=== PATIENT | female | born 1960 | race Caucasian/White ===

== ENCOUNTER → 2020-02-11 12:58 | Outpatient (BNVA) | payer OTHER, SELFPAY | PROVIDERS: PCP Internal Medicine; Referring Provider Internal Medicine; Visit Provider Physician Assistant | DX: S52.531D Colles' fracture of right radius, subsequent encounter for closed fracture with routine healing (principal) | CPT/HCPCS: 99212 ==

== ENCOUNTER 2020-04-19 11:00 | Outpatient (RCR) | payer OTHER, SELFPAY ==
--- NOTE | 2020-04-19 11:58 | MHC.OT.DC ---
[address] [phone] F: [phone] Occupational Therapy Discharge Note Provider: CORWIN KENDALL PA-C Diagnosis: CR RIGHT RADIUS FX Date of Surgery: Date of Evaluation: 04/03/20 Date of Discharge: Treatments to Date: 6 Cancellations to Date: 0 No Shows to Date: 0 Discharge Status: Patient Elected to Stop Discharge Summary: CONT'D LOCKING OF RIGHT MF. Pt HAS A NIGHT OVAL 8 FOR MF PIPJ FLEXION BLOCK. INSTRUCTED TO FOLLOW UP WITH HER PCP. WRIST STIFF SLOW IMPROVEMENT. LOW PAIN OVERALL AT WRIST AND DIGITS. 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
== END 2020-05-22 12:59 | disposition other institution (70) ==
LOC: HO.OT 11:00
PROVIDERS: Visit Provider Physician Assistant
DX: S52.501D Unspecified fracture of the lower end of right radius, subsequent encounter for closed fracture with routine healing (principal)
CPT/HCPCS: 97035; 97110; 97140; 97165

== ENCOUNTER 2020-04-21 11:39 | Emergency (ER) | payer OTHER, SELFPAY ==
--- NOTE | 2020-04-21 | XR_ITS ---
EXAMINATION: XR ELBOW, LEFT CLINICAL INFORMATION: Left elbow pain. COMPARISON: None TECHNIQUE: AP, lateral, and oblique views of the left elbow. FINDINGS: The bones and soft tissues are normal. No fracture or joint effusion. Alignment is anatomic. Joint spaces are maintained. XR/XR elbow LT min 3V IMPRESSION: Unremarkable left elbow.
[2020-04-21 11:52] VITALS: BP 140/86; PULSE 67; RESP 16; TEMP 36.7; O2SAT 99; BMI 34.0
--- NOTE | 2020-04-21 12:38 | ED_ITS ---
HPI - Extremity Problem General Chief complaint: Extremity Injury, Upper Stated complaint: left elbow pain - fall x 3 days Time Seen by Provider: 04/21/20 12:38 History of Present Illness HPI Narrative: Patient complains of left elbow pain after hitting it on a metal bar several days ago, no numbness no weakness or paresthesias no other injury, pain is mild Related Data Home Medications Medication Instructions Recorded Confirmed alendronate 70 mg tablet 70 mg PO QWEEK 02/05/20 02/05/20 amlodipine 10 mg tablet 10 mg PO DAILY 02/05/20 02/05/20 atorvastatin 20 mg tablet 20 mg PO DAILY 02/05/20 02/05/20 cholecalciferol (vitamin D3) 25 25 mcg PO DAILY 02/05/20 02/05/20 mcg (1,000 unit) tablet cholecalciferol (vitamin D3) 50 50 mcg PO DAILY 02/05/20 02/05/20 mcg (2,000 unit) capsule cyanocobalamin (vitamin B-12) 1,000 mcg SUBLINGUAL DAILY 02/05/20 02/05/20 1,000 mcg sublingual tablet empagliflozin 10 mg tablet 10 mg PO DAILY 02/05/20 02/05/20 fluoxetine 20 mg capsule 20 mg PO DAILY 02/05/20 02/05/20 fluoxetine 40 mg capsule mg PO 02/05/20 02/05/20 fluticasone propionate 50 0 mcg INTRANASAL 02/05/20 02/05/20 mcg/actuation nasal spray,suspension furosemide 20 mg tablet 20 mg PO DAILY 02/05/20 02/05/20 gabapentin 400 mg capsule 0 mg PO 02/05/20 02/05/20 insulin glargine U-300 conc 300 12 unit SUBCUT DAILY 02/05/20 02/05/20 unit/mL (1.5 mL) subcutaneous pen lancets 28 gauge #100 ea 02/05/20 02/05/20 lisinopril 40 mg tablet 40 mg PO DAILY 02/05/20 02/05/20 metoprolol succinate 100 mg 100 mg PO DAILY 02/05/20 02/05/20 tablet,extended release 24 hr naproxen 500 mg tablet 500 mg PO Q12H PRN 02/05/20 02/05/20 omeprazole 20 mg capsule,delayed 20 mg PO DAILY 10/03/20 10/03/20 release oxycodone-acetaminophen 5 mg-325 0 tab PO 02/05/20 02/05/20 mg tablet sitagliptin 50 mg-metformin ER 0 tab PO 02/05/20 02/05/20 1,000 mg tablet,extended release 24h mp trazodone 50 mg tablet 50 mg PO BEDTIME 02/05/20 02/05/20 Previous Rx's Medication Instructions Recorded empagliflozin 12.5 mg-metformin ER 2 tab PO DAILY 30 Days #60 ea 02/09/20 1,000 mg tablet,extended rel 24 hr dulaglutide 1.5 mg/0.5 mL 1.5 mg SUBCUT QWEEK #2 ml 04/03/20 subcutaneous pen injector Allergies Allergy/AdvReac Type Severity Reaction Status Date / Time latex [LATEX] Allergy Mild RASH Verified 02/11/20 13:05 Latex Exam Gloves Allergy Unknown Rash Uncoded 02/05/20 11:34 Review of Systems Review of Systems: Positive for left elbow pain Negatives no dizziness no weakness no fainting no numbness weakness paresthesia no chest pain no headache no neck pain Yes all other systems are reviewed and are negative [facility] Past Medical History Source: nursing notes reviewed Medical History (Updated 04/21/20 @ 13:21 by MADAN Wilson) Chronic kidney disease Diabetes type 2, uncontrolled HTN (hypertension) Surgical History History of carpal tunnel release (~2017) History of section History of total left knee replacement (~2018) History of total left knee replacement (~2010) Hx of cholecystectomy Family History Family History Father Hypertension Diabetes Mother Diabetes Hypertension Heart disease Social History Social History Alcohol intake: never Smoking Status: Never smoker Use of substances other than those prescribed or required for medical reasons: No Advance Directives: No Advance Directives Information Provided: Yes Physical Exam Vital Signs: Vital Signs: Last Vital Signs Temp 98.1 F 04/21/20 11:52 Pulse 67 04/21/20 11:52 Resp 16 04/21/20 11:52 BP 140/86 H 04/21/20 11:52 Pulse Ox 99 04/21/20 11:52 Body Mass Index 34.0 General appearance no distress Normocephalic atraumatic Neck is supple nontender Respiratory no distress Left arm had tenderness with some mild swelling on the dorsal left elbow olecranon area, there is full range of motion, skin is intact there is no redness no warmth and neurovascular intact Skin no rashes Neuro no focal deficit Course Course Course Narrative: Left elbow x-ray is negative and patient is discharged Discharge Plan Discharge Clinical Impression: Contusion of elbow, left Qualifiers: Encounter type: initial encounter Qualified Code(s): S50.02XA - Contusion of left elbow, initial encounter Patient Disposition: Home, Self-Care Additional Instructions: X-ray of the left elbow was normal, should get better on its own in a few days If needed if not getting better follow with orthopedist or your doctor Prescriptions: No Action Synjardy XR 12.5-1,000 mg tablet, IR - ER, biphasic 24hr 2 tab PO DAILY 30 Days Qty: 60 RF: 4 dulaglutide [Trulicity] 1.5 mg/0.5 mL pen injector 1.5 mg subcut QWEEK Qty: 2 RF: 6 fluoxetine 40 mg capsule PO RF: 0 furosemide 20 mg tablet 20 mg PO DAILY RF: 0 Toujeo SoloStar U-300 Insulin 300 unit/mL (1.5 mL) insulin pen 12 unit subcut DAILY RF: 0 cholecalciferol (vitamin D3) 50 mcg (2,000 unit) capsule 50 mcg PO DAILY RF: 0 fluoxetine 20 mg capsule 20 mg PO DAILY RF: 0 cyanocobalamin (vitamin B-12) 1,000 mcg tablet, sublingual 1,000 mcg sublingual DAILY RF: 0 metoprolol succinate 100 mg tablet extended release 24 hr 100 mg PO DAILY RF: 0 Jardiance 10 mg tablet 10 mg PO DAILY RF: 0 Janumet XR 50-1,000 mg tablet, ER multiphase 24 hr 0 tab PO RF: 0 cholecalciferol (vitamin D3) 25 mcg (1,000 unit) tablet 25 mcg PO DAILY RF: 0 fluticasone propionate 50 mcg/actuation spray,suspension 0 mcg intranasal RF: 0 lisinopril 40 mg tablet 40 mg PO DAILY RF: 0 amlodipine 10 mg tablet 10 mg PO DAILY RF: 0 gabapentin 400 mg capsule 0 mg PO RF: 0 alendronate 70 mg tablet 70 mg PO QWEEK RF: 0 trazodone 50 mg tablet 50 mg PO BEDTIME RF: 0 atorvastatin 20 mg tablet 20 mg PO DAILY RF: 0 naproxen 500 mg tablet 500 mg PO Q12H PRN (Reason: pain) RF: 0 oxycodone-acetaminophen 5-325 mg tablet 0 tab PO RF: 0 (DME) lancets 28 gauge misc See Rx Instructions ea topical .MEDSUPPLY Qty: 100 RF: 0 omeprazole 20 mg capsule,delayed release(DR/EC) 20 mg PO DAILY RF: 0 Referrals: InstrJayden don MD [Physician] - 2 days (Left elbow pain)
== END 2020-04-21 13:38 | disposition home or self-care (01) ==
PROVIDERS: Emergency Provider Emergency Medicine Emergency Medical Services; PCP Internal Medicine
DX: S50.02XA Contusion of left elbow, initial encounter (principal); W22.09XA Striking against other stationary object, initial encounter; Y93.9 Activity, unspecified; Y92.9 Unspecified place or not applicable; Y99.9 Unspecified external cause status; E11.22 Type 2 diabetes mellitus with diabetic chronic kidney disease; I12.9 Hypertensive chronic kidney disease with stage 1 through stage 4 chronic kidney disease, or unspecified chronic kidney disease; N18.9 Chronic kidney disease, unspecified; Z79.4 Long term (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 insulin; Z79.899 Other long term (current) drug therapy
CPT/HCPCS: 73080; 99283

== ENCOUNTER 2020-05-09 12:43 | Outpatient (REF) | payer OTHER, SELFPAY ==
--- NOTE | 2020-05-09 | US_ITS ---
EXAMINATION: US THYROID CLINICAL INFORMATION: Nontoxic multinodular goiter. COMPARISON: Ultrasound thyroid soft tissue 03/16/2019. TECHNIQUE: Linear transducer porter-scale and color Doppler examination with attention to the region of the thyroid. FINDINGS: SIZE: Measurements of the thyroid lobes and nodules are given in sagittal, anteroposterior and transverse dimensions respectively. Right Thyroid Lobe: 6.1 x 2.1 x 2.3 cm, volume 15.4 mL. Previously 6.2 x 2.4 x 2.4 cm, volume 18.7 mL. Parenchyma: The gland echotexture is homogeneous. Thyroid vascularity is normal. Left Thyroid Lobe: 6.0 x 2.1 x 2.8 cm, volume 17.9 mL. Previously 6.2 x 1.8 x 2.6 cm, volume 15.2 mL. Parenchyma: The gland echotexture is homogeneous. Thyroid vascularity is normal. Isthmus: 0.4 cm in maximum AP dimension. Previously 0.3 cm. RIGHT THYROID LOBE: There are 4 nodules seen. 1. Location: Upper Size: 0.6 x 0.3 x 0.5 cm. Previous: 0.6 x 0.3 x 0.5 cm. Nodule characteristics: Hypoechoic, smoothly marginated with no intranodular flow, likely simple cyst. 2. Location: Mid Size: 1.3 x 0.7 x 1.3 cm. Previous: 1.4 x 1.0 x 1.6 cm. Nodule characteristics: Hypoechoic, smoothly marginated with intranodular flow, likely complex cyst. 3. Location: Mid Size: 1.0 x 0.9 x 0.9 cm. Previous: 1.5 x 1.2 x 1.7 cm. Nodule characteristics: Hypoechoic, irregular margins with no intranodular flow. 4. Location: Lower Size: 0.7 x 0.6 x 0.6 cm. Previous: 0.6 x 0.5 x 0.6 cm. Nodule characteristics: Heterogenous, irregular margins and no intranodular flow. ISTHMUS: No nodules. LEFT THYROID LOBE: There are 4 nodules seen. 1. Location: Upper Size: 0.8 x 0.5 x 0.5 cm. Previous: 1.0 x 0.5 x 0.7 cm. Nodule characteristics: Heterogeneous, irregular margins with no calcification and no intranodular flow. 2. Location: Upper Size: 2.2 x 1.0 x 1.8 cm. Previous: 1.4 x 0.8 x 1.2 cm. Nodule characteristics: Hypoechoic irregular margins with intranodular flow. 3. Location: Upper Size: 1.0 x 0.5 x 0.8 cm. Previous: None Nodule characteristics: Hypoechoic, irregular shaped with macrocalcifications and intranodular flow. 4. Location: Mid Size: 0.4 x 0.3 x 0.4 cm. Previous: None Nodule characteristics: Hypoechoic, irregular shaped with no intranodular flow. NODES: No lymphadenopathy is seen in the tissue surrounding the thyroid gland. US/US thyroid IMPRESSION: Multinodular thyroid goiter. Complex nodule measuring 2.2 cm in the upper pole right thyroid lobe has slightly increased since the last exam 03/16/2019. It has appearance of complex cyst with central septations. Nodule in the midpole right thyroid lobe has decreased in size from 1.5 cm to 1.0 cm. The rest of the nodules are stable. Recommend continued annual followup.
== END 2020-05-09 12:44 | disposition home or self-care (01) ==
LOC: HO.US 12:43
PROVIDERS: Visit Provider Internal Medicine Endocrinology, Diabetes & Metabolism
DX: E04.2 Nontoxic multinodular goiter (principal)
CPT/HCPCS: 76536

== ENCOUNTER 2020-05-22 13:22 | Outpatient (REF) | payer OTHER, SELFPAY ==
--- NOTE | 2020-05-22 13:25 | US_ITS ---
EXAMINATION: US RETROPERITONEAL LIMITED (RENAL ONLY) CLINICAL INFORMATION: Hematuria, history of stones. COMPARISON: None TECHNIQUE: Real-time imaging of the kidneys. FINDINGS: RIGHT KIDNEY: 10.1 x 4.9 x 5.6 cm (SAG x AP x TRV). The kidney is normal in size, contour, and echogenicity. Renal cortical thickness is normal. No renal calculi or hydronephrosis. There are 2 anechoic cysts seen. The upper pole cyst measures 4.3 x 3.8 x 3.8 cm and a lower pole cyst measures 7.1 x 8.0 x 8.1 cm. There is mild fullness of right kidney. LEFT KIDNEY: 11.7 x 6.0 x 5.3 cm (SAG x AP x TRV). The kidney is normal in size, contour, and echogenicity. Renal cortical thickness is normal. No renal calculi or hydronephrosis. There is a complex upper pole cyst measuring 6.6 x 5.1 x 6.1 cm, a simple upper pole cyst measuring 1.7 x 1.3 x 1.4 cm and a lower pole cyst measuring 3.2 x 3.1 x 3.4 cm. US/US renal BI IMPRESSION: Bilateral renal cysts. There is a complex upper pole left renal cyst. There are no echogenic calculi or hydronephrosis.
== END 2020-05-22 13:23 | disposition home or self-care (01) ==
LOC: HO.US 13:22
PROVIDERS: Visit Provider Physician Assistant
DX: N17.9 Acute kidney failure, unspecified (principal); R31.9 Hematuria, unspecified
CPT/HCPCS: 76775

== ENCOUNTER 2020-07-19 | Outpatient (REF) | payer OTHER, SELFPAY ==
[2020-07-19 11:36] LABS: Glucose, Whole Blood 196 mg/dL (60-115)
[2020-07-19 13:21] LABS: Alanine Aminotransferase 15 U/L (0-31); Albumin Level 4.6 g/dL (3.5-5.0); Alkaline Phosphatase 105 U/L (39-117); Anion Gap 13 (12-20); Aspartate Amino Transferase 13 U/L (5-31); Bilirubin Total 0.5 mg/dL (0.0-1.0); Blood Urea Nitrogen 14 mg/dL (9-16); Calcium 9.7 mg/dL (8.4-10.2); Carbon Dioxide 29 mmol/L (22-29); Chloride 106 mmol/L (96-108); Creatinine Clr Calc Pharmacy 50.3; Estimated Glomerular Filt Rate 45; Glucose Fasting 174 mg/dL (60-99); Potassium 4.2 mmol/L (3.3-5.1); Sodium 144 mmol/L (135-145); Total Protein 7.5 g/dL (6.5-8.0)
[2020-07-19 14:28] LABS: Vitamin B12 215 pg/mL (200-900)
[2020-07-20 13:16] LABS: LDL Cholesterol Direct 116 mg/dL (<100)
[2020-07-24 11:18] LABS: Immunoglobulin A 209
[2020-07-24 11:22] LABS: Transglutaminase Ab IgG 1
[2020-07-27 11:49] LABS: Endomysial IgA Antibody NEGATIVE
== END 2020-07-19 00:01 | disposition home or self-care (01) ==
LOC: HO.LAB
PROVIDERS: Visit Provider Internal Medicine Endocrinology, Diabetes & Metabolism
DX: E11.65 Type 2 diabetes mellitus with hyperglycemia (principal)
CPT/HCPCS: 36415; 80053; 81382; 82306; 82607; 82784; 82947; 83516; 83721; 86255; 86256

== ENCOUNTER → 2020-07-19 10:50 | Outpatient (BNVA) | payer OTHER, SELFPAY | PROVIDERS: PCP Internal Medicine; Visit Provider Internal Medicine Endocrinology, Diabetes & Metabolism | DX: E11.65 Type 2 diabetes mellitus with hyperglycemia (principal); E11.42 Type 2 diabetes mellitus with diabetic polyneuropathy; Z79.4 Long term (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 insulin; E78.5 Hyperlipidemia, unspecified; E04.2 Nontoxic multinodular goiter; E66.9 Obesity, unspecified; E53.8 Deficiency of other specified B group vitamins; I10 Essential (primary) hypertension | CPT/HCPCS: 36415; 80053; 82947; 99212 ==

== ENCOUNTER → 2020-08-09 11:22 | Outpatient (BNVA) | payer OTHER, SELFPAY | PROVIDERS: PCP Internal Medicine; Visit Provider Internal Medicine Endocrinology, Diabetes & Metabolism | DX: Z13.89 Encounter for screening for other disorder (principal) | CPT/HCPCS: Q3014 ==

== ENCOUNTER 2020-08-10 08:17 | Outpatient (REF) | payer OTHER, SELFPAY ==
--- NOTE | 2020-08-10 09:07 | P.BOP_ITS ---
Brief Operative Note Date of Service: 08/10/20 Pre-op diagnosis: NONTOXIC MULTINODULAR GOITER Post-op diagnosis: same Procedure: This procedure was explained to the patient. Alternatives, risks and benefits were discussed. Written consent was obtained. After sterile preparation of the skin, fine-needle aspiration biopsy of left mid to upper pole thyroid nodule size 2.2 x 1.0 x 1.8 cm was performed under direct ultrasound guidance to confirm accurate needle placement. Two initial passes were performed with 25 gauge needles. 1 mL of dark chocolate like color was aspirated, the nodule decreased in size significantly. Two extra passes with 27 gauge needles were performed. Sample was submitted to cytology, initial cytology reading was adequate. 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 Patient tolerated procedure well. Aftercare instructions were provided. Impression: uncomplicated fine-needle aspiration biopsy of left mid to upper pole thyroid nodule under direct ultrasound guidance. Surgeon: Ney Grayson MD Anesthesia: local (Lidocaine 1 % 1 ml) Estimated blood loss (mL): 0 Condition: stable Disposition: same day
[2020-08-10] MEDS: Lidocaine HCl 1 % MPF 5 ML VIAL SUBCUT (09:19)
== END 2020-08-10 08:18 | disposition home or self-care (01) ==
LOC: HO.US 08:17
PROVIDERS: Visit Provider Internal Medicine Endocrinology, Diabetes & Metabolism
DX: E04.2 Nontoxic multinodular goiter (principal)
CPT/HCPCS: 10005; 88172; 88173; 88177; 88305

== ENCOUNTER → 2020-08-22 07:59 | Outpatient (BNVA) | payer OTHER, SELFPAY | PROVIDERS: PCP Internal Medicine; Visit Provider Surgery | DX: Z01.818 Encounter for other preprocedural examination (principal); E66.9 Obesity, unspecified; R06.02 Shortness of breath; Z68.36 Body mass index [BMI] 36.0-36.9, adult | CPT/HCPCS: 99212 ==

== ENCOUNTER 2020-08-23 08:10 | Outpatient (REF) | payer OTHER, SELFPAY ==
--- NOTE | ~2020-08-23 | XR_ITS ---
EXAMINATION: XR CHEST CLINICAL INFORMATION: Shortness of breath COMPARISON: Chest 04/14/2018 TECHNIQUE: 2 views of the chest were obtained. FINDINGS: The lungs are hypoexpanded but clear of acute pneumonic process. Heart size and vascularity is normal. No gross bony abnormality seen. XR/XR chest 2V IMPRESSION: Normal chest exam. No major change from 08/23/2020
--- NOTE | 2020-08-23 08:18 | ECG_ITS ---
Test Reason : SOB Blood Pressure : / mmHG Vent. Rate : 065 BPM Atrial Rate : 065 BPM P-R Int : 146 ms QRS Dur : 088 ms QT Int : 428 ms P-R-T Axes : 054 -08 021 degrees QTc Int : 445 ms Normal sinus rhythm Normal ECG When compared with ECG of 14-APR-2018 10:08, No significant change was found Referred By: Shalonda Lockwood Electronically Signed By:Beck Amaya
[2020-08-23 08:50] LABS: MANUAL DIFF FLAG NO
[2020-08-23 08:53] LABS: Basophils Absolute Auto 0.1 X10*3/uL (0.0-0.2); Basophils Percent Auto 0.6 % (0-2); Eosinophils Absolute Auto 0.3 X10*3/uL (0.0-0.4); Eosinophils Percent Auto 3.7 % (0-4); Hematocrit 41.9 % (37-47); Hemoglobin 13.3 g/dl (12.0-16.0); Imm Gran Abs Auto 0.03 X10*3/uL (0.00-0.03); Imm Gran Pct Auto 0.3 % (0.0-0.4); Lymphocytes Percent Auto 21.6 % (20-40); Mean Corpuscular HGB Conc 31.7 g/dl (31.0-35.0); Mean Corpuscular Hemoglobin 27.4 pg (27.0-33.0); Mean Corpuscular Volume 86.2 fL (80-98); Mean Platelet Volume 12.3 fL (9.4-12.3); Monocytes Percent Auto 10.7 % (2-11); Neutrophils Absolute Auto 5.7 X10*3/uL (2.0-8.3); Neutrophils Percent Auto 63.1 % (45-73); Platelet Count 231 X10*3/uL (160-400); Red Blood Count 4.86 X10*6/uL (4.20-5.50)
[2020-08-23 09:21] LABS: Alanine Aminotransferase 15 U/L (0-31); Albumin Level 4.5 g/dL (3.5-5.0); Alkaline Phosphatase 98 U/L (39-117); Anion Gap 16 (12-20); Aspartate Amino Transferase 11 U/L (5-31); Bilirubin Total 0.8 mg/dL (0.0-1.0); Blood Urea Nitrogen 18 mg/dL (9-16); C Reactive Protein 0.14 mg/dL (< or = 0.50); Calcium 9.6 mg/dL (8.4-10.2); Carbon Dioxide 24 mmol/L (22-29); Chloride 108 mmol/L (96-108); Cholesterol 156 mg/dL; Estimated Glomerular Filt Rate 44; Glucose Fasting 170 mg/dL (60-99); HDL Cholesterol 44 mg/dL; Iron 52 mcg/dL (30-160); LDL Cholesterol Calculated 76 mg/dl; Percent Iron Saturation 13 % (15-50); Potassium 4.2 mmol/L (3.3-5.1); Sodium 144 mmol/L (135-145); Total Iron Binding Capacity 391 mcg/dL (228-428); Total Protein 7.2 g/dL (6.5-8.0); Triglycerides 181 mg/dL; Unsaturated Iron Binding 339 ug/dL
[2020-08-23 09:33] LABS: Estimated Average Glucose 163 mg/dL; Hemoglobin A1c % 7.3 %
[2020-08-23 09:41] LABS: Vitamin D 25-OH Total 39.5 ng/mL (>30)
[2020-08-23 10:05] LABS: Vitamin B12 380 pg/mL (200-900)
[2020-08-25 13:46] LABS: Calcium (PTHI) 9.7 mg/dL (8.6-10.4); PTHI 60 pg/mL (14-64)
[2020-08-26 07:02] LABS: Zinc 103 mcg/dL (60-130)
[2020-08-27 12:01] LABS: Vitamin B1 11 nmol/L (8-30)
[2020-08-28 14:57] LABS: Vitamin A 86 mcg/dL (38-98)
== END 2020-08-23 08:11 | disposition home or self-care (01) ==
LOC: HO.LAB 08:10
PROVIDERS: PCP Internal Medicine; Visit Provider Surgery
DX: Z01.818 Encounter for other preprocedural examination (principal); R06.02 Shortness of breath; K91.2 Postsurgical malabsorption, not elsewhere classified; Z90.3 Acquired absence of stomach [part of]
CPT/HCPCS: 36415; 71046; 80053; 80061; 82306; 82607; 83036; 83540; 83970; 84425; 84443; 84590; 84630; 85025; 86140; 93005

== ENCOUNTER → 2020-08-28 12:32 | Outpatient (BNVA) | payer OTHER, SELFPAY | PROVIDERS: PCP Internal Medicine; Visit Provider Internal Medicine Endocrinology, Diabetes & Metabolism | DX: E11.65 Type 2 diabetes mellitus with hyperglycemia (principal); E11.42 Type 2 diabetes mellitus with diabetic polyneuropathy; Z79.4 Long term (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 insulin; E78.5 Hyperlipidemia, unspecified; E04.2 Nontoxic multinodular goiter; E66.9 Obesity, unspecified; E53.8 Deficiency of other specified B group vitamins | CPT/HCPCS: 99212 ==

== ENCOUNTER → 2020-09-05 08:05 | Outpatient (BNVA) | payer OTHER, SELFPAY | PROVIDERS: PCP Internal Medicine; Visit Provider Surgery ==

== ENCOUNTER → 2020-09-07 08:11 | Outpatient (BNVA) | payer OTHER, SELFPAY | PROVIDERS: PCP Internal Medicine; Visit Provider Surgery ==

== ENCOUNTER → 2020-09-11 14:47 | Outpatient (BNVA) | payer OTHER, SELFPAY | PROVIDERS: PCP Internal Medicine; Visit Provider Surgery | DX: E66.9 Obesity, unspecified (principal); Z68.35 Body mass index [BMI] 35.0-35.9, adult; Z71.3 Dietary counseling and surveillance | CPT/HCPCS: 99212 ==

== ENCOUNTER → 2020-09-19 09:39 | Outpatient (BNVA) | payer OTHER, SELFPAY | PROVIDERS: PCP Internal Medicine; Visit Provider Dietitian, Registered | DX: E66.9 Obesity, unspecified (principal); Z68.35 Body mass index [BMI] 35.0-35.9, adult | CPT/HCPCS: 97802 ==

== ENCOUNTER 2020-09-20 08:03 | Outpatient (REF) | payer OTHER, SELFPAY ==
[2020-09-21 13:57] LABS: H Pylori Breath Test NOT DETECTED (NOT DETECTED)
== END 2020-09-20 08:04 | disposition home or self-care (01) ==
LOC: HO.LNP 08:03
PROVIDERS: Surgery; PCP Internal Medicine; Visit Provider Physician Assistant
DX: Z01.818 Encounter for other preprocedural examination (principal)
CPT/HCPCS: 83013; 99211

== ENCOUNTER → 2020-09-29 08:50 | Outpatient (BNVA) | payer OTHER, SELFPAY | PROVIDERS: PCP Internal Medicine; Visit Provider Physician Assistant | DX: E66.9 Obesity, unspecified (principal); Z68.34 Body mass index [BMI] 34.0-34.9, adult; Z71.3 Dietary counseling and surveillance | CPT/HCPCS: Q3014 ==

== ENCOUNTER → 2020-10-12 12:14 | Outpatient (BNVA) | payer OTHER, SELFPAY | PROVIDERS: PCP Internal Medicine; Visit Provider Physician Assistant ==

== ENCOUNTER 2020-10-27 12:46 | Emergency (ER) | payer OTHER, SELFPAY ==
--- NOTE | ~2020-10-27 | XR_ITS ---
EXAMINATION: XR FOOT, RIGHT CLINICAL INFORMATION: Pain. Trauma. COMPARISON: None TECHNIQUE: AP, lateral, and oblique views of the right foot. FINDINGS: There is question of a nondisplaced fracture through the proximal phalanx of the fifth toe. No other fracture is seen. Joint spaces are normal. There is a small soft tissue calcification or ossification adjacent to the lateral proximal phalanx of the fifth toe. There are calcaneal spurs. XR/XR foot RT min 3V IMPRESSION: Question nondisplaced fracture through the proximal phalanx of the fifth toe.
[2020-10-27 13:17] VITALS: BP 144/85; PULSE 78; RESP 16; TEMP 36.4; O2SAT 100; BMI 34.0
--- NOTE | 2020-10-27 13:54 | ED_ITS ---
HPI - Extremity Injury (Lower) General Chief Complaint: Extremity Injury, Lower Stated Complaint: TOE INJ Time Seen by Provider: 10/27/20 13:54 Source: patient and family Mode of arrival: ambulatory Limitations: no limitations History of Present Illness HPI Narrative: 60 y/o female presenting with right pinky toe and lateral foot pain after she accidentally kicked a chair this morning. Pain is worse with palpation and when walking. No ankle injury. No lacerations or abrasions. She denies numbness or tingling. Minimal pain when at rest, only with movement of touching it. complaint: foot injury Onset (ago): hour(s) Injury: Right: foot and toes Type of Injury: blunt Place: home Severity: moderate Relieving factors: immobilization and rest Exacerbating factors: weight bearing, movement and palpation Context: direct blow Associated symptoms: able to partially bear weight Other symptoms: none Treatments prior to arrival: cold therapy Related Data Home Medications Medication Instructions Recorded Confirmed alendronate 70 mg tablet 70 mg PO QWEEK 02/05/20 09/11/20 amlodipine 10 mg tablet 10 mg PO DAILY 02/05/20 09/11/20 atorvastatin 20 mg tablet 20 mg PO DAILY 02/05/20 09/11/20 fluoxetine 20 mg capsule 20 mg PO DAILY 02/05/20 09/11/20 furosemide 20 mg tablet 20 mg PO DAILY 02/05/20 09/11/20 lisinopril 40 mg tablet 40 mg PO DAILY 02/05/20 09/11/20 metoprolol succinate 100 mg 100 mg PO DAILY 02/05/20 09/11/20 tablet,extended release 24 hr naproxen 500 mg tablet 500 mg PO Q12H PRN 02/05/20 09/11/20 omeprazole 20 mg capsule,delayed 20 mg PO DAILY 02/05/20 09/11/20 release trazodone 50 mg tablet 50 mg PO BEDTIME 02/05/20 09/11/20 fluticasone propionate 50 1 spray INTRANASAL PRN g 07/19/20 09/11/20 mcg/actuation nasal spray,suspension gabapentin 400 mg capsule 400 mg PO DAILY cap 07/19/20 09/11/20 lorazepam 0.5 mg tablet 0.5 mg PO DAILY PRN 07/19/20 09/11/20 oxycodone-acetaminophen 5 mg-325 1 tab PO Q6H PRN tab 08/22/20 09/11/20 mg tablet Previous Rx's Medication Instructions Recorded cholecalciferol (vitamin D3) 50 50 mcg PO DAILY #30 cap 08/28/20 mcg (2,000 unit) capsule cyanocobalamin (vitamin B-12) 1,000 mcg SUBLINGUAL DAILY 30 Days 08/28/20 1,000 mcg sublingual tablet #30 tab dulaglutide 1.5 mg/0.5 mL 1.5 mg SUBCUT QWEEK #2 ml 08/28/20 subcutaneous pen injector empagliflozin 12.5 mg-metformin ER 2 tab PO DAILY 30 Days #60 ea 08/28/20 1,000 mg tablet,extended rel 24 hr insulin glargine U-300 conc 300 12 unit SUBCUT DAILY 30 Days #1.5 08/28/20 unit/mL (1.5 mL) subcutaneous pen ml lancets 28 gauge #100 ea 08/28/20 Allergies Allergy/AdvReac Type Severity Reaction Status Date / Time latex [LATEX] Allergy Mild RASH Verified 09/11/20 15:53 Latex Exam Gloves Allergy Unknown Rash Uncoded 09/11/20 15:53 Review of Systems Review of Systems: Constitutional: No Fever, No Chills Musculoskeletal: + joint pain, No Myalgias Skin: No Skin Lesions, No rash Neuro: No Weakness, No Numbness Heme/Lymph: No Bruising PMFSH Past Medical History Attestation statement: The following information was validated with the patient. 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 Sister No problems noted. Brother Hypertension Diabetes Brother No problems noted. Son Hypertension Prediabetes Heart disease Daughter Prediabetes Social History Social History (Updated 09/11/20 @ 15:54 by Shalonda Lockwood MD) Alcohol intake: never Advance Directives: Yes Advance Directives Information Provided: Yes Advance Directives on File: No Patient : No Physical Exam Vital Signs: Vital Signs: Last Vital Signs Temp 97.5 F 10/27/20 13:17 Pulse 78 10/27/20 13:17 Resp 16 10/27/20 13:17 BP 144/85 H 10/27/20 13:17 Pulse Ox 100 10/27/20 13:17 Body Mass Index 34.0 Appearance: Alert. Oriented X3. No acute distress. HEENT: normal inspection CVS: Normal heart rate and rhythm. Pulses normal. Respiratory: No respiratory distress. Skin: Skin warm and dry. Normal skin color. Normal skin turgor. No rashes. Extremities: normal inspection of right foot, tenderness to tarsal of 5th digit. pain with movement of 5th digit. able to move all toes against gravity. NV intact distally. no point tenderness or deformity appreciated. no skin changes or abrasions Neuro: Oriented X 3. No motor deficit. No sensory deficit. Course Course Course Narrative: 60 y/o female presenting with right 5ht toe and distal lateral foot pain s/p kicking a chair. XR show possible nondisplaced proximal phalanx fracture of 5th toe. Placed in ANDERSON wrap and post-op boot for support. Recommend rest, ice, WBAT, and f/u with Ortho. Patient agrees with plan. Stable for d/c home. Critical Care Time Critical Care Time Critical Care Time: No Discharge Plan Discharge Clinical Impression: Fracture of proximal phalanx of toe of right foot Patient Disposition: Home, Self-Care Instructions: Foot Fracture in Adults (ED) Additional Instructions: Your x-ray showed a mild fracture of the outer bone of your foot. You may bear weight as tolerated. Recommend ice and elevation. Wear the post-op shoe and ANDERSON wrap as needed for support. Take Motrin 600 mg every 8 hours and/or Tylenol 975 mg every 6 hours as needed for pain. Follow up with Orthopedics in 1 week. Prescriptions: No Action lorazepam 0.5 mg tablet 0.5 mg PO DAILY PRNRF: 0 cholecalciferol (vitamin D3) 50 mcg (2,000 unit) capsule 50 mcg PO DAILY Qty: 30 RF: 6 cyanocobalamin (vitamin B-12) 1,000 mcg tablet, sublingual 1,000 mcg sublingual DAILY 30 Days Qty: 30 RF: 6 Trulicity 1.5 mg/0.5 mL pen injector 1.5 mg subcut QWEEK Qty: 2 RF: 6 Synjardy XR 12.5-1,000 mg tablet, IR - ER, biphasic 24hr 2 tab PO DAILY 30 Days Qty: 60 RF: 6 insulin glargine U-300 conc 300 unit/mL (1.5 mL) insulin pen 12 unit subcut DAILY 30 Days Qty: 1.5 RF: 6 (DME) lancets 28 gauge misc See Rx Instructions ea topical .MEDSUPPLY Qty: 100 RF: 6 furosemide 20 mg tablet 20 mg PO DAILY RF: 0 fluoxetine 20 mg capsule 20 mg PO DAILY RF: 0 metoprolol succinate 100 mg tablet extended release 24 hr 100 mg PO DAILY RF: 0 lisinopril 40 mg tablet 40 mg PO DAILY RF: 0 amlodipine 10 mg tablet 10 mg PO DAILY RF: 0 alendronate 70 mg tablet 70 mg PO QWEEK RF: 0 trazodone 50 mg tablet 50 mg PO BEDTIME RF: 0 atorvastatin 20 mg tablet 20 mg PO DAILY RF: 0 naproxen 500 mg tablet 500 mg PO Q12H PRN (Reason: pain) RF: 0 omeprazole 20 mg capsule,delayed release(DR/EC) 20 mg PO DAILY RF: 0 fluticasone propionate 50 mcg/actuation spray,suspension 1 spray intranasal PRN (Reason: nasal congestion) RF: 0 gabapentin 400 mg capsule 400 mg PO DAILY RF: 0 oxycodone-acetaminophen 5-325 mg tablet 1 tab PO Q6H PRNRF: 0 Referrals: Stephon Olguin MD [Physician] - 1 week (proximal phalanx fracture 5th toe) Print Language: Azeri
== END 2020-10-27 14:54 | disposition home or self-care (01) ==
PROVIDERS: Emergency Provider Emergency Medicine; PCP Internal Medicine
DX: S92.514A Nondisplaced fracture of proximal phalanx of right lesser toe(s), initial encounter for closed fracture (principal); E11.22 Type 2 diabetes mellitus with diabetic chronic kidney disease; I12.9 Hypertensive chronic kidney disease with stage 1 through stage 4 chronic kidney disease, or unspecified chronic kidney disease; N18.9 Chronic kidney disease, unspecified; E66.9 Obesity, unspecified; Z68.35 Body mass index [BMI] 35.0-35.9, adult; Z79.4 Long term (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 insulin; Z79.899 Other long term (current) drug therapy; W22.03XA Walked into furniture, initial encounter; Y93.9 Activity, unspecified; Y92.009 Unspecified place in unspecified non-institutional (private) residence as the place of occurrence of the external cause; Y99.9 Unspecified external cause status
CPT/HCPCS: 73630; 99212; 99283; 99284

== ENCOUNTER → 2020-11-10 09:52 | Outpatient (BNVA) | payer OTHER, SELFPAY | PROVIDERS: PCP Internal Medicine; Visit Provider Internal Medicine Endocrinology, Diabetes & Metabolism | DX: E11.65 Type 2 diabetes mellitus with hyperglycemia (principal); E11.42 Type 2 diabetes mellitus with diabetic polyneuropathy; E78.5 Hyperlipidemia, unspecified; E04.2 Nontoxic multinodular goiter; E66.9 Obesity, unspecified; E53.8 Deficiency of other specified B group vitamins; I10 Essential (primary) hypertension; Z79.4 Long term (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 insulin | CPT/HCPCS: 82947; 99212 ==

== ENCOUNTER → 2020-11-21 08:06 | Outpatient (BNVA) | payer OTHER, SELFPAY | PROVIDERS: PCP Internal Medicine; Visit Provider Physician Assistant ==

== ENCOUNTER → 2020-11-27 14:06 | Outpatient (BNVA) | payer OTHER, SELFPAY | PROVIDERS: PCP Internal Medicine; Referring Provider Internal Medicine; Visit Provider Physician Assistant | DX: E66.9 Obesity, unspecified (principal); Z68.35 Body mass index [BMI] 35.0-35.9, adult | CPT/HCPCS: 99212 ==

== ENCOUNTER → 2020-12-12 14:51 | Outpatient (BNVA) | payer OTHER, SELFPAY | PROVIDERS: PCP Internal Medicine; Visit Provider Surgery | DX: E66.9 Obesity, unspecified (principal); Z68.34 Body mass index [BMI] 34.0-34.9, adult | CPT/HCPCS: 99212 ==

== ENCOUNTER → 2021-01-10 09:20 | Outpatient (BNVA) | payer OTHER, SELFPAY | PROVIDERS: PCP Internal Medicine; Referring Provider Internal Medicine; Visit Provider Physician Assistant ==

== ENCOUNTER → 2021-01-16 09:57 | Outpatient (BNVA) | payer OTHER, SELFPAY | PROVIDERS: PCP Internal Medicine; Visit Provider Surgery | DX: E66.9 Obesity, unspecified (principal); Z68.34 Body mass index [BMI] 34.0-34.9, adult | CPT/HCPCS: 99212 ==

== ENCOUNTER 2021-01-23 | Outpatient (REF) | payer OTHER, SELFPAY ==
[2021-01-23 11:10] VITALS: BP 126/74; PULSE 67; RESP 16; O2SAT 98; BMI 34.9
[2021-01-23 12:16] LABS: MANUAL DIFF FLAG NO
[2021-01-23 12:24] LABS: Appearance Urine CLEAR; Color Urine YELLOW; Glucose Urine UA >=1000 MG/DL (NEG); Leukocyte Esterase Urine NEG (NEG); Nitrite Urine NEG (NEG); PH 5.5 (5.0-8.0); Specific Gravity - Urine 1.015 (1.005-1.025); Urine Blood NEG (NEG); Urine Ketones NEG (NEG); Urine Protein NEG (NEG-TRACE)
[2021-01-23 12:27] LABS: Partial Thromboplastin Time 33.9 SEC (24.1-38.0)
[2021-01-23 12:31] LABS: Basophils Absolute Auto 0.1 X10*3/uL (0.0-0.2); Basophils Percent Auto 0.7 % (0-2); Eosinophils Absolute Auto 0.3 X10*3/uL (0.0-0.4); Eosinophils Percent Auto 2.8 % (0-4); Estimated Average Glucose 169 mg/dL; Hematocrit 42.5 % (37-47); Hemoglobin 13.3 g/dl (12.0-16.0); Hemoglobin A1c % 7.5 %; Imm Gran Abs Auto 0.03 X10*3/uL (0.00-0.03); Imm Gran Pct Auto 0.3 % (0.0-0.4); Lymphocytes Absolute Auto 3.2 X10*3/uL (1.2-4.9); Lymphocytes Percent Auto 30.2 % (20-40); Mean Corpuscular HGB Conc 31.3 g/dl (31.0-35.0); Mean Corpuscular Hemoglobin 27.4 pg (27.0-33.0); Mean Corpuscular Volume 87.4 fL (80-98); Mean Platelet Volume 12.1 fL (9.4-12.3); Monocytes Percent Auto 9.4 % (2-11); Neutrophils Percent Auto 56.6 % (45-73); Platelet Count 310 X10*3/uL (160-400); Red Blood Count 4.86 X10*6/uL (4.20-5.50); White Blood Count 10.5 X10*3/uL (4.8-10.8)
[2021-01-23 12:39] LABS: Albumin Level 4.9 g/dL (3.5-5.0); Anion Gap 17 (12-20); Blood Urea Nitrogen 62 mg/dL (9-16); Calcium 10.4 mg/dL (8.4-10.2); Carbon Dioxide 26 mmol/L (22-29); Chloride 104 mmol/L (96-108); Creatinine Clr Calc Pharmacy 24.7; Estimated Glomerular Filt Rate 21; Glucose Random 126 mg/dL (60-115); Sodium 142 mmol/L (135-145)
[2021-01-23 13:01] LABS: RBC Urine 0 /HPF (0); Squamous Epithelial Cell Urine TRACE /LPF; WBC Urine 0-2 /HPF (0-4)
--- NOTE | 2021-01-23 13:37 | HO.ANESPROP2 ---
HPI - Anesthesia Eval Consult details Narrative: 60yo F for Gastrectomy Sleeve CKD with BUN/Creat increasing from August (18/1.4) to January (62/2.4). T/C to renal for recommendations for surgery. Spoke with renal provider MADAN Hidalgo 01/23/21 @ 1486. Will not clear for surgery without further renal work up. Will get patient into the office for visit and further labs this week and forward results/note when cleared. 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 Sister No problems noted. Brother Hypertension Diabetes Brother No problems noted. Son Hypertension Prediabetes Heart disease Daughter Prediabetes Surgical History Surgical History History of carpal tunnel release (~2017) History of section History of partial hysterectomy History of total left knee replacement (~2018) History of total left knee replacement (~2010) History of total right knee replacement Hx of cholecystectomy Social History Social History Are you a primary home care specialist to a significant other at home: No Do you presently have visiting nurse or other home services: No Alcohol intake: never Patient Tobacco Use Status: Never used Tobacco Meds Allergies Allergy/AdvReac Type Severity Reaction Status Date / Time latex [LATEX] Allergy Mild RASH Verified 01/22/21 16:24 Home Medications Medication Instructions Recorded Confirmed Last Taken Type alendronate 70 mg tablet 70 mg PO QWEEK 02/05/20 01/22/21 Unknown History amlodipine 10 mg tablet 10 mg PO DAILY 02/05/20 01/22/21 Unknown History atorvastatin 20 mg tablet 20 mg PO DAILY 02/05/20 01/22/21 Unknown History fluoxetine 20 mg capsule 20 mg PO DAILY 02/05/20 01/22/21 Unknown History furosemide 20 mg tablet 20 mg PO DAILY 02/05/20 01/22/21 Unknown History lisinopril 40 mg tablet 40 mg PO DAILY 02/05/20 01/22/21 Unknown History metoprolol succinate 100 mg 100 mg PO DAILY 02/05/20 01/22/21 Unknown History tablet,extended release 24 hr omeprazole 20 mg capsule,delayed 20 mg PO DAILY 02/05/20 01/22/21 Unknown History release fluticasone propionate 50 1 spray INTRANASAL DAILY PRN g 07/19/20 01/22/21 Unknown History mcg/actuation nasal spray,suspension gabapentin 400 mg capsule 400 mg PO BEDTIME cap 07/19/20 01/22/21 Unknown History lorazepam 0.5 mg tablet 0.5 mg PO DAILY PRN 07/19/20 01/22/21 Unknown History insulin glargine U-300 conc 300 10 unit SUBCUT BEDTIME ml 11/27/20 01/22/21 Unknown History unit/mL (1.5 mL) subcutaneous pen Exam Exam Date and Time: January 23, 2021 1337 Height,Weight and Vital Signs: Height 5 ft 1 in Weight 83.915 kg Last Vital Signs Pulse 67 01/23/21 11:10 Resp 16 01/23/21 11:10 BP 126/74 01/23/21 11:10 Pulse Ox 98 01/23/21 11:10 Pertinent Lab Results Pertinent Lab Results: Laboratory Tests 01/23/21 01/23/21 01/23/21 11:40 11:40 11:40 WBC 10.5 RBC 4.86 Hgb 13.3 Hct 42.5 MCV 87.4 MCH 27.4 MCHC 31.3 RDW 13.0 Plt Count 310 D MPV 12.1 Immature Gran % (Auto) 0.3 Neut % (Auto) 56.6 Lymph % (Auto) 30.2 [place] % (Auto) 9.4 Eos % (Auto) 2.8 Baso % (Auto) 0.7 Lymph # (Auto) 3.2 [place] # (Auto) 1.0 Eos # (Auto) 0.3 Baso # (Auto) 0.1 Abs Immat Gran (auto) 0.03 Absolute Neuts (auto) 6.0 Absolute Nucleated RBC 0.000 Nucleated RBC % (auto) 0.0 PT 11.0 INR 1.0 APTT 33.9 Sodium 142 Potassium 5.0 Chloride 104 Carbon Dioxide 26 Anion Gap 17 BUN 62 H D Creatinine 2.41 H Estim Creat Clear Calc 24.7 Estimated GFR 21 Random Glucose 126 H Estimat Average Glucose Hemoglobin A1c % Calcium 10.4 H D Albumin 4.9 Urine Color Urine Appearance Urine pH Ur Specific [place] Urine Protein Urine Glucose (UA) Urine Ketones Urine Blood Urine Nitrite Ur Leukocyte Esterase Urine RBC Urine WBC Ur Squamous Epith Cells Urine Bacteria 01/23/21 01/23/21 11:40 11:58 WBC RBC Hgb Hct MCV MCH MCHC RDW Plt Count MPV Immature Gran % (Auto) Neut % (Auto) Lymph % (Auto) [place] % (Auto) Eos % (Auto) Baso % (Auto) Lymph # (Auto) [place] # (Auto) Eos # (Auto) Baso # (Auto) Abs Immat Gran (auto) Absolute Neuts (auto) Absolute Nucleated RBC Nucleated RBC % (auto) PT INR APTT Sodium Potassium Chloride Carbon Dioxide Anion Gap BUN Creatinine Estim Creat Clear Calc Estimated GFR Random Glucose Estimat Average Glucose 169 Hemoglobin A1c % 7.5 Calcium Albumin Urine Color YELLOW Urine Appearance CLEAR Urine pH 5.5 Ur Specific [place] 1.015 Urine Protein NEG Urine Glucose (UA) >=1000 H Urine Ketones NEG Urine Blood NEG Urine Nitrite NEG Ur Leukocyte Esterase NEG Urine RBC 0 Urine WBC 0-2 Ur Squamous Epith Cells TRACE Urine Bacteria Not Reportable Narrative Narrative: EKG 08/2020 Vent. Rate : 065 BPM ? ? Atrial Rate : 065 BPM ?? P-R Int : 146 ms? QRS Dur : 088 ms ? ? QT Int : 428 ms ? ? ? P-R-T Axes : 054 -08 021 degrees ?? QTc Int : 445 ms ? Normal sinus rhythm Normal ECG When compared with ECG of 14-APR-2018 10:08, No significant change was found Assessment and Plan Assessment Anesthesia Assessment: Chart Reviewed
== END 2021-01-23 00:01 | disposition home or self-care (01) ==
LOC: HO.LAB
PROVIDERS: PCP Internal Medicine; Visit Provider Surgery
DX: Z53.09 Procedure and treatment not carried out because of other contraindication (principal); E66.9 Obesity, unspecified; E11.65 Type 2 diabetes mellitus with hyperglycemia; E11.42 Type 2 diabetes mellitus with diabetic polyneuropathy; E11.22 Type 2 diabetes mellitus with diabetic chronic kidney disease; I12.9 Hypertensive chronic kidney disease with stage 1 through stage 4 chronic kidney disease, or unspecified chronic kidney disease; N18.9 Chronic kidney disease, unspecified; E78.5 Hyperlipidemia, unspecified; E04.2 Nontoxic multinodular goiter; E53.8 Deficiency of other specified B group vitamins; R06.02 Shortness of breath; Z68.36 Body mass index [BMI] 36.0-36.9, adult; Z83.3 Family history of diabetes mellitus; Z82.49 Family history of ischemic heart disease and other diseases of the circulatory system; Z80.51 Family history of malignant neoplasm of kidney; Z79.4 Long term (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 insulin; Z79.899 Other long term (current) drug therapy
CPT/HCPCS: 36415; 80048; 81001; 82040; 83036; 85025; 85610; 85730; 86850; 86900; 86901

== ENCOUNTER → 2021-01-23 08:26 | Outpatient (BNVA) | payer OTHER, SELFPAY | PROVIDERS: PCP Internal Medicine; Visit Provider Physician Assistant Surgical | DX: E66.9 Obesity, unspecified (principal); Z68.35 Body mass index [BMI] 35.0-35.9, adult | CPT/HCPCS: 99212 ==

== ENCOUNTER → 2021-02-09 07:09 | Outpatient (BNVA) | payer OTHER, SELFPAY | PROVIDERS: PCP Internal Medicine; Referring Provider Internal Medicine; Visit Provider Surgery | DX: E66.9 Obesity, unspecified (principal); I10 Essential (primary) hypertension; E11.65 Type 2 diabetes mellitus with hyperglycemia; Z68.35 Body mass index [BMI] 35.0-35.9, adult | CPT/HCPCS: 99212 ==

== ENCOUNTER → 2021-02-21 09:41 | Outpatient (BNVA) | payer OTHER, SELFPAY | PROVIDERS: PCP Internal Medicine; Visit Provider Physician Assistant ==

== ENCOUNTER 2021-03-09 09:08 | Outpatient (REF) | payer OTHER, SELFPAY ==
--- NOTE | ~2021-03-09 | FL_ITS ---
EXAMINATION: XR GI SERIES CLINICAL INFORMATION: Obesity COMPARISON: None TECHNIQUE: Fluoroscopic assessment of the upper GI tract was performed in various upright and supine/prone obliquities utilizing thin and thick high density barium contrast material and effervescent granules. FINDINGS: Normal oral bolus control and transfer. Normal posterior tilt of the epiglottis. The esophagus was normal in course, caliber, and contour. There was normal distensibility with no fixed segment of narrowing. No focal mucosal abnormality was identified. No significant esophageal dysmotility was observed. Contrast passed freely across the gastroesophageal junction into the stomach. No significant hiatal hernia. There was normal distensibility of the stomach with no focal abnormality identified. There was prompt gastric emptying into the duodenum which demonstrated a normal appearance. Mild gastroesophageal reflux was observed. FLUOROSCOPY TIME: 1.5 minutes DOSE AREA PRODUCT: 22.325 Gy-cm2 (porter-centimeter squared) FL/FL upper GI series IMPRESSION: Mild gastroesophageal reflux noted. Otherwise normal upper GI examination.
== END 2021-03-09 09:09 | disposition home or self-care (01) ==
LOC: HO.XRAY 09:08
PROVIDERS: Visit Provider Surgery
DX: Z01.818 Encounter for other preprocedural examination (principal); E66.9 Obesity, unspecified; K21.9 Gastro-esophageal reflux disease without esophagitis
CPT/HCPCS: 74240; Q3014

== ENCOUNTER → 2021-03-13 09:43 | Outpatient (REF) | payer OTHER, SELFPAY ==
--- NOTE | ~2021-03-13 | NM_ITS ---
Myocardial perfusion study Indication: Preoperative cardiovascular risk stratification Technique: The patient was brought in for a Lexiscan perfusion study on 03/13/2021. Patient performed low-level exercise and was injected 0.4 mg of Lexiscan intravenously. Within a minute of injection, 30 mCi of sestamibi was given intravenously. Images were obtained using the SPECT gamma camera interlaced with the gating device. Images were obtained in supine position. Resting perfusion study was performed on 03/14/2000. Patient was administered 30 mCi of sestamibi intravenously at rest. Images were then obtained in supine position. Images obtained with and without CT. Total DLP 117 mGy-cm. Images were processed with the software and compared side to side in short axis, horizontal long axis and vertical long axis views. Findings: The stress perfusion study showed nonattenuated images show some thinning of inferolateral and inferior wall of the LV myocardium. Remainder of the LV myocardium is normally perfused. Attenuation corrected images show normalized uptake in the inferior and inferolateral wall of the LV myocardium.. The gated study shows normal LV systolic function with calculated LVEF of 55%. LV cavity is normal in size. The gated study shows normal systolic wall thickening and contraction of segments. Resting study is suboptimal due to intense subdiaphragmatic uptake interfering the basal inferior wall. Study shows normalize uptake in the inferior and inferolateral wall of the nonattenuated images. Attenuation corrected images mildly reduced uptake in the apex of the LV myocardium.. Gating at rest reveals normal systolic wall motion with ejection fraction at 67%. The findings are consistent with likely normal myocardial perfusion with diaphragmatic attenuation of inferior wall noted on nonattenuated images. NM/NM nay perf SPECT rest & str Impression: 1. Myocardial perfusion imaging study shows likely normal myocardial 2. Gated LVEF is 55% 3. Transient ischemic dilatation not present EKG is nondiagnostic for ischemia
--- NOTE | 2021-03-13 09:46 | CA_ITS ---
Acquisition Time: 2021-03-13 10:50:57 Total Exercise Time: 00:02:00 Test Indications: ABN EKG, PREOP Medications: SEE CHART Protocol: LEXISCAN Max HR: 114 BPM 70% of Pred: 161 BPM Max BP: 138/088 mmHG Max Work Load: 1.0 METS Pharmacological stress test with Lexiscan injection, while sitting and kicking her legs, without anginal symptoms, without arrythmia, with normotensive response to injection, with nondiagnostic EKG for ischemia. In recovery she reported lightheadedness that was treated with Aminphylline 75mg IVP to reverse Lexiscan with improvement in symptom. Nuclear images pending. Test reviewed with Dr Beavers. Referred By: Jose L Jackson Overread By: SIMI KAY
== END ==
LOC: HO.CARD 09:43
PROVIDERS: PCP Internal Medicine; Visit Provider Surgery
DX: Z01.818 Encounter for other preprocedural examination (principal); R06.02 Shortness of breath; E11.42 Type 2 diabetes mellitus with diabetic polyneuropathy; E11.65 Type 2 diabetes mellitus with hyperglycemia; E78.5 Hyperlipidemia, unspecified; R07.9 Chest pain, unspecified; I12.9 Hypertensive chronic kidney disease with stage 1 through stage 4 chronic kidney disease, or unspecified chronic kidney disease; N18.9 Chronic kidney disease, unspecified; E11.22 Type 2 diabetes mellitus with diabetic chronic kidney disease
CPT/HCPCS: 78452; 93017; A9500; J2785

== ENCOUNTER → 2021-03-20 11:02 | Outpatient (BNVA) | payer OTHER, SELFPAY | PROVIDERS: PCP Internal Medicine; Referring Provider Internal Medicine; Visit Provider Physician Assistant ==

== ENCOUNTER → 2021-03-27 09:52 | Outpatient (BNVA) | payer OTHER, SELFPAY | PROVIDERS: PCP Internal Medicine; Referring Provider Internal Medicine; Visit Provider Physician Assistant Surgical ==

== ENCOUNTER 2021-04-03 09:04 | Outpatient (REF) | payer OTHER, SELFPAY ==
--- NOTE | ~2021-04-03 | US_ITS ---
EXAMINATION: US COMPLETE ABDOMEN WITH LIVER ELASTOGRAPHY CLINICAL INFORMATION: Obesity COMPARISON: None TECHNIQUE: Real-time imaging of the abdominal viscera. Noninvasive ultrasound liver fibrosis assessment is performed using Carla ElastPQ point quantification shear wave elastography (pSWE) with a C5-2 MHz transducer. Multiple elastography samples are obtained. FINDINGS: PANCREAS: Normal. The visualized pancreatic head and body are normal in appearance. The remainder of the pancreas is obscured from visualization by the overlying bowel gas. ABDOMINAL AORTA: The proximal, middle, and distal aortic segments are normal in caliber. INFERIOR VENA CAVA: Visualized portions are normal. LIVER: Normal. The liver demonstrates normal size, contour and increased echogenicity. No focal lesion or intrahepatic biliary duct dilatation. The right lobe measures 17.8 cm in length. The left lobe measures 7.9 cm in length. Portal flow is hepatopedal. Shear wave liver elastography median stiffness is 1.26 m/s (reference: normal median stiffness is 1.3 m/s or less). IQR/median stiffness to assess sampling precision is 0.10 (reference: good quality data set is IQR/median stiffness of 0.15 or less). GALLBLADDER: Normal. The gallbladder is physiologically distended without evidence of stones, sludge, polyps, wall thickening or pericholecystic fluid. COMMON BILE DUCT: Normal in caliber measuring 1.4 cm in diameter. RIGHT KIDNEY: There is an anechoic cyst in the upper/mid pole measuring 4.1 x 4.3 x 3.8 cm and a moderate-sized cyst in the lower pole measuring 7.5 x 6.3 x 7.0 cm. No hydronephrosis. No renal calculi or focal parenchymal lesions. The kidney measures 14.6 cm in maximum dimension. LEFT KIDNEY: No hydronephrosis. No renal calculi or focal parenchymal lesions. The kidney measures 12.2 cm in maximum dimension. There is a complex cyst upper pole measuring 6.4 x 4.4 x 5.6 cm. A simple cyst is seen in the lower pole measuring 3.9 x 2.9 x 3.0 cm and upper pole measuring 1.0 x 0.8 x 1.2 cm. SPLEEN: Normal. The spleen measures 8.2 cm in maximum dimension. FREE FLUID: None US/US abdomen comp w elastography IMPRESSION: 1. Hepatic steatosis without any focal lesion. Bilateral renal cyst with complex cyst in the upper pole left kidney. 2. Liver elastography: Median liver stiffness 1.26. Suggestive of high probability normal. REFERENCE: Society of Radiologists in Ultrasound Liver Stiffness Thresholds (2020): LIVER STIFFNESS THRESHOLDS: *Liver Stiffness equal or less than 1.3 m/s: High probability of being normal. *Liver Stiffness less than 1.7 m/s: In the absence of other known clinical signs, rules out compensated advanced chronic liver disease. *Liver Stiffness 1.7-2.1 m/s: Suggestive of compensated advanced chronic liver disease but need further test for confirmation. *Liver Stiffness over 2.1 m/s: Rules in compensated advanced chronic liver disease. *Liver Stiffness over 2.4 m/s: Suggestive of clinically significant portal hypertension. QUALITY OF DATA SET: *IQR/Median value equal or less than 0.15 implies a quality data set. *IQR/Median value over 0.15 implies a poor quality data set. SIGNIFICANT CHANGE FROM PRIOR EXAM: Significant change if liver stiffness measurement is 10% or greater from prior exam. OTHER CONSIDERATIONS: The stage of liver fibrosis may be overestimated in the setting of acute hepatitis, liver inflammation, elevated liver function tests, hepatic vascular congestion, obstructive cholestasis, non-fasting state, and infiltrative diseases such as amyloidosis and lymphoma. In some patients with NAFLD, the liver stiffness thresholds for compensated advanced chronic liver disease may be lower. In causes other than viral hepatitis and NAFLD, liver stiffness thresholds are not well established.
== END 2021-04-03 09:05 | disposition home or self-care (01) ==
LOC: HO.US 09:04
PROVIDERS: Visit Provider Surgery
DX: E66.9 Obesity, unspecified (principal)
CPT/HCPCS: 76705; 76981

== ENCOUNTER → 2021-04-11 08:07 | Outpatient (BNVA) | payer OTHER, SELFPAY | PROVIDERS: PCP Internal Medicine; Visit Provider Surgery ==

== ENCOUNTER → 2021-04-19 12:07 | Outpatient (BNVA) | payer OTHER, SELFPAY | PROVIDERS: PCP Internal Medicine; Referring Provider Internal Medicine; Visit Provider Physician Assistant ==

== ENCOUNTER → 2021-04-25 12:56 | Outpatient (BNVA) | payer OTHER, SELFPAY | PROVIDERS: PCP Internal Medicine; Referring Provider Internal Medicine; Visit Provider Physician Assistant Surgical ==

== ENCOUNTER → 2021-05-11 12:43 | Outpatient (BNVA) | payer OTHER, SELFPAY | PROVIDERS: PCP Internal Medicine; Referring Provider Internal Medicine; Visit Provider Physician Assistant ==

== ENCOUNTER → 2021-05-14 07:28 | Outpatient (BNVA) | payer OTHER, SELFPAY | PROVIDERS: PCP Internal Medicine; Visit Provider Surgery | DX: Z13.89 Encounter for screening for other disorder (principal) | CPT/HCPCS: Q3014 ==

== ENCOUNTER 2021-05-17 13:51 | Outpatient (REF) | payer OTHER, SELFPAY ==
[2021-05-17 15:55] LABS: Binax Now Covid-19 Ag Negative (Negative)
[2021-05-17 15:56] LABS: Binax Internal Control QC Valid
== END 2021-05-17 13:52 | disposition home or self-care (01) ==
LOC: HO.LAB 13:51
PROVIDERS: Visit Provider Internal Medicine
DX: Z20.822 Contact with and (suspected) exposure to COVID-19 (principal)
CPT/HCPCS: C9803

== ENCOUNTER → 2021-05-24 13:19 | Outpatient (REF) | payer OTHER, SELFPAY ==
--- NOTE | 2021-05-24 13:20 | CA_ITS ---
Transthoracic Echocardiogram Patient (Last, First, Middle): Rosie Iverson, Gender: Female Date of : 1960 Age: 60 Procedure Date: 05/24/2021 Procedure Type: Transthoracic Echocardiogram Location: OP Height: 154.94 cm Weight: 81.65 kg BSA: 1.81 m2 Heart Rate: bpm BP: 130 / 80 mmHg Cut Off Man: MENDOZA Car MD: Jose L Jackson MD Tightener: Oscar Clark MD Symptoms: R07.9 - Chest pain, unspecified Study Quality: Fair/Contrast ECG Rhythm: Sinus Conclusions: - 1. Normal LV systolic function with grade 1 diastolic dysfunction 2. Normal cardiac valvular Doppler 3. Normal RV systolic pressure 4. No pericardial effusion Findings Procedure Information Contrast agent, definity, is being given per protocol without apparent complications. Left Ventricle Normal left ventricular size, thickness, and systolic function. The visually estimated ejection fraction is between 60-65%. Spectral Doppler is indicative of an impaired relaxation filling pattern. E/E prime ratio is <8, consistent with normal filling pressures. Evidence suggests grade I (mild) diastolic dysfunction. Right Ventricle Normal right ventricular cavity size and systolic function. Atria The left atrium is normal in size. Interatrial shunt cannot be excluded. The right atrium is normal in size. Aortic Valve The aortic valve structure and function is likely normal. There is no aortic valve stenosis. There is no aortic valve regurgitation. Mitral Valve Normal mitral valve structure and function. There is trace mitral valve regurgitation. There is no mitral valve stenosis. Pulmonic Valve The pulmonic valve was not well visualized. Tricuspid Valve Likely normal tricuspid valve structure and function. There is trace tricuspid valve regurgitation. The right ventricular systolic pressure is normal. The right ventricular systolic pressure is 22 mmHg. Normal right atrial pressure. There is no evidence of pulmonary hypertension. Great Vessels All visible segments of the aorta are normal in size. The pulmonary artery was not well visualized. Venous The inferior vena cava is normal in size and collapses greater than 50% with inspiration. Pericardium/Pleural There is no evidence of pericardial effusion. Prior Study Comparison No prior study available for comparison. Measurements 2D Linear Measurements IVSd: 0.96 0.6-0.9/0.6-1.0 cm LVIDd: 4.23 3.9-5.3/4.2-5.9 cm LVIDd Index: 2.34 2.4-3.2/2.2-3.1 cm/m2 LVIDs: 3.04 2.0-3.6 cm LVPWd: 0.90 0.7-1.1 cm Ao Root: 3.10 2.1-3.5 cm LA Diam: 3.40 2.7-3.8/3.0-4.0 cm LAIDs Index: 1.88 1.5-2.3 cm/m2 LV Mass: 155.84 67-162/88-224 g LV Mass Index: 86.10 43-95/49-115 g/m2 LVOT Diam: 2.10 3.0+(-)1.3 cm 2D Systolic Function EF 4C: 57.50 >55% EF 2C: 66.60 >55% EF BiP: 61.10 >55% Mitral Valve MV Pk E: 0.53 MV PK A: 0.92 MV Decel Time: 161.00 E/A: 0.60 E'Lateral: 8.70 E'Medial: 5.98 E/E' Med: 8.90 E/E' Lat: 6.10 PHT: 47.00 MVA PHT: 4.68 Decel Clayton: 3.30 Aortic Valve AoV Pk Stanley: 1.26 AoV Mn Stanley: 0.84 AoV VTI: 0.28 AoV Pk Grad: 6.00 Aov Mn Grad: 3.00 TREV Cont.VTI: 1.99 LVOT LVOT Pk Stanley: 0.76 LVOT Mn Stanley: 0.54 LVOT VTI: 0.16 LVOT Pk Grad: 2.00 LVOT Mn Grad: 1.00 LVOT Diam: 2.10 LVOT Area: 3.46 Diastolic Function MV Pk E: 0.53 MV Pk A: 0.92 E/A: 0.60 E'Medial: 5.98 E/E' Med: 8.90 E' Laterial: 8.70 E/E' Lat: 6.10 Right Ventricle TAPSE (mm): 1.61 TVS' Stanley: 11.30 Tricuspid Valve TR Pk Stanley: 2.19 TR Pk Grad: 19.00 RA Press: 3.00 RVSP: 22.00 Great Vessels Aorta Ao Root-2D: 3.10 2.0-3.7 cm Ao Asc: 2.80 2.1-3.4 cm Ao Arch: 2.50 Updated in Other Vendor System with Status of Final Oscar Clark MD electronically signed on 05/24/2021 2:55:39 PM with status of Final
== END ==
LOC: HO.CARD 13:19
PROVIDERS: Visit Provider Surgery
DX: R07.9 Chest pain, unspecified (principal); E11.42 Type 2 diabetes mellitus with diabetic polyneuropathy; E11.65 Type 2 diabetes mellitus with hyperglycemia; E78.5 Hyperlipidemia, unspecified; N18.9 Chronic kidney disease, unspecified
CPT/HCPCS: 93306; Q9957

== ENCOUNTER → 2021-05-28 12:01 | Outpatient (BNVA) | payer OTHER, SELFPAY | PROVIDERS: PCP Internal Medicine; Referring Provider Internal Medicine; Visit Provider Physician Assistant Surgical ==

== ENCOUNTER → 2021-06-18 10:59 | Outpatient (BNVA) | payer OTHER, SELFPAY | PROVIDERS: PCP Internal Medicine; Referring Provider Internal Medicine; Visit Provider Physician Assistant | DX: Z13.89 Encounter for screening for other disorder (principal) ==

== ENCOUNTER 2021-06-18 12:54 | Outpatient (REF) | payer OTHER, SELFPAY ==
[2021-06-18 13:50] LABS: COVID-19 Test Negative (Negative); IDNOW Serial# 16C4AD1C
== END 2021-06-18 12:55 | disposition home or self-care (01) ==
LOC: HO.LAB 12:54
PROVIDERS: Visit Provider Internal Medicine
DX: Z20.822 Contact with and (suspected) exposure to COVID-19 (principal)
CPT/HCPCS: 87635; C9803

== ENCOUNTER 2021-06-19 14:20 | Outpatient (REF) | payer OTHER, SELFPAY ==
[2021-06-19 17:23] LABS: Anion Gap 13 (12-20); Blood Urea Nitrogen 23 mg/dL (9-16); Calcium 10.1 mg/dL (8.4-10.2); Carbon Dioxide 34 mmol/L (22-29); Chloride 104 mmol/L (96-108); Estimated Glomerular Filt Rate 29; Glucose Random 107 mg/dL (60-115); Potassium 4.1 mmol/L (3.3-5.1); Sodium 147 mmol/L (135-145)
[2021-06-19 17:49] LABS: Free T4 (Free Thyroxine) 0.87 ng/dL (0.71-1.85)
[2021-06-20 23:46] LABS: Triiodothyronine T3 Free 2.9 pg/mL (2.3-4.2)
== END 2021-06-19 14:21 | disposition home or self-care (01) ==
LOC: HO.LAB 14:20
PROVIDERS: PCP Internal Medicine; Visit Provider Internal Medicine Endocrinology, Diabetes & Metabolism
DX: E11.42 Type 2 diabetes mellitus with diabetic polyneuropathy (principal); E11.65 Type 2 diabetes mellitus with hyperglycemia; E04.2 Nontoxic multinodular goiter
CPT/HCPCS: 36415; 80048; 82947; 83036; 84439; 84443; 84481; 99212

== ENCOUNTER → 2021-07-05 09:48 | Outpatient (BNVA) | payer OTHER, SELFPAY | PROVIDERS: PCP Internal Medicine; Visit Provider Registered Nurse Diabetes Educator | DX: E11.65 Type 2 diabetes mellitus with hyperglycemia (principal) | CPT/HCPCS: 99211 ==

== ENCOUNTER → 2021-07-11 11:57 | Outpatient (BNVA) | payer OTHER, SELFPAY | PROVIDERS: PCP Internal Medicine; Referring Provider Internal Medicine; Visit Provider Physician Assistant Surgical | DX: Z13.89 Encounter for screening for other disorder (principal) ==

== ENCOUNTER → 2021-07-23 12:00 | Outpatient (BNVA) | payer OTHER, SELFPAY | PROVIDERS: PCP Internal Medicine; Referring Provider Internal Medicine; Visit Provider Physician Assistant | DX: Z13.89 Encounter for screening for other disorder (principal) ==

== ENCOUNTER → 2021-07-24 12:45 | Outpatient (BNVA) | payer OTHER, SELFPAY | PROVIDERS: PCP Internal Medicine; Referring Provider Internal Medicine; Visit Provider Physician Assistant | DX: Z13.89 Encounter for screening for other disorder (principal) ==

== ENCOUNTER → 2021-07-25 09:53 | Outpatient (REF) | payer OTHER, SELFPAY ==
--- NOTE | ~2021-07-25 | NM_ITS ---
EXAMINATION: THYROID UPTAKE AND SCAN CLINICAL INFORMATION: Nontoxic multinodular goiter. COMPARISON: No previous radionuclide thyroid scan is available for comparison. Thyroid ultrasound dated 05/09/2020 is available for comparison. TECHNIQUE: Following the oral administration of 271 microcuries of I-123 sodium iodide, thyroid uptake was performed and expressed as a percentage of the administrated dose. Gamma scintillation camera images of the thyroid in the anterior and right and left anterior oblique views were obtained using a pinhole collimator following the administration of 10 mCi Tc-99m pertechnetate. FINDINGS: The uptake is 2.8% at 4 hours and 8.8% at 24 hours (Normal radioiodine uptake at 24 hours is 10% to 30%). The radioiodine uptake is low. The radiopertechnetate thyroid scintigram shows the thyroid gland to be mildly enlarged, approximately 1 1/2 times normal in size. There is heterogeneous distribution of activity within the gland. There is a focus of moderately increased activity present laterally in the lower pole of the right lobe. There is some additional heterogeneity bilaterally but no additional discrete focal abnormalities are present. A single anterior radioiodine image obtained at the time of the 24-hour uptake measurement is similar to the radio pertechnetate image, but does not delineate detail within the gland as well. The thyroid ultrasound study dated 05/09/2020 showed multiple nodules bilaterally most of which are subcentimeter in size and are not visualized on this radionuclide scan. A focus of increased activity in the lower pole of the right lobe does not appear to definitely correspond to any of the nodules visualized on the ultrasound study. It is in the region of the lower pole nodule visualized on the ultrasound, but that nodule measured only 0.7 x 0.6 x 0.6 cm, and in less that nodule enlarged since the 2020 study, it was too small to likely be resolved on these radionuclide images. NM/NM thyroid w uptake IMPRESSION: Mildly enlarged thyroid gland with a single functioning (hot) nodule visualized laterally in the lower pole of the right lobe. Double additional subcentimeter nodules visualized on the prior 2020 thyroid ultrasound study are not visualized on this radionuclide scan, but are likely below the resolution of this radionuclide technique. The radioiodine uptake is mildly depressed.
== END ==
LOC: HO.NUCMED 09:53
PROVIDERS: PCP Internal Medicine; Visit Provider Internal Medicine Endocrinology, Diabetes & Metabolism
DX: E04.2 Nontoxic multinodular goiter (principal)
CPT/HCPCS: 78014; A9512; A9516

== ENCOUNTER → 2021-07-27 09:34 | Outpatient (BNVA) | payer OTHER, SELFPAY | PROVIDERS: PCP Internal Medicine; Visit Provider Surgery | DX: E66.9 Obesity, unspecified (principal); E78.5 Hyperlipidemia, unspecified; I10 Essential (primary) hypertension; E11.42 Type 2 diabetes mellitus with diabetic polyneuropathy; Z68.32 Body mass index [BMI] 32.0-32.9, adult | CPT/HCPCS: Q3014 ==

== ENCOUNTER → 2021-07-31 08:34 | Outpatient (BNVA) | payer OTHER, SELFPAY | PROVIDERS: PCP Internal Medicine; Referring Provider Internal Medicine; Visit Provider Physician Assistant Surgical | DX: Z13.89 Encounter for screening for other disorder (principal) ==

== ENCOUNTER → 2021-08-08 08:18 | Outpatient (BNVA) | payer OTHER, SELFPAY | PROVIDERS: PCP Internal Medicine; Visit Provider Surgery | DX: E66.9 Obesity, unspecified (principal); Z68.34 Body mass index [BMI] 34.0-34.9, adult; E11.65 Type 2 diabetes mellitus with hyperglycemia; E11.42 Type 2 diabetes mellitus with diabetic polyneuropathy; E78.5 Hyperlipidemia, unspecified; I10 Essential (primary) hypertension | CPT/HCPCS: Q3014 ==

== ENCOUNTER → 2021-08-10 08:57 | Outpatient (BNVA) | payer OTHER, SELFPAY | PROVIDERS: PCP Internal Medicine; Referring Provider Internal Medicine; Visit Provider Surgery | DX: Z13.89 Encounter for screening for other disorder (principal) | CPT/HCPCS: 71046 ==

== ENCOUNTER → 2021-08-13 13:20 | Outpatient (BNVA) | payer OTHER, SELFPAY | PROVIDERS: PCP Internal Medicine; Referring Provider Internal Medicine; Visit Provider Physician Assistant Surgical | DX: Z13.89 Encounter for screening for other disorder (principal) ==

== ENCOUNTER → 2021-08-21 13:11 | Outpatient (BNVA) | payer OTHER, SELFPAY | PROVIDERS: PCP Internal Medicine; Referring Provider Internal Medicine; Visit Provider Physician Assistant | DX: Z13.89 Encounter for screening for other disorder (principal) ==

== ENCOUNTER 2021-08-22 10:06 | Inpatient (IN) | payer OTHER, SELFPAY ==
[2021-08-10 08:53] LABS: MANUAL DIFF FLAG NO
[2021-08-10 09:18] LABS: Estimated Average Glucose 166 mg/dL; Hemoglobin A1c % 7.4 %
[2021-08-10 09:20] LABS: Basophils Percent Auto 0.6 % (0-2); Eosinophils Absolute Auto 0.3 X10*3/uL (0.0-0.4); Eosinophils Percent Auto 4.7 % (0-4); Imm Gran Abs Auto 0.02 X10*3/uL (0.00-0.03); Imm Gran Pct Auto 0.3 % (0.0-0.4); Lymphocytes Absolute Auto 1.7 X10*3/uL (1.2-4.9); Lymphocytes Percent Auto 26.6 % (20-40); Mean Corpuscular HGB Conc 30.8 g/dl (31.0-35.0); Mean Corpuscular Hemoglobin 26.3 pg (27.0-33.0); Mean Corpuscular Volume 85.5 fL (80.0-98.0); Mean Platelet Volume 11.9 fL (9.4-12.3); Monocytes Absolute Auto 0.7 X10*3/uL (0.1-1.2); Monocytes Percent Auto 10.6 % (2-11); Neutrophils Absolute Auto 3.6 x10*3/uL (2.0-8.3); Neutrophils Percent Auto 57.2 % (45-73); Platelet Count 226 X10*3/uL (160-400); Red Blood Count 4.56 X10*6/uL (4.20-5.50); Red Cell Distribution Width 15.6 % (11.0-16.0); White Blood Count 6.2 X10*3/uL (4.8-10.8)
[2021-08-10 09:35] LABS: Alanine Aminotransferase 18 U/L (0-31); Albumin Level 4.1 g/dL (3.5-5.0); Alkaline Phosphatase 86 U/L (39-117); Anion Gap 10 (12-20); Aspartate Amino Transferase 12 U/L (5-31); Bilirubin Total 0.4 mg/dL (0.0-1.0); Blood Urea Nitrogen 16 mg/dL (9-16); C Reactive Protein 0.13 mg/dL (< or = 0.50); Calcium 9.1 mg/dL (8.4-10.2); Carbon Dioxide 26 mmol/L (22-29); Chloride 112 mmol/L (96-108); Cholesterol 174 mg/dL; Estimated Glomerular Filt Rate 34; Glucose Random 192 mg/dL (60-115); HDL Cholesterol 41 mg/dL; LDL Cholesterol Calculated 96 mg/dl; Potassium 4.3 mmol/L (3.3-5.1); Sodium 144 mmol/L (135-145); Total Protein 6.7 g/dL (6.5-8.0); Triglycerides 189 mg/dL
[2021-08-10 09:56] LABS: TSH reflex Free T4 0.16 uIU/mL (0.32-4.0)
[2021-08-10 10:28] LABS: INTERNATIONAL NORM RATIO 0.9 (0.9-1.1); Prothrombin Time 10.6 SEC (9.9-13.0)
[2021-08-10 11:05] LABS: Free T4 (Free Thyroxine) 0.88 ng/dL (0.71-1.85); Insulin 19 uU/mL (2-29)
[2021-08-10 11:45] VITALS: BP 134/66; PULSE 64; RESP 20; O2SAT 98; BMI 33.8
--- NOTE | 2021-08-10 11:57 | P.CONAN_ITS ---
Documented by User: Jeannie Albrecht NP 08/21/21 13:01 HPI - Anesthesia Eval Consult details Narrative: 61yo F for Gastrectomy Sleeve, EGD, possible diaphragmatic hernia, possible ventral hernia,possible open 01/2021 CKD with BUN/Creat increasing from August (18/1.4) to January (62/2.4). T/C to renal for recommendations for surgery. Spoke with renal provider MADAN Hidalgo 01/23/21 @ 2895. Will not clear for surgery without further renal work up. Will get patient into the office for visit and further labs this week and forward results/note when cleared. 02/2021 Eval by renal with d/c of lisinopril and lasix. Creat improved. OK to proceed per renal 06/2021 F/U with renal. Creat remains stable. 08/2021 Preop labs show stable baseline creat at 1.5 PMFSH Active Problems Active Problems: All Active Problems (Updated 08/10/21 @ 11:43 by Karolina Varma RN) Distal radius fracture, right (Acute) Pre-op evaluation (Acute) BMI 36.0-36.9,adult (Acute) SOB (shortness of breath) (Acute) Obese (Acute) Adjustment disorder, unspecified (Acute) BMI 35.0-35.9,adult (Acute) BMI 34.0-34.9,adult (Acute) BMI 33.0-33.9,adult (Acute) Toxic multinodul goiter (Acute) HTN (hypertension) (Acute) Chronic renal insufficiency (Acute) B12 deficiency (Acute) Obesity (BMI 30-39.9) (Acute) Non-toxic multinodular goiter (Acute) Dyslipidemia (Acute) Diabetic 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 with type 2 diabetes mellitus (Acute) 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 (Acute) Diabetes type 2, uncontrolled (Acute) Past Medical History Medical History (Updated 08/10/21 @ 11:43 by Karolina Varma RN) B12 deficiency Chronic kidney disease Chronic renal insufficiency COVID-19 vaccine series completed Cyst, kidney, acquired Diabetes type 2, uncontrolled Diabetic neuropathy Diabetic 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 with type 2 diabetes mellitus Dyslipidemia HTN (hypertension) FCI (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 insulin Nephrolithiasis Non-toxic multinodular goiter Obesity (BMI 30-39.9) Tachycardia Toxic multinodul goiter Family History Family History Father Hypertension Diabetes History of kidney cancer Mother Diabetes Hypertension Heart disease Brother Hypertension Diabetes Brother No problems noted. Son Hypertension Prediabetes Heart disease Daughter Prediabetes Family history of problems with anesthesia: No Surgical History Surgical History (Updated 08/10/21 @ 11:45 by Karolina Varma RN) H/O colonoscopy History of carpal tunnel release (~2017) History of section History of esophagogastroduodenoscopy (EGD) History of partial hysterectomy History of total left knee replacement (~2010) History of total right knee replacement Hx of biopsy Hx of cholecystectomy History of Problems with Anesthesia: No Social History Social History Are you a primary animal care taker to a significant other at home: No Do you presently have visiting nurse or other home services: Yes ([facility]) Alcohol intake: never Patient Tobacco Use Status: Never used Tobacco Narrative Narrative: No recent illness. No CP/SOB with walking on treadmill 30 min, 3x daily Meds Allergies Allergy/AdvReac Type Severity Reaction Status Date / Time latex [LATEX] Allergy Mild RASH Verified 08/13/21 13:24 Home Medications Medication Instructions Recorded Confirmed Last Taken Type alendronate 70 mg tablet 70 mg PO QWEEK 02/05/20 08/10/21 Unknown History amlodipine 10 mg tablet 10 mg PO DAILY 02/05/20 08/10/21 Unknown History atorvastatin 20 mg tablet 20 mg PO DAILY 02/05/20 08/10/21 Unknown History fluoxetine 20 mg capsule 20 mg PO DAILY 02/05/20 08/10/21 Unknown History furosemide 20 mg tablet 20 mg PO DAILY 02/05/20 08/10/21 Unknown History lisinopril 40 mg tablet 40 mg PO DAILY 02/05/20 08/10/21 Unknown History metoprolol succinate 100 mg 100 mg PO DAILY 02/05/20 08/10/21 Unknown History tablet,extended release 24 hr omeprazole 20 mg capsule,delayed 20 mg PO DAILY 02/05/20 08/08/21 Unknown History release fluticasone propionate 50 1 spray INTRANASAL DAILY PRN g 07/19/20 08/10/21 Unknown History mcg/actuation nasal spray,suspension gabapentin 400 mg capsule 400 mg PO BEDTIME cap 07/19/20 08/10/21 Unknown History lorazepam 0.5 mg tablet 0.5 mg PO DAILY PRN 07/19/20 08/10/21 Unknown History insulin glargine U-300 conc 300 10 unit SUBCUT QAM ml 11/27/20 08/10/21 Unknown History unit/mL (1.5 mL) subcutaneous pen Exam Exam Date and Time: August 10, 2021 115 Height,Weight and Vital Signs: Height 5 ft 1 in Weight 81.193 kg Last Vital Signs Pulse 64 08/10/21 11:45 Resp 20 08/10/21 11:45 BP 134/66 08/10/21 11:45 Pulse Ox 98 08/10/21 11:45 Pertinent Lab Results Pertinent Lab Results: Laboratory Tests 08/10/21 08/10/21 08/10/21 08:29 08:43 08:43 WBC 6.2 RBC 4.56 Hgb 12.0 Hct 39.0 MCV 85.5 MCH 26.3 L MCHC 30.8 L RDW 15.6 Plt Count 226 MPV 11.9 Immature Gran % (Auto) 0.3 Neut % (Auto) 57.2 Lymph % (Auto) 26.6 Converse % (Auto) 10.6 Eos % (Auto) 4.7 H Baso % (Auto) 0.6 Lymph # (Auto) 1.7 [place]verse # (Auto) 0.7 Eos # (Auto) 0.3 Baso # (Auto) 0.0 Abs Immat Gran (auto) 0.02 Absolute Neuts (auto) 3.6 Absolute Nucleated RBC 0.000 Nucleated RBC % (auto) 0.0 PT 10.6 INR 0.9 APTT 30.0 Sodium 144 Potassium 4.3 Chloride 112 H Carbon Dioxide 26 Anion Gap 10 L BUN 16 Creatinine 1.54 H Estim Creat Clear Calc TNP Estimated GFR 34 Random Glucose 192 H Estimat Average Glucose Hemoglobin A1c % Insulin Level 19 Calcium 9.1 D Total Bilirubin 0.4 AST 12 ALT 18 Alkaline Phosphatase 86 C-Reactive Protein 0.13 Total Protein 6.7 Albumin 4.1 Triglycerides 189 Cholesterol 174 LDL Cholesterol, Calc 96 HDL Cholesterol 41 TSH 0.16 L Free T4 0.88 Blood Type Antibody Screen 08/10/21 08/10/21 08:43 08:43 WBC RBC Hgb Hct MCV MCH MCHC RDW Plt Count MPV Immature Gran % (Auto) Neut % (Auto) Lymph % (Auto) [place]verse % (Auto) Eos % (Auto) Baso % (Auto) Lymph # (Auto) [place] # (Auto) Eos # (Auto) Baso # (Auto) Abs Immat Gran (auto) Absolute Neuts (auto) Absolute Nucleated RBC Nucleated RBC % (auto) PT INR APTT Sodium Potassium Chloride Carbon Dioxide Anion Gap BUN Creatinine Estim Creat Clear Calc Estimated GFR Random Glucose Estimat Average Glucose 166 Hemoglobin A1c % 7.4 Insulin Level Calcium Total Bilirubin AST ALT Alkaline Phosphatase C-Reactive Protein Total Protein Albumin Triglycerides Cholesterol LDL Cholesterol, Calc HDL Cholesterol TSH Free T4 Blood Type O Positive Antibody Screen NEGATIVE Narrative Narrative: EKG 08/2021 Vent. Rate : 057 BPM ? ? Atrial Rate : 057 BPM ?? P-R Int : 180 ms? QRS Dur : 090 ms ? ? QT Int : 426 ms ? ? ? P-R-T Axes : 063 -04 026 degrees ?? QTc Int : 414 ms ? Sinus bradycardia Otherwise normal ECG When compared with ECG of 23-AUG-2020 08:33, No significant change was found ECHO 05/2021 Conclusions: - 1.? Normal LV systolic function with grade 1 diastolic ? dysfunction? 2. Normal cardiac valvular Doppler ? 3. Normal RV systolic pressure ? 4. No pericardial effusion ? NM nay perf SPECT rest & str 03/2021 Impression: ? 1.? Myocardial perfusion imaging study shows likely normal myocardial 2.? Gated LVEF is 55% 3. Transient ischemic dilatation not present ? EKG is nondiagnostic for ischemia XR chest 2V 08/2021 IMPRESSION: Unremarkable examination. Airway Mallampati Class: I TM Dist: >3cm Neck ROM: Full Partial: Upper Heart: RRR Lungs: CTAB Assessment and Plan Assessment Anesthesia Assessment: Anesthesia Plan Discussed and PAT Visit Final Anesthetic Review Family History of Problems with Anesthesia: No History of Problems with Anesthesia: No Documented by User: Tyree Washington MD 08/22/21 10:30 [facility] Past Medical History Medical History (Updated 08/10/21 @ 11:43 by Karolina Varma, RN) B12 deficiency Chronic kidney disease Chronic renal insufficiency COVID-19 vaccine series completed Cyst, kidney, acquired Diabetes type 2, uncontrolled Diabetic neuropathy Diabetic 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 with type 2 diabetes mellitus Dyslipidemia HTN (hypertension) FCI (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 insulin Nephrolithiasis Non-toxic multinodular goiter Obesity (BMI 30-39.9) Tachycardia Toxic multinodul goiter Family History Family History Father Hypertension Diabetes History of kidney cancer Mother Diabetes Hypertension Heart disease Brother Hypertension Diabetes Brother No problems noted. Son Hypertension Prediabetes Heart disease Daughter Prediabetes Surgical History Surgical History (Updated 08/10/21 @ 11:45 by Karolina Varma, SHERRY) H/O colonoscopy History of carpal tunnel release (~2017) History of section History of esophagogastroduodenoscopy (EGD) History of partial hysterectomy History of total left knee replacement (~2010) History of total right knee replacement Hx of biopsy Hx of cholecystectomy Social History Social History Are you a primary animal care taker to a significant other at home: No Do you presently have visiting nurse or other home services: Yes ([facility]) Alcohol intake: never Patient Tobacco Use Status: Never used Tobacco Meds Allergies Allergy/AdvReac Type Severity Reaction Status Date / Time latex [LATEX] Allergy Mild RASH Verified 08/13/21 13:24 Home Medications Medication Instructions Recorded Confirmed Last Taken Type alendronate 70 mg tablet 70 mg PO QWEEK 02/05/20 08/10/21 Unknown History amlodipine 10 mg tablet 10 mg PO DAILY 02/05/20 08/10/21 Unknown History atorvastatin 20 mg tablet 20 mg PO DAILY 02/05/20 08/10/21 Unknown History fluoxetine 20 mg capsule 20 mg PO DAILY 02/05/20 08/10/21 Unknown History furosemide 20 mg tablet 20 mg PO DAILY 02/05/20 08/10/21 Unknown History lisinopril 40 mg tablet 40 mg PO DAILY 02/05/20 08/10/21 Unknown History metoprolol succinate 100 mg 100 mg PO DAILY 02/05/20 08/10/21 Unknown History tablet,extended release 24 hr omeprazole 20 mg capsule,delayed 20 mg PO DAILY 02/05/20 08/08/21 Unknown History release fluticasone propionate 50 1 spray INTRANASAL DAILY PRN g 07/19/20 08/10/21 Unknown History mcg/actuation nasal spray,suspension gabapentin 400 mg capsule 400 mg PO BEDTIME cap 07/19/20 08/10/21 Unknown History lorazepam 0.5 mg tablet 0.5 mg PO DAILY PRN 07/19/20 08/10/21 Unknown History insulin glargine U-300 conc 300 10 unit SUBCUT QAM ml 11/27/20 08/10/21 Unknown History unit/mL (1.5 mL) subcutaneous pen Exam Airway Mallampati Class: II Partial: Upper and Lower Assessment and Plan Final Anesthetic Review NPO: Yes ASA Class: III Final Preanesthetic Review: No Changes in Pt Med Stat, Meds/Allgs Chart Reviewed, Consent Obtained/Reviewed and Anes Risks/Benef Reviewed Patient Risk: Intermediate Procedure Risk: Intermediate Assessment/Block/Sedation in SS: Assess/Block/Sedation-SS Anesthetic Plan Anesthetic Plan: GA and Agree w/ Assess. and Plan Disposition: Standard PACU
--- NOTE | 2021-08-10 12:13 | ECG_ITS ---
Test Reason : SOB Blood Pressure : / mmHG Vent. Rate : 057 BPM Atrial Rate : 057 BPM P-R Int : 180 ms QRS Dur : 090 ms QT Int : 426 ms P-R-T Axes : 063 -04 026 degrees QTc Int : 414 ms Sinus bradycardia Otherwise normal ECG When compared with ECG of 23-AUG-2020 08:33, No significant change was found Referred By: Shalonda Lockwood Electronically Signed By:RAYSHAWN CARNEY MD
--- NOTE | 2021-08-11 15:34 | MHC.SHP ---
Pre-Procedural Eval Section A Date of Service: 08/11/21 The patient is an INPATIENT: Yes The History & Physical has been completed within 30 days and I have reviewed it.: Yes Section B Chief Complaint: obesity Relevant Family History (Specify if Yes): No Relevant Social History: None Present Medications: None Medical History: No relevant PMH History of Previous Operations: No relevant previous surgery Allergies: Allergies Allergy/AdvReac Type Severity Reaction Status Date / Time latex [LATEX] Allergy Mild RASH Verified 08/08/21 14:18 Review of Systems Sugical H&P ROS: Negative: Constitution, Cardiovascular, Respiratory, Neurological, Psychiatric, Hem-Onc, Allergic/Immunologic, Gastrointestinal, Genitourinary, Musculoskeletal, Integumentary, Endocrine and Eyes/Ears/Nose/Throat Exam Surgical H&P Exam: Normal: HEENT, Normal: Heart, Normal: Lungs, Normal: Extremities, Normal: Abdomen, Normal: Skin and Normal: Neurological Plan Diagnosis/Plan: Unchanged I have reviewed the history and physical and performed a pertinent physical examination on my patient. No changes have occurred unless specified.
[2021-08-13 13:33] LABS: COVID-19 Test Negative (Negative); IDNOW Serial# 55D5AD1C
[2021-08-21 14:13] LABS: COVID-19 Test Negative (Negative); IDNOW Serial# 16C4AD1C
[2021-08-22] VITALS (12 sets, daily range): BP systolic 130–163; BP diastolic 68–90; PULSE 63–76; RESP 14–18; TEMP 36.1–36.7; O2SAT 93–99
--- NOTE | ~2021-08-22 | XR_ITS ---
EXAMINATION: XR CHEST CLINICAL INFORMATION: Bariatric service evaluation. [id number]. COMPARISON: Chest radiographs 08/23/2020, 04/14/2018 TECHNIQUE: 2 views of the chest were obtained. FINDINGS: The lungs are clear. The heart is normal in size. The vascularity is normal. The costophrenic sulci are clear. The hilar and mediastinal contours and visualized bony structures are unremarkable. There are surgical clips again seen overlying right upper quadrant abdomen. XR/XR chest 2V IMPRESSION: Unremarkable examination.
[2021-08-22] MEDS: Lactated Ringers 1,000 ML 999 ML IV (10:35)
--- NOTE | 2021-08-22 11:30 | P.BOP_ITS ---
Brief Operative Note Date of Service: 08/22/21 Pre-op diagnosis: Severe obesity with comorbidities (see below0 Post-op diagnosis: same (& abdominal adhesions) Procedure: INITIAL PATIENT BMI ON PRESENTATION AT OUR OFFICE: 36.3 kg/m2 LAST BMI BEFORE SURGERY: 33.9 kg/m2 COMORBIDITIES: insulin dependent diabetes, chronic renal insufficiency, hypertension, neuropathy, hyperlipidemia, GERD, depression, anxietyinsomnia, DJD ?The patient presented to the Weight Management Program with significant obesity that was negatively impacting the patient's comorbidities as listed above.? The program is a phased program with a special focus on preoperative medical weight management to promote substantial weight loss and prepare the patients for the second phase of the program: bariatric surgery. The patient participated in an intensive weekly lifestyle ?intervention and exercise program during which the patient ?has lost between the initial office visit and the last preoperative visit 18 lbs, or 9.4% of initial actual body weight. It was deemed appropriate for the patient to now have bariatric surgery. In light of the current Covid-19 pandemic and the well documented strong association of obesity and increased risk of worse outcomes if infected with Covid-19 (REFERENCES: https://pubmed.ncbi.nlm.nih.gov/86958103/ ,? https://pubmed.ncbi.nlm.nih.gov/14904629/ ), any delay in undergoing bariatric surgery may lead to the patient's worsening health condition and increased?risk of more severe Covid-19 disease if infected. In addition a recent?study from [facility] published in [facility] on 04/30/2021 ([id number] [email or web address]) found that, among patients with obesity, substantial weight loss achieved with surgery was associated with improved outcomes of COVID-19 infection. The findings suggest that obesity can be a modifiable risk factor for the severity of COVID-19 infection. In addition, the patient met the BMI-criteria for bariatric surgery based on the BMI on initial presentation. The patient should not be penalized for achieving such weight loss because ?it is not sustainable long-term without surgical i ntervention and it was achieved in preparation for bariatric surgery ?under my direction and based on my published research ([email or web address]).[email or web address] and? https://www.soard.org/article/[email or web address](13)26154-X/pdf ) ?that a 10% preoperative weight loss improves long-term weight loss after surgery and reduces perioperative complications.? Insurance carriers such as [facility] have endorsed my recommendations ?and have included in their policies criteria to include a 10% preoperative weight loss requirement. PROCEDURE: Esophago-gastroscopy, laparoscopic lysis of adhesions, laparoscopic sleeve gastrectomy and laparoscopic gastropexy INDICATIONS: This is a 61 year-old female who was electively scheduled for laparoscopic, possibly open sleeve gastrectomy. The risks and complications of the procedure were discussed with the patient in advance, particularly the possibility of ; pulmonary embolism; staple line leak; bleeding; GERD; cardiac, pulmonary, or renal complications; as well as long-term problems such as insufficient weight loss, vitamin deficiency, strictures, or ulcers. The patient understood all the risks, and was in agreement to proceed with surgery. DESCRIPTION OF PROCEDURE: After informed consent was obtained from the patient, the patient was given preoperative antibiotics, and was transferred to the operating room. After successful induction of general anesthesia, pneumatic compression devices were placed on both lower extremities. An upper endoscopy was performed next. The oropharynx and esophagus appeared to be within normal limits. There was no diaphragmatic hernia present consistent with the findings of the preoperative upper GI. The stomach was entered. Then after all fluid and air were suctioned and the stomach was fully decompressed, the scope was withdrawn and secured in the mid esophagus. The patient was then prepped and draped in the usual sterile manner, and abdominal access was established at the right upper quadrant with the Abigail technique. A 12 mm blunt port was inserted, and the abdomen was insufflated with CO2 to a pressure of 15 mmHg. Under direct visualization, additional ports were placed, specifically two 5 mm Versi-step ports to the left upper quadrant, and a 5 mm Versi-Step port to the right upper quadrant. 1% lidocaine plain was used to infiltrate all port sites as well as all fascia defects. There were adhesions in the abdomen from previous laparoscopic cholecystectomy and C-sections involving the omentum and the anterior abdominal wall. Those were lysed partially with the ultrasonic device enough to get adequate exposure to perform our operation. Following that, the patient was placed in a steep reverse Trendelenburg position. An additional 5 mm port was placed to the right flank for the Mediflex retractor that was used to retract the left lobe of the liver. The gastro-esophageal fat pad was opened with the ultrasonic device (Thunderbeat, Olympus) and the anterior esophagus and hiatus were exposed. The angle of His was opened with the ultrasonic device the fundus of the stomach from any diaphragmatic and splenic attachments. I then opened the gastrocolic ligament between the transverse colon and the greater curvature of the stomach with the ultrasonic device to enter the lesser sac and facilitate the ligation of the short gastric vessels. I started at a mid-point along the greater curvature and using the Thunderbeat, all short gastric vessels were divided all the way to the angle of His until the left martha was completely dissected at its entirety. I then divided the gastro-colic ligament distally to a distance of about 3-4 cm proximal to the pylorus. There were extensive congenital adhesions between the pancreas and posterior gastric wall. Those were lysed completely with the ultrasonic device. Adhesiolysis took approximately 45 min to complete. The stomach was then divided transversely with one Endo SHANTA-45 purple and four SHANTA-60 articulating orange loads using the AEON stapler and loads. Every effort was made that the gastric sleeve had a tubular shape and an even caliber throughout. Once the sleeve resection was completed, the staple line of the gastric sleeve was reinforced with Hemoclips. The resected stomach was retrieved without difficulty from the Abigail port. A gastropexy was then performed in order to prevent postoperative GERD and partial gastric volvulus. Several interrupted 2.0 Surgidac sutures were placed between the sleeve's staple line and the previously divided greater omentum and gastro-colic ligament using the Endo-Stitch device. ?An upper endoscopy was performed. There was no narrowing at the GE junction. The scope was easily advanced all the way to the pylorus which was clearly vis ualized. There was no narrowing anywhere and the sleeve's caliber was even throughout. The sleeve's staple line was inspected and there was no evidence of ischemia, bleeding or dehiscence. At that point the gastroscope was withdrawn from the patient?s mouth while we were decompressing the bowel and the stomach from any remaining air. I looked into the lesser sac to see how the sleeve was situating and it was situating well. There was no bleeding from the staple line, spleen, or short gastric vessels. The Mediflex retractor was removed, and the undersurface of the liver was inspected and there was no bleeding. The patient was placed in supine position. I closed the fascial defect of the 12 mm port site with a figure of eight #1 Polysorb suture. Then 100 cc 0.25 % Marcaine plain with 10 mg of Dexamethasone were used to infiltrate the fascial closure as well as all skin incisions. At this point, the abdomen was deflated, all ports were removed under direct vision, and no bleeding was noted from any of the port sites. The skin incisions were irrigated with saline and were closed with 4-0 absorbable monofilament sutures. Steri-Strips and OpSites were used to cover all incisions. The patient was extubated and was transferred in stable condition to the recovery room for further care. I was present and performed all shook parts of the procedure. Mr. Briseno was the certified surgical tech/first assistant. There were no residents to assist with this case. Baljit Jackson MD, PhD, FACS Surgeon: Jose L Jackson MD Anesthesia: GETA, local and other (TAP block) Was an Harbor Department Manager used for this Procedure?: No Harbor Department Manager: Ramirez Briseno Estimated blood loss (mL): 10 IV fluids (mL): 3,000 Urine output (mL): 0 (No Wadsworth to gravity) Pathology: other (Stomach) Condition: stable Disposition: PACU
--- NOTE | 2021-08-22 11:33 | PM.PNGS ---
Subjective Subjective Date of Service: 08/23/21 Interval history: Patient has mild incisional pain, but was able to ambulate and use the incentive spirometer. She is tolerating phase 1 bariatric diet Physical Exam Vital Signs: Vital Signs: Last Vital Signs Temp 97.4 F 08/22/21 09:54 Pulse 68 08/22/21 09:54 Resp 18 08/22/21 09:54 BP 156/90 H 08/22/21 09:54 Pulse Ox 98 08/22/21 09:54 BMI result Body Mass Index 33.8 GI: Inspection: Yes normal to inspection, Yes incision (clean, dry and intact) and Yes obesity Extrem: Right lower extremity: normal to inspection (no calf tenderness) Left lower extremity: normal to inspection (no calf tenderness) Objective Data Active Medications Fentanyl (Fentanyl Citrate/Pf 100 Mcg/2 Ml Vial) 50 mcg IVPUSH Q5M PRN; Protocol PRN Reason: Pain, Moderate (Pain Scale 4-6 Hydromorphone HCl (Hydromorphone Hcl 0.5 Mg/0.5 Ml Syringe) 0.5 mg IVPUSH Q5M PRN; Protocol PRN Reason: Pain, Severe (Pain Scale 7-10) Lactated Ringer's (Lr) 1,000 mls @ 100 mls/hr IVCONT .Q10H FATOU Promethazine HCl 6.25 mg/ (Sodium Chloride) 50.25 mls @ 201 mls/hr IV ONCE PRN PRN Reason: Nausea and Vomiting Ondansetron HCl (Ondansetron Hcl 4 Mg/2 Ml Vial) 4 mg IVPUSH ONCE PRN PRN Reason: Nausea and Vomiting Oxycodone HCl (Oxycodone Hcl Immed Release 5 Mg Tablet) 10 mg PO ONCE PRN PRN Reason: Pain, Mild (Pain Scale 1-3) Labs CBC & Chem 7: 08/23/21 05:52 08/23/21 05:52 Labs: Laboratory Results - last 24 hr 08/21/21 08/22/21 13:46 10:12 COVID-19 ([facility]) Negative COVID-19 Clin Com See Note Blood Type O Positive Antibody Screen NEGATIVE Procedures Date of Service Date of Service: 08/23/21 Progress Note: A&P Assessment and plan (1) Obese: Status: Acute Assessment and Plan: s/p laparoscopic sleeve gastrectomy, lysis of adhesions repair of diaphragmatic hernia, and gastropexy Doing well Check am labs. If OK, will discharge home? 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: Status: Acute Fall Risk Details Current Medications: Current Medications Fentanyl (Fentanyl Citrate/Pf 100 Mcg/2 Ml Vial) 50 mcg IVPUSH Q5M PRN; Protocol PRN Reason: Pain, Moderate (Pain Scale 4-6 Hydromorphone HCl (Hydromorphone Hcl 0.5 Mg/0.5 Ml Syringe) 0.5 mg IVPUSH Q5M PRN; Protocol PRN Reason: Pain, Severe (Pain Scale 7-10) Lactated Ringer's (Lr) 1,000 mls @ 100 mls/hr IVCONT .Q10H FATOU Promethazine HCl 6.25 mg/ (Sodium Chloride) 50.25 mls @ 201 mls/hr IV ONCE PRN PRN Reason: Nausea and Vomiting Ondansetron HCl (Ondansetron Hcl 4 Mg/2 Ml Vial) 4 mg IVPUSH ONCE PRN PRN Reason: Nausea and Vomiting Oxycodone HCl (Oxycodone Hcl Immed Release 5 Mg Tablet) 10 mg PO ONCE PRN PRN Reason: Pain, Mild (Pain Scale 1-3) Time Spent With Patient Time: Total time spent is greater than 50% in coordination of care (as documented) at patient's floor/unit and/or counseling patient: Quality Stroke Does the patient have a stroke diagnosis?: No VTE Prior VTE?: No VTE Risk Level:: Surgical - moderate VTE Device Contraindication: N/A - Device Ordered VTE Drug Contraindication: Treatment Not Indicated
[2021-08-22 11:45] LABS: Glucose, Whole Blood 169 mg/dL (60-115)
--- NOTE | 2021-08-22 14:12 | PM.DS ---
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 DISCHARGE DIAGNOSIS: same, s/p laparoscopic sleeve gastrectomy ? PAST SURGICAL HISTORY: carpal tunnel release, Bilateral TKR, partial hysterectomy, laparoscopic cholecystectomy ? PROCEDURE: upper endoscopy, laparoscopic sleeve gastrectomy ? DISCHARGE SUMMARY: ? History of Present Illness: ? The patient is a?61 year-old woman with a BMI of?36.8 kg/m2 and associated co-morbidities as described above. The patient had extensive work-up,lost?16.8 lbs preoperatively and was electively scheduled for laparoscopic, possible open sleeve gastrectomy and gastropexy. Risks and complications of the surgery were discussed with the patient in advance, particularly the possibility of , pulmonary embolism, anastomotic leak, bleeding, bowel injury, GERD, cardiac, renal or pulmonary complications. The patient understood all the risks and was in agreement with the surgical plan. ? Hospital Course: ? The patient underwent an uneventful laparoscopic sleeve gastrectomy with gastropexy on the day of admission. Postoperatively, the patient was transferred to the surgical floor. The patient received IV Acetaminophen and IV dilaudid for pain control. Patient was started on bariatric phase 1 diet POD #0. On postoperative day one, the patient was feeling well without nausea, vomiting, fevers, or tachycardia. The patient had some mild incisional pain and the abdomen was soft. ? On the morning of postoperative day one, the patient was continued on 1 ounce of water or ice every half hour. During the day, the patient did fairly well, having some incisional pain, but able to ambulate adequately and to tolerate liquids well. ? Since the patient is doing well, we decided that the patient was ready to be discharged. The patient was given instructions to follow-up with me next week and to call my office for any fever over 101, persistent abdominal pain, nausea, vomiting, GERD, symptoms of DVT such as calf tenderness, or leg swelling, or pulmonary embolism such as chest pain or shortness of breath. The patient was also instructed to drink 40-60 ounces of liquids per day using the 1-ounce cups. The patient had been given prescriptions for Tylenol for pain, Zofran prn for nausea, and pantoprazole and carafate previously. The patient was encouraged to ambulate and use the incentive spirometer. The patient was allowed to shower, but no baths, and encouraged to stay active at home. All of these instructions were given to the patient personally. All questions were answered and the patient understood all instructions, the instructions were also given to the patient in print. Time Spent with Patient Time attestation: Total time spent providing and/or coordinating discharge services: Discharge coordination time: Less than 30 minutes Quality: Safe Use of Opioids Does Pt have an Active Cancer Diagnosis on the Problem List?: No Quality: Stroke Does the patient have a stroke diagnosis?: No Physical Exam Vital Signs: Vital Signs: Last Vital Signs Temp 98.1 F 08/22/21 14:03 Pulse 65 08/22/21 14:08 Resp 16 08/22/21 14:08 BP 140/68 H 08/22/21 14:08 Pulse Ox 96 08/22/21 14:08 BMI result Body Mass Index 33.8 DS: Data Data Completed and Pending Pending studies at discharge: Pending at discharge 08/22/21 13:29 Surgical [PTH] Routine Labs on day of discharge: Laboratory Results - last 24 hr 08/21/21 08/22/21 08/22/21 13:46 09:45 10:12 POC Glucose 169 H COVID-19 ([facility]) Negative COVID-19 Clin Com See Note Blood Type O Positive Antibody Screen NEGATIVE Discharge Plan Discharge Patient Disposition: Home, Self-Care Discharge Diagnosis: s/p laparoscopic sleeve gastrectomy Referrals: Kaley Jacobson MD [Primary Care Provider] - 1 Week Discharge Medications: Continued (DME) FreeStyle Lite Strips Strip See Rx Instructions .Route Qty: 100 0RF Rx Instructions: As directed test blood sugar three times a day Earlene Mead U-300 Insulin 300 unit/mL (1.5 mL) insulin pen 10 unit subcut BEDTIME 0RF lorazepam 0.5 mg tablet 0.5 mg PO DAILY PRN (Reason: Anxiety) 0RF (DME) lancets 28 gauge misc See Rx Instructions ea topical .MEDSUPPLY Qty: 100 6RF Rx Instructions: 3 times a day fluoxetine 20 mg capsule 20 mg PO DAILY 0RF metoprolol succinate 100 mg tablet extended release 24 hr 100 mg PO DAILY 0RF lisinopril 40 mg tablet 40 mg PO DAILY 0RF amlodipine 10 mg tablet 10 mg PO DAILY 0RF alendronate 70 mg tablet 70 mg PO FR 0RF fluticasone propionate 50 mcg/actuation spray,suspension 1 spray intranasal DAILY PRN (Reason: nasal congestion) 0RF pantoprazole 40 mg tablet,delayed release (DR/EC) 40 mg PO DAILY Qty: 30 2RF Held atorvastatin 20 mg tablet 20 mg PO DAILY 0RF Hold Instructions: Resume on 08/30/21. gabapentin 400 mg capsule 400 mg PO BEDTIME 0RF Hold Instructions: Resume on 09/06/21. Discontinued Synjardy XR 12.5-1,000 mg tablet, IR - ER, biphasic 24hr 2 tab PO DAILY 0RF Trulicity 3 mg/0.5 mL pen injector 3 mg subcut FR 0RF furosemide 20 mg tablet 20 mg PO Q2D 0RF cholecalciferol (vitamin D3) 50 mcg (2,000 unit) capsule 50 mcg PO DAILY Qty: 30 6RF cyanocobalamin (vitamin B-12) 1,000 mcg tablet, sublingual 1,000 mcg sublingual DAILY 30 Days Qty: 30 6RF Discharge Orders: Discharge Order (Routine); Ordered 08/23/21 Ordered By: Jose L Jackson Diet: other Activity on Discharge: No heavy lifting Stand Alone Forms: Patient Portal Discharge page Care Plan Goals: weight loss Health Concerns: obesity Plan of Treatment: No tub baths, sex or returning to work until discussed at first post op appointment. No exercise, alcohol, tobacco or illegal drug use. Continue to use incentive spirometer hourly while awake. Walk in home for 5- 10 minutes every 2 hours during the first week. Follow all instructions in the bariatric handbook and call with any questions.Discharge Instructions 1. Please call your doctor or come back to the emergency room should any new symptoms arise. 2. You will receive a courtesy call from [facility] 24-48 hours after discharge. 3. Activity: abstain from alcohol, practice limited stair climbing, no bending, no driving, no exercise, no illicit substances, no lifting, no sex, no tub bath, no work. 4. Diet: continue as discussed with Dr. Jackson. 5. Dressing Change/Wound Care: Your incision is covered by clear bandages and guaze underneath. If the area is tender, you may apply an ice pack for short intervals (no more than 20 minutes on, followed by at least 20 minutes off). Do not apply heat. Do not use creams, lotions, or topical antibiotics unless instructed to do so by your surgeon. These can cause infection or allergic reaction. 6. Call your doctor if: - Your temperature exceeds 101.5 F - You experience excessive pain or swelling - You have an unexpected reaction to medication - You have excessive bleeding - You experience continued vomiting/nausea - Your incision begins to separate - Your incision shows signs of infection such as increased redness, swelling, excessive pain, heat, or drainage (light blood or clear fluid is normal) 7. General instructions: No lifting greater than 5 lbs for the next 4 weeks[address] driving within 24 hours of taking narcotic pain medications. If you do not move your bowels in the next 2 days, please take milk of magnesia over the counter. Please follow the post op diet and do not advance your diet until you are seen in the office in about 2 weeks. Please walk around your home every hour or two to prevent blood clots from forming in your legs. You do not need to wake from sleeping to walk. Please sleep in a bed or couch to prevent kinking at the hips and knees. Please take your incentive spirometer (your lung program engagement director) home with you and use it for the next few days to prevent pneumonias. You may shower, no hot tubs, baths or swimming pools. Please call the office with any questions or concerns such as increasing abdominal pain, fever, chills, shortness of breath, chest pain, leg pain or swelling, or redness or drainage from your incisions. Please stay on stage 3 diet which includes sugar free clear liquids such as ice pops and jello and broth and crystal light. Avoid all carbonation. Please drink 3 protein shakes with at least 25-30 grams of protein daily or 3 of the Celebrate 4:1 shakes which can be purchased in our office. The Celebrate shakes have all of the bariatric vitamins you need if you consume these shakes. If you are drinking other protein shakes, you will need to purchase the Celebrate multivitamins and calcium that we provide in the office (they will provide all the vitamins you need). Please make sure you are consuming at least 40-60 ounces of water in addition to your 3 protein shakes daily. Do not hesitate to contact the office with any questions at . The patient's medical history has been reviewed and they are considered low risk for post op DVT and therefore DVT prophylaxis is not considered necessary. Travel after surgery was reviewed. The patient has not disclosed any travel plans during the first 30 days after surgery and they have been advised that within the first 30 days after surgery any bus, plane, train or car travel over 2 hours in duration is contraindicated due to the possibility of developing blood clots from immobility. Any travel, needs to include periods of ambulation of 10 minutes in duration every 2 hours.? The patient was instructed to discuss any plans for travel during this period with their bariatric surgeon. Assessment: stable s/p laparoscopic sleeve gastrectomy Discharge Date/Time: 08/23/21 09:52
[2021-08-22] MEDS: Famotidine/PF 20 MG/2 ML VIAL IVPUSH ×2 (14:55→20:35)
[2021-08-22 15:00] LABS: Hematocrit 40.3 % (37.0-47.0); Hemoglobin 12.4 g/dl (12.0-16.0)
[2021-08-22 15:13] LABS: Anion Gap 13 (12-20); Blood Urea Nitrogen 23 mg/dL (9-16); Carbon Dioxide 29 mmol/L (22-29); Chloride 102 mmol/L (96-108); Estimated Glomerular Filt Rate 34; Glucose Random 174 mg/dL (60-115); Potassium 4.5 mmol/L (3.3-5.1); Sodium 139 mmol/L (135-145)
--- NOTE | 2021-08-22 16:07 | PHA.MEDREC ---
Pharmacy Consult ? Medication Reconciliation Pharmacy has completed the medication reconciliation.
[2021-08-22] MEDS: ceFAZolin Sodium/Dextrose,Iso 2 GM/50 ML PIGGYBACK IV (17:07)
[2021-08-22] MEDS: 0.9 % Sodium Chloride Flush 3 ML SYRINGE IVFLUSH (20:35)
[2021-08-22] MEDS: ondansetron HCL 4 MG/2 ML VIAL IVPUSH (22:35)
[2021-08-23] MEDS: Lactated Ringers 1,000 ML 100 ML IVCONT (00:30)
[2021-08-23 04:00] VITALS: BP 157/73; PULSE 62; RESP 17; TEMP 36.1; O2SAT 97
[2021-08-23 06:08] LABS: MANUAL DIFF FLAG NO
[2021-08-23] MEDS: amLODIPine Besylate 10 MG TABLET PO (06:12)
[2021-08-23] MEDS: ondansetron HCL 4 MG/2 ML VIAL IVPUSH (06:13)
[2021-08-23 06:28] LABS: Anion Gap 13 (12-20); Blood Urea Nitrogen 24 mg/dL (9-16); Calcium 9.3 mg/dL (8.4-10.2); Carbon Dioxide 26 mmol/L (22-29); Chloride 102 mmol/L (96-108); Estimated Glomerular Filt Rate 35; Glucose Random 198 mg/dL (60-115); Potassium 4.4 mmol/L (3.3-5.1); Sodium 137 mmol/L (135-145)
[2021-08-23 06:29] LABS: Basophils Percent Auto 0.1 % (0-2); Hematocrit 37.6 % (37.0-47.0); Imm Gran Abs Auto 0.06 X10*3/uL (0.00-0.03); Imm Gran Pct Auto 0.6 % (0.0-0.4); Lymphocytes Absolute Auto 1.2 X10*3/uL (1.2-4.9); Mean Corpuscular HGB Conc 31.9 g/dl (31.0-35.0); Mean Corpuscular Hemoglobin 26.4 pg (27.0-33.0); Mean Corpuscular Volume 82.6 fL (80.0-98.0); Mean Platelet Volume 12.1 fL (9.4-12.3); Monocytes Absolute Auto 0.5 X10*3/uL (0.1-1.2); Neutrophils Absolute Auto 8.7 x10*3/uL (2.0-8.3); Neutrophils Percent Auto 83.3 % (45-73); Platelet Count 228 X10*3/uL (160-400); Red Blood Count 4.55 X10*6/uL (4.20-5.50); Red Cell Distribution Width 14.8 % (11.0-16.0); White Blood Count 10.5 X10*3/uL (4.8-10.8)
[2021-08-23] MEDS: Famotidine/PF 20 MG/2 ML VIAL IVPUSH (07:15)
[2021-08-23 07:43] VITALS: BP 144/89; PULSE 66; RESP 18; TEMP 36.1; O2SAT 97
[2021-08-23 08:00] LABS: Glucose, Whole Blood 169 mg/dL (60-115)
[2021-08-23] MEDS: lisinopriL 40 MG TABLET PO (08:09)
--- NOTE | 2021-08-23 10:56 | HO.POSTANES ---
Post Anesthesia Evaluation Post Anesthesia Evaluation Vital Signs: Vital Signs Temp Pulse Resp BP Pulse Ox 08/23/21 07:43 96.9 F 66 18 144/89 H 97 08/23/21 04:00 97.0 F 62 17 157/73 H 97 08/22/21 23:51 97.7 F 63 14 160/76 H 93 Anesthesia: General Endotracheal-GETA Mental Status: Awake Pain Control: Satisfactory Nausea/Vomiting: None Hydration: Adequate Anesthesia-Related Issues: No Anes. Related Issues
== END 2021-08-23 09:52 | disposition home or self-care (01) | DRG 621 ==
LOC: HO.SSSA 11:26 → HO.S3 13:01
PROVIDERS: Physician Assistant; Physician Assistant Surgical; Admitting Provider Surgery; PCP Internal Medicine; Visit Provider Surgery
PROC: 0DB64Z3 Excision of Stomach, Percutaneous Endoscopic Approach, Vertical (ICD-10-PCS; CPT 43845; principal; 2021-08-22 11:00)
DX: E66.01 Morbid (severe) obesity due to excess calories (principal); F41.9 Anxiety disorder, unspecified; K21.9 Gastro-esophageal reflux disease without esophagitis; E11.42 Type 2 diabetes mellitus with diabetic polyneuropathy; I12.9 Hypertensive chronic kidney disease with stage 1 through stage 4 chronic kidney disease, or unspecified chronic kidney disease; E11.22 Type 2 diabetes mellitus with diabetic chronic kidney disease; N99.4 Postprocedural pelvic peritoneal adhesions; N18.9 Chronic kidney disease, unspecified; F32.A Depression, unspecified; E78.5 Hyperlipidemia, unspecified; Z20.822 Contact with and (suspected) exposure to COVID-19; Z96.653 Presence of artificial knee joint, bilateral; Z91.040 Latex allergy status; Z68.33 Body mass index [BMI] 33.0-33.9, adult; Z79.4 Long term (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 insulin; Z79.51 Long term (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 inhaled steroids; Z79.899 Other long term (current) drug therapy
CPT/HCPCS: 36415; 71046; 80048; 80053; 80061; 82947; 83036; 83525; 84439; 84443; 85014; 85018; 85025; 85610; 85730; 86140; 86850; 86900; 86901; 87635; 88307; 88342; 93005; 99024; A4649; C9399; J0131; J0690; J1100; J1170; J2250; J2370; J2405; J3010; Q9967

== ENCOUNTER → 2021-08-28 13:50 | Outpatient (BNVA) | payer OTHER, SELFPAY | PROVIDERS: PCP Internal Medicine; Visit Provider Surgery | DX: E66.9 Obesity, unspecified (principal); Z48.815 Encounter for surgical aftercare following surgery on the digestive system; Z79.899 Other long term (current) drug therapy; Z71.3 Dietary counseling and surveillance | CPT/HCPCS: 99212 ==

== ENCOUNTER → 2021-09-06 11:36 | Outpatient (BNVA) | payer OTHER, SELFPAY | PROVIDERS: PCP Internal Medicine; Visit Provider Physician Assistant | DX: Z13.89 Encounter for screening for other disorder (principal) ==

== ENCOUNTER 2021-09-18 09:13 | Outpatient (REF) | payer OTHER, SELFPAY ==
[2021-09-18 12:51] LABS: Free T4 (Free Thyroxine) 0.88 ng/dL (0.71-1.85); Thyroid Stimulating Hormone 0.14 uIU/mL (0.32-4.0)
[2021-09-19 22:30] LABS: Triiodothyronine T3 Free 3.1 pg/mL (2.3-4.2)
[2021-09-21 15:35] LABS: Thyroid Stimulating Immunoglob <89 % baseline (<140)
== END 2021-09-18 09:14 | disposition home or self-care (01) ==
LOC: HO.LAB 09:13
PROVIDERS: PCP Internal Medicine; Visit Provider Internal Medicine Endocrinology, Diabetes & Metabolism
DX: E11.65 Type 2 diabetes mellitus with hyperglycemia (principal); E04.2 Nontoxic multinodular goiter
CPT/HCPCS: 36415; 82947; 84439; 84443; 84445; 84481; 99212

== ENCOUNTER → 2021-09-28 11:06 | Outpatient (BNVA) | payer OTHER, SELFPAY | PROVIDERS: PCP Internal Medicine; Visit Provider Physician Assistant | DX: E66.9 Obesity, unspecified (principal); E11.9 Type 2 diabetes mellitus without complications; Z98.84 Bariatric surgery status; Z68.31 Body mass index [BMI] 31.0-31.9, adult; Z79.4 Long term (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 insulin | CPT/HCPCS: 99212 ==

== ENCOUNTER → 2021-11-21 14:07 | Outpatient (BNVA) | payer OTHER, SELFPAY | PROVIDERS: Referring Provider Surgery; Visit Provider Physician Assistant | DX: E66.9 Obesity, unspecified (principal); Z68.31 Body mass index [BMI] 31.0-31.9, adult; Z98.84 Bariatric surgery status | CPT/HCPCS: 99212 ==

== ENCOUNTER → 2021-11-29 07:52 | Outpatient (BNVA) | payer OTHER, SELFPAY | PROVIDERS: PCP Internal Medicine; Visit Provider Internal Medicine Endocrinology, Diabetes & Metabolism | DX: E11.65 Type 2 diabetes mellitus with hyperglycemia (principal); E04.2 Nontoxic multinodular goiter | CPT/HCPCS: 82947; 99212 ==

== ENCOUNTER 2021-12-02 14:24 | Emergency (ER) | payer OTHER, SELFPAY ==
--- NOTE | ~2021-12-02 | XR_ITS ---
EXAMINATION: XR FOOT, LEFT CLINICAL INFORMATION: Small toe injury. COMPARISON: None TECHNIQUE: AP, lateral, and oblique views of the left foot. FINDINGS: Mild diffuse osteopenia. The bony alignments are intact. The cortices are intact. The soft tissues are unremarkable. XR/XR foot LT min 3V IMPRESSION: Mild diffuse osteopenia. No radiographic evidence of any acute posttraumatic changes are present involving the left small toe.
[2021-12-02 14:42] VITALS: BP 130/86; PULSE 67; RESP 18; TEMP 36.8; O2SAT 95; BMI 30.2
--- NOTE | 2021-12-02 16:18 | ED_ITS ---
HPI - Extremity Injury (Lower) General Chief Complaint: Extremity Injury, Lower Stated Complaint: L foot inj Time Seen by Provider: 12/02/21 16:13 Source: patient Mode of arrival: ambulatory Limitations: language barrier (Argent[place] Speaking ) History of Present Illness HPI Narrative: 61-year-old female presenting to the ED with complaints of left foot pain/toe pain especially when she puts weight or palpates it or walks after she accidentally bumped her foot into her 's oxygen sting. She denies any other injuries complaints or concerns at this time. 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) Injury: Left: foot Type of Injury: blunt Place: home Severity: mild Relieving factors: nothing Exacerbating factors: weight bearing, movement and palpation Context: direct blow (with an oxygen tank) Associated symptoms: swelling and able to partially bear weight Other symptoms: none Related Data Home Medications Medication Instructions Recorded Confirmed amlodipine 10 mg tablet 10 mg PO DAILY 02/05/20 11/21/21 atorvastatin 20 mg tablet 20 mg PO DAILY 02/05/20 11/21/21 fluticasone propionate 50 1 spray intranasal DAILY PRN nasal 07/19/20 11/21/21 mcg/actuation nasal congestion spray,suspension lorazepam 0.5 mg tablet 0.5 mg PO DAILY PRN Anxiety 07/19/20 11/21/21 insulin glargine U-300 conc 300 10 unit subcut BEDTIME takes 5- 10 08/22/21 11/21/21 unit/mL (1.5 mL) subcutaneous pen untis prn ([place] SoloStar U-300 Insulin) metoprolol succinate 100 mg 25 mg PO DAILY 10/22/21 11/21/21 tablet,extended release 24 hr fluoxetine 40 mg capsule 40 mg PO QAM 11/21/21 11/21/21 sucralfate 100 mg/mL oral 10 ml PO BID 11/21/21 11/21/21 suspension Previous Rx's Medication Instructions Recorded lancets 28 gauge #100 ea 08/28/20 pantoprazole 40 mg tablet,delayed 40 mg PO DAILY #30 tabs 08/08/21 release cholecalciferol (vitamin D3) 50 50 mcg PO DAILY #30 caps 09/06/21 mcg (2,000 unit) capsule lancets 28 gauge (FreeStyle #100 boxes 09/09/21 Lancets) blood sugar diagnostic (FreeStyle #100 ea 09/18/21 Lite Strips) methimazole 5 mg tablet 5 mg PO DAILY #30 tabs 11/29/21 acetaminophen 300 mg-codeine 30 mg 1 tab PO Q8H PRN pain #14 tabs 12/02/21 tablet Allergies Allergy/AdvReac Type Severity Reaction Status Date / Time latex [LATEX] Allergy Mild RASH Verified 12/02/21 14:42 Review of Systems Review of Systems: Constitutional : No Weight loss, No Fever, No Chills, No Night Sweats, No Fatigue, No Malaise ENT/Mouth : No Hearing loss, No Ear Pain, No Nasal Congestion, No Sinus Pain, No Hoarseness, No sore throat, No Rhinorrhea, No Swallowing Difficulty Eyes: No Eye Pain, No Swelling, No Redness, No Foreign Body, No Discharge, No Vision Changes Cardiovascular : No Chest Pain, No SOB, No Dyspnea on Exertion, No Orthopnea, No Edema, No Palpitations Respiratory : No Cough, No Sputum, No Wheezing, No Smoke Exposure, No Dyspnea Gastrointestinal : No Nausea, No Vomiting, No Diarrhea, No Constipation, No abdominal Pain, No Hematochezia, No Melena Genitourinary : no irregular bleeding, No Dysuria, No Urinary Frequency, No Hematuria, No Urinary Incontinence, No Urgency, No Flank Pain, No Urinary Flow Changes, No Hesitancy Musculoskeletal : + left foot joint pain, No Myalgias, No Joint Swelling Skin : No Skin Lesions, No rash Neuro : No Weakness, No Numbness, No Paresthesias, No Loss of Consciousness, No Dizziness, No Headache Psych : No Anxiety/Panic, No Depression, No SI/HI/AH/VH, No Social Issues, Heme/Lymph: No Bruising, No Bleeding,No Lymphadenopathy Endocrine : No Polyuria, No Polydipsia, No Temperature Intolerance Yes all other systems are reviewed and are negative [facility] Past Medical History Attestation statement: The following information was validated with the patient. Source: old records reviewed and nursing notes reviewed Medical History Anxiety B12 deficiency BMI 34.0-34.9,adult BMI 35.0-35.9,adult BMI 36.0-36.9,adult Chronic kidney disease Chronic renal insufficiency COVID-19 vaccine series completed Cyst, kidney, acquired Depression Diabetes type 2, uncontrolled Diabetic neuropathy Diabetic 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 with type 2 diabetes mellitus Distal radius fracture, right Dyslipidemia GERD (gastroesophageal reflux disease) HTN (hypertension) retirement (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 insulin Nephrolithiasis Non-toxic multinodular goiter Obesity (BMI 30-39.9) Pre-op evaluation Tachycardia Toxic multinodul goiter Surgical History H/O colonoscopy History of carpal tunnel release (~2018) History of section History of esophagogastroduodenoscopy (EGD) History of partial hysterectomy History of surgery History of total left knee replacement (~2010) History of total right knee replacement Hx of biopsy Hx of cholecystectomy S/P fine needle aspiration S/P laparoscopic sleeve gastrectomy Family History Family History Father Hypertension Diabetes History of kidney cancer Mother Diabetes Hypertension Heart disease Brother Hypertension Diabetes Brother No problems noted. Son Hypertension Prediabetes Heart disease Daughter Prediabetes Social History Social History Are you a primary manager career to a significant other at home: No Do you presently have visiting nurse or other home services: Yes ([facility]) Alcohol intake: never Patient Tobacco Use Status: Never used Tobacco Advance Directives: No Advance Directives Information Provided: Yes Physical Exam Vital Signs: Vital Signs: Last Vital Signs Temp 98.3 F 12/02/21 14:42 Pulse 67 12/02/21 14:42 Resp 18 12/02/21 14:42 BP 130/86 12/02/21 14:42 Pulse Ox 95 12/02/21 14:42 O2 Del Method 12/02/21 14:42 BMI result Body Mass Index 30.2 vital signs have been reviewed as normal and appeared to be correct. Blood pressure normal Heart rate normal. Respiration rate normal. Temperature normal. Oxygen saturation normal. Appearance: Alert. Oriented X3. No acute distress. Head: Normal external exam. Normocephalic. Atraumatic. Eyes: PERRLA. EOMI. Conjunctiva and sclera normal. Eyelids normal. ENT: Pharynx normal. Uvula midline. Moist mucous membranes. Neck: Normal inspection. Neck supple. FROM. CVS: Normal heart rate and rhythm. Respiratory: No respiratory distress. Painless inspiration. Skin: Skin warm and dry. Normal skin color. Normal skin turgor. No rashes/lesions/lacerations noted. Extremities: To left foot at the 3/4 and 5th digits patient has mild tenderness palpation soft tissue swelling. No obvious ligamentous or tendon injury noted. Achilles tendon is intact. Negative Polanco test. Otherwise all other extremities exhibit normal range of motion nontender. No lower extremity edema or calf tenderness noted bilaterally. Neuro: Oriented X 3. No motor deficit. No sensory deficit. Reflexes normal. Normal steady gait. No focal neuro deficits noted. Vascular: + radial pulses/+ 2 distal pedal pulses/+2 dorsalis pedis b/l. Normal cap refill. No cyanosis noted to upper extremity nails and lower extremity toes nails. Course Course Course Narrative: Patient negative for any acute processes. Patient most likely toe/foot sprain. Will treat symptomatically placed in an Stanislaw wrap and crutches due to patient reports and instruct to return if any new or worsening symptoms follow up with primary care provider. Patient understands agrees with this plan. MDM - Extremity Injury (Lower) Medical Records Attestation: I reviewed the patient's medical records. Imaging Data Left foot x-ray: Attestation: I personally reviewed and interpreted this imaging study as follows: Radiologist's impression: FINDINGS: Mild diffuse osteopenia. The bony alignments are intact. The cortices are intact. The soft tissues are unremarkable.? XR/XR foot LT min 3V IMPRESSION: Mild diffuse osteopenia. No radiographic evidence of any acute posttraumatic changes are present involving the left small toe. Procedures Orthopedic Splinting/Casting Injury #1: Side: left Lower Extremity Injury Location: foot and toe Lower Extremity Immobilizer: Stanislaw wrap Other Orthopedic Equipment: crutches Discharge Plan Discharge Clinical Impression: Sprain of foot, left Patient Disposition: Home, Self-Care Instructions: Crutch Instructions (ED), How to Use an Elastic Bandage (ED), Foot Sprain (ED) Prescriptions: New acetaminophen-codeine 300-30 mg tablet 1 tab PO Q8H PRN (Reason: pain) Qty: 14 0RF No Action cholecalciferol (vitamin D3) 50 mcg (2,000 unit) capsule 50 mcg PO DAILY Qty: 30 5RF (DME) lancets [FreeStyle Lancets] 28 gauge misc See Rx Instructions .Route Qty: 100 8RF Rx Instructions: As directed Earlene GarciaoStar U-300 Insulin 300 unit/mL (1.5 mL) insulin pen 10 unit subcut BEDTIME lorazepam 0.5 mg tablet 0.5 mg PO DAILY PRN (Reason: Anxiety) (DME) lancets 28 gauge misc See Rx Instructions topical .MEDSUPPLY Qty: 100 6RF Rx Instructions: 3 times a day amlodipine 10 mg tablet 10 mg PO DAILY atorvastatin 20 mg tablet 20 mg PO DAILY Hold Instructions: Resume on 08/30/21. fluticasone propionate 50 mcg/actuation spray,suspension 1 spray intranasal DAILY PRN (Reason: nasal congestion) metoprolol succinate 100 mg tablet extended release 24 hr 25 mg PO DAILY pantoprazole 40 mg tablet,delayed release (DR/EC) 40 mg PO DAILY Qty: 30 2RF fluoxetine 40 mg capsule 40 mg PO QAM sucralfate 100 mg/mL suspension 10 ml PO BID (DME) FreeStyle Lite Strips Strip See Rx Instructions .Route Qty: 100 0RF Rx Instructions: As directed test blood sugar three times a day methimazole 5 mg tablet 5 mg PO DAILY Qty: 30 4RF Referrals: Tenzin Jacobson MD [Primary Care Provider] - 2 days Print Language: Argentine
== END 2021-12-02 16:45 | disposition home or self-care (01) ==
PROVIDERS: Emergency Provider Internal Medicine; PCP Internal Medicine
DX: S93.602A Unspecified sprain of left foot, initial encounter (principal); M79.672 Pain in left foot; Y29.XXXA Contact with blunt object, undetermined intent, initial encounter; Y93.9 Activity, unspecified; Y92.9 Unspecified place or not applicable; Y99.9 Unspecified external cause status; Z79.899 Other long term (current) drug therapy
CPT/HCPCS: 29515; 73630; 99283

== ENCOUNTER 2021-12-12 11:50 | Emergency (ER) | payer OTHER, SELFPAY ==
--- NOTE | ~2021-12-12 | XR_ITS ---
EXAMINATION: XR FOOT, RIGHT CLINICAL INFORMATION: Decreased range of motion. Foot and heel pain. COMPARISON: None TECHNIQUE: AP, lateral, and oblique views of the right foot. FINDINGS: There is no acute fracture or dislocation. The tarsal bones are normally aligned. There is a small plantar calcaneal spur. The soft tissues are unremarkable. XR/XR foot RT min 3V IMPRESSION: Small plantar calcaneal spur without other significant abnormality.
[2021-12-12 12:40] VITALS: BP 133/52; PULSE 56; RESP 18; TEMP 36.8; O2SAT 99; BMI 30.2
--- NOTE | 2021-12-12 14:13 | ED_ITS ---
HPI - Extremity Problem General Chief complaint: Extremity Problem Stated complaint: R foot pain Time Seen by Provider: 12/12/21 13:34 Source: patient Mode of arrival: ambulatory History of Present Illness HPI Narrative: 61-year-old femle with a PMH of anxiety, CKD, depression, diabetes type II, diabetic neuropathy, GERD, HTN, double knee replacement, presents for atraumatic right-sided heel pain for three days. The patient reports sudden onset. She states having a bone spur before, but the symptoms today are not the same. She says she cannot bend or flex her ankle due to the pain. She states that she feelings a boiling sensation around her heel when in pain. She denies fever, chills, chest pain, SOB, nausea, vomiting, and abdominal pain. MD Complaint: extremity pain Onset (ago): day(s) Related Data Home Medications Medication Instructions Recorded Confirmed amlodipine 10 mg tablet 10 mg PO DAILY 02/05/20 11/21/21 atorvastatin 20 mg tablet 20 mg PO DAILY 02/05/20 11/21/21 fluticasone propionate 50 1 spray intranasal DAILY PRN nasal 07/19/20 11/21/21 mcg/actuation nasal congestion spray,suspension lorazepam 0.5 mg tablet 0.5 mg PO DAILY PRN Anxiety 07/19/20 11/21/21 insulin glargine U-300 conc 300 10 unit subcut BEDTIME takes 5- 10 08/22/21 11/21/21 unit/mL (1.5 mL) subcutaneous pen untis prn ([place] SoloStar U-300 Insulin) metoprolol succinate 100 mg 25 mg PO DAILY 10/22/21 11/21/21 tablet,extended release 24 hr fluoxetine 40 mg capsule 40 mg PO QAM 11/21/21 11/21/21 sucralfate 100 mg/mL oral 10 ml PO BID 11/21/21 11/21/21 suspension Previous Rx's Medication Instructions Recorded lancets 28 gauge #100 ea 08/28/20 pantoprazole 40 mg tablet,delayed 40 mg PO DAILY #30 tabs 08/08/21 release cholecalciferol (vitamin D3) 50 50 mcg PO DAILY #30 caps 09/06/21 mcg (2,000 unit) capsule lancets 28 gauge (FreeStyle #100 boxes 09/09/21 Lancets) blood sugar diagnostic (FreeStyle #100 ea 09/18/21 Lite Strips) methimazole 5 mg tablet 5 mg PO DAILY #30 tabs 11/29/21 acetaminophen 300 mg-codeine 30 mg 1 tab PO Q8H PRN pain #14 tabs 12/02/21 tablet Allergies Allergy/AdvReac Type Severity Reaction Status Date / Time latex [LATEX] Allergy Mild RASH Verified 12/02/21 14:42 Review of Systems Review of Systems: Constitutional: No Weight loss, No Fever, No Chills ENT/Mouth: No Ear Pain, No Nasal Congestion, No Sinus Pain Cardiovascular: No Chest Pain, No SOB Respiratory: No Cough, No Sputum, No Wheezing Gastrointestinal: No Nausea, No Vomiting, No Diarrhea, No Constipation, No Abdo marlys pain Genitourinary: No Dysuria, No Urinary Frequency, No Hematuria, No Urinary Incontinence Musculoskeletal: +Joint Pain, No Myalgias, No Joint Swelling Skin: No Skin Lesions, No Rash Neuro: No Weakness, No Numbness, No Paresthesias Yes all other systems are reviewed and are negative Constitutional: Constitutional: Reports as per [facility] Past Medical History Attestation statement: The following information was validated with the patient. Medical History Anxiety B12 deficiency BMI 34.0-34.9,adult BMI 35.0-35.9,adult BMI 36.0-36.9,adult Chronic kidney disease Chronic renal insufficiency COVID-19 vaccine series completed Cyst, kidney, acquired Depression Diabetes type 2, uncontrolled Diabetic neuropathy Diabetic 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 with type 2 diabetes mellitus Distal radius fracture, right Dyslipidemia GERD (gastroesophageal reflux disease) HTN (hypertension) nursing home (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 insulin Nephrolithiasis Non-toxic multinodular goiter Obesity (BMI 30-39.9) Pre-op evaluation Tachycardia Toxic multinodul goiter Surgical History H/O colonoscopy History of carpal tunnel release (~2017) History of section History of esophagogastroduodenoscopy (EGD) History of partial hysterectomy History of surgery History of total left knee replacement (~2010) History of total right knee replacement Hx of biopsy Hx of cholecystectomy S/P fine needle aspiration S/P laparoscopic sleeve gastrectomy Family History Family History Father Hypertension Diabetes History of kidney cancer Mother Diabetes Hypertension Heart disease Brother Hypertension Diabetes Brother No problems noted. Son Hypertension Prediabetes Heart disease Daughter Prediabetes Social History Social History Are you a primary home care coordinator to a significant other at home: No Do you presently have visiting nurse or other home services: Yes ([facility]) Alcohol intake: never Patient Tobacco Use Status: Never used Tobacco Advance Directives: No Advance Directives Information Provided: Yes Physical Exam Vital Signs: Vital Signs: Last Vital Signs Temp 98.2 F 12/12/21 12:40 Pulse 56 12/12/21 12:40 Resp 18 12/12/21 12:40 BP 133/52 L 12/12/21 12:40 Pulse Ox 99 12/12/21 12:40 O2 Del Method 12/12/21 12:40 BMI result Body Mass Index 30.2 Const: General: cooperative, healthy appearing and no acute distress Orientation/consciousness: patient oriented x3 Limitations: no limitations HEENT: Head: Yes normal to inspection and Yes atraumatic Ears: hearing grossly normal bilaterally General nose exam: Normal external nose present Face and sinus: Yes normal facial exam Eyes: General: appearance normal, both eyes and all related structures EOM: EOMs intact bilaterally Neck: Neck: Yes normal visual inspection and Yes no meningeal signs Resp: Effort & Inspection: normal respiratory effort and no respiratory distress Auscultation: clear to auscultation bilaterally Cardio: Rate: regular rate Heart sounds: S1 normal heart sound present and S2 normal heart sound present Skin: Rashes: no rashes Wounds: no wounds Neuro: General: patient oriented x3, tone normal and no meningeal signs Gait exam (Neuro): Normal gait present Extrem: Other: Right calcaneus tender when palpated on medial/lateral aspects. Ankle flexion/extension intact but slightly limited 2nd pain. No Swelling/erythema, no streaking, no fluctuance/induration. Negative Polanco's Test. NV intact General: Yes normal to inspection, Yes capillary refill normal and Yes no calf tenderness Course Course Course Narrative: 14:00 -- XR foot RT min 3V IMPRESSION: Small plantar calcaneal spur without other significant abnormality. > Stanislaw wrap applied for comfort and stability. Results discussed a workers compensation legal secretary. Recommended podiatry follow-up MDM - Extremity (Nontraumatic) MDM Narrative Medical decision making narrative: 61-year-old femle with a PMH of anxiety, CKD, depression, diabetes type II, diabetic neuropathy, GERD, HTN, double knee replacement, presents for right- sided heel pain for three days. On exam, vital signs stable, NAD, non-toxic appearing. Negative Polanco's test. Good ROM secondary to pain. Pain is reproducible when right heell is palpated on lateral/medial sides. No lesions, swelling, or erythema. Concerned for Achilles injury vs. bone spur vs. bone fracture. Plan: Right foot XR, rest, elevation, ice, compression, pain management, PCP follow up Medical Records Attestation: I reviewed the patient's medical records. Lab Data Attestation: I reviewed the patient's lab results. Discharge Plan Discharge Clinical Impression: Heel pain Patient Disposition: Home, Self-Care Instructions: Arthralgia (ED), Heel Spur (ED) Additional Instructions: Your x-ray does not show a fracture or dislocation, you do have a heel spur. Wear Stanislaw wrap for comfort and stability. Take Tylenol Motrin as needed. F ollow-up with podiatry Mitchell radiograf?a no muestra shannen fractura o dislocaci?n, tiene un espol?n en el jackelin?n. Use la venda Stanislaw para mayor comodidad y estabilidad. [place] Tylenol Motrin seg?n sea necesario. Seguimiento con podolog?a Prescriptions: No Action cholecalciferol (vitamin D3) 50 mcg (2,000 unit) capsule 50 mcg PO DAILY Qty: 30 5RF (DME) lancets [FreeStyle Lancets] 28 gauge misc See Rx Instructions .Route Qty: 100 8RF Rx Instructions: As directed Earlene Mead U-300 Insulin 300 unit/mL (1.5 mL) insulin pen 10 unit subcut BEDTIME acetaminophen-codeine 300-30 mg tablet 1 tab PO Q8H PRN (Reason: pain) Qty: 14 0RF lorazepam 0.5 mg tablet 0.5 mg PO DAILY PRN (Reason: Anxiety) (DME) lancets 28 gauge misc See Rx Instructions topical .MEDSUPPLY Qty: 100 6RF Rx Instructions: 3 times a day amlodipine 10 mg tablet 10 mg PO DAILY atorvastatin 20 mg tablet 20 mg PO DAILY Hold Instructions: Resume on 08/30/21. fluticasone propionate 50 mcg/actuation spray,suspension 1 spray intranasal DAILY PRN (Reason: nasal congestion) metoprolol succinate 100 mg tablet extended release 24 hr 25 mg PO DAILY pantoprazole 40 mg tablet,delayed release (DR/EC) 40 mg PO DAILY Qty: 30 2RF fluoxetine 40 mg capsule 40 mg PO QAM sucralfate 100 mg/mL suspension 10 ml PO BID (DME) FreeStyle Lite Strips Strip See Rx Instructions .Route Qty: 100 0RF Rx Instructions: As directed test blood sugar three times a day methimazole 5 mg tablet 5 mg PO DAILY Qty: 30 4RF Referrals: Gustavo Fajardo MD [Physician] - 1 week Print Language: Mauritanian
== END 2021-12-12 15:50 | disposition home or self-care (01) ==
PROVIDERS: Emergency Provider Internal Medicine; PCP Internal Medicine
DX: M79.671 Pain in right foot (principal); M77.31 Calcaneal spur, right foot; E11.9 Type 2 diabetes mellitus without complications; E66.9 Obesity, unspecified; Z68.30 Body mass index [BMI] 30.0-30.9, adult; Z79.4 Long term (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 insulin
CPT/HCPCS: 73630; 99282; 99283

== ENCOUNTER → 2022-01-02 12:40 | Outpatient (BNVA) | payer OTHER, SELFPAY | PROVIDERS: PCP Internal Medicine; Visit Provider Physician Assistant Surgical | DX: E66.9 Obesity, unspecified (principal); Z98.84 Bariatric surgery status; Z68.30 Body mass index [BMI] 30.0-30.9, adult | CPT/HCPCS: 99212 ==

== ENCOUNTER → 2022-02-01 10:46 | Outpatient (BNVA) | payer OTHER, SELFPAY | PROVIDERS: PCP Internal Medicine; Visit Provider Physician Assistant Surgical | DX: E66.9 Obesity, unspecified (principal); Z98.84 Bariatric surgery status; Z68.30 Body mass index [BMI] 30.0-30.9, adult | CPT/HCPCS: 99212 ==

== ENCOUNTER → 2022-03-04 12:35 | Outpatient (BNVA) | payer OTHER, SELFPAY | PROVIDERS: PCP Internal Medicine; Visit Provider Physician Assistant Surgical | DX: E66.3 Overweight (principal); Z98.84 Bariatric surgery status | CPT/HCPCS: 99212 ==

== ENCOUNTER 2022-03-18 09:05 | Outpatient (REF) | payer OTHER, SELFPAY ==
[2022-03-18 09:31] LABS: MANUAL DIFF FLAG NO
[2022-03-18 10:04] LABS: Basophils Absolute Auto 0.1 X10*3/uL (0.0-0.2); Basophils Percent Auto 0.6 % (0-2); Eosinophils Absolute Auto 0.2 X10*3/uL (0.0-0.4); Eosinophils Percent Auto 2.9 % (0-4); Hematocrit 42.8 % (37.0-47.0); Hemoglobin 13.7 g/dl (12.0-16.0); Imm Gran Abs Auto 0.02 X10*3/uL (0.00-0.03); Imm Gran Pct Auto 0.2 % (0.0-0.4); Lymphocytes Absolute Auto 2.1 X10*3/uL (1.2-4.9); Lymphocytes Percent Auto 25.2 % (20-40); Mean Corpuscular Hemoglobin 27.1 pg (27.0-33.0); Mean Corpuscular Volume 84.8 fL (80.0-98.0); Monocytes Absolute Auto 0.8 X10*3/uL (0.1-1.2); Monocytes Percent Auto 9.4 % (2-11); Neutrophils Percent Auto 61.7 % (45-73); Platelet Count 249 X10*3/uL (160-400); Red Blood Count 5.05 X10*6/uL (4.20-5.50); Red Cell Distribution Width 14.2 % (11.0-16.0); White Blood Count 8.2 X10*3/uL (4.8-10.8)
[2022-03-18 10:10] LABS: Estimated Average Glucose 148 mg/dL; Hemoglobin A1c % 6.8 %
[2022-03-18 10:55] LABS: Ferritin 44 ng/mL (10-250); Insulin 6 uU/mL (2-29); TSH reflex Free T4 0.44 uIU/mL (0.32-4.0); Vitamin D 25-OH Total 48.8 ng/mL (>30)
[2022-03-18 11:04] LABS: Alanine Aminotransferase 34 U/L (0-31); Albumin Level 4.4 g/dL (3.5-5.0); Alkaline Phosphatase 118 U/L (39-117); Anion Gap 12 (12-20); Aspartate Amino Transferase 19 U/L (5-31); Bilirubin Total 0.7 mg/dL (0.0-1.0); Blood Urea Nitrogen 22 mg/dL (9-16); C Reactive Protein 0.14 mg/dL (< or = 0.50); Carbon Dioxide 27 mmol/L (22-29); Chloride 109 mmol/L (96-108); Cholesterol 217 mg/dL; Estimated Glomerular Filt Rate 42; Glucose Random 155 mg/dL (60-115); HDL Cholesterol 46 mg/dL; Iron 73 mcg/dL (30-160); LDL Cholesterol Calculated 123 mg/dl; Percent Iron Saturation 21 % (15-50); Potassium 4.1 mmol/L (3.3-5.1); Sodium 144 mmol/L (135-145); Thyroid Stimulating Hormone 0.41 uIU/mL (0.32-4.0); Total Iron Binding Capacity 347 mcg/dL (228-428); Total Protein 7.4 g/dL (6.5-8.0); Triglycerides 243 mg/dL; Unsaturated Iron Binding 274 ug/dL
[2022-03-18 11:13] LABS: Bilirubin Direct 0.2 mg/dL (0.0-0.5)
[2022-03-18 11:14] LABS: Folate > 20.0 ng/mL (> or = 4.0); Vitamin B12 1561 pg/mL (200-900)
[2022-03-19 12:16] LABS: Calcium (PTHI) 9.6 mg/dL (8.6-10.4); PTHI 59 pg/mL (16-77)
[2022-03-21 19:36] LABS: Vitamin A 100 mcg/dL (38-98)
[2022-03-22 13:36] LABS: Vitamin B1 22 nmol/L (8-30)
== END 2022-03-18 09:06 | disposition home or self-care (01) ==
LOC: HO.LAB 09:05
PROVIDERS: Internal Medicine Endocrinology, Diabetes & Metabolism; Visit Provider Physician Assistant Surgical
DX: E04.2 Nontoxic multinodular goiter (principal); Z98.84 Bariatric surgery status
CPT/HCPCS: 36415; 80053; 80061; 80076; 82248; 82306; 82607; 82728; 82746; 83036; 83525; 83540; 83970; 84425; 84443; 84590; 84630; 85025; 86140

== ENCOUNTER → 2022-04-04 07:49 | Outpatient (BNVA) | payer OTHER, SELFPAY | PROVIDERS: PCP Internal Medicine; Visit Provider Internal Medicine Endocrinology, Diabetes & Metabolism | DX: E04.2 Nontoxic multinodular goiter (principal) | CPT/HCPCS: 99212 ==

== ENCOUNTER → 2022-05-08 10:58 | Outpatient (BNVA) | payer OTHER, SELFPAY | PROVIDERS: PCP Internal Medicine; Visit Provider Physician Assistant Surgical | DX: E66.9 Obesity, unspecified (principal); Z68.31 Body mass index [BMI] 31.0-31.9, adult; Z98.84 Bariatric surgery status | CPT/HCPCS: 99212 ==

== ENCOUNTER 2022-08-09 18:54 | Emergency (ER) | payer OTHER, SELFPAY ==
[2022-08-09 19:00] VITALS: BP 139/81; PULSE 73; RESP 16; TEMP 36.4; O2SAT 96; BMI 30.2
[2022-08-09 19:15] LABS: Glucose, Whole Blood 448 mg/dL (60-115)
[2022-08-09 20:00] LABS: Basophils Absolute Auto 0.1 X10*3/uL (0.0-0.2); Basophils Percent Auto 0.5 % (0-2); Eosinophils Absolute Auto 0.2 X10*3/uL (0.0-0.4); Eosinophils Percent Auto 2.2 % (0-4); Hematocrit 40.9 % (37.0-47.0); Hemoglobin 13.5 g/dl (12.0-16.0); Imm Gran Abs Auto 0.04 X10*3/uL (0.00-0.03); Imm Gran Pct Auto 0.4 % (0.0-0.4); Lymphocytes Absolute Auto 2.7 X10*3/uL (1.2-4.9); Lymphocytes Percent Auto 24.7 % (20-40); MANUAL DIFF FLAG NO; Mean Corpuscular Hemoglobin 27.5 pg (27.0-33.0); Mean Corpuscular Volume 83.3 fL (80.0-98.0); Mean Platelet Volume 11.7 fL (9.4-12.3); Monocytes Percent Auto 9.4 % (2-11); Neutrophils Absolute Auto 6.9 x10*3/uL (2.0-8.3); Neutrophils Percent Auto 62.8 % (45-73); Platelet Count 238 X10*3/uL (160-400); Red Blood Count 4.91 X10*6/uL (4.20-5.50); Red Cell Distribution Width 12.5 % (11.0-16.0)
[2022-08-09 20:20] LABS: Alanine Aminotransferase 20 U/L (0-31); Albumin Level 4.5 g/dL (3.5-5.0); Alkaline Phosphatase 148 U/L (39-117); Anion Gap 16 (12-20); Aspartate Amino Transferase 16 U/L (5-31); Bilirubin Direct < 0.2 mg/dL (0.0-0.5); Bilirubin Total 0.5 mg/dL (0.0-1.0); Blood Urea Nitrogen 26 mg/dL (9-16); Calcium 9.4 mg/dL (8.4-10.2); Carbon Dioxide 26 mmol/L (22-29); Chloride 101 mmol/L (96-108); Creatinine Clr Calc Pharmacy 30.5; Estimated Glomerular Filt Rate 29; Glucose Random 453 mg/dL (60-115); Lipase 87 U/L (8-78); Potassium 4.9 mmol/L (3.3-5.1); Sodium 138 mmol/L (135-145); Total Protein 7.3 g/dL (6.5-8.0)
[2022-08-09 20:27] VITALS: BP 119/48; PULSE 63; RESP 18; TEMP 37.1; O2SAT 98
--- NOTE | 2022-08-09 21:14 | ED_ITS ---
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 Otherwise, she denies any fever, chills, shortness of breath, GI or symptoms. Related Data Home Medications Medication Instructions Recorded Confirmed amlodipine 10 mg tablet 10 mg PO DAILY 02/05/20 05/08/22 fluticasone propionate 50 1 spray intranasal DAILY PRN nasal 07/19/20 05/08/22 mcg/actuation nasal congestion spray,suspension metoprolol tartrate 25 mg tablet 25 mg PO BID 05/08/22 05/08/22 Previous Rx's Medication Instructions Recorded inulin 2 gram chewable tablet 2 g PO DAILY #30 tabs 03/04/22 (Fiber Gummies) metformin 1,000 mg tablet 1,000 mg PO BIDWMEAL #60 tabs 08/09/22 metformin 500 mg tablet,extended 500 mg PO DAILY #3 tabs 08/09/22 release 24 hr Allergies Allergy/AdvReac Type Severity Reaction Status Date / Time latex [LATEX] Allergy Mild RASH Verified 08/09/22 19:06 Review of Systems Review of Systems: Pertinent positives and negatives as stated in [facility] Past Medical History Source: nursing notes reviewed Medical History Anxiety B12 deficiency BMI 34.0-34.9,adult BMI 35.0-35.9,adult BMI 36.0-36.9,adult Chronic kidney disease Chronic renal insufficiency COVID-19 vaccine series completed Cyst, kidney, acquired Depression Diabetes type 2, uncontrolled Diabetic neuropathy Diabetic 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 with type 2 diabetes mellitus Distal radius fracture, right Dyslipidemia GERD (gastroesophageal reflux disease) 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 Nephrolithiasis Non-toxic multinodular goiter Obesity (BMI 30-39.9) Pre-op evaluation Tachycardia Toxic multinodul goiter Surgical History H/O colonoscopy History of carpal tunnel release (~2018) History of section History of esophagogastroduodenoscopy (EGD) History of partial hysterectomy History of surgery History of total left knee replacement (~2010) History of total right knee replacement Hx of biopsy Hx of cholecystectomy S/P fine needle aspiration S/P laparoscopic sleeve gastrectomy Family History Family History Father Hypertension Diabetes History of kidney cancer Mother Diabetes Hypertension Heart disease Brother Hypertension Diabetes Brother No problems noted. Son Hypertension Prediabetes Heart disease Daughter Prediabetes Social History Social History Household Members: Spouse Are you a primary rn care manager to a significant other at home: No Do you presently have visiting nurse or other home services: Yes ([facility]) Alcohol intake: never Patient Tobacco Use Status: Never used Tobacco Advance Directives: No Advance Directives Information Provided: No Physical Exam ED Vital Signs: Vital Signs - 24 hr 08/09/22 19:00 08/09/22 20:27 Temperature 97.6 F 98.7 F Pulse Rate 73 63 Respiratory Rate 16 18 Blood Pressure 139/81 119/48 L Pulse Oximetry 96 98 Oxygen Delivery Method Room Air Room Air BMI result Body Mass Index 30.2 VITAL SIGNS: Reviewed. GENERAL: Well developed, well nourished, in no acute distress. HEAD: Normocephalic/atraumatic EYES: PERRLA, EOMI EARS: Ext canals without abnormality NOSE: Nares patent bilateral OROPHARYNX: no oral lesions noted, posterior pharynx clear, dry mucosa NECK: Supple, no adenopathy LUNGS: Normal breath sounds. No adventitious sounds or accessory muscle use. SpO2<98> CARDIOVASCULAR: Regular rate and rhythm without noted murmurs ABDOMEN: Soft, non-tender, non-distended with bowel sounds. MUSCULOSKELETAL: No tenderness, deformities, or effusions noted on gross inspection. EXTREMITIES: No cyanosis, clubbing or edema. SKIN: Inspection of the skin reveals no rashes NEUROLOGIC: Alert and oriented x 4. Strength and sensation to light touch were grossly intact x 4. Medications Administered Discontinued Medications Generic Name Dose Route Start Last Admin Trade Name Freq PRN Reason Stop Dose Admin Sodium Chloride 2,000 mls @ 999 mls/hr 08/09/22 21:15 08/09/22 22:49 Ns IV 08/09/22 23:15 Infused .Q2H1M FATOU Infusion Medical Decision Making Medical Decision Making [facility] Narrative: 2137: 62-year-old female with history and clinical presentation suggestive relapsing diabetes despite bariatric surgery and noted hyperglycemia with dehydration. 2318: Reviewed all investigations my interpretation is that this patient has had redemonstration diabetes with dehydration, she was rehydrated and basic metabolic results show resolution of SETH and blood glucose is significantly improved. Patient understands that she will start metformin 1 pill for 3 days and then initiate 1000 mg twice a day. Patient does have a follow-up appointment this next Friday. She is otherwise discharged home in stable condi tion. Differential Diagnosis Please see the discussion above Lab Data Please see the discussion above 08/09/22 19:54 08/09/22 19:54 Labs: Lab Results 08/09/22 08/09/22 08/09/22 Range/Units 19:09 19:54 19:54 WBC 11.0 H (4.8-10.8) X10*3/uL RBC 4.91 (4.20-5.50) X10*6/uL Hgb 13.5 (12.0-16.0) g/dl Hct 40.9 (37.0-47.0) % MCV 83.3 (80.0-98.0) fL MCH 27.5 (27.0-33.0) pg MCHC 33.0 (31.0-35.0) g/dl RDW 12.5 (11.0-16.0) % Plt Count 238 (160-400) X10*3/uL MPV 11.7 (9.4-12.3) fL Immature Gran % (Auto) 0.4 (0.0-0.4) % Neut % (Auto) 62.8 (45-73) % Lymph % (Auto) 24.7 (20-40) % [place] % (Auto) 9.4 (2-11) % Eos % (Auto) 2.2 (0-4) % Baso % (Auto) 0.5 (0-2) % Lymph # (Auto) 2.7 (1.2-4.9) X10*3/uL [place] # (Auto) 1.0 (0.1-1.2) X10*3/uL Eos # (Auto) 0.2 (0.0-0.4) X10*3/uL Baso # (Auto) 0.1 (0.0-0.2) X10*3/uL Abs Immat Gran (auto) 0.04 H (0.00-0.03) X10*3/uL Absolute Neuts (auto) 6.9 (2.0-8.3) x10*3/uL Absolute Nucleated RBC 0.000 (0.0-0.012) X10*3/uL Nucleated RBC % (auto) 0.0 (0.0-0.2) /100WBC Sodium 138 (135-145) mmol/L Potassium 4.9 (3.3-5.1) mmol/L Chloride 101 (96-108) mmol/L Carbon Dioxide 26 (22-29) mmol/L Anion Gap 16 (12-20) BUN 26 H (9-16) mg/dL Creatinine 1.76 H (0.5-1.4) mg/dL Estim Creat Clear Calc 30.5 Estimated GFR 29 POC Glucose 448 H* (60-115) mg/dL Random Glucose 453 H* (60-115) mg/dL Calcium 9.4 (8.4-10.2) mg/dL Total Bilirubin 0.5 (0.0-1.0) mg/dL Direct Bilirubin < 0.2 (0.0-0.5) mg/dL AST 16 (5-31) U/L ALT 20 (0-31) U/L Alkaline Phosphatase 148 H (39-117) U/L Total Protein 7.3 (6.5-8.0) g/dL Albumin 4.5 (3.5-5.0) g/dL Lipase 87 H (8-78) U/L Urine Color Urine Appearance Urine pH (5.0-9.0) Ur Specific [place] (1.005-1.025) Urine Protein (Neg-Trace) mg/dL Urine Glucose (UA) (Negative) mg/dL Urine Ketones (Negative) mg/dL Urine Blood (Negative) Urine Nitrite (Negative) Ur Leukocyte Esterase (Negative) Urine RBC (0-2) /HPF Urine WBC (0-5) /HPF Ur Squamous Epith Cells (0-2) /HPF Urine Bacteria (None Seen) Hyaline Casts (0-2) /LPF 08/09/22 08/09/22 08/09/22 Range/Units 21:35 22:43 22:45 WBC (4.8-10.8) X10*3/uL RBC (4.20-5.50) X10*6/uL Hgb (12.0-16.0) g/dl Hct (37.0-47.0) % MCV (80.0-98.0) fL MCH (27.0-33.0) pg MCHC (31.0-35.0) g/dl RDW (11.0-16.0) % Plt Count (160-400) X10*3/uL MPV (9.4-12.3) fL Immature Gran % (Auto) (0.0-0.4) % Neut % (Auto) (45-73) % Lymph % (Auto) (20-40) % [place] % (Auto) (2-11) % Eos % (Auto) (0-4) % Baso % (Auto) (0-2) % Lymph # (Auto) (1.2-4.9) X10*3/uL [place] # (Auto) (0.1-1.2) X10*3/uL Eos # (Auto) (0.0-0.4) X10*3/uL Baso # (Auto) (0.0-0.2) X10*3/uL Abs Immat Gran (auto) (0.00-0.03) X10*3/uL Absolute Neuts (auto) (2.0-8.3) x10*3/uL Absolute Nucleated RBC (0.0-0.012) X10*3/uL Nucleated RBC % (auto) (0.0-0.2) /100WBC Sodium 142 (135-145) mmol/L Potassium 4.5 (3.3-5.1) mmol/L Chloride 111 H (96-108) mmol/L Carbon Dioxide 23 (22-29) mmol/L Anion Gap 13 (12-20) BUN 23 H (9-16) mg/dL Creatinine 1.33 (0.5-1.4) mg/dL Estim Creat Clear Calc 40.5 Estimated GFR 41 POC Glucose 241 H (60-115) mg/dL Random Glucose 269 H (60-115) mg/dL Calcium 8.3 L D (8.4-10.2) mg/dL Total Bilirubin (0.0-1.0) mg/dL Direct Bilirubin (0.0-0.5) mg/dL AST (5-31) U/L ALT (0-31) U/L Alkaline Phosphatase (39-117) U/L Total Protein (6.5-8.0) g/dL Albumin (3.5-5.0) g/dL Lipase (8-78) U/L Urine Color Yellow Urine Appearance Clear Urine pH 6.0 (5.0-9.0) Ur Specific [place] >= 1.030 H (1.005-1.025) Urine Protein Negative (Neg-Trace) mg/dL Urine Glucose (UA) >=1000 H (Negative) mg/dL Urine Ketones Negative (Negative) mg/dL Urine Blood Negative (Negative) Urine Nitrite Negative (Negative) Ur Leukocyte Esterase Trace H (Negative) Urine RBC 0-2 (0-2) /HPF Urine WBC 0-5 (0-5) /HPF Ur Squamous Epith Cells 0-2 (0-2) /HPF Urine Bacteria None Seen (None Seen) Hyaline Casts 0-2 (0-2) /LPF External Record Review External record reviewed: Outpatient record and Prior outpatient labs Discharge Plan Discharge Clinical Impression: Diabetes type 2, uncontrolled, Dehydration Patient Disposition: Still a Patient Prescriptions: New metformin 1,000 mg tablet 1,000 mg PO BIDWMEAL Qty: 60 0RF metformin 500 mg tablet extended release 24 hr 500 mg PO DAILY Qty: 3 0RF Rx Instructions: That should be taken daily for 3 days and then initiate the twice daily. No Action amlodipine 10 mg tablet 10 mg PO DAILY fluticasone propionate 50 mcg/actuation spray,suspension 1 spray intranasal DAILY PRN (Reason: nasal congestion) metoprolol tartrate 25 mg tablet 25 mg PO BID Fiber Gummies 2 gram tablet,chewable 2 g PO DAILY Qty: 30 3RF
[2022-08-09] MEDS: 0.9 % Sodium Chloride 2,000 ML 999 ML IV (21:34)
[2022-08-09 21:51] LABS: Appearance Urine Clear; Color Urine Yellow; Glucose Urine UA >=1000 mg/dL (Negative); Leukocyte Esterase Urine Trace (Negative); Nitrite Urine Negative (Negative); Specific Gravity - Urine >= 1.030 (1.005-1.025); UMIC TRIGGER UACC YES; Urine Blood Negative (Negative); Urine Ketones Negative (Negative); Urine Protein Negative (Neg-Trace)
[2022-08-09 22:35] LABS: Bacteria Urine None Seen (None Seen); Hyaline Casts Urine 0-2 /LPF (0-2); RBC Urine 0-2 /HPF (0-2); Squamous Epithelial Cell Urine 0-2 /HPF (0-2); WBC Urine 0-5 /HPF (0-5)
[2022-08-09 22:50] LABS: Glucose, Whole Blood 241 mg/dL (60-115)
[2022-08-09 23:14] LABS: Anion Gap 13 (12-20); Blood Urea Nitrogen 23 mg/dL (9-16); Calcium 8.3 mg/dL (8.4-10.2); Carbon Dioxide 23 mmol/L (22-29); Chloride 111 mmol/L (96-108); Creatinine Clr Calc Pharmacy 40.5; Estimated Glomerular Filt Rate 41; Glucose Random 269 mg/dL (60-115); Potassium 4.5 mmol/L (3.3-5.1); Sodium 142 mmol/L (135-145)
[2022-08-10 03:42] LABS: Estimated Average Glucose 255 mg/dL; Hemoglobin A1c % 10.5 %
== END 2022-08-09 23:31 | disposition home or self-care (01) ==
PROVIDERS: Emergency Provider Student in an Organized Health Care Education/Training Program
DX: E86.0 Dehydration (principal); E11.9 Type 2 diabetes mellitus without complications; R35.0 Frequency of micturition; Z79.4 Long term (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 insulin; Z79.899 Other long term (current) drug therapy; Z98.84 Bariatric surgery status
CPT/HCPCS: 36415; 80048; 80076; 81001; 82947; 83036; 83690; 85025; 96360; 99284

== ENCOUNTER 2022-08-20 09:30 | Emergency (ER) | payer OTHER, SELFPAY ==
[2022-08-20 09:46] LABS: Glucose, Whole Blood 316 mg/dL (60-115)
[2022-08-20 09:49] VITALS: BP 139/79; PULSE 71; RESP 18; TEMP 37.2; O2SAT 96; BMI 30.2
--- NOTE | 2022-08-20 10:20 | ED_ITS ---
HPI - General Adult General Chief complaint: General Medical Stated complaint: High Blood Sugar Time Seen by Provider: 08/20/22 09:59 Source: patient and old records reviewed Mode of arrival: ambulatory Limitations: no limitations History of Present Illness HPI narrative: 62-year-old female with a past medical history of type 2 diabetes, laparoscopic sleeve gastrectomy 08/2021, intra-abdominal adhesion, anxiety, depression, GERD, and hypertension presents to the ED c/o consistently elevated blood sugars at home (up to 500s), polyuria, and polydipsia x2 months. Reports her Trulicity, Toujeo, and Synjardy were stopped about 8 months ago s/p gastrectomy. Admits has been monitoring glucose closely and has been uncontrolled for 2 months, unable to get into PCP until September. Admits she took 1 dose of leftover Synjardy this morning since her sugar was up to 300s. Denies headache, nausea, vomiting, chest pain, shortness of breath, abdominal pain, back pain, fever, chills. Onset (ago): day(s) Related Data Home Medications Medication Instructions Recorded Confirmed amlodipine 10 mg tablet 10 mg PO DAILY 02/05/20 05/08/22 fluticasone propionate 50 1 spray intranasal DAILY PRN nasal 07/19/20 05/08/22 mcg/actuation nasal congestion spray,suspension metoprolol tartrate 25 mg tablet 25 mg PO BID 05/08/22 05/08/22 Previous Rx's Medication Instructions Recorded inulin 2 gram chewable tablet 2 g PO DAILY #30 tabs 03/04/22 (Fiber Gummies) metformin 1,000 mg tablet 1,000 mg PO BIDWMEAL #60 tabs 08/09/22 metformin 500 mg tablet,extended 500 mg PO DAILY #3 tabs 08/09/22 release 24 hr blood sugar diagnostic #50 ea 08/20/22 blood-glucose meter #1 ea 08/20/22 dulaglutide 1.5 mg/0.5 mL 1.5 mg (0.5 mL) subcut QWEEK #2 mL 08/20/22 subcutaneous pen injector (Trulicity) insulin glargine 100 unit/mL 10 unit (0.1 mL) subcut QAM #10 mL 08/20/22 subcutaneous solution lancets #100 ea 08/20/22 Allergies Allergy/AdvReac Type Severity Reaction Status Date / Time latex [LATEX] Allergy Mild RASH Verified 08/09/22 19:06 metformin AdvReac Unknown Verified 08/20/22 10:02 Review of Systems Review of Systems: Constitutional: No Fever, No Chills, No Fatigue, No Malaise ENT/Mouth: No Nasal Congestion, No Rhinorrhea, No Swallowing Difficulty Eyes: No Eye Pain, No Swelling, No Redness, No Discharge Cardiovascular: No Chest Pain, No SOB, No Edema, No Palpitations Respiratory: No Cough, No Sputum, No Dyspnea Gastrointestinal: No Nausea, No Vomiting, No Diarrhea, No Constipation, No Abdominal pain Genitourinary: No Dysuria, + Urinary Frequency, No Hematuria, No Urinary Incontinence/retention Musculoskeletal: No joint pain, No Myalgias, No Joint Swelling Skin: No Skin Lesions, No rash Neuro: No Weakness, No Numbness, No Paresthesias, No Loss of Consciousness, No Dizziness, No Headache Endocrine: + Polyuria, + Polydipsia, No Temperature Intolerance Yes all other systems are reviewed and are negative Constitutional: Constitutional: Reports as per [facility] Past Medical History Attestation statement: The following information was validated with the patient. 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 Nephrolithiasis Non-toxic multinodular goiter Obesity (BMI 30-39.9) Pre-op evaluation Tachycardia Toxic multinodul goiter Surgical History H/O colonoscopy History of carpal tunnel release (~2017) History of section History of esophagogastroduodenoscopy (EGD) History of partial hysterectomy History of surgery History of total left knee replacement (~2010) History of total right knee replacement Hx of biopsy Hx of cholecystectomy S/P fine needle aspiration S/P laparoscopic sleeve gastrectomy Family History Family History Father Hypertension Diabetes History of kidney cancer Mother Diabetes Hypertension Heart disease Brother Hypertension Diabetes Brother No problems noted. Son Hypertension Prediabetes Heart disease Daughter Prediabetes Social History Social History Household Members: Spouse Are you a primary child care provider to a significant other at home: No Do you presently have visiting nurse or other home services: Yes ([facility]) Alcohol intake: never Patient Tobacco Use Status: Never used Tobacco Smoked in Last 30 Days: No Use of substances other than those prescribed or required for medical reasons: No Advance Directives: No Advance Directives Information Provided: Yes Physical Exam ED Vital Signs: Vital Signs - 24 hr 08/20/22 09:49 08/20/22 11:02 Temperature 99 F 97.5 F Pulse Rate 71 60 Respiratory Rate 18 18 Blood Pressure 139/79 141/64 H Pulse Oximetry 96 98 Oxygen Delivery Method Room Air Room Air BMI result Body Mass Index 30.2 Const General: cooperative, healthy appearing and no acute distress Nutritional Appearance: well nourished Orientation/consciousness: patient oriented x3 Limitations: no limitations HENMT Head: Yes normal to inspection and Yes atraumatic Ears: hearing grossly normal bilaterally General nose exam: Normal external nose present Face and sinus: Yes normal facial exam Mouth: Normal oral and palatal mucosa present Throat: Yes posterior oropharynx normal, Yes tonsils normal and No peritonsillar mass Eyes General: appearance normal, both eyes and all related structures EOM: EOMs intact bilaterally Neck Neck: Yes normal visual inspection, Yes full ROM and Yes no meningeal signs Resp Effort & Inspection: normal respiratory effort, able to speak in complete sentences and no respiratory distress Auscultation: clear to auscultation bilaterally Cardio Rate: regular rate Rhythm: regular rhythm Heart sounds: S1 normal heart sound present and S2 normal heart sound present GI Inspection: Yes normal to inspection Palpation (GI): Soft to palpation, nontender, no guarding and not rigid Skin Rashes: no rashes Wounds: no wounds Neuro General: patient oriented x3, tone normal, no meningeal signs, no focal motor deficits and CN's II-XI intact bilaterally Cranial nerves: Yes CN's II-XII intact bilaterally and Yes Bilaterally intact EOM present Cognition (Neuro): normal cognition Gait exam (Neuro): Normal gait present Motor exam (neuro): 5/5 motor strength present throughout Extrem General: Yes normal to inspection and Yes full ROM Course Course Course Narrative: -1249--no leukocytosis. Initial POC 316. Patient with mild CKD, chronic. No anion gap. Acetone negative. > repeat POC 171 -spoke with Endocrine, Dr. Merritt recommended re-initiating patient on her previous Toujeo 10U and Trulicity dose > patient is in agreement with plan, will try to get close follow-up Results discussed with patient including worrisome signs and symptoms and strict return precautions, and when to return to the emergency department. They verbalized understanding and feel safe for discharge at this time. Medical Decision Making Medical Decision Making [facility] Narrative: 62-year-old female with a past medical history of type 2 diabetes, laparoscopic sleeve gastrectomy 08/2021, intra-abdominal adhesion, anxiety, depression, GERD, and hypertension presents to the ED c/o consistently elevated blood sugars at home (up to 500s), polyuria, and polydipsia x2 months. On exam stable vital signs, NAD, nontoxic appearing, abdomen soft/nontender. Concern for hyperglycemia. R/o DKA, HHS, diabetes insipidus, or SIADH. 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 Differential Diagnosis Differential Diagnoses: The differential diagnosis associated with the presentation includes As above Admission/Observation Consideration of admission/observation: Escalation of care including admission/observation considered Lab Data [facility] Lab Attestation statement: I reviewed the patient's lab results. 08/20/22 10:58 08/20/22 10:58 Labs: Lab Results 08/20/22 08/20/22 08/20/22 Range/Units 09:43 10:58 10:58 WBC 9.8 (4.8-10.8) X10*3/uL RBC 5.04 (4.20-5.50) X10*6/uL Hgb 13.8 (12.0-16.0) g/dl Hct 42.6 (37.0-47.0) % MCV 84.5 (80.0-98.0) fL MCH 27.4 (27.0-33.0) pg MCHC 32.4 (31.0-35.0) g/dl RDW 12.8 (11.0-16.0) % Plt Count 248 (160-400) X10*3/uL MPV 11.7 (9.4-12.3) fL Immature Gran % (Auto) 0.4 (0.0-0.4) % Neut % (Auto) 62.4 (45-73) % Lymph % (Auto) 24.5 (20-40) % [place] % (Auto) 9.9 (2-11) % Eos % (Auto) 2.2 (0-4) % Baso % (Auto) 0.6 (0-2) % Lymph # (Auto) 2.4 (1.2-4.9) X10*3/uL [place] # (Auto) 1.0 (0.1-1.2) X10*3/uL Eos # (Auto) 0.2 (0.0-0.4) X10*3/uL Baso # (Auto) 0.1 (0.0-0.2) X10*3/uL Abs Immat Gran (auto) 0.04 H (0.00-0.03) X10*3/uL Absolute Neuts (auto) 6.1 (2.0-8.3) x10*3/uL Absolute Nucleated RBC 0.000 (0.0-0.012) X10*3/uL Nucleated RBC % (auto) 0.0 (0.0-0.2) /100WBC Sodium 140 (135-145) mmol/L Potassium 4.7 (3.3-5.1) mmol/L Chloride 105 (96-108) mmol/L Carbon Dioxide 25 (22-29) mmol/L Anion Gap 15 (12-20) BUN 18 H (9-16) mg/dL Creatinine 1.41 H (0.5-1.4) mg/dL Estim Creat Clear Calc 38.2 Estimated GFR 38 POC Glucose 316 H (60-115) mg/dL Random Glucose 230 H (60-115) mg/dL Estimat Average Glucose mg/dL Hemoglobin A1c % % Calcium 9.6 D (8.4-10.2) mg/dL Magnesium 1.9 (1.6-2.6) mg/dL Total Bilirubin 0.5 (0.0-1.0) mg/dL Direct Bilirubin 0.1 (0.0-0.5) mg/dL AST 10 (5-31) U/L ALT 12 (0-31) U/L Alkaline Phosphatase 128 H (39-117) U/L Total Protein 7.2 (6.5-8.0) g/dL Albumin 4.5 (3.5-5.0) g/dL Urine Color Urine Appearance Urine pH (5.0-9.0) Ur Specific [place] (1.005-1.025) Urine Protein (Neg-Trace) mg/dL Urine Glucose (UA) (Negative) mg/dL Urine Ketones (Negative) mg/dL Urine Blood (Negative) Urine Nitrite (Negative) Ur Leukocyte Esterase (Negative) Urine RBC (0-2) /HPF Urine WBC (0-5) /HPF Ur Squamous Epith Cells (0-2) /HPF Urine Bacteria (None Seen) Hyaline Casts (0-2) /LPF Acetone, Qual Negative (Negative) 08/20/22 08/20/22 08/20/22 Range/Units 10:58 11:52 12:29 WBC (4.8-10.8) X10*3/uL RBC (4.20-5.50) X10*6/uL Hgb (12.0-16.0) g/dl Hct (37.0-47.0) % MCV (80.0-98.0) fL MCH (27.0-33.0) pg MCHC (31.0-35.0) g/dl RDW (11.0-16.0) % Plt Count (160-400) X10*3/uL MPV (9.4-12.3) fL Immature Gran % (Auto) (0.0-0.4) % Neut % (Auto) (45-73) % Lymph % (Auto) (20-40) % [place] % (Auto) (2-11) % Eos % (Auto) (0-4) % Baso % (Auto) (0-2) % Lymph # (Auto) (1.2-4.9) X10*3/uL [place] # (Auto) (0.1-1.2) X10*3/uL Eos # (Auto) (0.0-0.4) X10*3/uL Baso # (Auto) (0.0-0.2) X10*3/uL Abs Immat Gran (auto) (0.00-0.03) X10*3/uL Absolute Neuts (auto) (2.0-8.3) x10*3/uL Absolute Nucleated RBC (0.0-0.012) X10*3/uL Nucleated RBC % (auto) (0.0-0.2) /100WBC Sodium (135-145) mmol/L Potassium (3.3-5.1) mmol/L Chloride (96-108) mmol/L Carbon Dioxide (22-29) mmol/L Anion Gap (12-20) BUN (9-16) mg/dL Creatinine (0.5-1.4) mg/dL Estim Creat Clear Calc Estimated GFR POC Glucose 171 H (60-115) mg/dL Random Glucose (60-115) mg/dL Estimat Average Glucose 272 mg/dL Hemoglobin A1c % 11.1 % Calcium (8.4-10.2) mg/dL Magnesium (1.6-2.6) mg/dL Total Bilirubin (0.0-1.0) mg/dL Direct Bilirubin (0.0-0.5) mg/dL AST (5-31) U/L ALT (0-31) U/L Alkaline Phosphatase (39-117) U/L Total Protein (6.5-8.0) g/dL Albumin (3.5-5.0) g/dL Urine Color Yellow Urine Appearance Clear Urine pH 5.5 (5.0-9.0) Ur Specific [place] >= 1.030 H (1.005-1.025) Urine Protein Negative (Neg-Trace) mg/dL Urine Glucose (UA) >=1000 H (Negative) mg/dL Urine Ketones Negative (Negative) mg/dL Urine Blood Negative (Negative) Urine Nitrite Negative (Negative) Ur Leukocyte Esterase Negative (Negative) Urine RBC 0-2 (0-2) /HPF Urine WBC 0-5 (0-5) /HPF Ur Squamous Epith Cells 0-2 (0-2) /HPF Urine Bacteria None Seen (None Seen) Hyaline Casts 0-2 (0-2) /LPF Acetone, Qual (Negative) Radiology Impression Discussion of test interpretation with radiology: I have reviewed the radiologist's reading. External Record Review External record reviewed: Inpatient record, Office record, Outpatient record, Prior outpatient labs, Prior outpatient radiology, Primary care record and Outside ED record Discharge Plan Discharge Clinical Impression: Hyperglycemia Patient Disposition: Home, Self-Care Instructions: Diabetic Hyperglycemia (ED) Additional Instructions: Your blood work was reassuring. Continue to monitor your sugars at home. Restart your Toujeo 10 units daily and Trulicity 1.5 units weekly You need to have close follow-up with endocrinology/her PCP If her blood sugar is consistently running high, or is running low return to the ED immediately Mitchell an?lisis de margoth fue tranquilizador. Contin?e controlando oma niveles de az?car en casa. Reinicie mitchell Toujeo 10 unidades al d?a y Trulicity 1,5 unidades a la semana Debe tener un seguimiento cercano con endocrinolog?a/mitchell PCP Si mitchell nivel de az?car en la margoth es constantemente alto o bajo, regrese al servicio de urgencias de inmediato Prescriptions: New (DME) blood-glucose meter Kit See Rx Instructions .Route Qty: 1 0RF Rx Instructions: As directed (DME) lancets Misc See Rx Instructions .Route Qty: 100 0RF Rx Instructions: As directed (DME) blood sugar diagnostic Strip See Rx Instructions .Route Qty: 50 0RF Rx Instructions: As directed insulin glargine 100 unit/mL solution 10 unit subcut QAM Qty: 10 2RF Trulicity 1.5 mg/0.5 mL pen injector 1.5 mg subcut QWEEK Qty: 2 0RF No Action metformin 1,000 mg tablet 1,000 mg PO BIDWMEAL Qty: 60 0RF metformin 500 mg tablet extended release 24 hr 500 mg PO DAILY Qty: 3 0RF Rx Instructions: That should be taken daily for 3 days and then initiate the twice daily. amlodipine 10 mg tablet 10 mg PO DAILY fluticasone propionate 50 mcg/actuation spray,suspension 1 spray intranasal DAILY PRN (Reason: nasal congestion) metoprolol tartrate 25 mg tablet 25 mg PO BID Fiber Gummies 2 gram tablet,chewable 2 g PO DAILY Qty: 30 3RF Referrals: Jose Enrique Merritt MD [Physician] - Interventions: ED Discharge Assessment Last Done: 08/20/22 13:24 Discharge Date/Time: 08/20/22 13:24 Print Language: Korean
[2022-08-20 11:02] VITALS: BP 141/64; PULSE 60; RESP 18; TEMP 36.4; O2SAT 98
--- NOTE | 2022-08-20 11:06 | PC.NURSE ---
pt aox3, coming in due to high BG. POc 316. vitals stable. labs drawn, will cont to mario alberto. awaiting urine sample
[2022-08-20 11:07] LABS: MANUAL DIFF FLAG NO
[2022-08-20 11:09] LABS: Basophils Absolute Auto 0.1 X10*3/uL (0.0-0.2); Basophils Percent Auto 0.6 % (0-2); Eosinophils Absolute Auto 0.2 X10*3/uL (0.0-0.4); Eosinophils Percent Auto 2.2 % (0-4); Hematocrit 42.6 % (37.0-47.0); Hemoglobin 13.8 g/dl (12.0-16.0); Imm Gran Abs Auto 0.04 X10*3/uL (0.00-0.03); Imm Gran Pct Auto 0.4 % (0.0-0.4); Lymphocytes Absolute Auto 2.4 X10*3/uL (1.2-4.9); Lymphocytes Percent Auto 24.5 % (20-40); Mean Corpuscular HGB Conc 32.4 g/dl (31.0-35.0); Mean Corpuscular Hemoglobin 27.4 pg (27.0-33.0); Mean Corpuscular Volume 84.5 fL (80.0-98.0); Mean Platelet Volume 11.7 fL (9.4-12.3); Monocytes Percent Auto 9.9 % (2-11); Neutrophils Absolute Auto 6.1 x10*3/uL (2.0-8.3); Neutrophils Percent Auto 62.4 % (45-73); Platelet Count 248 X10*3/uL (160-400); Red Blood Count 5.04 X10*6/uL (4.20-5.50); Red Cell Distribution Width 12.8 % (11.0-16.0); White Blood Count 9.8 X10*3/uL (4.8-10.8)
[2022-08-20 11:23] LABS: Alanine Aminotransferase 12 U/L (0-31); Albumin Level 4.5 g/dL (3.5-5.0); Alkaline Phosphatase 128 U/L (39-117); Anion Gap 15 (12-20); Aspartate Amino Transferase 10 U/L (5-31); Bilirubin Direct 0.1 mg/dL (0.0-0.5); Bilirubin Total 0.5 mg/dL (0.0-1.0); Blood Urea Nitrogen 18 mg/dL (9-16); Calcium 9.6 mg/dL (8.4-10.2); Carbon Dioxide 25 mmol/L (22-29); Chloride 105 mmol/L (96-108); Creatinine Clr Calc Pharmacy 38.2; Estimated Glomerular Filt Rate 38; Glucose Random 230 mg/dL (60-115); Magnesium 1.9 mg/dL (1.6-2.6); Potassium 4.7 mmol/L (3.3-5.1); Sodium 140 mmol/L (135-145); Total Protein 7.2 g/dL (6.5-8.0)
[2022-08-20 11:43] LABS: Acetone, serum QL Negative (Negative)
[2022-08-20 12:19] LABS: Appearance Urine Clear; Color Urine Yellow; Glucose Urine UA >=1000 mg/dL (Negative); Leukocyte Esterase Urine Negative (Negative); Nitrite Urine Negative (Negative); PH 5.5 (5.0-9.0); Specific Gravity - Urine >= 1.030 (1.005-1.025); UMIC TRIGGER UACC YES; Urine Blood Negative (Negative); Urine Ketones Negative (Negative); Urine Protein Negative (Neg-Trace)
[2022-08-20 12:25] LABS: Bacteria Urine None Seen (None Seen); Hyaline Casts Urine 0-2 /LPF (0-2); RBC Urine 0-2 /HPF (0-2); Squamous Epithelial Cell Urine 0-2 /HPF (0-2); WBC Urine 0-5 /HPF (0-5)
--- NOTE | 2022-08-20 12:35 | PC.NURSE ---
PT poc 171. NO APPARENT DISTRESS, PLAYING WITH GRANDCHILD. WILL CONT TO LYNDSAY
[2022-08-20 12:36] LABS: Glucose, Whole Blood 171 mg/dL (60-115)
[2022-08-20 13:26] LABS: Estimated Average Glucose 272 mg/dL; Hemoglobin A1c % 11.1 %
== END 2022-08-20 13:24 | disposition home or self-care (01) ==
PROVIDERS: Physician Assistant; Emergency Provider Emergency Medicine; PCP Internal Medicine
DX: E11.65 Type 2 diabetes mellitus with hyperglycemia (principal); Z98.84 Bariatric surgery status; Z79.899 Other long term (current) drug therapy; Z79.84 Long term (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 oral hypoglycemic drugs; Z79.85 Long-term (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 injectable non-insulin antidiabetic drugs
CPT/HCPCS: 36415; 80048; 80076; 81001; 82009; 82947; 83036; 83735; 85025; 99283; 99284

== ENCOUNTER → 2022-08-23 10:25 | Outpatient (BNVA) | payer OTHER, SELFPAY | PROVIDERS: PCP Internal Medicine; Visit Provider Physician Assistant Surgical | DX: E66.3 Overweight (principal); E11.9 Type 2 diabetes mellitus without complications; Z98.84 Bariatric surgery status; Z68.31 Body mass index [BMI] 31.0-31.9, adult | CPT/HCPCS: 99212 ==

== ENCOUNTER → 2022-08-29 10:25 | Outpatient (BNVA) | payer OTHER, SELFPAY | PROVIDERS: PCP Internal Medicine; Visit Provider Internal Medicine Endocrinology, Diabetes & Metabolism | DX: E11.65 Type 2 diabetes mellitus with hyperglycemia (principal); E04.2 Nontoxic multinodular goiter | CPT/HCPCS: 82947; 99212 ==

== ENCOUNTER 2022-12-03 09:17 | Outpatient (AMB) | payer OTHER, SELFPAY ==
--- NOTE | 2022-12-03 09:32 | MHC.OFFVISWM ---
Intake VS Expanded 12/03/22 09:38 Height 5 ft 1 in Weight 172 lb BMI 32.5 BP 155/72 H Blood Pressure Location Rt brachial Blood Pressure Position Sitting Pulse 78 Pulse Source Pulse Oximeter Temp 98.1 F Temperature Source Temporal Artery Scan Pulse Oximetry 98 Oxygen Delivery Method Room Air Body Fat 59.0 Body Fat Percentage 34.4 Free Fat Mass 112.8 Muscle Mass 107.2 Visceral Mass 10.0 Water Mass 79.8 BMR 1,579 Intake Visit Reasons: (OV) PO LSG 08/22/21 Allergies latex [LATEX] Allergy (Mild, Verified 12/03/22 09:35) RASH metformin Adverse Reaction (Verified 12/03/22 09:35) Unknown HPI HPI Comments History of Present Illness Details This?is a?62?yo female who is s/p LSG 08/22/2021. Presents for 1 year 3 month post op visit. Weight at last visit on was 168.8 pounds with a BMI of 31.8, weight today is 172 pounds, representing a 3.2 pound weight gain with a BMI today of 32.5.? No complaints of nausea, emesis, abdominal pain or reflux. Taking colace for constipation but not helping. Reports better blood sugar control recently. Present meal plan includes: cup of coffee, 1.5oz. No shake in AM, sometimes some fruit. boiled potato for lunch small portion of boiled chicken thigh for dinner, plus salad sometimes snacks on half a special K bar (6g protein total in bar) not taking MVI but recently bought them All meals last 20 - 30 minutes and does not drink and eat at the same time. Exercise routine includes: walking on treadmill, upper body strength training 3 days a week for 60-90 minutes Was prescribed clotrimazole ointment at last visit for issues of excess skin of abdomen. Found some improvement from this. [facility] Medical History Anxiety B12 deficiency BMI 34.0-34.9,adult BMI 35.0-35.9,adult BMI 36.0-36.9,adult Chronic kidney disease Chronic renal insufficiency COVID-19 vaccine series completed Cyst, kidney, acquired Depression Diabetes type 2, uncontrolled Diabetic neuropathy Diabetic 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 with type 2 diabetes mellitus Distal radius fracture, right Dyslipidemia GERD (gastroesophageal reflux disease) HTN (hypertension) FPC (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 insulin Nephrolithiasis Non-toxic multinodular goiter Obesity (BMI 30-39.9) Pre-op evaluation Tachycardia Toxic multinodul goiter Surgical History H/O colonoscopy History of carpal tunnel release (~2017) History of section History of esophagogastroduodenoscopy (EGD) History of partial hysterectomy History of surgery History of total left knee replacement (~2010) History of total right knee replacement Hx of biopsy Hx of cholecystectomy S/P fine needle aspiration S/P laparoscopic sleeve gastrectomy Family History Father Hypertension Diabetes History of kidney cancer Mother Diabetes Hypertension Heart disease Brother Hypertension Diabetes Brother No problems noted. Son Hypertension Prediabetes Heart disease Daughter Prediabetes Social History Household Members: Spouse Are you a primary career placement specialist to a significant other at home: No Do you presently have visiting nurse or other home services: Yes ([facility]NA) Alcohol intake: never Patient Tobacco Use Status: Never used Tobacco Physical Exam Vital Signs: Last Vital Signs Temp 98.1 F 12/03/22 09:38 Pulse 78 12/03/22 09:38 BP 155/72 H 12/03/22 09:38 Pulse Ox 98 12/03/22 09:38 Oxygen Delivery Method Room Air 12/03/22 09:38 BMI result Body Mass Index 32.5 Assessment & Plan Assessment & Plan (1) S/P laparoscopic sleeve gastrectomy: Comment: 08/22/21 Code(s): Z98.84 - Bariatric surgery status (2) Obese: Code(s): E66.9 - Obesity, unspecified Plan Discussed that pt is not getting enough protein to support weight loss. She does not feel hungry; we explained that this is due to her surgery and she still needs to consume protein/calories even if she doesn't feel hungry. New meal plan idea: 2 protein coates (Isopure or Premier) 1 Celebrate protein bar 1 small meal of 1-2 oz protein, plus veg Pt will restart MVI. Renewed fiber and sent rx for senna. Continue clotrimazole for issues of excess skin of abdomen. RTC 3 months for 18 month visit. Meal plan texted to pt and encouraged her to reach out between appointments with any questions. Patient is obese and is not considered stable at this time. I spent a total of 30 minutes reviewing/updating records, examining the patient and counseling the patient on weight management as detailed above. Medications: New sennosides (senna) 8.6 mg PO DAILY 90 tabs 1RF Refilled inulin (Fiber Gummies) 2 grams PO DAILY 30 tabs 3RF Coding Level of Care Code Est Pt Level 4 (29124) Diagnoses S/P laparoscopic sleeve gastrectomy Z98.84 Obese E66.9
[2022-12-03 09:38] VITALS: BP 155/72; PULSE 78; TEMP 36.7; O2SAT 98; BMI 32.5
== END 2022-12-03 10:29 | disposition home or self-care (01) ==
PROVIDERS: PCP Internal Medicine; Visit Provider Physician Assistant Surgical
DX: E66.9 Obesity, unspecified (principal); Z68.32 Body mass index [BMI] 32.0-32.9, adult; Z90.3 Acquired absence of stomach [part of]; Z98.84 Bariatric surgery status
CPT/HCPCS: 99214

== ENCOUNTER → 2022-12-03 09:17 | Outpatient (BNVA) | payer OTHER, SELFPAY | PROVIDERS: PCP Internal Medicine; Visit Provider Physician Assistant Surgical | DX: E66.9 Obesity, unspecified (principal); Z98.84 Bariatric surgery status; Z68.32 Body mass index [BMI] 32.0-32.9, adult | CPT/HCPCS: 99212 ==

== ENCOUNTER 2022-12-23 11:56 | Emergency (ER) | payer OTHER, SELFPAY ==
[2022-12-23 12:27] VITALS: BP 158/86; PULSE 79; RESP 18; TEMP 36.4; O2SAT 97; BMI 30.2
--- NOTE | 2022-12-23 12:29 | ED.ALLEREA ---
HPI - Allergic Reaction General Chief complaint: Allergic Reaction Stated complaint: Rash on chest Related Data Home Medications Medication Instructions Recorded Confirmed amlodipine 10 mg tablet 10 mg PO DAILY 02/05/20 08/23/22 fluticasone propionate 50 1 spray intranasal DAILY PRN nasal 07/19/20 08/23/22 mcg/actuation nasal congestion spray,suspension metoprolol tartrate 25 mg tablet 25 mg PO BID 05/08/22 08/23/22 blood sugar diagnostic 08/29/22 blood-glucose meter (OneTouch #1 ea 08/29/22 Ultra2 Meter) fluoxetine 40 mg capsule 40 mg PO DAILY 08/29/22 lorazepam 0.5 mg tablet 0 mg PO 08/29/22 trazodone 50 mg tablet 50 - 150 mg PO BEDTIME PRN 08/29/22 Previous Rx's Medication Instructions Recorded lancets #100 ea 08/20/22 clotrimazole 1 % topical cream 1 appl topical BID #45 grams 08/23/22 insulin glargine 100 unit/mL (3 15 unit (0.15 mL) subcut QAM #15 mL 08/29/22 mL) subcutaneous pen (Lantus Solostar U-100 Insulin) pen needle, diabetic 32 gauge x #30 ea 08/30/22 5/16 (Comfort EZ Pen [place]) dulaglutide 1.5 mg/0.5 mL 1.5 mg (0.5 mL) subcut QWEEK #2 mL 09/13/22 subcutaneous pen injector (blogfoster) blood sugar diagnostic (OneTouch #100 ea 09/16/22 Ultra Test strips) flash glucose scanning reader #1 ea 09/24/22 (FreeStyle Jame 2 [place]) flash glucose sensor (FreeStyle #2 ea 09/24/22 Jame 2 Sensor kit) inulin 2 gram chewable tablet 2 g PO DAILY #30 tabs 12/03/22 (Fiber Gummies) sennosides 8.6 mg tablet (senna) 8.6 mg PO DAILY #90 tabs 12/03/22 Allergies Allergy/AdvReac Type Severity Reaction Status Date / Time latex [LATEX] Allergy Mild RASH Verified 12/03/22 09:35 metformin AdvReac Unknown Verified 12/03/22 09:35 [facility] Past Medical History Medical History Anxiety B12 deficiency BMI 34.0-34.9,adult BMI 35.0-35.9,adult BMI 36.0-36.9,adult Chronic kidney disease Chronic renal insufficiency COVID-19 vaccine series completed Cyst, kidney, acquired Depression Diabetes type 2, uncontrolled Diabetic neuropathy Diabetic 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 with type 2 diabetes mellitus Distal radius fracture, right Dyslipidemia GERD (gastroesophageal reflux disease) HTN (hypertension) 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 Nephrolithiasis Non-toxic multinodular goiter Obesity (BMI 30-39.9) Pre-op evaluation Tachycardia Toxic multinodul goiter Surgical History H/O colonoscopy History of carpal tunnel release (~2017) History of section History of esophagogastroduodenoscopy (EGD) History of partial hysterectomy History of surgery History of total left knee replacement (~2010) History of total right knee replacement Hx of biopsy Hx of cholecystectomy S/P fine needle aspiration S/P laparoscopic sleeve gastrectomy Family History Family History Father Hypertension Diabetes History of kidney cancer Mother Diabetes Hypertension Heart disease Brother Hypertension Diabetes Brother No problems noted. Son Hypertension Prediabetes Heart disease Daughter Prediabetes Social History Social History Household Members: Spouse Are you a primary dialysis patient care technician to a significant other at home: No Do you presently have visiting nurse or other home services: Yes (VNA) Alcohol intake: never Patient Tobacco Use Status: Never used Tobacco Advance Directives: No Physical Exam ED Vital Signs: Vital Signs - 24 hr 12/23/22 12:27 Temperature 97.6 F Pulse Rate 79 Respiratory Rate 18 Blood Pressure 158/86 H Pulse Oximetry 97 Oxygen Delivery Method Room Air BMI result Body Mass Index 30.2 Course Course Course Narrative: This is an RME: Additional HPI, ROS, PE not included below will be deferred to primary provider. This is a 62-year-old female presenting to the emergency department for evaluation of itchy rash on chest. Patient recently had a bariatric surgery and started drinking new protein drinks on . She has had a diffuse rash her body. No difficulty breathing or swallowing. Vital signs remained stable. Unable to visualize rash due to being triage. Pt in no respiratory distress. Oral pharynx widely patent. No wheezing. Plan: Further ER evaluation. Reevaluation(s) Reevaluation #1: pt eloped prior to being evaluated by primary provider Discharge Plan Discharge Clinical Impression: Rash Patient Disposition: Elopement Prescriptions: No Action (DME) pen needle, diabetic [Comfort EZ Pen [place]] 32 gauge x 5/16 needle See Rx Instructions .Route Qty: 30 5RF Rx Instructions: As directed injects once a day Trulicity 1.5 mg/0.5 mL pen injector 1.5 mg subcut QWEEK Qty: 2 5RF (DME) OneTouch Ultra Test Strip See Rx Instructions .Route Qty: 100 4RF Rx Instructions: As directed 3 times a day (DME) FreeStyle Jame 2 Sensor Kit See Rx Instructions .Route Qty: 2 4RF Rx Instructions: As directed change every 10 days (DME) FreeStyle Jame 2 [place] Misc See Rx Instructions .Route Qty: 1 0RF Rx Instructions: As directed (DME) lancets Misc See Rx Instructions .Route Qty: 100 0RF Rx Instructions: As directed amlodipine 10 mg tablet 10 mg PO DAILY fluticasone propionate 50 mcg/actuation spray,suspension 1 spray intranasal DAILY PRN (Reason: nasal congestion) metoprolol tartrate 25 mg tablet 25 mg PO BID clotrimazole 1 % cream 1 appl topical BID Qty: 45 3RF sennosides [senna] 8.6 mg tablet 8.6 mg PO DAILY Qty: 90 1RF Fiber Gummies 2 gram tablet,chewable 2 g PO DAILY Qty: 30 3RF (DME) blood-glucose meter [OneTouch Ultra2 Meter] Misc See Rx Instructions .ROUTE DIRECTED Qty: 1 Rx Instructions: As directed (DME) blood sugar diagnostic Strip See Rx Instructions .Route Rx Instructions: As directed trazodone 50 mg tablet 50 - 150 mg PO BEDTIME PRN lorazepam 0.5 mg tablet 0 mg PO fluoxetine 40 mg capsule 40 mg PO DAILY insulin glargine [Lantus Solostar U-100 Insulin] 100 unit/mL (3 mL) insulin pen 15 unit subcut QAM Qty: 15 5RF Discharge Date/Time: 12/23/22 14:37
== END 2022-12-23 14:37 | disposition left against medical advice (07) ==
PROVIDERS: Emergency Provider Emergency Medicine; PCP Internal Medicine
DX: R21 Rash and other nonspecific skin eruption (principal); Z79.899 Other long term (current) drug therapy
CPT/HCPCS: 99281; 99283

== ENCOUNTER 2022-12-24 12:51 | Emergency (ER) | payer OTHER, SELFPAY ==
[2022-12-24 12:57] VITALS: BP 151/89; PULSE 89; RESP 18; TEMP 36.6; O2SAT 99; BMI 32.9
--- NOTE | 2022-12-24 12:58 | ED_ITS ---
HPI - Skin/Abscess/Foreign Bdy General Chief complaint: Allergic Reaction Stated complaint: Rash Time Seen by Provider: 12/24/22 12:58 Source: patient, family, RN notes reviewed and old records reviewed Mode of arrival: ambulatory History of Present Illness HPI narrative: 62-year-old female with medical history anxiety, diabetes, depression, HTN, GERD, HLD, presenting to the ED complaining pruritic rash to neck line/upper chest x 5 days. Admits rash started after wearing a necklace. Reports only other new exposures is a new protein powder. Denies new soaps, lotions, detergents, medications, take her insect bites, SOB, mucous membrane involvement. MD complaint: rash Related Data Home Medications Medication Instructions Recorded Confirmed amlodipine 10 mg tablet 10 mg PO DAILY 02/05/20 08/23/22 fluticasone propionate 50 1 spray intranasal DAILY PRN nasal 07/19/20 08/23/22 mcg/actuation nasal congestion spray,suspension metoprolol tartrate 25 mg tablet 25 mg PO BID 05/08/22 08/23/22 blood sugar diagnostic 08/29/22 blood-glucose meter (OneTouch #1 ea 08/29/22 Ultra2 Meter) fluoxetine 40 mg capsule 40 mg PO DAILY 08/29/22 lorazepam 0.5 mg tablet 0 mg PO 08/29/22 trazodone 50 mg tablet 50 - 150 mg PO BEDTIME PRN 08/29/22 Previous Rx's Medication Instructions Recorded lancets #100 ea 08/20/22 clotrimazole 1 % topical cream 1 appl topical BID #45 grams 08/23/22 insulin glargine 100 unit/mL (3 15 unit (0.15 mL) subcut QAM #15 mL 08/29/22 mL) subcutaneous pen (Lantus Solostar U-100 Insulin) pen needle, diabetic 32 gauge x #30 ea 08/30/22 5/16 (Comfort EZ Pen [place]) dulaglutide 1.5 mg/0.5 mL 1.5 mg (0.5 mL) subcut QWEEK #2 mL 09/13/22 subcutaneous pen injector (Trulicity) blood sugar diagnostic (OneTouch #100 ea 09/16/22 Ultra Test strips) flash glucose scanning reader #1 ea 09/24/22 (FreeStyle Jame 2 [place]) flash glucose sensor (FreeStyle #2 ea 09/24/22 Jame 2 Sensor kit) inulin 2 gram chewable tablet 2 g PO DAILY #30 tabs 12/03/22 (Fiber Gummies) sennosides 8.6 mg tablet (senna) 8.6 mg PO DAILY #90 tabs 12/03/22 diphenhydramine HCl 25 mg capsule 25 mg PO TID PRN allergic reaction 12/24/22 (Benadryl) #14 caps hydrocortisone 1 % topical cream 1 appl topical BID PRN rash #28.35 12/24/22 (Anti-Itch (hydrocortisone)) grams Allergies Allergy/AdvReac Type Severity Reaction Status Date / Time latex [LATEX] Allergy Mild RASH Verified 12/24/22 12:57 metformin AdvReac Unknown Verified 12/24/22 12:57 Review of Systems Review of Systems: Constitutional: No Fever, No Chills ENT/Mouth: No Ear Pain, No Nasal Congestion, No Sinus Pain, No Hoarseness, No sore throat, No Rhinorrhea, No Swallowing Difficulty Cardiovascular: No Chest Pain, No SOB Respiratory: No Cough, No Sputum, No Wheezing Gastrointestinal: No Nausea, No Vomiting, No Diarrhea, No Constipation, No Abdominal pain Musculoskeletal: No joint pain, No Myalgias, No Joint Swelling Skin: +Skin Lesions, No rash Neuro: No Weakness, No Numbness, No Paresthesias Yes all other systems are reviewed and are negative Constitutional: Constitutional: Reports as per [facility] Past Medical History Attestation statement: The following information was validated with the patient. Source: old records reviewed Medical History Anxiety B12 deficiency BMI 34.0-34.9,adult BMI 35.0-35.9,adult BMI 36.0-36.9,adult Chronic kidney disease Chronic renal insufficiency COVID-19 vaccine series completed Cyst, kidney, acquired Depression Diabetes type 2, uncontrolled Diabetic neuropathy Diabetic 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 with type 2 diabetes mellitus Distal radius fracture, right Dyslipidemia GERD (gastroesophageal reflux disease) HTN (hypertension) prison (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 insulin Nephrolithiasis Non-toxic multinodular goiter Obesity (BMI 30-39.9) Pre-op evaluation Tachycardia Toxic multinodul goiter Surgical History H/O colonoscopy History of carpal tunnel release (~2018) History of section History of esophagogastroduodenoscopy (EGD) History of partial hysterectomy History of surgery History of total left knee replacement (~2010) History of total right knee replacement Hx of biopsy Hx of cholecystectomy S/P fine needle aspiration S/P laparoscopic sleeve gastrectomy Family History Family History Father Hypertension Diabetes History of kidney cancer Mother Diabetes Hypertension Heart disease Brother Hypertension Diabetes Brother No problems noted. Son Hypertension Prediabetes Heart disease Daughter Prediabetes Social History Social History Household Members: Spouse Are you a primary career development associate to a significant other at home: No Do you presently have visiting nurse or other home services: Yes (VNA) Alcohol intake: never Patient Tobacco Use Status: Never used Tobacco Physical Exam Vital Signs: Vital Signs: Last Vital Signs Temp 98 F 12/24/22 12:57 Pulse 89 12/24/22 12:57 Resp 18 12/24/22 12:57 BP 151/89 H 12/24/22 12:57 Pulse Ox 99 12/24/22 12:57 O2 Del Method Room Air 12/24/22 12:57 BMI result Body Mass Index 32.9 Const: General: cooperative, healthy appearing and no acute distress Orientation/consciousness: patient oriented x3 Limitations: no limitations HEENT: Head: Yes normal to inspection and Yes atraumatic Ears: hearing grossly normal bilaterally General nose exam: Normal external nose present Face and sinus: Yes normal facial exam Mouth: Normal oral and palatal mucosa present, tongue normal and no drooling Throat: Yes posterior oropharynx normal, Yes tonsils normal, Yes uvula midline, No uvula laterally displaced and No uvular edema Eyes: General: appearance normal, both eyes and all related structures EOM: EOMs intact bilaterally Neck: Neck: Yes normal visual inspection and Yes no meningeal signs Resp: Effort & Inspection: normal respiratory effort and no respiratory distress Cardio: Rate: regular rate Skin: Other: + erythematous papular rash noted it to neck line and upper chest in necklace distribution. Overlying excoriations noted. No pustules/vesicles. No slough ing. No palm/sole or mucous membrane involvement Wounds: no wounds Neuro: General: patient oriented x3, tone normal and no meningeal signs Cranial nerves: Yes CN's II-XII intact bilaterally Gait exam (Neuro): Normal gait present Extrem: General: Yes normal to inspection Medical Decision Making Medical Decision Making MDM Narrative: 62-year-old female with medical history anxiety, diabetes, depression, HTN, GERD, HLD, presenting to the ED complaining pruritic rash to neck line/upper chest x 5 days. On exam vital signs stable, NAD, nontoxic appearing, physical exam as noted above, concern for contact dermatitis. Low suspicion for SJS/TENs, anaphylaxis. Plan: Benadryl, topical hydrocortisone, dermatology/PCP follow-up Results discussed with patient including worrisome signs and symptoms and strict return precautions, and when to return to the emergency department. They verbalized understanding and feel safe for discharge at this time. Differential Diagnosis Differential Diagnoses: The differential diagnosis associated with the p resentation includes As above External Record Review External record reviewed: Inpatient record, Office record, Outpatient record, Prior outpatient labs, Prior outpatient radiology, Primary care record and Outside ED record Tests considered The following testing was considered but not selected: As above Prescription Management I considered prescription management with: Antibiotic and Other Chronic Conditions Patient?s care impacted by: Diabetes and Hypertension Discharge Plan Discharge Clinical Impression: Contact dermatitis Patient Disposition: Home, Self-Care Instructions: Contact Dermatitis (DC) Additional Instructions: Apply topical hydrocortisone cream as prescribed If rash is spreading/worsening you develop shortness of breath/wheezing or throat closing sensation return to the ED Follow-up with her doctor in Dermatology as needed Prescriptions: New hydrocortisone [Anti-Itch (HC)] 1 % cream 1 appl topical BID PRN (Reason: rash) Qty: 28.35 0RF diphenhydramine HCl [Benadryl] 25 mg capsule 25 mg PO TID PRN (Reason: allergic reaction) Qty: 14 0RF No Action (DME) pen needle, diabetic [Comfort EZ Pen [place]] 32 gauge x 5/16 needle See Rx Instructions .Route Qty: 30 5RF Rx Instructions: As directed injects once a day Trulicity 1.5 mg/0.5 mL pen injector 1.5 mg subcut QWEEK Qty: 2 5RF (DME) OneTouch Ultra Test Strip See Rx Instructions .Route Qty: 100 4RF Rx Instructions: As directed 3 times a day (DME) FreeStyle Jame 2 Sensor Kit See Rx Instructions .Route Qty: 2 4RF Rx Instructions: As directed change every 10 days (DME) FreeStyle Jame 2 [place] [facility] See Rx Instructions .Route Qty: 1 0RF Rx Instructions: As directed (DME) lancets [facility] See Rx Instructions .Route Qty: 100 0RF Rx Instructions: As directed amlodipine 10 mg tablet 10 mg PO DAILY fluticasone propionate 50 mcg/actuation spray,suspension 1 spray intranasal DAILY PRN (Reason: nasal congestion) metoprolol tartrate 25 mg tablet 25 mg PO BID clotrimazole 1 % cream 1 appl topical BID Qty: 45 3RF sennosides [senna] 8.6 mg tablet 8.6 mg PO DAILY Qty: 90 1RF Fiber Gummies 2 gram tablet,chewable 2 g PO DAILY Qty: 30 3RF (DME) blood-glucose meter [OneTouch Ultra2 Meter] [facility] See Rx Instructions .ROUTE DIRECTED Qty: 1 Rx Instructions: As directed (DME) blood sugar diagnostic Strip See Rx Instructions .Route Rx Instructions: As directed trazodone 50 mg tablet 50 - 150 mg PO BEDTIME PRN lorazepam 0.5 mg tablet 0 mg PO fluoxetine 40 mg capsule 40 mg PO DAILY insulin glargine [Lantus Solostar U-100 Insulin] 100 unit/mL (3 mL) insulin pen 15 unit subcut QAM Qty: 15 5RF Referrals: Brenna Gonzalez PA [Physician Handle Bar Assembler] - Hernan Hayes MD [Physician] - Jan Jauregui MD [Physician] - Kaley Jacobson MD [Primary Care Provider] -
== END 2022-12-24 13:06 | disposition home or self-care (01) ==
PROVIDERS: Emergency Provider Emergency Medicine; PCP Internal Medicine
DX: L25.9 Unspecified contact dermatitis, unspecified cause (principal); R21 Rash and other nonspecific skin eruption; E11.22 Type 2 diabetes mellitus with diabetic chronic kidney disease; I12.9 Hypertensive chronic kidney disease with stage 1 through stage 4 chronic kidney disease, or unspecified chronic kidney disease; N18.9 Chronic kidney disease, unspecified; E78.5 Hyperlipidemia, unspecified; Z79.4 Long term (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 insulin; Z79.899 Other long term (current) drug therapy; Z98.84 Bariatric surgery status
CPT/HCPCS: 99282; 99283

== ENCOUNTER 2022-12-31 08:03 | Outpatient (AMB) | payer OTHER, SELFPAY ==
[2022-12-31 08:16] VITALS: BP 142/92; PULSE 81; BMI 33.1
--- NOTE | 2022-12-31 08:16 | MHC.OFFVIS ---
Intake Vital Signs 12/31/22 08:16 Height 5 ft 1 in Weight 175 lb 0.752 oz BMI 33.1 BP 142/92 H Blood Pressure Location Lt brachial Position Sitting Pulse 81 Pulse Source Pulse Oximeter Intake Visit Reasons: F/Up Type 2 DM Intake Note: atient present today to follow up on Type 2 Diabetes Mellitus. Patient receives DME supplies through: Pharmacy Last Diabetic Eye exam: 02/2022 Last Podiatry Visit: Does not see Electrocardiograph Operator Random Glucose: 188 mg/dl HgA1C: 6.6% Entertainment Manager Required: Yes Entertainment Manager Language: Automotive Repair Technician Name: [facility] Information Interpreted: non-clinical & clinical Accompanied by: Spouse Allergies latex [LATEX] Allergy (Mild, Verified 12/31/22 08:21) RASH metformin Adverse Reaction (Verified 12/31/22 08:21) Unknown Medication List - Last Reconciled 12/31/22 by Jose Enrique Merritt MD amlodipine 10 mg PO DAILY blood sugar diagnostic (OneTouch Ultra Test strips) As directed 3 times a day blood sugar diagnostic As directed blood-glucose meter (OneTouch Ultra2 Meter) As directed clotrimazole 1% 1 appl topical BID diphenhydramine HCl (Benadryl) 25 mg PO TID PRN dulaglutide (Trulicity) 1.5 mg (0.5 mL) subcut QWEEK flash glucose scanning reader ([employer] Jame 2 [place]) As directed flash glucose sensor (FreeStyle Jame 2 Sensor kit) As directed change every 10 days fluoxetine 40 mg PO DAILY fluticasone propionate 50 mcg/actuation 1 spray intranasal DAILY PRN hydrocortisone 1% (Anti-Itch (hydrocortisone)) 1 appl topical BID PRN insulin glargine (Lantus Solostar U-100 Insulin) 15 units (0.15 mL) subcut QAM inulin (Fiber Gummies) 2 grams PO DAILY lancets As directed lorazepam 0 mg PO metoprolol tartrate 25 mg PO BID pen needle, diabetic (Comfort EZ Pen [place]) As directed injects once a day sennosides (senna) 8.6 mg PO DAILY trazodone 50 - 150 mg PO BEDTIME PRN HPI HPI Comments History of Present Illness Details 62 yo female today for fup visit, for diabetes management Regimen: Lantus 15 units, Trulicity 1.5 mg q.week Jame download shows she is using the sensor 8% of the time. Average glucose is 149 with standard deviation of 18.6%. She is in target range 81% of the time with 19% hyperglycemia No hypoglycemia She has DM type 2 diagnosed 20 years ago. She has past medical history of depression, osteoporosis, right renal hydronephrosis, hypertension, hyperlipidemia, non toxic multinodular goiter. She has neuropathy, retinopathy, has CKD with creatinine worsening and sees nephrology 06/26/21 NO macrovascular disease. Last ophthalmology evaluation 06/2022 , stable retinopathy. Pending note for review. Denies nocturia, polyuria, numbness, tingling, + blurred vision. She lost 3 lb since last visit. Denies hypoglycemia She became very hyperglycemic presented to the emergency room and then restarted the Trulicity and Lantus with improvement in blood sugars Celiac disease antibodies are negative and the genetic testing for celiac is low risk for celiac. <0.1 X. Date of Service: 05/09/20 US THYROID Right Thyroid Lobe: 6.1 x 2.1 x 2.3 cm, volume 15.4 mL. Previously 6.2 x 2.4 x 2.4 cm, volume 18.7 mL. Parenchyma: The gland echotexture is homogeneous. Thyroid vascularity is normal. Left Thyroid Lobe: 6.0 x 2.1 x 2.8 cm, volume 17.9 mL. Previously 6.2 x 1.8 x 2.6 cm, volume 15.2 mL. Parenchyma: The gland echotexture is homogeneous. Thyroid vascularity is normal. Isthmus: 0.4 cm in maximum AP dimension. Previously 0.3 cm. RIGHT THYROID LOBE: There are 4 nodules seen. 1. Location: Upper Size: 0.6 x 0.3 x 0.5 cm. Previous: 0.6 x 0.3 x 0.5 cm. Nodule characteristics: Hypoechoic, smoothly marginated with no intranodular flow, likely simple cyst. 2. Location: Mid Size: 1.3 x 0.7 x 1.3 cm. Previous: 1.4 x 1.0 x 1.6 cm. Nodule characteristics: Hypoechoic, smoothly marginated with intranodular flow, likely complex cyst. 3. Location: Mid Size: 1.0 x 0.9 x 0.9 cm. Previous: 1.5 x 1.2 x 1.7 cm. Nodule characteristics: Hypoechoic, irregular margins with no intranodular flow. 4. Location: Lower Size: 0.7 x 0.6 x 0.6 cm. Previous: 0.6 x 0.5 x 0.6 cm. Nodule characteristics: Heterogenous, irregular margins and no intranodular flow. ISTHMUS: No nodules. LEFT THYROID LOBE: There are 4 nodules seen. 1. Location: Upper Size: 0.8 x 0.5 x 0.5 cm. Previous: 1.0 x 0.5 x 0.7 cm. Nodule characteristics: Heterogeneous, irregular margins with no calcification and no intranodular flow. 2. Location: Upper Size: 2.2 x 1.0 x 1.8 cm. Previous: 1.4 x 0.8 x 1.2 cm. Nodule characteristics: Hypoechoic irregular margins with intranodular flow. 3. Location: Upper Size: 1.0 x 0.5 x 0.8 cm. Previous: None Nodule characteristics: Hypoechoic, irregular shaped with macrocalcifications and intranodular flow. 4. Location: Mid Size: 0.4 x 0.3 x 0.4 cm. Previous: None Nodule characteristics: Hypoechoic, irregular shaped with no intranodular flow. NODES: No lymphadenopathy is seen in the tissue surrounding the thyroid gland. Laboratory Tests 07/19/20 08/23/20 08/23/20 12:16 08:20 08:20 Hgb 13.3 Hct 41.9 Sodium 144 Potassium 4.2 Creatinine 1.24 Estimated GFR 44 Estimat Average Gl ucose Hemoglobin A1c % Calcium 9.6 AST 11 ALT 15 Alkaline Phosphata se 98 Albumin 4.5 Triglycerides 181 Cholesterol 156 LDL Cholesterol Di rect 116 H LDL Cholesterol, C alc 76 HDL Cholesterol 44 Vitamin B12 25-OH Vitamin D To jackelin 39.5 TSH 0.30 L 08/23/20 08/23/20 08:20 08:20 Hgb Hct Sodium Potassium Creatinine Estimated GFR Estimat Average Gl ucose 163 Hemoglobin A1c % 7.3 Calcium AST ALT Alkaline Phosphata se Albumin Triglycerides Cholesterol LDL Cholesterol Di rect LDL Cholesterol, C alc HDL Cholesterol Vitamin B12 380 25-OH Vitamin D To jackelin TSH Laboratory Tests 07/19/20 07/19/20 07/19/20 11:32 11:44 12:16 Sodium 144 Potassium 4.2 BUN 14 Creatinine 1.22 Estimated GFR 45 Glucose (Clinic) 196 H Fasting Glucose 174 H Hgb A1c (Clinic) 7.3 H LDL Cholesterol Di rect Vitamin B12 25-OH Vitamin D To jackelin 43.0 IgA Endomysial IgA Ab Tiss Transglutamin IgG 07/19/20 07/19/20 07/19/20 12:16 12:16 12:16 Sodium Potassium BUN Creatinine Estimated GFR Glucose (Clinic) Fasting Glucose Hgb A1c (Clinic) LDL Cholesterol Di rect 116 H Vitamin B12 215 25-OH Vitamin D To jackelin IgA 209 Endomysial IgA Ab NEGATIVE Tiss Transglutamin IgG 1 Laboratory Tests 03/05/19 01/28/20 01/28/20 13:45 09:08 09:23 Hgb Hct Sodium Potassium Creatinine Est GFR (Non-Af Am er) POC Glucose 163 H Random Glucose Hgb A1c Fingerstic k 6.5 Fructosamine 256 Calcium AST ALT Triglycerides Cholesterol LDL Cholesterol Di rect LDL Cholesterol, C alc HDL Cholesterol Vitamin B12 25-OH Vitamin D To jackelin Free T4 TSH 3rd Generation Ur Random Microalb umin Microalb/Creat Rat io 01/28/20 01/28/20 01/28/20 09:40 10:16 10:16 Hgb Hct Sodium 145 Potassium 4.3 Creatinine 1.36 Est GFR (Non-Af Am er) 40 POC Glucose Random Glucose 118 H Hgb A1c Fingerstic k Fructosamine Calcium 9.5 D AST 11 ALT 13 Triglycerides 161 Cholesterol 155 LDL Cholesterol Di rect LDL Cholesterol, C alc 70 HDL Cholesterol 53 Vitamin B12 198 L 25-OH Vitamin D To jackelin 27.5 Free T4 0.95 TSH 3rd Generation 0.30 L Ur Random Microalb umin < 5.0 Microalb/Creat Rat io TNP 01/28/20 01/28/20 10:16 10:16 Hgb 13.4 Hct 43.1 Sodium Potassium Creatinine Est GFR (Non-Af Am er) POC Glucose Random Glucose Hgb A1c Fingerstic k Fructosamine Calcium AST ALT Triglycerides Cholesterol LDL Cholesterol Di rect 77 LDL Cholesterol, C alc HDL Cholesterol Vitamin B12 25-OH Vitamin D To jackelin Free T4 TSH 3rd Generation Ur Random Microalb umin Microalb/Creat Rat io [facility] Medical History Anxiety B12 deficiency BMI 34.0-34.9,adult BMI 35.0-35.9,adult BMI 36.0-36.9,adult Chronic kidney disease Chronic renal insufficiency COVID-19 vaccine series completed Cyst, kidney, acquired Depression Diabetes type 2, uncontrolled Diabetic neuropathy Diabetic 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 with type 2 diabetes mellitus Distal radius fracture, right Dyslipidemia GERD (gastroesophageal reflux disease) HTN (hypertension) longterm (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 insulin Nephrolithiasis Non-toxic multinodular goiter Obesity (BMI 30-39.9) Pre-op evaluation Tachycardia Toxic multinodul goiter Surgical History H/O colonoscopy History of carpal tunnel release (~2017) History of section History of esophagogastroduodenoscopy (EGD) History of partial hysterectomy History of surgery History of total left knee replacement (~2010) History of total right knee replacement Hx of biopsy Hx of cholecystectomy S/P fine needle aspiration S/P laparoscopic sleeve gastrectomy Family History Father Hypertension Diabetes History of kidney cancer Mother Diabetes Hypertension Heart disease Brother Hypertension Diabetes Brother No problems noted. Son Hypertension Prediabetes Heart disease Daughter Prediabetes Social History Household Members: Spouse Are you a primary customer care manager to a significant other at home: No Do you presently have visiting nurse or other home services: Yes ([facility]) Alcohol intake: never Patient Tobacco Use Status: Never used Tobacco Physical Exam Vital Signs: Last Vital Signs Pulse 81 12/31/22 08:16 BP 142/92 H 12/31/22 08:16 BMI result Body Mass Index 33.1 Absence of Cushingoid features. Absence of acromegalic features. Neck exam reveals nl size thyroid about 15 gms. No thyroid nodules palpable. No carotid bruits present. Lungs CTA. Heart S1 S2, Reg R/R. No M/R/ G. Skin exam reveals absence of vitiligo or acanthosis nigricans. Abdominal exam reveals Soft NT/ND with NA BS. No organomegaly present. Neck Other: . Extrem Other: Visual exam of foot performed. No ulcerations or open lesions. No onchomycosis, no callouses.Pulses 2 + distally Sensation intact to monofilament exam. Vibratory sensation sensed is decreased with 128 Hz tuning fork Results AMB Hemoglobin A1c AMB Hemoglobin A1c 6.6 % Last Edit by Mell Lo on 12/31/22 08:37 Results Reviewed Results Reviewed: 12/31/22 08:27 Glucose, Whole Blood Routine Laboratory Last Values Glucose (Clinic) 188 mg/dL (60-115) H 12/31/22 08:27 Hgb A1c (Clinic) 6.6 % (4.0-6.0) H 12/31/22 08:32 Assessment & Plan Assessment & Plan (1) Diabetes type 2, uncontrolled: Comment: glucose usually ~ 138-180 Code(s): E11.65 - Type 2 diabetes mellitus with hyperglycemia Plan: This is a 61-year-old female with a history of type 2 diabetes with improved glycemic control on once restarted Trulicity Lantus with? known microvascular complications namely neuropathy and CKD stage 4? . Plan is to continue the current regimen of Trulicity and Lantus. At this point, patient returned to the care of her primary care provider and return back to endocrinology for HbA1c deteriorate (2) Non-toxic multinodular goiter: Code(s): E04.2 - Nontoxic multinodular goiter Orders: Orders AMB Hemoglobin A1c Today E11.9 - Type 2 diabetes mellitus without complications Coding Level of Care Code Est Pt Level 4 (88732) Diagnoses Diabetes type 2, uncontrolled E11.65 Non-toxic multinodular goiter E04.2
[2022-12-31 08:31] LABS: Glucose, Whole Blood 188 mg/dL (60-115)
== END 2022-12-31 09:02 | disposition home or self-care (01) ==
PROVIDERS: PCP Internal Medicine; Visit Provider Internal Medicine Endocrinology, Diabetes & Metabolism
DX: E11.65 Type 2 diabetes mellitus with hyperglycemia (principal); E04.2 Nontoxic multinodular goiter; E11.9 Type 2 diabetes mellitus without complications
CPT/HCPCS: 99214

== ENCOUNTER → 2022-12-31 08:03 | Outpatient (BNVA) | payer OTHER, SELFPAY | PROVIDERS: Visit Provider Internal Medicine Endocrinology, Diabetes & Metabolism | DX: E11.65 Type 2 diabetes mellitus with hyperglycemia (principal); E11.40 Type 2 diabetes mellitus with diabetic neuropathy, unspecified; E11.22 Type 2 diabetes mellitus with diabetic chronic kidney disease; N18.4 Chronic kidney disease, stage 4 (severe); E04.2 Nontoxic multinodular goiter; Z79.4 Long term (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 insulin | CPT/HCPCS: 82947; 83036; 99212 ==

== ENCOUNTER 2023-02-06 13:35 | Emergency (ER) | payer OTHER, SELFPAY ==
--- NOTE | 2023-02-06 13:49 | ED_ITS ---
HPI - General Adult General Chief complaint: General Medical Stated complaint: upper back and neck pain Time Seen by Provider: 02/06/23 15:44 Related Data Home Medications Medication Instructions Recorded Confirmed amlodipine 10 mg tablet 10 mg PO DAILY 02/05/20 08/23/22 fluticasone propionate 50 1 spray intranasal DAILY PRN nasal 07/19/20 08/23/22 mcg/actuation nasal congestion spray,suspension metoprolol tartrate 25 mg tablet 25 mg PO BID 05/08/22 08/23/22 blood sugar diagnostic 08/29/22 blood-glucose meter (OneTouch #1 ea 08/29/22 Ultra2 Meter) fluoxetine 40 mg capsule 40 mg PO DAILY 08/29/22 lorazepam 0.5 mg tablet 0 mg PO 08/29/22 trazodone 50 mg tablet 50 - 150 mg PO BEDTIME PRN 08/29/22 Previous Rx's Medication Instructions Recorded lancets #100 ea 08/20/22 clotrimazole 1 % topical cream 1 appl topical BID #45 grams 08/23/22 insulin glargine 100 unit/mL (3 15 unit (0.15 mL) subcut QAM #15 mL 08/29/22 mL) subcutaneous pen (Lantus Solostar U-100 Insulin) pen needle, diabetic 32 gauge x #30 ea 08/30/22 5/ (Comfort EZ Pen [place]) dulaglutide 1.5 mg/0.5 mL 1.5 mg (0.5 mL) subcut QWEEK #2 mL 09/13/22 subcutaneous pen injector ([employer]) blood sugar diagnostic (OneTouch #100 ea 09/16/22 Ultra Test strips) flash glucose scanning reader #1 ea 09/24/22 (FreeStyle Jame 2 [place]) flash glucose sensor (FreeStyle #2 ea 09/24/22 Jame 2 Sensor kit) inulin 2 gram chewable tablet 2 g PO DAILY #30 tabs 12/03/22 (Fiber Gummies) sennosides 8.6 mg tablet (senna) 8.6 mg PO DAILY #90 tabs 12/03/22 diphenhydramine HCl 25 mg capsule 25 mg PO TID PRN allergic reaction 12/24/22 (Benadryl) #14 caps hydrocortisone 1 % topical cream 1 appl topical BID PRN rash #28.35 12/24/22 (Anti-Itch (hydrocortisone)) grams Allergies Allergy/AdvReac Type Severity Reaction Status Date / Time latex [LATEX] Allergy Mild RASH Verified 02/06/23 13:51 metformin AdvReac Unknown Verified 02/06/23 13:51 [facility] Past Medical History Medical History Anxiety B12 deficiency BMI 34.0-34.9,adult BMI 35.0-35.9,adult BMI 36.0-36.9,adult Chronic kidney disease Chronic renal insufficiency COVID-19 vaccine series completed Cyst, kidney, acquired Depression Diabetes type 2, uncontrolled Diabetic neuropathy Diabetic 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 with type 2 diabetes mellitus Distal radius fracture, right Dyslipidemia GERD (gastroesophageal reflux disease) HTN (hypertension) long-term (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 insulin Nephrolithiasis Non-toxic multinodular goiter Obesity (BMI 30-39.9) Pre-op evaluation Tachycardia Toxic multinodul goiter Surgical History H/O colonoscopy History of carpal tunnel release (~2017) History of section History of esophagogastroduodenoscopy (EGD) History of partial hysterectomy History of surgery History of total left knee replacement (~2010) History of total right knee replacement Hx of biopsy Hx of cholecystectomy S/P fine needle aspiration S/P laparoscopic sleeve gastrectomy Family History Family History Father Hypertension Diabetes History of kidney cancer Mother Diabetes Hypertension Heart disease Brother Hypertension Diabetes Brother No problems noted. Son Hypertension Prediabetes Heart disease Daughter Prediabetes Social History Social History Household Members: Spouse Are you a primary home care manager rn to a significant other at home: No Do you presently have visiting nurse or other home services: Yes ([facility]NA) Alcohol intake: never Patient Tobacco Use Status: Never used Tobacco Advance Directives: No Physical Exam ED Vital Signs: BMI result Body Mass Index 33.1 Course Course Course Narrative: This is a rapid medical exam: Additional HPI, ROS, PE not included below will be deferred to primary provider. Patient is a 62-year-old Tajik-speaking female with history of DM, sleeve gastrectomy, GERD, HTN, renal insufficiency, dyslipidemia presenting to the emergency department with complaint of neck pain radiating to head for the past week. Has taken Tylenol and ibuprofen without relief. Denies fall or other trauma. States she has numbness/tingling to right arm, but primary complaint is the pain radiating to her head which she describes as someone poking me. Also complains that vision is slightly blurry. Discharge Plan Discharge Clinical Impression: Neck pain Patient Disposition: Left W/O Completing Treatment Prescriptions: No Action (DME) pen needle, diabetic [Comfort EZ Pen [place]] 32 gauge x 5/16 needle See Rx Instructions .Route Qty: 30 5RF Rx Instructions: As directed injects once a day Trulicity 1.5 mg/0.5 mL pen injector 1.5 mg subcut QWEEK Qty: 2 5RF (DME) OneTouch Ultra Test Strip See Rx Instructions .Route Qty: 100 4RF Rx Instructions: As directed 3 times a day (DME) FreeStyle Jame 2 Sensor Kit See Rx Instructions .Route Qty: 2 4RF Rx Instructions: As directed change every 10 days (DME) FreeStyle Jame 2 [place] Misc See Rx Instructions .Route Qty: 1 0RF Rx Instructions: As directed (DME) lancets Misc See Rx Instructions .Route Qty: 100 0RF Rx Instructions: As directed hydrocortisone [Anti-Itch (HC)] 1 % cream 1 appl topical BID PRN (Reason: rash) Qty: 28.35 0RF diphenhydramine HCl [Benadryl] 25 mg capsule 25 mg PO TID PRN (Reason: allergic reaction) Qty: 14 0RF amlodipine 10 mg tablet 10 mg PO DAILY fluticasone propionate 50 mcg/actuation spray,suspension 1 spray intranasal DAILY PRN (Reason: nasal congestion) metoprolol tartrate 25 mg tablet 25 mg PO BID clotrimazole 1 % cream 1 appl topical BID Qty: 45 3RF sennosides [senna] 8.6 mg tablet 8.6 mg PO DAILY Qty: 90 1RF Fiber Gummies 2 gram tablet,chewable 2 g PO DAILY Qty: 30 3RF (DME) blood-glucose meter [OneTouch Ultra2 Meter] Misc See Rx Instructions .ROUTE DIRECTED Qty: 1 Rx Instructions: As directed (DME) blood sugar diagnostic Strip See Rx Instructions .Route Rx Instructions: As directed trazodone 50 mg tablet 50 - 150 mg PO BEDTIME PRN lorazepam 0.5 mg tablet 0 mg PO fluoxetine 40 mg capsule 40 mg PO DAILY insulin glargine [Lantus Solostar U-100 Insulin] 100 unit/mL (3 mL) insulin pen 15 unit subcut QAM Qty: 15 5RF Discharge Date/Time: 02/06/23 19:55
[2023-02-06 13:51] VITALS: BP 155/101; PULSE 97; RESP 18; TEMP 37; O2SAT 97; BMI 33.1
== END 2023-02-06 19:55 | disposition left against medical advice (07) ==
PROVIDERS: Emergency Provider Emergency Medicine; PCP Internal Medicine
DX: M54.2 Cervicalgia (principal); E11.22 Type 2 diabetes mellitus with diabetic chronic kidney disease; I12.9 Hypertensive chronic kidney disease with stage 1 through stage 4 chronic kidney disease, or unspecified chronic kidney disease; N18.9 Chronic kidney disease, unspecified; E78.5 Hyperlipidemia, unspecified; Z79.899 Other long term (current) drug therapy; Z79.4 Long term (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 insulin
CPT/HCPCS: 99281

== ENCOUNTER 2023-02-19 11:31 | Emergency (ER) | payer OTHER, SELFPAY ==
--- NOTE | 2023-02-19 11:33 | ECG_ITS ---
Test Reason : cp Blood Pressure : / mmHG Vent. Rate : 084 BPM Atrial Rate : 084 BPM P-R Int : 148 ms QRS Dur : 084 ms QT Int : 386 ms P-R-T Axes : 026 -09 023 degrees QTc Int : 456 ms Normal sinus rhythm Minimal voltage criteria for LVH, may be normal variant ( R in aVL ) Borderline ECG When compared with ECG of 10-AUG-2021 12:14, Heart rate has increased Referred By: Livia Marina Electronically Signed By:OSCAR RAZO MD
--- NOTE | 2023-02-19 11:43 | ED_ITS ---
HPI - Chest Pain General Chief Complaint: Chest Pain Stated Complaint: chest pain into L arm Time Seen by Provider: 02/19/23 18:28 Source: patient Mode of arrival: ambulatory Limitations: language barrier History of Present Illness HPI narrative: Pain started last night it comes and goes. The pain radiates down her left arm, 4 years ago she had a cardiac cath and it was normal MD complaint: chest pain Onset (ago): day(s) Related Data Home Medications Medication Instructions Recorded Confirmed amlodipine 10 mg tablet 10 mg PO DAILY 02/05/20 08/23/22 fluticasone propionate 50 1 spray intranasal DAILY PRN nasal 07/19/20 08/23/22 mcg/actuation nasal congestion spray,suspension metoprolol tartrate 25 mg tablet 25 mg PO BID 05/08/22 08/23/22 blood sugar diagnostic 08/29/22 blood-glucose meter (OneTouch #1 ea 08/29/22 Ultra2 Meter) fluoxetine 40 mg capsule 40 mg PO DAILY 08/29/22 lorazepam 0.5 mg tablet 0 mg PO 08/29/22 trazodone 50 mg tablet 50 - 150 mg PO BEDTIME PRN 08/29/22 Previous Rx's Medication Instructions Recorded lancets #100 ea 08/20/22 clotrimazole 1 % topical cream 1 appl topical BID #45 grams 08/23/22 insulin glargine 100 unit/mL (3 15 unit (0.15 mL) subcut QAM #15 mL 08/29/22 mL) subcutaneous pen (Lantus Solostar U-100 Insulin) pen needle, diabetic 32 gauge x #30 ea 08/30/22 5/16 (Comfort EZ Pen [place]) dulaglutide 1.5 mg/0.5 mL 1.5 mg (0.5 mL) subcut QWEEK #2 mL 09/13/22 subcutaneous pen injector (TrulicTetra [place]) blood sugar diagnostic (OneTouch #100 ea 09/16/22 Ultra Test strips) flash glucose scanning reader #1 ea 09/24/22 (FreeStyle Jame 2 [place]) flash glucose sensor (FreeStyle #2 ea 09/24/22 Jame 2 Sensor kit) inulin 2 gram chewable tablet 2 g PO DAILY #30 tabs 12/03/22 (Fiber Gummies) sennosides 8.6 mg tablet (senna) 8.6 mg PO DAILY #90 tabs 12/03/22 diphenhydramine HCl 25 mg capsule 25 mg PO TID PRN allergic reaction 12/24/22 (Benadryl) #14 caps hydrocortisone 1 % topical cream 1 appl topical BID PRN rash #28.35 12/24/22 (Anti-Itch (hydrocortisone)) grams Allergies Allergy/AdvReac Type Severity Reaction Status Date / Time latex [LATEX] Allergy Mild RASH Verified 02/06/23 13:51 metformin AdvReac Unknown Verified 02/06/23 13:51 Review of Systems 2 Review of Systems: Yes all other systems are reviewed and are negative Neurologic: Denies Sensory deficit (Neuro) [facility] Past Medical History Medical History Anxiety Depression GERD (gastroesophageal reflux disease) COVID-19 vaccine series completed Tachycardia Toxic multinodul goiter Chronic renal insufficiency Nephrolithiasis Cyst, kidney, acquired Diabetic neuropathy BMI 34.0-34.9,adult BMI 35.0-35.9,adult BMI 36.0-36.9,adult Pre-op evaluation B12 deficiency Obesity (BMI 30-39.9) Non-toxic multinodular goiter Dyslipidemia Diabetic 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 with type 2 diabetes mellitus senior living (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 insulin Distal radius fracture, right HTN (hypertension) Chronic kidney disease Diabetes type 2, uncontrolled Surgical History History of surgery S/P fine needle aspiration S/P laparoscopic sleeve gastrectomy History of esophagogastroduodenoscopy (EGD) H/O colonoscopy Hx of biopsy History of partial hysterectomy History of total right knee replacement History of total left knee replacement (~2010) Hx of cholecystectomy History of section History of carpal tunnel release (~2017) Family History Family History Father Hypertension Diabetes History of kidney cancer Mother Diabetes Hypertension Heart disease Brother Hypertension Diabetes Brother No problems noted. Son Hypertension Prediabetes Heart disease Daughter Prediabetes Social History Social History Household Members: Spouse Are you a primary primary care provider to a significant other at home: No Do you presently have visiting nurse or other home services: Yes ([facility]NA) Alcohol intake: never Patient Tobacco Use Status: Never used Tobacco Advance Directives: No Advance Directives Information Provided: No Physical Exam 2 Vital Signs: Vital Signs: Last Vital Signs Temp 98.8 F 02/19/23 11:46 Pulse 86 02/19/23 11:46 Resp 20 02/19/23 11:46 BP 147/91 H 02/19/23 11:46 Pulse Ox 99 02/19/23 11:46 O2 Del Method Room Air 02/19/23 11:46 BMI result Body Mass Index 33.1 Const: General: healthy appearing Nutritional Appearance: average body habitus Orientation/consciousness: oriented to person and patient oriented x3 Limitations: no limitations HEENT: Head: Yes normal to inspection Ears: external ears normal General nose exam: Normal external nose present Mouth: Normal oral and palatal mucosa present and oropharynx normal Throat: Yes posterior oropharynx normal Eyes: General: appearance normal, both eyes and all related structures Neck: Other: supple Neck: Yes normal visual inspection Chest: Chest palpation & inspection: normal inspection of the chest Resp: Auscultation: clear to auscultation bilaterally Cardio: Jugular venous distension: no JVD Rate: regular rate Rhythm: r egular rhythm Heart sounds: S1 normal heart sound present and S2 normal heart sound present GI: Inspection: Yes normal to inspection Palpation (GI): Soft to palpation, nontender and No hepatosplenomegaly present Auscultation: normal bowel sounds : General: Yes no CVA tenderness Back/Spine/Pelvis: Back: no CVA tenderness Skin: General skin exam: no rashes or lesions noted Neuro: General: oriented to person and patient oriented x3 Cranial nerves: Yes CN's II-XII intact bilaterally Motor exam (neuro): 5/5 motor strength present throughout Sensory Exam: No Sensory deficit (Neuro) Extrem: General: Yes normal to inspection Psych: Appearance: grossly normal Course Course Course Narrative: RME - 62 yo Estonian speaking female with history of DM on insulin w/ polyneuropathy obesity s/p gastric sleeve, GERD, anxiety/depression, HTN, HLD who presents to the ER for evaluation of 10/10 constant central and left sided chest pain that radiates to the left arm which started last night. +SOB, no nausea. Reports a cough, headache and subjective fever/chills yesterday. She has history of a cardiac catheterization in [place] 1 year ago and no stents required. Plan: VSS in triage, EKG with no ST elevations. labs done. CXR and viral swabs pending. Reevaluation(s) Reevaluation #1: patient with a frequent history of chest pain with prior workup and prior cath, now with chest pain again. EKG and serial enzymes negative will dc h ome Time: 20:10 Medical Decision Making Differential Diagnosis Differential Diagnoses: The differential diagnosis associated with the presentation includes (STEMI, cardiac ischemia, unstable angina were all considered) Admission/Observation Consideration of admission/observation: Escalation of care including admission/observation considered (upon arrival patient was considered for admission) Lab Data MDM Lab Attestation statement: I reviewed the patient's lab results. (serial troponins were negative) 02/19/23 11:42 02/19/23 11:42 Labs: Lab Results 02/19/23 02/19/23 02/19/23 Range/Units 11:42 12:01 15:48 WBC 7.6 (4.8-10.8) X10*3/uL RBC 4.84 (4.20-5.50) X10*6/uL Hgb 13.4 (12.0-16.0) g/dl Hct 41.9 (37.0-47.0) % MCV 86.6 (80.0-98.0) fL MCH 27.7 (27.0-33.0) pg MCHC 32.0 (31.0-35.0) g/dl RDW 13.2 (11.0-16.0) % Plt Count 242 (160-400) X10*3/uL MPV 11.4 (9.4-12.3) fL Immature Gran % (Auto) 0.4 (0.0-0.4) % Neut % (Auto) 64.7 (45-73) % Lymph % (Auto) 21.1 (20-40) % [place] % (Auto) 9.7 (2-11) % Eos % (Auto) 3.6 (0-4) % Baso % (Auto) 0.5 (0-2) % Lymph # (Auto) 1.6 (1.2-4.9) X10*3/uL [place] # (Auto) 0.7 (0.1-1.2) X10*3/uL Eos # (Auto) 0.3 (0.0-0.4) X10*3/uL Baso # (Auto) 0.0 (0.0-0.2) X10*3/uL Abs Immat Gran (auto) 0.03 (0.00-0.03) X10*3/uL Absolute Neuts (auto) 4.9 (2.0-8.3) x10*3/uL Absolute Nucleated RBC 0.000 (0.0-0.012) X10*3/uL Nucleated RBC % (auto) 0.0 (0.0-0.2) /100WBC Sodium 146 H (135-145) mmol/L Potassium 4.0 (3.3-5.1) mmol/L Chloride 110 H (96-108) mmol/L Carbon Dioxide 24 (22-29) mmol/L Anion Gap 16 (12-20) BUN 13 (9-16) mg/dL Creatinine 1.35 (0.5-1.4) mg/dL Estim Creat Clear Calc 41.7 Estimated GFR 40 Random Glucose 190 H (60-115) mg/dL Calcium 9.5 (8.4-10.2) mg/dL Magnesium 1.9 (1.6-2.6) mg/dL Total Bilirubin 0.6 (0.0-1.0) mg/dL Direct Bilirubin 0.1 (0.0-0.5) mg/dL AST 13 (5-31) U/L ALT 11 (0-31) U/L Alkaline Phosphatase 107 (39-117) U/L Troponin I High Sens < 2.7 (<3.5-17.0) ng/L B-Natriuretic Peptide < 10 (<100) pg/mL Total Protein 7.3 (6.5-8.0) g/dL Albumin 4.2 (3.5-5.0) g/dL Urine Color Yellow Urine Appearance Clear Urine pH 5.5 (5.0-9.0) Ur Specific [place] 1.020 (1.005-1.025) Urine Protein Negative (Neg-Trace) mg/dL Urine Glucose (UA) Negative (Negative) mg/dL Urine Ketones Negative (Negative) mg/dL Urine Blood Negative (Negative) Urine Nitrite Negative (Negative) Ur Leukocyte Esterase Small (1+) H (Negative) Urine RBC 3-5 H (0-2) /HPF Urine WBC 0-5 (0-5) /HPF Ur Squamous Epith Cells 0-2 (0-2) /HPF Urine Bacteria None Seen (None Seen) Hyaline Casts 3-5 (0-2) /LPF Influenza Type A (PCR) NEGATIVE (Negative) Influenza Type B (PCR) NEGATIVE (Negative) RSV RNA Qual (PCR) NEGATIVE (Negative) SARS-CoV-2 RNA (RT-PCR) NEGATIVE (Negative) 02/19/23 Range/Units 19:29 WBC (4.8-10.8) X10*3/uL RBC (4.20-5.50) X10*6/uL Hgb (12.0-16.0) g/dl Hct (37.0-47.0) % MCV (80.0-98.0) fL MCH (27.0-33.0) pg MCHC (31.0-35.0) g/dl RDW (11.0-16.0) % Plt Count (160-400) X10*3/uL MPV (9.4-12.3) fL Immature Gran % (Auto) (0.0-0.4) % Neut % (Auto) (45-73) % Lymph % (Auto) (20-40) % [place] % (Auto) (2-11) % Eos % (Auto) (0-4) % Baso % (Auto) (0-2) % Lymph # (Auto) (1.2-4.9) X10*3/uL [place] # (Auto) (0.1-1.2) X10*3/uL Eos # (Auto) (0.0-0.4) X10*3/uL Baso # (Auto) (0.0-0.2) X10*3/uL Abs Immat Gran (auto) (0.00-0.03) X10*3/uL Absolute Neuts (auto) (2.0-8.3) x10*3/uL Absolute Nucleated RBC (0.0-0.012) X10*3/uL Nucleated RBC % (auto) (0.0-0.2) /100WBC Sodium (135-145) mmol/L Potassium (3.3-5.1) mmol/L Chloride (96-108) mmol/L Carbon Dioxide (22-29) mmol/L Anion Gap (12-20) BUN (9-16) mg/dL Creatinine (0.5-1.4) mg/dL Estim Creat Clear Calc Estimated GFR Random Glucose (60-115) mg/dL Calcium (8.4-10.2) mg/dL Magnesium (1.6-2.6) mg/dL Total Bilirubin (0.0-1.0) mg/dL Direct Bilirubin (0.0-0.5) mg/dL AST (5-31) U/L ALT (0-31) U/L Alkaline Phosphatase (39-117) U/L Troponin I High Sens < 2.7 (<3.5-17.0) ng/L B-Natriuretic Peptide (<100) pg/mL Total Protein (6.5-8.0) g/dL Albumin (3.5-5.0) g/dL Urine Color Urine Appearance Urine pH (5.0-9.0) Ur Specific [place] (1.005-1.025) Urine Protein (Neg-Trace) mg/dL Urine Glucose (UA) (Negative) mg/dL Urine Ketones (Negative) mg/dL Urine Blood (Negative) Urine Nitrite (Negative) Ur Leukocyte Esterase (Negative) Urine RBC (0-2) /HPF Urine WBC (0-5) /HPF Ur Squamous Epith Cells (0-2) /HPF Urine Bacteria (None Seen) Hyaline Casts (0-2) /LPF Influenza Type A (PCR) (Negative) Influenza Type B (PCR) (Negative) RSV RNA Qual (PCR) (Negative) SARS-CoV-2 RNA (RT-PCR) (Negative) Independent Interpretation I performed an independent interpretation of an: EKG (normal sinus 80, old qs inferiorly, old qs septally, no st or twave changes) Independent Historian Clinical information obtained from an independent historian. History obtained from or confirmed by: Spouse Prescription Management I considered prescription management with: Pain Medication (patient pain improved so no narctic or other pain meds at this time) Chronic Conditions Patient?s care impacted by: Diabetes and Hypertension Discharge Plan Discharge Clinical Impression: Chest pain Patient Disposition: Home, Self-Care Instructions: Chest Pain (ED) Prescriptions: No Action (DME) pen needle, diabetic [Comfort EZ Pen [place]] 32 gauge x 5/16 needle See Rx Instructions .Route Qty: 30 5RF Rx Instructions: As directed injects once a day Trulicity 1.5 mg/0.5 mL pen injector 1.5 mg subcut QWEEK Qty: 2 5RF (DME) OneTouch Ultra Test Strip See Rx Instructions .Route Qty: 100 4RF Rx Instructions: As directed 3 times a day (DME) FreeStyle Jame 2 Sensor Kit See Rx Instructions .Route Qty: 2 4RF Rx Instructions: As directed change every 10 days (DME) FreeStyle Jame 2 [place] Misc See Rx Instructions .Route Qty: 1 0RF Rx Instructions: As directed (DME) lancets [facility] See Rx Instructions .Route Qty: 100 0RF Rx Instructions: As directed hydrocortisone [Anti-Itch (HC)] 1 % cream 1 appl topical BID PRN (Reason: rash) Qty: 28.35 0RF diphenhydramine HCl [Benadryl] 25 mg capsule 25 mg PO TID PRN (Reason: allergic reaction) Qty: 14 0RF amlodipine 10 mg tablet 10 mg PO DAILY fluticasone propionate 50 mcg/actuation spray,suspension 1 spray intranasal DAILY PRN (Reason: nasal congestion) metoprolol tartrate 25 mg tablet 25 mg PO BID clotrimazole 1 % cream 1 appl topical BID Qty: 45 3RF sennosides [senna] 8.6 mg tablet 8.6 mg PO DAILY Qty: 90 1RF Fiber Gummies 2 gram tablet,chewable 2 g PO DAILY Qty: 30 3RF (DME) blood-glucose meter [OneTouch Ultra2 Meter] [facility] See Rx Instructions .ROUTE DIRECTED Qty: 1 Rx Instructions: As directed (DME) blood sugar diagnostic Strip See Rx Instructions .Route Rx Instructions: As directed trazodone 50 mg tablet 50 - 150 mg PO BEDTIME PRN lorazepam 0.5 mg tablet 0 mg PO fluoxetine 40 mg capsule 40 mg PO DAILY insulin glargine [Lantus Solostar U-100 Insulin] 100 unit/mL (3 mL) insulin pen 15 unit subcut QAM Qty: 15 5RF Referrals: Kaley Jacobson MD [Primary Care Provider] - 5 days
[2023-02-19 11:46] VITALS: BP 147/91; PULSE 86; RESP 20; TEMP 37.1; O2SAT 99; BMI 33.1
[2023-02-19 11:46] LABS: MANUAL DIFF FLAG NO
[2023-02-19 11:50] LABS: Basophils Percent Auto 0.5 % (0-2); Eosinophils Absolute Auto 0.3 X10*3/uL (0.0-0.4); Eosinophils Percent Auto 3.6 % (0-4); Hematocrit 41.9 % (37.0-47.0); Hemoglobin 13.4 g/dl (12.0-16.0); Imm Gran Abs Auto 0.03 X10*3/uL (0.00-0.03); Imm Gran Pct Auto 0.4 % (0.0-0.4); Lymphocytes Absolute Auto 1.6 X10*3/uL (1.2-4.9); Lymphocytes Percent Auto 21.1 % (20-40); Mean Corpuscular Hemoglobin 27.7 pg (27.0-33.0); Mean Corpuscular Volume 86.6 fL (80.0-98.0); Mean Platelet Volume 11.4 fL (9.4-12.3); Monocytes Absolute Auto 0.7 X10*3/uL (0.1-1.2); Monocytes Percent Auto 9.7 % (2-11); Neutrophils Absolute Auto 4.9 x10*3/uL (2.0-8.3); Neutrophils Percent Auto 64.7 % (45-73); Platelet Count 242 X10*3/uL (160-400); Red Blood Count 4.84 X10*6/uL (4.20-5.50); Red Cell Distribution Width 13.2 % (11.0-16.0); White Blood Count 7.6 X10*3/uL (4.8-10.8)
[2023-02-19 12:01] LABS: Alanine Aminotransferase 11 U/L (0-31); Albumin Level 4.2 g/dL (3.5-5.0); Alkaline Phosphatase 107 U/L (39-117); Anion Gap 16 (12-20); Aspartate Amino Transferase 13 U/L (5-31); Bilirubin Direct 0.1 mg/dL (0.0-0.5); Bilirubin Total 0.6 mg/dL (0.0-1.0); Blood Urea Nitrogen 13 mg/dL (9-16); Calcium 9.5 mg/dL (8.4-10.2); Carbon Dioxide 24 mmol/L (22-29); Chloride 110 mmol/L (96-108); Creatinine Clr Calc Pharmacy 41.7; Estimated Glomerular Filt Rate 40; Glucose Random 190 mg/dL (60-115); Magnesium 1.9 mg/dL (1.6-2.6); Sodium 146 mmol/L (135-145); Total Protein 7.3 g/dL (6.5-8.0)
[2023-02-19 12:06] LABS: B Type Natriuretic Peptide < 10 pg/mL (<100)
[2023-02-19 12:08] LABS: Troponin-I High Sensitivity < 2.7 ng/L (<3.5-17.0)
[2023-02-19 12:57] LABS: Influenza A PCR NEGATIVE (Negative); Influenza B PCR NEGATIVE (Negative); Resp Syncy Virus RNA Qual PCR NEGATIVE (Negative); SARS COV2 PCR INHOUSE NEGATIVE (Negative)
--- NOTE | 2023-02-19 15:49 | MHC.EDTECH ---
PATIENT URINE SAMPLE COLLECTED AND SENT TO LAB .
[2023-02-19 16:30] LABS: Appearance Urine Clear; Color Urine Yellow; Glucose Urine UA Negative (Negative); Leukocyte Esterase Urine Small (1+) (Negative); Nitrite Urine Negative (Negative); PH 5.5 (5.0-9.0); UMIC TRIGGER UACC YES; Urine Blood Negative (Negative); Urine Ketones Negative (Negative); Urine Protein Negative (Neg-Trace)
[2023-02-19 16:50] LABS: Bacteria Urine None Seen (None Seen); Squamous Epithelial Cell Urine 0-2 /HPF (0-2); UACC Culture Trigger YES; WBC Urine 0-5 /HPF (0-5)
[2023-02-19 20:02] LABS: Troponin-I High Sensitivity < 2.7 ng/L (<3.5-17.0)
[2023-02-19 20:31] VITALS: BP 182/72; PULSE 70; O2SAT 96
== END 2023-02-19 20:23 | disposition home or self-care (01) ==
PROVIDERS: Physician Assistant; Emergency Provider Emergency Medicine; PCP Internal Medicine
DX: R07.89 Other chest pain (principal); M79.602 Pain in left arm; E11.9 Type 2 diabetes mellitus without complications; R06.02 Shortness of breath; Z20.822 Contact with and (suspected) exposure to COVID-19; Z20.828 Contact with and (suspected) exposure to other viral communicable diseases; Z98.84 Bariatric surgery status; Z79.4 Long term (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 insulin; Z79.899 Other long term (current) drug therapy
CPT/HCPCS: 0241U; 36415; 80048; 80076; 81001; 83735; 83880; 84484; 85025; 87086; 93005; 99283

== ENCOUNTER 2023-03-11 10:43 | Outpatient (AMB) | payer OTHER, SELFPAY ==
--- NOTE | 2023-03-11 11:03 | A.OFFVIS_ITS ---
Intake VS Expanded 03/11/23 11:20 BP 141/67 H Blood Pressure Location Rt brachial Blood Pressure Position Sitting Pulse 83 Pulse Source Pulse Oximeter Temp 98.3 F Temperature Source Temporal Artery Scan Pulse Oximetry 95 Oxygen Delivery Method Room Air Height 5 ft 1 in Weight 173 lb 3.2 oz BMI 32.7 Body Fat % 33.5 Body Fat Mass 58.0 Fat Free Mass 115.0 Visceral Fat Rating 9.0 Body Water % 47.0 Body Water Mass 81.4 Muscle Mass/Score 109.4 Basal Metabolic Rate/Score 1,544 Intake Visit Reasons: (OV) PO LSG 08/22/21 Allergies latex [LATEX] Allergy (Mild, Verified 03/11/23 11:17) RASH metformin Adverse Reaction (Verified 03/11/23 11:17) Unknown Medication List - Last Reconciled 03/11/23 by MADAN Nelson amlodipine 10 mg PO DAILY blood sugar diagnostic (SongHi EntertainmentTouch Ultra Test strips) As directed 3 times a day blood sugar diagnostic As directed blood-glucose meter (SongHi EntertainmentTouch Ultra2 Meter) As directed clotrimazole 1% 1 appl topical BID diphenhydramine HCl (Benadryl) 25 mg PO TID PRN dulaglutide (Trulicity) 1.5 mg (0.5 mL) subcut QWEEK flash glucose scanning reader (CellTranStyle Jame 2 [place]) As directed flash glucose sensor (FreeStyle Jame 2 Sensor kit) USE DIRECTED TO TEST BLOOD SUGAR. CHANGE EVERY 10 DAYS fluoxetine 40 mg PO DAILY fluticasone propionate 50 mcg/actuation 1 spray intranasal DAILY PRN hydrocortisone 1% (Anti-Itch (hydrocortisone)) 1 appl topical BID PRN insulin glargine (Lantus Solostar U-100 Insulin) 15 units (0.15 mL) subcut QAM inulin (Fiber Gummies) 2 grams PO DAILY lancets As directed lorazepam 0 mg PO metoprolol tartrate 25 mg PO BID pen needle, diabetic (Comfort EZ Pen [place]) As directed injects once a day sennosides (senna) 8.6 mg PO DAILY trazodone 50 - 150 mg PO BEDTIME PRN HPI HPI Comments History of Present Illness Details This?is a?62?yo female who is s/p LSG 08/22/2021. Presents for 19 month post op visit. Weight at last visit on 12/03/2022 was 172 pounds with a BMI of 32.5, weight today is 173.2 pounds, representing a 1.2 pound weight gain with a BMI today of 32.7.? No complaints of nausea, emesis, abdominal pain or reflux, or constipation. 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 Has not taken Lantus this week either due to low readings. She did call PCP to follow up on this and has appt this week. Present meal plan includes: 2 Celebrate shakes- one in morning, one at night, each with 1 scoop in 8oz unsweetened almond milk 1 Celebrate protein bar 1 small meal of 2 forkfuls protein (john ot tolerate more, makes her sick), plus veg reports adequate fluid intake All meals last 20 - 30 minutes and does not drink and eat at the same time. Exercise routine includes: walking on treadmill, upper body strength training 3 days a week for 60-90 minutes Did the patient ever have any of these conditions and are they resolved or still being treated? GERD: rare, triggered by certain foods RUDI:? none DM:? Clint, Lantus HTN:? amlodipine, metoprolol Hyperlipidemia:?off atorvastatin?- was giving her headaches Post op complications:? none Pt reports the clotrimazole cream has been helpful with rashes. [facility] Medical History Anxiety Depression GERD (gastroesophageal reflux disease) COVID-19 vaccine series completed Tachycardia Toxic multinodul goiter Chronic renal insufficiency Nephrolithiasis Cyst, kidney, acquired Diabetic neuropathy BMI 34.0-34.9,adult BMI 35.0-35.9,adult BMI 36.0-36.9,adult Pre-op evaluation B12 deficiency Obesity (BMI 30-39.9) Non-toxic multinodular goiter Dyslipidemia Diabetic 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 with type 2 diabetes mellitus [facility] (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 insulin Distal radius fracture, right HTN (hypertension) Chronic kidney disease Diabetes type 2, uncontrolled Surgical History History of surgery S/P fine needle aspiration S/P laparoscopic sleeve gastrectomy History of esophagogastroduodenoscopy (EGD) H/O colonoscopy Hx of biopsy History of partial hysterectomy History of total right knee replacement History of total left knee replacement (~2010) Hx of cholecystectomy History of section History of carpal tunnel release (~2017) Family History Father Hypertension Diabetes History of kidney cancer Mother Diabetes Hypertension Heart disease Brother Hypertension Diabetes Brother No problems noted. Son Hypertension Prediabetes Heart disease Daughter Prediabetes Social History Household Members: Spouse Are you a primary manager urgent care to a significant other at home: No Do you presently have visiting nurse or other home services: Yes (VNA) Alcohol intake: never Patient Tobacco Use Status: Never used Tobacco Physical Exam Vital Signs: Last Vital Signs Temp 98.3 F 03/11/23 11:20 Pulse 83 03/11/23 11:20 BP 141/67 H 03/11/23 11:20 Pulse Ox 95 03/11/23 11:20 Oxygen Delivery Method Room Air 03/11/23 11:20 BMI result Body Mass Index 32.7 Const General: cooperative, comfortable and no acute distress Orientation/consciousness: patient oriented x3 GI Other: soft, nontender, nondistended, incisions well healed, no hernia, no masses Neuro General: patient oriented x3 Assessment & Plan Assessment & Plan (1) S/P laparoscopic sleeve gastrectomy: Comment: 08/22/21 Code(s): Z98.84 - Bariatric surgery status (2) Obese: Code(s): E66.9 - Obesity, unspecified Plan Discussed that current meal plan is likely too low in protein. Suggested increasing shakes to 2 scoops each, continue 1 bar and 2 forkfuls, to get closer to protein goal of 70g/day. If pt does not feel like her endocrine issues are adequately addressed during next visit with PCP I told her she could call our office and I could put in a new endocrinology referral if she would like. Will order remaining labs not previously done in February. Continue clotrimazole ointment for rashes of excess skin. Discussed short term goal weight of 150- 155lbs to get closer to BMI of 25 to qualify for skin removal surgery. RTC 3 months. Patient is obese and is not considered stable at this time. I spent a total of 30 minutes reviewing/updating records, examining the patient and counseling the patient on weight management as detailed above. Orders: Orders Zinc Today Z98.84 - Bariatric surgery status Vitamin A Today Z98.84 - Bariatric surgery status PTHI Today Z98.84 - Bariatric surgery status Vitamin D 25-OH Total Today Z98.84 - Bariatric surgery status Vitamin B1 Today Z98.84 - Bariatric surgery status Vitamin B12 and Folate Today Z98.84 - Bariatric surgery status Insulin Today E11.9 - Type 2 diabetes mellitus without complications, Z98.84 - Bariatric surgery status Hemoglobin A1c Today E11.9 - Type 2 diabetes mellitus without complications, Z98.84 - Bariatric surgery status TSH reflex Free T4 Today E11.9 - Type 2 diabetes mellitus without complications, Z98.84 - Bariatric surgery status Lipid Panel Today E11.9 - Type 2 diabetes mellitus without complications, Z98.84 - Bariatric surgery status Coding Level of Care Code Est Pt Level 4 (89171) Diagnoses S/P laparoscopic sleeve gastrectomy Z98.84 Obese E66.9
[2023-03-11 11:20] VITALS: BP 141/67; PULSE 83; TEMP 36.8; O2SAT 95; BMI 32.7
== END 2023-03-11 12:05 | disposition home or self-care (01) ==
PROVIDERS: PCP Internal Medicine; Visit Provider Physician Assistant Surgical
DX: E66.9 Obesity, unspecified (principal); Z68.32 Body mass index [BMI] 32.0-32.9, adult; Z90.3 Acquired absence of stomach [part of]; Z98.84 Bariatric surgery status
CPT/HCPCS: 99214

== ENCOUNTER → 2023-03-11 10:43 | Outpatient (BNVA) | payer OTHER, SELFPAY | PROVIDERS: PCP Internal Medicine; Visit Provider Physician Assistant Surgical | DX: E66.9 Obesity, unspecified (principal); Z98.84 Bariatric surgery status; Z68.32 Body mass index [BMI] 32.0-32.9, adult | CPT/HCPCS: 99212 ==

== ENCOUNTER 2023-03-12 07:11 | Outpatient (REF) | payer OTHER, SELFPAY ==
[2023-03-12 07:42] LABS: Estimated Average Glucose 131 mg/dL; Hemoglobin A1c % 6.2 % (<6.0)
[2023-03-12 08:09] LABS: Cholesterol 269 mg/dL (<200); HDL Cholesterol 55 mg/dL (>40); LDL Cholesterol Calculated 172 mg/dL (<100); Triglycerides 210 mg/dL (<150)
[2023-03-12 08:24] LABS: Insulin 19 uU/mL (2-29); TSH reflex Free T4 0.47 uIU/mL (0.32-4.0); Vitamin D 25-OH Total 31.3 ng/mL (>30)
[2023-03-12 08:33] LABS: Folate 11.7 ng/mL (> or = 4.0); Vitamin B12 731 pg/mL (200-900)
[2023-03-14 16:34] LABS: Calcium (PTHI) 9.7 mg/dL (8.6-10.4); PTHI 59 pg/mL (16-77)
[2023-03-15 07:49] LABS: Zinc 93 mcg/dL (60-130)
[2023-03-17 11:22] LABS: Vitamin A 93 mcg/dL (38-98)
[2023-03-19 12:53] LABS: Vitamin B1 9 nmol/L (8-30)
== END 2023-03-12 07:12 | disposition home or self-care (01) ==
LOC: HO.LAB 07:11
PROVIDERS: PCP Internal Medicine; Visit Provider Physician Assistant Surgical
DX: E11.9 Type 2 diabetes mellitus without complications (principal); Z98.84 Bariatric surgery status
CPT/HCPCS: 36415; 80061; 82306; 82607; 82746; 83036; 83525; 83970; 84425; 84443; 84590; 84630

== ENCOUNTER → 2023-06-10 10:13 | Outpatient (BNVA) | payer OTHER, SELFPAY | PROVIDERS: PCP Internal Medicine; Visit Provider Physician Assistant Surgical ==

== ENCOUNTER 2023-06-17 13:41 | Outpatient (AMB) | payer OTHER, SELFPAY ==
--- NOTE | 2023-06-17 13:34 | MHC.OFFVISWM ---
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 Allergies latex [LATEX] Allergy (Mild, Verified 03/11/23 11:17) RASH metformin Adverse Reaction (Verified 03/11/23 11:17) Unknown Medication List - Last Reconciled 06/17/23 by MADAN Nelson amlodipine 10 mg PO DAILY blood sugar diagnostic (OneTouch Ultra Test strips) As directed 3 times a day blood sugar diagnostic As directed blood-glucose meter (OneTouch Ultra2 Meter) As directed clotrimazole 1% 1 appl topical BID diphenhydramine HCl (Benadryl) 25 mg PO TID PRN flash glucose scanning reader (OxonicaStyle Jame 2 [place]) As directed flash glucose sensor (FreeStyle Jame 2 Sensor kit) USE DIRECTED TO TEST BLOOD SUGAR. CHANGE EVERY 10 DAYS fluoxetine 40 mg PO DAILY fluticasone propionate 50 mcg/actuation 1 spray intranasal DAILY PRN hydrocortisone 1% (Anti-Itch (hydrocortisone)) 1 appl topical BID PRN inulin (Fiber Gummies) 2 grams PO DAILY lancets As directed lorazepam 0 mg PO metoprolol tartrate 25 mg PO BID pen needle, diabetic (Comfort EZ Pen [place]) As directed injects once a day sennosides (senna) 8.6 mg PO DAILY tirzepatide (Mounjaro) 2.5 mg subcut QWEEK trazodone 50 - 150 mg PO BEDTIME PRN HPI HPI Comments History of Present Illness Details This?is a?63?yo female who is s/p LSG 08/22/2021. Presents for 1 year 10 month post op visit. Weight at last visit on 03/11/2023 was 173.2 pounds with a BMI of 32.7, weight today is 160 pounds, representing a 13.2 pound weight loss with a BMI today of 30.2.? No complaints of nausea, emesis, abdominal pain or reflux, or constipation. She has started Mounjaro, no longer on Trulicity or Lantus. Present meal plan includes: 2 Celebrate shakes- one in morning, one at night, each with 2 scoop in 8oz unsweetened almond milk 1 Celebrate protein bar 1 small meal of 2 forkfuls protein (cannot tolerate more, makes her sick), plus veg All meals last 20 - 30 minutes and does not drink and eat at the same time. Exercise routine includes: walking on treadmill, upper body strength training 3 days a week for 60-90 minutes Pt reports problems of excess skin of abdomen and arms. Gets rashes in skin folds. Uses topical powders but these do not completely resolve the rashes. Excess skin of arms is heavy, uncomfortable. 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 Distal radius fracture, right HTN (hypertension) Chronic kidney disease Diabetes type 2, uncontrolled Surgical History History of surgery S/P fine needle aspiration S/P laparoscopic sleeve gastrectomy History of esophagogastroduodenoscopy (EGD) H/O colonoscopy Hx of biopsy History of partial hysterectomy History of total right knee replacement History of total left knee replacement (~2010) Hx of cholecystectomy History of section History of carpal tunnel release (~2017) Family History Father Hypertension Diabetes History of kidney cancer Mother Diabetes Hypertension Heart disease Brother Hypertension Diabetes Brother No problems noted. Son Hypertension Prediabetes Heart disease Daughter Prediabetes Social History Household Members: Spouse Are you a primary manager critical care to a significant other at home: No Do you presently have visiting nurse or other home services: Yes ([facility]NA) Alcohol intake: never Patient Tobacco Use Status: Never used Tobacco Physical Exam Vital Signs: BMI result Body Mass Index 30.2 Assessment & Plan Assessment & Plan (1) S/P laparoscopic sleeve gastrectomy: Comment: 08/22/21 Code(s): Z98.84 - Bariatric surgery status (2) Obese: Code(s): E66.9 - Obesity, unspecified Plan Pt will continue same meal plan for now. She has done well with increasing her protein and starting Mounjaro. Discussed losing 7-8 additional pounds prior to skin removal surgery. For now continue clotrimazole ointment. RTC in 2 months for 2 year visit. Patient is obese and is not considered stable at this time. I spent a total of 30 minutes reviewing/updating records, examining the patient and counseling the patient on weight management as detailed above. Telehealth Telehealth Location of provider rendering services: other Location of patient: address on file Patient Identification confirmed using: Name, : Yes Telehealth method: voice only Patient verbally consented to treatment: Yes Patient verbally consented to billing insurance company: Yes Patient informed of any privacy concerns related to visit: Yes Minutes spent on Phone/Video with Pt.: 20 Coding Level of Care Code Tele Est Pt Level 4 (81178) Diagnoses S/P laparoscopic sleeve gastrectomy Z98.84 Obese E66.9
[2023-06-17 13:55] VITALS: BMI 30.2
== END 2023-06-17 14:12 | disposition home or self-care (01) ==
LOC: HO.HBS 13:41
PROVIDERS: PCP Internal Medicine; Visit Provider Physician Assistant Surgical
DX: E66.9 Obesity, unspecified (principal); Z68.30 Body mass index [BMI] 30.0-30.9, adult; Z90.3 Acquired absence of stomach [part of]; Z98.84 Bariatric surgery status
CPT/HCPCS: 99442

== ENCOUNTER → 2023-06-17 13:41 | Outpatient (BNVA) | payer OTHER, SELFPAY | PROVIDERS: PCP Internal Medicine; Visit Provider Physician Assistant Surgical ==

== ENCOUNTER 2023-07-29 09:41 | Outpatient (REF) | payer OTHER, SELFPAY ==
[2023-07-29 11:18] LABS: Anion Gap 17 (12-20); Blood Urea Nitrogen 17 mg/dL (9-16); Calcium 9.9 mg/dL (8.4-10.2); Carbon Dioxide 24 mmol/L (22-29); Chloride 107 mmol/L (96-108); Estimated Glomerular Filt Rate 39; Glucose Random 169 mg/dL (60-115); Potassium 3.8 mmol/L (3.3-5.1); Sodium 144 mmol/L (135-145)
== END 2023-07-29 09:42 | disposition home or self-care (01) ==
LOC: HO.LAB 09:41
PROVIDERS: PCP Internal Medicine; Visit Provider Internal Medicine Nephrology
DX: E11.22 Type 2 diabetes mellitus with diabetic chronic kidney disease (principal); I12.9 Hypertensive chronic kidney disease with stage 1 through stage 4 chronic kidney disease, or unspecified chronic kidney disease; N18.32 Chronic kidney disease, stage 3b
CPT/HCPCS: 36415; 80048

== ENCOUNTER 2023-08-20 11:24 | Outpatient (REF) | payer OTHER, SELFPAY ==
[2023-08-20 13:33] LABS: Appearance Urine Clear; Color Urine Yellow; Glucose Urine UA Negative (Negative); Leukocyte Esterase Urine Small (1+) (Negative); Nitrite Urine Negative (Negative); PH 5.5 (5.0-9.0); UMIC TRIGGER UACC YES; Urine Blood Negative (Negative); Urine Ketones Negative (Negative); Urine Protein Negative (Neg-Trace)
[2023-08-20 13:53] LABS: Bacteria Urine None Seen (None Seen); Hyaline Casts Urine 0-2 /LPF (0-2); UACC Culture Trigger YES; WBC Urine 0-5 /HPF (0-5)
[2023-08-20 13:54] LABS: RBC Urine 0-2 /HPF (0-2)
[2023-08-20 14:08] LABS: Anion Gap 12 (12-20); Blood Urea Nitrogen 16 mg/dL (9-16); Calcium 9.9 mg/dL (8.4-10.2); Carbon Dioxide 29 mmol/L (22-29); Chloride 106 mmol/L (96-108); Estimated Glomerular Filt Rate 52; Glucose Random 91 mg/dL (60-115); Potassium 3.9 mmol/L (3.3-5.1); Sodium 143 mmol/L (135-145)
== END 2023-08-20 11:25 | disposition home or self-care (01) ==
LOC: HO.LAB 11:24
PROVIDERS: Visit Provider Internal Medicine Nephrology
DX: I12.9 Hypertensive chronic kidney disease with stage 1 through stage 4 chronic kidney disease, or unspecified chronic kidney disease (principal); N18.32 Chronic kidney disease, stage 3b; N10 Acute pyelonephritis
CPT/HCPCS: 36415; 80048; 81001; 87086

== ENCOUNTER 2023-08-21 10:39 | Outpatient (AMB) | payer OTHER, SELFPAY ==
--- NOTE | 2023-08-21 10:50 | MHC.OFFVISWM ---
Intake VS Expanded 08/21/23 10:59 BP 144/82 H Blood Pressure Location Rt brachial Blood Pressure Position Sitting Pulse 79 Pulse Source Pulse Oximeter Temp 97.5 F Temperature Source Temporal Artery Scan Pulse Oximetry 96 Oxygen Delivery Method Room Air Height 5 ft 1 in Weight 165 lb BMI 31.2 Body Fat % 32.8 Body Fat Mass 54.0 Fat Free Mass 110.8 Visceral Fat Rating 9.0 Body Water % 47.6 Body Water Mass 78.4 Muscle Mass/Score 105.4 Basal Metabolic Rate/Score 1,485 Intake Visit Reasons: (OV) PO LSG 08/22/21 Allergies latex [LATEX] Allergy (Mild, Verified 03/11/23 11:17) RASH metformin Adverse Reaction (Verified 03/11/23 11:17) Unknown Medication List - Last Reconciled 08/21/23 by MADAN Nelson amlodipine 10 mg PO DAILY blood sugar diagnostic (VectorMAXuch Ultra Test strips) As directed 3 times a day blood sugar diagnostic As directed blood-glucose meter (VectorMAXuch Ultra2 Meter) As directed clotrimazole 1% 1 appl topical BID diphenhydramine HCl (Benadryl) 25 mg PO TID PRN flash glucose scanning reader ([place] Teen Cam[employer]Style Jame 2 [place]) As directed flash glucose sensor (FreeStyle Jame 2 Sensor kit) USE DIRECTED TO TEST BLOOD SUGAR. CHANGE EVERY 10 DAYS fluoxetine 40 mg PO DAILY fluticasone propionate 50 mcg/actuation 1 spray intranasal DAILY PRN hydrocortisone 1% (Anti-Itch (hydrocortisone)) 1 appl topical BID PRN inulin (Fiber Gummies) 2 grams PO DAILY lancets As directed lorazepam 0 mg PO metoprolol tartrate 25 mg PO BID pen needle, diabetic (Comfort EZ Pen [place]) As directed injects once a day sennosides (senna) 8.6 mg PO DAILY tirzepatide (Mounjaro) 2.5 mg subcut QWEEK trazodone 50 - 150 mg PO BEDTIME PRN HPI HPI Comments History of Present Illness Details This?is a?63?yo female who is s/p LSG 08/22/2021. Presents for 2 year post op visit. Weight gain of 5lbs since last OV 2 months ago.? No complaints of nausea, emesis, abdominal pain or reflux, or constipation. Pt continues on Mounjaro prescribed by a weight management provider (Griffin Cuellar, [place]). Lantus was stopped. Blood sugars are better controlled now, pt has continuous glucose monitor. Present meal plan includes: 2 Celebrate shakes- one in morning, one at night, each with 2 scoop in 8oz unsweetened almond milk 1 Celebrate protein bar 1 small meal of 2 forkfuls protein (cannot tolerate more, makes her sick), plus veg All meals last 20 - 30 minutes and does not drink and eat at the same time. Exercise routine includes: walking on treadmill, upper body strength training 3 days a week for 60-90 minutes Pt reports problems of excess skin of abdomen and arms. Gets burning painful rashes in skin folds. Uses clotrimazole but this do not completely resolve the rashes. Has also been using a belt/binder to hold excess skin of abdomen in place. Excess skin of arms is heavy, uncomfortable. She gets chafing of upper arms due to skin rubbing against body and has to wear longer sleeves to prevent friction. 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 Distal radius fracture, right HTN (hypertension) Chronic kidney disease Diabetes type 2, uncontrolled Surgical History History of surgery S/P fine needle aspiration S/P laparoscopic sleeve gastrectomy History of esophagogastroduodenoscopy (EGD) H/O colonoscopy Hx of biopsy History of partial hysterectomy History of total right knee replacement History of total left knee replacement (~2010) Hx of cholecystectomy History of section History of carpal tunnel release (~2017) Family History Father Hypertension Diabetes History of kidney cancer Mother Diabetes Hypertension Heart disease Brother Hypertension Diabetes Brother No problems noted. Son Hypertension Prediabetes Heart disease Daughter Prediabetes Social History Household Members: Spouse Are you a primary physician locums urgent care to a significant other at home: No Do you presently have visiting nurse or other home services: Yes ([facility]NA) Alcohol intake: never Patient Tobacco Use Status: Never used Tobacco Physical Exam Vital Signs: Last Vital Signs Temp 97.5 F 08/21/23 10:59 Pulse 79 08/21/23 10:59 BP 144/82 H 08/21/23 10:59 Pulse Ox 96 08/21/23 10:59 Oxygen Delivery Method Room Air 08/21/23 10:59 BMI result Body Mass Index 31.2 Const General: cooperative, comfortable and no acute distress Orientation/consciousness: patient oriented x3 GI Other: soft, nontender, nondistended, incisions well healed, no hernia, no masses Skin Other: Grade II pannus with evidence of previous open areas/skin breakdown, multiple folds of abdomen Neuro General: patient oriented x3 Assessment & Plan Assessment & Plan (1) S/P laparoscopic sleeve gastrectomy: Comment: 08/22/21 Code(s): Z98.84 - Bariatric surgery status (2) Obese: Code(s): E66.9 - Obesity, unspecified (3) Diabetes mellitus: Code(s): E11.9 - Type 2 diabetes mellitus without complications (4) Excess skin: Code(s): L98.7 - Excessive and redundant skin and subcutaneous tissue Plan Short term goal weight 158lbs to qualify for skin removal surgery with BMI<30. On review of [place] pt is experiencing some fluid retention today compared to last weight. Labs ordered. Continue meal plan as is. Continue clotrimazole ointment for rashes of excess skin. RTC 3 months. Patient is obese and is not considered stable at this time. I spent a total of 30 minutes reviewing/updating records, examining the patient and counseling the patient on weight management as detailed above. Orders: Orders Complete Blood Count Auto Diff Today Z98.84 - Bariatric surgery status Vitamin B12 and Folate Today Z98.84 - Bariatric surgery status Zinc Today Z98.84 - Bariatric surgery status C Reactive Protein Today Z98.84 - Bariatric surgery status Vitamin B1 Today Z98.84 - Bariatric surgery status TSH reflex Free T4 Today Z98.84 - Bariatric surgery status Ferritin Today Z98.84 - Bariatric surgery status Insulin Today Z98.84 - Bariatric surgery status Hemoglobin A1c Today Z98.84 - Bariatric surgery status Lipid Panel Today Z98.84 - Bariatric surgery status IRON PROFILE Today Z98.84 - Bariatric surgery status Comprehensive Met. Panel Today Z98.84 - Bariatric surgery status Vitamin A Today Z98.84 - Bariatric surgery status Vitamin D 25-OH Total Today Z98.84 - Bariatric surgery status Coding Level of Care Code Est Pt Level 4 (67050) Diagnoses S/P laparoscopic sleeve gastrectomy Z98.84 Obese E66.9 Diabetes mellitus E11.9 Excess skin L98.7
[2023-08-21 10:59] VITALS: BP 144/82; PULSE 79; TEMP 36.4; O2SAT 96; BMI 31.2
== END 2023-08-21 11:45 | disposition home or self-care (01) ==
PROVIDERS: PCP Internal Medicine; Visit Provider Physician Assistant Surgical
DX: E66.9 Obesity, unspecified (principal); Z68.31 Body mass index [BMI] 31.0-31.9, adult; E11.9 Type 2 diabetes mellitus without complications; L98.7 Excessive and redundant skin and subcutaneous tissue
CPT/HCPCS: 99214

== ENCOUNTER → 2023-08-21 10:39 | Outpatient (BNVA) | payer OTHER, SELFPAY | PROVIDERS: PCP Internal Medicine; Visit Provider Physician Assistant Surgical | DX: E66.9 Obesity, unspecified (principal); L98.7 Excessive and redundant skin and subcutaneous tissue; E11.9 Type 2 diabetes mellitus without complications; Z90.3 Acquired absence of stomach [part of]; Z68.31 Body mass index [BMI] 31.0-31.9, adult | CPT/HCPCS: 99212 ==

== ENCOUNTER 2023-09-04 13:27 | Emergency (ER) | payer OTHER, SELFPAY ==
[2023-09-04 13:46] VITALS: BP 151/91; PULSE 85; RESP 18; TEMP 36.9; O2SAT 98; BMI 32.0
--- NOTE | 2023-09-04 13:46 | ED.NECK ---
HPI - Neck Pain/Injury General Chief Complaint: Neck Pain/Injury Stated Complaint: neck pain Time Seen by Provider: 09/04/23 14:09 Related Data Home Medications ?Medication ?Instructions ?Recorded ?Confirmed amlodipine 10 mg tablet 10 mg PO DAILY 02/05/20 08/21/23 fluticasone propionate 50 1 spray intranasal DAILY PRN nasal 07/19/20 08/21/23 mcg/actuation nasal congestion spray,suspension metoprolol tartrate 25 mg tablet 25 mg PO BID 05/08/22 08/21/23 blood sugar diagnostic 08/29/22 08/21/23 blood-glucose meter (OneTouch #1 ea 08/29/22 08/21/23 Ultra2 Meter) fluoxetine 40 mg capsule 40 mg PO DAILY 08/29/22 08/21/23 lorazepam 0.5 mg tablet 0 mg PO 08/29/22 08/21/23 trazodone 50 mg tablet 50 - 150 mg PO BEDTIME PRN 08/29/22 08/21/23 tirzepatide 2.5 mg/0.5 mL 2.5 mg subcut QWEEK 06/17/23 08/21/23 subcutaneous pen injector (Negni) Previous Rx's ?Medication ?Instructions ?Recorded lancets #100 ea 08/20/22 clotrimazole 1 % topical cream 1 appl topical BID #45 grams 08/23/22 pen needle, diabetic 32 gauge x #30 ea 08/30/2209/17 (Comfort EZ Pen [place]) blood sugar diagnostic (OneTouch #100 ea 09/16/22 Ultra Test strips) flash glucose scanning reader #1 ea 09/24/22 (FreeStyle Jame 2 [place]) inulin 2 gram chewable tablet 2 g PO DAILY #30 tabs 12/03/22 (Fiber Gummies) sennosides 8.6 mg tablet (senna) 8.6 mg PO DAILY #90 tabs 12/03/22 diphenhydramine HCl 25 mg capsule 25 mg PO TID PRN allergic reaction 12/24/22 (Benadryl) #14 caps hydrocortisone 1 % topical cream 1 appl topical BID PRN rash #28.35 12/24/22 (Anti-Itch (hydrocortisone)) grams flash glucose sensor (Perk Dynamicsyle #2 ea 02/20/23 Jame 2 Sensor kit) Allergies Allergy/AdvReac Type Severity Reaction Status Date / Time latex [LATEX] Allergy Mild RASH Verified 09/04/23 13:50 metformin AdvReac Unknown Verified 09/04/23 13:50 [facility] Past Medical History Medical History Anxiety Depression GERD (gastroesophageal reflux disease) COVID-19 vaccine series completed Tachycardia Toxic multinodul goiter Chronic renal insufficiency Nephrolithiasis Cyst, kidney, acquired Diabetic neuropathy BMI 34.0-34.9,adult BMI 35.0-35.9,adult BMI 36.0-36.9,adult Pre-op evaluation B12 deficiency Obesity (BMI 30-39.9) Non-toxic multinodular goiter Dyslipidemia Diabetic 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 with type 2 diabetes mellitus [facility]PC (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 insulin Distal radius fracture, right HTN (hypertension) Chronic kidney disease Diabetes type 2, uncontrolled Surgical History History of surgery S/P fine needle aspiration S/P laparoscopic sleeve gastrectomy History of esophagogastroduodenoscopy (EGD) H/O colonoscopy Hx of biopsy History of partial hysterectomy History of total right knee replacement History of total left knee replacement (~2010) Hx of cholecystectomy History of section History of carpal tunnel release (~2017) Family History Family History Father Hypertension Diabetes History of kidney cancer Mother Diabetes Hypertension Heart disease Brother Hypertension Diabetes Brother No problems noted. Son Hypertension Prediabetes Heart disease Daughter Prediabetes Social History Social History Household Members: Spouse Are you a primary manager care management to a significant other at home: No Do you presently have visiting nurse or other home services: Yes ([facility]NA) Alcohol intake: never Patient Tobacco Use Status: Never used Tobacco Advance Directives: No Advance Directives Information Provided: Yes Physical Exam Vital Signs: Vital Signs: Last Vital Signs Temp 98.2 F 09/04/23 14:05 Pulse 80 09/04/23 14:05 Resp 18 09/04/23 14:05 BP 148/86 H 09/04/23 14:05 Pulse Ox 98 09/04/23 14:05 O2 Del Method Room Air 09/04/23 14:05 BMI result Body Mass Index 32.0 Course Course Course Narrative: This is a rapid medical exam completed by [facility]: Additional HPI, ROS, PE not included below will be deferred to primary provider. Right sided neck pain radiating into head and shoulder for the past 3 days. Has used OTC medications with no relief of symptoms. States she woke up with the pain and denies any trauma or overuse injury. Reports paresthesias in bilateral hands. Denies fevers but reports chills. States that she has known thyroid nodules that she used to have drained when she lived in [place] Plan: CT cspine Discharge Plan Discharge Clinical Impression: Neck pain, Neck nodule Patient Disposition: Left W/O Completing Treatment Prescriptions: No Action (DME) pen needle, diabetic [Comfort EZ Pen [place]] 32 gauge x 5/16 needle See Rx Instructions .Route Qty: 30 5RF Rx Instructions: As directed injects once a day (DME) OneTouch Ultra Test Strip See Rx Instructions .Route Qty: 100 4RF Rx Instructions: As directed 3 times a day (DME) [facility] See Rx Instructions .Route Qty: 1 0RF Rx Instructions: As directed (DME) FreeStyle Jame 2 Sensor Kit See Rx Instructions .ROUTE .COMPLEX Qty: 2 2RF Dose Instruction: USE DIRECTED TO TEST BLOOD SUGAR. CHANGE EVERY 10 DAYS Rx Instructions: USE DIRECTED TO TEST BLOOD SUGAR. CHANGE EVERY 10 DAYS (DME) lancets Misc See Rx Instructions .Route Qty: 100 0RF Rx Instructions: As directed hydrocortisone [Anti-Itch (HC)] 1 % cream 1 appl topical BID PRN (Reason: rash) Qty: 28.35 0RF diphenhydramine HCl [Benadryl] 25 mg capsule 25 mg PO TID PRN (Reason: allergic reaction) Qty: 14 0RF amlodipine 10 mg tablet 10 mg PO DAILY fluticasone propionate 50 mcg/actuation spray,suspension 1 spray intranasal DAILY PRN (Reason: nasal congestion) metoprolol tartrate 25 mg tablet 25 mg PO BID clotrimazole 1 % cream 1 appl topical BID Qty: 45 3RF sennosides [senna] 8.6 mg tablet 8.6 mg PO DAILY Qty: 90 1RF Fiber Gummies 2 gram tablet,chewable 2 g PO DAILY Qty: 30 3RF (DME) blood-glucose meter [OneTouch Ultra2 Meter] Misc See Rx Instructions .ROUTE DIRECTED Qty: 1 Rx Instructions: As directed (DME) blood sugar diagnostic Strip See Rx Instructions .Route Rx Instructions: As directed trazodone 50 mg tablet 50 - 150 mg PO BEDTIME PRN lorazepam 0.5 mg tablet 0 mg PO fluoxetine 40 mg capsule 40 mg PO DAILY Mounjaro 2.5 mg/0.5 mL pen injector 2.5 mg subcut QWEEK Discharge Date/Time: 09/04/23 16:46
[2023-09-04 14:05] VITALS: BP 148/86; PULSE 80; RESP 18; TEMP 36.8; O2SAT 98
--- NOTE | 2023-09-04 14:20 | ED.NECK ---
HPI - Neck Pain/Injury General Chief Complaint: Neck Pain/Injury Stated Complaint: neck pain Time Seen by Provider: 09/04/23 14:09 Source: patient Mode of arrival: ambulatory Limitations: no limitations History of Present Illness HPI Narrative: patient comes to the emergency room complaining of right-sided discomfort, palpable nodules per patient. Patient states that now she has mild numbness tingling with no loss of motor function. Related Data Home Medications ?Medication ?Instructions ?Recorded ?Confirmed amlodipine 10 mg tablet 10 mg PO DAILY 02/05/20 08/21/23 fluticasone propionate 50 1 spray intranasal DAILY PRN nasal 07/19/20 08/21/23 mcg/actuation nasal congestion spray,suspension metoprolol tartrate 25 mg tablet 25 mg PO BID 05/08/22 08/21/23 blood sugar diagnostic 08/29/22 08/21/23 blood-glucose meter (OneTouch #1 ea 08/29/22 08/21/23 Ultra2 Meter) fluoxetine 40 mg capsule 40 mg PO DAILY 08/29/22 08/21/23 lorazepam 0.5 mg tablet 0 mg PO 08/29/22 08/21/23 trazodone 50 mg tablet 50 - 150 mg PO BEDTIME PRN 08/29/22 08/21/23 tirzepatide 2.5 mg/0.5 mL 2.5 mg subcut QWEEK 06/17/23 08/21/23 subcutaneous pen injector (Negin) Previous Rx's ?Medication ?Instructions ?Recorded lancets #100 ea 08/20/22 clotrimazole 1 % topical cream 1 appl topical BID #45 grams 08/23/22 pen needle, diabetic 32 gauge x #30 ea 08/30/22 5/16 (Comfort EZ Pen [place]) blood sugar diagnostic (OneTouch #100 ea 09/16/22 Ultra Test strips) flash glucose scanning reader #1 ea 09/24/22 (FreeStyle Jame 2 [place]) inulin 2 gram chewable tablet 2 g PO DAILY #30 tabs 12/03/22 (Fiber Gummies) sennosides 8.6 mg tablet (senna) 8.6 mg PO DAILY #90 tabs 12/03/22 diphenhydramine HCl 25 mg capsule 25 mg PO TID PRN allergic reaction 12/24/22 (Benadryl) #14 caps hydrocortisone 1 % topical cream 1 appl topical BID PRN rash #28.35 12/24/22 (Anti-Itch (hydrocortisone)) grams flash glucose sensor (FreeStyle #2 ea 02/20/23 Jame 2 Sensor kit) Allergies Allergy/AdvReac Type Severity Reaction Status Date / Time latex [LATEX] Allergy Mild RASH Verified 09/04/23 13:50 metformin AdvReac Unknown Verified 09/04/23 13:50 Review of Systems Review of Systems: Constitutional : No Weight loss, No Fever, No Chills, No Night Sweats, No Fatigue, No Malaise ENT/Mouth : No Hearing loss, No Ear Pain, No Nasal Congestion, No Sinus Pain, No Hoarseness, No sore throat, No Rhinorrhea, No Swallowing Difficulty Eyes: No Eye Pain, No Swelling, No Redness, No Foreign Body, No Discharge, No Vision Changes Cardiovascular : No Chest Pain, No SOB, No Dyspnea on Exertion, No Orthopnea, No Edema, No Palpitations Respiratory : No Cough, No Sputum, No Wheezing, No Smoke Exposure, No Dyspnea Gastrointestinal : No Nausea, No Vomiting, No Diarrhea, No Constipation, No abdominal Pain, No Hematochezia, No Melena Genitourinary : no irregular bleeding, No Dysuria, No Urinary Frequency, No Hematuria, No Urinary Incontinence, No Urgency, No Flank Pain, No Urinary Flow Changes, No Hesitancy Musculoskeletal : No joint pain, No Myalgias, No Joint Swelling Skin : No Skin Lesions, No rash Neuro : No Weakness, No Numbness, Complaining of Paresthesias right-sided numbness tingling in the fingers of the, No Loss of Consciousness, No Dizziness, No Headache Psych : No Anxiety/Panic, No Depression, No SI/HI/AH/VH, No Social Issues, Heme/Lymph: No Bruising, No Bleeding,No Lymphadenopathy Endocrine : No Polyuria, No Polydipsia, No Temperature Intolerance PMFSH Past Medical History Medical History Anxiety Depression GERD (gastroesophageal reflux disease) COVID-19 vaccine series completed Tachycardia Toxic multinodul goiter Chronic renal insufficiency Nephrolithiasis Cyst, kidney, acquired Diabetic neuropathy BMI 34.0-34.9,adult BMI 35.0-35.9,adult BMI 36.0-36.9,adult Pre-op evaluation B12 deficiency Obesity (BMI 30-39.9) Non-toxic multinodular goiter Dyslipidemia Diabetic 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 with type 2 diabetes mellitus senior care (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 insulin Distal radius fracture, right HTN (hypertension) Chronic kidney disease Diabetes type 2, uncontrolled Surgical History History of surgery S/P fine needle aspiration S/P laparoscopic sleeve gastrectomy History of esophagogastroduodenoscopy (EGD) H/O colonoscopy Hx of biopsy History of partial hysterectomy History of total right knee replacement History of total left knee replacement (~2010) Hx of cholecystectomy History of section History of carpal tunnel release (~2018) Family History Family History Father Hypertension Diabetes History of kidney cancer Mother Diabetes Hypertension Heart disease Brother Hypertension Diabetes Brother No problems noted. Son Hypertension Prediabetes Heart disease Daughter Prediabetes Social History Social History Household Members: Spouse Are you a primary director long term care to a significant other at home: No Do you presently have visiting nurse or other home services: Yes ([facility]) Alcohol intake: never Patient Tobacco Use Status: Never used Tobacco Advance Directives: No Advance Directives Information Provided: Yes Physical Exam Vital Signs: Vital Signs: Last Vital Signs Temp 98.2 F 09/04/23 14:05 Pulse 80 09/04/23 14:05 Resp 18 09/04/23 14:05 BP 148/86 H 09/04/23 14:05 Pulse Ox 98 09/04/23 14:05 O2 Del Method Room Air 09/04/23 14:05 BMI result Body Mass Index 32.0 Const: Other: Appearance: Alert. Oriented X3. No acute distress. Eyes: Pupils equal, round and reactive to light. ENT: Pharynx normal. Neck: Normal inspection. Neck supple. small palpable nodule in the posterior aspect of the right side of the neck, No crepitus CVS: Normal heart rate and rhythm. Pulses normal. Normal S1 and S2 Respiratory: No respiratory distress. Breath sounds normal. No Wheezing. No rales Abdomen: Soft and nontender. No rigidity. No distention. Skin: Skin warm and dry. Normal skin color. Normal skin turgor. Extremities: No lower extremity edema. No Lacerations. No Rash Neuro: Oriented X 3. No motor deficit. No sensory deficit. Moving all extremities. No slurred speech. CN 2 through 12 grossly intact Psych: calm, cooperative, normal affect Course Course Course Narrative: - CT scan of the soft tissue of the neck pending Medical Decision Making Medical Decision Making MDM Narrative: - I was informed by the patient's nurse that the patient left. Patient did not want to wait for the CT scan to get done. Patient walked out Differential Diagnosis Differential Diagnoses: The differential diagnosis associated with the presentation includes ( dysphagia, thyroid tumors) Discharge Plan Discharge Clinical Impression: Neck pain, Neck nodule Patient Disposition: Left W/O Completing Treatment Prescriptions: No Action (DME) pen needle, diabetic [Comfort EZ Pen [place]] 32 gauge x 5/16 needle See Rx Instructions .Route Qty: 30 5RF Rx Instructions: As directed injects once a day (DME) OneTouch Ultra Test Strip See Rx Instructions .Route Qty: 100 4RF Rx Instructions: As directed 3 times a day (DME) FreeStyle Jame 2 [place] Misc See Rx Instructions .Route Qty: 1 0RF Rx Instructions: As directed (DME) FreeStyle Jame 2 Sensor Kit See Rx Instructions .ROUTE .COMPLEX Qty: 2 2RF Dose Instruction: USE DIRECTED TO TEST BLOOD SUGAR. CHANGE EVERY 10 DAYS Rx Instructions: USE DIRECTED TO TEST BLOOD SUGAR. CHANGE EVERY 10 DAYS (DME) lancets Misc See Rx Instructions .Route Qty: 100 0RF Rx Instructions: As directed hydrocortisone [Anti-Itch (HC)] 1 % cream 1 appl topical BID PRN (Reason: rash) Qty: 28.35 0RF diphenhydramine HCl [Benadryl] 25 mg capsule 25 mg PO TID PRN (Reason: allergic reaction) Qty: 14 0RF amlodipine 10 mg tablet 10 mg PO DAILY fluticasone propionate 50 mcg/actuation spray,suspension 1 spray intranasal DAILY PRN (Reason: nasal congestion) metoprolol tartrate 25 mg tablet 25 mg PO BID clotrimazole 1 % cream 1 appl topical BID Qty: 45 3RF sennosides [senna] 8.6 mg tablet 8.6 mg PO DAILY Qty: 90 1RF Fiber Gummies 2 gram tablet,chewable 2 g PO DAILY Qty: 30 3RF (DME) blood-glucose meter [OneTouch Ultra2 Meter] Misc See Rx Instructions .ROUTE DIRECTED Qty: 1 Rx Instructions: As directed (DME) blood sugar diagnostic Strip See Rx Instructions .Route Rx Instructions: As directed trazodone 50 mg tablet 50 - 150 mg PO BEDTIME PRN lorazepam 0.5 mg tablet 0 mg PO fluoxetine 40 mg capsule 40 mg PO DAILY Mounjaro 2.5 mg/0.5 mL pen injector 2.5 mg subcut QWEEK Print Language: [place] Islander
--- NOTE | 2023-09-04 15:33 | PC.NURSE ---
standing in hallway asking when they will be going for CT scan, upset about the length of time it has taken to receive scan. CT scan over to bring patient in and patient was no longer in room. patient not seen in the bathroom.
== END 2023-09-04 16:46 | disposition left against medical advice (07) ==
PROVIDERS: Emergency Provider Emergency Medicine; PCP Internal Medicine
DX: M54.2 Cervicalgia (principal)
CPT/HCPCS: 99281; 99282

== ENCOUNTER 2023-10-21 11:16 | Outpatient (REF) | payer OTHER, SELFPAY ==
[2023-10-21 13:03] LABS: MANUAL DIFF FLAG NO
[2023-10-21 13:28] LABS: Basophils Absolute Auto 0.1 X10*3/uL (0.0-0.2); Basophils Percent Auto 0.7 % (0-2); Eosinophils Absolute Auto 0.4 X10*3/uL (0.0-0.4); Hematocrit 46.2 % (37.0-47.0); Hemoglobin 14.9 g/dl (12.0-16.0); Imm Gran Abs Auto 0.04 X10*3/uL (0.00-0.03); Imm Gran Pct Auto 0.4 % (0.0-0.4); Lymphocytes Absolute Auto 2.3 X10*3/uL (1.2-4.9); Lymphocytes Percent Auto 25.4 % (20-40); Mean Corpuscular HGB Conc 32.3 g/dl (31.0-35.0); Mean Corpuscular Hemoglobin 27.7 pg (27.0-33.0); Mean Platelet Volume 11.9 fL (9.4-12.3); Monocytes Percent Auto 11.1 % (2-11); Neutrophils Absolute Auto 5.2 x10*3/uL (2.0-8.3); Neutrophils Percent Auto 58.4 % (45-73); Platelet Count 263 X10*3/uL (160-400); Red Blood Count 5.37 X10*6/uL (4.20-5.50); Red Cell Distribution Width 13.3 % (11.0-16.0); White Blood Count 8.9 X10*3/uL (4.8-10.8)
[2023-10-21 13:47] LABS: Alanine Aminotransferase 9 U/L (0-31); Albumin Level 4.6 g/dL (3.5-5.0); Alkaline Phosphatase 99 U/L (39-117); Anion Gap 13 (12-20); Aspartate Amino Transferase 12 U/L (5-31); Bilirubin Total 0.6 mg/dL (0.0-1.0); Blood Urea Nitrogen 16 mg/dL (9-16); C Reactive Protein 0.31 mg/dL (< or = 0.50); Calcium 9.8 mg/dL (8.4-10.2); Carbon Dioxide 30 mmol/L (22-29); Chloride 105 mmol/L (96-108); Cholesterol 258 mg/dL (<200); Estimated Glomerular Filt Rate 40; Glucose Random 106 mg/dL (60-115); HDL Cholesterol 44 mg/dL (>40); Iron 79 mcg/dL (30-160); LDL Cholesterol Calculated 158 mg/dL (<100); Percent Iron Saturation 22 % (15-50); Potassium 3.9 mmol/L (3.3-5.1); Sodium 144 mmol/L (135-145); Total Iron Binding Capacity 358 mcg/dL (228-428); Total Protein 8.2 g/dL (6.5-8.0); Triglycerides 280 mg/dL (<150); Unsaturated Iron Binding 279 ug/dL
[2023-10-21 14:04] LABS: Estimated Average Glucose 140 mg/dL; Hemoglobin A1c % 6.5 % (<6.0)
[2023-10-21 14:11] LABS: Ferritin 72 ng/mL (10-250); TSH reflex Free T4 0.41 uIU/mL (0.32-4.0)
[2023-10-21 14:15] LABS: Vitamin B12 > 2000 pg/mL (200-900)
[2023-10-21 14:59] LABS: Insulin 10 uU/mL (2-29)
[2023-10-23 18:58] LABS: Zinc 93 mcg/dL (60-130)
[2023-10-25 11:14] LABS: Vitamin A 102 mcg/dL (38-98)
[2023-10-26 11:49] LABS: Vitamin B1 8 nmol/L (8-30)
== END 2023-10-21 11:17 | disposition home or self-care (01) ==
LOC: HO.HHCL 11:16
PROVIDERS: Visit Provider Physician Assistant Surgical
DX: Z98.84 Bariatric surgery status (principal); Z13.1 Encounter for screening for diabetes mellitus; Z13.220 Encounter for screening for lipoid disorders; Z13.89 Encounter for screening for other disorder; Z13.29 Encounter for screening for other suspected endocrine disorder
CPT/HCPCS: 36415; 80053; 80061; 82306; 82607; 82728; 82746; 83036; 83525; 83540; 84425; 84443; 84590; 84630; 85025; 86140

== ENCOUNTER 2023-11-04 14:03 | Outpatient (AMB) | payer OTHER, SELFPAY ==
--- NOTE | 2023-11-04 14:07 | A.OFFVIS_ITS ---
VS Expanded 11/04/23 14:16 BP 145/79 H Blood Pressure Location Rt brachial Blood Pressure Position Sitting Pulse 79 Pulse Source Pulse Oximeter Temp 97.4 F Temperature Source Temporal Artery Scan Pulse Oximetry 98 Oxygen Delivery Method Room Air Height 5 ft 1 in Weight 162 lb BMI 30.6 Body Fat % 30.4 Body Fat Mass 49.2 Fat Free Mass 112.6 Visceral Fat Rating 8.0 Body Water % 49.3 Body Water Mass 79.8 Muscle Mass/Score 107.0 Basal Metabolic Rate/Score 1,498 Intake Visit Reasons: OV PO LSG 08/22/21 Allergies latex [LATEX] Allergy (Mild, Verified 11/04/23 14:12) RASH metformin Adverse Reaction (Verified 11/04/23 14:12) Unknown Medication List - Last Reconciled 11/04/23 by MADAN Nelson amlodipine 10 mg PO DAILY blood sugar diagnostic (Soft [place]uch Ultra Test strips) As directed 3 times a day blood sugar diagnostic As directed blood-glucose meter (Soft [place] Ultra2 Meter) As directed clotrimazole 1% 1 appl topical BID diphenhydramine HCl (Benadryl) 25 mg PO TID PRN flash glucose scanning reader (Hart InterCivicStyle Jame 2 [place]) As directed flash glucose sensor (FreeStyle Jame 2 Sensor kit) USE DIRECTED TO TEST BLOOD SUGAR. CHANGE EVERY 10 DAYS fluoxetine 40 mg PO DAILY fluticasone propionate 50 mcg/actuation 1 spray intranasal DAILY PRN hydrocortisone 1% (Anti-Itch (hydrocortisone)) 1 appl topical BID PRN inulin (Fiber Gummies) 2 grams PO DAILY lancets As directed lorazepam 0 mg PO metoprolol tartrate 25 mg PO BID pen needle, diabetic (Comfort EZ Pen [place]) As directed injects once a day sennosides (senna) 8.6 mg PO DAILY tirzepatide (Mounjaro) 2.5 mg subcut QWEEK trazodone 50 - 150 mg PO BEDTIME PRN HPI Comments Details: This?is a?63?yo female who is s/p LSG 08/22/2021. Presents for 2 year 3 monthpost op visit. Weight loss of 3lbs since last OV 3 months ago.? No complaints of nausea, emesis, abdominal pain or reflux, or constipation. Pt continues on Mounjaro prescribed by a weight management provider (Griffin Cuellar NP). Lantus was stopped. Blood sugars are better controlled now, pt has continuous glucose monitor. Pt reports A1C is down to 5. Present meal plan includes: 2 Celebrate shakes- one in morning, one at night, each with 2 scoop in 8oz unsweetened almond milk 1 Celebrate protein bar 1 small meal of 2 forkfuls protein (cannot tolerate more, makes her sick), plus veg sometimes difficulty with meats (gets a stuck feeling) but tolerates eggs, yogurt without difficulty Exercise routine includes: walking on treadmill, upper body strength training 3 days a week for 60-90 minutes Pt reports problems of excess skin of abdomen and arms. Gets burning painful rashes in skin folds. Uses clotrimazole but this do not completely resolve the rashes. Has also been using a belt/binder to hold excess skin of abdomen in place. Excess skin of arms is heavy, uncomfortable. She gets chafing of upper arms due to skin rubbing against body and has to wear longer sleeves to prevent friction. [facility] Medical History Anxiety Depression GERD (gastroesophageal reflux disease) COVID-19 vaccine series completed Tachycardia Toxic multinodul goiter Chronic renal insufficiency Nephrolithiasis Cyst, kidney, acquired Diabetic neuropathy BMI 34.0-34.9,adult BMI 35.0-35.9,adult BMI 36.0-36.9,adult Pre-op evaluation B12 deficiency Obesity (BMI 30-39.9) Non-toxic multinodular goiter Dyslipidemia Diabetic 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 with type 2 diabetes mellitus half-way (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 insulin Distal radius fracture, right HTN (hypertension) Chronic kidney disease Diabetes type 2, uncontrolled Surgical History History of surgery S/P fine needle aspiration S/P laparoscopic sleeve gastrectomy History of esophagogastroduodenoscopy (EGD) H/O colonoscopy Hx of biopsy History of partial hysterectomy History of total right knee replacement History of total left knee replacement (~2010) Hx of cholecystectomy History of section History of carpal tunnel release (~2017) Family History Father Hypertension Diabetes History of kidney cancer Mother Diabetes Hypertension Heart disease Brother Hypertension Diabetes Brother No problems noted. Son Hypertension Prediabetes Heart disease Daughter Prediabetes Social History Household Members: Spouse Are you a primary care aid to a significant other at home: No Do you presently have visiting nurse or other home services: Yes ([facility]NA) Alcohol intake: never Patient Tobacco Use Status: Never used Tobacco Assessment & Plan Assessment & Plan (1) Excess skin: Code(s): L98.7 - Excessive and redundant skin and subcutaneous tissue Category: Medical (2) Diabetes mellitus: Code(s): E11.9 - Type 2 diabetes mellitus without complications Category: Medical (3) S/P laparoscopic sleeve gastrectomy: Comment: 08/22/21 Code(s): Z98.84 - Bariatric surgery status Category: Surgical (4) Obese: Code(s): E66.9 - Obesity, unspecified Category: Medical Plan Short term goal weight 157lbs to qualify for skin removal surgery with BMI<30. Reviewed [place], pt has healthy body fat % and high muscle mass. Continue meal plan as is. Continue clotrimazole ointment for rashes of excess skin. Pt may consider referral to another provider if she has difficulty reaching our BMI goal, however she would like to remain with us for now and work on additional weight loss through increased cardio. RTC 3 months. Patient is obese and is not considered stable at this time. I spent a total of 30 minutes reviewing/updating records, examining the patient and counseling the patient on weight management as detailed above.
[2023-11-04 14:16] VITALS: BP 145/79; PULSE 79; TEMP 36.3; O2SAT 98; BMI 30.6
== END 2023-11-04 14:44 | disposition home or self-care (01) ==
PROVIDERS: PCP Internal Medicine; Visit Provider Physician Assistant Surgical
DX: L98.7 Excessive and redundant skin and subcutaneous tissue (principal); E11.9 Type 2 diabetes mellitus without complications; Z98.84 Bariatric surgery status; E66.9 Obesity, unspecified
CPT/HCPCS: 99214

== ENCOUNTER → 2023-11-04 14:03 | Outpatient (BNVA) | payer OTHER, SELFPAY | PROVIDERS: PCP Internal Medicine; Visit Provider Physician Assistant Surgical | DX: E66.9 Obesity, unspecified (principal); L98.7 Excessive and redundant skin and subcutaneous tissue; E11.9 Type 2 diabetes mellitus without complications; Z98.84 Bariatric surgery status; Z68.30 Body mass index [BMI] 30.0-30.9, adult | CPT/HCPCS: 99212 ==

== ENCOUNTER 2023-11-07 16:06 | Outpatient (REF) | payer OTHER, SELFPAY ==
--- NOTE | ~2023-11-07 | XR_ITS ---
EXAMINATION: XR KNEE, LEFT CLINICAL INFORMATION: History of left knee arthroplasty, pain COMPARISON: 12/05/2019 TECHNIQUE: Two views of the left knee. FINDINGS: There is no acute fracture. There is well-positioned prosthesis in the tibial component. The femoral components revealed lucency surrounding the prosthetic component not seen on the previous examination and there is diffuse osteopenia. There is no joint effusion. XR/XR knee LT 2V IMPRESSION: Questionable loosening surrounding components of the total knee prosthesis in the femur. Diffuse osteopenia
== END 2023-11-07 16:07 | disposition home or self-care (01) ==
LOC: HO.HHCX 16:06
PROVIDERS: Visit Provider Internal Medicine
DX: M25.562 Pain in left knee (principal)
CPT/HCPCS: 73560

== ENCOUNTER 2023-11-07 16:29 | Outpatient (REF) | payer OTHER, SELFPAY ==
[2023-11-07 17:04] LABS: MANUAL DIFF FLAG NO
[2023-11-07 17:23] LABS: C Reactive Protein 0.34 mg/dL (< or = 0.50)
[2023-11-07 17:34] LABS: Basophils Absolute Auto 0.1 X10*3/uL (0.0-0.2); Basophils Percent Auto 0.8 % (0-2); Eosinophils Absolute Auto 0.3 X10*3/uL (0.0-0.4); Eosinophils Percent Auto 3.9 % (0-4); Hematocrit 43.4 % (37.0-47.0); Imm Gran Abs Auto 0.04 X10*3/uL (0.00-0.03); Imm Gran Pct Auto 0.5 % (0.0-0.4); Lymphocytes Absolute Auto 2.6 X10*3/uL (1.2-4.9); Lymphocytes Percent Auto 29.9 % (20-40); Mean Corpuscular HGB Conc 32.3 g/dl (31.0-35.0); Mean Corpuscular Hemoglobin 27.6 pg (27.0-33.0); Mean Corpuscular Volume 85.4 fL (80.0-98.0); Mean Platelet Volume 12.2 fL (9.4-12.3); Monocytes Absolute Auto 0.9 X10*3/uL (0.1-1.2); Neutrophils Absolute Auto 4.6 x10*3/uL (2.0-8.3); Neutrophils Percent Auto 53.9 % (45-73); Platelet Count 234 X10*3/uL (160-400); Red Blood Count 5.08 X10*6/uL (4.20-5.50); Red Cell Distribution Width 13.4 % (11.0-16.0); White Blood Count 8.6 X10*3/uL (4.8-10.8)
[2023-11-07 18:51] LABS: Erythrocyte Sedimentation Rate 6 MM/HR (0-20)
== END 2023-11-07 16:30 | disposition home or self-care (01) ==
LOC: HO.HHCL 16:29
PROVIDERS: Visit Provider Internal Medicine
DX: M25.562 Pain in left knee (principal)
CPT/HCPCS: 36415; 85025; 85652; 86140

== ENCOUNTER 2023-12-05 12:25 | Outpatient (RCR) | payer OTHER, SELFPAY | END 2023-12-25 09:50 | disposition home or self-care (01) | LOC: HO.PT 12:25 | PROVIDERS: PCP Internal Medicine; Visit Provider Internal Medicine | DX: M54.41 Lumbago with sciatica, right side (principal) | CPT/HCPCS: 97110; 97162; 97535 ==

== ENCOUNTER 2024-01-04 14:05 | Emergency (ER) | payer OTHER, SELFPAY ==
--- NOTE | ~2024-01-04 | XR_ITS ---
EXAMINATION: XR CHEST CLINICAL INFORMATION: Chest pain, shortness of breath. COMPARISON: Chest 08/10/2021 TECHNIQUE: 2 views of the chest were obtained. FINDINGS: No significant abnormality is noted involving the heart, lungs, mediastinum, bony thorax or soft tissues. XR/XR chest 2V IMPRESSION: Unremarkable examination. Electronically signed by: Sergio Burgos MD 01/04/2024 04:56 PM EDT RP
--- NOTE | ~2024-01-04 | US_ITS ---
EXAMINATION: US TRIPLEX LOWER EXTREMITY, LEFT CLINICAL INFORMATION: Left lower extremity pain COMPARISON: None available. TECHNIQUE: Color-flow triplex imaging with spectral analysis and compression Doppler were performed on the left lower extremity. FINDINGS: Respiratory variation, normal compression and augmented flow are noted throughout the left lower extremity. The visualized common femoral vein, superficial femoral vein, profunda femoral vein, popliteal vein and midcalf peroneal and posterior tibial venous segments show no evidence of deep venous thrombosis. Views of the contralateral right common femoral vein are normal in appearance. There is no Oscar's cyst. US/US venous duplex LE LT IMPRESSION: No evidence of deep venous thrombosis involving the left lower extremity. Electronically signed by: Vinh Wagoner MD 01/04/2024 03:51 PM EDT
--- NOTE | 2024-01-04 14:09 | ECG_ITS ---
Test Reason : chest pain Blood Pressure : / mmHG Vent. Rate : 082 BPM Atrial Rate : 082 BPM P-R Int : 174 ms QRS Dur : 086 ms QT Int : 384 ms P-R-T Axes : 030 -13 031 degrees QTc Int : 448 ms Normal sinus rhythm Moderate voltage criteria for LVH, may be normal variant ( R in aVL , Chetan product ) Borderline ECG When compared with ECG of 19-FEB-2023 11:35, No significant change was found Referred By: Abby Alejandro Electronically Signed By:CHANDLER FLYNN
[2024-01-04 15:11] VITALS: BP 147/91; PULSE 79; RESP 16; TEMP 36.8; O2SAT 97; BMI 31.1
--- NOTE | 2024-01-04 15:14 | ED_ITS ---
HPI - Chest Pain General Chief Complaint: Chest Pain Stated Complaint: CP-dizziness Related Data Home Medications ?Medication ?Instructions ?Recorded ?Confirmed amlodipine 10 mg tablet 10 mg PO DAILY 02/05/20 11/04/23 fluticasone propionate 50 1 spray intranasal DAILY PRN nasal 07/19/20 11/04/23 mcg/actuation nasal congestion spray,suspension metoprolol tartrate 25 mg tablet 25 mg PO BID 05/08/22 11/04/23 blood sugar diagnostic 08/29/22 11/04/23 blood-glucose meter (OneTouch #1 ea 08/29/22 11/04/23 Ultra2 Meter) fluoxetine 40 mg capsule 40 mg PO DAILY 08/29/22 11/04/23 lorazepam 0.5 mg tablet 0 mg PO 08/29/22 11/04/23 trazodone 50 mg tablet 50 - 150 mg PO BEDTIME PRN 08/29/22 11/04/23 tirzepatide 2.5 mg/0.5 mL 2.5 mg subcut QWEEK 06/17/23 11/04/23 subcutaneous pen injector (Negin) Previous Rx's ?Medication ?Instructions ?Recorded lancets #100 ea 08/20/22 clotrimazole 1 % topical cream 1 appl topical BID #45 grams 08/23/22 pen needle, diabetic 32 gauge x #30 ea 08/30/2209/17 (Comfort EZ Pen Blue) blood sugar diagnostic (OneTouch #100 ea 09/16/22 Ultra Test strips) flash glucose scanning reader #1 ea 09/24/22 (VistronixStyle Jame 2 [place]) inulin 2 gram chewable tablet 2 g PO DAILY #30 tabs 12/03/22 (Fiber Gummies) sennosides 8.6 mg tablet (senna) 8.6 mg PO DAILY #90 tabs 12/03/22 diphenhydramine HCl 25 mg capsule 25 mg PO TID PRN allergic reaction 12/24/22 (Benadryl) #14 caps hydrocortisone 1 % topical cream 1 appl topical BID PRN rash #28.35 12/24/22 (Anti-Itch (hydrocortisone)) grams flash glucose sensor (Ebixyle #2 ea 02/20/23 Jame 2 Sensor kit) Allergies Allergy/AdvReac Type Severity Reaction Status Date / Time latex [LATEX] Allergy Mild RASH Verified 01/06/24 11:17 metformin AdvReac Unknown Verified 01/06/24 11:17 [facility] Past Medical History Medical History Anxiety Depression GERD (gastroesophageal reflux disease) COVID-19 vaccine series completed Tachycardia Toxic multinodul goiter Chronic renal insufficiency Nephrolithiasis Cyst, kidney, acquired Diabetic neuropathy BMI 34.0-34.9,adult BMI 35.0-35.9,adult BMI 36.0-36.9,adult Pre-op evaluation B12 deficiency Obesity (BMI 30-39.9) Non-toxic multinodular goiter Dyslipidemia Diabetic 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 with type 2 diabetes mellitus intermediate (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 insulin Distal radius fracture, right HTN (hypertension) Chronic kidney disease Diabetes type 2, uncontrolled Surgical History History of surgery S/P fine needle aspiration S/P laparoscopic sleeve gastrectomy History of esophagogastroduodenoscopy (EGD) H/O colonoscopy Hx of biopsy History of partial hysterectomy History of total right knee replacement History of total left knee replacement (~2010) Hx of cholecystectomy History of section History of carpal tunnel release (~2017) Family History Family History Father Hypertension Diabetes History of kidney cancer Mother Diabetes Hypertension Heart disease Brother Hypertension Diabetes Brother No problems noted. Son Hypertension Prediabetes Heart disease Daughter Prediabetes Social History Social History Household Members: Spouse Are you a primary child care specialist to a significant other at home: No Do you presently have visiting nurse or other home services: Yes ([facility]NA) Alcohol intake: never Patient Tobacco Use Status: Never used Tobacco Physical Exam Vital Signs: Vital Signs: Last Vital Signs Temp 98.3 F 01/04/24 15:11 Pulse 79 01/04/24 15:11 Resp 16 01/04/24 15:11 BP 147/91 H 01/04/24 15:11 Pulse Ox 97 01/04/24 15:11 O2 Del Method Room Air 01/04/24 15:11 BMI result Body Mass Index 31.1 Course Course Course Narrative: This is a Rapid Medical Exam performed in triage by Abby Alejandro PA-C. Full HPI, ROS and PE to be performed by primary ED provider. 63 yo F w/PMHx GERD, anxiety, depression, DM presenting to the ED c/o chest tightness, SOB on exertion, pain w/inspiration x3 days. denies travel, takes 81 ASA. Also reports LLE pain PE: Lungs w/diminished lung sounds, +L calf ttp. no pitting edema Plan: EKG, labs, CXR, ultrasound Discharge Plan Discharge Clinical Impression: Chest pain Patient Disposition: Left W/O Completing Treatment Prescriptions: No Action (DME) pen needle, diabetic [Comfort EZ Pen Blue] 32 gauge x 5/16 needle See Rx Instructions .Route Qty: 30 5RF Rx Instructions: As directed injects once a day (DME) OneTouch Ultra Test Strip See Rx Instructions .Route Qty: 100 4RF Rx Instructions: As directed 3 times a day (DME) FreeStyle Jame 2 [place] Misc See Rx Instructions .Route Qty: 1 0RF Rx Instructions: As directed (DME) FreeStyle Jame 2 Sensor Kit See Rx Instructions .ROUTE .COMPLEX Qty: 2 2RF Dose Instruction: USE DIRECTED TO TEST BLOOD SUGAR. CHANGE EVERY 10 DAYS Rx Instructions: USE DIRECTED TO TEST BLOOD SUGAR. CHANGE EVERY 10 DAYS (DME) lancets Misc See Rx Instructions .Route Qty: 100 0RF Rx Instructions: As directed hydrocortisone [Anti-Itch (HC)] 1 % cream 1 appl topical BID PRN (Reason: rash) Qty: 28.35 0RF diphenhydramine HCl [Benadryl] 25 mg capsule 25 mg PO TID PRN (Reason: allergic reaction) Qty: 14 0RF amlodipine 10 mg tablet 10 mg PO DAILY fluticasone propionate 50 mcg/actuation spray,suspension 1 spray intranasal DAILY PRN (Reason: nasal congestion) metoprolol tartrate 25 mg tablet 25 mg PO BID clotrimazole 1 % cream 1 appl topical BID Qty: 45 3RF sennosides [senna] 8.6 mg tablet 8.6 mg PO DAILY Qty: 90 1RF Fiber Gummies 2 gram tablet,chewable 2 g PO DAILY Qty: 30 3RF (DME) blood-glucose meter [OneTouch Ultra2 Meter] Misc See Rx Instructions .ROUTE DIRECTED Qty: 1 Rx Instructions: As directed (DME) blood sugar diagnostic Strip See Rx Instructions .Route Rx Instructions: As directed trazodone 50 mg tablet 50 - 150 mg PO BEDTIME PRN lorazepam 0.5 mg tablet 0 mg PO fluoxetine 40 mg capsule 40 mg PO DAILY Mounjaro 2.5 mg/0.5 mL pen injector 2.5 mg subcut QWEEK Discharge Date/Time: 01/04/24 20:05
--- NOTE | 2024-01-04 19:53 | PC.NURSE ---
Per graphics edit technicianjazmine Riojas, pt left several hours ago prior to being able to obtain labs.
--- OUTSIDE RECORDS SUMMARY | 2024-01-04 20:06 | XMS_ITS ---
Author Organization [facility] Address [address] [place] [address] Care Team Providers Care Entertainment Dancer Name Role Phone BHUMIKA BUSTOS Unavailable [phone] Encounters Encounter Location Date Provider Diagnosis [facility] [address] [place] [address] 12/04/2023 BHUMIKA BUSTOS PLAN OF TREATMENT No Information Progress Notes * Coleen BERMANsDOB: [birth year] (63 yo F)Acc No.[id number]:12/04/2023 Patient:??Rosie BERMAN :1960?Age:63 Y?Sex:Fe male Address:[address] [place] [id number] * true * Date:??
--- OUTSIDE RECORDS SUMMARY | 2024-01-04 20:06 | XMS_ITS | Patient Health Record ---
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 Dish Repairer Name Role Phone BHUMIKA BUSTOS Unavailable [phone] ALLERGIES Allergen (clinical drug ingredient) Drug/Non Drug Allergy documented on EMR Reaction Allergy Type Onset Date Status Latex Latex Unknown Allergy Active RESULTS Component Value Reference Range Notes GLYCOHEMOGLOBIN PROFILE Reviewed date:10/06/2023 10:16:44 AM Interpretation: Performing Lab: Notes/Report: GLYCATED HEMOGLOBIN A1C 6.4 <6.5 % ESTIMATED AVERAGE GLUCOSE 137 TSH Reviewed date:10/06/2023 10:16:44 AM Interpretation: Performing Lab: Notes/Report: TSH 0.43 0.40-4.00 uIU/ml TOTAL T4 Reviewed date:10/06/2023 10:16:44 AM Interpretation: Performing Lab: Notes/Report: Note Original Orderi ng Provider: 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 No Points 0 Interpretation Negative PROBLEMS Problem Type ICD Code Onset Dates Problem Status W/U Status Risk SNOMED Code Notes Problem Type 2 diabetes mellitus without complications (E11.9) Active confirmed 705653380 Problem Other obesity due to excess calories (E66.09) Active confirmed 480663393 Problem group home (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 insulin (Z79.4) Active confirmed 588253452 Problem Hypothyroidism, unspecified type (E03.9) Active confirmed 92181931 Problem Body mass index [BMI] 32.0-32.9, adult (Z68.32) Active confirmed 741081468 Problem BMI 31.0-31.9,adult (Z68.31) Active confirmed 315458421 Problem BMI 30.0-30.9,adult (Z68.30) Active confirmed 882578983 VITAL SIGNS Heart Rate 76 /min 10/03/2023 Oximetry 95 % 10/03/2023 Blood pressure diastolic 84 mm Hg 10/03/2023 Height 61 in 10/03/2023 Blood pressure systolic 120 mm Hg 10/03/2023 Weight 161 lbs 10/03/2023 BMI 30.42 kg/m2 10/03/2023 Encounters Encounter Location Date Provider Diagnosis [place] [id number] 08/13/20[place] [address] 11/28/2023 BHUMIKA BUSTOS Other obesity due to excess calories E66.09 ; BMI 30.0-30.9,adult Z68.30 ; Type 2 diabetes mellitus without complications E11.9 ; watermelon inspector (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 insulin Z79.4 ; History of gastric surgery Z98.890 and Hypothyroidism, unspecified type E03.9 [place] [address] 05/09/2023 BHUMIKA BUSTOS Other obesity due to excess calories E66.09 ; Body mass index [BMI] 32.0-32.9, adult Z68.32 ; Type 2 diabetes mellitus without complications E11.9 ; group home (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 insulin Z79.4 and History of gastric surgery Z98.890 [place] [address] 07/04/2023 BHUMIKA BUSTOS Other obesity due to excess calories E66.09 ; Type 2 diabetes mellitus without complications E11.9 ; group home (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 insulin Z79.4 ; History of gastric surgery Z98.890 and BMI 31.0-31.9,adult Z68.31 [place] [address] [address] 10/03/2023 BHUMIKA BUSTOS Other obesity due to excess calories E66.09 ; BMI 30.0-30.9,adult Z68.30 ; Type 2 diabetes mellitus without complications E11.9 ; watermelon inspector (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 insulin Z79.4 ; History of gastric surgery Z98.890 and Hypothyroidism, unspecified type E03.9 [facility] [address] [place] [address] 08/29/2023 BHUMIKA BUSTOS [facility] [address] [place] [address] 12/04/2023 BHUMIKA BUSTOS ASSESSMENTS Encounter Date Diagnosis Assessment Notes Treatment Notes Treatment Clinical Notes 05/09/2023 Other obesity due to excess calories (ICD-10 - E66.09) 05/09/2023 Body mass index [BMI ] 32.0-32.9, adult (ICD-10 - Z68.32) 07/04/2023 Type 2 diabetes mellitus without complications (ICD-10 - E11.9) 07/04/2023 Other obesity due to excess calories (ICD-10 - E66.09) 10/03/2023 Other obesity due to excess calories (ICD-10 - E66.09) 10/03/2023 BMI 30.0-30.9,adult (ICD-10 - Z68.30) 11/28/2023 Other obesity due to excess calories (ICD-10 - E66.09) 11/28/2023 BMI 30.0-30.9,adult (ICD-10 - Z68.30) 10/03/2023 Type 2 diabetes mellitus without complications (ICD-10 - E11.9) 05/09/2023 Type 2 diabetes mellitus without complications (ICD-10 - E11.9) 07/04/2023 watermelon inspector (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 insulin (ICD-10 - Z79.4) 05/09/2023 watermelon inspector (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 insulin (ICD-10 - Z79.4) 07/04/2023 History of gastric surgery (ICD-10 - Z98.890) 10/03/2023 group home (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 insulin (ICD-10 - Z79.4) 11/28/2023 Type 2 diabetes mellitus without complications (ICD-10 - E11.9) 10/03/2023 History of gastric surgery (ICD-10 - Z98.890) 05/09/2023 History of gastric surgery (ICD-10 - Z98.890) 07/04/2023 BMI 31.0-31.9,adult (ICD-10 - Z68.31) 11/28/2023 group home (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 insulin (ICD-10 - Z79.4) 11/28/2023 History of gastric surgery (ICD-10 - Z98.890) 11/28/2023 Hypothyroidism, unspecified type (ICD-10 - E03.9) 10/03/2023 Hypothyroidism, unspecified type (ICD-10 - E03.9) PLAN OF TREATMENT Pending Test Test Name Order Date HEMOGLOBIN A1C 10/03/2023 T4, TOTAL 10/03/2023 TSH 10/03/2023 Insurance Providers Payer Name Payer Address Payer Phone Subscriber Number Group Number Insured Name Patient Relationship to Insured Coverage Start Date Coverage End Date [employer] or Options [address] [place] [phone] [id number] Rosie Grimm Self - patient is the insured 3 MEDICAL (GENERAL) HISTORY Medical History History ICD Code Hypothyroidism type II diabetes hydronephrosis Surgical History Surgery Date(Month/Year) hysterectomy left knee replacement right knee replacement hydroneprosis
--- OUTSIDE RECORDS SUMMARY | 2024-01-04 20:06 | XMS_ITS ---
Author Organization [facility] Address [address] [place] [address] Care Team Providers Care Delivery Aide Name Role Phone BHUMIKA BUSTOS Unavailable [phone] ALLERGIES Allergen (clinical drug ingredient) Drug/Non Drug Allergy documented on EMR Reaction Allergy Type Onset Date Status Latex Latex Unknown Allergy Active REASON FOR VISIT Pt seen in office for wt mgt f/u visit with ROMULO. MEDICATIONS Medication SIG (Take, Route, Frequency, Duration) Notes Start Date End Date Status LORazepam 0.5 MG Oral for 75 Days Active Omeprazole 20 MG Oral for 90 Days Active Mounjaro 5 MG/0.5ML 5mg Subcutaneous wee kly for 30 days 07/04/2023 Not-Taking traZODone HCl 50 MG Oral for 90 Days Active FLUoxetine HCl 40 MG TAKE 1 CAPSULE BY M OUTH EVERY MORNING Oral for 90 Days Active amLODIPine Besylate 10 MG Oral for 90 Days Active Metoprolol Succinate ER 100 MG Oral for 90 Days Active FreeStyle Jame 2 Sensor - for 28 Days Active Mounjaro 2.5 MG/0.5ML 2.5mg Subcutaneous weekly for 30 days 05/09/2023 Active Fluticasone Propionate 50 MCG/ACT Nasal for 90 Days Active Mounjaro 5 MG/0.5ML 5mg Subcutaneous wee kly for 30 days 10/03/2023 Active Trulicity 0.75 MG/0.5ML Subcutaneous for 28 Days Not-Taking Ozempic (0.25 or 0.5 MG/DOSE) 2 MG/3ML 0.25mg x 2 weeks, then 0.5mg weekly Subcutaneous weekly for 30 days 08/29/2023 Not-Taking MiraLax 17 GM 1 packet mixed with 8 ounces of fluid Orally Once a day Not-Taking Linzess 145 MCG 1 capsule at least 3 0 minutes before the first meal of the day on an empty stomach Orally Once a day for 30 days 07/04/2023 Active SOCIAL HISTORY Tobacco Use: Social History Observation Description Date Details (start date - stop date) Never Smoker NA - NA Sex Assigned At : Social History Observation Description Sex Assigned At Unknown Tobacco Use/Smoking Question Answer Notes Are you a nonsmoker PROBLEMS Problem Type ICD Code Onset Dates Problem Status W/U Status Risk SNOMED Code Notes Problem BMI 30.0-30.9,ad ult (Z68.30) Active confirmed [id number] VITAL SIGNS Heart Rate 76 /min 10/03/2023 Blood pressure systolic 120 mm Hg 10/03/19 24 Blood pressure diastolic 84 mm Hg 024 Weight 161 lbs 10/03/2023 BMI 30.42 kg/m2 10/03/2023 Height 61 in 10/03/2023 Oximetry 95 % 10/03/2023 Encounters Encounter Location Date Provider Diagnosis [place] [id number] [address] [facility] [address] [place] [address] 10/03/2023 BHUMIKA BUSTOS Other obesity due to excess calories E66.09 ; BMI 30.0-30.9,adult Z68.30 ; Type 2 diabetes mellitus without complications E11.9 ; [facility] (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 insulin Z79.4 ; History of gastric surgery Z98.890 and Hypothyroidism, unspecified type E03.9 ASSESSMENTS Encounter Date Diagnosis Assessment Notes Treatment Notes Treatment Clinical Notes 10/03/2023 Other obesity due to excess calories (ICD-10 - E66.09) 10/03/2023 BMI 30.0-30.9,adult (ICD-10 - Z68.30) 10/03/2023 Type 2 diabetes mellitus without complications (ICD-10 - E11.9) 10/03/2023 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 (ICD-10 - Z79.4) 10/03/2023 History of gastric surgery (ICD-10 - Z98.890) 10/03/2023 Hypothyroidism, unspecified type (ICD-10 - E03.9) PLAN OF TREATMENT Medication Medication Name Sig Start Date Stop Date Notes Mounjaro 5 MG/0.5ML 5mg Subcutaneous weekly for 30 days Pending Test Test Name Order Date HEMOGLOBIN A1C 10/03/2023 T4, TOTAL 10/03/2023 TSH 10/03/2023 Progress Notes * Coleen BERMANsDOB: [birth year] (63 yo F)Acc No.[id number]:10/03/2023 Patient:??Rosie BERMAN Provider:??BHUMIKA BUSTOS NP :1960?Age:63 Y?Sex:Fe male Date:10/03/2023 Address:[address] [place], [place] [id number] Subjective: * Chief Complaints: * ?1. Pt seen in office f or wt mgt f/u visit with ROMULO.. * HPI: ?Constitutional:? Patient is here today for a weight management f/u visit ?Patient seen and examined. ? Full past medical history, social history, family history, ?allergies and current medications were reviewed and updated. ?Body composition analysis reviewed today, as expected increased BMI, ?visceral adiposity, fat mass index, waist cirumference ?Good skeletal mass composition, Good water composition ?Caloric energy expenditure discussed ?#Weight Management ?10/03/2023 ?currently on 0.25mg Ozempic ?Had been on Mounjaro however because of nationwide shortages we transition her to Ozempic in the interim ?She would like to go back on Mounjaro she feels better appetite suppression and efficacy ?Denies any side effects except for constipation ?Was given samples of Linzess today for constipation ?07/2023 Updated A1c of 6.5%. improved from 7.0 ?To discontinue metformin ?hx of type 2 DM, current regimen ?was onTrulicity 1.5mg weekly, Jardiance 25mg, Lantus 5 uxs @ [facility] ?No longer on Trulicity and Lantus * ?utilizing freestyle jame CGM ?morning sugars 60-70 in am ?Injection Day Mondays ?hx of hypothyroidism, was on synthroid ?Discussed the importance of protein-calorie nutrition, maintaining muscle mass, vit b12, biotin, iron ?while on GLP-1 medications, dual incretins, appetite suppressants ?10/03/2023, Weight , BMI ?07/04/2023, Weight 165 Ibs, BMI 31 (-5 Ibs) ?05/09/2023: Weight 170 lbs, BMI 32: ?Patient referred to us from [facility] ?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 ?also hx of Left tkR 2009 ?also hx of right tkr 2016 [facility] ?Diet: bariatric diet, utilizing bariatric multivitamins ?Exercise: Currently not tracking steps daily. ?Non-smoker. ?ETOH use: denies ?Health Maintenance ?Flu: April 2023 ?Shringrix: 2101-0121. Had both shots ?RSV: Rx given for pharmacy ?TDap: up-to-date. * ROS:?All Other Systems:?Review of Systems (ROS)??All others negative except those mentioned in HPI.? * Medical History:??Hypothyroi dism, type II diabetes, Hydronephrosis. * Surgical History:??hysterect jaime , left knee replacement , right knee replacement , hydroneprosis . * Hospitalization/Major Diagno stic Procedure:??Denies Past Hospitalization. * Family History:??Father: dec eased.??Mother: alive.??2 brother(s) , 1 sister(s) - healthy. .?? father-diabetes 2 brothers- diabetes. * Social History:?Tobacco Use:??Tobacco Use/Smoking??Are you a??nonsmoker.?? * Medications:??Taking Mounjar o 2.5 MG/0.5ML Solution Pen-injector 2.5mg Subcutaneous weekly , Taking FreeStyle Jame 2 Sensor - Miscellaneous , Taking Metoprolol Succinate ER 100 MG Tablet Extended Release 24 Hour Oral , Taking amLODIPine Besylate 10 MG Tablet Oral , Taking Fluticasone Propionate 50 MCG/ACT Suspension Nasal , Taking Omeprazole 20 MG Capsule Delayed Release Oral , Taking LORazepam 0.5 MG Tablet Oral , Taking FLUoxetine HCl 40 MG Capsule TAKE 1 CAPSULE BY MOUTH EVERY MORNING Oral , Taking traZODone HCl 50 MG Tablet Oral , Taking Linzess 145 MCG Capsule 1 capsule at least 30 minutes before the first meal of the day on an empty stomach Orally Once a day , Not-Taking MiraLax 17 GM Packet 1 packet mixed with 8 ounces of fluid Orally Once a day , Not-Taking Mounjaro 5 MG/0.5ML Solution Pen-injector 5mg Subcutaneous weekly , Not-Taking Ozempic (0.25 or 0.5 MG/DOSE) 2 MG/3ML Solution Pen-injector 0.25mg x 2 weeks, then 0.5mg weekly Subcutaneous weekly , Not-Taking Trulicity 0.75 MG/0.5ML Solution Pen-injector Subcutaneous , Medication List reviewed and reconciled with the patient * Allergies:??Latex. Objective: * Vitals:??HR:76/min, BP:120/8 4mm Hg, Wt:161lbs, BMI:30.42Index, Ht: 61 in, Oxygen sat %:95%. * Examination: ?General Examination: ?GENERAL APPEARANCE:??in no acute distress, well developed, well nourished.??HEAD:??normocephalic, atraumatic.??EYES:??pupils equal, round, reactive to light and accommodation.??EARS:??normal.??ORAL CAVITY:??mucosa moist.??THROAT:??clear.??NECK/THYROID:??neck supple, full range of motion, no cervical lymphadenopathy.??SKIN:??no suspicious lesions, warm and dry.??HEART:??no murmurs, regular rate and rhythm, S1, S2 normal.??LUNGS:??clear to auscultation bilaterally.??ABDOMEN:??normal, bowel sounds present, soft, nontender, nondistended.??EXTREMITIES:??no clubbing, cyanosis, or edema.??NEUROLOGIC:??nonfocal, motor strength normal upper and lower extremities, sensory exam intact.? 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 #Weight Management 10/03/2023 _update some labs including thyroid function specifically Will try to get Mounjaro 5 mg if not we will increase Ozempic intensity Instructed to discontinue metformin Hemoglobin A1c downtrending 6.5 Will continue Jardiance SGLT is beneficial for the heart and kidneys Will follow A1c closely Linzess for constipation Total time spent today was 30 minutes of which greater than 50% was spent on coordinating and counseling Patient has been found to be obese with a BMI of (30). Patient has class (1) obesity. We are a board certified obesity and weight management practice Patient has trialed behavioral modification, dietary restrictions and exercise for a minimum of 6 months The most recent [place] [employer] of clinical endocrinologists and [place] [employer] of endocrinology guidelines recommend patients who have overweight BMI or obesity BMI, who also have metabolic syndrome, prediabetes, HLD, and other comorbidities or at risk of developing type 2 diabetes should aim for a weight loss goal of at least 10% of the baseline body weight Patient counseled regarding effects of GLP/GIP-1 agonists, and other FDA approved wgt loss meds with regards to a multifactorial approach of weight loss as mentioned above and not solely appetite suppression. We have discussed the mechanism of GLP-1's/GIP, dual incretins, appetitite suppressants I think this would be fantastic option for her given her metabolic workup and body composition We have discussed the risks and benefits and side effects including/and not limited to Sarcopenia, intestinal obstruction, constipation, nausea, lethargy, headache Discussed importance of protein consumption for muscle maintenance as well as strength and resistance training ,probiotics, B12 complex biotin , iron and other nutrients, To help avoid telogen effluvium We have discussed the lifelong requirement of nutritional supplementation And adherence to an exercise regimen as well as importance of follow-up The patient understands and agrees There is no history of medullary thyroid cancer or multiple endocrine neoplasia There is also no history of cardiovascular disease, hypertension, palpitations, or arrhythmias In the setting of potential stimulant/amphetamine use such as phentermine We have also discussed risks and benefits, and the use of compounded medications to help offset the national shortages as well as financial implications vs trade name drugs Patient was reassured and welcomed to the practice. We discussed that we stress a hollistic medical approach with emphasis on lifestyle modification. Patient was informed that a healthy lifestyle with exercise and good eating habits can help reduce his risk of medical complications. He is explained that obesity increases his risk of diabetes, cardiovascular disease, or organ damage. We spent a lot of time discussing the relationship between food, exercise, sleep, mental health and obesity. Patient was counseled on the importance EATING local, organic food when possible. Patient was educated on clean 15 and dirty dozen. I provided information about reading books called The Food Rules by Srini Zavaleta and Eat Fat Get Lean by Dr Jan Liu. Self education is important in the journey for weight management. Patient was offered diagnostic testing. We want to measure visceral adiposity, advanced body composition, adverse lipids, fatty acid balance, risk for heart disease and atherosclerosis, markers of inflammation and genetic susceptibility. Patient was counseled on weight management and was advised to lose weight using A. Meal Replacement Products We discussed the lifelong requirement of nutritional supplementation and adherence to an exercise regimen as well as importance of dietary follow-up Patient was educated on the replacement products called optifast. This is a good way of taking fixed amount of calories. It has been shown in studies to be ineffective weight management tool. We also recommend maintaining adequate protein intake and muscle composition, 1.5mg/kg This however has to be coupled with lifestyle intervention as well as laboratory data and EKG monitoring. It is impossible to know how a person will tolerate complete meal replacement. The side effects of meal replacement and weight loss could include syncopal attacks, dizziness, gallstones, potential cholecystectomy, possible heart attack and even . The benefits of meal replacement would be potential weight loss but no guarantees can be made. Meal replacement products are not covered by insurance. Once the patient has bought these products we cannot return them B. Lifestyle management which includes several strategies as below 1. Eat a low carbohydrate good fat good protein diet. Eliminate refined carbohydrates from the diet. Continue blood sugar and sugared beverages. Eat local organic when possible. Cook your own meals. Read food labels. None about healthy snacks. Portion control and food with low glycemic index 2. Exercise regularly. Try to get at least 6000 steps a day. Use a predominant to track activity level. Consider using apps like Adeyoh, RubyRidepal, lose it, stick as needed for self-monitoring and weight management. Consider group exercises. Consider hiring a personal banker. Regular exercise is shook to sustainable health and prevents as a buffer against weight regain 3. Sleep is most important for healing. Tried to sleep at least 8 hours a night. A good quality sleep needs a sleep ritual with ideal room temperature of around 68. It might help to take a shower and have no electronics in the room and sleep in a very dark room without artificial light. Start her sleep routine and get up early in the morning and go to bed on time 4. Make a social connection. Surround yourself with positive people with positive energy. Connect with friends and family. 5. Get into the habit of meditating and mindfulness while doing everything. 6. Go outside and connect with nature. C. Prescription medications Patient was educated on the use of prescription medications for medical weight loss. This is a growing list and includes phentermine, Topamax,Qsymia, contrave, belviq and saxenda. All prescription medications could have side effects including but not limited to kidney stones, seizure disorder cardiac arrhythmias heart attack pancreatitis etc. etc.. Patient was encouraged to read the prescription insert and have coaching with their pharmacist and make an informed decision about taking medication and know that these medications are being prescribed with good intentions and we do not know how a patient would react to her medication. Sudden medications are FDA approved for weight loss and there is also off label use depending on patient's inability to afford medications in an attempt to lose weight D. Behavioral counseling was done to establish a relationship between food and an mood. Patient was provided information about local counseling and psychiatry and Dr Salamanca at [facility]. We would like to cover regular topics and build on low glycemic eating exercise mindful eating, using yoga and meditation along with deep breathing and connecting with friends and family. E. MASS PAT reviewed, Patient's current medications were reviewed and opinion was given on medication that can cause weight gain and can be substituted F. Patient was assessed for risk with obesity including and not limiting to atherosclerosis heart disease stroke kidney disease, restrictive lung disease, irritable bowel syndrome and overall mortality. Risk of developing prediabetes diabetes and metabolic syndrome was discussed G. Therapeutic plan: We have decided to make therapeutic plan which would include choosing wisely on calories restricting portion getting active, tracking weight, getting good quality sleep and working on time management H. Patient will follow up in (4) weeks for weight management Of note, some information is being carried forward from prior records for informational purposes only and is being cited so that efficiency, safety and quality of the patient's care is not compromised This note was prepared using voice recognition software and direct typing Please excuse inadvertent director health or typing errors, or uncorrected word substitutions Although every attempt has been made by the provider to proofread this document, occasional misspellings and typographical errors may still be present Due to the previous pandemic, and the use of personal protective equipment (PPE) This may decrease voice recognition accuracy Inadvertent director health errors may occur. Plan: * Treatment: 2.??Type 2 diabetes mellitus without complications?LAB: HEMOGLOBIN A1C ?LAB: T4, TOTAL ?LAB: TSH 3.??Hypothyroidism, unspecif ied type?LAB: HEMOGLOBIN A1C ?LAB: T4, TOTAL ?LAB: TSH * Images: Billing Information: * Visit Code:?? 37015 Office Visit, Est Pt., Level 4. Modifiers: 25 * Procedure Codes:?? * Sign off status: Completed true * Provider:??BHUMIKA BUSTOS NP Date:??09/04 History and Physical Notes * Examination Category Sub-Category Detail Notes General Examination GENERAL APPEARANCE: in no ac [place] distress, well developed, well nourished HEAD: normocephalic, atrau matic EYES: pupils equal, round, reactive to light and accommodation EARS: normal THROAT: clear NECK/THYROID: neck supple, full ra nge of motion, no cervical lymphadenopathy HEART: no murmurs, regular rate and rhythm, S1, S2 normal LUNGS: clear to auscultatio n bilaterally ABDOMEN: normal, bowel sounds present, soft, nontender, nondistended NEUROLOGIC: nonfocal, motor stre ngth normal upper and lower extremities, sensory exam intact SKIN: no suspicious lesion s, warm and dry EXTREMITIES: no clubbing, cyanosi s, or edema ORAL CAVITY: mucosa moist
--- OUTSIDE RECORDS SUMMARY | 2024-01-04 20:06 | XMS_ITS ---
Author Organization [facility] Address [address] [place] [address] Care Team Providers Care Regrader Name Role Phone BHUMIKA BUSTOS Unavailable [phone] MEDICATIONS Medication SIG (Take, Route, Fr equency, Duration) Notes Start Date End Date Status Mounjaro 5 MG/0.5ML 5mg Subcutaneous wee kly for 30 days Active Encounters Encounter Location Date Provider Diagnosis [place] [address] [address] 11/28/2023 BHUMIKA VENTURADEVINeymar Other obesity due to excess calories E66.09 ; BMI 30.0-30.9,adult Z68.30 ; Type 2 diabetes mellitus without complications E11.9 ; 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 ; History of gastric surgery Z98.890 and Hypothyroidism, unspecified type E03.9 ASSESSMENTS Encounter Date Diagnosis Assessment Notes Treatment Notes Treatment Clinical Notes 11/28/2023 Other obesity due to excess calories (ICD-10 - E66.09) 11/28/2023 BMI 30.0-30.9,adult (ICD-10 - Z68.30) 11/28/2023 Type 2 diabetes mellitus without complications (ICD-10 - E11.9) 11/28/2023 [facility] (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 insulin (ICD-10 - Z79.4) 11/28/2023 History of gastric surgery (ICD-10 - Z98.890) 11/28/2023 Hypothyroidism, unspecified type (ICD-10 - E03.9) PLAN OF TREATMENT Medication Medication Name Sig Start Date Stop Date Notes Mounjaro 5 MG/0.5ML 5mg Subcutaneous weekly for 30 days Progress Notes * Coleen BERMANsDOB: [birth year] (63 yo F)Acc No.[id number]:11/28/2023 Patient:??Rosie BERMAN Provider:??BHUMIKA BUSTOS NP :1960?Age:63 Y?Sex:Fe male Date:11/28/2023 Address:[address] [place], [place] [id number] Subjective: * Chief Complaints: * ? * HPI: ?Constitutional:? Patient is here today for a weight management f/u visit ?Patient seen and examined. ? Full past medical history, social history, family history, ?allergies and current medications were reviewed and updated. ?Body composition analysis reviewed today, as expected increased BMI, ?visceral adiposity, fat mass index, waist cirumference ?Good skeletal mass composition, Good water composition ?Caloric energy expenditure discussed ?#Weight Management ?11/28/2023 ?currently on 0.25mg Ozempic ?Had been on [...] weekly, Jardiance 25mg, Lantus 5 uxs @ [facility] ?No longer on Trulicity and Lantus * ?utilizing freestyle wally CGM ?morning sugars 60-70 in am ?Injection Day Mondays ?hx of hypothyroidism, was on synthroid ?Updated comprehensive labs October 03, 2023 ?Hemoglobin A1c of 6.4 prediabetic state ?TSH of 0.43, T4, 8.4 ?Discussed the importance of protein-calorie nutrition, maintaining muscle mass, vit b12, biotin, iron ?while on GLP-1 medications, dual incretins, appetite suppressants ?11/28/2023, Weight , BMI ?07/04/2023, Weight 165 Ibs, BMI 31 (-5 Ibs) ?05/09/2023: Weight 170 lbs, BMI 32: ?Patient referred to us from [facility] ?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 Had both shots ?RSV: Rx given for pharmacy ?TDap: up-to-date. * ROS:?All Other Systems:?Review of Systems (ROS)??All others negative except those mentioned in HPI.? * Medical History:?? 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 #Weight Management 11/28/2023 Will try to get Mounjaro 5 mg [...] minimum of 6 months The most recent [place] [employer] of clinical endocrinologists and [place] [employer] of endocrinology guidelines recommend patients who [...] track activity level. Consider using apps like Trivop, GENIACpal, lose it, stick as needed for self-monitoring and weight management. Consider group exercises. Consider hiring a personal investment adviser. Regular exercise is shook to sustainable health [...] counseling and psychiatry and Dr Salamanca at [facility]. We would like to cover regular topics [...] software and direct typing Please excuse inadvertent crown wheel assembler or typing errors, or uncorrected word substitutions Although every attempt has been made by the provider to proofread this document, occasional misspellings and typographical errors may still be present Due to the previous pandemic, and the use of personal protective equipment (PPE) This may decrease voice recognition accuracy Inadvertent crown wheel assembler errors may occur. Plan: * Treatment: * Procedure Codes:??16504 NO S HOW OFFICE VISIT * Images: Billing Information: * Visit Code:?? * Procedure Codes:?? 51144 NO SHOW OFFICE VISIT. * Sign off status: Pending * Provider:??BHUMIKA BUSTOS NP Date:??11/03 History and Physical Notes * Examination Category Sub-Category Detail Notes General Examination GENERAL APPEARANCE: in no ac brandyn distress, well developed, well nourished HEAD: normocephalic, [...]
== END 2024-01-04 20:05 | disposition left against medical advice (07) ==
LOC: HO.ED 20:04
PROVIDERS: Emergency Provider Emergency Medicine; PCP Internal Medicine
DX: R07.89 Other chest pain (principal); R42 Dizziness and giddiness; Z79.899 Other long term (current) drug therapy; R60.0 Localized edema
CPT/HCPCS: 71046; 93005; 93971; 99283

== ENCOUNTER 2024-01-06 11:09 | Outpatient (AMB) | payer OTHER, SELFPAY ==
--- NOTE | 2024-01-06 11:14 | A.OFFVIS_ITS ---
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 Her left leg has multiple areas that bother her Primarily behind the knee. Her legs swell , itch, and cramp. She has had bilateral knee replacements in . Patient is a non smoker. She is diabetic. 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 Complaints include pain over varicosities, swelling of lower extremities, cramping, fatigue, and heaviness of the lower extremities. It has been affecting there daily activities including walking. It is noted more so in le ft leg. More so towards the calf region has been a source of an issue for her. She reports significant increase in swelling after her knee surgery back in 2009. Also of note prior gastric bypass Patient denies any previous venous surgery or injections. Patient denies any history of DVT/ PE. Patient denies any history of phlebitis. Trial of compression includes - [id number] They now present for vascular evaluation regarding their varicose veins. [facility] Medical History Anxiety Depression GERD (gastroesophageal reflux disease) COVID-19 vaccine series completed Tachycardia Toxic multinodul goiter Chronic renal insufficiency Nephrolithiasis Cyst, kidney, acquired Diabetic neuropathy BMI 34.0-34.9,adult BMI 35.0-35.9,adult BMI 36.0-36.9,adult Pre-op evaluation B12 deficiency Obesity (BMI 30-39.9) Non-toxic multinodular goiter Dyslipidemia Diabetic 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 with type 2 diabetes mellitus assisted (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 insulin Distal radius fracture, right HTN (hypertension) Chronic kidney disease Diabetes type 2, uncontrolled Surgical History History of surgery S/P fine needle aspiration S/P laparoscopic sleeve gastrectomy History of esophagogastroduodenoscopy (EGD) H/O colonoscopy Hx of biopsy History of partial hysterectomy History of total right knee replacement History of total left knee replacement (~2010) Hx of cholecystectomy History of section History of carpal tunnel release (~2017) Family History Father Hypertension Diabetes History of kidney cancer Mother Diabetes Hypertension Heart disease Brother Hypertension Diabetes Brother No problems noted. Son Hypertension Prediabetes Heart disease Daughter Prediabetes Social History Household Members: Spouse Are you a primary healthcare educator to a significant other at home: No Do you presently have visiting nurse or other home services: Yes (VNA) Alcohol intake: never Patient Tobacco Use Status: Never used Tobacco Review of Systems Const Reports as per HPI ENT Reports no additional complaints Card Denies chest pain, Denies chest pain at rest and Denies chest pain with activity Resp Denies chest congestion and Denies cough GI Reports no additional complaints Musc Details: pain over varicosities, aching of lower extremities, swelling, cramping, heaviness and tiredness, itching Denies abnormal gait Skin/Breast Reports pruritus and Denies wounds Neuro Reports no additional complaints and Denies abnormal gait Psych Denies no additional complaints Physical Exam Const General: cooperative, healthy appearing and comfortable Orientation/consciousness: oriented to person, oriented to place and oriented to time Neck Carotids: no bruits Chest Chest palpation & inspection: normal inspection of the chest and normal palpation of entire chest wall Resp Effort & Inspection: normal respiratory effort and able to speak in complete sentences Cardio Rate: regular rate Heart sounds: S1 normal heart sound present and S2 normal heart sound present Peripheral pulses: Peripheral pulses 2+ throughout GI Inspection: Yes normal to inspection Skin Other: +2 edema, large rope-like varicosities greater than 4 mm left calf CEAP Classification C4 - skin color changes Ep - Etiology Primary As - superficial veins P - reflux General skin exam: dry skin Neuro General: oriented to person, oriented to place and oriented to time Extrem Right lower extremity: full ROM, normal capillary refill and edema Left lower extremity: full ROM, normal capillary refill and edema Psych Mental Status: mental status grossly normal Assessment & Plan Assessment & Plan (1) Varicose veins of left lower extremity with inflammation: Code(s): I83.12 - Varicose veins of left lower extremity with inflammation Category: Medical Plan: In short, the patient has evidence of venous insufficiency. I have discussed the pathophysiology with the patient. In addition I have provided informational material regarding venous disease to the patient. We have discussed conservative measures including compression, elevation, and exercise. I have also provided a handout regarding appropriate use of compression stocki ngs and where to purchase good compression stockings as well. I have taken the liberty of ordering venous insufficiency testing with the patient. They will follow up with me after testing. The patient had an opportunity to ask questions regarding the treatment plan. All questions were answered. Imaging studies, laboratory studies and physical exam results were discussed and reviewed in detail. No major barriers to understanding were identified. The patient expressed understanding and agreement with the above treatment plan. The patient is aware they should contact our office by phone for worsening of the current condition or the appearance of new symptoms. Thank you for allowing me to participate in the vascular care of this patient. If you have any questions or concerns regarding the treatment for the above condition please do not hesitate to contact me. The office telephone contact is [phone]. This note is constructed using voice recognition software. While every effort has been made to ensure accuracy, air intercept controller supervisor errors may have been included. Thank you for allowing me to participate in the care of your patient. Yours sincerely, Maximus Brandon MD, FACS, R.P.V.I. Orders: Orders US venous duplex LE BI 1 Week I83.12 - Varicose veins of left lower extremity with inflammation Coding Level of Care Code New Pt Level 4 (65539) Diagnoses Varicose veins of left lower extremity with inflammation I83.12
== END 2024-01-06 12:00 | disposition home or self-care (01) ==
PROVIDERS: PCP Internal Medicine; Visit Provider Surgery Vascular Surgery
DX: I83.12 Varicose veins of left lower extremity with inflammation (principal)
CPT/HCPCS: 99203

== ENCOUNTER → 2024-01-06 11:09 | Outpatient (BNVA) | payer OTHER, SELFPAY | PROVIDERS: PCP Internal Medicine; Visit Provider Surgery Vascular Surgery | DX: I83.12 Varicose veins of left lower extremity with inflammation (principal) | CPT/HCPCS: 99202 ==

== ENCOUNTER 2024-01-14 07:50 | Outpatient (REF) | payer OTHER, SELFPAY ==
--- NOTE | ~2024-01-14 | US_ITS ---
EXAMINATION: US VENOUS BILATERAL LOWER EXTREMITIES (REFLUX EXAM) CLINICAL INDICATION: Leg pain and varicose veins. COMPARISON: DVT study 01/04/2024. TECHNIQUE: Color flow triplex imaging and compression Doppler was performed to evaluate both the deep and the superficial systems bilaterally. To evaluate the superficial system, the examination was performed in the upright position. Color-flow Doppler ultrasound and compression ultrasound were utilized. In addition, maneuvers were utilized to demonstrate reflux. FINDINGS: 1. DEEP VENOUS ULTRASOUND OF THE RIGHT LOWER EXTREMITY: Respiratory variation, normal compression and augmented flow are noted in the right common femoral vein as well as the right popliteal vein and there is no evidence of deep venous thrombosis at these locations. There is no evidence of reflux in the deep system in either the common femoral vein or the popliteal vein. There is no evidence of a Oscar's cyst. 2. SUPERFICIAL ULTRASOUND WITH DOPPLER OF RIGHT LOWER EXTREMITY: The right great saphenous vein at the saphenofemoral junction measures 7 mm, at the proximal thigh 10 mm, at the mid thigh 3 mm, above the knee 4 mm, at the knee 3 mm, [id number] 4 mm, midcalf 3 mm and at the ankle measures 3 mm. There is no reflux demonstrated in the right great saphenous vein. Duplicated Right Great Saphenous Vein: There is an accessory lateral saphenous measuring 8 mm without reflux. The right small saphenous vein measures 3 mm and shows no reflux. Accessory Vein of Giacomini: None Incompetent Perforators: None Varices Present: Yes, but no reflux seen. 3. DEEP VENOUS ULTRASOUND OF THE LEFT LOWER EXTREMITY: Respiratory variation, normal compression and augmented flow are noted in the left common femoral vein as well as the left popliteal vein and there is no evidence of deep venous thrombosis at these locations. There is no evidence of reflux in the deep system in either the common femoral vein or the popliteal vein. There is no evidence of a Oscar's cyst. 4. SUPERFICIAL ULTRASOUND WITH DOPPLER OF LEFT LOWER EXTREMITY: Left great saphenous vein at the saphenofemoral junction measures 9 mm, at the proximal thigh 6 mm, at the mid thigh 3 mm, above the knee 4 mm, at the knee 4 mm, [id number] 2 mm, midcalf 2 mm and at the ankle measures 3 mm. Gross reflux is seen from just below the junction to below the knee with reflux times as high as 2.6 seconds. Duplicated Left Great Saphenous Vein: Lateral accessory saphenous is present that measures 4 mm with 1.1 seconds of reflux in the mid thigh. The left small saphenous vein measures 5 mm and shows no reflux. Accessory Vein of Giacomini: None Incompetent Perforators: There is a proximal small saphenous 3 mm reflector driller and deburrer present with 2.4 seconds of reflux. Varices Present: Varices as large as 3 mm with 2.6 seconds of reflux. US/US venous duplex LE BI IMPRESSION: 1. No evidence of reflux or thrombus in the common femoral veins or popliteal veins bilaterally. 2. Left great saphenous venous insufficiency from just below the junction to below the knee. Small amount of reflux seen in lateral accessory saphenous on the left. Varices as described above. Electronically signed by: Damian Bright MD 01/18/2024 11:25 AM EDT
== END 2024-01-14 07:51 | disposition home or self-care (01) ==
LOC: HO.US 07:50
PROVIDERS: PCP Internal Medicine; Visit Provider Surgery Vascular Surgery
DX: I83.12 Varicose veins of left lower extremity with inflammation (principal)
CPT/HCPCS: 93970

== ENCOUNTER 2024-01-27 10:15 | Outpatient (REF) | payer OTHER, SELFPAY ==
[2024-01-27 11:27] LABS: MANUAL DIFF FLAG NO
[2024-01-27 11:31] LABS: Basophils Absolute Auto 0.1 X10*3/uL (0.0-0.2); Basophils Percent Auto 0.8 % (0-2); Eosinophils Absolute Auto 0.3 X10*3/uL (0.0-0.4); Eosinophils Percent Auto 4.2 % (0-4); Hematocrit 43.5 % (37.0-47.0); Hemoglobin 14.1 g/dl (12.0-16.0); Imm Gran Abs Auto 0.03 X10*3/uL (0.00-0.03); Imm Gran Pct Auto 0.4 % (0.0-0.4); Lymphocytes Absolute Auto 1.9 X10*3/uL (1.2-4.9); Lymphocytes Percent Auto 24.7 % (20-40); Mean Corpuscular HGB Conc 32.4 g/dl (31.0-35.0); Mean Corpuscular Hemoglobin 27.6 pg (27.0-33.0); Mean Corpuscular Volume 85.3 fL (80.0-98.0); Monocytes Absolute Auto 0.8 X10*3/uL (0.1-1.2); Monocytes Percent Auto 10.2 % (2-11); Neutrophils Absolute Auto 4.7 x10*3/uL (2.0-8.3); Neutrophils Percent Auto 59.7 % (45-73); Platelet Count 219 X10*3/uL (160-400); Red Cell Distribution Width 13.2 % (11.0-16.0); White Blood Count 7.9 X10*3/uL (4.8-10.8)
[2024-01-27 12:03] LABS: Alanine Aminotransferase 11 U/L (0-31); Albumin Level 4.3 g/dL (3.5-5.0); Alkaline Phosphatase 94 U/L (39-117); Anion Gap 10 (12-20); Aspartate Amino Transferase 13 U/L (5-31); Bilirubin Direct 0.1 mg/dL (0.0-0.5); Bilirubin Total 0.5 mg/dL (0.0-1.0); Blood Urea Nitrogen 16 mg/dL (9-16); Calcium 9.5 mg/dL (8.4-10.2); Carbon Dioxide 30 mmol/L (22-29); Chloride 109 mmol/L (96-108); Cholesterol 222 mg/dL (<200); Estimated Glomerular Filt Rate 50; Glucose Random 136 mg/dL (60-115); HDL Cholesterol 54 mg/dL (>40); LDL Cholesterol Calculated 129 mg/dL (<100); Potassium 3.8 mmol/L (3.3-5.1); Sodium 145 mmol/L (135-145); Total Protein 7.4 g/dL (6.5-8.0); Triglycerides 195 mg/dL (<150)
[2024-01-27 12:21] LABS: ~HepC Num1 0.09 S/CO (0.00-0.79); ~Hepatitis C Antibody Nonreactive (Nonreactive)
[2024-01-27 12:24] LABS: TSH reflex Free T4 0.35 uIU/mL (0.32-4.0); Vitamin D 25-OH Total 87.2 ng/mL (>30)
[2024-01-27 12:41] LABS: Folate 11.3 ng/mL (> or = 4.0); Vitamin B12 1307 pg/mL (200-900)
[2024-01-30 16:12] LABS: HIV RNA PCR Qn Copies Not Detected Copies/mL; HIV RNA PCR Qn Log Copies Not Detected Log cps/mL; TS Negative Control Passed; TS Panel A 0; TS Panel B 0; TS Positive Control Passed; TSpotTB Negative (Negative)
== END 2024-01-27 10:16 | disposition home or self-care (01) ==
LOC: HO.HHCL 10:15
PROVIDERS: Visit Provider Internal Medicine
DX: Z00.00 Encounter for general adult medical examination without abnormal findings (principal); E11.22 Type 2 diabetes mellitus with diabetic chronic kidney disease; Z11.1 Encounter for screening for respiratory tuberculosis; N18.30 Chronic kidney disease, stage 3 unspecified; E03.9 Hypothyroidism, unspecified
CPT/HCPCS: 36415; 80048; 80061; 80076; 82306; 82607; 82746; 84443; 85025; 86481; 86803; 87536; 87900

== ENCOUNTER 2024-01-28 14:18 | Outpatient (AMB) | payer OTHER, SELFPAY ==
--- NOTE | 2024-01-28 14:24 | A.OFFVIS_ITS ---
Vital Signs 01/28/24 14:27 Height 5 ft 1 in Weight 169 lb 12.095 oz BMI 32.1 BP 136/82 Blood Pressure Location Rt brachial Position Sitting Pulse 70 Pulse Source Pulse Oximeter Intake Visit Reasons: T2DM Intake Note: Patient presents today to re-establish treatment for Type Diabetes Mellitus: Last Diabetic eye exam was on: February Last Podiatry exam was on: Does not see a Ocular Care Technologist Most recent HbA1c: 6.7%, 01/28/2024 Random Glucose- 212 mg/dL, Today Supervisor Slashing Department Required: Yes Supervisor Slashing Department Language: Convict Guard Services: Supervisor Slashing Department Present Supervisor Slashing Department Name: JAN Encarnacion/GAIL Ambriz Information Interpreted: non-clinical & clinical Accompanied by: Significant Other Allergies latex [LATEX] Allergy (Mild, Verified 01/28/24 14:26) RASH metformin Adverse Reaction (Verified 01/28/24 14:26) Unknown HPI Comments Details: 63 yo female presenting for diabetes follow up Medical history of depression, osteoporosis, right renal hydronephrosis, hypertension, hyperlipidemia, non toxic multinodular goiter She has DM type 2 diagnosed 20 years ago. Current prescription: Mounjaro 2.5 weekly. Previously on Lantus 15 units, Trulicity 1.5 mg q.week Jame 2-her reader is not working Reports concern for recently increase glucose readings. A1C today is 6.7%. She has been lower in the recent past. No hypoglycemia She has neuropathy, retinopathy, has CKD with creatinine worsening and sees nephrology 06/26/21 NO macrovascular disease. Eye exam UTD. stable retinopathy. MNG-last TSH 01/2024 in normal range. Her PCP ordered her thyroid u/s which is scheduled. She was advised to return to endocrinology if TSH became suppressed or any significant change in nodules. ROS CONSTITUTIONAL: Denies weight loss, fever and chills. HEENT: Denies changes in vision and hearing. RESPIRATORY: Denies SOB and cough. CV: Denies palpitations and CP GI: Denies abdominal pain, nausea, vomiting and diarrhea. : Denies dysuria and urinary frequency. MSK: Denies new myalgia and joint pain. SKIN: Denies rash and pruritus. NEUROLOGICAL: Denies headache PSYCHIATRIC: Denies recent changes in mood. PHYSICAL EXAM: GENERAL: Alert and oriented x 3. NAD EYES: EOMI. Anicteric. HENT: Moist mucous membranes. No scleral icterus. Heterogenous thyroid LUNGS: Clear to auscultation bilaterally. CARDIOVASCULAR: Regular rate and rhythm. No murmur. No JVD. ABDOMEN: Soft, non-tender +bs EXTREMITIES: No edema. Non-tender. SKIN: No rashes or lesions. Warm. NEUROLOGIC: No focal neurological deficits. CN II-XII grossly intact PSYCHIATRIC: Cooperative. 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 Distal radius fracture, right HTN (hypertension) Chronic kidney disease Diabetes type 2, uncontrolled Surgical History History of surgery S/P fine needle aspiration S/P laparoscopic sleeve gastrectomy History of esophagogastroduodenoscopy (EGD) H/O colonoscopy Hx of biopsy History of partial hysterectomy History of total right knee replacement History of total left knee replacement (~2010) Hx of cholecystectomy History of section History of carpal tunnel release (~2017) Family History Father Hypertension Diabetes History of kidney cancer Mother Diabetes Hypertension Heart disease Brother Hypertension Diabetes Brother No problems noted. Son Hypertension Prediabetes Heart disease Daughter Prediabetes Social History Household Members: Spouse Are you a primary health careers instructor to a significant other at home: No Do you presently have visiting nurse or other home services: Yes (VNA) Alcohol intake: never Patient Tobacco Use Status: Never used Tobacco Physical Exam Vital Signs: Last Vital Signs Pulse 70 01/28/24 14:27 BP 136/82 01/28/24 14:27 BMI result Body Mass Index 32.1 Results AMB Hemoglobin A1c AMB Hemoglobin A1c 6.7 % Last Edit by JAN Encarnacion on 01/28/24 15:02 Results Reviewed Results Reviewed: Laboratory Last Values Glucose (Clinic) 212 mg/dL (60-115) H 01/28/24 14:35 Assessment & Plan Assessment & Plan (1) Diabetic 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 with type 2 diabetes mellitus: Code(s): E11.42 - Type 2 diabetes mellitus with diabetic polyneuropathy Category: Medical Plan: A1C has increased. Can increase mounjaro to 5mg weekly Follow up in 3 months (2) prison (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 insulin: Code(s): Z79.4 - salvage determiner (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 insulin Category: Medical Plan: Discontinued following bariatric surgery (3) Toxic multinodul goiter: Code(s): E05.20 - Thyrotoxicosis with toxic multinodular goiter without thyrotoxic crisis or storm Category: Medical Plan: thyroid u/s pending. TSH wnl on recent labs Orders: Orders AMB Hemoglobin A1c Today E11.42 - Type 2 diabetes mellitus with diabetic polyneuropathy, E11.65 - Type 2 diabetes mellitus with hyperglycemia, Z79.4 - prison (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 insulin Medications: New tirzepatide (Mounjaro) 5 mg (0.5 mL) subcut QWEEK 6 mL 3RF Changed From flash glucose scanning reader (FreeStyle Jame 2 [place]) As directed 1 ea 0RF E11.42 - Type 2 diabetes mellitus with diabetic polyneuropathy To FreeStyle Jame 2 [place] (flash glucose scanning reader) As directed 1 ea 0RF NS E11.42 - Type 2 diabetes mellitus with diabetic polyneuropathy Refilled FreeStyle Jame 2 [place] (flash glucose scanning reader) As directed 1 ea 0RF NS E11.42 - Type 2 diabetes mellitus with diabetic polyneuropathy Coding Level of Care Code Est Pt Level 4 (04286) Diagnoses Diabetic 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 with type 2 diabetes mellitus E11.42 prison (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 insulin Z79.4 Toxic multinodul goiter E05.20
[2024-01-28 14:27] VITALS: BP 136/82; PULSE 70; BMI 32.1
[2024-01-28 14:41] LABS: Glucose, Whole Blood 212 mg/dL (60-115)
== END 2024-01-28 15:03 | disposition home or self-care (01) ==
PROVIDERS: PCP Internal Medicine; Visit Provider Internal Medicine
DX: E11.42 Type 2 diabetes mellitus with diabetic polyneuropathy (principal); Z79.4 Long term (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 insulin; E05.20 Thyrotoxicosis with toxic multinodular goiter without thyrotoxic crisis or storm; E11.65 Type 2 diabetes mellitus with hyperglycemia

== ENCOUNTER → 2024-01-28 14:18 | Outpatient (BNVA) | payer OTHER, SELFPAY | PROVIDERS: PCP Internal Medicine; Visit Provider Internal Medicine | DX: E11.42 Type 2 diabetes mellitus with diabetic polyneuropathy (principal); E11.65 Type 2 diabetes mellitus with hyperglycemia; E11.319 Type 2 diabetes mellitus with unspecified diabetic retinopathy without macular edema; E11.22 Type 2 diabetes mellitus with diabetic chronic kidney disease; N18.9 Chronic kidney disease, unspecified; E78.5 Hyperlipidemia, unspecified; E05.20 Thyrotoxicosis with toxic multinodular goiter without thyrotoxic crisis or storm; Z79.4 Long term (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 insulin; Z79.899 Other long term (current) drug therapy | CPT/HCPCS: 82947; 83036; 99212 ==

== ENCOUNTER 2024-01-29 10:09 | Outpatient (AMB) | payer OTHER, SELFPAY ==
[2024-01-29 10:11] VITALS: BMI 31.9
--- NOTE | 2024-01-29 10:11 | A.OFFVIS_ITS ---
Vital Signs 01/29/24 10:11 Height 5 ft 1 in Weight 169 lb BMI 31.9 Intake Visit Reasons: Follow Up 01/13 US Intake Note: follow up US 01/14/24. Pt states Left LE is worse than the right LE. Pt states she has pain,burning and swelling Scoop Machine Operator Required: Yes Scoop Machine Operator Language: Finishing Supervisor Services: Scoop Machine Operator Present Scoop Machine Operator Name: [id number] Information Interpreted: clinical only Accompanied by: Family/Other Allergies latex [LATEX] Allergy (Mild, Verified 01/29/24 10:20) RASH metformin Adverse Reaction (Verified 01/29/24 10:20) Unknown HPI HPI Follow Up 01/13 US: Details: Very pleasant 63-year-old female presents for follow-up regarding venous disease. Complaints include pain over varicosities swelling cramping and fatigue. She reports that it is left more so than right. She has had a trial of compression stockings with minimal relief. She now presents for follow-up with venous insufficiency testing. 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 Distal radius fracture, right HTN (hypertension) Chronic kidney disease Diabetes type 2, uncontrolled Surgical History History of surgery S/P fine needle aspiration S/P laparoscopic sleeve gastrectomy History of esophagogastroduodenoscopy (EGD) H/O colonoscopy Hx of biopsy History of partial hysterectomy History of total right knee replacement History of total left knee replacement (~2010) Hx of cholecystectomy History of section History of carpal tunnel release (~2017) Family History Father Hypertension Diabetes History of kidney cancer Mother Diabetes Hypertension Heart disease Brother Hypertension Diabetes Brother No problems noted. Son Hypertension Prediabetes Heart disease Daughter Prediabetes Social History Household Members: Spouse Are you a primary care management assistant to a significant other at home: No Do you presently have visiting nurse or other home services: Yes (VNA) Alcohol intake: never Patient Tobacco Use Status: Never used Tobacco Review of Systems Const Reports as per HPI ENT Reports no additional complaints Card Denies chest pain, Denies chest pain at rest and Denies chest pain with activity Resp Denies chest congestion and Denies cough GI Reports no additional complaints Musc Details: pain over varicosities, aching of lower extremities, swelling, cramping, heaviness and tiredness, itching Denies abnormal gait Skin/Breast Reports pruritus and Denies wounds Neuro Reports no additional complaints and Denies abnormal gait Psych Denies no additional complaints Physical Exam Vital Signs: BMI result Body Mass Index 31.9 Const General: cooperative, healthy appearing and comfortable Orientation/consciousness: oriented to person, oriented to place and oriented to time Neck Carotids: no bruits Chest Chest palpation & inspection: normal inspection of the chest and normal palpation of entire chest wall Resp Effort & Inspection: normal respiratory effort and able to speak in complete sentences Cardio Rate: regular rate Heart sounds: S1 normal heart sound present and S2 normal heart sound present Peripheral pulses: Peripheral pulses 2+ throughout GI Inspection: Yes normal to inspection Skin Other: +2 edema, large rope-like varicosities greater than 4 mm CEAP Classification C4 - skin color changes Ep - Etiology Primary As - superficial veins P - reflux General skin exam: dry skin Neuro General: oriented to person, oriented to place and oriented to time Extrem Right lower extremity: full ROM, normal capillary refill and edema Left lower extremity: full ROM, normal capillary refill and edema Psych Mental Status: mental status grossly normal Results Reviewed Results Reviewed: Brief summary of venous insufficiency testing is as follows: right great saphenous vein: negative right small saphenous vein: negative right accessory vein: none present left great saphenous vein: Positive left small saphenous vein: negative left accessory vein: none present Please note there is no evidence of any venous aneurysms or significant tortuosity Assessment & Plan Assessment & Plan (1) Varicose veins of left lower extremity with inflammation: Code(s): I83.12 - Varicose veins of left lower extremity with inflammation Category: Medical Plan: This patient has varicose veins with inflammation. They continue to be a source of discomfort for the patient. The patient has tried conservative treatment with compression, leg elevation and exercise program for over 3 months time. They have been compliant with all treatment. This has provided minimal relief for the patient. I do not anticipate this course of treatment will alter the underlying etiology. The patient has been scheduled for lower extremity venous treatment inclusive of --- left great saphenous vein Cyanoacralate ablation. Risks, benefits, and complications of this procedure has been discussed in detail with the patient including but not limited to bleeding, inf ection, and the development of a DVT. The patient has demonstrated a clear understanding and has consented. We will schedule the patient as soon as possible. Thank you for allowing us to participate in this patient's care. If there are any questions or concerns please do not hesitate to contact us. Coding Level of Care Code Est Pt Level 4 (76365) Diagnoses Varicose veins of left lower extremity with inflammation I83.12
== END 2024-01-29 10:53 | disposition home or self-care (01) ==
PROVIDERS: PCP Internal Medicine; Visit Provider Surgery Vascular Surgery
DX: I83.12 Varicose veins of left lower extremity with inflammation (principal)
CPT/HCPCS: 99214

== ENCOUNTER → 2024-01-29 10:09 | Outpatient (BNVA) | payer OTHER, SELFPAY | PROVIDERS: PCP Internal Medicine; Visit Provider Surgery Vascular Surgery | DX: I83.12 Varicose veins of left lower extremity with inflammation (principal); I83.812 Varicose veins of left lower extremity with pain | CPT/HCPCS: 99212 ==

== ENCOUNTER 2024-02-03 11:24 | Outpatient (REF) | payer OTHER, SELFPAY ==
[2024-02-03 12:47] LABS: Anion Gap 14 (12-20); Blood Urea Nitrogen 20 mg/dL (9-16); Calcium 9.9 mg/dL (8.4-10.2); Carbon Dioxide 28 mmol/L (22-29); Chloride 108 mmol/L (96-108); Estimated Glomerular Filt Rate 43; Glucose Random 109 mg/dL (60-115); Potassium 4.1 mmol/L (3.3-5.1); Sodium 146 mmol/L (135-145)
== END 2024-02-03 11:25 | disposition home or self-care (01) ==
LOC: HO.LAB 11:24
PROVIDERS: PCP Internal Medicine; Visit Provider Internal Medicine Nephrology
DX: E11.22 Type 2 diabetes mellitus with diabetic chronic kidney disease (principal); I12.9 Hypertensive chronic kidney disease with stage 1 through stage 4 chronic kidney disease, or unspecified chronic kidney disease; N18.32 Chronic kidney disease, stage 3b
CPT/HCPCS: 36415; 80048

== ENCOUNTER 2024-02-16 10:14 | Outpatient (REF) | payer OTHER, SELFPAY | END 2024-02-16 10:15 | disposition home or self-care (01) | LOC: HO.US 10:14 | PROVIDERS: PCP Internal Medicine; Visit Provider Internal Medicine | DX: E04.1 Nontoxic single thyroid nodule (principal) | CPT/HCPCS: 76536 ==

== ENCOUNTER 2024-02-27 07:01 | Outpatient (AMB) | payer OTHER, SELFPAY ==
[2024-02-27 07:33] VITALS: BMI 31.9
--- NOTE | 2024-02-27 07:33 | MHC.OFFVIS ---
Vital Signs 02/27/24 07:33 Height 5 ft 1 in Weight 169 lb BMI 31.9 Intake Visit Reasons: Left GSV Venaseal Accompanied by: Self / Same As Patient Allergies latex [LATEX] Allergy (Mild, Verified 02/27/24 07:35) RASH metformin Adverse Reaction (Verified 02/27/24 07:35) Unknown [facility] Medical History Anxiety Depression GERD (gastroesophageal reflux disease) COVID-19 vaccine series completed Tachycardia Toxic multinodul goiter Chronic renal insufficiency Nephrolithiasis Cyst, kidney, acquired Diabetic neuropathy BMI 34.0-34.9,adult BMI 35.0-35.9,adult BMI 36.0-36.9,adult Pre-op evaluation B12 deficiency Obesity (BMI 30-39.9) Non-toxic multinodular goiter Dyslipidemia Diabetic 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 with type 2 diabetes mellitus group home (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 insulin Distal radius fracture, right HTN (hypertension) Chronic kidney disease Diabetes type 2, uncontrolled Surgical History History of surgery S/P fine needle aspiration S/P laparoscopic sleeve gastrectomy History of esophagogastroduodenoscopy (EGD) H/O colonoscopy Hx of biopsy History of partial hysterectomy History of total right knee replacement History of total left knee replacement (~2010) Hx of cholecystectomy History of section History of carpal tunnel release (~2017) Family History Father Hypertension Diabetes History of kidney cancer Mother Diabetes Hypertension Heart disease Brother Hypertension Diabetes Brother No problems noted. Son Hypertension Prediabetes Heart disease Daughter Prediabetes Social History Household Members: Spouse Are you a primary adult live in caregiver to a significant other at home: No Do you presently have visiting nurse or other home services: Yes ([facility]) Alcohol intake: never Patient Tobacco Use Status: Never used Tobacco Physical Exam Vital Signs: BMI result Body Mass Index 31.9 Office Procedures Vascular Office Procedure Details Details: Diagnosis: Left Leg varicose veins with inflammation Procedure: Endovenous Ablation of the left Great Saphenous Vein with VenaSeal Closure System Anesthesia: Local infiltration 5 cc, Estimated Blood Loss: min Specimen: none Duplex ultrasound was used to map out the insufficient saphenous vein, and access was determined and marked on the overlying skin. The depth and diameter of the vein(s) to be treated was documented. The patient was placed supine on the procedure table and the leg was prepped and draped using sterile technique. Ultasound guidance was again used to localize the access site. 1% lidocaine was injected as a local anesthetic in the subcutaneous tissues at the target location in the GSV in the lower leg. Using ultrasound guidance, access was gained at this location with the 19 gauge thin walled access needle and followed by introduction of a short guidewire, location confirmed with ultrasound. A small, 3 mm incision was made at the access site to allow for introduction and placement of the 7 Fr x7cm introducer/dilator. The dilator and guidewire were removed. The 0.035 guidewire from the VenaSeal kit was then introduced and positioned at the saphenofemoral junction using ultrasound guidance. The 80 cm 7 Fr introducer sheath/dilator was positioned 5cm from the saphenofemoral junction. The guidewire and dilator were removed, and the remaining sheath was flushed with sterile saline, with the syringe remaining in place prior to the next steps. The cyanoacrylate adhesive was precisely primed into the 5 F delivery catheter and this catheter/syringe combination was attached within the dispenser gun. This assembly was introduced through the 7F sheath and positioned 5 cm caudal of the saphenofemoral junction under ultrasound guidance. The steps from the IFU were followed for dispensing amounts, locations and compression times, 2 aliquots proximally with 3 minutes of compression, and 1 aliquot every 3 cm distally with 30 sec of compression along the course of the vessel. Following the last injection and compression sequence, the catheter and introducer sheath were pulled out from the access site. Hemostasis was achieved with manual compression and an adhesive bandage was applied to the incision. Ultrasound confirmed complete coaptation and closure of the treated segments of the GSV, and the absence of any DVT at the saphenofemoral junction. Treatment time was approximately 6 minutes and the vein length treated was 32 cm. The drapes were removed and the patient cleaned and prepared for discharge. Post op ultrasound check is scheduled for 48-72 hours and the patient was given written post-op instructions. 29165 - Endoven Ther Chem Adhes 1st All charges added?: Procedure code (CPT) selection complete Assessment & Plan Assessment & Plan (1) Varicose veins of left lower extremity with inflammation: Comment: 02/27/2024 - left great saphenous vein Cyanoacralate ablation Code(s): I83.12 - Varicose veins of left lower extremity with inflammation Category: Medical Plan: See op note Coding Level of Care Code Est Pt Level 4 (18154) Diagnoses Varicose veins of left lower extremity with inflammation I83.12 CPT Codes Details - Vascular 3: 01645 - Endoven Ther Chem Adhes 1st ([id number])
== END 2024-02-27 08:37 | disposition home or self-care (01) ==
PROVIDERS: PCP Internal Medicine; Visit Provider Surgery Vascular Surgery
DX: I83.12 Varicose veins of left lower extremity with inflammation (principal)
CPT/HCPCS: 36482

== ENCOUNTER → 2024-02-27 07:01 | Outpatient (BNVA) | payer OTHER, SELFPAY | PROVIDERS: PCP Internal Medicine; Visit Provider Surgery Vascular Surgery | DX: I83.12 Varicose veins of left lower extremity with inflammation (principal) | CPT/HCPCS: 36482; J2003 ==

== ENCOUNTER 2024-03-01 13:10 | Outpatient (REF) | payer OTHER, SELFPAY ==
--- NOTE | ~2024-03-01 | US_ITS ---
EXAMINATION: US TRIPLEX LOWER EXTREMITY, LEFT CLINICAL INFORMATION: Status post left venaseal COMPARISON: None available. TECHNIQUE: Color-flow triplex imaging with spectral analysis and compression Doppler were performed on the left lower extremity. FINDINGS: Respiratory variation, normal compression and augmented flow are noted throughout the left lower extremity. The visualized common femoral vein, superficial femoral vein, profunda femoral vein, popliteal vein and midcalf peroneal and posterior tibial venous segments show no evidence of deep venous thrombosis. There is no Oscar's cyst. The visualized GSV appears appropriately thrombosed. US/US venous duplex LE LT IMPRESSION: No evidence of deep venous thrombosis involving the left lower extremity. The visualized GSV appears appropriately thrombosed. Electronically signed by: Angelo Stiles MD 03/01/2024 01:58 PM EDT
== END 2024-03-01 13:11 | disposition home or self-care (01) ==
LOC: HO.US 13:10
PROVIDERS: PCP Internal Medicine; Visit Provider Surgery Vascular Surgery
DX: M79.605 Pain in left leg (principal)
CPT/HCPCS: 93971

== ENCOUNTER 2024-03-09 13:15 | Outpatient (REF) | payer OTHER, SELFPAY ==
--- NOTE | ~2024-03-09 | MM_ITS ---
EXAMINATION: MM SCREENING DIGITAL BREAST TOMOSYNTHESIS, BILATERAL CLINICAL INFORMATION: Screening. Asymptomatic. COMPARISON: Mammography: Comparison is made with available priors TECHNIQUE: Digital breast mammography with tomosynthesis is performed in both the craniocaudal and mediolateral oblique views along with computer-aided detection (CAD). FINDINGS: There are scattered areas of fibroglandular density (ACR BI-RADS breast composition Category b). There are no significant masses, abnormal calcifications, or other abnormalities. MM/MM tomosynthesis screening BI IMPRESSION: No mammographic evidence of malignancy. ASSESSMENT: BI-RADS BI-RADS 1 - Negative RECOMMENDATION: Routine annual mammography screening. 1 year F/U This examination should not preclude the clinical evaluation of a suspicious palpable abnormality. This patient's information was entered into a reminder system with a target due date for their next mammogram. Electronically signed by: Amy Lu DO 03/17/2024 01:52 PM LINDA
== END 2024-03-09 13:16 | disposition home or self-care (01) ==
LOC: HO.MAMMO 13:15
PROVIDERS: PCP Internal Medicine; Visit Provider Internal Medicine
DX: Z12.31 Encounter for screening mammogram for malignant neoplasm of breast (principal)
CPT/HCPCS: 77063; 77067

== ENCOUNTER → 2024-03-09 14:00 | Outpatient (BNV) | payer OTHER, SELFPAY | PROVIDERS: PCP Internal Medicine; Visit Provider Internal Medicine | DX: Z12.31 Encounter for screening mammogram for malignant neoplasm of breast (principal) | CPT/HCPCS: 77063; 77067 ==

== ENCOUNTER 2024-03-22 10:52 | Outpatient (AMB) | payer OTHER, SELFPAY ==
--- NOTE | 2024-03-22 10:54 | A.OFFVIS_ITS ---
VS Expanded 03/22/24 11:05 BP 142/79 H Blood Pressure Location Rt brachial Blood Pressure Position Sitting Pulse 75 Pulse Source Pulse Oximeter Temp 96.0 F L Temperature Source Temporal Artery Scan Pulse Oximetry 95 Oxygen Delivery Method Room Air Height 5 ft 1 in Weight 159 lb 6.4 oz BMI 30.1 Body Fat % 33.5 Body Fat Mass 53.4 Fat Free Mass 106.0 Visceral Fat Rating 9.0 Body Water % 47.0 Body Water Mass 75.0 Muscle Mass/Score 100.8 Basal Metabolic Rate/Score 1,426 Intake Visit Reasons: (OV) PO LSG 08/22/21 Paint Prep Technician Required: Yes Paint Prep Technician Name: Alba [id number] Information Interpreted: clinical only Allergies latex [LATEX] Allergy (Mild, Verified 03/22/24 11:00) RASH metformin Adverse Reaction (Verified 03/22/24 11:00) Unknown Medication List - Last Reconciled 03/22/24 by MADAN Nelson amlodipine 10 mg PO DAILY blood sugar diagnostic (OneTouch Ultra Test strips) As directed 3 times a day blood sugar diagnostic As directed blood-glucose meter (OneTouch Ultra2 Meter) As directed clotrimazole 1% 1 appl topical BID diphenhydramine HCl (Benadryl) 25 mg PO TID PRN docusate sodium 100 mg PO BID flash glucose sensor (FreeStyle Jame 2 Sensor kit) USE DIRECTED TO TEST BLOOD SUGAR. CHANGE EVERY 10 DAYS fluoxetine 40 mg PO DAILY fluticasone propionate 50 mcg/actuation 1 spray intranasal DAILY PRN FreeStyle Jame 2 [place] (flash glucose scanning reader) As directed NS gabapentin 400 mg PO DAILY hydrocortisone 1% (Anti-Itch (hydrocortisone)) 1 appl topical BID PRN inulin (Fiber Gummies) 2 grams PO DAILY lancets As directed lisinopril 40 mg PO DAILY lorazepam 0 mg PO meloxicam 15 mg PO DAILY metoprolol succinate ER 50 mg PO DAILY metoprolol tartrate 25 mg PO BID pen needle, diabetic (Comfort EZ Pen [place]) As directed injects once a day sennosides (senna) 8.6 mg PO DAILY tirzepatide (Mounjaro) 5 mg (0.5 mL) subcut QWEEK trazodone 50 - 150 mg PO BEDTIME PRN HPI Comments Details: This?is a?63?yo female who is s/p LSG 08/22/2021. Presents for 2 year 7 month post op visit. Weight loss of 2.6lbs since last OV 4 months ago.? No complaints of nausea, emesis, abdominal pain or reflux. Uses senna for constipation. Pt continues on Mounjaro prescribed by a weight management provider (Griffin Cuellar NP). Blood sugars are well controlled, pt has continuous glucose monitor. Checks BP at home, continues on lisinopril and amlodipine. Present meal plan includes: 2 Celebrate shakes- one in morning, one at night, each with 2 scoop in 8oz unsweetened almond milk 1 Celebrate protein bar 1 small meal of 2 forkfuls protein (cannot tolerate more, makes her sick), plus veg sometimes difficulty with meats (gets a stuck feeling) but tolerates eggs, yogurt without difficulty Exercise routine includes: walking on treadmill, upper body strength training 3 days a week for 60-90 minutes Pt reports problems of excess skin of abdomen and arms. Gets burning painful rashes in skin folds. Uses clotrimazole but this do not completely resolve the rashes. Has also been using a belt/binder to hold excess skin of abdomen in place. Excess skin of arms is heavy, uncomfortable. She gets chafing of upper arms due to skin rubbing against body and has to wear longer sleeves to prevent friction. Was seen by [facility], planned for panniculectomy in July. 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 Distal radius fracture, right HTN (hypertension) Chronic kidney disease Diabetes type 2, uncontrolled Surgical History History of surgery S/P fine needle aspiration S/P laparoscopic sleeve gastrectomy History of esophagogastroduodenoscopy (EGD) H/O colonoscopy Hx of biopsy History of partial hysterectomy History of total right knee replacement History of total left knee replacement (~2010) Hx of cholecystectomy History of section History of carpal tunnel release (~2018) Family History Father Hypertension Diabetes History of kidney cancer Mother Diabetes Hypertension Heart disease Brother Hypertension Diabetes Brother No problems noted. Son Hypertension Prediabetes Heart disease Daughter Prediabetes Social History Household Members: Spouse Are you a primary assistant child care teacher to a significant other at home: No Do you presently have visiting nurse or other home services: Yes ([facility]) Alcohol intake: never Patient Tobacco Use Status: Never used Tobacco Physical Exam Vital Signs: Last Vital Signs Temp 96.0 F L 03/22/24 11:05 Pulse 75 03/22/24 11:05 BP 142/79 H 03/22/24 11:05 Pulse Ox 95 03/22/24 11:05 Oxygen Delivery Method Room Air 03/22/24 11:05 BMI result Body Mass Index 30.1 Assessment & Plan Assessment & Plan (1) S/P laparoscopic sleeve gastrectomy: Comment: 08/22/21 Code(s): Z98.84 - Bariatric surgery status Category: Medical (2) Obese: Code(s): E66.9 - Obesity, unspecified Category: Medical Plan Pt doing well on Mounjaro, healthy body fat %, high muscle mass, continues to lose weight. Will contact [facility] regarding the possibility of having brachioplasty as well. RTC in August for annual. I spent a total of 30 minutes reviewing/updating records, examining the patient and counseling the patient on weight management as detailed above.
[2024-03-22 11:05] VITALS: BP 142/79; PULSE 75; TEMP 35.6; O2SAT 95; BMI 30.1
== END 2024-03-22 11:22 | disposition home or self-care (01) ==
PROVIDERS: PCP Internal Medicine; Visit Provider Physician Assistant Surgical
DX: E66.811 Obesity, class 1 (principal); E66.9 Obesity, unspecified; Z68.30 Body mass index [BMI] 30.0-30.9, adult; Z98.84 Bariatric surgery status
CPT/HCPCS: 99214; G2211

== ENCOUNTER → 2024-03-22 10:52 | Outpatient (BNVA) | payer OTHER, SELFPAY | PROVIDERS: PCP Internal Medicine; Visit Provider Physician Assistant Surgical | DX: E66.9 Obesity, unspecified (principal); Z71.3 Dietary counseling and surveillance; Z98.84 Bariatric surgery status; Z68.30 Body mass index [BMI] 30.0-30.9, adult | CPT/HCPCS: 99212 ==

== ENCOUNTER 2024-04-06 12:34 | Outpatient (AMB) | payer OTHER, SELFPAY ==
--- NOTE | 2024-04-06 12:57 | MHC.OFFVIS ---
Intake Visit Reasons: Follow Up Venaseal Intake Note: Patient presents for follow up venaseal. Patient states she feels good , no complaints. Allergies latex [LATEX] Allergy (Mild, Verified 04/06/24 13:01) RASH metformin Adverse Reaction (Verified 04/06/24 13:01) Unknown HPI HPI Follow Up Venaseal: Details: Very pleasant 63-year-old female presents for follow-up status post left lower extremity ablation. She reports in general her legs feel significantly better. Swelling and discomfort have significantly decreased. She now presents for routine postprocedure follow-up. Of note postprocedure ultrasound is negative for DVT. [facility] Medical History Anxiety Depression GERD (gastroesophageal reflux disease) COVID-19 vaccine series completed Tachycardia Toxic multinodul goiter Chronic renal insufficiency Nephrolithiasis Cyst, kidney, acquired Diabetic neuropathy BMI 34.0-34.9,adult BMI 35.0-35.9,adult BMI 36.0-36.9,adult Pre-op evaluation B12 deficiency Obesity (BMI 30-39.9) Non-toxic multinodular goiter Dyslipidemia Diabetic 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 with type 2 diabetes mellitus snf (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 insulin Distal radius fracture, right HTN (hypertension) Chronic kidney disease Diabetes type 2, uncontrolled Surgical History History of surgery S/P fine needle aspiration S/P laparoscopic sleeve gastrectomy History of esophagogastroduodenoscopy (EGD) H/O colonoscopy Hx of biopsy History of partial hysterectomy History of total right knee replacement History of total left knee replacement (~2010) Hx of cholecystectomy History of section History of carpal tunnel release (~2017) Family History Father Hypertension Diabetes History of kidney cancer Mother Diabetes Hypertension Heart disease Brother Hypertension Diabetes Brother No problems noted. Son Hypertension Prediabetes Heart disease Daughter Prediabetes Social History Household Members: Spouse Are you a primary personal care attendant to a significant other at home: No Do you presently have visiting nurse or other home services: Yes ([facility]) Alcohol intake: never Patient Tobacco Use Status: Never used Tobacco Review of Systems Const All systems reviewed & are unremarkable except as noted in HPI and below Reports no additional complaints ENT Reports Normal hearing present Card Denies chest pain, Denies chest pain at rest, Denies chest pain with activity and Denies pedal edema Resp Denies cough GI Denies abdominal pain Musc Denies abnormal gait, Denies muscle cramps and Denies radiating pain into limb Skin/Breast Denies skin ulcer and Denies wounds Neuro Reports Normal hearing present and Denies abnormal gait Psych Reports no additional complaints Physical Exam Const General: cooperative, healthy appearing and comfortable Orientation/consciousness: oriented to person, oriented to place and oriented to time HEENT Head: Yes normal to inspection Neck Neck: Yes normal visual inspection Carotids: no bruits Chest Chest palpation & inspection: normal inspection of the chest Resp Effort & Inspection: normal respiratory effort and able to speak in complete sentences Auscultation: clear to auscultation bilaterally, no crackles, no rales, no rhonchi and no wheezes Cardio Rate: regular rate Rhythm: regular rhythm Heart sounds: S1 normal heart sound present and S2 normal heart sound present Bruits: no carotid bruits Peripheral pulses: Peripheral pulses 2+ throughout GI Inspection: Yes normal to inspection Skin Wounds: no wounds Hair: normal Neuro General: oriented to person, oriented to place and oriented to time Cranial nerves: Yes CN's II-XII intact bilaterally and Yes Normal hearing present Cognition (Neuro): normal cognition Motor exam (neuro): 5/5 motor strength present throughout Extrem Other: venous exam: No significant superficial varicosities or spider telangiectasias, minimal edema General: No clubbing, No cyanosis and No edema Psych Appearance: grossly normal Mental Status: mental status grossly normal Speech and movement: Normal speech and movement present Assessment & Plan Assessment & Plan (1) Varicose veins of left lower extremity with inflammation: Comment: 02/27/2024 - left great saphenous vein Cyanoacralate ablation Code(s): I83.12 - Varicose veins of left lower extremity with inflammation Category: Medical Plan: The patient has done extremely well with all venous treatments. Patient's may often experience postprocedure phlebitic episodes and I have discussed with the patient use of warm compresses and NSAIDS if tolerated for pain discomfort. In addition, I have discussed continued conservative measures including use of compression, leg elevation, and exercise. The patient was also given an information sheet regarding appropriate use of compression stockings and future purchases. Thank you for allowing us to care for your patient with venous disease. Coding Level of Care Code Est Pt Level 3 (46673) Diagnoses Varicose veins of left lower extremity with inflammation I83.12
--- OUTSIDE RECORDS SUMMARY | 2024-04-13 13:49 | XMS_ITS ---
Author Organization [facility] Address [address] [place] [address] Care Team Providers Care Diesel Electrician Name Role Phone BHUMIKA BUSTOS Unavailable [phone] Encounters Encounter Location Date Provider Diagnosis [facility] [address] [place] [address] 12/04/2023 BHUMIKA BUSTOS PLAN OF TREATMENT No Information Progress Notes * Coleen BERMANsDOB: [birth year] (63 yo F)Acc No.[id number]:12/04/2023 Patient:??Rosie BERMAN :1960?Age:63 Y?Sex:Fe male Address:[address] [place] [id number] * true * Date:??
--- OUTSIDE RECORDS SUMMARY | 2024-04-13 13:49 | XMS_ITS | Continuity of Care Document ---
Author Organization [facility] Kat ronel Address [address] [place] [address] ve [address] [place] [address]- Care Team Providers Care Fire Lieutenant Marine Name Role Phone Mateo Freeman MD, Ginette Carty Primary Care Physici [id number] Date[facility]s): [facility]/16/24 - 03/23/24 [facility] [address] [address]- Attending Physician: Hayes Cooley MD Referring Physician: Indira SIDDIQI [facility] Encounter Type: Office Visit Allergies, Adverse Reactions, Alerts Substance Criticality Severity Reaction Reaction Severity Status Latex Rash Active Immunizations Given and Recorded Vaccine Date Status Refusal Reason RSV vaccine, preF A-preF B, recombinant 07/04/23 R ecorded influenza virus vaccine, inactivated 01/30/23 Filiberto rded influenza virus vaccine, inactivated 02/05/22 Filiberto rded influenza virus vaccine, inactivated 01/24/20 Filiberto rded influenza virus vaccine, inactivated 04/21/19 Give n influenza virus vaccine, inactivated 01/09/16 Filiberto rded influenza virus vaccine, inactivated 02/04/15 Filiberto rded zoster vaccine, inactivated 11/02/21 Recorded zoster vaccine, inactivated 07/23/21 Recorded SARS-CoV-2 (COVID-19) mRNA-1273 vaccine 04/19/21 R ecorded SARS-CoV-2 (COVID-19) Ad26 vaccine 07/26/20 Record ed Medications acetaminophen 325 mg oral tablet 650 mg, By Mouth, Every 6 hours, Refills 0, Maintenance, 01/21/19 10:24:09 AM EDT Start Date: 01/21/19 Status: Ordered Repeat number: 1 alendronate 70 mg oral tablet 1 tablet, By Mouth, Every Friday, # 12 tablet, 2 Refills, Maintenance, 07/05/20 1:44:00 PM EST, [facility], 154.9, cm, 01/26/20 13:53:00 EDT, Height, 83.9, kg, 01/20/19 5:07:00 EDT, Dry Weight Start Date: 07/05/20 Status: Ordered Quantity: 12.0 Unit: tablet Repeat number: 3 amLODIPine 10 mg oral tablet 1 tablet, By Mouth, Daily, # 90 tablet, 1 Refills, Maintenance, 04/15/23 7:30:00 PM EST, [facility] #[id number], 155, cm, 04/04/23 11:33:00 EST, Height Start Date: 04/15/23 Status: Ordered Quantity: 90.0 Unit: tablet Repeat number: 2 atorvastatin 20 mg oral tablet 1 tablet, By Mouth, Daily, # 90 tablet, 1 Refills, Maintenance, 01/28/20 4:12:00 PM EDT, [facility], 154.9, cm, 01/26/20 13:53:00 EDT, Height, 83.9, kg, 01/20/19 5:07:00 EDT, Dry Weight Start Date: 01/28/20 Status: Ordered Quantity: 90.0 Unit: tablet Repeat number: 2 D 1000 IU oral tablet 1 tablet, By Mouth, Daily, # 90 tablet, 1 Refills, Maintenance, 08/07/20 4:16:00 PM EDT, [facility], 154.9, cm, 01/26/20 13:53:00 EDT, Height, 83.9, kg, 01/20/19 5:07:00 EDT, Dry Weight Start Date: 08/07/20 Status: Ordered Quantity: 90.0 Unit: tablet Repeat number: 2 D 1000 IU oral tablet See Instructions, TAKE 1 TABLET BY MOUTH ONCE A DAY, # 90 tablet, 1 Refills, Maintenance, [facility], 154.9, cm, 01/26/20 13:53:00 EDT, Height, 83.9, kg, 01/20/19 5:07:00 EDT, Dry Weight Start Date: 08/07/20 Status: Ordered Quantity: 90.0 Unit: tablet Repeat number: 2 FLUoxetine 20 mg oral capsule 1, capsule, By Mouth, Daily, # 180 capsule, Refills 1, Tot. Refills 0, Maintenance, 08/24/20 7:16:00AM EDT, Route to Pharmacy Electronically, [facility], 154.9, cm, 01/26/20 13:53:00 EDT, Height, 83.9, kg, 01/20/19 5:07:00 EDT, Dry Weight Start Date: 08/24/20 Status: Ordered Quantity: 180.0 Unit: capsule Repeat number: 1 fluticasone 50 mcg/inh nasal spray See Instructions, SHAKE LIQUID AND USE 2 SPRAYS IN EACH NOSTRIL EVERY MORNING, # 48 Gm, 3 Refills, 04/15/23 7:29:00 PM EST, [facility] #[id number], 30, SHAKE LIQUID AND USE 2 SPRAYS IN EACH NOSTRIL EVERY MORNING, 155, cm, 04/04/23 11:33:00 EST, Height Start Date: 04/15/23 Status: Ordered Quantity: 48.0 Unit: g Repeat number: 4 Freestyle Lancets See Instructions, # 300 each, Refills 1, Tot. Refills 1, Maintenance, Use as directed twice a day Dx: E 11.9, 05/17/20 12:23:00 PM EST, [facility], 154.9, cm, 01/26/20 13:53:00 EDT, Height, 83.9, kg, 01/20/19 5:07:00 EDT, Dry Weight Start Date: 05/17/20 Status: Ordered Quantity: 300.0 Unit: each Repeat number: 2 Freestyle Jame 2 Sensor Freestyle Jame 2 Sensor, See Instructions, # 2 each, Refills 3, Tot. Refills 3, Maintenance, Checkblood sugar before meals. Dx: E11.65 on insulin, 06/19/23 7:02:00 AM EST, Supply, 155, cm, 04/04/23 11:33:00 EST, Height Start Date: 06/19/23 Status: Ordered Quantity: 2.0 Unit: each Repeat number: 4 FREESTYLE LITE LANCETS 33G FREESTYLE LITE LANCETS 33G, See Instructions, # 300 each, Refills 1, Tot. Refills 1, Maintenance, USE TO TEST BLOOD SUGAR TWICE DAILY, 08/12/22 2:36:00 PM EDT, DX E11.9, Supply, 154.9, cm, 08/07/22 13:19:00 EDT, Height Start Date: 08/12/22 Status: Ordered Quantity: 300.0 Unit: each Repeat number: 2 FREESTYLE LITE TEST STRIPS FREESTYLE LITE TEST STRIPS, See Instructions, # 300 each, Refills 1, Tot. Refills 1, Maintenance, USE TO TEST BLOOD SUGAR TWICE DAILY, 08/12/22 2:37:00 PM EDT, DX E11.9, Supply, 154.9, cm, 08/07/22 13:19:00 EDT, Height Start Date: 08/12/22 Status: Ordered Quantity: 300.0 Unit: each Repeat number: 2 furosemide 20 mg oral tablet See Instructions, TAKE 1 TABLET BY MOUTH ONCE A DAY, # 90 tablet, Refills 0, Instructions Replace Required Details, [facility] to [facility], [email or web address], 154.9, cm, 01/26/20 13:53:00 EDT, Height, 83.9, kg, 01/20/19 5:07:00 EDT, Dry Weight Start Date: 08/23/20 Status: Ordered Quantity: 90.0 Unit: tablet Repeat number: 1 gabapentin 400 mg oral capsule 1, capsule, By Mouth, Daily at bedtime, # 90 capsule, Refills 1, Tot. Refills 1, Maintenance, 05/22/21 2:58:00 PM EST, Route to Pharmacy Electronically, [facility] #[id number], 154.9, cm, 04/04/21 10:55:00 EST, Height Start Date: 05/22/21 Status: Ordered Quantity: 90.0 Unit: capsule Repeat number: 2 Humalog 100 u/ml subcutaneous injection = 10 units, Subcutaneous Infusion, 2 times a day with meals, 0 Refills, Maintenance, 04/04/23 11:29:00 AM EST, Partial fill upon patient request if the prescription is for a schedule II opioid drug. Start Date: 04/04/23 Status: Ordered Repeat number: 1 Janumet XR 50 mg-1000 mg oral tablet, extended release 1 tablet, By Mouth, Daily in PM, # 90 tablet, 1 Refills, Maintenance, 01/12/20 6:02:00 PM EDT, [facility], 28, TAKE 1 TABLET BY MOUTH EVERY EVENING, 154.9, cm, 07/09/19 13:43:00 EST, Height, 83.9, kg, 01/20/19 5:07:00 EDT, Dry Weight Start Date: 01/12/20 Status: Ordered Quantity: 90.0 Unit: tablet Repeat number: 1 Jardiance 10 mg oral tablet 1 tablet, By Mouth, Daily in AM, # 90 tablet, 1 Refills, Maintenance, 12/16/19 11:47:00 AM EDT, [facility], 154.9, cm, 07/09/19 13:43:00 EST, Height, 83.9, kg, 01/20/19 5:07:00 EDT, Dry Weight Start Date: 12/16/19 Status: Ordered Quantity: 90.0 Unit: tablet Repeat number: 1 lisinopril 40 mg oral tablet See Instructions, TAKE 1 TABLET BY MOUTH ONCE A DAY, # 90 tablet, 0 Refills, [facility], 154.9, cm, 09/06/20 14:25:00 EDT, Height, 83.9, kg, 01/20/19 5:07:00 EDT, Dry Weight Start Date: 09/29/20 Status: Ordered Quantity: 90.0 Unit: tablet Repeat number: 1 Maalox Plus Liquid 30 mL, By Mouth, Every 4 hours, PRN Other, Heartburn, 0 Refills, Maintenance, 01/21/19 10:24:11 AM EDT, Suspension Start Date: 01/21/19 Status: Ordered Repeat number: 1 metoprolol succinate 100 mg oral capsule, extended release 1 capsule = 100 mg, By Mouth, Daily, # 90 capsule, 1 Refills, Maintenance, 09/27/22 3:02:00 PM EDT, ER Capsule, [facility] #[id number], Partial fill upon patient request if the prescription is for a schedule II opioid drug., 155, cm, 09/27/22 14:35:00 EDT, Height Start Date: 09/27/22 Stop Date: 03/26/23 Status: Ordered Quantity: 90.0 Unit: capsule Repeat number: 2 Metoprolol Succinate ER 100 mg oral tablet, extended release 1 tablet, By Mouth, Daily, # 90 tablet, 1 Refills, Maintenance, 04/15/23 7:30:00 PM EST, [facility] #[id number], 155, cm, 04/04/23 11:33:00 EST, Height Start Date: 04/15/23 Status: Ordered Quantity: 90.0 Unit: tablet Repeat number: 2 omeprazole 20 mg oral enteric coated capsule 1 capsule, By Mouth, Daily, # 90 capsule, 1 Refills, Maintenance, 04/15/23 7:31:00 PM EST, [facility] #[id number], 155, cm, 04/04/23 11:33:00 EST, Height Start Date: 04/15/23 Stop Date: 10/12/23 Status: Ordered Quantity: 90.0 Unit: capsule Repeat number: 2 ONE TOUCH VERIO LANCETS ONE TOUCH VERIO LANCETS, See Instructions, # 300 each, Refills 1, Tot. Refills 1, Maintenance, USE TO CHECK BLOOD SUGAR TWICE DAILY., 08/20/22 2:00:00 PM EDT, Supply, 154.9, cm, 08/07/22 13:19:00 EDT,Height Start Date: 08/20/22 Status: Ordered Quantity: 300.0 Unit: each Repeat number: 2 ONE TOUCH VERIO TEST STRIPS ONE TOUCH VERIO TEST STRIPS, See Instructions, # 300 each, Refills 1, Tot. Refills 1, Maintenance, USE TO CHECK BLOOD SUGAR TWICE DAILY., 08/20/22 2:00:00 PM EDT, Supply, 154.9, cm, 08/07/22 13:19:00 EDT, Height Start Date: 08/20/22 Status: Ordered Quantity: 300.0 Unit: each Repeat number: 2 senna 187 mg oral tablet 1 tablet = 8.6 mg, By Mouth, Daily at bedtime, 0 Refills, Maintenance, 01/21/19 10:24:37 AM EDT, Tablet Start Date: 01/21/19 Status: Ordered Repeat number: 1 Tolashonda SoloStar 300 units/mL subcutaneous solution = 10 units, Subcutaneous Infusion, Daily, # 6 mL, 1 Refills, Maintenance, 06/16/19 9:12:00 AM EST, [facility], 154.9, cm, 05/19/19 8:07:00 EST, Height, 83.9, kg, 01/20/19 5:07:00 EDT, Dry Weight Start Date: 06/16/19 Stop Date: 08/15/19 Status: Ordered Quantity: 6.0 Unit: mL Repeat number: 2 Earlene GarciaoStar 300 units/mL subcutaneous solution See Instructions, INJECT 10 UNITS UNDER THE SKIN DAILY, # 6 mL, 2 Refills, Maintenance, 03/05/23 6:09:00 PM EDT, [facility] #[id number], 155, cm, 01/08/23 16:16:00 EDT, Height Start Date: 03/05/23 Status: Ordered Quantity: 6.0 Unit: mL Repeat number: 3 traZODone 50 mg oral tablet See Instructions, TAKE 1 TABLET BY MOUTH AT BEDTIME . DO NOT DRIVE AFTER TAKING THIS, # 90 tablet, Refills 1, Tot. Refills 1, Maintenance, Instructions Replace Required Details, Route to Pharmacy Electronically, [facility], 154.9, cm, 01/26/20 13:53:00 EDT, Height, 83.9, kg, 01/20/19 5:07:00 EDT, Dry Weight Start Date: 08/07/20 Status: Ordered Quantity: 90.0 Unit: tablet Repeat number: 2 Trulicity Pen 0.75 mg/0.5 mL subcutaneous solution See Instructions, INJECT 0.5ML SUBCUTANEOUSLY (UNDER THE SKIN) EVERY FRIDAY DIRECTED, # 2 mL, 1 Refills, 03/05/23 6:10:00 PM EDT, [facility] #[id number], 155, cm, 01/08/23 16:16:00 EDT, Height Start Date: 03/05/23 Status: Ordered Quantity: 2.0 Unit: mL Repeat number: 2 Tylenol 160 mg / 5 mL Liquid 0 Refills, Maintenance, 04/04/23 11:31:00 AM EST, Partial fill upon patient request if the prescription is for a schedule II opioid drug. Start Date: 04/04/23 Status: Ordered Repeat number: 1 Problem List Condition Confirmation Course Effective Dates Status H ealth Status Informant Pain in right ankle Confirmed Active Body mass index 30+ - obesity Confirmed Active BMI 36.0-36.9,adult Confirmed Active Chronic kidney disease, stage 3b 1 Confirmed Active Cyst of kidney Confirmed Active Depression Confirmed Active Diabetic neuropathy Confirmed Active Colon wall thickening Confirmed Active Mandibular mass Confirmed Active Ganglion of wrist Confirmed Active Hydronephrosis Confirmed Active Hyperlipidemia Confirmed Active Hypertension Confirmed Active Bladder wall thickening Confirmed Active Knee pain Confirmed Active Lipoma of thigh 2 Confirmed 06/06/17 Active Multinodular goiter Confirmed Active Multiple nodules of lung 3 Confirmed 06/06/17 Active Multiple renal cysts 4 Confirmed 06/06/17 Active Obese class I Confirmed Active Osteoarthritis Confirmed Active Osteoarthritis 5 Confirmed 06/06/17 Active Osteopenia Confirmed Active Type 2 diabetes mellitus Confirmed Active 1Per chart review meets GFR criteria 2Outside Source Comment: Overview: 03/21/2016 bx 3Outside Source Comment: Overview: Bilaterally, chest CT 12/2015 4Outside Source Comment: Overview: Bilateral, 06/04/2016 5Outside Source Comment: Overview: L knee Vital Signs Most recent to oldest [Reference Range]: 1 Height 155 cm (03/16/24 9:11 AM) Weight 73 kg (03/16/24 9:11 AM) Body Mass Index [18.5-24.99 kg/m2] 30.39 kg/m2 *>HHI* (03/16/24 9:11 AM) Weight Obtained Via Standing scale (03/16/24 9:11 AM) Social History Social History Type Response Smoking Status Never smoker entered on: 03/02/18 Sex Sex Representation Female (finding) Patient Care team information Care Team Personnel Name: Ginette Fortune MD Position: [facility] Outreach Member Role: PCP Address: [address] [place] [address] [address] [place] [id number] Telecom: Name: Jeanna Blancas Position: [facility] Outreach Member Role: Lifetime Consulting Physician Name: Rocio Peguero RN Position: [facility] RN Member Role: Primary Care Nurse Name: Ruben Prather RN Position: [facility] RN Member Role: Primary Care Nurse Name: Lilia Temple Position: [facility] Outreach Member Role: Lifetime Consulting Physician Name: Tony Dsouza MD Position: [facility] Physician (General Medicine) Member Role: Lifetime Consulting Physician Address: [address] [place] [address] Telecom: Care Team Related Persons Name: MADIE JACKSON Insurance Providers Guarantor name: VIVI JACKSON [facility] Health Plan Information #: 1 Payer: [employer] [facility] [employer] Member Number: [id number] Policy Number: NA Group Number: [facility] Mobile Captain Plan Information #: 2 Payer: [employer] [facility] [employer] Member Number: [id number] Policy Number: NA Group Number: [id number]
--- OUTSIDE RECORDS SUMMARY | 2024-04-13 13:49 | XMS_ITS ---
Author Organization [facility] Address [address] [place] [address] Care Team Providers Care Dimethylaniline Sulfator Operator Name Role Phone BHUMIKA BUSTOS Unavailable [phone] REASON FOR VISIT balance Encounters Encounter Location Date Provider Diagnosis [facility] [address] [facility] [address] [place] [address] 02/25/2024 BHUMIKA BUSTOS PLAN OF TREATMENT No Information Progress Notes * Coleen BERMANsDOB: [birth year] (63 yo F)Acc No.[id number]:02/25/2024 Patient:??Rosie BERMAN :1960?Age:63 Y?Sex:Fe male Address:[address] [place] [id number] * true * Date:??
--- OUTSIDE RECORDS SUMMARY | 2024-04-13 13:49 | XMS_ITS ---
Author Organization [facility] Address [address] [place] [address] Care Team Providers Care Social Services Aide Name Role Phone BHUMIKA BUSTOS Unavailable [phone] MEDICATIONS Medication SIG (Take, Route, Fr equency, Duration) Notes Start Date End Date Status Mounjaro 5 MG/0.5ML 5mg Subcutaneous wee kly for 30 days Active Encounters Encounter Location Date Provider Diagnosis [place] [id number] [address] 11/28/2023 BHUMIKA MAURONeymar Other obesity due to excess calories E66.09 ; BMI 30.0-30.9,adult Z68.30 ; Type 2 diabetes mellitus without complications E11.9 ; shelter (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 insulin Z79.4 ; History of gastric surgery Z98.890 and Hypothyroidism, unspecified type E03.9 ASSESSMENTS Encounter Date Diagnosis Assessment Notes Treatment Notes Treatment Clinical Notes Section Notes 11/28/2023 Other obesity due to excess calories (ICD-10 - E66.09) #Weight Management 11/28/2023 Will try to get [...] minimum of 6 months The most recent [place] Association of clinical endocrinologists and [place] [employer] of endocrinology guidelines recommend patients who [...] or arrhythmias In the setting of potential stimulant/amphetami ne use such as phentermine We have also [...] track activity level. Consider using apps like [employer], myfitOculus360pal, lose it, stick as needed for self-monitoring and weight management. Consider group exercises. Consider hiring a computer technology trainer. Regular exercise is shook to sustainable health [...] counseling and psychiatry and Dr Salamanca at [facility]. We would like to cover regular topics [...] software and direct typing Please excuse inadvertent radioisotope production operator or typing errors, or uncorrected word substitutions Although every attempt has been made by the provider to proofread this document, occasional misspellings and typographical errors may still be present Due to the previous pandemic, and the use of personal protective equipment (PPE) This may decrease voice recognition accuracy Inadvertent radioisotope production operator errors may occur 11/28/2023 BMI 30.0-30.9,adult (ICD-10 - Z68.30) #Weight Management 11/28/2023 Will try to get [...] minimum of 6 months The most recent [place] Association of clinical endocrinologists and [place] [employer] of endocrinology guidelines recommend patients who [...] or arrhythmias In the setting of potential stimulant/amphetami ne use such as phentermine We have also [...] track activity level. Consider using apps like [employer], myfitnesspal, lose it, stick as needed for self-monitoring and weight management. Consider group exercises. Consider hiring a computer technology trainer. Regular exercise is shook to sustainable health [...] counseling and psychiatry and Dr Salamanca at [facility]. We would like to cover regular topics [...] software and direct typing Please excuse inadvertent radioisotope production operator or typing errors, or uncorrected word substitutions Although every attempt has been made by the provider to proofread this document, occasional misspellings and typographical errors may still be present Due to the previous pandemic, and the use of personal protective equipment (PPE) This may decrease voice recognition accuracy Inadvertent radioisotope production operator errors may occur 11/28/2023 Type 2 diabetes mellitus without complications (ICD-10 - E11.9) #Weight Management 11/28/2023 Will try to get [...] minimum of 6 months The most recent [place] Association of clinical endocrinologists and [place] [employer] of endocrinology guidelines recommend patients who [...] or arrhythmias In the setting of potential stimulant/amphetami ne use such as phentermine We have also [...] track activity level. Consider using apps like [employer], myfitnesspal, lose it, stick as needed for self-monitoring and weight management. Consider group exercises. Consider hiring a computer technology trainer. Regular exercise is shook to sustainable health [...] counseling and psychiatry and Dr Salamanca at [facility]. 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 Consider using apps like [employer], Hear It Firstpal, lose it, stick as needed for self-monitoring and weight management. Consider group exercises. Consider hiring a computer technology trainer. Regular exercise is shook to sustainable health [...] counseling and psychiatry and Dr Salamanca at [facility]. We would like to cover regular topics [...] software and direct typing Please excuse inadvertent radioisotope production operator or typing errors, or uncorrected word substitutions Although every attempt has been made by the provider to proofread this document, occasional misspellings and typographical errors may still be present Due to the previous pandemic, and the use of personal protective equipment (PPE) This may decrease voice recognition accuracy Inadvertent radioisotope production operator errors may occur 11/28/2023 History of gastric surgery (ICD-10 - Z98.890) #Weight Management 11/28/2023 Will try to get [...] minimum of 6 months The most recent [place] Association of clinical endocrinologists and [place] College of endocrinology guidelines recommend patients who [...] or arrhythmias In the setting of potential stimulant/amphetami ne use such as phentermine We have also [...] track activity level. Consider using apps like [employer], Hear It Firstpal, lose it, stick as needed for self-monitoring and weight management. Consider group exercises. Consider hiring a computer technology trainer. Regular exercise is shook to sustainable health [...] counseling and psychiatry and Dr Salamanca at [facility]. We would like to cover regular topics [...] software and direct typing Please excuse inadvertent radioisotope production operator or typing errors, or uncorrected word substitutions Although every attempt has been made by the provider to proofread this document, occasional misspellings and typographical errors may still be present Due to the previous pandemic, and the use of personal protective equipment (PPE) This may decrease voice recognition accuracy Inadvertent radioisotope production operator errors may occur 11/28/2023 Hypothyroidism, unspecified type (ICD-10 - E03.9) #Weight Management 11/28/2023 Will try to get [...] minimum of 6 months The most recent [place] Association of clinical endocrinologists and [place] College of endocrinology guidelines recommend patients who [...] or arrhythmias In the setting of potential stimulant/amphetami ne use such as phentermine We have also [...] track activity level. Consider using apps like [employer], myfitnesspal, lose it, stick as needed for self-monitoring and weight management. Consider group exercises. Consider hiring a computer technology trainer. Regular exercise is shook to sustainable health [...] counseling and psychiatry and Dr Salamanca at [facility]. We would like to cover regular topics [...] software and direct typing Please excuse inadvertent radioisotope production operator or typing errors, or uncorrected word substitutions Although every attempt has been made by the provider to proofread this document, occasional misspellings and typographical errors may still be present Due to the previous pandemic, and the use of personal protective equipment (PPE) This may decrease voice recognition accuracy Inadvertent radioisotope production operator errors may occur PLAN OF TREATMENT Medication Medication Name Sig Start Date Stop Date Notes Mounjaro 5 MG/0.5ML 5mg Subcutaneous weekly for 30 days Progress Notes * Mayra BERMAN: 9[birth year] (63 yo F)Acc No.[id number]:11/28/2023 Patient:??Rosie BERMAN Provider:??BHUMIKA BUSTOS NP :1960?Age:63 Y?Sex:Fe male Date:11/28/2023 Address:[address] [place] [address] [facility] Subjective: * Chief Complaints: * ? 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 Consider using apps like [employer], Hear It Firstpal, lose it, stick as needed for self-monitoring and weight management. Consider group exercises. Consider hiring a computer technology trainer. Regular exercise is shook to sustainable health [...] counseling and psychiatry and Dr Salamanca at [facility]. We would like to cover regular topics [...] software and direct typing Please excuse inadvertent radioisotope production operator or typing errors, or uncorrected word substitutions Although every attempt has been made by the provider to proofread this document, occasional misspellings and typographical errors may still be present Due to the previous pandemic, and the use of personal protective equipment (PPE) This may decrease voice recognition accuracy Inadvertent radioisotope production operator errors may occur. Plan: * Treatment: * Procedure Codes:??81234 NO S HOW OFFICE VISIT * Images: Billing Information: * Visit Code:?? * Procedure Codes:?? 19450 NO SHOW OFFICE VISIT. * Sign off status: Pending * Provider:??BHUMIKA BUSTOS NP Date:??11/03 History and Physical Notes * HPI (History of Present Illness) Category Sub-Category Detail Notes Category Not es Constitutional Patient is here today for a weight management f/u visit Patient seen and examined. Full past medical history, social history, family history, allergies and current medications were reviewed and updated. Body composition analysis reviewed today, as expected increased BMI, visceral adiposity, fat mass index, waist cirumference Good skeletal mass composition, Good water composition Caloric energy expenditure discussed #Weight Management 11/28/2023 currently on 0.25mg Ozempic Had been on Mounjaro however because of nationwide shortages we transition her to Ozempic in the interim She would like to go back on Mounjaro she feels better appetite suppression and efficacy Denies any side effects except for constipation Was given samples of Linzess today for constipation 07/2023 Updated A1c of 6.5%. improved from 7.0 To discontinue metformin hx of type 2 DM, current regimen was onTrulicity 1.5mg weekly, Jardiance 25mg, Lantus 5 uxs @ [facility] No longer on Trulicity and Lantus * utilizing freestyle wally CGM morning sugars 60-70 in am Injection Day Mondays hx of hypothyroidism, was on synthroid Updated comprehensive labs October 03, 2023 Hemoglobin A1c of 6.4 prediabetic state TSH of 0.43, T4, 8.4 Discussed the importance of protein-calorie nutrition, maintaining muscle mass, vit b12, biotin, iron while on GLP-1 medications, dual incretins, appetite suppressants 11/28/2023, Weight , BMI 07/04/2023, Weight 165 Ibs, BMI 31 (-5 Ibs) 05/09/2023: Weight 170 lbs, BMI 32: Patient [place] [facility] [place] [facility] 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 also hx of Left tkR 2009 also hx of right tkr 2015 NEOS Diet: bariatric diet, utilizing bariatric multivitamins Exercise: Currently not tracking steps daily. Non-smoker. ETOH use: denies Health Maintenance Flu: April 2023 Shringrix: [id number]. Had both shots RSV: Rx given for pharmacy TDap: up-to-date Examination Category Sub-Category Detail Notes Category Not es General Examination GENERAL APPEARANCE: in no ac [place] distress, well developed, well nourished HEAD: normocephalic, [...]
--- OUTSIDE RECORDS SUMMARY | 2024-04-13 13:49 | XMS_ITS | Continuity of Care Document ---
Author Organization [facility] ter Address [address] [place] [id number]- Care Team Providers Care Shortage Worker Name Role Phone Kaley Jacobson MD Primary Care Physician [place] [facility]03[place] - 03/15/[address] [address]- Attending Physician: Godfrey Marcum MD Admitting Physician: Godfrey Marcum MD Referring Physician: Godfrey Marcum MD Allergies, Adverse Reactions, Alerts Substance Reaction Severity Status Latex Rash Active Immunizations [...] 6 hours, Refills 0, Maintenance, 01/21/19 10:24:09 EDT Start Date: 01/21/19 Status: Ordered alendronate 70 mg oral tablet 1 tablet, By Mouth, Every Friday, # 12 tablet, 2 Refills, Maintenance, 07/05/20 13:44:00 EST, [facility], 154.9, cm, 01/26/20 13:53:00 EDT, Height, 83.9, kg, 01/20/19 5:07:00 EDT, Dry Weight Start Date: 07/05/20 Status: Ordered amLODIPine 10 mg oral tablet 1 tablet, By Mouth, Daily, # 90 tablet, 1 Refills, Maintenance, 04/15/23 19:30:00 EST, [facility][id number], 155, cm, 04/04/23 11:33:00 EST, Height Start Date: 04/15/23 Status: Ordered atorvastatin 20 mg oral tablet 1 tablet, By Mouth, Daily, # 90 tablet, 1 Refills, Maintenance, 01/28/20 16:12:00 EDT, [facility], 154.9, cm, 01/26/20 13:53:00 EDT, Height, 83.9, kg, 01/20/19 5:07:00 EDT, Dry Weight Start Date: 01/28/20 Status: Ordered D 1000 IU oral tablet 1 tablet, By Mouth, Daily, # 90 tablet, 1 Refills, Maintenance, 08/07/20 16:16:00 EDT, [facility], 154.9, cm, 01/26/20 13:53:00 EDT, Height, 83.9, kg, 01/20/19 5:07:00 EDT, Dry Weight Start Date: 08/07/20 Status: Ordered D 1000 IU oral tablet See Instructions, TAKE 1 TABLET BY MOUTH ONCE A DAY, # 90 tablet, 1 Refills, Maintenance, [facility], 154.9, cm, 01/26/20 13:53:00 EDT, Height, 83.9, kg, 01/20/19 5:07:00 EDT, Dry Weight Start Date: 08/07/20 Status: Ordered FLUoxetine 20 mg oral capsule 1, capsule, By Mouth, Daily, # 180 capsule, Refills 1, Tot. Refills 0, Maintenance, 08/24/20 7:16:00 EDT, Route to Pharmacy Electronically, [facility], 154.9, cm, 01/26/20 13:53:00 EDT, Height, 83.9, kg, 01/20/19 5:07:00 EDT, Dry Weight Start Date: 08/24/20 Status: Ordered fluticasone 50 mcg/inh nasal spray See Instructions, SHAKE LIQUID AND USE 2 SPRAYS IN EACH NOSTRIL EVERY MORNING, # 48 Gm, 3 Refills, 04/15/23 19:29:00 EST, [facility] #[id number], 30, SHAKE LIQUID AND USE 2 SPRAYS IN EACH NOSTRIL EVERY MORNING, 155, cm, 04/04/23 11:33:00 EST, Height Start Date: 04/15/23 Status: Ordered Freestyle Lancets See Instructions, # 300 each, Refills 1, Tot. Refills 1, Maintenance, Use as directed twice a day Dx: E 11.9, 05/17/20 12:23:00 EST, Compound, 154.9, cm, 01/26/20 13:53:00 EDT, Height, 83.9, kg, 01/20/19 5:07:00 EDT, Dry Weight Start Date: 05/17/20 Status: Ordered Freestyle Jame 2 Sensor Freestyle Jame 2 Sensor, See Instructions, # 2 each, Refills 3, Tot. Refills 3, Maintenance, Checkblood sugar before meals. Dx: E11.65 on insulin, 06/19/23 7:02:00 EST, Supply, 155, cm, 04/04/23 11:33:00 EST, Height Start Date: 06/19/23 Status: Ordered FREESTYLE LITE LANCETS 33G FREESTYLE LITE LANCETS 33G, See Instructions, # 300 each, Refills 1, Tot. Refills 1, Maintenance, USE TO TEST BLOOD SUGAR TWICE DAILY, 08/12/22 14:36:00 EDT, DX E11.9, Supply, 154.9, cm, 08/07/22 13:19:00 EDT, Height Start Date: 08/12/22 Status: Ordered FREESTYLE LITE TEST STRIPS FREESTYLE LITE TEST STRIPS, See Instructions, # 300 each, Refills 1, Tot. Refills 1, Maintenance, USE TO TEST BLOOD SUGAR TWICE DAILY, 08/12/22 14:37:00 EDT, DX E11.9, Supply, 154.9, cm, 08/07/22 13:19:00 EDT, Height Start Date: 08/12/22 Status: Ordered furosemide 20 mg oral tablet See Instructions, TAKE 1 TABLET BY MOUTH ONCE A DAY, # 90 tablet, Refills 0, Maintenance, Instructions Replace Required Details, Route to Pharmacy Electronically, [facility], 154.9, cm, 01/26/20 13:53:00 EDT, Height, 83.9, kg, 01/20/19 5:07:00... Start Date: 08/23/20 Status: Ordered gabapentin 400 mg oral capsule 1, capsule, By Mouth, Daily at bedtime, # 90 capsule, Refills 1, Tot. Refills 1, Maintenance, 05/22/21 14:58:00 EST, Route to Pharmacy Electronically, [facility] #[id number], 154.9, cm, 04/04/2110:55:00 EST, Height Start Date: 05/22/21 Status: Ordered Humalog 100 u/ml subcutaneous injection = 10 units, Subcutaneous Infusion, 2 times a day with meals, 0 Refills, Maintenance, 04/04/23 11:29:00 EST, Partial fill upon patient request if the prescription is for a schedule II opioid drug. Start Date: 04/04/23 Status: Ordered Janumet XR 50 mg-1000 mg oral tablet, extended release 1 tablet, By Mouth, Daily in PM, # 90 tablet, 1 Refills, Maintenance, 01/12/20 18:02:00 EDT, [facility], 28, TAKE 1 TABLET BY MOUTH EVERY EVENING, 154.9, cm, 07/09/19 13:43:00 EST, Height, 83.9, kg, 01/20/19 5:07:00 EDT, Dry Weight Start Date: 01/12/20 Status: Ordered Jardiance 10 mg oral tablet 1 tablet, By Mouth, Daily in AM, # 90 tablet, 1 Refills, Maintenance, 12/16/19 11:47:00 EDT, [facility], 154.9, cm, 07/09/19 13:43:00 EST, Height, 83.9, kg, 01/20/19 5:07:00 EDT, Dry Weight Start Date: 12/16/19 Status: Ordered lisinopril 40 mg oral tablet See Instructions, TAKE 1 TABLET BY MOUTH ONCE A DAY, # 90 tablet, 0 Refills, Maintenance, [facility], 154.9, cm, 09/06/20 14:25:00 EDT, Height, 83.9, kg, 01/20/19 5:07:00 EDT, Dry Weight Start Date: 09/29/20 Status: Ordered Maalox Plus Liquid 30 mL, By Mouth, Every 4 hours, PRN Other, Heartburn, 0 Refills, Maintenance, 01/21/19 10:24:11 EDT, Suspension Start Date: 01/21/19 Status: Ordered metoprolol succinate 100 mg oral capsule, extended release 1 capsule = 100 mg, By Mouth, Daily, # 90 capsule, 1 Refills, Maintenance, 09/27/22 15:02:00 EDT, ER Capsule, [facility] #[id number], Partial fill upon patient request if the prescription is fora schedule II opioid drug., 155, cm, 09/27/22 14:35... Start Date: 09/27/22 Stop Date: 03/26/23 Status: Ordered Metoprolol Succinate ER 100 mg oral tablet, extended release 1 tablet, By Mouth, Daily, # 90 tablet, 1 Refills, Maintenance, 04/15/23 19:30:00 EST, [facility] #[id number], 155, cm, 04/04/23 11:33:00 EST, Height Start Date: 04/15/23 Status: Ordered omeprazole 20 mg oral enteric coated capsule 1 capsule, By Mouth, Daily, # 90 capsule, 1 Refills, Maintenance, 04/15/23 19:31:00 EST, [facility] #[id number], 155, cm, 04/04/23 11:33:00 EST, Height Start Date: 04/15/23 Stop Date: 10/12/23 Status: Ordered ONE TOUCH VERIO LANCETS ONE TOUCH VERIO LANCETS, See Instructions, # 300 each, Refills 1, Tot. Refills 1, Maintenance, USE TO CHECK BLOOD SUGAR TWICE DAILY., 08/20/22 14:00:00 EDT, Supply, 154.9, cm, 08/07/22 13:19:00 EDT, Height Start Date: 08/20/22 Status: Ordered ONE TOUCH VERIO TEST STRIPS ONE TOUCH VERIO TEST STRIPS, See Instructions, # 300 each, Refills 1, Tot. Refills 1, Maintenance, USE TO CHECK BLOOD SUGAR TWICE DAILY., 08/20/22 14:00:00 EDT, Supply, 154.9, cm, 08/07/22 13:19:00 EDT, Height Start Date: 08/20/22 Status: Ordered senna 187 mg oral tablet 1 tablet = 8.6 mg, By Mouth, Daily at bedtime, 0 Refills, Maintenance, 01/21/19 10:24:37 EDT, Tablet Start Date: 01/21/19 Status: Ordered Toujeo SoloStar 300 units/mL subcutaneous solution = 10 units, Subcutaneous Infusion, Daily, # 6 mL, 1 Refills, Maintenance, 06/16/19 9:12:00 EST, [facility], 154.9, cm, 05/19/19 8:07:00 EST, Height, 83.9, kg, 01/20/19 5:07:00 EDT, Dry Weight Start Date: 06/16/19 Stop Date: 08/15/19 Status: Ordered Toujeo SoloStar 300 units/mL subcutaneous solution See Instructions, INJECT 10 UNITS UNDER THE SKIN DAILY, # 6 mL, 2 Refills, Maintenance, 03/05/23 18:09:00 EDT, [facility] #[id number], 155, cm, 01/08/23 16:16:00 EDT, Height Start Date: 03/05/23 Status: Ordered traZODone 50 mg oral tablet See Instructions, TAKE 1 TABLET BY MOUTH AT BEDTIME . DO NOT DRIVE AFTER TAKING THIS, # 90 tablet, Refills 1, Tot. Refills 1, Maintenance, Instructions Replace Required Details, Route to Pharmacy Electronically, [facility], 154.9, cm, 01/26/20... Start Date: 08/07/20 Status: Ordered Trulicity Pen 0.75 mg/0.5 mL subcutaneous solution See Instructions, INJECT 0.5ML SUBCUTANEOUSLY (UNDER THE SKIN) EVERY FRIDAY DIRECTED, # 2 mL, 1 Refills, 03/05/23 18:10:00 EDT, [facility] #[id number], 155, cm, 01/08/23 16:16:00 EDT, Height Start Date: 03/05/23 Status: Ordered Tylenol 160 mg / 5 mL Liquid 0 Refills, Maintenance, 04/04/23 11:31:00 EST, Partial fill upon patient request if the prescription is for a schedule II opioid drug. Start Date: 04/04/23 Status: Ordered Problem List Condition Confirmation Course Effective Dates [...] 06/04/2016 5Outside Source Comment: Overview: L knee Social History Social History Type Response Smoking Status Never smoker entered on: 03/02/18 Sex Patient Care team information Care Team Personnel Name: Jeanna Blancas Position: [facility] Outreach Member Role: Lifetime Consulting Physician Name: Rocio Peguero RN Position: [facility] SN RN Member Role: Primary Care Nurse Name: Ruben Prather RN Position: [facility] RN Member Role: Primary Care Nurse Name: Tony Dsouza MD Position: [facility] Physician (General Medicine) Member Role: Lifetime Consulting Physician Address: Address: [address] [place] [id number]- Name: Kaley Jacobson MD Position: [facility] Physician - Primary Care Member Role: PCP Address: Address: [address] [place] [address], [address] [place] [address]- [place] Care Team Related Persons Name: MADIE JACKSON Address: home [address] [place] [id number]
--- OUTSIDE RECORDS SUMMARY | 2024-04-13 13:50 | XMS_ITS | Patient Health Record ---
Author Organization [facility] Address [address] [place] [address] Care Team Providers Care Weight Control Lecturer Name Role Phone BHUMIKA BUSTOS Unavailable [phone] ALLERGIES Allergen (clinical drug ingredient) Drug/Non Drug [...] Note Original Orderi ng Provider: BHUMIKA BUSTOS PROFESSIONAL SERVICES SPECIALIST TOTAL T4 8.4 4.5-10.9 ug/dl REASON FOR [...] diabetes mellitus without complications (E11.9) Active confirmed 857441544 Problem Other obesity due to excess calories (E66.09) Active confirmed 395701391 Problem FDC (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 insulin (Z79.4) Active confirmed 830950390 Problem Hypothyroidism, unspecified type (E03.9) Active confirmed [id number] Problem Body mass index [BMI] 32.0-32.9, adult (Z68.32) Active confirmed 133157097 Problem BMI 31.0-31.9,adult (Z68.31) Active confirmed 112031789 Problem BMI 30.0-30.9,adult (Z68.30) Active confirmed 482029592 VITAL SIGNS Heart Rate 76 /min 10/03/2023 Oximetry 95 % 10/03/2023 Blood pressure diastolic 84 mm Hg 10/03/2023 Height 61 in 10/03/2023 Blood pressure systolic 120 mm Hg 10/03/2023 Weight 161 lbs 10/03/2023 BMI 30.42 kg/m2 10/03/2023 Encounters Encounter Location Date Provider Diagnosis [place] [id number] 08/13/2023 [place] [address] 11/28/2023 BHUMIKA BUSTOS Other obesity due to excess calories E66.09 ; BMI 30.0-30.9,adult Z68.30 ; Type 2 diabetes mellitus without complications E11.9 ; FDC (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 insulin Z79.4 ; History of gastric surgery Z98.890 and Hypothyroidism, unspecified type E03.9 [place] [address] 05/09/2023 BHUMIKA BUSTOS Other obesity due to excess calories E66.09 ; Body mass index [BMI] 32.0-32.9, adult Z68.32 ; Type 2 diabetes mellitus without complications E11.9 ; lobsterman (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 insulin Z79.4 and History of gastric surgery Z98.890 [place] [address] 07/04/2023 BHUMIKA BUSTOS Other obesity due to excess calories E66.09 ; Type 2 diabetes mellitus without complications E11.9 ; lobsterman (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 insulin Z79.4 ; History of gastric surgery Z98.890 and BMI 31.0-31.9,adult Z68.31 [place] [address] [address] 10/03/2023 BHUMIKA BUSTOS Other obesity due to excess calories E66.09 ; BMI 30.0-30.9,adult Z68.30 ; Type 2 diabetes mellitus without complications E11.9 ; lobsterman (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 insulin Z79.4 ; History of gastric surgery Z98.890 and Hypothyroidism, unspecified type E03.9 [facility] [address] [place] [address] 08/29/2023 BHUMIKA BUSTOS [facility] [address] [place] [address] 12/04/[address] [facility] [address] [address] 02/25/2024 BHUMIKA BORCRYSTAL ASSESSMENTS Encounter Date Diagnosis Assessment Notes Treatment Notes Treatment Clinical Notes Section Notes 05/09/2023 Other obesity due to excess calories (ICD-10 - E66.09) Will switch Trulicity to Mounjaro which is a better drug and molecule for diabetes management as well as weight loss Dual incretin's discussed Stop Lantus morning sugars are on the lower end as well as A1c is age-appropriate at 8 Will continue Jardiance SGLT is beneficial for the heart and kidneys Will follow A1c closely Will try and track down records and labs Total time spent today was 60 minutes of which greater than 50% was spent on coordinating and counseling We are a board certified obesity and weight management practice Patient has trialed behavioral modification, dietary restrictions and exercise for a minimum of 6 months The most recent [employer] of clinical endocrinologists and [employer] of endocrinology guidelines recommend patients who have overweight BMI or obesity BMI, who also have metabolic syndrome, prediabetes, or at risk of developing type 2 diabetes should aim for a weight loss goal of at least 10% of the baseline body weight Patient counseled regarding effects of GLP/GIP-1 agonists, and other FDA approved wgt loss meds with regards to a multifactorial approach of weight loss as mentioned above and not solely appetite suppression. We have discussed the mechanism of GLP-1's/GIP, dual incretins I think this would be fantastic option [...] other nutrients, To help avoid telogen effluvium There is no history of medullary thyroid cancer or multiple endocrine neoplasia There is also no history of cardiovascular disease, hypertension, palpitations, or arrhythmias In the setting of potential stimulant/amphetami ne use such as phentermine We have also discussed risks and benefits, and the use of compounded medications to help offset the national shortages as well as financial implications vs trade name drugs GLP must be discontinued upon initiation We have discussed the lifelong requirement of nutritional supplementation And adherence to an exercise regimen as well as importance of follow-up The patient understands and agrees Patient has been found to be obese with a BMI of (32). Patient has class (1) obesity. Patient was reassured and welcomed to the [...] regimen as well as importance of dietary f/u Patient was educated on the replacement products [...] track activity level. Consider using apps like WhoCanHelp.com, [facility] [employer], lose it, stick as needed for self-monitoring and weight management. Consider group exercises. Consider hiring a personal financial counselor. Regular exercise is shook to sustainable health [...] and includes phentermine, Topamax,Qsymia, contrave, belviq and saxenda, wegovy All prescription medications could have side effects [...] counseling and psychiatry and Dr Salamanca at [facility]. We would like to cover regular topics [...] software and direct typing Please excuse inadvertent teenage program director or typing errors, or uncorrected word substitutions Although every attempt has been made by the provider to proofread this document, occasional misspellings and typographical errors may still be present Due to the previous pandemic, and the use of personal protective equipment (PPE) This may decrease voice recognition accuracy Inadvertent teenage program director errors may occur 05/09/2023 Body mass index [BMI] 32.0-32.9, adult (ICD-10 - Z68.32) Will switch Trulicity to Mounjaro which is a better drug and molecule for diabetes management as well as weight loss Dual incretin's discussed Stop Lantus morning sugars are on the lower end as well as A1c is age-appropriate at 8 Will continue Jardiance SGLT is beneficial for the heart and kidneys Will follow A1c closely Will try and track down records and labs Total time spent today was 60 minutes of which greater than 50% was spent on coordinating and counseling We are a board certified obesity and weight management practice Patient has trialed behavioral modification, dietary restrictions and exercise for a minimum of 6 months The most recent [employer] of clinical endocrinologists and [employer] endocrinology guidelines recommend patients who have overweight BMI or obesity BMI, who also have metabolic syndrome, prediabetes, or at risk of developing type 2 diabetes should aim for a weight loss goal of at least 10% of the baseline body weight Patient counseled regarding effects of GLP/GIP-1 agonists, and other FDA approved wgt loss meds with regards to a multifactorial approach of weight loss as mentioned above and not solely appetite suppression. We have discussed the mechanism of GLP-1's/GIP, dual incretins I think this would be fantastic option [...] other nutrients, To help avoid telogen effluvium There is no history of medullary thyroid cancer or multiple endocrine neoplasia There is also no history of cardiovascular disease, hypertension, palpitations, or arrhythmias In the setting of potential stimulant/amphetami ne use such as phentermine We have also discussed risks and benefits, and the use of compounded medications to help offset the national shortages as well as financial implications vs trade name drugs GLP must be discontinued upon initiation We have discussed the lifelong requirement of nutritional supplementation And adherence to an exercise regimen as well as importance of follow-up The patient understands and agrees Patient has been found to be obese with a BMI of (32). Patient has class (1) obesity. Patient was reassured and welcomed to the [...] regimen as well as importance of dietary f/u Patient was educated on the replacement products [...] track activity level. Consider using apps like WhoCanHelp[employer]com, myfitnesspal, lose it, stick as needed for self-monitoring and weight management. Consider group exercises. Consider hiring a personal financial counselor. Regular exercise is shook to sustainable health [...] and includes phentermine, Topamax,Qsymia, contrave, belviq and saxenda, wegovy All prescription medications could have side effects [...] counseling and psychiatry and Dr Salamanca at [facility]. We would like to cover regular topics [...] software and direct typing Please excuse inadvertent teenage program director or typing errors, or uncorrected word substitutions Although every attempt has been made by the provider to proofread this document, occasional misspellings and typographical errors may still be present Due to the previous pandemic, and the use of personal protective equipment (PPE) This may decrease voice recognition accuracy Inadvertent teenage program director errors may occur 07/04/2023 Type 2 diabetes mellitus without complications (ICD-10 - E11.9) #Weight Management 07/04/2023 Instructed to discontinue metformin Hemoglobin A1c downtrending today 6.5 Will continue Jardiance SGLT is beneficial for the heart and kidneys Will follow A1c closely Linzess for constipation Total time spent today was 30 minutes of which greater than 50% was spent on coordinating and counseling Patient has been found to be obese with a BMI of (31). Patient has class (1) obesity. We are a board certified obesity and weight management practice Patient has trialed behavioral modification, dietary restrictions and exercise for a minimum of 6 months The most recent [employer] of clinical endocrinologists and [employer] of endocrinology guidelines recommend patients who [...] track activity level. Consider using apps like [employer]CanHelp[employer]com, [employer], lose it, stick as needed for self-monitoring and weight management. Consider group exercises. Consider hiring a personal financial counselor. Regular exercise is shook to sustainable health [...] counseling and psychiatry and Dr Salamanca at [facility]. We would like to cover regular topics [...] software and direct typing Please excuse inadvertent teenage program director or typing errors, or uncorrected word substitutions Although every attempt has been made by the provider to proofread this document, occasional misspellings and typographical errors may still be present Due to the previous pandemic, and the use of personal protective equipment (PPE) This may decrease voice recognition accuracy Inadvertent teenage program director errors may occur 07/04/2023 Other obesity due to excess calories (ICD-10 - E66.09) #Weight Management 07/04/2023 Instructed to discontinue metformin Hemoglobin A1c downtrending today 6.5 Will continue Jardiance SGLT is beneficial for the heart and kidneys Will follow A1c closely Linzess for constipation Total time spent today was 30 minutes of which greater than 50% was spent on coordinating and counseling Patient has been found to be obese with a BMI of (31). Patient has class (1) obesity. We are a board certified obesity and weight management practice Patient has trialed behavioral modification, dietary restrictions and exercise for a minimum of 6 months The most recent [employer] Association of clinical endocrinologists and [employer] of endocrinology guidelines recommend patients who [...] track activity level. Consider using apps like WhoCanHelp[employer]com, [facility] [employer], lose it, stick as needed for self-monitoring and weight management. Consider group exercises. Consider hiring a personal financial counselor. Regular exercise is shook to sustainable health [...] counseling and psychiatry and Dr Salamanca at [facility]. We would like to cover regular topics [...] software and direct typing Please excuse inadvertent teenage program director or typing errors, or uncorrected word substitutions Although every attempt has been made by the provider to proofread this document, occasional misspellings and typographical errors may still be present Due to the previous pandemic, and the use of personal protective equipment (PPE) This may decrease voice recognition accuracy Inadvertent teenage program director errors may occur 10/03/2023 Other obesity due to excess calories (ICD-10 - E66.09) #Weight Management 10/03/2023 _update some labs including [...] minimum of 6 months The most recent [employer] Association of clinical endocrinologists and [employer] of endocrinology guidelines recommend patients who [...] track activity level. Consider using apps like WhoCanHelp[employer]com, [facility] [employer], lose it, stick as needed for self-monitoring and weight management. Consider group exercises. Consider hiring a personal financial counselor. Regular exercise is shook to sustainable health [...] counseling and psychiatry and Dr Salamanca at [facility]. We would like to cover regular topics [...] software and direct typing Please excuse inadvertent teenage program director or typing errors, or uncorrected word substitutions Although every attempt has been made by the provider to proofread this document, occasional misspellings and typographical errors may still be present Due to the previous pandemic, and the use of personal protective equipment (PPE) This may decrease voice recognition accuracy Inadvertent teenage program director errors may occur 10/03/2023 BMI 30.0-30.9,adult (ICD-10 - Z68.30) #Weight Management 10/03/2023 _update some labs including [...] minimum of 6 months The most recent [employer] Association of clinical endocrinologists and [employer] of endocrinology guidelines recommend patients who [...] track activity level. Consider using apps like WhoCanHelp[employer]com, [facility] [employer], lose it, stick as needed for self-monitoring and weight management. Consider group exercises. Consider hiring a personal financial counselor. Regular exercise is shook to sustainable health [...] counseling and psychiatry and Dr Salamanca at [facility]. We would like to cover regular topics [...] software and direct typing Please excuse inadvertent teenage program director or typing errors, or uncorrected word substitutions Although every attempt has been made by the provider to proofread this document, occasional misspellings and typographical errors may still be present Due to the previous pandemic, and the use of personal protective equipment (PPE) This may decrease voice recognition accuracy Inadvertent teenage program director errors may occur 11/28/2023 Other obesity due to excess calories [...] minimum of 6 months The most recent [employer] Association of clinical endocrinologists and [employer] of endocrinology guidelines recommend patients who [...] track activity level. Consider using apps like WhoCanHelp.com, myfitnesspal, lose it, stick as needed for self-monitoring and weight management. Consider group exercises. Consider hiring a personal financial counselor. Regular exercise is shook to sustainable health [...] counseling and psychiatry and Dr Salamanca at [facility]. We would like to cover regular topics [...] software and direct typing Please excuse inadvertent teenage program director or typing errors, or uncorrected word substitutions Although every attempt has been made by the provider to proofread this document, occasional misspellings and typographical errors may still be present Due to the previous pandemic, and the use of personal protective equipment (PPE) This may decrease voice recognition accuracy Inadvertent teenage program director errors may occur 11/28/2023 BMI 30.0-30.9,adult (ICD-10 [...] minimum of 6 months The most recent [employer] Association of clinical endocrinologists and [employer] of endocrinology guidelines recommend patients who [...] track activity level. Consider using apps like WhoCanHelp.com, myfitnesspal, lose it, stick as needed for self-monitoring and weight management. Consider group exercises. Consider hiring a personal financial counselor. Regular exercise is shook to sustainable health [...] counseling and psychiatry and Dr Salamanca at [facility]. We would like to cover regular topics [...] software and direct typing Please excuse inadvertent teenage program director or typing errors, or uncorrected word substitutions Although every attempt has been made by the provider to proofread this document, occasional misspellings and typographical errors may still be present Due to the previous pandemic, and the use of personal protective equipment (PPE) This may decrease voice recognition accuracy Inadvertent teenage program director errors may occur 10/03/2023 Type 2 diabetes mellitus without complications (ICD-10 - E11.9) #Weight Management 10/03/2023 _update some labs including [...] minimum of 6 months The most recent [employer] Association of clinical endocrinologists and [employer] of endocrinology guidelines recommend patients who [...] track activity level. Consider using apps like WhoCanHelp.com, [employer], lose it, stick as needed for self-monitoring and weight management. Consider group exercises. Consider hiring a personal financial counselor. Regular exercise is shook to sustainable health [...] counseling and psychiatry and Dr Salamanca at [facility]. We would like to cover regular topics [...] software and direct typing Please excuse inadvertent teenage program director or typing errors, or uncorrected word substitutions Although every attempt has been made by the provider to proofread this document, occasional misspellings and typographical errors may still be present Due to the previous pandemic, and the use of personal protective equipment (PPE) This may decrease voice recognition accuracy Inadvertent teenage program director errors may occur 05/09/2023 Type 2 diabetes mellitus without complications (ICD-10 - E11.9) Will switch Trulicity to Mounjaro which is a better drug and molecule for diabetes management as well as weight loss Dual incretin's discussed Stop Lantus morning sugars are on the lower end as well as A1c is age-appropriate at 8 Will continue Jardiance SGLT is beneficial for the heart and kidneys Will follow A1c closely Will try and track down records and labs Total time spent today was 60 minutes of which greater than 50% was spent on coordinating and counseling We are a board certified obesity and weight management practice Patient has trialed behavioral modification, dietary restrictions and exercise for a minimum of 6 months The most recent [employer] Association of clinical endocrinologists and [employer] of endocrinology guidelines recommend patients who have overweight BMI or obesity BMI, who also have metabolic syndrome, prediabetes, or at risk of developing type 2 diabetes should aim for a weight loss goal of at least 10% of the baseline body weight Patient counseled regarding effects of GLP/GIP-1 agonists, and other FDA approved wgt loss meds with regards to a multifactorial approach of weight loss as mentioned above and not solely appetite suppression. We have discussed the mechanism of GLP-1's/GIP, dual incretins I think this would be fantastic option [...] other nutrients, To help avoid telogen effluvium There is no history of medullary thyroid cancer or multiple endocrine neoplasia There is also no history of cardiovascular disease, hypertension, palpitations, or arrhythmias In the setting of potential stimulant/amphetami ne use such as phentermine We have also discussed risks and benefits, and the use of compounded medications to help offset the national shortages as well as financial implications vs trade name drugs GLP must be discontinued upon initiation We have discussed the lifelong requirement of nutritional supplementation And adherence to an exercise regimen as well as importance of follow-up The patient understands and agrees Patient has been found to be obese with a BMI of (32). Patient has class (1) obesity. Patient was reassured and welcomed to the [...] regimen as well as importance of dietary f/u Patient was educated on the replacement products [...] track activity level. Consider using apps like WhoCanHelp.com, [employer], lose it, stick as needed for self-monitoring and weight management. Consider group exercises. Consider hiring a personal financial counselor. Regular exercise is shook to sustainable health [...] and includes phentermine, Topamax,Qsymia, contrave, belviq and saxenda, wegovy All prescription medications could have side effects [...] counseling and psychiatry and Dr Salamanca at [facility]. We would like to cover regular topics [...] software and direct typing Please excuse inadvertent teenage program director or typing errors, or uncorrected word substitutions Although every attempt has been made by the provider to proofread this document, occasional misspellings and typographical errors may still be present Due to the previous pandemic, and the use of personal protective equipment (PPE) This may decrease voice recognition accuracy Inadvertent teenage program director errors may occur 07/04/2023 FDC (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 insulin (ICD-10 - Z79.4) #Weight Management 07/04/2023 Instructed to discontinue metformin Hemoglobin A1c downtrending today 6.5 Will continue Jardiance SGLT is beneficial for the heart and kidneys Will follow A1c closely Linzess for constipation Total time spent today was 30 minutes of which greater than 50% was spent on coordinating and counseling Patient has been found to be obese with a BMI of (31). Patient has class (1) obesity. We are a board certified obesity and weight management practice Patient has trialed behavioral modification, dietary restrictions and exercise for a minimum of 6 months The most recent [employer] Association of clinical endocrinologists and [employer] of endocrinology guidelines recommend patients who [...] track activity level. Consider using apps like WhoCanHelp.com, [employer], lose it, stick as needed for self-monitoring and weight management. Consider group exercises. Consider hiring a personal financial counselor. Regular exercise is shook to sustainable health [...] counseling and psychiatry and Dr Salamanca at [facility]. We would like to cover regular topics [...] software and direct typing Please excuse inadvertent teenage program director or typing errors, or uncorrected word substitutions Although every attempt has been made by the provider to proofread this document, occasional misspellings and typographical errors may still be present Due to the previous pandemic, and the use of personal protective equipment (PPE) This may decrease voice recognition accuracy Inadvertent teenage program director errors may occur 05/09/2023 FDC (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 insulin (ICD-10 - Z79.4) Will switch Trulicity to Mounjaro which is a better drug and molecule for diabetes management as well as weight loss Dual incretin's discussed Stop Lantus morning sugars are on the lower end as well as A1c is age-appropriate at 8 Will continue Jardiance SGLT is beneficial for the heart and kidneys Will follow A1c closely Will try and track down records and labs Total time spent today was 60 minutes of which greater than 50% was spent on coordinating and counseling We are a board certified obesity and weight management practice Patient has trialed behavioral modification, dietary restrictions and exercise for a minimum of 6 months The most recent [employer] Association of clinical endocrinologists and [employer] endocrinology guidelines recommend patients who have overweight BMI or obesity BMI, who also have metabolic syndrome, prediabetes, or at risk of developing type 2 diabetes should aim for a weight loss goal of at least 10% of the baseline body weight Patient counseled regarding effects of GLP/GIP-1 agonists, and other FDA approved wgt loss meds with regards to a multifactorial approach of weight loss as mentioned above and not solely appetite suppression. We have discussed the mechanism of GLP-1's/GIP, dual incretins I think this would be fantastic option [...] other nutrients, To help avoid telogen effluvium There is no history of medullary thyroid cancer or multiple endocrine neoplasia There is also no history of cardiovascular disease, hypertension, palpitations, or arrhythmias In the setting of potential stimulant/amphetami ne use such as phentermine We have also discussed risks and benefits, and the use of compounded medications to help offset the national shortages as well as financial implications vs trade name drugs GLP must be discontinued upon initiation We have discussed the lifelong requirement of nutritional supplementation And adherence to an exercise regimen as well as importance of follow-up The patient understands and agrees Patient has been found to be obese with a BMI of (32). Patient has class (1) obesity. Patient was reassured and welcomed to the [...] regimen as well as importance of dietary f/u Patient was educated on the replacement products [...] track activity level. Consider using apps like [email or web address], [facility], lose it, stick as needed for self-monitoring and weight management. Consider group exercises. Consider hiring a personal financial counselor. Regular exercise is shook to sustainable health [...] and includes phentermine, Topamax,Qsymia, contrave, belviq and saxenda, wegovy All prescription medications could have side effects [...] counseling and psychiatry and Dr Salamanca at [facility]. We would like to cover regular topics [...] software and direct typing Please excuse inadvertent teenage program director or typing errors, or uncorrected word substitutions Although every attempt has been made by the provider to proofread this document, occasional misspellings and typographical errors may still be present Due to the previous pandemic, and the use of personal protective equipment (PPE) This may decrease voice recognition accuracy Inadvertent teenage program director errors may occur 07/04/2023 History of gastric surgery (ICD-10 - Z98.890) #Weight Management 07/04/2023 Instructed to discontinue metformin Hemoglobin A1c downtrending today 6.5 Will continue Jardiance SGLT is beneficial for the heart and kidneys Will follow A1c closely Linzess for constipation Total time spent today was 30 minutes of which greater than 50% was spent on coordinating and counseling Patient has been found to be obese with a BMI of (31). Patient has class (1) obesity. We are a board certified obesity and weight management practice Patient has trialed behavioral modification, dietary restrictions and exercise for a minimum of 6 months The most recent [employer] of clinical endocrinologists and [employer] end[employer]in[employer] guidelines recommend patients who [...] track activity level. Consider using apps like [email or web address], myfitnesspal, lose it, stick as needed for self-monitoring and weight management. Consider group exercises. Consider hiring a personal financial counselor. Regular exercise is shook to sustainable health [...] counseling and psychiatry and Dr Salamanca at [facility]. We would like to cover regular topics [...] software and direct typing Please excuse inadvertent teenage program director or typing errors, or uncorrected word substitutions Although every attempt has been made by the provider to proofread this document, occasional misspellings and typographical errors may still be present Due to the previous pandemic, and the use of personal protective equipment (PPE) This may decrease voice recognition accuracy Inadvertent teenage program director errors may occur 10/03/2023 [facility] (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 insulin (ICD-10 - Z79.4) #Weight Management 10/03/2023 _update some labs including [...] minimum of 6 months The most recent [employer] of clinical endocrinologists and [employer] end[employer] guidelines recommend patients who [...] track activity level. Consider using apps like [email or web address], myfitnesspal, lose it, stick as needed for self-monitoring and weight management. Consider group exercises. Consider hiring a personal financial counselor. Regular exercise is shook to sustainable health [...] counseling and psychiatry and Dr Salamanca at [facility]. We would like to cover regular topics [...] software and direct typing Please excuse inadvertent teenage program director or typing errors, or uncorrected word substitutions Although every attempt has been made by the provider to proofread this document, occasional misspellings and typographical errors may still be present Due to the previous pandemic, and the use of personal protective equipment (PPE) This may decrease voice recognition accuracy Inadvertent teenage program director errors may occur 11/28/2023 Type 2 diabetes [...] minimum of 6 months The most recent [employer] of clinical endocrinologists and [employer] end[employer]in[employer] guidelines recommend patients who [...] track activity level. Consider using apps like [email or web address], [facility], lose it, stick as needed for self-monitoring and weight management. Consider group exercises. Consider hiring a personal financial counselor. Regular exercise is shook to sustainable health [...] counseling and psychiatry and Dr Salamanca at [facility]. We would like to cover regular topics [...] software and direct typing Please excuse inadvertent teenage program director or typing errors, or uncorrected word substitutions Although every attempt has been made by the provider to proofread this document, occasional misspellings and typographical errors may still be present Due to the previous pandemic, and the use of personal protective equipment (PPE) This may decrease voice recognition accuracy Inadvertent teenage program director errors may occur 10/03/2023 History of gastric surgery (ICD-10 - Z98.890) #Weight Management 10/03/2023 _update some labs including [...] minimum of 6 months The most recent [employer] of clinical endocrinologists and [employer] end[employer]in[employer] guidelines recommend patients who [...] track activity level. Consider using apps like [email or web address], [facility], lose it, stick as needed for self-monitoring and weight management. Consider group exercises. Consider hiring a personal financial counselor. Regular exercise is shook to sustainable health [...] counseling and psychiatry and Dr Salamanca at [facility]. We would like to cover regular topics [...] software and direct typing Please excuse inadvertent teenage program director or typing errors, or uncorrected word substitutions Although every attempt has been made by the provider to proofread this document, occasional misspellings and typographical errors may still be present Due to the previous pandemic, and the use of personal protective equipment (PPE) This may decrease voice recognition accuracy Inadvertent teenage program director errors may occur 05/09/2023 History of gastric surgery (ICD-10 - Z98.890) Will switch Trulicity to Mounjaro which is a better drug and molecule for diabetes management as well as weight loss Dual incretin's discussed Stop Lantus morning sugars are on the lower end as well as A1c is age-appropriate at 8 Will continue Jardiance SGLT is beneficial for the heart and kidneys Will follow A1c closely Will try and track down records and labs Total time spent today was 60 minutes of which greater than 50% was spent on coordinating and counseling We are a board certified obesity and weight management practice Patient has trialed behavioral modification, dietary restrictions and exercise for a minimum of 6 months The most recent [employer] of clinical endocrinologists and [employer] end[employer]in[employer] guidelines recommend patients who have overweight BMI or obesity BMI, who also have metabolic syndrome, prediabetes, or at risk of developing type 2 diabetes should aim for a weight loss goal of at least 10% of the baseline body weight Patient counseled regarding effects of GLP/GIP-1 agonists, and other FDA approved wgt loss meds with regards to a multifactorial approach of weight loss as mentioned above and not solely appetite suppression. We have discussed the mechanism of GLP-1's/GIP, dual incretins I think this would be fantastic option [...] other nutrients, To help avoid telogen effluvium There is no history of medullary thyroid cancer or multiple endocrine neoplasia There is also no history of cardiovascular disease, hypertension, palpitations, or arrhythmias In the setting of potential stimulant/amphetami ne use such as phentermine We have also discussed risks and benefits, and the use of compounded medications to help offset the national shortages as well as financial implications vs trade name drugs GLP must be discontinued upon initiation We have discussed the lifelong requirement of nutritional supplementation And adherence to an exercise regimen as well as importance of follow-up The patient understands and agrees Patient has been found to be obese with a BMI of (32). Patient has class (1) obesity. Patient was reassured and welcomed to the [...] regimen as well as importance of dietary f/u Patient was educated on the replacement products [...] track activity level. Consider using apps like [email or web address], myfitnesspal, lose it, stick as needed for self-monitoring and weight management. Consider group exercises. Consider hiring a personal financial counselor. Regular exercise is shook to sustainable health [...] and includes phentermine, Topamax,Qsymia, contrave, belviq and saxenda, wegovy All prescription medications could have side effects [...] counseling and psychiatry and Dr Salamanca at [facility]. We would like to cover regular topics [...] software and direct typing Please excuse inadvertent teenage program director or typing errors, or uncorrected word substitutions Although every attempt has been made by the provider to proofread this document, occasional misspellings and typographical errors may still be present Due to the previous pandemic, and the use of personal protective equipment (PPE) This may decrease voice recognition accuracy Inadvertent teenage program director errors may occur 07/04/2023 BMI 31.0-31.9,adult (ICD-10 - Z68.31) #Weight Management 07/04/2023 Instructed to discontinue metformin Hemoglobin A1c downtrending today 6.5 Will continue Jardiance SGLT is beneficial for the heart and kidneys Will follow A1c closely Linzess for constipation Total time spent today was 30 minutes of which greater than 50% was spent on coordinating and counseling Patient has been found to be obese with a BMI of (31). Patient has class (1) obesity. We are a board certified obesity and weight management practice Patient has trialed behavioral modification, dietary restrictions and exercise for a minimum of 6 months The most recent [employer] of clinical endocrinologists and [employer] end[employer]in[employer] guidelines recommend patients who [...] track activity level. Consider using apps like WhoCanHelp[employer], [facility], lose it, stick as needed for self-monitoring and weight management. Consider group exercises. Consider hiring a personal financial counselor. Regular exercise is shook to sustainable health [...] counseling and psychiatry and Dr Salamanca at [facility]. We would like to cover regular topics [...] software and direct typing Please excuse inadvertent teenage program director or typing errors, or uncorrected word substitutions Although every attempt has been made by the provider to proofread this document, occasional misspellings and typographical errors may still be present Due to the previous pandemic, and the use of personal protective equipment (PPE) This may decrease voice recognition accuracy Inadvertent teenage program director errors may occur 11/28/2023 [facility] (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 insulin (ICD-10 - Z79.4) [...] minimum of 6 months The most recent [employer] of clinical endocrinologists and [employer] end[employer]inology guidelines recommend patients who [...] track activity level. Consider using apps like WhoCanHelp[employer], [facility], lose it, stick as needed for self-monitoring and weight management. Consider group exercises. Consider hiring a personal financial counselor. Regular exercise is shook to sustainable health [...] counseling and psychiatry and Dr Salamanca at [facility]. We would like to cover regular topics [...] software and direct typing Please excuse inadvertent teenage program director or typing errors, or uncorrected word substitutions Although every attempt has been made by the provider to proofread this document, occasional misspellings and typographical errors may still be present Due to the previous pandemic, and the use of personal protective equipment (PPE) This may decrease voice recognition accuracy Inadvertent teenage program director errors may occur 11/28/2023 History of gastric [...] minimum of 6 months The most recent [employer] of clinical endocrinologists and [employer] endocrinology guidelines recommend patients who [...] track activity level. Consider using apps like WhoCanHelp.com, [employer], lose it, stick as needed for self-monitoring and weight management. Consider group exercises. Consider hiring a personal financial counselor. Regular exercise is shook to sustainable health [...] counseling and psychiatry and Dr Salamanca at [facility]. We would like to cover regular topics [...] software and direct typing Please excuse inadvertent teenage program director or typing errors, or uncorrected word substitutions Although every attempt has been made by the provider to proofread this document, occasional misspellings and typographical errors may still be present Due to the previous pandemic, and the use of personal protective equipment (PPE) This may decrease voice recognition accuracy Inadvertent teenage program director errors may occur 11/28/2023 Hypothyroidism, unspecified type [...] minimum of 6 months The most recent [employer] of clinical endocrinologists and [employer] of endocrinology guidelines recommend patients who [...] track activity level. Consider using apps like WhoCanHelp[employer]com, [facility], lose it, stick as needed for self-monitoring and weight management. Consider group exercises. Consider hiring a personal financial counselor. Regular exercise is shook to sustainable health [...] counseling and psychiatry and Dr Salamanca at [facility]. We would like to cover regular topics [...] software and direct typing Please excuse inadvertent teenage program director or typing errors, or uncorrected word substitutions Although every attempt has been made by the provider to proofread this document, occasional misspellings and typographical errors may still be present Due to the previous pandemic, and the use of personal protective equipment (PPE) This may decrease voice recognition accuracy Inadvertent teenage program director errors may occur 10/03/2023 Hypothyroidism, unspecified type (ICD-10 - E03.9) #Weight Management 10/03/2023 _update some labs including [...] minimum of 6 months The most recent [employer] of clinical endocrinologists and [employer] of endocrinology guidelines recommend patients who [...] track activity level. Consider using apps like [employer], myfitnesspal, lose it, stick as needed for self-monitoring and weight management. Consider group exercises. Consider hiring a personal financial counselor. Regular exercise is shook to sustainable health [...] counseling and psychiatry and Dr Salamanca at [facility]. We would like to cover regular topics [...] software and direct typing Please excuse inadvertent teenage program director or typing errors, or uncorrected word substitutions Although every attempt has been made by the provider to proofread this document, occasional misspellings and typographical errors may still be present Due to the previous pandemic, and the use of personal protective equipment (PPE) This may decrease voice recognition accuracy Inadvertent teenage program director errors may occur PLAN OF TREATMENT Pending Test Test Name Order Date HEMOGLOBIN A1C 10/03/2023 T4, TOTAL 10/03/2023 TSH 10/03/2023 Insurance Providers Payer Name Payer Address Payer Phone Subscriber Number Group Number Insured Name Patient Relationship to Insured Coverage Start Date Coverage End Date [employer] or Options [address] [place] [id number] Rosie Grimm Self - patient is the insured 3 MEDICAL (GENERAL) HISTORY Medical History History ICD Code Hypothyroidism type II diabetes hydronephrosis Surgical History Surgery Date(Month/Year) hysterectomy left knee replacement right knee replacement hydroneprosis
== END 2024-04-06 13:51 | disposition home or self-care (01) ==
PROVIDERS: PCP Internal Medicine; Visit Provider Surgery Vascular Surgery
DX: I83.12 Varicose veins of left lower extremity with inflammation (principal)
CPT/HCPCS: 99213

== ENCOUNTER → 2024-04-06 12:34 | Outpatient (BNVA) | payer OTHER, SELFPAY | PROVIDERS: PCP Internal Medicine; Visit Provider Surgery Vascular Surgery | DX: I83.12 Varicose veins of left lower extremity with inflammation (principal); Z98.890 Other specified postprocedural states | CPT/HCPCS: 99212 ==

== ENCOUNTER 2024-04-14 10:55 | Outpatient (REF) | payer OTHER, SELFPAY ==
[2024-04-14 14:16] LABS: TSH reflex Free T4 0.47 uIU/mL (0.32-4.0)
--- OUTSIDE RECORDS SUMMARY | 2024-04-15 01:19 | XMS_ITS ---
Author Organization [facility] Address [address] [place] [address] Care Team Providers Care Top Frame Maker Name Role Phone BHUMIKA BUSTOS Unavailable [phone] MEDICATIONS Medication SIG (Take, Route, Fr equency, Duration) Notes Start Date End Date Status Mounjaro 5 MG/0.5ML 5mg Subcutaneous wee kly for 30 days Active Encounters Encounter Location Date Provider Diagnosis [place] [address] [address] 11/28/2023 BHUMIKA MAURONeymar Other obesity due to excess calories E66.09 ; BMI 30.0-30.9,adult Z68.30 ; Type 2 diabetes mellitus without complications E11.9 ; MCFP (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 insulin Z79.4 ; History [...] minimum of 6 months The most recent [place] [employer] of clinical endocrinologists and [place] [employer] of endocrinology guidelines recommend patients who [...] track activity level. Consider using apps like [employer], [employer], lose it, stick as needed for self-monitoring and weight management. Consider group exercises. Consider hiring a personal banking officer. Regular exercise is shook to sustainable health [...] counseling and psychiatry and Dr Salamanca at [email or web address]. We would like to cover regular topics [...] software and direct typing Please excuse inadvertent varying exceptionalities teacher or typing errors, or uncorrected word substitutions Although every attempt has been made by the provider to proofread this document, occasional misspellings and typographical errors may still be present Due to the previous pandemic, and the use of personal protective equipment (PPE) This may decrease voice recognition accuracy Inadvertent varying exceptionalities teacher errors may occur 11/28/2023 BMI 30.0-30.9,adult (ICD-10 [...] minimum of 6 months The most recent [place] [employer] of clinical endocrinologists and [place] [employer] of endocrinology guidelines recommend patients who [...] track activity level. Consider using apps like [employer], [employer], lose it, stick as needed for self-monitoring and weight management. Consider group exercises. Consider hiring a personal banking officer. Regular exercise is shook to sustainable health [...] counseling and psychiatry and Dr Salamanca at [email or web address]. We would like to cover regular topics [...] software and direct typing Please excuse inadvertent varying exceptionalities teacher or typing errors, or uncorrected word substitutions Although every attempt has been made by the provider to proofread this document, occasional misspellings and typographical errors may still be present Due to the previous pandemic, and the use of personal protective equipment (PPE) This may decrease voice recognition accuracy Inadvertent varying exceptionalities teacher errors may occur 11/28/2023 Type 2 diabetes [...] minimum of 6 months The most recent [place] [employer] of clinical endocrinologists and [place] [employer] of endocrinology guidelines recommend patients who [...] track activity level. Consider using apps like [employer], [employer], lose it, stick as needed for self-monitoring and weight management. Consider group exercises. Consider hiring a personal banking officer. Regular exercise is shook to sustainable health [...] counseling and psychiatry and Dr Salamanca at [email or web address]. 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 Consider using apps like [employer], [employer], lose it, stick as needed for self-monitoring and weight management. Consider group exercises. Consider hiring a personal banking officer. Regular exercise is shook to sustainable health [...] counseling and psychiatry and Dr Salamanca at [email or web address]. We would like to cover regular topics [...] software and direct typing Please excuse inadvertent varying exceptionalities teacher or typing errors, or uncorrected word substitutions Although every attempt has been made by the provider to proofread this document, occasional misspellings and typographical errors may still be present Due to the previous pandemic, and the use of personal protective equipment (PPE) This may decrease voice recognition accuracy Inadvertent varying exceptionalities teacher errors may occur 11/28/2023 History of gastric [...] minimum of 6 months The most recent [place] Association of clinical endocrinologists and [place] [employer] of endocrinology guidelines recommend patients who [...] track activity level. Consider using apps like [employer], [employer], lose it, stick as needed for self-monitoring and weight management. Consider group exercises. Consider hiring a personal banking officer. Regular exercise is shook to sustainable health [...] counseling and psychiatry and Dr Salamanca at [email or web address]. We would like to cover regular topics [...] software and direct typing Please excuse inadvertent varying exceptionalities teacher or typing errors, or uncorrected word substitutions Although every attempt has been made by the provider to proofread this document, occasional misspellings and typographical errors may still be present Due to the previous pandemic, and the use of personal protective equipment (PPE) This may decrease voice recognition accuracy Inadvertent varying exceptionalities teacher errors may occur 11/28/2023 Hypothyroidism, unspecified type [...] minimum of 6 months The most recent [place] Association of clinical endocrinologists and [place] [employer] of endocrinology guidelines recommend patients who [...] track activity level. Consider using apps like [employer], myfitnesspal, lose it, stick as needed for self-monitoring and weight management. Consider group exercises. Consider hiring a personal banking officer. Regular exercise is shoko to sustainable health and prevents as a [...] counseling and psychiatry and Dr Salamanca at [email or web address]. We would like to cover regular topics [...] software and direct typing Please excuse inadvertent varying exceptionalities teacher or typing errors, or uncorrected word substitutions Although every attempt has been made by the provider to proofread this document, occasional misspellings and typographical errors may still be present Due to the previous pandemic, and the use of personal protective equipment (PPE) This may decrease voice recognition accuracy Inadvertent varying exceptionalities teacher errors may occur PLAN OF TREATMENT Medication Medication Name Sig Start Date Stop Date Notes Mounjaro 5 MG/0.5ML 5mg Subcutaneous weekly for 30 days Progress Notes * Mayra BERMAN: [birth year] (63 yo F)Acc No.[id number]:11/28/2023 Patient:??Rosie BERMAN Provider:??HBUMIKA BUSTOS NP :1960?Age:63 Y?Sex:Fe male Date:11/28/2023 Address:[address] [place] [address] [id number] Subjective: * Chief Complaints: * ? 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 Had both shots ?RSV: Rx given for [...] Z68.30??3.??Type 2 diabetes mellitus without complications - E11.9??4.??salvage determiner (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 insulin - Z79.4??5.??History of [...] minimum of 6 months The most recent [place] Association of clinical endocrinologists and [place] [employer] of endocrinology guidelines recommend patients who [...] track activity level. Consider using apps like [employer], [employer], lose it, stick as needed for self-monitoring and weight management. Consider group exercises. Consider hiring a personal banking officer. Regular exercise is shook to sustainable health [...] about local counseling and psychiatry and Dr aSlamanca at [email or web address]. We would like to cover regular topics [...] software and direct typing Please excuse inadvertent varying exceptionalities teacher or typing errors, or uncorrected word substitutions Although every attempt has been made by the provider to proofread this document, occasional misspellings and typographical errors may still be present Due to the previous pandemic, and the use of personal protective equipment (PPE) This may decrease voice recognition accuracy Inadvertent varying exceptionalities teacher errors may occur. Plan: * Treatment: * Procedure Codes:??30196 NO S HOW OFFICE VISIT * Images: Billing Information: * Visit Code:?? * Procedure Codes:?? 86745 NO SHOW OFFICE VISIT. 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 Had both shots RSV: Rx given for pharmacy TDap: up-to-date Examination Category Sub-Category Detail Notes Category Not es General Examination GENERAL APPEARANCE: in no ac [place] distress, well developed, well nourished HEAD: normocephalic, [...]
--- OUTSIDE RECORDS SUMMARY | 2024-04-15 01:19 | XMS_ITS ---
Author Organization [facility] Address [address] [place] [address] Care Team Providers Care Fitness And Wellness Coordinator Name Role Phone BHUMIKA BUSTOS Unavailable [phone] REASON FOR VISIT balance Encounters Encounter Location Date Provider Diagnosis [facility] [address] [facility] [address] [place] [address] 02/25/2024 BHUMIKA BUSTOS PLAN OF TREATMENT No Information Progress Notes * Coleen BERMANsDOB: [birth year] (63 yo F)Acc No.[id number]:02/25/2024 Patient:??Rosie BERMAN :1960?Age:63 Y?Sex:Fe male Address:[address] [place] [id number] * true * Date:??
--- OUTSIDE RECORDS SUMMARY | 2024-04-15 01:19 | XMS_ITS ---
Author Organization [facility] Address [address] [place] [address] Care Team Providers Care Right Of Way Worker Name Role Phone BHUMIKA BUSTOS Unavailable [phone] Encounters Encounter Location Date Provider Diagnosis [facility] [address] [place] [address] 12/04/2023 BHUMIKA BUSTOS PLAN OF TREATMENT No Information Progress Notes * Coleen BERMANsDOB: [birth year] (63 yo F)Acc No.[id number]:12/04/2023 Patient:??Rosie BERMAN :1960?Age:63 Y?Sex:Fe male Address:[address] [place] [id number] * true * Date:??
--- OUTSIDE RECORDS SUMMARY | 2024-04-15 01:20 | XMS_ITS | Patient Health Record ---
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 TOTAL T4 8.4 4.5-10.9 ug/dl TSH Reviewed date:10/06/2023 10:16:44 AM Interpretation: Performing Lab: Notes/Report: TSH 0.43 0.40-4.00 uIU/ml GLYCOHEMOGLOBIN PROFILE Reviewed date:10/06/2023 10:16:44 AM Interpretation: Performing Lab: Notes/Report: GLYCATED HEMOGLOBIN A1C 6.4 <6.5 % ESTIMATED AVERAGE GLUCOSE 137 REASON FOR REFERRAL No Information SOCIAL HISTORY [...] diabetes mellitus without complications (E11.9) Active confirmed 591479364 Problem Other obesity due to excess calories (E66.09) Active confirmed 507557805 Problem FPC (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 insulin (Z79.4) Active confirmed 733807965 Problem Hypothyroidism, unspecified type (E03.9) Active confirmed 08187996 Problem Body mass index [BMI] 32.0-32.9, adult (Z68.32) Active confirmed 852141046 Problem BMI 31.0-31.9,adult (Z68.31) Active confirmed 939915387 Problem BMI 30.0-30.9,adult (Z68.30) Active confirmed 140609294 VITAL SIGNS Heart Rate 76 /min 10/03/2023 Oximetry 95 % 10/03/2023 Blood pressure diastolic 84 mm Hg 10/03/2023 Height 61 in 10/03/2023 Blood pressure systolic 120 mm Hg 10/03/2023 Weight 161 lbs 10/03/2023 BMI 30.42 kg/m2 10/03/2023 Encounters Encounter Location Date Provider Diagnosis [place] [id number] 08/13/2023 [place] [address] 11/28/2023 BHUMIKA BUSTOS Other obesity due to excess calories E66.09 ; BMI 30.0-30.9,adult Z68.30 ; Type 2 diabetes mellitus without complications E11.9 ; 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 ; History of gastric surgery Z98.890 and Hypothyroidism, unspecified type E03.9 [place] [address] 05/09/2023 BHUMIKA BUSTOS Other obesity due to excess calories E66.09 ; Body mass index [BMI] 32.0-32.9, adult Z68.32 ; Type 2 diabetes mellitus without complications E11.9 ; 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 and History of gastric surgery Z98.890 [place] [address] 07/04/2023 BHUMIKA BUSTOS Other obesity due to excess calories E66.09 ; Type 2 diabetes mellitus without complications E11.9 ; 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 [address] [facility] [address] [place] [address] 02/25/2024 BHUMIKAJOSE WADENeymar ASSESSMENTS Encounter Date Diagnosis Assessment Notes Treatment [...] minimum of 6 months The most recent [place] Association of clinical endocrinologists and [employer] of endocrinology guidelines recommend patients who [...] track activity level. Consider using apps like TVShow Time, Be At Onepal, lose it, stick as needed for self-monitoring and weight management. Consider group exercises. Consider hiring a personal care home administrator. Regular exercise is shook to sustainable health [...] counseling and psychiatry and Dr Salamanca at [facility]. We would like to cover regular topics [...] software and direct typing Please excuse inadvertent astronomy department chair or typing errors, or uncorrected word substitutions Although every attempt has been made by the provider to proofread this document, occasional misspellings and typographical errors may still be present Due to the previous pandemic, and the use of personal protective equipment (PPE) This may decrease voice recognition accuracy Inadvertent astronomy department chair errors may occur 05/09/2023 Body mass index [...] minimum of 6 months The most recent [place] [employer] of clinical endocrinologists and [employer] of endocrinology guidelines recommend patients who [...] track activity level. Consider using apps like TVShow Time, myfitnesspal, lose it, stick as needed for self-monitoring and weight management. Consider group exercises. Consider hiring a personal care home administrator. Regular exercise is shook to sustainable health [...] counseling and psychiatry and Dr Salamanca at [facility]. We would like to cover regular topics [...] software and direct typing Please excuse inadvertent astronomy department chair or typing errors, or uncorrected word substitutions Although every attempt has been made by the provider to proofread this document, occasional misspellings and typographical errors may still be present Due to the previous pandemic, and the use of personal protective equipment (PPE) This may decrease voice recognition accuracy Inadvertent astronomy department chair errors may occur 07/04/2023 Type 2 diabetes [...] minimum of 6 months The most recent [place] [employer] of clinical endocrinologists and [employer] of endocrinology guidelines recommend patients who [...] track activity level. Consider using apps like TVShow Time, myfitnesspal, lose it, stick as needed for self-monitoring and weight management. Consider group exercises. Consider hiring a personal care home administrator. Regular exercise is shook to sustainable health [...] counseling and psychiatry and Dr Salamanca at [facility]. We would like to cover regular topics [...] software and direct typing Please excuse inadvertent astronomy department chair or typing errors, or uncorrected word substitutions Although every attempt has been made by the provider to proofread this document, occasional misspellings and typographical errors may still be present Due to the previous pandemic, and the use of personal protective equipment (PPE) This may decrease voice recognition accuracy Inadvertent astronomy department chair errors may occur 07/04/2023 Other obesity due [...] minimum of 6 months The most recent [place] [employer] of clinical endocrinologists and [employer] of endocrinology guidelines recommend patients who [...] track activity level. Consider using apps like TVShow Time, Be At Onepal, lose it, stick as needed for self-monitoring and weight management. Consider group exercises. Consider hiring a personal care home administrator. Regular exercise is shook to sustainable health [...] counseling and psychiatry and Dr Salamanca at [facility]. We would like to cover regular topics [...] software and direct typing Please excuse inadvertent astronomy department chair or typing errors, or uncorrected word substitutions Although every attempt has been made by the provider to proofread this document, occasional misspellings and typographical errors may still be present Due to the previous pandemic, and the use of personal protective equipment (PPE) This may decrease voice recognition accuracy Inadvertent astronomy department chair errors may occur 10/03/2023 Other obesity due [...] minimum of 6 months The most recent [place] [employer] of clinical endocrinologists and [employer] of endocrinology guidelines recommend patients who [...] track activity level. Consider using apps like TVShow Time, Be At Onepal, lose it, stick as needed for self-monitoring and weight management. Consider group exercises. Consider hiring a personal care home administrator. Regular exercise is shook to sustainable health [...] counseling and psychiatry and Dr Salamanca at [facility]. We would like to cover regular topics [...] software and direct typing Please excuse inadvertent astronomy department chair or typing errors, or uncorrected word substitutions Although every attempt has been made by the provider to proofread this document, occasional misspellings and typographical errors may still be present Due to the previous pandemic, and the use of personal protective equipment (PPE) This may decrease voice recognition accuracy Inadvertent astronomy department chair errors may occur 10/03/2023 BMI 30.0-30.9,adult (ICD-10 [...] minimum of 6 months The most recent [place] [employer] of clinical endocrinologists and [employer] of endocrinology guidelines recommend patients who [...] track activity level. Consider using apps like TVShow Time, [employer] At Onepal, lose it, stick as needed for self-monitoring and weight management. Consider group exercises. Consider hiring a personal care home administrator. Regular exercise is shook to sustainable health [...] counseling and psychiatry and Dr Salamanca at [facility]. We would like to cover regular topics [...] software and direct typing Please excuse inadvertent astronomy department chair or typing errors, or uncorrected word substitutions Although every attempt has been made by the provider to proofread this document, occasional misspellings and typographical errors may still be present Due to the previous pandemic, and the use of personal protective equipment (PPE) This may decrease voice recognition accuracy Inadvertent astronomy department chair errors may occur 11/28/2023 Other obesity due [...] minimum of 6 months The most recent [place] [employer] of clinical endocrinologists and [employer] of endocrinology guidelines recommend patients who [...] track activity level. Consider using apps like TVShow Time, myfitnesspal, lose it, stick as needed for self-monitoring and weight management. Consider group exercises. Consider hiring a personal care home administrator. Regular exercise is shook to sustainable health [...] counseling and psychiatry and Dr Salamanca at [facility]. We would like to cover regular topics [...] software and direct typing Please excuse inadvertent astronomy department chair or typing errors, or uncorrected word substitutions Although every attempt has been made by the provider to proofread this document, occasional misspellings and typographical errors may still be present Due to the previous pandemic, and the use of personal protective equipment (PPE) This may decrease voice recognition accuracy Inadvertent astronomy department chair errors may occur 11/28/2023 BMI 30.0-30.9,adult (ICD-10 [...] minimum of 6 months The most recent [place] [employer] of clinical endocrinologists and [employer] of endocrinology guidelines recommend patients who [...] track activity level. Consider using apps like TVShow Time, myfitnesspal, lose it, stick as needed for self-monitoring and weight management. Consider group exercises. Consider hiring a personal care home administrator. Regular exercise is shook to sustainable health [...] counseling and psychiatry and Dr Salamanca at [facility]. We would like to cover regular topics [...] software and direct typing Please excuse inadvertent astronomy department chair or typing errors, or uncorrected word substitutions Although every attempt has been made by the provider to proofread this document, occasional misspellings and typographical errors may still be present Due to the previous pandemic, and the use of personal protective equipment (PPE) This may decrease voice recognition accuracy Inadvertent astronomy department chair errors may occur 10/03/2023 Type 2 diabetes [...] minimum of 6 months The most recent [place] [employer] of clinical endocrinologists and [employer] of endocrinology guidelines recommend patients who [...] track activity level. Consider using apps like TVShow Time, myfitnesspal, lose it, stick as needed for self-monitoring and weight management. Consider group exercises. Consider hiring a personal care home administrator. Regular exercise is shook to sustainable health [...] counseling and psychiatry and Dr Salamanca at [facility]. We would like to cover regular topics [...] software and direct typing Please excuse inadvertent astronomy department chair or typing errors, or uncorrected word substitutions Although every attempt has been made by the provider to proofread this document, occasional misspellings and typographical errors may still be present Due to the previous pandemic, and the use of personal protective equipment (PPE) This may decrease voice recognition accuracy Inadvertent astronomy department chair errors may occur 05/09/2023 Type 2 diabetes [...] minimum of 6 months The most recent [place] [employer] of clinical endocrinologists and [employer] of endocrinology guidelines recommend patients who [...] track activity level. Consider using apps like TVShow Time, Be At Onepal, lose it, stick as needed for self-monitoring and weight management. Consider group exercises. Consider hiring a personal care home administrator. Regular exercise is shook to sustainable health [...] counseling and psychiatry and Dr Salamanca at [facility]. We would like to cover regular topics [...] software and direct typing Please excuse inadvertent astronomy department chair or typing errors, or uncorrected word substitutions Although every attempt has been made by the provider to proofread this document, occasional misspellings and typographical errors may still be present Due to the previous pandemic, and the use of personal protective equipment (PPE) This may decrease voice recognition accuracy Inadvertent astronomy department chair errors may occur 07/04/2023 FPC (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 insulin (ICD-10 - Z79.4) [...] minimum of 6 months The most recent [place] Association of clinical endocrinologists and [employer] of endocrinology guidelines recommend patients who [...] track activity level. Consider using apps like TVShow Time, Be At Onepal, lose it, stick as needed for self-monitoring and weight management. Consider group exercises. Consider hiring a personal care home administrator. Regular exercise is shook to sustainable health [...] counseling and psychiatry and Dr Salamanca at [facility]. We would like to cover regular topics [...] software and direct typing Please excuse inadvertent astronomy department chair or typing errors, or uncorrected word substitutions Although every attempt has been made by the provider to proofread this document, occasional misspellings and typographical errors may still be present Due to the previous pandemic, and the use of personal protective equipment (PPE) This may decrease voice recognition accuracy Inadvertent astronomy department chair errors may occur 05/09/2023 FPC (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 insulin (ICD-10 - Z79.4) [...] minimum of 6 months The most recent [place] Association of clinical endocrinologists and [place] [employer] of endocrinology guidelines recommend patients who [...] track activity level. Consider using apps like TVShow Time, [employer], lose it, stick as needed for self-monitoring and weight management. Consider group exercises. Consider hiring a personal care home administrator. Regular exercise is shook to sustainable health [...] counseling and psychiatry and Dr Salamanca at [facility]. We would like to cover regular topics [...] software and direct typing Please excuse inadvertent astronomy department chair or typing errors, or uncorrected word substitutions Although every attempt has been made by the provider to proofread this document, occasional misspellings and typographical errors may still be present Due to the previous pandemic, and the use of personal protective equipment (PPE) This may decrease voice recognition accuracy Inadvertent astronomy department chair errors may occur 07/04/2023 History of gastric surgery (ICD-10 - Z98.890) #Weight Management 07/04/2023 Instructed to discontinue metformin Hemoglobin A1c downtrending today 6.5 Will continue Jardiance SGLT is beneficial for the heart and kidneys Will follow A1c closely Arlettezess for constipation Total time spent today was [...] minimum of 6 months The most recent [place] Association of clinical endocrinologists and [place] [employer] of endocrinology guidelines recommend patients who [...] track activity level. Consider using apps like [employer]Pandaise, myfitnesspal, lose it, stick as needed for self-monitoring and weight management. Consider group exercises. Consider hiring a personal care home administrator. Regular exercise is shook to sustainable health [...] counseling and psychiatry and Dr Salamanca at [facility]. 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 Consider using apps like TVShow Time, myfitnesspal, lose it, stick as needed for self-monitoring and weight management. Consider group exercises. Consider hiring a personal care home administrator. Regular exercise is shook to sustainable health [...] counseling and psychiatry and Dr Salamanca at [facility]. We would like to cover regular topics [...] software and direct typing Please excuse inadvertent astronomy department chair or typing errors, or uncorrected word substitutions Although every attempt has been made by the provider to proofread this document, occasional misspellings and typographical errors may still be present Due to the previous pandemic, and the use of personal protective equipment (PPE) This may decrease voice recognition accuracy Inadvertent astronomy department chair errors may occur 11/28/2023 Type 2 diabetes [...] minimum of 6 months The most recent [place] [employer] of clinical endocrinologists and [employer] of endocrinology guidelines recommend patients who [...] track activity level. Consider using apps like TVShow Time, Be At Onepal, lose it, stick as needed for self-monitoring and weight management. Consider group exercises. Consider hiring a personal care home administrator. Regular exercise is shook to sustainable health [...] counseling and psychiatry and Dr Salamanca at [facility]. We would like to cover regular topics [...] software and direct typing Please excuse inadvertent astronomy department chair or typing errors, or uncorrected word substitutions Although every attempt has been made by the provider to proofread this document, occasional misspellings and typographical errors may still be present Due to the previous pandemic, and the use of personal protective equipment (PPE) This may decrease voice recognition accuracy Inadvertent astronomy department chair errors may occur 10/03/2023 History of gastric [...] minimum of 6 months The most recent [place] Association of clinical endocrinologists and [employer] of endocrinology guidelines recommend patients who [...] track activity level. Consider using apps like TVShow Time, Be At Onepal, lose it, stick as needed for self-monitoring and weight management. Consider group exercises. Consider hiring a personal care home administrator. Regular exercise is shook to sustainable health [...] counseling and psychiatry and Dr Salamanca at [facility]. We would like to cover regular topics [...] software and direct typing Please excuse inadvertent astronomy department chair or typing errors, or uncorrected word substitutions Although every attempt has been made by the provider to proofread this document, occasional misspellings and typographical errors may still be present Due to the previous pandemic, and the use of personal protective equipment (PPE) This may decrease voice recognition accuracy Inadvertent astronomy department chair errors may occur 05/09/2023 History of gastric [...] minimum of 6 months The most recent [place] [employer] of clinical endocrinologists and [employer] of endocrinology guidelines recommend patients who [...] track activity level. Consider using apps like TVShow Time, myfitnesspal, lose it, stick as needed for self-monitoring and weight management. Consider group exercises. Consider hiring a personal care home administrator. Regular exercise is shook to sustainable health [...] counseling and psychiatry and Dr Salamanca at [facility]. We would like to cover regular topics [...] software and direct typing Please excuse inadvertent astronomy department chair or typing errors, or uncorrected word substitutions Although every attempt has been made by the provider to proofread this document, occasional misspellings and typographical errors may still be present Due to the previous pandemic, and the use of personal protective equipment (PPE) This may decrease voice recognition accuracy Inadvertent astronomy department chair errors may occur 07/04/2023 BMI 31.0-31.9,adult (ICD-10 [...] minimum of 6 months The most recent [place] [employer] of clinical endocrinologists and [employer] of endocrinology guidelines recommend patients who [...] track activity level. Consider using apps like TVShow Time, Be At Onepal, lose it, stick as needed for self-monitoring and weight management. Consider group exercises. Consider hiring a personal care home administrator. Regular exercise is shook to sustainable health [...] counseling and psychiatry and Dr Salamanca at [facility]. We would like to cover regular topics [...] software and direct typing Please excuse inadvertent astronomy department chair or typing errors, or uncorrected word substitutions Although every attempt has been made by the provider to proofread this document, occasional misspellings and typographical errors may still be present Due to the previous pandemic, and the use of personal protective equipment (PPE) This may decrease voice recognition accuracy Inadvertent astronomy department chair errors may occur 11/28/2023 FPC (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 insulin (ICD-10 - Z79.4) [...] minimum of 6 months The most recent [place] [employer] of clinical endocrinologists and [employer] of endocrinology guidelines recommend patients who [...] track activity level. Consider using apps like TVShow Time, Be At Onepal, lose it, stick as needed for self-monitoring and weight management. Consider group exercises. Consider hiring a personal care home administrator. Regular exercise is shook to sustainable health [...] counseling and psychiatry and Dr Salamanca at [facility]. We would like to cover regular topics [...] software and direct typing Please excuse inadvertent astronomy department chair or typing errors, or uncorrected word substitutions Although every attempt has been made by the provider to proofread this document, occasional misspellings and typographical errors may still be present Due to the previous pandemic, and the use of personal protective equipment (PPE) This may decrease voice recognition accuracy Inadvertent astronomy department chair errors may occur 11/28/2023 History of gastric [...] minimum of 6 months The most recent [place] [employer] of clinical endocrinologists and [place] [employer] of endocrinology guidelines recommend patients who [...] track activity level. Consider using apps like TV[employer] Time, [employer] [employer]reetz[employer], lose it, stick as needed for self-monitoring and weight management. Consider group exercises. Consider hiring a personal care home administrator. Regular exercise is shook to sustainable health [...] counseling and psychiatry and Dr Salamanca at [facility]. We would like to cover regular topics [...] software and direct typing Please excuse inadvertent astronomy department chair or typing errors, or uncorrected word substitutions Although every attempt has been made by the provider to proofread this document, occasional misspellings and typographical errors may still be present Due to the previous pandemic, and the use of personal protective equipment (PPE) This may decrease voice recognition accuracy Inadvertent astronomy department chair errors may occur 11/28/2023 Hypothyroidism, unspecified type [...] minimum of 6 months The most recent [place] Association of clinical endocrinologists and [employer] College of endocrinology guidelines recommend patients who [...] reading books called The Food Rules by Sirni Zavaleta and Eat Fat Get Lean by [...] track activity level. Consider using apps like TV[employer] Time, [employer] At Onepal, lose it, stick as needed for self-monitoring and weight management. Consider group exercises. Consider hiring a personal care home administrator. Regular exercise is shook to sustainable health [...] counseling and psychiatry and Dr Salamanca at [facility]. We would like to cover regular topics [...] software and direct typing Please excuse inadvertent astronomy department chair or typing errors, or uncorrected word substitutions Although every attempt has been made by the provider to proofread this document, occasional misspellings and typographical errors may still be present Due to the previous pandemic, and the use of personal protective equipment (PPE) This may decrease voice recognition accuracy Inadvertent astronomy department chair errors may occur 10/03/2023 Hypothyroidism, unspecified type [...] minimum of 6 months The most recent [place] Association of clinical endocrinologists and [place] College of endocrinology guidelines recommend patients who [...] track activity level. Consider using apps like PricePandaise, myfitnesspal, lose it, stick as needed for self-monitoring and weight management. Consider group exercises. Consider hiring a personal care home administrator. Regular exercise is shook to sustainable health [...] counseling and psychiatry and Dr Salamanca at [facility]. We would like to cover regular topics [...] software and direct typing Please excuse inadvertent astronomy department chair or typing errors, or uncorrected word substitutions Although every attempt has been made by the provider to proofread this document, occasional misspellings and typographical errors may still be present Due to the previous pandemic, and the use of personal protective equipment (PPE) This may decrease voice recognition accuracy Inadvertent astronomy department chair errors may occur PLAN OF TREATMENT Pending Test Test Name Order Date HEMOGLOBIN A1C 10/03/2023 T4, TOTAL 10/03/2023 TSH 10/03/2023 Insurance Providers Payer Name Payer Address Payer Phone Subscriber Number Group Number Insured Name Patient Relationship to Insured Coverage Start Date Coverage End Date [employer]Donna or Options [address] [place] [id number] Rosie Grimm Self - patient is the insured 3 MEDICAL (GENERAL) HISTORY Medical History History ICD Code Hypothyroidism type II diabetes hydronephrosis Surgical History Surgery Date(Month/Year) hysterectomy left knee replacement right knee replacement hydroneprosis
== END 2024-04-14 10:56 | disposition home or self-care (01) ==
LOC: HO.HHCL 10:55
PROVIDERS: Visit Provider Internal Medicine
DX: E03.9 Hypothyroidism, unspecified (principal)
CPT/HCPCS: 36415; 84443

== ENCOUNTER 2024-04-21 09:53 | Outpatient (AMB) | payer OTHER, SELFPAY ==
--- OUTSIDE RECORDS SUMMARY | 2024-04-21 10:02 | XMS_ITS ---
Author Organization [facility] Address [address] [place] [address] Care Team Providers Care Cow Tender Name Role Phone BHUMIKA BUSTOS Unavailable [phone] Encounters Encounter Location Date Provider Diagnosis [facility] [address] [place] [address] 12/04/2023 BHUMIKA BUSTOS PLAN OF TREATMENT No Information Progress Notes * Coleen BERMANsDOB: [birth year] (63 yo F)Acc No.[id number]:12/04/2023 Patient:??Rosie BERMAN :1960?Age:63 Y?Sex:Fe male Address:[address] [place] [id number] * true * Date:??
--- OUTSIDE RECORDS SUMMARY | 2024-04-21 10:02 | XMS_ITS ---
Author Organization [facility] Address [address] [place] [address] Care Team Providers Care Sports Cartoonist Name Role Phone BHUMIKA BUSTOS Unavailable [phone] REASON FOR VISIT balance Encounters Encounter Location Date Provider Diagnosis [facility] [address] [facility] [address] [place] [address] 02/25/2024 BHUMIKA BUSTOS PLAN OF TREATMENT No Information Progress Notes * Coleen BERMANsDOB: [birth year] (63 yo F)Acc No.[id number]:02/25/2024 Patient:??Rosie BERMAN :1960?Age:63 Y?Sex:Fe male Address:[address] [place] [id number] * true * Date:??
--- OUTSIDE RECORDS SUMMARY | 2024-04-21 10:02 | XMS_ITS ---
Author Organization [facility] Address [address] [place] [address] Care Team Providers Care Lap Winding Machine Operator Name Role Phone BHUMIKA BUSTOS Unavailable [phone] MEDICATIONS Medication SIG (Take, Route, Fr equency, Duration) Notes Start Date End Date Status Mounjaro 5 MG/0.5ML 5mg Subcutaneous wee kly for 30 days Active Encounters Encounter Location Date Provider Diagnosis [place] [address] [address] 11/28/2023 BHUMIKA MAURONeymar Other obesity due to excess calories E66.09 ; BMI 30.0-30.9,adult Z68.30 ; Type 2 diabetes mellitus without complications E11.9 ; MCC (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 insulin Z79.4 ; History [...] minimum of 6 months The most recent [place] Association of clinical endocrinologists and [place] College of endocrinology guidelines recommend patients who [...] track activity level. Consider using apps like Hashtagoise, myfitFitonic AGpal, lose it, stick as needed for self-monitoring and weight management. Consider group exercises. Consider hiring a industrial trainer. Regular exercise is shook to sustainable [...] counseling and psychiatry and Dr Salamanca at [facility]. We would like to cover regular topics [...] and direct typing Please excuse inadvertent director of cardiology service line or typing errors, or uncorrected word substitutions Although every attempt has been made by the provider to proofread this document, occasional misspellings and typographical errors may still be present Due to the previous pandemic, and the use of personal protective equipment (PPE) This may decrease voice recognition accuracy Inadvertent director of cardiology service line errors may occur 11/28/2023 BMI 30.0-30.9,adult (ICD-10 [...] minimum of 6 months The most recent [place] Association of clinical endocrinologists and [place] College of endocrinology guidelines recommend patients who [...] track activity level. Consider using apps like TriActive, myfitnesspal, lose it, stick as needed for self-monitoring and weight management. Consider group exercises. Consider hiring a industrial trainer. Regular exercise is shook to sustainable [...] counseling and psychiatry and Dr Salamanca at [facility]. We would like to cover regular topics [...] and direct typing Please excuse inadvertent director of cardiology service line or typing errors, or uncorrected word substitutions Although every attempt has been made by the provider to proofread this document, occasional misspellings and typographical errors may still be present Due to the previous pandemic, and the use of personal protective equipment (PPE) This may decrease voice recognition accuracy Inadvertent director of cardiology service line errors may occur 11/28/2023 Type 2 diabetes [...] minimum of 6 months The most recent [place] Association of clinical endocrinologists and [place] College of endocrinology guidelines recommend patients who [...] track activity level. Consider using apps like TriActive, myfitnesspal, lose it, stick as needed for self-monitoring and weight management. Consider group exercises. Consider hiring a industrial trainer. Regular exercise is shook to sustainable [...] counseling and psychiatry and Dr Salamanca at [facility]. 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 Consider using apps like TriActive, Yo-Fi Wellnesspal, lose it, stick as needed for self-monitoring and weight management. Consider group exercises. Consider hiring a industrial trainer. Regular exercise is shook to sustainable [...] counseling and psychiatry and Dr Salamanca at [facility]. We would like to cover regular topics [...] and direct typing Please excuse inadvertent director of cardiology service line or typing errors, or uncorrected word substitutions Although every attempt has been made by the provider to proofread this document, occasional misspellings and typographical errors may still be present Due to the previous pandemic, and the use of personal protective equipment (PPE) This may decrease voice recognition accuracy Inadvertent director of cardiology service line errors may occur 11/28/2023 History of gastric [...] minimum of 6 months The most recent [place] Association of clinical endocrinologists and [place] College of endocrinology guidelines recommend patients who [...] track activity level. Consider using apps like TriActive, Yo-Fi Wellnesspal, lose it, stick as needed for self-monitoring and weight management. Consider group exercises. Consider hiring a industrial trainer. Regular exercise is shook to sustainable [...] counseling and psychiatry and Dr Salamanca at [facility]. We would like to cover regular topics [...] and direct typing Please excuse inadvertent director of cardiology service line or typing errors, or uncorrected word substitutions Although every attempt has been made by the provider to proofread this document, occasional misspellings and typographical errors may still be present Due to the previous pandemic, and the use of personal protective equipment (PPE) This may decrease voice recognition accuracy Inadvertent director of cardiology service line errors may occur 11/28/2023 Hypothyroidism, unspecified type [...] minimum of 6 months The most recent [place] Association of clinical endocrinologists and [place] College of endocrinology guidelines recommend patients who [...] track activity level. Consider using apps like TriActive, myfitnesspal, lose it, stick as needed for self-monitoring and weight management. Consider group exercises. Consider hiring a industrial trainer. Regular exercise is shook to sustainable [...] counseling and psychiatry and Dr Salamanca at [facility]. We would like to cover regular topics [...] and direct typing Please excuse inadvertent director of cardiology service line or typing errors, or uncorrected word substitutions Although every attempt has been made by the provider to proofread this document, occasional misspellings and typographical errors may still be present Due to the previous pandemic, and the use of personal protective equipment (PPE) This may decrease voice recognition accuracy Inadvertent director of cardiology service line errors may occur PLAN OF TREATMENT Medication Medication Name Sig Start Date Stop Date Notes Mounjaro 5 MG/0.5ML 5mg Subcutaneous weekly for 30 days Progress Notes * Mayra BERMAN: [birth year] (63 yo F)Acc No.[id number]:11/28/2023 Patient:??Rosie BERMAN Provider:??BHUMIKA BUSTOS NP :1960?Age:63 Y?Sex:Fe male Date:11/28/2023 Address:[address] [place] [address] [address] [facility] Subjective: * Chief Complaints: * ? * [...] weekly, Jardiance 25mg, Lantus [address] 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 Consider using apps like TriActive, Yo-Fi Wellnesspal, lose it, stick as needed for self-monitoring and weight management. Consider group exercises. Consider hiring a industrial trainer. Regular exercise is shook to sustainable [...] counseling and psychiatry and Dr Salamanca at [facility]. We would like to cover regular topics [...] and direct typing Please excuse inadvertent director of cardiology service line or typing errors, or uncorrected word substitutions Although every attempt has been made by the provider to proofread this document, occasional misspellings and typographical errors may still be present Due to the previous pandemic, and the use of personal protective equipment (PPE) This may decrease voice recognition accuracy Inadvertent director of cardiology service line errors may occur. Plan: * Treatment: * Procedure Codes:??12223 NO S HOW OFFICE VISIT * Images: Billing Information: * Visit Code:?? * Procedure Codes:?? 25223 NO SHOW OFFICE VISIT. 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 Had both shots RSV: Rx given for pharmacy TDap: up-to-date Examination Category Sub-Category Detail Notes Category Not es General Examination GENERAL APPEARANCE: in no ac [place] ira distress, well developed, well nourished HEAD: normocephalic, [...]
--- OUTSIDE RECORDS SUMMARY | 2024-04-21 10:02 | XMS_ITS | Patient Health Record ---
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 4.5-10.9 ug/dl REASON FOR [...] diabetes mellitus without complications (E11.9) Active confirmed 227953210 Problem Other obesity due to excess calories (E66.09) Active confirmed 674975502 Problem MCC (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 insulin (Z79.4) Active confirmed 685163335 Problem Hypothyroidism, unspecified type (E03.9) Active confirmed 73402828 Problem Body mass index [BMI] 32.0-32.9, adult (Z68.32) Active confirmed 160069278 Problem BMI 31.0-31.9,adult (Z68.31) Active confirmed 206431384 Problem BMI 30.0-30.9,adult (Z68.30) Active confirmed 240145644 VITAL SIGNS Heart Rate 76 /min 10/03/2023 Oximetry 95 % 10/03/2023 Blood pressure diastolic 84 mm Hg 10/03/2023 Height 61 in 10/03/2023 Blood pressure systolic 120 mm Hg 10/03/2023 Weight 161 lbs 10/03/2023 BMI 30.42 kg/m2 10/03/2023 Encounters Encounter Location Date Provider Diagnosis [place] [id number] [address] 08/13/2023 [place] [id number] 11/28/2023 BHUMIKA BUSTOS Other obesity due to excess calories E66.09 ; BMI 30.0-30.9,adult Z68.30 ; Type 2 diabetes mellitus without complications E11.9 ; MCC (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 insulin Z79.4 ; History of gastric surgery Z98.890 and Hypothyroidism, unspecified type E03.9 [place] [id number] 05/09/2023 BHUMIKA BUSTOS Other obesity due to excess calories E66.09 ; Body mass index [BMI] 32.0-32.9, adult Z68.32 ; Type 2 diabetes mellitus without complications E11.9 ; 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 and History of gastric surgery Z98.890 [place] [address] 07/04/2023 BHUMIKA BUSTOS Other obesity due to excess calories E66.09 ; Type 2 diabetes mellitus without complications E11.9 ; 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 ; History of gastric surgery Z98.890 and BMI 31.0-31.9,adult Z68.31 [place] [address] [address] 10/03/2023 BHUMIKA BUSTOS Other obesity due to excess calories E66.09 ; BMI 30.0-30.9,adult Z68.30 ; Type 2 diabetes mellitus without complications E11.9 ; 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 ; History of gastric surgery Z98.890 and Hypothyroidism, unspecified type E03.9 [facility] [address] [place] [address] 08/29/2023 BHUMIKA BUSTOS [facility] [address] [place] [address] 12/04/2023 [facility]IKA [facility]AD[facility] [address] [address] 02/25/2024 BHUMIKA BORCRYSTAL ASSESSMENTS Encounter Date Diagnosis [...] minimum of 6 months The most recent [place] [employer] of clinical endocrinologists and [place] [employer] of endocrin[employer] guidelines recommend patients who [...] track activity level. Consider using apps like [employer], [employer], lose it, stick as needed for self-monitoring and weight management. Consider group exercises. Consider hiring a manager personal. Regular exercise is shook to sustainable health [...] counseling and psychiatry and Dr Salamanca at [facility]. We would like to cover regular topics [...] software and direct typing Please excuse inadvertent central supply tech or typing errors, or uncorrected word substitutions Although every attempt has been made by the provider to proofread this document, occasional misspellings and typographical errors may still be present Due to the previous pandemic, and the use of personal protective equipment (PPE) This may decrease voice recognition accuracy Inadvertent central supply tech errors may occur 05/09/2023 Body mass index [...] minimum of 6 months The most recent [place] [employer] of clinical endocrinologists and [place] [employer] of endocrinology guidelines recommend patients who [...] track activity level. Consider using apps like [employer], [employer], lose it, stick as needed for self-monitoring and weight management. Consider group exercises. Consider hiring a manager personal. Regular exercise is shook to sustainable health [...] counseling and psychiatry and Dr Salamanca at [facility]. We would like to cover regular topics [...] software and direct typing Please excuse inadvertent central supply tech or typing errors, or uncorrected word substitutions Although every attempt has been made by the provider to proofread this document, occasional misspellings and typographical errors may still be present Due to the previous pandemic, and the use of personal protective equipment (PPE) This may decrease voice recognition accuracy Inadvertent central supply tech errors may occur 07/04/2023 Type 2 diabetes [...] minimum of 6 months The most recent [place] [employer] of clinical endocrinologists and [place] [employer] of endocrinology guidelines recommend patients who [...] track activity level. Consider using apps like [employer], [employer], lose it, stick as needed for self-monitoring and weight management. Consider group exercises. Consider hiring a manager personal. Regular exercise is shook to sustainable health [...] counseling and psychiatry and Dr Salamanca at [facility]. We would like to cover regular topics [...] software and direct typing Please excuse inadvertent central supply tech or typing errors, or uncorrected word substitutions Although every attempt has been made by the provider to proofread this document, occasional misspellings and typographical errors may still be present Due to the previous pandemic, and the use of personal protective equipment (PPE) This may decrease voice recognition accuracy Inadvertent central supply tech errors may occur 07/04/2023 Other obesity due [...] minimum of 6 months The most recent [place] [employer] of clinical endocrinologists and [place] [employer] of endocrinology guidelines recommend patients who [...] track activity level. Consider using apps like [employer], [employer], lose it, stick as needed for self-monitoring and weight management. Consider group exercises. Consider hiring a manager personal. Regular exercise is shook to sustainable health [...] counseling and psychiatry and Dr Salamanca at [facility]. We would like to cover regular topics [...] software and direct typing Please excuse inadvertent central supply tech or typing errors, or uncorrected word substitutions Although every attempt has been made by the provider to proofread this document, occasional misspellings and typographical errors may still be present Due to the previous pandemic, and the use of personal protective equipment (PPE) This may decrease voice recognition accuracy Inadvertent central supply tech errors may occur 10/03/2023 Other obesity due [...] minimum of 6 months The most recent [place] [employer] of clinical endocrinologists and [place] [employer] of endocrinology guidelines recommend patients who [...] track activity level. Consider using apps like [employer], [employer], lose it, stick as needed for self-monitoring and weight management. Consider group exercises. Consider hiring a manager personal. Regular exercise is shook to sustainable health [...] counseling and psychiatry and Dr Salamanca at [facility]. We would like to cover regular topics [...] software and direct typing Please excuse inadvertent central supply tech or typing errors, or uncorrected word substitutions Although every attempt has been made by the provider to proofread this document, occasional misspellings and typographical errors may still be present Due to the previous pandemic, and the use of personal protective equipment (PPE) This may decrease voice recognition accuracy Inadvertent central supply tech errors may occur 10/03/2023 BMI 30.0-30.9,adult (ICD-10 [...] minimum of 6 months The most recent [place] [employer] of clinical endocrinologists and [place] [employer] of endocrinology guidelines recommend patients who [...] track activity level. Consider using apps like [employer], [employer], lose it, stick as needed for self-monitoring and weight management. Consider group exercises. Consider hiring a manager personal. Regular exercise is shook to sustainable health [...] counseling and psychiatry and Dr Salamanca at [facility]. We would like to cover regular topics [...] software and direct typing Please excuse inadvertent central supply tech or typing errors, or uncorrected word substitutions Although every attempt has been made by the provider to proofread this document, occasional misspellings and typographical errors may still be present Due to the previous pandemic, and the use of personal protective equipment (PPE) This may decrease voice recognition accuracy Inadvertent central supply tech errors may occur 11/28/2023 Other obesity due [...] minimum of 6 months The most recent [place] [employer] of clinical endocrinologists and [place] [employer] of endocrinology guidelines recommend patients who [...] track activity level. Consider using apps like [employer], [employer], lose it, stick as needed for self-monitoring and weight management. Consider group exercises. Consider hiring a manager personal. Regular exercise is shook to sustainable health [...] counseling and psychiatry and Dr Salamanca at [facility]. We would like to cover regular topics [...] software and direct typing Please excuse inadvertent central supply tech or typing errors, or uncorrected word substitutions Although every attempt has been made by the provider to proofread this document, occasional misspellings and typographical errors may still be present Due to the previous pandemic, and the use of personal protective equipment (PPE) This may decrease voice recognition accuracy Inadvertent central supply tech errors may occur 11/28/2023 BMI 30.0-30.9,adult (ICD-10 [...] minimum of 6 months The most recent [place] [employer] of clinical endocrinologists and [place] [employer] of endocrinology guidelines recommend patients who [...] track activity level. Consider using apps like [employer], [employer], lose it, stick as needed for self-monitoring and weight management. Consider group exercises. Consider hiring a manager personal. Regular exercise is shook to sustainable health [...] counseling and psychiatry and Dr Salamanca at [facility]. We would like to cover regular topics [...] software and direct typing Please excuse inadvertent central supply tech or typing errors, or uncorrected word substitutions Although every attempt has been made by the provider to proofread this document, occasional misspellings and typographical errors may still be present Due to the previous pandemic, and the use of personal protective equipment (PPE) This may decrease voice recognition accuracy Inadvertent central supply tech errors may occur 10/03/2023 Type 2 diabetes [...] minimum of 6 months The most recent [place] [employer] of clinical endocrinologists and [place] [employer] of endocrinology guidelines recommend patients who [...] track activity level. Consider using apps like [employer], [employer], lose it, stick as needed for self-monitoring and weight management. Consider group exercises. Consider hiring a manager personal. Regular exercise is shook to sustainable health [...] counseling and psychiatry and Dr Salamanca at [facility]. We would like to cover regular topics [...] software and direct typing Please excuse inadvertent central supply tech or typing errors, or uncorrected word substitutions Although every attempt has been made by the provider to proofread this document, occasional misspellings and typographical errors may still be present Due to the previous pandemic, and the use of personal protective equipment (PPE) This may decrease voice recognition accuracy Inadvertent central supply tech errors may occur 05/09/2023 Type 2 diabetes [...] minimum of 6 months The most recent [place] [employer] of clinical endocrinologists and [place] [employer] of endocrinology guidelines recommend patients who [...] track activity level. Consider using apps like [employer], [employer], lose it, stick as needed for self-monitoring and weight management. Consider group exercises. Consider hiring a manager personal. Regular exercise is shook to sustainable health [...] counseling and psychiatry and Dr Salamanca at [facility]. We would like to cover regular topics [...] software and direct typing Please excuse inadvertent central supply tech or typing errors, or uncorrected word substitutions Although every attempt has been made by the provider to proofread this document, occasional misspellings and typographical errors may still be present Due to the previous pandemic, and the use of personal protective equipment (PPE) This may decrease voice recognition accuracy Inadvertent central supply tech errors may occur 07/04/2023 MCC (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 insulin (ICD-10 - Z79.4) [...] minimum of 6 months The most recent [place] [employer] of clinical endocrinologists and [place] [employer] of endocrinology guidelines recommend patients who [...] track activity level. Consider using apps like [employer], [employer], lose it, stick as needed for self-monitoring and weight management. Consider group exercises. Consider hiring a manager personal. Regular exercise is shook to sustainable health [...] counseling and psychiatry and Dr Salamanca at [facility]. We would like to cover regular topics [...] software and direct typing Please excuse inadvertent central supply tech or typing errors, or uncorrected word substitutions Although every attempt has been made by the provider to proofread this document, occasional misspellings and typographical errors may still be present Due to the previous pandemic, and the use of personal protective equipment (PPE) This may decrease voice recognition accuracy Inadvertent central supply tech errors may occur 05/09/2023 MCC (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 insulin (ICD-10 - Z79.4) [...] minimum of 6 months The most recent [place] [employer] of clinical endocrinologists and [place] [employer] of endocrinology guidelines recommend patients who [...] track activity level. Consider using apps like [employer], [employer], lose it, stick as needed for self-monitoring and weight management. Consider group exercises. Consider hiring a manager personal. Regular exercise is shook to sustainable health [...] counseling and psychiatry and Dr Salamanca at [facility]. We would like to cover regular topics [...] software and direct typing Please excuse inadvertent central supply tech or typing errors, or uncorrected word substitutions Although every attempt has been made by the provider to proofread this document, occasional misspellings and typographical errors may still be present Due to the previous pandemic, and the use of personal protective equipment (PPE) This may decrease voice recognition accuracy Inadvertent central supply tech errors may occur 07/04/2023 History of gastric [...] minimum of 6 months The most recent [place] [employer] of clinical endocrinologists and [place] [employer] of endocrinology guidelines recommend patients who [...] track activity level. Consider using apps like [employer], [employer], lose it, stick as needed for self-monitoring and weight management. Consider group exercises. Consider hiring a manager personal. Regular exercise is shook to sustainable health [...] counseling and psychiatry and Dr Salamanca at [facility]. 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 Consider using apps like [employer], [employer], lose it, stick as needed for self-monitoring and weight management. Consider group exercises. Consider hiring a manager personal. Regular exercise is shook to sustainable health [...] counseling and psychiatry and Dr Salamanca at [facility]. We would like to cover regular topics [...] software and direct typing Please excuse inadvertent central supply tech or typing errors, or uncorrected word substitutions Although every attempt has been made by the provider to proofread this document, occasional misspellings and typographical errors may still be present Due to the previous pandemic, and the use of personal protective equipment (PPE) This may decrease voice recognition accuracy Inadvertent central supply tech errors may occur 11/28/2023 Type 2 diabetes [...] minimum of 6 months The most recent [place] [employer] of clinical endocrinologists and [place] [employer] of endocrinology guidelines recommend patients who [...] track activity level. Consider using apps like [employer], [employer], lose it, stick as needed for self-monitoring and weight management. Consider group exercises. Consider hiring a manager personal. Regular exercise is shook to sustainable health [...] counseling and psychiatry and Dr Salamanca at [facility]. We would like to cover regular topics [...] software and direct typing Please excuse inadvertent central supply tech or typing errors, or uncorrected word substitutions Although every attempt has been made by the provider to proofread this document, occasional misspellings and typographical errors may still be present Due to the previous pandemic, and the use of personal protective equipment (PPE) This may decrease voice recognition accuracy Inadvertent central supply tech errors may occur 10/03/2023 History of gastric [...] minimum of 6 months The most recent [place] [employer] of clinical endocrinologists and [place] [employer] of endocrinology guidelines recommend patients who [...] track activity level. Consider using apps like [employer], [employer], lose it, stick as needed for self-monitoring and weight management. Consider group exercises. Consider hiring a manager personal. Regular exercise is shook to sustainable health [...] counseling and psychiatry and Dr Salamanca at [facility]. We would like to cover regular topics [...] software and direct typing Please excuse inadvertent central supply tech or typing errors, or uncorrected word substitutions Although every attempt has been made by the provider to proofread this document, occasional misspellings and typographical errors may still be present Due to the previous pandemic, and the use of personal protective equipment (PPE) This may decrease voice recognition accuracy Inadvertent central supply tech errors may occur 05/09/2023 History of gastric [...] minimum of 6 months The most recent [place] [employer] of clinical endocrinologists and [place] [employer] of endocrinology guidelines recommend patients who [...] track activity level. Consider using apps like [employer], [employer], lose it, stick as needed for self-monitoring and weight management. Consider group exercises. Consider hiring a manager personal. Regular exercise is shook to sustainable health [...] counseling and psychiatry and Dr Salamanca at [facility]. We would like to cover regular topics [...] software and direct typing Please excuse inadvertent central supply tech or typing errors, or uncorrected word substitutions Although every attempt has been made by the provider to proofread this document, occasional misspellings and typographical errors may still be present Due to the previous pandemic, and the use of personal protective equipment (PPE) This may decrease voice recognition accuracy Inadvertent central supply tech errors may occur 07/04/2023 BMI 31.0-31.9,adult (ICD-10 [...] minimum of 6 months The most recent [place] [employer] of clinical endocrinologists and [place] [employer] of endocrinology guidelines recommend patients who [...] track activity level. Consider using apps like [employer], [employer], lose it, stick as needed for self-monitoring and weight management. Consider group exercises. Consider hiring a manager personal. Regular exercise is shook to sustainable health [...] counseling and psychiatry and Dr Salamanca at [facility]. We would like to cover regular topics [...] software and direct typing Please excuse inadvertent central supply tech or typing errors, or uncorrected word substitutions Although every attempt has been made by the provider to proofread this document, occasional misspellings and typographical errors may still be present Due to the previous pandemic, and the use of personal protective equipment (PPE) This may decrease voice recognition accuracy Inadvertent central supply tech errors may occur 11/28/2023 MCC (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 insulin (ICD-10 - Z79.4) [...] minimum of 6 months The most recent [place] [employer] of clinical endocrinologists and [place] [employer] of endocrinology guidelines recommend patients who [...] track activity level. Consider using apps like [employer], [employer], lose it, stick as needed for self-monitoring and weight management. Consider group exercises. Consider hiring a manager personal. Regular exercise is shook to sustainable health [...] counseling and psychiatry and Dr Salamanca at [facility]. We would like to cover regular topics [...] software and direct typing Please excuse inadvertent central supply tech or typing errors, or uncorrected word substitutions Although every attempt has been made by the provider to proofread this document, occasional misspellings and typographical errors may still be present Due to the previous pandemic, and the use of personal protective equipment (PPE) This may decrease voice recognition accuracy Inadvertent central supply tech errors may occur 11/28/2023 History of gastric [...] minimum of 6 months The most recent [place] [employer] of clinical endocrinologists and [place] [employer] of endocrinology guidelines recommend patients who [...] track activity level. Consider using apps like [employer], [employer], lose it, stick as needed for self-monitoring and weight management. Consider group exercises. Consider hiring a manager personal. Regular exercise is shook to sustainable health [...] counseling and psychiatry and Dr Salamanca at [facility]. We would like to cover regular topics [...] software and direct typing Please excuse inadvertent central supply tech or typing errors, or uncorrected word substitutions Although every attempt has been made by the provider to proofread this document, occasional misspellings and typographical errors may still be present Due to the previous pandemic, and the use of personal protective equipment (PPE) This may decrease voice recognition accuracy Inadvertent central supply tech errors may occur 11/28/2023 Hypothyroidism, unspecified type [...] minimum of 6 months The most recent [place] [employer] of clinical endocrinologists and [place] [employer] of endocrinology guidelines recommend patients who [...] track activity level. Consider using apps like [employer], [employer], lose it, stick as needed for self-monitoring and weight management. Consider group exercises. Consider hiring a manager personal. Regular exercise is shook to sustainable health [...] counseling and psychiatry and Dr Salamanca at [facility]. We would like to cover regular topics [...] software and direct typing Please excuse inadvertent central supply tech or typing errors, or uncorrected word substitutions Although every attempt has been made by the provider to proofread this document, occasional misspellings and typographical errors may still be present Due to the previous pandemic, and the use of personal protective equipment (PPE) This may decrease voice recognition accuracy Inadvertent central supply tech errors may occur 10/03/2023 Hypothyroidism, unspecified type [...] minimum of 6 months The most recent [place] [employer] of clinical endocrinologists and [place] [employer] of endocrinology guidelines recommend patients who [...] track activity level. Consider using apps like [employer], myfitnesspal, lose it, stick as needed for self-monitoring and weight management. Consider group exercises. Consider hiring a manager personal. Regular exercise is shook to sustainable health [...] counseling and psychiatry and Dr Salamanca at [facility]. We would like to cover regular topics [...] software and direct typing Please excuse inadvertent central supply tech or typing errors, or uncorrected word substitutions Although every attempt has been made by the provider to proofread this document, occasional misspellings and typographical errors may still be present Due to the previous pandemic, and the use of personal protective equipment (PPE) This may decrease voice recognition accuracy Inadvertent central supply tech errors may occur PLAN OF TREATMENT Pending Test Test Name Order Date HEMOGLOBIN A1C 10/03/2023 T4, TOTAL 10/03/2023 TSH 10/03/2023 Insurance Providers Payer Name Payer Address Payer Phone Subscriber Number Group Number Insured Name Patient Relationship to Insured Coverage Start Date Coverage End Date [employer]/Donna or Options [address] [place] [id number] Rosie Grimm Self - patient is the insured 3 MEDICAL (GENERAL) HISTORY Medical History History ICD Code Hypothyroidism type II diabetes hydronephrosis Surgical History Surgery Date(Month/Year) hysterectomy left knee replacement right knee replacement hydroneprosis
--- OUTSIDE RECORDS SUMMARY | 2024-04-21 10:02 | XMS_ITS | Continuity of Care Document ---
Author Organization [facility] Kat ronel Address [address] [place] [address] ve [address] [place] [address]- Care Team Providers Care Investigative Shopper Name Role Phone Mateo Freeman MD, Ginette Carty Primary Care Physici an [place] [facility] [place]): [place]16[place]24 - 04/15/24 [facility] [address] [address] Attending Physician: AdmLive harper Admitting Physician: AdmtrLive Referring Physician: Admtr, Ar8 Encounter Type: Triage Allergies, Adverse Reactions, Alerts Substance Criticality Severity [...] 2 Refills, Maintenance, 07/05/20 1:44:00 PM EST[facility], 154.9, cm, 01/26/20 13:53:00 EDT, Height, 83.9, kg, 01/20/19 5:07:00 EDT, Dry Weight Start Date: 07/05/20 Status: Ordered Quantity: 12.0 Unit: tablet Repeat number: 3 amLODIPine 10 mg oral tablet 1 tablet, By Mouth, Daily, # 90 tablet, 1 Refills, Maintenance, 04/15/23 7:30:00 PM EST, [id number], 155, cm, 04/04/23 11:33:00 EST, Height Start Date: 04/15/23 Status: Ordered Quantity: 90.0 Unit: tablet Repeat number: 2 atorvastatin 20 mg oral tablet 1 tablet, By Mouth, Daily, # 90 tablet, 1 Refills, Maintenance, 01/28/20 4:12:00 PM EDT, [facility], 154.9, cm, 01/26/20 13:53:00 EDT, Height, 83.9, kg, 01/20/19 5:07:00 EDT, Dry Weight Start Date: 01/28/20 Status: Ordered Quantity: 90.0 Unit: tablet Repeat number: 2 D 1000 IU oral tablet 1 tablet, By Mouth, Daily, # 90 tablet, 1 Refills, Maintenance, 08/07/20 4:16:00 PM EDT, [facility], 154.9, cm, 01/26/20 13:53:00 EDT, Height, 83.9, kg, 01/20/19 5:07:00 EDT, Dry Weight Start Date: 08/07/20 Status: Ordered Quantity: 90.0 Unit: tablet Repeat number: 2 D 1000 IU oral tablet See Instructions, TAKE 1 TABLET BY MOUTH ONCE A DAY, # 90 tablet, 1 Refills, Maintenance[facility], 154.9, cm, 01/26/20 13:53:00 EDT, Height, 83.9, kg, 01/20/19 5:07:00 EDT, Dry Weight Start Date: 08/07/20 Status: Ordered Quantity: 90.0 Unit: tablet Repeat number: 2 FLUoxetine 20 mg oral capsule 1, capsule, By Mouth, Daily, # 180 capsule, Refills 1, Tot. Refills 0, Maintenance, 08/24/20 7:16:00AM EDT, Route to Pharmacy Electronically, [facility], 154.9, cm, 01/26/20 13:53:00 EDT, Height, 83.9, kg, 01/20/19 5:07:00 EDT, Dry Weight Start Date: 08/24/20 Status: Ordered Quantity: 180.0 Unit: capsule Repeat number: 1 fluticasone 50 mcg/inh nasal spray See Instructions, SHAKE LIQUID AND USE 2 SPRAYS IN EACH NOSTRIL EVERY MORNING, # 48 Gm, 3 Refills, 04/15/23 7:29:00 PM EST, [facility] #[id number], 30, SHAKE LIQUID AND USE 2 SPRAYS [...] Replace Required Details, Route to Pharmacy Electronically, [facility], 154.9, cm, 01/26/20 13:53:00 EDT, Height, 83.9, kg, 01/20/19 5:07:00 EDT, Dry Weight Start Date: 08/23/20 Status: Ordered Quantity: 90.0 Unit: tablet Repeat number: 1 gabapentin 400 mg oral capsule 1, capsule, By Mouth, Daily at bedtime, # 90 capsule, Refills 1, Tot. Refills 1, Maintenance, 05/22/21 2:58:00 PM EST, Route to Pharmacy Electronically, [facility] #[id number], 154.9, cm, 04/04/21 10:55:00 EST, Height Start [...] 1 Refills, Maintenance, 01/12/20 6:02:00 PM EDT, [facility], 28, TAKE 1 TABLET BY MOUTH EVERY EVENING, 154.9, cm, 07/09/19 13:43:00 EST, Height, 83.9, kg, 01/20/19 5:07:00 EDT, Dry Weight Start Date: 01/12/20 Status: Ordered Quantity: 90.0 Unit: tablet Repeat number: 1 Jardiance 10 mg oral tablet 1 tablet, By Mouth, Daily in AM, # 90 tablet, 1 Refills, Maintenance, 12/16/19 11:47:00 AM EDT, [facility], 154.9, cm, 07/09/19 13:43:00 EST, Height, 83.9, kg, 01/20/19 5:07:00 EDT, Dry Weight Start Date: 12/16/19 Status: Ordered Quantity: 90.0 Unit: tablet Repeat number: 1 lisinopril 40 mg oral tablet See Instructions, TAKE 1 TABLET BY MOUTH ONCE A DAY, # 90 tablet, 0 Refills, [facility], 154.9, cm, 09/06/20 14:25:00 EDT, Height, [...] Maintenance, 09/27/22 3:02:00 PM EDT, ER Capsule, [facility] #[id number], Partial fill upon patient request if the prescription is for a schedule II opioid drug., 155, cm, 09/27/22 14:35:00 EDT, Height Start Date: 09/27/22 Stop Date: 03/26/23 Status: Ordered Quantity: 90.0 Unit: capsule Repeat number: 2 Metoprolol Succinate ER 100 mg oral tablet, extended release 1 tablet, By Mouth, Daily, # 90 tablet, 1 Refills, Maintenance, 04/15/23 7:30:00 PM EST, [facility] #[id number], 155, cm, 04/04/23 11:33:00 EST, Height Start Date: 04/15/23 Status: Ordered Quantity: 90.0 Unit: tablet Repeat number: 2 omeprazole 20 mg oral enteric coated capsule 1 capsule, By Mouth, Daily, # 90 capsule, 1 Refills, Maintenance, 04/15/23 7:31:00 PM EST, [facility] #[id number], 155, cm, 04/04/23 11:33:00 EST, Height Start [...] Date: 01/21/19 Status: Ordered Repeat number: 1 Earlene SoloStar 300 units/mL subcutaneous solution = 10 units, Subcutaneous Infusion, Daily, # 6 mL, 1 Refills, Maintenance, 06/16/19 9:12:00 AM EST, [facility], 154.9, cm, 05/19/19 8:07:00 EST, Height, 83.9, kg, 01/20/19 5:07:00 EDT, Dry Weight Start Date: 06/16/19 Stop Date: 08/15/19 Status: Ordered Quantity: 6.0 Unit: mL Repeat number: 2 Earlene SoloStar 300 units/mL subcutaneous solution See Instructions, INJECT 10 UNITS UNDER THE SKIN DAILY, # 6 mL, 2 Refills, Maintenance, 03/05/23 6:09:00 PM EDT, [facility] #[id number], 155, cm, 01/08/23 16:16:00 EDT, Height Start Date: 03/05/23 Status: Ordered Quantity: 6.0 Unit: mL Repeat number: 3 traZODone 50 mg oral tablet See Instructions, TAKE 1 TABLET BY MOUTH AT BEDTIME . DO NOT DRIVE AFTER TAKING THIS, # 90 tablet, Refills 1, Tot. Refills 1, Maintenance, Instructions Replace Required Details, Route to Pharmacy Electronically, [facility], 154.9, cm, 01/26/20 13:53:00 EDT, Height, 83.9, kg, 01/20/19 5:07:00 EDT, Dry Weight Start Date: 08/07/20 Status: Ordered Quantity: 90.0 Unit: tablet Repeat number: 2 Trulicity Pen 0.75 mg/0.5 mL subcutaneous solution See Instructions, INJECT 0.5ML SUBCUTANEOUSLY (UNDER THE SKIN) EVERY FRIDAY DIRECTED, # 2 mL, 1 Refills, 03/05/23 6:10:00 PM EDT, [facility] #[id number], 155, cm, 01/08/23 16:16:00 EDT, Height Start [...] Team Personnel Name: Ginette Fortune MD Position: [facility] Outreach Member Role: PCP Address: [address] [place] [address]- Telecom: Name: Jeanna Blancas Position: [facility] Outreach Member Role: Lifetime Consulting Physician Name: Rocio Peguero RN Position: [facility] SN RN Member Role: Primary Care Nurse Name: Ruben Prather RN Position: [facility] RN Member Role: Primary Care Nurse Name: Lilia Temple Position: [facility] Outreach Member Role: Lifetime Consulting Physician Name: Tony Dsouza MD Position: [facility] Physician (General Medicine) Member Role: Lifetime Consulting Physician Address: [address] [place] [address]- Telecom: Care Team Related Persons Name: MADIE JACKSON Insurance Providers Guarantor name: VIVI SINGHTIZ [facility] Plan Information #: 1 Payer: [facility] CARE ALLIANCE/ONE CARE Member Number: NA Policy Number: NA Group Number: NA
[2024-04-21 10:46] VITALS: BP 128/74; PULSE 85; BMI 30.2
--- NOTE | 2024-04-21 10:46 | MHC.OFFVIS ---
Vital Signs 04/21/24 10:46 Height 5 ft 1 in Weight 160 lb BMI 30.2 BP 128/74 Blood Pressure Location Rt brachial Position Sitting Pulse 85 Pulse Source Pulse Oximeter Intake Visit Reasons: T2DM Intake Note: Patient presents today for a follow-up for Type 2 Diabetes Mellitus: Last Diabetic eye exam was on: 02/03/2024 Last Podiatry exam was on: Does not see a Deep Submergence Vehicle Operator Most recent HbA1c: 6.9%, 04/21/2024 Random Glucose- 103 mg/dL, Today Client Relations Specialist Required: Yes Client Relations Specialist Language: Golf Club Manager Services: Client Relations Specialist Offered & Declined Information Interpreted: non-clinical & clinical Accompanied by: Significant Other Allergies latex [LATEX] Allergy (Mild, Verified 04/06/24 13:01) RASH metformin Adverse Reaction (Verified 04/06/24 13:01) Unknown HPI Comments Details: 63 yo female presenting for diabetes follow up Medical history of depression, osteoporosis, right renal hydronephrosis, hypertension, hyperlipidemia, non toxic multinodular goiter She has DM type 2 diagnosed 20 years ago. Current prescription: Mounjaro 5 weekly. Previously on Lantus 15 units, Trulicity 1.5 mg q.week which she is now off. She does not want to lose any more weight Jame 2 downloaded active 23% time at target 91%, high 9%. POC A1C today is 6.9%. She has had a few readings in the high 60s-overnight She has neuropathy, retinopathy, has CKD with creatinine worsening and sees nephrology 06/26/21 NO macrovascular disease. Eye exam UTD. stable retinopathy. MNG-last TSH 01/2024 in normal range. Her PCP ordered her thyroid u/s which is scheduled. She was advised to return to endocrinology if TSH became suppressed or any significant change in nodules. ROS CONSTITUTIONAL: Denies weight loss, fever and chills. HEENT: Denies changes in vision and hearing. RESPIRATORY: Denies SOB and cough. CV: Denies palpitations and CP GI: Denies abdominal pain, nausea, vomiting and diarrhea. : Denies dysuria and urinary frequency. MSK: Denies new myalgia and joint pain. SKIN: Denies rash and pruritus. NEUROLOGICAL: Denies headache PSYCHIATRIC: Denies recent changes in mood. PHYSICAL EXAM: GENERAL: Alert and oriented x 3. NAD EYES: EOMI. Anicteric. HENT: Moist mucous membranes. No scleral icterus. Heterogenous thyroid LUNGS: Clear to auscultation bilaterally. CARDIOVASCULAR: Regular rate and rhythm. No murmur. No JVD. ABDOMEN: Soft, non-tender +bs EXTREMITIES: No edema. Non-tender. SKIN: No rashes or lesions. Warm. NEUROLOGIC: No focal neurological deficits. CN II-XII grossly intact PSYCHIATRIC: Cooperative. 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 Distal radius fracture, right HTN (hypertension) Chronic kidney disease Diabetes type 2, uncontrolled Surgical History History of surgery S/P fine needle aspiration S/P laparoscopic sleeve gastrectomy History of esophagogastroduodenoscopy (EGD) H/O colonoscopy Hx of biopsy History of partial hysterectomy History of total right knee replacement History of total left knee replacement (~2010) Hx of cholecystectomy History of section History of carpal tunnel release (~2017) Family History Father Hypertension Diabetes History of kidney cancer Mother Diabetes Hypertension Heart disease Brother Hypertension Diabetes Brother No problems noted. Son Hypertension Prediabetes Heart disease Daughter Prediabetes Social History Household Members: Spouse Are you a primary health care assistant to a significant other at home: No Do you presently have visiting nurse or other home services: Yes ([facility]) Alcohol intake: never Patient Tobacco Use Status: Never used Tobacco Physical Exam Vital Signs: Last Vital Signs Pulse 85 04/21/24 10:46 BP 128/74 04/21/24 10:46 BMI result Body Mass Index 30.2 Results AMB Hemoglobin A1c AMB Hemoglobin A1c 6.9 % Last Edit by JAN Encarnacion on 04/21/24 11:08 Results Reviewed Results Reviewed: Laboratory Last Values Glucose (Clinic) 103 mg/dL (60-115) 04/21/24 10:53 Hgb A1c (Clinic) 6.9 % (4.0-6.0) H 04/21/24 11:07 Assessment & Plan Assessment & Plan (1) Diabetes mellitus: Code(s): E11.9 - Type 2 diabetes mellitus without complications Category: Medical Qualifiers: Diabetes mellitus type: type 2 Diabetes mellitus long-term insulin use: without long-term use Diabetes mellitus complication status: with hypoglycemia Diabetes mellitus complication detail: without coma Qualified Code(s): E11.649 - Type 2 diabetes mellitus with hypoglycemia without coma Plan: Decrease mounjaro to 2.5 mg weekly to avoid hypoglycemia Return in 3 months or sooner as needed At least annual eye exams Orders: Orders AMB Hemoglobin A1c Today E11.9 - Type 2 diabetes mellitus without complications Medications: New Mounjaro (tirzepatide) for 4 weeks 2.5 mg (0.5 mL) subcut QWEEK 6 mL 3RF NS E11.9 - Type 2 diabetes mellitus without complications Discontinued tirzepatide (Mounjaro) Discontinued Reason: Doctor's Order 5 mg (0.5 mL) subcut QWEEK 6 mL 3RF Coding Level of Care Code Est Pt Level 4 (73239) Diagnoses Type 2 diabetes mellitus with hypoglycemia without coma, without long-term current use of insulin E11.649 Diabetes mellitus type: type 2 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
[2024-04-21 10:58] LABS: Glucose, Whole Blood 103 mg/dL (60-115)
== END 2024-04-21 11:25 | disposition home or self-care (01) ==
PROVIDERS: PCP Internal Medicine; Visit Provider Internal Medicine
DX: E11.649 Type 2 diabetes mellitus with hypoglycemia without coma (principal); E11.9 Type 2 diabetes mellitus without complications

== ENCOUNTER → 2024-04-21 09:53 | Outpatient (BNVA) | payer OTHER, SELFPAY | PROVIDERS: PCP Internal Medicine; Visit Provider Internal Medicine | DX: E11.649 Type 2 diabetes mellitus with hypoglycemia without coma (principal); Z79.84 Long term (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 oral hypoglycemic drugs | CPT/HCPCS: 82947; 83036; 99212 ==

== ENCOUNTER 2024-05-11 06:26 | Inpatient (IN) | payer OTHER, SELFPAY ==
[2024-05-11] VITALS (7 sets, daily range): BP systolic 148–166; BP diastolic 65–88; PULSE 69–98; RESP 16–20; TEMP 36.8–36.9; O2SAT 96–97; BMI 30.7; BMI 31.1
--- NOTE | ~2024-05-11 | CT_ITS ---
EXAMINATION: CT ABDOMEN PELVIS WITHOUT IV CONTRAST HISTORY: right flank pain COMPARISON: Correlation is made with an abdominal ultrasound dated 04/03/2021 TECHNIQUE: CT scan of the abdomen and pelvis was performed without contrast using standard departmental protocol. Coronal and sagittal reformatted images were generated and reviewed. Oral contrast material was not administered per department protocol. This CT exam was performed with one or more of the following dose reduction techniques: automated exposure control, adjustment of the mA and/or kV according to patient size, use of iterative reconstruction technique. DLP: 437 mGy-cm FINDINGS: LOWER CHEST: The visualized lung bases are clear. There is no pleural effusion. CARDIOVASCULATURE: The heart is normal in size. There is no pericardial effusion. LIVER: The liver is normal in size and contour. The liver has an unremarkable unenhanced appearance. GALLBLADDER / BILE DUCTS: The gallbladder is surgically absent. There is no intra or extrahepatic biliary ductal dilatation. SPLEEN: The spleen is normal in size and has an unremarkable unenhanced appearance. PANCREAS: The pancreas has an unremarkable unenhanced appearance. ADRENAL GLANDS: The right adrenal gland is unremarkable. There is a 1.7 cm left adrenal nodule demonstrates a density in 18.7 HU, which is indeterminate for adenoma. KIDNEYS/RETROPERITONEUM: There are multiple bilateral renal cysts including a 5.7 cm cyst at the upper pole of the right kidney, a 9.8 cm cyst at the lower pole of the right kidney, a 7.3 cm cyst at the upper pole of the left kidney, and a 4.6 cm cyst at the lower pole of the left kidney. No renal calculi are identified. There is severe right hydroureteronephrosis with abrupt tapering of the distal ureter to normal caliber just above the UVJ. No obstructing calculus is seen. There is no left hydroureteronephrosis. LYMPH NODES: There is a 2.0 cm left external iliac lymph node. VASCULATURE: The abdominal aorta is normal in caliber. MESENTERY/PERITONEUM: No free fluid. No masses. There is no free intraperitoneal gas. STOMACH: The patient is status post gastric surgery. SMALL BOWEL: The small bowel is normal in caliber. COLON: There is diverticulosis of the sigmoid colon, without evidence of diverticulitis. APPENDIX: Normal. URINARY BLADDER/PELVIC ORGANS: The urinary bladder is collapsed, limiting evaluation. The patient is status post hysterectomy. BONES / SOFT TISSUES: No suspicious bony or soft tissue abnormalities. CT/CT abdomen pelvis wo IV con IMPRESSION: 1. Severe right hydroureteronephrosis with abrupt tapering to normal caliber just above the UVJ. No obstructing calculus is identified. Neoplasm is not excluded, and cystoscopy with a retrograde study of the ureter is recommended. 2. 1.7 cm indeterminate left adrenal nodule. In the absence of a known primary malignancy, this likely represents an adenoma. If there is a known primary malignancy, adrenal protocol CT is recommended. 3. 2.0 cm left external iliac lymph node. Electronically signed by: Jose Enrique Shannon MD 05/11/2024 09:23 AM LINDA
--- NOTE | ~2024-05-11 | FL_ITS ---
EXAMINATION: FLUOROSCOPY GUIDANCE FOR NEEDLE PLACEMENT CLINICAL INFORMATION: right cysto special COMPARISON: None available. TECHNIQUE: Intraoperative fluoroscopy and images obtained. FINDINGS: Fluoroscopy was provided to the referring physician in the OR. No radiologist was present. Several images were obtained and reveals distended ureter with contrast. No intraluminal filling defects seen. The subsequent and last images reveal a right internal ureteral stent in place. FLUOROSCOPY TIME: 23.0 seconds DOSE AREA PRODUCT: 5.83 uGy-m2 (microgray-meter squared) FL/FL guidance in OR IMPRESSION: Fluoroscopy guidance was provided to the referring physician the OR with no radiologist present during exam.. Electronically signed by: Sergio Burgos MD 05/13/2024 10:36 AM EST
--- OUTSIDE RECORDS SUMMARY | 2024-05-11 06:29 | XMS_ITS | Continuity of Care Document ---
Author Organization [facility] Kat ronel Address [address] [place] [address] ve [address] [place] [address]- Care Team Providers Care Professor Of Finance Name Role Phone Mateo Freeman MD, Ginette Carty Primary Care Physici an Encounter [facility] [id number] Date(s): 03/22/24 - 04/21/24 [facility] [address] [address]- Encounter Type: Triage Allergies, Adverse Reactions, Alerts [...] 2 Refills, Maintenance, 07/05/20 1:44:00 PM EST, [facility], 154.9, cm, 01/26/20 13:53:00 EDT, Height, 83.9, kg, 01/20/19 5:07:00 EDT, Dry Weight Start Date: 07/05/20 Status: Ordered Quantity: 12.0 Unit: tablet Repeat number: 3 amLODIPine 10 mg oral tablet 1 tablet, By Mouth, Daily, # 90 tablet, 1 Refills, Maintenance, 04/15/23 7:30:00 PM EST, [facility] #[id number], 155, cm, 04/04/23 11:33:00 EST, Height Start Date: 04/15/23 Status: Ordered Quantity: 90.0 Unit: tablet Repeat number: 2 atorvastatin 20 mg oral tablet 1 tablet, By Mouth, Daily, # 90 tablet, 1 Refills, Maintenance, 01/28/20 4:12:00 PM EDT, [facility], 154.9, cm, 01/26/20 13:53:00 EDT, Height, 83.9, kg, 01/20/19 5:07:00 EDT, Dry Weight Start Date: 01/28/20 Status: Ordered Quantity: 90.0 Unit: tablet Repeat number: 2 D 1000 IU oral tablet 1 tablet, By Mouth, Daily, # 90 tablet, 1 Refills, Maintenance, 08/07/20 4:16:00 PM EDT, [facility], 154.9, cm, 01/26/20 13:53:00 EDT, Height, 83.9, kg, 01/20/19 5:07:00 EDT, Dry Weight Start Date: 08/07/20 Status: Ordered Quantity: 90.0 Unit: tablet Repeat number: 2 D 1000 IU oral tablet See Instructions, TAKE 1 TABLET BY MOUTH ONCE A DAY, # 90 tablet, 1 Refills, Maintenance, [facility], 154.9, cm, 01/26/20 13:53:00 EDT, Height, 83.9, kg, 01/20/19 5:07:00 EDT, Dry Weight Start Date: 08/07/20 Status: Ordered Quantity: 90.0 Unit: tablet Repeat number: 2 FLUoxetine 20 mg oral capsule 1, capsule, By Mouth, Daily, # 180 capsule, Refills 1, Tot. Refills 0, Maintenance, 08/24/20 7:16:00AM EDT, Route to Pharmacy Electronically, [facility], 154.9, cm, 01/26/20 13:53:00 EDT, Height, 83.9, kg, 01/20/19 5:07:00 EDT, Dry Weight Start Date: 08/24/20 Status: Ordered Quantity: 180.0 Unit: capsule Repeat number: 1 fluticasone 50 mcg/inh nasal spray See Instructions, SHAKE LIQUID AND USE 2 SPRAYS IN EACH NOSTRIL EVERY MORNING, # 48 Gm, 3 Refills, 04/15/23 7:29:00 PM EST, [facility] #[id number], 30, SHAKE LIQUID AND USE 2 SPRAYS [...] Replace Required Details, Route to Pharmacy Electronically, [facility], 154.9, cm, 01/26/20 13:53:00 EDT, Height, 83.9, kg, 01/20/19 5:07:00 EDT, Dry Weight Start Date: 08/23/20 Status: Ordered Quantity: 90.0 Unit: tablet Repeat number: 1 gabapentin 400 mg oral capsule 1, capsule, By Mouth, Daily at bedtime, # 90 capsule, Refills 1, Tot. Refills 1, Maintenance, 05/22/21 2:58:00 PM EST, Route to Pharmacy Electronically, [facility] #[id number], 154.9, cm, 04/04/21 10:55:00 EST, Height Start [...] 1 Refills, Maintenance, 01/12/20 6:02:00 PM EDT, [facility], 28, TAKE 1 TABLET BY MOUTH EVERY EVENING, 154.9, cm, 07/09/19 13:43:00 EST, Height, 83.9, kg, 01/20/19 5:07:00 EDT, Dry Weight Start Date: 01/12/20 Status: Ordered Quantity: 90.0 Unit: tablet Repeat number: 1 Jardiance 10 mg oral tablet 1 tablet, By Mouth, Daily in AM, # 90 tablet, 1 Refills, Maintenance, 12/16/19 11:47:00 AM EDT, [facility], 154.9, cm, 07/09/19 13:43:00 EST, Height, 83.9, kg, 01/20/19 5:07:00 EDT, Dry Weight Start Date: 12/16/19 Status: Ordered Quantity: 90.0 Unit: tablet Repeat number: 1 lisinopril 40 mg oral tablet See Instructions, TAKE 1 TABLET BY MOUTH ONCE A DAY, # 90 tablet, 0 Refills, [facility], 154.9, cm, 09/06/20 14:25:00 EDT, Height, [...] Maintenance, 09/27/22 3:02:00 PM EDT, ER Capsule, [facility] #[id number], Partial fill upon patient request if the prescription is for a schedule II opioid drug., 155, cm, 09/27/22 14:35:00 EDT, Height Start Date: 09/27/22 Stop Date: 03/26/23 Status: Ordered Quantity: 90.0 Unit: capsule Repeat number: 2 Metoprolol Succinate ER 100 mg oral tablet, extended release 1 tablet, By Mouth, Daily, # 90 tablet, 1 Refills, Maintenance, 04/15/23 7:30:00 PM EST, [facility] #[id number], 155, cm, 04/04/23 11:33:00 EST, Height Start Date: 04/15/23 Status: Ordered Quantity: 90.0 Unit: tablet Repeat number: 2 omeprazole 20 mg oral enteric coated capsule 1 capsule, By Mouth, Daily, # 90 capsule, 1 Refills, Maintenance, 04/15/23 7:31:00 PM EST, [facility] #[id number], 155, cm, 04/04/23 11:33:00 EST, Height Start [...] Date: 01/21/19 Status: Ordered Repeat number: 1 [place] SoloStar 300 units/mL subcutaneous solution = 10 units, Subcutaneous Infusion, Daily, # 6 mL, 1 Refills, Maintenance, 06/16/19 9:12:00 AM EST, [facility], 154.9, cm, 05/19/19 8:07:00 EST, Height, 83.9, kg, 01/20/19 5:07:00 EDT, Dry Weight Start Date: 06/16/19 Stop Date: 08/15/19 Status: Ordered Quantity: 6.0 Unit: mL Repeat number: 2 [place] SoloStar 300 units/mL subcutaneous solution See Instructions, INJECT 10 UNITS UNDER THE SKIN DAILY, # 6 mL, 2 Refills, Maintenance, 03/05/23 6:09:00 PM EDT, [facility] #[id number], 155, cm, 01/08/23 16:16:00 EDT, Height Start Date: 03/05/23 Status: Ordered Quantity: 6.0 Unit: mL Repeat number: 3 traZODone 50 mg oral tablet See Instructions, TAKE 1 TABLET BY MOUTH AT BEDTIME . DO NOT DRIVE AFTER TAKING THIS, # 90 tablet, Refills 1, Tot. Refills 1, Maintenance, Instructions Replace Required Details, Route to Pharmacy Electronically, [facility], 154.9, cm, 01/26/20 13:53:00 EDT, Height, 83.9, kg, 01/20/19 5:07:00 EDT, Dry Weight Start Date: 08/07/20 Status: Ordered Quantity: 90.0 Unit: tablet Repeat number: 2 Trulicity Pen 0.75 mg/0.5 mL subcutaneous solution See Instructions, INJECT 0.5ML SUBCUTANEOUSLY (UNDER THE SKIN) EVERY FRIDAY DIRECTED, # 2 mL, 1 Refills, 03/05/23 6:10:00 PM EDT, [facility] #[id number], 155, cm, 01/08/23 16:16:00 EDT, Height Start [...] Team Personnel Name: Ginette Fortune MD Position: [facility] Outreach Member Role: PCP Address: [address] [place] [address]- Telecom: Name: Jeanna Blancas Position: [facility] Outreach Member Role: Lifetime Consulting Physician Name: Rocio Peguero RN Position: [facility] SN RN Member Role: Primary Care Nurse Name: Ruben Prather RN Position: [facility] RN Member Role: Primary Care Nurse Name: Lilia Temple Position: [facility] Outreach Member Role: Lifetime Consulting Physician Name: Tony Dsouza MD Position: [facility] Physician (General Medicine) Member Role: Lifetime Consulting Physician Address: [address] [place] [address]- Telecom: Care Team Related Persons Name: MADIE JACKSON Insurance Providers Guarantor name: VIVI JACKSON CLEMENTE Health Plan Information #: 1 Payer: [facility] CARE ALLIANCE/ONE CARE Member Number: NA Policy Number: NA Group Number: NA
--- OUTSIDE RECORDS SUMMARY | 2024-05-11 06:29 | XMS_ITS ---
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
--- OUTSIDE RECORDS SUMMARY | 2024-05-11 06:30 | XMS_ITS ---
Author Organization [facility] Address [address] [place] [address] Care Team Providers Care Bead Trimmer Name Role Phone BHUMIKA BUSTOS Unavailable [phone] MEDICATIONS Medication SIG (Take, Route, Fr equency, Duration) Notes Start Date End Date Status Mounjaro 5 MG/0.5ML 5mg Subcutaneous wee kly for 30 days Active Encounters Encounter Location Date Provider Diagnosis [place] [id number] [address] 11/28/2023 BHUMIKA VENTURADEVINeymar Other obesity due to excess calories E66.09 ; BMI 30.0-30.9,adult Z68.30 ; Type 2 diabetes mellitus without complications E11.9 ; watermaster (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 insulin Z79.4 ; History [...] minimum of 6 months The most recent [place] [employer]ocrin[employer] and [place] [employer] guidelines recommend patients who [...] track activity level. Consider using apps like [employer], myfitiTManpal, lose it, stick as needed for self-monitoring and weight management. Consider group exercises. Consider hiring a personal injury litigation paralegal. Regular exercise is shook to sustainable health [...] counseling and psychiatry and Dr Salamanca at [facility]. We would like to cover regular topics [...] software and direct typing Please excuse inadvertent assisted living nursing director or typing errors, or uncorrected word substitutions Although every attempt has been made by the provider to proofread this document, occasional misspellings and typographical errors may still be present Due to the previous pandemic, and the use of personal protective equipment (PPE) This may decrease voice recognition accuracy Inadvertent assisted living nursing director errors may occur 11/28/2023 BMI 30.0-30.9,adult [...] minimum of 6 months The most recent [place] [employer]ocrinologists and [place] [employer] guidelines recommend patients who [...] track activity level. Consider using apps like [employer], myfitnesspal, lose it, stick as needed for self-monitoring and weight management. Consider group exercises. Consider hiring a personal injury litigation paralegal. Regular exercise is shook to sustainable health [...] counseling and psychiatry and Dr Salamanca at [facility]. We would like to cover regular topics [...] software and direct typing Please excuse inadvertent assisted living nursing director or typing errors, or uncorrected word substitutions Although every attempt has been made by the provider to proofread this document, occasional misspellings and typographical errors may still be present Due to the previous pandemic, and the use of personal protective equipment (PPE) This may decrease voice recognition accuracy Inadvertent assisted living nursing director errors may occur 11/28/2023 Type 2 [...] minimum of 6 months The most recent [place] [employer]ocrinologists and [place] [employer] guidelines recommend patients who [...] track activity level. Consider using apps like [employer], myfitnesspal, lose it, stick as needed for self-monitoring and weight management. Consider group exercises. Consider hiring a personal injury litigation paralegal. Regular exercise is shook to sustainable health [...] counseling and psychiatry and Dr Salamanca at [facility]. We would like to cover regular topics [...] software and direct typing Please excuse inadvertent assisted living nursing director or typing errors, or uncorrected word substitutions Although every attempt has been made by the provider to proofread this document, occasional misspellings and typographical errors may still be present Due to the previous pandemic, and the use of personal protective equipment (PPE) This may decrease voice recognition accuracy Inadvertent assisted living nursing director errors may occur 11/28/2023 assisted (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 insulin (ICD-10 - Z79.4) [...] minimum of 6 months The most recent [place] [employer] endocrinologists and [place] [employer] guidelines recommend patients who [...] track activity level. Consider using apps like [employer], [employer], lose it, stick as needed for self-monitoring and weight management. Consider group exercises. Consider hiring a personal injury litigation paralegal. Regular exercise is shook to sustainable health [...] counseling and psychiatry and Dr Salamanca at [facility]. We would like to cover regular topics [...] software and direct typing Please excuse inadvertent assisted living nursing director or typing errors, or uncorrected word substitutions Although every attempt has been made by the provider to proofread this document, occasional misspellings and typographical errors may still be present Due to the previous pandemic, and the use of personal protective equipment (PPE) This may decrease voice recognition accuracy Inadvertent assisted living nursing director errors may occur 11/28/2023 History of [...] minimum of 6 months The most recent [place] [employer] endocrinologists and [place] [employer] guidelines recommend patients who [...] track activity level. Consider using apps like [employer], [employer], lose it, stick as needed for self-monitoring and weight management. Consider group exercises. Consider hiring a personal injury litigation paralegal. Regular exercise is shook to sustainable health [...] counseling and psychiatry and Dr Salamanca at [facility]. We would like to cover regular topics [...] software and direct typing Please excuse inadvertent assisted living nursing director or typing errors, or uncorrected word substitutions Although every attempt has been made by the provider to proofread this document, occasional misspellings and typographical errors may still be present Due to the previous pandemic, and the use of personal protective equipment (PPE) This may decrease voice recognition accuracy Inadvertent assisted living nursing director errors may occur 11/28/2023 Hypothyroidism, unspecified [...] minimum of 6 months The most recent [place] [employer] endocrinologists and [place] [employer] guidelines recommend patients who [...] track activity level. Consider using apps like [employer], myfitnesspal, lose it, stick as needed for self-monitoring and weight management. Consider group exercises. Consider hiring a personal injury litigation paralegal. Regular exercise is shook to sustainable health [...] counseling and psychiatry and Dr Salamanca at [facility]. We would like to cover regular topics [...] software and direct typing Please excuse inadvertent assisted living nursing director or typing errors, or uncorrected word substitutions Although every attempt has been made by the provider to proofread this document, occasional misspellings and typographical errors may still be present Due to the previous pandemic, and the use of personal protective equipment (PPE) This may decrease voice recognition accuracy Inadvertent assisted living nursing director errors may occur PLAN OF TREATMENT Medication Medication Name Sig Start Date Stop Date Notes Mounjaro 5 MG/0.5ML 5mg Subcutaneous weekly for 30 days Progress Notes * Mayra BERMAN: [birth year] (63 yo F)Acc No.[id number]:11/28/2023 Patient:??Rosie BERMAN Provider:??BHUMIKA BUSTOS NP :1960?Age:63 Y?Sex:Fe male Date:11/28/2023 Address:[address] [place] [address] [id number] Subjective: * Chief Complaints: * ? 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 Had both shots ?RSV: Rx given for [...] Z68.30??3.??Type 2 diabetes mellitus without complications - E11.9??4.??watermaster (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 insulin - Z79.4??5.??History of [...] minimum of 6 months The most recent [place] [employer] endocrinologists and [place] [employer] guidelines recommend patients who [...] track activity level. Consider using apps like [employer], Dragon[employer], lose it, stick as needed for self-monitoring and weight management. Consider group exercises. Consider hiring a personal injury litigation paralegal. Regular exercise is shook to sustainable health [...] counseling and psychiatry and Dr Salamanca at [facility]. We would like to cover regular topics [...] software and direct typing Please excuse inadvertent assisted living nursing director or typing errors, or uncorrected word substitutions Although every attempt has been made by the provider to proofread this document, occasional misspellings and typographical errors may still be present Due to the previous pandemic, and the use of personal protective equipment (PPE) This may decrease voice recognition accuracy Inadvertent assisted living nursing director errors may occur. Plan: * Treatment: * Procedure Codes:??77769 NO S HOW OFFICE VISIT * Images: Billing Information: * Visit Code:?? * Procedure Codes:?? 72144 NO SHOW OFFICE VISIT. 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 Had both shots RSV: Rx given for pharmacy TDap: up-to-date Examination Category Sub-Category Detail Notes Category Not es General Examination GENERAL APPEARANCE: in no ac bois forte distress, well developed, well nourished HEAD: normocephalic, [...]
--- OUTSIDE RECORDS SUMMARY | 2024-05-11 06:30 | XMS_ITS ---
Author Organization [facility] Address [address] [place] [address] Care Team Providers Care Land Developer Name Role Phone BHUMIKA BUSTOS Unavailable [phone] Encounters Encounter Location Date Provider Diagnosis [facility] [address] [place] [address] 12/04/2023 BHUMIKA BUSTOS PLAN OF TREATMENT No Information Progress Notes * Coleen BERMANsDOB: [birth year] (63 yo F)Acc No.[id number]:12/04/2023 Patient:??Rosie BERMAN :1960?Age:63 Y?Sex:Fe male Address:[address] [place] [id number] * true * Date:??
--- OUTSIDE RECORDS SUMMARY | 2024-05-11 06:30 | XMS_ITS | Patient Health Record ---
Author Organization [facility] Address [address] [place] [address] Care Team Providers Care Certified Nursing Assistant Name Role Phone BHUMIKA BUSTOS Unavailable [phone] ALLERGIES Allergen (clinical drug ingredient) Drug/Non Drug [...] Note Original Orderi ng Provider: BHUMIKA BUSTOS [facility] TOTAL T4 8.4 4.5-10.9 ug/dl REASON FOR [...] diabetes mellitus without complications (E11.9) Active confirmed 890961390 Problem Other obesity due to excess calories (E66.09) Active confirmed 638174307 Problem half-way (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 insulin (Z79.4) Active confirmed 664206961 Problem Hypothyroidism, unspecified type (E03.9) Active confirmed 86352654 Problem Body mass index [BMI] 32.0-32.9, adult (Z68.32) Active confirmed 486589309 Problem BMI 31.0-31.9,adult (Z68.31) Active confirmed 424832946 Problem BMI 30.0-30.9,adult (Z68.30) Active confirmed 646970652 VITAL SIGNS Heart Rate 76 /min 10/03/2023 Oximetry 95 % 10/03/2023 Blood pressure diastolic 84 mm Hg 10/03/2023 Height 61 in 10/03/2023 Blood pressure systolic 120 mm Hg 10/03/2023 Weight 161 lbs 10/03/2023 BMI 30.42 kg/m2 10/03/2023 Encounters Encounter Location Date Provider Diagnosis [place] [id number] 08/13/2023 [place] [address] 11/28/2023 BHUMIKA BUSTOS Other obesity due to excess calories E66.09 ; BMI 30.0-30.9,adult Z68.30 ; Type 2 diabetes mellitus without complications E11.9 ; termination clerk (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 insulin Z79.4 ; History of gastric surgery Z98.890 and Hypothyroidism, unspecified type E03.9 [place] [address] 07/04/2023 BHUMIKA VENTURACRYSTAL Other obesity due to excess calories E66.09 ; Type 2 diabetes mellitus without complications E11.9 ; half-way (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 insulin Z79.4 ; History of gastric surgery Z98.890 and BMI 31.0-31.9,adult Z68.31 [place] [address] [address] 10/03/2023 BHUMIKA AKASH Other obesity due to excess calories E66.09 ; BMI 30.0-30.9,adult Z68.30 ; Type 2 diabetes mellitus without complications E11.9 ; half-way (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 insulin Z79.4 ; History of gastric surgery Z98.890 and Hypothyroidism, unspecified type E03.[address] [facility] [address] [place] [address] 08/29/2023 BHUMIKA BUSTOS [facility] [address] [facility] [place] [address] 12/04/2023 BHUMIKA BUSTOS [facility] [address] [place] [address] 02/25/2024 BHUMIKA BUSTOS ASSESSMENTS Encounter Date Diagnosis Assessment Notes Treatment Notes Treatment Clinical Notes Section Notes 07/04/2023 Type 2 diabetes mellitus without complications [...] track activity level. Consider using apps like Appvance, myfit[employer]quo [employer]pal, lose it, stick as needed for self-monitoring and weight management. Consider group exercises. Consider hiring a personal development educator. Regular exercise is shook to sustainable health [...] counseling and psychiatry and Dr Salamanca at [facility]. We would like to cover regular topics [...] software and direct typing Please excuse inadvertent booking agent or typing errors, or uncorrected word substitutions Although every attempt has been made by the provider to proofread this document, occasional misspellings and typographical errors may still be present Due to the previous pandemic, and the use of personal protective equipment (PPE) This may decrease voice recognition accuracy Inadvertent booking agent errors may occur 07/04/2023 Other obesity due [...] track activity level. Consider using apps like Appvance, Lax[employer]compal, lose it, stick as needed for self-monitoring and weight management. Consider group exercises. Consider hiring a personal development educator. Regular exercise is shook to sustainable health [...] counseling and psychiatry and Dr Salamanca at [facility]. We would like to cover regular topics [...] software and direct typing Please excuse inadvertent booking agent or typing errors, or uncorrected word substitutions Although every attempt has been made by the provider to proofread this document, occasional misspellings and typographical errors may still be present Due to the previous pandemic, and the use of personal protective equipment (PPE) This may decrease voice recognition accuracy Inadvertent booking agent errors may occur 10/03/2023 Other obesity due [...] track activity level. Consider using apps like Appvance, Lax[employer]compal, lose it, stick as needed for self-monitoring and weight management. Consider group exercises. Consider hiring a personal development educator. Regular exercise is shook to sustainable health [...] counseling and psychiatry and Dr Salamanca at [facility]. We would like to cover regular topics [...] software and direct typing Please excuse inadvertent booking agent or typing errors, or uncorrected word substitutions Although every attempt has been made by the provider to proofread this document, occasional misspellings and typographical errors may still be present Due to the previous pandemic, and the use of personal protective equipment (PPE) This may decrease voice recognition accuracy Inadvertent booking agent errors may occur 10/03/2023 BMI 30.0-30.9,adult (ICD-10 [...] track activity level. Consider using apps like [employer]vance, myfitnesspal, lose it, stick as needed for self-monitoring and weight management. Consider group exercises. Consider hiring a personal development educator. Regular exercise is shook to sustainable health [...] counseling and psychiatry and Dr Salamanca at [facility]. We would like to cover regular topics [...] software and direct typing Please excuse inadvertent booking agent or typing errors, or uncorrected word substitutions Although every attempt has been made by the provider to proofread this document, occasional misspellings and typographical errors may still be present Due to the previous pandemic, and the use of personal protective equipment (PPE) This may decrease voice recognition accuracy Inadvertent booking agent errors may occur 11/28/2023 Other obesity due [...] track activity level. Consider using apps like Appvance, Lax[employer]compal, lose it, stick as needed for self-monitoring and weight management. Consider group exercises. Consider hiring a personal development educator. Regular exercise is shook to sustainable health [...] counseling and psychiatry and Dr Salamanca at [facility]. We would like to cover regular topics [...] software and direct typing Please excuse inadvertent booking agent or typing errors, or uncorrected word substitutions Although every attempt has been made by the provider to proofread this document, occasional misspellings and typographical errors may still be present Due to the previous pandemic, and the use of personal protective equipment (PPE) This may decrease voice recognition accuracy Inadvertent booking agent errors may occur 11/28/2023 BMI 30.0-30.9,adult (ICD-10 [...] track activity level. Consider using apps like Appvance, Lax[employer]compal, lose it, stick as needed for self-monitoring and weight management. Consider group exercises. Consider hiring a personal development educator. Regular exercise is shook to sustainable health [...] counseling and psychiatry and Dr Salamanca at [facility]. We would like to cover regular topics [...] software and direct typing Please excuse inadvertent booking agent or typing errors, or uncorrected word substitutions Although every attempt has been made by the provider to proofread this document, occasional misspellings and typographical errors may still be present Due to the previous pandemic, and the use of personal protective equipment (PPE) This may decrease voice recognition accuracy Inadvertent booking agent errors may occur 10/03/2023 Type 2 diabetes [...] track activity level. Consider using apps like Appvance, Lax[employer]compal, lose it, stick as needed for self-monitoring and weight management. Consider group exercises. Consider hiring a personal development educator. Regular exercise is shook to sustainable health [...] counseling and psychiatry and Dr Salamanca at [facility]. We would like to cover regular topics [...] software and direct typing Please excuse inadvertent booking agent or typing errors, or uncorrected word substitutions Although every attempt has been made by the provider to proofread this document, occasional misspellings and typographical errors may still be present Due to the previous pandemic, and the use of personal protective equipment (PPE) This may decrease voice recognition accuracy Inadvertent booking agent errors may occur 07/04/2023 half-way (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 insulin (ICD-10 - Z79.4) [...] track activity level. Consider using apps like Appvance, [employer]pal, lose it, stick as needed for self-monitoring and weight management. Consider group exercises. Consider hiring a personal development educator. Regular exercise is shook to sustainable health [...] counseling and psychiatry and Dr Salamanca at [facility]. We would like to cover regular topics [...] software and direct typing Please excuse inadvertent booking agent or typing errors, or uncorrected word substitutions Although every attempt has been made by the provider to proofread this document, occasional misspellings and typographical errors may still be present Due to the previous pandemic, and the use of personal protective equipment (PPE) This may decrease voice recognition accuracy Inadvertent booking agent errors may occur 07/04/2023 History of gastric [...] track activity level. Consider using apps like Appvance, myfitnesspal, lose it, stick as needed for self-monitoring and weight management. Consider group exercises. Consider hiring a personal development educator. Regular exercise is shook to sustainable health [...] counseling and psychiatry and Dr Salamanca at [facility]. We would like to cover regular topics [...] software and direct typing Please excuse inadvertent booking agent or typing errors, or uncorrected word substitutions Although every attempt has been made by the provider to proofread this document, occasional misspellings and typographical errors may still be present Due to the previous pandemic, and the use of personal protective equipment (PPE) This may decrease voice recognition accuracy Inadvertent booking agent errors may occur 10/03/2023 half-way (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 insulin (ICD-10 - Z79.4) [...] track activity level. Consider using apps like Appvance, Lax[employer]compal, lose it, stick as needed for self-monitoring and weight management. Consider group exercises. Consider hiring a personal development educator. Regular exercise is shook to sustainable health [...] counseling and psychiatry and Dr Salamanca at [facility]. We would like to cover regular topics [...] software and direct typing Please excuse inadvertent booking agent or typing errors, or uncorrected word substitutions Although every attempt has been made by the provider to proofread this document, occasional misspellings and typographical errors may still be present Due to the previous pandemic, and the use of personal protective equipment (PPE) This may decrease voice recognition accuracy Inadvertent booking agent errors may occur 11/28/2023 Type 2 diabetes [...] track activity level. Consider using apps like Appvance, [employer], lose it, stick as needed for self-monitoring and weight management. Consider group exercises. Consider hiring a personal development educator. Regular exercise is shook to sustainable health [...] counseling and psychiatry and Dr Salamanca at [facility]. We would like to cover regular topics [...] software and direct typing Please excuse inadvertent booking agent or typing errors, or uncorrected word substitutions Although every attempt has been made by the provider to proofread this document, occasional misspellings and typographical errors may still be present Due to the previous pandemic, and the use of personal protective equipment (PPE) This may decrease voice recognition accuracy Inadvertent booking agent errors may occur 10/03/2023 History of gastric [...] track activity level. Consider using apps like Appvance, Lax[employer]compal, lose it, stick as needed for self-monitoring and weight management. Consider group exercises. Consider hiring a personal development educator. Regular exercise is shook to sustainable health [...] counseling and psychiatry and Dr Salamanca at [facility]. We would like to cover regular topics [...] software and direct typing Please excuse inadvertent booking agent or typing errors, or uncorrected word substitutions Although every attempt has been made by the provider to proofread this document, occasional misspellings and typographical errors may still be present Due to the previous pandemic, and the use of personal protective equipment (PPE) This may decrease voice recognition accuracy Inadvertent booking agent errors may occur 07/04/2023 BMI 31.0-31.9,adult (ICD-10 [...] track activity level. Consider using apps like Appvance, [employer]pal, lose it, stick as needed for self-monitoring and weight management. Consider group exercises. Consider hiring a personal development educator. Regular exercise is shook to sustainable health [...] counseling and psychiatry and Dr Salamanca at [facility]. We would like to cover regular topics [...] software and direct typing Please excuse inadvertent booking agent or typing errors, or uncorrected word substitutions Although every attempt has been made by the provider to proofread this document, occasional misspellings and typographical errors may still be present Due to the previous pandemic, and the use of personal protective equipment (PPE) This may decrease voice recognition accuracy Inadvertent booking agent errors may occur 11/28/2023 termination clerk (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 insulin (ICD-10 - Z79.4) [...] track activity level. Consider using apps like [employer], myfitnesspal, lose it, stick as needed for self-monitoring and weight management. Consider group exercises. Consider hiring a personal development educator. Regular exercise is shook to sustainable health [...] counseling and psychiatry and Dr Salamanca at [facility]. We would like to cover regular topics [...] software and direct typing Please excuse inadvertent booking agent or typing errors, or uncorrected word substitutions Although every attempt has been made by the provider to proofread this document, occasional misspellings and typographical errors may still be present Due to the previous pandemic, and the use of personal protective equipment (PPE) This may decrease voice recognition accuracy Inadvertent booking agent errors may occur 11/28/2023 History of gastric [...] track activity level. Consider using apps like Appvance, Lax[employer]compal, lose it, stick as needed for self-monitoring and weight management. Consider group exercises. Consider hiring a personal development educator. Regular exercise is shook to sustainable health [...] counseling and psychiatry and Dr Salamanca at [facility]. We would like to cover regular topics [...] software and direct typing Please excuse inadvertent booking agent or typing errors, or uncorrected word substitutions Although every attempt has been made by the provider to proofread this document, occasional misspellings and typographical errors may still be present Due to the previous pandemic, and the use of personal protective equipment (PPE) This may decrease voice recognition accuracy Inadvertent booking agent errors may occur 11/28/2023 Hypothyroidism, unspecified type [...] track activity level. Consider using apps like Appvance, Lax[employer]compal, lose it, stick as needed for self-monitoring and weight management. Consider group exercises. Consider hiring a personal development educator. Regular exercise is shook to sustainable health [...] counseling and psychiatry and Dr Salamanca at [facility]. We would like to cover regular topics [...] software and direct typing Please excuse inadvertent booking agent or typing errors, or uncorrected word substitutions Although every attempt has been made by the provider to proofread this document, occasional misspellings and typographical errors may still be present Due to the previous pandemic, and the use of personal protective equipment (PPE) This may decrease voice recognition accuracy Inadvertent booking agent errors may occur 10/03/2023 Hypothyroidism, unspecified type [...] track activity level. Consider using apps like Appvance, Lax.compal, lose it, stick as needed for self-monitoring and weight management. Consider group exercises. Consider hiring a personal development educator. Regular exercise is shook to sustainable health [...] about local counseling and psychiatry and Dr Salamanac at [facility]. We would like to cover regular topics [...] software and direct typing Please excuse inadvertent booking agent or typing errors, or uncorrected word substitutions Although every attempt has been made by the provider to proofread this document, occasional misspellings and typographical errors may still be present Due to the previous pandemic, and the use of personal protective equipment (PPE) This may decrease voice recognition accuracy Inadvertent booking agent errors may occur PLAN OF TREATMENT Pending Test Test Name Order Date HEMOGLOBIN A1C 10/03/2023 T4, TOTAL 10/03/2023 TSH 10/03/2023 Insurance Providers Payer Name Payer Address Payer Phone Subscriber Number Group Number Insured Name Patient Relationship to Insured Coverage Start Date Coverage End Date [employer] or Options [address] [place] [id number] Rosie Grimm Self - patient is the insured 3 MEDICAL (GENERAL) HISTORY Medical History History ICD Code Hypothyroidism type II diabetes hydronephrosis Surgical History Surgery Date(Month/Year) hysterectomy left knee replacement right knee replacement hydroneprosis
--- NOTE | 2024-05-11 06:45 | MHC.EDTECH ---
Patient brought into triage area,labs,and urine obtained and sent to lab.
[2024-05-11 06:49] LABS: MANUAL DIFF FLAG NO
[2024-05-11 06:50] LABS: Basophils Percent Auto 0.3 % (0-2); Eosinophils Absolute Auto 0.2 X10*3/uL (0.0-0.4); Eosinophils Percent Auto 1.9 % (0-4); Hematocrit 42.6 % (37.0-47.0); Imm Gran Abs Auto 0.05 X10*3/uL (0.00-0.03); Imm Gran Pct Auto 0.4 % (0.0-0.4); Lymphocytes Absolute Auto 2.2 X10*3/uL (1.2-4.9); Lymphocytes Percent Auto 18.3 % (20-40); Mean Corpuscular HGB Conc 32.9 g/dl (31.0-35.0); Mean Corpuscular Hemoglobin 27.7 pg (27.0-33.0); Mean Corpuscular Volume 84.4 fL (80.0-98.0); Mean Platelet Volume 11.5 fL (9.4-12.3); Monocytes Absolute Auto 1.3 X10*3/uL (0.1-1.2); Monocytes Percent Auto 10.5 % (2-11); Neutrophils Absolute Auto 8.3 x10*3/uL (2.0-8.3); Neutrophils Percent Auto 68.6 % (45-73); Platelet Count 263 X10*3/uL (160-400); Red Blood Count 5.05 X10*6/uL (4.20-5.50); Red Cell Distribution Width 12.9 % (11.0-16.0)
[2024-05-11 06:51] LABS: Appearance Urine Turbid; Color Urine Dark Yellow; Glucose Urine UA >=1000 mg/dL (Negative); Leukocyte Esterase Urine Large (3+) (Negative); Nitrite Urine Positive (Negative); PH 5.5 (5.0-9.0); Specific Gravity - Urine 1.025 (1.005-1.025); UMIC TRIGGER UACC YES; Urine Blood Moderate (2+) (Negative); Urine Ketones Negative (Negative); Urine Protein 100 (2+) mg/dL (Neg-Trace)
[2024-05-11 07:05] LABS: Alanine Aminotransferase 12 U/L (0-31); Albumin Level 4.1 g/dL (3.5-5.0); Alkaline Phosphatase 84 U/L (39-117); Anion Gap 13 (12-20); Aspartate Amino Transferase 13 U/L (5-31); Bilirubin Direct 0.2 mg/dL (0.0-0.5); Bilirubin Total 0.6 mg/dL (0.0-1.0); Blood Urea Nitrogen 22 mg/dL (9-16); Calcium 9.5 mg/dL (8.4-10.2); Carbon Dioxide 23 mmol/L (22-29); Chloride 112 mmol/L (96-108); Creatinine Clr Calc Pharmacy 35.4; Estimated Glomerular Filt Rate 35; Glucose Random 164 mg/dL (60-115); Lipase 35 U/L (8-78); Potassium 3.9 mmol/L (3.3-5.1); Sodium 144 mmol/L (135-145); Total Protein 7.7 g/dL (6.5-8.0)
[2024-05-11 07:06] LABS: Bacteria Urine 2+ (None Seen); Hyaline Casts Urine 0-2 /LPF (0-2); RBC Urine >20 /HPF (0-2); Squamous Epithelial Cell Urine >20 /HPF (0-2); UACC Culture Trigger YES; WBC Urine >50 /HPF (0-5)
--- NOTE | 2024-05-11 07:34 | ED_ITS ---
HPI - Female Genitourinary General Chief complaint: Urogenital-Female Stated complaint: right kidney pain Time Seen by Provider: 05/11/24 07:32 Source: patient Mode of arrival: ambulatory Limitations: no limitations History of Present Illness ED Provider: Nancy Lawrence PA-C HPI Narrative: Patient is a 63 year old assigned female at with a history of polycystic kidneys, DM, and nephrosis presenting to the emergency department today with right sided flank pain. Patient states that over the last 2 days she has had worsening right sided flank pain, fevers, increased urinary frequency, and burning with urination. Patient denies any dizziness, lightheadedness, abdominal pain, vomiting, chills, blurry vision, double vision, loss of vision, chest pain, difficulty breathing, shortness of breath, back pain, night sweats, blood in her urine or stool, syncope or a near syncopal episode, recent trauma or falls, bowel incontinence, bladder incontinence, or any other complaints at this time. Related Data Home Medications ?Medication ?Instructions ?Recorded ?Confirmed amlodipine 10 mg tablet 10 mg PO DAILY 02/05/20 03/22/24 fluticasone propionate 50 1 spray intranasal DAILY PRN nasal 07/19/20 03/22/24 mcg/actuation nasal congestion spray,suspension metoprolol tartrate 25 mg tablet 25 mg PO BID 05/08/22 03/22/24 blood sugar diagnostic 08/29/22 03/22/24 blood-glucose meter (OneTouch #1 ea 08/29/22 03/22/24 Ultra2 Meter) fluoxetine 40 mg capsule 40 mg PO DAILY 08/29/22 03/22/24 lorazepam 0.5 mg tablet 0 mg PO 08/29/22 03/22/24 trazodone 50 mg tablet 50 - 150 mg PO BEDTIME PRN 08/29/22 03/22/24 lisinopril 40 mg tablet 40 mg PO DAILY 01/28/24 03/22/24 meloxicam 15 mg tablet 15 mg PO DAILY 01/28/24 03/22/24 metoprolol succinate 50 mg 50 mg PO DAILY 01/28/24 03/22/24 tablet,extended release 24 hr Previous Rx's ?Medication ?Instructions ?Recorded lancets #100 ea 08/20/22 clotrimazole 1 % topical cream 1 appl topical BID #45 grams 08/23/22 pen needle, diabetic 32 gauge x #30 ea 08/30/22/16 (Comfort EZ Pen Chetopa) blood sugar diagnostic (OneTouch #100 ea 09/16/22 Ultra Test strips) inulin 2 gram chewable tablet 2 g PO DAILY #30 tabs 12/03/22 (Fiber Gummies) sennosides 8.6 mg tablet (senna) 8.6 mg PO DAILY #90 tabs 12/03/22 diphenhydramine HCl 25 mg capsule 25 mg PO TID PRN allergic reaction 12/24/22 (Benadryl) #14 caps hydrocortisone 1 % topical cream 1 appl topical BID PRN rash #28.35 12/24/22 (Anti-Itch (hydrocortisone)) grams flash glucose sensor (FreeStyle #2 ea 02/20/23 Jame 2 Sensor kit) docusate sodium 100 mg capsule 100 mg PO BID #90 caps 01/19/24 FreeStyle Jame 2 Narvon (flash #1 ea 01/28/24 glucose scanning reader) gabapentin 400 mg capsule 400 mg PO DAILY #90 caps 03/04/24 Mounjaro 2.5 mg/0.5 mL 2.5 mg (0.5 mL) subcut QWEEK #6 mL 04/21/24 subcutaneous pen injector (tirzepatide) Allergies Allergy/AdvReac Type Severity Reaction Status Date / Time latex [LATEX] Allergy Mild RASH Verified 05/11/24 06:34 metformin AdvReac Unknown Verified 05/11/24 06:34 Review of Systems 2 Constitutional: Constitutional: Reports no additional constitutional complaints, Denies chills, Reports fever(s) and Denies night sweats Eyes: Eyes: Reports no additional eye complaints, Denies blurry vision, Denies change in vision, Denies diplopia, Denies eye discharge, Denies loss of vision and Denies eye pain ENT: Denies dizziness Cardiovascular: Cardiovascular: Reports no additional cardiovascular complaints, Denies chest pain, Denies lightheadedness, Denies Loss of Consciousness and Denies dyspnea Respiratory: Respiratory: Reports no additional respiratory complaints and Denies dyspnea Gastrointestinal: Gastrointestinal: Reports no additional gastrointestinal complaints, Denies abdominal pain, Denies melena, Denies hematochezia, Denies change in bowel habits and Denies change in stool character Genitourinary: Genitourinary: Denies hematuria, Denies urinary frequency, Reports dysuria, Reports flank pain, Denies urinary incontinence, Reports urinary hesitancy and Reports urinary urgency Musculoskeletal: Musculoskeletal: Reports no additional musculoskeletal complaints, Denies numbness and Denies tingling Neurologic: Denies dizziness, Denies loss of vision, Denies numbness and Denies tingling Psychiatric: Psychiatric: Reports no additional psychiatric complaints Endocrine: Endocrine: Reports no additional endocrine complaints Hematologic/Lymphatic: Hematologic/Lymphatic: Reports no additional hematologic/lymphatic complaints Allergic/Immunologic: Allergic/Immunologic: Reports no additional allergic/immunologic complaints [facility] Past Medical History Attestation statement: The following information was validated with the patient. Source: old records reviewed and nursing notes reviewed Medical History Anxiety Depression GERD (gastroesophageal reflux disease) COVID-19 vaccine series completed Tachycardia Toxic multinodul goiter Chronic renal insufficiency Nephrolithiasis Cyst, kidney, acquired Diabetic neuropathy BMI 34.0-34.9,adult BMI 35.0-35.9,adult BMI 36.0-36.9,adult Pre-op evaluation B12 deficiency Obesity (BMI 30-39.9) Non-toxic multinodular goiter Dyslipidemia Diabetic 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 with type 2 diabetes mellitus [facility] (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 insulin Distal radius fracture, right HTN (hypertension) Chronic kidney disease Diabetes type 2, uncontrolled Surgical History History of surgery S/P fine needle aspiration S/P laparoscopic sleeve gastrectomy History of esophagogastroduodenoscopy (EGD) H/O colonoscopy Hx of biopsy History of partial hysterectomy History of total right knee replacement History of total left knee replacement (~2010) Hx of cholecystectomy History of section History of carpal tunnel release (~2018) Family History Family History Father Hypertension Diabetes History of kidney cancer Mother Diabetes Hypertension Heart disease Brother Hypertension Diabetes Brother No problems noted. Son Hypertension Prediabetes Heart disease Daughter Prediabetes Social History Social History Household Members: Spouse Are you a primary nursing care partner to a significant other at home: No Do you presently have visiting nurse or other home services: Yes ([facility]NA) Alcohol intake: never Patient Tobacco Use Status: Never used Tobacco Advance Directives: No Advance Directives Information Provided: Yes Do you have a plan to hurt others: No Plan Physical Exam 2 Vital Signs: Vital Signs: Last Vital Signs Temp 98.5 F 05/11/24 06:30 Pulse 98 05/11/24 06:30 Resp 18 05/11/24 06:30 BP 154/88 H 05/11/24 06:30 Pulse Ox 97 05/11/24 06:30 O2 Del Method Room Air 05/11/24 06:30 BMI result Body Mass Index 30.7 Const: General: cooperative, no acute distress, alert and awake Nutritional Appearance: well nourished Orientation/consciousness: patient oriented x3 Limitations: no limitations HEENT: Head: Yes normal to inspection and Yes atraumatic Ears: hearing grossly normal bilaterally and external ears normal General nose exam: Normal external nose present, no nasal discharge noted and no epistaxis Face and sinus: Yes normal facial exam, No abrasion and No laceration Mouth: Normal oral and palatal mucosa present, no drooling and no muffled voice Eyes: General: appearance normal, both eyes and all related structures P eriorbital: periorbital findings normal Eyelids: Yes eyelids normal C onjunctivae: conjunctivae normal Pupils: Equal, round and reactive pupils present EOM: EOMs intact bilaterally Neck: Neck: Yes normal visual inspection, Yes full ROM and Yes no lymphadenopathy Chest: Chest palpation & inspection: normal inspection of the chest Resp: Effort & Inspection: normal respiratory effort and able to speak in complete sentences GI: Inspection: Yes normal to inspection Neuro: General: patient oriented x3 and moves all extremities Cranial nerves: Yes Equal, round and reactive pupils present Cognition (Neuro): n ormal cognition Extrem: General: Yes normal to inspection, Yes full ROM and Yes capillary refill normal Psych: Appearance: grossly normal Mental Status: mental status grossly normal Affect: normal affect Attitude: cooperative Thought process: N ormal thought process present Thought content: Normal thought content present Insight: Good insight present (Psych) Medications Administered Discontinued Medications Generic Name Dose Route Start Last Admin Trade Name Freq PRN Reason Stop Dose Admin Acetaminophen 650 mg 05/11/24 07:55 05/11/24 08:03 Acetaminophen 325 Mg Tablet PO 05/11/24 07:56 650 mg ONCE ONE Administration Ketorolac Tromethamine 15 mg 05/11/24 07:55 05/11/24 08:03 Ketorolac Tromethamine 15 Mg/Ml Vial IM 05/11/24 07:56 15 mg ONCE ONE Administration Medical Decision Making Medical Decision Making [facility] Narrative: Patient is a 63 year old assigned female at with a history of polycystic kidneys, DM, and nephrosis presenting to the emergency department today with right sided flank pain. Patient's physical exam was unremarkable. Patient's blood work showed a WBC count of 12, BUN 22, and CR of 1.51. Patient's urine showed evidence of a possible infection. Patient's abd/pelvis CT showed significant right sided hydronephrosis. I spoke to Dr. Bloom who recommended medical admission and stated he would add her on for a procedure this afternoon. I spoke with the hospitalist team who agreed to admission. I explained my physical exam findings as well as all test results to the patient. I answered all questions asked by the patient. Patient received IV pain medication which, upon re-evaluation, she stated it helped her symptoms some. Patient verbalized agreement and understanding with this treatment plan and admission. Differential Diagnosis Differential Diagnoses: The differential diagnosis associated with the presentation includes Obstructing kidney stone Flank pain Admission/Observation Consideration of admission/observation: Escalation of care including admission/observation considered Patient admitted as noted in the MDM Rationale portion. Consult Healthcare Provider Management of the patient was discussed with: Hospitalist (agreed to admission as noted in the MDM Rationale portion of this note.) and Emergency Services Dispatcher (spoke to Dr. Bloom, the urologist, as noted in the MDM rationale portion of this note.) Lab Data [facility] Lab Attestation statement: I reviewed the patient's lab results. My interpretation of these results are in the MDM Rationale portion of this note. 05/11/24 06:44 05/11/24 06:44 Labs: Lab Results 05/11/24 Range/Units 06:44 WBC 12.0 H (4.8-10.8) X10*3/uL RBC 5.05 (4.20-5.50) X10*6/uL Hgb 14.0 (12.0-16.0) g/dl Hct 42.6 (37.0-47.0) % MCV 84.4 (80.0-98.0) fL MCH 27.7 (27.0-33.0) pg MCHC 32.9 (31.0-35.0) g/dl RDW 12.9 (11.0-16.0) % Plt Count 263 (160-400) X10*3/uL MPV 11.5 (9.4-12.3) fL Immature Gran % (Auto) 0.4 (0.0-0.4) % Neut % (Auto) 68.6 (45-73) % Lymph % (Auto) 18.3 L (20-40) % Gates % (Auto) 10.5 (2-11) % Eos % (Auto) 1.9 (0-4) % Baso % (Auto) 0.3 (0-2) % Lymph # (Auto) 2.2 (1.2-4.9) X10*3/uL Gates # (Auto) 1.3 H (0.1-1.2) X10*3/uL Eos # (Auto) 0.2 (0.0-0.4) X10*3/uL Baso # (Auto) 0.0 (0.0-0.2) X10*3/uL Abs Immat Gran (auto) 0.05 H (0.00-0.03) X10*3/uL Absolute Neuts (auto) 8.3 (2.0-8.3) x10*3/uL Absolute Nucleated RBC 0.000 (0.0-0.012) X10*3/uL Nucleated RBC % (auto) 0.0 (0.0-0.2) /100WBC Sodium 144 (135-145) mmol/L Potassium 3.9 (3.3-5.1) mmol/L Chloride 112 H (96-108) mmol/L Carbon Dioxide 23 (22-29) mmol/L Anion Gap 13 (12-20) BUN 22 H (9-16) mg/dL Creatinine 1.51 H (0.5-1.4) mg/dL Estim Creat Clear Calc 35.4 Estimated GFR 35 Random Glucose 164 H (60-115) mg/dL Calcium 9.5 (8.4-10.2) mg/dL Total Bilirubin 0.6 (0.0-1.0) mg/dL Direct Bilirubin 0.2 (0.0-0.5) mg/dL AST 13 (5-31) U/L ALT 12 (0-31) U/L Alkaline Phosphatase 84 (39-117) U/L Total Protein 7.7 (6.5-8.0) g/dL Albumin 4.1 (3.5-5.0) g/dL Lipase 35 (8-78) U/L Urine Color Dark Yellow Urine Appearance Turbid Urine pH 5.5 (5.0-9.0) Ur Specific [place] 1.025 (1.005-1.025) Urine Protein 100 (2+) H (Neg-Trace) mg/dL Urine Glucose (UA) >=1000 H (Negative) mg/dL Urine Ketones Negative (Negative) mg/dL Urine Blood Moderate (2+) H (Negative) Urine Nitrite Positive H (Negative) Ur Leukocyte Esterase Large (3+) H (Negative) Urine RBC >20 H (0-2) /HPF Urine WBC >50 H (0-5) /HPF Ur Squamous Epith Cells >20 (0-2) /HPF Urine Bacteria 2+ (None Seen) Hyaline Casts 0-2 (0-2) /LPF Independent Interpretation I performed an independent interpretation of an: CT Scan Interpretation: My interpretation is in agreement with the radiologist's impression of this imaging study. L Report Number: [id number]: Total DLP = 437.00 mGy-cm EXAMINATION: CT ABDOMEN PELVIS WITHOUT IV CONTRAST HISTORY: right flank pain COMPARISON: Correlation is made with an abdominal ultrasound dated 04/03/2021 TECHNIQUE: CT scan of the abdomen and pelvis was performed without contrast using standard departmental protocol. Coronal and sagittal reformatted images were generated and reviewed. Oral contrast material was not administered per department protocol. This CT exam was performed with one or more of the following dose reduction techniques: automated exposure control, adjustment of the mA and/or kV according to patient size, use of iterative reconstruction technique. DLP: 437 mGy-cm FINDINGS: LOWER CHEST: The visualized lung bases are clear. There is no pleural effusion. CARDIOVASCULATURE: The heart is normal in size. There is no pericardial effusion. LIVER: The liver is normal in size and contour. The liver has an unremarkable unenhanced appearance. GALLBLADDER / BILE DUCTS: The gallbladder is surgically absent. There is no intra or extrahepatic biliary ductal dilatation. SPLEEN: The spleen is normal in size and has an unremarkable unenhanced appearance. PANCREAS: The pancreas has an unremarkable unenhanced appearance. ADRENAL GLANDS: The right adrenal gland is unremarkable. There is a 1.7 cm left adrenal nodule demonstrates a density in 18.7 HU, which is indeterminate for adenoma. KIDNEYS/RETROPERITONEUM: There are multiple bilateral renal cysts including a 5.7 cm cyst at the upper pole of the right kidney, a 9.8 cm cyst at the lower pole of the right kidney, a 7.3 cm cyst at the upper pole of the left kidney, and a 4.6 cm cyst at the lower pole of the left kidney. No renal calculi are identified. There is severe right hydroureteronephrosis with abrupt tapering of the distal ureter to normal caliber just above the UVJ. No obstructing calculus is seen. There is no left hydroureteronephrosis. LYMPH NODES: There is a 2.0 cm left external iliac lymph node. VASCULATURE: The abdominal aorta is normal in caliber. MESENTERY/PERITONEUM: No free fluid. No masses. There is no free intraperitoneal gas. STOMACH: The patient is status post gastric surgery. SMALL BOWEL: The small bowel is normal in caliber. COLON: There is diverticulosis of the sigmoid colon, without evidence of diverticulitis. APPENDIX: Normal. URINARY BLADDER/PELVIC ORGANS: The urinary bladder is collapsed, limiting evaluation. The patient is status post hysterectomy. BONES / SOFT TISSUES: No suspicious bony or soft tissue abnormalities. CT/CT abdomen pelvis wo IV con IMPRESSION: 1. Severe right hydroureteronephrosis with abrupt tapering to normal caliber just above the UVJ. No obstructing calculus is identified. Neoplasm is not excluded, and cystoscopy with a retrograde study of the ureter is recommended. 2. 1.7 cm indeterminate left adrenal nodule. In the absence of a known primary malignancy, this likely represents an adenoma. If there is a known primary malignancy, adrenal protocol CT is recommended. 3. 2.0 cm left external iliac lymph node. Electronically signed by: Jose Enrique Shannon MD 05/11/2024 09:23 AM [facility] [place] Dictated By: Jose Enrique Shannon MD Signed By: Electronically signed by Jose Enrique Shannon MD 05/11/24 0923 Radiology Impression Discussion of test interpretation with radiology: I have reviewed the radiologist's reading. Chronic Conditions Patient?s care impacted by: Diabetes Critical Care Time Critical Care Time Critical Care Time: Yes Total Critical Care Time: 41 Attestation: I spent 41 minutes of Critical Care Time with this patient. This does not include time spent on separately reported billable procedures. Discharge Plan Discharge Clinical Impression: Hydronephrosis with renal and ureteral calculous obstruction Patient Disposition: Admitted As Inpatient Print Language: Amharic
[2024-05-11] MEDS: Ketorolac Tromethamine 15 MG/ML VIAL IM (08:03)
[2024-05-11] MEDS: Acetaminophen 325 MG TABLET 650 MG PO (08:03)
[2024-05-11] MEDS: Morphine Sulfate 4 MG/ML CARTRIDGE IVPUSH ×2 (10:22→12:15)
[2024-05-11] MEDS: ondansetron HCL 4 MG/2 ML VIAL IVPUSH ×2 (10:22→12:15)
--- NOTE | 2024-05-11 11:44 | P.HPHOSP_ITS ---
History of Present Illness Date of Service: 05/11/24 Chief Complaint: Hydronephrosis, Urine infection A 63 years old lady with PMH of DM, PCK, CKD3, GERD, HLD among others who is presenting to the hospital with Right sided flank pain. The patient has history of kidney stones and a CT scan was done showing severe hydronephrosis with infected urine. Admitted for IVF, Antibiotics and Urology procedure. 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 Son Hypertension Prediabetes Heart disease Daughter Prediabetes Surgical History History of surgery S/P fine needle aspiration S/P laparoscopic sleeve gastrectomy History of esophagogastroduodenoscopy (EGD) H/O colonoscopy Hx of biopsy History of partial hysterectomy History of total right knee replacement History of total left knee replacement (~2010) Hx of cholecystectomy History of section History of carpal tunnel release (~2017) Social History Household Members: Spouse Are you a primary director of critical care to a significant other at home: No Do you presently have visiting nurse or other home services: Yes (VNA) Alcohol intake: never Patient Tobacco Use Status: Never used Tobacco Advance Directives: No Advance Directives Information Provided: Yes Do you have a plan to hurt others: No Plan Meds Allergies Allergy/AdvReac Type Severity Reaction Status Date / Time latex [LATEX] Allergy Mild RASH Verified 05/11/24 06:34 metformin AdvReac Unknown Verified 05/11/24 06:34 Home Medications ?Medication ?Instructions ?Recorded ?Confirmed ?Last Taken ?Type amlodipine 10 mg tablet 10 mg PO DAILY 02/05/20 03/22/24 Unknown History fluticasone propionate 50 1 spray intranasal DAILY PRN nasal 07/19/20 03/22/24 Unknown History mcg/actuation nasal congestion spray,suspension blood sugar diagnostic 08/29/22 03/22/24 Unknown History blood-glucose meter (OneTouch #1 ea 08/29/22 03/22/24 Unknown History Ultra2 Meter) fluoxetine 40 mg capsule 40 mg PO DAILY 08/29/22 03/22/24 Unknown History trazodone 50 mg tablet 50 - 150 mg PO BEDTIME PRN 08/29/22 03/22/24 Unknown History lisinopril 40 mg tablet 40 mg PO DAILY 01/28/24 03/22/24 Unknown History metoprolol succinate 50 mg 50 mg PO DAILY 01/28/24 03/22/24 Unknown History tablet,extended release 24 hr tirzepatide 2.5 mg/0.5 mL 2.5 mg subcut MO 05/11/24 05/11/24 05/10/24 History subcutaneous pen injector (Negin) Physical Exam 2 Vital Signs and Narrative: Vital Signs: Last Vital Signs Temp 98.5 F 05/11/24 06:30 Pulse 76 05/11/24 11:12 Resp 18 05/11/24 11:12 BP 161/78 H 05/11/24 11:12 Pulse Ox 96 05/11/24 11:12 O2 Del Method Room Air 05/11/24 11:12 BMI result Body Mass Index 30.7 Results Labs 05/11/24 06:44 05/11/24 06:44 Labs: Laboratory Results - last 24 hr 05/11/24 06:44 MCV 84.4 MCH 27.7 MCHC 32.9 RDW 12.9 Plt Count 263 MPV 11.5 Immature Gran % (Auto) 0.4 Neut % (Auto) 68.6 Lymph % (Auto) 18.3 L Lewis % (Auto) 10.5 Eos % (Auto) 1.9 Baso % (Auto) 0.3 Lymph # (Auto) 2.2 Lewis # (Auto) 1.3 H Eos # (Auto) 0.2 Baso # (Auto) 0.0 Abs Immat Gran (auto) 0.05 H Absolute Neuts (auto) 8.3 Absolute Nucleated RBC 0.000 Nucleated RBC % (auto) 0.0 Anion Gap 13 Estim Creat Clear Calc 35.4 Estimated GFR 35 Random Glucose 164 H Calcium 9.5 Total Bilirubin 0.6 Direct Bilirubin 0.2 AST 13 ALT 12 Alkaline Phosphatase 84 Total Protein 7.7 Albumin 4.1 Lipase 35 Urine Color Dark Yellow Urine Appearance Turbid Urine pH 5.5 Ur Specific Burney 1.025 Urine Protein 100 (2+) H Urine Glucose (UA) >=1000 H Urine Ketones Negative Urine Blood Moderate (2+) H Urine Nitrite Positive H Ur Leukocyte Esterase Large (3+) H Urine RBC >20 H Urine WBC >50 H Ur Squamous Epith Cells >20 Urine Bacteria 2+ Hyaline Casts 0-2 Imaging Radiologist's Impressions: Impressions Abdomen/Pelvis CT 05/11/24 07:36 IMPRESSION: 1. Severe right hydroureteronephrosis with abrupt tapering to normal caliber just above the UVJ. No obstructing calculus is identified. Neoplasm is not excluded, and cystoscopy with a retrograde study of the ureter is recommended. 2. 1.7 cm indeterminate left adrenal nodule. In the absence of a known primary malignancy, this likely represents an adenoma. If there is a known primary malignancy, adrenal protocol CT is recommended. 3. 2.0 cm left external iliac lymph node. Electronically signed by: Jose Enrique Shannon MD 05/11/2024 09:23 AM [facility] [place] Assessment and Plan (1) Sepsis: Status: Acute (2) Hydronephrosis with renal and ureteral calculous obstruction: Status: Acute (3) UTI (urinary tract infection): Status: Acute Plan A 63 years old lady with PMH of DM, PCK, CKD3, GERD, HLD among others who is presenting to the hospital with Right sided flank pain. Sepsis 2/2 obstructive stone complicated with Hydronephrosis and UTI Blood and urine cultures pending IV Ceftriaxone IVF Urology consult NPO post midnight SETH on CKD3 Cr of 1.5 IVF and follow BMP DMII SSI, POC hold oral medications HTN Start Amlodipone and Metoprolol DVT PPx SCDs The patient needs 2 overnight stay pending cultures and urology input. Quality Stroke Does the patient have a stroke diagnosis?: No VTE Prior VTE?: No VTE Risk Level:: Medical - moderate - high VTE Device Contraindication: N/A - Device Ordered VTE Drug Contraindication: Treatment Not Indicated
--- NOTE | 2024-05-11 11:50 | PHA.MEDREC ---
Addendum entered by Kinga العلي RPh 05/11/24 12:20: Reviewed by [facility]. Original Note: Pharmacy Consult ? Medication Reconciliation Pharmacy has completed the medication reconciliation. 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 Patient was able to confirm all her medications. Patient stated she is no longer taking Clotrimazole 1% cream (Patient she only uses if need, but hasn't used in a long time.So, took off med rec), Benadryl 25 mg, Gabapentin 400 mg, HCTZ 12.5 mg, Hydrocortisone 1% cream, Lorazepam 0.25 mg, Meloxicam 15 mg, Metoprolol tart 25 mg( now on Metoprolol succ 50 mg). Patient confirmed Monjaro 2.5 mg/ml is every Friday, last dose was 05/10/24.
--- NOTE | 2024-05-11 12:02 | PC.NURSE ---
Per MD Raymundo, blood cultures not needed before IV antibiotics.
--- NOTE | 2024-05-11 12:06 | PC.NURSE ---
Per MD Raymundo, wants blood cultures prior to IV antibiotics.
[2024-05-11] MEDS: cefTRIAXone sodium 1 GM VIAL IVPUSH (12:17)
[2024-05-11] MEDS: Lactated Ringers 1,000 ML 100 ML IVCONT ×2 (12:18→22:18)
[2024-05-11] MEDS: Prochlorperazine Edisylate 10 MG/2 ML VIAL 5 MG IVPUSH (14:46)
[2024-05-11 15:44] LABS: Glucose, Whole Blood 129 mg/dL (60-115)
[2024-05-11 20:15] LABS: Glucose, Whole Blood 99 mg/dL (60-115)
[2024-05-12] VITALS (10 sets, daily range): BP systolic 122–163; BP diastolic 65–88; PULSE 74–96; RESP 16–18; TEMP 36.3–37.1; O2SAT 93–98; BMI 31.1
[2024-05-12 06:58] LABS: Hemoglobin 11.6 g/dl (12.0-16.0); Mean Corpuscular HGB Conc 32.2 g/dl (31.0-35.0); Mean Corpuscular Hemoglobin 27.5 pg (27.0-33.0); Mean Corpuscular Volume 85.3 fL (80.0-98.0); Mean Platelet Volume 11.9 fL (9.4-12.3); Platelet Count 246 X10*3/uL (160-400); Red Blood Count 4.22 X10*6/uL (4.20-5.50); Red Cell Distribution Width 12.8 % (11.0-16.0); White Blood Count 9.5 X10*3/uL (4.8-10.8)
[2024-05-12 07:18] LABS: Anion Gap 8 (12-20); Blood Urea Nitrogen 24 mg/dL (9-16); Calcium 9.1 mg/dL (8.4-10.2); Carbon Dioxide 29 mmol/L (22-29); Chloride 111 mmol/L (96-108); Creatinine Clr Calc Pharmacy 43.8; Estimated Glomerular Filt Rate 44; Glucose Random 107 mg/dL (60-115); Potassium 3.9 mmol/L (3.3-5.1); Sodium 144 mmol/L (135-145)
[2024-05-12 07:37] LABS: Glucose, Whole Blood 99 mg/dL (60-115)
[2024-05-12] MEDS: FLUoxetine HCl 20 MG CAPSULE 40 MG PO (08:43)
[2024-05-12] MEDS: Metoprolol Succinate ER 50 MG TAB.ER.24H PO (08:43)
[2024-05-12] MEDS: amLODIPine Besylate 10 MG TABLET PO (08:43)
[2024-05-12] MEDS: Sennosides 8.6 MG TABLET PO (08:44)
[2024-05-12] MEDS: Docusate Sodium 100 MG CAPSULE PO (08:44)
[2024-05-12] MEDS: Lactated Ringers 1,000 ML 100 ML IVCONT ×2 (08:45→20:19)
[2024-05-12] MEDS: cefTRIAXone sodium 1 GM VIAL IVPUSH (11:10)
[2024-05-12 11:17] LABS: Glucose, Whole Blood 101 mg/dL (60-115)
--- NOTE | 2024-05-12 11:38 | HO.PM.IMPN ---
Subjective Subjective Date of Service: 05/12/24 Interval History: seen and evaluated this morning feels better overall denies fever but pain still there no other events Review of Systems Review of Systems: Yes all other systems are reviewed and are negative Physical Exam Vital Signs: Vital Signs: Last Vital Signs Temp 97.4 F 05/12/24 07:32 Pulse 74 05/12/24 07:32 Resp 18 05/12/24 07:32 BP 158/77 H 05/12/24 07:32 Pulse Ox 97 05/12/24 07:32 O2 Del Method Room Air 05/12/24 07:32 BMI result Body Mass Index 31.1 Const: Other: Constitutional : Awake, interactive, not in distress Neck : Normal inspection, Supple Cardiovascular : RRR, no JVP, no lower extremity edema Respiratory : good bilateral air entry, no crackles, wheezes or rhonchi Gastrointestinal: soft, lax, Normal bowel sounds, Non tender Urology: Left CVA tenderness Skin : Warm, Dry Neurological : Alert & oriented x3, No focal deficit Objective Data Active Medications Acetaminophen (Acetaminophen 325 Mg Tablet) 650 mg PO Q6H PRN PRN Reason: Pain, Mild 1-3,fever,headache Amlodipine Besylate (Amlodipine Besylate 10 Mg Tablet) 10 mg PO DAILY [facility]; Protocol Last Admin: 05/12/24 08:43 Dose: 10 mg Documented By: YULISSA Calcium Carbonate (Calcium Carbonate 750 Mg Tab.Chew) 750 mg PO Q4H PRN PRN Reason: Heartburn Ceftriaxone Sodium (Ceftriaxone Sodium 1 Gm Vial) 1 gm IVPUSH Q24H [facility] Last Admin: 05/12/24 11:10 Dose: 1 gm Documented By: YULISSA Docusate Sodium (Docusate Sodium 100 Mg Capsule) 100 mg PO BID [facility] Last Admin: 05/12/24 08:44 Dose: 100 mg Documented By: YULISSA Fluoxetine HCl (Fluoxetine Hcl 20 Mg Capsule) 40 mg PO DAILY [facility] Last Admin: 05/12/24 08:43 Dose: 40 mg Documented By: YULISSA Fluticasone Propionate (Fluticasone Propionate Nasal 16 Gm [place]) 1 spray NOSTRIL-B DAILY PRN PRN Reason: nasal congestion Lactated Ringer's (Lr) 1,000 mls @ 100 mls/hr IVCONT .Q10H [facility] Last Admin: 05/12/24 08:45 Dose: 100 mls/hr Documented By: YULISSA Insulin Human Lispro (Insulin Lispro 100 Unit/Ml 3 Ml Vial) 0 unit SUBCUT QIDACHS [facility]; Protocol Last Admin: 05/12/24 11:11 Dose: Not Given Documented By: YULISSA Non-Admin Reason: No Insulin Coverage Magnesium Hydroxide (Milk Of Magnesia 30 Ml Oral.Susp) 30 ml PO DAILY PRN PRN Reason: Constipation Melatonin (Melatonin 3 Mg Tablet) 6 mg PO BEDTIME PRN PRN Reason: Insomnia Metoprolol Succinate (Metoprolol Succinate Er 50 Mg Tab.Er.24h) 50 mg PO DAILY [facility]; Protocol Last Admin: 05/12/24 08:43 Dose: 50 mg Documented By: YULISSA Morphine Sulfate (Morphine Sulfate 4 Mg/Ml Cartridge) 4 mg IVPUSH Q4H PRN; Protocol PRN Reason: Pain, Severe (Pain Scale 7-10) Last Admin: 05/11/24 12:15 Dose: 4 mg Documented By: RIANA Ondansetron HCl (Ondansetron Hcl 4 Mg/2 Ml Vial) 4 mg IVPUSH Q8H PRN PRN Reason: Nausea and Vomiting Last Admin: 05/11/24 12:15 Dose: 4 mg Documented By: RIANA Senna (Sennosides 8.6 Mg Tablet) 8.6 mg PO DAILY [facility] Last Admin: 05/12/24 08:44 Dose: 8.6 mg Documented By: YULISSA Sodium Chloride (0.9 % Sodium Chloride Flush 3 Ml Syringe) 3 ml IVFLUSH QSHIFT [facility] Last Admin: 05/12/24 08:40 Dose: Not Given Documented By: YULISSA Non-Admin Reason: IV Running Trazodone HCl (Trazodone Hcl 100 Mg Tablet) 100 mg PO BEDTIME PRN PRN Reason: Sleep Labs 05/12/24 06:11 05/12/24 06:11 Labs: Laboratory Results - last 24 hr 05/11/24 05/11/24 05/12/24 15:39 19:48 06:11 MCV 85.3 MCH 27.5 MCHC 32.2 RDW 12.8 Plt Count 246 MPV 11.9 Absolute Nucleated RBC 0.000 Nucleated RBC % (auto) 0.0 Anion Gap 8 L Estim Creat Clear Calc 43.8 Estimated GFR 44 POC Glucose 129 H 99 Random Glucose 107 Calcium 9.1 05/12/24 05/12/24 07:32 11:10 MCV MCH MCHC RDW Plt Count MPV Absolute Nucleated RBC Nucleated RBC % (auto) Anion Gap Estim Creat Clear Calc Estimated GFR POC Glucose 99 101 Random Glucose Calcium Assessment and Plan (1) UTI (urinary tract infection): Status: Acute (2) Sepsis: Status: Acute (3) Hydronephrosis with renal and ureteral calculous obstruction: Status: Acute Plan A 63 years old lady with PMH of DM, PCK, CKD3, GERD, HLD among others who is presenting to the hospital with Right sided flank pain. Sepsis 2/2 obstructive stone complicated with Hydronephrosis and UTI leukocytosis resolved Blood and urine cultures pending IV Ceftriaxone IVF Urology consult for stone removal NPO for now SETH on CKD3 Cr improved to 1.2 IVF and follow BMP DMII SSI, POC hold oral medications HTN Start Amlodipone and Metoprolol DVT PPx SCDs The patient needs overnight stay pending cultures and urology intervention for stone removal Quality Stroke Does the patient have a stroke diagnosis?: No VTE Prior VTE?: No VTE Risk Level:: Medical - moderate - high VTE Device Contraindication: N/A - Device Ordered VTE Drug Contraindication: Treatment Not Indicated
--- NOTE | 2024-05-12 13:52 | PM.UROCN ---
History of Present Illness Consult details Consult date: 05/11/24 Narrative: CC: Right ureteric stone 63-year-old female Prior history of diabetes, CKD 3 Presents with persistent right flank pain Prior history kidney stones Lab work creatinine 1.5 on admission. Baseline 1.2. Calcium 9.1, WBC [address] scan - There is severe right hydroureteronephrosis with abrupt tapering of the distal ureter to normal caliber just above the UVJ. Recommend admission, antibiotics for 24 hours, cystoscopy with right retrograde and right ureteroscopy Review of Systems Constitutional: Constitutional: Reports as per HPI and Reports no additional constitutional complaints Cardiovascular: Cardiovascular: Reports as per HPI and Reports no additional cardiovascular complaints Respiratory: Respiratory: Reports as per HPI and Reports no additional respiratory complaints Gastrointestinal: Gastrointestinal: Reports as per HPI and Reports no additional gastrointestinal complaints Genitourinary: Genitourinary: Reports as per HPI Musculoskeletal: Musculoskeletal: Reports no additional musculoskeletal complaints and Reports as per HPI Neurologic: Reports system reviewed and no additional complaints, except as documented and Reports as per HPI [facility] Past Medical History Medical History Anxiety Depression GERD (gastroesophageal reflux disease) COVID-19 vaccine series completed Tachycardia Toxic multinodul goiter Chronic renal insufficiency Nephrolithiasis Cyst, kidney, acquired Diabetic neuropathy BMI 34.0-34.9,adult BMI 35.0-35.9,adult BMI 36.0-36.9,adult Pre-op evaluation B12 deficiency Obesity (BMI 30-39.9) Non-toxic multinodular goiter Dyslipidemia Diabetic 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 with type 2 diabetes mellitus halfway (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 insulin Distal radius fracture, right HTN (hypertension) Chronic kidney disease Diabetes type 2, uncontrolled Family History Family History Father Hypertension Diabetes History of kidney cancer Mother Diabetes Hypertension Heart disease Brother Hypertension Diabetes Brother No problems noted. Son Hypertension Prediabetes Heart disease Daughter Prediabetes Surgical History Surgical History History of surgery S/P fine needle aspiration S/P laparoscopic sleeve gastrectomy History of esophagogastroduodenoscopy (EGD) H/O colonoscopy Hx of biopsy History of partial hysterectomy History of total right knee replacement History of total left knee replacement (~2010) Hx of cholecystectomy History of section History of carpal tunnel release (~2017) Social History Social History Household Members: Spouse Housing: Apartment Are you a primary healthcare facility administrator to a significant other at home: No Do you presently have visiting nurse or other home services: No Alcohol intake: never Patient Tobacco Use Status: Never used Tobacco Meds Allergies Allergy/AdvReac Type Severity Reaction Status Date / Time latex [LATEX] Allergy Mild RASH Verified 05/11/24 06:34 metformin AdvReac Unknown Verified 05/11/24 06:34 Active Medications: Current Medications Acetaminophen (Acetaminophen 325 Mg Tablet) 650 mg PO Q6H PRN PRN Reason: Pain, Mild 1-3,fever,headache Amlodipine Besylate (Amlodipine Besylate 10 Mg Tablet) 10 mg PO DAILY [facility]; Protocol Last Admin: 05/12/24 08:43 Dose: 10 mg Calcium Carbonate (Calcium Carbonate 750 Mg Tab.Chew) 750 mg PO Q4H PRN PRN Reason: Heartburn Ceftriaxone Sodium (Ceftriaxone Sodium 1 Gm Vial) 1 gm IVPUSH Q24H [facility] Last Admin: 05/12/24 11:10 Dose: 1 gm Docusate Sodium (Docusate Sodium 100 Mg Capsule) 100 mg PO BID [facility] Last Admin: 05/12/24 08:44 Dose: 100 mg Fluoxetine HCl (Fluoxetine Hcl 20 Mg Capsule) 40 mg PO DAILY [facility] Last Admin: 05/12/24 08:43 Dose: 40 mg Fluticasone Propionate (Fluticasone Propionate Nasal 16 Gm [place]) 1 spray NOSTRIL-B DAILY PRN PRN Reason: nasal congestion Lactated Ringer's (Lr) 1,000 mls @ 100 mls/hr IVCONT .Q10H [facility] Last Admin: 05/12/24 08:45 Dose: 100 mls/hr Insulin Human Lispro (Insulin Lispro 100 Unit/Ml 3 Ml Vial) 0 unit SUBCUT QIDACHS [facility]; Protocol Last Admin: 05/12/24 11:11 Dose: Not Given Magnesium Hydroxide (Milk Of Magnesia 30 Ml Oral.Susp) 30 ml PO DAILY PRN PRN Reason: Constipation Melatonin (Melatonin 3 Mg Tablet) 6 mg PO BEDTIME PRN PRN Reason: Insomnia Metoprolol Succinate (Metoprolol Succinate Er 50 Mg Tab.Er.24h) 50 mg PO DAILY [facility]; Protocol Last Admin: 05/12/24 08:43 Dose: 50 mg Morphine Sulfate (Morphine Sulfate 4 Mg/Ml Cartridge) 4 mg IVPUSH Q4H PRN; Protocol PRN Reason: Pain, Severe (Pain Scale 7-10) Last Admin: 05/11/24 12:15 Dose: 4 mg Ondansetron HCl (Ondansetron Hcl 4 Mg/2 Ml Vial) 4 mg IVPUSH Q8H PRN PRN Reason: Nausea and Vomiting Last Admin: 05/11/24 12:15 Dose: 4 mg Senna (Sennosides 8.6 Mg Tablet) 8.6 mg PO DAILY [facility] Last Admin: 05/12/24 08:44 Dose: 8.6 mg Sodium Chloride (0.9 % Sodium Chloride Flush 3 Ml Syringe) 3 ml IVFLUSH QSHIFT [facility] Last Admin: 05/12/24 08:40 Dose: Not Given Trazodone HCl (Trazodone Hcl 100 Mg Tablet) 100 mg PO BEDTIME PRN PRN Reason: Sleep Home Medications ?Medication ?Instructions ?Recorded ?Confirmed ?Last Taken ?Type amlodipine 10 mg tablet 10 mg PO DAILY 02/05/20 05/11/24 05/10/24 History fluticasone propionate 50 1 spray intranasal DAILY PRN nasal 07/19/20 05/11/24 05/10/24 History mcg/actuation nasal congestion spray,suspension blood sugar diagnostic 08/29/22 03/22/24 Unknown History blood-glucose meter (OneTouch #1 ea 08/29/22 03/22/24 Unknown History Ultra2 Meter) fluoxetine 40 mg capsule 40 mg PO DAILY 08/29/22 05/11/24 05/10/24 History trazodone 50 mg tablet 50 - 150 mg PO BEDTIME PRN Sleep 08/29/22 05/11/24 05/10/24 History lisinopril 40 mg tablet 40 mg PO DAILY 01/28/24 05/11/24 05/10/24 History metoprolol succinate 50 mg 50 mg PO DAILY 01/28/24 05/11/24 05/10/24 History tablet,extended release 24 hr tirzepatide 2.5 mg/0.5 mL 2.5 mg subcut MO 05/11/24 05/11/24 05/10/24 History subcutaneous pen injector (Mounjaro) Physical Exam Vital Signs: Vital Signs: Last Vital Signs Temp 98.8 F 05/12/24 11:41 Pulse 78 05/12/24 11:41 Resp 18 05/12/24 11:41 BP 140/73 H 05/12/24 11:41 Pulse Ox 98 05/12/24 11:41 O2 Del Method Room Air 05/12/24 11:41 BMI result Body Mass Index 31.1 Const: General: cooperative, healthy appearing, comfortable and no acute distress Orientation/consciousness: patient oriented x3 HEENT: Face and sinus: Yes normal facial exam Mouth: moist mucous membranes Neck: Neck: Yes normal visual inspection, Yes full ROM and Yes trachea midline Chest: Chest palpation & inspection: normal inspection of the chest Resp: Effort & Inspection: normal respiratory effort, able to speak in complete sentences and no respiratory distress GI: Inspection: Yes normal to inspection Back/Spine/Pelvis: Cervical Spine: normal cervical lordosis Thoracic/Lumbar Spine: thoracic and lumbar spine normal to inspection Skin: General skin exam: no rashes or lesions noted Neuro: General: patient oriented x3, tone normal and moves all extremities Extrem: General: Yes normal to inspection and Yes capillary refill normal Results Labs 05/12/24 06:11 05/12/24 06:11 Labs: Abnormal lab results 05/11/24 05/12/24 Range/Units 15:39 06:11 Hgb 11.6 L (12.0-16.0) g/dl Hct 36.0 L (37.0-47.0) % Chloride 111 H (96-108) mmol/L Anion Gap 8 L (12-20) BUN 24 H (9-16) mg/dL POC Glucose 129 H (60-115) mg/dL Short CBC 05/12/24 Range/Units 06:11 WBC 9.5 (4.8-10.8) X10*3/uL Hgb 11.6 L (12.0-16.0) g/dl Hct 36.0 L (37.0-47.0) % Plt Count 246 (160-400) X10*3/uL BMP 05/12/24 06:11 Sodium 144 Potassium 3.9 Chloride 111 H Carbon Dioxide 29 BUN 24 H Creatinine 1.23 Calcium 9.1 Urine 05/11/24 Range/Units 06:44 Urine Color Dark Yellow Urine Appearance Turbid Urine pH 5.5 (5.0-9.0) Ur Specific [place] 1.025 (1.005-1.025) Urine Protein 100 (2+) H (Neg-Trace) mg/dL Urine Glucose (UA) >=1000 H (Negative) mg/dL All other labs normal. Assessment and Plan (1) Hydronephrosis with renal and ureteral calculous obstruction: Status: Acute (2) UTI (urinary tract infection): Status: Acute Plan Ureteroscopy We discussed the nature of the decision and reasonable alternatives for performing ureteroscopy. Options such as medical therapy were discussed. Interventions include chemical dissolution, ESWL, ureteroscopy with laser lithotripsy and stent placement, PCNL. The relative uncertainties and benefits related to each alternate procedure were adequately discussed. General surgical risks including, but not limited to - pain, bleeding, infection, myocardial infarction, pulmonary embolus, deep vein thrombosis and cerebrovascular accident which may result in further hospitalization were discussed. Full disclosure of the procedure as well as all major risks, benefits and complications were discussed including but not limited to damage to the urethra, bladder and kidney infection, damage to the ureter, stent migration or malposition, scarring to the renal pelvis, remnant stone fragments, subsequent stone passage with need for secondary procedures. The overall secondary procedure rate is approximately 10-15%. The overall clearance rate is approximately 90-95%. Success of the procedure in the short-term does not necessarily guarantee that long-term success will be maintained. Suitable follow up will need to be maintained. The patient showed understanding of discussion and wishes to proceed with - cystoscopy, retrograde, ureteroscopy, possible lithotripsy/stone basketing and stent on the right side Procedures Date of Service Date of Service: 05/12/24
--- NOTE | 2024-05-12 14:48 | MHC.CM.PN ---
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
--- NOTE | 2024-05-12 15:59 | HO.ANESPROP2 ---
[facility] Active Problems Active Problems: All Active Problems UTI (urinary tract infection) (Acute) Sepsis (Acute) Hydronephrosis with renal and ureteral calculous obstruction (Acute) Varicose veins of left lower extremity with inflammation (Acute) Excess skin (Acute) Overweight (Acute) Diabetes mellitus (Acute) S/P laparoscopic sleeve gastrectomy (Acute) Congenital intra-abdominal adhesions (Acute) Intra-abdominal adhesions (Acute) Anxiety (Acute) Depression (Acute) GERD (gastroesophageal reflux disease) (Acute) SOB (shortness of breath) (Acute) Obese (Acute) Adjustment disorder, unspecified (Acute) BMI 33.0-33.9,adult (Acute) Toxic multinodul goiter (Acute) HTN (hypertension) (Acute) Chronic renal insufficiency (Acute) B12 deficiency (Acute) Obesity (BMI 30-39.9) (Acute) Non-toxic multinodular goiter (Acute) Dyslipidemia (Acute) Diabetic 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 with type 2 diabetes mellitus (Acute) MCC (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 insulin (Acute) Diabetes type 2, uncontrolled (Acute) Past Medical History Medical History Anxiety Depression GERD (gastroesophageal reflux disease) COVID-19 vaccine series completed Tachycardia Toxic multinodul goiter Chronic renal insufficiency Nephrolithiasis Cyst, kidney, acquired Diabetic neuropathy BMI 34.0-34.9,adult BMI 35.0-35.9,adult BMI 36.0-36.9,adult Pre-op evaluation B12 deficiency Obesity (BMI 30-39.9) Non-toxic multinodular goiter Dyslipidemia Diabetic 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 with type 2 diabetes mellitus MCC (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 insulin Distal radius fracture, right HTN (hypertension) Chronic kidney disease Diabetes type 2, uncontrolled Family History Family History Father Hypertension Diabetes History of kidney cancer Mother Diabetes Hypertension Heart disease Brother Hypertension Diabetes Brother No problems noted. Son Hypertension Prediabetes Heart disease Daughter Prediabetes Family history of problems with anesthesia: No Surgical History Surgical History History of surgery S/P fine needle aspiration S/P laparoscopic sleeve gastrectomy History of esophagogastroduodenoscopy (EGD) H/O colonoscopy Hx of biopsy History of partial hysterectomy History of total right knee replacement History of total left knee replacement (~2010) Hx of cholecystectomy History of section History of carpal tunnel release (~2018) History of Problems with Anesthesia: No Social History Social History Household Members: Spouse Housing: Apartment Are you a primary rn progressive care unit to a significant other at home: No Do you presently have visiting nurse or other home services: No Alcohol intake: never Patient Tobacco Use Status: Never used Tobacco service: No Meds Allergies Allergy/AdvReac Type Severity Reaction Status Date / Time latex [LATEX] Allergy Mild RASH Verified 05/11/24 06:34 metformin AdvReac Unknown Verified 05/11/24 06:34 Active Medications: Current Medications Acetaminophen (Acetaminophen 325 Mg Tablet) 650 mg PO Q6H PRN PRN Reason: Pain, Mild 1-3,fever,headache Amlodipine Besylate (Amlodipine Besylate 10 Mg Tablet) 10 mg PO DAILY [facility]; Protocol Last Admin: 05/12/24 08:43 Dose: 10 mg Calcium Carbonate (Calcium Carbonate 750 Mg Tab.Chew) 750 mg PO Q4H PRN PRN Reason: Heartburn Ceftriaxone Sodium (Ceftriaxone Sodium 1 Gm Vial) 1 gm IVPUSH Q24H [facility] Last Admin: 05/12/24 11:10 Dose: 1 gm Docusate Sodium (Docusate Sodium 100 Mg Capsule) 100 mg PO BID [facility] Last Admin: 05/12/24 08:44 Dose: 100 mg Fluoxetine HCl (Fluoxetine Hcl 20 Mg Capsule) 40 mg PO DAILY [facility] Last Admin: 05/12/24 08:43 Dose: 40 mg Fluticasone Propionate (Fluticasone Propionate Nasal 16 Gm [place]) 1 spray NOSTRIL-B DAILY PRN PRN Reason: nasal congestion Lactated Ringer's (Lr) 1,000 mls @ 100 mls/hr IVCONT .Q10H [facility] Last Admin: 05/12/24 08:45 Dose: 100 mls/hr Insulin Human Lispro (Insulin Lispro 100 Unit/Ml 3 Ml Vial) 0 unit SUBCUT QIDACHS [facility]; Protocol Last Admin: 05/12/24 11:11 Dose: Not Given Magnesium Hydroxide (Milk Of Magnesia 30 Ml Oral.Susp) 30 ml PO DAILY PRN PRN Reason: Constipation Melatonin (Melatonin 3 Mg Tablet) 6 mg PO BEDTIME PRN PRN Reason: Insomnia Metoprolol Succinate (Metoprolol Succinate Er 50 Mg Tab.Er.24h) 50 mg PO DAILY [facility]; Protocol Last Admin: 05/12/24 08:43 Dose: 50 mg Morphine Sulfate (Morphine Sulfate 4 Mg/Ml Cartridge) 4 mg IVPUSH Q4H PRN; Protocol PRN Reason: Pain, Severe (Pain Scale 7-10) Last Admin: 05/11/24 12:15 Dose: 4 mg Ondansetron HCl (Ondansetron Hcl 4 Mg/2 Ml Vial) 4 mg IVPUSH Q8H PRN PRN Reason: Nausea and Vomiting Last Admin: 05/11/24 12:15 Dose: 4 mg Senna (Sennosides 8.6 Mg Tablet) 8.6 mg PO DAILY [facility] Last Admin: 05/12/24 08:44 Dose: 8.6 mg Sodium Chloride (0.9 % Sodium Chloride Flush 3 Ml Syringe) 3 ml IVFLUSH QSHIFT [facility] Last Admin: 05/12/24 08:40 Dose: Not Given Trazodone HCl (Trazodone Hcl 100 Mg Tablet) 100 mg PO BEDTIME PRN PRN Reason: Sleep Home Medications ?Medication ?Instructions ?Recorded ?Confirmed ?Last Taken ?Type amlodipine 10 mg tablet 10 mg PO DAILY 02/05/20 05/11/24 05/10/24 History fluticasone propionate 50 1 spray intranasal DAILY PRN nasal 07/19/20 05/11/24 05/10/24 History mcg/actuation nasal congestion spray,suspension blood sugar diagnostic 08/29/22 03/22/24 Unknown History blood-glucose meter (OneTouch #1 ea 08/29/22 03/22/24 Unknown History Ultra2 Meter) fluoxetine 40 mg capsule 40 mg PO DAILY 08/29/22 05/11/24 05/10/24 History trazodone 50 mg tablet 50 - 150 mg PO BEDTIME PRN Sleep 08/29/22 05/11/24 05/10/24 History lisinopril 40 mg tablet 40 mg PO DAILY 01/28/24 05/11/24 05/10/24 History metoprolol succinate 50 mg 50 mg PO DAILY 01/28/24 05/11/24 05/10/24 History tablet,extended release 24 hr tirzepatide 2.5 mg/0.5 mL 2.5 mg subcut MO 05/11/24 05/11/24 05/10/24 History subcutaneous pen injector (Memomurphy) Exam Height,Weight and Vital Signs: Height 5 ft 1 in Weight 74.7 kg Last Vital Signs Temp 98.8 F 05/12/24 11:41 Pulse 78 05/12/24 11:41 Resp 18 05/12/24 11:41 BP 140/73 H 05/12/24 11:41 Pulse Ox 98 05/12/24 11:41 O2 Del Method Room Air 05/12/24 11:41 Pertinent Lab Results Pertinent Lab Results: Laboratory Tests 05/11/24 05/11/24 05/11/24 06:44 15:39 19:48 WBC 12.0 H RBC 5.05 Hgb 14.0 Hct 42.6 MCV 84.4 MCH 27.7 MCHC 32.9 RDW 12.9 Plt Count 263 MPV 11.5 Immature Gran % (Auto) 0.4 Neut % (Auto) 68.6 Lymph % (Auto) 18.3 L [place] % (Auto) 10.5 Eos % (Auto) 1.9 Baso % (Auto) 0.3 Lymph # (Auto) 2.2 [place] # (Auto) 1.3 H Eos # (Auto) 0.2 Baso # (Auto) 0.0 Abs Immat Gran (auto) 0.05 H Absolute Neuts (auto) 8.3 Absolute Nucleated RBC 0.000 Nucleated RBC % (auto) 0.0 Sodium 144 Potassium 3.9 Chloride 112 H Carbon Dioxide 23 Anion Gap 13 BUN 22 H Creatinine 1.51 H Estim Creat Clear Calc 35.4 Estimated GFR 35 POC Glucose 129 H 99 Random Glucose 164 H Calcium 9.5 Total Bilirubin 0.6 Direct Bilirubin 0.2 AST 13 ALT 12 Alkaline Phosphatase 84 Total Protein 7.7 Albumin 4.1 Lipase 35 Urine Color Dark Yellow Urine Appearance Turbid Urine pH 5.5 Ur Specific [place] 1.025 Urine Protein 100 (2+) H Urine Glucose (UA) >=1000 H Urine Ketones Negative Urine Blood Moderate (2+) H Urine Nitrite Positive H Ur Leukocyte Esterase Large (3+) H Urine RBC >20 H Urine WBC >50 H Ur Squamous Epith Cells >20 Urine Bacteria 2+ Hyaline Casts 0-2 05/12/24 05/12/24 05/12/24 06:11 07:32 11:10 WBC 9.5 RBC 4.22 Hgb 11.6 L Hct 36.0 L MCV 85.3 MCH 27.5 MCHC 32.2 RDW 12.8 Plt Count 246 MPV 11.9 Immature Gran % (Auto) Neut % (Auto) Lymph % (Auto) [place] % (Auto) Eos % (Auto) Baso % (Auto) Lymph # (Auto) [place] # (Auto) Eos # (Auto) Baso # (Auto) Abs Immat Gran (auto) Absolute Neuts (auto) Absolute Nucleated RBC 0.000 Nucleated RBC % (auto) 0.0 Sodium 144 Potassium 3.9 Chloride 111 H Carbon Dioxide 29 Anion Gap 8 L BUN 24 H Creatinine 1.23 Estim Creat Clear Calc 43.8 Estimated GFR 44 POC Glucose 99 101 Random Glucose 107 Calcium 9.1 Total Bilirubin Direct Bilirubin AST ALT Alkaline Phosphatase Total Protein Albumin Lipase Urine Color Urine Appearance Urine pH Ur Specific [place] Urine Protein Urine Glucose (UA) Urine Ketones Urine Blood Urine Nitrite Ur Leukocyte Esterase Urine RBC Urine WBC Ur Squamous Epith Cells Urine Bacteria Hyaline Casts Airway Mallampati Class: II TM Dist: >3cm Neck ROM: Full Heart: rrr Lungs: cta Assessment and Plan Assessment Anesthesia Assessment: Anesthesia Plan Discussed and Chart Reviewed Final Anesthetic Review Family History of Problems with Anesthesia: No History of Problems with Anesthesia: No NPO: Yes ASA Class: III and Emergency Final Preanesthetic Review: No Changes in Pt Med Stat, Meds/Allgs Chart Reviewed and Consent Obtained/Reviewed Patient Risk: Intermediate Procedure Risk: Low Anesthetic Plan Anesthetic Plan: GA Disposition: Standard PACU
[2024-05-12 16:08] LABS: Glucose, Whole Blood 90 mg/dL (60-115)
--- NOTE | 2024-05-12 16:49 | MHC.SHP ---
Pre-Procedural Eval Section A - 24 Hr Update-Section A only Date of Service: 05/12/24 The patient is an INPATIENT: Yes Changes since office visit: No Cold of Flu in the past 2 weeks, No New Medical Problems, No Changes in Medication and No Patient answered all questions The patient has been examined within 24 hours of the surgical procedure. The History & Physical has been completed within 30 days and I have reviewed it.: Yes Section B - Complete if H&P > 30 days Chief Complaint: Hydronephrosis, obstructing stone Details of Present Illness: Patient had GLP 1 injection on Friday. This is an urgent case. Anesthesia is aware. Relevant Family History (Specify if Yes): No Relevant Social History: None Present Medications: see Short Stay Collaborative assessment Medical History: No relevant PMH History of Previous Operations: No relevant previous surgery Allergies: Allergies Allergy/AdvReac Type Severity Reaction Status Date / Time latex [LATEX] Allergy Mild RASH Verified 05/11/24 06:34 metformin AdvReac Unknown Verified 05/11/24 06:34 Review of Systems Sugical H&P ROS: Negative: Constitution, Cardiovascular, Respiratory, Neurological, Psychiatric, Hem-Onc, Allergic/Immunologic, Gastrointestinal, Genitourinary, Musculoskeletal, Integumentary, Endocrine and Eyes/Ears/Nose/Throat Exam Surgical H&P Exam: Normal: HEENT, Normal: Heart, Normal: Lungs, Normal: Extremities, Normal: Abdomen, Normal: Skin and Normal: Neurological Plan Diagnosis/Plan: Unchanged (Cysto, right retrograde, right ureteroscopy with laser lithotripsy) I have reviewed the history and physical and performed a pertinent physical examination on my patient. No changes have occurred unless specified. Time Spent With Patient Time: Total time managing care of this patient today ____ minutes.
--- NOTE | 2024-05-12 17:35 | P.OP_ITS ---
Operative Note Operative Note Date of Service: 05/12/24 Narrative: PreOperative Diagnosis: right distal ureteric stone with hydronephrosis Post Operative Diagnosis: see above Procedure: - cystoscopy, right retrograde - right dilatation of ureteric orifice under fluoroscopy - right ureteroscopy - right stent placement Surgeon: Dr Renato Bloom Anesthesia: General Indications for procedure: right hydronephrosis with distal stone Procedure: After informed consent was verified the patient was brought to the operating room and placed in a supine position. Anesthesia was administered per protocol. The patient was placed in a modified dorsal lithotomy position and prepped and draped in a sterile fashion. Safety pause time-out and side of surgery were confirmed. Images were available for review. Antibiotic administration confirmed. A 22 [place] cystoscope was inserted per urethra. The urethra was without a bnormality. The bladder was normal in its entirety. Both ureteric orifices were seen in normal position. The right ureteric orifice was cannulated and a retrograde examination was performed. Hydroureteronephrosis . A Sensor guidewire was placed up to the level of the renal pelvis under fluoroscopy. The rigid cystoscope was removed. A Markel dilator was placed over the Sensor guidewire and used to dilate the ureteric orifice under fluoroscopy. The dilator was removed. The semi rigid ureteral scope was placed alongside the Sensor guidewire. Scope placed. Significant hydro, no stone seen. A decision was made to place a ureteric stent. Based on the height of the patient a 6 Fr x 22 stent was used. The string was removed from the stent prior to placement. A 6 [place] by 22 cm double-J stent was placed into the renal pelvis and bladder under a combination of fluoroscopy and direct visualization. The symphisis pubis was used as a radiographic marker to release the stent and good coil was seen within the bladder confirming position Proximal positioning of the stent was confirmed using fluoroscopy. The bladder was emptied. The patient tolerated the procedure well and was extuba bob in the operating room. They were transferred in stable condition to the recovery area. Pathology: no stone Drains: Double J stent as described above
[2024-05-12] MEDS: Phenazopyridine HCL 100 MG TABLET PO (17:57)
[2024-05-12 18:21] LABS: Glucose, Whole Blood 104 mg/dL (60-115)
[2024-05-12 20:28] LABS: Glucose, Whole Blood 258 mg/dL (60-115)
[2024-05-12] MEDS: Insulin Lispro 100 UNIT/ML 3 ML VIAL SUBCUT (20:37)
[2024-05-13] VITALS: BP 145/82; PULSE 79; RESP 18; TEMP 36.7; O2SAT 95
[2024-05-13 03:53] VITALS: BP 143/79; PULSE 77; RESP 18; TEMP 36.3; O2SAT 95
[2024-05-13] MEDS: Lactated Ringers 1,000 ML 100 ML IVCONT (05:57)
[2024-05-13 07:44] VITALS: BP 161/76; PULSE 78; RESP 16; TEMP 36.4; O2SAT 98
[2024-05-13 07:45] LABS: Glucose, Whole Blood 143 mg/dL (60-115)
[2024-05-13] MEDS: FLUoxetine HCl 20 MG CAPSULE 40 MG PO (08:01)
[2024-05-13] MEDS: amLODIPine Besylate 10 MG TABLET PO (08:02)
[2024-05-13] MEDS: Metoprolol Succinate ER 50 MG TAB.ER.24H PO (08:02)
--- NOTE | 2024-05-13 08:29 | HO.POSTANES ---
Post Anesthesia Evaluation Post Anesthesia Evaluation Date of Service: 05/13/24 Vital Signs: Vital Signs Temp Pulse Resp BP Pulse Ox O2 Del Method 05/13/24 07:44 97.5 F 78 16 161/76 H 98 Room Air 05/13/24 03:53 97.3 F 77 18 143/79 H 95 Room Air 05/13/24 00:00 98.1 F 79 18 145/82 H 95 Room Air Anesthesia: General LMA Mental Status: Awake Pain Control: Satisfactory Nausea/Vomiting: None Hydration: Adequate Anesthesia-Related Issues: No Anes. Related Issues
[2024-05-13 08:41] LABS: MANUAL DIFF FLAG NO
[2024-05-13 08:43] LABS: Basophils Percent Auto 0.1 % (0-2); Hematocrit 39.8 % (37.0-47.0); Imm Gran Abs Auto 0.07 X10*3/uL (0.00-0.03); Imm Gran Pct Auto 0.8 % (0.0-0.4); Lymphocytes Absolute Auto 1.4 X10*3/uL (1.2-4.9); Lymphocytes Percent Auto 15.5 % (20-40); Mean Corpuscular HGB Conc 32.7 g/dl (31.0-35.0); Mean Corpuscular Hemoglobin 27.4 pg (27.0-33.0); Mean Platelet Volume 11.6 fL (9.4-12.3); Monocytes Absolute Auto 0.6 X10*3/uL (0.1-1.2); Monocytes Percent Auto 5.9 % (2-11); Neutrophils Absolute Auto 7.2 x10*3/uL (2.0-8.3); Neutrophils Percent Auto 77.7 % (45-73); Platelet Count 299 X10*3/uL (160-400); Red Blood Count 4.74 X10*6/uL (4.20-5.50); Red Cell Distribution Width 12.3 % (11.0-16.0); White Blood Count 9.3 X10*3/uL (4.8-10.8)
[2024-05-13 08:57] LABS: Anion Gap 12 (12-20); Blood Urea Nitrogen 18 mg/dL (9-16); Calcium 9.6 mg/dL (8.4-10.2); Carbon Dioxide 29 mmol/L (22-29); Chloride 106 mmol/L (96-108); Creatinine Clr Calc Pharmacy 51.9; Estimated Glomerular Filt Rate 54; Glucose Random 144 mg/dL (60-115); Potassium 4.4 mmol/L (3.3-5.1); Sodium 143 mmol/L (135-145)
[2024-05-13 11:32] LABS: Glucose, Whole Blood 166 mg/dL (60-115)
[2024-05-13] MEDS: cefTRIAXone sodium 1 GM VIAL IVPUSH (11:52)
[2024-05-13] MEDS: Insulin Lispro 100 UNIT/ML 3 ML VIAL SUBCUT (11:52)
[2024-05-13 12:00] VITALS: BP 165/87; PULSE 86; RESP 16; TEMP 36.6; O2SAT 95
--- NOTE | 2024-05-13 12:49 | P.DS_ITS ---
DS: Providers Provider Date of Service: 05/13/24 Date of admission: 05/11/24 11:41 Date of discharge: 05/13/24 Primary care physician: Ginette Freeman MD Consults: 05/11/24 11:40 Consult to Urology Routine Consulting Provider: [facility] Reason for consultation: obstructing stone with severe [place] DS: Diagnosis Discharge Diagnosis (1) UTI (urinary tract infection): Status: Acute (2) Sepsis: Status: Acute (3) Hydronephrosis of right kidney: Status: Acute DS: Summary Hospital Course Hospital Course: Admission note HPI A 63 years old lady with PMH of DM, PCK, CKD3, GERD, HLD among others who is presenting to the hospital with Right sided flank pain. The patient has history of kidney stones and a CT scan was done showing severe hydronephrosis with infected urine. Admitted for IVF, Antibiotics and Urology procedure. Hospital course The patient was admitted for evaluation of Sepsis with right sided Hydronephrosis and UTI. as CT scan showed Severe right hydroureteronephrosis with abrupt tapering to normal caliber just above the UVJ. No obstructing calculus is identified. Treated with IV antibiotics as leukocytosis resolved and Blood and urine cultures followed growing E.Coli in urine. Treated with IV Ceftriaxone, fluids as she was evaluated by Urologist who did retrograde cystoscopy witl placement of double J stent. No stone was found raising question of possible underlying stenosis\malignancy which will be followed by dr Bloom in office. To continue 10 more days of Ceftin upon discharge. She was also noted to have SETH on CKD3 at presentation. resolved as creatinine improved back to baseline with IV fluids usage and holding nephrotoxic. restarted her home medicaitions prior to discharge. CT scan reported 1.7 cm Adrenal gland nodule that will need further work up as outpatient with Adrenal protocol CT. to be followed by PCP. a 2 cm left external iliac nodule will be followed on same image as well. Discharge plan Drink plenty of fluids and stay well hydrated Take Ceftin for 10 more days Follow with dr Bloom in office in 2 weeks Follow with PCP for further work up and following CT findings Time Attestation Discharge Coordination Time (in mins): 45 Quality: Safe Use of Opioids Does Pt have an Active Cancer Diagnosis on the Problem List?: No Quality: Stroke Does the patient have a stroke diagnosis?: No Physical Exam Vital Signs: Vital Signs: Last Vital Signs Temp 97.8 F 05/13/24 12:00 Pulse 86 05/13/24 12:00 Resp 16 05/13/24 12:00 BP 165/87 H 05/13/24 12:00 Pulse Ox 95 05/13/24 12:00 O2 Del Method Room Air 05/13/24 12:00 BMI result Body Mass Index 31.1 Const: Other: Constitutional : Awake, interactive, not in distress Neck : Normal inspection, Supple Cardiovascular : RRR, no JVP, no lower extremity edema Respiratory : good bilateral air entry, no crackles, wheezes or rhonchi Gastrointestinal: soft, lax, Normal bowel sounds, Non tender Urology: no CVA tenderness Skin : Warm, Dry Neurological : Alert & oriented x3, No focal deficit DS: Data Data Completed and Pending Completed studies during hospitalization [Text1]: Procedures Excision of Stomach, Percutaneous Endoscopic Approach, Vertical (08/22/21) Release Peritoneum, Percutaneous Endoscopic Approach (08/22/21) Labs on day of discharge: Laboratory Results - last 24 hr 05/12/24 05/12/24 05/12/24 16:04 18:16 20:24 WBC RBC Hgb Hct MCV MCH MCHC RDW Plt Count MPV Immature Gran % (Auto) Neut % (Auto) Lymph % (Auto) [place] % (Auto) Eos % (Auto) Baso % (Auto) Lymph # (Auto) [place] # (Auto) Eos # (Auto) Baso # (Auto) Abs Immat Gran (auto) Absolute Neuts (auto) Absolute Nucleated RBC Nucleated RBC % (auto) Sodium Potassium Chloride Carbon Dioxide Anion Gap BUN Creatinine Estim Creat Clear Calc Estimated GFR POC Glucose 90 104 258 H Random Glucose Calcium 05/13/24 05/13/24 05/13/24 07:32 07:42 11:24 WBC 9.3 RBC 4.74 Hgb 13.0 Hct 39.8 MCV 84.0 MCH 27.4 MCHC 32.7 RDW 12.3 Plt Count 299 MPV 11.6 Immature Gran % (Auto) 0.8 H Neut % (Auto) 77.7 H Lymph % (Auto) 15.5 L [place] % (Auto) 5.9 Eos % (Auto) 0.0 Baso % (Auto) 0.1 Lymph # (Auto) 1.4 [place] # (Auto) 0.6 Eos # (Auto) 0.0 Baso # (Auto) 0.0 Abs Immat Gran (auto) 0.07 H Absolute Neuts (auto) 7.2 Absolute Nucleated RBC 0.000 Nucleated RBC % (auto) 0.0 Sodium 143 Potassium 4.4 Chloride 106 Carbon Dioxide 29 Anion Gap 12 BUN 18 H Creatinine 1.04 Estim Creat Clear Calc 51.9 Estimated GFR 54 POC Glucose 143 H 166 H Random Glucose 144 H Calcium 9.6 Preliminary micro results at discharge 05/11/24 12:33 Blood Culture - Preliminary Blood - Venous No growth after 24 hours. 05/11/24 12:14 Blood Culture - Preliminary Blood - Venous No growth after 24 hours. Imaging Chest x-ray: Radiologist's impression: ITS Impressions Abdomen/Pelvis CT 05/11/24 07:36 IMPRESSION: 1. Severe right hydroureteronephrosis with abrupt tapering to normal caliber just above the UVJ. No obstructing calculus is identified. Neoplasm is not excluded, and cystoscopy with a retrograde study of the ureter is recommended. 2. 1.7 cm indeterminate left adrenal nodule. In the absence of a known primary malignancy, this likely represents an adenoma. If there is a known primary malignancy, adrenal protocol CT is recommended. 3. 2.0 cm left external iliac lymph node. Electronically signed by: Jose Enrique Shannon MD 05/11/2024 09:23 AM [employer] RP Guidance Fluoroscopy 05/12/24 17:00 IMPRESSION: Fluoroscopy guidance was provided to the referring physician the OR with no radiologist present during exam.. Electronically signed by: Sergio Burgos MD 05/13/2024 10:36 AM [facility] Discharge Plan Discharge Anticipated Discharge Date/Time: 05/13/24 12:44 Patient Disposition: Home, Self-Care Discharge Diagnosis: Right sided hydronephrosis with no obstructive stone Urine infection Referrals: Ginette Fortune MD [Primary Care Provider] - 1 Week Discharge Medications: New cefuroxime axetil 500 mg tablet 500 mg PO BID Qty: 20 0RF Continued (DME) pen needle, diabetic [Comfort EZ Pen Cactus] 32 gauge x 5/16 needle See Rx Instructions .Route Qty: 30 5RF Rx Instructions: As directed injects once a day (DME) OneTouch Ultra Test Strip See Rx Instructions .Route Qty: 100 4RF Rx Instructions: As directed 3 times a day (DME) FreeStyle Jame 2 Sensor Kit See Rx Instructions .ROUTE .COMPLEX Qty: 2 2RF Dose Instruction: USE DIRECTED TO TEST BLOOD SUGAR. CHANGE EVERY 10 DAYS Rx Instructions: USE DIRECTED TO TEST BLOOD SUGAR. CHANGE EVERY 10 DAYS docusate sodium 100 mg capsule 100 mg PO BID Qty: 90 3RF (DME) lancets Mis See Rx Instructions .Route Qty: 100 0RF Rx Instructions: As directed Mounjaro 2.5 mg/0.5 mL pen injector 2.5 mg subcut MO Rx Instructions: for 4 weeks amlodipine 10 mg tablet 10 mg PO DAILY fluticasone propionate 50 mcg/actuation spray,suspension 1 spray intranasal DAILY PRN (Reason: nasal congestion) sennosides [senna] 8.6 mg tablet 8.6 mg PO DAILY Qty: 90 1RF (DME) blood-glucose meter [OneTouch Ultra2 Meter] [facility] [place] Rx Instructions .ROUTE DIRECTED Qty: 1 Rx Instructions: As directed (DME) blood sugar diagnostic Strip See Rx Instructions .Route Rx Instructions: As directed trazodone 50 mg tablet 50 - 150 mg PO BEDTIME PRN (Reason: Sleep) fluoxetine 40 mg capsule 40 mg PO DAILY metoprolol succinate 50 mg tablet extended release 24 hr 50 mg PO DAILY lisinopril 40 mg tablet 40 mg PO DAILY (DME) FreeStyle Jame 2 [place] Mis See Rx Instructions .Route Qty: 1 0RF Rx Instructions: As directed Discharge Orders: Discharge Order (Routine); Ordered 05/13/24 Ordered By: Jayden Raymundo Diet: Advance to usual diet Activity on Discharge: As tolerated Stand Alone Forms: Patient Portal Discharge page Print Language: Slovenian Care Plan Goals: A stent was placed in your ureter with good response. No stone was found. will need to follow with Urology and PCP as outpatient. Drink plenty of fluids and stay well hydrated Take Ceftin for 10 more days Follow with dr Bloom in office in 2 weeks Follow with PCP for CT scan findings follow up. Health Concerns: Hydronephrosis Urine infection Plan of Treatment: Antibiotics Urology follow up Assessment: as above Patient Instructions: Hydronephrosis (DC), Ureteral Stent Placement (DC)
[2024-05-13] MEDS: lisinopriL 40 MG TABLET PO (12:53)
--- NOTE | 2024-05-13 14:06 | MHC.CM.PN ---
PT TO [place] HOME TODAY WITH RESUMPTION OF [employer] VIA PRIVATE TRANSPORT
== END 2024-05-13 14:11 | disposition home or self-care (01) | DRG 854 ==
LOC: HO.ED 09:58 → HO.EDOVER 11:46 → HO.S3 16:13
PROVIDERS: Urology; Admitting Provider Student in an Organized Health Care Education/Training Program; Emergency Provider Emergency Medicine; PCP Internal Medicine; Visit Provider Student in an Organized Health Care Education/Training Program
PROC: 0T768DZ Dilation of Right Ureter with Intraluminal Device, Via Natural or Artificial Opening Endoscopic (ICD-10-PCS; principal; 2024-05-12 16:30)
DX: A41.9 Sepsis, unspecified organism (principal); N13.6 Pyonephrosis; N17.9 Acute kidney failure, unspecified; B96.20 Unspecified Escherichia coli [E. coli] as the cause of diseases classified elsewhere; I12.9 Hypertensive chronic kidney disease with stage 1 through stage 4 chronic kidney disease, or unspecified chronic kidney disease; N18.30 Chronic kidney disease, stage 3 unspecified; E11.42 Type 2 diabetes mellitus with diabetic polyneuropathy; E11.22 Type 2 diabetes mellitus with diabetic chronic kidney disease; Z79.899 Other long term (current) drug therapy
CPT/HCPCS: 36415; 74176; 80048; 80053; 81001; 82248; 82947; 83690; 85025; 85027; 87040; 87086; 87088; 87186; 99285; C1758; C1769; C2617; J0330; J0696; J0737; J1100; J1885; J2003; J2250; J2270; J2405; J2704; J3010; J7120; Q9967

== ENCOUNTER → 2024-05-11 07:04 | Outpatient (BNV) | payer OTHER, SELFPAY | PROVIDERS: Emergency Provider Emergency Medicine; PCP Internal Medicine; Visit Provider Radiology Diagnostic Radiology | DX: R10.31 Right lower quadrant pain (principal) | CPT/HCPCS: 74176 ==

== ENCOUNTER → 2024-05-11 11:41 | Outpatient (BNV) | payer OTHER, SELFPAY | PROVIDERS: Admitting Provider Student in an Organized Health Care Education/Training Program; Emergency Provider Emergency Medicine; PCP Internal Medicine; Visit Provider Student in an Organized Health Care Education/Training Program | DX: N39.0 Urinary tract infection, site not specified (principal); A41.9 Sepsis, unspecified organism; N13.30 Unspecified hydronephrosis | CPT/HCPCS: 99223; 99232; 99239 ==

== ENCOUNTER → 2024-05-11 11:41 | Outpatient (BNV) | payer OTHER, SELFPAY | PROVIDERS: Admitting Provider Student in an Organized Health Care Education/Training Program; Emergency Provider Emergency Medicine; PCP Internal Medicine; Visit Provider Urology | DX: N13.2 Hydronephrosis with renal and ureteral calculous obstruction (principal); N39.0 Urinary tract infection, site not specified | CPT/HCPCS: 52332; 74420; 99222 ==

== ENCOUNTER 2024-05-17 08:16 | Outpatient (AMB) | payer OTHER, SELFPAY ==
--- NOTE | 2024-05-17 08:18 | A.OFFVIS_ITS ---
Vital Signs 3 05/17/24 08:19 Height 5 ft 1 in Weight 165 lb 5.547 oz BMI 31.2 BP 142/84 H Blood Pressure Location Rt brachial Position Sitting Pulse 76 Pulse Source Pulse Oximeter Intake Visit Reasons: Multinodular goiter Intake Note: Patient presents today to re-establish treatment for Multinodular Goiter: L Talent Director Required: Yes Talent Director Language: Chief Cardiopulmonary Technologist Services: Talent Director Offered & Declined Talent Director Name: JAN Encarnacion/GAIL KO Information Interpreted: non-clinical & clinical Accompanied by: Significant Other Allergies latex [LATEX] Allergy (Mild, Verified 05/11/24 06:34) RASH metformin Adverse Reaction (Verified 05/11/24 06:34) Unknown Medication List - Last Reconciled 05/17/24 by Chetna Izaguirre MD amlodipine 10 mg PO DAILY blood sugar diagnostic (Zidoff eCommerceTouch Ultra Test strips) As directed 3 times a day blood sugar diagnostic As directed blood-glucose meter (commercetoolsuch Ultra2 Meter) As directed cefuroxime axetil 500 mg PO BID docusate sodium 100 mg PO BID flash glucose sensor (FreeStyle Jame 2 Sensor kit) USE DIRECTED TO TEST BLOOD SUGAR. CHANGE EVERY 10 DAYS fluoxetine 40 mg PO DAILY fluticasone propionate 50 mcg/actuation 1 spray intranasal DAILY PRN FreeStyle Jame 2 [place] (flash glucose scanning reader) As directed NS lancets As directed lisinopril 40 mg PO DAILY metoprolol succinate ER 50 mg PO DAILY pen needle, diabetic (Comfort EZ Pen [place]) As directed injects once a day sennosides (senna) 8.6 mg PO DAILY tirzepatide (Mounjaro) 2.5 mg subcut MO trazodone 50 - 150 mg PO BEDTIME PRN HPI Comments Details: 63-year-old female here today for follow up of multinodular goiter. Here today with . Seen with the help of engine generator assembler in person. She also follows in our clinic for type [address] John Chavez. This was not addressed today. Last Visit for DM 04/21/2024. Patient has a history of thyroid nodules at least dating back to 2019. She had fine-needle aspiration on 05/06/2019. Right mid pole nodule was a simple cyst, no follicular cells. Left mid pole nodule was consistent with a benign follicular nodule Hume category 2. Ultrasound from 05/09/2020 showed multiple bilateral thyroid nodules, with a dominant 1.3 cm right mid lobe nodule that was mixed cystic solid with mostly a cystic component. Left superior 2.2 cm hypoechoic nodule along with the other smaller nodules on the left side. FNA 08/10/2020, of the left superior 2.2 cm hypoechoic nodule with benign cytology Hume category 2. Looks like patient had intermittent difficulty swallowing, underwent GI series upper in March 2021 which did not really show any defect. In 2020 and 2021, patient was noted to have low TSH levels around 0.14 and 0.16 with normal free T4 consistent with subclinical hyperthyroidism. TSI 09/18/2021 were undetectable. Thyroid uptake and scan from 07/26/2021, showed normal radioiodine uptake at 4 and 24 hours. It did show some degree of increased activity in the right lower lateral pole, however this was not correlating with any of the nodules visualized. Subsequently patient has TSH normalized. Most recent thyroid labs 04/14/2024 showed normal TSH of 0.47. Most recent thyroid ultrasound 02/16/2024, I reviewed the images myself showed a dominant right midpole 1.3 cm nodule which is mixed cystic solid, isoechoic, irregular, TR 4 category. This meets criteria for follow up. I am not sure if this was the nodule that was biopsied in 2019 which came back as nondiagnostic. There was also a 1 cm right superior cyst. This is not reported in the ultrasound report. Other subcentimeter right lobe nodules noted. Left mid lobe dominant 1 cm nodule which is reported as new, is a spongiform nodule. Another 0.8 cm solid, isoechoic left superior pole nodule. This does not need follow up, TR 3 category. This might have been the nodule that was biopsied when it was measuring 2.2 cm on the ultrasound in 2020 with benign cytology. However this is hard to compare on previous images. she currently complains of intermittent difficulty swallowing. Does report pressure sensation in neck. But able to finish all meals. No voice changes. Complains of cold intolerance . Reports constipation no diarrhea . Dry skin and hair loss. Weight is stable. No palpitations. No tremors. Patient denies any history of childhood neck radiation. Denies having ever used lithium, amiodarone. She does use hair skin supplements, likley have biotin. Patient denies any family history of thyroid cancer or thyroid disease. History of bariatric surgery 2021 Hystrectomy and B/L salpigooophorectomy at age 36 for suspicion of ovarian cancer?? she is unclear about this history , we dont have records this was in [place]. Used to be on premarin for sometime but then stopped at age 39 Physical exam General: sitting comfortably in no acute distress HEENT: normocephalic/atraumatic, EOM intact, moist oral mucosa Neck: supple, symmetrical, no thyromegaly , no dorsocervical or supraclavicular fat pads Cardiac: normal heart sounds Pulm: normal breath sounds B/L, no added breath sounds Abd: not distended, no tenderness Extremities: no edema, no signs of myxedema, no tremors Neuro: AAO x3, Speech: normal, no facial droop, moving all 4 extremities Laboratory Tests 03/05/19 01/28/20 08/23/20 13:45 10:16 08:20 Free T4 0.92 0.95 TSH 0.30 L 06/19/21 08/10/21 09/18/21 16:18 08:43 10:50 Free T4 0.87 0.88 0.88 TSH 0.10 L 0.16 L 0.14 L 03/18/22 03/18/22 03/12/23 09:29 09:29 07:22 Free T4 TSH 0.41 0.44 0.47 10/21/23 01/27/24 04/14/24 11:17 10:22 10:59 Free T4 TSH 0.41 0.35 0.47 US THYROID 02/16/24 CLINICAL INFORMATION: History of thyroid nodules. COMPARISON: Ultrasound-guided thyroid biopsy 08/10/2020. Thyroid ultrasound 05/09/2020 and 03/16/2019. TECHNIQUE: Linear transducer grayscale and color Doppler examination with attention to the region of the thyroid. FINDINGS: SIZE: Measurements of the thyroid lobes and nodules are given in sagittal, anteroposterior and transverse dimensions respectively. Right Thyroid Lobe: 6.1 x 1.8 x 2.3 cm, volume 13.4 mL. Previously 6.1 x 2.1 x 2.3 cm, volume 15.4 mL. Parenchyma: The gland echotexture is heterogeneous. Thyroid vascularity is normal. Left Thyroid Lobe: 5.9 x 1.7 x 2.4 cm, volume 12.5 mL. Previously 6.0 x 2.1 x 2.8 cm, volume 17.9 mL. Parenchyma: The gland echotexture is heterogeneous. Thyroid vascularity is normal. Isthmus: 0.4 cm in maximum AP dimension. Previously 0.4 cm. Estimated total number of nodules greater than or equal to 1 cm: 2. Guard Lieutenant nodules are described as follows: 1. Location: Right mid pole. Size: 1.1 x 0.6 x 1.3 cm, volume 0.4 mL. Previously: 1.3 x 0.7 x 1.3 cm, volume 0.6 mL. Nodule characteristics: Composition: Solid/almost completely solid (2). Echogenicity: Isoechoic (1). Shape: Not taller than wide (0). Margins: Irregular (2). Echogenic Foci: None (0). ACR TI-RADS total points: 5 Previous: Not documented ACR TI-RADS category: 4 Previous: Not documented Significant change in size (>/= 20% in 2 dimensions and minimal increase of 2 mm or 50% or greater increase in volume): No Change in features: No Change in ACR TI-RADS risk category: Not applicable 2. Location: Right mid pole. Size: 0.5 x 0.4 x 0.4 cm, volume 0.04 mL. Previously: Not documented, new. Nodule characteristics: Composition: Solid (2). Echogenicity: Isoechoic (1). Shape: Not taller than wide (0). Margins: Smooth (0). Echogenic Foci: Peripheral calcifications (2). ACR TI-RADS total points: 5 ACR TI-RADS category: 4 3. Location: Right mid pole. Size: 0.5 x 0.5 x 0.6 cm, volume 0.08 mL. Previously: 0.7 x 0.6 x 0.6 cm, volume 0.1 mL. Nodule characteristics: Composition: Solid/almost completely solid (2). Echogenicity: Isoechoic (1). Shape: Not taller than wide (0). Margins: Irregular (2). Echogenic Foci: None (0). ACR TI-RADS total points: 5 Previous: Not documented ACR TI-RADS category: 4 Previous: Not documented Significant change in size (>/= 20% in 2 dimensions and minimal increase of 2 mm or 50% or greater increase in volume): No Change in features: No Change in ACR TI-RADS risk category: Not applicable 4. Location: Left mid pole. Size: 1.1 x 0.5 x 1.3 cm, volume 0.4 mL. Previously: Not documented, new. Nodule characteristics: Composition: Spongiform (0). ACR TI-RADS total points: 0 ACR TI-RADS category: 1 5. Location: Left mid pole. Size: 0.2 x 0.2 x 0.3 cm, volume 0.005 mL. Previously: Not documented, new. Nodule characteristics: Composition: Solid (2). Echogenicity: Hyperechoic (1). Shape: Not taller than wide (0). Margins: Smooth (0). Echogenic Foci: Punctate echogenic foci (3). ACR TI-RADS total points: 6 ACR TI-RADS category: 4 NODES: No lymphadenopathy is seen in the tissue surrounding the thyroid gland. US/US thyroid IMPRESSION: Multinodular goiter. Only the 1.3 cm right mid nodule warrants follow-up in one year. None of the nodules meet criteria for biopsy. THYROID UPTAKE AND SCAN 07/26/21 CLINICAL INFORMATION: Nontoxic multinodular goiter. COMPARISON: No previous radionuclide thyroid scan is available for comparison. Thyroid ultrasound dated 05/09/2020 is available for comparison. TECHNIQUE: Following the oral administration of 271 microcuries of I-123 sodium iodide, thyroid uptake was performed and expressed as a percentage of the administrated dose. Gamma scintillation camera images of the thyroid in the anterior and right and left anterior oblique views were obtained using a pinhole collimator following the administration of 10 mCi Tc-99m pertechnetate. FINDINGS: The uptake is 2.8% at 4 hours and 8.8% at 24 hours (Normal radioiodine uptake at 24 hours is 10% to 30%). The radioiodine uptake is low. The radiopertechnetate thyroid scintigram shows the thyroid gland to be mildly enlarged, approximately 1 1/2 times normal in size. There is heterogeneous distribution of activity within the gland. There is a focus of moderately increased activity present laterally in the lower pole of the right lobe. There is some additional heterogeneity bilaterally but no additional discrete focal abnormalities are present. A single anterior radioiodine image obtained at the time of the 24-hour uptake measurement is similar to the radio pertechnetate image, but does not delineate detail within the gland as well. The thyroid ultrasound study dated 05/09/2020 showed multiple nodules bilaterally most of which are subcentimeter in size and are not visualized on this radionuclide scan. A focus of increased activity in the lower pole of the right lobe does not appear to definitely correspond to any of the nodules visualized on the ultrasound study. It is in the region of the lower pole nodule visualized on the ultrasound, but that nodule measured only 0.7 x 0.6 x 0.6 cm, and in less that nodule enlarged since the 2020 study, it was too small to likely be resolved on these radionuclide images. NM/NM thyroid w uptake IMPRESSION: Mildly enlarged thyroid gland with a single functioning (hot) nodule visualized laterally in the lower pole of the right lobe. Double additional subcentimeter nodules visualized on the prior 2020 thyroid ultrasound study are not visualized on this radionuclide scan, but are likely below the resolution of this radionuclide technique. The radioiodine uptake is mildly depressed. EXAMINATION: XR GI SERIES 03/09/21 CLINICAL INFORMATION: Obesity COMPARISON: None TECHNIQUE: Fluoroscopic assessment of the upper GI tract was performed in various upright and supine/prone obliquities utilizing thin and thick high density barium contrast material and effervescent granules. FINDINGS: Normal oral bolus control and transfer. Normal posterior tilt of the epiglottis. The esophagus was normal in course, caliber, and contour. There was normal distensibility with no fixed segment of narrowing. No focal mucosal abnormality was identified. No significant esophageal dysmotility was observed. Contrast passed freely across the gastroesophageal junction into the stomach. No significant hiatal hernia. There was normal distensibility of the stomach with no focal abnormality identified. There was prompt gastric emptying into the duodenum which demonstrated a normal appearance. Mild gastroesophageal reflux was observed. FLUOROSCOPY TIME: 1.5 minutes DOSE AREA PRODUCT: 22.325 Gy-cm2 (porter-centimeter squared) FL/FL upper GI series IMPRESSION: Mild gastroesophageal reflux noted. Otherwise normal upper GI examination. Date of Service: 05/09/20 THYROID Right Thyroid Lobe: 6.1 x 2.1 x 2.3 cm, volume 15.4 mL. Previously 6.2 x 2.4 x 2.4 cm, volume 18.7 mL. Parenchyma: The gland echotexture is homogeneous. Thyroid vascularity is normal. Left Thyroid Lobe: 6.0 x 2.1 x 2.8 cm, volume 17.9 mL. Previously 6.2 x 1.8 x 2.6 cm, volume 15.2 mL. Parenchyma: The gland echotexture is homogeneous. Thyroid vascularity is normal. Isthmus: 0.4 cm in maximum AP dimension. Previously 0.3 cm. RIGHT THYROID LOBE: There are 4 nodules seen. 1. Location: Upper Size: 0.6 x 0.3 x 0.5 cm. Previous: 0.6 x 0.3 x 0.5 cm. Nodule characteristics: Hypoechoic, smoothly marginated with no intranodular flow, likely simple cyst. 2. Location: Mid Size: 1.3 x 0.7 x 1.3 cm. Previous: 1.4 x 1.0 x 1.6 cm. Nodule characteristics: Hypoechoic, smoothly marginated with intranodular flow, likely complex cyst. 3. Location: Mid Size: 1.0 x 0.9 x 0.9 cm. Previous: 1.5 x 1.2 x 1.7 cm. Nodule characteristics: Hypoechoic, irregular margins with no intranodular flow. 4. Location: Lower Size: 0.7 x 0.6 x 0.6 cm. Previous: 0.6 x 0.5 x 0.6 cm. Nodule characteristics: Heterogenous, irregular margins and no intranodular flow. ISTHMUS: No nodules. LEFT THYROID LOBE: There are 4 nodules seen. 1. Location: Upper Size: 0.8 x 0.5 x 0.5 cm. Previous: 1.0 x 0.5 x 0.7 cm. Nodule characteristics: Heterogeneous, irregular margins with no calcification and no intranodular flow. 2. Location: Upper Size: 2.2 x 1.0 x 1.8 cm. Previous: 1.4 x 0.8 x 1.2 cm. Nodule characteristics: Hypoechoic irregular margins with intranodular flow. 3. Location: Upper Size: 1.0 x 0.5 x 0.8 cm. Previous: None Nodule characteristics: Hypoechoic, irregular shaped with macrocalcifications and intranodular flow. 4. Location: Mid Size: 0.4 x 0.3 x 0.4 cm. Previous: None Nodule characteristics: Hypoechoic, irregular shaped with no intranodular flow. NODES: No lymphadenopathy is seen in the tissue surrounding the thyroid gland. 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 Distal radius fracture, right HTN (hypertension) Chronic kidney disease Diabetes type 2, uncontrolled Surgical History History of surgery S/P fine needle aspiration S/P laparoscopic sleeve gastrectomy History of esophagogastroduodenoscopy (EGD) H/O colonoscopy Hx of biopsy History of partial hysterectomy History of total right knee replacement History of total left knee replacement (~2010) Hx of cholecystectomy History of section History of carpal tunnel release (~2017) Family History Father Hypertension Diabetes History of kidney cancer Mother Diabetes Hypertension Heart disease Brother Hypertension Diabetes Brother No problems noted. Son Hypertension Prediabetes Heart disease Daughter Prediabetes Social History Household Members: Spouse Housing: Apartment Are you a primary career technical education instructor to a significant other at home: No Do you presently have visiting nurse or other home services: No Alcohol intake: never Patient Tobacco Use Status: Never used Tobacco service: No Physical Exam Vital Signs: Last Vital Signs Pulse 76 05/17/24 08:19 BP 142/84 H 05/17/24 08:19 BMI result Body Mass Index 31.2 Assessment & Plan Assessment & Plan (1) Non-toxic multinodular goiter: Code(s): E04.2 - Nontoxic multinodular goiter Category: Medical Plan: 63-year-old female with no personal history of head or neck radiation, with no family history of thyroid cancer coming in today for follow up of nontoxic multinodular goiter. Patient has a history of thyroid nodules at least dating back to 2019. She had fine-needle aspiration on 05/06/2019. Right mid pole nodule was a simple cyst, no follicular cells. Left mid pole nodule was consistent with a benign follicular nodule Hume category 2. Ultrasound from 05/09/2020 showed multiple bilateral thyroid nodules, with a dominant 1.3 cm right mid lobe nodule that was mixed cystic solid with mostly a cystic component. Left superior 2.2 cm hypoechoic nodule along with the other smaller nodules on the left side. FNA 08/10/2020, of the left superior 2.2 cm hypoechoic nodule with benign cytology Hume category 2. Looks like patient had intermittent difficulty swallowing, underwent GI series upper in March 2021 which did not really show any defect. In 2020 and 2021, patient was noted to have low TSH levels around 0.14 and 0.16 with normal free T4 consistent with subclinical hyperthyroidism. TSI 09/18/2021 were undetectable. Thyroid uptake and scan from 07/26/2021, showed normal radioiodine uptake at 4 and 24 hours. It did show some degree of increased activity in the right lower lateral pole, however this was not correlating with any of the nodules visualized. Subsequently patient has TSH normalized. Most recent thyroid labs 04/14/2024 showed normal TSH of 0.47. Most recent thyroid ultrasound 02/16/2024, I reviewed the images myself showed a dominant right midpole 1.3 cm nodule which is mixed cystic solid, isoechoic, irregular, TR 4 category. This meets criteria for follow up. I am not sure if this was the nodule that was biopsied in 2019 which came back as nondiagnostic. There was also a 1 cm right superior cyst. This is not reported in the ultrasound report. Other subcentimeter right lobe nodules noted. Left mid lobe dominant 1 cm nodule which is reported as new, is a spongiform nodule. Another 0.8 cm solid, isoechoic left superior pole nodule. This does not need follow up, TR 3 category. This might have been the nodule that was biopsied when it was measuring 2.2 cm on the ultrasound in 2020 with benign cytology. However this is hard to compare on previous images. At this point I will plan to repeat an ultrasound in 1 year from the last 1 in February 2025 given right midpole 1.3 cm TR 4 nodule meets criteria for follow up. Currently no concerns for subclinical hyperthyroidism. Plan: -ordered thyroid ultrasound repeated repeated February 2025 -ordered TSH, free T4 to be done in February 2025 -follow up in March 2025 Plan I spent 30 minutes in reviewing the record, seeing the patient and documenting in the medical record. Orders: Orders 2 Free T4 (Free Thyroxine) 02/07/25 E04.2 - Nontoxic multinodular goiter Thyroid Stimulating Hormone 02/07/25 E04.2 - Nontoxic multinodular goiter US thyroid 02/07/25 E04.2 - Nontoxic multinodular goiter Patient Instructions: do thyroid ultrasound and blood work in February 2025 Follow up in March 2025 hacer shannen ecograf?a de tiroides y an?lisis de margoth en 2024 Seguimiento en 2024 Coding Level of Care Code Est Pt Level 4 (84259) Diagnoses Non-toxic multinodular goiter E04.2 Time Spent (min) 30
[2024-05-17 08:19] VITALS: BP 142/84; PULSE 76; BMI 31.2
--- OUTSIDE RECORDS SUMMARY | 2024-05-17 08:25 | XMS_ITS ---
Author Organization [facility] Address [address] [place] [address] Care Team Providers Care Food Cart Attendant Name Role Phone BUHMIKA BUSTOS Unavailable [phone] REASON FOR VISIT balance Encounters Encounter Location Date Provider Diagnosis [facility] [address] [facility] [address] [place] [address] 02/25/2024 BHUMIKA BUSTOS PLAN OF TREATMENT No Information Progress Notes * Coleen BERMANsDOB: [birth year] (63 yo F)Acc No.[id number]:02/25/2024 Patient:??Rosie BERMAN :1960?Age:63 Y?Sex:Fe male Address:[address] [place] [id number] * true * Date:??
--- OUTSIDE RECORDS SUMMARY | 2024-05-17 08:25 | XMS_ITS ---
Author Organization 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
--- OUTSIDE RECORDS SUMMARY | 2024-05-17 08:25 | XMS_ITS ---
Author Organization [facility] Address [address] [place] [address] Care Team Providers Care Silk Printer Name Role Phone BHUMIKA BUSTOS Unavailable [phone] MEDICATIONS Medication SIG (Take, Route, Fr equency, Duration) Notes Start Date End Date Status Mounjaro 5 MG/0.5ML 5mg Subcutaneous wee kly for 30 days Active Encounters Encounter Location Date Provider Diagnosis [place] [id number] [address] 11/28/2023 BHUMIKA VENTURADEVINeymar Other obesity due to excess calories E66.09 ; BMI 30.0-30.9,adult Z68.30 ; Type 2 diabetes mellitus without complications E11.9 ; penitentiary (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 insulin Z79.4 ; History [...] track activity level. Consider using apps like [employer], [employer], lose it, stick as needed for self-monitoring and weight management. Consider group exercises. Consider hiring a personal injury legal assistant. Regular exercise is shook to sustainable health [...] counseling and psychiatry and Dr Salamanca at [facility]. We would like to cover regular topics [...] software and direct typing Please excuse inadvertent black oxide operator or typing errors, or uncorrected word substitutions Although every attempt has been made by the provider to proofread this document, occasional misspellings and typographical errors may still be present Due to the previous pandemic, and the use of personal protective equipment (PPE) This may decrease voice recognition accuracy Inadvertent black oxide operator errors may occur 11/28/2023 BMI 30.0-30.9,adult [...] track activity level. Consider using apps like [facility], myfitnesspal, lose it, stick as needed for self-monitoring and weight management. Consider group exercises. Consider hiring a personal injury legal assistant. Regular exercise is shook to sustainable health [...] counseling and psychiatry and Dr Salamanca at [facility]. We would like to cover regular topics [...] software and direct typing Please excuse inadvertent black oxide operator or typing errors, or uncorrected word substitutions Although every attempt has been made by the provider to proofread this document, occasional misspellings and typographical errors may still be present Due to the previous pandemic, and the use of personal protective equipment (PPE) This may decrease voice recognition accuracy Inadvertent black oxide operator errors may occur 11/28/2023 Type 2 [...] track activity level. Consider using apps like [facility], [employer], lose it, stick as needed for self-monitoring and weight management. Consider group exercises. Consider hiring a personal injury legal assistant. Regular exercise is shook to sustainable health [...] counseling and psychiatry and Dr Salamanca at [facility]. 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 Consider using apps like [facility], [employer], lose it, stick as needed for self-monitoring and weight management. Consider group exercises. Consider hiring a personal injury legal assistant. Regular exercise is shook to sustainable health [...] counseling and psychiatry and Dr Salamanca at [facility]. We would like to cover regular topics [...] software and direct typing Please excuse inadvertent black oxide operator or typing errors, or uncorrected word substitutions Although every attempt has been made by the provider to proofread this document, occasional misspellings and typographical errors may still be present Due to the previous pandemic, and the use of personal protective equipment (PPE) This may decrease voice recognition accuracy Inadvertent black oxide operator errors may occur 11/28/2023 History of [...] track activity level. Consider using apps like [facility], [employer], lose it, stick as needed for self-monitoring and weight management. Consider group exercises. Consider hiring a personal injury legal assistant. Regular exercise is shook to sustainable health [...] counseling and psychiatry and Dr Salamanca at [facility]. We would like to cover regular topics [...] software and direct typing Please excuse inadvertent black oxide operator or typing errors, or uncorrected word substitutions Although every attempt has been made by the provider to proofread this document, occasional misspellings and typographical errors may still be present Due to the previous pandemic, and the use of personal protective equipment (PPE) This may decrease voice recognition accuracy Inadvertent black oxide operator errors may occur 11/28/2023 Hypothyroidism, unspecified [...] track activity level. Consider using apps like [facility], [employer]itnesspal, lose it, stick as needed for self-monitoring and weight management. Consider group exercises. Consider hiring a personal injury legal assistant. Regular exercise is shook to sustainable health [...] counseling and psychiatry and Dr Salamanca at [facility]. We would like to cover regular topics [...] software and direct typing Please excuse inadvertent black oxide operator or typing errors, or uncorrected word substitutions Although every attempt has been made by the provider to proofread this document, occasional misspellings and typographical errors may still be present Due to the previous pandemic, and the use of personal protective equipment (PPE) This may decrease voice recognition accuracy Inadvertent black oxide operator errors may occur PLAN OF TREATMENT Medication Medication Name Sig Start Date Stop Date Notes Mounjaro 5 MG/0.5ML 5mg Subcutaneous weekly for 30 days Progress Notes * Mayra BERMAN: 9[birth year] (63 yo F)Acc No.[id number]:11/28/2023 Patient:??Rosie BERMAN Provider:??BHUMIKA BUSTOS NP :1960?Age:63 Y?Sex:Fe male Date:11/28/2023 Address:[address] [place] [address] [id number] Subjective: * Chief Complaints: * ? 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 Had both shots ?RSV: Rx given for [...] 2 diabetes mellitus without complications - E11.9??4.??termite inspector (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 insulin - Z79.4??5.??History of [...] track activity level. Consider using apps like [facility], [employer], lose it, stick as needed for self-monitoring and weight management. Consider group exercises. Consider hiring a personal injury legal assistant. Regular exercise is shook to sustainable health [...] counseling and psychiatry and Dr Salamanca at [facility]. We would like to cover regular topics [...] software and direct typing Please excuse inadvertent black oxide operator or typing errors, or uncorrected word substitutions Although every attempt has been made by the provider to proofread this document, occasional misspellings and typographical errors may still be present Due to the previous pandemic, and the use of personal protective equipment (PPE) This may decrease voice recognition accuracy Inadvertent black oxide operator errors may occur. Plan: * Treatment: * Procedure Codes:??29572 NO S HOW OFFICE VISIT * Images: Billing Information: * Visit Code:?? * Procedure Codes:?? 95581 NO SHOW OFFICE VISIT. 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 Had both shots RSV: Rx given for [...]
--- OUTSIDE RECORDS SUMMARY | 2024-05-17 08:26 | XMS_ITS | Patient Health Record ---
Author Organization [facility] Address [address] [place] [address] Care Team Providers Care Special Needs Tutor Name Role Phone BHUMIKA BUSTOS Unavailable [phone] ALLERGIES Allergen (clinical drug ingredient) Drug/Non Drug [...] Note Original Orderi ng Provider: BHUMIKA BUSTOS NOVELTY DIPPER TOTAL T4 8.4 4.5-10.9 ug/dl REASON FOR [...] diabetes mellitus without complications (E11.9) Active confirmed 284844741 Problem Other obesity due to excess calories (E66.09) Active confirmed 371901153 Problem oysterman (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 insulin (Z79.4) Active confirmed 745583191 Problem Hypothyroidism, unspecified type (E03.9) Active confirmed 47647534 Problem Body mass index [BMI] 32.0-32.9, adult (Z68.32) Active confirmed 290021226 Problem BMI 31.0-31.9,adult (Z68.31) Active confirmed 959550810 Problem BMI 30.0-30.9,adult (Z68.30) Active confirmed 019598245 VITAL SIGNS Heart Rate 76 /min 10/03/2023 Oximetry 95 % 10/03/2023 Blood pressure diastolic 84 mm Hg 10/03/2023 Height 61 in 10/03/2023 Blood pressure systolic 120 mm Hg 10/03/2023 Weight 161 lbs 10/03/2023 BMI 30.42 kg/m2 10/03/2023 Encounters Encounter Location Date Provider Diagnosis [place] [address] 08/13/2023 [place] [address] 11/28/2023 BHUMIKA BUSTOS Other obesity due to excess calories E66.09 ; BMI 30.0-30.9,adult Z68.30 ; Type 2 diabetes mellitus without complications E11.9 ; intermediate (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 insulin Z79.4 ; History of gastric surgery Z98.890 and Hypothyroidism, unspecified type E03.9 [place] [address] 07/04/2023 BHUMIKA VENTURACRYSTAL Other obesity due to excess calories E66.09 ; Type 2 diabetes mellitus without complications E11.9 ; intermediate (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 insulin Z79.4 ; History of gastric surgery Z98.890 and BMI 31.0-31.9,adult Z68.31 [place] [address] [address] 10/03/2023 BHUMIKA AKASH Other obesity due to excess calories E66.09 ; BMI 30.0-30.9,adult Z68.30 ; Type 2 diabetes mellitus without complications E11.9 ; intermediate (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 insulin Z79.4 ; History of gastric surgery Z98.890 and Hypothyroidism, unspecified type E03.[address] [facility] [address] [place] [address] 08/29/2023 BHUMIKA BUSTOS [facility] [address] [place] [address] 12/04/2023 BHUMIKA BUSTOS [facility] [address] [place] [address] 02/25/2024 BHUMIKA BUSTOS ASSESSMENTS Encounter Date Diagnosis [...] minimum of 6 months The most recent [place] [employer] endocrinologists and [place] [employer] guidelines recommend patients who [...] track activity level. Consider using apps like Shipwire, myfitITM Solutionspal, lose it, stick as needed for self-monitoring and weight management. Consider group exercises. Consider hiring a personal caregiver. Regular exercise is shook to sustainable health [...] counseling and psychiatry and Dr Salamanca at [facility]. We would like to cover regular topics [...] software and direct typing Please excuse inadvertent senior business architect or typing errors, or uncorrected word substitutions Although every attempt has been made by the provider to proofread this document, occasional misspellings and typographical errors may still be present Due to the previous pandemic, and the use of personal protective equipment (PPE) This may decrease voice recognition accuracy Inadvertent senior business architect errors may occur 07/04/2023 Other obesity due [...] minimum of 6 months The most recent [place] [employer] endocrinologists and [place] [employer] guidelines recommend patients who [...] track activity level. Consider using apps like Shipwire, [employer], lose it, stick as needed for self-monitoring and weight management. Consider group exercises. Consider hiring a personal caregiver. Regular exercise is shook to sustainable health [...] counseling and psychiatry and Dr Salamanca at [facility]. We would like to cover regular topics [...] software and direct typing Please excuse inadvertent senior business architect or typing errors, or uncorrected word substitutions Although every attempt has been made by the provider to proofread this document, occasional misspellings and typographical errors may still be present Due to the previous pandemic, and the use of personal protective equipment (PPE) This may decrease voice recognition accuracy Inadvertent senior business architect errors may occur 10/03/2023 Other obesity due [...] minimum of 6 months The most recent [place] [employer] clinical endocrinologists and [place] [employer] guidelines recommend patients who [...] track activity level. Consider using apps like [employer], [employer], lose it, stick as needed for self-monitoring and weight management. Consider group exercises. Consider hiring a personal caregiver. Regular exercise is shook to sustainable health [...] about local counseling and psychiatry and Dr Salaamnca at [facility]. We would like to cover regular topics [...] software and direct typing Please excuse inadvertent senior business architect or typing errors, or uncorrected word substitutions Although every attempt has been made by the provider to proofread this document, occasional misspellings and typographical errors may still be present Due to the previous pandemic, and the use of personal protective equipment (PPE) This may decrease voice recognition accuracy Inadvertent senior business architect errors may occur 10/03/2023 BMI 30.0-30.9,adult (ICD-10 [...] minimum of 6 months The most recent [place] [employer] endocrinologists and [place] [employer] guidelines recommend patients who [...] track activity level. Consider using apps like Shipwire, myfitnesspal, lose it, stick as needed for self-monitoring and weight management. Consider group exercises. Consider hiring a personal caregiver. Regular exercise is shook to sustainable health [...] counseling and psychiatry and Dr Salamanca at [facility]. We would like to cover regular topics [...] software and direct typing Please excuse inadvertent senior business architect or typing errors, or uncorrected word substitutions Although every attempt has been made by the provider to proofread this document, occasional misspellings and typographical errors may still be present Due to the previous pandemic, and the use of personal protective equipment (PPE) This may decrease voice recognition accuracy Inadvertent senior business architect errors may occur 11/28/2023 Other obesity due [...] minimum of 6 months The most recent [place] [employer] clinical endocrinologists and [place] [employer] end[employer]in[employer] guidelines recommend patients who [...] track activity level. Consider using apps like Shipwire, Healthcent[employer], lose it, stick as needed for self-monitoring and weight management. Consider group exercises. Consider hiring a personal caregiver. Regular exercise is shook to sustainable health [...] counseling and psychiatry and Dr Salamanca at [facility]. We would like to cover regular topics [...] software and direct typing Please excuse inadvertent senior business architect or typing errors, or uncorrected word substitutions Although every attempt has been made by the provider to proofread this document, occasional misspellings and typographical errors may still be present Due to the previous pandemic, and the use of personal protective equipment (PPE) This may decrease voice recognition accuracy Inadvertent senior business architect errors may occur 11/28/2023 BMI 30.0-30.9,adult (ICD-10 [...] minimum of 6 months The most recent [place] [employer] clinical endocrinologists and [place] [employer]in[employer] guidelines recommend patients who [...] track activity level. Consider using apps like Shipwire, Healthcent[employer], lose it, stick as needed for self-monitoring and weight management. Consider group exercises. Consider hiring a personal caregiver. Regular exercise is shook to sustainable health [...] counseling and psychiatry and Dr Salamanca at [facility]. We would like to cover regular topics [...] software and direct typing Please excuse inadvertent senior business architect or typing errors, or uncorrected word substitutions Although every attempt has been made by the provider to proofread this document, occasional misspellings and typographical errors may still be present Due to the previous pandemic, and the use of personal protective equipment (PPE) This may decrease voice recognition accuracy Inadvertent senior business architect errors may occur 10/03/2023 Type 2 diabetes [...] minimum of 6 months The most recent [place] [employer] clinical endocrinologists and [place] [employer]in[employer] guidelines recommend patients who [...] track activity level. Consider using apps like Shipwire, Healthcent[employer], lose it, stick as needed for self-monitoring and weight management. Consider group exercises. Consider hiring a personal caregiver. Regular exercise is shook to sustainable health [...] counseling and psychiatry and Dr Salamanca at [facility]. We would like to cover regular topics [...] software and direct typing Please excuse inadvertent senior business architect or typing errors, or uncorrected word substitutions Although every attempt has been made by the provider to proofread this document, occasional misspellings and typographical errors may still be present Due to the previous pandemic, and the use of personal protective equipment (PPE) This may decrease voice recognition accuracy Inadvertent senior business architect errors may occur 07/04/2023 intermediate (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 insulin (ICD-10 - Z79.4) [...] minimum of 6 months The most recent [place] [employer] clinical endocrinologists and [place] [employer] end[employer]inology guidelines recommend patients who [...] track activity level. Consider using apps like Shipwire, my[employer]ITM [employer]pal, lose it, stick as needed for self-monitoring and weight management. Consider group exercises. Consider hiring a personal caregiver. Regular exercise is shook to sustainable health [...] counseling and psychiatry and Dr Salamanca at [facility]. We would like to cover regular topics [...] software and direct typing Please excuse inadvertent senior business architect or typing errors, or uncorrected word substitutions Although every attempt has been made by the provider to proofread this document, occasional misspellings and typographical errors may still be present Due to the previous pandemic, and the use of personal protective equipment (PPE) This may decrease voice recognition accuracy Inadvertent senior business architect errors may occur 07/04/2023 History of gastric [...] minimum of 6 months The most recent [place] [employer] clinical endocrinologists and [place] [employer]in[employer] guidelines recommend patients who [...] track activity level. Consider using apps like Shipwire, myfitnesspal, lose it, stick as needed for self-monitoring and weight management. Consider group exercises. Consider hiring a personal caregiver. Regular exercise is shook to sustainable health [...] counseling and psychiatry and Dr Salamanca at [facility]. We would like to cover regular topics [...] software and direct typing Please excuse inadvertent senior business architect or typing errors, or uncorrected word substitutions Although every attempt has been made by the provider to proofread this document, occasional misspellings and typographical errors may still be present Due to the previous pandemic, and the use of personal protective equipment (PPE) This may decrease voice recognition accuracy Inadvertent senior business architect errors may occur 10/03/2023 intermediate (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 insulin (ICD-10 - Z79.4) [...] minimum of 6 months The most recent [place] [employer] clinical endocrinologists and [place] [employer] end[employer]inology guidelines recommend patients who [...] track activity level. Consider using apps like Shipwire, Healthcentrixpal, lose it, stick as needed for self-monitoring and weight management. Consider group exercises. Consider hiring a personal caregiver. Regular exercise is shook to sustainable health [...] counseling and psychiatry and Dr Salamanca at [facility]. We would like to cover regular topics [...] software and direct typing Please excuse inadvertent senior business architect or typing errors, or uncorrected word substitutions Although every attempt has been made by the provider to proofread this document, occasional misspellings and typographical errors may still be present Due to the previous pandemic, and the use of personal protective equipment (PPE) This may decrease voice recognition accuracy Inadvertent senior business architect errors may occur 11/28/2023 Type 2 diabetes [...] minimum of 6 months The most recent [place] [employer] clinical endocrinologists and [place] [employer] end[employer]inology guidelines recommend patients who [...] track activity level. Consider using apps like Shipwire, TabbedOutfitITM Solutionspal, lose it, stick as needed for self-monitoring and weight management. Consider group exercises. Consider hiring a personal caregiver. Regular exercise is shook to sustainable health [...] counseling and psychiatry and Dr Salamanca at [facility]. We would like to cover regular topics [...] software and direct typing Please excuse inadvertent senior business architect or typing errors, or uncorrected word substitutions Although every attempt has been made by the provider to proofread this document, occasional misspellings and typographical errors may still be present Due to the previous pandemic, and the use of personal protective equipment (PPE) This may decrease voice recognition accuracy Inadvertent senior business architect errors may occur 10/03/2023 History of gastric [...] minimum of 6 months The most recent [place] [employer] clinical endocrinologists and [place] [employer] end[employer]inology guidelines recommend patients who [...] track activity level. Consider using apps like Shipwire, Healthcentrixpal, lose it, stick as needed for self-monitoring and weight management. Consider group exercises. Consider hiring a personal caregiver. Regular exercise is shook to sustainable health [...] counseling and psychiatry and Dr Salamanca at [facility]. We would like to cover regular topics [...] software and direct typing Please excuse inadvertent senior business architect or typing errors, or uncorrected word substitutions Although every attempt has been made by the provider to proofread this document, occasional misspellings and typographical errors may still be present Due to the previous pandemic, and the use of personal protective equipment (PPE) This may decrease voice recognition accuracy Inadvertent senior business architect errors may occur 07/04/2023 BMI 31.0-31.9,adult (ICD-10 [...] minimum of 6 months The most recent [place] [employer] clinical endocrinologists and [place] [employer] end[employer]inology guidelines recommend patients who [...] track activity level. Consider using apps like Shipwire, [employer]M [employer]pal, lose it, stick as needed for self-monitoring and weight management. Consider group exercises. Consider hiring a personal caregiver. Regular exercise is shook to sustainable health [...] counseling and psychiatry and Dr Salamanca at [facility]. We would like to cover regular topics [...] software and direct typing Please excuse inadvertent senior business architect or typing errors, or uncorrected word substitutions Although every attempt has been made by the provider to proofread this document, occasional misspellings and typographical errors may still be present Due to the previous pandemic, and the use of personal protective equipment (PPE) This may decrease voice recognition accuracy Inadvertent senior business architect errors may occur 11/28/2023 oysterman (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 insulin (ICD-10 - Z79.4) [...] minimum of 6 months The most recent [place] [employer] of clinical endocrinologists and [place] [employer] endocrinology guidelines recommend patients who [...] track activity level. Consider using apps like [employer]handsise, myfitnesspal, lose it, stick as needed for self-monitoring and weight management. Consider group exercises. Consider hiring a personal caregiver. Regular exercise is shook to sustainable health [...] counseling and psychiatry and Dr Salamanca at [facility]. We would like to cover regular topics [...] software and direct typing Please excuse inadvertent senior business architect or typing errors, or uncorrected word substitutions Although every attempt has been made by the provider to proofread this document, occasional misspellings and typographical errors may still be present Due to the previous pandemic, and the use of personal protective equipment (PPE) This may decrease voice recognition accuracy Inadvertent senior business architect errors may occur 11/28/2023 History of gastric [...] minimum of 6 months The most recent [place] [employer] clinical endocrinologists and [place] [employer] end[employer]inology guidelines recommend patients who [...] track activity level. Consider using apps like Shipwire, [employer], lose it, stick as needed for self-monitoring and weight management. Consider group exercises. Consider hiring a personal caregiver. Regular exercise is shook to sustainable health [...] counseling and psychiatry and Dr Salamanca at [facility]. We would like to cover regular topics [...] software and direct typing Please excuse inadvertent senior business architect or typing errors, or uncorrected word substitutions Although every attempt has been made by the provider to proofread this document, occasional misspellings and typographical errors may still be present Due to the previous pandemic, and the use of personal protective equipment (PPE) This may decrease voice recognition accuracy Inadvertent senior business architect errors may occur 11/28/2023 Hypothyroidism, unspecified type [...] minimum of 6 months The most recent [place] [employer] clinical endocrinologists and [place] [employer]inology guidelines recommend patients who [...] track activity level. Consider using apps like Shipwire, Healthcentrixpal, lose it, stick as needed for self-monitoring and weight management. Consider group exercises. Consider hiring a personal caregiver. Regular exercise is shook to sustainable health [...] counseling and psychiatry and Dr Salamanca at [facility]. We would like to cover regular topics [...] software and direct typing Please excuse inadvertent senior business architect or typing errors, or uncorrected word substitutions Although every attempt has been made by the provider to proofread this document, occasional misspellings and typographical errors may still be present Due to the previous pandemic, and the use of personal protective equipment (PPE) This may decrease voice recognition accuracy Inadvertent senior business architect errors may occur 10/03/2023 Hypothyroidism, unspecified type [...] minimum of 6 months The most recent [place] [employer] of clinical endocrinologists and [place] [employer]inology guidelines recommend patients who [...] track activity level. Consider using apps like Shipwire, Healthcentrixpal, lose it, stick as needed for self-monitoring and weight management. Consider group exercises. Consider hiring a personal caregiver. Regular exercise is shook to sustainable health [...] counseling and psychiatry and Dr Salamanca at [facility]. We would like to cover regular topics [...] software and direct typing Please excuse inadvertent senior business architect or typing errors, or uncorrected word substitutions Although every attempt has been made by the provider to proofread this document, occasional misspellings and typographical errors may still be present Due to the previous pandemic, and the use of personal protective equipment (PPE) This may decrease voice recognition accuracy Inadvertent senior business architect errors may occur PLAN OF TREATMENT Pending Test Test Name Order Date HEMOGLOBIN A1C 10/03/2023 T4, TOTAL 10/03/2023 TSH 10/03/2023 Insurance Providers Payer Name Payer Address Payer Phone Subscriber Number Group Number Insured Name Patient Relationship to Insured Coverage Start Date Coverage End Date [employer] or Options [address] [place] [id number] Rosie Grimm Self - patient is the insured 3 MEDICAL (GENERAL) HISTORY Medical History History ICD Code Hypothyroidism type II diabetes hydronephrosis Surgical History Surgery Date(Month/Year) hysterectomy left knee replacement right knee replacement hydroneprosis
== END 2024-05-17 08:59 | disposition home or self-care (01) ==
PROVIDERS: PCP Internal Medicine; Visit Provider Student in an Organized Health Care Education/Training Program
DX: E04.2 Nontoxic multinodular goiter (principal)
CPT/HCPCS: 99214

== ENCOUNTER → 2024-05-17 08:16 | Outpatient (BNVA) | payer OTHER, SELFPAY | PROVIDERS: PCP Internal Medicine; Visit Provider Student in an Organized Health Care Education/Training Program | DX: E04.2 Nontoxic multinodular goiter (principal) | CPT/HCPCS: 99212 ==

== ENCOUNTER 2024-05-26 10:23 | Outpatient (AMB) | payer OTHER, SELFPAY ==
--- NOTE | 2024-05-26 10:36 | A.OFFVIS_ITS ---
Intake Visit Reasons: Stent removal Intake Note: Patient is present for STENT REMOVAL Urology Medication:NONE Antibiotic Allergy:METFORMIN Blood Thinner:NONE Conventional Machinist Required: No Allergies latex [LATEX] Allergy (Mild, Verified 06/10/24 12:) RASH metformin Adverse Reaction (Verified 06/10/24 12:) Unknown HPI Comments Details: Rosie is a pleasant female. She is a patient of Dr. Castro. She is seen for the following urologic conditions - nephrolithiasis Recent admission to hospital for distal right ureteric stone in setting of urinary tract infection Here for stent removal Nephrolithiasis Recent admission to hospital CT scan - There is severe right hydroureteronephrosis with abrupt tapering of the distal ureter to normal caliber just above the UVJ. 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 Distal radius fracture, right HTN (hypertension) Chronic kidney disease Diabetes type 2, uncontrolled Surgical History History of surgery S/P fine needle aspiration S/P laparoscopic sleeve gastrectomy History of esophagogastroduodenoscopy (EGD) H/O colonoscopy Hx of biopsy History of partial hysterectomy History of total right knee replacement History of total left knee replacement (~2010) Hx of cholecystectomy History of section History of carpal tunnel release (~2017) Family History Father Hypertension Diabetes History of kidney cancer Mother Diabetes Hypertension Heart disease Brother Hypertension Diabetes Brother No problems noted. Son Hypertension Prediabetes Heart disease Daughter Prediabetes Social History Household Members: Spouse Housing: Apartment Are you a primary urgent care technician to a significant other at home: No Do you presently have visiting nurse or other home services: No Alcohol intake: never Patient Tobacco Use Status: Never used Tobacco service: No Review of Systems Const Denies chills and Denies fever(s) Card Reports no additional complaints and Denies syncope Resp Denies cough GI Denies abdominal pain and Denies heartburn Reports as per HPI and Denies change in libido Neuro Denies syncope Psych Denies change in libido Endo Denies change in libido Physical Exam Const General: cooperative, healthy appearing, comfortable and no acute distress Orientation/consciousness: patient oriented x3 HEENT Face and sinus: Yes normal facial exam Mouth: moist mucous membranes Neck Neck: Yes normal visual inspection, Yes full ROM and Yes trachea midline Chest Chest palpation & inspection: normal inspection of the chest Resp Effort & Inspection: normal respiratory effort, able to speak in complete sentences and no respiratory distress GI Inspection: Yes normal to inspection Back/Spine/Pelvis Cervical Spine: normal cervical lordosis Thoracic/Lumbar Spine: thoracic and lumbar spine normal to inspection Skin General skin exam: no rashes or lesions noted Neuro General: patient oriented x3, gait normal, tone normal and moves all extremities Extrem General: Yes normal to inspection and Yes capillary refill normal Office Procedures Cystoscopy Consent Discussed risk and benefit or proposed procedure with the patient. Information consent for procedure given to the patient. Discussed technical aspects, risks, benefits and alternatives in full. Addressed all of the patient's questions and concerns regarding the procedure. The patient demonstrated knowledge and understanding. They wish to proceed with this procedure. Preparation The patient was prepped in the usual manner. A peer tutor was present and in the room. Genitalia was prepped with betadine solution in a sterile manner. Lidocaine Jelly 2% was placed into the urethra and 16Fr flexible Olympus cystoscope was inserted into the meatus after adequate lubrication. Procedure A well lubricated 16 Bengali cystoscope was placed No abnormality noted of urethra during placement Indwelling stent seen within bladder emerging from right ureteric orifices The stent was grasped with a 3 prong grasper and removed without difficulty The patient tolerated the procedure well [id number] with stent removal DISPOSABLE SCOPE URO-G FLEXIBLE SCOPE Procedure code (CPT) selection complete Office Meds lidocaine HCl 2 % mucosal jelly in applicator Performing Provider: Renato Bloom MD Performing Location[facility] [place] [facility] Administered by: Karolina Wiley RN on 05/26/24 11:50 Dose Route Admin Location Dispensed Lot Number Expiration Date NDC Phytopathology Teacher 10 mL intra-urethral 10 mL nitrofurantoin monohydrate/macrocrystals 100 mg capsule Performing Provider: Renato Bloom MD Performing Location: [facility] [place] [facility] Administered by: Karolina Wiley RN on 05/26/24 11:50 Dose Route Admin Location Dispensed Lot Number Expiration Date NDC Phytopathology Teacher 100 mg PO 1 cap naproxen 500 mg tablet Performing Provider: Renato Bloom MD Performing Location: [facility] [place] [facility] Administered by: Karolina Wiley RN on 05/26/24 11:50 2 Dose Route Admin Location Dispensed Lot Number Expiration Date NDC Phytopathology Teacher 500 mg PO 1 tab Results AMB Urinalysis, Automated UA Leukoctes 15 Lori/uL Last Edit by BRITTON Rodas on 05/26/24 10:47 UA Nitrite Negative Last Edit by BRITTON Rodas on 05/26/24 10:47 UA Urobilinogen 0.2 mg/dL Last Edit by BRITTON Rodas on 05/26/24 10:4 7 UA Protein 100 mg/dL Last Edit by BRITTON Rodas on 05/26/24 10:47 UA pH 5.5 Last Edit by BRITTON Rodas on 05/26/24 10:47 UA Blood 200 Miguel/uL Last Edit by BRITTON Rodas on 05/26/24 10:47 UA Specific [place] 1.025 Last Edit by BRITTON Rodas on 05/26/24 10: 47 UA Ketone Negative Last Edit by BRITTON Rodas on 05/26/24 10:47 UA Bilirubin 0 mg/dL Last Edit by BRITTON Rodas on 05/26/24 10:47 UA Glucose 0 mg/dL Last Edit by BRITTON Rodas on 05/26/24 10:47 Results Reviewed Results Reviewed: Laboratory Last Values Urine pH (Auto) 5.5 05/26/24 10:47 Specific [place] (Auto) 1.025 05/26/24 10:47 Urine Protein (Auto) 100 mg/dL 01/22/25 10:47 Glucose (UA)(Auto) 0 mg/dL 05/26/24 10:47 Urine Ketones (Auto) Negative 05/26/24 10:47 Urine Blood (Auto) 200 Miguel/uL 05/26/24 10:47 Urine Nitrite (Auto) Negative 05/26/24 10:47 Urine Bilirubin (Auto) 0 mg/dL 05/26/24 10:47 Urine Urobilinogen (Auto) 0.2 mg/dL 05/26/24 10:47 Leukocyte Esterase (Auto) 15 Lori/uL 05/26/24 10:47 Assessment & Plan Assessment & Plan (1) Hydronephrosis of right kidney: Code(s): N13.30 - Unspecified hydronephrosis Category: Medical Plan Three-month follow-up renal ultrasound Orders: Orders AMB Cystoscopy 05/26/24 N13.30 - Unspecified hydronephrosis AMB Urinalysis Automated 05/26/24 Z13.9 - Encounter for screening, unspecified Patient Instructions: This note is constructed using voice recognition software. While every effort has been made to ensure accuracy punch box tender errors may have been included. Imaging studies, laboratory and physical exam results were discussed and reviewed in detail. No major barriers to patient understanding were identified. An opportunity to ask questions regarding the treatment plan was provided. All questions were answered. The patient expressed understanding and agreement with the above treatment plan. The patient is aware they should contact our office by phone for worsening of their current condition or the appearance of new urologic symptoms. Compliance is encouraged with any medications and followup testing that is ordered. It is a privilege to participate in the urologic care of your patient. If you have any questions or concerns regarding treatment for the above conditions, or other urologic issues, please do not hesitate to contact me. The office telephone contact is [phone]. Sincerely, Dr Renato Bloom MD, [facility] - Urology Compassionate Specialist Care for the Genitourinary System Coding Level of Care Code Est Pt Level 3 (98859) Diagnoses Hydronephrosis of right kidney N13.30 CPT Codes Cystoscopy - CPT: [id number] with stent removal ([id number])
--- OUTSIDE RECORDS SUMMARY | 2024-05-26 11:25 | XMS_ITS | Clinical Summary ---
Author Organization [employer] Address [address] [facility] [address] [place] [address] Care Team Providers Care Operator [employer] Name Role Phone Ginette Fortune MD Primary Care Provide r Allergies Active Allergy Reactions Criticality Noted Date Comments Latex Rash,Unknown Low 05/26/2019 Medications amLODIPine (Norvasc) 10 MG tabletIndications :Primary hypertension Take 1 tablet (10 mg) by mouth Once per day. 90 tablet 3 4 10/21/19 25 Active lisinopril 40 MG tabletIndications :Primary hypertension Take 1 tablet (40 mg) by mouth Once per day. 90 tablet 3 4 10/21/19 25 Active metoprolol succinate XL (Toprol-XL) 50 MG 24 hr tabletIndications :Primary hypertension Take 1 tablet (50 mg) by mouth Once per day. Do not crush or chew. 30 tablet 11 4 10/21/19 25 Active Diclofenac Sodium 1 % gelIndications:Ac brandyn pain of left knee To apply to the affected area 3 times a day 100 g 4 Active Continuous Glucose Sensor (FreeStyle Jame 2 Sensor) misc Apply 1 sensor every 14 days 2 each 4 Active hydroCHLOROthiazi de 12.5 MG tabletIndications :Resistant hypertension Take 1 tablet (12.5 mg) by mouth Once per day. 30 tablet 2 4 01/27/20 25 Active Blood Pressure Monitoring (Blood Pressure Cuff) miscIndications:P rimary hypertension 1 each Once daily. 1 each 4 Active Active Problems Problem Noted Date Diagnosed Date Family history of Alzheimer's disease 04/14/2024 Forgetfulness 04/14/2024 Precordial pain 01/27/2024 Palpitations 01/27/2024 Resistant hypertension 01/27/2024 Assessment & Plan (04/14/2024 12:37 PM EST): I advised: - Aerobic exercise to reduce BP. Initial goal of 30 min walk 3-5x/week. Increase as tolerated. - low-sodium diet (goal: <2g/day) and heart healthy diet such as DASH to reduce BP and prevent ASCVD. - Home BP monitoring 1-2 x day with goal of <140/90. - Seek immediate medical attention for chest pain, palpitations, SOB, syncope, or sudden changes in mental status. - Do not change or discontinue current prescriptions without first consulting health care provider Assessment & Plan (01/27/2024 12:45 PM EDT): I advise: - Aerobic exercise to reduce BP. Initial goal of 30 min walk 3-5x/week. Increase as tolerated. - low-sodium diet (goal: <2g/day) and heart healthy diet such as DASH to reduce BP and prevent ASCVD. - Home BP monitoring 1-2 x day with goal of <140/90. - Seek immediate medical attention for chest pain, palpitations, SOB, syncope, or sudden changes in mental status. - Do not change or discontinue current prescriptions without first consulting health care provider Colon cancer screening 01/27/2024 Encounter for screening mamm ogram for malignant neoplasm of breast 01/27/2024 Thyroid nodule 01/27/2024 Type 2 diabetes mellitus, [facility] long-term current use of insulin 10/21/2023 Assessment & Plan (04/14/2024 12:38 PM EST): Diabetes is: controlled - Lab Results Component Value Date HGBA1C 6.5 (A) 04/14/2024 HGBA1C 6.5 (A) 10/21/2023 - Lab Results Component Value Date CREATININE 1.10 01/27/2024 -Changes: none - Diabetic eye exam:up to date as per patient - Diabetic foot exam:up to date - Continue lifestyle modifications - Continue current medications - Follow up: with endocrinology as scheduled Assessment & Plan (01/27/2024 12:46 PM EDT): Diabetes is: controlled - Lab Results Component Value Date HGBA1C 6.5 (A) 10/21/2023 - Lab Results Component Value Date CREATININE 1.10 01/27/2024 -Changes: none - Diabetic eye exam:pending - Diabetic foot exam:pending - Continue lifestyle modifications - Continue current medications - Follow up: 3 months Assessment & Plan (10/23/2023 12:01 PM EDT): Patient is on monjouru prescribed by weight management Griffin Cuellar NP (located on [address] [place] [address] phone [phone]) Diabetes is: controlled - Lab Results Component Value Date HGBA1C 6.5 (A) 10/21/2023 -No results found for: GLUF , MICROALBUR , LDLCALC , CREATININE -Changes: none - Diabetic eye exam:up to date - Diabetic foot exam:pending - Continue lifestyle modifications - Continue current medications -Diabetic shoes will be prescribed today, feet assessment done, patient will benefit from diabetic shoes - Follow up: 3 months Primary hypertension 10/21/2023 Assessment & Plan (10/21/2023 12:08 PM EDT): Maintenance: BMP: ordered today Lipid Panel: ordered today ASCVD Risk: Calculate pending updated labs - Aerobic exercise to reduce BP. Initial goal of 30 min walk 3-5x/week. Increase as tolerated. - low-sodium diet (goal: <2g/day) and heart healthy diet such as DASH to reduce BP and prevent ASCVD. - Home BP monitoring 1-2 x day with goal of <140/90. - Seek immediate medical attention for chest pain, palpitations, SOB, syncope, or sudden changes in mental status. - Do not change or discontinue current prescriptions without first consulting health care provider Chronic pain of left knee 10/21/2023 Assessment & Plan (10/21/2023 12:08 PM EDT): Acetaminophen PRN Depression with anxiety 10/21/2023 Assessment & Plan (10/21/2023 10:56 AM EDT): Patient is being follow by therapist and psychiatrist Keiko Philippe located on [address] [place] [address] phone [phone] it is being prescribed for her trazodone, lorazepam, Prozac S/P bariatric surgery 10/21/2023 Acquired hypothyroidism 10/21/2023 Assessment & Plan (10/21/2023 12:09 PM EDT): TSH will be check Healthcare maintenance 10/21/2023 Varicose veins of bilateral lower extremities wi th pain 10/21/2023 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 10/21/2023 Assessment & Plan (10/21/2023 12:10 PM EDT): PT referral Encounters Date Type Department Care Team Description 05/14/2024 Patient Outreach [facility] [address] [place] [phone] Ginette Fortune MD Transition Of Care (Tcm) (HDF scheduled) 05/14/[address] [address] Ginette Fortune MD Hospital Follow-up 04/29/[address] [address] Ginette Fortune MD Referral 04/29/2024 Orders Only [facility] [address] [place] [address] [phone] Ginette Fortune MD Multinodular goiter (Primary Dx) 04/15/[address] [address] Mimi Sesay [place] Results 04/14/2024 10:15 AM EST Office Visit [address] [phone] Ginette Fortune MD Acquired hypothyroidism (Primary Dx); Type 2 diabetes mellitus with stage 3 chronic kidney disease, without long-term current use of insulin, unspecified whether stage 3a or 3b CKD (CMS/HCC); Resistant hypertension; Family history of Alzheimer's disease; Forgetfulness; Encounter for immunization 04/14/2024 Travel 03/01/2024 Orders Only [facility] External Provider, [facility] 02/24/2024 2:30 PM EDT Clinical Support [facility] [address] [place] [address] Leesa Valencia, SHERRY Resistant hypertension 02/24/2024 Travel from Last 3 Months Immunizations Name Administration Dates Next Due Influenza Injectable Quadriv alant Preservative Free IIV4 MDCK 02/05/2022 Influenza injectable quadriv alent preservative free 01/30/2023,01/24/2020 Influenza, IIV3, injectable 01/30/2023,1 ,01/24/2020,2015,02/04/2015 Influenza, seasonal, injecta ble, preservative free 01/27/2024,04/21/2019,01/09/2016,2014 Pneumococcal Conjugate PCV 20 01/27/2024 RSV Bivalent 07/04/2023 Tdap 04/14/2024 Varicella 10/04/2014 Zoster, Recombinant 11/02/2021,07/23/2021 Social History Tobacco Use Types Packs/Day Years Used Date Smoking Tobacco: Never Passive Smoke Exposure: Never Smokeless Tobacco: Never Tobacco Cessation:Counseling Given: Not Answered Alcohol Use Standard Drinks/Week Comments Not Currently 0 (1 standard drink = 0.6 oz pur e alcohol) Depression Answer Date Recorded Patient Health Questionnaire-9 Score 0 10/21/2023 Patient Health Questionnaire-9 Score 0 10/21/2023 Last PHQ-9: Questionnaire Data Not on file 0 10/21/2023 Housing Stability Answer Date Recorded What is your housing situation today? I have abby pina 10/09/[address] you li ve. Do you have problems with any of the following? None of the above 10/09/2023 Food Insecurity Answer Date Recorded Within the past 12 months, y ou worried that your food would run out before you got money to buy more: Never True 10/09/2023 Within the past 12 months,th e food you bought just didn't last and you didn't have enough money to get more: Never True 10/2023 Transportation Answer Date Recorded In the past 12 months, has l ack of transportation kept you from medical appts, meetings, work or from getting things needed for daily living? No 10/09/2023 Utilities Answer Date Recorded In the past 12 months, has t he electric, gas, oil or water company threatened to shut off services in your home? No 10/09/2023 Depression Answer Date Recorded Patient Health Questionnaire-2 Score 0 10/21/2023 Internet Access Answer Date Recorded Internet Access Q1 No 01/04/2024 Internet Access Q2 I do not want or need it 05/2023 Comments Unknown Sex and Gender Information Value Date Recorded Sex Assigned at Female 07/16/2023 3:21 PM EDT Legal Sex Female 3:20 PM EDT Gender Identity Female 07/16/2023 3:21 PM EDT Sexual Orientation Don't know 07/16/2023 3: 21 PM EDT Last Filed Vital Signs Vital Sign Reading Time Taken Comments Blood Pressure 142/88 04/14/2024 10:11 AM EST Pulse 78 04/14/2024 10:11 AM EST Temperature 35.2 ??C (95.4 ??F) 04/14/2024 10:[address] Respiratory Rate 18 04/14/2024 10:11 AM EST Oxygen Saturation 98% 04/14/2024 10:11 AM EST Inhaled Oxygen Concentration - - Weight 74.5 kg (164 lb 3.2 oz) 04/14/2024 10:11 AM EST Height 154.9 cm (5' 1 ) 04/14/2024 10:11 AM EST Body Mass Index 31.03 04/14/2024 10:11 AM EST Plan of Treatment Upcoming Encounters Date Type Department Care Team (Late st Contact Info) Description 06/03/2024 10:45 AM EST Office Visit [facility] [address] [place] [address] Fozia Cantu MD [address] [place] [address] Health Maintenance Due Date Last Done Comments CT Colonography 1961 Colonoscopy 1961 Colorectal Cancer Screening 1960 FIT DNA/Cologuard 1961 FIT 1961 FOBT 1960 HIV Screening 1960 Sigmoidoscopy 1960 Eye Exam 1971 Pap Smear 1982 HPV/Cotest 1991 COVID-19 Vaccine ( season) 2024 04/19/2021, 07/26/2020 Diabetes: Hemoglobin A1C 10/13/2024 04/14/2024, 10/03 Alcohol/Substance Use Screening 10/20/2024 10/21/2023 Depression Screening 10/20/2024 10/21/2023, 10/21/19 Diabetes: Foot Exam 10/20/2024 10/21/2023, SDOH Screening 10/20/2024 10/21/2023 Lipid Panel 01/26/2025 01/27/2024 Mammogram 03/09/2025 03/09/2024 Tobacco Screening 04/14/2025 04/14/2024 DTaP/Tdap/Td Vaccines (2 - Td or Tdap) 04/14/2034 04/14/2024 Zoster Vaccines Completed 11/02/2021, 07/23/2021 RSV Patients and Patients Aged 60 years or older Completed 07/04/2023 Hepatitis C Screening Completed 01/27/2024 Influenza Vaccine Completed 01/27/2024, , 01/30/2023, Additional history exists Pneumococcal Vaccine: Pediatrics (0 to 5 Years) and At-Risk Patients (6 to 64 Years) Completed 01/27/2024 Cervical Cancer Screening Discontinued HIB Vaccines Aged Out No longer eligi ble based on patient's age to complete this topic HPV Vaccines Aged Out No longer eligi ble based on patient's age to complete this topic Hepatitis A Vaccines Aged Out No long er eligible based on patient's age to complete this topic Hepatitis B Vaccines Aged Out No long er eligible based on patient's age to complete this topic IPV Vaccines Aged Out No longer eligi ble based on patient's age to complete this topic Meningococcal Vaccine Aged Out No pan delgado eligible based on patient's age to complete this topic RSV under 20 months Aged Out No longe r eligible based on patient's age to complete this topic Rotavirus Vaccines Aged Out No longer eligible based on patient's age to complete this topic Procedures Procedure Name Priority Date/Time Associated Diagnosis Comments FL GUIDANCE IN OR Routine 05/12/2024 5:[address] ABDOMEN PELVIS WO CONTRAST Routine 05/11/2024 7:36 AM EST TSH W/REFLEX TO FT4 Routine 04/14/2024 1 0:59 AM EST Acquired hypothyroidism POCT GLYCATED HEMOGLOBIN, TOTAL Routine 04/14/2024 10:13 AM EST Type 2 diabetes mellitus with stage 3 chronic kidney disease, without long-term current use of insulin, unspecified whether stage 3a or 3b CKD (CMS/HCC) POCT GLUCOSE Routine 04/14/2024 10:13 AM EST Type 2 diabetes mellitus with stage 3 chronic kidney disease, without long-term current use of insulin, unspecified whether stage 3a or 3b CKD (CMS/HCC) BI MAMMOGRAM SCREENING TOMOSYNTHESIS BILATERAL Routine 03/09/2024 1:20 PM EST Encounter for screening mammogram for malignant neoplasm of breast US VENOUS DUPLEX LE LT Routine 03/01/2024 1:25 PM EDT HEPATITIS C AB W/REFL TO HCV RNA, QN, PCR Routine 01/27/2024 10:22 AM EDT Healthcare maintenance LIPID PANEL, STANDARD Routine 01/27/2024 10:22 AM EDT Type 2 diabetes mellitus with stage 3 chronic kidney disease, without long-term current use of insulin, unspecified whether stage 3a or 3b CKD (CMS/HCC) from Last 3 Months or Most Recently Relevant to Health Maintenance Results * FL Guidance in OR (05/12/2024 5:00 PM EST) Anatomical Region Laterality Modality X-Ray Angiograph y 05/12/2024 5:00 PM EST Narrative 05/13/2024 10:40 AM EST ? [facility] [facility] ?[address] ?[place] [address] ? Fluoroscopy Report ? Signed ? Patient: Iverson,Rosie ?MR#: [id number] ? : 1960 ?Acct:[id number] ? Age/Sex: 63 / F ?ADM Date: 05/11/24 ? Loc: HO.S3 ?359-1 ? Attending Dr: Jayden Raymundo MD ? Ordering Physician: Renato Bloom MD ?? Date of Service: 05/12/24 ?? Procedure(s): FL guidance in OR ?? Accession Number(s): [id number] ? cc: Ginette Fortune MD; Renato Bloom MD ? EXAMINATION: ?? FLUOROSCOPY GUIDANCE FOR NEEDLE PLACEMENT ? CLINICAL INFORMATION: ?? right ??cysto special ? COMPARISON: ?? None available. ? TECHNIQUE: ?? Intraoperative fluoroscopy and images obtained. ? FINDINGS: ?? Fluoroscopy was provided to the referring physician in the OR. No ?? radiologist was present. Several images were obtained and reveals ?? distended ureter with contrast. No intraluminal filling defects seen. ?? The subsequent and last images reveal a right internal ureteral stent ?? in place. ? FLUOROSCOPY TIME: ?? 23.0 seconds ? DOSE AREA PRODUCT: ?? 5.83 uGy-m2 (microgray-meter squared) ? FL/FL guidance in OR ?? IMPRESSION: ?? Fluoroscopy guidance was provided to the referring physician the OR ?? with no radiologist present during exam.. ? Electronically signed by: ??Sergio Burgos MD ??05/13/2024 10:36 AM EST RP ? Dictated By: ?Sergio Burgos MD ? Signed By: ?<Electronically signed by Sergio Burgos MD in OV> ?05/13/24 1036 ? DD/ 1700 ? TD/TT: 05/12/24 1730 ? [employer] Commercial Salesperson: MSM ? Procedure Note Melinda Radford - 05/13/[address] [address] Fluoroscopy Report Signed Patient: Jovani Iverson#: [id number] : 2Acct:[id number] Age/Sex: 63 / FADM Date: 05/11/24 Loc: S3 359-[address]: Jayden Raymundo MD Ordering Physician: Renato Bloom MD Date of Service: 05/12/24 Procedure(s): FL guidance in OR Accession Number(s): [id number] cc: Ginette Fortune MD; Renato Bloom MD EXAMINATION: FLUOROSCOPY GUIDANCE FOR NEEDLE PLACEMENT CLINICAL INFORMATION: right cysto special COMPARISON: None available. TECHNIQUE: Intraoperative fluoroscopy and images obtained. FINDINGS: Fluoroscopy was provided to the referring physician in the OR. No radiologist was present. Several images were obtained and reveals distended ureter with contrast. No intraluminal filling defects seen. The subsequent and last images reveal a right internal ureteral stent in place. FLUOROSCOPY TIME: 23.0 seconds DOSE AREA PRODUCT: 5.83 uGy-m2 (microgray-meter squared) FL/FL guidance in OR IMPRESSION: Fluoroscopy guidance was provided to the referring physician the OR with no radiologist present during exam.. Electronically signed by: Sergio Burgos MD 05/13/2024 10:36 AM EST RP Dictated By: Sergio Burgos MD Signed By: <Electronically signed by Sergio Burgos MD in OV> 05/13/24 1036 DD/ 1700 TD/TT: 05/12/24 1730 [employer] Salesperson: [facility] External Provider IMG IR PROCEDURES Final Result * CT Abdomen Pelvis w/o Contrast (05/11/2024 7:36 AM EST) Anatomical Region Laterality Modality Body, Pelvis, Abdomen Computed T omography 05/11/2024 7:36 AM EST Narrative 05/11/2024 9:26 AM EST ? [facility] ?[address] ?[place] [address] ? CT Scan Report ? Signed ? Patient: Iverson,Rosie ?MR#: [id number] ? : 1960 ?Acct:[id number] ? Age/Sex: 63 / F ?ADM Date: 01/07/25 ? Loc: HO.ED ? Attending Dr: ? Ordering Physician: Nancy Lawrence ?? Date of Service: 05/11/24 ?? Procedure(s): CT abdomen pelvis wo IV con ?? Accession Number(s): [id number] ? cc: Ginette Fortune MD; Nancy Lawrence ? Report Number: ?? [id number]: Total DLP = ??437.00 mGy-cm ?? EXAMINATION: ??CT ABDOMEN PELVIS WITHOUT IV CONTRAST ? HISTORY: right flank pain ? COMPARISON: Correlation is made with an abdominal ultrasound dated ?? 04/03/2021 ? TECHNIQUE: CT scan of the abdomen and pelvis was performed without ?? contrast using standard departmental protocol. ?? Coronal and sagittal ?? reformatted images were generated and reviewed. ??Oral contrast material ?? was not administered per department protocol. ? This CT exam was performed with one or more of the following dose ?? reduction techniques: automated exposure control, adjustment of the mA ?? and/or kV according to patient size, use of iterative reconstruction ?? technique. ? DLP: 437 mGy-cm ? FINDINGS: ? LOWER CHEST: The visualized lung bases are clear. There is no pleural ?? effusion. ? CARDIOVASCULATURE: The heart is normal in size. ??There is no ?? pericardial effusion. ? LIVER: ??The liver is normal in size and contour. ??The liver has an ?? unremarkable unenhanced appearance. ? GALLBLADDER / BILE DUCTS: ??The gallbladder is surgically absent. There ?? is no intra or extrahepatic biliary ductal dilatation. ? SPLEEN: The spleen is normal in size and has an unremarkable unenhanced ?? appearance. ? PANCREAS: The pancreas has an unremarkable unenhanced appearance. ? ADRENAL GLANDS: The right adrenal gland is unremarkable. There is a 1.7 ?? cm left adrenal nodule demonstrates a density in 18.7 HU, which is ?? indeterminate for adenoma. ? KIDNEYS/RETROPERITONEUM: There are multiple bilateral renal cysts ?? including a 5.7 cm cyst at the upper pole of the right kidney, a 9.8 cm ?? cyst at the lower pole of the right kidney, a 7.3 cm cyst at the upper ?? pole of the left kidney, and a 4.6 cm cyst at the lower pole of the ?? left kidney. No renal calculi are identified. There is severe right ?? hydroureteronephrosis with abrupt tapering of the distal ureter to ?? normal caliber just above the UVJ. No obstructing calculus is seen. ?? There is no left hydroureteronephrosis. ? LYMPH NODES: ??There is a 2.0 cm left external iliac lymph node. ? VASCULATURE: ??The abdominal aorta is normal in caliber. ? MESENTERY/PERITONEUM: No free fluid. No masses. ??There is no free ?? intraperitoneal gas. ? STOMACH: ??The patient is status post gastric surgery. ? SMALL BOWEL: ?? The small bowel is normal in caliber. ? COLON: ??There is diverticulosis of the sigmoid colon, without evidence ?? of diverticulitis. ? APPENDIX: ??Normal. ? URINARY BLADDER/PELVIC ORGANS: The urinary bladder is collapsed, ?? limiting evaluation. ??The patient is status post hysterectomy. ? BONES / SOFT TISSUES: ??No suspicious bony or soft tissue abnormalities. ? CT/CT abdomen pelvis wo IV con ?? IMPRESSION: ?? 1. Severe right hydroureteronephrosis with abrupt tapering to normal ?? caliber just above the UVJ. No obstructing calculus is identified. ?? Neoplasm is not excluded, and cystoscopy with a retrograde study of the ?? ureter is recommended. ? 2. 1.7 cm indeterminate left adrenal nodule. In the absence of a known ?? primary malignancy, this likely represents an adenoma. If there is a ?? known primary malignancy, adrenal protocol CT is recommended. ? 3. 2.0 cm left external iliac lymph node. ? Electronically signed by: ??Jose Enrique Shannon MD ??05/11/2024 09:23 AM EST ?? RP ? Dictated By: ?Jose Enrique Shannon MD ? Signed By: ?<Electronically signed by Jose Enrique Shannon MD in OV> ?05/11/24922 ? DD/ 0736 ? TD/TT: 05/11/24 0848 ? [employer] Commercial Salesperson: ? Procedure Note Donotuseinterpreter, Image - 05/11/[address] [address] [address] Scan Report Signed Patient: Jovani Iverson#: [id number] : 1960cct:[id number] Age/Sex: 63 / FADM Date: 05/11/24 Loc: HO.ED Attending Dr: Ordering Physician: Nancy Lawrence Date of Service: 05/11/24 Procedure(s): CT abdomen pelvis wo IV con Accession Number(s): [id number] cc: Ginette Fortune MD; Nancy Lawrence Report Number: [id number]: Total DLP = 437.00 mGy-cm EXAMINATION: CT ABDOMEN PELVIS WITHOUT IV CONTRAST HISTORY: right flank pain COMPARISON: Correlation is made with an abdominal ultrasound dated 04/03/2021 TECHNIQUE: CT scan of the abdomen and pelvis was performed without contrast using standard departmental protocol. Coronal and sagittal reformatted images were generated and reviewed. Oral contrast material was not administered per department protocol. This CT exam was performed with one or more of the following dose reduction techniques: automated exposure control, adjustment of the mA and/or kV according to patient size, use of iterative reconstruction technique. DLP: 437 mGy-cm FINDINGS: LOWER CHEST: The visualized lung bases are clear. There is no pleural effusion. CARDIOVASCULATURE: The heart is normal in size. There is no pericardial effusion. LIVER: The liver is normal in size and contour. The liver has an unremarkable unenhanced appearance. GALLBLADDER / BILE DUCTS: The gallbladder is surgically absent. There is no intra or extrahepatic biliary ductal dilatation. SPLEEN: The spleen is normal in size and has an unremarkable unenhanced appearance. PANCREAS: The pancreas has an unremarkable unenhanced appearance. ADRENAL GLANDS: The right adrenal gland is unremarkable. There is a 1.7 cm left adrenal nodule demonstrates a density in 18.7 HU, which is indeterminate for adenoma. KIDNEYS/RETROPERITONEUM: There are multiple bilateral renal cysts including a 5.7 cm cyst at the upper pole of the right kidney, a 9.8 cm cyst at the lower pole of the right kidney, a 7.3 cm cyst at the upper pole of the left kidney, and a 4.6 cm cyst at the lower pole of the left kidney. No renal calculi are identified. There is severe right hydroureteronephrosis with abrupt tapering of the distal ureter to normal caliber just above the UVJ. No obstructing calculus is seen. There is no left hydroureteronephrosis. LYMPH NODES: There is a 2.0 cm left external iliac lymph node. VASCULATURE: The abdominal aorta is normal in caliber. MESENTERY/PERITONEUM: No free fluid. No masses. There is no free intraperitoneal gas. STOMACH: The patient is status post gastric surgery. SMALL BOWEL: The small bowel is normal in caliber. COLON: There is diverticulosis of the sigmoid colon, without evidence of diverticulitis. APPENDIX: Normal. URINARY BLADDER/PELVIC ORGANS: The urinary bladder is collapsed, limiting evaluation. The patient is status post hysterectomy. BONES / SOFT TISSUES: No suspicious bony or soft tissue abnormalities. CT/CT abdomen pelvis wo IV con IMPRESSION: 1. Severe right hydroureteronephrosis with abrupt tapering to normal caliber just above the UVJ. No obstructing calculus is identified. Neoplasm is not excluded, and cystoscopy with a retrograde study of the ureter is recommended. 2. 1.7 cm indeterminate left adrenal nodule. In the absence of a known primary malignancy, this likely represents an adenoma. If there is a known primary malignancy, adrenal protocol CT is recommended. 3. 2.0 cm left external iliac lymph node. Electronically signed by: Jose Enrique Shannon MD 05/11/2024 09:23 AM EST Dictated By: Jose Enrique Shannon MD Signed By: <Electronically signed by Jose Enrique Shannon MD in OV> 05/11/2423 DD/ 0736 TD/TT: 05/11/24 0848 Hvac Commercial Salesperson: [facility] External Provider IMG CT PROCEDURES Edited Result - Final * TSH W/Reflex to FT4 (04/14/2024 10:59 AM EST) TSH reflex Free T4 0.47 0.32 - 4.0 uIU/mL [facility] Blood Venous blood specimen / Unknown 04/14/2024 10:59 AM EST 04/14/2024 1:13 PM EST Result [facility] Ginette Freeman MD LAB BLOOD ORDERABLES Final Result [facility] [address] [place] [phone] * (ABNORMAL) POCT HGB A1C (04/14/2024 10:13 AM EST) Pathologist [facility] Hemoglobin A1C 6.5(A) 4.0 - 6.0 % QC Media Lot # [id number] Lot# Expiration Date [id number] Blood 04/14/2024 10:1 3 AM EST Result [facility] Ginette Freeman MD POINT OF CARE TEST EN TER/EDIT ORDERABLES Final Result * POCT Glucose (04/14/2024 10:13 AM EST) Pathologist [facility] Glucose Blood, POC 143 60 - 200 mg/dL QC Media Lot # [id number] Lot# Expiration Date [id number] Blood Capillary blood specimen / Unknown 04/14/2024 10:13 AM EST Result [facility] Ginette Freeman MD POINT OF CARE TEST EN TER/EDIT ORDERABLES Final Result * BI Mammogram Screening Tomosynthesis Bilateral (03/09/2024 1:20 PM EST) Anatomical Region Laterality Modality Breast Bilateral Mammography 03/09/2024 1:20 PM EST Narrative 03/17/2024 1:55 PM EST ? [facility] ? [address] ?[place] [address] ? Mammography Report ? Signed ? Patient: Iverson,Rosie ?MR#: [id number] ? : 1960 ?Acct:[id number] ? Age/Sex: 63 / F ?ADM Date: 03/09/24 ? Loc: HO.MAMMO ? Attending Dr: Ginette Freeman MD ? Ordering Physician: Ginette Fortune MD ?Results: ?? 1Negative ? Date of Service: 03/09/24 ?Follow Up: 1 Year From Orig ?? inal Mammogram ? Procedure(s): MM tomosynthesis screening BI ?? Accession Number(s): [id number] ? cc: Ginette Fortune MD ? EXAMINATION: ?? MM SCREENING DIGITAL BREAST TOMOSYNTHESIS, BILATERAL ? CLINICAL INFORMATION: ? Screening. Asymptomatic. ? COMPARISON: ?? Mammography: Comparison is made with available priors ? TECHNIQUE: ?? Digital breast mammography with tomosynthesis is performed in both the ?? craniocaudal and mediolateral oblique views along with computer-aided ?? detection (CAD). ? FINDINGS: ?? There are scattered areas of fibroglandular density (ACR BI-RADS breast ?? composition Category b). ? There are no significant masses, abnormal calcifications, or other ?? abnormalities. ? MM/MM tomosynthesis screening BI ?? IMPRESSION: ?? No mammographic evidence of malignancy. ? ASSESSMENT: ? BI-RADS BI-RADS 1 - Negative ? RECOMMENDATION: ?? Routine annual mammography screening. ? 1 year F/U ? This examination should not preclude the clinical evaluation of a ?? suspicious palpable abnormality. ? This patient's information was entered into a reminder system with a ?? target due date for their next mammogram. ? Electronically signed by: ??Amy Lu DO ??03/17/2024 01:52 PM EST ?? RP ? Dictated By: ?Amy Lu DO ? Signed By: ?<Electronically signed by Amy Lu, DO in OV> ? 03/17/24 1352 ? DD/ 1320 ? TD/TT: 03/09/24 1335 ? Hvac Commercial Salesperson: ? Procedure Note Donotvishalinterpreter, Image - 03/17/2024 [facility] [address] [place] [address] Mammography Report Signed Patient: Jovani Iverson#: [id number] : 2Acct:[id number] Age/Sex: 63 / FADM Date: 03/09/24 Loc: HO.MAMMO Attending Dr: Ginette Freeman MD Ordering Physician: Ginette Fortune MDResults: 1Negative Date of Service: 03/09/24Follow Up: 1 Year From Orig inal Mammogram Procedure(s): MM tomosynthesis screening BI Accession Number(s): [id number] cc: Ginette Fortune MD EXAMINATION: MM SCREENING DIGITAL BREAST TOMOSYNTHESIS, BILATERAL CLINICAL INFORMATION: Screening. Asymptomatic. COMPARISON: Mammography: Comparison is made with available priors TECHNIQUE: Digital breast mammography with tomosynthesis is performed in both the craniocaudal and mediolateral oblique views along with computer-aided detection (CAD). FINDINGS: There are scattered areas of fibroglandular density (ACR BI-RADS breast composition Category b). There are no significant masses, abnormal calcifications, or other abnormalities. MM/MM tomosynthesis screening BI IMPRESSION: No mammographic evidence of malignancy. ASSESSMENT: BI-RADS BI-RADS 1 - Negative RECOMMENDATION: Routine annual mammography screening. 1 year F/U This examination should not preclude the clinical evaluation of a suspicious palpable abnormality. This patient's information was entered into a reminder system with a target due date for their next mammogram. Electronically signed by: Amy Lu DO 03/17/2024 01:52 PM EST RP Dictated By: Amy Lu DO Signed By: <Electronically signed by Amy Lu DO in OV> 03/17/24 1352 DD/ 1320 TD/TT: 03/09/24 1335 Hvac Commercial Salesperson: us Ginette Freeman MD IMG BI PROCEDURES Fin al Result * US VENOUS DUPLEX LE LT (03/01/2024 1:25 PM EDT) Anatomical Region Laterality Modality Abdomen Ultrasound 03/01/2024 1:25 PM EDT Narrative 03/01/2024 2:01 PM EDT ? [facility] ?[address] ?[place] [address] ? Ultrasound Report ? Signed ? Patient: Rosie Iverson ?MR#: [id number] ? : 1960 ?Acct:[id number] ? Age/Sex: 63 / F ?ADM Date: 03/01/24 ? Loc: HO.US ? Attending Dr: Maximus Brandon MD ? Ordering Physician: Maximus Brandon MD ?? Date of Service: 03/01/24 ?? Procedure(s): US venous duplex LE LT ?? Accession Number(s): [id number] ? cc: Ginette Fortune MD; Maximus Brandon MD ? EXAMINATION: ?? US TRIPLEX LOWER EXTREMITY, LEFT ? CLINICAL INFORMATION: ?? Status post left venaseal ? COMPARISON: ?? None available. ? TECHNIQUE: ?? Color-flow triplex imaging with spectral analysis and compression ?? Doppler were performed on the left lower extremity. ? FINDINGS: ?? Respiratory variation, normal compression and augmented flow are noted ?? throughout the left lower extremity. The visualized common femoral ?? vein, superficial femoral vein, profunda femoral vein, popliteal vein ?? and midcalf peroneal and posterior tibial venous segments show no ?? evidence of deep venous thrombosis. ? There is no Oscar's cyst. ? The visualized GSV appears appropriately thrombosed. ? US/US venous duplex LE LT ?? IMPRESSION: ?? No evidence of deep venous thrombosis involving the left lower ?? extremity. ?? The visualized GSV appears appropriately thrombosed. ? Electronically signed by: ??Angelo Stiles MD ??03/01/2024 01:58 PM EDT RP ? Dictated By: ?Angelo Stiles MD ? Signed By: ?<Electronically signed by Angelo Stiles MD in OV> ?03/01/24 1358 ? DD/ 1325 ? TD/TT: 03/01/24 1345 ? Hvac Commercial Salesperson: ? Procedure Note Donsueter, Image - 03/01/2024 [place] [address] Ultrasound Report Signed Patient: Jovani Iverson#: [id number] : 1960cct:[id number] Age/Sex: 63 / FADM Date: 03/01/24 Loc: HO.US Attending Dr: Maximus Brandon MD Ordering Physician: Maximus Brandon MD Date of Service: 03/01/24 Procedure(s): US venous duplex LE LT Accession Number(s): [id number] cc: Ginette Fortune MD; Maximus Brandon MD EXAMINATION: US TRIPLEX LOWER EXTREMITY, LEFT CLINICAL INFORMATION: Status post left venaseal COMPARISON: None available. TECHNIQUE: Color-flow triplex imaging with spectral analysis and compression Doppler were performed on the left lower extremity. FINDINGS: Respiratory variation, normal compression and augmented flow are noted throughout the left lower extremity. The visualized common femoral vein, superficial femoral vein, profunda femoral vein, popliteal vein and midcalf peroneal and posterior tibial venous segments show no evidence of deep venous thrombosis. There is no Oscar's cyst. The visualized GSV appears appropriately thrombosed. US/US venous duplex LE LT IMPRESSION: No evidence of deep venous thrombosis involving the left lower extremity. The visualized GSV appears appropriately thrombosed. Electronically signed by: Angelo Stiles MD 03/01/2024 01:58 PM EDT RP Dictated By: Angelo Stiles MD Signed By: <Electronically signed by Angelo Stiles MD in OV> 03/01/24 1358 DD/ 1325 TD/TT: 03/01/24 1345 Hvac Commercial Salesperson: [facility] External Provider IMG US PROCEDURES Final Result * Hepatitis C Antibody with Reflex to HCV, RNA, Quantitative, Real-Time PCR (01/27/2024 10:22 AM EDT) Hepatitis C Antibody Nonreactive Nonreactive [facility] Comment:Antibodies to HCV no t detected; does not exclude early acuteHCV infection. Blood Venous blood specimen / Unknown 01/27/2024 10:22 AM EDT 01/27/2024 11:20 AM EDT us Ginette Freeman MD LAB BLOOD ORDERABLES Final Result [facility] [address] [place] [address] [phone] * (ABNORMAL) Lipid Panel, Standard (01/27/2024 10:22 AM EDT) Triglycerides 195(H) <150 mg/dL [facility] Comment:Desirable Triglyceri de: less than 150 mg/dLBorderline High Triglyceride 150-199 mg/dLHigh Triglyceride: 200-499 mg/dLVery High Triglyceride: greater than or equal to 5OO mg/dL Cholesterol 222(H) <200 mg/dL [facility] Comment:Desirable Cholestero l: less than 200 mg/dLBorderline High Cholesterol: 200-239 mg/dLHigh Cholesterol: greater than 239 mg/dL LDL Cholesterol Calculated 129(H) <100 mg/dL [facility] Comment:Desirable LDL: less than 100 mg/dLNear Optimal/Above Optimal LDL: 110- 129 mg/dLBorderline High LDL: 130-159 mg/dLHigh LDL: 160-189 mg/dLVery High LDL: greater than or equal to 190 mg/dL HDL Cholesterol 54 >40 mg/dL [facility] Comment:Desirable HDL: great er than 40 mg/dL Note: This HDL assay may give artificially low results in patients with liver disease. Blood Venous blood specimen / Unknown 01/27/2024 10:22 AM EDT 01/27/2024 11:20 AM EDT Ginette Freeman MD LAB BLOOD ORDERABLES Final Result [facility] [address] [place] [phone] from Last 3 Months or Most Recently Relevant to Health Maintenance Insurance [facility] Care Teams Operator Ground Based Air Defence Relationship Specialty Start Date End Date Ginette Fortune MD [address] [place] [address] PCP - General Internal Medicine 10/27/23
--- OUTSIDE RECORDS SUMMARY | 2024-05-26 11:25 | XMS_ITS | Encounter Summary ---
Author Organization [employer] Address [address] [facility] 7t [place] [address] Care Team Providers Care Corporate Banking Officer Name Role Phone Ginette Fortune MD Primary Care Provide r Reason for Visit * Reason Onset Date Comments Referral 04/29/2024 Encounter Details Date Type Department Care Team ([facility] Contact Info) Description 04/29/2024 Telephone [facility] [address] [place] [address] Ginette Fortune MD [address] [place] [address] Referral Social History Tobacco Use Types Packs/Day Years Used Date Smoking Tobacco: Never Passive Smoke Exposure: Never Smokeless Tobacco: Never Alcohol Use Standard Drinks/Week Comments Not Currently [...] Don't know 07/16/2023 3: 21 PM EDT documented as of this encounter Miscellaneous Notes * Telephone Encounter - Ariana León RN - 04/29/2024 12:56 PM EST Telephone call to pt to advise of below results per Dr Galindo using professor of spanish [facility] #[id number]. Advised her that ultrasound shows a multinodal goiter which is an enlargement of the thyroid gland and that while no intervention is necessary at the moment, the provider would like her to be monitored by endocrinology and that referral was placed. Pt stated she already has pack room operator at [facility] and appt scheduled for June. Advised her that [facility] will fax it over and advised pt to keep appt in June. Pt verbalized understanding, no further questions. Faxed copy of ultrasound to [facility] Endo, confirmation received, placed in bin to scan. * Telephone Encounter - Ariana León RN - 04/29/2024 12:49 PM EST ----- Message from Ginette Freeman MD sent at 04/29/2024 11:38 AM EST ----- Please let patient know I reviewed her US she has multinodular goiter, no intervention is necessaryyet but she needs monitoring I referred her to endocrinology thank you documented in this encounter Plan of Treatment Upcoming Encounters Date Type Department Care Team (Late st Contact Info) Description 06/03/2024 10:45 AM EST Office Visit [facility] [address] [place] [address] Fozia Cantu MD [address] [place] [address] documented as of this encounter Visit Diagnoses Not on filedocumented in this encounter Additional Health Concerns Assessment Noted Time PHQ-9 Depression Total Score: 0 10/21/19 10:02 AM EDT documented as of this encounter Care Teams Corporate Banking Officer Relationship Specialty Start Date End Date Ginette Fortune MD [address] [place] [address] [phone] PCP - General Internal Medicine 10/27/23 documented as of this encounter
--- OUTSIDE RECORDS SUMMARY | 2024-05-26 11:25 | XMS_ITS | Encounter Summary ---
Author Organization [employer] Address [address] [facility] 7t [place] [address] Care Team Providers Care Slicing Machine Feeder Name Role Phone Ginette Fortune MD Primary Care Provide r Reason for Visit * Reason Onset Date Comments Hospital Follow-up 05/14/2024 Encounter Details Date Type Department Care Team ([facility] Contact Info) Description 05/14/2024 Telephone [facility] [address] [place] [address] Ginette Fortune MD [address] [place] [address] Hospital Follow-up Social History Tobacco Use Types Packs/Day Years [...] encounter Miscellaneous Notes * Telephone Encounter - Ramesh June - 05/14/2024 9:00 AM EST Tc from pt requesting a HDF appt. Hospital: [facility] Date of admission: 05/09/2024 Discharge date: 05/13/2024 Diagnosed: Kidney problems *Send message to [facility] Care Coordinators documented in this encounter Plan of Treatment Upcoming Encounters Date Type Department Care Team (Late st Contact Info) Description 06/03/2024 10:45 AM EST Office Visit [facility] [address] [place] [address] Fozia Cantu MD [address] [place] [address] documented as of this encounter Visit Diagnoses Not on filedocumented in this encounter Additional Health Concerns Assessment Noted Time PHQ-9 Depression Total Score: 0 10/21/19 24 10:02 AM EDT documented as of this encounter Care Teams Slicing Machine Feeder Relationship Specialty Start Date End Date Ginette Fortune MD [address] [place] [phone] PCP - General Internal Medicine 10/27/23 documented as of this encounter
--- OUTSIDE RECORDS SUMMARY | 2024-05-26 11:25 | XMS_ITS | Encounter Summary ---
Author Organization [employer] [facility] Address [address] [facility] [address], [place] [address] Care Team Providers Care Field Services Manager Name Role Phone Ginette Fortune MD Primary Care Provide r Reason for Referral * Consultation (Routine) - Closed Specialty Diagnoses / Procedures Referred By Contcarey t Referred To Contact Endocrinology Diagnoses Multinodular goiter Ginette Fortune MD [address] [place] [address] Phone: tel: fax: [facility] [address] [place], [place] Phone: tel: fax: Referral ID Status Reason Start Date Expiration Date V isits Requested Visits Authorized [id number] Closed Specialty Services Required 04/29/2024 04/29/2025 1 1 Encounter Details Date Type Department Care Team (Late st Contact Info) Description 04/29/2024 Orders Only [facility] [address] [place] [phone] Ginette Fortune MD [address] [place], [place] [phone] Multinodular goiter (Primary Dx) Social History Tobacco Use Types Packs/Day Years [...] PM EDT documented as of this encounter Plan of Treatment Upcoming Encounters Date Type Department Care Team (Late st Contact Info) Description 06/03/2024 10:45 AM EST Office Visit [facility] [address] [place] [address] Fozia Cantu MD [address] [place] [address] Scheduled Referrals Name Type Priority Associated Diagnoses Order Schedule Referral to Endocrinology Outpatient Referral Routine Multinodular goiter Expected: 04/29/2024 (Approximate), Expires: 04/29/2025 documented as of this encounter Procedures Procedure Name Priority Date/Time Associated Diagnosis Comments FL GUIDANCE IN OR Routine 05/12/2024 5:[address] ABDOMEN PELVIS WO CONTRAST Routine 05/11/2024 7:36 AM EST documented in this encounter Results * FL Guidance in OR (05/12/2024 5:00 PM EST) Anatomical Region Laterality Modality X-Ray Angiograph y 05/12/2024 5:00 PM EST Narrative 05/13/2024 10:40 AM EST ? [facility] ?[address] ?[place] [address] ? Fluoroscopy Report ? Signed ? Patient: Iverson,Rosie ?MR#: [id number] ? : 1960 ?Acct:[id number] ? Age/Sex: 63 / F ?ADM Date: 05/11/24 ? Loc: HO.S3 ?359-1 ? Attending Dr: Jayden Raymundo MD ? Ordering Physician: Renato Bloom MD ?? Date of Service: 05/12/24 ?? Procedure(s): FL guidance in OR ?? Accession Number(s): [id number] ? cc: Ginette Fortune MD; Renato Bloom [...] signed by Sergio Burgos MD in OV> ?05/13/246 ? DD/ 1700 ? TD/TT: 05/12/24 1730 ? Class C Truck Driver: LOREN ? Procedure Note Donotjosé miguelter, Image - 05/13/[address] [address] Fluoroscopy Report Signed Patient: Jovani Iverson#: [id number] : 1960cct:[id number] Age/Sex: 63 / FADM Date: 05/11/24 Loc: .S3 359-[address]: Jayden Raymundo MD Ordering Physician: Renato Bloom MD Date of Service: 05/12/24 Procedure(s): FL guidance in OR Accession Number(s): [id number] cc: Ginette Fortune MD; Renato Bloom MD [...] Sergio Burgos MD 05/13/2024 10:36 AM EST Dictated By: Sergio Burgos MD Signed By: <Electronically signed by Sergio Burgos MD in OV> 05/13/24 1036 DD/ 1700 TD/TT: 05/12/24 173 Class C Truck Driver: LOREN us [facility] External Provider IMG IR PROCEDURES Final Result * CT Abdomen Pelvis w/o Contrast (05/11/2024 7:36 AM EST) Anatomical Region Laterality Modality Body, Pelvis, Abdomen Computed T omography 05/11/2024 7:36 AM EST Narrative 05/11/2024 9:26 AM EST ? [facility] ?[address] ?[place] [address] ? CT Scan Report ? Signed ? Patient: Iverson,Rosie ?MR#: [id number] ? : 1960 ?Acct:[id number] ? Age/Sex: 63 / F ?ADM Date: 05/11/24 ? Loc: HO.ED ? Attending Dr: ? Ordering Physician: Nancy Lawrence ?? Date of Service: 05/11/24 ?? Procedure(s): CT abdomen pelvis wo IV con ?? Accession Number(s): [id number] ? cc: Ginette Fortune MD; Nancy Lawrence ? Report Number: ?? [id number]: Total DLP = ??437.00 mGy-cm ?? EXAMINATION: [...] Signed By: ?<Electronically signed by Jose Enrique Sahnnon MD in OV> ?05/11/24 0923 ? DD/ 0736 ? TD/TT: 05/11/24 0848 ? Class C Truck Driver: ? Procedure Note Donotuseinterpreter, Image - 05/11/[address] [place] [address] [address] Scan Report Signed Patient: Jovani Iverson#: [id number] : 1960cct:[id number] Age/Sex: 63 / FADM Date: 05/11/24 Loc: HO.ED Attending Dr: Ordering Physician: Nancy Lawrence Date of Service: 05/11/24 Procedure(s): CT abdomen pelvis wo IV con Accession Number(s): [id number] cc: Ginette Fortune MD; Nancy Lawrence Report Number: [id number]: Total DLP = 437.00 mGy-cm EXAMINATION: CT [...] Enrique Shannon MD 05/11/2024 09:23 AM EST RP Dictated By: Jose Enrique Shannon MD Signed By: <Electronically signed by Jose Enrique Shannon MD in OV> 05/11/24922 DD/ TD/TT: 05/11/24 0848 Class C Truck Driver: [facility] External Provider IMG CT PROCEDURES Edited Result - Final documented in this encounter Visit Diagnoses Diagnosis Multinodular goiter- Primary Nontoxic multinodular goiter documented in this encounter Additional Health Concerns Assessment Noted Time PHQ-9 Depression Total Score: 0 10/21/19 24 10:02 AM EDT documented as of this encounter Care Teams Field Services Manager Relationship Specialty Start Date End Date Ginette Fortune MD [address] [place] [phone] PCP - General Internal Medicine 10/27/23 documented as of this encounter
--- OUTSIDE RECORDS SUMMARY | 2024-05-26 11:25 | XMS_ITS | Encounter Summary ---
Author Organization [employer] Address [address] [facility] 7t [place] [address] Care Team Providers Care Java Application Engineer Name Role Phone Ginette Fortune MD Primary Care Provide r Reason for Visit * Reason Comments Transition Of Care (Tcm) HDF scheduled Encounter Details Date Type Department Care Team ([facility] st Contact Info) Description 05/14/2024 Patient Outreach [facility] [address] [place] [address] Ginette Fortune MD [address] [place] [address] Transition Of Care (Tcm) (HDF scheduled) Social History Tobacco Use Types Packs/Day Years [...] as of this encounter Miscellaneous Notes * Significant Event - Ofelia Chung - 05/14/2024 9:21 AM EST 05/14/24 0920 Hospital Discharges and Admission for [facility] Type of Visit Hospital Admission Date of Admission/Visit 05/09/24 Date of Discharge 05/13/24 Facility [facility] Diagnosis Kidney Disposition Discharged Home Follow-Up Actions Follow-Up Needed Provider appointment Follow-Up Outcome Spoke to Patient;Booked Appointment Initial Contact Date 05/14/24 LEONIE Gilbert placed outbound call to patient for HDF outreach. Patient educated on the importance of follow up with provider following inpatient admission. Patient offered an HDF appt. Patient is agreeable to an appointment and has been scheduled for 06/03/2024 at 10:45 am withNPS Insurance verified prior to scheduling. Patient advised to bring to appointment a photo id and insurance card. Biggest concerns for appointment at this time is--- Patient provided with education on contacting the Health Center with any questions or concerns prior to the scheduled appointment. Patient educated on extended clinic hours on Mondays and Wednesdays, and Walk-In Urgent Care Located in [facility] of [facility]. Patient provided with after-hours line for [facility], , which offer night time triage service and option to transfer to oil exploration engineer provider if needed. [facility] discharge summary has been scanned into chart documented in this encounter Plan of Treatment Upcoming Encounters Date Type Department Care Team (Late st Contact Info) Description 06/03/2024 10:45 AM EST Office Visit [facility] [address] [place] [address] Fozia Cantu MD [address] [place], [place] [phone] documented as of this encounter Visit Diagnoses Not on filedocumented in this encounter Additional Health Concerns Assessment Noted Time PHQ-9 Depression Total Score: 0 10/21/19 10:02 AM EDT documented as of this encounter Care Teams Java Application Engineer Relationship Specialty Start Date End Date Ginette Fortune MD [address] [place] [phone] PCP - General Internal Medicine 10/27/23 documented as of this encounter
--- OUTSIDE RECORDS SUMMARY | 2024-05-26 11:25 | XMS_ITS | Encounter Summary ---
Author Organization [facility] Address [address] [address] Care Team Providers Care Imaging Technician Name Role Phone Ginette Fortune MD Primary Care Provide r Reason for Referral * Consultation (Routine) - Authorized Specialty Diagnoses / Procedures Referred By Eula winston Referred To Contact Orthopaedic Surgery Diagnoses Acute pain of left knee Drea Monroy MD [address] [place] [address] Phone: tel: fax: [facility] [address] [place] [address] Phone: tel: fax: Referral ID Status Reason Start Date Expiration Date Visits Requested Visits Authorized [id number] Authorized Specialty Services Required 11/14/2023 11/13/2024 1 1 Encounter Details Date Type Department Care Team (Late st Contact Info) Description 11/14/2023 Orders Only [facility] MED & PEDS [address] [place], [place] [phone] Drea Monroy MD [address] [place], [place] [phone] Acute pain of left knee (Primary Dx) Social History Tobacco Use Types [...] Recorded Patient Health Questionnaire-2 Score 0 10/21/2023 Comments Unknown Sex and Gender Information Value [...] Description 06/03/2024 10:45 AM EST Office Visit [facility] MEDICINE [address] [place] [address] Fozia Cantu MD [address] [place] [address] Scheduled Referrals Name Type Priority Associated Diagnoses Order Schedule Referral to Orthopaedic Surgery Outpatient Referral Routine Acute pain of left knee Expected: 11/14/2023 (Approximate), Expires: 11/13/2024 documented as of this encounter Visit Diagnoses Diagnosis Acute pain of left knee- Primary documented in this encounter Additional Health Concerns Assessment Noted Time PHQ-9 Depression Total Score: 0 10/21/19 10:02 AM EDT documented as of this encounter Care Teams Imaging Technician Relationship Specialty Start Date End Date Ginette Fortune MD [address] [place] [address] PCP - General Internal Medicine 10/27/23 documented as of this encounter
--- OUTSIDE RECORDS SUMMARY | 2024-05-26 11:25 | XMS_ITS | Clinical Summary ---
Author Organization [facility] Address [address] [place] [address] Care Team Providers Care User Interface Developer Name Role Phone Kaley Jacobson MD Primary Care Provider [phone] Surgical History Surgery Date Site/Laterality Comments TOTAL KNEE ARTHROPLASTY 2009 PROCEDURE: [place] ARTHRP KNE CONDYLE&PLATU MEDIAL&LAT COMPARTMENTS CHOLECYSTECTOMY PROCEDURE: [place] LAPAROSCOPY SURG CHOLECYSTECTOMY SECTION PROCEDURE: HISTORICAL OTHER SURGICAL HISTORY Right PROCEDURE: ARTHROSCOPY PROCEDURE NEC; COMMENT: no relief of pain, even after PT Medical History Medical History Date Comments HTN (hypertension) DX:HTN (hyper tension) Depression DX:Depression Diabetic retinopathy (CMS/HCC) 06/06/2017 D X:Diabetic retinopathy (HCC) Hyperlipidemia 06/06/2017 DX:Hyperlipidemi a Osteoarthritis 06/06/2017 DX:Osteoarthriti s; COMMENT: L knee Tear of medial meniscus of knee 06/06/2017 DX:Tear of medial meniscus of knee; COMMENT: R knee, arthroscopy Dr. Wu. Continued pain 03/2017, seeking 2nd opinion at [facility] History of CVA (cerebrovascu lar accident) 06/06/2017 DX:History of CVA (cerebrova scular accident); COMMENT: 06/27/2016 Duplex bilat carotid US, no evidence of significant stenosis involving internal carotid arteries. Type 2 diabetes with ophthal or[place] manifestation (CMS/HCC) 06/06/2017 DX:Type 2 diabetes with opht halmic manifestation (HCC) Lipoma of left thigh 06/06/2017 DX:Lipoma o f left thigh; COMMENT: 03/21/2016 bx Multiple renal cysts 06/06/2017 DX:Multiple renal cysts; COMMENT: Bilateral, 06/04/2016 Multiple thyroid nodules 06/06/2017 DX:Mult iple thyroid nodules; COMMENT: US 12/2015 Multiple pulmonary nodules 06/06/2017 DX:Mu ltiple pulmonary nodules; COMMENT: Bilaterally, chest CT 12/2015 Social History Tobacco Use Types Packs/Day Years Used Date Smoking Tobacco: Never Alcohol Use Standard Drinks/Week Comments No 0 (1 standard drink = 0.6 oz pur e alcohol) Sex and Gender Information Value Date Recorded Sex Assigned at Not on file Gender Identity Not on file Sexual Orientation Not on file Obstetrics History Last Filed Vital Signs Vital Sign Reading Time Taken Comments Blood Pressure - - Pulse - - Temperature - - Respiratory Rate - - Oxygen Saturation - - Inhaled Oxygen Concentration - - Weight 78.9 kg (174 lb) 04/16/2022 12:51 PM EST Height 154.9 cm (5' 1 ) 04/16/2022 12:51 PM EST Body Mass Index 32.88 04/16/2022 12:51 PM EST Plan of Treatment Health Maintenance Due Date Last Done Comments Breast Cancer Screening 1961 Diabetes: Annual GFR (Glomer ular Filtration Rate) 1961 Diabetes: Annual Foot Exam 1971 Diabetes: Annual Retina Eye Exam 1971 DTaP,Tdap,and Td Vaccines (1 - Tdap) 1980 Cervical Cancer Screening: P ap Smear 1982 Zoster Vaccines (1 of 2) 2011 RSV Immunization Patients 60 + Years Old (1 - Risk 60-74 years 1-dose series) 2021 Cholesterol Screening (Lipid Panel) 04/07/2022 Colorectal Cancer Screening: Colonoscopy 04/07/2022 Depression Screening 04/07/2022 HIV Screening 04/07/2022 Hepatitis C Screening 04/07/2022 Social Influencers of Health Screening 04/07/2022 Diabetes: Annual Urine Albumin-Creatinine Ratio (uACR) 04/19/2022 Diabetes: Blood Sugar Contro l Test (HGBA1C) 04/19/2022 Hypertension/CHF/CAD Annual BMP Blood Test 04/19/2022 COVID-19 Vaccine (2023-2 5 season) 2024 Influenza Vaccine (#1) 2024 HIB Vaccines Aged Out No longer eligi [...] on patient's age to complete this topic MMR Vaccines Aged Out No longer eligi ble based on patient's age to complete this topic Meningococcal ACWY Vaccine Aged Out N o longer eligible based on patient's age to complete this topic Pneumococcal Vaccine: Pediat rics (0 to 5 Years) and At-Risk Patients (6 to 64 Years) Aged Out No longer eligible b ased on patient's age to complete this topic RSV Immunization Patients Un reymundo 20 months Aged Out No longer eligible b ased on patient's age to complete this topic Varicella Vaccines Aged Out No longer eligible based on patient's age to complete this topic Care Teams User Interface Developer Relationship Specialty Start Date End Date Kaley Jacobson MD [address] [place] [address] PCP - General Internal Medicine 03/11/17
--- OUTSIDE RECORDS SUMMARY | 2024-05-26 11:26 | XMS_ITS | Encounter Summary ---
Author Organization [facility] Address [address] [place] [address] Phone Care Team Providers Care Car Hop Name Role Phone Ashkan Jacobson MD Primary Care Provider [phone] Encounter Details Date Type Department Care Team (Late Contact Info) Description 01/06/2024 Documentation Only [facility] [address] [place] [address] Charlotte Mehta [address] [place] [address] Social History Tobacco Use Types Packs/Day Years Used Date Smoking Tobacco: Never Alcohol Use Standard Drinks/Week Comments No 0 (1 standard drink = 0.6 oz pur e alcohol) Comments Unknown Sex and Gender Information Value Date Recorded Sex Assigned at Not on file Legal Sex Female 4:31 PM EST Gender Identity Not on file Sexual Orientation Not on file documented as of this encounter Plan of Treatment Upcoming Encounters Date Type Department Care Team (Late Contact Info) Description 06/29/2024 10:10 AM EST Office Visit [facility] [address] [place] [address] Godfrey Marcum MD [address] [place] [address] [place] [address] documented as of this encounter Visit Diagnoses Not on filedocumented in this encounter Care Teams Car Hop Relationship Specialty Start Date End Date Ashkan Jacobson MD [address] [place] [address] [address] [place], [place] PCP - General 03/09/19 documented as of this encounter
--- OUTSIDE RECORDS SUMMARY | 2024-05-26 11:26 | XMS_ITS | Encounter Summary ---
Author Organization [facility] Address [address] [place] [address] Phone Care Team Providers Care Coding Quality Coordinator Name Role Phone Ashkan Jacobson MD Primary Care Provider [phone] Encounter Details Date Type Department Care Team (Late Contact Info) Description 08/04/2023 Documentation Only [facility] [address] [place] [address] Xochilt Crawford [place] [address] [place] [address] Social History Tobacco Use Types [...] Care Team (Late st Contact Info) Description 06/29/2024 10:10 AM EST Office Visit [facility] [address] [place] [address] Godfrey Marcum MD [address] [place] [address] [place] [address] documented as of this encounter Visit Diagnoses Not on filedocumented in this encounter Care Teams Coding Quality Coordinator Relationship Specialty Start Date End Date Ashkan Jacobson MD [address] [place] [address] [address] [place], [place] PCP - General 03/09/19 documented as of this encounter
--- OUTSIDE RECORDS SUMMARY | 2024-05-26 11:26 | XMS_ITS | Encounter Summary ---
Author Organization [facility] Address [address] [place] [address] Phone Care Team Providers Care Drug Safety Coordinator Name Role Phone Ashkan Jacobson MD Primary Care Provider [phone] Encounter Details Date Type Department Care Team (Late Contact Info) Description 02/04/2024 Documentation Only [facility] [address] [place] [address] Xochilt Crawford [place] [address] [place] [address] Social History Tobacco Use Types [...] Visit [facility] [address] [place] [address] Godfrey Marcum MD [address] [place] [address] [place] [address] documented as of this encounter Visit Diagnoses Not on filedocumented in this encounter Care Teams Drug Safety Coordinator Relationship Specialty Start Date End Date Ashkan Jacobson MD [address] [place] [address] [address] [place], [place] PCP - General 03/09/19 documented as of this encounter
--- OUTSIDE RECORDS SUMMARY | 2024-05-26 11:26 | XMS_ITS | Encounter Summary ---
Author Organization [facility] Address [address] [place] [address] Phone Care Team Providers Care Nursing Services Manager Name Role Phone Ashkan Jacobson MD Primary Care Provider [phone] Encounter Details Date Type Department Care Team (Late Contact Info) Description 07/30/2023 Documentation Only [facility] [address] [place] [address] Xochilt Crawford [place] [address] [place] [address] Social History Tobacco Use Types [...] Visit [facility] [address] [place] [address] Godfrey Marcum MD [address] [place] [address] [place] [address] documented as of this encounter Visit Diagnoses Not on filedocumented in this encounter Care Teams Nursing Services Manager Relationship Specialty Start Date End Date Ashkan Jacobson MD [address] [place] [address] [address] [place], [place] PCP - General 03/09/19 documented as of this encounter
--- OUTSIDE RECORDS SUMMARY | 2024-05-26 11:26 | XMS_ITS | Encounter Summary ---
Author Organization [facility] Address [address] [place] [address] Phone Care Team Providers Care Wafer Polishing Lead Worker Name Role Phone Ashkan Jacobson MD Primary Care Provider [phone] Encounter Details Date Type Department Care Team (Late Contact Info) Description 08/21/2023 Documentation Only [facility] [address] [place] [address] Xochilt Crawford [place] [address] [place] [address] Social History Tobacco Use Types [...] Visit [facility] [address] [place] [address] Godfrey Marcum MD [address] [place] [address] [place] [address] documented as of this encounter Visit Diagnoses Not on filedocumented in this encounter Care Teams Wafer Polishing Lead Worker Relationship Specialty Start Date End Date Ashkan Jacobson MD [address] [place] [address] [address] [place], [place] PCP - General 03/09/19 documented as of this encounter
--- OUTSIDE RECORDS SUMMARY | 2024-05-26 11:26 | XMS_ITS | Clinical Summary ---
Author Organization [facility] Address [address] [place] [address] [place] [address] Phone Care Team Providers Care Library Circulation Assistant Name Role Phone Ashkan Jacobson MD Primary Care Provider [phone] Allergies Active Allergy Reactions Criticality Noted Date Comments Latex Rash Low 05/26/2019 Medications omeprazole (PriLOSEC) [address] capsule Take 20 mg by mouth 1 (one) time each day Do not crush or chew. Active aspirin (ST ANALISA) 81 MG EC tablet Take 81 mg by mouth 1 (one) time each day Active fluticasone (FLONASE) 50 MCG/ACT nasal spray Administer 2 sprays into each nostril 1 (one) time each day Active Cranberry 1000 MG capsule Take by mouth Activ e cholecalcifero l (VITAMIN D-3) 50 MCG (1999 UT) capsule Take 2,000 Units by mouth 1 (one) time each day 01/21/20 21 Active LORazepam (ATIVAN) 0.5 MG tablet Take 0.5 mg by mouth 1 (one) time each day if needed 01/18/20 21 Active metoprolol tartrate 25 MG tablet Take 1 tablet (25 mg total) by mouth in the morning and 1 tablet (25 mg total) in the evening. 120 tablet 1 10/05/19 22 Active atorvastatin (LIPITOR) 20 MG tablet Take 20 mg by mouth 1 (one) time each day Active lisinopril 40 MG tablet Take 20 mg by mouth 1 (one) time each day Active FLUoxetine (PROzac) 40 MG capsule Take 1 capsule by mouth 03/08/20 22 Active nystatin (MYCOSTATIN) ointment Apply to affected areas daily 03/12/20 17 Active traZODone (DESYREL) 50 MG tablet TAKE 1 TO 3 TABLETS BY MOUTH AT BEDTIME NEEDED FOR SLEEP 03/08/20 22 Active Trulicity 1.5 MG/0.5ML solution pen-injector ADMINISTER 1.5 MG UNDER THE SKIN EVERY WEEK 11/02/19 23 Active Lantus SoloStar 100 UNIT/ML injection ADMINISTER 15 UNITS UNDER THE SKIN EVERY MORNING 08/30/19 23 Active metoprolol succinate XL (TOPROL-XL) 100 MG 24 hr tablet Take 50 mg by mouth 1 (one) time each day Discontinue d Active Problems Problem Noted Date Diagnosed Date Stage 3b chronic kidney disease 01/24/2021 Osteoarthritis 06/06/2017 Overview (09/24/2022): L knee Multinodular goiter 06/06/2017 Overview (09/24/2022): US 12/2015 Disorder of eye due to type 2 diabetes mellitus 06/06/2017 History of cerebrovascular accident 06/06/2017 Overview (09/24/2022): 06/27/2016 Duplex bilat carotid US, no evidence of significant stenosis. Type 2 diabetes mellitus with diabetic neuropath y Essential hypertension Resolved Problems Problem Noted Date Diagnosed Date Resolved Date Stage 3a chronic kidney disease 05/26/2019 02/05/2021 Overview (05/08/2020): Update for Diagnosis Load Serum creatinine above reference range 01/24/2021 Cyst of kidney 01/24/2021 Hyperlipidemia 01/24/2021 Nephrolithiasis 01/24/2021 Overview (05/26/2019): recurrent obstruction Immunizations Name Administration Dates Next Due Influenza, Quadrivalent, Preservative Free 01/23 Varicella 10/04/2014 Family History Medical History Relation Comments Diabetes type II Father Heart disease Father Hypertension Father Diabetes type II Mother Heart disease Mother Hypertension Mother Relation Status Comments Father Mother Social History Tobacco Use Types Packs/Day Years Used Date Smoking Tobacco: Never Alcohol Use Standard Drinks/Week Comments No 0 (1 standard drink = 0.6 oz pur e alcohol) Comments Unknown Sex and Gender Information Value Date Recorded Sex Assigned at Not on file Legal Sex Female 4:31 PM EST Gender Identity Not on file Sexual Orientation Not on file Last Filed Vital Signs Vital Sign Reading Time Taken Comments Blood Pressure 130/82 01/09/2023 10:30 AM EDT Pulse 75 05/27/2022 3:09 PM EST Temperature - - Respiratory Rate - - Oxygen Saturation - - Inhaled Oxygen Concentration - - Weight 86.1 kg (189 lb 12.8 oz) 02/06/2021 1:23 PM EDT Height 154.9 cm (5' 1 ) 05/26/2019 1:34 PM EST Body Mass Index 35.86 05/26/2019 1:34 PM EST Plan of Treatment Upcoming Encounters Date Type Department Care Team (Late st Contact Info) Description 06/29/2024 10:10 AM EST Office Visit [facility] [address] [place] [address] Godfrey Marcum MD [address] [facility] [place] [address] Health Maintenance Due Date Last Done Comments Breast Cancer Screening 1961 Pneumococcal Vaccine: Pediatrics (0 to 5 Years) and At-Risk Patients (6 to 64 Years) (1 of 2 - PCV) 1967 Colorectal Cancer Screening: Annual FOBT 2010 Colorectal Cancer Screening: Colonoscopy 2010 Colorectal Cancer Screening: Sigmoidoscopy 2010 Diabetes: Ophthalmology Exam 05/26/2019 Diabetes: Pedal Pulse Checked 05/26/2019 Diabetes: Sensory Foot Exam 05/26/2019 Diabetes: Visual Foot Exam 05/26/2019 Influenza Vaccine (#1) 2024 01/24/2020 Diabetes: Hemoglobin A1C 01/21/202410/20/2 024, 02/05/2023, 05/27/2022, Additional history exists Hepatitis B Vaccine Aged Out No longe r eligible based on patient's age to complete this topic Procedures Procedure Name Priority Date/Time Associated Diagnosis Comments HEMOGLOBIN A1C Routine 02/05/2023 10:48 AM EDT Type 2 diabetes mellitus with diabetic chronic kidney disease (HCC) from Last 3 Months or Most Recently Relevant to Health Maintenance Results * (ABNORMAL) Hemoglobin A1c (02/05/2023 10:48 AM EDT) Hemoglobin A1C 6.7(H) (4.0-5.6) % [facility] Comment: MONITORING: In known diabetic patients, hemoglobin A1c targets should be discussed with health care provider. DIAGNOSTIC USE: ??The [place] Diabetes Association (ADA) and the World Health Organization (WHO) recommend the use of HbA1c to diagnose diabetes using a threshold of 6.5%. Patients who have an HbA1c between 5.7% and 6.4% are considered at increased risk for developing diabetes in the future. CAUTION: Falsely low HbA1c results may be observed in patients with hemolytic anemia, homozygous forms of abnormal hemoglobin (e.g. SS, CC, SC), , recent blood loss or hemoglobin F greater than 7%. Fructosamine may be used as an alternate test in these cases. REFERENCE: ADA: Standards of Medical Care in Diabetes 2020, The Journal of Clinical and Applied Research and Education Volume 43, Supplement 1 Testing performed or reported by [facility], a Service of [facility], [address] [place] [address] Familia Britton MD, Machine Worker [facility]# [id number] Blood (Blood, Venous) 02/05/2023 10:48 AM EDT 02/05/2023 10:49 AM EDT us Godfrey Marcum MD LAB BLOOD ORDERABLES Final Re sult [facility] from Last 3 Months or Most Recently Relevant to Health Maintenance Insurance [facility] DUAL SNP ([id number]) [place] [id number] Care Teams Library Circulation Assistant Relationship Specialty Start Date End Date Ashkan Jacobson MD [address] [place] [address] PCP - General 03/09/19
--- OUTSIDE RECORDS SUMMARY | 2024-05-26 11:26 | XMS_ITS | Encounter Summary ---
Author Organization [facility] Address [address] [place] [address] Phone Care Team Providers Care Auto Customize Painter Name Role Phone Ashkan Jacobson MD Primary Care Provider [phone] Encounter Details Date Type Department Care Team (Late Contact Info) Description 09/24/2022 Documentation Only [facility] [address] [place] [address] Godfrey Marcum MD [address] [place] [address] [place] [address] Social History Tobacco Use Types Packs/Day Years [...] Visit [facility] [address] [place] [place] [address] Godfrey Marcum MD [address] [place] [address] [place] [address] documented as of this encounter Visit Diagnoses Not on filedocumented in this encounter Care Teams Auto Customize Painter Relationship Specialty Start Date End Date Ashkan Jacobson MD [address] [place] [address] [address] [place], [place] PCP - General 03/09/19 documented as of this encounter
--- OUTSIDE RECORDS SUMMARY | 2024-05-26 11:26 | XMS_ITS | Encounter Summary ---
Author Organization [facility] Address [address] [place] [address] Phone Care Team Providers Care It Application Architect Name Role Phone Ashkan Jacobson MD Primary Care Provider [phone] Encounter Details Date Type Department Care Team (Late Contact Info) Description 07/21/2023 Documentation Only [facility] [address] [place] [address] Xochilt Crawford [place] [address] [place] [address] Social History Tobacco Use Types [...] Visit [facility] [address] [place] [address] Godfrey Marcum MD [address] [place] [address] [place] [address] documented as of this encounter Visit Diagnoses Not on filedocumented in this encounter Care Teams It Application Architect Relationship Specialty Start Date End Date Ashkan Jacobson MD [address] [place] [address] [address] [place], [place] PCP - General 03/09/19 documented as of this encounter
--- OUTSIDE RECORDS SUMMARY | 2024-05-26 11:26 | XMS_ITS | Encounter Summary ---
Author Organization [facility] Address [address] [place] [address] Phone Care Team Providers Care Speaker Wirer Name Role Phone Ashkan Jacobson MD Primary Care Provider [phone] Encounter Details Date Type Department Care Team (Late Contact Info) Description 02/17/2024 Documentation Only [facility] [address] [place] [address] Xochilt Crawford [place] [address] [place] [address] Social History Tobacco Use Types [...] Visit [facility] [address] [place] [address] Godfrey Marcum MD [address] [place] [address] [place] [address] documented as of this encounter Visit Diagnoses Not on filedocumented in this encounter Care Teams Speaker Wirer Relationship Specialty Start Date End Date Ashkan Jacobson MD [address] [place] [address] [address] [place], [place] PCP - General 03/09/19 documented as of this encounter
--- OUTSIDE RECORDS SUMMARY | 2024-05-26 11:26 | XMS_ITS | Encounter Summary ---
Author Organization [facility] Address [address] [place] [address] Phone Care Team Providers Care Safety Sealer Name Role Phone Ashkan Jacobson MD Primary Care Provider [phone] Encounter Details Date Type Department Care Team (Late Contact Info) Description 07/23/2023 Documentation Only [facility] [address] [place] [address] Xochilt Crawford [place] [address] [place] [address] Social History Tobacco Use Types [...] Visit [facility] [address] [place] [address] Godfrey Marcum MD [address] [place] [address] [place] [address] documented as of this encounter Visit Diagnoses Not on filedocumented in this encounter Care Teams Safety Sealer Relationship Specialty Start Date End Date Ashkan Jacobson MD [address] [place] [address] [address] [place], [place] PCP - General 03/09/19 documented as of this encounter
--- OUTSIDE RECORDS SUMMARY | 2024-05-26 11:26 | XMS_ITS | Encounter Summary ---
Author Organization [facility] Address [address] [place] [address] Phone Care Team Providers Care Pillow Filler Name Role Phone Ashkan Jacobson MD Primary Care Provider [phone] Encounter Details Date Type Department Care Team (Late Contact Info) Description 12/19/2023 Documentation Only [facility] [address] [place] [place] [address] Xochilt Crawford [place] [address] [place] [address] Social History Tobacco Use Types [...] Visit [facility] [address] [place] [address] Godfrey Marcum MD [address] [place] [address] [place] [address] documented as of this encounter Visit Diagnoses Not on filedocumented in this encounter Care Teams Pillow Filler Relationship Specialty Start Date End Date Ashkan Jacobson MD [address] [place] [address] 201 [place], [place] PCP - General 03/09/19 documented as of this encounter
--- OUTSIDE RECORDS SUMMARY | 2024-05-26 11:26 | XMS_ITS | Encounter Summary ---
Author Organization [facility] Address [address] [place] [address] Phone Care Team Providers Care Emergency Preparedness Manager Name Role Phone Ashkan Jacobson MD Primary Care Provider [phone] Encounter Details Date Type Department Care Team (Late st Contact Info) Description 12/18/2021 Documentation Only [facility] [address] [place] [address] Macy Giraldo PA Social History Tobacco Use Types Packs/Day Years [...] Visit [facility] [address] [place] [address] Godfrey Marcum MD [address] [place] [address] [place] [address] documented as of this encounter Visit Diagnoses Not on filedocumented in this encounter Care Teams Emergency Preparedness Manager Relationship Specialty Start Date End Date Ashkan Jacobson MD [address] [place] [address] PCP - General 03/09/19 documented as of this encounter
--- OUTSIDE RECORDS SUMMARY | 2024-05-26 11:26 | XMS_ITS | Encounter Summary ---
Author Organization [facility] Address [address] [place] [address] Phone Care Team Providers Care Broke Beater Name Role Phone Ashkan Jacobson MD Primary Care Provider [phone] Encounter Details Date Type Department Care Team (Late Contact Info) Description 08/28/2023 Documentation Only [facility] [address] [place] [address] Xochilt Crawford [place] [address] [place] [address] Social History Tobacco Use Types [...] Visit [facility] [address] [place] [address] Godfrey Marcum MD [address] [place] [address] [place] [address] documented as of this encounter Visit Diagnoses Not on filedocumented in this encounter Care Teams Broke Beater Relationship Specialty Start Date End Date Ashkan Jacobson MD [address] [place] [address] 201 [place], [place] PCP - General 03/09/19 documented as of this encounter
--- OUTSIDE RECORDS SUMMARY | 2024-05-26 11:26 | XMS_ITS | Encounter Summary ---
Author Organization [facility] Address [address] [place] [address] Phone Care Team Providers Care Machine Shop Supervisor Name Role Phone Ashkan Jacobson MD Primary Care Provider [phone] Encounter Details Date Type Department Care Team (Late st Contact Info) Description 04/04/2022 Documentation Only [facility] [address] [place] [address] Macy Giraldo PA Social History Tobacco Use [...] Visit [facility] [address] [place] [address] Godfrey Marcum MD [address] [place] [address] [place] [phone] documented as of this encounter Visit Diagnoses Not on filedocumented in this encounter Care Teams Machine Shop Supervisor Relationship Specialty Start Date End Date Ashkan Jacobson MD [address] [place] [address] PCP - General 03/09/19 documented as of this encounter
--- OUTSIDE RECORDS SUMMARY | 2024-05-26 11:27 | XMS_ITS | Encounter Summary ---
Author Organization [facility] Address [address] [place] [address] Phone Care Team Providers Care Executive Pastry Chef Name Role Phone Ashkan Jacobsno MD Primary Care Provider [phone] Encounter Details Date Type Department Care Team (Late st Contact Info) Description 06/19/2021 Documentation Only [facility] [address] [place] [address] Macy Giraldo PA Social History Tobacco Use [...] Visit [facility] [address] [place] [address] Godfrey Marcum MD [address] [place] [address] [place] [address] documented as of this encounter Visit Diagnoses Not on filedocumented in this encounter Care Teams Executive Pastry Chef Relationship Specialty Start Date End Date Ashkan Jacobson MD [address] [place] [address] PCP - General 03/09/19 documented as of this encounter
--- OUTSIDE RECORDS SUMMARY | 2024-05-26 11:27 | XMS_ITS ---
Author Organization [facility] Address [address] [place] [address] Care Team Providers Care Open End Spinning Operator Name Role Phone BHUMIKA BUSTOS Unavailable [phone] REASON FOR VISIT balance Encounters Encounter Location Date Provider Diagnosis [facility] [address] [facility] [address] [place] [address] 02/25/2024 BHUMIKA BUSTOS PLAN OF TREATMENT No Information Progress Notes * Coleen BERMANsDOB: [birth year] (63 yo F)Acc No.[id number]:02/25/2024 Patient:??Rosie BERMAN :1960?Age:63 Y?Sex:Fe male Address:[address] [place] [address] * true * Date:??
--- OUTSIDE RECORDS SUMMARY | 2024-05-26 11:27 | XMS_ITS ---
Author Organization [facility] Address [address] [place] [address] Care Team Providers Care Sugarcane Planter Name Role Phone BHUMIKA BUSTOS Unavailable [phone] Encounters Encounter Location Date Provider Diagnosis [facility] [address] [place] [address] 12/04/2023 BHUMIKA BUSTOS PLAN OF TREATMENT No Information Progress Notes * Coleen BERMANsDOB: [birth year] (63 yo F)Acc No.[id number]:12/04/2023 Patient:??Rosie BERMAN :1960?Age:63 Y?Sex:Fe male Address:[address] [place] [address] * true * Date:??
--- OUTSIDE RECORDS SUMMARY | 2024-05-26 11:27 | XMS_ITS | Encounter Summary ---
Author Organization [facility] Address [address] [place] [address] Phone Care Team Providers Care Supervisor Putty And Caluking Name Role Phone Ashkan Jacobson MD Primary Care Provider [phone] Encounter Details Date Type Department Care Team (Late st Contact Info) Description 03/22/2021 Documentation Only [facility] [address] [place] [address] Macy Giraldo PA Social History Tobacco Use [...] Visit [facility] [address] [place] [address] Godfrey Marcum MD [address] [place] [address] [place] [address] documented as of this encounter Visit Diagnoses Not on filedocumented in this encounter Care Teams Supervisor Putty And Caluking Relationship Specialty Start Date End Date Ashkan Jacobson MD [address] [place] [address] 201 [place], [place] PCP - General 03/09/19 documented as of this encounter
--- OUTSIDE RECORDS SUMMARY | 2024-05-26 11:27 | XMS_ITS | Encounter Summary ---
Author Organization [facility] Address [address] [place] [address] Phone Care Team Providers Care Fish Icer Name Role Phone Ashkan Jacobson MD Primary Care Provider [phone] Encounter Details Date Type Department Care Team (Late st Contact Info) Description 09/28/2021 Documentation Only [facility] [address] [place] [address] Macy Giraldo PA Social History Tobacco Use [...] [facility] [address] [place] [address] Godfrey Marcum MD [address] [place] [address] [place] [address] documented as of this encounter Visit Diagnoses Not on filedocumented in this encounter Care Teams Fish Icer Relationship Specialty Start Date End Date Ashkan Jacobson MD [address] [place] [address] PCP - General 03/09/19 documented as of this encounter
--- OUTSIDE RECORDS SUMMARY | 2024-05-26 11:27 | XMS_ITS ---
Author Organization [facility] Address [address] [place] [address] Care Team Providers Care Manager Reading Name Role Phone BHUMIKA BUSTOS Unavailable [phone] MEDICATIONS Medication SIG (Take, Route, Fr equency, Duration) Notes Start Date End Date Status Mounjaro 5 MG/0.5ML 5mg Subcutaneous wee kly for 30 days Active Encounters Encounter Location Date Provider Diagnosis [place] [address] [address] 11/28/2023 BHUMIKA VENTURADEVINeymar Other obesity due to excess calories E66.09 ; BMI 30.0-30.9,adult Z68.30 ; Type 2 diabetes mellitus without complications E11.9 ; care home (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 insulin Z79.4 ; [...] minimum of 6 months The most recent [place] Association of clinical endocrinologists and [place] College of endocrinology guidelines recommend patients who [...] track activity level. Consider using apps like Healthkartise, myfitPAYMEYpal, lose it, stick as needed for self-monitoring and weight management. Consider group exercises. Consider hiring a personal banking representative. Regular exercise is shook to sustainable health [...] counseling and psychiatry and Dr Salamanca at [facility]. We would like to cover regular topics [...] software and direct typing Please excuse inadvertent job developer for deaf adults or typing errors, or uncorrected word substitutions Although every attempt has been made by the provider to proofread this document, occasional misspellings and typographical errors may still be present Due to the previous pandemic, and the use of personal protective equipment (PPE) This may decrease voice recognition accuracy Inadvertent job developer for deaf adults errors may occur 11/28/2023 BMI 30.0-30.9,adult (ICD-10 [...] minimum of 6 months The most recent [place] Association of clinical endocrinologists and [place] College of endocrinology guidelines recommend patients who [...] activity level. Consider using apps like The Personal Bee, myfitnesspal, lose it, stick as needed for self-monitoring and weight management. Consider group exercises. Consider hiring a personal banking representative. Regular exercise is shook to sustainable health [...] counseling and psychiatry and Dr Salamanca at [facility]. We would like to cover regular topics [...] software and direct typing Please excuse inadvertent job developer for deaf adults or typing errors, or uncorrected word substitutions Although every attempt has been made by the provider to proofread this document, occasional misspellings and typographical errors may still be present Due to the previous pandemic, and the use of personal protective equipment (PPE) This may decrease voice recognition accuracy Inadvertent job developer for deaf adults errors may occur 11/28/2023 Type 2 diabetes [...] minimum of 6 months The most recent [place] Association of clinical endocrinologists and [place] College of endocrinology guidelines recommend patients who [...] activity level. Consider using apps like The Personal Bee, myfitnesspal, lose it, stick as needed for self-monitoring and weight management. Consider group exercises. Consider hiring a personal banking representative. Regular exercise is shook to sustainable health [...] counseling and psychiatry and Dr Salamanca at [facility]. We would like to cover regular topics [...] software and direct typing Please excuse inadvertent job developer for deaf adults or typing errors, or uncorrected word substitutions Although every attempt has been made by the provider to proofread this document, occasional misspellings and typographical errors may still be present Due to the previous pandemic, and the use of personal protective equipment (PPE) This may decrease voice recognition accuracy Inadvertent job developer for deaf adults errors may occur 11/28/2023 equipment operator intermodal [...] minimum of 6 months The most recent [place] Association of clinical endocrinologists and [place] College of endocrinology guidelines recommend patients who [...] activity level. Consider using apps like The Personal Bee, Reachablepal, lose it, stick as needed for self-monitoring and weight management. Consider group exercises. Consider hiring a personal banking representative. Regular exercise is shook to sustainable health [...] counseling and psychiatry and Dr Salamanca at [facility]. We would like to cover regular topics [...] software and direct typing Please excuse inadvertent job developer for deaf adults or typing errors, or uncorrected word substitutions Although every attempt has been made by the provider to proofread this document, occasional misspellings and typographical errors may still be present Due to the previous pandemic, and the use of personal protective equipment (PPE) This may decrease voice recognition accuracy Inadvertent job developer for deaf adults errors may occur 11/28/2023 History of gastric [...] minimum of 6 months The most recent [place] Association of clinical endocrinologists and [place] College of endocrinology guidelines recommend patients who [...] books called The Food Rules by Srini Zaavleta and Eat Fat Get Lean by Dr [...] activity level. Consider using apps like The Personal Bee, Reachablepal, lose it, stick as needed for self-monitoring and weight management. Consider group exercises. Consider hiring a personal banking representative. Regular exercise is shook to sustainable health [...] counseling and psychiatry and Dr Salamanca at [facility]. We would like to cover regular topics [...] software and direct typing Please excuse inadvertent job developer for deaf adults or typing errors, or uncorrected word substitutions Although every attempt has been made by the provider to proofread this document, occasional misspellings and typographical errors may still be present Due to the previous pandemic, and the use of personal protective equipment (PPE) This may decrease voice recognition accuracy Inadvertent job developer for deaf adults errors may occur 11/28/2023 Hypothyroidism, unspecified type [...] minimum of 6 months The most recent [place] Association of clinical endocrinologists and [place] College of endocrinology guidelines recommend patients who [...] activity level. Consider using apps like The Personal Bee, myfitnesspal, lose it, stick as needed for self-monitoring and weight management. Consider group exercises. Consider hiring a personal banking representative. Regular exercise is shook to sustainable health [...] counseling and psychiatry and Dr Salamanca at [facility]. We would like to cover regular topics [...] software and direct typing Please excuse inadvertent job developer for deaf adults or typing errors, or uncorrected word substitutions Although every attempt has been made by the provider to proofread this document, occasional misspellings and typographical errors may still be present Due to the previous pandemic, and the use of personal protective equipment (PPE) This may decrease voice recognition accuracy Inadvertent job developer for deaf adults errors may occur PLAN OF TREATMENT Medication Medication Name Sig Start Date Stop Date Notes Mounjaro 5 MG/0.5ML 5mg Subcutaneous weekly for 30 days Progress Notes * Mayra BERMAN: [birth year] (63 yo F)Acc No.[id number]:11/28/2023 Patient:??Rosie BERMAN Provider:??BHUMIKA BUSTOS NP :1960?Age:63 Y?Sex:Fe male Date:11/28/2023 Address:[address] [place] [address] [id number] Subjective: * Chief Complaints: * ? 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 Had both shots ?RSV: Rx given for [...] minimum of 6 months The most recent [place] Association of clinical endocrinologists and [place] College of endocrinology guidelines recommend patients who [...] activity level. Consider using apps like The Personal Bee, Reachablepal, lose it, stick as needed for self-monitoring and weight management. Consider group exercises. Consider hiring a personal banking representative. Regular exercise is shook to sustainable health [...] counseling and psychiatry and Dr Salamanca at [facility]. We would like to cover regular topics [...] software and direct typing Please excuse inadvertent job developer for deaf adults or typing errors, or uncorrected word substitutions Although every attempt has been made by the provider to proofread this document, occasional misspellings and typographical errors may still be present Due to the previous pandemic, and the use of personal protective equipment (PPE) This may decrease voice recognition accuracy Inadvertent job developer for deaf adults errors may occur. Plan: * Treatment: * Procedure Codes:??88654 NO S HOW OFFICE VISIT * Images: Billing Information: * Visit Code:?? * Procedure Codes:?? 31514 NO SHOW OFFICE VISIT. 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 Had both shots RSV: Rx given for [...]
--- OUTSIDE RECORDS SUMMARY | 2024-05-26 11:27 | XMS_ITS | Encounter Summary ---
Author Organization [facility] Address [address] [place] [address] Phone Care Team Providers Care Manager Residential Name Role Phone Ashkan Jacobson MD Primary Care Provider Encounter Details Date Type Department Care Team (Late st Contact Info) Description 09/18/2021 Documentation Only [facility] [address] [place] [address] Macy Giraldo PA Social History Tobacco Use [...] Visit [facility] [address] [place] [address] Godfrey Marcum MD [address] [place] [address] [place] [address] documented as of this encounter Visit Diagnoses Not on filedocumented in this encounter Care Teams Manager Residential Relationship Specialty Start Date End Date Ashkan Jacobson MD [address] [place] [address] PCP - General 03/09/19 documented as of this encounter
--- OUTSIDE RECORDS SUMMARY | 2024-05-26 11:28 | XMS_ITS | Patient Health Record ---
Author Organization [facility] Address [address] [place] [address] Care Team Providers Care It Consultant Name Role Phone BHUMIKA BUSTOS Unavailable [phone] ALLERGIES Allergen (clinical drug ingredient) Drug/Non Drug [...] Note Original Orderi ng Provider: BHUMIKA BUSTOS INSPECTION CLERK TOTAL T4 8.4 4.5-10.9 ug/dl REASON FOR [...] diabetes mellitus without complications (E11.9) Active confirmed 238583269 Problem Other obesity due to excess calories (E66.09) Active confirmed 965192754 Problem medical terminologist (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 insulin (Z79.4) Active confirmed 914209138 Problem Hypothyroidism, unspecified type (E03.9) Active confirmed [id number] Problem Body mass index [BMI] 32.0-32.9, adult (Z68.32) Active confirmed 327917712 Problem BMI 31.0-31.9,adult (Z68.31) Active confirmed 930301666 Problem BMI 30.0-30.9,adult (Z68.30) Active confirmed 035001704 VITAL SIGNS Heart Rate 76 /min 10/03/2023 Oximetry 95 % 10/03/2023 Blood pressure diastolic 84 mm Hg 10/03/2023 Height 61 in 10/03/2023 Blood pressure systolic 120 mm Hg 10/03/2023 Weight 161 lbs 10/03/2023 BMI 30.42 kg/m2 10/03/2023 Encounters Encounter Location Date Provider Diagnosis [place] [address] [place]/13/[place] [address] 11/28/2023 BHUMIKA BUSTOS Other obesity due to excess calories E66.09 ; BMI 30.0-30.9,adult Z68.30 ; Type 2 diabetes mellitus without complications E11.9 ; jail (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 insulin Z79.4 ; History of gastric surgery Z98.890 and Hypothyroidism, unspecified type E03.9 [place] [address] 07/04/2023 BHUMIKA VENTURACRYSTAL Other obesity due to excess calories E66.09 ; Type 2 diabetes mellitus without complications E11.9 ; jail (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 insulin Z79.4 ; History of gastric surgery Z98.890 and BMI 31.0-31.9,adult Z68.31 [place] [address] [address] 10/03/2023 BHUMIKA AKASH Other obesity due to excess calories E66.09 ; BMI 30.0-30.9,adult Z68.30 ; Type 2 diabetes mellitus without complications E11.9 ; jail (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 insulin Z79.4 ; History of gastric surgery Z98.890 and Hypothyroidism, unspecified type E03.[address] [facility] [address] [place] [address] 08/29/2023 BHUMIKA BUSTOS [facility] [address] [facility] [address] 12/04/2023 BHUMIKA BUSTOS [facility] [address] [place] [address] 02/25/2024 BHUMIKA BUSTOS ASSESSMENTS Encounter Date Diagnosis [...] minimum of 6 months The most recent [place] [employer] clinical endocrinologists and [place] [employer] guidelines recommend patients who [...] track activity level. Consider using apps like TapToLearn, [email or web address], lose it, stick as needed for self-monitoring and weight management. Consider group exercises. Consider hiring a geriatric personal care aide. Regular exercise is shook to sustainable health [...] about local counseling and psychiatry and Dr Sal[place]na at [facility]. We would like to cover regular topics [...] software and direct typing Please excuse inadvertent sweater designer or typing errors, or uncorrected word substitutions Although every attempt has been made by the provider to proofread this document, occasional misspellings and typographical errors may still be present Due to the previous pandemic, and the use of personal protective equipment (PPE) This may decrease voice recognition accuracy Inadvertent sweater designer errors may occur 07/04/2023 Other obesity due [...] minimum of 6 months The most recent [place] [employer] clinical endocrinologists and [place] [employer] guidelines recommend patients who [...] track activity level. Consider using apps like TapToLearn, Bike HUDpal, lose it, stick as needed for self-monitoring and weight management. Consider group exercises. Consider hiring a geriatric personal care aide. Regular exercise is shook to sustainable health [...] counseling and psychiatry and Dr Salamanca at [facility]. We would like to cover regular topics [...] software and direct typing Please excuse inadvertent sweater designer or typing errors, or uncorrected word substitutions Although every attempt has been made by the provider to proofread this document, occasional misspellings and typographical errors may still be present Due to the previous pandemic, and the use of personal protective equipment (PPE) This may decrease voice recognition accuracy Inadvertent sweater designer errors may occur 10/03/2023 Other obesity due [...] minimum of 6 months The most recent [place] [employer] clinical endocrinologists and [place] [employer] guidelines recommend patients who [...] track activity level. Consider using apps like TapToLearn, Bike HUDpal, lose it, stick as needed for self-monitoring and weight management. Consider group exercises. Consider hiring a geriatric personal care aide. Regular exercise is shook to sustainable health [...] counseling and psychiatry and Dr Salamanca at [facility]. We would like to cover regular topics [...] software and direct typing Please excuse inadvertent sweater designer or typing errors, or uncorrected word substitutions Although every attempt has been made by the provider to proofread this document, occasional misspellings and typographical errors may still be present Due to the previous pandemic, and the use of personal protective equipment (PPE) This may decrease voice recognition accuracy Inadvertent sweater designer errors may occur 10/03/2023 BMI 30.0-30.9,adult (ICD-10 [...] minimum of 6 months The most recent [place] [employer] endocrinologists and [place] [employer] end[employer] guidelines recommend patients who [...] track activity level. Consider using apps like TapToLearn, myfitnesspal, lose it, stick as needed for self-monitoring and weight management. Consider group exercises. Consider hiring a geriatric personal care aide. Regular exercise is shook to sustainable health [...] counseling and psychiatry and Dr Salamanca at [facility]. We would like to cover regular topics [...] software and direct typing Please excuse inadvertent sweater designer or typing errors, or uncorrected word substitutions Although every attempt has been made by the provider to proofread this document, occasional misspellings and typographical errors may still be present Due to the previous pandemic, and the use of personal protective equipment (PPE) This may decrease voice recognition accuracy Inadvertent sweater designer errors may occur 11/28/2023 Other obesity due [...] minimum of 6 months The most recent [place] [employer] clinical endocrinologists and [place] [employer] end[employer]in[employer] guidelines recommend patients who [...] track activity level. Consider using apps like TapToLearn, Bike HUDpal, lose it, stick as needed for self-monitoring and weight management. Consider group exercises. Consider hiring a geriatric personal care aide. Regular exercise is shook to sustainable health [...] counseling and psychiatry and Dr Salamanca at [facility]. We would like to cover regular topics [...] software and direct typing Please excuse inadvertent sweater designer or typing errors, or uncorrected word substitutions Although every attempt has been made by the provider to proofread this document, occasional misspellings and typographical errors may still be present Due to the previous pandemic, and the use of personal protective equipment (PPE) This may decrease voice recognition accuracy Inadvertent sweater designer errors may occur 11/28/2023 BMI 30.0-30.9,adult (ICD-10 [...] minimum of 6 months The most recent [place] [employer] clinical endocrinologists and [place] [employer] end[employer]in[employer] guidelines recommend patients who [...] track activity level. Consider using apps like TapToLearn, Bike HUDpal, lose it, stick as needed for self-monitoring and weight management. Consider group exercises. Consider hiring a geriatric personal care aide. Regular exercise is shook to sustainable health [...] counseling and psychiatry and Dr Salamanca at [facility]. We would like to cover regular topics [...] software and direct typing Please excuse inadvertent sweater designer or typing errors, or uncorrected word substitutions Although every attempt has been made by the provider to proofread this document, occasional misspellings and typographical errors may still be present Due to the previous pandemic, and the use of personal protective equipment (PPE) This may decrease voice recognition accuracy Inadvertent sweater designer errors may occur 10/03/2023 Type 2 diabetes [...] minimum of 6 months The most recent [place] [employer] clinical endocrinologists and [place] [employer] end[employer]inology guidelines recommend patients who [...] track activity level. Consider using apps like TapToLearn, Bike HUDpal, lose it, stick as needed for self-monitoring and weight management. Consider group exercises. Consider hiring a geriatric personal care aide. Regular exercise is shook to sustainable health [...] counseling and psychiatry and Dr Salamanca at [facility]. We would like to cover regular topics [...] software and direct typing Please excuse inadvertent sweater designer or typing errors, or uncorrected word substitutions Although every attempt has been made by the provider to proofread this document, occasional misspellings and typographical errors may still be present Due to the previous pandemic, and the use of personal protective equipment (PPE) This may decrease voice recognition accuracy Inadvertent sweater designer errors may occur 07/04/2023 jail (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 insulin (ICD-10 - Z79.4) [...] minimum of 6 months The most recent [place] [employer] clinical endocrinologists and [place] [employer] end[employer]in[employer] guidelines recommend patients who [...] track activity level. Consider using apps like TapToLearn, [email or web address], lose it, stick as needed for self-monitoring and weight management. Consider group exercises. Consider hiring a geriatric personal care aide. Regular exercise is shook to sustainable health [...] counseling and psychiatry and Dr Salamanca at [facility]. We would like to cover regular topics [...] software and direct typing Please excuse inadvertent sweater designer or typing errors, or uncorrected word substitutions Although every attempt has been made by the provider to proofread this document, occasional misspellings and typographical errors may still be present Due to the previous pandemic, and the use of personal protective equipment (PPE) This may decrease voice recognition accuracy Inadvertent sweater designer errors may occur 07/04/2023 History of gastric [...] minimum of 6 months The most recent [place] [employer] clinical endocrinologists and [place] [employer] end[employer]in[employer] guidelines recommend patients who [...] track activity level. Consider using apps like TapToLearn, myfitnesspal, lose it, stick as needed for self-monitoring and weight management. Consider group exercises. Consider hiring a geriatric personal care aide. Regular exercise is shook to sustainable health [...] counseling and psychiatry and Dr Salamanca at [facility]. We would like to cover regular topics [...] software and direct typing Please excuse inadvertent sweater designer or typing errors, or uncorrected word substitutions Although every attempt has been made by the provider to proofread this document, occasional misspellings and typographical errors may still be present Due to the previous pandemic, and the use of personal protective equipment (PPE) This may decrease voice recognition accuracy Inadvertent sweater designer errors may occur 10/03/2023 jail (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 insulin (ICD-10 - Z79.4) [...] minimum of 6 months The most recent [place] [employer] clinical endocrinologists and [place] [employer] end[employer]in[employer] guidelines recommend patients who [...] track activity level. Consider using apps like TapToLearn, Bike HUDpal, lose it, stick as needed for self-monitoring and weight management. Consider group exercises. Consider hiring a geriatric personal care aide. Regular exercise is shook to sustainable health [...] counseling and psychiatry and Dr Salamanca at [facility]. We would like to cover regular topics [...] software and direct typing Please excuse inadvertent sweater designer or typing errors, or uncorrected word substitutions Although every attempt has been made by the provider to proofread this document, occasional misspellings and typographical errors may still be present Due to the previous pandemic, and the use of personal protective equipment (PPE) This may decrease voice recognition accuracy Inadvertent sweater designer errors may occur 11/28/2023 Type 2 diabetes [...] minimum of 6 months The most recent [place] [employer] clinical endocrinologists and [place] [employer] end[employer]in[employer] guidelines recommend patients who [...] track activity level. Consider using apps like TapToLearn, [email or web address], lose it, stick as needed for self-monitoring and weight management. Consider group exercises. Consider hiring a geriatric personal care aide. Regular exercise is shook to sustainable health [...] counseling and psychiatry and Dr Salamanca at [facility]. We would like to cover regular topics [...] software and direct typing Please excuse inadvertent sweater designer or typing errors, or uncorrected word substitutions Although every attempt has been made by the provider to proofread this document, occasional misspellings and typographical errors may still be present Due to the previous pandemic, and the use of personal protective equipment (PPE) This may decrease voice recognition accuracy Inadvertent sweater designer errors may occur 10/03/2023 History of gastric [...] minimum of 6 months The most recent [place] [employer] clinical endocrinologists and [place] [employer] end[employer]in[employer] guidelines recommend patients who [...] track activity level. Consider using apps like TapToLearn, Bike HUDpal, lose it, stick as needed for self-monitoring and weight management. Consider group exercises. Consider hiring a geriatric personal care aide. Regular exercise is shook to sustainable health [...] counseling and psychiatry and Dr Salamanca at [facility]. We would like to cover regular topics [...] software and direct typing Please excuse inadvertent sweater designer or typing errors, or uncorrected word substitutions Although every attempt has been made by the provider to proofread this document, occasional misspellings and typographical errors may still be present Due to the previous pandemic, and the use of personal protective equipment (PPE) This may decrease voice recognition accuracy Inadvertent sweater designer errors may occur 07/04/2023 BMI 31.0-31.9,adult (ICD-10 [...] minimum of 6 months The most recent [place] [employer] clinical endocrinologists and [place] [employer] end[employer]in[employer] guidelines recommend patients who [...] track activity level. Consider using apps like TapToLearn, [email or web address], lose it, stick as needed for self-monitoring and weight management. Consider group exercises. Consider hiring a geriatric personal care aide. Regular exercise is shook to sustainable health [...] counseling and psychiatry and Dr Salamanca at [facility]. We would like to cover regular topics [...] software and direct typing Please excuse inadvertent sweater designer or typing errors, or uncorrected word substitutions Although every attempt has been made by the provider to proofread this document, occasional misspellings and typographical errors may still be present Due to the previous pandemic, and the use of personal protective equipment (PPE) This may decrease voice recognition accuracy Inadvertent sweater designer errors may occur 11/28/2023 medical terminologist (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 insulin (ICD-10 - Z79.4) [...] minimum of 6 months The most recent [place] [employer] of clinical endocrinologists and [place] [employer] end[employer]in[employer] guidelines recommend patients who [...] track activity level. Consider using apps like BiondVaxise, myfitnesspal, lose it, stick as needed for self-monitoring and weight management. Consider group exercises. Consider hiring a geriatric personal care aide. Regular exercise is shook to sustainable health [...] counseling and psychiatry and Dr Salamanca at [facility]. We would like to cover regular topics [...] software and direct typing Please excuse inadvertent sweater designer or typing errors, or uncorrected word substitutions Although every attempt has been made by the provider to proofread this document, occasional misspellings and typographical errors may still be present Due to the previous pandemic, and the use of personal protective equipment (PPE) This may decrease voice recognition accuracy Inadvertent sweater designer errors may occur 11/28/2023 History of gastric [...] minimum of 6 months The most recent [place] [employer] of clinical endocrinologists and [place] [employer] end[employer]inology guidelines recommend patients who [...] track activity level. Consider using apps like TapToLearn, Bike HUDpal, lose it, stick as needed for self-monitoring and weight management. Consider group exercises. Consider hiring a geriatric personal care aide. Regular exercise is shook to sustainable health [...] counseling and psychiatry and Dr Salamanca at [facility]. We would like to cover regular topics [...] software and direct typing Please excuse inadvertent sweater designer or typing errors, or uncorrected word substitutions Although every attempt has been made by the provider to proofread this document, occasional misspellings and typographical errors may still be present Due to the previous pandemic, and the use of personal protective equipment (PPE) This may decrease voice recognition accuracy Inadvertent sweater designer errors may occur 11/28/2023 Hypothyroidism, unspecified type [...] minimum of 6 months The most recent [place] [employer] clinical endocrinologists and [place] [employer] end[employer]inology guidelines recommend patients who [...] track activity level. Consider using apps like TapToLearn, Bike HUDpal, lose it, stick as needed for self-monitoring and weight management. Consider group exercises. Consider hiring a geriatric personal care aide. Regular exercise is shook to sustainable health [...] counseling and psychiatry and Dr Salamanca at [facility]. We would like to cover regular topics [...] software and direct typing Please excuse inadvertent sweater designer or typing errors, or uncorrected word substitutions Although every attempt has been made by the provider to proofread this document, occasional misspellings and typographical errors may still be present Due to the previous pandemic, and the use of personal protective equipment (PPE) This may decrease voice recognition accuracy Inadvertent sweater designer errors may occur 10/03/2023 Hypothyroidism, unspecified type [...] minimum of 6 months The most recent [place] [employer] of clinical endocrinologists and [place] [employer] end[employer]inology guidelines recommend patients who [...] track activity level. Consider using apps like TapToLearn, Bike HUDpal, lose it, stick as needed for self-monitoring and weight management. Consider group exercises. Consider hiring a geriatric personal care aide. Regular exercise is shook to sustainable health [...] counseling and psychiatry and Dr Salamanca at [facility]. We would like to cover regular topics [...] software and direct typing Please excuse inadvertent sweater designer or typing errors, or uncorrected word substitutions Although every attempt has been made by the provider to proofread this document, occasional misspellings and typographical errors may still be present Due to the previous pandemic, and the use of personal protective equipment (PPE) This may decrease voice recognition accuracy Inadvertent sweater designer errors may occur PLAN OF TREATMENT Pending Test Test Name Order Date HEMOGLOBIN A1C 10/03/2023 T4, TOTAL 10/03/2023 TSH 10/03/2023 Insurance Providers Payer Name Payer Address Payer Phone Subscriber Number Group Number Insured Name Patient Relationship to Insured Coverage Start Date Coverage End Date [employer] or Options [address] [place] [id number] Rosie Grimm Self - patient is the insured 3 MEDICAL (GENERAL) HISTORY Medical History History ICD Code Hypothyroidism type II diabetes hydronephrosis Surgical History Surgery Date(Month/Year) hysterectomy left knee replacement right knee replacement hydroneprosis
== END 2024-05-26 12:40 | disposition home or self-care (01) ==
PROVIDERS: PCP Internal Medicine; Visit Provider Urology
DX: N13.30 Unspecified hydronephrosis (principal); Z13.9 Encounter for screening, unspecified; Z96.0 Presence of urogenital implants
CPT/HCPCS: 52310; 99213

== ENCOUNTER → 2024-05-26 10:23 | Outpatient (BNVA) | payer OTHER, SELFPAY | PROVIDERS: PCP Internal Medicine; Visit Provider Urology | DX: N13.30 Unspecified hydronephrosis (principal) | CPT/HCPCS: 52310; 81003; 99212 ==

== ENCOUNTER 2024-06-01 15:07 | Emergency (ER) | payer OTHER, SELFPAY ==
--- NOTE | ~2024-06-01 | CT_ITS ---
EXAMINATION: CT ABDOMEN AND PELVIS WITHOUT CONTRAST CLINICAL INFORMATION: Right flank pain. COMPARISON: 05/11/2024. TECHNIQUE: Multidetector volumetric imaging was performed from the superior aspect of the liver through the pubic symphysis. Sagittal and coronal reformatted images were obtained on the technologist's workstation. This CT examination was performed using dose optimization techniques as appropriate, variously including the following: *Automated exposure control *Adjustment of mA and/or kV according to patient size (this includes techniques or standardized protocols for targeted exams where dose is matched to indication/reason for exam; i.e. extremities or head) *Use of iterative reconstruction technique FINDINGS: LUNG BASES: Lung bases demonstrate mild right medial lower lobe scarring and mild dependent atelectasis bilaterally. The heart size is normal. No pericardial effusion or pleural effusion. Small hiatus hernia likely present. LIVER, GALLBLADDER, AND BILIARY TREE: The liver is normal in size, shape, and attenuation. No focal hepatic lesion or biliary ductal dilatation is present. The gallbladder is surgically absent. PANCREAS: Normal unenhanced appearance. SPLEEN: Unremarkable. ADRENAL GLANDS: No significant interval change in the left-sided 1.7 cm adrenal mass , most likely incidental adenoma but indeterminate. Right adrenal is normal. KIDNEYS AND URETERS: -Multiple bilateral renal cysts again noted including a 5.7 cyst of the upper pole right kidney, 9.8 cm cyst lower pole right kidney, a 7.3 cm cyst at the upper pole of the left kidney and a 4.6 cm cyst lower pole of the left kidney. -There is moderate right hydronephrosis and hydroureter, without evidence of obstructing calculus evident. The ureter is dilated to just above the UVJ. -The left ureter is normal in caliber. No left-sided hydronephrosis. BLADDER: Poorly distended but grossly normal. GASTROINTESTINAL TRACT: -No acute findings. -There has been prior gastric sleeve surgery. Small hiatus hernia. -Normal duodenum and small bowel. -No acute colonic abnormalities. Mild diverticulosis again noted. -Normal appendix. ABDOMINAL WALL: No significant hernia is appreciated. LYMPH NODES: Similar enlarged left external iliac lymph node measuring 1.4 cm short axis. VASCULAR: Unremarkable. PELVIC VISCERA: There has been a hysterectomy. No adnexal masses. OSSEOUS STRUCTURES: No suspicious bony abnormalities. Mild diffuse disc bulges present at L3-4 and L4-5. CT/CT abdomen pelvis wo IV con IMPRESSION: 1. Moderate right hydroureteronephrosis with abrupt tapering to normal caliber just above the UVJ. Compared with the recent exam, the degree of hydronephrosis and hydroureter has improved. No obstructing calculus is identified. Neoplasm is not excluded, and cystoscopy with a retrograde study of the ureter is again recommended. 2. 1.7 cm indeterminate left adrenal nodule. In the absence of a known primary malignancy, this likely represents an adenoma. If there is a known primary malignancy, adrenal protocol CT is recommended. 3. There is a similar 1.4 cm short axis left external iliac lymph node. Electronically signed by: Jae Isidro MD 06/01/2024 05:02 PM LINDA LAMAR
[2024-06-01 15:27] VITALS: BP 134/82; PULSE 95; RESP 16; TEMP 37; O2SAT 97; BMI 30.2
--- NOTE | 2024-06-01 15:31 | ED_ITS ---
HPI - Abdominal Pain General Chief Complaint: Abdominal Pain Stated Complaint: Abd pain, history of kidney issues Time Seen by Provider: 06/01/24 19:22 Source: patient Mode of arrival: ambulatory Limitations: no limitations History of Present Illness ED Provider: HPI narrative: Patient's history of chronic right ureteric stricture since childhood had multiple times ureteric stent placed in [place] last ureteric stent was placed here by urologist Dr. Bloom on 05/12/2024 which was removed on 05/26/2024 patient better 3 days and then again pain started right flank area with nausea no hematuria no urinary complaints Related Data Home Medications ?Medication ?Instructions ?Recorded ?Confirmed amlodipine 10 mg tablet 10 mg PO DAILY 02/05/20 05/17/24 fluticasone propionate 50 1 spray intranasal DAILY PRN nasal 07/19/20 05/17/24 mcg/actuation nasal congestion spray,suspension blood sugar diagnostic 08/29/22 05/17/24 blood-glucose meter (OneTouch #1 ea 08/29/22 05/17/24 Ultra2 Meter) fluoxetine 40 mg capsule 40 mg PO DAILY 08/29/22 05/17/24 trazodone 50 mg tablet 50 - 150 mg PO BEDTIME PRN Sleep 08/29/22 05/17/24 lisinopril 40 mg tablet 40 mg PO DAILY 01/28/24 05/17/24 metoprolol succinate 50 mg 50 mg PO DAILY 01/28/24 05/17/24 tablet,extended release 24 hr tirzepatide 2.5 mg/0.5 mL 2.5 mg subcut MO 05/11/24 05/17/24 subcutaneous pen injector (Negin) Previous Rx's ?Medication ?Instructions ?Recorded lancets #100 ea 08/20/22 pen needle, diabetic 32 gauge x #30 ea 08/30/2209/17 (Comfort EZ Pen [place]) blood sugar diagnostic (OneTouch #100 ea 09/16/22 Ultra Test strips) sennosides 8.6 mg tablet (senna) 8.6 mg PO DAILY #90 tabs 12/03/22 flash glucose sensor (FreeStyle #2 ea 02/20/23 Jame 2 Sensor kit) docusate sodium 100 mg capsule 100 mg PO BID #90 caps 01/19/24 FreeStyle Jame 2 [place] (flash #1 ea 01/28/24 glucose scanning reader) cefuroxime axetil 500 mg tablet 500 mg PO BID #20 tabs 05/13/24 oxycodone 5 mg tablet 5 mg PO Q6H PRN pain #20 tabs 06/01/24 Allergies Allergy/AdvReac Type Severity Reaction Status Date / Time latex [LATEX] Allergy Mild RASH Verified 06/01/24 15:31 metformin AdvReac Unknown Verified 06/01/24 15:31 Review of Systems Review of Systems Yes all other systems are reviewed and are negative [facility] Past Medical History Medical History Anxiety Depression GERD (gastroesophageal reflux disease) COVID-19 vaccine series completed Tachycardia Toxic multinodul goiter Chronic renal insufficiency Nephrolithiasis Cyst, kidney, acquired Diabetic neuropathy BMI 34.0-34.9,adult BMI 35.0-35.9,adult BMI 36.0-36.9,adult Pre-op evaluation B12 deficiency Obesity (BMI 30-39.9) Non-toxic multinodular goiter Dyslipidemia Diabetic 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 with type 2 diabetes mellitus 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 Distal radius fracture, right HTN (hypertension) Chronic kidney disease Diabetes type 2, uncontrolled Surgical History History of surgery S/P fine needle aspiration S/P laparoscopic sleeve gastrectomy History of esophagogastroduodenoscopy (EGD) H/O colonoscopy Hx of biopsy History of partial hysterectomy History of total right knee replacement History of total left knee replacement (~2010) Hx of cholecystectomy History of section History of carpal tunnel release (~2017) Family History Family History Father Hypertension Diabetes History of kidney cancer Mother Diabetes Hypertension Heart disease Brother Hypertension Diabetes Brother No problems noted. Son Hypertension Prediabetes Heart disease Daughter Prediabetes Social History Social History Household Members: Spouse Housing: Apartment Are you a primary personal carer to a significant other at home: No Do you presently have visiting nurse or other home services: No Alcohol intake: never Patient Tobacco Use Status: Never used Tobacco Smoked in Last 30 Days: No Use of substances other than those prescribed or required for medical reasons: No Advance Directives: No Advance Directives Information Provided: No service: No Physical Exam ED Vital Signs: Vital Signs - 24 hr 06/01/24 15:27 06/01/24 19:16 06/01/24 19:59 Temperature 98.6 F 97.9 F Pulse Rate 95 76 Respiratory Rate 16 16 18 Blood Pressure 134/82 129/79 Pulse Oximetry 97 97 Oxygen Delivery Method Room Air Room Air 06/01/24 20:29 06/01/24 20:58 06/01/24 21:22 Temperature 98 F 98 F Pulse Rate 75 75 Respiratory Rate 16 16 16 Blood Pressure 137/82 137/82 Pulse Oximetry 96 96 Oxygen Delivery Method Room Air Room Air BMI result Body Mass Index 30.2 Appearance: Alert. Oriented X3. No acute distress. Eyes no pallor or icterus ENT: Pharynx normal. Oral Mucosa moist Neck: Normal inspection. Neck supple. CVS: Normal heart rate and rhythm. Pulses normal. Respiratory: No respiratory distress. Equal air entry bilateral, no wheezing/rales/rhonchi Abdomen: Soft and nontender. Bowel sounds are present, no mass palpable, R CVA tenderness Skin: Skin warm and dry. Normal skin color. Normal skin turgor. Extremities: No lower extremity edema. No calf tenderness Neuro: Oriented X 3. No motor deficit. Course Course Course Narrative: This is an RME: Additional HPI, ROS, PE not included below will be deferred to primary provider. RME assessment and note performed by: Carlotta Lees PA-C This is a [id number] speaking female, a history of polycystic kidneys, DM, and nephrosis presenting to the emergency department today with right sided flank pain. She was seen on May 11, 2024, and was admitted due to hydronephrosis with obstruction, had stents placed, removed on 05/26/2024. Plan: labs, ct abd/pelvis, further ER eval needed Medical Decision Making Medical Decision Making MDM Narrative: Patient with right ureteric stricture causing the right hydronephrosis for many years patient was seen by Dr. Bloom and stent was placed and removed case discussed with Dr. De La Vega urologist plan to see her in the office for operative procedure patient is feeling much better at this time after taking oxycodone will discharge patient home on oxycodone. Patient's labs are stable Differential Diagnosis Differential Diagnoses: The differential diagnosis associated with the presentation includes Lab Data MDM Lab Attestation statement: I reviewed the patient's lab results. 06/01/24 18:37 06/01/24 18:37 Labs: Lab Results 06/01/24 06/01/24 Range/Units 18:37 20:03 WBC 11.1 H (4.8-10.8) X10*3/uL RBC 5.21 (4.20-5.50) X10*6/uL Hgb 14.4 (12.0-16.0) g/dl Hct 44.3 (37.0-47.0) % MCV 85.0 (80.0-98.0) fL MCH 27.6 (27.0-33.0) pg MCHC 32.5 (31.0-35.0) g/dl RDW 13.6 (11.0-16.0) % Plt Count 234 (160-400) X10*3/uL MPV 11.8 (9.4-12.3) fL Immature Gran % (Auto) 0.4 (0.0-0.4) % Neut % (Auto) 57.9 (45-73) % Lymph % (Auto) 28.7 (20-40) % [place] % (Auto) 10.4 (2-11) % Eos % (Auto) 2.1 (0-4) % Baso % (Auto) 0.5 (0-2) % Lymph # (Auto) 3.2 (1.2-4.9) X10*3/uL [place] # (Auto) 1.2 (0.1-1.2) X10*3/uL Eos # (Auto) 0.2 (0.0-0.4) X10*3/uL Baso # (Auto) 0.1 (0.0-0.2) X10*3/uL Abs Immat Gran (auto) 0.04 H (0.00-0.03) X10*3/uL Absolute Neuts (auto) 6.4 (2.0-8.3) x10*3/uL Absolute Nucleated RBC 0.000 (0.0-0.012) X10*3/uL Nucleated RBC % (auto) 0.0 (0.0-0.2) /100WBC Sodium 145 (135-145) mmol/L Potassium 4.0 (3.3-5.1) mmol/L Chloride 108 (96-108) mmol/L Carbon Dioxide 26 (22-29) mmol/L Anion Gap 15 (12-20) BUN 24 H (9-16) mg/dL Creatinine 1.28 (0.5-1.4) mg/dL Estim Creat Clear Calc 41.5 Estimated GFR 42 Random Glucose 98 (60-115) mg/dL Calcium 9.7 (8.4-10.2) mg/dL Total Bilirubin 0.6 (0.0-1.0) mg/dL Direct Bilirubin 0.1 (0.0-0.5) mg/dL AST 19 (5-31) U/L ALT 17 (0-31) U/L Alkaline Phosphatase 87 (39-117) U/L Total Protein 8.2 H (6.5-8.0) g/dL Albumin 4.6 (3.5-5.0) g/dL Lipase 34 (8-78) U/L Urine Color Yellow Urine Appearance Clear Urine pH 5.0 (5.0-9.0) Ur Specific [place] 1.015 (1.005-1.025) Urine Protein Negative (Neg-Trace) mg/dL Urine Glucose (UA) Negative (Negative) mg/dL Urine Ketones Negative (Negative) mg/dL Urine Blood Negative (Negative) Urine Nitrite Negative (Negative) Ur Leukocyte Esterase Negative (Negative) Independent Interpretation I performed an independent interpretation of an: CT Scan Radiology Impression Discussion of test interpretation with radiology: I have reviewed the radiologist's reading. Radiologist Impression: CT/CT abdomen pelvis wo IV con IMPRESSION: 1. Moderate right hydroureteronephrosis with abrupt tapering to normal caliber just above the UVJ. Compared with the recent exam, the degree of hydronephrosis and hydroureter has improved. No obstructing calculus is identified. Neoplasm is not excluded, and cystoscopy with a retrograde study of the ureter is again recommended. 2. 1.7 cm indeterminate left adrenal nodule. In the absence of a known primary malignancy, this likely represents an adenoma. If there is a known primary malignancy, adrenal protocol CT is recommended. 3. There is a similar 1.4 cm short axis left external iliac lymph node. Electronically signed by: Jae Isidro MD 06/01/2024 05:02 PM [facility] Medications Administered Discontinued Medications Generic Name Dose Route Start Last Admin Trade Name Freq PRN Reason Stop Dose Admin Morphine Sulfate 4 mg 06/01/24 19:30 06/01/24 19:59 Morphine Sulfate 4 Mg/Ml Cartridge IVPUSH 06/01/24 19:31 4 mg ONCE ONE Administration Protocol Ondansetron HCl 4 mg 06/01/24 19:35 06/01/24 19:59 Ondansetron Hcl 4 Mg/2 Ml Vial IVPUSH 06/01/24 19:36 4 mg ONCE ONE Administration Discharge Plan Discharge Clinical Impression: Stricture of right ureter Patient Disposition: Home, Self-Care Instructions: Hydronephrosis (ED) Additional Instructions: You have a stricture of the right ureter Need to follow up with urologist for further management Plan to have reconstructive surgery/stent replacement Urologist office will call you tomorrow for future plan Take pain medication as prescribed Prescriptions: New oxycodone 5 mg tablet 5 mg PO Q6H PRN (Reason: pain) Qty: 20 0RF Rx Instructions: Partial Fill upon patient request. No Action (DME) pen needle, diabetic [Comfort EZ Pen [place]] 32 gauge x 5/16 needle See Rx Instructions .Route Qty: 30 5RF Rx Instructions: As directed injects once a day (DME) OneTouch Ultra Test Strip See Rx Instructions .Route Qty: 100 4RF Rx Instructions: As directed 3 times a day (DME) FreeStyle Jame 2 Sensor Kit See Rx Instructions .ROUTE .COMPLEX Qty: 2 2RF Dose Instruction: USE DIRECTED TO TEST BLOOD SUGAR. CHANGE EVERY 10 DAYS Rx Instructions: USE DIRECTED TO TEST BLOOD SUGAR. CHANGE EVERY 10 DAYS docusate sodium 100 mg capsule 100 mg PO BID Qty: 90 3RF (DME) lancets Misc See Rx Instructions .Route Qty: 100 0RF Rx Instructions: As directed Mounjaro 2.5 mg/0.5 mL pen injector 2.5 mg subcut MO Rx Instructions: for 4 weeks cefuroxime axetil 500 mg tablet 500 mg PO BID Qty: 20 0RF amlodipine 10 mg tablet 10 mg PO DAILY fluticasone propionate 50 mcg/actuation spray,suspension 1 spray intranasal DAILY PRN (Reason: nasal congestion) sennosides [senna] 8.6 mg tablet 8.6 mg PO DAILY Qty: 90 1RF (DME) blood-glucose meter [OneTouch Ultra2 Meter] Misc See Rx Instructions .ROUTE DIRECTED Qty: 1 Rx Instructions: As directed (DME) blood sugar diagnostic Strip See Rx Instructions .Route Rx Instructions: As directed trazodone 50 mg tablet 50 - 150 mg PO BEDTIME PRN (Reason: Sleep) fluoxetine 40 mg capsule 40 mg PO DAILY metoprolol succinate 50 mg tablet extended release 24 hr 50 mg PO DAILY lisinopril 40 mg tablet 40 mg PO DAILY (DME) FreeStyle Jame 2 [place] Misc See Rx Instructions .Route Qty: 1 0RF Rx Instructions: As directed Referrals: Renato Bloom MD [Physician] - 2 days Interventions: ED Discharge Assessment Last Done: 06/01/24 21:22 Discharge Date/Time: 06/01/24 21:22 Print Language: Bermudian
[2024-06-01 18:42] LABS: MANUAL DIFF FLAG NO
[2024-06-01 18:43] LABS: Basophils Absolute Auto 0.1 X10*3/uL (0.0-0.2); Basophils Percent Auto 0.5 % (0-2); Eosinophils Absolute Auto 0.2 X10*3/uL (0.0-0.4); Eosinophils Percent Auto 2.1 % (0-4); Hematocrit 44.3 % (37.0-47.0); Hemoglobin 14.4 g/dl (12.0-16.0); Imm Gran Abs Auto 0.04 X10*3/uL (0.00-0.03); Imm Gran Pct Auto 0.4 % (0.0-0.4); Lymphocytes Absolute Auto 3.2 X10*3/uL (1.2-4.9); Lymphocytes Percent Auto 28.7 % (20-40); Mean Corpuscular HGB Conc 32.5 g/dl (31.0-35.0); Mean Corpuscular Hemoglobin 27.6 pg (27.0-33.0); Mean Platelet Volume 11.8 fL (9.4-12.3); Monocytes Absolute Auto 1.2 X10*3/uL (0.1-1.2); Monocytes Percent Auto 10.4 % (2-11); Neutrophils Absolute Auto 6.4 x10*3/uL (2.0-8.3); Neutrophils Percent Auto 57.9 % (45-73); Platelet Count 234 X10*3/uL (160-400); Red Blood Count 5.21 X10*6/uL (4.20-5.50); Red Cell Distribution Width 13.6 % (11.0-16.0); White Blood Count 11.1 X10*3/uL (4.8-10.8)
[2024-06-01 18:57] LABS: Alanine Aminotransferase 17 U/L (0-31); Albumin Level 4.6 g/dL (3.5-5.0); Alkaline Phosphatase 87 U/L (39-117); Anion Gap 15 (12-20); Aspartate Amino Transferase 19 U/L (5-31); Bilirubin Direct 0.1 mg/dL (0.0-0.5); Bilirubin Total 0.6 mg/dL (0.0-1.0); Blood Urea Nitrogen 24 mg/dL (9-16); Calcium 9.7 mg/dL (8.4-10.2); Carbon Dioxide 26 mmol/L (22-29); Chloride 108 mmol/L (96-108); Creatinine Clr Calc Pharmacy 41.5; Estimated Glomerular Filt Rate 42; Glucose Random 98 mg/dL (60-115); Lipase 34 U/L (8-78); Sodium 145 mmol/L (135-145); Total Protein 8.2 g/dL (6.5-8.0)
[2024-06-01 19:16] VITALS: BP 129/79; PULSE 76; RESP 16; TEMP 36.6; O2SAT 97
--- OUTSIDE RECORDS SUMMARY | 2024-06-01 19:36 | XMS_ITS | Encounter Summary ---
Author Organization [facility] Address [address] [place] [address] Phone Care Team Providers Care Making Machine Operator Name Role Phone Ashkan Jacobson MD Primary Care Provider [phone] Encounter Details Date Type Department Care Team (Late st Contact Info) Description 12/18/2021 Documentation Only [facility] [address] [place] [phone] Macy Giraldo PA Social History Tobacco Use [...] [facility] [address] [place] [phone] Godfrey Marcum MD [address] [place] [address] [place] [phone] documented as of this encounter Visit Diagnoses Not on filedocumented in this encounter Care Teams Making Machine Operator Relationship Specialty Start Date End Date Ashkan Jacobson MD [address] [place] [address] PCP - General 03/09/19 documented as of this encounter
--- OUTSIDE RECORDS SUMMARY | 2024-06-01 19:36 | XMS_ITS | Encounter Summary ---
Author Organization [facility] Address [address] [place] [address] Phone Care Team Providers Care Real Estate Inspector Name Role Phone Ashkan Jacobson MD Primary Care Provider [phone] Encounter Details Date Type Department Care Team (Late st Contact Info) Description 09/28/2021 Documentation Only [facility] [address] [place] [phone] Macy Giraldo PA Social History Tobacco Use [...] Visit [facility] [address] [place] [phone] Godfrey Marcum MD [address] [place] [address] [place] [phone] documented as of this encounter Visit Diagnoses Not on filedocumented in this encounter Care Teams Real Estate Inspector Relationship Specialty Start Date End Date Ashkan Jacobson MD [address] [place] [address] PCP - General 03/09/19 documented as of this encounter
--- OUTSIDE RECORDS SUMMARY | 2024-06-01 19:36 | XMS_ITS | Encounter Summary ---
Author Organization [facility] Address [address] [place] [address] Phone Care Team Providers Care Space Technologist Name Role Phone Ashkan Jacobson MD Primary Care Provider [phone] Encounter Details Date Type Department Care Team (Late st Contact Info) Description 04/04/2022 Documentation Only [facility] [address] [place] [phone] Macy Giraldo PA Social History Tobacco Use [...] Visit [facility] [address] [place] [place] [phone] Godfrey Marcum MD [address] [place] [address] [place] [phone] documented as of this encounter Visit Diagnoses Not on filedocumented in this encounter Care Teams Space Technologist Relationship Specialty Start Date End Date Ashkan Jacobson MD [address] [place] [address] PCP - General 03/09/19 documented as of this encounter
--- OUTSIDE RECORDS SUMMARY | 2024-06-01 19:36 | XMS_ITS ---
Author Organization [facility] Address [address] [place] [address] Care Team Providers Care House Registry Rn Name Role Phone BHUMIKA BUSTOS Unavailable [phone] Encounters Encounter Location Date Provider Diagnosis [facility] [address] [place] [address] 12/04/2023 BHUMIKA BUSTOS PLAN OF TREATMENT No Information Progress Notes * Coleen BERMANsDOB: [birth year] (63 yo F)Acc No.[id number]:12/04/2023 Patient:??Rosie BERMAN :1960?Age:63 Y?Sex:Fe male Address:[address] [place] [address] * true * Date:??
--- OUTSIDE RECORDS SUMMARY | 2024-06-01 19:36 | XMS_ITS | Patient Health Record ---
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) Active confirmed 381700978 Problem Hypothyroidism, unspecified type (E03.9) Active confirmed 27242206 Problem Body mass index [BMI] 32.0-32.9, adult (Z68.32) Active confirmed 325472923 Problem BMI 31.0-31.9,adult (Z68.31) Active confirmed 277731003 Problem BMI 30.0-30.9,adult (Z68.30) Active confirmed 788341112 VITAL SIGNS Heart Rate 76 /min 10/03/2023 Oximetry 95 % 10/03/2023 Blood pressure diastolic 84 mm Hg 10/03/2023 Height 61 in 10/03/2023 Blood pressure systolic 120 mm Hg 10/03/2023 Weight 161 lbs 10/03/2023 BMI 30.42 kg/m2 10/03/2023 Encounters Encounter Location Date Provider Diagnosis [place] [id number] 08/13/2023 [place] [address] 11/28/2023 BHUMIKA BUSTOS Other obesity due to excess calories E66.09 ; BMI 30.0-30.9,adult Z68.30 ; Type 2 diabetes mellitus without complications E11.9 ; penitentiary (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 insulin Z79.4 ; History of gastric surgery Z98.890 and Hypothyroidism, unspecified type E03.9 [place] [id number] 07/04/2023 BHUMIKA VENTURACRYSTAL Other obesity due to excess calories E66.09 ; Type 2 diabetes mellitus without complications E11.9 ; penitentiary (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 insulin Z79.4 ; History of gastric surgery Z98.890 and BMI 31.0-31.9,adult Z68.31 [place] [address] [address] 10/03/2023 BHUMIKA AKASH Other obesity due to excess calories E66.09 ; BMI 30.0-30.9,adult Z68.30 ; Type 2 diabetes mellitus without complications E11.9 ; penitentiary (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 insulin Z79.4 ; History of gastric surgery Z98.890 and Hypothyroidism, unspecified type E03.[address] [facility] [address] [place] [address] 08/29/2023 BHUMIKA BUSTOS [facility] [address] [facility] [place] [address] 12/04/2023 BHUMIKA BUSTOS [facility] [address] [place] [address] 02/25/2024 BHUMIKA BUSTOS ASSESSMENTS Encounter Date Diagnosis [...] minimum of 6 months The most recent [place] Association of clinical endocrinologists and [place] [employer] of endocrinology guidelines recommend patients who [...] track activity level. Consider using apps like [employer], myfitAmberAdspal, lose it, stick as needed for self-monitoring and weight management. Consider group exercises. Consider hiring a personal driver. Regular exercise is shook to sustainable health [...] counseling and psychiatry and Dr Salamanca at [facility]. We would like to cover regular topics [...] software and direct typing Please excuse inadvertent hazardous materials waste technician or typing errors, or uncorrected word substitutions Although every attempt has been made by the provider to proofread this document, occasional misspellings and typographical errors may still be present Due to the previous pandemic, and the use of personal protective equipment (PPE) This may decrease voice recognition accuracy Inadvertent hazardous materials waste technician errors may occur 07/04/2023 Other obesity due [...] minimum of 6 months The most recent [place] Association of clinical endocrinologists and [place] [employer] of endocrinology guidelines recommend patients who [...] track activity level. Consider using apps like [employer], [email or web address], lose it, stick as needed for self-monitoring and weight management. Consider group exercises. Consider hiring a personal driver. Regular exercise is shook to sustainable health [...] counseling and psychiatry and Dr Salamanca at [facility]. We would like to cover regular topics [...] software and direct typing Please excuse inadvertent hazardous materials waste technician or typing errors, or uncorrected word substitutions Although every attempt has been made by the provider to proofread this document, occasional misspellings and typographical errors may still be present Due to the previous pandemic, and the use of personal protective equipment (PPE) This may decrease voice recognition accuracy Inadvertent hazardous materials waste technician errors may occur 10/03/2023 Other obesity due [...] minimum of 6 months The most recent [place] Association of clinical endocrinologists and [place] [employer] of endocrinology guidelines recommend patients who [...] track activity level. Consider using apps like [employer], [email or web address], lose it, stick as needed for self-monitoring and weight management. Consider group exercises. Consider hiring a personal driver. Regular exercise is shook to sustainable health [...] counseling and psychiatry and Dr Salamacna at [facility]. We would like to cover regular topics [...] software and direct typing Please excuse inadvertent hazardous materials waste technician or typing errors, or uncorrected word substitutions Although every attempt has been made by the provider to proofread this document, occasional misspellings and typographical errors may still be present Due to the previous pandemic, and the use of personal protective equipment (PPE) This may decrease voice recognition accuracy Inadvertent hazardous materials waste technician errors may occur 10/03/2023 BMI 30.0-30.9,adult (ICD-10 [...] minimum of 6 months The most recent [place] [employer] of clinical endocrinologists and [place] [employer] of endocrinology guidelines recommend patients who [...] track activity level. Consider using apps like [employer], myfitnesspal, lose it, stick as needed for self-monitoring and weight management. Consider group exercises. Consider hiring a personal driver. Regular exercise is shook to sustainable health [...] counseling and psychiatry and Dr Salamanca at [facility]. We would like to cover regular topics [...] software and direct typing Please excuse inadvertent hazardous materials waste technician or typing errors, or uncorrected word substitutions Although every attempt has been made by the provider to proofread this document, occasional misspellings and typographical errors may still be present Due to the previous pandemic, and the use of personal protective equipment (PPE) This may decrease voice recognition accuracy Inadvertent hazardous materials waste technician errors may occur 11/28/2023 Other obesity due [...] minimum of 6 months The most recent [place] Association of clinical endocrinologists and [place] [employer] of endocrinology guidelines recommend patients who [...] track activity level. Consider using apps like [employer], [email or web address], lose it, stick as needed for self-monitoring and weight management. Consider group exercises. Consider hiring a personal driver. Regular exercise is shook to sustainable health [...] counseling and psychiatry and Dr Salamanca at [facility]. We would like to cover regular topics [...] software and direct typing Please excuse inadvertent hazardous materials waste technician or typing errors, or uncorrected word substitutions Although every attempt has been made by the provider to proofread this document, occasional misspellings and typographical errors may still be present Due to the previous pandemic, and the use of personal protective equipment (PPE) This may decrease voice recognition accuracy Inadvertent hazardous materials waste technician errors may occur 11/28/2023 BMI 30.0-30.9,adult (ICD-10 [...] minimum of 6 months The most recent [place] [employer] of clinical endocrinologists and [place] [employer] of endocrinology guidelines recommend patients who [...] track activity level. Consider using apps like [employer], [email or web address], lose it, stick as needed for self-monitoring and weight management. Consider group exercises. Consider hiring a personal driver. Regular exercise is shook to sustainable health [...] counseling and psychiatry and Dr Salamanca at [facility]. We would like to cover regular topics [...] software and direct typing Please excuse inadvertent hazardous materials waste technician or typing errors, or uncorrected word substitutions Although every attempt has been made by the provider to proofread this document, occasional misspellings and typographical errors may still be present Due to the previous pandemic, and the use of personal protective equipment (PPE) This may decrease voice recognition accuracy Inadvertent hazardous materials waste technician errors may occur 10/03/2023 Type 2 diabetes [...] minimum of 6 months The most recent [place] Association of clinical endocrinologists and [place] [employer] of endocrinology guidelines recommend patients who [...] track activity level. Consider using apps like [employer], [email or web address], lose it, stick as needed for self-monitoring and weight management. Consider group exercises. Consider hiring a personal driver. Regular exercise is shook to sustainable health [...] counseling and psychiatry and Dr Salamanca at [facility]. We would like to cover regular topics [...] software and direct typing Please excuse inadvertent hazardous materials waste technician or typing errors, or uncorrected word substitutions Although every attempt has been made by the provider to proofread this document, occasional misspellings and typographical errors may still be present Due to the previous pandemic, and the use of personal protective equipment (PPE) This may decrease voice recognition accuracy Inadvertent hazardous materials waste technician errors may occur 07/04/2023 penitentiary (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 insulin (ICD-10 - [...] minimum of 6 months The most recent [place] Association of clinical endocrinologists and [place] [employer] of endocrinology guidelines recommend patients who [...] track activity level. Consider using apps like [employer], myfitAmberAdspal, lose it, stick as needed for self-monitoring and weight management. Consider group exercises. Consider hiring a personal driver. Regular exercise is shook to sustainable health [...] counseling and psychiatry and Dr Salamanca at [facility]. We would like to cover regular topics [...] software and direct typing Please excuse inadvertent hazardous materials waste technician or typing errors, or uncorrected word substitutions Although every attempt has been made by the provider to proofread this document, occasional misspellings and typographical errors may still be present Due to the previous pandemic, and the use of personal protective equipment (PPE) This may decrease voice recognition accuracy Inadvertent hazardous materials waste technician errors may occur 07/04/2023 History of gastric [...] minimum of 6 months The most recent [place] Association of clinical endocrinologists and [place] [employer] of endocrinology guidelines recommend patients who [...] track activity level. Consider using apps like [employer], [employer]fitnesspal, lose it, stick as needed for self-monitoring and weight management. Consider group exercises. Consider hiring a personal driver. Regular exercise is shook to sustainable health [...] counseling and psychiatry and Dr Salamanca at [facility]. We would like to cover regular topics [...] software and direct typing Please excuse inadvertent hazardous materials waste technician or typing errors, or uncorrected word substitutions Although every attempt has been made by the provider to proofread this document, occasional misspellings and typographical errors may still be present Due to the previous pandemic, and the use of personal protective equipment (PPE) This may decrease voice recognition accuracy Inadvertent hazardous materials waste technician errors may occur 10/03/2023 penitentiary (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 insulin (ICD-10 - [...] minimum of 6 months The most recent [place] Association of clinical endocrinologists and [place] [employer] of endocrinology guidelines recommend patients who [...] track activity level. Consider using apps like [employer], [email or web address], lose it, stick as needed for self-monitoring and weight management. Consider group exercises. Consider hiring a personal driver. Regular exercise is shook to sustainable health [...] counseling and psychiatry and Dr Salamanca at [facility]. We would like to cover regular topics [...] software and direct typing Please excuse inadvertent hazardous materials waste technician or typing errors, or uncorrected word substitutions Although every attempt has been made by the provider to proofread this document, occasional misspellings and typographical errors may still be present Due to the previous pandemic, and the use of personal protective equipment (PPE) This may decrease voice recognition accuracy Inadvertent hazardous materials waste technician errors may occur 11/28/2023 Type 2 diabetes [...] minimum of 6 months The most recent [place] Association of clinical endocrinologists and [place] [employer] of endocrinology guidelines recommend patients who [...] track activity level. Consider using apps like [employer], [employer]mber[employer], lose it, stick as needed for self-monitoring and weight management. Consider group exercises. Consider hiring a personal driver. Regular exercise is shook to sustainable health [...] counseling and psychiatry and Dr Salamanca at [facility]. We would like to cover regular topics [...] software and direct typing Please excuse inadvertent hazardous materials waste technician or typing errors, or uncorrected word substitutions Although every attempt has been made by the provider to proofread this document, occasional misspellings and typographical errors may still be present Due to the previous pandemic, and the use of personal protective equipment (PPE) This may decrease voice recognition accuracy Inadvertent hazardous materials waste technician errors may occur 10/03/2023 History of gastric [...] minimum of 6 months The most recent [place] Association of clinical endocrinologists and [place] [employer] of endocrinology guidelines recommend patients who [...] track activity level. Consider using apps like [employer], [email or web address], lose it, stick as needed for self-monitoring and weight management. Consider group exercises. Consider hiring a personal driver. Regular exercise is shook to sustainable health [...] counseling and psychiatry and Dr Salamanca at [facility]. We would like to cover regular topics [...] software and direct typing Please excuse inadvertent hazardous materials waste technician or typing errors, or uncorrected word substitutions Although every attempt has been made by the provider to proofread this document, occasional misspellings and typographical errors may still be present Due to the previous pandemic, and the use of personal protective equipment (PPE) This may decrease voice recognition accuracy Inadvertent hazardous materials waste technician errors may occur 07/04/2023 BMI 31.0-31.9,adult (ICD-10 [...] minimum of 6 months The most recent [place] Association of clinical endocrinologists and [place] [employer] of endocrinology guidelines recommend patients who [...] track activity level. Consider using apps like [employer], myfitAmberAdspal, lose it, stick as needed for self-monitoring and weight management. Consider group exercises. Consider hiring a personal driver. Regular exercise is shook to sustainable health [...] counseling and psychiatry and Dr Salamanca at [facility]. 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 Consider using apps like [employer], myfitnesspal, lose it, stick as needed for self-monitoring and weight management. Consider group exercises. Consider hiring a personal driver. Regular exercise is shook to sustainable health [...] counseling and psychiatry and Dr Salamanca at [facility]. We would like to cover regular topics [...] software and direct typing Please excuse inadvertent hazardous materials waste technician or typing errors, or uncorrected word substitutions Although every attempt has been made by the provider to proofread this document, occasional misspellings and typographical errors may still be present Due to the previous pandemic, and the use of personal protective equipment (PPE) This may decrease voice recognition accuracy Inadvertent hazardous materials waste technician errors may occur 11/28/2023 History of gastric [...] minimum of 6 months The most recent [place] Association of clinical endocrinologists and [place] [employer] of endocrinology guidelines recommend patients who [...] track activity level. Consider using apps like [employer], [employer], lose it, stick as needed for self-monitoring and weight management. Consider group exercises. Consider hiring a personal driver. Regular exercise is shook to sustainable health [...] counseling and psychiatry and Dr Salamanca at [facility]. We would like to cover regular topics [...] software and direct typing Please excuse inadvertent hazardous materials waste technician or typing errors, or uncorrected word substitutions Although every attempt has been made by the provider to proofread this document, occasional misspellings and typographical errors may still be present Due to the previous pandemic, and the use of personal protective equipment (PPE) This may decrease voice recognition accuracy Inadvertent hazardous materials waste technician errors may occur 11/28/2023 Hypothyroidism, unspecified type [...] minimum of 6 months The most recent [place] Association of clinical endocrinologists and [place] [employer] of endocrinology guidelines recommend patients who [...] track activity level. Consider using apps like [employer], [email or web address], lose it, stick as needed for self-monitoring and weight management. Consider group exercises. Consider hiring a personal driver. Regular exercise is shook to sustainable health [...] counseling and psychiatry and Dr Salamanca at [facility]. We would like to cover regular topics [...] software and direct typing Please excuse inadvertent hazardous materials waste technician or typing errors, or uncorrected word substitutions Although every attempt has been made by the provider to proofread this document, occasional misspellings and typographical errors may still be present Due to the previous pandemic, and the use of personal protective equipment (PPE) This may decrease voice recognition accuracy Inadvertent hazardous materials waste technician errors may occur 10/03/2023 Hypothyroidism, unspecified type [...] minimum of 6 months The most recent [place] Association of clinical endocrinologists and [place] [employer] of endocrinology guidelines recommend patients who [...] track activity level. Consider using apps like [employer], [employer], lose it, stick as needed for self-monitoring and weight management. Consider group exercises. Consider hiring a personal driver. Regular exercise is shook to sustainable health [...] counseling and psychiatry and Dr Salamanca at [facility]. We would like to cover regular topics [...] software and direct typing Please excuse inadvertent hazardous materials waste technician or typing errors, or uncorrected word substitutions Although every attempt has been made by the provider to proofread this document, occasional misspellings and typographical errors may still be present Due to the previous pandemic, and the use of personal protective equipment (PPE) This may decrease voice recognition accuracy Inadvertent hazardous materials waste technician errors may occur PLAN OF TREATMENT Pending Test Test Name Order Date HEMOGLOBIN A1C 10/03/2023 T4, TOTAL 10/03/2023 TSH 10/03/2023 Insurance Providers Payer Name Payer Address Payer Phone Subscriber Number Group Number Insured Name Patient Relationship to Insured Coverage Start Date Coverage End Date [employer]Donna or Options [address] [place] [id number] Rosie Grimm Self - patient is the insured 3 MEDICAL (GENERAL) HISTORY Medical History History ICD Code Hypothyroidism type II diabetes hydronephrosis Surgical History Surgery Date(Month/Year) hysterectomy left knee replacement right knee replacement hydroneprosis
--- OUTSIDE RECORDS SUMMARY | 2024-06-01 19:36 | XMS_ITS | Encounter Summary ---
Author Organization [facility] Address [address] [place] [address] Phone Care Team Providers Care Public Transit Trolley Driver Name Role Phone Ashkan Jacobson MD Primary Care Provider [phone] Encounter Details Date Type Department Care Team (Late st Contact Info) Description 06/19/2021 Documentation Only [facility] [address] [place] [id number] Macy Giraldo PA Social History Tobacco Use [...] [facility] [address] [place] [phone] Godfrey Marcum MD [address] [place] [address] [place] [phone] documented as of this encounter Visit Diagnoses Not on filedocumented in this encounter Care Teams Public Transit Trolley Driver Relationship Specialty Start Date End Date Ashkan Jacobson MD [address] [place] [address] PCP - General 03/09/19 documented as of this encounter
--- OUTSIDE RECORDS SUMMARY | 2024-06-01 19:36 | XMS_ITS | Encounter Summary ---
Author Organization [facility] Address [facility] [place] [address] Care Team Providers Care Clean Room Assembler Name Role Phone Kaley Jacobson MD Primary Care Provider Unavailab le Encounter Details Date Type Department Care Team Description 03/14/2017 Release of Information Medical Records [address] [place] [id number] Abstract, Provider Social History Tobacco Use Types Packs/Day Years Used Date Smoking Tobacco: Never Alcohol Use Standard Drinks/Week Comments No 0 (1 standard drink = 0.6 oz pur e alcohol) Sex Assigned at Date Recorded Not on file documented as of this encounter Plan of Treatment Not on file documented as of this encounter Visit Diagnoses Not on filedocumented in this encounter Care Teams Clean Room Assembler Relationship Specialty Start Date End Date Kaley Jacobson MD PCP - General Internal Medicine 03/11/17 documented as of this encounter
--- OUTSIDE RECORDS SUMMARY | 2024-06-01 19:36 | XMS_ITS | Encounter Summary ---
Author Organization [facility] Address [address] [place] [address] Phone Care Team Providers Care Manager Account Management Name Role Phone Ashkan Jacobson MD Primary Care Provider [phone] Encounter Details Date Type Department Care Team (Late st Contact Info) Description 03/22/2021 Documentation Only [facility] [address] [place] [phone] Macy Giraldo PA Social History Tobacco Use [...] Visit [facility] [address] [place] [address] Godfrey Marcum MD [address] [place] [address] [place] [address] documented as of this encounter Visit Diagnoses Not on filedocumented in this encounter Care Teams Manager Account Management Relationship Specialty Start Date End Date Ashkan Jacobson MD [address] [place] [address] 201 [place], [place] PCP - General 03/09/19 documented as of this encounter
--- OUTSIDE RECORDS SUMMARY | 2024-06-01 19:36 | XMS_ITS | Encounter Summary ---
Author Organization [facility] Address [address] [place] [address] Phone Care Team Providers Care Paralegal Internship Name Role Phone Ashkan Jacobson MD Primary Care Provider [phone] Encounter Details Date Type Department Care Team (Late st Contact Info) Description 09/18/2021 Documentation Only [facility] [address] [place] [address] Macy Giraldo PA Social History Tobacco Use [...] Visit [facility] [address] [place] [address] Godfrey Marcum MD [address] [place] [address] [place] [address] documented as of this encounter Visit Diagnoses Not on filedocumented in this encounter Care Teams Paralegal Internship Relationship Specialty Start Date End Date Ashkan Jacobson MD [address] [place] [address] PCP - General 03/09/19 documented as of this encounter
--- OUTSIDE RECORDS SUMMARY | 2024-06-01 19:37 | XMS_ITS | Encounter Summary ---
Author Organization [facility] Address [address] [place] [address] Phone Care Team Providers Care Front Desk Supervisor Name Role Phone Ashkan Jacobson MD Primary Care Provider [phone] Encounter Details Date Type Department Care Team (Late Contact Info) Description 01/06/2024 Documentation Only [facility] [address] [place] [address] Charlotte Mehta [address] [place] [address] Social History Tobacco Use Types [...] Visit [facility] [address] [place] [address] Godfrey Marcum MD [address] [place] [address] [place] [address] documented as of this encounter Visit Diagnoses Not on filedocumented in this encounter Care Teams Front Desk Supervisor Relationship Specialty Start Date End Date Ashkan Jacobson MD [address] [place] [address] 201 [place], [place] PCP - General 03/09/19 documented as of this encounter
--- OUTSIDE RECORDS SUMMARY | 2024-06-01 19:37 | XMS_ITS | Clinical Summary ---
Author Organization [facility] [place], Address [address] [place] [address] [place] [address] Phone Care Team Providers Care Affiliate Marketing Coordinator Name Role Phone Ashkan Jacobson MD Primary Care Provider [phone] Allergies Active Allergy Reactions Criticality Noted Date [...] Visit [facility] [address] [place] [address] Godfrey Marcum MD [address] [facility] [place] [address] Health Maintenance Due Date Last Done Comments [...] AM EDT) Hemoglobin A1C 6.7(H) (4.0-5.6) % [facility] Comment: MONITORING: In known diabetic patients, hemoglobin A1c targets should be discussed with health care provider. DIAGNOSTIC USE: ??The [place] Diabetes Association (ADA) and the World Health [...] Supplement 1 Testing performed or reported by [facility], a Service of [facility], [address] [place] [address] Familia Britton MD, Regulatory Lead [facility]# [id number] Blood (Blood, Venous) 02/05/2023 10:48 AM EDT 02/05/2023 10:49 AM EDT us Godfrey Marcum MD LAB BLOOD ORDERABLES Final Re sult [facility] from Last 3 Months or Most Recently Relevant to Health Maintenance Insurance [facility] DUAL SNP ([id number]) [place] [id number] Care Teams Affiliate Marketing Coordinator Relationship Specialty Start Date End Date Ashkan Jacobson MD [address] [place] [address] PCP - General 03/09/19
--- OUTSIDE RECORDS SUMMARY | 2024-06-01 19:37 | XMS_ITS | Encounter Summary ---
Author Organization [facility] Address [address] [place] [address] Phone Care Team Providers Care Biology Faculty Member Name Role Phone Ashkan Jacobson MD Primary Care Provider [phone] Encounter Details Date Type Department Care Team (Late Contact Info) Description 07/23/2023 Documentation Only [facility] [address] [place] [address] Xochilt Crawford [place] [address] [place] [address] Social History Tobacco Use Types [...] [facility] [address] [place] [address] Godfrey Marcum MD [address] [place] [address] [place] [address] documented as of this encounter Visit Diagnoses Not on filedocumented in this encounter Care Teams Biology Faculty Member Relationship Specialty Start Date End Date Ashkan Jacobson MD [address] [place] [address] 201 [place], [place] PCP - General 03/09/19 documented as of this encounter
--- OUTSIDE RECORDS SUMMARY | 2024-06-01 19:37 | XMS_ITS | Encounter Summary ---
Author Organization [facility] Address [address] [place] [address] Phone Care Team Providers Care Claims Adjuster Name Role Phone Ashkan Jacobson MD Primary Care Provider [phone] Encounter Details Date Type Department Care Team (Late Contact Info) Description 08/04/2023 Documentation Only [facility] [address] [place] [address] Xochilt Crawford [place] [address] [place] [address] Social History Tobacco Use Types [...] Visit [facility] [address] [place] [address] Godfrey Marcum MD [address] [place] [address] [place] [address] documented as of this encounter Visit Diagnoses Not on filedocumented in this encounter Care Teams Claims Adjuster Relationship Specialty Start Date End Date Ashkan Jacobson MD [address] [place] [address] 201 [place], [place] PCP - General 03/09/19 documented as of this encounter
--- OUTSIDE RECORDS SUMMARY | 2024-06-01 19:37 | XMS_ITS | Encounter Summary ---
Author Organization [facility] Address [address] [place] [address] Phone Care Team Providers Care Parts Cataloguer Name Role Phone Ashkan Jacobson MD Primary Care Provider [phone] Encounter Details Date Type Department Care Team (Late Contact Info) Description 09/24/2022 Documentation Only [facility] [address] [place] [address] Godfrey Marcum MD [address] [place] [address] [place] [address] Social History Tobacco Use Types [...] Visit [facility] [address] [place] [address] Godfrey Marcum MD [address] [place] [address] [place] [address] documented as of this encounter Visit Diagnoses Not on filedocumented in this encounter Care Teams Parts Cataloguer Relationship Specialty Start Date End Date Ashkan Jacobson MD [address] [place] [address] 201 [place], [place] PCP - General 03/09/19 documented as of this encounter
--- OUTSIDE RECORDS SUMMARY | 2024-06-01 19:37 | XMS_ITS | Encounter Summary ---
Author Organization [facility] Address [address] [place] [address] Phone Care Team Providers Care Stone Splitter Name Role Phone Ashkan Jacobson MD Primary Care Provider [phone] Encounter Details Date Type Department Care Team (Late Contact Info) Description 07/21/2023 Documentation Only [facility] [address] [place] [address] Xochilt Crawford [place] [address] [place] [address] Social History Tobacco Use Types [...] Visit [facility] [address] [place] [address] Godfrey Marcum MD [address] [place] [address] [place] [address] documented as of this encounter Visit Diagnoses Not on filedocumented in this encounter Care Teams Stone Splitter Relationship Specialty Start Date End Date Ashkan Jacobson MD [address] [place] [address] 201 [place], [place] PCP - General 03/09/19 documented as of this encounter
--- OUTSIDE RECORDS SUMMARY | 2024-06-01 19:37 | XMS_ITS | Encounter Summary ---
Author Organization [facility] Address [address] [place] [address] Phone Care Team Providers Care Computer Support Analyst Name Role Phone Ashkan Jacobson MD Primary Care Provider [phone] Encounter Details Date Type Department Care Team (Late Contact Info) Description 12/19/2023 Documentation Only [facility] [address] [place] [address] Xochilt Crawford [place] [address] [place] [address] Social History Tobacco Use Types [...] Visit [facility] [address] [place] [address] Godfrey Marcum MD [address] [place] [address] [place] [address] documented as of this encounter Visit Diagnoses Not on filedocumented in this encounter Care Teams Computer Support Analyst Relationship Specialty Start Date End Date Ashkan Jacobson MD [address] [place] [address] 201 [place], [place] PCP - General 03/09/19 documented as of this encounter
--- OUTSIDE RECORDS SUMMARY | 2024-06-01 19:37 | XMS_ITS ---
Author Organization [facility] Address [address] [place] [address] Care Team Providers Care Tool Distributor Name Role Phone BHUMIKA BUSTOS Unavailable [phone] REASON FOR VISIT balance Encounters Encounter Location Date Provider Diagnosis [facility] [address] [facility] [address] [place] [address] 02/25/2024 BHUMIKA BUSTOS PLAN OF TREATMENT No Information Progress Notes * Coleen BERMANsDOB: [birth year] (63 yo F)Acc No.[id number]:02/25/2024 Patient:??Rosie BERMAN :1960?Age:63 Y?Sex:Fe male Address:[address] [place] [address] * true * Date:??
--- OUTSIDE RECORDS SUMMARY | 2024-06-01 19:37 | XMS_ITS | Encounter Summary ---
Author Organization [facility] Address [address] [place] [address] Phone Care Team Providers Care Dermatologist Managing Partner Name Role Phone Ashkan Jacobson MD Primary Care Provider [phone] Encounter Details Date Type Department Care Team (Late Contact Info) Description 08/28/2023 Documentation Only [facility] [address] [place] [address] Xochilt Crawford [place] [address] [place] [address] Social History Tobacco Use Types [...] Visit [facility] [address] [place] [address] Godfrey Marcum MD [address] [place] [address] [place] [address] documented as of this encounter Visit Diagnoses Not on filedocumented in this encounter Care Teams Dermatologist Managing Partner Relationship Specialty Start Date End Date Ashkan Jacobson MD [address] [place] [address] 201 [place], [place] PCP - General 03/09/19 documented as of this encounter
--- OUTSIDE RECORDS SUMMARY | 2024-06-01 19:37 | XMS_ITS | Encounter Summary ---
Author Organization [facility] Address [address] [place] [address] Phone Care Team Providers Care Stem Roller Name Role Phone Ashkan Jacobson MD Primary Care Provider Encounter Details Date Type Department Care Team (Late Contact Info) Description 02/17/2024 Documentation Only [facility] [address] [place] [address] Xochilt Crawford [place] [address] [place] [address] Social History Tobacco Use Types [...] Visit [facility] [address] [place] [address] Godfrey Marcum MD [address] [place] [address] [place] [address] documented as of this encounter Visit Diagnoses Not on filedocumented in this encounter Care Teams Stem Roller Relationship Specialty Start Date End Date Ashkan Jacobson MD [address] [place] [address] 201 [place], [place] PCP - General 03/09/19 documented as of this encounter
--- OUTSIDE RECORDS SUMMARY | 2024-06-01 19:37 | XMS_ITS | Clinical Summary ---
Author Organization [facility] Address [address] [place] [address] Care Team Providers Care Senior Label Specialist Name Role Phone Kaley Jacobson MD Primary Care Provider [phone] Surgical History Surgery Date Site/Laterality Comments TOTAL KNEE ARTHROPLASTY 2009 PROCEDURE: [place] ARTHRP KNE CONDYLE&PLATU MEDIAL&LAT COMPARTMENTS CHOLECYSTECTOMY PROCEDURE: [place] LAPAROSCOPY SURG CHOLECYSTECTOMY SECTION PROCEDURE: HISTORICAL OTHER [...] Continued pain 03/2017, seeking 2nd opinion at [facility] History of CVA (cerebrovascu lar accident) 06/06/2017 [...] age to complete this topic Care Teams Senior Label Specialist Relationship Specialty Start Date End Date Kaley Jacobson MD [address] [place] [address] PCP - General Internal Medicine 03/11/17
--- OUTSIDE RECORDS SUMMARY | 2024-06-01 19:37 | XMS_ITS | Encounter Summary ---
Author Organization [facility] Address [address] [place] [address] Phone Care Team Providers Care Fire Hydrant Mechanic Name Role Phone Ashkan Jacobson MD Primary Care Provider [phone] Encounter Details Date Type Department Care Team (Late Contact Info) Description 02/04/2024 Documentation Only [facility] [address] [place] [address] Xochilt Crawford [place] [address] [place] [address] Social History Tobacco Use Types [...] Visit [facility] [address] [place] [address] Godfrey Marcum MD [address] [place] [address] [place] [address] documented as of this encounter Visit Diagnoses Not on filedocumented in this encounter Care Teams Fire Hydrant Mechanic Relationship Specialty Start Date End Date Ashkan Jacobson MD [address] [place] [address] 201 [place], [place] PCP - General 03/09/19 documented as of this encounter
--- OUTSIDE RECORDS SUMMARY | 2024-06-01 19:37 | XMS_ITS | Encounter Summary ---
Author Organization [facility] Address [address] [place] [address] Phone Care Team Providers Care Pharmacy Technician Instructor Name Role Phone Ashkan Jacobson MD Primary Care Provider [phone] Encounter Details Date Type Department Care Team (Late Contact Info) Description 07/30/2023 Documentation Only [facility] [address] [place] [address] Xochilt Crawford [place] [address] [place] [address] Social History Tobacco Use Types [...] [facility] [address] [place] [address] Godfrey Marcum MD [address] [place] [address] [place] [address] documented as of this encounter Visit Diagnoses Not on filedocumented in this encounter Care Teams Pharmacy Technician Instructor Relationship Specialty Start Date End Date Ashkan Jacobson MD [address] [place] [address] 201 [place], [place] PCP - General 03/09/19 documented as of this encounter
--- OUTSIDE RECORDS SUMMARY | 2024-06-01 19:37 | XMS_ITS | Encounter Summary ---
Author Organization [facility] Address [address] [place] [address] Phone Care Team Providers Care Patient Navigator Name Role Phone Ashkan Jacobson MD Primary Care Provider [phone] Encounter Details Date Type Department Care Team (Late Contact Info) Description 08/21/2023 Documentation Only [facility] [address] [place] [address] Xochilt Crawford [place] [address] [place] [address] Social History Tobacco Use Types [...] Visit [facility] [address] [place] [address] Godfrey Marcum MD [address] [place] [address] [place] [address] documented as of this encounter Visit Diagnoses Not on filedocumented in this encounter Care Teams Patient Navigator Relationship Specialty Start Date End Date Ashkan Jacobson MD [address] [place] [address] 201 [place], [place] PCP - General 03/09/19 documented as of this encounter
[2024-06-01 19:59] VITALS: RESP 18
[2024-06-01] MEDS: Morphine Sulfate 4 MG/ML CARTRIDGE IVPUSH (19:59)
[2024-06-01] MEDS: ondansetron HCL 4 MG/2 ML VIAL IVPUSH (19:59)
[2024-06-01 20:29] VITALS: RESP 16
[2024-06-01 20:30] LABS: Color Urine Yellow; Glucose Urine UA Negative (Negative); Leukocyte Esterase Urine Negative (Negative); Nitrite Urine Negative (Negative); Specific Gravity - Urine 1.015 (1.005-1.025); Urine Blood Negative (Negative); Urine Ketones Negative (Negative); Urine Protein Negative (Neg-Trace)
[2024-06-01 20:43] LABS: Appearance Urine Clear
[2024-06-01 20:58] VITALS: BP 137/82; PULSE 75; RESP 16; TEMP 36.6; O2SAT 96
[2024-06-01 21:22] VITALS: BP 137/82; PULSE 75; RESP 16; TEMP 36.6; O2SAT 96
== END 2024-06-01 21:22 | disposition home or self-care (01) ==
PROVIDERS: Physician Assistant Medical; Emergency Provider Internal Medicine; PCP Internal Medicine
DX: Q62.10 Congenital occlusion of ureter, unspecified (principal); N13.30 Unspecified hydronephrosis; R10.9 Unspecified abdominal pain; E11.22 Type 2 diabetes mellitus with diabetic chronic kidney disease; I12.9 Hypertensive chronic kidney disease with stage 1 through stage 4 chronic kidney disease, or unspecified chronic kidney disease; N18.9 Chronic kidney disease, unspecified; E78.5 Hyperlipidemia, unspecified; R06.02 Shortness of breath; Z98.84 Bariatric surgery status; Z87.442 Personal history of urinary calculi; Z79.4 Long term (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 insulin
CPT/HCPCS: 36415; 74176; 80048; 80076; 81003; 83690; 85025; 96374; 96375; 99284; J2270; J2405

== ENCOUNTER → 2024-06-01 16:01 | Outpatient (BNV) | payer OTHER, SELFPAY | PROVIDERS: PCP Internal Medicine; Visit Provider Radiology Diagnostic Radiology | DX: N13.1 Hydronephrosis with ureteral stricture, not elsewhere classified (principal) | CPT/HCPCS: 74176 ==

== ENCOUNTER 2024-06-07 12:34 | Outpatient (AMB) | payer OTHER, SELFPAY ==
--- NOTE | 2024-06-07 13:02 | MHC.OFFVIS ---
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,HTN Intake Note: New patient c/o palpitation and pounding in ears patient describes having a cardiac cath in [place] 15 years ago that showed nothing Pediatric Speech Therapist Required: No Pediatric Speech Therapist Services: Pediatric Speech Therapist Present Pediatric Speech Therapist Name: hernandez Lane Director Of Student Financial Services: Director Of Student Financial Services Present Accompanied by: Spouse Allergies latex [LATEX] Allergy (Mild, Verified 06/01/24 15:31) RASH metformin Adverse Reaction (Verified 06/01/24 15:31) Unknown Medication List - Last Reconciled 06/07/24 by Oscar Clark MD amlodipine 10 mg PO DAILY blood sugar diagnostic (OneTouch Ultra Test strips) As directed 3 times a day blood sugar diagnostic As directed blood-glucose meter (TaxizuTouch Ultra2 Meter) As directed docusate sodium 100 mg PO BID flash glucose sensor (FreeStyle Jame 2 Sensor kit) USE DIRECTED TO TEST BLOOD SUGAR. CHANGE EVERY 10 DAYS fluoxetine 40 mg PO DAILY fluticasone propionate 50 mcg/actuation 1 spray intranasal DAILY PRN FreeStyle Jame 2 [place] (flash glucose scanning reader) As directed NS hydrochlorothiazide 12.5 mg PO DAILY lancets As directed lisinopril 40 mg PO DAILY metoprolol succinate ER 50 mg PO DAILY oxycodone 5 mg PO Q6H PRN pen needle, diabetic (Comfort EZ Pen [place]) As directed injects once a day sennosides (senna) 8.6 mg PO DAILY tirzepatide (Mounjaro) 2.5 mg subcut MO trazodone 50 - 150 mg PO BEDTIME PRN HPI Comments Details: Thank you for referring Rosie in cardiology consultation today for chest discomfort and blood pressure management. She is accompanied by her and history was obtained with help of jig maker over the telephone. Patient was a pleasant 63-year-old woman with prior history of hypertension as well as diabetes status post bariatric surgery in the past, history of anxiety and depression. More recently she has been having issue with hydronephrosis of the right kidney related to ureteral stricture. This has been treated by Dr. Bloom with a stent. Patient says whenever she has urinary retention and discomfort related to it and associated infection her blood pressure is usually uncontrolled and very elevated. Most recent episode was about a week ago when she was diagnose with right ureteral stricture. She has been treated by Urology. Since treatment and when the symptoms are controlled her blood pressure is usually well controlled and she was no associated symptoms. However when she gets significantly elevated blood pressure she notices rapid heart rate as well as notices pressure in his chest. She has no pressure in the chest when she is active and walking. She was also scheduled to undergo surgery for excess skin in her abdomen. She takes all her medications regularly. On today's exam a blood pressure is well controlled. 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 Distal radius fracture, right HTN (hypertension) Chronic kidney disease Diabetes type 2, uncontrolled Surgical History History of surgery S/P fine needle aspiration S/P laparoscopic sleeve gastrectomy History of esophagogastroduodenoscopy (EGD) H/O colonoscopy Hx of biopsy History of partial hysterectomy History of total right knee replacement History of total left knee replacement (~2010) Hx of cholecystectomy History of section History of carpal tunnel release (~2017) Family History Father Hypertension Diabetes History of kidney cancer Mother Diabetes Hypertension Heart disease Brother Hypertension Diabetes Brother No problems noted. Son Hypertension Prediabetes Heart disease Daughter Prediabetes Social History Household Members: Spouse Housing: Apartment Are you a primary family day carer to a significant other at home: No Do you presently have visiting nurse or other home services: No Alcohol intake: never Patient Tobacco Use Status: Never used Tobacco service: No Review of Systems Const Denies chills, Denies fatigue, Denies fever(s), Denies frequent falls, Denies weakness, Denies weight gain and Denies weight loss Eyes Denies loss of vision ENT Denies dizziness Card Denies chest pain, Denies leg edema, Denies lightheadedness, Denies palpitations, Denies dyspnea, Denies dyspnea on exertion, Denies orthopnea and Denies other (loss of consciousness) Resp Denies cough, Denies dyspnea, Denies dyspnea on exertion and Denies wheezing GI Denies hematochezia and Denies change in stool character Denies urinary frequency and Denies dysuria Musc Denies abnormal gait, Denies muscle weakness, Denies numbness, Denies radiating pain into limb and Denies tingling Skin/Breast Denies nail changes and Denies rash Neuro Denies abnormal gait, Denies dizziness, Denies frequent falls, Denies loss of vision, Denies memory loss, Denies numbness, Denies tingling and Denies weakness Psych Denies depression and Denies memory loss Endo Denies fatigue and Denies palpitations Ke/Lymph Reports easy bruising and Reports other (anemia) Aller/Immun Denies wheezing Physical Exam Vital Signs: Last Vital Signs Pulse 74 06/07/24 13:03 BP 130/80 06/07/24 13:03 BMI result Body Mass Index 30.0 Const General: cooperative, comfortable, no acute distress, alert, awake, Physically active and well groomed Nutritional Appearance: overweight Orientation/consciousness: patient oriented x3 Limitations: no limitations HEENT Head: Yes normocephalic and Yes atraumatic Neck Neck: Yes trachea midline, Yes supple and Yes no JVD Resp Effort & Inspection: normal respiratory effort Auscultation: clear to auscultation bilaterally Cardio Jugular venous distension: no JVD Palpation: normal PMI Rate: regular rate Rhythm: regular rhythm Heart sounds: S1 normal heart sound present, S2 normal heart sound present, no click, no gallops, no murmurs and no rubs GI Auscultation: normal bowel sounds Skin General skin exam: no rashes or lesions noted Neuro General: patient oriented x3 and no focal motor deficits Extrem General: Yes no clubbing, cyanosis or edema Psych Appearance: grossly normal Office Procedures EKG Details: EKG shows normal sinus rhythm with poor R-wave progression most likely lead placement and unlikely to represent anterior wall myocardial infarction 40805-[id number], Complete Assessment & Plan Assessment & Plan (1) Chest pain: Code(s): R07.9 - Chest pain, unspecified Category: Medical Plan: Patient intermittent episode of chest pressure in the setting of elevated blood pressure most likely subendocardial ischemia related to elevated blood pressure. This is situation in the setting of urinary retention related to ureteral stricture and/or urinary infection. Management would be to treating her underlying urologic issues. However given her chest pressure in the setting of elevated blood pressure, myocardial ischemia needs to be ruled out. She was multiple risk factors for the same including hypertension, diabetes, hyperlipidemia. Would suggest a coronary CTA to further assess for the same. Further treatment based on the findings. I have also discussed with her about stress mitigation strategies. Importance of good blood pressure control was discussed especially given that her blood pressure is optimized on current therapy. Continue aggressive diabetes management through your office goal hemoglobin A1c less than 7% and goal LDL less than 70 mg/dL. Consider statin therapy given her multiple risk factors. Will follow up in the clinic in 3 months time. Thank you for allowing me to partake in his care Orders: Orders CT Cardiac Coronary Angio 2 Weeks R07.9 - Chest pain, unspecified Coding Level of Care Code New Pt Level 4 (59280) Complex EM visit Add On G2211 Diagnoses Chest pain R07.9 CPT Codes EKG - CPT: 28878-[id number], Complete ([id number])
[2024-06-07 13:03] VITALS: BP 130/80; PULSE 74
--- OUTSIDE RECORDS SUMMARY | 2024-06-07 13:52 | XMS_ITS | Encounter Summary ---
Author Organization [facility] Address [address] [place] [address] Phone Care Team Providers Care Sales Leader Name Role Phone Ashkan Jacobson MD Primary Care Provider [phone] Encounter Details Date Type Department Care Team (Late st Contact Info) Description 04/04/2022 Documentation Only [facility] [address] [place] [phone] Macy Giraldo PA Social History Tobacco Use [...] [facility] [address] [place] [phone] Godfrey Marcum MD [address] [place] [address] [place] [phone] documented as of this encounter Visit Diagnoses Not on filedocumented in this encounter Care Teams Sales Leader Relationship Specialty Start Date End Date Ashkan Jacobson MD [address] [place] [address] PCP - General 03/09/19 documented as of this encounter
--- OUTSIDE RECORDS SUMMARY | 2024-06-07 13:52 | XMS_ITS | Encounter Summary ---
Author Organization [facility] Address [address] [place] [address] Phone Care Team Providers Care Assistant Real Estate Manager Name Role Phone Ashkan Jacobson MD Primary Care Provider [phone] Encounter Details Date Type Department Care Team (Late st Contact Info) Description 06/19/2021 Documentation Only [facility] [address] [place] [phone] Macy Giraldo PA Social History Tobacco Use [...] Visit [facility] [address] [place] [phone] Godfrey Marcum MD [address] [place] [address] [place] [phone] documented as of this encounter Visit Diagnoses Not on filedocumented in this encounter Care Teams Assistant Real Estate Manager Relationship Specialty Start Date End Date Ashkan Jacobson MD [address] [place] [address] PCP - General 03/09/19 documented as of this encounter
--- OUTSIDE RECORDS SUMMARY | 2024-06-07 13:53 | XMS_ITS | Clinical Summary ---
Author Organization [facility] [place], Address [address] [place] [address] [place] [address] Phone Care Team Providers Care Addiction Social Worker Name Role Phone Ashkan Jacobson MD Primary Care Provider [phone] Allergies Active Allergy Reactions Criticality Noted Date [...] [facility] [address] [place] [address] Godfrey Marcum MD [address] [facility] [place] [address] Health Maintenance Due Date Last Done Comments [...] AM EDT) Hemoglobin A1C 6.7(H) (4.0-5.6) % [facility] Comment: MONITORING: In known diabetic patients, hemoglobin A1c targets should be discussed with health care provider. DIAGNOSTIC USE: ??The [place] Diabetes Association (ADA) and the World Health [...] Supplement 1 Testing performed or reported by [facility], a Service of [facility], [address] [place] [address] Familia Britton MD, [place] [facility]# [id number] Blood (Blood, Venous) 02/05/2023 10:48 AM EDT 02/05/2023 10:49 AM EDT us Godfrey Marcum MD LAB BLOOD ORDERABLES Final Re sult [facility] from Last 3 Months or Most Recently Relevant to Health Maintenance Insurance [facility] DUAL SNP ([id number]) [place] [id number] Care Teams Addiction Social Worker Relationship Specialty Start Date End Date Ashkan Jacobson MD [address] [place] [address] PCP - General 03/09/19
--- OUTSIDE RECORDS SUMMARY | 2024-06-07 13:53 | XMS_ITS | Encounter Summary ---
Author Organization [facility] Address [address] [place] [address] Phone Care Team Providers Care Power Grader Operator Name Role Phone Ashkan Jacobson MD Primary Care Provider [phone] Encounter Details Date Type Department Care Team (Late Contact Info) Description 02/17/2024 Documentation Only [facility] [address] [place] [address] Xochilt Crawford [place] [address] [place] [address] Social History Tobacco Use Types [...] Visit [facility] [address] [place] [address] Godfrey Marcum MD [address] [place] [address] [place] [address] documented as of this encounter Visit Diagnoses Not on filedocumented in this encounter Care Teams Power Grader Operator Relationship Specialty Start Date End Date Ashkan Jacobson MD [address] [place] [address] [address] [place], [place] PCP - General 03/09/19 documented as of this encounter
--- OUTSIDE RECORDS SUMMARY | 2024-06-07 13:53 | XMS_ITS | Encounter Summary ---
Author Organization [facility] Address [address] [place] [address] Phone Care Team Providers Care Welder Apprentice Name Role Phone Ashkan Jacobson MD Primary Care Provider [phone] Encounter Details Date Type Department Care Team (Late Contact Info) Description 08/04/2023 Documentation Only [facility] [address] [place] [address] Xochilt [place] [address] [place] [address] Social History Tobacco Use Types [...] Visit [facility] [address] [place] [address] Godfrey Marcum MD [address] [place] [address] [place] [address] documented as of this encounter Visit Diagnoses Not on filedocumented in this encounter Care Teams Welder Apprentice Relationship Specialty Start Date End Date Ashkan Jacobson MD [address] [place] [address] [address] [place], [place] PCP - General 03/09/19 documented as of this encounter
--- OUTSIDE RECORDS SUMMARY | 2024-06-07 13:53 | XMS_ITS | Encounter Summary ---
Author Organization [facility] Address [address] [place] [address] Phone Care Team Providers Care Senior Systems Software Engineer Name Role Phone Ashkan Jacobson MD Primary Care Provider [phone] Encounter Details Date Type Department Care Team (Late Contact Info) Description 07/23/2023 Documentation Only [facility] [address] [place] [address] Xochilt [place] [address] [place] [address] Social History Tobacco Use Types [...] [facility] [address] [place] [address] Godfrey Marcum MD [address] [place] [address] [place] [address] documented as of this encounter Visit Diagnoses Not on filedocumented in this encounter Care Teams Senior Systems Software Engineer Relationship Specialty Start Date End Date Ashkan Jacobson MD [address] [place] [address] [address] [place], [place] PCP - General 03/09/19 documented as of this encounter
--- OUTSIDE RECORDS SUMMARY | 2024-06-07 13:53 | XMS_ITS | Encounter Summary ---
Author Organization [facility] Address [address] [place] [address] Phone Care Team Providers Care Cottage Master Name Role Phone Ashkan Jacobson MD Primary Care Provider [phone] Encounter Details Date Type Department Care Team (Late Contact Info) Description 09/24/2022 Documentation Only [facility] [address] [place] [address] Godfrey Marcum MD [address] [place] [address] [place] [address] Social History Tobacco Use Types [...] Visit [facility] [address] [place] [address] Godfrey Marcum MD [address] [place] [address] [place] [address] documented as of this encounter Visit Diagnoses Not on filedocumented in this encounter Care Teams Cottage Master Relationship Specialty Start Date End Date Ashkan Jacobson MD [address] [place] [address] [address] [place], [place] PCP - General 03/09/19 documented as of this encounter
--- OUTSIDE RECORDS SUMMARY | 2024-06-07 13:53 | XMS_ITS | Encounter Summary ---
Author Organization [facility] Address [address] [address] Care Team Providers Care Superintendent General Name Role Phone Ginette Fortune MD Primary Care Provide r Reason for Referral * Consultation (Routine) - Authorized Specialty Diagnoses / Procedures Referred By Eula winston Referred To Contact Orthopaedic Surgery Diagnoses Acute pain of left knee Drea Monroy MD [address] [place] [address] Phone: tel: fax: [facility] [address] [place] [address] Phone: tel: fax: Referral ID Status Reason Start Date Expiration Date Visits Requested Visits Authorized [id number] Authorized Specialty Services Required 11/14/2023 11/13/2024 1 1 Encounter Details Date Type Department Care Team (Late st Contact Info) Description 11/14/2023 Orders Only [facility] [address] [place], [place] [phone] Drea Monroy MD [address] [place], [place] [phone] Acute pain of left knee (Primary Dx) [...] Care Team (Late st Contact Info) Description 06/15/2024 1:15 PM EST Office Visit [facility] [address] [place] [address] Ginette Fortune MD [address] [place] [address] 07/21/2024 10:15 AM EDT Office Visit [facility] [address] [place] [address] Ginette Fortune MD [address] [place] [phone] Scheduled Referrals Name Type Priority Associated Diagnoses [...] documented as of this encounter Care Teams Superintendent General Relationship Specialty Start Date End Date Ginette Fortune MD [address] [place] [address] PCP - General Internal Medicine 10/27/23 documented as of this encounter
--- OUTSIDE RECORDS SUMMARY | 2024-06-07 13:53 | XMS_ITS | Encounter Summary ---
Author Organization [facility] Address [address] [place] [address] Phone Care Team Providers Care Forestry Hunter Name Role Phone Ashkan Jacobson MD Primary Care Provider Encounter Details Date Type Department Care Team (Late st Contact Info) Description 09/18/2021 Documentation Only [facility] [address] [place] [phone] Macy Giraldo PA Social History Tobacco Use [...] [facility] [address] [place] [address] Godfrey Marcum MD [address] [place] [address] [place] [phone] documented as of this encounter Visit Diagnoses Not on filedocumented in this encounter Care Teams Forestry Hunter Relationship Specialty Start Date End Date Ashkan Jacobson MD [address] [place] [address] PCP - General 03/09/19 documented as of this encounter
--- OUTSIDE RECORDS SUMMARY | 2024-06-07 13:53 | XMS_ITS | Encounter Summary ---
Author Organization [facility] Address [address] [place] [address] Phone Care Team Providers Care Electrophysiology Technician Name Role Phone Ashkan Jacobson MD Primary Care Provider [phone] Encounter Details Date Type Department Care Team (Late st Contact Info) Description 03/22/2021 Documentation Only [facility] [address] [place] [place] [address] Macy Giraldo PA Social History Tobacco Use [...] [facility] [address] [place] [place] [address] Godfrey Marcum MD [address] [place] [address] [place] [phone] documented as of this encounter Visit Diagnoses Not on filedocumented in this encounter Care Teams Electrophysiology Technician Relationship Specialty Start Date End Date Ashkan Jacobson MD [address] [place] [address] PCP - General 03/09/19 documented as of this encounter
--- OUTSIDE RECORDS SUMMARY | 2024-06-07 13:53 | XMS_ITS | Encounter Summary ---
Author Organization [employer] Address [address] 7[address] [place] [address] Care Team Providers Care Cable Engineer Outside Plant Name Role Phone Ginette Fortune MD Primary Care Provide r Encounter Details Date Type Department Care Team ([facility] Contact Info) Description 06/01/2024 Orders Only [facility] External Provider, [facility] Social History Tobacco Use Types Packs/Day Years [...] Description 06/15/2024 1:15 PM EST Office Visit [facility] MEDICINE [address] [place] [phone] Ginette Fortune MD [address] [place] [phone] 07/21/2024 10:15 AM EDT Office Visit [facility] MEDICINE [address] [place] [phone] Ginette Fortune MD [address] [place], [place] [phone] documented as of this encounter Procedures Procedure Name Priority Date/Time Associated Diagnosis Comments URINALYSIS WITH REFLEX MICROSCOPIC Routine 06/01/2024 8:03 PM EST CBC WITH AUTO DIFFERENTIAL Routine 06/01/2024 6:37 PM EST LIPASE Routine 06/01/2024 6:37 PM EST HEPATIC FUNCTION PANEL Routine 06/01/2024 6:37 PM EST BASIC METABOLIC PANEL Routine 06/01/2024 6:[address] ABDOMEN PELVIS WO CONTRAST Routine 06/01/2024 4:11 PM EST documented in this encounter Results * Urinalysis w/reflex microscopic (06/01/2024 8:03 PM EST) Pathologist [facility] Color Urine Yellow [facility] Appearance Urine Clear [facility] PH 5.0 5.0 - 9.0 [facility] Glucose Urine UA Negative Negative mg/dL [facility] Urine Blood Negative Negative [facility] Specific [place] - Urine 1.015 1.005 - 1.025 [facility] Urine Protein Negative Neg-Trace mg/dL [facility] Urine Ketones Negative Negative mg/dL [facility] Nitrite Urine Negative Negative [facility] Leukocyte Esterase Urine Negative Negative [facility] 06/01/2024 8:03 PM EST 06/01/2024 8:06 PM EST Narrative [facility] - 06/01/2024 8:43 PM EST [id number], Clean Catch Generic External Data Provider LAB URINE ORDERAB LES Final Result Performing Organization Address [facility] Co de Phone Number [facility] [address] [place] [phone] * Lipase (06/01/2024 6:37 PM EST) Pathologist [facility] Lipase 34 8 - 78 U/L [facility] 06/01/2024 6:37 PM EST 06/01/2024 6:40 PM EST Generic External Data Provider LAB BLOOD ORDERAB LES Final Result Performing Organization Address [facility] de Phone Number [facility] [address] [place] [phone] * (ABNORMAL) Basic Metabolic Panel (06/01/2024 6:37 PM EST) Pathologist [facility] Sodium 145 135 - 145 mmol/L [facility] Potassium 4.0 3.3 - 5.1 mmol/L [facility] Chloride 108 96 - 108 mmol/L [facility] Carbon Dioxide 26 22 - 29 mmol/L [facility] Anion Gap 15 12 - 20 [facility] Urea Nitrogen (BUN) 24(H) 9 - 16 mg/dL [facility] Creatinine, Serum 1.28 0.5 - 1.4 mg/dL [facility] Creatinine Clr Calc Pharmacy 41.5 [facility] Comment:Provided height and weight: 154.94 cm,72.575 kg.eGFR (calculated from the MDRD study equation) and eCrCl(calculated from the Cockcroft-Gault equation) are based ondifferent parameters and may not yield comparable results.If eCrCl result is absurd, please check patient'sheight/weight. Estimated Glomerular Filt Rate 42 [facility] Comment:Chronic Kidney Disea se: Estimated GFR < 60 mL/min/1.00a8Auufnr Kidney Disease: Estimated GFR < 15 mL/min/1.73m2 Glucose 98 60 - 115 mg/dL [facility] Calcium 9.7 8.4 - 10.2 mg/dL [facility] 06/01/2024 6:37 PM EST 06/01/2024 6:40 PM EST us Generic External Data Provider LAB BLOOD ORDERAB LES Final Result [facility] [address] [place] [phone] * (ABNORMAL) Hepatic Function Panel (06/01/2024 6:37 PM EST) Bilirubin, Total 0.6 0.0 - 1.0 mg/dL [facility] Bilirubin, Direct 0.1 0.0 - 0.5 mg/dL [facility] Aspartate Amino Transferase 19 5 - 31 U/L [facility] Alanine Aminotransferase 17 0 - 31 U/L [facility] Total Protein 8.2(H) 6.5 - 8.0 g/dL [facility] Albumin Level 4.6 3.5 - 5.0 g/dL [facility] Alkaline Phosphatase 87 39 - 117 U/L [facility] 06/01/2024 6:37 PM EST 06/01/2024 6:40 PM EST us Generic External Data Provider LAB BLOOD ORDERAB LES Final Result [facility] [address] [place] [phone] * (ABNORMAL) CBC auto differential (06/01/2024 6:37 PM EST) White Blood Count 11.1(H) 4.8 - 10.8 X10*3/uL [facility] Red Blood Count 5.21 4.20 - 5.50 X10*6/uL [facility] Hemoglobin 14.4 12.0 - 16.0 g/dl [facility] Hematocrit 44.3 37.0 - 47.0 % [facility] Mean Corpuscular Volume 85.0 80.0 - 98.0 fL [facility] Mean Corpuscular Hemoglobin 27.6 27.0 - 33.0 pg [facility] Mean Corpuscular HGB Conc 32.5 31.0 - 35.0 g/dl [facility] Red Cell Distribution Width 13.6 11.0 - 16.0 % [facility] Platelet Count 234 160 - 400 X10*3/uL [facility] Mean Platelet Volume 11.8 9.4 - 12.3 fL [facility] Neutrophils Percent Auto 57.9 45 - 73 % [facility] Imm Gran Pct Auto 0.4 0.0 - 0.4 % [facility] Lymphocytes Percent Auto 28.7 20 - 40 % [facility] Monocytes Percent Auto 10.4 2 - 11 % [facility] Eosinophils Percent Auto 2.1 0 - 4 % [facility] Basophils Percent Auto 0.5 0 - 2 % [facility] NRBC Pct Auto 0.0 0.0 - 0.2 /100WBC [facility] Neutrophils Absolute Auto 6.4 2.0 - 8.3 x10*3/uL [facility] Imm Gran Abs Auto 0.04(H) 0.00 - 0.03 X10*3/uL [facility] Lymphocytes Absolute Auto 3.2 1.2 - 4.9 X10*3/uL [facility] Monocytes Absolute Auto 1.2 0.1 - 1.2 X10*3/uL [facility] Eosinophils Absolute Auto 0.2 0.0 - 0.4 X10*3/uL [facility] Basophils Absolute Auto 0.1 0.0 - 0.2 X10*3/uL [facility] NRBC Abs Auto 0.000 0.0 - 0.012 X10*3/uL [facility] 06/01/2024 6:37 PM EST 06/01/2024 6:40 PM EST us Generic External Data Provider LAB BLOOD ORDERAB LES Final Result Performing Organization Address City/State/[facility] Co de Phone Number [facility] [address] [place] [phone] * CT Abdomen Pelvis w/o Contrast (06/01/2024 4:11 PM EST) Anatomical Region Laterality Modality Body, Pelvis, Abdomen Computed T omography 06/01/2024 4:11 PM EST Narrative 06/01/2024 5:05 PM EST ? [facility] ?[address] ?[place] [address] ? CT Scan Report ? Signed ? Patient: Iverson,Rosie ?MR#: [id number] ? : 1960 ?Acct:[id number] ? Age/Sex: 63 / F ?ADM Date: 01/28/25 ? Loc: HO.ED ? Attending Dr: ? Ordering Physician: Carlotta Lees ?? Date of Service: 06/01/24 ?? Procedure(s): CT abdomen pelvis wo IV con ?? Accession Number(s): [id number] ? cc: Ginette Fortune MD; Carlotta Lees ? Report Number: ?? [id number]: Total DLP = ??474.00 mGy-cm ?? EXAMINATION: ?? CT ABDOMEN AND PELVIS WITHOUT CONTRAST ? CLINICAL INFORMATION: ?? Right flank pain. ? COMPARISON: ?? 05/11/2024. ? TECHNIQUE: ?? Multidetector volumetric imaging was performed from the superior aspect ?? of the liver through the pubic symphysis. Sagittal and coronal ?? reformatted images were obtained on the technologist's workstation. ? This CT examination was performed using dose optimization techniques as ?? appropriate, variously including the following: ?? *Automated exposure control ?? *Adjustment of mA and/or kV according to patient size (this includes ?? techniques or standardized protocols for targeted exams where dose is ?? matched to indication/reason for exam; i.e. extremities or head) ?? *Use of iterative reconstruction technique ? FINDINGS: ?? LUNG BASES: Lung bases demonstrate mild right medial lower lobe ?? scarring and mild dependent atelectasis bilaterally. ?? The heart size is normal. No pericardial effusion or pleural effusion. ?? Small hiatus hernia likely present. ? LIVER, GALLBLADDER, AND BILIARY TREE: The liver is normal in size, ?? shape, and attenuation. No focal hepatic lesion or biliary ductal ?? dilatation is present. The gallbladder is surgically absent. ? PANCREAS: Normal unenhanced appearance. ? SPLEEN: Unremarkable. ? ADRENAL GLANDS: No significant interval change in the left-sided 1.7 cm ?? adrenal mass , most likely incidental adenoma but indeterminate. ?? Right adrenal is normal. ? KIDNEYS AND URETERS: ?? -Multiple bilateral renal cysts again noted including a 5.7 cyst of the ?? upper pole right kidney, 9.8 cm cyst lower pole right kidney, a 7.3 cm ?? cyst at the upper pole of the left kidney and a 4.6 cm cyst lower pole ?? of the left kidney. ?? -There is moderate right hydronephrosis and hydroureter, without ?? evidence of obstructing calculus evident. The ureter is dilated to just ?? above the UVJ. ?? -The left ureter is normal in caliber. No left-sided hydronephrosis. ? BLADDER: Poorly distended but grossly normal. ? GASTROINTESTINAL TRACT: ?? -No acute findings. ?? -There has been prior gastric sleeve surgery. Small hiatus hernia. ?? -Normal duodenum and small bowel. ?? -No acute colonic abnormalities. Mild diverticulosis again noted. ?? -Normal appendix. ? ABDOMINAL WALL: No significant hernia is appreciated. ? LYMPH NODES: Similar enlarged left external iliac lymph node measuring ?? 1.4 cm short axis. ? VASCULAR: Unremarkable. ? PELVIC VISCERA: There has been a hysterectomy. No adnexal masses. ? OSSEOUS STRUCTURES: No suspicious bony abnormalities. Mild diffuse disc ?? bulges present at L3-4 and L4-5. ? CT/CT abdomen pelvis wo IV con ?? IMPRESSION: ?? 1. Moderate right hydroureteronephrosis with abrupt tapering to normal ?? caliber just above the UVJ. Compared with the recent exam, the degree ?? of hydronephrosis and hydroureter has improved. No obstructing calculus ?? is identified. Neoplasm is not excluded, and cystoscopy with a ?? retrograde study of the ureter is again recommended. ? 2. 1.7 cm indeterminate left adrenal nodule. In the absence of a known ?? primary malignancy, this likely represents an adenoma. If there is a ?? known primary malignancy, adrenal protocol CT is recommended. ? 3. There is a similar 1.4 cm short axis left external iliac lymph node. ? Electronically signed by: ??Jae Isidro MD ??06/01/2024 05:02 PM EST RP ?? Workstation: [id number] ? Dictated By: ?Jae Isidro MD ? Signed By: ?<Electronically signed by Jae Isidro MD in OV> ?06/01/24 1702 ? DD/ 1611 ? TD/TT: 06/01/24 1623 ? Geometrician: ? Procedure Note Melinda Radford - 06/01/[address] [address] [address] Scan Report Signed Patient: KishorJovani#: [id number] : 2Acct:[id number] Age/Sex: 63 / FADM Date: 06/01/24 Loc: HO.ED Attending Dr: Ordering Physician: Carlotta Lees Date of Service: 06/01/24 Procedure(s): CT abdomen pelvis wo IV con Accession Number(s): [id number] cc: Ginette Fortune MD; Carlotta Lees Report Number: [id number]: Total DLP = 474.00 mGy-cm EXAMINATION: CT ABDOMEN AND PELVIS WITHOUT CONTRAST CLINICAL INFORMATION: Right flank pain. COMPARISON: 05/11/2024. TECHNIQUE: Multidetector volumetric imaging was performed from the superior aspect of the liver through the pubic symphysis. Sagittal and coronal reformatted images were obtained on the technologist's workstation. This CT examination was performed using dose optimization techniques as appropriate, variously including the following: *Automated exposure control *Adjustment of mA and/or kV according to patient size (this includes techniques or standardized protocols for targeted exams where dose is matched to indication/reason for exam; i.e. extremities or head) *Use of iterative reconstruction technique FINDINGS: LUNG BASES: Lung bases demonstrate mild right medial lower lobe scarring and mild dependent atelectasis bilaterally. The heart size is normal. No pericardial effusion or pleural effusion. Small hiatus hernia likely present. LIVER, GALLBLADDER, AND BILIARY TREE: The liver is normal in size, shape, and attenuation. No focal hepatic lesion or biliary ductal dilatation is present. The gallbladder is surgically absent. PANCREAS: Normal unenhanced appearance. SPLEEN: Unremarkable. ADRENAL GLANDS: No significant interval change in the left-sided 1.7 cm adrenal mass , most likely incidental adenoma but indeterminate. Right adrenal is normal. KIDNEYS AND URETERS: -Multiple bilateral renal cysts again noted including a 5.7 cyst of the upper pole right kidney, 9.8 cm cyst lower pole right kidney, a 7.3 cm cyst at the upper pole of the left kidney and a 4.6 cm cyst lower pole of the left kidney. -There is moderate right hydronephrosis and hydroureter, without evidence of obstructing calculus evident. The ureter is dilated to just above the UVJ. -The left ureter is normal in caliber. No left-sided hydronephrosis. BLADDER: Poorly distended but grossly normal. GASTROINTESTINAL TRACT: -No acute findings. -There has been prior gastric sleeve surgery. Small hiatus hernia. -Normal duodenum and small bowel. -No acute colonic abnormalities. Mild diverticulosis again noted. -Normal appendix. ABDOMINAL WALL: No significant hernia is appreciated. LYMPH NODES: Similar enlarged left external iliac lymph node measuring 1.4 cm short axis. VASCULAR: Unremarkable. PELVIC VISCERA: There has been a hysterectomy. No adnexal masses. OSSEOUS STRUCTURES: No suspicious bony abnormalities. Mild diffuse disc bulges present at L3-4 and L4-5. CT/CT abdomen pelvis wo IV con IMPRESSION: 1. Moderate right hydroureteronephrosis with abrupt tapering to normal caliber just above the UVJ. Compared with the recent exam, the degree of hydronephrosis and hydroureter has improved. No obstructing calculus is identified. Neoplasm is not excluded, and cystoscopy with a retrograde study of the ureter is again recommended. 2. 1.7 cm indeterminate left adrenal nodule. In the absence of a known primary malignancy, this likely represents an adenoma. If there is a known primary malignancy, adrenal protocol CT is recommended. 3. There is a similar 1.4 cm short axis left external iliac lymph node. Electronically signed by: Jae Isidro MD 06/01/2024 05:02 PM [facility] Dictated By: Jae Isidro MD Signed By: <Electronically signed by Jae Isidro MD in OV> 06/01/24 1702 DD/ 1611 TD/TT: 06/01/24 1623 Geometrician: [facility] External Provider IMG CT PROCEDURES Final Result documented in this encounter Visit Diagnoses Not on filedocumented in this encounter Additional Health Concerns Assessment Noted Time PHQ-9 Depression Total Score: 0 10/21/19 24 10:02 AM EDT documented as of this encounter Care Teams Cable Engineer Outside Plant Relationship Specialty Start Date End Date Ginette Fortune MD [address] [place] [address] PCP - General Internal Medicine 10/27/23 documented as of this encounter
--- OUTSIDE RECORDS SUMMARY | 2024-06-07 13:53 | XMS_ITS | Encounter Summary ---
Author Organization [facility] Address [address] [place] [address] Phone Care Team Providers Care Lumber Tailer Name Role Phone Ashkan Jacobson MD Primary Care Provider [phone] Encounter Details Date Type Department Care Team (Late Contact Info) Description 01/06/2024 Documentation Only [facility] [address] [place] [address] Charlotte Mehta [address] [place] [address] Social History Tobacco Use Types [...] Visit [facility] [address] [place] [address] Godfrey Marcum MD [address] [place] [address] [place] [address] documented as of this encounter Visit Diagnoses Not on filedocumented in this encounter Care Teams Lumber Tailer Relationship Specialty Start Date End Date Ashkan Jacobson MD [address] [place] [address] [address] [place], [place] PCP - General 03/09/19 documented as of this encounter
--- OUTSIDE RECORDS SUMMARY | 2024-06-07 13:53 | XMS_ITS | Encounter Summary ---
Author Organization [facility] Address [address] [place] [address] Phone Care Team Providers Care Sorting Supervisor Name Role Phone Ashkan Jacobson MD Primary Care Provider [phone] Encounter Details Date Type Department Care Team (Late st Contact Info) Description 09/28/2021 Documentation Only [facility] [address] [place] [phone] Macy Giraldo PA Social History Tobacco Use [...] Visit [facility] [address] [place] [phone] Godfrey Marcum MD [address] [place] [address] [place] [phone] documented as of this encounter Visit Diagnoses Not on filedocumented in this encounter Care Teams Sorting Supervisor Relationship Specialty Start Date End Date Ashkan Jacobson MD [address] [place] [address] PCP - General 03/09/19 documented as of this encounter
--- OUTSIDE RECORDS SUMMARY | 2024-06-07 13:53 | XMS_ITS | Encounter Summary ---
Author Organization [facility] Address [address] [place] [address] Phone Care Team Providers Care Advertiser Name Role Phone Ashkan Jacobson MD Primary Care Provider [phone] Encounter Details Date Type Department Care Team (Late Contact Info) Description 07/30/2023 Documentation Only [facility] [address] [place] [address] Xochilt Crawford [place] [address] [place] [address] Social History Tobacco Use Types [...] [facility] [address] [place] [address] Godfrey Marcum MD [address] [place] [address] [place] [address] documented as of this encounter Visit Diagnoses Not on filedocumented in this encounter Care Teams Advertiser Relationship Specialty Start Date End Date Ashkan Jacobson MD [address] [place] [address] [address] [place], [place] PCP - General 03/09/19 documented as of this encounter
--- OUTSIDE RECORDS SUMMARY | 2024-06-07 13:53 | XMS_ITS | Encounter Summary ---
Author Organization [facility] Address [address] [place] [address] Phone Care Team Providers Care Supervisor Decorating Name Role Phone Ashkan Jacobson MD Primary Care Provider [phone] Encounter Details Date Type Department Care Team (Late Contact Info) Description 07/21/2023 Documentation Only [facility] [address] [place] [address] Xochilt Crawford [place] [address] [place] [address] Social History Tobacco Use Types [...] Visit [facility] [address] [place] [address] Godfrey Marcum MD [address] [place] [address] [place] [address] documented as of this encounter Visit Diagnoses Not on filedocumented in this encounter Care Teams Supervisor Decorating Relationship Specialty Start Date End Date Ashkan Jacobson MD [address] [place] [address] [address] [place], [place] PCP - General 03/09/19 documented as of this encounter
--- OUTSIDE RECORDS SUMMARY | 2024-06-07 13:53 | XMS_ITS | Encounter Summary ---
Author Organization [facility] Address [address] [place] [address] Phone Care Team Providers Care Cement Sprayer Helper Name Role Phone Ashkan Jacobson MD Primary Care Provider [phone] Encounter Details Date Type Department Care Team (Late Contact Info) Description 12/19/2023 Documentation Only [facility] [address] [place] [address] Xochilt Crawford [place] [address] [place] [address] Social History Tobacco Use Types [...] [facility] [address] [place] [address] Godfrey Marcum MD [address] [place] [address] [place] [address] documented as of this encounter Visit Diagnoses Not on filedocumented in this encounter Care Teams Cement Sprayer Helper Relationship Specialty Start Date End Date Ashkan Jacobson MD [address] [place] [address] [address] [place], [place] PCP - General 03/09/19 documented as of this encounter
--- OUTSIDE RECORDS SUMMARY | 2024-06-07 13:53 | XMS_ITS | Encounter Summary ---
Author Organization [employer] Address [address] 7[address] [place] [address] Care Team Providers Care Nursing Director Name Role Phone Ginette Fortune MD Primary Care Provide r Reason for Visit * Reason Comments Transition Of Care (Tcm) HDF scheduled Encounter Details Date Type Department Care Team ([facility] st Contact Info) Description 05/14/2024 Patient Outreach [facility] [address] [place] [address] Ginette Fortune MD [address] [place] [address] Transition Of Care (Tcm) (HDF scheduled) Social [...] Admission/Visit 05/09/24 Date of Discharge 05/13/24 Facility [facility] Diagnosis Kidney Disposition Discharged Home Follow-Up [...] been scheduled for 06/03/2024 at 10:45 am withPerficient Insurance verified prior to scheduling. Patient advised to bring to appointment a photo id and insurance card. Biggest concerns for appointment at this time is--- Patient provided with education on contacting the Health Center with any questions or concerns prior to the scheduled appointment. Patient educated on extended clinic hours on Mondays and Wednesdays, and Walk-In Urgent Care Located in [facility]. Patient provided with after-hours line for [facility], , which offer night time triage service and option to transfer to instructional technology facilitator provider if needed. [facility] discharge summary has been scanned into chart documented in this encounter Plan of Treatment Upcoming Encounters Date Type Department Care Team (Late st Contact Info) Description 06/15/2024 1:15 PM EST Office Visit [facility] [address] [place] [address] Ginette Fortune MD [address] [place] [phone] 07/21/2024 10:15 AM EDT Office Visit [facility] [address] [place] [address] Ginette Fortune MD [address] [place] [address] [phone] documented as of this encounter Visit Diagnoses Not on filedocumented in this encounter Additional Health Concerns Assessment Noted Time PHQ-9 Depression Total Score: 0 10/21/19 10:02 AM EDT documented as of this encounter Care Teams Nursing Director Relationship Specialty Start Date End Date Ginette Fortune MD [address] [place] [address] [phone] PCP - General Internal Medicine 10/27/23 documented as of this encounter
--- OUTSIDE RECORDS SUMMARY | 2024-06-07 13:53 | XMS_ITS | Encounter Summary ---
Author Organization [employer] Address [address] [facility] 7t [place] [address] Care Team Providers Care Care Team Coordinator Scheduler Name Role Phone Ginette Fortune MD Primary Care Provide r Reason for Visit * Reason Onset Date Comments Hospital Follow-up 05/14/2024 Encounter Details Date Type Department Care Team ([facility] Contact Info) Description 05/14/2024 Telephone [facility] MEDICINE [address] [place] [address] Ginette Fortune MD [address] [place] [address] Hospital Follow-up Social History Tobacco Use Types [...] from pt requesting a HDF appt. Hospital: [facility] Date of admission: 05/09/2024 Discharge date: 05/13/2024 Diagnosed: Kidney problems *Send message to [place] Clinical Care Coordinators documented in this encounter Plan of Treatment Upcoming Encounters Date Type Department Care Team (Late st Contact Info) Description 06/15/2024 1:15 PM EST Office Visit [address] [address] Ginette Fortune MD [address] [place] [address] 07/21/2024 10:15 AM EDT Office Visit [address] [address] Ginette Fortune MD [address] [place] [phone] documented as of this encounter Visit Diagnoses Not on filedocumented in this encounter Additional Health Concerns Assessment Noted Time PHQ-9 Depression Total Score: 0 10/21/19 24 10:02 AM EDT documented as of this encounter Care Teams Care Team Coordinator Scheduler Relationship Specialty Start Date End Date Ginette Fortune MD [address] [place] [address] PCP - General Internal Medicine 10/27/23 documented as of this encounter
--- OUTSIDE RECORDS SUMMARY | 2024-06-07 13:53 | XMS_ITS | Encounter Summary ---
Author Organization [facility] Address [address] [place] [address] Phone Care Team Providers Care Public Events Facilities Rental Manager Name Role Phone Ashkan Jacobson MD Primary Care Provider Encounter Details Date Type Department Care Team (Late Contact Info) Description 08/21/2023 Documentation Only [facility] [address] [place] [address] Xochilt Crawford DC [address] [place] [address] Social History Tobacco Use Types [...] Visit [facility] [address] [place] [address] Godfrey Marcum MD [address] [place] [address] [place] [address] documented as of this encounter Visit Diagnoses Not on filedocumented in this encounter Care Teams Public Events Facilities Rental Manager Relationship Specialty Start Date End Date Ashkan Jacobson MD [address] [place] [address] [address] [place], [place] PCP - General 03/09/19 documented as of this encounter
--- OUTSIDE RECORDS SUMMARY | 2024-06-07 13:53 | XMS_ITS | Encounter Summary ---
Author Organization [employer] Address [address] [facility] 7t [place] [address] Care Team Providers Care Stained Glass Artist Name Role Phone Ginette Fortune MD Primary Care Provide r Encounter Details Date Type Department Care Team (Late st Contact Info) Description 06/01/2024 Telephone [facility] MEDICINE [address] [place] [address] Francisca Lopez, MarilynD [address] [place] [address] Social History Tobacco Use Types Packs/Day Years [...] encounter Miscellaneous Notes * Telephone Encounter - Angeles Mcnair RN - 06/01/2024 2:27 PM EST TC placed to pt at phone number [phone] via [employer] watershed program manager ([employer] ID#[id number]) regarding HDF appointment on 06/03/24. No answer, LVM to call office back and ask to speak to the red team nurses. TC placed to pt at phone number [phone] via [employer] watershed program manager ([employer] ID#[id number]) regarding HDF appointment on 06/03/24. Pt states she plans on attending her HDF but is frustrated with her kidney doctor. Pt reports her kidney doctor advised her to go to the ED if her symptoms did not improve. Pt states her kidney pain has gotten worse and has been this way for 3 days. Pt denies fever, headaches,SOB, chest pain. Pt reports she has chills and if you touch her skin it is cold. Pt states, I havekidney pain, chills, and dizziness like I am floppy stepping on clouds. Pt reports she has been taking tylenol. Advised pt to come to [facility] or go to the ED to be evaluated. Pt reports she can't stand the pain anymore and will go to [facility] for evaluation. * Telephone Encounter - Francisca Lopez PharmD - 06/01/2024 1:45 PM EST Patient reported they would not be able to attend HDF appointment on 06/03/24. Stated that hospitalization was too long ago and they are already following up with nephrology. Please follow up with patient. documented in this encounter Plan of Treatment Upcoming Encounters Date Type Department Care Team (Late st Contact Info) Description 06/15/2024 1:15 PM EST Office Visit [facility] MEDICINE [address] [place] [address] Ginette Fortune MD [address] [place] [address] 07/21/2024 10:15 AM EDT Office Visit [facility] MEDICINE [address] [place] [address] Ginette Fortune MD [address] [place] [phone] documented as of this encounter Visit Diagnoses Not on filedocumented in this encounter Additional Health Concerns Assessment Noted Time PHQ-9 Depression Total Score: 0 10/21/19 24 10:02 AM EDT documented as of this encounter Care Teams Stained Glass Artist Relationship Specialty Start Date End Date Ginette Fortune MD [address] [place] [address] PCP - General Internal Medicine 10/27/23 documented as of this encounter
--- OUTSIDE RECORDS SUMMARY | 2024-06-07 13:53 | XMS_ITS | Encounter Summary ---
Author Organization [employer] Address [address] [facility] 7t [place] [address] Care Team Providers Care Travel Accommodations Rater Name Role Phone Ginette Fortune MD Primary Care Provide r Reason for Visit * Reason Onset Date Comments No Show 06/03/2024 Encounter Details Date Type Department Care Team ([facility] Contact Info) Description 06/03/2024 Telephone [facility] MEDICINE [address] [place] [address] Fozia Cantu MD [address] [place] [address] No Show Social History Tobacco Use Types Packs/Day Years [...] encounter Miscellaneous Notes * Telephone Encounter - Kamryn Ny RN - 06/03/2024 11:55 AM EST TC placed to patient [phone] in regards to below message via [employer] (LP [employer] #[id number]). A male who was with the patient took over the phone and stated the patient was in the hospital at the beginning of May and having an HDF scheduled 3 weeks after hospitalization is unacceptable. Male stated he is upset because the discharge paperwork states the patient should be seen within 1week of the hospitalization and [facility] did not follow the recommendations. Male also reports the patient was not scheduled with her PCP. RN advised male, RN understands frustrations however the reason the patient was scheduled with an alternative provider is because the PCP is on vacation during the time the patient was scheduled for an HDF. Male reports d/t the patient not being seen for an HDF within a week time frame, the patient had to return to the ED. Male reports the appointment can be rescheduled however he ONLY wants the patient to see the PCP. RN has r/s HDF for 06/15/24 at 1:15pm. Maleand patient agreed to appointment date and time. Per chart review, patient was [place] [facility] [place] for UTI, sepsis, and Hydronephrosis of right kidney. Per [facility] discharge: A stent was placed in your ureter with good response. No stone was found. will need to follow withUrology and PCP as outpatient. Drink plenty of fluids and stay well hydrated Take Ceftin for 10 more days Follow with dr Bloom in office in 2 weeks Follow with PCP for CT scan findings follow up During this hospitalization, patient also had a CT which returned showing CT scan reported 1.7 cm Adrenal gland nodule that will need further work up as outpatient with Adrenal protocol CT. to be followed by PCP. a 2 cm left external iliac nodule will be followed on same image as well . Patient then spoke to RN at [facility] on 06/01/24 and was advised to return to [facility] [place] d/t her kidney pain.Patient returned to ED on 06/01/24 and diagnosed with a stricture of R ureter and per discharge instructions: Need to follow up with urologist for further management Plan to have reconstructive surgery/stent replacement Urologist office will call you tomorrow for future plan Take pain medication as prescribe Male reports the patent is scheduled to see Dr. Bloom in 08/[address] Bloom's office yesterday and were advised the office will return call to patient by tomorrow with a sooner appointment date and time. ED and discharge summary located in chart * Telephone Encounter - Kirsty Cheung - 06/03/2024 11:12 AM EST Pt no show to hospital follow up on 06/03/2024 admitted 05/09/2024-05/13/2024 Dx kidney injury documented in this encounter Plan of Treatment Upcoming Encounters Date Type Department Care Team (Late st Contact Info) Description 06/15/2024 1:15 PM EST Office Visit [facility] MEDICINE [address] [place] [phone] Ginette Fortune MD [address] [place] [address] 07/21/2024 10:15 AM EDT Office Visit [facility] MEDICINE [address] [place] [address] Ginette Fortune MD [address] [place], [place] [phone] documented as of this encounter Visit Diagnoses Not on filedocumented in this encounter Additional Health Concerns Assessment Noted Time PHQ-9 Depression Total Score: 0 10/21/19 24 10:02 AM EDT documented as of this encounter Care Teams Travel Accommodations Rater Relationship Specialty Start Date End Date Ginette Fortune MD [address] [place] [address] PCP - General Internal Medicine 10/27/23 documented as of this encounter
--- OUTSIDE RECORDS SUMMARY | 2024-06-07 13:53 | XMS_ITS | Encounter Summary ---
Author Organization [facility] Address [address] [place] [address] Phone Care Team Providers Care Milk Truck Driver Name Role Phone Ashkan Jacobson MD Primary Care Provider [phone] Encounter Details Date Type Department Care Team (Late st Contact Info) Description 12/18/2021 Documentation Only [facility] [address] [place] [phone] Macy Giraldo PA Social History Tobacco Use [...] [facility] [address] [place] [phone] Godfrey Marcum MD [address] [place] [address] [place] [phone] documented as of this encounter Visit Diagnoses Not on filedocumented in this encounter Care Teams Milk Truck Driver Relationship Specialty Start Date End Date Ashkan Jacobson MD [address] [place] [address] PCP - General 03/09/19 documented as of this encounter
--- OUTSIDE RECORDS SUMMARY | 2024-06-07 13:54 | XMS_ITS | Clinical Summary ---
Author Organization [employer] Address [address] [facility] [address] [place] [address] Care Team Providers Care Stopboard Assembler Name Role Phone Ginette Fortune MD Primary [...] 1 sensor every 14 days 2 each 11 4 Active hydroCHLOROthiazi de 12.5 MG tabletIndications :Resistant hypertension Take 1 tablet (12.5 mg) by mouth Once per day. 30 tablet 2 4 01/27/20 25 Active Blood Pressure Monitoring (Blood Pressure Cuff) miscIndications:P rimary hypertension 1 each Once daily. 1 each 4 Active clonazePAM (KlonoPIN) 0.5 MG tablet Take 1-2 tablets by mouth if needed each day for anxiety. 4 Active Continuous Glucose Agricultural Equipment Sales Engineer (FreeStyle Jame 2 [place]) device 4 Active docusate sodium (Colace) 100 MG capsule Take 1 capsule by mouth 2 times daily. 2 Active FLUoxetine (PROzac) 40 MG capsule Take 1 capsule by mouth Once per day. 2 Active gabapentin (Neurontin) 400 MG capsule Take 1 capsule by mouth at bedtime. 2 Active Artificial Tears 0.2-0.2-1 % solution INSTILL 1 DROP BOTH EYES TWICE DAILY 4 Active Mounjaro 2.5 MG/0.5ML solution auto-injector Inject 2.5 mg under the skin 1 (one) time per week. 4 Active traZODone (Desyrel) 50 MG tablet Take 1-3 tablets by mouth if needed at bedtime for sleep. Active Active Problems Problem Noted Date Diagnosed [...] Thyroid nodule 01/27/2024 Type 2 diabetes mellitus, [facility] long-term current use of insulin 10/21/2023 Assessment [...] weight management Griffin Cuellar NP (located on [address] [place] [address] phone [phone]) Diabetes is: controlled - Lab Results Component [...] and psychiatrist Keiko Philippe located on [address] [place] [address] phone [phone] it is being prescribed for her trazodone, [...] Encounters Date Type Department Care Team Description 06/03/2024 Telephone [facility] [address] [place] [address] Fozia Cantu MD No Show 06/01/2024 Orders Only [facility] External Provider, [facility] 06/01/2024 Telephone [facility] [address] [place] [address] Francisca Lopez, PharmD 05/14/2024 Patient Outreach [address] [address] Ginette Fortune MD Transition Of Care (Tcm) (HDF scheduled) 05/14/[address] [address] Ginette Fortune MD Hospital Follow-up 04/29/[address] [address] Ginette Fortune MD Referral 04/29/2024 Orders Only [address] [address] Ginette Fortune MD Multinodular goiter (Primary Dx) 04/15/[address] [address] Mimi Sesay [place] Results 04/14/2024 10:15 AM EST Office Visit [address] [address] Ginette Fortune MD Acquired hypothyroidism (Primary Dx); Type 2 diabetes mellitus with stage 3 chronic kidney disease, without long-term current use of insulin, unspecified whether stage 3a or 3b CKD (CMS/HCC); Resistant hypertension; Family history of Alzheimer's disease; Forgetfulness; Encounter for immunization 04/14/2024 Travel from Last 3 Months Immunizations Name [...] your housing situation today? I have abby yovani 10/09/[address] you li [...] Description 06/15/2024 1:15 PM EST Office Visit [facility] [address] [place] [address] Ginette Fortune MD [address] [place] [address] 07/21/2024 10:15 AM EDT Office Visit [facility] [address] [place] [address] Ginette Fortune MD [address] [place] [address] Health Maintenance Due Date Last Done Comments [...] , 01/30/2023, Additional history exists Pneumococcal Vaccine: 50+ Years Completed 01/27/2024 Cervical Cancer Screening Discontinued HIB [...] REFLEX MICROSCOPIC Routine 06/01/2024 8:03 PM EST LIPASE Routine 06/01/2024 6:37 PM EST BASIC METABOLIC PANEL Routine 06/01/2024 6:37 PM EST HEPATIC FUNCTION PANEL Routine 06/01/2024 6:37 PM EST CBC WITH AUTO DIFFERENTIAL Routine 06/01/2024 6:[address] ABDOMEN PELVIS WO CONTRAST Routine 06/01/2024 4:11 PM EST FL GUIDANCE IN OR Routine 05/12/2024 5:0 [...] screening mammogram for malignant neoplasm of breast HEPATITIS C AB W/REFL TO HCV RNA, QN, PCR Routine 01/27/2024 10:22 AM EDT Healthcare maintenance LIPID PANEL, STANDARD Routine 01/27/2024 10:22 AM EDT Type 2 diabetes mellitus with stage 3 chronic kidney disease, without long-term current use of insulin, unspecified whether stage 3a or 3b CKD (CMS/HCC) from Last 3 Months or Most Recently Relevant to Health Maintenance Results * Urinalysis w/reflex microscopic (06/01/2024 8:03 PM EST) Color Urine Yellow [facility] Appearance Urine Clear [facility] PH 5.0 5.0 - 9.0 [facility] Glucose Urine UA Negative Negative mg/dL [facility] Urine Blood Negative Negative [facility] Specific [place] - Urine 1.015 1.005 - 1.025 [facility] Urine Protein Negative Neg-Trace mg/dL [facility] Urine Ketones Negative Negative mg/dL [facility] Nitrite Urine Negative Negative [facility] Leukocyte Esterase Urine Negative Negative [facility] 06/01/2024 8:03 PM EST 06/01/2024 8:06 PM EST Narrative [facility] - 06/01/2024 8:43 PM EST [id number], Clean Catch us Generic External Data Provider LAB URINE ORDERAB LES Final Result [facility] [address] [place] [address] [phone] * (ABNORMAL) CBC auto differential (06/01/2024 6:37 PM EST) White Blood Count 11.1(H) 4.8 - 10.8 X10*3/uL [facility] Red Blood Count 5.21 4.20 - 5.50 X10*6/uL [facility] Hemoglobin 14.4 12.0 - 16.0 g/dl [facility] Hematocrit 44.3 37.0 - 47.0 % [facility] Mean Corpuscular Volume 85.0 80.0 - 98.0 fL [facility] Mean Corpuscular Hemoglobin 27.6 27.0 - 33.0 pg [facility] Mean Corpuscular HGB Conc 32.5 31.0 - 35.0 g/dl [facility] Red Cell Distribution Width 13.6 11.0 - 16.0 % [facility] Platelet Count 234 160 - 400 X10*3/uL [facility] Mean Platelet Volume 11.8 9.4 - 12.3 fL [facility] Neutrophils Percent Auto 57.9 45 - 73 % [facility] Imm Gran Pct Auto 0.4 0.0 - 0.4 % [facility] Lymphocytes Percent Auto 28.7 20 - 40 % [facility] Monocytes Percent Auto 10.4 2 - 11 % [facility] Eosinophils Percent Auto 2.1 0 - 4 % [facility] Basophils Percent Auto 0.5 0 - 2 % [facility] NRBC Pct Auto 0.0 0.0 - 0.2 /100WBC [facility] Neutrophils Absolute Auto 6.4 2.0 - 8.3 x10*3/uL [facility] Imm Gran Abs Auto 0.04(H) 0.00 - 0.03 X10*3/uL [facility] Lymphocytes Absolute Auto 3.2 1.2 - 4.9 X10*3/uL [facility] Monocytes Absolute Auto 1.2 0.1 - 1.2 X10*3/uL [facility] Eosinophils Absolute Auto 0.2 0.0 - 0.4 X10*3/uL [facility] Basophils Absolute Auto 0.1 0.0 - 0.2 X10*3/uL [facility] NRBC Abs Auto 0.000 0.0 - 0.012 X10*3/uL [facility] 06/01/2024 6:37 PM EST 06/01/2024 6:40 PM EST Generic External Data Provider LAB BLOOD ORDERAB LES Final Result Performing Organization Address [facility] Co de Phone Number [facility] [address] [place] [phone] * Lipase (06/01/2024 6:37 PM EST) Lipase 34 8 - 78 U/L [facility] 06/01/2024 6:37 PM EST 06/01/2024 6:40 PM EST Generic External Data Provider LAB BLOOD ORDERAB LES Final Result Performing Organization Address [facility] Co de Phone Number [facility] [address] [place] [phone] * (ABNORMAL) Hepatic Function Panel (06/01/2024 6:37 PM EST) Bilirubin, Total 0.6 0.0 - 1.0 mg/dL [facility] Bilirubin, Direct 0.1 0.0 - 0.5 mg/dL [facility] Aspartate Amino Transferase 19 5 - 31 U/L [facility] Alanine Aminotransferase 17 0 - 31 U/L [facility] Total Protein 8.2(H) 6.5 - 8.0 g/dL [facility] Albumin Level 4.6 3.5 - 5.0 g/dL [facility] Alkaline Phosphatase 87 39 - 117 U/L [facility] 06/01/2024 6:37 PM EST 06/01/2024 6:40 PM EST us Generic External Data Provider LAB BLOOD ORDERAB LES Final Result [facility] [address] [place] [phone] * (ABNORMAL) Basic Metabolic Panel (06/01/2024 6:37 PM EST) Sodium 145 135 - 145 mmol/L [facility] Potassium 4.0 3.3 - 5.1 mmol/L [facility] Chloride 108 96 - 108 mmol/L [facility] Carbon Dioxide 26 22 - 29 mmol/L [facility] Anion Gap 15 12 - 20 [facility] Urea Nitrogen (BUN) 24(H) 9 - 16 mg/dL [facility] Creatinine, Serum 1.28 0.5 - 1.4 mg/dL [facility] Creatinine Clr Calc Pharmacy 41.5 [facility] Comment:Provided height and weight: 154.94 cm,72.575 kg.eGFR (calculated from the MDRD study equation) and eCrCl(calculated from the Cockcroft-Gault equation) are based ondifferent parameters and may not yield comparable results.If eCrCl result is absurd, please check patient'sheight/weight. Estimated Glomerular Filt Rate 42 [facility] Comment:Chronic Kidney Disea se: Estimated GFR < 60 mL/min/1.60v4Lffpvh Kidney Disease: Estimated GFR < 15 mL/min/1.73m2 Glucose 98 60 - 115 mg/dL [facility] Calcium 9.7 8.4 - 10.2 mg/dL [facility] 06/01/2024 6:37 PM EST 06/01/2024 6:40 PM EST us Generic External Data Provider LAB BLOOD ORDERAB LES Final Result [facility] [address] [place] [phone] * CT Abdomen Pelvis w/o Contrast (06/01/2024 4:11 PM EST) Only the most recent of2 resultswithin the time period is included. Anatomical Region Laterality Modality Body, Pelvis, Abdomen Computed T omography 06/01/2024 4:11 PM EST Narrative 06/01/2024 5:05 PM EST ? [facility] ?[address] ?[place] [address] ? CT Scan Report ? Signed ? Patient: Rosie Iverson ?MR#: [id number] ? : 1960 ?Acct:[id number] ? Age/Sex: 63 / F ?ADM Date: 06/01/24 ? Loc: HO.ED ? Attending Dr: ? Ordering Physician: Carlotta Lees ?? Date of Service: 06/01/24 ?? Procedure(s): CT abdomen pelvis wo IV con ?? Accession Number(s): [id number] ? cc: Ginette Fortune MD; Carlotta Lees ? Report Number: ?? [id number]: Total DLP = ??474.00 mGy-cm ?? EXAMINATION: [...] Isidro MD ??06/01/2024 05:02 PM EST RP ? Dictated By: ?Jae Isidro MD ? Signed By: ?<Electronically signed by Jae Isidro MD in OV> ?01/28/25 1702 ? DD/ 1611 ? TD/TT: 06/01/24 1623 ? Instrument Lens Grinder: ? Procedure Note Prabhakar, Image - 06/01/[address] [place] [address] [address] Scan Report Signed Patient: Jovani Iverson#: [id number] : 2Acct:[id number] Age/Sex: 63 / FADM Date: 06/01/24 Loc: HO.ED Attending Dr: Ordering Physician: Carlotta Lees Date of Service: 06/01/24 Procedure(s): CT abdomen pelvis wo IV con Accession Number(s): [id number] cc: Ginette Fortune MD; Carlotta Lees Report Number: [id number]: Total DLP = 474.00 mGy-cm EXAMINATION: CT [...] by: Jae Isidro MD 06/01/2024 05:02 PM EST RP Dictated By: Jae Isidro MD Signed By: <Electronically signed by Jae Isidro MD in OV> 06/01/24 1702 DD/ 1611 TD/TT: 06/01/24 1623 Instrument Lens Grinder: [facility] External Provider IMG CT PROCEDURES Final Result * FL Guidance in OR (05/12/2024 5:00 PM EST) Anatomical Region Laterality Modality X-Ray Angiograph y 05/12/2024 5:00 PM EST Narrative 05/13/2024 10:40 AM EST ? [facility] ?[address] ?[place] [address] ? Fluoroscopy Report ? Signed ? Patient: Iverson,Rosie ?MR#: [id number] ? : 1960 ?Acct:[id number] ? Age/Sex: 63 / F ?ADM Date: 05/11/ ? Loc: HO.S3 ?359-1 ? Attending Dr: Jayden Raymundo MD ? Ordering Physician: Renato Bloom MD ?? Date of Service: 05/12/24 ?? Procedure(s): FL guidance in OR ?? Accession Number(s): [id number] ? cc: Ginette Fortune MD; Renato Bloom [...] DD/ 1700 ? TD/TT: 05/12/24 1730 ? Instrument Lens Grinder: MSM ? Procedure Note Prabhakar, Image - 05/13/2024 [place] [address] Fluoroscopy Report Signed Patient: Jovani Iverson#: [id number] : 2Acct:[id number] Age/Sex: 63 / FADM Date: 05/11/24 Loc: HO.S3 359-[address]: Jayden Raymundo MD Ordering Physician: Renato Bloom MD Date of Service: 05/12/24 Procedure(s): FL guidance in OR Accession Number(s): [id number] cc: Ginette Fortune MD; Renato Bloom MD [...] 05/13/24 1036 DD/ 1700 TD/TT: 05/12/24 1730 Instrument Lens Grinder: LOREN [facility] External Provider IMG IR PROCEDURES Final Result * TSH W/Reflex to FT4 (04/14/2024 10:59 AM EST) Pathologist [facility] TSH reflex Free T4 0.47 0.32 - 4.0 uIU/mL [facility] Blood Venous blood specimen / Unknown 04/14/2024 10:59 AM EST 04/14/2024 1:13 PM EST Ginette Freeman MD LAB BLOOD ORDERABLES Final Result Performing Organization Address City/State/[facility] Co de Phone Number [facility] [address] [place] [phone] * (ABNORMAL) POCT HGB A1C (04/14/2024 10:13 AM EST) Pathologist [facility] Hemoglobin A1C 6.5(A) 4.0 - 6.0 % QC Media Lot # [id number] Lot# Expiration Date [id number] Blood 04/14/2024 10:1 3 AM EST Ginette Freeman MD POINT OF CARE TEST EN TER/EDIT ORDERABLES Final Result * POCT Glucose (04/14/2024 10:13 AM EST) Pathologist [facility] Glucose Blood, POC 143 60 - 200 mg/dL QC Media Lot # [id number] Lot# Expiration Date [id number] Blood Capillary blood specimen / Unknown 04/14/2024 10:13 AM EST us Ginette Freeman MD POINT OF CARE TEST EN TER/EDIT ORDERABLES Final Result * BI Mammogram Screening Tomosynthesis Bilateral (03/09/2024 1:20 PM EST) Anatomical Region Laterality Modality Breast Bilateral Mammography 03/09/2024 1:20 PM EST Narrative 03/17/2024 1:55 PM EST ? [facility] [place] ? [address] ?[place] [address] ? Mammography Report ? Signed ? Patient: IversonRosie alves ?MR#: [id number] ? : 1960 ?Acct:[id number] ? Age/Sex: 63 / F ?ADM Date: 03/09/24 ? Loc: HO.MAMMO ? Attending Dr: Ginette Freeman MD ? Ordering Physician: Ginette Fortune MD ?Results: ?? 1Negative ? Date of Service: 03/09/24 ?Follow Up: 1 Year From Orig ?? inal Mammogram ? Procedure(s): MM tomosynthesis screening BI ?? Accession Number(s): [id number] ? cc: Ginette Fortune MD ? EXAMINATION: [...] ??Amy Lu DO ??03/17/2024 01:52 PM EST ? Dictated By: ?Amy Lu DO ? Signed By: ?<Electronically signed by Amy Lu, DO in OV> ? 03/17/24 1352 ? DD/ 1320 ? TD/TT: 03/09/24 1335 ? Instrument Lens Grinder: ? Procedure Note Melinda Radford - 03/17/2024 [facility] [address] [place] [address] Dr[place], [place] [address] Mammography Report Signed Patient: Jovani Iverson#: [id number] : 2Acct:[id number] Age/Sex: 63 / FADM Date: 03/09/24 Loc: TAMMIE Attending Dr: Ginette Freeman MD Ordering Physician: Ginette Fortune MDResults: 1Negative Date of Service: 03/09/24Follow Up: 1 Year From Orig inal Mammogram Procedure(s): MM tomosynthesis screening BI Accession Number(s): [id number] cc: Ginette Fortune MD EXAMINATION: MM SCREENING [...] Amy Lu DO 03/17/2024 01:52 PM EST Dictated By: Amy Lu DO Signed By: <Electronically signed by Amy Lu DO in OV> 03/17/24 1352 DD/ 1320 TD/TT: 03/09/24 1335 Instrument Lens Grinder: us Ginette Freeman MD IMG BI PROCEDURES Fin al Result * Hepatitis C Antibody with Reflex to HCV, RNA, Quantitative, Real-Time PCR (01/27/2024 10:22 AM EDT) Hepatitis C Antibody Nonreactive Nonreactive [facility] Comment:Antibodies to HCV no t detected; does not exclude early acuteHCV infection. Blood Venous blood specimen / Unknown 01/27/2024 10:22 AM EDT 01/27/2024 11:20 AM EDT us Ginette Freeman MD LAB BLOOD ORDERABLES Final Result [facility] [address] [place] [phone] * (ABNORMAL) Lipid Panel, Standard (01/27/2024 10:22 AM EDT) Triglycerides 195(H) <150 mg/dL [facility] Comment:Desirable Triglyceri de: less than 150 mg/dLBorderline High Triglyceride 150-199 mg/dLHigh Triglyceride: 200-499 mg/dLVery High Triglyceride: greater than or equal to 5OO mg/dL Cholesterol 222(H) <200 mg/dL [facility] Comment:Desirable Cholestero l: less than 200 mg/dLBorderline High Cholesterol: 200-239 mg/dLHigh Cholesterol: greater than 239 mg/dL LDL Cholesterol Calculated 129(H) <100 mg/dL [facility] Comment:Desirable LDL: less than 100 mg/dLNear Optimal/Above Optimal LDL: 110- 129 mg/dLBorderline High LDL: 130-159 mg/dLHigh LDL: 160-189 mg/dLVery High LDL: greater than or equal to 190 mg/dL HDL Cholesterol 54 >40 mg/dL [facility] Comment:Desirable HDL: great er than 40 mg/dL Note: This HDL assay may give artificially low results in patients with liver disease. Blood Venous blood specimen / Unknown 01/27/2024 10:22 AM EDT 01/27/2024 11:20 AM EDT us Ginette Freeman MD LAB BLOOD ORDERABLES Final Result [facility] [address] [place] [phone] from Last 3 Months or Most Recently Relevant to Health Maintenance Insurance [facility] Care Teams Stopboard Assembler Relationship Specialty Start Date End Date Ginette Fortune MD [address] [place] [phone] PCP - General Internal Medicine 10/27/23
--- OUTSIDE RECORDS SUMMARY | 2024-06-07 13:54 | XMS_ITS | Encounter Summary ---
Author Organization [facility] Address [address] [place] [address] Phone Care Team Providers Care Telecommunication Lines Repairer Name Role Phone Ashkan Jacobson MD Primary Care Provider [phone] Encounter Details Date Type Department Care Team (Late Contact Info) Description 08/28/2023 Documentation Only [facility] [address] [place] [address] Xochilt Crawford [place] [address] [place] [address] Social History Tobacco Use Types [...] Visit [facility] [address] [place] [address] Godfrey Marcum MD [address] [place] [address] [place] [address] documented as of this encounter Visit Diagnoses Not on filedocumented in this encounter Care Teams Telecommunication Lines Repairer Relationship Specialty Start Date End Date Ashkan Jacobson MD [address] [place] [address] [address] [place], [place] PCP - General 03/09/19 documented as of this encounter
--- OUTSIDE RECORDS SUMMARY | 2024-06-07 13:54 | XMS_ITS | Encounter Summary ---
Author Organization [facility] Address [address] [place] [address] Phone Care Team Providers Care Gas Pumping Station Supervisor Name Role Phone Ashkan Jacobson MD Primary Care Provider Encounter Details Date Type Department Care Team (Late Contact Info) Description 02/04/2024 Documentation Only [facility] [address] [place] [address] Xochilt [place] [address] [place] [address] Social History Tobacco Use Types [...] [facility] [address] [place] [address] Godfrey Marcum MD [address] [place] [address] [place] [address] documented as of this encounter Visit Diagnoses Not on filedocumented in this encounter Care Teams Gas Pumping Station Supervisor Relationship Specialty Start Date End Date Ashkan Jacobson MD [address] [place] [address] [address] [place], [place] PCP - General 03/09/19 documented as of this encounter
--- OUTSIDE RECORDS SUMMARY | 2024-06-07 13:54 | XMS_ITS | Clinical Summary ---
Author Organization [facility] Address [address] [place] [address] Care Team Providers Care Chip Frier Name Role Phone Kaley Jacobson MD Primary Care Provider [phone] Surgical History Surgery Date Site/Laterality Comments TOTAL [...] Continued pain 03/2017, seeking 2nd opinion at [facility] History of CVA (cerebrovascu lar accident) [...] age to complete this topic Care Teams Chip Frier Relationship Specialty Start Date End Date Kaley Jacobson MD [address] [place] [phone] PCP - General Internal Medicine 03/11/17
== END 2024-06-07 13:45 | disposition home or self-care (01) ==
PROVIDERS: PCP Internal Medicine; Visit Provider Internal Medicine Cardiovascular Disease
DX: R07.9 Chest pain, unspecified (principal)
CPT/HCPCS: 93010; 99214

== ENCOUNTER → 2024-06-07 12:34 | Outpatient (BNVA) | payer OTHER, SELFPAY | PROVIDERS: PCP Internal Medicine; Visit Provider Internal Medicine Cardiovascular Disease | DX: R07.9 Chest pain, unspecified (principal); R94.31 Abnormal electrocardiogram [ECG] [EKG] | CPT/HCPCS: 93005; 99212 ==

== ENCOUNTER → 2024-06-10 12:12 | Outpatient (BNVA) | payer OTHER, SELFPAY | PROVIDERS: PCP Internal Medicine; Visit Provider Physician Assistant Surgical | DX: E66.3 Overweight (principal); L98.7 Excessive and redundant skin and subcutaneous tissue; Z71.3 Dietary counseling and surveillance; Z98.84 Bariatric surgery status; Z68.29 Body mass index [BMI] 29.0-29.9, adult | CPT/HCPCS: 99212 ==

== ENCOUNTER 2024-08-16 10:03 | Outpatient (REF) | payer OTHER, SELFPAY ==
--- NOTE | ~2024-08-16 | US_ITS ---
CLINICAL HISTORY: N13.30 - Unspecified hydronephrosis US Renal Comparison: CT/SR - CT ABDOMEN PELVIS WO IV CON - 05/11/24 07:36 EST Findings: Right kidney normal size and echotexture, 17.1 cm length. There are 2 simple appearing cysts within the right kidney, a 4.9 x 5.2 x 5.0 cm cyst within the upper pole and a 9.4 x 7.2 x 9.7 cm cyst within the lower pole Left kidney normal size and echotexture, 13.8 cm length. There is an 8.3 x 7.3 x 7.9 cm mildly complex cyst within the upper pole of the left kidney and there is a 4.9 x 3.3 x 4.2 cm simple appearing cyst within the lower pole of the left kidney. Moderate hydronephrosis of the right kidney. No hydronephrosis of the left kidney. Normal color Doppler. A left ureteral jet was documented. The right ureteral jet was not visualized. IMPRESSION: Moderate hydronephrosis of the right kidney, similar to the prior study. This document has been electronically signed by: Clarita Cash MD on 08/16/2024 16:39:21
--- OUTSIDE RECORDS SUMMARY | 2024-08-16 11:24 | XMS_ITS | Encounter Summary ---
Author Organization [facility] Address [address] [place] [address] Phone Care Team Providers Care Senior Bi Developer Name Role Phone Ashkan Jacobson MD Primary Care Provider [phone] Encounter Details Date Type Department Care Team (Late st Contact Info) Description 09/18/2021 Documentation Only [facility] [place], [address] [place] [address] Macy Giraldo PA Social History Tobacco Use [...] filedocumented in this encounter Care Teams Senior Bi Developer Relationship Specialty Start Date End Date Ashkan Jacobson MD [address] [place] [address] [address] [place], [place] PCP - General 03/09/19 documented as of this encounter
--- OUTSIDE RECORDS SUMMARY | 2024-08-16 11:24 | XMS_ITS | Clinical Summary ---
Author Organization [facility] Address [address] [place] [address] Care Team Providers Care Mayonnaise Mixer Name Role Phone Kaley Jacobson MD Primary Care Provider Unavailab le Allergies No known active allergies Medications Medication Sig Dispensed Refills Start Date End Date Status lisinopril (PRINIVIL,ZESTRIL) 40 MG tablet Take 40 mg by mouth daily. 0 Active fluoxetine (PROZAC) 20 MG capsule Take 20 mg by mouth daily. 0 Active SitaGLIPtin-MetFORMIN HCl 100-1000 MG TABLET SR 24 HR Take 1,000 mcg by mouth 2 times daily. 0 Active nystatin (MYCOSTATIN) ointment Apply to affected areas daily 30 g 6 03/12/2017 Active Diclofenac Sodium 1 % Gel Apply 4 g topically 2 times daily. 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 Wu. Continued pain 03/2017, seeking 2nd opinion at [facility] History of CVA (cerebrovascular accident ) 06/06/2017 Overview: 06/27/2016 Duplex bilat carotid US, no evidence of significant stenosis. Lipoma of left thigh 06/06/2017 Overview: 03/21/2016 bx Multiple renal cysts 06/06/2017 Overview: Bilateral, 06/04/2016 Multiple thyroid nodules 06/06/2017 Overview: US 12/2015 Multiple pulmonary nodules 06/06/2017 Overview: Bilaterally, chest CT 12/2015 Depression HTN (hypertension) Immunizations Name Administration Dates Next Due Adift-Ahtao-Lrmctncd + 10/04/2014 Varicella Titre-Positive + 10/04/2014 Social History Tobacco Use Types Packs/Day Years Used Date Smoking Tobacco: Never Tobacco Cessation:Counseling Given: Not Answered Alcohol Use Standard Drinks/Week Comments No 0 (1 standard drink = 0.6 oz pur e alcohol) Sex Assigned at Date Recorded Not on file Last Filed Vital Signs Vital Sign Reading Time Taken Comments Blood Pressure 130/80 03/12/2017 8:37 AM EST Pulse 77 03/12/2017 8:37 AM EST Temperature 36.6 ??C (97.9 ??F) 03/14/2022 10:[address] Respiratory Rate 17 03/14/2022 10:49 AM EST Oxygen Saturation - - Inhaled Oxygen Concentration - - Weight 78.9 kg (174 lb) 04/16/2022 12:51 PM EST Height 154.9 cm (5' 1 ) 04/16/2022 12:51 PM EST Body Mass Index 32.88 04/16/2022 12:51 PM EST Plan of Treatment Health Maintenance Due Date Last Done Comments Covid-19 Vaccine (#1) 1961 DIABETES/HEART DISEASE: JOSE AL CHOLESTEROL (LDL) 1979 DIABETES: ANNUAL EYE EXAM 1979 DIABETES: ANNUAL URINE PROTE IN TEST (MICROALBUMIN) 1979 DIABETES: BLOOD SUGAR CONTRO L TEST (HGBA1C) 1979 HEPATITIS C SCREENING 1979 TOBACCO CHECK/ADVISE 1979 DTAP/TDAP/TD (1 - Tdap) 1980 PNEUMOCOCCAL VACCINE FOR HIG H RISK PATIENTS (#1) 1980 CERVICAL CANCER SCREENING 1982 BASELINE HEALTH EXAM 40-64 2001 COLON CANCER SCREENING 2011 SHINGLES VACCINE (1 of 2) 2011 MAMMOGRAM 09/27/2017 09/27/2016, 09/03 (External Completion), 03/23/2015, Additional history exists DIABETES: ANNUAL FOOT EXAM 03/14/2023 03/14/2022 BMI CHECK/ADVISE 05/05/2024 INFLUENZA (Season Ended) 2025 022, 01/09/2016, 02/04/2015 Care Teams Mayonnaise Mixer Relationship Specialty Start Date End Date Kaley Jacobson MD PCP - General Internal Medicine 03/11/17
--- OUTSIDE RECORDS SUMMARY | 2024-08-16 11:24 | XMS_ITS | Continuity of Care Document ---
Author Organization [facility] Kat ronel Address [address] [place] [address] ve [address] [place] [address]- Care Team Providers Care Salesperson Wigs Name Role Phone Mateo Freeman MD, Ginette Carty Primary Care Physici an [place] [facility] [place]): 07/14/24 - 08/13/24 [facility] [address] [address] Encounter Type: Triage Allergies, Adverse Reactions, Alerts [...] 2 Refills, Maintenance, 07/05/20 1:44:00 PM EST, [facility], 154.9, cm, 01/26/20 13:53:00 EDT, Height, 83.9, kg, 01/20/19 5:07:00 EDT, Dry Weight Start Date: 07/05/20 Status: Ordered Quantity: 12.0 Unit: tablet Repeat number: 3 amLODIPine 10 mg oral tablet 1 tablet, By Mouth, Daily, # 90 tablet, 1 Refills, Maintenance, 04/15/23 7:30:00 PM EST, [facility] #[id number], 155, cm, 04/04/23 11:33:00 EST, Height Start Date: 04/15/23 Status: Ordered Quantity: 90.0 Unit: tablet Repeat number: 2 D 1000 IU oral tablet See Instructions, TAKE 1 TABLET BY MOUTH ONCE A DAY, # 90 tablet, 1 Refills, Maintenance, [facility], 154.9, cm, 01/26/20 13:53:00 EDT, Height, 83.9, kg, 01/20/19 5:07:00 EDT, Dry Weight Start Date: 08/07/20 Status: Ordered Quantity: 90.0 Unit: tablet Repeat number: 2 FLUoxetine 20 mg oral capsule 1, capsule, By Mouth, Daily, # 180 capsule, Refills 1, Tot. Refills 0, Maintenance, 08/24/20 7:16:00AM EDT, Route to Pharmacy Electronically, [facility], 154.9, cm, 01/26/20 13:53:00 EDT, Height, 83.9, kg, 01/20/19 5:07:00 EDT, Dry Weight Start Date: 08/24/20 Status: Ordered Quantity: 180.0 Unit: capsule Repeat number: 1 fluticasone 50 mcg/inh nasal spray See Instructions, SHAKE LIQUID AND USE 2 SPRAYS IN EACH NOSTRIL EVERY MORNING, # 48 Gm, 3 Refills, 04/15/23 7:29:00 PM EST, [facility] #[id number], 30, SHAKE LIQUID AND USE 2 SPRAYS IN EACH NOSTRIL EVERY MORNING, 155, cm, 04/04/23 11:33:00 EST, Height Start Date: 04/15/23 Status: Ordered Quantity: 48.0 Unit: g Repeat number: 4 gabapentin 400 mg oral capsule 1, capsule, By Mouth, Daily at bedtime, # 90 capsule, Refills 1, Tot. Refills 1, Maintenance, 05/22/21 2:58:00 PM EST, [id number], 154.9, cm, 04/04/21 10:55:00 EST, Height Start Date: 05/22/21 Status: Ordered Quantity: 90.0 Unit: capsule Repeat number: 2 lisinopril 40 mg oral tablet See Instructions, TAKE 1 TABLET BY MOUTH ONCE A DAY, # 90 tablet, 0 Refills, [facility], 154.9, cm, 09/06/20 14:25:00 EDT, Height, 83.9, kg, 01/20/19 5:07:00 EDT, Dry Weight Start Date: 09/29/20 Status: Ordered Quantity: 90.0 Unit: tablet Repeat number: 1 Maalox Plus Liquid 30 mL, By Mouth, Every 4 hours, PRN Other, Heartburn, 0 Refills, Maintenance, 01/21/19 10:24:11 AM EDT, Suspension Start Date: 01/21/19 Status: Ordered Repeat number: 1 Metoprolol Succinate ER 50 mg oral tablet, extended release TAKE 1 TABLET BY MOUTH EVERY DAY, DO NOT BREAK, CRUSH, DISSOLVE OR CHEW Start Date: 07/01/24 Status: Ordered Repeat number: 1 Mounjaro 2.5 mg/0.5 mL subcutaneous solution INJECT ONE PEN (=2.5MG) SUBCUTANEOUSLY ONCE A WEEK DIRECTED Start Date: 07/01/24 Status: Ordered Repeat number: 1 oxyCODONE 5 mg oral tablet 5 mg, 1, tablet, By Mouth, Every 6 hours, PRN, # 10 tablet, Refills 0, Tot. Refills 0, Maintenance,for pain, 07/15/24 2:22:00 PM EDT, Route to Pharmacy Electronically, [facility],Partial fill upon patient request if the prescription is for a schedule II opioid drug., 155, cm, 07/01/24 12:35:00 EST, Height, 73.9, kg, 07/15/24 10:38:00 EDT, Dry Weight Start Date: 07/15/24 Status: Ordered Quantity: 10.0 Unit: tablet Repeat number: 1 senna 187 mg oral tablet 1 tablet = 8.6 mg, By Mouth, Daily at bedtime, 0 Refills, Maintenance, 01/21/19 10:24:37 AM EDT, Tablet Start Date: 01/21/19 Status: Ordered Repeat number: 1 traZODone 50 mg oral tablet See Instructions, TAKE 1 TABLET BY MOUTH AT BEDTIME . DO NOT DRIVE AFTER TAKING THIS, # 90 tablet, Refills 1, Tot. Refills 1, Maintenance, Instructions Replace Required Details, Route to Pharmacy Electronically, [facility], 154.9, cm, 01/26/20 13:53:00 EDT, Height, 83.9, kg, 01/20/19 5:07:00 EDT, Dry Weight Start Date: 08/07/20 Status: Ordered Quantity: 90.0 Unit: tablet Repeat number: 2 Problem List Condition Confirmation Course Effective Dates [...] Care team information Care Team Personnel Name: Mateo Freeman MD, Ginette Carty Position: [facility] Outreach Member Role: PCP Address: [address] [place] [address]- Telecom: Name: Yonny Ejanna Position: [facility] Outreach Member Role: Lifetime Consulting Physician Name: Marielena POWELL, Rocio Position: [facility] SN RN Member Role: Primary Care Nurse Name: Ruben Prather RN Position: [facility] RN Member Role: Primary Care Nurse Name: Lilia Temple Position: [facility] Outreach Member Role: Lifetime Consulting Physician Name: Tony Dsouza MD Position: [facility] Physician (General Medicine) Member Role: Lifetime Consulting Physician Address: [address] [place] [address]- Telecom: Name: Eva Covarrubias Position: [facility] Outreach Member Role: Lifetime Consulting Physician Care Team Related Persons Name: MADIE JACKSON Insurance Providers Guarantor name: VIVI JACKSON [facility] Health Plan Information #: 1 Payer: [facility] CARE ALLIANCE/ONE CARE Member Number: NA Policy Number: NA Group Number: NA
--- OUTSIDE RECORDS SUMMARY | 2024-08-16 11:24 | XMS_ITS | Encounter Summary ---
Author Organization [facility] Address [facility] [place] [address] Care Team Providers Care Team Assembly Line Machine Operator Name Role Phone Kaley Jacobson MD Primary Care Provider Unavailab le Encounter Details Date Type Department Care Team Description 11/18/2017 Release of Information Medical Records [address] [place] [id number] Abstract, Provider Social History Tobacco Use Types [...] on filedocumented in this encounter Care Teams Team Assembly Line Machine Operator Relationship Specialty Start Date End Date Kaley Jacobson MD PCP - General Internal Medicine 03/11/17 documented as of this encounter
--- OUTSIDE RECORDS SUMMARY | 2024-08-16 11:24 | XMS_ITS | Encounter Summary ---
Author Organization [facility] Address [address] [place] [address] Phone Care Team Providers Care Desktop Support Manager Name Role Phone Ashkan Jacobson MD Primary Care Provider [phone] Encounter Details Date Type Department Care Team (Late st Contact Info) Description 12/18/2021 Documentation Only [facility] [place], [address] [place] [address] Macy Giraldo PA Social History [...] on filedocumented in this encounter Care Teams Desktop Support Manager Relationship Specialty Start Date End Date Ashkan Jacobson MD [address] [place] [address] [address] [place], [place] PCP - General 03/09/19 documented as of this encounter
--- OUTSIDE RECORDS SUMMARY | 2024-08-16 11:24 | XMS_ITS | Encounter Summary ---
Author Organization [facility] Address [address] [place] [address] Phone Care Team Providers Care Measurement Specialist Name Role Phone Ashkan Jacobson MD Primary Care Provider Encounter Details Date Type Department Care Team (Late st Contact Info) Description 09/28/2021 Documentation Only [facility], [address] [place] [address] Macy Giraldo PA Social History [...] on filedocumented in this encounter Care Teams Measurement Specialist Relationship Specialty Start Date End Date Ashkan Jacobson MD [address] [place] [address] [address] [place], [place] PCP - General 03/09/19 documented as of this encounter
--- OUTSIDE RECORDS SUMMARY | 2024-08-16 11:24 | XMS_ITS | Continuity of Care Document ---
Author Organization [facility] Kat r[facility] Address [address] [place] [address] Dr ve [address] [place] [address]- Care Team Providers Care Recycling Worker Name Role Phone Mateo Freeman MD, Ginette Carty Primary Care Physici an [id number] - 08/11/24 [facility] [address] [address]- Attending Physician: Hayes Cooley MD Referring Physician: Ginette Fortune MD Encounter Type: Office Visit Allergies, Adverse Reactions, [...] 2 Refills, Maintenance, 07/05/20 1:44:00 PM EST, [facility], 154.9, cm, 01/26/20 13:53:00 EDT, Height, 83.9, kg, 01/20/19 5:07:00 EDT, Dry Weight Start Date: 07/05/20 Status: Ordered Quantity: 12.0 Unit: tablet Repeat number: 3 amLODIPine 10 mg oral tablet 1 tablet, By Mouth, Daily, # 90 tablet, 1 Refills, Maintenance, 04/15/23 7:30:00 PM EST, [facility] #[id number], 155, cm, 04/04/23 11:33:00 EST, Height Start Date: 04/15/23 Status: Ordered Quantity: 90.0 Unit: tablet Repeat number: 2 D 1000 IU oral tablet See Instructions, TAKE 1 TABLET BY MOUTH ONCE A DAY, # 90 tablet, 1 Refills, Maintenance, [facility], 154.9, cm, 01/26/20 13:53:00 EDT, Height, 83.9, kg, 01/20/19 5:07:00 EDT, Dry Weight Start Date: 08/07/20 Status: Ordered Quantity: 90.0 Unit: tablet Repeat number: 2 FLUoxetine 20 mg oral capsule 1, capsule, By Mouth, Daily, # 180 capsule, Refills 1, Tot. Refills 0, Maintenance, 08/24/20 7:16:00AM EDT, Route to Pharmacy Electronically, [facility], 154.9, cm, 01/26/20 13:53:00 EDT, Height, 83.9, kg, 01/20/19 5:07:00 EDT, Dry Weight Start Date: 08/24/20 Status: Ordered Quantity: 180.0 Unit: capsule Repeat number: 1 fluticasone 50 mcg/inh nasal spray See Instructions, SHAKE LIQUID AND USE 2 SPRAYS IN EACH NOSTRIL EVERY MORNING, # 48 Gm, 3 Refills, 04/15/23 7:29:00 PM EST, [facility][id number], 30, SHAKE LIQUID AND USE 2 SPRAYS IN EACH NOSTRIL EVERY MORNING, 155, cm, 04/04/23 11:33:00 EST, Height Start Date: 04/15/23 Status: Ordered Quantity: 48.0 Unit: g Repeat number: 4 gabapentin 400 mg oral capsule 1, capsule, By Mouth, Daily at bedtime, # 90 capsule, Refills 1, Tot. Refills 1, Maintenance, 05/22/21 2:58:00 PM EST, Route to Pharmacy Electronically, [facility] #[id number], 154.9, cm, 04/04/21 10:55:00 EST, Height Start Date: 05/22/21 Status: Ordered Quantity: 90.0 Unit: capsule Repeat number: 2 lisinopril 40 mg oral tablet See Instructions, TAKE 1 TABLET BY MOUTH ONCE A DAY, # 90 tablet, 0 [facility]ills, [facility], 154.9, cm, 09/06/20 14:25:00 EDT, Height, 83.9, [...] 2:22:00 PM EDT, Route to Pharmacy Electronically, [facility],Partial fill upon patient request if the [...] Replace Required Details, Route to Pharmacy Electronically, [facility], 154.9, cm, 01/26/20 13:53:00 EDT, Height, [...] oldest [Reference Range]: 1 Height 155 cm (08/04/24 9:19 AM) Weight 73 kg (08/04/24 9:19 AM) Body Mass Index [18.5-24.99 kg/m2] 30.39 kg/m2 *>HHI* (08/04/24 9:19 AM) Weight Obtained Via Standing scale (08/04/24 9:19 AM) Social History Social History Type Response Smoking Status Never smoker entered on: 03/02/18 Sex Sex Representation Female (finding) Patient Care team information Care Team Personnel Name: Mateo Freeman MD, Ginette Carty Position: [facility] Outreach Member Role: PCP Address: [address] [place] [address] Telecom: Name: Jeanna Blancas Position: [facility] Outreach Member Role: Lifetime Consulting Physician Name: Marielena RN, Rocio Position: [facility] SN RN Member Role: Primary Care Nurse Name: Ruben Prather RN Position: [facility] RN Member Role: Primary Care Nurse Name: Lilia Temple Position: [facility] Outreach Member Role: Lifetime Consulting Physician Name: Tony Dsouza MD Position: [facility] Physician (General Medicine) Member Role: Lifetime Consulting Physician Address: [address] [place] [address] Telecom: Name: Eva Covarrubias Position: [facility] Outreach Member Role: Lifetime Consulting Physician Care Team Related Persons Name: MADIE JACKSON Insurance Providers Guarantor name: VIVI CLEMENTE Health Plan Information #: 1 Payer: [facility] [employer]/ONE CARE Member Number: [id number] Policy Number: NA Group Number: [facility] Health Plan Information #: 2 Payer: [employer] Member Number: [id number] Policy Number: NA Group Number: NA
--- OUTSIDE RECORDS SUMMARY | 2024-08-16 11:24 | XMS_ITS | Encounter Summary ---
Author Organization [facility] Address [address] [place] [address] Phone Care Team Providers Care Precipitation Equipment Tender Name Role Phone Ashkan Jacobson MD Primary Care Provider [phone] Encounter Details Date Type Department Care Team (Late st Contact Info) Description 04/04/2022 Documentation Only [facility] [place], [address] [place] [address] Macy Giraldo PA Social History [...] on filedocumented in this encounter Care Teams Precipitation Equipment Tender Relationship Specialty Start Date End Date Ashkan Jacobson MD [address] [place] [address] [address] [place], [place] PCP - General 03/09/19 documented as of this encounter
--- OUTSIDE RECORDS SUMMARY | 2024-08-16 11:24 | XMS_ITS | Encounter Summary ---
Author Organization [facility] Address [address] [place] [address] Phone Care Team Providers Care Photoengraving Proofer Name Role Phone Ashkan Jacobson MD Primary Care Provider [phone] Encounter Details Date Type Department Care Team (Late st Contact Info) Description 02/17/2024 Documentation Only [facility] [place], [address] [place] [address] [place] [address] [place] [address] Social History Tobacco Use Types [...] on filedocumented in this encounter Care Teams Photoengraving Proofer Relationship Specialty Start Date End Date Ahskan Jacobson MD [address] [place] [address] [address] [place], [place] PCP - General 03/09/19 documented as of this encounter
--- OUTSIDE RECORDS SUMMARY | 2024-08-16 11:24 | XMS_ITS | Clinical Summary ---
Author Organization [facility] [place], Address [address] [place] [address] [place] [address] Phone Care Team Providers Care Ventilation Worker Name Role Phone Ashkan Jacobson MD Primary Care Provider [phone] Allergies Active Allergy Reactions Criticality Noted Date [...] Nephrolithiasis 01/24/2021 Overview (05/26/2019): recurrent obstruction Immunizations Immunization Administration Dates Next Due Influenza, Quadrivalent, Preservative [...] 05/26/2019 1:34 PM EST Plan of Treatment Health Maintenance Due Date Last Done Comments Breast Cancer Screening 1960 Pneumococcal Vaccine: 50+ Years (1 of 2 - PCV) 1980 Colorectal Cancer Screening: Annual FOBT 2010 Colorectal Cancer Screening: Colonoscopy 2010 Colorectal Cancer Screening: Sigmoidoscopy 2010 Diabetes: Ophthalmology Exam 05/26/2019 Diabetes: Pedal Pulse Checked 05/26/2019 Diabetes: Sensory Foot Exam 05/26/2019 Diabetes: Visual Foot Exam 05/26/2019 Diabetes: Hemoglobin A1C 01/21/2024 024, 02/05/2023, 05/27/2022, Additional history exists Influenza Vaccine (Season Ended) 2025 01/24/2020 Hepatitis B Vaccine Aged Out No longe [...] AM EDT) Hemoglobin A1C 6.7(H) (4.0-5.6) % [facility] Comment: MONITORING: In known diabetic patients, hemoglobin A1c targets should be discussed with health care provider. DIAGNOSTIC USE: ??The [place] Diabetes Association (ADA) and the World Health [...] Supplement 1 Testing performed or reported by [facility], a Service of [facility], [address] [place] [address] Familia Britton MD, Barn Hand [facility]# [id number] Blood (Blood, Venous) 02/05/2023 10:48 AM EDT 02/05/2023 10:49 AM EDT Godfrey Marcum MD LAB BLOOD ORDERABLES Final Re sult [facility] from Last 3 Months or Most Recently Relevant to Health Maintenance Insurance [facility] Care Dual SNP ([id number]) [place] FAJARDO [id number] Care Teams Ventilation Worker Relationship Specialty Start Date End Date Ashkan Jacobson MD [address] [place] [address] PCP - General 03/09/19
--- OUTSIDE RECORDS SUMMARY | 2024-08-16 11:24 | XMS_ITS | Encounter Summary ---
Author Organization [email or web address] Address [address] [address] Care Team Providers Care Flue Lining Dipper Name Role Phone Ginette Fortune MD Primary Care Provide r Reason for Referral * Consultation (Routine) - Authorized Specialty Diagnoses / Procedures Referred By Eula winston Referred To Contact Orthopaedic Surgery Diagnoses Acute pain of left knee Drea Monroy MD [address] [place] [address] Phone: tel: fax: [facility] [address] [place] [address] [place] [address] Phone: tel: fax: Referral ID Status Reason Start Date Expiration Date Visits Requested Visits Authorized [id number] Authorized Specialty Services Required 11/14/2023 11/13/2024 1 1 Encounter Details Date Type Department Care Team (Late st Contact Info) Description 11/14/2023 Orders Only [facility] [address] [place], [place] [id number] Drea Monroy MD [address] [place], [place] [phone] Acute pain of left knee (Primary Dx) [...] Care Team (Late st Contact Info) Description 09/13/2024 9:00 AM EDT Office Visit [facility] [address] [place] [address] Ginette Fortune MD [address] [place] [address] Scheduled Referrals Name Type Priority Associated Diagnoses [...] documented as of this encounter Care Teams Flue Lining Dipper Relationship Specialty Start Date End Date Ginette Fortune MD [address] [place] [address] PCP - General Internal Medicine 10/27/23 documented as of this encounter
--- OUTSIDE RECORDS SUMMARY | 2024-08-16 11:24 | XMS_ITS | Encounter Summary ---
Author Organization [facility] Address [address] [place] [address] Phone Care Team Providers Care Clinical Services Professional Name Role Phone Ashkan Jacobson MD Primary Care Provider [phone] Encounter Details Date Type Department Care Team (Late st Contact Info) Description 03/22/2021 Documentation Only [facility], [address] [place] [address] Macy Giraldo PA Social History [...] on filedocumented in this encounter Care Teams Clinical Services Professional Relationship Specialty Start Date End Date Ashkan Jacobson MD [address] [place] [address] [address] [place], [place] PCP - General 03/09/19 documented as of this encounter
--- OUTSIDE RECORDS SUMMARY | 2024-08-16 11:24 | XMS_ITS | Encounter Summary ---
Author Organization [facility] Address [address] [place] [address] Phone Care Team Providers Care Bridge Design Engineer Name Role Phone Ashkan Jacobson MD Primary Care Provider [phone] Encounter Details Date Type Department Care Team (Late st Contact Info) Description 09/24/2022 Documentation Only [facility] [place], [address] [place] [address] Godfrey Marcum MD [address] [facility] [place] [address] Social History Tobacco Use Types [...] on filedocumented in this encounter Care Teams Bridge Design Engineer Relationship Specialty Start Date End Date Ashkan Jacobson MD [address] [place] [address] [address] [place], [place] PCP - General 03/09/19 documented as of this encounter
--- OUTSIDE RECORDS SUMMARY | 2024-08-16 11:24 | XMS_ITS | Encounter Summary ---
Author Organization [facility] Address [address] [place] [address] Phone Care Team Providers Care Waistline Joiner Name Role Phone Ashkan Jacobson MD Primary Care Provider [phone] Encounter Details Date Type Department Care Team (Late st Contact Info) Description 06/19/2021 Documentation Only [facility] [place], [address] [place] [address] Macy Giraldo PA Social History [...] on filedocumented in this encounter Care Teams Waistline Joiner Relationship Specialty Start Date End Date Askhan Jacobson MD [address] [place] [address] [address] [place], [place] PCP - General 03/09/19 documented as of this encounter
--- OUTSIDE RECORDS SUMMARY | 2024-08-16 11:25 | XMS_ITS | Encounter Summary ---
Author Organization [facility] Address [address] [place] [address] Phone Care Team Providers Care Furnace Cleaner Name Role Phone Ashkan Jacobson MD Primary Care Provider [phone] Encounter Details Date Type Department Care Team (Late st Contact Info) Description 02/04/2024 Documentation Only [facility] [place], [address] [place] [address] Xochilt Crawford PR [address] [place] [address] Social History Tobacco Use Types [...] on filedocumented in this encounter Care Teams Furnace Cleaner Relationship Specialty Start Date End Date Ashkan Jacobson MD [address] [place] [address] 201 [place], [place] PCP - General 03/09/19 documented as of this encounter
--- OUTSIDE RECORDS SUMMARY | 2024-08-16 11:25 | XMS_ITS | Encounter Summary ---
Author Organization [facility] Address [address] [place] [address] Phone Care Team Providers Care Inspector Automatic Typewriter Name Role Phone Ashkan Jacobson MD Primary Care Provider [phone] Encounter Details Date Type Department Care Team (Late st Contact Info) Description 07/30/2023 Documentation Only [facility] [place], [address] [place] [address] Xochilt Crawford [place] [address] [place] [address] Social History Tobacco Use Types [...] on filedocumented in this encounter Care Teams Inspector Automatic Typewriter Relationship Specialty Start Date End Date Ashkan Jacobson MD [address] [place] [address] [address] [place], [place] PCP - General 03/09/19 documented as of this encounter
--- OUTSIDE RECORDS SUMMARY | 2024-08-16 11:25 | XMS_ITS | Encounter Summary ---
Author Organization [facility] Address [address] [place] [address] Phone Care Team Providers Care Sand Conditioner Name Role Phone Ashkan Jacobson MD Primary Care Provider [phone] Encounter Details Date Type Department Care Team (Late st Contact Info) Description 08/04/2023 Documentation Only [facility] [place], [address] [place] [address] Xochilt Crawford [place] [address] [place] [address] Social History Tobacco Use Types [...] on filedocumented in this encounter Care Teams Sand Conditioner Relationship Specialty Start Date End Date Ashkan Jacobson MD [address] [place] [address] 201 [place], [place] PCP - General 03/09/19 documented as of this encounter
--- OUTSIDE RECORDS SUMMARY | 2024-08-16 11:25 | XMS_ITS | Encounter Summary ---
Author Organization [facility] Address [address] [place] [address] Phone Care Team Providers Care Kiln Worker Name Role Phone Ashkan Jacboson MD Primary Care Provider Encounter Details Date Type Department Care Team (Late st Contact Info) Description 08/21/2023 Documentation Only [facility] [place], [address] [place] [address] Xochilt Crawford [place] [address] [place] [address] Social History Tobacco Use Types [...] on filedocumented in this encounter Care Teams Kiln Worker Relationship Specialty Start Date End Date Ashkan Jacobson MD [address] [place] [address] 201 [place], [place] PCP - General 03/09/19 documented as of this encounter
--- OUTSIDE RECORDS SUMMARY | 2024-08-16 11:25 | XMS_ITS | Encounter Summary ---
Author Organization [employer] Address [address] [facility] 7t [place] [address] Care Team Providers Care Secretarial Stenographer Name Role Phone Ginette Fortune MD Primary Care Provide r Reason for Visit * Reason Onset Date Comments Hospital Follow-up 05/14/2024 Encounter Details Date Type Department Care Team ([facility] Contact Info) Description 05/14/2024 Telephone [facility] MED[facility]INE [address] [place] [address] Ginette Fortune MD [address] [place] [address] Hospital Follow-up Social History Tobacco Use Types [...] from pt requesting a HDF appt. Hospital: [facility] Date of admission: 05/09/2024 Discharge date: 05/13/2024 Diagnosed: Kidney problems *Send message to [place] Clinical Care Coordinators documented in this encounter Plan of Treatment Upcoming Encounters Date Type Department Care Team (Late st Contact Info) Description 09/13/2024 9:00 AM EDT Office Visit [facility] [address] [place] [address] Ginette Fortune MD [address] [place] [address] documented as of this encounter Visit Diagnoses Not on filedocumented in this encounter Additional Health Concerns Assessment Noted Time PHQ-9 Depression Total Score: 0 10/21/19 24 10:02 AM EDT documented as of this encounter Care Teams Secretarial Stenographer Relationship Specialty Start Date End Date Ginette Fortune MD [address] [place] [address] PCP - General Internal Medicine 10/27/23 documented as of this encounter
--- OUTSIDE RECORDS SUMMARY | 2024-08-16 11:25 | XMS_ITS | Encounter Summary ---
Author Organization [facility] Address [address] [place] [address] Phone Care Team Providers Care Quality Control Tech Name Role Phone Ashkan Jacobson MD Primary Care Provider [phone] Encounter Details Date Type Department Care Team (Late st Contact Info) Description 12/19/2023 Documentation Only [facility] [place], [address] [place] [address] Xochilt Crawford PA [address] [place] [address] Social History Tobacco Use Types [...] on filedocumented in this encounter Care Teams Quality Control Tech Relationship Specialty Start Date End Date Ashkan Jacobson MD [address] [place] [address] [address] [place], [place] PCP - General 03/09/19 documented as of this encounter
--- OUTSIDE RECORDS SUMMARY | 2024-08-16 11:25 | XMS_ITS | Encounter Summary ---
Author Organization [facility] Address [address] [place] [address] Phone Care Team Providers Care Cotton Ball Machine Tender Name Role Phone Ashkan Jacobson MD Primary Care Provider Encounter Details Date Type Department Care Team (Late st Contact Info) Description 01/06/2024 Documentation Only [facility] [place], [address] [place] [address] Charlotte Mehta [address] [place] [address] Social History Tobacco Use Types [...] on filedocumented in this encounter Care Teams Cotton Ball Machine Tender Relationship Specialty Start Date End Date Ashkan Jacobson MD [address] [place] [address] [address] [place], [place] PCP - General 03/09/19 documented as of this encounter
--- OUTSIDE RECORDS SUMMARY | 2024-08-16 11:25 | XMS_ITS | Encounter Summary ---
Author Organization [facility] Address [address] [place] [address] Phone Care Team Providers Care Dry Heat Cabinet Attendant Name Role Phone Ashkan Jacobson MD Primary Care Provider [phone] Encounter Details Date Type Department Care Team (Late st Contact Info) Description 07/21/2023 Documentation Only [facility] [place], [address] [place] [address] Xochilt Crawford PR [address] [place] [address] Social History Tobacco Use Types [...] on filedocumented in this encounter Care Teams Dry Heat Cabinet Attendant Relationship Specialty Start Date End Date Ashkan Jacobson MD [address] [place] [address] [address] [place], [place] PCP - General 03/09/19 documented as of this encounter
--- OUTSIDE RECORDS SUMMARY | 2024-08-16 11:25 | XMS_ITS | Clinical Summary ---
Author Organization [employer] Address [address] [facility] 7t [place] [address] Care Team Providers Care Senior Water/Wastewater Engineer Name Role Phone Ginette Fortune MD [...] day for anxiety. 4 Active Continuous Glucose Electric Refrigerator Servicer (FreeStyle Jame 2 [place]) device 4 Active docusate sodium (Colace) 100 [...] Active Problems Problem Noted Date Diagnosed Date Hydronephrosis 06/15/2024 Assessment & Plan (06/15/2024 5:03 PM EST): Patient reports she feels much better since hospitalization, reports she has a follow-up appointment with urology Dr. Silva I advised not to hold the urine ED precautions were reviewed with patient advised if dysuria fever malaise nausea vomiting to go immediately to the emergency room Family history of Alzheimer's disease 04/14/2024 Forgetfulness [...] Thyroid nodule 01/27/2024 Type 2 diabetes mellitus, [facility] long-term current use of insulin 10/21/2023 Assessment & Plan (06/15/2024 5:04 PM EST): Extensive counseling about diabetic diet done I will continue only with Negin spence, I explained I will not initiate right now insulin as a precaution for hypoglycemia, likely her high glucose levels were secondary to her infection Assessment & Plan (04/14/2024 12:38 PM EST): [...] weight management Griffin Cuellar NP (located on [address] [place] [address] 234 phone [phone]) Diabetes is: controlled - Lab Results Component [...] psychiatrist Keiko Philippe located on [address] [place] [address] phone [phone] it is being prescribed for her trazodone, [...] Encounters Date Type Department Care Team Description 06/15/2024 1:15 PM EST Office Visit [facility] MEDICINE [address] [place] [phone] Ginette Fortune MD Hydronephrosis, unspecified hydronephrosis type (Primary Dx); Type 2 diabetes mellitus with stage 3 chronic kidney disease, without long-term current use of insulin, unspecified whether stage 3a or 3b CKD ([facility]) 06/15/2024 Travel 06/03/[address] [phone] Fozia Cantu MD No Show 06/01/2024 Orders Only [facility] External Provider, [facility] 06/01/2024 Telephone [facility] [address] [place] [address] Francisca Lopez, PharmD from Last 3 Months Immunizations Name Administration [...] Sign Reading Time Taken Comments Blood Pressure 115/70 06/15/2024 1:24 PM EST Pulse 75 06/15/2024 1:24 PM EST Temperature 36 ??C (96.8 ??F) 06/15/2024 1:24 PM EST Respiratory Rate 18 06/15/2024 1:24 PM EST Oxygen Saturation 99% 06/15/2024 1:24 PM EST Inhaled Oxygen Concentration - - Weight 72.6 kg (160 lb) 06/15/2024 1:24 PM EST Height 154.9 cm (5' 1 ) 06/15/2024 1:24 PM EST Body Mass Index 30.23 06/15/2024 1:24 PM EST Plan of Treatment Upcoming Encounters Date Type Department Care Team (Late st Contact Info) Description 09/13/2024 9:00 AM EDT Office Visit [facility] MED[facility]INE [address] [place] [address] Ginette Fortune MD [address] [place] [address] Health Maintenance Due Date Last Done Comments [...] 01/26/2025 01/27/2024 Mammogram 03/09/2025 03/09/2024 Tobacco Screening 06/15/2025 06/15/2024 DTaP/Tdap/Td Vaccines (2 - Td or Tdap) [...] Procedure Name Priority Date/Time Associated Diagnosis Comments POCT GLUCOSE Routine 06/15/2024 1:29 PM EST Type 2 diabetes mellitus with stage 3 chronic kidney disease, without long-term current use of insulin, unspecified whether stage 3a or 3b CKD (CMS/HCC) URINALYSIS WITH REFLEX MICROSCOPIC Routine 06/01/2024 8:03 PM EST LIPASE Routine 06/01/2024 6:37 PM EST BASIC METABOLIC PANEL Routine 06/01/2024 6:37 PM EST HEPATIC FUNCTION PANEL Routine 6:37 PM EST CBC WITH AUTO DIFFERENTIAL Routine 06/01/2024 6:[address] ABDOMEN PELVIS WO CONTRAST Routine 06/01/2024 4:11 PM EST POCT GLYCATED HEMOGLOBIN, TOTAL Routine 04/14/2024 10:13 [...] Recently Relevant to Health Maintenance Results * POCT Glucose (06/15/2024 1:29 PM EST) Glucose Blood, POC 101 60 - 200 mg/dL QC Media Lot # [id number] Lot# Expiration Date Blood Capillary blood specimen / Unknown 06/15/2024 1:29 PM EST us Ginette Freeman MD POINT OF CARE TEST EN TER/EDIT ORDERABLES Final Result * Urinalysis w/reflex microscopic (06/01/2024 8:03 PM EST) Color Urine Yellow [facility] Appearance Urine Clear [facility] PH 5.0 5.0 - 9.0 [facility] Glucose Urine UA Negative Negative mg/dL [facility] Urine Blood Negative Negative [facility] Specific [place] - Urine 1.015 1.005 - 1.025 [facility] Urine Protein Negative Neg-Trace mg/dL [facility] Urine Ketones Negative Negative mg/dL [facility] Nitrite Urine Negative Negative [facility] Leukocyte Esterase Urine Negative Negative [facility] 06/01/2024 8:03 PM EST 06/01/2024 8:06 PM EST Narrative [facility] - 06/01/2024 8:43 PM EST [id number], Clean Catch us Generic External Data Provider LAB URINE ORDERAB LES Final Result [facility] [address] [place] [address] [phone] * (ABNORMAL) CBC auto differential (06/01/2024 6:37 PM EST) White Blood Count 11.1(H) 4.8 - 10.8 X10*3/uL [facility] Red Blood Count 5.21 4.20 - 5.50 X10*6/uL [facility] Hemoglobin 14.4 12.0 - 16.0 g/dl [facility] Hematocrit 44.3 37.0 - 47.0 % [facility] Mean Corpuscular Volume 85.0 80.0 - 98.0 fL [facility] Mean Corpuscular Hemoglobin 27.6 27.0 - 33.0 pg [facility] Mean Corpuscular HGB Conc 32.5 31.0 - 35.0 g/dl [facility] Red Cell Distribution Width 13.6 11.0 - 16.0 % [facility] Platelet Count 234 160 - 400 X10*3/uL [facility] Mean Platelet Volume 11.8 9.4 - 12.3 fL [facility] Neutrophils Percent Auto 57.9 45 - 73 % [facility] Imm Gran Pct Auto 0.4 0.0 - 0.4 % [facility] Lymphocytes Percent Auto 28.7 20 - 40 % [facility] Monocytes Percent Auto 10.4 2 - 11 % [facility] Eosinophils Percent Auto 2.1 0 - 4 % [facility] Basophils Percent Auto 0.5 0 - 2 % [facility] NRBC Pct Auto 0.0 0.0 - 0.2 /100WBC [facility] Neutrophils Absolute Auto 6.4 2.0 - 8.3 x10*3/uL [facility] Imm Gran Abs Auto 0.04(H) 0.00 - 0.03 X10*3/uL [facility] Lymphocytes Absolute Auto 3.2 1.2 - 4.9 X10*3/uL [facility] Monocytes Absolute Auto 1.2 0.1 - 1.2 X10*3/uL [facility] Eosinophils Absolute Auto 0.2 0.0 - 0.4 X10*3/uL [facility] Basophils Absolute Auto 0.1 0.0 - 0.2 X10*3/uL [facility] NRBC Abs Auto 0.000 0.0 - 0.012 X10*3/uL [facility] 06/01/2024 6:37 PM EST 06/01/2024 6:40 PM EST Generic External Data Provider LAB BLOOD ORDERAB LES Final Result Performing Organization Address City/[facility]/ZIP Co de Phone Number [facility] [address] [place] [phone] * Lipase (06/01/2024 6:37 PM EST) Lipase 34 8 - 78 U/L [facility] 06/01/2024 6:37 PM EST 06/01/2024 6:40 PM EST Generic External Data Provider LAB BLOOD ORDERAB LES Final Result Performing Organization Address [facility] Co mt Phone Number [facility] [address] [place] [phone] * (ABNORMAL) Hepatic Function Panel (06/01/2024 6:37 PM EST) Bilirubin, Total 0.6 0.0 - 1.0 mg/dL [facility] Bilirubin, Direct 0.1 0.0 - 0.5 mg/dL [facility] Aspartate Amino Transferase 19 5 - 31 U/L [facility] Alanine Aminotransferase 17 0 - 31 U/L [facility] Total Protein 8.2(H) 6.5 - 8.0 g/dL [facility] Albumin Level 4.6 3.5 - 5.0 g/dL [facility] Alkaline Phosphatase 87 39 - 117 U/L [facility] 06/01/2024 6:37 PM EST 06/01/2024 6:40 PM EST us Generic External Data Provider LAB BLOOD ORDERAB LES Final Result Performing Organization Address [facility]/ZIP Co de Phone Number [facility] [address] [place] [address] [phone] * (ABNORMAL) Basic Metabolic Panel (06/01/2024 6:37 PM EST) Sodium 145 135 - 145 mmol/L [facility] Potassium 4.0 3.3 - 5.1 mmol/L [facility] Chloride 108 96 - 108 mmol/L [facility] Carbon Dioxide 26 22 - 29 mmol/L [facility] Anion Gap 15 12 - 20 [facility] Urea Nitrogen (BUN) 24(H) 9 - 16 mg/dL [facility] Creatinine, Serum 1.28 0.5 - 1.4 mg/dL [facility] Creatinine Clr Calc Pharmacy 41.5 [facility] Comment:Provided height and weight: 154.94 cm,72.575 kg.eGFR (calculated from the MDRD study equation) and eCrCl(calculated from the Cockcroft-Gault equation) are based ondifferent parameters and may not yield comparable results.If eCrCl result is absurd, please check patient'sheight/weight. Estimated Glomerular Filt Rate 42 [facility] Comment:Chronic Kidney Disea se: Estimated GFR < 60 mL/min/1.30w7Blfpoa Kidney Disease: Estimated GFR < 15 mL/min/1.73m2 Glucose 98 60 - 115 mg/dL [facility] Calcium 9.7 8.4 - 10.2 mg/dL [facility] 06/01/2024 6:37 PM EST 06/01/2024 6:40 PM EST us Generic External Data Provider LAB BLOOD ORDERAB LES Final Result Performing Organization Address City/[facility]/ZIP Co de Phone Number [facility] [address] [place] [address] [phone] * CT Abdomen Pelvis w/o Contrast (06/01/2024 4:11 PM EST) Anatomical Region Laterality Modality Body, Pelvis, Abdomen Computed T omography 06/01/2024 4:11 PM EST Narrative 06/01/2024 5:05 PM EST ? [facility] ?[address] ?[place] [address] ? CT Scan Report ? Signed ? Patient: Iverson,Rosie ?MR#: [id number] ? : 1960 ?Acct:[id number] ? Age/Sex: 63 / F ?ADM Date: 06/01/24 ? Loc: HO.ED ? Attending Dr: ? Ordering Physician: Carlotta Lees ?? Date of Service: 06/01/24 ?? Procedure(s): CT abdomen pelvis wo IV con ?? Accession Number(s): [id number] ? cc: Ginette Fortune MD; Carlotta Lees ? Report Number: ?? [id number]: Total DLP = ??474.00 mGy-cm ?? EXAMINATION: [...] DD/ 1611 ? TD/TT: 06/01/24 1623 ? Moving Picture Producer: ? Procedure Note Duglaster, Image - 06/01/[address] [place] [address] [address] Scan Report Signed Patient: Jovani Iverson#: [id number] : 1960cct:[id number] Age/Sex: 63 / FADM Date: 06/01/24 Loc: HO.ED Attending Dr: Ordering Physician: Carlotta Lees Date of Service: 06/01/24 Procedure(s): CT abdomen pelvis wo IV con Accession Number(s): [id number] cc: Ginette Fortune MD; Carlotta Lees Report Number: [id number]: Total DLP = 474.00 mGy-cm EXAMINATION: CT [...] Jae Isidro MD 06/01/2024 05:02 PM EST Dictated By: Jae Isidro MD Signed By: <Electronically signed by Jae Isidro MD in OV> 06/01/24 1702 DD/ 1611 TD/TT: 06/01/24 1623 Moving Picture Producer: [facility] External Provider IMG CT PROCEDURES Final Result * (ABNORMAL) POCT HGB A1C (04/14/2024 10:13 AM EST) Hemoglobin A1C 6.5(A) 4.0 - 6.0 % QC Media Lot # [id number] Lot# Expiration Date [id number] Blood 04/14/2024 10:1 3 AM EST Ginette Freeman MD POINT OF CARE TEST EN TER/EDIT ORDERABLES Final Result * BI Mammogram Screening Tomosynthesis Bilateral (03/09/2024 1:20 PM EST) Anatomical Region Laterality Modality Breast Bilateral Mammography 03/09/2024 1:20 PM EST Narrative 03/17/2024 1:55 PM EST ? [facility] ? [address] ?[place] [address] ? Mammography Report ? Signed ? Patient: Iverson,Rosei ?MR#: [id number] ? : 1960 ?Acct:[id number] ? Age/Sex: 63 / F ?ADM Date: 11/05/24 ? Loc: HO.MAMMO ? Attending Dr: Ginette Freeman MD ? Ordering Physician: Ginette Fortune MD ?Results: ?? 1Negative ? Date of Service: 03/09/24 ?Follow Up: 1 Year From Orig ?? inal Mammogram ? Procedure(s): MM tomosynthesis screening BI ?? Accession Number(s): [id number] ? cc: Ginette Fortune MD ? EXAMINATION: [...] DD/ 1320 ? TD/TT: 03/09/24 1335 ? Moving Picture Producer: ? Procedure Note Donotuseinterpreter, Image - 03/17/2024 [facility] [address] [place] [address] [place] [address] Mammography Report Signed Patient: Jovani Iverson#: [id number] : 2Acct:[id number] Age/Sex: 63 / FADM Date: 03/09/24 Loc: HO.MAMMO Attending Dr: Ginette Freeman MD Ordering Physician: Ginette Fortune MDResults: 1Negative Date of Service: 03/09/24Follow Up: 1 Year From Orig inal Mammogram Procedure(s): MM tomosynthesis screening BI Accession Number(s): [id number] cc: Ginette Fortune MD EXAMINATION: MM SCREENING [...] 03/17/24 1352 DD/ 1320 TD/TT: 03/09/24 1335 Moving Picture Producer: us Ginette Freeman MD IMG BI PROCEDURES Fin al Result * Hepatitis C Antibody with Reflex to HCV, RNA, Quantitative, Real-Time PCR (01/27/2024 10:22 AM EDT) Hepatitis C Antibody Nonreactive Nonreactive [facility] Comment:Antibodies to HCV no t detected; does not exclude early acuteHCV infection. Blood Venous blood specimen / Unknown 01/27/2024 10:22 AM EDT 01/27/2024 11:20 AM EDT us Ginette Freeman MD LAB BLOOD ORDERABLES Final Result [facility] [address] [place] [phone] * (ABNORMAL) Lipid Panel, Standard (01/27/2024 10:22 AM EDT) Triglycerides 195(H) <150 mg/dL [facility] Comment:Desirable Triglyceri de: less than 150 mg/dLBorderline High Triglyceride 150-199 mg/dLHigh Triglyceride: 200-499 mg/dLVery High Triglyceride: greater than or equal to 5OO mg/dL Cholesterol 222(H) <200 mg/dL [facility] Comment:Desirable Cholestero l: less than 200 mg/dLBorderline High Cholesterol: 200-239 mg/dLHigh Cholesterol: greater than 239 mg/dL LDL Cholesterol Calculated 129(H) <100 mg/dL [facility] Comment:Desirable LDL: less than 100 mg/dLNear Optimal/Above Optimal LDL: 110- 129 mg/dLBorderline High LDL: 130-159 mg/dLHigh LDL: 160-189 mg/dLVery High LDL: greater than or equal to 190 mg/dL HDL Cholesterol 54 >40 mg/dL [facility] Comment:Desirable HDL: great er than 40 mg/dL Note: This HDL assay may give artificially low results in patients with liver disease. Blood Venous blood specimen / Unknown 01/27/2024 10:22 AM EDT 01/27/2024 11:20 AM EDT Ginette Freeman MD LAB BLOOD ORDERABLES Final Result [facility] [address] [place] [address] [phone] from Last 3 Months or Most Recently Relevant to Health Maintenance Insurance [facility] Care Teams Senior Water/Wastewater Engineer Relationship Specialty Start Date End Date Ginette Fortune MD [address] [place] [address] PCP - General Internal Medicine 10/27/23
--- OUTSIDE RECORDS SUMMARY | 2024-08-16 11:25 | XMS_ITS | Encounter Summary ---
Author Organization [facility] Address [address] [place] [address] Phone Care Team Providers Care Hedis Specialist Name Role Phone Ashkan Jacobson MD Primary Care Provider [phone] Encounter Details Date Type Department Care Team (Late st Contact Info) Description 07/23/2023 Documentation Only [facility] [place], [address] [place] [address] Xochilt Crawford [place] [address] [place] [address] Social History Tobacco Use Types [...] on filedocumented in this encounter Care Teams Hedis Specialist Relationship Specialty Start Date End Date Ashkan Jacobson MD [address] [place] [address] [address] [place], [place] PCP - General 03/09/19 documented as of this encounter
--- OUTSIDE RECORDS SUMMARY | 2024-08-16 11:25 | XMS_ITS | Clinical Summary ---
Author Organization [employer] [facility] Address [address] [place] [address] Care Team Providers Care Call Center Recruiter Name Role Phone Kaley Jacobson MD Primary Care Provider [phone] Surgical History Surgery Date Site/Laterality Comments TOTAL KNEE ARTHROPLASTY 2009 PROCEDURE: ME ARTHRP KNE CONDYLE&PLATU MEDIAL&LAT COMPARTMENTS CHOLECYSTECTOMY PROCEDURE: ME LAPAROSCOPY SURG CHOLECYSTECTOMY SECTION PROCEDURE: HISTORICAL OTHER SURGICAL HISTORY Right PROCEDURE: ARTHROSCOPY PROCEDURE NEC; COMMENT: no relief of pain, even after PT Medical History Medical History Date Comments HTN (hypertension) DX:HTN (hyper tension) Depression DX:Depression Diabetic retinopathy (CMS/HC C V24, CMS/HCC V28) 06/06/2017 DX:Diabetic retinopathy (HCC ) Hyperlipidemia 06/06/2017 DX:Hyperlipidemi a Osteoarthritis 06/06/2017 DX:Osteoarthriti s; COMMENT: L knee Tear of medial meniscus of knee 06/06/2017 DX:Tear of medial meniscus of knee; COMMENT: R knee, arthroscopy Dr. Wu. Continued pain 03/2017, seeking 2nd opinion at [facility] History of CVA (cerebrovascu lar accident) 06/06/2017 DX:History of CVA (cerebrova scular accident); COMMENT: 06/27/2016 Duplex bilat carotid US, no evidence of significant stenosis involving internal carotid arteries. Type 2 diabetes with ophthal [place] manifestation (CMS/HCC V24, CMS/HCC V28) 06/06/2017 DX:Type 2 diabetes with opht halmic [...] at Not on file Legal Sex Female 2:16 AM EST Gender Identity Not on file Sexual [...] Cervical Cancer Screening: P ap Smear 1982 Pneumococcal Vaccine: 50+ Ye ars (1 of 1 - PCV) 2011 Zoster Vaccines (1 of 2) 2011 RSV Immunization Adult Patie nts (1 - Risk 60-74 years 1-dose series) 2021 Cholesterol Screening (Lipid Panel) 04/07/2022 Colorectal Cancer Screening: Colonoscopy 04/07/2022 Depression Screening 04/07/2022 HIV Screening 04/07/2022 Hepatitis C Screening 04/07/2022 Social Influencers of Health Screening 04/07/2022 Diabetes: Annual Urine Albumin-Creatinine Ratio (uACR) 04/19/2022 Diabetes: Blood Sugar Contro l Test (HGBA1C) 04/19/2022 Hypertension/CHF/CAD Annual BMP Blood Test 04/19/2022 COVID-19 Vaccine ( - 2023-2 5 season) 2024 Influenza Vaccine (Season Ended) 2025 HIB Vaccines Aged Out No longer eligi [...] patient's age to complete this topic Meningococcal B Vaccine Aged Out No l onger eligible based on patient's age to complete [...] age to complete this topic Care Teams Call Center Recruiter Relationship Specialty Start Date End Date Kaley Jacobson MD [address] [place] [phone] PCP - General Internal Medicine 03/11/17
--- OUTSIDE RECORDS SUMMARY | 2024-08-16 11:25 | XMS_ITS | Encounter Summary ---
Author Organization [facility] Address [address] [place] [address] Phone Care Team Providers Care Unload Associate Name Role Phone Ashkan Jacobson MD Primary Care Provider [phone] Encounter Details Date Type Department Care Team (Late st Contact Info) Description 08/28/2023 Documentation Only [facility] [place], [address] [place] [address] Xochilt Crawford [place] [address] [place] [address] Social History Tobacco Use Types [...] on filedocumented in this encounter Care Teams Unload Associate Relationship Specialty Start Date End Date Ashkan Jacobson MD [address] [place] [address] [address] [place], [place] PCP - General 03/09/19 documented as of this encounter
== END 2024-08-16 10:04 | disposition home or self-care (01) ==
LOC: HO.US 10:03
PROVIDERS: PCP Internal Medicine; Visit Provider Urology
DX: N13.30 Unspecified hydronephrosis (principal)
CPT/HCPCS: 76775

== ENCOUNTER → 2024-08-16 10:07 | Outpatient (BNV) | payer OTHER, SELFPAY | PROVIDERS: PCP Internal Medicine; Visit Provider Radiology Diagnostic Radiology | DX: N13.39 Other hydronephrosis (principal); N28.1 Cyst of kidney, acquired | CPT/HCPCS: 76775 ==

== ENCOUNTER 2024-08-18 12:52 | Outpatient (AMB) | payer OTHER, SELFPAY ==
--- NOTE | 2024-08-18 12:54 | MHC.OFFVIS ---
Vital Signs 08/18/24 12:57 Height 5 ft 1 in Weight 163 lb 2.273 oz BMI 30.8 BP 120/76 Blood Pressure Location Rt brachial Position Sitting Pulse 86 Pulse Source Pulse Oximeter Temp 98 F Pulse Oximetry (%) 98 Oxygen Delivery Method Room Air Intake Visit Reasons: DM Intake Note: Patient presents today for a follow-up for Type 2 Diabetes Mellitus: Last Diabetic eye exam was on: 02/03/2024 Last Podiatry exam was on: Does not see a Lab Analyst Most recent HbA1c: glucose:188 mg/dl Human Resources Office Assistant Required: Yes Human Resources Office Assistant Name: [email or web address] [id number] Information Interpreted: non-clinical & clinical Accompanied by: Spouse Allergies latex [LATEX] Allergy (Mild, Verified 08/18/24 13:19) RASH metformin Adverse Reaction (Verified 08/18/24 13:19) Unknown HPI Comments Details: 64 yo female presenting for diabetes follow up Medical history of depression, osteoporosis, right renal hydronephrosis, hypertension, hyperlipidemia, non toxic multinodular goiter She has DM type 2 diagnosed 20 years ago. Current prescription: Mounjaro 2.5 weekly (decreased from 5 weekly). Previously on Lantus 15 units, Trulicity 1.5 mg q.week which she is now off. Jame 2 downloaded active 20% time at target 81%, high 19%. She has been trouble with her sensors falling off POC A1C today is 6.6 from 6.9%. She reports that often her BG spikes for no apparent reason. She has neuropathy, retinopathy, has CKD with creatinine worsening and sees nephrology. She has also been following with urology for hypdronephrosis and UTI Eye exam UTD. stable retinopathy. MNG-following with Dr Zina MANDUJANO CONSTITUTIONAL: Denies weight loss, fever and chills. HEENT: Denies changes in vision and hearing. RESPIRATORY: Denies SOB and cough. CV: Denies palpitations and CP GI: Denies abdominal pain, nausea, vomiting and diarrhea. : Denies dysuria and urinary frequency. MSK: Denies new myalgia and joint pain. SKIN: Denies rash and pruritus. NEUROLOGICAL: Denies headache PSYCHIATRIC: Denies recent changes in mood. PHYSICAL EXAM: GENERAL: Alert and oriented x 3. NAD EYES: EOMI. Anicteric. HENT: Moist mucous membranes. No scleral icterus. Heterogenous thyroid LUNGS: Clear to auscultation bilaterally. CARDIOVASCULAR: Regular rate and rhythm. No murmur. No JVD. ABDOMEN: Soft, non-tender +bs EXTREMITIES: No edema. Non-tender. SKIN: No rashes or lesions. Warm. NEUROLOGIC: No focal neurological deficits. CN II-XII grossly intact PSYCHIATRIC: Cooperative. Appropriate mood and affect [facility] Medical History Anxiety Depression GERD (gastroesophageal reflux disease) COVID-19 vaccine series completed Tachycardia Toxic multinodul goiter Chronic renal insufficiency Nephrolithiasis Cyst, kidney, acquired Diabetic neuropathy BMI 34.0-34.9,adult BMI 35.0-35.9,adult BMI 36.0-36.9,adult Pre-op evaluation B12 deficiency Obesity (BMI 30-39.9) Non-toxic multinodular goiter Dyslipidemia Diabetic 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 with type 2 diabetes mellitus USP (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 insulin Distal radius fracture, right HTN (hypertension) Chronic kidney disease Diabetes type 2, uncontrolled Surgical History History of abdominoplasty History of surgery S/P fine needle aspiration S/P laparoscopic sleeve gastrectomy History of esophagogastroduodenoscopy (EGD) H/O colonoscopy Hx of biopsy History of partial hysterectomy History of total right knee replacement History of total left knee replacement (~2010) Hx of cholecystectomy History of section History of carpal tunnel release (~2017) Family History Father Hypertension Diabetes History of kidney cancer Mother Diabetes Hypertension Heart disease Brother Hypertension Diabetes Brother No problems noted. Son Hypertension Prediabetes Heart disease Daughter Prediabetes Social History Household Members: Spouse Housing: Apartment Are you a primary critical care technician to a significant other at home: No Do you presently have visiting nurse or other home services: No Alcohol intake: never Patient Tobacco Use Status: Never used Tobacco service: No Assessment & Plan Assessment & Plan (1) Diabetes mellitus: Code(s): E11.9 - Type 2 diabetes mellitus without complications Category: Medical Qualifiers: Diabetes mellitus type: type 2 Diabetes mellitus termite technician insulin use: without termite technician use Diabetes mellitus complication status: with hypoglycemia Diabetes mellitus complication detail: without coma Qualified Code(s): E11.649 - Type 2 diabetes mellitus with hypoglycemia without coma Plan Controlled A1C Will have her meet with personal development educator to review diabetes, CGM etc She is not having any hypoglycemia. Weight is fairly stable. She will continue mounjaro 2.5mg weekly Orders: Referrals Diabetes Education Referral E11.649 - Type 2 diabetes mellitus with hypoglycemia without coma Coding Level of Care Code Est Pt Level 4 (22968) Diagnoses Type 2 diabetes mellitus with hypoglycemia without coma, without long-term current use of insulin E11.649 Diabetes mellitus type: type 2 Diabetes mellitus termite technician insulin use: without termite technician use Diabetes mellitus complication status: with hypoglycemia Diabetes mellitus complication detail: without coma
[2024-08-18 12:57] VITALS: BP 120/76; PULSE 86; TEMP 36.6; O2SAT 98; BMI 30.8
[2024-08-18 13:28] LABS: Glucose, Whole Blood 188 mg/dL (60-115)
--- OUTSIDE RECORDS SUMMARY | 2024-08-18 15:15 | XMS_ITS | Clinical Summary ---
Author Organization [facility] Address [address] [place] [address] Care Team Providers Care Residential Substance Abuse Counselor Name Role Phone Kaley Jacobson MD Primary Care Provider [phone] Surgical History Surgery Date Site/Laterality Comments TOTAL KNEE ARTHROPLASTY 2009 PROCEDURE: RI ARTHRP KNE CONDYLE&PLATU MEDIAL&LAT COMPARTMENTS CHOLECYSTECTOMY PROCEDURE: RI LAPAROSCOPY SURG CHOLECYSTECTOMY SECTION PROCEDURE: HISTORICAL OTHER [...] Continued pain 03/2017, seeking 2nd opinion at [facility] History of CVA (cerebrovascu lar accident) [...] age to complete this topic Care Teams Residential Substance Abuse Counselor Relationship Specialty Start Date End Date Kaley Jacobson MD [address] [place] [phone] PCP - General Internal Medicine 03/11/17
--- OUTSIDE RECORDS SUMMARY | 2024-08-18 15:15 | XMS_ITS | Encounter Summary ---
Author Organization [facility] Address [address] [place] [address] Phone Care Team Providers Care Certified Pharmacy Technician Name Role Phone Ashkan Jacobson MD Primary Care Provider [phone] Encounter Details Date Type Department Care Team (Late st Contact Info) Description 06/19/2021 Documentation Only [facility] [place], [address] [place] [address] Macy Giraldo PA Social History [...] on filedocumented in this encounter Care Teams Certified Pharmacy Technician Relationship Specialty Start Date End Date Ashkan Jacobson MD [address] [place] [address] [address] [place], [place] PCP - General 03/09/19 documented as of this encounter
--- OUTSIDE RECORDS SUMMARY | 2024-08-18 15:15 | XMS_ITS | Encounter Summary ---
Author Organization [facility] Address [address] [place] [address] Phone Care Team Providers Care Voice Studies Director Name Role Phone Ashkan Jacobson MD Primary Care Provider [phone] Encounter Details Date Type Department Care Team (Late st Contact Info) Description 01/06/2024 Documentation Only [facility] [place], [address] [place] [address] Charlotte Mehta [address] [place] [address] Social History Tobacco Use Types [...] on filedocumented in this encounter Care Teams Voice Studies Director Relationship Specialty Start Date End Date Ashkan Jacobson MD [address] [place] [address] [address] [place], [place] PCP - General 03/09/19 documented as of this encounter
--- OUTSIDE RECORDS SUMMARY | 2024-08-18 15:15 | XMS_ITS | Encounter Summary ---
Author Organization [facility] Address [address] [place] [address] Phone Care Team Providers Care Card Writer Hand Name Role Phone Ashkan Jacobson MD Primary Care Provider [phone] Encounter Details Date Type Department Care Team (Late st Contact Info) Description 08/21/2023 Documentation Only [facility] [place], [address] [place] [address] Xochilt Crawford [place] [address] [place] [address] Social History Tobacco Use Types [...] on filedocumented in this encounter Care Teams Card Writer Hand Relationship Specialty Start Date End Date Ashkan Jacobson MD [address] [place] [address] [address] [place], [place] PCP - General 03/09/19 documented as of this encounter
--- OUTSIDE RECORDS SUMMARY | 2024-08-18 15:15 | XMS_ITS | Encounter Summary ---
Author Organization [facility] Address [address] [place] [address] Phone Care Team Providers Care Clamshell Engineer Name Role Phone Ashkan Jacobson MD Primary Care Provider [phone] Encounter Details Date Type Department Care Team (Late st Contact Info) Description 08/28/2023 Documentation Only [facility] [place], [address] [place] [address] Xochilt Crawford [place] [address] [place] [address] Social History Tobacco Use Types [...] on filedocumented in this encounter Care Teams Clamshell Engineer Relationship Specialty Start Date End Date Ashkan Jacobson MD [address] [place] [address] [address] [place], [place] PCP - General 03/09/19 documented as of this encounter
--- OUTSIDE RECORDS SUMMARY | 2024-08-18 15:15 | XMS_ITS | Clinical Summary ---
Author Organization [facility] Address [address] [place] [address] Care Team Providers Care Director Of Provider Relations Name Role Phone Kaley Jacobson MD Primary [...] Continued pain 03/2017, seeking 2nd opinion at [facility] History of CVA (cerebrovascular accident ) 06/06/2017 Overview: 06/27/2016 Duplex bilat carotid US, no evidence of significant stenosis. Lipoma of left thigh 06/06/2017 Overview: 03/21/2016 bx Multiple renal cysts 06/06/2017 Overview: Bilateral, 06/04/2016 Multiple thyroid nodules 06/06/2017 Overview: US 12/2015 Multiple pulmonary nodules 06/06/2017 Overview: Bilaterally, chest CT 12/2015 Depression HTN (hypertension) Immunizations Name Administration Dates Next Due Imbmb-Gqzky-Xtjhopeg + 10/04/2014 Varicella Titre-Positive + 10/04/2014 Social [...] Ended) 2025 022, 01/09/2016, 02/04/2015 Care Teams Director Of Provider Relations Relationship Specialty Start Date End Date Kaley Jacobson MD PCP - General Internal Medicine 03/11/17
--- OUTSIDE RECORDS SUMMARY | 2024-08-18 15:15 | XMS_ITS | Encounter Summary ---
Author Organization [facility] Address [address] [place] [address] Phone Care Team Providers Care Timber Rider Name Role Phone Ashkan Jacobson MD Primary Care Provider [phone] Encounter Details Date Type Department Care Team (Late st Contact Info) Description 12/19/2023 Documentation Only [facility] [place], [address] [place] [address] Xochilt Crawford [place] [address] [place] [address] Social History Tobacco Use Types [...] on filedocumented in this encounter Care Teams Timber Rider Relationship Specialty Start Date End Date Ashkan Jacobson MD [address] [place] [address] [address] [place], [place] PCP - General 03/09/19 documented as of this encounter
--- OUTSIDE RECORDS SUMMARY | 2024-08-18 15:15 | XMS_ITS | Encounter Summary ---
Author Organization [facility] Address [address] [place] [address] Phone Care Team Providers Care Research And Development Technician Name Role Phone Ashkan Jacobson MD Primary Care Provider [phone] Encounter Details Date Type Department Care Team (Late st Contact Info) Description 03/22/2021 Documentation Only [facility] [place], [address] [place] [address] Macy Giraldo PA Social History [...] on filedocumented in this encounter Care Teams Research And Development Technician Relationship Specialty Start Date End Date Ashkan Jacobson MD [address] [place] [address] [address] [place], [place] PCP - General 03/09/19 documented as of this encounter
--- OUTSIDE RECORDS SUMMARY | 2024-08-18 15:15 | XMS_ITS | Encounter Summary ---
Author Organization [facility] Address [address] [place] [address] Phone Care Team Providers Care Edger Automatic Name Role Phone Ashkan Jacobson MD Primary Care Provider [phone] Encounter Details Date Type Department Care Team (Late st Contact Info) Description 04/04/2022 Documentation Only [facility] [place], [address] [place] [address] Macy Giraldo PA Social History [...] on filedocumented in this encounter Care Teams Edger Automatic Relationship Specialty Start Date End Date Ashkan Jacobson MD [address] [place] [address] [address] [place], [place] PCP - General 03/09/19 documented as of this encounter
--- OUTSIDE RECORDS SUMMARY | 2024-08-18 15:15 | XMS_ITS | Encounter Summary ---
Author Organization [facility] Address [address] [place] [address] Phone Care Team Providers Care Project Landscape Architect Name Role Phone Ashkan Jacobson MD Primary Care Provider [phone] Encounter Details Date Type Department Care Team (Late st Contact Info) Description 09/18/2021 Documentation Only [facility] [place], [address] [place] [address] Macy Giraldo PA Social History [...] on filedocumented in this encounter Care Teams Project Landscape Architect Relationship Specialty Start Date End Date Ashkan Jacobson MD [address] [place] [address] [address] [place], [place] PCP - General 03/09/19 documented as of this encounter
--- OUTSIDE RECORDS SUMMARY | 2024-08-18 15:15 | XMS_ITS | Encounter Summary ---
Author Organization [facility] Address [address] [place] [address] Phone Care Team Providers Care Hourly Shift Manager Name Role Phone Ashkan Jacobson MD Primary Care Provider [phone] Encounter Details Date Type Department Care Team (Late st Contact Info) Description 07/21/2023 Documentation Only [facility] [place], [address] [place] [address] Xochilt Crawford [place] [address] [place] [address] Social History Tobacco Use Types [...] on filedocumented in this encounter Care Teams Hourly Shift Manager Relationship Specialty Start Date End Date Ashkan Jacobson MD [address] [place] [address] [address] [place], [place] PCP - General 03/09/19 documented as of this encounter
--- OUTSIDE RECORDS SUMMARY | 2024-08-18 15:15 | XMS_ITS | Encounter Summary ---
Author Organization [facility] Address [address] [place] [address] Phone Care Team Providers Care Staffing Program Manager Name Role Phone Ashkan Jacobson MD Primary Care Provider [phone] Encounter Details Date Type Department Care Team (Late st Contact Info) Description 09/24/2022 Documentation Only [facility] [place], [address] [place] [address] Godfrey Marcum MD [address] [facility] [place] [address] Social History Tobacco Use Types [...] on filedocumented in this encounter Care Teams Staffing Program Manager Relationship Specialty Start Date End Date Ashkan Jacobson MD [address] [place] [address] [address] [place], [place] PCP - General 03/09/19 documented as of this encounter
--- OUTSIDE RECORDS SUMMARY | 2024-08-18 15:15 | XMS_ITS | Encounter Summary ---
Author Organization [facility] Address [address] [place] [address] Phone Care Team Providers Care Bristle Machine Operator Name Role Phone Ashkan Jacobson MD Primary Care Provider [phone] Encounter Details Date Type Department Care Team (Late st Contact Info) Description 08/04/2023 Documentation Only [facility] [place], [address] [place] [address] Xochilt Crawford [place] [address] [place] [address] Social History Tobacco Use Types [...] on filedocumented in this encounter Care Teams Bristle Machine Operator Relationship Specialty Start Date End Date Ashkan Jacobson MD [address] [place] [address] [address] [place], [place] PCP - General 03/09/19 documented as of this encounter
--- OUTSIDE RECORDS SUMMARY | 2024-08-18 15:15 | XMS_ITS | Encounter Summary ---
Author Organization [facility] Address [facility] [place] [address] Care Team Providers Care Improvement Engineer Name Role Phone Kaley Jacobson MD Primary Care Provider Unavailab le Encounter Details Date Type Department Care Team Description 03/14/2017 Release of Information Medical Records [address] [place] [id number] Abstract, Provider Social History Tobacco Use Types [...] on filedocumented in this encounter Care Teams Improvement Engineer Relationship Specialty Start Date End Date Kaley Jacobson MD PCP - General Internal Medicine 03/11/17 documented as of this encounter
--- OUTSIDE RECORDS SUMMARY | 2024-08-18 15:15 | XMS_ITS | Encounter Summary ---
Author Organization [facility] Address [address] [place] [address] Phone Care Team Providers Care Machine I Trimmer Name Role Phone Ashkan Jacobson MD Primary Care Provider [phone] Encounter Details Date Type Department Care Team (Late st Contact Info) Description 02/04/2024 Documentation Only [facility] [place], [address] [place] [address] Xochilt Crawford [place] [address] [place] [address] Social History Tobacco Use Types [...] filedocumented in this encounter Care Teams Machine I Trimmer Relationship Specialty Start Date End Date Ashkan Jacobson MD [address] [place] [address] [address] [place], [place] PCP - General 03/09/19 documented as of this encounter
--- OUTSIDE RECORDS SUMMARY | 2024-08-18 15:15 | XMS_ITS | Encounter Summary ---
Author Organization [facility] Address [address] [place] [address] Phone Care Team Providers Care Plate Glass Grinder Name Role Phone Ashkan Jacobson MD Primary Care Provider [phone] Encounter Details Date Type Department Care Team (Late st Contact Info) Description 12/18/2021 Documentation Only [facility] [place], [address] [place] [address] Macy Giraldo PA Social History [...] on filedocumented in this encounter Care Teams Plate Glass Grinder Relationship Specialty Start Date End Date Ashkan Jacobson MD [address] [place] [address] 201 [place], [place] PCP - General 03/09/19 documented as of this encounter
--- OUTSIDE RECORDS SUMMARY | 2024-08-18 15:15 | XMS_ITS | Clinical Summary ---
Author Organization [facility] [place], Address [address] [place] [address] [place] [address] Phone Care Team Providers Care Gear Cutting Machine Operator Name Role Phone Ashkan Jacobson MD Primary Care Provider [phone] Allergies Active Allergy Reactions Criticality Noted Date [...] AM EDT) Hemoglobin A1C 6.7(H) (4.0-5.6) % [facility] Comment: MONITORING: In known diabetic patients, hemoglobin A1c targets should be discussed with health care provider. DIAGNOSTIC USE: ??The [place] Diabetes Association (ADA) and the World Health [...] Supplement 1 Testing performed or reported by [facility], a Service of [facility], [address] [place] [address] Familia Britton MD, Chronic Care Nurse [facility]# [id number] Blood (Blood, Venous) 02/05/2023 10:48 AM EDT 02/05/2023 10:49 AM EDT Godfrey Marcum MD LAB BLOOD ORDERABLES Final Re sult [facility] from Last 3 Months or Most Recently Relevant to Health Maintenance Insurance [facility] Care Dual SNP ([id number]) K[place] FAJARDO [id number] Care Teams Gear Cutting Machine Operator Relationship Specialty Start Date End Date Ashkan Jacobson MD [address] [place] [address] PCP - General 03/09/19
--- OUTSIDE RECORDS SUMMARY | 2024-08-18 15:15 | XMS_ITS | Encounter Summary ---
Author Organization [facility] Address [address] [place] [address] Phone Care Team Providers Care Dye Tank Tender Name Role Phone Ashkan Jacobson MD Primary Care Provider [phone] Encounter Details Date Type Department Care Team (Late st Contact Info) Description 09/28/2021 Documentation Only [facility] [place], [address] [place] [address] Macy Giraldo PA Social History [...] on filedocumented in this encounter Care Teams Dye Tank Tender Relationship Specialty Start Date End Date Ashkan Jacobson MD [address] [place] [address] 201 [place], [place] PCP - General 03/09/19 documented as of this encounter
--- OUTSIDE RECORDS SUMMARY | 2024-08-18 15:15 | XMS_ITS | Encounter Summary ---
Author Organization [facility] Address [address] [place] [address] Phone Care Team Providers Care Black Jack Dealer Name Role Phone Ashkan Jacobson MD Primary Care Provider [phone] Encounter Details Date Type Department Care Team (Late st Contact Info) Description 02/17/2024 Documentation Only [facility] [place], [address] [place] [address] X[place]ilt [place] [address] [place] [address] Social History Tobacco Use Types [...] on filedocumented in this encounter Care Teams Black Jack Dealer Relationship Specialty Start Date End Date Ashkan Jacobson MD [address] [place] [address] 201 [place], [place] PCP - General 03/09/19 documented as of this encounter
--- OUTSIDE RECORDS SUMMARY | 2024-08-18 15:15 | XMS_ITS | Encounter Summary ---
Author Organization [facility] Address [facility] [place] [address] Care Team Providers Care Revenue Analyst Name Role Phone Kaley Jacobson MD Primary Care Provider Unavailab le Encounter Details Date Type Department Care Team Description 11/18/2017 Release of Information Medical Records [address] [place] [id number] Abstract, Provider Social History Tobacco Use Types [...] on filedocumented in this encounter Care Teams Revenue Analyst Relationship Specialty Start Date End Date Kaley Jacobson MD PCP - General Internal Medicine 03/11/17 documented as of this encounter
--- OUTSIDE RECORDS SUMMARY | 2024-08-18 15:15 | XMS_ITS | Encounter Summary ---
Author Organization [facility] Address [address] [place] [address] Phone Care Team Providers Care Wire Roller Name Role Phone Ashkan Jacobson MD Primary Care Provider [phone] Encounter Details Date Type Department Care Team (Late st Contact Info) Description 07/23/2023 Documentation Only [facility] [place], [address] [place] [address] Xochilt [place] [address] [place] [address] Social History Tobacco Use Types [...] on filedocumented in this encounter Care Teams Wire Roller Relationship Specialty Start Date End Date Ashkan Jacobson MD [address] [place] [address] 201 [place], [place] PCP - General 03/09/19 documented as of this encounter
--- OUTSIDE RECORDS SUMMARY | 2024-08-18 15:15 | XMS_ITS | Encounter Summary ---
Author Organization [facility] Address [address] [place] [address] Phone Care Team Providers Care Psychologist Private Practice Name Role Phone Ashkan Jacobson MD Primary Care Provider [phone] Encounter Details Date Type Department Care Team (Late st Contact Info) Description 07/30/2023 Documentation Only [facility] [place], [address] [place] [address] Xochilt [place] [address] [place] [address] Social History Tobacco Use Types [...] on filedocumented in this encounter Care Teams Psychologist Private Practice Relationship Specialty Start Date End Date Ashkan Jacobson MD [address] [place] [address] 201 [place], [place] PCP - General 03/09/19 documented as of this encounter
== END 2024-08-18 13:53 | disposition home or self-care (01) ==
LOC: HO.ENCR 12:52
PROVIDERS: PCP Internal Medicine; Visit Provider Internal Medicine
DX: E11.65 Type 2 diabetes mellitus with hyperglycemia (principal); E11.649 Type 2 diabetes mellitus with hypoglycemia without coma

== ENCOUNTER → 2024-08-18 12:52 | Outpatient (BNVA) | payer OTHER, SELFPAY | PROVIDERS: PCP Internal Medicine; Visit Provider Internal Medicine | DX: E11.649 Type 2 diabetes mellitus with hypoglycemia without coma (principal); Z79.4 Long term (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 insulin; Z79.84 Long term (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 oral hypoglycemic drugs | CPT/HCPCS: 82947; 83036; 99212 ==

== ENCOUNTER 2024-08-24 10:41 | Outpatient (AMB) | payer OTHER, SELFPAY ==
--- NOTE | 2024-08-24 10:47 | MHC.OFFVISWM ---
VS Expanded 08/24/24 10:52 BP 171/87 H Blood Pressure Location Rt brachial Blood Pressure Position Sitting Pulse 81 Pulse Source Pulse Oximeter Temp 97.5 F Temperature Source Temporal Artery Scan Pulse Oximetry 99 Oxygen Delivery Method Room Air Height 5 ft 1 in Weight 160 lb 12.8 oz BMI 30.4 Body Fat % 33.5 Body Fat Mass 53.8 Fat Free Mass 107.0 Visceral Fat Rating 9.0 Body Water % 47.1 Body Water Mass 75.6 Muscle Mass/Score 101.4 Basal Metabolic Rate/Score 1,436 Intake Visit Reasons: (OV) PO LSG 08/22/21 Allergies latex [LATEX] Allergy (Mild, Verified 08/24/24 10:50) RASH metformin Adverse Reaction (Verified 08/24/24 10:50) Unknown Medication List - Last Reconciled 08/24/24 by MADAN Nelson amlodipine 10 mg PO DAILY blood sugar diagnostic (OneTouch Ultra Test strips) As directed 3 times a day blood sugar diagnostic As directed blood-glucose meter (Bon-PrivéTouch Ultra2 Meter) As directed docusate sodium 100 mg PO BID flash glucose sensor (FreeStyle Jame 2 Sensor kit) USE DIRECTED TO TEST BLOOD SUGAR. CHANGE EVERY 10 DAYS fluoxetine 40 mg PO DAILY fluticasone propionate 50 mcg/actuation 1 spray intranasal DAILY PRN FreeStyle Jame 2 [place] (flash glucose scanning reader) As directed NS hydrochlorothiazide 12.5 mg PO DAILY lancets As directed lisinopril 40 mg PO DAILY metoprolol succinate ER 50 mg PO DAILY oxycodone 5 mg PO Q6H PRN pen needle, diabetic (Comfort EZ Pen [place]) As directed injects once a day sennosides (senna) 8.6 mg PO DAILY tirzepatide (Mounjaro) 2.5 mg subcut MO trazodone 50 - 150 mg PO BEDTIME PRN HPI Comments Details: This is a 64 yo female who is s/p LSG 08/22/2021. Presents for 3 year post op visit. Weight gain of 3.4lbs since last OV 2mo ago. No complaints of nausea, emesis, abdominal pain or reflux. Uses senna for constipation. Pt continues on Mounjaro 2.5mg prescribed by a weight management provider (Griffin Cuellar NP). Also sees this office for thyroid issues, having US to examine possible MNG. Had been having lower blood sugars at night. Now blood sugars are well controlled, pt has continuous glucose monitor. Checks BP at home, continues on lisinopril and amlodipine. Present meal plan includes: 2 Celebrate shakes- one in morning, one at night, each with 2 scoop in 8oz unsweetened almond milk 1 Celebrate protein bar 1 small meal of 2 forkfuls protein (cannot tolerate more, makes her sick), plus veg sometimes difficulty with meats (gets a stuck feeling) but tolerates eggs, yogurt without difficulty Exercise routine includes: walking on treadmill, upper body strength training 3 days a week for 60-90 minutes Pt had panniculectomy 07/15 [facility] with Dr. Cooley. Restricted from strength training/heavy lifting. She also reports Dr Bloom is considering a procedure for her to help with her hydronephrosis. [facility] Medical History Anxiety Depression GERD (gastroesophageal reflux disease) COVID-19 vaccine series completed Tachycardia Toxic multinodul goiter Chronic renal insufficiency Nephrolithiasis Cyst, kidney, acquired Diabetic neuropathy BMI 34.0-34.9,adult BMI 35.0-35.9,adult BMI 36.0-36.9,adult Pre-op evaluation B12 deficiency Obesity (BMI 30-39.9) Non-toxic multinodular goiter Dyslipidemia Diabetic 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 with type 2 diabetes mellitus MCC (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 insulin Distal radius fracture, right HTN (hypertension) Chronic kidney disease Diabetes type 2, uncontrolled Surgical History History of abdominoplasty History of surgery S/P fine needle aspiration S/P laparoscopic sleeve gastrectomy History of esophagogastroduodenoscopy (EGD) H/O colonoscopy Hx of biopsy History of partial hysterectomy History of total right knee replacement History of total left knee replacement (~2010) Hx of cholecystectomy History of section History of carpal tunnel release (~2017) Family History Father Hypertension Diabetes History of kidney cancer Mother Diabetes Hypertension Heart disease Brother Hypertension Diabetes Brother No problems noted. Son Hypertension Prediabetes Heart disease Daughter Prediabetes Social History Household Members: Spouse Housing: Apartment Are you a primary post anesthesia care unit nurse to a significant other at home: No Do you presently have visiting nurse or other home services: No Alcohol intake: never Patient Tobacco Use Status: Never used Tobacco service: No Physical Exam Vital Signs: Last Vital Signs Temp 97.5 F 08/24/24 10:52 Pulse 81 08/24/24 10:52 BP 171/87 H 08/24/24 10:52 Pulse Ox 99 08/24/24 10:52 Oxygen Delivery Method Room Air 08/24/24 10:52 BMI result Body Mass Index 30.4 Assessment & Plan Assessment & Plan (1) Hair loss: Code(s): L65.9 - Nonscarring hair loss, unspecified Category: Medical (2) S/P laparoscopic sleeve gastrectomy: Comment: 08/22/21 Code(s): Z98.84 - Bariatric surgery status Category: Surgical (3) Obese: Code(s): E66.9 - Obesity, unspecified Category: Medical Plan Dermatology referral for ongoing hair loss despite adequate nutrition, vitamin supplementation and adding biotin. Possibly her kidney issues are also contributing. Continue high protien meal plan, follow plastics instructions for activity. Per pt she will be cleared to resume normal activities in October, 3mo postop. RTC 3 mo. Orders: Referrals Dermatology Referral L65.9 - Nonscarring hair loss, unspecified
[2024-08-24 10:52] VITALS: BP 171/87; PULSE 81; TEMP 36.4; O2SAT 99; BMI 30.4
--- OUTSIDE RECORDS SUMMARY | 2024-08-24 12:43 | XMS_ITS | Encounter Summary ---
Author Organization [facility] Address [address] [place] [address] Phone Care Team Providers Care Equipment Engineer Name Role Phone Ashkan Jacobson MD Primary Care Provider [phone] Encounter Details Date Type Department Care Team (Late st Contact Info) Description 03/22/2021 Documentation Only [facility] [place], [address] [place] [address] Macy Giraldo PA Social History [...] on filedocumented in this encounter Care Teams Equipment Engineer Relationship Specialty Start Date End Date Ashkan Jacobson MD [address] [place] [address] [address] [place], [place] PCP - General 03/09/19 documented as of this encounter
--- OUTSIDE RECORDS SUMMARY | 2024-08-24 12:43 | XMS_ITS | Encounter Summary ---
Author Organization [facility] Address [address] [place] [address] Phone Care Team Providers Care Immigration Specialist Name Role Phone Ashkan Jacobson MD Primary Care Provider [phone] Encounter Details Date Type Department Care Team (Late st Contact Info) Description 04/04/2022 Documentation Only [facility] [place], [address] [place] [address] Macy Giraldo PA Social History [...] on filedocumented in this encounter Care Teams Immigration Specialist Relationship Specialty Start Date End Date Ashkan Jacobson MD [address] [place] [address] [address] [place], [place] PCP - General 03/09/19 documented as of this encounter
--- OUTSIDE RECORDS SUMMARY | 2024-08-24 12:43 | XMS_ITS | Encounter Summary ---
Author Organization [facility] Address [facility] [place] [address] Care Team Providers Care Ethnology Professor Name Role Phone Kaley Jacobson MD Primary Care Provider Unavailab le Encounter Details Date Type Department Care Team Description 03/14/2017 Release of Information Medical Records [address] [place] [id number] Abstract, Provider Social History Tobacco Use Types [...] on filedocumented in this encounter Care Teams Ethnology Professor Relationship Specialty Start Date End Date Kaley Jacobson MD PCP - General Internal Medicine 03/11/17 documented as of this encounter
--- OUTSIDE RECORDS SUMMARY | 2024-08-24 12:43 | XMS_ITS | Encounter Summary ---
Author Organization [facility] Address [address] [place] [address] Phone Care Team Providers Care Baker Paint Name Role Phone Ashkan Jacobson MD Primary Care Provider [phone] Encounter Details Date Type Department Care Team (Late st Contact Info) Description 06/19/2021 Documentation Only [facility] [place], [address] [place] [address] Macy Giraldo PA Social History [...] on filedocumented in this encounter Care Teams Baker Paint Relationship Specialty Start Date End Date Ashkan Jacobson MD [address] [place] [address] [address] [place], [place] PCP - General 03/09/19 documented as of this encounter
--- OUTSIDE RECORDS SUMMARY | 2024-08-24 12:43 | XMS_ITS | Encounter Summary ---
Author Organization [facility] Address [address] [place] [address] Phone Care Team Providers Care Emissions Engineer Name Role Phone Ashkan Jacobson MD Primary Care Provider [phone] Encounter Details Date Type Department Care Team (Late st Contact Info) Description 09/18/2021 Documentation Only [facility] [place], [address] [place] [address] Macy Giraldo PA Social History [...] on filedocumented in this encounter Care Teams Emissions Engineer Relationship Specialty Start Date End Date Ashkan Jacobson MD [address] [place] [address] 201 [place], [place] PCP - General 03/09/19 documented as of this encounter
--- OUTSIDE RECORDS SUMMARY | 2024-08-24 12:43 | XMS_ITS | Encounter Summary ---
Author Organization [facility] Address [address] [place] [address] Phone Care Team Providers Care Pipe Smoking Machine Offbearer Name Role Phone Ashkan Jacobson MD Primary Care Provider [phone] Encounter Details Date Type Department Care Team (Late st Contact Info) Description 09/28/2021 Documentation Only [facility] [place], [address] [place] [address] Macy Giraldo PA Social History [...] on filedocumented in this encounter Care Teams Pipe Smoking Machine Offbearer Relationship Specialty Start Date End Date Ashkan Jacobson MD [address] [place] [address] [address] [place], [place] PCP - General 03/09/19 documented as of this encounter
--- OUTSIDE RECORDS SUMMARY | 2024-08-24 12:44 | XMS_ITS | Encounter Summary ---
Author Organization [facility] Address [address] [place] [address] Phone Care Team Providers Care Inspector Poising Name Role Phone Ashkan Jacobson MD Primary Care Provider [phone] Encounter Details Date Type Department Care Team (Late st Contact Info) Description 02/17/2024 Documentation Only [facility] [place], [address] [place] [address] Xochilt [place] [address] [place] [address] Social History Tobacco Use Types [...] filedocumented in this encounter Care Teams Inspector Poising Relationship Specialty Start Date End Date Ashkan Jacobson MD [address] [place] [address] [address] [place], [place] PCP - General 03/09/19 documented as of this encounter
--- OUTSIDE RECORDS SUMMARY | 2024-08-24 12:44 | XMS_ITS | Clinical Summary ---
Author Organization [facility] Address [address] [place] [address] Care Team Providers Care Marketing Programs Specialist Name Role Phone Kaley Jacobson MD [...] Continued pain 03/2017, seeking 2nd opinion at [facility] History of CVA (cerebrovascular accident ) 06/06/2017 Overview: 06/27/2016 Duplex bilat carotid US, no evidence of significant stenosis. Lipoma of left thigh 06/06/2017 Overview: 03/21/2016 bx Multiple renal cysts 06/06/2017 Overview: Bilateral, 06/04/2016 Multiple thyroid nodules 06/06/2017 Overview: US 12/2015 Multiple pulmonary nodules 06/06/2017 Overview: Bilaterally, chest CT 12/2015 Depression HTN (hypertension) Immunizations Name Administration Dates Next Due [id number]-Goypczlw + 10/04/2014 Varicella Titre-Positive + 10/04/2014 Social [...] Ended) 2025 022, 01/09/2016, 02/04/2015 Care Teams Marketing Programs Specialist Relationship Specialty Start Date End Date Kaley Jacobson MD PCP - General Internal Medicine 03/11/17
--- OUTSIDE RECORDS SUMMARY | 2024-08-24 12:44 | XMS_ITS | Continuity of Care Document ---
Author Organization [facility] Address [address] [place] [address] [address] [place] [address]- Care Team Providers Care Chocolatier Name Role Phone Mateo Freeman MD, Ginette Carty Primary [facility]ici [id number]): 08[facility]13[facility]24 - 08/20/24 [facility] [address] [address]- Attending Physician: Jaja Cline Encounter Type: Office Visit Allergies, Adverse Reactions, [...] 2 Refills, Maintenance, 07/05/20 1:44:00 PM EST, [facility], 154.9, cm, 01/26/20 13:53:00 EDT, Height, 83.9, kg, 01/20/19 5:07:00 EDT, Dry Weight Start Date: 07/05/20 Status: Ordered Quantity: 12.0 Unit: tablet Repeat number: 3 amLODIPine 10 mg oral tablet 1 tablet, By Mouth, Daily, # 90 tablet, 1 Refills, Maintenance, 04/15/23 7:30:00 PM EST, [facility] #[id number], 155, cm, 04/04/23 11:33:00 EST, Height Start Date: 04/15/23 Status: Ordered Quantity: 90.0 Unit: tablet Repeat number: 2 D 1000 IU oral tablet See Instructions, TAKE 1 TABLET BY MOUTH ONCE A DAY, # 90 tablet, 1 Refills, Maintenance, [facility], 154.9, cm, 01/26/20 13:53:00 EDT, Height, 83.9, kg, 01/20/19 5:07:00 EDT, Dry Weight Start Date: 08/07/20 Status: Ordered Quantity: 90.0 Unit: tablet Repeat number: 2 FLUoxetine 20 mg oral capsule 1, capsule, By Mouth, Daily, # 180 capsule, Refills 1, Tot. Refills 0, Maintenance, 08/24/20 7:16:00AM EDT, Route to Pharmacy Electronically, [facility], 154.9, cm, 01/26/20 13:53:00 EDT, Height, 83.9, kg, 01/20/19 5:07:00 EDT, Dry Weight Start Date: 08/24/20 Status: Ordered Quantity: 180.0 Unit: capsule Repeat number: 1 fluticasone 50 mcg/inh nasal spray See Instructions, SHAKE LIQUID AND USE 2 SPRAYS IN EACH NOSTRIL EVERY MORNING, # 48 Gm, 3 Refills, 04/15/23 7:29:00 PM EST, [facility] #[id number], 30, SHAKE LIQUID AND USE 2 SPRAYS IN EACH NOSTRIL EVERY MORNING, 155, cm, 04/04/23 11:33:00 EST, Height Start Date: 04/15/23 Status: Ordered Quantity: 48.0 Unit: g Repeat number: 4 gabapentin 400 mg oral capsule 1, capsule, By Mouth, Daily at bedtime, # 90 capsule, Refills 1, Tot. Refills 1, Maintenance, 05/22/21 2:58:00 PM EST, Route to Pharmacy Electronically, [facility] #[id number], 154.9, cm, 04/04/21 10:55:00 EST, Height Start Date: 05/22/21 Status: Ordered Quantity: 90.0 Unit: capsule Repeat number: 2 lisinopril 40 mg oral tablet See Instructions, TAKE 1 TABLET BY MOUTH ONCE A DAY, # 90 tablet, 0 [facility] 154.9, cm, 09/06/20 14:25:00 EDT, Height, 83.9, [...] 2:22:00 PM EDT, Route to Pharmacy Electronically, [facility],Partial fill upon patient request if the [...] Replace Required Details, Route to Pharmacy Electronically, [email or web address], 154.9, cm, 01/26/20 13:53:00 EDT, Height, [...] oldest [Reference Range]: 1 Height 155 cm (4/11/25 9:42 AM) Weight 73.18 kg (08/13/24 9:42 AM) Body Mass Index [18.5-24.99 kg/m2] 30.46 kg/m2 *>HHI* (08/13/24 9:42 AM) Social History Social History Type Response Smoking Status Never smoker entered on: 03/02/18 Sex Sex Representation Female (finding) Patient Care team information Care Team Personnel Name: Ginette Fortune MD Position: [facility] Outreach Member Role: PCP Address: [address] [place], [place] [address] Telecom: Name: Jeanna Blancas Position: [facility] Outreach Member Role: Lifetime Consulting Physician Name: Marielena RN, Rocio Position: [facility] RN Member Role: Primary Care Nurse Name: Ruben Prather RN Position: [facility] RN Member Role: Primary Care Nurse Name: Lilia Temple Position: [facility] Outreach Member Role: Lifetime Consulting Physician Name: Tony Dsouza MD Position: [facility] Physician (General Medicine) Member Role: Lifetime Consulting Physician Address: [address] [place] [id number] Telecom: Name: Eva Covarrubias Position: [facility] Outreach Member Role: Lifetime Consulting Physician Care Team Related Persons Name: MADIE JACKSON Insurance Providers Guarantor name: VIVI JACKSON [facility] Health Plan Information #: 1 Payer: [employer] Member Number: [id number] Policy Number: NA Group Number: [facility] Health Plan Information #: 2 Payer: [employer] Member Number: [id number] Policy Number: NA Group Number: NA
--- OUTSIDE RECORDS SUMMARY | 2024-08-24 12:44 | XMS_ITS | Encounter Summary ---
Author Organization [facility] Address [address] [place] [address] Phone Care Team Providers Care Bicycle Repair Technician Name Role Phone Ashkan Jacobson MD Primary Care Provider [phone] Encounter Details Date Type Department Care Team (Late st Contact Info) Description 01/06/2024 Documentation Only [facility] [place], [address] [place] [address] Charlotte Mehta [address] [place] [address] Social History Tobacco Use Types [...] on filedocumented in this encounter Care Teams Bicycle Repair Technician Relationship Specialty Start Date End Date Ashkan Jacobson MD [address] [place] [address] [address] [place], [place] PCP - General 03/09/19 documented as of this encounter
--- OUTSIDE RECORDS SUMMARY | 2024-08-24 12:44 | XMS_ITS | Encounter Summary ---
Author Organization [facility] Address [address] [place] [address] Phone Care Team Providers Care Shoe Singer Name Role Phone Ashkan Jacobson MD Primary Care Provider [phone] Encounter Details Date Type Department Care Team (Late st Contact Info) Description 12/18/2021 Documentation Only [facility] [place], [address] [place] [address] Macy Giraldo PA Social History [...] on filedocumented in this encounter Care Teams Shoe Singer Relationship Specialty Start Date End Date Ashkan Jacobson MD [address] [place] [address] [address] [place], [place] PCP - General 03/09/19 documented as of this encounter
--- OUTSIDE RECORDS SUMMARY | 2024-08-24 12:44 | XMS_ITS | Encounter Summary ---
Author Organization [facility] Address [address] [place] [address] Phone Care Team Providers Care Optical Instrument Assembler Name Role Phone Ashkan Jacobson MD Primary Care Provider [phone] Encounter Details Date Type Department Care Team (Late st Contact Info) Description 08/21/2023 Documentation Only [facility] [place], [address] [place] [address] Xochilt Crawford [place] [address] [place] [address] Social History Tobacco Use Types [...] on filedocumented in this encounter Care Teams Optical Instrument Assembler Relationship Specialty Start Date End Date Ashkan Jacobson MD [address] [place] [address] [address] [place], [place] PCP - General 03/09/19 documented as of this encounter
--- OUTSIDE RECORDS SUMMARY | 2024-08-24 12:44 | XMS_ITS | Encounter Summary ---
Author Organization [employer] Address [address] [facility] [address] [place] [address] Care Team Providers Care Business Affairs Manager Name Role Phone Ginette Fortune MD Primary Care Provide r Reason for Visit * Reason Onset Date Comments Hospital Follow-up 05/14/2024 Encounter Details Date Type Department Care Team ([facility] Contact Info) Description 05/14/2024 Telephone [facility] [address] [place] [address] Ginette Fortune MD [address] [place] [address] Hospital Follow-up Social History Tobacco Use Types [...] pt requesting a HDF appt. Hospital: [facility] Date of admission: 05/09/2024 Discharge date: 05/13/2024 Diagnosed: Kidney problems *Send message to [place] [facility] Care Coordinators documented in this encounter Plan of Treatment Upcoming Encounters Date Type Department Care Team (Late st Contact Info) Description 09/13/2024 9:00 AM EDT Office Visit [facility] [address] [place] [address] Ginette Fortune MD [address] [place] [address] documented as of this encounter Visit Diagnoses Not on filedocumented in this encounter Additional Health Concerns Assessment Noted Time PHQ-9 Depression Total Score: 0 10/21/19 24 10:02 AM EDT documented as of this encounter Care Teams Business Affairs Manager Relationship Specialty Start Date End Date Ginette Fortune MD [address] [place] [address] PCP - General Internal Medicine 10/27/23 documented as of this encounter
--- OUTSIDE RECORDS SUMMARY | 2024-08-24 12:44 | XMS_ITS | Encounter Summary ---
Author Organization [facility] Address [address] [place] [address] Phone Care Team Providers Care Acute Care Nurse Name Role Phone Ashkan Jacobson MD Primary Care Provider [phone] Encounter Details Date Type Department Care Team (Late st Contact Info) Description 12/19/2023 Documentation Only [facility] [place], [address] [place] [address] Xochilt Crawford [place] [address] [place] [address] Social History Tobacco Use Types [...] on filedocumented in this encounter Care Teams Acute Care Nurse Relationship Specialty Start Date End Date Ashkan Jacobson MD [address] [place] [address] [address] [place], [place] PCP - General 03/09/19 documented as of this encounter
--- OUTSIDE RECORDS SUMMARY | 2024-08-24 12:44 | XMS_ITS | Encounter Summary ---
Author Organization [facility] Address [address] [place] [address] Phone Care Team Providers Care Home Teaching Grades 9 Thru 12 Teacher Name Role Phone Ashkan Jacobson MD Primary Care Provider [phone] Encounter Details Date Type Department Care Team (Late st Contact Info) Description 02/04/2024 Documentation Only [facility] [place], [address] [place] [address] Xochilt Crawford [place] [address] [place] [address] Social History Tobacco Use Types [...] on filedocumented in this encounter Care Teams Home Teaching Grades 9 Thru 12 Teacher Relationship Specialty Start Date End Date Ashkan Jacobson MD [address] [place] [address] [address] [place], [place] PCP - General 03/09/19 documented as of this encounter
--- OUTSIDE RECORDS SUMMARY | 2024-08-24 12:44 | XMS_ITS | Encounter Summary ---
Author Organization [facility] Address [address] [place] [address] Phone Care Team Providers Care Cafe Cook Name Role Phone Ashkan Jacobson MD Primary Care Provider Encounter Details Date Type Department Care Team (Late st Contact Info) Description 07/30/2023 Documentation Only [facility] [place], [address] [place] [address] Xochilt Crawford [place] [address] [place] [address] Social History Tobacco Use Types [...] on filedocumented in this encounter Care Teams Cafe Cook Relationship Specialty Start Date End Date Ashkan Jacobson MD [address] [place] [address] [address] [place], [place] PCP - General 03/09/19 documented as of this encounter
--- OUTSIDE RECORDS SUMMARY | 2024-08-24 12:44 | XMS_ITS | Encounter Summary ---
Author Organization [facility] Address [address] [place] [address] Phone Care Team Providers Care Field Operations Technician Name Role Phone Ashkan Jacobson MD Primary Care Provider [phone] Encounter Details Date Type Department Care Team (Late st Contact Info) Description 09/24/2022 Documentation Only [facility] [place], [address] [place] [address] Godfrey Marcum MD [address] [facility] [address] [place] [address] Social History Tobacco Use Types [...] on filedocumented in this encounter Care Teams Field Operations Technician Relationship Specialty Start Date End Date Ashkan Jacobson MD [address] [place] [address] [address] [place], [place] PCP - General 03/09/19 documented as of this encounter
--- OUTSIDE RECORDS SUMMARY | 2024-08-24 12:44 | XMS_ITS | Clinical Summary ---
Author Organization [employer] Address [address] [facility] 7t [place] [address] Care Team Providers Care Slps Name Role Phone Ginette Fortune MD Primary [...] day for anxiety. 4 Active Continuous Glucose Juvenile Justice Specialist (FreeStyle Jame 2 [place]) device 4 Active docusate sodium (Colace) 100 [...] 01/27/2024 Type 2 diabetes mellitus, [facility] long-term current use of insulin 10/21/2023 [...] weight management Griffin Cuellar NP (located on [address] [place] [address] 234 phone [phone]) Diabetes is: controlled - Lab Results Component [...] psychiatrist Keiko Philippe located on [address] [place] [address] phone [phone] it is being prescribed for her trazodone, [...] Encounters Date Type Department Care Team Description 08/18/2024 Orders Only GENERIC EXTERNAL DATA DEPARTMENT Provider, Generic External Data 08/16/2024 Orders Only [facility] External Provider, [facility] 06/15/2024 1:15 PM EST Office Visit [facility] [address] [place] [address] Ginette Fortune MD Hydronephrosis, unspecified hydronephrosis type (Primary Dx); Type 2 diabetes mellitus with stage 3 chronic kidney disease, without long-term current use of insulin, unspecified whether stage 3a or 3b CKD ([facility]) 06/15/2024 Travel 06/03/2024 Telephone [facility] [address] [place] [address] Fozia Cantu MD No Show 06/01/2024 Orders Only [facility] External Provider, [facility] 06/01/2024 Telephone [facility] [address] [place] [address] Francisca Lopez, PharmD from Last 3 Months [...] Description 09/13/2024 9:00 AM EDT Office Visit [facility] [address] [place] [address] Ginette Fortune MD [address] [place] [address] Health Maintenance Due Date Last Done Comments [...] Procedure Name Priority Date/Time Associated Diagnosis Comments GLUCOSE, WHOLE BLOOD Routine 08/18/2024 1:23 PM EDT US RENAL BI Routine 08/16/2024 4:39 PM EDT POCT GLUCOSE Routine 06/15/2024 1:29 PM EST [...] Relevant to Health Maintenance Results * (ABNORMAL) Glucose, Whole Blood (08/18/2024 1:23 PM EDT) Glucose, Whole Blood 188(H) 60 - 115 mg/dL [facility] Comment:METER #: [id number] Testing performed in the Endocrinology Department [address] , [address], [facility]. 08/18/2024 1:23 PM EDT 08/18/2024 1:27 PM EDT us Generic External Data Provider LAB BLOOD ORDERAB LES Final Result [facility] [address] [place] [address] [phone] * US RENAL BI (08/16/2024 4:39 PM EDT) Anatomical Region Laterality Modality Abdomen Ultrasound 08/16/2024 4:39 PM EDT Narrative 08/16/2024 4:41 PM EDT ? [facility] ?[address] ?[place] [address] ? Ultrasound Report ? Signed ? Patient: Iverson,Rosie ?MR#: [id number] ? : 1960 ?Acct:[id number] ? Age/Sex: 64 / F ?ADM Date: 08/16/24 ? Loc: HO.US ? Attending Dr: Renato Bloom MD ? Ordering Physician: Renato Bloom MD ?? Date of Service: 08/16/24 ?? Procedure(s): US renal BI ?? Accession Number(s): [id number] ? cc: Ginette Fortune MD; Renato Bloom MD ? CLINICAL HISTORY: N13.30 - Unspecified hydronephrosis ? US Renal ? Comparison: CT/SR - CT ABDOMEN PELVIS WO IV CON - 05/11/24 07:36 EST ? Findings: ?? Right kidney normal size and echotexture, 17.1 cm length. There are 2 ?? simple appearing cysts within the right kidney, a 4.9 x 5.2 x 5.0 cm cyst ?? within the upper pole and a 9.4 x 7.2 x 9.7 cm cyst within the lower pole ?? Left kidney normal size and echotexture, 13.8 cm length. There is an 8.3 x ?? 7.3 x 7.9 cm mildly complex cyst within the upper pole of the left kidney ?? and there is a 4.9 x 3.3 x 4.2 cm simple appearing cyst within the lower ?? pole of the left kidney. ? Moderate hydronephrosis of the right kidney. No hydronephrosis of the left ?? kidney. Normal color Doppler. ? A left ureteral jet was documented. The right ureteral jet was not ?? visualized. ? IMPRESSION: ?? Moderate hydronephrosis of the right kidney, similar to the prior study. ? This document has been electronically signed by: Clarita Cash MD on ?? 08/16/2024 16:39:21 ? Dictated By: ?Clarita Cash MD ? Signed By: ?<Electronically signed by Clarita Cash MD in OV> ? 08/16/24 1640 ? DD/ 1639 ? TD/TT: 08/16/24 1639 ? Incident Response Lead: ? Procedure Note Melinda Radford - 08/16/[address] [address] Ultrasound Report Signed Patient: Jovani Iverson#: [id number] : 2Acct:[id number] Age/Sex: 64 / FADM Date: 08/16/24 Loc: HO.US Attending Dr: Renato Bloom MD Ordering Physician: Renato Bloom MD Date of Service: 08/16/24 Procedure(s): US renal BI Accession Number(s): [id number] cc: Ginette Fortune MD; Renato Bloom MD CLINICAL HISTORY: N13.30 - Unspecified hydronephrosis US Renal Comparison: CT/SR - CT ABDOMEN PELVIS WO IV CON - 05/11/24 07:36 EST Findings: Right kidney normal size and echotexture, 17.1 cm length. There are 2 simple appearing cysts within the right kidney, a 4.9 x 5.2 x 5.0 cm cyst within the upper pole and a 9.4 x 7.2 x 9.7 cm cyst within the lower pole Left kidney normal size and echotexture, 13.8 cm length. There is an 8.3 x 7.3 x 7.9 cm mildly complex cyst within the upper pole of the left kidney and there is a 4.9 x 3.3 x 4.2 cm simple appearing cyst within the lower pole of the left kidney. Moderate hydronephrosis of the right kidney. No hydronephrosis of the left kidney. Normal color Doppler. A left ureteral jet was documented. The right ureteral jet was not visualized. IMPRESSION: Moderate hydronephrosis of the right kidney, similar to the prior study. This document has been electronically signed by: Clarita Cash MD on 08/16/2024 16:39:21 Dictated By: Clarita Cash MD Signed By: <Electronically signed by Clarita Cash MD in OV> 08/16/24 1640 DD/ 1639 TD/TT: 08/16/24 1639 Incident Response Lead: [facility] External Provider IMG US PROCEDURES Edited Result - Final * POCT Glucose (06/15/2024 1:29 PM EST) Glucose Blood, POC 101 60 - 200 mg/dL QC Media Lot # [id number] Lot# Expiration Date [id number] Blood Capillary blood specimen / Unknown 06/15/2024 1:29 PM EST us Ginette Freeman MD POINT OF CARE TEST EN TER/EDIT ORDERABLES Final Result * Urinalysis w/reflex microscopic (06/01/2024 8:03 PM EST) Color Urine Yellow [facility] Appearance Urine Clear [facility] PH 5.0 5.0 - 9.0 [facility] Glucose Urine UA Negative Negative mg/dL [facility] Urine Blood Negative Negative [facility] Specific [place] - Urine 1.015 1.005 - 1.025 [facility] Urine Protein Negative Neg-Trace mg/dL [facility] Urine Ketones Negative Negative mg/dL [facility] Nitrite Urine Negative Negative [facility] Leukocyte Esterase Urine Negative Negative [facility] 06/01/2024 8:03 PM EST 06/01/2024 8:06 PM EST Narrative [facility] - 06/01/2024 8:43 PM EST [id number], Clean Catch us Generic External Data Provider LAB URINE ORDERAB LES Final Result [facility] [address] [place] [phone] * (ABNORMAL) CBC auto differential (06/01/2024 6:37 PM EST) White Blood Count 11.1(H) 4.8 - 10.8 X10*3/uL [facility] Red Blood Count 5.21 4.20 - 5.50 X10*6/uL [facility] Hemoglobin 14.4 12.0 - 16.0 g/dl [facility] Hematocrit 44.3 37.0 - 47.0 % [facility] Mean Corpuscular Volume 85.0 80.0 - 98.0 fL [facility] Mean Corpuscular Hemoglobin 27.6 27.0 - 33.0 pg [facility] Mean Corpuscular HGB Conc 32.5 31.0 - 35.0 g/dl [facility] Red Cell Distribution Width 13.6 11.0 - 16.0 % [facility] Platelet Count 234 160 - 400 X10*3/uL [facility] Mean Platelet Volume 11.8 9.4 - 12.3 fL [facility] Neutrophils Percent Auto 57.9 45 - 73 % [facility] Imm Gran Pct Auto 0.4 0.0 - 0.4 % [facility] Lymphocytes Percent Auto 28.7 20 - 40 % [facility] Monocytes Percent Auto 10.4 2 - 11 % [facility] Eosinophils Percent Auto 2.1 0 - 4 % [facility] Basophils Percent Auto 0.5 0 - 2 % [facility] NRBC Pct Auto 0.0 0.0 - 0.2 /100WBC [facility] Neutrophils Absolute Auto 6.4 2.0 - 8.3 x10*3/uL [facility] Imm Gran Abs Auto 0.04(H) 0.00 - 0.03 X10*3/uL [facility] Lymphocytes Absolute Auto 3.2 1.2 - 4.9 X10*3/uL [facility] Monocytes Absolute Auto 1.2 0.1 - 1.2 X10*3/uL [facility] Eosinophils Absolute Auto 0.2 0.0 - 0.4 X10*3/uL [facility] Basophils Absolute Auto 0.1 0.0 - 0.2 X10*3/uL [facility] NRBC Abs Auto 0.000 0.0 - 0.012 X10*3/uL [facility] 06/01/2024 6:37 PM EST 06/01/2024 6:40 PM EST us Generic External Data Provider LAB BLOOD ORDERAB LES Final Result [facility] [address] [place] [address] [phone] * Lipase (06/01/2024 6:37 PM EST) Pathologist [facility] Lipase 34 8 - 78 U/L [facility] 06/01/2024 6:37 PM EST 06/01/2024 6:40 PM EST Generic External Data Provider LAB BLOOD ORDERAB LES Final Result Performing Organization Address [facility] Co de Phone Number [facility] [address] [place] [phone] * (ABNORMAL) Hepatic Function Panel (06/01/2024 6:37 PM EST) [facility] Bilirubin, Total 0.6 0.0 - 1.0 mg/dL [facility] Bilirubin, Direct 0.1 0.0 - 0.5 mg/dL [facility] Aspartate Amino Transferase 19 5 - 31 U/L [facility] Alanine Aminotransferase 17 0 - 31 U/L [facility] Total Protein 8.2(H) 6.5 - 8.0 g/dL [facility] Albumin Level 4.6 3.5 - 5.0 g/dL [facility] Alkaline Phosphatase 87 39 - 117 U/L [facility] 06/01/2024 6:37 PM EST 06/01/2024 6:40 PM EST [employer] External Data Provider LAB BLOOD ORDERAB LES Final Result Performing Organization Address [facility] Co de Phone Number [facility] [address] [place] [phone] * (ABNORMAL) Basic Metabolic Panel (06/01/2024 6:37 PM EST) Pathologist [facility] Sodium 145 135 - 145 mmol/L [facility] Potassium 4.0 3.3 - 5.1 mmol/L [facility] Chloride 108 96 - 108 mmol/L [facility] Carbon Dioxide 26 22 - 29 mmol/L [facility] Anion Gap 15 12 - 20 [facility] Urea Nitrogen (BUN) 24(H) 9 - 16 mg/dL [facility] Creatinine, Serum 1.28 0.5 - 1.4 mg/dL [facility] Creatinine Clr Calc Pharmacy 41.5 [facility] Comment:Provided height and weight: 154.94 cm,72.575 kg.eGFR (calculated from the MDRD study equation) and eCrCl(calculated from the Cockcroft-Gault equation) are based ondifferent parameters and may not yield comparable results.If eCrCl result is absurd, please check patient'sheight/weight. Estimated Glomerular Filt Rate 42 [facility] Comment:Chronic Kidney Disea se: Estimated GFR < 60 mL/min/[id number] Kidney Disease: Estimated GFR < 15 mL/min/1.73m2 Glucose 98 60 - 115 mg/dL [facility] Calcium 9.7 8.4 - 10.2 mg/dL [facility] 06/01/2024 6:37 PM EST 06/01/2024 6:40 PM EST us Generic External Data Provider LAB BLOOD ORDERAB LES Final Result Performing Organization Address City/State/[facility] Co de Phone Number [facility] [address] [place] [address] [phone] * CT Abdomen Pelvis w/o Contrast (06/01/2024 4:11 PM EST) Anatomical Region Laterality Modality Body, Pelvis, Abdomen Computed T omography 06/01/2024 4:11 PM EST Narrative 06/01/2024 5:05 PM EST ? [facility] ?[address] ?[place] [address] ? CT Scan Report ? Signed ? Patient: Iverson,Rosie ?MR#: [id number] ? : 1960 ?Acct:[id number] ? Age/Sex: 63 / F ?ADM Date: /28/25 ? Loc: HO.ED ? Attending Dr: ? Ordering Physician: Carlotta Lees ?? Date of Service: 06/01/24 ?? Procedure(s): CT abdomen pelvis wo IV con ?? Accession Number(s): [id number] ? cc: Ginette Fortune MD; Carlotta Lees ? Report Number: ?? [id number]: Total DLP = ??474.00 mGy-cm ?? EXAMINATION: [...] Isidro MD in OV> ?06/01/24 1702 ? DD/DT: 06/01/ 1611 ? TD/TT: 06/01/24 1623 ? Incident Response Lead: ? Procedure Note Donotuseinterpreter, Image - 06/01/[address] [address] [address] Scan Report Signed Patient: Jovani Iverson#: [id number] : 2Acct:[id number] Age/Sex: 63 / FADM Date: 06/01/24 Loc: HO.ED Attending Dr: Ordering Physician: Carlotta Lees Date of Service: 06/01/24 Procedure(s): CT abdomen pelvis wo IV con Accession Number(s): [id number] cc: Ginette Fortune MD; Carlotta Lees Report Number: [id number]: Total DLP = 474.00 mGy-cm EXAMINATION: CT [...] 06/01/24 1702 DD/ 1611 TD/TT: 06/01/24 1623 Incident Response Lead: [facility] External Provider IMG CT PROCEDURES Final Result * (ABNORMAL) POCT HGB A1C (04/14/2024 10:13 AM EST) Hemoglobin A1C 6.5(A) 4.0 - 6.0 % QC Media Lot # [id number] Lot# Expiration Date [id number] Blood 04/14/2024 10:1 3 AM EST us Ginette Freeman MD POINT OF CARE TEST EN TER/EDIT ORDERABLES Final Result * BI Mammogram Screening Tomosynthesis Bilateral (03/09/2024 1:20 PM EST) Anatomical Region Laterality Modality Breast Bilateral Mammography 03/09/2024 1:20 PM EST Narrative 03/17/2024 1:55 PM EST ? [facility] ? [address] ?[place], [place] [address] ? Mammography Report ? Signed ? Patient: Iverson,Rosie ?MR#: [id number] ? : 1960 ?Acct:[id number] ? Age/Sex: 63 / F ?ADM Date: 03/09/24 ? Loc: HO.MAMMO ? Attending Dr: Ginette Freeman MD ? Ordering Physician: Ginette Fortune MD ?Results: ?? 1Negative ? Date of Service: 03/09/24 ?Follow Up: 1 Year From Orig ?? inal Mammogram ? Procedure(s): MM tomosynthesis screening BI ?? Accession Number(s): [id number] ? cc: Ginette Fortune MD ? EXAMINATION: [...] ? Signed By: ?<Electronically signed by Amy Tyminski, DO in OV> ? 03/17/24 1352 ? DD/ 1320 ? TD/TT: 03/09/24 1335 ? Incident Response Lead: ? Procedure Note Prabhakar, Melinda - 03/17/2024 [facility] [address] [place] [address] [place] [address] Mammography Report Signed Patient: Jovani Iverson#: [id number] : 2Acct:[id number] Age/Sex: 63 / FADM Date: 03/09/24 Loc: HO.MAMMO Attending Dr: Ginette Freeman MD Ordering Physician: Ginette Fortune MDResults: 1Negative Date of Service: 03/09/24Follow Up: 1 Year From Orig inal Mammogram Procedure(s): MM tomosynthesis screening BI Accession Number(s): [id number] cc: Ginette Fortune MD EXAMINATION: MM SCREENING [...] 03/17/24 1352 DD/ 1320 TD/TT: 03/09/24 1335 Incident Response Lead: us Ginette Freeman MD IMG BI PROCEDURES Fin al Result * Hepatitis C Antibody with Reflex to HCV, RNA, Quantitative, Real-Time PCR (01/27/2024 10:22 AM EDT) Hepatitis C Antibody Nonreactive Nonreactive [facility] Comment:Antibodies to HCV no t detected; does not exclude early acuteHCV infection. Blood Venous blood specimen / Unknown 01/27/2024 10:22 AM EDT 01/27/2024 11:20 AM EDT us Ginette Freeman MD LAB BLOOD ORDERABLES Final Result [facility] [address] [place] [address] [place] [phone] * (ABNORMAL) Lipid Panel, Standard (01/27/2024 10:22 AM EDT) Triglycerides 195(H) <150 mg/dL [facility] Comment:Desirable Triglyceri de: less than 150 mg/dLBorderline High Triglyceride 150-199 mg/dLHigh Triglyceride: 200-499 mg/dLVery High Triglyceride: greater than or equal to 5OO mg/dL Cholesterol 222(H) <200 mg/dL [facility] Comment:Desirable Cholestero l: less than 200 mg/dLBorderline High Cholesterol: 200-239 mg/dLHigh Cholesterol: greater than 239 mg/dL LDL Cholesterol Calculated 129(H) <100 mg/dL [facility] Comment:Desirable LDL: less than 100 mg/dLNear Optimal/Above Optimal LDL: 110- 129 mg/dLBorderline High LDL: 130-159 mg/dLHigh LDL: 160-189 mg/dLVery High LDL: greater than or equal to 190 mg/dL HDL Cholesterol 54 >40 mg/dL [facility] Comment:Desirable HDL: great er than 40 mg/dL Note: This HDL assay may give artificially low results in patients with liver disease. Blood Venous blood specimen / Unknown 01/27/2024 10:22 AM EDT 01/27/2024 11:20 AM EDT us Ginette Freeman MD LAB BLOOD ORDERABLES Final Result [facility] [address] [place] [address] [phone] from Last 3 Months or Most Recently Relevant to Health Maintenance Insurance [facility] Care Teams Slps Relationship Specialty Start Date End Date Ginette Fortune MD [address] [place] [address] PCP - General Internal Medicine 10/27/23
--- OUTSIDE RECORDS SUMMARY | 2024-08-24 12:44 | XMS_ITS | Encounter Summary ---
Author Organization [facility] Address [address] [place] [address] Phone Care Team Providers Care Sample Grinder Name Role Phone Ashkan Jacobson MD Primary Care Provider [phone] Encounter Details Date Type Department Care Team (Late st Contact Info) Description 08/28/2023 Documentation Only [facility] [place], [address] [place] [address] Xochilt [place] [address] [place] [address] Social History Tobacco Use Types [...] on filedocumented in this encounter Care Teams Sample Grinder Relationship Specialty Start Date End Date Ashkan Jacobson MD [address] [place] [address] [address] [place], [place] PCP - General 03/09/19 documented as of this encounter
--- OUTSIDE RECORDS SUMMARY | 2024-08-24 12:44 | XMS_ITS | Clinical Summary ---
Author Organization [facility] [place], Address [address] [place] [address] [place] [address] Phone Care Team Providers Care Mold Filler And Drainer Name Role Phone Ashkan Jacobson MD Primary Care Provider [phone] Allergies Active Allergy Reactions Criticality Noted Date [...] AM EDT) Hemoglobin A1C 6.7(H) (4.0-5.6) % [facility] Comment: MONITORING: In known diabetic patients, hemoglobin A1c targets should be discussed with health care provider. DIAGNOSTIC USE: ??The [place] Diabetes Association (ADA) and the World Health [...] Supplement 1 Testing performed or reported by [facility], a Service of [facility], [address] [place] [phone] Familia Britton MD, Panel Gluer [facility]# [id number] Blood (Blood, Venous) 02/05/2023 10:48 AM EDT 02/05/2023 10:49 AM EDT Godfrey Marcum MD LAB BLOOD ORDERABLES Final Re sult [facility] from Last 3 Months or Most Recently Relevant to Health Maintenance Insurance [facility] Dual SNP ([id number]) [place] [id number] Care Teams Mold Filler And Drainer Relationship Specialty Start Date End Date Ashkan Jacobson MD [address] [place] [address] PCP - General 03/09/19
--- OUTSIDE RECORDS SUMMARY | 2024-08-24 12:44 | XMS_ITS | Clinical Summary ---
Author Organization [facility] Address [address] [place] [address] Care Team Providers Care Urogynecology Physician Name Role Phone Kaley Jacobson MD Primary Care Provider [phone] Surgical History Surgery Date Site/Laterality Comments TOTAL KNEE ARTHROPLASTY 2009 PROCEDURE: [place] ARTHRP KNE CONDYLE&PLATU MEDIAL&LAT COMPARTMENTS CHOLECYSTECTOMY PROCEDURE: [place] LAPAROSCOPY SURG CHOLECYSTECTOMY SECTION PROCEDURE: HISTORICAL OTHER [...] Continued pain 03/2017, seeking [facility]nd opinion at [facility] History of CVA (cerebrovascu lar [...] age to complete this topic Care Teams Urogynecology Physician Relationship Specialty Start Date End Date Kaley Jacobson MD [address] [place] [phone] PCP - General Internal Medicine 03/11/17
--- OUTSIDE RECORDS SUMMARY | 2024-08-24 12:44 | XMS_ITS | Encounter Summary ---
Author Organization [facility] Address [address] [place] [address] Phone Care Team Providers Care Lumber Carrier Name Role Phone Ashkan Jacobson MD Primary Care Provider [phone] Encounter Details Date Type Department Care Team (Late st Contact Info) Description 07/23/2023 Documentation Only [facility] [place], [address] [place] [address] Xochilt [place] [address] [place] [address] Social History Tobacco Use Types [...] filedocumented in this encounter Care Teams Lumber Carrier Relationship Specialty Start Date End Date Ashkan Jacobson MD [address] [place] [address] [address] [place], [place] PCP - General 03/09/19 documented as of this encounter
--- OUTSIDE RECORDS SUMMARY | 2024-08-24 12:44 | XMS_ITS | Encounter Summary ---
Author Organization [facility] Address [address] [address] Care Team Providers Care Smoke Chaser Name Role Phone Ginette Fortune MD Primary Care Provide r Reason for Referral * Consultation (Routine) - Authorized Specialty Diagnoses / Procedures Referred By Eula winston Referred To Contact Orthopaedic Surgery Diagnoses Acute pain of left knee Drea Monroy MD [address] [place] [address] Phone: tel: fax: [facility] [address] [place] [address] [place] [address] Phone: tel: fax: Referral ID Status Reason Start Date Expiration Date Visits Requested Visits Authorized [id number] Authorized Specialty Services Required 11/14/2023 11/13/2024 1 1 Encounter Details Date Type Department Care Team (Late st Contact Info) Description 11/14/2023 Orders Only [facility] [address] [place], [place] [phone] Drea Monroy MD [address] [place], [place] [phone] Acute pain of left knee (Primary Dx) [...] Description 09/13/2024 9:00 AM EDT Office Visit [facility] [address] [place] [address] Ginette Fortune MD [address] [place] [address] Scheduled Referrals Name Type Priority Associated Diagnoses [...] documented as of this encounter Care Teams Smoke Chaser Relationship Specialty Start Date End Date Ginette Fortune MD [address] [place] [address] PCP - General Internal Medicine 10/27/23 documented as of this encounter
--- OUTSIDE RECORDS SUMMARY | 2024-08-24 12:44 | XMS_ITS | Encounter Summary ---
Author Organization [facility] Address [address] [place] [address] Phone Care Team Providers Care Radio Electrician Name Role Phone Ashkan Jacobson MD Primary Care Provider [phone] Encounter Details Date Type Department Care Team (Late st Contact Info) Description 07/21/2023 Documentation Only [facility] [place], [address] [place] [address] Xochilt [place] [address] [place] [address] Social History Tobacco Use Types [...] on filedocumented in this encounter Care Teams Radio Electrician Relationship Specialty Start Date End Date Ashkan Jacobson MD [address] [place] [address] [address] [place], [place] PCP - General 03/09/19 documented as of this encounter
--- OUTSIDE RECORDS SUMMARY | 2024-08-24 12:44 | XMS_ITS | Encounter Summary ---
Author Organization [facility] Address [address] [place] [address] Phone Care Team Providers Care Wellness Educator Name Role Phone Ashkan Jacobson MD Primary Care Provider [phone] Encounter Details Date Type Department Care Team (Late st Contact Info) Description 08/04/2023 Documentation Only [facility] [place], [address] [place] [address] Xochilt Crawford [place] [address] [place] [address] Social History Tobacco Use Types [...] on filedocumented in this encounter Care Teams Wellness Educator Relationship Specialty Start Date End Date Ashkan Jacobson MD [address] [place] [address] [address] [place], [place] PCP - General 03/09/19 documented as of this encounter
== END 2024-08-24 11:38 | disposition home or self-care (01) ==
LOC: HO.HBS 10:41
PROVIDERS: PCP Internal Medicine; Visit Provider Physician Assistant Surgical
DX: L65.9 Nonscarring hair loss, unspecified (principal); Z98.84 Bariatric surgery status; E66.9 Obesity, unspecified
CPT/HCPCS: 99214; G2211

== ENCOUNTER → 2024-08-24 10:41 | Outpatient (BNVA) | payer OTHER, SELFPAY | PROVIDERS: PCP Internal Medicine; Visit Provider Physician Assistant Surgical | DX: E66.9 Obesity, unspecified (principal); L65.9 Nonscarring hair loss, unspecified; Z98.84 Bariatric surgery status; Z68.30 Body mass index [BMI] 30.0-30.9, adult | CPT/HCPCS: 99212 ==

== ENCOUNTER 2024-08-26 11:29 | Outpatient (AMB) | payer OTHER, SELFPAY ==
--- NOTE | 2024-08-26 11:54 | A.OFFVIS_ITS ---
Intake Visit Reasons: 3M US follow up Intake Note: Patient presents today for follow up on: hydronephrosis and ultrasound results Imaging Completed: 08/16/24 Urology Medication: none Antibiotic Allergy:METFORMIN Blood Thinner:NONE Housekeeping Assistant Required: No Housekeeping Assistant Services: Housekeeping Assistant Present Housekeeping Assistant Name: [phone] Accompanied by: Self / Same As Patient Allergies latex [LATEX] Allergy (Mild, Verified 08/26/24 12:26) RASH metformin Adverse Reaction (Verified 08/26/24 12:26) Unknown Medication List - Last Reconciled 08/26/24 by NARENDRA David amlodipine 10 mg PO DAILY atorvastatin 20 mg PO QPM blood sugar diagnostic (OneTouch Ultra Test strips) As directed 3 times a day blood sugar diagnostic As directed blood-glucose meter (OneTouch Ultra2 Meter) As directed docusate sodium 100 mg PO BID flash glucose sensor (FreeStyle Jame 2 Sensor kit) USE DIRECTED TO TEST BLOOD SUGAR. CHANGE EVERY 10 DAYS fluoxetine 40 mg PO DAILY fluticasone propionate 50 mcg/actuation 1 spray intranasal DAILY PRN FreeStyle Jame 2 [place] (flash glucose scanning reader) As directed NS hydrochlorothiazide 12.5 mg PO DAILY lancets As directed lisinopril 40 mg PO DAILY metoprolol succinate ER 50 mg PO DAILY Mounjaro (tirzepatide) 2.5 mg (0.5 mL) subcut QWEEK NS oxycodone 5 mg PO Q6H PRN pen needle, diabetic (Comfort EZ Pen [facility]) As directed injects once a day sennosides (senna) 8.6 mg PO DAILY trazodone 50 - 150 mg PO BEDTIME PRN HPI Comments Details: Rosie is a pleasant urology 64-year-old Italian-speaking female patient of Dr. Freeman who was accompanied by her significant other at today's office visit. She has a past medical history of anxiety, depression, GERD, non toxic multinodular goiter, chronic renal insufficiency, nephrolithiasis, renal cyst, diabetic neuropathy, B12 deficiency, obesity, dyslipidemia, and type 2 diabetes. She presents to the office today for follow-up. Of note, during last office visit approximately 3 months ago patient underwent in office cystoscopy with stent removal by Dr. Bloom. Patient with recent hospital admission noting severe right hydroureteronephrosis with abrupt tapering of distal ureter to normal caliber just above the UPJ therefore she underwent cystoscopy, right retrograde, right dilatation of ureteric orifice under fluoroscopy, right ureteroscopy, and right stent placement with Dr. Bloom on 05/12/2024. Recent renal imaging results were reviewed with the patient and her significant other today. Bilateral kidneys are normal in size and echotexture. There are 2 simple appearing cyst within the right kidney measuring 9.7 cm and 5.2 cm. Left kidney with 8.3 mildly complex cyst in the upper pole in simple cyst in the lower pole measuring 4.9 cm. Moderate hydronephrosis of right kidney. No hydronephrosis of the left kidney. In discussion with the patient today she reports a longstanding history of hydronephrosis even as a child. However lived in [place] most of her life and did not undergo further workup. When asked she does continue to report intermittent episodes of right-sided flank pain. She otherwise denies any bothersome urinary issues. She denies urinary urgency, urinary frequency, incontinence, nocturia, hematuria, dysuria, foul smelling urine, changes to urinary stream, fever, and or chills. She is happy with her current voiding parameters. We discussed obtaining nuclear renal scan for further assessment evaluation as well as BUN and creatinine. All questions were answered. We discussed potential causes of hydronephrosis as well as potential treatment options however will await renal scan for further assessment evaluation. She otherwise offers no other issues or concerns. BUN:01/26 16, 02/25 20, 05/29 22, 05/29 24, 05/29 18, 05/29 24 Creatinine: 01/26 1.10, 02/05 1.25, 05/29 1.51, 05/29 1.23, 05/29 1.04, 05/29 1.28 Discussion Notes During the consultation, I discussed the recent ultrasound findings indicating no kidney stones or blockages in the left kidney but a blockage in the right kidney with an unclear etiology. I recommended nuclear renal scan due to the insufficient clarity of current blockages, given the patient's significant history of nephrolithiasis and prior surgical procedures. Consent discussions were held regarding potential further diagnostics and interventions, including the necessity for follow-up tests to ascertain the exact cause of the obstructi on. Plan The patient will need a nuclear renal scan to assess the underlying cause of the right kidney blockage given prior findings and history of nephrolithiasis. Dependent on results, surgical intervention may be considered if the obstruction is correctable, otherwise continued stent management might be necessary. Emphasizing the importance of diagnostic clarity to tailor future management, I will initiate further evaluation following scan outcomes. 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 Distal radius fracture, right HTN (hypertension) Chronic kidney disease Diabetes type 2, uncontrolled Surgical History History of abdominoplasty History of surgery S/P fine needle aspiration S/P laparoscopic sleeve gastrectomy History of esophagogastroduodenoscopy (EGD) H/O colonoscopy Hx of biopsy History of partial hysterectomy History of total right knee replacement History of total left knee replacement (~2010) Hx of cholecystectomy History of section History of carpal tunnel release (~2017) Family History Father Hypertension Diabetes History of kidney cancer Mother Diabetes Hypertension Heart disease Brother Hypertension Diabetes Brother No problems noted. Son Hypertension Prediabetes Heart disease Daughter Prediabetes Social History Household Members: Spouse Housing: Apartment Are you a primary childcare center director to a significant other at home: No Do you presently have visiting nurse or other home services: No Alcohol intake: never Patient Tobacco Use Status: Never used Tobacco service: No Review of Systems Const All systems reviewed & are unremarkable except as noted in HPI and below Physical Exam Const General: cooperative, healthy appearing, comfortable, no acute distress, well developed, alert and awake Nutritional Appearance: overweight Orientation/consciousness: patient oriented x3 Limitations: no limitations HEENT Head: Yes normal to inspection, Yes normocephalic and Yes atraumatic Ears: hearing grossly normal bilaterally Eyes General: appearance normal, both eyes and all related structures Neck Neck: Yes normal visual inspection and Yes trachea midline Chest Chest palpation & inspection: normal inspection of the chest Resp Effort & Inspection: normal respiratory effort and able to speak in complete sentences Cardio Rate: regular rate GI Inspection: Yes normal to inspection General: Yes no CVA tenderness Back/Spine/Pelvis Back: no CVA tenderness Skin General skin exam: no rashes or lesions noted Neuro General: patient oriented x3 Extrem General: Yes normal to inspection Psych Appearance: grossly normal and well kempt Mental Status: mental status grossly normal Speech and movement: Normal speech and movement present and Clear speech present Affect: normal affect Attitude: cooperative Thought process: Normal thought process present Thought content: Normal thought content present Insight: Fair insight present (Psych) Judgement: Fair judgement present (Psych) Results AMB Urinalysis, Automated UA Leukoctes 0 Lori/uL Last Edit by [employer] on 08/26/24 12:03 UA Nitrite Last Edit by [employer] on 08/26/24 12:03 UA Urobilinogen 0.2 mg/dL Last Edit by [employer] on 08/26/24 12:03 UA Protein 0 mg/dL Last Edit by [employer] on 08/26/24 12:03 UA pH 5.5 Last Edit by [employer] on 08/26/24 12:03 UA Blood 0 Miguel/uL Last Edit by [employer] on 08/26/24 12:03 UA Specific [place] 1.020 Last Edit by [employer] on 08/26/24 12:03 UA Ketone Last Edit by [employer] on 08/26/24 12:03 UA Bilirubin 0 mg/dL Last Edit by [employer] on 08/26/24 12:03 UA Glucose 0 mg/dL Last Edit by [employer] on 08/26/24 12:03 Results Reviewed Results Reviewed: Laboratory Last Values Urine pH (Auto) 5.5 08/26/24 12:02 Specific [place] (Auto) 1.020 08/26/24 12:02 Urine Protein (Auto) 0 mg/dL 08/26/24 12:02 Glucose (UA)(Auto) 0 mg/dL 08/26/24 12:02 Urine Blood (Auto) 0 Miguel/uL 08/26/24 12:02 Urine Bilirubin (Auto) 0 mg/dL 08/26/24 12:02 Urine Urobilinogen (Auto) 0.2 mg/dL 08/26/24 12:02 Leukocyte Esterase (Auto) 0 Lori/uL 08/26/24 12:02 Date of Service: 08/16/24 Procedure(s): US renal BI Findings: Right kidney normal size and echotexture, 17.1 cm length. There are 2 simple appearing cysts within the right kidney, a 4.9 x 5.2 x 5.0 cm cyst within the upper pole and a 9.4 x 7.2 x 9.7 cm cyst within the lower pole Left kidney normal size and echotexture, 13.8 cm length. There is an 8.3 x 7.3 x 7.9 cm mildly complex cyst within the upper pole of the left kidney and there is a 4.9 x 3.3 x 4.2 cm simple appearing cyst within the lower pole of the left kidney. Moderate hydronephrosis of the right kidney. No hydronephrosis of the left kidney. Normal color Doppler. A left ureteral jet was documented. The right ureteral jet was not visualized. IMPRESSION: Moderate hydronephrosis of the right kidney, similar to the prior study. Assessment & Plan Assessment & Plan (1) Hydronephrosis: Code(s): N13.30 - Unspecified hydronephrosis Category: Medical (2) Flank pain: Code(s): R10.9 - Unspecified abdominal pain Category: Medical Plan In office urinalysis results reviewed with the patient today; as noted above. Recent renal imaging results reviewed with the patient today; as noted above. We discussed at length potential causes of hydronephrosis and further treatment options and risks and benefits of these treatment options. Patient currently denies any bothersome urinary issues. She reports be happy with current voiding parameters. We discussed obtaining nuclear renal scan for further assessment evaluation. Will obtain BUN and creatinine. Follow-up in 1-3 months with imaging and labs to be completed prior and PVR at next office visit; or sooner with any issues, concerns, and or questions. Orders: Orders NM renal flow w pharm int Today N13.30 - Unspecified hydronephrosis, R10.9 - Unspecified abdominal pain AMB Urinalysis Automated Today Z13.9 - Encounter for screening, unspecified Blood Urea Nitrogen Today R39.15 - Urgency of urination Creatinine Today R39.15 - Urgency of urination Patient Instructions: The patient had an opportunity to ask questions regarding the treatment plan. All questions were answered. Physical exam, labs, and imaging were discussed and reviewed in detail. As well as risks, benefits, and discussion of treatment choices. No major barriers to understanding were identified. The patient expressed understanding and agreement with the above treatment plan. The patient was made aware they should contact our office by phone for worsening of their current condition, the appearance of new symptoms, or with any questions or concerns. Compliance is encouraged with any medications and follow up testing that is ordered. It is a privilege to be allowed the opportunity to participate in? your urological care.? Again, if you have any questions or concerns If you have any questions or concerns please do not hesitate to contact me. The office is [phone]. This note is constructed using voice recognition software. While every effort has been made to ensure accuracy integrated logistics support manager errors may have been included. Yours sincerely, NARENDRA David Coding Level of Care Code Est Pt Level 3 (11771) Complex EM visit Add On G2211 Diagnoses Hydronephrosis N13.30 Flank pain R10.9
--- OUTSIDE RECORDS SUMMARY | 2024-08-26 13:47 | XMS_ITS | Encounter Summary ---
Author Organization [facility] Address [address] [place] [address] Phone Care Team Providers Care Business Performance Manager Name Role Phone Ashkan Jacobson MD Primary Care Provider [phone] Encounter Details Date Type Department Care Team (Late st Contact Info) Description 12/18/2021 Documentation Only [facility] [place], [address] [place] [address] Macy Giradlo PA Social History Tobacco Use Types Packs/Day [...] on filedocumented in this encounter Care Teams Business Performance Manager Relationship Specialty Start Date End Date Ashkan Jacobson MD [address] [place] [address] [address] [place], [place] PCP - General 03/09/19 documented as of this encounter
--- OUTSIDE RECORDS SUMMARY | 2024-08-26 13:47 | XMS_ITS | Encounter Summary ---
Author Organization [facility] Address [address] [place] [address] Phone Care Team Providers Care Garment Patternmaker Name Role Phone Ashkan Jacobson MD Primary Care Provider [phone] Encounter Details Date Type Department Care Team (Late st Contact Info) Description 08/04/2023 Documentation Only [facility] [place], [address] [place] [address] Xochilt Crawford [place] [address] [place] [address] Social History Tobacco Use Types [...] on filedocumented in this encounter Care Teams Garment Patternmaker Relationship Specialty Start Date End Date Ashkan Jacobson MD [address] [place] [address] [address] [place], [place] PCP - General 03/09/19 documented as of this encounter
--- OUTSIDE RECORDS SUMMARY | 2024-08-26 13:47 | XMS_ITS | Encounter Summary ---
Author Organization [facility] Address [address] [place] [address] Care Team Providers Care Funeral Home General Manager Name Role Phone Kaley Jacobson MD Primary Care Provider Unavailab le Encounter Details Date Type Department Care Team Description 11/18/2017 Release of Information Medical Records [address] [place] [id number] Abstract, Provider Social History Tobacco Use Types [...] on filedocumented in this encounter Care Teams Funeral Home General Manager Relationship Specialty Start Date End Date Kaley Jacobson MD PCP - General Internal Medicine 03/11/17 documented as of this encounter
--- OUTSIDE RECORDS SUMMARY | 2024-08-26 13:47 | XMS_ITS | Encounter Summary ---
Author Organization [facility] Address [address] [place] [address] Phone Care Team Providers Care Private Detective Name Role Phone Ashkan Jacobson MD Primary Care Provider [phone] Encounter Details Date Type Department Care Team (Late st Contact Info) Description 06/19/2021 Documentation Only [facility] [place], [address] [place] [address] Macy Giraldo PA Social History [...] on filedocumented in this encounter Care Teams Private Detective Relationship Specialty Start Date End Date Ashkan Jacobson MD [address] [place] [address] [address] [place], [place] PCP - General 03/09/19 documented as of this encounter
--- OUTSIDE RECORDS SUMMARY | 2024-08-26 13:47 | XMS_ITS | Encounter Summary ---
Author Organization [facility] Address [address] [place] [address] Phone Care Team Providers Care Maternal Child Nurse Name Role Phone Ashkan Jacobson MD Primary Care Provider [phone] Encounter Details Date Type Department Care Team (Late st Contact Info) Description 09/24/2022 Documentation Only [facility] [place], [address] [place] [address] Godfrey Marcum MD [address] [place] [address] Social History Tobacco Use Types [...] on filedocumented in this encounter Care Teams Maternal Child Nurse Relationship Specialty Start Date End Date Ashkan Jacobson MD [address] [place] [address] 201 [place], [place] PCP - General 03/09/19 documented as of this encounter
--- OUTSIDE RECORDS SUMMARY | 2024-08-26 13:47 | XMS_ITS | Encounter Summary ---
Author Organization [facility] Address [address] [place] [address] Phone Care Team Providers Care Shop Laborer Name Role Phone Ashkan Jacobson MD Primary Care Provider [phone] Encounter Details Date Type Department Care Team (Late st Contact Info) Description 07/23/2023 Documentation Only [facility] [place], [address] [place] [address] Xochilt [place] [address] [place] [address] Social History Tobacco Use Types [...] on filedocumented in this encounter Care Teams Shop Laborer Relationship Specialty Start Date End Date Ashkan Jacobson MD [address] [place] [address] [address] [place], [place] PCP - General 03/09/19 documented as of this encounter
--- OUTSIDE RECORDS SUMMARY | 2024-08-26 13:47 | XMS_ITS | Encounter Summary ---
Author Organization [facility] Address [address] [place] [address] Phone Care Team Providers Care Basketball Scout Name Role Phone Ashkan Jacobson MD Primary Care Provider [phone] Encounter Details Date Type Department Care Team (Late st Contact Info) Description 09/18/2021 Documentation Only [facility] [place], [address] [place] [address] Macy Giraldo PA Social History [...] on filedocumented in this encounter Care Teams Basketball Scout Relationship Specialty Start Date End Date Ashkan Jacobson MD [address] [place] [address] [address] [place], [place] PCP - General 03/09/19 documented as of this encounter
--- OUTSIDE RECORDS SUMMARY | 2024-08-26 13:47 | XMS_ITS | Encounter Summary ---
Author Organization [facility] Address [facility] [place] [address] Care Team Providers Care Green Belt Name Role Phone Kaley Jacobson MD Primary Care Provider Unavailab le Encounter Details Date Type Department Care Team Description 03/14/2017 Release of Information Medical Records [address] [place] [id number] Abstract, Provider Social History Tobacco Use Types [...] on filedocumented in this encounter Care Teams Green Belt Relationship Specialty Start Date End Date Kaley Jacobson MD PCP - General Internal Medicine 03/11/17 documented as of this encounter
--- OUTSIDE RECORDS SUMMARY | 2024-08-26 13:47 | XMS_ITS | Encounter Summary ---
Author Organization [facility] Address [address] [place] [address] Phone Care Team Providers Care Stock Broker Supervisor Name Role Phone Ashkan Jacobson MD Primary Care Provider [phone] Encounter Details Date Type Department Care Team (Late st Contact Info) Description 03/22/2021 Documentation Only [facility] [place], [address] [place] [address] Macy Giraldo PA Social History [...] on filedocumented in this encounter Care Teams Stock Broker Supervisor Relationship Specialty Start Date End Date Ashkan Jacobson MD [address] [place] [address] [address] [place], [place] PCP - General 03/09/19 documented as of this encounter
--- OUTSIDE RECORDS SUMMARY | 2024-08-26 13:47 | XMS_ITS | Encounter Summary ---
Author Organization [facility] Address [address] [place] [address] Phone Care Team Providers Care Data Officer Name Role Phone Ashkan Jacobson MD Primary Care Provider [phone] Encounter Details Date Type Department Care Team (Late st Contact Info) Description 09/28/2021 Documentation Only [facility] [place], [address] [place] [address] Macy Giraldo PA Social History [...] on filedocumented in this encounter Care Teams Data Officer Relationship Specialty Start Date End Date Ashkan Jacobson MD [address] [place] [address] [address] [place], [place] PCP - General 03/09/19 documented as of this encounter
--- OUTSIDE RECORDS SUMMARY | 2024-08-26 13:47 | XMS_ITS | Clinical Summary ---
Author Organization [facility] [place], Address [address] [place] [address] [place] [address] Phone Care Team Providers Care Seismograph Helper Name Role Phone Ashkan Jacobson MD Primary Care Provider [phone] Allergies Active Allergy Reactions Criticality Noted Date [...] AM EDT) Hemoglobin A1C 6.7(H) (4.0-5.6) % [facility] Comment: MONITORING: In known diabetic patients, hemoglobin A1c targets should be discussed with health care provider. DIAGNOSTIC USE: ??The [place] Diabetes Association (ADA) and the World Health [...] Supplement 1 Testing performed or reported by [facility], a Service of [facility], [address] [place] [address] Familia Britton MD, Central Service Tech [facility]# [id number] Blood (Blood, Venous) 02/05/2023 10:48 AM EDT 02/05/2023 10:49 AM EDT Godfrey Marcum MD LAB BLOOD ORDERABLES Final Re sult [facility] from Last 3 Months or Most Recently Relevant to Health Maintenance Insurance [facility] Care Dual SNP ([id number]) [place] [id number] Care Teams Seismograph Helper Relationship Specialty Start Date End Date Ashkan Jacobson MD [address] [place] [address] PCP - General 03/09/19
--- OUTSIDE RECORDS SUMMARY | 2024-08-26 13:47 | XMS_ITS | Encounter Summary ---
Author Organization [facility] Address [address] [place] [address] Phone Care Team Providers Care Water/Wastewater Project Manager Name Role Phone Ashkan Jacobson MD Primary Care Provider [phone] Encounter Details Date Type Department Care Team (Late st Contact Info) Description 04/04/2022 Documentation Only [facility] [place], [address] [place] [address] Macy Giraldo PA Social History [...] on filedocumented in this encounter Care Teams Water/Wastewater Project Manager Relationship Specialty Start Date End Date Ashkan Jacobson MD [address] [place] [address] [address] [place], [place] PCP - General 03/09/19 documented as of this encounter
--- OUTSIDE RECORDS SUMMARY | 2024-08-26 13:47 | XMS_ITS | Encounter Summary ---
Author Organization [facility] Address [address] [place] [address] Phone Care Team Providers Care Car Rental Manager Name Role Phone Ashkan Jacobson MD Primary Care Provider [phone] Encounter Details Date Type Department Care Team (Late st Contact Info) Description 02/17/2024 Documentation Only [facility] [place], [address] [place] [address] Xochilt Crawford [place] [address] [place] [address] Social History Tobacco Use Types [...] filedocumented in this encounter Care Teams Car Rental Manager Relationship Specialty Start Date End Date Ashkan Jacobson MD [address] [place] [address] 201 [place], [place] PCP - General 03/09/19 documented as of this encounter
--- OUTSIDE RECORDS SUMMARY | 2024-08-26 13:47 | XMS_ITS | Encounter Summary ---
Author Organization [facility] Address [address] [place] [address] Phone Care Team Providers Care Route Clerk Name Role Phone Ashkan Jacobson MD Primary Care Provider [phone] Encounter Details Date Type Department Care Team (Late st Contact Info) Description 07/21/2023 Documentation Only [facility] [place], [address] [place] [address] Xochilt Crawford [place] [address] [place] [address] Social History Tobacco Use Types [...] on filedocumented in this encounter Care Teams Route Clerk Relationship Specialty Start Date End Date Ashkan Jacobson MD [address] [place] [address] 201 [place], [place] PCP - General 03/09/19 documented as of this encounter
--- OUTSIDE RECORDS SUMMARY | 2024-08-26 13:48 | XMS_ITS | Encounter Summary ---
Author Organization [facility] Address [address] [place] [address] Phone Care Team Providers Care Syrup Maker Name Role Phone Ashkan Jacobson MD Primary Care Provider [phone] Encounter Details Date Type Department Care Team (Late st Contact Info) Description 02/04/2024 Documentation Only [facility] [place], [address] [place] [address] Xochilt Crawford [place] [address] [place] [address] Social History Tobacco Use Types [...] on filedocumented in this encounter Care Teams Syrup Maker Relationship Specialty Start Date End Date Ashkan Jacobson MD [address] [place] [address] 201 [place], [place] PCP - General 03/09/19 documented as of this encounter
--- OUTSIDE RECORDS SUMMARY | 2024-08-26 13:48 | XMS_ITS | Encounter Summary ---
Author Organization [facility] Address [address] [place] [address] Phone Care Team Providers Care Business Asst Name Role Phone Ashkan Jacobson MD Primary Care Provider [phone] Encounter Details Date Type Department Care Team (Late st Contact Info) Description 01/06/2024 Documentation Only [facility] [place], [address] [place] [address] [place] Mehta [address] [place] [address] Social History Tobacco Use Types [...] filedocumented in this encounter Care Teams Business Asst Relationship Specialty Start Date End Date Ashkan Jacobson MD [address] [place] [address] 201 [place], [place] PCP - General 03/09/19 documented as of this encounter
--- OUTSIDE RECORDS SUMMARY | 2024-08-26 13:48 | XMS_ITS | Encounter Summary ---
Author Organization [facility] Address [address] [place] [address] Phone Care Team Providers Care Wood Casket Assembler Name Role Phone Ashkan Jacobson MD Primary Care Provider [phone] Encounter Details Date Type Department Care Team (Late st Contact Info) Description 08/28/2023 Documentation Only [facility] [place], [address] [place] [address] Xochilt Crawford [place] [address] [place] [address] Social History Tobacco Use Types [...] on filedocumented in this encounter Care Teams Wood Casket Assembler Relationship Specialty Start Date End Date Ashkan Jacobson MD [address] [place] [address] 201 [place], [place] PCP - General 03/09/19 documented as of this encounter
--- OUTSIDE RECORDS SUMMARY | 2024-08-26 13:48 | XMS_ITS | Encounter Summary ---
Author Organization [facility] Address [address] [place] [address] Phone Care Team Providers Care Fan Mail Editor Name Role Phone Ashkan Jacobson MD Primary Care Provider [phone] Encounter Details Date Type Department Care Team (Late st Contact Info) Description 08/21/2023 Documentation Only [facility] [place], [address] [place] [address] Xochilt Crawford [place] [address] [place] [address] Social History Tobacco Use Types [...] on filedocumented in this encounter Care Teams Fan Mail Editor Relationship Specialty Start Date End Date Ashkan Jacobson MD [address] [place] [address] 201 [place], [place] PCP - General 03/09/19 documented as of this encounter
--- OUTSIDE RECORDS SUMMARY | 2024-08-26 13:48 | XMS_ITS | Clinical Summary ---
Author Organization [facility] Address [address] [place] [address] Care Team Providers Care Horologist Name Role Phone Kaley Jacobson MD Primary Care Provider [phone] Surgical History Surgery Date Site/Laterality Comments TOTAL [...] Continued pain 03/2017, seeking 2nd opinion at [facility] History of CVA (cerebrovascu lar accident) 06/06/2017 [...] age to complete this topic Care Teams Horologist Relationship Specialty Start Date End Date Kaley Jacobson MD [address] [place] [address] PCP - General Internal Medicine 03/11/17
--- OUTSIDE RECORDS SUMMARY | 2024-08-26 13:48 | XMS_ITS | Encounter Summary ---
Author Organization [facility] Address [address] [place] [address] Phone Care Team Providers Care Unix Engineer Name Role Phone Ashkan Jacobson MD Primary Care Provider [phone] Encounter Details Date Type Department Care Team (Late st Contact Info) Description 12/19/2023 Documentation Only [facility] [place], [address] [place] [address] Xochilt Crawford [place] [address] [place] [address] Social History Tobacco Use Types [...] on filedocumented in this encounter Care Teams Unix Engineer Relationship Specialty Start Date End Date Ashkan Jacobson MD [address] [place] [address] 201 [place], [place] PCP - General 03/09/19 documented as of this encounter
--- OUTSIDE RECORDS SUMMARY | 2024-08-26 13:48 | XMS_ITS | Encounter Summary ---
Author Organization [facility] Address [address] [place] [address] Phone Care Team Providers Care Newspaper Photojournalist Name Role Phone Ashkan Jacobson MD Primary Care Provider Encounter Details Date Type Department Care Team (Late st Contact Info) Description 07/30/2023 Documentation Only [facility] [place], [address] [place] [address] Xochilt Crawford [place] [address] [place] [address] Social History Tobacco Use Types [...] on filedocumented in this encounter Care Teams Newspaper Photojournalist Relationship Specialty Start Date End Date Ashkan Jacobson MD [address] [place] [address] 201 [place], [place] PCP - General 03/09/19 documented as of this encounter
== END 2024-08-26 12:24 | disposition home or self-care (01) ==
LOC: HO.HUSH 11:29
PROVIDERS: PCP Internal Medicine; Visit Provider Nurse Practitioner Family
DX: N13.30 Unspecified hydronephrosis (principal); R10.9 Unspecified abdominal pain; Z13.9 Encounter for screening, unspecified
CPT/HCPCS: 99213; G2211

== ENCOUNTER → 2024-08-26 11:29 | Outpatient (BNVA) | payer OTHER, SELFPAY | PROVIDERS: PCP Internal Medicine; Visit Provider Nurse Practitioner Family | DX: N13.30 Unspecified hydronephrosis (principal); R10.9 Unspecified abdominal pain | CPT/HCPCS: 81003; 99212 ==

== ENCOUNTER 2024-09-07 12:02 | Outpatient (AMB) | payer OTHER, SELFPAY ==
--- NOTE | 2024-09-07 12:56 | A.OFFVIS_ITS ---
Intake Intake Visit Reasons: T2DM/CGM Bowling Pin Setters Installer Required: Yes Bowling Pin Setters Installer Language: Ciaio Counter Molder Services: Bowling Pin Setters Installer Present Bowling Pin Setters Installer Name: [facility] [place] Information Interpreted: non-clinical & clinical Accompanied by: Spouse Allergies latex [LATEX] Allergy (Mild, Verified 08/26/24 12:26) RASH metformin Adverse Reaction (Verified 08/26/24 12:26) Unknown HPI Comprehensive Diabetes Asmnt Most Recent Diabetes Results: Microalb/Creat Ratio TNP ug/mg cr 01/28/20 Cholesterol 222 mg/dL (<200) H 01/27/24 HDL Cholesterol 54 mg/dL (>40) 01/27/24 Triglycerides 195 mg/dL (<150) H 01/27/24 Creatinine 1.28 mg/dL (0.5-1.4) 06/01/24 Blood Urea Nitrogen 24 mg/dL (9-16) H 06/01/24 Sodium 145 mmol/L (135-145) 06/01/24 Potassium 4.0 mmol/L (3.3-5.1) 06/01/24 Chloride 108 mmol/L (96-108) 06/01/24 Carbon Dioxide 26 mmol/L (22-29) 06/01/24 Calcium 9.7 mg/dL (8.4-10.2) 06/01/24 AST 19 U/L (5-31) 06/01/24 ALT 17 U/L (0-31) 06/01/24 Total Protein 8.2 g/dL (6.5-8.0) H 06/01/24 Albumin 4.6 g/dL (3.5-5.0) 06/01/24 [facility] Medical History Anxiety Depression GERD (gastroesophageal reflux disease) COVID-19 vaccine series completed Tachycardia Toxic multinodul goiter Chronic renal insufficiency Nephrolithiasis Cyst, kidney, acquired Diabetic neuropathy BMI 34.0-34.9,adult BMI 35.0-35.9,adult BMI 36.0-36.9,adult Pre-op evaluation B12 deficiency Obesity (BMI 30-39.9) Non-toxic multinodular goiter Dyslipidemia Diabetic 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 with type 2 diabetes mellitus residential (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 insulin Distal radius fracture, right HTN (hypertension) Chronic kidney disease Diabetes type 2, uncontrolled Surgical History History of abdominoplasty History of surgery S/P fine needle aspiration S/P laparoscopic sleeve gastrectomy History of esophagogastroduodenoscopy (EGD) H/O colonoscopy Hx of biopsy History of partial hysterectomy History of total right knee replacement History of total left knee replacement (~2010) Hx of cholecystectomy History of section History of carpal tunnel release (~2017) Family History Father Hypertension Diabetes History of kidney cancer Mother Diabetes Hypertension Heart disease Brother Hypertension Diabetes Brother No problems noted. Son Hypertension Prediabetes Heart disease Daughter Prediabetes Social History Household Members: Spouse Housing: Apartment Are you a primary before and after school daycare worker to a significant other at home: No Do you presently have visiting nurse or other home services: No Alcohol intake: never Patient Tobacco Use Status: Never used Tobacco service: No Assessment & Plan Assessment & Plan (1) Diabetes type 2, uncontrolled: Comment: glucose usually ~ 138-180 Code(s): E11.65 - Type 2 diabetes mellitus with hyperglycemia Plan: CGM Info Instructed Pt on what CGM can and can't do CGM Can: Give Pt minute by minute reading of glucose levels Displays glucose trend arrows that represents the direction glucose levels are fluctuating Give insight on decisions about how to dose insulin CGM cannot: Improve glucose control on its own Completely eliminate the need for all finger sticks Make dosing decision for you CGM is the reading of glucose in the interstitial fluid not actual blood glucose, finger sticks are still necessary when Pt's symptom?s do not match sensor reading and if sensors prompts Pt to do a fingerstick Patient? is interested in the Reviewed guidelines for obtaining CGM Patient is currently not on insulin but stated at today's visit that she believes that she would benefit from a basal insulin dose Patient also reports that in July 2024 she was in the ED for hyperglycemia, however there is no documentation from ED. There is a reference to recent hospitalization from the urologist that she saw in August 2024 Patient also reported that she has difficulty with adhesion of her Jame 2 sensors, she has tried overlay patches in the past. Patient was given a sample of skin tack in instructed how to apply to skin at today's visit Provider to write prescription for Jame 3+, after review of glucose data which will be brought in tomorrow the MD can determine if basal insulin is approp riate. Reviewed delay of CGM from fingersticks Reminded pt that if symptoms do not match sensor still needs to check fingersticks. Portions of this note were created using voice recognition software, please excuse any words or phrases that may have been misinterpreted. Coding Level of Care Code Est Pt Level 1 (40230) Diagnoses Diabetes type 2, uncontrolled E11.65
--- OUTSIDE RECORDS SUMMARY | 2024-09-07 13:33 | XMS_ITS | Encounter Summary ---
Author Organization [facility] Address [address] [place] [address] Phone Care Team Providers Care Shoulder Joiner Name Role Phone Ashkan Jacobson MD Primary Care Provider [phone] Encounter Details Date Type Department Care Team (Late st Contact Info) Description 03/22/2021 Documentation Only [facility] [place], [address] [place] [address] Macy Giraldo PA Social History [...] on filedocumented in this encounter Care Teams Shoulder Joiner Relationship Specialty Start Date End Date Ashkan Jacobson MD [address] [place] [address] 201 [place], [place] PCP - General 03/09/19 documented as of this encounter
--- OUTSIDE RECORDS SUMMARY | 2024-09-07 13:33 | XMS_ITS | Encounter Summary ---
Author Organization [facility] Address [address] [place] [address] Phone Care Team Providers Care Appeals Court Associate Justice Name Role Phone Ashkan Jacobson MD Primary Care Provider [phone] Encounter Details Date Type Department Care Team (Late st Contact Info) Description 09/24/2022 Documentation Only [facility] [place], [address] [place] [address] Godfrey Marcum MD [address] [place] [address] Social History Tobacco Use Types [...] on filedocumented in this encounter Care Teams Appeals Court Associate Justice Relationship Specialty Start Date End Date Ashkan Jacobson MD [address] [place] [address] 201 [place], [place] PCP - General 03/09/19 documented as of this encounter
--- OUTSIDE RECORDS SUMMARY | 2024-09-07 13:33 | XMS_ITS | Encounter Summary ---
Author Organization [facility] Address [address] [place] [address] Phone Care Team Providers Care Cath Lab Nurse Name Role Phone Ashkan Jacobson MD Primary Care Provider [phone] Encounter Details Date Type Department Care Team (Late st Contact Info) Description 06/19/2021 Documentation Only [facility] [place], [address] [place] [address] Macy Giraldo PA Social History [...] on filedocumented in this encounter Care Teams Cath Lab Nurse Relationship Specialty Start Date End Date Ashkan Jacobson MD [address] [place] [address] 201 [place], [place] PCP - General 03/09/19 documented as of this encounter
--- OUTSIDE RECORDS SUMMARY | 2024-09-07 13:33 | XMS_ITS | Encounter Summary ---
Author Organization [facility] Address [address] [address] Care Team Providers Care Account Executive Metalworking Name Role Phone Ginette Fortune MD Primary Care Provide r Reason for Referral * Consultation (Routine) - Authorized Specialty Diagnoses / Procedures Referred By Eula winston Referred To Contact Orthopaedic Surgery Diagnoses Acute pain of left knee Drea Monroy MD [address] [place] [address] Phone: tel: fax: [facility] [address] [place] [address] [place] [address] Phone: tel: fax: Referral ID Status Reason Start Date Expiration Date Visits Requested Visits Authorized [id number] Authorized Specialty Services Required 11/14/2023 11/13/2024 1 1 Encounter Details Date Type Department Care Team (Late st Contact Info) Description 11/14/2023 Orders Only [facility] PEDS [address] [place], [place] [phone] Drea Monroy MD [address] [place], [place] [id number] Acute pain of left knee (Primary Dx) [...] Description 09/13/2024 9:00 AM EDT Office Visit [facility] MEDICINE [address] [place] [address] Ginette Fortune MD [address] [place] [address] Scheduled Referrals Name Type Priority Associated Diagnoses [...] documented as of this encounter Care Teams Account Executive Metalworking Relationship Specialty Start Date End Date Ginette Fortune MD [address] [place] [address] PCP - General Internal Medicine 10/27/23 documented as of this encounter
--- OUTSIDE RECORDS SUMMARY | 2024-09-07 13:33 | XMS_ITS | Encounter Summary ---
Author Organization [facility] Address [facility] [place] [address] Care Team Providers Care Cloth Grader Supervisor Name Role Phone Kaley Jacobson MD Primary Care Provider Unavailab le Encounter Details Date Type Department Care Team Description 05/02/2017 Transfer Records Medical Records [address] [place] [id number] Abstract, Provider Social History Tobacco Use Types Packs/Day Years Used Date Smoking Tobacco: Never Alcohol Use Standard Drinks/Week Comments No 0 (1 standard drink = 0.6 oz pur e alcohol) Sex Assigned at Date Recorded Not on file documented as of this encounter Nursing Notes * Chio Capone - 05/02/2017 4:34 PM EST Transfer Records from Dr. Kaley Jacobson sent to Carlotta Suarez R.N. Sales Promoter. documented in this encounter Plan of Treatment Not on file documented as of this encounter Visit Diagnoses Not on filedocumented in this encounter Care Teams Cloth Grader Supervisor Relationship Specialty Start Date End Date Kaley Jacobson MD PCP - General Internal Medicine 03/11/17 documented as of this encounter
--- OUTSIDE RECORDS SUMMARY | 2024-09-07 13:33 | XMS_ITS | Encounter Summary ---
Author Organization [facility] Address [address] [place] [address] Phone Care Team Providers Care Electro Mechanical Technician Name Role Phone Ashkan Jacobson MD Primary Care Provider [phone] Encounter Details Date Type Department Care Team (Late st Contact Info) Description 12/18/2021 Documentation Only [facility] [place], [address] [place] [address] Macy Giraldo PA Social History [...] on filedocumented in this encounter Care Teams Electro Mechanical Technician Relationship Specialty Start Date End Date Ashkan Jacobson MD [address] [place] [address] 201 [place], [place] PCP - General 03/09/19 documented as of this encounter
--- OUTSIDE RECORDS SUMMARY | 2024-09-07 13:33 | XMS_ITS | Encounter Summary ---
Author Organization [facility] Address [address] [place] [address] Phone Care Team Providers Care Framing Manager Name Role Phone Ashkan Jacobson MD Primary Care Provider [phone] Encounter Details Date Type Department Care Team (Late st Contact Info) Description 09/28/2021 Documentation Only [facility] [place], [address] [place] [address] Macy Giraldo PA Social History [...] on filedocumented in this encounter Care Teams Framing Manager Relationship Specialty Start Date End Date Ashkan Jacobson MD [address] [place] [address] 201 [place], [place] PCP - General 03/09/19 documented as of this encounter
--- OUTSIDE RECORDS SUMMARY | 2024-09-07 13:33 | XMS_ITS | Encounter Summary ---
Author Organization [facility] Address [address] [place] [address] Phone Care Team Providers Care Underwear Finisher Name Role Phone Ashkan Jacobson MD Primary Care Provider [phone] Encounter Details Date Type Department Care Team (Late st Contact Info) Description 09/18/2021 Documentation Only [facility] [place], [address] [place] [address] Macy Giraldo PA Social History [...] on filedocumented in this encounter Care Teams Underwear Finisher Relationship Specialty Start Date End Date Ashkan Jacobson MD [address] [place] [address] 201 [place], [place] PCP - General 03/09/19 documented as of this encounter
--- OUTSIDE RECORDS SUMMARY | 2024-09-07 13:33 | XMS_ITS | Clinical Summary ---
Author Organization [facility] Address [address] [place] [address] Care Team Providers Care Auto Body Repair Estimator Name Role Phone Kaley Jacobson MD Primary [...] Continued pain 03/2017, seeking 2nd opinion at [facility] History of CVA (cerebrovascular accident ) 06/06/2017 Overview: 06/27/2016 Duplex bilat carotid US, no evidence of significant stenosis. Lipoma of left thigh 06/06/2017 Overview: 03/21/2016 bx Multiple renal cysts 06/06/2017 Overview: Bilateral, 06/04/2016 Multiple thyroid nodules 06/06/2017 Overview: US 12/2015 Multiple pulmonary nodules 06/06/2017 Overview: Bilaterally, chest CT 12/2015 Depression HTN (hypertension) Immunizations Name Administration Dates Next Due Ielts-Ktfgd-Izwbykhi + 10/04/2014 Varicella Titre-Positive + 10/04/2014 Social [...] Ended) 2025 022, 01/09/2016, 02/04/2015 Care Teams Auto Body Repair Estimator Relationship Specialty Start Date End Date Kaley Jacobson MD PCP - General Internal Medicine 03/11/17
--- OUTSIDE RECORDS SUMMARY | 2024-09-07 13:33 | XMS_ITS | Encounter Summary ---
Author Organization [facility] Address [address] [place] [address] Phone Care Team Providers Care Php Programmer Name Role Phone Ashkan Jacobson MD Primary Care Provider [phone] Encounter Details Date Type Department Care Team (Late st Contact Info) Description 04/04/2022 Documentation Only [facility] [place], [address] [place] [address] Macy Giraldo PA Social History [...] on filedocumented in this encounter Care Teams Php Programmer Relationship Specialty Start Date End Date Ashkan Jacobson MD [address] [place] [address] [address] [place], [place] PCP - General 03/09/19 documented as of this encounter
--- OUTSIDE RECORDS SUMMARY | 2024-09-07 13:34 | XMS_ITS | Encounter Summary ---
Author Organization [facility] Address [address] [place] [address] Phone Care Team Providers Care Manager Social Media Name Role Phone Ashkan Jacobson MD Primary Care Provider [phone] Encounter Details Date Type Department Care Team (Late st Contact Info) Description 02/04/2024 Documentation Only [facility] [place], [address] [place] [address] Xochilt Crawford [place] [address] [place] [address] Social History Tobacco Use Types [...] filedocumented in this encounter Care Teams Manager Social Media Relationship Specialty Start Date End Date Ashkan Jacobson MD [address] [place] [address] [address] [place], [place] PCP - General 03/09/19 documented as of this encounter
--- OUTSIDE RECORDS SUMMARY | 2024-09-07 13:34 | XMS_ITS | Encounter Summary ---
Author Organization [facility] Address [address] [place] [address] Phone Care Team Providers Care Outbound Sales Advisor Name Role Phone Ashkan Jacobson MD Primary Care Provider [phone] Encounter Details Date Type Department Care Team (Late st Contact Info) Description 08/21/2023 Documentation Only [facility] [place], [address] [place] [address] Xochilt Crawford [place] [address] [place] [address] Social History Tobacco Use Types [...] on filedocumented in this encounter Care Teams Outbound Sales Advisor Relationship Specialty Start Date End Date Ashkan Jacobson MD [address] [place] [address] 201 [place], [place] PCP - General 03/09/19 documented as of this encounter
--- OUTSIDE RECORDS SUMMARY | 2024-09-07 13:34 | XMS_ITS | Clinical Summary ---
Author Organization [facility], Address [address] [place] [address] [place] [address] Phone Care Team Providers Care Spikemaking Supervisor Name Role Phone Ashkan Jacobson MD Primary Care Provider [phone] Allergies Active Allergy Reactions Criticality Noted Date [...] AM EDT) Hemoglobin A1C 6.7(H) (4.0-5.6) % [facility] Comment: MONITORING: In known diabetic patients, hemoglobin A1c targets should be discussed with health care provider. DIAGNOSTIC USE: ??The [place] Diabetes Association (ADA) and the World Health [...] Supplement 1 Testing performed or reported by [facility], a Service of [facility], [address] [place] [id number] Familia Britton MD, Journalists And Other Writers [facility]# [id number] Blood (Blood, Venous) 02/05/2023 10:48 AM EDT 02/05/2023 10:49 AM EDT Godfrey Marcum MD LAB BLOOD ORDERABLES Final Re sult [facility] from Last 3 Months or Most Recently Relevant to Health Maintenance Insurance [facility] Care Dual SNP ([id number]) [place] [id number] Care Teams Spikemaking Supervisor Relationship Specialty Start Date End Date Ashkan Jacobson MD [address] [place] [address] PCP - General 03/09/19
--- OUTSIDE RECORDS SUMMARY | 2024-09-07 13:34 | XMS_ITS | Encounter Summary ---
Author Organization [facility] Address [address] [place] [address] Phone Care Team Providers Care Polarity Tester Name Role Phone Ashkan Jacobson MD Primary Care Provider [phone] Encounter Details Date Type Department Care Team (Late st Contact Info) Description 08/28/2023 Documentation Only [facility] [place], [address] [place] [address] [place] [address] Social History Tobacco Use Types [...] on filedocumented in this encounter Care Teams Polarity Tester Relationship Specialty Start Date End Date Ashkan Jacobson MD [address] [place] [address] [address] [place], [place] PCP - General 03/09/19 documented as of this encounter
--- OUTSIDE RECORDS SUMMARY | 2024-09-07 13:34 | XMS_ITS | Encounter Summary ---
Author Organization [employer] Address [address] [facility] 7t [place] [address] Care Team Providers Care Clinical Operations Consultant Name Role Phone Ginette Fortune MD Primary Care Provide r Encounter Details Date Type Department Care Team (Latest Contact Info) Description 09/07/2024 Travel Social History Tobacco Use Types Packs/Day Years [...] Description 09/13/2024 9:00 AM EDT Office Visit [facility] MEDICINE [address] [place] [address] Ginette Fortune MD [address] [place] [address] documented as of this encounter Visit Diagnoses Not on filedocumented in this encounter Additional Health Concerns Assessment Noted Time PHQ-9 Depression Total Score: 0 10/21/19 10:02 AM EDT documented as of this encounter Care Teams Clinical Operations Consultant Relationship Specialty Start Date End Date Ginette Fortune MD [address] [place] [address] PCP - General Internal Medicine 10/27/23 documented as of this encounter
--- OUTSIDE RECORDS SUMMARY | 2024-09-07 13:34 | XMS_ITS | Encounter Summary ---
Author Organization [employer] Address [address] [facility] 7t [place] [address] Care Team Providers Care Wood Carving Machine Operator Name Role Phone Ginette Fortune MD Primary Care Provide r Reason for Visit * Reason Comments Pre-visit Planning SDOH unable to reach LVM Encounter Details Date Type Department Care Team ([facility] st Contact Info) Description 09/06/2024 Patient Outreach [facility] MED & PEDS [address] [place] [address] Ginette Fortune MD [address] [place] [address] Pre-visit Planning (SDOH unable to reach LVM) Social History Tobacco Use Types Packs/Day Years [...] PM EDT documented as of this encounter Progress Notes * Jacey Gallegos - 09/06/2024 4:12 PM EDT LEONIE Moore placed outbound call to patient to complete pre-visit planning. No answer at this time. Patient name and were not confirmed. CC left voicemail requesting return call. Direct contactinformation provided. documented in this encounter Plan of Treatment Upcoming Encounters Date Type Department Care Team (Late st Contact Info) Description 09/13/2024 9:00 AM EDT Office Visit [facility] MEDICINE [address] [place], [place] [phone] Ginette Fortune MD [address] [place], [place] [phone] documented as of this encounter Visit Diagnoses Not on filedocumented in this encounter Additional Health Concerns Assessment Noted Time PHQ-9 Depression Total Score: 0 10/21/19 24 10:02 AM EDT documented as of this encounter Care Teams Wood Carving Machine Operator Relationship Specialty Start Date End Date Ginette Fortune MD [address] [place] [address] PCP - General Internal Medicine 10/27/23 documented as of this encounter
--- OUTSIDE RECORDS SUMMARY | 2024-09-07 13:34 | XMS_ITS | Encounter Summary ---
Author Organization [facility] Address [address] [place] [address] Phone Care Team Providers Care Back Roller Name Role Phone Ashkan Jacobson MD Primary Care Provider Encounter Details Date Type Department Care Team (Late st Contact Info) Description 07/23/2023 Documentation Only [facility] [place], [address] [place] [address] Xochilt [place] [address] [place] [address] Social History Tobacco Use Types [...] on filedocumented in this encounter Care Teams Back Roller Relationship Specialty Start Date End Date Ashkan Jacobson MD [address] [place] [address] [address] [place], [place] PCP - General 03/09/19 documented as of this encounter
--- OUTSIDE RECORDS SUMMARY | 2024-09-07 13:34 | XMS_ITS | Encounter Summary ---
Author Organization [facility] Address [address] [place] [address] Phone Care Team Providers Care Field Service Representative Name Role Phone Ashkan Jacobson MD Primary Care Provider [phone] Encounter Details Date Type Department Care Team (Late st Contact Info) Description 08/04/2023 Documentation Only [facility], [address] [place] [address] Xochilt Crawford [place] [address] [place] [address] Social History Tobacco Use Types [...] filedocumented in this encounter Care Teams Field Service Representative Relationship Specialty Start Date End Date Ashkan Jacobson MD [address] [place] [address] [address] [place], [place] PCP - General 03/09/19 documented as of this encounter
--- OUTSIDE RECORDS SUMMARY | 2024-09-07 13:34 | XMS_ITS | Encounter Summary ---
Author Organization [facility] Address [address] [place] [address] Phone Care Team Providers Care Exchange Clerk Name Role Phone Ashkan Jacobson MD Primary Care Provider [phone] Encounter Details Date Type Department Care Team (Late st Contact Info) Description 02/17/2024 Documentation Only [facility] [place], [address] [place] [address] Xochilt [place] [address] [place] [address] Social History Tobacco Use Types [...] on filedocumented in this encounter Care Teams Exchange Clerk Relationship Specialty Start Date End Date Ashkan Jacobson MD [address] [place] [address] [address] [place], [place] PCP - General 03/09/19 documented as of this encounter
--- OUTSIDE RECORDS SUMMARY | 2024-09-07 13:34 | XMS_ITS | Clinical Summary ---
Author Organization [employer] Address [address] [facility] 7t [place] [address] Care Team Providers Care Garment Tag Stringer Name Role Phone Ginette Fortune MD Primary [...] day for anxiety. 4 Active Continuous Glucose Conveyor Man (FreeStyle Jame 2 [place]) device 4 Active docusate sodium (Colace) 100 [...] Thyroid nodule 01/27/2024 Type 2 diabetes mellitus, [facility] long-term current use of insulin 10/21/2023 Assessment [...] weight management Griffin Cuellar NP (located on [address] [place] [address] 234 phone [phone]) Diabetes is: controlled - Lab Results Component [...] psychiatrist Keiko Philippe located on [address] [place] [address] phone [phone] it is being prescribed for her trazodone, [...] Encounters Date Type Department Care Team Description 09/07/2024 Travel 09/06/2024 Patient Outreach [facility] CHC MED & PEDS [address] [place] [address] Ginette Fortune MD Pre-visit Planning ([facility] unable to reach LV) 08/18/2024 Orders Only GENERIC EXTERNAL DATA DEPARTMENT Provider, Generic External Data 08/16/2024 Orders Only [facility] External Provider, [facility] 06/15/2024 1:15 PM EST Office Visit [facility] MEDICINE [address] [place] [address] Ginette Fortune MD Hydronephrosis, unspecified hydronephrosis type (Primary Dx); Type 2 diabetes mellitus with stage 3 chronic kidney disease, without long-term current use of insulin, unspecified whether stage 3a or 3b CKD (CMS/HCC) 06/15/2024 Travel from Last 3 Months Immunizations Name [...] Description 09/13/2024 9:00 AM EDT Office Visit [facility] MEDICINE [address] [place] [address] Ginette Fortune MD [address] [place] [address] Health Maintenance Due Date Last Done Comments CT Colonography 1961 Colonoscopy 1961 Colorectal Cancer Screening 1961 FIT DNA/Cologuard 1961 FIT 1961 FOBT 1961 HIV Screening 1961 Sigmoidoscopy 1961 Eye Exam 1971 Pap Smear 1982 HPV/Cotest 1991 COVID-19 Vaccine ( season) 2024 04/19/2021, 07/26/2020 Diabetes: Hemoglobin A1C 10/13/2024 024, 10/21/2023, 02/05/2023 Alcohol/Substance Use Screening 10/20/2024 10/21/2023 Depression Screening [...] stage 3a or 3b CKD (CMS/HCC) POCT GLYCATED HEMOGLOBIN, TOTAL Routine 04/14/2024 10:13 [...] Whole Blood 188(H) 60 - 115 mg/dL [facility] Comment:METER #: [id number] Testing performed in the Endocrinology Department [address] , [address], [place]. 08/18/2024 1:23 PM EDT 08/18/2024 1:27 PM EDT us Generic External Data Provider LAB BLOOD ORDERAB LES Final Result [facility] [address] [place] [address] [phone] * US RENAL BI (08/16/2024 4:39 PM EDT) Anatomical Region Laterality Modality Abdomen Ultrasound 08/16/2024 4:39 PM EDT Narrative 08/16/2024 4:41 PM EDT ? [facility] ?[address] ?[place] [address] ? Ultrasound Report ? Signed ? Patient: Rosie Iverson ?MR#: [id number] ? : 1960 ?Acct:[id number] ? Age/Sex: 64 / F ?ADM Date: 08/16/24 ? Loc: HO.US ? Attending Dr: Renato Bloom MD ? Ordering Physician: Renato Bloom MD ?? Date of Service: 08/16/24 ?? Procedure(s): US renal BI ?? Accession Number(s): [id number] ? cc: Ginette Fortune MD; Renato Bloom [...] DD/ 1639 ? TD/TT: 08/16/24 1639 ? Violin Mechanic: ? Procedure Note Prabhakar, Image - 08/16/2024 [place] [address] Ultrasound Report Signed Patient: Jovani Iverson#: [id number] : 2Acct:[id number] Age/Sex: 64 / FADM Date: 08/16/24 Loc: HO.US Attending Dr: Renato Bloom MD Ordering Physician: Renato Bloom MD Date of Service: 08/16/24 Procedure(s): US renal BI Accession Number(s): [id number] cc: Ginette Fortune MD; Renato Bloom MD [...] 08/16/24 1640 DD/ 1639 TD/TT: 08/16/24 1639 Violin Mechanic: [facility] External Provider IMG US PROCEDURES Edited Result - Final * POCT Glucose (06/15/2024 1:29 PM EST) Glucose Blood, POC 101 60 - 200 mg/dL QC Media Lot # [id number] Lot# Expiration Date , Blood Capillary blood specimen / Unknown 06/15/2024 1:29 PM EST Ginette Freeman MD POINT OF CARE TEST EN TER/EDIT ORDERABLES Final Result * (ABNORMAL) POCT HGB A1C (04/14/2024 10:13 AM EST) Hemoglobin A1C 6.5(A) 4.0 - 6.0 % QC Media Lot # [id number] Lot# Expiration Date ,227,041 Blood 04/14/2024 10:1 3 AM EST Result [facility] Ginette Freeman MD POINT OF CARE TEST EN TER/EDIT ORDERABLES Final Result * BI Mammogram Screening Tomosynthesis Bilateral (03/09/2024 1:20 PM EST) Anatomical Region Laterality Modality Breast Bilateral Mammography 03/09/2024 1:20 PM EST Narrative 03/17/2024 1:55 PM EST ? [facility] ? [address] ?[place] [address] ? Mammography Report ? Signed ? Patient: Iverson,Rosie ?MR#: [id number] ? : 1960 ?Acct:[id number] ? Age/Sex: 63 / F ?ADM Date: 03/09/24 ? Loc: HO.MAMMO ? Attending Dr: Ginette Freeman MD ? Ordering Physician: Ginette Fortune MD ?Results: ?? 1Negative ? Date of Service: 03/09/24 ?Follow Up: 1 Year From Orig ?? inal Mammogram ? Procedure(s): MM tomosynthesis screening BI ?? Accession Number(s): [id number] ? cc: Ginette Fortune MD ? EXAMINATION: [...] DD/ 1320 ? TD/TT: 03/09/24 1335 ? Violin Mechanic: ? Procedure Note Prabhakar, Image - 03/17/2024 [facility] [address] [place] [address] Mammography Report Signed Patient: Jovani Iverson#: [id number] : 2Acct:[id number] Age/Sex: 63 / FADM Date: 03/09/24 Loc: HO.MAMMO Attending Dr: Ginette Freeman MD Ordering Physician: Ginette Fortune MDResults: 1Negative Date of Service: 03/09/24Follow Up: 1 Year From Orig inal Mammogram Procedure(s): MM tomosynthesis screening BI Accession Number(s): [id number] cc: Ginette Fortune MD EXAMINATION: MM SCREENING [...] by: Amy Lu DO 03/17/2024 01:52 PM [facility] Dictated By: Amy Lu DO Signed By: <Electronically signed by Amy Lu DO in OV> 03/17/24 1352 DD/ 1320 TD/TT: 03/09/24 1335 Violin Mechanic: us Ginette Freeman MD IMG BI PROCEDURES Fin al Result * Hepatitis C Antibody with Reflex to HCV, RNA, Quantitative, Real-Time PCR (01/27/2024 10:22 AM EDT) Hepatitis C Antibody Nonreactive Nonreactive [facility] Comment:Antibodies to HCV no t detected; does not exclude early acuteHCV infection. Blood Venous blood specimen / Unknown 01/27/2024 10:22 AM EDT 01/27/2024 11:20 AM EDT Ginette Freeman MD LAB BLOOD ORDERABLES Final Result [facility] [address] [place] [address] [phone] * (ABNORMAL) Lipid Panel, Standard (01/27/2024 10:22 AM EDT) Triglycerides 195(H) <150 mg/dL [facility] Comment:Desirable Triglyceri de: less than 150 mg/dLBorderline High Triglyceride 150-199 mg/dLHigh Triglyceride: 200-499 mg/dLVery High Triglyceride: greater than or equal to 5OO mg/dL Cholesterol 222(H) <200 mg/dL [facility] Comment:Desirable Cholestero l: less than 200 mg/dLBorderline High Cholesterol: 200-239 mg/dLHigh Cholesterol: greater than 239 mg/dL LDL Cholesterol Calculated 129(H) <100 mg/dL [facility] Comment:Desirable LDL: less than 100 mg/dLNear Optimal/Above Optimal LDL: 110- 129 mg/dLBorderline High LDL: 130-159 mg/dLHigh LDL: 160-189 mg/dLVery High LDL: greater than or equal to 190 mg/dL HDL Cholesterol 54 >40 mg/dL [facility] Comment:Desirable HDL: great er than 40 mg/dL Note: This HDL assay may give artificially low results in patients with liver disease. Blood Venous blood specimen / Unknown 01/27/2024 10:22 AM EDT 01/27/2024 11:20 AM EDT us Ginette Freeman MD LAB BLOOD ORDERABLES Final Result [facility] [address] [place] [address] [phone] from Last 3 Months or Most Recently Relevant to Health Maintenance Insurance [employer] < [address] [place] [id number] Care Teams Garment Tag Stringer Relationship Specialty Start Date End Date Ginette Fortune MD [address] [place] [address] PCP - General Internal Medicine 10/27/23
--- OUTSIDE RECORDS SUMMARY | 2024-09-07 13:34 | XMS_ITS | Clinical Summary ---
Author Organization [employer] [facility] Address [address] [place] [address] Care Team Providers Care Pattern Puncher Name Role Phone Kaley Jacobson MD Primary Care Provider [phone] Surgical History Surgery Date Site/Laterality Comments TOTAL KNEE ARTHROPLASTY 2009 PROCEDURE: [place] ARTHRP KNE CONDYLE&PLATU MEDIAL&LAT COMPARTMENTS CHOLECYSTECTOMY PROCEDURE: [place] LAPAROSCOPY SURG CHOLECYSTECTOMY SECTION PROCEDURE: HISTORICAL OTHER [...] Continued pain 03/2017, seeking 2nd opinion at [facility] History of CVA (cerebrovascu lar accident) [...] age to complete this topic Care Teams Pattern Puncher Relationship Specialty Start Date End Date Kaley Jacobson MD [address] [place] [phone] PCP - General Internal Medicine 03/11/17
--- OUTSIDE RECORDS SUMMARY | 2024-09-07 13:34 | XMS_ITS | Encounter Summary ---
Author Organization [facility] Address [address] [place] [address] Phone Care Team Providers Care Freight Car Repairer Name Role Phone Ashkan Jacobson MD Primary Care Provider Encounter Details Date Type Department Care Team (Late st Contact Info) Description 07/30/2023 Documentation Only [facility] [place], [address] [place] [address] Xochilt Crawford [place] [address] [place] [address] Social History Tobacco Use Types [...] on filedocumented in this encounter Care Teams Freight Car Repairer Relationship Specialty Start Date End Date Ashkan Jacobson MD [address] [place] [address] [address] [place], [place] PCP - General 03/09/19 documented as of this encounter
--- OUTSIDE RECORDS SUMMARY | 2024-09-07 13:34 | XMS_ITS | Data Portability ---
Author Organization [place] - [facility], [facility] Address [address] [place] [address] Assessment Encounter Date Assessment Date Assessment LastModified by Organization Details LastModified Time 08/31/2024 08/31/2024 Imaging: Imaging ordered, independently reviewed and interpreted by Renato Horner MD reveals the following findings: XR Knee Left Knee: Three views of the knee were obtained including AP, sunrise, and lateral views. Status post revision total knee arthroplasty. No evidence of complication, well fixed, well aligned. There is no evidence of loosening or migration. There is no evidence of osteolysis. No fractures are present. Alignment: Neutral Impression: Status post left revision total knee arthroplasty Plan: I explained to Rosie that the imaging and examination of her left knee feel remarkably well with the obvious exception of her lack of flexion in that knee, although this is something that has been present for many years and she understands will never improve. I do not have a clear explanation for the pain that she is experiencing when she lays down at night and I did recommend she try topical lidocaine patches in the area to see if that provides some relief. She has tried Voltaren gel without much benefit although was helping her right knee significantly. I certainly continue to recommend against further revision surgery in her left knee. Fortunately there are no signs of failure or loosening of her implants. She may follow up with me as needed [email or web address] Not available 08/31/2024 12:24:31 Plan of Treatment Reminders Order Date Submit Date Provider Last Modified By Organization Details Last Modified Time Details Appointments None recorded. Lab None recorded. Referral None recorded. Procedures None recorded. Surgeries None recorded. Imaging XR, knee, 3 view - 2nd opinion post LTKR. 3v room 202 2024 025 [email or web address], [address], [address], [place], [address], 5 10:24:56 XR, knee, 3 view - 209, 3 views of right knee. 2024 025 [email or web address], [address], [address], [place], [address], 5 08:05:15 XR, knee, 3 view - rm 308 3 LTKR done in [place] 2009 pain , no trauma 2023 024 [email or web address] [facility], [address], [address], [place], [address], 4 10:26:53 Medication Orders lidocaine 4 % topical patch [email or web address] [facility], [address] [place] [address], [id number], 5 15:55:51 Voltaren Arthritis Pain 1 % topical gel [address] [facility] [address] [facility], [address] [place] [address], [id number], 5 08:05:15 meloxicam 15 mg tablet [address] [facility] [address] [facility], [address] [place] [address], [id number], 5 08:05:15 meloxicam [address] [facility], [address] [place] [address], [id number], 4 10:00:54 Patient TargetsNo targets recorded. Patient InstructionsNo instructions recorded. Reason for Referral None Reported. Results Created Date Observation Date Name Description Value Unit Range Abnormal Flag Note LastModifiedBy Organization Detail LastModifiedTime 07/02/1907/02/2024 CBC WITH DIFFE RENTI AL/PL ATELE T WBC 8.4 K/mm3 4.0-11 .0 normal Not Available [address], [address], 07/02/2024 15:57:53 07/02/19 25 07/02/2024 CBC WITH DIFFE RENTI AL/PL ATELE T RBC 4.84 M/mm3 4.20-5 .40 normal Not Available [address], [address], 07/02/2024 15:57:53 07/02/19 25 07/02/2024 CBC WITH DIFFE RENTI AL/PL ATELE T hemoglobin 13.5 gm/dL 11.7-1 5.5 normal Not Available [address], [address], 07/02/2024 15:57:53 07/02/19 25 07/02/2024 CBC WITH DIFFE RENTI AL/PL ATELE T hematocrit 42.2 % 35.7-4 5.8 normal Not Available [address], [address], 07/02/2024 15:57:53 07/02/19 25 07/02/2024 CBC WITH DIFFE RENTI AL/PL ATELE T MCV 87.2 fL 80.0-1 00.0 normal Not Available [address], [address], 07/02/2024 15:57:53 07/02/19 25 07/02/2024 CBC WITH DIFFE RENTI AL/PL ATELE T MCH 27.9 pg 27.0-3 4.0 normal Not Available [address], [address], 07/02/2024 15:57:53 07/02/19 25 07/02/2024 CBC WITH DIFFE RENTI AL/PL ATELE T MCHC 32.0 g/dL 33.0-3 7.0 below low normal Not Available [address], [address], 07/02/2024 15:57:53 07/02/19 25 07/02/2024 CBC WITH DIFFE RENTI AL/PL ATELE T RDW 43.8 fL <47.0 Not Available [address], [address], 07/02/2024 15:57:53 07/02/19 25 07/02/2024 CBC WITH DIFFE RENTI AL/PL ATELE T platelets 245 K/mm3 150-46 0 normal Not Available [address], [address], 07/02/2024 15:57:53 07/02/19 25 07/02/2024 CBC WITH DIFFE RENTI AL/PL ATELE T neutrophils 56.9 % 44-76 normal Not Available [address], [address], 07/02/2024 15:57:53 07/02/19 25 07/02/2024 CBC WITH DIFFE RENTI AL/PL ATELE T lymphs 28.9 % 15-43 normal Not Available [address], [address], 07/02/2024 15:57:53 07/02/19 25 07/02/2024 CBC WITH DIFFE RENTI AL/PL ATELE T monocytes 10.5 % 4.5-10 .5 normal Not Available [address], [address], 07/02/2024 15:57:53 07/02/19 25 07/02/2024 CBC WITH DIFFE RENTI AL/PL ATELE T eos 2.8 % 0-6 normal Not Available [address], [address], 07/02/2024 15:57:53 07/02/19 25 07/02/2024 CBC WITH DIFFE RENTI AL/PL ATELE T basos 0.7 % 0-2 normal Not Available [address], [address], 07/02/2024 15:57:53 07/02/19 25 07/02/2024 CBC WITH DIFFE RENTI AL/PL ATELE T neutrophils (absolute) 4.8 K/mm3 1.3-7. 0 normal Not Available [address], [address], 07/02/2024 15:57:53 07/02/19 25 07/02/2024 CBC WITH DIFFE RENTI AL/PL ATELE T lymphs (absolute) 2.4 K/mm3 0.8-3. 1 normal Not Available [address], [address], 07/02/2024 15:57:53 07/02/19 25 07/02/2024 CBC WITH DIFFE RENTI AL/PL ATELE T monocytes(ab solute) 0.9 K/mm3 0.4-0. 9 normal Not Available [address], [address], 07/02/2024 15:57:53 07/02/19 25 07/02/2024 CBC WITH DIFFE RENTI AL/PL ATELE T eos (absolute) 0.2 K/mm3 0.0-0. 4 normal Not Available [address], [address], 07/02/2024 15:57:53 07/02/19 25 07/02/2024 CBC WITH DIFFE RENTI AL/PL ATELE T baso (absolute) 0.1 K/mm3 0.0-0. 1 normal Not Available [address], [address], 07/02/2024 15:57:53 07/02/19 25 07/02/2024 CBC WITH DIFFE RENTI AL/PL ATELE T immature granulocytes 0.2 % Not Available [address], [address], 07/02/2024 15:57:53 07/02/19 25 07/02/2024 CBC WITH DIFFE RENTI AL/PL ATELE T immature grans (abs) 0.0 K/mm3 Not Available [address], [address], 07/02/2024 15:57:53 07/02/19 25 07/02/2024 CBC WITH DIFFE RENTI AL/PL ATELE T NRBC 0.0 #/100 _WBC' s Not Available [address], [address], 07/02/2024 15:57:53 07/02/19 25 07/02/2024 CBC WITH DIFFE RENTI AL/PL ATELE T hematology comments: Commen t AUTOM ATED DIFFE RENTI AL MPV 12.4 FL 9.4-1 2.4 N ABS. NRBC 0.0 K/MM3 N Not Available [address], [address], 07/02/2024 15:57:53 07/02/19 25 07/02/2024 SEDIM ENTAT ION RATE- WESTE RGREN sedimentatio n rate-westerg eulalia 4 mm/HR 0-20 normal Not Available [address], [address], 07/02/2024 15:57:55 07/02/19 25 07/02/2024 C-GIOVANNI CTIVE PROTE IN, QUANT C-reactive protein, quant <0.3 mg/dL 0-0.5 Not Available [address], [address], 07/02/2024 15:57:56 12/09/19 24 12/09/2023 XR, knee, 3 view [email or web address] ?Encry pted=s hAaTro YD8dLq bEUv6g %2BXZw aYqtaq 0bqfl% 2Fg9IQ a4ajBk vP9nXo QUaueC m3YtLR FvZlgJ JJ8mAn tai3 6m2758 AC0Kob 3qHVar eUC8mr 84%3D INTERFACE [facility] [address], [place], [address], 12/09/2023 14:08:56 12/09/19 24 12/09/2023 XR, knee, 3 view [email or web address] ?Encry pted=s hAaTro YD8dLq bEUv6g %2BXZw aYqtaq 0bqfl% 2Fg9IQ a4ajBk vP9nXo QUaueC m3YtLR FvZlgJ JJ8mAn HZtai3 4r2787 AC0Kob 3qHVar eUC8mr 84%3D INTERFACE [facility] [address], [place], [address], 12/09/2023 14:08:57 07/24/19 25 07/23/2024 XR, knee, 3 view [email or web address] ?Encry pted=s hAaTro YD8dLq bEUv6g %2BXZw aYqtaq 0bqfl% 2Fg9IQ a4ajBk vP9nXo QUaueC m3YtLR FvZl JJ8City Hospitaltai3 5z6715 AC0KqY niHU6q vKiQtr MwF INTERFACE [facility] [address], [place], [address], 07/23/2024 15:34:18 07/24/19 25 07/23/2024 XR, knee, 3 view [email or web address] ?Encry pted=s hAaTro YD8dLq bEUv6g %2BXZw aYqtaq 0bqfl% 2Fg9IQ a4ajBk vP9nXo QUaueC m3YtLR FvZlgJ JJ8mAn HZtai3 8c6821 AC0KqY niHU6q vKiQtr MwF INTERFACE [facility] [address], [place], [address], 07/23/2024 15:34:20 09/01/19 25 08/31/2024 XR, knee, 3 view [email or web address] ?Encry pted=s hAaTro YD8dLq bEUv6g %2BXZw aYqtaq 0bqfl% 2Fg9IQ a4ajBk vP9nXo QUaueC m3YtLR FvZlgJ JJ8mAn HZtai3 6s4117 AC0Kla n6EUKa uKiQtr MwF INTERFACE [facility] [address], [place], [address], 08/31/2024 11:17:33 09/01/19 25 08/31/2024 XR, knee, 3 view [email or web address] ?Encry pted=s hAaTro YD8dLq bEUv6g %2BXZw aYqtaq 0bqfl% 2Fg9IQ a4ajBk vP9nXo QUaueC m3YtLR FvZlgJ JJ8mAn HZtai3 3e6000 AC0Kla n6EUKa uKiQtr MwF INTERFACE [facility] [address], [place], [address], 08/31/2024 11:17:35 Result Notes None recorded. Problems Name Problem SNOMED Code Status Onset Date Resolution Date Notes Provider Name and Address Organization Details Recorded Time No complaints 343228625 Active Status : 'I'; Not Available [facility] 09:20:27 History of left total knee replacemen t 0556866498081 105 Active 2024 Renato Horner MD [address], [place], [address] , [facility] 5 12:24:30 Diabetes mellitus 45621144 Active 2018 Status : 'A'; Not Available [facility] 4 11:27:59 Osteoarthr itis 276539369 Active 2018 Status : 'A'; Not Available [facility] 4 11:27:59 Osteopenia 010318463 Active 2018 Status : 'A'; Not Available [facility] 4 11:27:59 Non-toxic multinodul ar goiter 97525416 Active 2018 Status : 'A'; Not Available [facility] 4 11:27:59 Kidney disease 47498535 Active 2018 Status : 'A'; Not Available [facility] 4 11:27:59 Hyperlipid emia 50424988 Active 2018 Status : 'A'; Not Available [facility] 4 11:27:59 Depressive disorder 35703725 Active 2018 Status : 'A'; Not Available [facility] 4 11:27:59 Neuropathy due to diabetes mellitus 843821296 Active 2018 Status : 'A'; Not Available [facility] 4 11:27:59 Problem Notes None recorded. Procedures Surgical History None recorded. Imaging Results Imaging Date Name Status LastModified by [facility] Details LastModified Time 12/09/2023 XR, knee, 3 view completed INTERFACE [facility] [address], [place], [address], 12/09/2023 14:08:56 12/09/2023 XR, knee, 3 view completed INTERFACE [facility] [address], [place], [address], 12/09/2023 14:08:57 07/23/2024 XR, knee, 3 view completed INTERFACE [facility] [address], [place], [address], 07/23/2024 15:34:18 07/23/2024 XR, knee, 3 view completed INTERFACE [facility] [address], [place], [address], 07/23/2024 15:34:20 08/31/2024 XR, knee, 3 view completed INTERFACE [facility] [address], [place], [address], 08/31/2024 11:17:33 08/31/2024 XR, knee, 3 view completed INTER[facility] [address], [place], [address], 08/31/2024 11:17:35 Procedure Notes None recorded. Medical Equipment None Reported. Allergies Allergen ID Allergen Name Allergen Category Reaction Reaction Severity Criticality Documentation Date Start Date Code Code System Note Provider Name and Address Organization Details Recorded Time 27293 latex environme nt,medica tion Not available Not available Not available 07/07/20232016 40797 91 RxNorm Aller gyRea ction : 'Skin React ion'; Not Available [facility] 12:45:00 Medications Name Sig Start Date Stop Date Status Note LastModified by Organization Details LastModified Time fluoxetine 40 mg capsule TAKE 1 CAPSULE BY MOUTH EVERY MORNING active Not Available Not Available No t Available amoxicillin 500 mg capsule TAKE 4 CAPSULES BY MOUTH 1 HOUR BEFORE PROCEDURE active Not Available Not Available No t Available acetaminoph en 325 mg tablet TAKE 2 TABLETS BY MOUTH EVERY 6 HOURS FOR FOURTEEN DAYS NEEDED FOR PAIN 08/31 completed Not Available Not Available Not Available atorvastati n 20 mg tablet TAKE 1 TABLET BY MOUTH DAILY IN THE EVENING active Not Available Not Available No t Available lidocaine 4 % topical patch Apply 1 patch every day by topical route for 30 days. 2024 active Not Available Not Available Not Avai lable trazodone 50 mg tablet TAKE 1 TO 3 TABLETS BY MOUTH AT BEDTIME NEEDED FOR SLEEP active Not Available Not Available No t Available metoprolol succinate ER 50 mg tablet,exte nded release 24 hr TAKE 1 TABLET BY MOUTH EVERY DAY, DO NOT BREAK, CRUSH, DISSOLVE OR CHEW 08/31 completed Not Available Not Available Not Available meloxicam 15 mg tablet TAKE 1 TABLET BY MOUTH EVERY DAY active Not Available Not Available No t Available clonazepam 0.5 mg tablet TAKE 1 TO 2 TABLETS BY MOUTH DAILY NEEDED FOR ANXIETY active Not Available Not Available No t Available metoprolol succinate ER 100 mg tablet,exte nded release 24 hr TAKE 1 TABLET BY MOUTH DAILY 08/31 completed Not Available Not Available Not Available gabapentin 400 mg capsule TAKE 1 CAPSULE BY MOUTH DAILY active Not Available Not Available No t Available lorazepam 0.5 mg tablet TAKE 1/2 TO 1 TABLET BY MOUTH DAILY NEEDED FOR SEVERE ANXIETY active Not Available Not Available No t Available amlodipine 10 mg tablet TAKE 1 TABLET BY MOUTH EVERY DAY active Not Available Not Available No t Available cephalexin 500 mg capsule TAKE 1 CAPSULE BY MOUTH FOUR TIMES DAILY FOR 5 DAYS 08/31 completed Not Available Not Available Not Available docusate sodium 100 mg capsule TAKE 1 CAPSULE BY MOUTH TWICE DAILY active Not Available Not Available No t Available omeprazole 20 mg capsule,del ayed release TAKE 1 CAPSULE BY MOUTH DAILY active Not Available Not Available No t Available Banophen 25 mg capsule TAKE ONE CAPSULE BY MOUTH THREE TIMES DAILY NEEDED FOR ALLERGIC REACTION. active Not Available Not Available No t Available ibuprofen 600 mg tablet TAKE 1 TABLET BY MOUTH EVERY 6 HOURS FOR FOURTEEN DAYS. ALTERNATE WITH tylenol active Not Available Not Available No t Available cefuroxime axetil 500 mg tablet active Not Available Not Available No t Available lisinopril 40 mg tablet TAKE 1 TABLET BY MOUTH EVERY DAY active Not Available Not Available No t Available fluticasone propionate 50 mcg/actuati on nasal spray,suspe nsion SHAKE LIQUID AND USE 2 SPRAYS IN EACH NOSTRIL EVERY MORNING active Not Available Not Available No t Available oxycodone 5 mg tablet TAKE 1 TABLET BY MOUTH EVERY 6 HOURS NEEDED FOR PAIN active Not Available Not Available No t Available hydrocortis one 1 % topical cream with perineal applicator APPLY TOPICALLY TO THE AFFECTED AREA TWICE DAILY NEEDED FOR RASH active Not Available Not Available No t Available hydrochloro thiazide 12.5 mg tablet TAKE 1 TABLET BY MOUTH EVERY DAY 08/31 completed Not Available Not Available Not Available diclofenac 1 % topical gel APPLY 1 GRAM TOPICALLY TO AFFECTED AREA(S) THREE OR FOUR TIMES DAILY DIRECTED active Not Available Not Available No t Available blood pressure test kit-large cuff USE TO CHECK BLOOD PRESSURE ONCE DAILY 08/31 completed Not Available Not Available Not Available Artificial Tears (tc480-bdsy omell-glyce rin) 1 %-0.2 %-0.2 % eye drops INSTILL 1 DROP BOTH EYES TWICE DAILY active Not Available Not Available No t Available Trulicity 1.5 mg/0.5 mL subcutaneou s pen injector ADMINISTE R 1.5 MG UNDER THE SKIN EVERY WEEK 07/23 completed Not Available Not Available Not Available Trulicity 0.75 mg/0.5 mL subcutaneou s pen injector ADMINISTE R 0.75 MG UNDER THE SKIN EVERY FRIDAY DIRECTED 07/23 completed Not Available Not Available Not Available FreeStyle Jame 2 Sensor kit USE DIRECTED TO TEST BLOOD SUGAR CHANGE EVERY 14 DAYS active Not Available Not Available No t Available FreeStyle Jame 2 Hurley USE DIRECTED active Not Available Not Available No t Available Mounjaro 5 mg/0.5 mL subcutaneou s pen injector ADMINISTE R 5MG UNDER THE SKIN EVERY WEEK active Not Available Not Available No t Available Mounjaro 2.5 mg/0.5 mL subcutaneou s pen injector INJECT ONE PEN (=2.5MG) SUBCUTANE OUSLY ONCE A WEEK DIRECTED active Not Available Not Available No t Available Ozempic 0.25 mg or 0.5 mg (2 mg/3 mL) subcutaneou s pen injector 08/31 completed Not Available Not Available Not Available Vitals Date Recorded Body weight Body mass index (BMI) Body height Provider Name and Address Organization Details Last Updated DateTime 07/23/2024 34721.63 g 34 kg/m2 154.94 cm Jordana Elise [facility] 07/23/2024 15:24:04 Date Recorded Body height Body mass index (BMI) Body weight Provider Name and Address Organization Details Last Updated DateTime 08/31/2024 155.58 cm 30.7 kg/m2 78014.71 g Emy Pitts [facility] 08/31/2024 11:02:16 Social History Question Answer Notes LastModified by Organizat ion Details LastModified Time Tobacco Smoking Status Never Smoker Emy serrano [facility] 08/31/2024 11:05:25 What Is Your Level Of Alcohol Consumption? None Information not available 08/31/2024 What Is Your Relationship Status? Information not available 08/31/2024 Do You Use Any Illicit Or Recreational Drugs? No Information not available 08/31/2024 Do You Or Have You Ever Used Any Other Forms Of Tobacco Or Nicotine? No Information not available 08/31/2024 Sex: Unknown Functional Status None recorded. Mental Status None recorded. Family History Nothing Reported. Medical History No medical history recorded. Gynecological HistoryNo gynecological history recorded. Obstetrics History GPAL:G 0 P 0 0 0 0 Past Encounters Encounter ID Performer Location Encounter Start Date Encounter Closed Date Diagnosis/Indication Diagnosis SNOMED-CT Code Diagnosis ICD10 Code Diagnosis Note [id number] RAMÍREZ Michaud [address] [place] [address] 12/09/2023 13:52:34 12/31/2023 10:26:53 Knee joint prosthesis present 4475764162 02 Z96.651 History of total knee arthroplasty 0190370819 105 Z96.087 [id number] RAMÍREZ Ryan [address] [place] [address] 07/23/2024 13:48:59 08/12/2024 12:55:47 History of right total knee replacement 5449683770 128293 Z96.651 Pes anseri nus bursitis of right knee 2267261920 643223 M70.51 [id number] MD SYLWIA Braga [address] [place] [address] 08/31/2024 10:51:40 09/06/2024 10:24:56 History of left total knee replacement 1530157568 654187 Z96.652 Health Concerns Section Related Observation LastModified by Organization Detai ls LastModified Time None Recorded Concern Status LastModified by Organization Details LastModified Time None Recorded Advance Directives Directive None Recorded Payers Encounter Date Sequence Insurance Name Policy Number Policy Grant Covered Member ID Grant Member ID Guarantor Name 12/09/2023 1 [facility] - DOS ON OR AFTER 2022 - ONE CARE (MEDICARE REPLACEMENT/ADV ANTAGE - HMO) [place] [id number] Rosie Iverson-Pelaez 07/23/2024 1 [facility] - DOS ON OR AFTER 2022 - ONE CARE (MEDICARE REPLACEMENT/ADV ANTAGE - HMO) Rosie [place] ro [id number] Rosie Iverson-Pelaez 08/31/2024 1 [facility] - DOS ON OR AFTER 2022 - ONE CARE (MEDICARE REPLACEMENT/ADV ANTAGE - HMO) [place] ro [id number] Rosie GonzalesPelaez Notes Date Note Type Note Provider Name and Address Organization Details Recorded Time 12/09/2023 text/html I am seeing the patient today under the supervision of Dr. Mckinnon who was available but who did not see the patient. HPI: Rosie presents to the office for an evaluation of her left knee. She is status post left total knee arthroplasty performed in [place] in 2009. She subsequently developed an infection and underwent a revision in 2010. She has always had stiffness in the knee, but overall has been doing well. Over the past couple of weeks she has developed lateral left knee pain. She denies any trauma. She has been taking Tylenol for her discomfort. Her pain is worse with weightbearing activities. She is here today for treatment recommendations. PMH/PSH/MEDS/ALL/FMH/ SOC HX/ROS are reviewed in detail per my medical intake sheet. General Exam: Vital signs are as noted below Mental status: Alert and lucid. Normal insight, affect and grooming. DIRECTOR OF OCCUPATIONAL THERAPY: Gross motor coordination is intact. No spasticity or clonus noted. EXAMINATION: The patient is well appearing and in no apparent distress. Alert and oriented x3. Gait is antalgic. {{Right Left*}} knee reveals a surgical scar over the anterior knee, otherwise no deformity upon inspection. No joint effusion, edema, erythema, ecchymosis, or lesions. Neurovascularly intact. Tenderness is present over the lateral joint line and distal IT band . ROM is 0-90 degrees. No crepitus noted. Stability intact with anterior, posterior, and varus/valgus stress at both 0 and 30 degrees of flexion. 5/5 strength. Calf/leg compartments soft and compressible. Labs performed at [place] recently reveal a sed rate of 6, CRP 0.3, WBC 8.6. X-rays ordered, obtained and reviewed at [facility] today include 3 views of the left knee. Images reveal revision total knee arthroplasty components to be in good position. There is a lucency below the lateral tibial plate and just proximal to the femoral component anterior flange. Remainder of components are well-fixed. No acute fracture or lesion. IMPRESSION: Left knee pain status post left total knee arthroplasty revision PLAN: I reviewed the x-ray findings with the patient and with Dr. Horner. Although there are lucencies below the lateral tibial plate and anterior femoral component flange, her total knee arthroplasty components are well-fixed given the long revision stems. There is no concern for infection or ligamentous/tendon injury. I suggested that she take an anti-inflammatory over the next couple of weeks. A prescription for meloxicam was sent to her pharmacy. Side effects have been reviewed. If she finds her symptoms or not improving with rest and this medication she will call the office. All questions answered. Oxana Rodriguez PA-C [address] [place] [address] [address], [place], [address], [facility] 12/09/2023 17:08:14 07/23/2024 text/html I am seeing the patient today under the supervision of Dr. Horner who was available but who did not see the patient. HPI:64-year-old female with previous history of right total knee replacement by Dr. Horner on 01/20/2019 presents to the office today for recheck of her right knee. Developed pain over her right knee over the last 4 weeks without any specific inciting events or injuries. Pain primarily anterior medial. Has been utilizing Tylenol as well as oxycodone as needed for pain relief. Increased pain with prolonged ambulatory activities. Denies any instability in the knee. Denies any recent fevers, chills or any other constitutional symptoms. Prior to today's visit patient had labs drawn which were unremarkable. Past family, medical, social history and review of systems has been reviewed, updated and is located in the patient? s chart. Examination: Well-appearing 64-year-old female in no acute distress. She is alert and oriented x 3. She ambulates with an antalgic gait. Uses a cane for ambulatory support. Right knee reveals a well-healed surgical incision. There is no erythema, warmth, ecchymosis, swelling noted. No tenderness over the joint lines. Tenderness over the Pez anserine bursal region. Range of motion of the knee from 0-120 degrees. Knee is stable to valgus and varus stress testing. Knee strength 4/5 against resistance with flexion and extension. Calf is soft and nontender. 3 views of the right knee obtained and independently reviewed in the office today reveal right total knee arthroplasty in good alignment. No evidence of any osteolysis or loosening. Patella tracking centrally. No fracture. Impression:Right total knee pes anserine bursitis Plan:No concerning signs for infection on physical examination or laboratory findings. Discussed diagnosis with patient as well as treatment options including anti-inflammatory medications, physical therapy as well as injections. Patient opted for oral anti-inflammatories today. She was given prescription for meloxicam 15 mg to take once daily in the morning with food. Advised her not to utilize any other anti-inflammatory medications while she is taking this. Also given prescription for topical Voltaren gel to apply to the affected area 3-4 times a day. Encouraged the patient to ice 2 or 3 times per day. Can participate in home stretching program as tolerated. All patient questions and concerns answered today. Will come back as needed. Hernan Banuelos PA-C [address], [place], [address], [facility] 07/23/2024 15:52:38 08/31/2024 text/html History of prese nt illness:Rosie presents today for evaluation for her left knee. To review in brief, I proceed replaced her right knee, her left knee was replaced years ago in [place] and had to be revised one year later. She comes in today and states that she has pain in the left knee that mainly occurs when she is lying down in bed, especially when she is on her left side and her knees are pressed together. The pain is mainly superficial on the surface of the knee.Past family, medical, social history and review of systems has been reviewed and updated, and is located in the patient? s chart. Renato Horner MD [address], [place], [address], [facility] 08/31/2024 12:24:51 OBGyn Episode No OBEpisode recorded.
--- OUTSIDE RECORDS SUMMARY | 2024-09-07 13:34 | XMS_ITS | Encounter Summary ---
Author Organization [facility] Address [address] [place] [address] Phone Care Team Providers Care Poured Concrete Wall Technician Name Role Phone Ahskan Jacobson MD Primary Care Provider [phone] Encounter Details Date Type Department Care Team (Late st Contact Info) Description 01/06/2024 Documentation Only [facility] [place], [address] [place] [address] Charlotte Mehta [address] [place] [address] Social History Tobacco Use Types [...] on filedocumented in this encounter Care Teams Poured Concrete Wall Technician Relationship Specialty Start Date End Date Ashkan Jacobson MD [address] [place] [address] [address] [place], [place] PCP - General 03/09/19 documented as of this encounter
--- OUTSIDE RECORDS SUMMARY | 2024-09-07 13:34 | XMS_ITS | Encounter Summary ---
Author Organization [employer] Address [address] [facility] 7t [place] [address] Care Team Providers Care Legal Support Manager Name Role Phone Ginette Fortune MD Primary Care Provide r Reason for Visit * Reason Onset Date Comments Hospital Follow-up 05/14/2024 Encounter Details Date Type Department Care Team ([facility] Contact Info) Description 05/14/[address] [facility] MEDICINE [address] [place] [address] Ginette Fortune MD [address] [place] [address] Hospital Follow-up Social History Tobacco Use Types [...] from pt requesting a HDF appt. Hospital: [facility] Date of admission: 05/09/2024 Discharge date: 05/13/2024 Diagnosed: Kidney problems *Send message to [place] Clinical Care Coordinators documented in this encounter Plan of Treatment Upcoming Encounters Date Type Department Care Team (Late st Contact Info) Description 09/13/2024 9:00 AM EDT Office Visit [facility] MEDICINE [address] [place] [address] Ginette Fortune MD [address] [place] [address] documented as of this encounter Visit Diagnoses Not on filedocumented in this encounter Additional Health Concerns Assessment Noted Time PHQ-9 Depression Total Score: 0 10/21/19 24 10:02 AM EDT documented as of this encounter Care Teams Legal Support Manager Relationship Specialty Start Date End Date Ginette Fortune MD [address] [place] [address] PCP - General Internal Medicine 10/27/23 documented as of this encounter
--- OUTSIDE RECORDS SUMMARY | 2024-09-07 13:34 | XMS_ITS | Encounter Summary ---
Author Organization [facility] Address [address] [place] [address] Phone Care Team Providers Care Converting Supervisor Name Role Phone Ashkan Jacobson MD Primary Care Provider [phone] Encounter Details Date Type Department Care Team (Late st Contact Info) Description 12/19/2023 Documentation Only [facility] [place], [address] [place] [address] Xochilt Crawford [place] [address] [place] [address] Social History Tobacco Use Types [...] on filedocumented in this encounter Care Teams Converting Supervisor Relationship Specialty Start Date End Date Ashkan Jacobson MD [address] [place] [address] [address] [place], [place] PCP - General 03/09/19 documented as of this encounter
--- OUTSIDE RECORDS SUMMARY | 2024-09-07 13:34 | XMS_ITS | Encounter Summary ---
Author Organization [facility] Address [address] [place] [address] Phone Care Team Providers Care Golf Ball Cover Treater Name Role Phone Ashkan Jacobson MD Primary Care Provider [phone] Encounter Details Date Type Department Care Team (Late st Contact Info) Description 07/21/2023 Documentation Only [facility] [place], [address] [place] [address] Xochilt [place] [address] [place] [address] Social History Tobacco Use Types [...] on filedocumented in this encounter Care Teams Golf Ball Cover Treater Relationship Specialty Start Date End Date Ashkan Jacobson MD [address] [place] [address] [address] [place], [place] PCP - General 03/09/19 documented as of this encounter
== END 2024-09-07 13:27 | disposition home or self-care (01) ==
LOC: HO.ENCR 12:03
PROVIDERS: PCP Internal Medicine; Visit Provider Registered Nurse Diabetes Educator
DX: E11.65 Type 2 diabetes mellitus with hyperglycemia (principal)

== ENCOUNTER → 2024-09-07 12:02 | Outpatient (BNVA) | payer OTHER, SELFPAY | PROVIDERS: PCP Internal Medicine; Visit Provider Registered Nurse Diabetes Educator | DX: E11.65 Type 2 diabetes mellitus with hyperglycemia (principal) | CPT/HCPCS: 99211 ==

== ENCOUNTER 2024-09-14 12:41 | Outpatient (REF) | payer OTHER, SELFPAY ==
--- OUTSIDE RECORDS SUMMARY | 2024-09-14 14:39 | XMS_ITS | Encounter Summary ---
Author Organization [facility] Address [address] [place] [address] Phone Care Team Providers Care Transfer Table Operator Helper Name Role Phone Ashkan Jacobson MD Primary Care Provider [phone] Encounter Details Date Type Department Care Team (Late st Contact Info) Description 04/04/2022 Documentation Only [facility] [place], [address] [place] [address] Macy Giraldo PA Social History [...] on filedocumented in this encounter Care Teams Transfer Table Operator Helper Relationship Specialty Start Date End Date Ashkan Jacobson MD [address] [place] [address] 201 [place], [place] PCP - General 03/09/19 documented as of this encounter
--- OUTSIDE RECORDS SUMMARY | 2024-09-14 14:39 | XMS_ITS | Encounter Summary ---
Author Organization [facility] Address [address] [place] [address] Phone Care Team Providers Care Supervisor Power Reactor Name Role Phone Ashkan Jacobson MD Primary Care Provider [phone] Encounter Details Date Type Department Care Team (Late st Contact Info) Description 03/22/2021 Documentation Only [facility] [place], [address] [place] [address] Macy Giraldo PA Social History [...] filedocumented in this encounter Care Teams Supervisor Power Reactor Relationship Specialty Start Date End Date Ashkan Jacobson MD [address] [place] [address] 201 [place], [place] PCP - General 03/09/19 documented as of this encounter
--- OUTSIDE RECORDS SUMMARY | 2024-09-14 14:39 | XMS_ITS | Encounter Summary ---
Author Organization [facility] Address [address] [place] [address] Phone Care Team Providers Care Co Founder And Chairman Name Role Phone Ashkan Jacobson MD Primary Care Provider [phone] Encounter Details Date Type Department Care Team (Late st Contact Info) Description 06/19/2021 Documentation Only [facility] [place], [address] [place] [address] Macy Giraldo PA Social History [...] on filedocumented in this encounter Care Teams Co Founder And Chairman Relationship Specialty Start Date End Date Ashkan Jacobson MD [address] [place] [address] 201 [place], [place] PCP - General 03/09/19 documented as of this encounter
--- OUTSIDE RECORDS SUMMARY | 2024-09-14 14:40 | XMS_ITS | Encounter Summary ---
Author Organization [facility] Address [address] [place] [address] Phone Care Team Providers Care Timber Sizer Operator Name Role Phone Ashkan Jacobson MD Primary Care Provider Encounter Details Date Type Department Care Team (Late st Contact Info) Description 08/04/2023 Documentation Only [facility] [place], [address] [place] [address] Xochilt [place] [address] [place] [address] Social History Tobacco Use Types [...] filedocumented in this encounter Care Teams Timber Sizer Operator Relationship Specialty Start Date End Date Ashkan Jacobson MD [address] [place] [address] 201 [place], [place] PCP - General 03/09/19 documented as of this encounter
--- OUTSIDE RECORDS SUMMARY | 2024-09-14 14:40 | XMS_ITS | Encounter Summary ---
Author Organization [facility] Address [facility] [place] [address] Care Team Providers Care Sponge Press Operator Name Role Phone Kaley Jacobson MD Primary Care Provider Unavailab le Encounter Details Date Type Department Care Team Description 05/02/2017 Transfer Records Medical Records [address] [place] [id number] Abstract, Provider Social History Tobacco Use Types [...] Kaley Jacobson sent to Carlotta Suarez R.N. Tile Sprayer. documented in this encounter Plan of Treatment Not on file documented as of this encounter Visit Diagnoses Not on filedocumented in this encounter Care Teams Sponge Press Operator Relationship Specialty Start Date End Date Kaley Jacobson MD PCP - General Internal Medicine 03/11/17 documented as of this encounter
--- OUTSIDE RECORDS SUMMARY | 2024-09-14 14:40 | XMS_ITS | Encounter Summary ---
Author Organization [facility] Address [address] [place] [address] Phone Care Team Providers Care Aeronautical Engineering Officer Name Role Phone Ashkan Jacobson MD Primary Care Provider [phone] Encounter Details Date Type Department Care Team (Late st Contact Info) Description 09/28/2021 Documentation Only [facility] [place], [address] [place] [address] Macy Giraldo PA Social History [...] on filedocumented in this encounter Care Teams Aeronautical Engineering Officer Relationship Specialty Start Date End Date Ashkan Jacobson MD [address] [place] [address] 201 [place], [place] PCP - General 03/09/19 documented as of this encounter
--- OUTSIDE RECORDS SUMMARY | 2024-09-14 14:40 | XMS_ITS | Encounter Summary ---
Author Organization [facility] Address [address] [place] [address] Phone Care Team Providers Care Virtual Office Assistant Name Role Phone Ashkan Jacobson MD Primary Care Provider [phone] Encounter Details Date Type Department Care Team (Late st Contact Info) Description 02/17/2024 Documentation Only [facility] [place], [address] [place] [address] Xochilt [place] [address] [place] [address] Social History Tobacco Use Types [...] on filedocumented in this encounter Care Teams Virtual Office Assistant Relationship Specialty Start Date End Date Ashkan Jacobson MD [address] [place] [address] 201 [place], [place] PCP - General 03/09/19 documented as of this encounter
--- OUTSIDE RECORDS SUMMARY | 2024-09-14 14:40 | XMS_ITS | Encounter Summary ---
Author Organization [facility] Address [address] [place] [address] Phone Care Team Providers Care Bristle Machine Operator Name Role Phone Ashkan Jacobson MD Primary Care Provider [phone] Encounter Details Date Type Department Care Team (Late st Contact Info) Description 07/30/2023 Documentation Only [facility] [place], [address] [place] [address] Xochilt [place] [address] [place] [address] Social History Tobacco Use Types [...] Date End Date Ashkan Jacobson MD [address] [place] [address] 201 [place], [place] PCP - General 03/09/19 documented as of this encounter
--- OUTSIDE RECORDS SUMMARY | 2024-09-14 14:40 | XMS_ITS | Encounter Summary ---
Author Organization [facility] Address [address] [place] [address] Phone Care Team Providers Care Manager Transport Name Role Phone Ashkan Jacobson MD Primary Care Provider [phone] Encounter Details Date Type Department Care Team (Late st Contact Info) Description 02/04/2024 Documentation Only [facility] [place], [address] [place] [address] Xochilt [place] [address] [place] [address] Social History Tobacco Use Types [...] filedocumented in this encounter Care Teams Manager Transport Relationship Specialty Start Date End Date Ashkan Jacobson MD [address] [place] [address] 201 [place], [place] PCP - General 03/09/19 documented as of this encounter
--- OUTSIDE RECORDS SUMMARY | 2024-09-14 14:40 | XMS_ITS | Encounter Summary ---
Author Organization [facility] Address [address] [place] [address] Phone Care Team Providers Care Test Cell Technician Name Role Phone Ashkan Jacobson MD Primary Care Provider [phone] Encounter Details Date Type Department Care Team (Late st Contact Info) Description 07/21/2023 Documentation Only [facility] [place], [address] [place] [address] Xochilt [place] [address] [place] [address] Social History Tobacco Use Types [...] on filedocumented in this encounter Care Teams Test Cell Technician Relationship Specialty Start Date End Date Ashkan Jacobson MD [address] [place] [address] 201 [place], [place] PCP - General 03/09/19 documented as of this encounter
--- OUTSIDE RECORDS SUMMARY | 2024-09-14 14:40 | XMS_ITS | Clinical Summary ---
Author Organization [facility] [place], Address [address] [place] [address] [place] [address] Phone Care Team Providers Care Paraplanner Name Role Phone Ashkan Jacobson MD Primary Care Provider [phone] Allergies Active Allergy Reactions Criticality Noted Date [...] AM EDT) Hemoglobin A1C 6.7(H) (4.0-5.6) % [facility] Comment: MONITORING: In known diabetic patients, hemoglobin A1c targets should be discussed with health care provider. DIAGNOSTIC USE: ??The [place] Diabetes Association (ADA) and the World Health [...] Supplement 1 Testing performed or reported by [facility], a Service of [facility], [address] [place] [address] Familia Britton MD, Foreign Correspondent [facility]# [id number] Blood (Blood, Venous) 02/05/2023 10:48 AM EDT 02/05/2023 10:49 AM EDT Godfrey Marcum MD LAB BLOOD ORDERABLES Final Re sult [facility] from Last 3 Months or Most Recently Relevant to Health Maintenance Insurance [facility] Care Dual SNP ([id number]) [place] [address] Care Teams Paraplanner Relationship Specialty Start Date End Date Ashkan Jacobson MD [address] [place] [address] PCP - General 03/09/19
--- OUTSIDE RECORDS SUMMARY | 2024-09-14 14:40 | XMS_ITS | Encounter Summary ---
Author Organization [facility] Address [address] [place] [address] Phone Care Team Providers Care Laborer Concrete Plant Name Role Phone Ashkan Jacobson MD Primary Care Provider [phone] Encounter Details Date Type Department Care Team (Late st Contact Info) Description 09/24/2022 Documentation Only [facility] [place], [address] [place] [address] Godfrey Marcum MD [address] [facility] [place] [address] Social History Tobacco Use Types [...] on filedocumented in this encounter Care Teams Laborer Concrete Plant Relationship Specialty Start Date End Date Ashkan Jacobson MD [address] [place] [address] 201 [place], [place] PCP - General 03/09/19 documented as of this encounter
--- OUTSIDE RECORDS SUMMARY | 2024-09-14 14:40 | XMS_ITS | Encounter Summary ---
Author Organization [facility] Address [address] [place] [address] Phone Care Team Providers Care Digital Media Analyst Name Role Phone Ashkan Jacobson MD Primary Care Provider [phone] Encounter Details Date Type Department Care Team (Late st Contact Info) Description 12/18/2021 Documentation Only [facility] [place], [address] [place] [address] [...] on filedocumented in this encounter Care Teams Digital Media Analyst Relationship Specialty Start Date End Date Ashkan Jacobson MD [address] [place] [address] 201 [place], [place] PCP - General 03/09/19 documented as of this encounter
--- OUTSIDE RECORDS SUMMARY | 2024-09-14 14:40 | XMS_ITS | Encounter Summary ---
Author Organization [facility] Address [address] [place] [address] Phone Care Team Providers Care Account Services Analyst Name Role Phone Ashkan Jacobson MD Primary Care Provider [phone] Encounter Details Date Type Department Care Team (Late st Contact Info) Description 01/06/2024 Documentation Only [facility] [place], [address] [place] [address] Charlotte Mehta [address] [place] [address] Social History Tobacco Use Types [...] on filedocumented in this encounter Care Teams Account Services Analyst Relationship Specialty Start Date End Date Ashkan Jacobson MD [address] [place] [address] 201 [place], [place] PCP - General 03/09/19 documented as of this encounter
--- OUTSIDE RECORDS SUMMARY | 2024-09-14 14:40 | XMS_ITS | Encounter Summary ---
Author Organization [facility] Address [address] [place] [address] Phone Care Team Providers Care Chemical Laboratory Scientist Name Role Phone Ashkan Jacobson MD Primary Care Provider [phone] Encounter Details Date Type Department Care Team (Late st Contact Info) Description 08/21/2023 Documentation Only [facility] [place], [address] [place] [address] Xochilt Crawford [place] [address] [place] [address] Social History Tobacco Use Types [...] on filedocumented in this encounter Care Teams Chemical Laboratory Scientist Relationship Specialty Start Date End Date Ashkan Jacobson MD [address] [place] [address] 201 [place], [place] PCP - General 03/09/19 documented as of this encounter
--- OUTSIDE RECORDS SUMMARY | 2024-09-14 14:40 | XMS_ITS | Clinical Summary ---
Author Organization [facility] Address [address] [place] [address] Care Team Providers Care Charrer Name Role Phone Kaley Jacobson MD Primary Care Provider [phone] Surgical History Surgery Date Site/Laterality Comments TOTAL [...] age to complete this topic Care Teams Charrer Relationship Specialty Start Date End Date Kaley Jacobson MD [address] [place] [phone] PCP - General Internal Medicine 03/11/17
--- OUTSIDE RECORDS SUMMARY | 2024-09-14 14:40 | XMS_ITS | Encounter Summary ---
Author Organization [facility] Address [address] [place] [address] Phone Care Team Providers Care Braid Pattern Setter Name Role Phone Ashkan Jacobson MD Primary Care Provider [phone] Encounter Details Date Type Department Care Team (Late st Contact Info) Description 09/18/2021 Documentation Only [facility] [place], [address] [place] [address] Macy Giraldo PA Social History [...] on filedocumented in this encounter Care Teams Braid Pattern Setter Relationship Specialty Start Date End Date Ashkan Jacobson MD [address] [place] [address] 201 [place], [place] PCP - General 03/09/19 documented as of this encounter
--- OUTSIDE RECORDS SUMMARY | 2024-09-14 14:40 | XMS_ITS | Encounter Summary ---
Author Organization [facility] Address [facility] [place] [address] Care Team Providers Care Commodity Broker Name Role Phone Kaley Jacobson MD Primary Care Provider Unavailab le Encounter Details Date Type Department Care Team Description 03/14/2017 Release of Information Medical Records [address] [place] [address] Abstract, Provider Social History Tobacco Use Types [...] on filedocumented in this encounter Care Teams Commodity Broker Relationship Specialty Start Date End Date Kaley Jacobson MD PCP - General Internal Medicine 03/11/17 documented as of this encounter
--- OUTSIDE RECORDS SUMMARY | 2024-09-14 14:40 | XMS_ITS | Encounter Summary ---
Author Organization [facility] Address [address] [place] [address] Phone Care Team Providers Care Roll Forming Machine Set Up Operator Name Role Phone Ashkan Jacobson MD Primary Care Provider [phone] Encounter Details Date Type Department Care Team (Late st Contact Info) Description 12/19/2023 Documentation Only [facility] [place], [address] [place] [address] Xochilt Crawford [place] [address] [place] [address] Social History Tobacco Use Types [...] on filedocumented in this encounter Care Teams Roll Forming Machine Set Up Operator Relationship Specialty Start Date End Date Ashkan Jacobson MD [address] [place] [address] 201 [place], [place] PCP - General 03/09/19 documented as of this encounter
--- OUTSIDE RECORDS SUMMARY | 2024-09-14 14:40 | XMS_ITS | Encounter Summary ---
Author Organization [facility] Address [address] [place] [address] Phone Care Team Providers Care Orthotics Technician Name Role Phone Ashkan Jacobson MD Primary Care Provider [phone] Encounter Details Date Type Department Care Team (Late st Contact Info) Description 08/28/2023 Documentation Only [facility] [place], [address] [place] [address] Xochilt Crawford [place] [address] [place] [address] Social History Tobacco Use Types [...] on filedocumented in this encounter Care Teams Orthotics Technician Relationship Specialty Start Date End Date Ashkan Jacobson MD [address] [place] [address] 201 [place], [place] PCP - General 03/09/19 documented as of this encounter
--- OUTSIDE RECORDS SUMMARY | 2024-09-14 14:40 | XMS_ITS | Encounter Summary ---
Author Organization [facility] Address [address] [place] [address] Phone Care Team Providers Care Vocational Coordinator Name Role Phone Ashkan Jacobson MD Primary Care Provider [phone] Encounter Details Date Type Department Care Team (Late st Contact Info) Description 07/23/2023 Documentation Only [facility] [place], [address] [place] [address] Xochilt Crawford [place] [address] [place] [address] Social History Tobacco Use Types [...] on filedocumented in this encounter Care Teams Vocational Coordinator Relationship Specialty Start Date End Date Ashkan Jacobson MD [address] [place] [address] 201 [place], [place] PCP - General 03/09/19 documented as of this encounter
[2024-09-14 15:04] LABS: Anion Gap 15 (12-20); Blood Urea Nitrogen 22 mg/dL (9-16); Calcium 9.7 mg/dL (8.4-10.2); Carbon Dioxide 27 mmol/L (22-29); Chloride 106 mmol/L (96-108); Estimated Glomerular Filt Rate 44; Glucose Random 93 mg/dL (60-115); Potassium 4.2 mmol/L (3.3-5.1); Sodium 144 mmol/L (135-145)
[2024-09-14 15:06] LABS: Cholesterol 227 mg/dL (<200); HDL Cholesterol 57 mg/dL (>40); LDL Cholesterol Calculated 136 mg/dL (<100); Triglycerides 172 mg/dL (<150)
[2024-09-14 15:20] LABS: Free T4 (Free Thyroxine) 0.87 ng/dL (0.71-1.85); Thyroid Stimulating Hormone 0.19 uIU/mL (0.32-4.0)
[2024-09-14 15:21] LABS: TSH reflex Free T4 0.19 uIU/mL (0.32-4.0)
== END 2024-09-14 12:42 | disposition home or self-care (01) ==
LOC: HO.LAB 12:41
PROVIDERS: Student in an Organized Health Care Education/Training Program; PCP Internal Medicine
DX: R00.2 Palpitations (principal); E04.2 Nontoxic multinodular goiter; E78.5 Hyperlipidemia, unspecified; E11.649 Type 2 diabetes mellitus with hypoglycemia without coma
CPT/HCPCS: 36415; 80048; 80061; 84439; 84443; 99212

== ENCOUNTER 2024-09-14 12:41 | Outpatient (AMB) | payer OTHER, SELFPAY ==
[2024-09-14 12:50] VITALS: BP 124/72; PULSE 73; BMI 30.9
--- NOTE | 2024-09-14 12:50 | A.OFFVIS_ITS ---
Vital Signs 09/14/24 12:50 Height 5 ft 1 in Weight 163 lb 9.328 oz BMI 30.9 BP 124/72 Blood Pressure Location Rt brachial Position Sitting Pulse 73 Pulse Source Pulse Oximeter Intake Visit Reasons: 3 mth/f/up CTA Research Kennel Supervisor Required: Yes Research Kennel Supervisor Language: Machine Package Sealer Name: voice [email or web address] [id number] Chiropractic Teacher: Chiropractic Teacher Present Allergies latex [LATEX] Allergy (Mild, Verified 09/14/24 12:52) RASH metformin Adverse Reaction (Verified 09/14/24 12:52) Unknown Medication List - Last Reconciled 09/14/24 by Steven Franz NP amlodipine 10 mg PO DAILY atorvastatin 20 mg PO QPM blood sugar diagnostic (OneTouch Ultra Test strips) As directed 3 times a day blood sugar diagnostic As directed blood-glucose meter (EnTouch ControlsTouch Ultra2 Meter) As directed docusate sodium 100 mg PO BID flash glucose sensor (FreeStyle Jame 2 Sensor kit) USE DIRECTED TO TEST BLOOD SUGAR. CHANGE EVERY 10 DAYS fluoxetine 40 mg PO DAILY fluticasone propionate 50 mcg/actuation 1 spray intranasal DAILY PRN FreeStyle Jame 2 [place] (flash glucose scanning reader) As directed NS FreeStyle Jame 3 Plus Sensor (blood-glucose sensor) every 15 days NS FreeStyle Jame 3 [place] (blood-glucose,head host/hostess,cont) As directed NS hydrochlorothiazide 12.5 mg PO DAILY lancets As directed lisinopril 40 mg PO DAILY Mounjaro (tirzepatide) 2.5 mg (0.5 mL) subcut QWEEK NS oxycodone 5 mg PO Q6H PRN pen needle, diabetic (Comfort EZ Pen [place]) As directed injects once a day sennosides (senna) 8.6 mg PO DAILY trazodone 50 - 150 mg PO BEDTIME PRN HPI Comments Details: This is a 64-year-old female patient coming in for a follow-up visit, previously evaluated for chest discomfort and blood pressure management. She subsequently underwent a coronary CTA. Patient is accompanied by her and is Slovenian-speaking for which a virtual oven dauber was used throughout the visit. Patient reports a history of AFib and states that she underwent an ablation procedure in 2013 in [place], although no records are currently available to confirm the details. At that time, she states that she was started on Eliquis however, upon relocating to [place], Eliquis was discontinued due to d ifficulty establishing care with a PCP. She has not been on any anticoagulation since. Approximately a month ago, the patient states that she presented to the emergency room for palpitations but left without being seen due to long wait times. Since then, patient reports experiencing intermittent palpitations accompanied by occasional shortness of breath, dizziness, and the sensation of her heart throbbing in her throat. Patient denies any exertional chest pain, orthopnea, PND, leg edema, presyncope, or syncope. She also notes that her metoprolol was recently discontinued by her PCP for questions of constipation. She reports compliance with her medications otherwise. [facility] Medical History Anxiety Depression GERD (gastroesophageal reflux disease) COVID-19 vaccine series completed Tachycardia Toxic multinodul goiter Chronic renal insufficiency Nephrolithiasis Cyst, kidney, acquired Diabetic neuropathy BMI 34.0-34.9,adult BMI 35.0-35.9,adult BMI 36.0-36.9,adult Pre-op evaluation B12 deficiency Obesity (BMI 30-39.9) Non-toxic multinodular goiter Dyslipidemia Diabetic 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 with type 2 diabetes mellitus MCC (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 insulin Distal radius fracture, right HTN (hypertension) Chronic kidney disease Diabetes type 2, uncontrolled Surgical History History of abdominoplasty History of surgery S/P fine needle aspiration S/P laparoscopic sleeve gastrectomy History of esophagogastroduodenoscopy (EGD) H/O colonoscopy Hx of biopsy History of partial hysterectomy History of total right knee replacement History of total left knee replacement (~2010) Hx of cholecystectomy History of section History of carpal tunnel release (~2017) Family History Father Hypertension Diabetes History of kidney cancer Mother Diabetes Hypertension Heart disease Brother Hypertension Diabetes Brother No problems noted. Son Hypertension Prediabetes Heart disease Daughter Prediabetes Social History Household Members: Spouse Housing: Apartment Are you a primary child care supervisor to a significant other at home: No Do you presently have visiting nurse or other home services: No Alcohol intake: never Patient Tobacco Use Status: Never used Tobacco service: No Physical Exam Vital Signs: Last Vital Signs Pulse 73 09/14/24 12:50 BP 124/72 09/14/24 12:50 BMI result Body Mass Index 30.9 Const General: cooperative, healthy appearing, comfortable and no acute distress Orientation/consciousness: patient oriented x3 HEENT Head: Yes normal to inspection Neck Neck: Yes normal visual inspection, Yes trachea midline and Yes supple Chest Chest palpation & inspection: normal inspection of the chest Resp Effort & Inspection: normal respiratory effort Auscultation: clear to auscultation bilaterally, no crackles, no rales, no rhonchi and no wheezes Cardio Jugular venous distension: no JVD Palpation: normal PMI Rate: regular rate Rhythm: regular rhythm Heart sounds: S1 normal heart sound present, S2 normal heart sound present, no click, no gallops, no murmurs and no rubs Peripheral pulses: Peripheral pulses 2+ throughout GI Inspection: Yes normal to inspection Palpation (GI): Soft to palpation Auscultation: normal bowel sounds Skin General skin exam: no rashes or lesions noted Neuro General: patient oriented x3 Extrem General: Yes normal to inspection, No no pedal edema and No calf tenderness Psych Appearance: grossly normal Mental Status: mental status grossly normal Speech and movement: Normal speech and movement present Assessment & Plan Assessment & Plan (1) Heart palpitations: Code(s): R00.2 - Palpitations Category: Medical Plan: 08/12/2024- patient underwent a coronary CTA for complaints of chest discomfort that showed mild stenosis in the proximal and mid LAD, scattered and mixed noncalcified disease throughout the descending thoracic aorta, and less than 6 mm pulmonary nodules. Patient was subsequently started on atorvastatin for mild coronary artery disease on the coronary CTA. We will repeat lipid panel in 3 months to assess its response. Patient reports shortness of breath and dizziness associated with intermittent palpitations. With ? History of AFib and prior ablation in 2013 for which the records are unavailable at this time; we will try and retrieve prior medical records relat to AFib diagnosis. We will also get a 7 day Holter monitor to assess for arrhythmia. We will also check labs for possible contributing factors including electrolyte imbalance and thyroid dysfunction. In regards to the pulmonary nodules noted on a imaging, we will forward report to PCP's office for further evaluation and appropriate follow-up. Further treatment based on findings. (2) HTN (hypertension): Code(s): I10 - Essential (primary) hypertension Category: Medical Plan: Blood pressure is well-controlled. Continue current regimen. Advised monitoring blood pressures at home with an ideal goal less than 130/80. (3) Dyslipidemia: Code(s): E78.5 - Hyperlipidemia, unspecified Category: Medical Plan: LDL goal less than 70. Continue statin therapy. (4) Diabetes mellitus: Code(s): E11.9 - Type 2 diabetes mellitus without complications Category: Medical Qualifiers: Diabetes mellitus type: type 2 Diabetes mellitus long term care administrator insulin use: without longterm use Diabetes mellitus complication status: with hypoglycemia Diabetes mellitus complication detail: without coma Qualified Code(s): E11.64 9 - Type 2 diabetes mellitus with hypoglycemia without coma Plan: Continue diabetes management with an A1c goal less than 7%. Advised heart healthy diet, regular exercise, avoiding stimulants including caffeinated beverages and alcohol, stress medication strategies, med compliance, and aggressive management of vascular risk factors. We will follow up in 6 weeks. In the interim, patient will call the office with any concerns or change in symptoms. This note was generated using voice recognition software. While every effort has been made to ensure accuracy and proper music ministries director, there may be occasional errors that could affect the content or meaning of the described symptoms. Orders: Orders Basic Metabolic Panel Today R00.2 - Palpitations CA echo transthoracic complete Today R00.2 - Palpitations ECG 7 day holter monitor Today R00.2 - Palpitations TSH reflex Free T4 Today R00.2 - Palpitations Coding Level of Care Code Est Pt Level 4 (33293) Complex EM visit Add On G2211 Diagnoses Heart palpitations R00.2 HTN (hypertension) I10 Dyslipidemia E78.5 Type 2 diabetes mellitus with hypoglycemia without coma, without long-term current use of insulin E11.649 Diabetes mellitus type: type 2 Diabetes mellitus longterm insulin use: without long term care administrator use Diabetes mellitus complication status: with hypoglycemia Diabetes mellitus complication detail: without coma Time Spent (min) 35 Comment Time spent in reviewing the chart, test results, assessment, counseling and documentation.
--- OUTSIDE RECORDS SUMMARY | 2024-09-14 13:43 | XMS_ITS | Encounter Summary ---
Author Organization [employer] [facility] Address [address] [address] Care Team Providers Care Second Grade Teacher Name Role Phone Ginette Fortune MD Primary Care Provide r Reason for Referral * Consultation (Routine) - Authorized Specialty Diagnoses / Procedures Referred By Eula winston Referred To Contact Orthopaedic Surgery Diagnoses Acute pain of left knee Drea Monroy MD [address] [place] [address] Phone: tel: fax: [facility] [address] [place] [address] [place] [address] Phone: tel: fax: Referral ID Status Reason Start Date Expiration Date Visits Requested Visits Authorized [id number] Authorized Specialty Services Required 11/14/2023 11/13/2024 1 1 Encounter Details Date Type Department Care Team (Late st Contact Info) Description 11/14/2023 Orders Only [facility] [address] [place], [place] [id number] Drea Monroy MD [address] [place], [place] [phone] Acute pain of left knee (Primary Dx) [...] Care Team (Late st Contact Info) Description 12/16/2024 9:15 AM EDT Office Visit [facility] [address] [place] [address] Ginette Fortune MD [address] [place] [address] Scheduled Referrals Name Type Priority Associated Diagnoses [...] documented as of this encounter Care Teams Second Grade Teacher Relationship Specialty Start Date End Date Ginette Fortune MD [address] [place] [address] PCP - General Internal Medicine 10/27/23 documented as of this encounter
--- OUTSIDE RECORDS SUMMARY | 2024-09-14 13:43 | XMS_ITS | Encounter Summary ---
Author Organization [employer] Address [address] [facility] 7t [place] [address] Care Team Providers Care Java Performance Engineer Name Role Phone Ginette Fortune MD Primary Care Provide r Encounter Details Date Type Department Care Team (Latest Contact Info) Description 09/13/2024 Travel Social History Tobacco Use Types Packs/Day [...] Description 12/16/2024 9:15 AM EDT Office Visit [facility] MEDICINE [address] [place] [address] Ginette Fortune MD [address] [place] [address] documented as of this encounter Visit Diagnoses Not on filedocumented in this encounter Additional Health Concerns Assessment Noted Time PHQ-9 Depression Total Score: 0 10/21/19 10:02 AM EDT documented as of this encounter Care Teams Java Performance Engineer Relationship Specialty Start Date End Date Ginette Fortune MD [address] [place] [address] PCP - General Internal Medicine 10/27/23 documented as of this encounter
--- OUTSIDE RECORDS SUMMARY | 2024-09-14 13:43 | XMS_ITS | Encounter Summary ---
Author Organization [facility] Address [address] [place] [address] Phone Care Team Providers Care Senior Net Web Developer Name Role Phone Ashkan Jacobson MD Primary Care Provider [phone] Encounter Details Date Type Department Care Team (Late st Contact Info) Description 06/19/2021 Documentation Only [facility] [place], [address] [place] [address] Macy Giraldo PA Social History [...] filedocumented in this encounter Care Teams Senior Net Web Developer Relationship Specialty Start Date End Date Ashkan Jacobson MD [address] [place] [address] [address] [place], [place] PCP - General 03/09/19 documented as of this encounter
--- OUTSIDE RECORDS SUMMARY | 2024-09-14 13:43 | XMS_ITS | Continuity of Care Document ---
Author Organization [facility] Address [address] [place] [address] [address] [place] [address]- Care Team Providers Care Ground Crewman Mission Support Name Role Phone Mateo Freeman MD, Ginette Carty Primary Care Physici an Encounter [facility] [place](s): 08/13/24 - 09/12/24 [facility] [address] [address] Attending Physician: AdmLive harper Admitting [...] Maintenance, 07/05/20 1:44:00 PM EST, [facility], 154.9, cm, 01/26/20 13:53:00 EDT, Height, 83.9, kg, 01/20/19 5:07:00 EDT, Dry Weight Start Date: 07/05/20 Status: Ordered Quantity: 12.0 Unit: tablet Repeat number: 3 amLODIPine 10 mg oral tablet 1 tablet, By Mouth, Daily, # 90 tablet, 1 Refills, Maintenance, 04/15/23 7:30:00 PM EST, [facility] #[id number], 155, cm, 04/04/23 11:33:00 EST, Height Start Date: 04/15/23 Status: Ordered Quantity: 90.0 Unit: tablet Repeat number: 2 D 1000 IU oral tablet See Instructions, TAKE 1 TABLET BY MOUTH ONCE A DAY, # 90 tablet, 1 Refills, Maintenance, [facility], 154.9, cm, 01/26/20 13:53:00 EDT, Height, 83.9, kg, 01/20/19 5:07:00 EDT, Dry Weight Start Date: 08/07/20 Status: Ordered Quantity: 90.0 Unit: tablet Repeat number: 2 FLUoxetine 20 mg oral capsule 1, capsule, By Mouth, Daily, # 180 capsule, Refills 1, Tot. Refills 0, Maintenance, 08/24/20 7:16:00AM EDT, Route to Pharmacy Electronically, [facility], 154.9, cm, 01/26/20 13:53:00 EDT, Height, 83.9, kg, 01/20/19 5:07:00 EDT, Dry Weight Start Date: 08/24/20 Status: Ordered Quantity: 180.0 Unit: capsule Repeat number: 1 fluticasone 50 mcg/inh nasal spray See Instructions, SHAKE LIQUID AND USE 2 SPRAYS IN EACH NOSTRIL EVERY MORNING, # 48 Gm, 3 Refills, 04/15/23 7:29:00 PM EST, [facility] #[id number], 30, SHAKE LIQUID AND USE 2 SPRAYS IN EACH NOSTRIL EVERY MORNING, 155, cm, 04/04/23 11:33:00 EST, Height Start Date: 04/15/23 Status: Ordered Quantity: 48.0 Unit: g Repeat number: 4 gabapentin 400 mg oral capsule 1, capsule, By Mouth, Daily at bedtime, # 90 capsule, Refills 1, Tot. Refills 1, Maintenance, 05/22/21 2:58:00 PM EST, Route to Pharmacy Electronically, [facility] #[id number], 154.9, cm, 04/04/21 10:55:00 EST, Height Start Date: 05/22/21 Status: Ordered Quantity: 90.0 Unit: capsule Repeat number: 2 lisinopril 40 mg oral tablet See Instructions, TAKE 1 TABLET BY MOUTH ONCE A DAY, # 90 tablet, 0 [facility], 154.9, cm, 09/06/20 14:25:00 EDT, Height, 83.9, [...] 2:22:00 PM EDT, Route to Pharmacy Electronically, [facility],Partial fill upon patient request if the [...] Replace Required Details, Route to Pharmacy Electronically, [facility], 154.9, cm, 01/26/20 13:53:00 EDT, Height, [...] Team Personnel Name: Ginette Fortune MD Position: [facility] Outreach Member Role: PCP Address: [address] [place] [address]- Telecom: Name: Jeanna Blancas Position: [facility] Outreach Member Role: Lifetime Consulting Physician Name: Marielena RN, Rocio Position: [facility] SN RN Member Role: Primary Care Nurse Name: Ruben Prather RN Position: [facility] RN Member Role: Primary Care Nurse Name: Lilia Temple Position: [facility] Outreach Member Role: Lifetime Consulting Physician Name: Tony Dsouza MD Position: [facility] Physician (General Medicine) Member Role: Lifetime Consulting Physician Address: [address] [place] [address]- Telecom: Name: Eva Covarrubias Position: [facility] Outreach Member Role: Lifetime Consulting Physician Care Team Related Persons Name: MADIE JACKSON Insurance Providers Guarantor name: VIVI JACKSON [facility] Health Plan Information #: 1 Payer: [facility] [employer] Member Number: NA Policy Number: NA Group Number: NA
--- OUTSIDE RECORDS SUMMARY | 2024-09-14 13:43 | XMS_ITS | Clinical Summary ---
Author Organization [employer] [facility] Address [address] [place] [address] Care Team Providers Care Transportation Program Director Name Role Phone Kaley Jacobson MD Primary Care Provider [phone] Surgical History Surgery Date Site/Laterality Comments TOTAL KNEE ARTHROPLASTY 2009 PROCEDURE: UT ARTHRP KNE CONDYLE&PLATU MEDIAL&LAT COMPARTMENTS CHOLECYSTECTOMY PROCEDURE: UT LAPAROSCOPY SURG CHOLECYSTECTOMY SECTION PROCEDURE: HISTORICAL OTHER [...] Continued pain 03/2017, seeking 2nd opinion at [facility] History of CVA (cerebrovascu lar accident) [...] age to complete this topic Care Teams Transportation Program Director Relationship Specialty Start Date End Date Kaley Jacobson MD [address] [place] [phone] PCP - General Internal Medicine 03/11/17
--- OUTSIDE RECORDS SUMMARY | 2024-09-14 13:43 | XMS_ITS | Encounter Summary ---
Author Organization [employer] Address [address] [place] [address] Care Team Providers Care Loading Unit Operator Powder Charging Name Role Phone Ginette Fortune MD Primary Care Provide r Reason for Referral * Consultation (Routine) - Authorized Specialty Diagnoses / Procedures Referred By Eula winston Referred To Contact Orthopaedic Surgery Diagnoses Chronic elbow pain, right Ginette Fortune MD [address] [place] [address] Phone: tel: fax: [facility] [place] [facility] [address] [place] [address] Phone: tel: Referral ID Status Reason Start Date Expiration Date Visits Requested Visits Authorized [id number] Authorized Specialty Services Required 09/13/2024 09/13/2025 1 1 Encounter Details Date Type Department Care Team (Late st Contact Info) Description 09/13/2024 9:00 AM EDT Office Visit [facility] MED[facility]INE [address] [place] [address] Ginette Fortune MD [address] [place] [address] Type 2 diabetes mellitus with stage 3 chronic kidney disease, without long-term current use of insulin, unspecified whether stage 3a or 3b CKD (CMS/HCC) (Primary Dx); Resistant hypertension; Chronic elbow pain, right Social History Tobacco Use Types Packs/Day Years [...] t he electric, gas, oil or water [employer] threatened to shut off services in your [...] PM EDT documented as of this encounter Last Filed Vital Signs Vital Sign Reading Time Taken Comments Blood Pressure 142/90 09/13/2024 9:09 AM EDT Pulse 72 09/13/2024 9:09 AM EDT Temperature 36.3 ??C (97.4 ??F) 09/13/2024 9:09 AM ED T Respiratory Rate 16 09/13/2024 9:09 AM EDT Oxygen Saturation 98% 09/13/2024 9:09 AM EDT Inhaled Oxygen Concentration - - Weight 75.2 kg (165 lb 12.8 oz) 09/13/2024 9:09 AM EDT Height 154.9 cm (5' 1 ) 09/13/2024 9:09 AM EDT Body Mass Index 31.33 09/13/2024 9:09 AM EDT documented in this encounter Progress Notes * Ginette Freeman MD - 09/13/2024 9:00 AM EDT SUBJECTIVE: Rosie Parisi is a 64 y.o. year old female who presents for Follow up . Acute Concerns: Patient reports she continues to have same problems with her urinary system, reports this has been happening since she was a child, patient is being followed by urologist and was offered to her procedure with a stent but patient declines and she will have some more workup to be done Patient reports she ran out about a month ago from her hydrochlorothiazide and she has not been taking it, she also has not been taking metoprolol because she states that this medication makes her constipated Today patient complained of pain on her right elbow pain this is happening for some time now would like to be seen by specialist for this Social History Social History Narrative Not on file Patient Active Problem List Diagnosis Type 2 diabetes mellitus, without long-term current use of insulin ([facility]) Primary hypertension Chronic pain of left knee Depression with anxiety S/P bariatric surgery Acquired hypothyroidism Healthcare maintenance 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 Review of Systems Constitutional: Negative. HENT: Negative. Respiratory: Negative. Cardiovascular: Negative. Musculoskeletal: Positive for arthralgias and myalgias. OBJECTIVE: Vitals: 09/13/24 0909 BP: (!) 142/90 BP Location: Left arm Patient Position: Sitting BP Cuff Size: Adult Pulse: 72 Resp: 16 Temp: 97.4 ??F (36.3 ??C) TempSrc: Oral SpO2: 98% Weight: 165 lb 12.8 oz (75.2 kg) Height: 5' 1 (1.549 m) Physical Exam Constitutional: Appearance: Normal appearance. Cardiovascular: Rate and Rhythm: Normal rate. Pulmonary: Effort: Pulmonary effort is normal. Breath sounds: Normal breath sounds. Abdominal: General: Abdomen is flat. Palpations: Abdomen is soft. Musculoskeletal: Right elbow: Decreased range of motion. Tenderness present. Right lower leg: No edema. Left lower leg: No edema. Neurological: Mental Status: She is alert. Follow Up: No follow-ups on file. Current Outpatient Medications on File Prior to Visit Medication Sig Dispense Refill amLODIPine (Norvasc) 10 MG tablet Take 1 tablet (10 mg) by mouth Once per day. 90 tablet 3 Artificial Tears 0.2-0.2-1 % solution INSTILL 1 DROP BOTH EYES TWICE DAILY Blood Pressure Monitoring (Blood Pressure Cuff) misc 1 each Once daily. 1 each 0 clonazePAM (KlonoPIN) 0.5 MG tablet Take 1-2 tablets by mouth if needed each day for anxiety. Continuous Glucose Youth Director (FreeStyle Jame 2 [place]) device Continuous Glucose Sensor (FreeStyle Jame 2 Sensor) mis Apply 1 sensor every 14 days 2 each 11 Diclofenac Sodium 1 % gel To apply to the affected area 3 times a day 100 g 0 docusate sodium (Colace) 100 MG capsule Take 1 capsule by mouth 2 times daily. FLUoxetine (PROzac) 40 MG capsule Take 1 capsule by mouth Once per day. gabapentin (Neurontin) 400 MG capsule Take 1 capsule by mouth at bedtime. lisinopril 40 MG tablet Take 1 tablet (40 mg) by mouth Once per day. 90 tablet 3 Mounjaro 2.5 MG/0.5ML solution auto-injector Inject 2.5 mg under the skin 1 (one) time per week. traZODone (Desyrel) 50 MG tablet Take 1-3 tablets by mouth if needed at bedtime for sleep. [DISCONTINUED] hydroCHLOROthiazide 12.5 MG tablet Take 1 tablet (12.5 mg) by mouth Once per day. 30tablet 2 [DISCONTINUED] metoprolol succinate XL (Toprol-XL) 50 MG 24 hr tablet Take 1 tablet (50 mg) by mouth Once per day. Do not crush or chew. 30 tablet 11 No current facility-administered medications on file prior to visit. Problem List Items Addressed This Visit Resistant hypertension Today I refilled her hydrochlorothiazide and I discontinue her metoprolol I advised low-sodium diet Relevant Medications hydroCHLOROthiazide 12.5 MG tablet Chronic elbow pain, right I refer her to orthopedics Relevant Orders Referral to Orthopaedic Surgery Type 2 diabetes mellitus, without long-term current use of insulin ([facility]) - Primary Currently being followed by endocrinology she is on Mounjaro 2.5 mg weekly, no other medications atthis time due to hypoglycemia events documented in this encounter Miscellaneous Notes * Assessment & Plan Note - Ginette Freeman MD - 09/13/2024 1:11 PM EDT Associated Problem(s): Type 2 diabetes mellitus, without long-term current use of insulin ([facility]) Currently being followed by endocrinology she is on Mounjaro 2.5 mg weekly, no other medications atthis time due to hypoglycemia events * Assessment & Plan Note - Ginette Freeman MD - 09/13/2024 1:11 PM EDT Associated Problem(s): Chronic elbow pain, right I refer her to orthopedics * Assessment & Plan Note - Ginette Freeman MD - 09/13/2024 1:11 PM EDT Associated Problem(s): Resistant hypertension Today I refilled her hydrochlorothiazide and I discontinue her metoprolol I advised low-sodium diet documented in this encounter Plan of Treatment Upcoming Encounters Date Type Department Care Team (Late st Contact Info) Description 12/16/2024 9:15 AM EDT Office Visit [facility] MED[facility]INE [address] [place] [address] Ginette Fortune MD [address] [place] [address] Scheduled Referrals Name Type Priority Associated Diagnoses Order Schedule Referral to Orthopaedic Surgery Outpatient Referral Routine Chronic elbow pain, right Expected: 09/13/2024 (Approximate), Expires: 09/13/2025 documented as of this encounter Visit Diagnoses Diagnosis Type 2 diabetes mellitus with stage 3 chronic kidney disease, without long-term current use of insulin, unspecified whether stage 3a or 3b CKD (CMS/HCC)- Primary Resistant hypertension Chronic elbow pain, right documented in this encounter Additional Health Concerns Assessment Noted Time PHQ-9 Depression Total Score: 0 10/21/19 10:02 AM EDT documented as of this encounter Care Teams Loading Unit Operator Powder Charging Relationship Specialty Start Date End Date Ginette Fortune MD [address] [place] [address] PCP - General Internal Medicine 10/27/23 documented as of this encounter
--- OUTSIDE RECORDS SUMMARY | 2024-09-14 13:43 | XMS_ITS | Encounter Summary ---
Author Organization [facility] Address [address] [place] [address] Phone Care Team Providers Care Works Manager Name Role Phone Ashkan Jacobson MD Primary Care Provider [phone] Encounter Details Date Type Department Care Team (Late st Contact Info) Description 04/04/2022 Documentation Only [facility] [place], [address] [place] [address] Macy Giraldo PA Social History [...] on filedocumented in this encounter Care Teams Works Manager Relationship Specialty Start Date End Date Ashkan Jacobson MD [address] [place] [address] [address] [place], [place] PCP - General 03/09/19 documented as of this encounter
--- OUTSIDE RECORDS SUMMARY | 2024-09-14 13:43 | XMS_ITS | Encounter Summary ---
Author Organization [facility] Address [address] [place] [address] Phone Care Team Providers Care Educational Psychologist Name Role Phone Ashkan Jacobson MD Primary Care Provider Encounter Details Date Type Department Care Team (Late st Contact Info) Description 03/22/2021 Documentation Only [facility], [address] [place] [address] Macy Giraldo PA Social History [...] on filedocumented in this encounter Care Teams Educational Psychologist Relationship Specialty Start Date End Date Ashkan Jacobson MD [address] [place] [address] [address] [place], [place] PCP - General 03/09/19 documented as of this encounter
--- OUTSIDE RECORDS SUMMARY | 2024-09-14 13:43 | XMS_ITS | Encounter Summary ---
Author Organization [employer] Address [address] [facility] 7[address] [place] [address] Care Team Providers Care Market Research Worker Name Role Phone Ginette Fortune MD Primary Care Provide r Reason for Visit * Reason Onset Date Comments Chart Prep 09/09/2024 Encounter Details Date Type Department Care Team ([facility] Contact Info) Description 09/09/2024 Telephone [facility] MEDICINE [address] [place] [address] Ginette Fortune MD [address] [place] [address] Chart Prep Social History Tobacco Use Types Packs/Day Years [...] encounter Miscellaneous Notes * Telephone Encounter - Era Buchanan [place] - 09/09/2024 3:08 PM EDT Chart Prep Labs: done Images: done Referrals: not applicable Vaccines due: Covid Screenings: colonoscopy, eye exam, and HIV Screening Overdue care gaps: Glucose, CHANI-7, and Disability screen documented in this encounter Plan of Treatment Upcoming Encounters Date Type Department Care Team (Late st Contact Info) Description 12/16/2024 9:15 AM EDT Office Visit [facility] MED[facility] [address] [place] [address] Ginette Fortune MD [address] [place] [address] documented as of this encounter Visit Diagnoses Not on filedocumented in this encounter Additional Health Concerns Assessment Noted Time PHQ-9 Depression Total Score: 0 10/21/19 24 10:02 AM EDT documented as of this encounter Care Teams Market Research Worker Relationship Specialty Start Date End Date Ginette Fortune MD [address] [place] [id number] PCP - General Internal Medicine 10/27/23 documented as of this encounter
--- OUTSIDE RECORDS SUMMARY | 2024-09-14 13:43 | XMS_ITS | Clinical Summary ---
Author Organization [email or web address] Address [address] [facility] 7 [place] [address] Care Team Providers Care Casing Operator Name Role Phone Ginette Fortune MD Primary Care Provide r Allergies Active Allergy Reactions Criticality Noted Date Comments Latex Rash,Unknown Low 05/26/2019 Medications amLODIPine (Norvasc) 10 MG tabletIndication s:Primary hypertension Take 1 tablet (10 mg) by mouth Once per day. 90 tablet 3 10/21/19 24 025 Active lisinopril 40 MG tabletIndication s:Primary hypertension Take 1 tablet (40 mg) by mouth Once per day. 90 tablet 3 10/21/19 24 025 Active Diclofenac Sodium 1 % gelIndications:A cute pain of left knee To apply to the affected area 3 times a day 100 g 11/07/19 24 Active Continuous Glucose Sensor (FreeStyle Jame 2 Sensor) misc Apply 1 sensor every 14 days 2 each 11/11/19 24 Active Blood Pressure Monitoring (Blood Pressure Cuff) miscIndications: Primary hypertension 1 each Once daily. 1 each 02/17/20 24 Active clonazePAM (KlonoPIN) 0.5 MG tablet Take 1-2 tablets by mouth if needed each day for anxiety. 02/23/20 24 Active Continuous Glucose Asphalt Plant Worker (FreeStyle Jame 2 [place]) device 02/06/20 24 Active docusate sodium (Colace) 100 MG capsule Take 1 capsule by mouth 2 times daily. 03/04/20 22 Active FLUoxetine (PROzac) 40 MG capsule Take 1 capsule by mouth Once per day. 03/08/20 22 Active gabapentin (Neurontin) 400 MG capsule Take 1 capsule by mouth at bedtime. 05/22/19 22 Active Artificial Tears 0.2-0.2-1 % solution INSTILL 1 DROP BOTH EYES TWICE DAILY 02/23/20 Active Mounjaro 2.5 MG/0.5ML solution auto-injector Inject 2.5 mg under the skin 1 (one) time per week. 04/21/20 24 Active traZODone (Desyrel) 50 MG tablet Take 1-3 tablets by mouth if needed at bedtime for sleep. Active hydroCHLOROthiaz matheus 12.5 MG tabletIndication s:Resistant hypertension Take 1 tablet (12.5 mg) by mouth Once per day. 30 tablet 2 09/14/19 25 026 Active metoprolol succinate XL (Toprol-XL) 50 MG 24 hr tabletIndication s:Primary hypertension Take 1 tablet (50 mg) by mouth Once per day. Do not crush or chew. 30 tablet 11 10/21/19 24 025 Discontinued hydroCHLOROthiaz matheus 12.5 MG tabletIndication s:Resistant hypertension Take 1 tablet (12.5 mg) by mouth Once per day. 30 tablet 2 01/27/20 24 025 Discontinued(Re order (will not trigger notification to Pharmacy)) Active Problems Problem Noted Date Diagnosed Date Chronic elbow pain, right 09/13/2024 Assessment & Plan (09/13/2024 1:11 PM EDT): I refer her to orthopedics Hydronephrosis 06/15/2024 Assessment & Plan (06/15/2024 5:03 [...] 01/27/2024 Resistant hypertension 01/27/2024 Assessment & Plan (09/13/2024 1:11 PM EDT): Today I refilled her hydrochlorothiazide and I discontinue her metoprolol I advised low-sodium diet Assessment & Plan (04/14/2024 12:37 PM EST): [...] Thyroid nodule 01/27/2024 Type 2 diabetes mellitus, [facility] long-term current use of insulin 10/21/2023 Assessment & Plan (09/13/2024 1:11 PM EDT): Currently being followed by endocrinology she is on Mounjaro 2.5 mg weekly, no other medications at this time due to hypoglycemia events Assessment & Plan (06/15/2024 5:04 PM EST): Extensive counseling about diabetic diet done I will continue only with Mounjaro weekly, I explained I will not initiate right [...] weight management Griffin Cuellar NP (located on [address] [place] [address] phone [phone]) Diabetes is: controlled - Lab Results Component [...] and psychiatrist Keiko Philippe located on [address] [place] [address] phone [phone] it is being prescribed for her trazodone, [...] Encounters Date Type Department Care Team Description 09/13/2024 9:00 AM EDT Office Visit [facility] [address] [place] [address] Ginette Fortune MD Type 2 diabetes mellitus with stage 3 chronic kidney disease, without long-term current use of insulin, unspecified whether stage 3a or 3b CKD (CMS/HCC) (Primary Dx); Resistant hypertension; Chronic elbow pain, right 09/13/2024 Travel 09/09/2024 Telephone [facility] [address] [place] [address] Ginette Fortune MD Chart Prep 09/07/2024 Telephone [facility] [address] [place] [address] Viet Bowman MD 09/07/2024 Travel 09/06/2024 Patient Outreach [facility] [address] [place] [address] Ginette Fortune MD Pre-visit Planning ([facility] unable to reach LVM) 08/18/2024 Orders Only GENERIC EXTERNAL DATA DEPARTMENT Provider, Generic External Data 08/16/2024 Orders Only [facility] External Provider, [facility] from Last 3 Months Immunizations Name Administration [...] Mass Index 31.33 09/13/2024 9:09 AM EDT Plan of Treatment Upcoming Encounters Date Type Department Care Team (Late st Contact Info) Description 12/16/2024 9:15 AM EDT Office Visit [facility] [address] [place] [address] Ginette Fortune MD [address] [place] [address] Health Maintenance Due Date Last Done Comments [...] BI Routine 08/16/2024 4:39 PM EDT POCT GLYCATED HEMOGLOBIN, TOTAL Routine 04/14/2024 10:13 [...] Whole Blood 188(H) 60 - 115 mg/dL [facility] Comment:METER #: [id number] Testing performed in the Endocrinology Department [address] , [address], [facility]. 08/18/2024 1:23 PM EDT 08/18/2024 1:27 PM EDT us Generic External Data Provider LAB BLOOD ORDERAB LES Final Result [facility] [address] [place] [phone] * US RENAL BI (08/16/2024 4:39 PM EDT) Anatomical Region Laterality Modality Abdomen Ultrasound 08/16/2024 4:39 PM EDT Narrative 08/16/2024 4:41 PM EDT ? [facility] ?[address] ?[place] [address] ? Ultrasound Report ? Signed ? Patient: Iverson,Rosie ?MR#: [id number] ? : 1960 ?Acct:[id number] ? Age/Sex: 64 / F ?ADM Date: 08/16/24 ? Loc: HO.US ? Attending Dr: Renato Bloom MD ? Ordering Physician: Renato Bloom MD ?? Date of Service: 08/16/24 ?? Procedure(s): US renal BI ?? Accession Number(s): [id number] ? cc: Ginette Fortune MD; Renato Bloom [...] DD/ 1639 ? TD/TT: 08/16/24 1639 ? [employer]: ? Procedure Note Prabhakar, Image - 08/16/2024 [place] [address] Ultrasound Report Signed Patient: Jovani Iverson#: [id number] : 2Acct:[id number] Age/Sex: 64 / FADM Date: 08/16/24 Loc: HO.US Attending Dr: Renato Bloom MD Ordering Physician: Renato Bloom MD Date of Service: 08/16/24 Procedure(s): US renal BI Accession Number(s): [id number] cc: Ginette Fortune MD; Renato Bloom MD [...] 08/16/24 1640 DD/ 1639 TD/TT: 08/16/24 1639 [employer]: us [facility] External Provider IMG US PROCEDURES Edited Result - Final * (ABNORMAL) POCT HGB A1C (04/14/2024 10:13 AM EST) Hemoglobin A1C 6.5(A) 4.0 - 6.0 % QC Media Lot # [id number] Lot# Expiration Date [id number] Blood 04/14/2024 10:1 3 AM EST Ginette Freeman MD POINT OF CARE TEST EN TER/EDIT ORDERABLES Final Result * BI Mammogram Screening Tomosynthesis Bilateral (03/09/2024 1:20 PM EST) Anatomical Region Laterality Modality Breast Bilateral Mammography 03/09/2024 1:20 PM EST Narrative 03/17/2024 1:55 PM EST ? [facility] [place] ? [address] ?[place] [address] ? Mammography Report ? Signed ? Patient: Rosie Iverson ?MR#: [id number] ? : 1960 ?Acct:[id number] ? Age/Sex: 63 / F ?ADM Date: 11/05/24 ? Loc: HO.MAMMO ? Attending Dr: Ginette Freeman MD ? Ordering Physician: Ginette Fortune MD ?Results: ?? 1Negative ? Date of Service: 11/05/24 ?Follow Up: 1 Year From Orig ?? inal Mammogram ? Procedure(s): MM tomosynthesis screening BI ?? Accession Number(s): [id number] ? cc: Ginette Fortune MD ? EXAMINATION: [...] DD/ 1320 ? TD/TT: 03/09/24 1335 ? [employer]: ? Procedure Note Prabhakar, Melinda - 03/17/2024 [facility] [address] [place] [address] Dr. Carlos, [place] [address] Mammography Report Signed Patient: Jovani Iverson#: [id number] : 2Acct:[id number] Age/Sex: 63 / FADM Date: 03/09/24 Loc: HO.MAMMO Attending Dr: Ginette Freeman MD Ordering Physician: Ginette Fortune MDResults: 1Negative Date of Service: 03/09/24Follow Up: 1 Year From Orig inal Mammogram Procedure(s): MM tomosynthesis screening BI Accession Number(s): [id number] cc: Ginette Fortune MD EXAMINATION: MM SCREENING [...] by: Amy Lu DO 03/17/2024 01:52 PM [facility] Dictated By: Amy Lu DO Signed By: <Electronically signed by Amy Lu DO in OV> 03/17/24 1352 DD/ 1320 TD/TT: 03/09/24 1335 [employer]: us Ginette Freeman MD IMG BI PROCEDURES Fin al Result * Hepatitis C Antibody with Reflex to HCV, RNA, Quantitative, Real-Time PCR (01/27/2024 10:22 AM EDT) Hepatitis C Antibody Nonreactive Nonreactive [facility] Comment:Antibodies to HCV no t detected; does not exclude early acuteHCV infection. Blood Venous blood specimen / Unknown 01/27/2024 10:22 AM EDT 01/27/2024 11:20 AM EDT us Ginette Freeman MD LAB BLOOD ORDERABLES Final Result [facility] [address] [place] [address] [phone] * (ABNORMAL) Lipid Panel, Standard (01/27/2024 10:22 AM EDT) Triglycerides 195(H) <150 mg/dL [facility] Comment:Desirable Triglyceri de: less than 150 mg/dLBorderline High Triglyceride 150-199 mg/dLHigh Triglyceride: 200-499 mg/dLVery High Triglyceride: greater than or equal to 5OO mg/dL Cholesterol 222(H) <200 mg/dL [facility] Comment:Desirable Cholestero l: less than 200 mg/dLBorderline High Cholesterol: 200-239 mg/dLHigh Cholesterol: greater than 239 mg/dL LDL Cholesterol Calculated 129(H) <100 mg/dL [facility] Comment:Desirable LDL: less than 100 mg/dLNear Optimal/Above Optimal LDL: 110- 129 mg/dLBorderline High LDL: 130-159 mg/dLHigh LDL: 160-189 mg/dLVery High LDL: greater than or equal to 190 mg/dL HDL Cholesterol 54 >40 mg/dL [facility] Comment:Desirable HDL: great er than 40 mg/dL Note: This HDL assay may give artificially low results in patients with liver disease. Blood Venous blood specimen / Unknown 01/27/2024 10:22 AM EDT 01/27/2024 11:20 AM EDT us Ginette Freeman MD LAB BLOOD ORDERABLES Final Result [facility] [address] [place] [address] [phone] from Last 3 Months or Most Recently Relevant to Health Maintenance Insurance [employer] < [address] [place] [id number] Care Teams Casing Operator Relationship Specialty Start Date End Date Ginette Fortune MD [address] [place] [address] PCP - General Internal Medicine 10/27/23
--- OUTSIDE RECORDS SUMMARY | 2024-09-14 13:44 | XMS_ITS | Encounter Summary ---
Author Organization [facility] Address [address] [place] [address] Phone Care Team Providers Care Ceramic Tile Setter Name Role Phone Ashkan Jacobson MD Primary Care Provider [phone] Encounter Details Date Type Department Care Team (Late st Contact Info) Description 07/30/2023 Documentation Only [facility] [place], [address] [place] [address] Xochilt Crawford [place] [address] [place] [address] Social History Tobacco Use Types [...] on filedocumented in this encounter Care Teams Ceramic Tile Setter Relationship Specialty Start Date End Date Ashkan Jacobson MD [address] [place] [address] [address] [place], [place] PCP - General 03/09/19 documented as of this encounter
--- OUTSIDE RECORDS SUMMARY | 2024-09-14 13:44 | XMS_ITS | Encounter Summary ---
Author Organization [facility] Address [address] [place] [address] Phone Care Team Providers Care Track Vehicle Repairer Name Role Phone Ashkan Jacobson MD Primary Care Provider [phone] Encounter Details Date Type Department Care Team (Late st Contact Info) Description 02/17/2024 Documentation Only [facility] [place], [address] [place] [address] Xochilt Crawford [place] [address] [place] [address] Social History Tobacco Use Types [...] on filedocumented in this encounter Care Teams Track Vehicle Repairer Relationship Specialty Start Date End Date Ashkan Jacobson MD [address] [place] [address] [address] [place], [place] PCP - General 03/09/19 documented as of this encounter
--- OUTSIDE RECORDS SUMMARY | 2024-09-14 13:44 | XMS_ITS | Encounter Summary ---
Author Organization [facility] Address [address] [place] [address] Phone Care Team Providers Care Supervisor Grounds Name Role Phone Ashkan Jacobson MD Primary Care Provider [phone] Encounter Details Date Type Department Care Team (Late st Contact Info) Description 07/23/2023 Documentation Only [facility] [place], [address] [place] [address] Xochilt Crawford [place] [address] [place] [address] Social History Tobacco Use Types [...] filedocumented in this encounter Care Teams Supervisor Grounds Relationship Specialty Start Date End Date Ashkan Jacobson MD [address] [place] [address] [address] [place], [place] PCP - General 03/09/19 documented as of this encounter
--- OUTSIDE RECORDS SUMMARY | 2024-09-14 13:44 | XMS_ITS | Encounter Summary ---
Author Organization [facility] Address [address] [place] [address] Phone Care Team Providers Care Field Cane Scaler Name Role Phone Ashkan Jacobson MD Primary Care Provider [phone] Encounter Details Date Type Department Care Team (Late st Contact Info) Description 07/21/2023 Documentation Only [facility] [place], [address] [place] [address] Xochilt Crawford [place] [address] [place] [address] Social History Tobacco Use Types [...] filedocumented in this encounter Care Teams Field Cane Scaler Relationship Specialty Start Date End Date Ashkan Jacobson MD [address] [place] [address] [address] [place], [place] PCP - General 03/09/19 documented as of this encounter
--- OUTSIDE RECORDS SUMMARY | 2024-09-14 13:44 | XMS_ITS | Encounter Summary ---
Author Organization [facility] Address [address] [place] [address] Phone Care Team Providers Care Tie Tape Machine Operator Name Role Phone Ashkan Jacobson MD Primary Care Provider [phone] Encounter Details Date Type Department Care Team (Late st Contact Info) Description 08/28/2023 Documentation Only [facility] [place], [address] [place] [address] Xochilt Crawford [place] [address] [place] [address] Social History Tobacco Use Types [...] on filedocumented in this encounter Care Teams Tie Tape Machine Operator Relationship Specialty Start Date End Date Ashkan Jacobson MD [address] [place] [address] [address] [place], [place] PCP - General 03/09/19 documented as of this encounter
--- OUTSIDE RECORDS SUMMARY | 2024-09-14 13:44 | XMS_ITS | Encounter Summary ---
Author Organization [facility] Address [address] [place] [address] Phone Care Team Providers Care Patient Care Manager Name Role Phone Ashkan Jacobson MD Primary Care Provider [phone] Encounter Details Date Type Department Care Team (Late st Contact Info) Description 08/04/2023 Documentation Only [facility] [place], [address] [place] [address] Xochilt Crawford [place] [address] [place] [address] Social History Tobacco Use Types [...] filedocumented in this encounter Care Teams Patient Care Manager Relationship Specialty Start Date End Date Ashkan Jacobson MD [address] [place] [address] [address] [place], [place] PCP - General 03/09/19 documented as of this encounter
--- OUTSIDE RECORDS SUMMARY | 2024-09-14 13:44 | XMS_ITS | Encounter Summary ---
Author Organization [facility] Address [address] [place] [address] Phone Care Team Providers Care Distribution Supervisor Name Role Phone Ashkan Jacobson MD Primary Care Provider [phone] Encounter Details Date Type Department Care Team (Late st Contact Info) Description 02/04/2024 Documentation Only [facility] [place], [address] [place] [address] Xochilt Crawford [place] [address] [place] [address] Social History Tobacco Use Types [...] on filedocumented in this encounter Care Teams Distribution Supervisor Relationship Specialty Start Date End Date Ashkan Jacobson MD [address] [place] [address] [address] [place], [place] PCP - General 03/09/19 documented as of this encounter
--- OUTSIDE RECORDS SUMMARY | 2024-09-14 13:44 | XMS_ITS | Clinical Summary ---
Author Organization [facility] [place], Address [address] [place] [address] [place] [address] Phone Care Team Providers Care Access Registrar Name Role Phone Ashkan Jacobson MD Primary Care Provider [phone] Allergies Active Allergy Reactions Criticality Noted Date [...] AM EDT) Hemoglobin A1C 6.7(H) (4.0-5.6) % [facility] Comment: MONITORING: In known diabetic patients, hemoglobin A1c targets should be discussed with health care provider. DIAGNOSTIC USE: ??The [place] Diabetes Association (ADA) and the World Health [...] Supplement 1 Testing performed or reported by [facility], a Service of [facility], [address] [place] [address] Familia Britton MD, Collector Of Internal Revenue [facility]# [id number] Blood (Blood, Venous) 02/05/2023 10:48 AM EDT 02/05/2023 10:49 AM EDT Godfrey Marcum MD LAB BLOOD ORDERABLES Final Re sult [facility] from Last 3 Months or Most Recently Relevant to Health Maintenance Insurance [facility] Care Dual SNP ([id number]) [place] [id number] Care Teams Access Registrar Relationship Specialty Start Date End Date Ashkan Jacobson MD [address] [place] [address] PCP - General 03/09/19
--- OUTSIDE RECORDS SUMMARY | 2024-09-14 13:44 | XMS_ITS | Encounter Summary ---
Author Organization [facility] Address [address] [place] [address] Phone Care Team Providers Care Fashion Styling Intern Name Role Phone Ashkan Jacobson MD Primary Care Provider [phone] Encounter Details Date Type Department Care Team (Late st Contact Info) Description 12/19/2023 Documentation Only [facility] [place], [address] [place] [address] Xochilt Crawford [place] [address] [place] [address] Social History Tobacco Use [...] on filedocumented in this encounter Care Teams Fashion Styling Intern Relationship Specialty Start Date End Date Ashkan Jacobson MD [address] [place] [address] [address] [place], [place] PCP - General 03/09/19 documented as of this encounter
--- OUTSIDE RECORDS SUMMARY | 2024-09-14 13:44 | XMS_ITS | Encounter Summary ---
Author Organization [facility] Address [facility] [place] [address] Care Team Providers Care Cattle Farmer Name Role Phone Kaley Jacobson MD Primary Care Provider Unavailab le Encounter Details Date Type Department Care Team Description 05/02/2017 Transfer Records Medical Records [address] [place] [id number] Abstract, Provider Social History Tobacco Use Types [...] Kaley Jacobson sent to Carlotta Suarez R.N. Carpentry Supervisor. documented in this encounter Plan of Treatment Not on file documented as of this encounter Visit Diagnoses Not on filedocumented in this encounter Care Teams Cattle Farmer Relationship Specialty Start Date End Date Kaley Jacobson MD PCP - General Internal Medicine 03/11/17 documented as of this encounter
--- OUTSIDE RECORDS SUMMARY | 2024-09-14 13:44 | XMS_ITS | Clinical Summary ---
Author Organization [facility] Address [address] [place] [address] Care Team Providers Care Nursing Support Worker Name Role Phone Kaley Jacobson MD [...] Continued pain 03/2017, seeking 2nd opinion at [facility] History of CVA (cerebrovascular accident ) 06/06/2017 Overview: 06/27/2016 Duplex bilat carotid US, no evidence of significant stenosis. Lipoma of left thigh 06/06/2017 Overview: 03/21/2016 bx Multiple renal cysts 06/06/2017 Overview: Bilateral, 06/04/2016 Multiple thyroid nodules 06/06/2017 Overview: US 12/2015 Multiple pulmonary nodules 06/06/2017 Overview: Bilaterally, chest CT 12/2015 Depression HTN (hypertension) Immunizations Name Administration Dates Next Due Ddatp-Lgjra-Qnhorcqj + 10/04/2014 Varicella Titre-Positive + 10/04/2014 Social [...] Ended) 2025 022, 01/09/2016, 02/04/2015 Care Teams Nursing Support Worker Relationship Specialty Start Date End Date Kaley Jacobson MD PCP - General Internal Medicine 03/11/17
--- OUTSIDE RECORDS SUMMARY | 2024-09-14 13:44 | XMS_ITS | Encounter Summary ---
Author Organization [facility] Address [address] [place] [address] Phone Care Team Providers Care Bioprocessing Manufacturing Technician Name Role Phone Ashkan Jacobson MD Primary Care Provider [phone] Encounter Details Date Type Department Care Team (Late st Contact Info) Description 09/28/2021 Documentation Only [facility] [place], [address] [place] [address] Macy Giraldo PA Social History [...] on filedocumented in this encounter Care Teams Bioprocessing Manufacturing Technician Relationship Specialty Start Date End Date Ashkan Jacobson MD [address] [place] [address] [address] [place], [place] PCP - General 03/09/19 documented as of this encounter
--- OUTSIDE RECORDS SUMMARY | 2024-09-14 13:44 | XMS_ITS | Encounter Summary ---
Author Organization [facility] Address [address] [place] [address] Phone Care Team Providers Care Police District Switchboard Operator Name Role Phone Ashkan Jacobson MD Primary Care Provider [phone] Encounter Details Date Type Department Care Team (Late st Contact Info) Description 12/18/2021 Documentation Only [facility] [place], [address] [place] [address] Macy Giraldo PA Social History [...] on filedocumented in this encounter Care Teams Police District Switchboard Operator Relationship Specialty Start Date End Date Ashkan Jacobson MD [address] [place] [address] [address] [place], [place] PCP - General 03/09/19 documented as of this encounter
--- OUTSIDE RECORDS SUMMARY | 2024-09-14 13:44 | XMS_ITS | Data Portability ---
Author Organization [place] - [facility], [facility] Address [address] [place] [address] Assessment Encounter Date Assessment Date Assessment LastModified [...] may follow up with me as needed [email or web address] Not available 08/31/2024 12:24:31 Plan of Treatment Reminders Order Date Submit Date Provider Last Modified By Organization Details Last Modified Time Details Appointments None recorded. Lab None recorded. Referral None recorded. Procedures None recorded. Surgeries None recorded. Imaging XR, knee, 3 view - 2nd opinion post LTKR. 3v room 202 2024 025 [email or web address] [facility], [address], [place], [address], 5 10:24:56 XR, knee, 3 view - 209, 3 views of right knee. 2024 025 [email or web address] [facility], [address], [address], [place], [address], 5 08:05:15 XR, knee, 3 view - rm 308 3 LTKR done in [place] 2009 pain , no trauma 2023 024 [email or web address] [facility], [address], [place], [address], 4 10:26:53 Medication Orders lidocaine 4 % topical patch [email or web address] [facility], [address] [place] [address], [id number], 5 15:55:51 Voltaren Arthritis Pain 1 % topical gel [address] [facility] [address] [facility], [address] [place] [address], [id number], 5 08:05:15 meloxicam 15 mg tablet [address] [facility], [address] [place] [address], [id number], 5 08:05:15 meloxicam 15 mg tablet 2023 024 [facility], [address] [place] [address], [id number], 4 10:00:54 Patient TargetsNo targets recorded. Patient InstructionsNo instructions recorded. Reason for Referral None Reported. Results Created Date Observation Date Name Description Value Unit Range Abnormal Flag Note LastModifiedBy Organization Detail LastModifiedTime 07/02/1907/02/2024 CBC WITH DIFFE RENTI AL/PL ATELE T WBC 8.4 K/mm3 4.0-11 .0 normal Not Available [address], [address], 07/02/2024 15:57:53 07/02/19 25 07/02/2024 CBC WITH DIFFE RENTI AL/PL ATELE T RBC 4.84 M/mm3 4.20-5 .40 normal Not Available [address], [address], 07/02/2024 15:57:53 07/02/19 25 07/02/2024 CBC WITH DIFFE RENTI AL/PL ATELE T hemoglobin 13.5 gm/dL 11.7-1 5.5 normal Not Available [address], [address], 07/02/2024 15:57:53 07/02/19 25 07/02/2024 CBC WITH DIFFE RENTI AL/PL ATELE T hematocrit 42.2 % 35.7-4 5.8 normal Not Available [address], [address], 07/02/2024 15:57:53 07/02/19 25 07/02/2024 CBC WITH DIFFE RENTI AL/PL ATELE T MCV 87.2 fL 80.0-1 00.0 normal Not Available [address], [address], 07/02/2024 15:57:53 07/02/19 25 07/02/2024 CBC WITH DIFFE RENTI AL/PL ATELE T MCH 27.9 pg 27.0-3 4.0 normal Not Available [address], [address], 07/02/2024 15:57:53 07/02/19 25 07/02/2024 CBC WITH DIFFE RENTI AL/PL ATELE T MCHC 32.0 g/dL 33.0-3 7.0 below low normal Not Available [address], [address], 07/02/2024 15:57:53 07/02/19 25 07/02/2024 CBC WITH DIFFE RENTI AL/PL ATELE T RDW 43.8 fL <47.0 Not Available [address], [address], 07/02/2024 15:57:53 07/02/19 25 07/02/2024 CBC WITH DIFFE RENTI AL/PL ATELE T platelets 245 K/mm3 150-46 0 normal Not Available [address], [address], 07/02/2024 15:57:53 07/02/19 25 07/02/2024 CBC WITH DIFFE RENTI AL/PL ATELE T neutrophils 56.9 % 44-76 normal Not Available [address], [address], 07/02/2024 15:57:53 07/02/19 25 07/02/2024 CBC WITH DIFFE RENTI AL/PL ATELE T lymphs 28.9 % 15-43 normal Not Available [address], [address], 07/02/2024 15:57:53 07/02/19 25 07/02/2024 CBC WITH DIFFE RENTI AL/PL ATELE T monocytes 10.5 % 4.5-10 .5 normal Not Available [address], [address], 07/02/2024 15:57:53 07/02/19 25 07/02/2024 CBC WITH DIFFE RENTI AL/PL ATELE T eos 2.8 % 0-6 normal Not Available [address], [address], 07/02/2024 15:57:53 07/02/19 25 07/02/2024 CBC WITH DIFFE RENTI AL/PL ATELE T basos 0.7 % 0-2 normal Not Available [address], [address], 07/02/2024 15:57:53 07/02/19 25 07/02/2024 CBC WITH DIFFE RENTI AL/PL ATELE T neutrophils (absolute) 4.8 K/mm3 1.3-7. 0 normal Not Available [address], [address], 07/02/2024 15:57:53 07/02/19 25 07/02/2024 CBC WITH DIFFE RENTI AL/PL ATELE T lymphs (absolute) 2.4 K/mm3 0.8-3. 1 normal Not Available [address], [address], 07/02/2024 15:57:53 07/02/19 25 07/02/2024 CBC WITH DIFFE RENTI AL/PL ATELE T monocytes(ab solute) 0.9 K/mm3 0.4-0. 9 normal Not Available [address], [address], 07/02/2024 15:57:53 07/02/19 25 07/02/2024 CBC WITH DIFFE RENTI AL/PL ATELE T eos (absolute) 0.2 K/mm3 0.0-0. 4 normal Not Available [address], [address], 07/02/2024 15:57:53 07/02/19 25 07/02/2024 CBC WITH DIFFE RENTI AL/PL ATELE T baso (absolute) 0.1 K/mm3 0.0-0. 1 normal Not Available [address], [address], 07/02/2024 15:57:53 07/02/19 25 07/02/2024 CBC WITH DIFFE RENTI AL/PL ATELE T immature granulocytes 0.2 % Not Available [address], [address], 07/02/2024 15:57:53 07/02/19 25 07/02/2024 CBC WITH DIFFE RENTI AL/PL ATELE T immature grans (abs) 0.0 K/mm3 Not Available [address], [address], 07/02/2024 15:57:53 07/02/19 25 07/02/2024 CBC WITH DIFFE RENTI AL/PL ATELE T NRBC 0.0 #/100 _WBC' s Not Available [address], [address], 07/02/2024 15:57:53 07/02/19 25 07/02/2024 CBC WITH DIFFE RENTI AL/PL ATELE T hematology comments: Commen t AUTOM ATED DIFFE RENTI AL MPV 12.4 FL 9.4-1 2.4 N ABS. NRBC 0.0 K/MM3 N Not Available [address], [address], 07/02/2024 15:57:53 07/02/19 25 07/02/2024 SEDIM ENTAT ION RATE- WESTE RGREN sedimentatio n rate-westerg eulalia 4 mm/HR 0-20 normal Not Available [address], [address], 07/02/2024 15:57:55 07/02/19 25 07/02/2024 C-GIOVANNI CTIVE PROTE IN, QUANT C-reactive protein, quant <0.3 mg/dL 0-0.5 Not Available [address], [address], 07/02/2024 15:57:56 12/09/19 24 12/09/2023 XR, knee, 3 view [email or web address] ?Encry pted=s hAaTro YD8dLq bEUv6g %2BXZw aYqtaq 0bqfl% 2Fg9IQ a4ajBk vP9nXo QUaueC m3YtLR FvZlgJ JJ8mAn tai3 8o4595 AC0Kob 3qHVar eUC8mr 84%3D INTERFACE [facility] [address], [place], [address], 12/09/2023 14:08:56 12/09/19 24 12/09/2023 XR, knee, 3 view [email or web address] ?Encry pted=s hAaTro YD8dLq bEUv6g %2BXZw aYqtaq 0bqfl% 2Fg9IQ a4ajBk vP9nXo QUaueC m3YtLR FvZlgJ JJ8mAn HZtai3 7p1862 AC0Kob 3qHVar eUC8mr 84%3D INTERFACE [facility] [address], [place], [address], 12/09/2023 14:08:57 07/24/19 25 07/23/2024 XR, knee, 3 view [email or web address] ?Encry pted=s hAaTro YD8dLq bEUv6g %2BXZw aYqtaq 0bqfl% 2Fg9IQ a4ajBk vP9nXo QUaueC m3YtLR FvZl JJ8[facility] Hospitaltai[facility] 0i6904 AC0KqY niHU6q vKiQtr MwF INTERFACE [facility] [address], [place], [address], 07/23/2024 15:34:18 07/24/19 25 07/23/2024 XR, knee, 3 view [email or web address] ?Encry pted=s hAaTro YD8dLq bEUv6g %2BXZw aYqtaq 0bqfl% 2Fg9IQ a4ajBk vP9nXo QUaueC m3YtLR FvZlgJ JJ8mAn HZtai3 6d6667 AC0KqY niHU6q vKiQtr MwF INTERFACE [facility] [address], [place], [address], 07/23/2024 15:34:20 09/01/19 25 08/31/2024 XR, knee, 3 view [email or web address] ?Encry pted=s hAaTro YD8dLq bEUv6g %2BXZw aYqtaq 0bqfl% 2Fg9IQ a4ajBk vP9nXo QUaueC m3YtLR FvZlgJ JJ8mAn HZtai3 2p2924 AC0Kla n6EUKa uKiQtr MwF INTERFACE [facility] [address], [place], [address], 08/31/2024 11:17:33 09/01/19 25 08/31/2024 XR, knee, 3 view [email or web address] ?Encry pted=s hAaTro YD8dLq bEUv6g %2BXZw aYqtaq 0bqfl% 2Fg9IQ a4ajBk vP9nXo QUaueC m3YtLR FvZlgJ JJ8mAn HZtai3 8v4528 AC0Kla n6EUKa uKiQtr MwF INTERFACE [facility] [address], [place], [address], 08/31/2024 11:17:35 Result Notes None recorded. Problems Name Problem SNOMED Code Status Onset Date Resolution Date Notes Provider Name and Address Organization Details Recorded Time No complaints 414538018 Active Status : 'I'; Not Available [facility] 09:[facility]27 History of left total knee replacemen t 2822979823729 105 Active 2024 Renato Horner MD [address], [place], [address] , [facility] 5 12:24:30 Diabetes mellitus 60570051 Active 2018 Status : 'A'; Not Available [facility] 4 11:27:59 Osteoarthr itis 009817289 Active 2018 Status : 'A'; Not Available [facility] 4 11:27:59 Osteopenia 850507403 Active 2018 Status : 'A'; Not Available [facility] 4 11:27:59 Non-toxic multinodul ar goiter 03974488 Active 2018 Status : 'A'; Not Available [facility] 4 11:27:59 Kidney disease 58199034 Active 2018 Status : 'A'; Not Available [facility] 4 11:27:59 Hyperlipid emia 44045144 Active 2018 Status : 'A'; Not Available [facility] 4 11:27:59 Depressive disorder 62825085 Active 2018 Status : 'A'; Not Available [facility] 4 11:27:59 Neuropathy due to diabetes mellitus 081712615 Active 2018 Status : 'A'; Not Available [facility] 4 11:27:59 Problem Notes None recorded. Procedures Surgical History None recorded. Imaging Results Imaging Date Name Status LastModified by [facility] Details LastModified Time 12/09/2023 XR, knee, 3 view completed INTERFACE [facility] [address], [place], [address], 12/09/2023 14:08:56 12/09/2023 XR, knee, 3 view completed INTERFACE [facility] [address], [place], [address], 12/09/2023 14:08:57 07/23/2024 XR, knee, 3 view completed INTERFACE [facility] [address], [place], [address], 07/23/2024 15:34:18 07/23/2024 XR, knee, 3 view completed INTERFACE [facility] [address], [place], [address], 07/23/2024 15:34:20 08/31/2024 XR, knee, 3 view completed INTERFACE [facility] [address], [place], [address], 08/31/2024 11:17:33 08/31/2024 XR, knee, 3 view completed INTER[facility] [address], [place], [address], 08/31/2024 11:17:35 Procedure Notes None recorded. Medical Equipment None Reported. Allergies Allergen ID Allergen Name Allergen Category Reaction Reaction Severity Criticality Documentation Date Start Date Code Code System Note Provider Name and Address Organization Details Recorded Time 59042 latex environme nt,medica tion Not available Not available Not available 07/07/20232016 00601 91 RxNorm Aller gyRea ction : 'Skin React ion'; Not Available [facility] 12:45:00 Medications Name Sig Start Date [...] Not Available Not Available No t Available trazodone 50 mg tablet TAKE 1 TO [...] Not Available Not Available No t Available estradiol 0.01% (0.1 mg/gram) vaginal cream INSERT 1 GRAM VAGINALLY EVERY DAY AT BEDTIME FOR FOURTEEN DAYS, THEN DECREASE TO TWICE A WEEK active Not Available Not Available No [...] Available Not Available Not Available Artificial Tears (ev947-rawb omell-glyce rin) 1 %-0.2 %-0.2 % eye [...] completed Not Available Not Available Not Available Lidocaine Pain Relief 4 % topical patch APPLY 1 PATCH TOPICALLY ONCE DAILY DIRECTED active Not Available Not Available No t Available FreeStyle Jame 2 Sensor kit USE DIRECTED TO TEST BLOOD SUGAR CHANGE EVERY 14 DAYS active Not Available Not Available No t Available FreeStyle Jame 2 [place] USE DIRECTED active Not Available Not Available [...] Address Organization Details Last Updated DateTime 07/23/2024 23016.63 g 34 kg/m2 154.94 cm Jordana Elise [facility] 07/23/2024 15:24:04 Date Recorded Body height Body mass index (BMI) Body weight Provider Name and Address Organization Details Last Updated DateTime 08/31/2024 155.58 cm 30.7 kg/m2 58205.71 g Emy Pitts [facility] 08/31/2024 11:02:16 Social History Question Answer Notes LastModified by Organizat ion Details LastModified Time Tobacco Smoking Status Never Smoker Emy serrano [place] - [facility] 08/31/2024 11:05:25 What Is Your Relationship Status? [email or web address] Information not available 08/31/2024 Sex: Unknown Functional Status Question Answer Note LastModified by Organizat ion Details LastModified Time Do you use any illicit or recreational drugs? No Information not available 08/31/2024 Do you or have you ever used any other forms of tobacco or nicotine? No Information not available 08/31/2024 What is your level of alcohol consumption? None Information not available 08/31/2024 Mental Status None recorded. Family History Nothing Reported. Medical History No medical history recorded. Gynecological HistoryNo gynecological history recorded. Obstetrics History GPAL:G 0 P 0 0 0 0 Past Encounters Encounter ID Performer Location Encounter Start Date Encounter Closed Date Diagnosis/Indication Diagnosis SNOMED-CT Code Diagnosis ICD10 Code Diagnosis Note [id number] RAMÍREZ Michaud [address] [place] [address] 12/09/2023 13:52:34 12/31/2023 10:26:53 Knee joint prosthesis present 3887177866 02 Z96.651 History of total knee arthroplasty 1111102931 105 Z96.209 [id number] RAMÍREZ Ryan [address] [place] [address] 07/23/2024 13:48:59 08/12/2024 12:55:47 History of right total knee replacement 8114002283 504569 Z96.651 Pes anseri nus bursitis of right knee 5951803605 807265 M70.51 [id number] MD SYLWIA Braga [address] [place] [address] 08/31/2024 10:51:40 09/06/2024 10:24:56 History of left total knee replacement 0102381253 422064 Z96.652 Health Concerns Section Related Observation LastModified by Organization Detai ls LastModified Time None Recorded Concern Status LastModified by Organization Details LastModified Time None Recorded Advance Directives Directive None Recorded Payers Encounter Date Sequence Insurance Name Policy Number Policy Grant Covered Member ID Grant Member ID Guarantor Name 12/09/2023 1 [facility] - DOS ON OR AFTER 2022 - ONE CARE (MEDICARE REPLACEMENT/ADV ANTAGE - HMO) Rosie Dash Cheikh bhakta [id number] Rosie Iverson-Pelaez 07/23/2024 1 [facility] - DOS ON OR AFTER 2022 - ONE CARE (MEDICARE REPLACEMENT/ADV ANTAGE - HMO) Rosie Dash [employer] bhakta [id number] Rosie Iverson-Pelaez 08/31/2024 1 [facility] - DOS ON OR AFTER 2022 - ONE CARE (MEDICARE REPLACEMENT/ADV ANTAGE - HMO) Rosie Dash [employer]orge bhakta [id number] Rosie Isak Notes Date Note Type Note Provider Name and Address Organization Details Recorded Time 12/09/2023 text/html I am seeing the patient today under the supervision of Dr. Mckinnon who was available but who did not see the patient. HPI: Rosie presents to the office for an evaluation of her left knee. She is status post left total knee arthroplasty performed in [place] in 2009. She subsequently developed an infection [...] and lucid. Normal insight, affect and grooming. 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 No spasticity [...] compartments soft and compressible. Labs performed at [facility] recently reveal a sed rate of 6, CRP 0.3, WBC 8.6. X-rays ordered, obtained and reviewed at [facility] today include 3 views of the left [...] office. All questions answered. Oxana Rodriguez PA-C [address] [place] [address] [address], [place], [address], [facility] 12/09/2023 17:08:14 07/23/2024 text/html [...] come back as needed. Hernan Banuelos PA-C [address] [place], [place] [address] [address], [place], [address], [facility] 07/23/2024 15:52:38 08/31/2024 text/html History of prese nt illness:Rosie presents today for evaluation for her left knee. To review in brief, I proceed replaced her right knee, her left knee was replaced years ago in [place] and had to be revised one year [...] patient? s chart. Renato Horner MD [address] [facility] [address], [place], [address], [facility] 08/31/2024 12:24:51 OBGyn Episode No OBEpisode recorded.
--- OUTSIDE RECORDS SUMMARY | 2024-09-14 13:44 | XMS_ITS | Continuity of Care Document ---
Author Organization [facility] Kat ronel Address [address] [place] [address] ve [address] [place] [address]- Care Team Providers Care Gymnasium Teacher Name Role Phone Mateo Freeman MD, Ginette Carty Primary Care Physici an Encounter [facility] Date(s): 08/09/24 - 09/08/24 [facility] [address] [id number] Encounter Type: Triage Allergies, Adverse Reactions, Alerts [...] 2 Refills, Maintenance, 07/05/20 1:44:00 PM EST, [facility], 154.9, cm, 01/26/20 13:53:00 EDT, Height, 83.9, kg, 01/20/19 5:07:00 EDT, Dry Weight Start Date: 07/05/20 Status: Ordered Quantity: 12.0 Unit: tablet Repeat number: 3 amLODIPine 10 mg oral tablet 1 tablet, By Mouth, Daily, # 90 tablet, 1 Refills, Maintenance, 04/15/23 7:30:00 PM EST, [facility] #43066, 155, cm, 04/04/23 11:33:00 EST, Height Start Date: 04/15/23 Status: Ordered Quantity: 90.0 Unit: tablet Repeat number: 2 D 1000 IU oral tablet See Instructions, TAKE 1 TABLET BY MOUTH ONCE A DAY, # 90 tablet, 1 Refills, Maintenance, [facility], 154.9, cm, 01/26/20 13:53:00 EDT, Height, 83.9, kg, 01/20/19 5:07:00 EDT, Dry Weight Start Date: 08/07/20 Status: Ordered Quantity: 90.0 Unit: tablet Repeat number: 2 FLUoxetine 20 mg oral capsule 1, capsule, By Mouth, Daily, # 180 capsule, Refills 1, Tot. Refills 0, Maintenance, 08/24/20 7:16:00AM EDT, Route to Pharmacy Electronically, [facility], 154.9, cm, 01/26/20 13:53:00 EDT, Height, 83.9, kg, 01/20/19 5:07:00 EDT, Dry Weight Start Date: 08/24/20 Status: Ordered Quantity: 180.0 Unit: capsule Repeat number: 1 fluticasone 50 mcg/inh nasal spray See Instructions, SHAKE LIQUID AND USE 2 SPRAYS IN EACH NOSTRIL EVERY MORNING, # 48 Gm, 3 Refills, 04/15/23 7:29:00 PM EST, [facility] #08638, 30, SHAKE LIQUID AND USE 2 SPRAYS IN EACH NOSTRIL EVERY MORNING, 155, cm, 04/04/23 11:33:00 EST, Height Start Date: 04/15/23 Status: Ordered Quantity: 48.0 Unit: g Repeat number: 4 gabapentin 400 mg oral capsule 1, capsule, By Mouth, Daily at bedtime, # 90 capsule, Refills 1, Tot. Refills 1, Maintenance, 05/22/21 2:58:00 PM EST, [id number], 154.9, cm, 04/04/21 10:55:00 EST, Height Start Date: 05/22/21 Status: Ordered Quantity: 90.0 Unit: capsule Repeat number: 2 lisinopril 40 mg oral tablet See Instructions, TAKE 1 TABLET BY MOUTH ONCE A DAY, # 90 tablet, 0 Refills, [facility], 154.9, cm, 09/06/20 14:25:00 EDT, Height, 83.9, [...] 2:22:00 PM EDT, Route to Pharmacy Electronically, [facility],Partial fill upon patient request if [...] Replace Required Details, Route to Pharmacy Electronically, [facility], 154.9, cm, 01/26/20 13:53:00 EDT, Height, [...] Name: Mateo Freeman MD, Ginette Carty Position: [facility] Outreach Member Role: PCP Address: [address] [place] [address] Telecom: Name: Yonny Jeanna Position: [facility] Outreach Member Role: Lifetime Consulting Physician Name: Marielena POWELL, Rocio Position: [facility] SN RN Member Role: Primary Care Nurse Name: Ruben Prather RN Position: [facility] RN Member Role: Primary Care Nurse Name: Lilia Temple Position: [facility] Outreach Member Role: Lifetime Consulting Physician Name: Tony Dsouza MD Position: [facility] Physician (General Medicine) Member Role: Lifetime Consulting Physician Address: [address] [place] [address]- Telecom: Name: Eva Covarrubias Position: [facility] Outreach Member Role: Lifetime Consulting Physician Care Team Related Persons Name: MADIE JACKSON Insurance Providers Guarantor name: VIVI JACKSON [facility] Health Plan Information #: 1 Payer: [employer]ONE CARE Member Number: NA Policy Number: NA Group Number: NA
--- OUTSIDE RECORDS SUMMARY | 2024-09-14 13:44 | XMS_ITS | Encounter Summary ---
Author Organization [facility] Address [address] [place] [address] Phone Care Team Providers Care Healthcare Marketer Name Role Phone Ashkan Jacobson MD Primary Care Provider [phone] Encounter Details Date Type Department Care Team (Late st Contact Info) Description 08/21/2023 Documentation Only [facility], [address] [place] [place] [address] Xochilt [place] [address] [place] [address] Social History Tobacco Use Types [...] on filedocumented in this encounter Care Teams Healthcare Marketer Relationship Specialty Start Date End Date Ashkan Jacobson MD [address] [place] [address] [address] [place], [place] PCP - General 03/09/19 documented as of this encounter
--- OUTSIDE RECORDS SUMMARY | 2024-09-14 13:44 | XMS_ITS | Encounter Summary ---
Author Organization [facility] Address [address] 7t [place] [address] Care Team Providers Care Weapons Officer [employer] Name Role Phone Ginette Fortune MD Primary Care Provide r Reason for Visit * Reason Onset Date Comments Hospital Follow-up 05/14/2024 Encounter Details Date Type Department Care Team ([facility] Contact Info) Description 05/14/2024 Telephone [facility] [address] [place] [address] Ginette Fortune MD [address] [place] [address] Hospital Follow-up Social History Tobacco Use Types [...] from pt requesting a HDF appt. Hospital: [facility] Date of admission: 05/09/2024 Discharge date: 05/13/2024 Diagnosed: Kidney problems *Send message to [facility] Clinical Care Coordinators documented in this encounter Plan of Treatment Upcoming Encounters Date Type Department Care Team (Late st Contact Info) Description 12/16/2024 9:15 AM EDT Office Visit [facility] [address] [place] [address] Ginette Fortune MD [address] [place] [address] documented as of this encounter Visit Diagnoses Not on filedocumented in this encounter Additional Health Concerns Assessment Noted Time PHQ-9 Depression Total Score: 0 10/21/19 24 10:02 AM EDT documented as of this encounter Care Teams Weapons Officer [employer] Relationship Specialty Start Date End Date Ginette Fortune MD [address] [place] [address] PCP - General Internal Medicine 10/27/23 documented as of this encounter
--- OUTSIDE RECORDS SUMMARY | 2024-09-14 13:44 | XMS_ITS | Encounter Summary ---
Author Organization [facility] Address [address] [place] [address] Phone Care Team Providers Care Skip Pitman Name Role Phone Ashkan Jacobson MD Primary Care Provider [phone] Encounter Details Date Type Department Care Team (Late st Contact Info) Description 01/06/2024 Documentation Only [facility], [address] [place] [address] Charlotte Mehta [address] [place] [address] Social History Tobacco Use Types [...] on filedocumented in this encounter Care Teams Skip Pitman Relationship Specialty Start Date End Date Ashkan Jacobson MD [address] [place] [address] [address] [place], [place] PCP - General 03/09/19 documented as of this encounter
--- OUTSIDE RECORDS SUMMARY | 2024-09-14 13:44 | XMS_ITS | Encounter Summary ---
Author Organization [facility] Address [address] [place] [address] Phone Care Team Providers Care Closing Coordinator Name Role Phone Ashkan Jacobson MD Primary Care Provider [phone] Encounter Details Date Type Department Care Team (Late st Contact Info) Description 09/18/2021 Documentation Only [facility] [place], [address] [place] [address] Macy Giraldo PA Social History [...] on filedocumented in this encounter Care Teams Closing Coordinator Relationship Specialty Start Date End Date Ashkan Jacobson MD [address] [place] [address] 201 [place], [place] PCP - General 03/09/19 documented as of this encounter
--- OUTSIDE RECORDS SUMMARY | 2024-09-14 13:44 | XMS_ITS | Encounter Summary ---
Author Organization [facility] Address [address] [place] [address] Phone Care Team Providers Care Parking Attendant Name Role Phone Ashkan Jacobson MD Primary Care Provider [phone] Encounter Details Date Type Department Care Team (Late st Contact Info) Description 09/24/2022 Documentation Only [facility] [place], [address] [place] [address] Godfrey Marcum MD [address] [facility] [place] [address] Social History Tobacco Use Types [...] on filedocumented in this encounter Care Teams Parking Attendant Relationship Specialty Start Date End Date Ashkan Jacobson MD [address] [place] [address] 201 [place], [place] PCP - General 03/09/19 documented as of this encounter
== END 2024-09-14 13:25 | disposition home or self-care (01) ==
LOC: HO.HCS 12:41
PROVIDERS: PCP Internal Medicine
DX: R00.2 Palpitations (principal); I10 Essential (primary) hypertension; E78.5 Hyperlipidemia, unspecified; E11.649 Type 2 diabetes mellitus with hypoglycemia without coma
CPT/HCPCS: 99214; G2211

== ENCOUNTER → 2024-09-20 09:40 | Outpatient (REF) | payer OTHER, SELFPAY ==
--- OUTSIDE RECORDS SUMMARY | 2024-09-20 09:59 | XMS_ITS | Encounter Summary ---
Author Organization [facility] Address [address] [address] Care Team Providers Care Mail Carrier Technician Name Role Phone Ginette Fortune MD Primary Care Provide r Reason for Referral * Consultation (Routine) - Authorized Specialty Diagnoses / Procedures Referred By Eula winston Referred To Contact Orthopaedic Surgery Diagnoses Acute pain of left knee Drea Monroy MD [address] [place] [address] Phone: tel: fax: [facility] [address] [place] [address] [place] [address] Phone: tel: fax: Referral ID Status Reason Start Date Expiration Date Visits Requested Visits Authorized [id number] Authorized Specialty Services Required 11/14/2023 11/13/2024 1 1 Encounter Details Date Type Department Care Team (Late st Contact Info) Description 11/14/[address] [facility] [address] [place], [place] [id number] Drea Monroy MD [address] [place], [place] [id number] Acute pain of left knee (Primary Dx) [...] Description 12/16/2024 9:15 AM EDT Office Visit [facility] MEDICINE [address] [place] [address] Ginette Fortune MD [address] [place] [address] Scheduled Referrals Name Type Priority Associated Diagnoses [...] documented as of this encounter Care Teams Mail Carrier Technician Relationship Specialty Start Date End Date Ginette Fortune MD [address] [place] [address] PCP - General Internal Medicine 10/27/23 documented as of this encounter
--- OUTSIDE RECORDS SUMMARY | 2024-09-20 10:00 | XMS_ITS | Encounter Summary ---
Author Organization [facility] Address [facility] [place] [address] Care Team Providers Care Ornamental Rail Installer Name Role Phone Kaley Jacobson MD Primary Care Provider Unavailab le Encounter Details Date Type Department Care Team Description 03/14/2017 Release of Information Medical Records [address] [place] [address] Abstract, Provider Social History Tobacco Use Types [...] on filedocumented in this encounter Care Teams Ornamental Rail Installer Relationship Specialty Start Date End Date Kaley Jacobson MD PCP - General Internal Medicine 03/11/17 documented as of this encounter
--- OUTSIDE RECORDS SUMMARY | 2024-09-20 10:00 | XMS_ITS | Encounter Summary ---
Author Organization [facility] Address [address] [place] [address] Phone Care Team Providers Care Asbestos Worker Helper Name Role Phone Ashkan Jacobson MD Primary Care Provider [phone] Encounter Details Date Type Department Care Team (Late st Contact Info) Description 02/04/2024 Documentation Only [facility] [place], [address] [place] [address] Xochilt Crawford [place] [address] [place] [address] Social History Tobacco Use Types [...] on filedocumented in this encounter Care Teams Asbestos Worker Helper Relationship Specialty Start Date End Date Ashkan Jacobson MD [address] [place] [address] 201 [place], [place] PCP - General 03/09/19 documented as of this encounter
--- OUTSIDE RECORDS SUMMARY | 2024-09-20 10:00 | XMS_ITS | Encounter Summary ---
Author Organization [facility] Address [address] [place] [address] Phone Care Team Providers Care Financial Services Technician Name Role Phone Ashkan Jacobson MD Primary Care Provider [phone] Encounter Details Date Type Department Care Team (Late st Contact Info) Description 06/19/2021 Documentation Only [facility] [place], [address] [place] [address] Macy Giraldo PA Social History [...] on filedocumented in this encounter Care Teams Financial Services Technician Relationship Specialty Start Date End Date Ashkan Jacobson MD [address] [place] [address] 201 [place], [place] PCP - General 03/09/19 documented as of this encounter
--- OUTSIDE RECORDS SUMMARY | 2024-09-20 10:00 | XMS_ITS | Clinical Summary ---
Author Organization [facility] Address [address] [place] [address] Care Team Providers Care Tunnel Man Name Role Phone Kaley Jacobson MD Primary Care Provider [phone] Surgical History Surgery Date Site/Laterality Comments TOTAL KNEE ARTHROPLASTY 2009 PROCEDURE: [facility] ARTHRP KNE CONDYLE&PLATU MEDIAL&LAT COMPARTMENTS CHOLECYSTECTOMY PROCEDURE: [facility] LAPAROSCOPY SURG CHOLECYSTECTOMY SECTION PROCEDURE: HISTORICAL OTHER [...] Continued pain 03/2017, seeking 2nd opinion at [facility] History of CVA (cerebrovascu lar accident) 06/06/2017 [...] age to complete this topic Care Teams Tunnel Man Relationship Specialty Start Date End Date Kaley Jacobson MD [address] [place] [id number] PCP - General Internal Medicine 03/11/17
--- OUTSIDE RECORDS SUMMARY | 2024-09-20 10:00 | XMS_ITS | Encounter Summary ---
Author Organization [facility] Address [facility] [place] [address] Care Team Providers Care Irrigation Pump Installer Name Role Phone Kaley Jacobson MD Primary Care Provider Unavailab le Encounter Details Date Type Department Care Team Description 11/18/2017 Release of Information Medical Records [address] [place] [id number] Abstract, Provider Social History Tobacco Use Types [...] on filedocumented in this encounter Care Teams Irrigation Pump Installer Relationship Specialty Start Date End Date Kaley Jacobson MD PCP - General Internal Medicine 03/11/17 documented as of this encounter
--- OUTSIDE RECORDS SUMMARY | 2024-09-20 10:00 | XMS_ITS | Encounter Summary ---
Author Organization [facility] Address [address] [place] [address] Phone Care Team Providers Care Envelope Machine Adjuster Name Role Phone Ashkan Jacobson MD Primary Care Provider [phone] Encounter Details Date Type Department Care Team (Late st Contact Info) Description 04/04/2022 Documentation Only [facility] [place], [address] [place] [address] Macy Giraldo PA Social History [...] on filedocumented in this encounter Care Teams Envelope Machine Adjuster Relationship Specialty Start Date End Date Ashkan Jacobson MD [address] [place] [address] [address] [place], [place] PCP - General 03/09/19 documented as of this encounter
--- OUTSIDE RECORDS SUMMARY | 2024-09-20 10:00 | XMS_ITS | Encounter Summary ---
Author Organization [facility] Address [address] [place] [address] Phone Care Team Providers Care Mat Man Name Role Phone Ashkan Jacobson MD Primary Care Provider [phone] Encounter Details Date Type Department Care Team (Late st Contact Info) Description 09/24/2022 Documentation Only [facility] [place], [address] [place] [address] Godfrey Marcum MD [address] [facility] [place] [address] Social History Tobacco Use Types [...] on filedocumented in this encounter Care Teams Mat Man Relationship Specialty Start Date End Date Ashkan Jacobson MD [address] [place] [address] [address] [place], [place] PCP - General 03/09/19 documented as of this encounter
--- OUTSIDE RECORDS SUMMARY | 2024-09-20 10:00 | XMS_ITS | Encounter Summary ---
Author Organization [facility] Address [address] [place] [address] Phone Care Team Providers Care Technical Support Analyst Name Role Phone Ashkan Jacobson MD Primary Care Provider [phone] Encounter Details Date Type Department Care Team (Late st Contact Info) Description 12/18/2021 Documentation Only [facility] [place], [address] [place] [address] Macy Giraldo PA Social History [...] on filedocumented in this encounter Care Teams Technical Support Analyst Relationship Specialty Start Date End Date Ashkan Jacobson MD [address] [place] [address] [address] [place], [place] PCP - General 03/09/19 documented as of this encounter
--- OUTSIDE RECORDS SUMMARY | 2024-09-20 10:00 | XMS_ITS | Encounter Summary ---
Author Organization [facility] Address [address] [place] [address] Phone Care Team Providers Care Forgeman Helper Name Role Phone Ashkan Jacobson MD Primary Care Provider Encounter Details Date Type Department Care Team (Late st Contact Info) Description 12/19/2023 Documentation Only [facility] [place], [address] [place] [address] Xochilt Crawford [place] [address] [place] [address] Social History Tobacco Use Types [...] on filedocumented in this encounter Care Teams Forgeman Helper Relationship Specialty Start Date End Date Ashkan Jacobson MD [address] [place] [address] [address] [place], [place] PCP - General 03/09/19 documented as of this encounter
--- OUTSIDE RECORDS SUMMARY | 2024-09-20 10:00 | XMS_ITS | Encounter Summary ---
Author Organization [facility] Address [address] [place] [address] Phone Care Team Providers Care Hand Tier Name Role Phone Ashkan Jacobson MD Primary Care Provider [phone] Encounter Details Date Type Department Care Team (Late st Contact Info) Description 09/28/2021 Documentation Only [facility] [place], [address] [place] [address] Macy Giraldo PA Social History [...] on filedocumented in this encounter Care Teams Hand Tier Relationship Specialty Start Date End Date Ashkan Jacobson MD [address] [place] [address] [address] [place], [place] PCP - General 03/09/19 documented as of this encounter
--- OUTSIDE RECORDS SUMMARY | 2024-09-20 10:00 | XMS_ITS | Encounter Summary ---
Author Organization [facility] Address [address] [place] [address] Phone Care Team Providers Care Biosecurity Officer Name Role Phone Ashkan Jacobson MD Primary Care Provider [phone] Encounter Details Date Type Department Care Team (Late st Contact Info) Description 08/04/2023 Documentation Only [facility] [place], [address] [place] [address] Xochilt Crawford [place] [address] [place] [address] Social History Tobacco Use Types [...] on filedocumented in this encounter Care Teams Biosecurity Officer Relationship Specialty Start Date End Date Ashkan Jacobson MD [address] [place] [address] [address] [place], [place] PCP - General 03/09/19 documented as of this encounter
--- OUTSIDE RECORDS SUMMARY | 2024-09-20 10:00 | XMS_ITS | Encounter Summary ---
Author Organization [employer] Address [address] [facility] 7[address] [place] [address] Care Team Providers Care Supervisor Filling And Packing Name Role Phone Ginette Fortune MD Primary Care Provide r Reason for Visit * Reason Onset Date Comments Hospital Follow-up 05/14/2024 Encounter Details Date Type Department Care Team ([facility] Contact Info) Description 05/14/2024 Telephone [facility] MEDICINE [address] [place] [address] Ginette Fortune MD [address] [place] [address] Hospital Follow-up Social History Tobacco Use Types [...] from pt requesting a HDF appt. Hospital: [facility] Date of admission: 05/09/2024 Discharge date: 05/13/2024 Diagnosed: Kidney problems *Send message to [place] Clinical Care Coordinators documented in this encounter Plan of Treatment Upcoming Encounters Date Type Department Care Team (Late st Contact Info) Description 12/16/2024 9:15 AM EDT Office Visit [facility] MEDICINE [address] [place] [address] Ginette Fortune MD [address] [place] [address] documented as of this encounter Visit Diagnoses Not on filedocumented in this encounter Additional Health Concerns Assessment Noted Time PHQ-9 Depression Total Score: 0 10/21/19 24 10:02 AM EDT documented as of this encounter Care Teams Supervisor Filling And Packing Relationship Specialty Start Date End Date Ginette Fortune MD [address] [place] [address] PCP - General Internal Medicine 10/27/23 documented as of this encounter
--- OUTSIDE RECORDS SUMMARY | 2024-09-20 10:00 | XMS_ITS | Encounter Summary ---
Author Organization [facility] Address [address] [place] [address] Phone Care Team Providers Care Player Piano Technician Name Role Phone Ashkan Jacobson MD Primary Care Provider [phone] Encounter Details Date Type Department Care Team (Late st Contact Info) Description 07/23/2023 Documentation Only [facility] [place], [address] [place] [address] Xochilt Crawford [place] [address] [place] [address] Social History Tobacco Use Types [...] on filedocumented in this encounter Care Teams Player Piano Technician Relationship Specialty Start Date End Date Ashkan Jacobson MD [address] [place] [address] [address] [place], [place] PCP - General 03/09/19 documented as of this encounter
--- OUTSIDE RECORDS SUMMARY | 2024-09-20 10:00 | XMS_ITS | Encounter Summary ---
Author Organization [facility] Address [facility] [place] [address] Care Team Providers Care Director Of Slot Operations Name Role Phone Kaley Jacobson MD Primary Care Provider Unavailab le Encounter Details Date Type Department Care Team Description 05/02/2017 Transfer Records Medical Records [address] [place] [id number] Abstract, Provider Social History Tobacco Use Types [...] Kaley Jacobson sent to Carlotta Suarez R.N. Lean Six Sigma Senior Specialist. documented in this encounter Plan of Treatment Not on file documented as of this encounter Visit Diagnoses Not on filedocumented in this encounter Care Teams Director Of Slot Operations Relationship Specialty Start Date End Date Kaley Jacobson MD PCP - General Internal Medicine 03/11/17 documented as of this encounter
--- OUTSIDE RECORDS SUMMARY | 2024-09-20 10:00 | XMS_ITS | Encounter Summary ---
Author Organization [facility] Address [address] [place] [address] Phone Care Team Providers Care Middle School Director Name Role Phone Ashkan Jacobson MD Primary Care Provider [phone] Encounter Details Date Type Department Care Team (Late st Contact Info) Description 08/21/2023 Documentation Only [facility] [place], [address] [place] [address] Xochilt Crawford [place] [address] [place] [address] Social History Tobacco Use Types [...] on filedocumented in this encounter Care Teams Middle School Director Relationship Specialty Start Date End Date Ashkan Jacobson MD [address] [place] [address] [address] [place], [place] PCP - General 03/09/19 documented as of this encounter
--- OUTSIDE RECORDS SUMMARY | 2024-09-20 10:00 | XMS_ITS | Encounter Summary ---
Author Organization [facility] Address [address] [place] [address] Phone Care Team Providers Care Blind Aide Name Role Phone Ashkan Jacobson MD Primary Care Provider [phone] Encounter Details Date Type Department Care Team (Late st Contact Info) Description 08/28/2023 Documentation Only [facility] [place], [address] [place] [address] Xochilt Crawford [place] [address] [place] [address] Social History Tobacco Use Types [...] on filedocumented in this encounter Care Teams Blind Aide Relationship Specialty Start Date End Date Ashkan Jacobson MD [address] [place] [address] [address] [place], [place] PCP - General 03/09/19 documented as of this encounter
--- OUTSIDE RECORDS SUMMARY | 2024-09-20 10:00 | XMS_ITS | Encounter Summary ---
Author Organization [facility] Address [address] [place] [address] Phone Care Team Providers Care Transportation Department Supervisor Name Role Phone Ashkan Jacobson MD Primary Care Provider [phone] Encounter Details Date Type Department Care Team (Late st Contact Info) Description 07/30/2023 Documentation Only [facility] [place], [address] [place] [address] Xochilt Crawford [place] [address] [place] [address] Social History Tobacco Use Types [...] on filedocumented in this encounter Care Teams Transportation Department Supervisor Relationship Specialty Start Date End Date Ashkan Jacobson MD [address] [place] [address] [address] [place], [place] PCP - General 03/09/19 documented as of this encounter
--- OUTSIDE RECORDS SUMMARY | 2024-09-20 10:00 | XMS_ITS | Encounter Summary ---
Author Organization [facility] Address [address] [place] [address] Phone Care Team Providers Care Sales Project Coordinator Name Role Phone Ashkan Jacobson MD Primary Care Provider [phone] Encounter Details Date Type Department Care Team (Late st Contact Info) Description 09/18/2021 Documentation Only [facility] [place], [address] [place] [address] Macy Giraldo PA Social History [...] filedocumented in this encounter Care Teams Sales Project Coordinator Relationship Specialty Start Date End Date Ashkan Jacobson MD [address] [place] [address] [address] [place], [place] PCP - General 03/09/19 documented as of this encounter
--- OUTSIDE RECORDS SUMMARY | 2024-09-20 10:00 | XMS_ITS | Encounter Summary ---
Author Organization [facility] Address [address] [place] [address] Phone Care Team Providers Care Regional Clinical Research Associate Name Role Phone Ashkan Jacobson MD Primary Care Provider [phone] Encounter Details Date Type Department Care Team (Late st Contact Info) Description 01/06/2024 Documentation Only [facility] [place], [address] [place] [address] Charlotte Mehta [address] [place] [address] Social History Tobacco Use [...] on filedocumented in this encounter Care Teams Regional Clinical Research Associate Relationship Specialty Start Date End Date Ashkan Jacobson MD [address] [place] [address] [address] [place], [place] PCP - General 03/09/19 documented as of this encounter
--- OUTSIDE RECORDS SUMMARY | 2024-09-20 10:00 | XMS_ITS | Clinical Summary ---
Author Organization [facility] [place], Address [address] [place] [address] [place] [address] Phone Care Team Providers Care Cutter Hand Name Role Phone Ashkan Jacobson MD Primary Care Provider [phone] Allergies Active Allergy Reactions Criticality Noted Date [...] AM EDT) Hemoglobin A1C 6.7(H) (4.0-5.6) % [facility] Comment: MONITORING: In known diabetic patients, hemoglobin A1c targets should be discussed with health care provider. DIAGNOSTIC USE: ??The [place] Diabetes Association (ADA) and the World Health [...] Supplement 1 Testing performed or reported by [facility], a Service of [facility], [address] [place] [id number] Familia Britton MD, Wood Grainer [facility]# [id number] Blood (Blood, Venous) 02/05/2023 10:48 AM EDT 02/05/2023 10:49 AM EDT Godfrey Marcum MD LAB BLOOD ORDERABLES Final Re sult [facility] from Last 3 Months or Most Recently Relevant to Health Maintenance Insurance [facility] Care Dual SNP ([id number]) [place] [id number] Care Teams Cutter Hand Relationship Specialty Start Date End Date Ashkan Jacobson MD [address] [place] [address] PCP - General 03/09/19
--- OUTSIDE RECORDS SUMMARY | 2024-09-20 10:00 | XMS_ITS | Encounter Summary ---
Author Organization [facility] Address [address] [place] [address] Phone Care Team Providers Care Cardiovascular Rn Name Role Phone Ashkan Jacobson MD Primary Care Provider [phone] Encounter Details Date Type Department Care Team (Late st Contact Info) Description 02/17/2024 Documentation Only [facility] [place], [address] [place] [address] Xochilt Crawford [place] [address] [place] [address] Social History Tobacco Use Types [...] on filedocumented in this encounter Care Teams Cardiovascular Rn Relationship Specialty Start Date End Date Ashkan Jacobson MD [address] [place] [address] [address] [place], [place] PCP - General 03/09/19 documented as of this encounter
--- OUTSIDE RECORDS SUMMARY | 2024-09-20 10:00 | XMS_ITS | Clinical Summary ---
Author Organization [employer] Address [address] [facility] 7 [place] [address] Care Team Providers Care Administration Vice President Name Role Phone Ginette Fortune MD Primary [...] for anxiety. 02/23/20 24 Active Continuous Glucose Trend Investigator (FreeStyle Jame 2 [place]) device 02/06/20 24 Active docusate sodium (Colace) [...] tablet 11 10/21/19 24 025 Discontinued hydroCHLOROthiaz amtheus 12.5 MG tabletIndication s:Resistant hypertension Take 1 [...] Thyroid nodule 01/27/2024 Type 2 diabetes mellitus, [facility] long-term current use of insulin 10/21/2023 Assessment [...] weight management Griffin Cuellar NP (located on [address] [place] [address] phone [phone]) Diabetes is: controlled - Lab Results Component [...] and psychiatrist Keiko Philippe located on [address] [place] [address] phone [phone] it is being prescribed for her trazodone, [...] Encounters Date Type Department Care Team Description 09/14/2024 Orders Only GENERIC EXTERNAL DATA DEPARTMENT Provider, Generic External Data 09/13/2024 9:00 AM EDT Office Visit [facility] [address] [place] [phone] Ginette Fortune MD Type 2 diabetes mellitus with stage 3 chronic kidney disease, without long-term current use of insulin, unspecified whether stage 3a or 3b CKD (CMS/HCC) (Primary Dx); Resistant hypertension; Chronic elbow pain, right 09/13/2024 Travel 09/09/2024 Telephone [facility] [address] [place] [phone] Ginette Fortune MD Chart Prep 09/07/2024 Telephone [facility] [address] [place] [address] [phone] Viet Bowman MD 09/07/2024 Travel 09/06/2024 Patient Outreach [facility] [address] [facility] [place] [address] Ginette Fortune MD Pre-visit Planning ([facility] unable to reach LVM) 08/18/2024 Orders Only GENERIC EXTERNAL DATA DEPARTMENT Provider, Generic External Data 08/16/2024 Orders Only [facility] External Provider, [facility] from Last 3 Months Immunizations Immunization Administration Dates Next Due Influenza Injectable Quadriv [...] 36.3 ??C (97.4 ??F) 09/13/2024 9:09 AM EDT Respiratory Rate 16 09/13/2024 9:09 AM EDT [...] Description 12/16/2024 9:15 AM EDT Office Visit [facility] [address] [place] [address] Ginette Fortune MD [address] [place] [address] Health Maintenance Due Date Last Done Comments [...] Exam 10/20/2024 10/21/2023, SDOH Screening 10/20/2024 10/21/2023 Mammogram 03/09/2025 03/09/2024 Tobacco Screening 06/15/2025 06/15/2024 Lipid Panel 09/14/2025 09/14/2024, 01/27/2024 DTaP/Tdap/Td Vaccines (2 - Td or Tdap) [...] Procedure Name Priority Date/Time Associated Diagnosis Comments TSH W/REFLEX TO FT4 Routine 09/14/2024 1 :48 PM EDT TSH Routine 09/14/2024 1:48 PM EDT T4, FREE Routine 09/14/2024 1:48 PM EDT LIPID PANEL, STANDARD Routine 09/14/2024 1:48 PM EDT BASIC METABOLIC PANEL Routine 09/14/2024 1:48 PM EDT GLUCOSE, WHOLE BLOOD Routine 08/18/2024 1:23 PM [...] Routine 01/27/2024 10:22 AM EDT Healthcare maintenance from Last 3 Months or Most Recently Relevant to Health Maintenance Results * (ABNORMAL) TSH with Reflex to Free T4 (09/14/2024 1:48 PM EDT) TSH reflex Free T4 0.19(L) 0.32 - 4.0 uIU/mL [facility] 09/14/2024 1:48 PM EDT 09/14/2024 1:48 PM EDT us Generic External Data Provider LAB BLOOD ORDERAB LES Final Result Performing Organization Address [facility]/ZIP Co de Phone Number [facility] [address] [place] [phone] * (ABNORMAL) TSH (09/14/2024 1:48 PM EDT) Thyroid Stimulating Hormone 0.19(L) 0.32 - 4.0 uIU/mL [facility] Comment:TSH 3rd Generation ( [facility]) 09/14/2024 1:48 PM EDT 09/14/2024 1:48 PM EDT Generic External Data Provider LAB BLOOD ORDERAB LES Final Result Performing Organization Address [facility] Co de Phone Number [facility] [address] [place] [phone] * T4, Free (09/14/2024 1:48 PM EDT) Free T4 (Free Thyroxine) 0.87 0.71 - 1.85 ng/dL [facility] 09/14/2024 1:48 PM EDT 09/14/2024 1:48 PM EDT Generic External Data Provider LAB BLOOD ORDERAB LES Final Result Performing Organization Address [facility]/ZIP Co de Phone Number [facility] [address] [place] [phone] * (ABNORMAL) Lipid Panel, Standard (09/14/2024 1:48 PM EDT) Triglycerides 172(H) <150 mg/dL [facility] Comment:Desirable Triglyceri de: less than 150 mg/dLBorderline High Triglyceride 150-199 mg/dLHigh Triglyceride: 200-499 mg/dLVery High Triglyceride: greater than or equal to 5OO mg/dL Cholesterol 227(H) <200 mg/dL [facility] Comment:Desirable Cholestero l: less than 200 mg/dLBorderline High Cholesterol: 200-239 mg/dLHigh Cholesterol: greater than 239 mg/dL LDL Cholesterol Calculated 136(H) <100 mg/dL [facility] Comment:Desirable LDL: less than 100 mg/dLNear Optimal/Above Optimal LDL: 110- 129 mg/dLBorderline High LDL: 130-159 mg/dLHigh LDL: 160-189 mg/dLVery High LDL: greater than or equal to 190 mg/dL HDL Cholesterol 57 >40 mg/dL [facility] Comment:Desirable HDL: great er than 40 mg/dL Note: This HDL assay may give artificially low results in patients with liver disease. 09/14/2024 1:48 PM EDT 09/14/2024 1:48 PM EDT us Generic External Data Provider LAB BLOOD ORDERAB LES Final Result [facility] [address] [place] [phone] * (ABNORMAL) Basic Metabolic Panel (09/14/2024 1:48 PM EDT) Sodium 144 135 - 145 mmol/L [facility] Potassium 4.2 3.3 - 5.1 mmol/L [facility] Chloride 106 96 - 108 mmol/L [facility] Carbon Dioxide 27 22 - 29 mmol/L [facility] Anion Gap 15 12 - 20 [facility] Urea Nitrogen (BUN) 22(H) 9 - 16 mg/dL [facility] Creatinine, Serum 1.23 0.5 - 1.4 mg/dL [facility] Estimated Glomerular Filt Rate 44 [facility] Comment:Chronic Kidney Disea se: Estimated GFR < 60 mL/min/1.51w5Zzorta Kidney Disease: Estimated GFR < 15 mL/min/1.73m2 Glucose 93 60 - 115 mg/dL [facility] Calcium 9.7 8.4 - 10.2 mg/dL [facility] 09/14/2024 1:48 PM EDT 09/14/2024 1:48 PM EDT us Generic External Data Provider LAB BLOOD ORDERAB LES Final Result Performing Organization Address [facility] Co de Phone Number [facility] [address] [place] [phone] * (ABNORMAL) Glucose, Whole Blood (08/18/2024 1:23 PM EDT) Glucose, Whole Blood 188(H) 60 - 115 mg/dL [facility] Comment:METER #: [id number] Testing performed in the Endocrinology Department [address] , [address], [facility]. 08/18/2024 1:23 PM EDT 08/18/2024 1:27 PM EDT us Generic External Data Provider LAB BLOOD ORDERAB LES Final Result Performing Organization Address [facility] Co de Phone Number [facility] [address] [place] [phone] * US RENAL BI (08/16/2024 4:39 PM EDT) Anatomical Region Laterality Modality Abdomen Ultrasound 08/16/2024 4:39 PM EDT Narrative 08/16/2024 4:41 PM EDT ? [facility] ?[address] ?[place] [address] ? Ultrasound Report ? Signed ? Patient: Iverson,Rosie ?MR#: [id number] ? : 1960 ?Acct:[id number] ? Age/Sex: 64 / F ?ADM Date: 04/14/25 ? Loc: HO.US ? Attending Dr: Renato Bloom MD ? Ordering Physician: Renato Bloom MD ?? Date of Service: 08/16/24 ?? Procedure(s): US renal BI ?? Accession Number(s): [id number] ? cc: Ginette Fortune MD; Renato Bloom [...] DD/ 1639 ? TD/TT: 08/16/24 1639 ? [employer]: ? Procedure Note Prabhakar, Image - 08/16/2024 [place] [address] Ultrasound Report Signed Patient: Jovani Iverson#: [id number] : 2Acct:[id number] Age/Sex: 64 / FADM Date: 08/16/24 Loc: HO.US Attending Dr: Renato Bloom MD Ordering Physician: Renato Bloom MD Date of Service: 08/16/24 Procedure(s): US renal BI Accession Number(s): [id number] cc: Ginette Fortune MD; Renato Bloom MD [...] 08/16/24 1640 DD/ 1639 TD/TT: 08/16/24 1639 [employer]: [facility] External Provider IMG US PROCEDURES Edited Result - Final * (ABNORMAL) POCT HGB A1C (04/14/2024 10:13 AM EST) Hemoglobin A1C 6.5(A) 4.0 - 6.0 % QC Media Lot # [id number] Lot# Expiration Date [id number] Blood 04/14/2024 10:1 3 AM EST Ginette Freeman MD POINT OF CARE TEST EN TER/EDIT ORDERABLES Final Result * BI Mammogram Screening Tomosynthesis Bilateral (03/09/2024 1:20 PM EST) Anatomical Region Laterality Modality Breast Bilateral Mammography 03/09/2024 1:20 PM EST Narrative 03/17/2024 1:55 PM EST ? [facility] ? [address] ?[place] [address] ? Mammography Report ? Signed ? Patient: Iverson,Rosie ?MR#: [id number] ? : 1960 ?Acct:[id number] ? Age/Sex: 63 / F ?ADM Date: 03/09/24 ? Loc: HO.MAMMO ? Attending Dr: Ginette Freeman MD ? Ordering Physician: Ginette Fortune MD ?Results: ?? 1Negative ? Date of Service: 03/09/24 ?Follow Up: 1 Year From Orig ?? inal Mammogram ? Procedure(s): MM tomosynthesis screening BI ?? Accession Number(s): [id number] ? cc: Ginette Fortune MD ? EXAMINATION: [...] DD/ 1320 ? TD/TT: 03/09/24 1335 ? [employer]: ? Procedure Note Donotuseinterpreter, Image - 03/17/2024 [facility] [address] [place] [address] Mammography Report Signed Patient: Jovani Iverson#: [id number] : 2Acct:[id number] Age/Sex: 63 / FADM Date: 03/09/24 Loc: HO.MAMMO Attending Dr: Ginette Freeman MD Ordering Physician: Ginette Fortune MDResults: 1Negative Date of Service: 03/09/24Follow Up: 1 Year From Orig inal Mammogram Procedure(s): MM tomosynthesis screening BI Accession Number(s): [id number] cc: Ginette Fortune MD EXAMINATION: MM SCREENING [...] by: Amy Lu DO 03/17/2024 01:52 PM [facility] Dictated By: Amy Lu DO Signed By: <Electronically signed by Amy Lu DO in OV> 03/17/24 1352 DD/ 1320 TD/TT: 03/09/24 1335 [employer]: us Ginette Freeman MD IMG BI PROCEDURES Fin al Result * Hepatitis C Antibody with Reflex to HCV, RNA, Quantitative, Real-Time PCR (01/27/2024 10:22 AM EDT) Hepatitis C Antibody Nonreactive Nonreactive [facility] Comment:Antibodies to HCV no t detected; does not exclude early acuteHCV infection. Blood Venous blood specimen / Unknown 01/27/2024 10:22 AM EDT 01/27/2024 11:20 AM EDT us Ginette Freeman MD LAB BLOOD ORDERABLES Final Result [facility] [address] [place] [phone] from Last 3 Months or Most Recently Relevant to Health Maintenance Insurance [facility] < [address] [place] [id number] Care Teams Administration Vice President Relationship Specialty Start Date End Date Ginette Fortune MD [address] [place] [address] PCP - General Internal Medicine 10/27/23
--- OUTSIDE RECORDS SUMMARY | 2024-09-20 10:00 | XMS_ITS | Encounter Summary ---
Author Organization [facility] Address [address] [place] [address] Phone Care Team Providers Care Piping Blocker Name Role Phone Ashkan Jacobson MD Primary Care Provider [phone] Encounter Details Date Type Department Care Team (Late st Contact Info) Description 03/22/2021 Documentation Only [facility], [address] [place] [address] Macy Giraldo PA Social [...] on filedocumented in this encounter Care Teams Piping Blocker Relationship Specialty Start Date End Date Ashkan Jacobson MD [address] [place] [address] [address] [place], [place] PCP - General 03/09/19 documented as of this encounter
--- OUTSIDE RECORDS SUMMARY | 2024-09-20 10:00 | XMS_ITS | Encounter Summary ---
Author Organization [facility] Address [address] [place] [address] Phone Care Team Providers Care Bean Picker Name Role Phone Ashkan Jacobson MD Primary Care Provider [phone] Encounter Details Date Type Department Care Team (Late st Contact Info) Description 07/21/2023 Documentation Only [facility], [address] [place] [address] [place] [address] [place] [address] Social History Tobacco Use Types [...] on filedocumented in this encounter Care Teams Bean Picker Relationship Specialty Start Date End Date Ashkan Jacobson MD [address] [place] [address] [address] [place], [place] PCP - General 03/09/19 documented as of this encounter
== END ==
LOC: HO.CARD 09:40
PROVIDERS: PCP Internal Medicine
DX: R00.2 Palpitations (principal)
CPT/HCPCS: 93242

== ENCOUNTER → 2024-09-20 09:43 | Outpatient (BNV) | payer OTHER, SELFPAY | PROVIDERS: PCP Internal Medicine; Visit Provider Internal Medicine | DX: I47.10 Supraventricular tachycardia, unspecified (principal) | CPT/HCPCS: 93244 ==

== ENCOUNTER 2024-09-22 10:41 | Emergency (ER) | payer OTHER, SELFPAY ==
--- NOTE | ~2024-09-22 | XR_ITS ---
EXAMINATION: XR ELBOW, RIGHT CLINICAL INFORMATION: fall, pain COMPARISON: None available. TECHNIQUE: AP, lateral, and oblique views of the right elbow. FINDINGS: The bones and soft tissues are normal. No fracture or joint effusion. Alignment is anatomic. Joint spaces are maintained. XR/XR elbow RT 2V IMPRESSION: Normal right elbow. Electronically signed by: Jae Isidro MD 09/22/2024 12:14 PM EDT
[2024-09-22 10:52] VITALS: BP 141/81; PULSE 98; RESP 18; TEMP 36.6; O2SAT 98; BMI 31.0
--- NOTE | 2024-09-22 11:44 | ED_ITS ---
HPI - Extremity Problem General Chief complaint: Extremity Injury, Upper Stated complaint: Fall- R Arm Injury Time Seen by Provider: 09/22/24 12:39 Source: patient, RN notes reviewed and old records reviewed Mode of arrival: ambulatory History of Present Illness ED Provider: Abby Alejandro PA-C HPI Narrative: 64-year-old female with a past medical history anxiety, depression, GERD, diabetes, HLD, CKD, presenting to the ED complaining of right elbow pain s/p mechanical trip and fall yesterday s/p knees giving out. States fell to ground onto right elbow, denies head trauma or LOC. Denies symptoms prior to fall including lightheadedness/dizziness, CP/SOB. Denies numbness, tingling, weakness, injury to other area Related Data Home Medications ?Medication ?Instructions ?Recorded ?Confirmed amlodipine 10 mg tablet 10 mg PO DAILY 02/05/20 09/14/24 fluticasone propionate 50 1 spray intranasal DAILY PRN nasal 07/19/20 09/14/24 mcg/actuation nasal congestion spray,suspension blood sugar diagnostic 08/29/22 09/14/24 blood-glucose meter (OneTouch #1 ea 08/29/22 09/14/24 Ultra2 Meter) fluoxetine 40 mg capsule 40 mg PO DAILY 08/29/22 09/14/24 trazodone 50 mg tablet 50 - 150 mg PO BEDTIME PRN Sleep 08/29/22 09/14/24 lisinopril 40 mg tablet 40 mg PO DAILY 01/28/24 09/14/24 hydrochlorothiazide 12.5 mg tablet 12.5 mg PO DAILY 06/07/24 09/14/24 Previous Rx's ?Medication ?Instructions ?Recorded lancets #100 ea 08/20/22 pen needle, diabetic 32 gauge x #30 ea 08/30/2209/17 (Comfort EZ Pen [place]) blood sugar diagnostic (OneTouch #100 ea 09/16/22 Ultra Test strips) sennosides 8.6 mg tablet (senna) 8.6 mg PO DAILY #90 tabs 12/03/22 flash glucose sensor (FreeStyle #2 ea 02/20/23 Jame 2 Sensor kit) docusate sodium 100 mg capsule 100 mg PO BID #90 caps 01/19/24 FreeStyle Jame 2 [place] (flash #1 ea 01/28/24 glucose scanning reader) oxycodone 5 mg tablet 5 mg PO Q6H PRN pain #20 tabs 06/01/24 Mounjaro 2.5 mg/0.5 mL 2.5 mg (0.5 mL) subcut QWEEK #2 mL 08/25/24 subcutaneous pen injector (tirzepatide) FreeStyle Jame 3 Plus Sensor #6 ea 09/08/24 (blood-glucose sensor) FreeStyle Jame 3 [place] #1 ea 09/08/24 (blood-glucose,frame assembler,cont) atorvastatin 40 mg tablet 40 mg PO BEDTIME #30 tabs 09/15/24 Allergies Allergy/AdvReac Type Severity Reaction Status Date / Time latex [LATEX] Allergy Mild RASH Verified 09/22/24 10:56 metformin AdvReac Unknown Verified 09/22/24 10:56 Review of Systems Review of Systems: Yes all other systems are reviewed and are negative Constitutional: Constitutional: Reports as per [facility] Past Medical History Attestation statement: The following information was validated with the patient. 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 Distal radius fracture, right HTN (hypertension) Chronic kidney disease Diabetes type 2, uncontrolled Surgical History History of abdominoplasty History of surgery S/P fine needle aspiration S/P laparoscopic sleeve gastrectomy History of esophagogastroduodenoscopy (EGD) H/O colonoscopy Hx of biopsy History of partial hysterectomy History of total right knee replacement History of total left knee replacement (~2010) Hx of cholecystectomy History of section History of carpal tunnel release (~2017) Family History Family History Father Hypertension Diabetes History of kidney cancer Mother Diabetes Hypertension Heart disease Brother Hypertension Diabetes Brother No problems noted. Son Hypertension Prediabetes Heart disease Daughter Prediabetes Social History Social History Household Members: Spouse Housing: Apartment Are you a primary home care scheduler to a significant other at home: No Do you presently have visiting nurse or other home services: No Alcohol intake: never Patient Tobacco Use Status: Never used Tobacco service: No Physical Exam Vital Signs: Vital Signs: Last Vital Signs Temp 97.9 F 09/22/24 10:52 Pulse 98 09/22/24 10:52 Resp 18 09/22/24 10:52 BP 141/81 H 09/22/24 10:52 Pulse Ox 98 09/22/24 10:52 O2 Del Method Room Air 09/22/24 10:52 BMI result Body Mass Index 31.0 Const: General: cooperative, healthy appearing and no acute distress Orientation/consciousness: patient oriented x3 Limitations: no limitations HEENT: Head: Yes normal to inspection and Yes atraumatic Ears: hearing grossly normal bilaterally General nose exam: Normal external nose present Face and sinus: Yes normal facial exam Eyes: General: appearance normal, both eyes and all related structures EOM: EOMs intact bilaterally Neck: Neck: Yes normal visual inspection and Yes no meningeal signs Resp: Effort & Inspection: normal respiratory effort and no respiratory distress Cardio: Rate: regular rate Skin: Rashes: no rashes Wounds: no wounds Neuro: General: patient oriented x3, tone normal and no meningeal signs Cranial nerves: Yes CN's II-XII intact bilaterally Gait exam (Neuro): Normal gait present Extrem: Other: Right elbow without appreciable deformity/swelling or ecchymosis. Tender to palpation. ROM intact with some discomfort. Pronation/supination intact. Neurovascularly intact distally. No pitting edema General: Yes normal to inspection Course Course Course Narrative: This is a Rapid Medical Exam performed in triage by Abby Alejandro PA-C. Full HPI, ROS and PE to be performed by primary ED provider. 64-year-old Macedonian-speaking female with a past medical history anxiety, depression, GERD, HTN, HLD, diabetes presenting to the ED c/o right elbow pain s/p mechanical trip and fall yesterday after knees gave out falling onto right elbow, denies head trauma or LOC. denies symptoms prior to fall PE: R elbow with reproducible tenderness. Pain with ROM. Plan: X-ray XR elbow RT 2V IMPRESSION: Normal right elbow. Results discussed with patient including worrisome signs and symptoms and strict return precautions, and when to return to the emergency department. They verbalized understanding and feel safe for discharge at this time. Medical Decision Making Medical Decision Making MDM Narrative: 64-year-old female with a past medical history anxiety, depression, GERD, diabetes, HLD, CKD, presenting to the ED complaining of right elbow pain s/p mechanical trip and fall yesterday s/p knees giving out. On exam vital signs stable, NAD, nontoxic appearing, physical exam as noted above. Concern for f racture vs sprain vs contusion. Low suspicion for DVT Plan: X-rays Please refer to course for remaining clinical decision making, interpretation of labs/imaging results, and discussions with consultants and/or family members. Differential Diagnosis Differential Diagnoses: The differential diagnosis associated with the presentation includes As above Independent Interpretation I performed an independent interpretation of an: Plain X-Ray Radiology Impression Discussion of test interpretation with radiology: I have reviewed the radiologist's reading. Independent Historian Clinical information obtained from an independent historian. History obtained from or confirmed by: Spouse External Record Review External record reviewed: Inpatient record, Office record, Outpatient record, Prior outpatient labs, Prior outpatient radiology, Primary care record and Outside ED record Tests considered The following testing was considered but not selected: As above Prescription Management I considered prescription management with: Pain Medication Chronic Conditions Patient?s care impacted by: Other Social Determinants Patient?s care significantly limited by Social Determinants of Health including: Other Social Determinant of Health Discharge Plan Discharge Clinical Impression: Elbow pain, right Patient Disposition: Home, Self-Care Instructions: Arm Pain (ED) Additional Instructions: Your x-rays unremarkable You likely strained her elbow Ice and elevate Take Tylenol and ibuprofen for pain Follow up with your doctor If symptoms persist or worsen or pain becomes unbearable return to the ED Prescriptions: No Action (DME) pen needle, diabetic [Comfort EZ Pen [place]] 32 gauge x 5/16 needle See Rx Instructions .Route Qty: 30 5RF Rx Instructions: As directed injects once a day (DME) OneTouch Ultra Test Strip See Rx Instructions .Route Qty: 100 4RF Rx Instructions: As directed 3 times a day (DME) FreeStyle Jame 2 Sensor Kit See Rx Instructions .ROUTE .COMPLEX Qty: 2 2RF Dose Instruction: USE DIRECTED TO TEST BLOOD SUGAR. CHANGE EVERY 10 DAYS Rx Instructions: USE DIRECTED TO TEST BLOOD SUGAR. CHANGE EVERY 10 DAYS docusate sodium 100 mg capsule 100 mg PO BID Qty: 90 3RF Mounjaro 2.5 mg/0.5 mL pen injector 2.5 mg subcut QWEEK Qty: 2 3RF (DME) FreeStyle Jame 3 Plus Sensor Device See Rx Instructions .Route Qty: 6 3RF Rx Instructions: every 15 days (DME) FreeStyle Jame 3 [place] Misc See Rx Instructions .Route Qty: 1 0RF Rx Instructions: As directed atorvastatin 40 mg tablet 40 mg PO BEDTIME Qty: 30 2RF (DME) lancets Misc See Rx Instructions .Route Qty: 100 0RF Rx Instructions: As directed oxycodone 5 mg tablet 5 mg PO Q6H PRN (Reason: pain) Qty: 20 0RF Rx Instructions: Partial Fill upon patient request. amlodipine 10 mg tablet 10 mg PO DAILY fluticasone propionate 50 mcg/actuation spray,suspension 1 spray intranasal DAILY PRN (Reason: nasal congestion) sennosides [senna] 8.6 mg tablet 8.6 mg PO DAILY Qty: 90 1RF hydrochlorothiazide 12.5 mg tablet 12.5 mg PO DAILY (DME) blood-glucose meter [OneTouch Ultra2 Meter] Misc See Rx Instructions .ROUTE DIRECTED Qty: 1 Rx Instructions: As directed (DME) blood sugar diagnostic Strip See Rx Instructions .Route Rx Instructions: As directed trazodone 50 mg tablet 50 - 150 mg PO BEDTIME PRN (Reason: Sleep) fluoxetine 40 mg capsule 40 mg PO DAILY lisinopril 40 mg tablet 40 mg PO DAILY (DME) FreeStyle Jame 2 [place] Misc See Rx Instructions .Route Qty: 1 0RF Rx Instructions: As directed Referrals: Ginette Fortune MD [Primary Care Provider] - 1 week Print Language: Macedonian
[2024-09-22 13:07] VITALS: BP 141/81; PULSE 98; RESP 18; TEMP 36.6; O2SAT 98
--- OUTSIDE RECORDS SUMMARY | 2024-09-22 13:26 | XMS_ITS | Encounter Summary ---
Author Organization [facility] Address [facility] [place] [address] Care Team Providers Care Life Insurance Specialist Name Role Phone Kaley Jacobson MD Primary Care Provider Unavailab le Encounter Details Date Type Department Care Team Description 03/14/2017 Release of Information Medical Records [address] [place] [id number] Abstract, Provider Social History Tobacco Use Types [...] on filedocumented in this encounter Care Teams Life Insurance Specialist Relationship Specialty Start Date End Date Kaley Jacobson MD PCP - General Internal Medicine 03/11/17 documented as of this encounter
--- OUTSIDE RECORDS SUMMARY | 2024-09-22 13:26 | XMS_ITS | Clinical Summary ---
Author Organization [facility], Address [address] [place] [address] [place] [address] Phone Care Team Providers Care Middle School Math Teacher Name Role Phone Ashkan Jacobson MD Primary Care Provider [phone] Allergies Active Allergy Reactions Criticality Noted Date [...] AM EDT) Hemoglobin A1C 6.7(H) (4.0-5.6) % [facility] Comment: MONITORING: In known diabetic patients, hemoglobin A1c targets should be discussed with health care provider. DIAGNOSTIC USE: ??The [place] Diabetes Association (ADA) and the World Health [...] Supplement 1 Testing performed or reported by [facility], a Service of [facility], [address] [place] [id number] Familia Britton MD, Physical Therapy Manager [facility]# [id number] Blood specimen (specimen) Venous blood / Unknown 02/05/2023 10:48 AM EDT 02/05/2023 10:49 AM EDT Godfrey Marcum MD LAB BLOOD ORDERABLES Final Re sult [facility] from Last 3 Months or Most Recently Relevant to Health Maintenance Insurance [facility] Dual SNP ([id number]) [place] [id number] Care Teams Middle School Math Teacher Relationship Specialty Start Date End Date Ashkan Jacobson MD [address] [place] [address] PCP - General 03/09/19
--- OUTSIDE RECORDS SUMMARY | 2024-09-22 13:26 | XMS_ITS | Encounter Summary ---
Author Organization [facility] Address [address] [place] [address] Phone Care Team Providers Care School Clerk Name Role Phone Ashkan Jacobson MD Primary Care Provider [phone] Encounter Details Date Type Department Care Team (Late st Contact Info) Description 12/18/2021 Documentation Only [facility], [address] [place] [address] Macy Giraldo PA Social History [...] on filedocumented in this encounter Care Teams School Clerk Relationship Specialty Start Date End Date Ashkan Jacobson MD [address] [place] [address] [address] [place], [place] PCP - General 03/09/19 documented as of this encounter
--- OUTSIDE RECORDS SUMMARY | 2024-09-22 13:26 | XMS_ITS | Encounter Summary ---
Author Organization [facility] Address [address] [place] [address] Phone Care Team Providers Care Temperature Regulator Pyrometer Name Role Phone Ashkan Jacobson MD Primary Care Provider [phone] Encounter Details Date Type Department Care Team (Late st Contact Info) Description 03/22/2021 Documentation Only [facility], [address] [place] [address] Macy Giraldo PA Social History [...] on filedocumented in this encounter Care Teams Temperature Regulator Pyrometer Relationship Specialty Start Date End Date Ashkan Jacobson MD [address] [place] [address] [address] [place], [place] PCP - General 03/09/19 documented as of this encounter
--- OUTSIDE RECORDS SUMMARY | 2024-09-22 13:26 | XMS_ITS | Encounter Summary ---
Author Organization [facility] Address [facility] [place] [address] Care Team Providers Care Campaign Developer Name Role Phone Kaley Jacobson MD Primary Care Provider Unavailab le Encounter Details Date Type Department Care Team Description 11/18/2017 Release of Information Medical Records [address] [place] [id number] Abstract, Provider Social History Tobacco Use Types [...] on filedocumented in this encounter Care Teams Campaign Developer Relationship Specialty Start Date End Date Kaley Jacobson MD PCP - General Internal Medicine 03/11/17 documented as of this encounter
--- OUTSIDE RECORDS SUMMARY | 2024-09-22 13:26 | XMS_ITS | Encounter Summary ---
Author Organization [facility] Address [address] [address] Care Team Providers Care Roof Plumber Name Role Phone Ginette Fortune MD Primary Care Provide r Reason for Referral * Consultation (Routine) - Authorized Specialty Diagnoses / Procedures Referred By Eula winston Referred To Contact Orthopaedic Surgery Diagnoses Acute pain of left knee Drea Monroy MD [address] [place] [address] Phone: tel: fax: [facility] [address] [place] [address] [place] [address] Phone: tel: fax: Referral ID Status Reason Start Date Expiration Date Visits Requested Visits Authorized [id number] Authorized Specialty Services Required 11/14/2023 11/13/2024 1 1 Encounter Details Date Type Department Care Team (Late st Contact Info) Description 11/14/2023 Orders Only [facility] [address] [place], [place] [phone] Drea Monroy MD [address] [place], [place] [phone] Acute pain of left knee (Primary Dx) [...] Description 12/16/2024 9:15 AM EDT Office Visit [facility] [address] [place] [address] Ginette Fortune MD [address] [place] [address] Scheduled Referrals Name Type Priority Associated Diagnoses [...] documented as of this encounter Care Teams Roof Plumber Relationship Specialty Start Date End Date Ginette Fortune MD [address] [place] [address] PCP - General Internal Medicine 10/27/23 documented as of this encounter
--- OUTSIDE RECORDS SUMMARY | 2024-09-22 13:26 | XMS_ITS | Encounter Summary ---
Author Organization [facility] Address [address] [place] [address] Phone Care Team Providers Care Otolaryngology Physician Name Role Phone Ashkan Jacobson MD Primary Care Provider [phone] Encounter Details Date Type Department Care Team (Late st Contact Info) Description 04/04/2022 Documentation Only [facility], [address] [place] [address] Macy Giraldo PA Social History [...] on filedocumented in this encounter Care Teams Otolaryngology Physician Relationship Specialty Start Date End Date Ashkan Jacobson MD [address] [place] [address] [address] [place], [place] PCP - General 03/09/19 documented as of this encounter
--- OUTSIDE RECORDS SUMMARY | 2024-09-22 13:26 | XMS_ITS | Clinical Summary ---
Author Organization [facility] Address [address] [place] [address] Care Team Providers Care Hydrometeorologist Name Role Phone Kaley Jacobson MD Primary Care Provider Unavailab le Surgical History Surgery Date Site/Laterality Comments TOTAL KNEE ARTHROPLASTY 2009 PROCEDURE: IN ARTHRP KNE CONDYLE&PLATU MEDIAL&LAT COMPARTMENTS CHOLECYSTECTOMY PROCEDURE: IN LAPAROSCOPY SURG CHOLECYSTECTOMY SECTION PROCEDURE: HISTORICAL OTHER [...] Continued pain 03/2017, seeking 2nd opinion at [facility] History of CVA (cerebrovascu lar accident) [...] Vaccine (2023-2 5 season) 2024 Influenza Vaccine (Season Ended) [...] age to complete this topic Care Teams Hydrometeorologist Relationship Specialty Start Date End Date Kaley Jacobson MD PCP - General Internal Medicine 03/11/17
--- OUTSIDE RECORDS SUMMARY | 2024-09-22 13:26 | XMS_ITS | Encounter Summary ---
Author Organization [facility] Address [address] [place] [address] Phone Care Team Providers Care Sail Finisher Hand Name Role Phone Ashkan Jacobson MD Primary Care Provider [phone] Encounter Details Date Type Department Care Team (Late st Contact Info) Description 06/19/2021 Documentation Only [facility] [place], [address] [place] [address] Macy Giraldo PA Social History [...] on filedocumented in this encounter Care Teams Sail Finisher Hand Relationship Specialty Start Date End Date Ashkan Jacobson MD [address] [place] [address] [address] [place], [place] PCP - General 03/09/19 documented as of this encounter
--- OUTSIDE RECORDS SUMMARY | 2024-09-22 13:26 | XMS_ITS | Encounter Summary ---
Author Organization [facility] Address [address] [place] [address] Phone Care Team Providers Care Industrial Machine Assembler Name Role Phone Ashkan Jacobson MD Primary Care Provider [phone] Encounter Details Date Type Department Care Team (Late st Contact Info) Description 09/28/2021 Documentation Only [facility], [address] [place] [address] Macy Giraldo PA Social History [...] on filedocumented in this encounter Care Teams Industrial Machine Assembler Relationship Specialty Start Date End Date Ashkan Jacobson MD [address] [place] [address] [address] [place], [place] PCP - General 03/09/19 documented as of this encounter
--- OUTSIDE RECORDS SUMMARY | 2024-09-22 13:26 | XMS_ITS | Encounter Summary ---
Author Organization [facility] Address [address] [place] [address] Phone Care Team Providers Care Oracle Soa Consultant Name Role Phone Ashkan Jacobson MD Primary Care Provider [phone] Encounter Details Date Type Department Care Team (Late st Contact Info) Description 09/18/2021 Documentation Only [facility], [address] [place] [address] Macy Giraldo PA Social History [...] on filedocumented in this encounter Care Teams Oracle Soa Consultant Relationship Specialty Start Date End Date Ashkan Jacobson MD [address] [place] [address] [address] [place], [place] PCP - General 03/09/19 documented as of this encounter
--- OUTSIDE RECORDS SUMMARY | 2024-09-22 13:26 | XMS_ITS | Clinical Summary ---
Author Organization [facility] Address [address] [place] [address] Care Team Providers Care Content Curator Name Role Phone Kaley Jacobson MD Primary [...] Continued pain 03/2017, seeking 2nd opinion at [facility] History of CVA (cerebrovascular accident ) 06/06/2017 Overview: 06/27/2016 Duplex bilat carotid US, no evidence of significant stenosis. Lipoma of left thigh 06/06/2017 Overview: 03/21/2016 bx Multiple renal cysts 06/06/2017 Overview: Bilateral, 06/04/2016 Multiple thyroid nodules 06/06/2017 Overview: US 12/2015 Multiple pulmonary nodules 06/06/2017 Overview: Bilaterally, chest CT 12/2015 Depression HTN (hypertension) Immunizations Name Administration Dates Next Due [id number] + 10/04/2014 Varicella Titre-Positive + 10/04/2014 Social [...] Ended) 2025 022, 01/09/2016, 02/04/2015 Care Teams Content Curator Relationship Specialty Start Date End Date Kaley Jacobson MD PCP - General Internal Medicine 03/11/17
--- OUTSIDE RECORDS SUMMARY | 2024-09-22 13:26 | XMS_ITS | Encounter Summary ---
Author Organization [facility] Address [address] [place] [address] Phone Care Team Providers Care Ballpoint Pens Assembler Name Role Phone Ashkan Jacobson MD Primary Care Provider [phone] Encounter Details Date Type Department Care Team (Late st Contact Info) Description 09/24/2022 Documentation Only [facility], [address] [place] [address] Godfrey Marcum MD [address] [facility] [place] [address] Social History Tobacco Use Types [...] on filedocumented in this encounter Care Teams Ballpoint Pens Assembler Relationship Specialty Start Date End Date Ashkan Jacobson MD [address] [place] [address] [address] [place], [place] PCP - General 03/09/19 documented as of this encounter
--- OUTSIDE RECORDS SUMMARY | 2024-09-22 13:26 | XMS_ITS | Clinical Summary ---
Author Organization [employer] Address [address] [facility] 7 [place] [address] Care Team Providers Care Leave Specialist Name Role Phone Ginette Fortune MD Primary [...] for anxiety. 02/23/20 24 Active Continuous Glucose Relay Repairer (FreeStyle Jame 2 [place]) device 02/06/20 24 Active docusate sodium (Colace) [...] Thyroid nodule 01/27/2024 Type 2 diabetes mellitus, [facility] long-term current use of insulin 10/21/2023 [...] weight management Griffin Cuellar NP (located on [address] [place] [address] phone [phone]) Diabetes is: controlled - Lab Results Component [...] and psychiatrist Keiko Philippe located on [address] [place] [address] phone [phone] it is being prescribed for her trazodone, [...] Data 09/13/2024 9:00 AM EDT Office Visit [facility] [address] [place] [phone] Ginette Fortune MD Type 2 diabetes mellitus with stage 3 chronic kidney disease, without long-term current use of insulin, unspecified whether stage 3a or 3b CKD (CMS/HCC) (Primary Dx); Resistant hypertension; Chronic elbow pain, right 09/13/2024 Travel 09/09/2024 Telephone [facility] [address] [place] [phone] Ginette Fortune MD Chart Prep 09/07/2024 Telephone [facility] [address] [place] [address] [phone] Viet Bowman MD 09/07/2024 Travel 09/06/2024 Patient Outreach [facility] [address] [place] [facility] [address] Ginette Fortune MD Pre-visit Planning ([facility] unable to reach LVM) 08/18/2024 Orders Only GENERIC EXTERNAL DATA DEPARTMENT Provider, Generic External Data 08/16/2024 Orders Only [facility] External Provider, [facility] from Last 3 Months Immunizations Immunization [...] Description 12/16/2024 9:15 AM EDT Office Visit [facility] [address] [place] [address] Ginette Fortune MD [address] [place] [address] Health Maintenance Due Date Last Done Comments CT Colonography 1961 Colonoscopy 1961 Colorectal Cancer Screening 1961 FIT DNA/Cologuard 1961 FIT 1961 FOBT 1961 HIV Screening 1961 Sigmoidoscopy 1961 Disability Screening 1961 Eye Exam 1971 Pap Smear 1982 [...] Procedure Name Priority Date/Time Associated Diagnosis Comments XR ELBOW 1-2 VIEWS RIGHT Routine 09/22/2024 11:50 AM EDT TSH W/REFLEX TO FT4 Routine 09/14/2024 1 [...] Recently Relevant to Health Maintenance Results * XR Elbow 1-2 Views Right (09/22/2024 11:50 AM EDT) Anatomical Region Laterality Modality Upper Extremities, Elbow Right Radiogr aphic Imaging 09/22/2024 11:5 0 AM EDT Narrative 09/22/2024 12:17 PM EDT ? [facility] ?[address] ?[place] [address] ?XRay Report ? Signed ? Patient: Iverson,Rosie ?MR#: [id number] ? : 1960 ?Acct:[id number] ? Age/Sex: 64 / F ?ADM Date: 09/22/24 ? Loc: HO.ED ? Attending Dr: ? Ordering Physician: Arianna Araujo DO ?? Date of Service: 09/22/24 ?? Procedure(s): XR elbow RT 2V ?? Accession Number(s): [id number] ? cc: Ginette Fortune MD; Arianna Araujo DO ? EXAMINATION: ?? XR ELBOW, RIGHT ? CLINICAL INFORMATION: ?? fall, pain ? COMPARISON: ?? None available. ? TECHNIQUE: ?? AP, lateral, and oblique views of the right elbow. ? FINDINGS: ?? The bones and soft tissues are normal. No fracture or joint effusion. ?? Alignment is anatomic. Joint spaces are maintained. ? XR/XR elbow RT 2V ?? IMPRESSION: ?? Normal right elbow. ? Electronically signed by: ??Jae Isidro MD ??09/22/2024 12:14 PM EDT RP ? Dictated By: ?Jae Isidro MD ? Signed By: ?<Electronically signed by Jae Isidro MD in OV> ?09/22/24 1214 ? DD/ 1150 ? TD/TT: 09/22/24 1204 ? Manager Sales And Marketing: ? Procedure Note Melinda Radford - 09/22/[address] [address] XRay Report Signed Patient: Jovani Iverson#: [id number] : 2Acct:[id number] Age/Sex: 64 / FADM Date: 09/22/24 Loc: HO.ED Attending Dr: Ordering Physician: Arianna Araujo DO Date of Service: 09/22/24 Procedure(s): XR elbow RT 2V Accession Number(s): [id number] cc: Ginette Fortune MD; Arianna Araujo DO EXAMINATION: XR ELBOW, RIGHT CLINICAL INFORMATION: fall, pain COMPARISON: None available. TECHNIQUE: AP, lateral, and oblique views of the right elbow. FINDINGS: The bones and soft tissues are normal. No fracture or joint effusion. Alignment is anatomic. Joint spaces are maintained. XR/XR elbow RT 2V IMPRESSION: Normal right elbow. Electronically signed by: Jae Isidro MD 09/22/2024 12:14 PM EDT Dictated By: Jae Isidro MD Signed By: <Electronically signed by Jae Isidro MD in OV> 09/22/24 1214 DD/ 1150 TD/TT: 09/22/24 1204 Manager Sales And Marketing: [facility] External Provider IMG XR PROCEDURES Final Result * (ABNORMAL) TSH with Reflex to Free T4 (09/14/2024 1:48 PM EDT) TSH reflex Free T4 0.19(L) 0.32 - 4.0 uIU/mL [facility] 09/14/2024 1:48 PM EDT 09/14/2024 1:48 PM EDT Generic External Data Provider LAB BLOOD ORDERAB LES Final Result Performing Organization Address [facility]/ZIP Co de Phone Number [facility] [address] [place] [phone] * (ABNORMAL) TSH (09/14/2024 1:48 PM EDT) Thyroid Stimulating Hormone 0.19(L) 0.32 - 4.0 uIU/mL [facility] Comment:TSH 3rd Generation ( [facility]) 09/14/2024 1:48 PM EDT 09/14/2024 1:48 PM EDT us Generic External Data Provider LAB BLOOD ORDERAB LES Final Result [facility] [address] [place] [address] [phone] * T4, Free (09/14/2024 1:48 PM EDT) Free T4 (Free Thyroxine) 0.87 0.71 - 1.85 ng/dL [facility] 09/14/2024 1:48 PM EDT 09/14/2024 1:48 PM EDT us Generic External Data Provider LAB BLOOD ORDERAB LES Final Result Performing Organization Address [facility] Co de Phone Number [facility] [address] [place] [phone] * (ABNORMAL) Lipid Panel, Standard (09/14/2024 1:48 PM EDT) Triglycerides 172(H) <150 mg/dL [facility] Comment:Desirable Triglyceri de: less than 150 mg/dLBorderline High Triglyceride 150-199 mg/dLHigh Triglyceride: 200-499 mg/dLVery High Triglyceride: greater than or equal to 5OO mg/dL Cholesterol 227(H) <200 mg/dL [facility] Comment:Desirable Cholestero l: less than 200 mg/dLBorderline High Cholesterol: 200-239 mg/dLHigh Cholesterol: greater than 239 mg/dL LDL Cholesterol Calculated 136(H) <100 mg/dL [facility] Comment:Desirable LDL: less than 100 mg/dLNear Optimal/Above Optimal LDL: 110- 129 mg/dLBorderline High LDL: 130-159 mg/dLHigh LDL: 160-189 mg/dLVery High LDL: greater than or equal to 190 mg/dL HDL Cholesterol 57 >40 mg/dL [facility] Comment:Desirable HDL: great er than 40 mg/dL Note: This HDL assay may give artificially low results in patients with liver disease. 09/14/2024 1:48 PM EDT 09/14/2024 1:48 PM EDT us Generic External Data Provider LAB BLOOD ORDERAB LES Final Result Performing Organization Address [facility] Co de Phone Number [facility] [address] [place] [phone] * (ABNORMAL) Basic Metabolic Panel (09/14/2024 1:48 PM EDT) Sodium 144 135 - 145 mmol/L [facility] Potassium 4.2 3.3 - 5.1 mmol/L [facility] Chloride 106 96 - 108 mmol/L [facility] Carbon Dioxide 27 22 - 29 mmol/L [facility] Anion Gap 15 12 - 20 [facility] Urea Nitrogen (BUN) 22(H) 9 - 16 mg/dL [facility] Creatinine, Serum 1.23 0.5 - 1.4 mg/dL [facility] Estimated Glomerular Filt Rate 44 [facility] Comment:Chronic Kidney Disea se: Estimated GFR < 60 mL/min/1.63w7Vpjvef Kidney Disease: Estimated GFR < 15 mL/min/1.73m2 Glucose 93 60 - 115 mg/dL [facility] Calcium 9.7 8.4 - 10.2 mg/dL [facility] 09/14/2024 1:48 PM EDT 09/14/2024 1:48 PM EDT Generic External Data Provider LAB BLOOD ORDERAB LES Final Result Performing Organization Address [facility] Co de Phone Number [facility] [address] [place] [phone] * (ABNORMAL) Glucose, Whole Blood (08/18/2024 1:23 PM EDT) Glucose, Whole Blood 188(H) 60 - 115 mg/dL [facility] Comment:METER #: [id number] Testing performed in the Endocrinology Department [address] , [address], [facility]. 08/18/2024 1:23 PM EDT 08/18/2024 1:27 PM EDT us Generic External Data Provider LAB BLOOD ORDERAB LES Final Result [facility] [address] [place] [phone] * US RENAL BI (08/16/2024 4:39 PM EDT) Anatomical Region Laterality Modality Abdomen Ultrasound 08/16/2024 4:39 PM EDT Narrative 08/16/2024 4:41 PM EDT ? [facility] ?[address] ?[place] [address] ? Ultrasound Report ? Signed ? Patient: Iverson,Rosie ?MR#: [id number] ? : 1960 ?Acct:[id number] ? Age/Sex: 64 / F ?ADM Date: 08/16/24 ? Loc: HO.US ? Attending Dr: Renato Bloom MD ? Ordering Physician: Renato Bloom MD ?? Date of Service: 08/16/24 ?? Procedure(s): US renal BI ?? Accession Number(s): [id number] ? cc: Ginette Fortune MD; Renato Bloom [...] DD/ 1639 ? TD/TT: 08/16/24 1639 ? Manager Sales And Marketing: ? Procedure Note Donotvishalinterpreter, Image - 08/16/[address] [address] Ultrasound Report Signed Patient: Jovani Ievrson#: [id number] : 2Acct:[id number] Age/Sex: 64 / FADM Date: 08/16/24 Loc: HO.US Attending Dr: Renato Bloom MD Ordering Physician: Renato Bloom MD Date of Service: 08/16/24 Procedure(s): US renal BI Accession Number(s): [id number] cc: Ginette Fortune MD; Renato Bloom MD [...] 08/16/24 1640 DD/ 1639 TD/TT: 08/16/24 1639 Manager Sales And Marketing: [facility] External Provider IMG US PROCEDURES Edited Result - Final * (ABNORMAL) POCT HGB A1C (04/14/2024 10:13 AM EST) Hemoglobin A1C 6.5(A) 4.0 - 6.0 % QC Media Lot # [id number] Lot# Expiration Date [id number] Blood 04/14/2024 10:1 3 AM EST Ginette Freeman MD POINT OF CARE TEST EN TER/EDIT ORDERABLES Final Result * BI Mammogram Screening Tomosynthesis Bilateral (03/09/2024 1:20 PM EST) Anatomical Region Laterality Modality Breast Bilateral Mammography 03/09/2024 1:20 PM EST Narrative 03/17/2024 1:55 PM EST ? [facility] [place] ? [address] ?[place] [address] ? Mammography Report ? Signed ? Patient: Iverson,Rosie ?MR#: [id number] ? : 1960 ?Acct:[id number] ? Age/Sex: 63 / F ?ADM Date: 11/05/24 ? Loc: HO.MAMMO ? Attending Dr: Ginette Freeman MD ? Ordering Physician: Barciona Freeman,Ginette MD ?Results: ?? 1Negative ? Date of Service: 03/09/24 ?Follow Up: 1 Year From Orig ?? inal Mammogram ? Procedure(s): MM tomosynthesis screening BI ?? Accession Number(s): [id number] ? cc: Ginette Fortune MD ? EXAMINATION: [...] DD/ 1320 ? TD/TT: 03/09/24 1335 ? Manager Sales And Marketing: ? Procedure Note Donotuseinterpreter, Image - 03/17/2024 [facility] [address] [place] [address] Mammography Report Signed Patient: Jovani Iverson#: [id number] : 2Acct:[id number] Age/Sex: 63 / FADM Date: 03/09/24 Loc: HO.MAMMO Attending Dr: Ginette Freeman MD Ordering Physician: Ginette Fortune MDResults: 1Negative Date of Service: 03/09/24Follow Up: 1 Year From Orig inal Mammogram Procedure(s): MM tomosynthesis screening BI Accession Number(s): [id number] cc: Ginette Fortune MD EXAMINATION: MM SCREENING [...] 03/17/24 1352 DD/ 1320 TD/TT: 03/09/24 1335 Manager Sales And Marketing: us Ginette Freeman MD IMG BI PROCEDURES Fin al Result * Hepatitis C Antibody with Reflex to HCV, RNA, Quantitative, Real-Time PCR (01/27/2024 10:22 AM EDT) Hepatitis C Antibody Nonreactive Nonreactive [facility] Comment:Antibodies to HCV no t detected; does not exclude early acuteHCV infection. Blood Venous blood specimen / Unknown 01/27/2024 10:22 AM EDT 01/27/2024 11:20 AM EDT us Ginette Freeman MD LAB BLOOD ORDERABLES Final Result [facility] [address] [place] [address] [phone] from Last 3 Months or Most Recently Relevant to Health Maintenance Insurance [facility] < [address] [place] [id number] Care Teams Leave Specialist Relationship Specialty Start Date End Date Ginette Fortune MD [address] [place] [address] PCP - General Internal Medicine 10/27/23
--- OUTSIDE RECORDS SUMMARY | 2024-09-22 13:27 | XMS_ITS | Encounter Summary ---
Author Organization [facility] Address [address] [place] [address] Phone Care Team Providers Care Protective Signal Superintendent Name Role Phone Ashkan Jacobson MD Primary Care Provider [phone] Encounter Details Date Type Department Care Team (Late st Contact Info) Description 07/30/2023 Documentation Only [facility] [place], [address] [place] [address] Xochilt Crawford [place] [address] [place] [address] Social History Tobacco Use Types [...] on filedocumented in this encounter Care Teams Protective Signal Superintendent Relationship Specialty Start Date End Date Ashkan Jacobson MD [address] [place] [address] [address] [place], [place] PCP - General 03/09/19 documented as of this encounter
--- OUTSIDE RECORDS SUMMARY | 2024-09-22 13:27 | XMS_ITS | Encounter Summary ---
Author Organization [facility] Address [address] [place] [address] Phone Care Team Providers Care Commercial Collections Specialist Name Role Phone Ashkan Jacobson MD Primary Care Provider [phone] Encounter Details Date Type Department Care Team (Late st Contact Info) Description 07/23/2023 Documentation Only [facility] [place], [address] [place] [address] [place] [address] Social History Tobacco Use Types [...] on filedocumented in this encounter Care Teams Commercial Collections Specialist Relationship Specialty Start Date End Date Ashkan Jacobson MD [address] [place] [address] 201 [place], [place] PCP - General 03/09/19 documented as of this encounter
--- OUTSIDE RECORDS SUMMARY | 2024-09-22 13:27 | XMS_ITS | Encounter Summary ---
Author Organization [employer] Address [address] [facility] 7t [place] [address] Care Team Providers Care Route Sales Associate Name Role Phone Ginette Fortune MD Primary Care Provide r Reason for Visit * Reason Onset Date Comments Hospital Follow-up 05/14/2024 Encounter Details Date Type Department Care Team ([facility] Contact Info) Description 05/14/2024 Telephone [facility] [address] [place] [address] Ginette Fortune MD [address] [place] [address] Hospital Follow-up Social History Tobacco Use Types [...] from pt requesting a HDF appt. Hospital: [facility] Date of admission: 05/09/2024 Discharge date: 05/13/2024 Diagnosed: Kidney problems *Send message to [place] Clinical Care Coordinators documented in this encounter Plan of Treatment Upcoming Encounters Date Type Department Care Team (Late st Contact Info) Description 12/16/2024 9:15 AM EDT Office Visit [facility] [address] [place] [address] Ginette Fortune MD [address] [place] [address] documented as of this encounter Visit Diagnoses Not on filedocumented in this encounter Additional Health Concerns Assessment Noted Time PHQ-9 Depression Total Score: 0 10/21/19 24 10:02 AM EDT documented as of this encounter Care Teams Route Sales Associate Relationship Specialty Start Date End Date Ginette Fortune MD [address] [place] [address] PCP - General Internal Medicine 10/27/23 documented as of this encounter
--- OUTSIDE RECORDS SUMMARY | 2024-09-22 13:27 | XMS_ITS | Encounter Summary ---
Author Organization [facility] Address [address] [place] [address] Phone Care Team Providers Care Navigating Officer Name Role Phone Ashkan Jacobson MD Primary Care Provider [phone] Encounter Details Date Type Department Care Team (Late st Contact Info) Description 08/21/2023 Documentation Only [facility] [place], [address] [place] [address] Xochilt Crawford [place] [address] [place] [address] Social History Tobacco Use Types [...] on filedocumented in this encounter Care Teams Navigating Officer Relationship Specialty Start Date End Date Ashkan Jacobson MD [address] [place] [address] 201 [place], [place] PCP - General 03/09/19 documented as of this encounter
--- OUTSIDE RECORDS SUMMARY | 2024-09-22 13:27 | XMS_ITS | Encounter Summary ---
Author Organization [facility] Address [address] [place] [address] Phone Care Team Providers Care Teacher Drama Name Role Phone Ashkan Jacobson MD Primary Care Provider [phone] Encounter Details Date Type Department Care Team (Late st Contact Info) Description 07/21/2023 Documentation Only [facility] [place], [address] [place] [address] Xochilt Crawford [place] [address] [place] [address] Social History Tobacco Use Types [...] on filedocumented in this encounter Care Teams Teacher Drama Relationship Specialty Start Date End Date Ashkan Jacobson MD [address] [place] [address] 201 [place], [place] PCP - General 03/09/19 documented as of this encounter
--- OUTSIDE RECORDS SUMMARY | 2024-09-22 13:27 | XMS_ITS | Encounter Summary ---
Author Organization [facility] Address [address] [place] [address] Phone Care Team Providers Care Finance Controller Name Role Phone Ashkan Jacobson MD Primary Care Provider [phone] Encounter Details Date Type Department Care Team (Late st Contact Info) Description 08/04/2023 Documentation Only [facility] [place], [address] [place] [address] Xochilt Crawford [place] [address] [place] [address] Social History Tobacco Use Types [...] on filedocumented in this encounter Care Teams Finance Controller Relationship Specialty Start Date End Date Ashkan Jacobson MD [address] [place] [address] 201 [place], [place] PCP - General 03/09/19 documented as of this encounter
--- OUTSIDE RECORDS SUMMARY | 2024-09-22 13:27 | XMS_ITS | Encounter Summary ---
Author Organization [facility] Address [address] [place] [address] Phone Care Team Providers Care Senior Network Architect Name Role Phone Ashkan Jacobson MD Primary Care Provider [phone] Encounter Details Date Type Department Care Team (Late st Contact Info) Description 08/28/2023 Documentation Only [facility] [place], [address] [place] [address] Xochilt Crawford [place] [address] [place] [address] Social History Tobacco Use Types [...] filedocumented in this encounter Care Teams Senior Network Architect Relationship Specialty Start Date End Date Ashkan Jacobson MD [address] [place] [address] 201 [place], [place] PCP - General 03/09/19 documented as of this encounter
--- OUTSIDE RECORDS SUMMARY | 2024-09-22 13:27 | XMS_ITS | Encounter Summary ---
Author Organization [facility] Address [address] [place] [address] Phone Care Team Providers Care Box Order Person Name Role Phone Ashkan Jacobson MD Primary Care Provider [phone] Encounter Details Date Type Department Care Team (Late st Contact Info) Description 02/17/2024 Documentation Only [facility] [place], [address] [place] [address] Xochilt Crawford [place] [address] [place] [address] Social History Tobacco Use Types [...] on filedocumented in this encounter Care Teams Box Order Person Relationship Specialty Start Date End Date Ashkan Jacobson MD [address] [place] [address] [address] [place], [place] PCP - General 03/09/19 documented as of this encounter
--- OUTSIDE RECORDS SUMMARY | 2024-09-22 13:27 | XMS_ITS | Encounter Summary ---
Author Organization [facility] Address [address] [place] [address] Phone Care Team Providers Care Cylinder Dyer Name Role Phone Ashkan Jacobson MD Primary Care Provider [phone] Encounter Details Date Type Department Care Team (Late st Contact Info) Description 12/19/2023 Documentation Only [facility] [place], [address] [place] [address] Xochilt Crawford [place] [address] [place] [address] Social History Tobacco Use Types [...] on filedocumented in this encounter Care Teams Cylinder Dyer Relationship Specialty Start Date End Date Ashkan Jacobson MD [address] [place] [address] 201 [place], [place] PCP - General 03/09/19 documented as of this encounter
--- OUTSIDE RECORDS SUMMARY | 2024-09-22 13:27 | XMS_ITS | Encounter Summary ---
Author Organization [facility] Address [address] [place] [address] Phone Care Team Providers Care Filling Machine Operator Name Role Phone Ashkan Jacobson MD Primary Care Provider [phone] Encounter Details Date Type Department Care Team (Late st Contact Info) Description 02/04/2024 Documentation Only [facility] [place], [address] [place] [address] Xochilt Crawford [place] [address] [place] [address] Social History Tobacco Use Types [...] on filedocumented in this encounter Care Teams Filling Machine Operator Relationship Specialty Start Date End Date Ashkan Jacobson MD [address] [place] [address] [address] [place], [place] PCP - General 03/09/19 documented as of this encounter
--- OUTSIDE RECORDS SUMMARY | 2024-09-22 13:27 | XMS_ITS | Encounter Summary ---
Author Organization [facility] Address [address] [place] [address] Phone Care Team Providers Care Oyster Picker Name Role Phone Ashkan Jacobson MD Primary Care Provider [phone] Encounter Details Date Type Department Care Team (Late st Contact Info) Description 01/06/2024 Documentation Only [facility] [place], [address] [place] [address] Charlotte Mehta [address] [place] [address] Social History Tobacco Use Types [...] on filedocumented in this encounter Care Teams Oyster Picker Relationship Specialty Start Date End Date Ashkan Jacobson MD [address] [place] [address] [address] [place], [place] PCP - General 03/09/19 documented as of this encounter
== END 2024-09-22 13:09 | disposition home or self-care (01) ==
PROVIDERS: Emergency Provider Emergency Medicine; PCP Internal Medicine
DX: M25.521 Pain in right elbow (principal)
CPT/HCPCS: 73070; 99282; 99283

== ENCOUNTER → 2024-09-22 11:35 | Outpatient (BNV) | payer OTHER, SELFPAY | PROVIDERS: Emergency Provider Emergency Medicine; PCP Internal Medicine; Visit Provider Radiology Diagnostic Radiology | DX: M25.521 Pain in right elbow (principal) | CPT/HCPCS: 73070 ==

== ENCOUNTER → 2024-09-23 14:43 | Outpatient (REF) | payer OTHER, SELFPAY ==
--- NOTE | 2024-09-23 14:46 | CA_ITS ---
Transthoracic Echocardiogram Patient (Last, First, Middle): Rosie Iverson, Gender: Female Date of : 1960 Age: 64 Procedure Date: 09/23/2024 Procedure Type: Transthoracic Echocardiogram Location: OP Height: 154.94 cm Weight: 74.39 kg BSA: 1.74 m2 Heart Rate: bpm BP: 141 / 81 mmHg Medical Records Supervisor: ROSE Referring MD: Steven Franz CHIEF MEDIA OFFICER Ramp Agent: Oscar Clark MD Symptoms: R00.2 - Palpitations Study Quality: Adequate ECG Rhythm: Sinus Conclusions: - 1. Low normal LV ejection fraction 50-55% with grade 1 diastolic dysfunction 2. Normal cardiac valvular Dopplers 3. Normal RV systolic pressure 4. No gross pericardial effusion Findings Left Ventricle Normal left ventricular cavity size. There is normal left ventricular wall thickness. The left ventricular systolic function is low normal. The visually estimated ejection fraction is between 50-55%. Spectral Doppler is indicative of an impaired relaxation filling pattern. E/E prime ratio is <8, consistent with normal filling pressures. Evidence suggests grade I (mild) diastolic dysfunction. Right Ventricle Normal right ventricular cavity size and systolic function. Atria Both atria are normal in size. Interatrial shunt cannot be excluded. Aortic Valve The aortic valve structure and function is likely normal. There is no aortic valve stenosis. There is no aortic valve regurgitation. Mitral Valve Normal mitral valve structure and function. There is trace mitral valve regurgitation. There is no mitral valve stenosis. Pulmonic Valve The pulmonic valve was not well visualized. Tricuspid Valve Likely normal tricuspid valve structure and function. There is trace tricuspid valve regurgitation. The right ventricular systolic pressure is normal. The right ventricular systolic pressure is 25 mmHg. Normal right atrial pressure. There is no evidence of pulmonary hypertension. Great Vessels All visible segments of the aorta are normal in size. The pulmonary artery was not well visualized. There is no dilatation of the ascending aorta measuring 3.00 cm. Venous The inferior vena cava is normal in size and collapses greater than 50% with inspiration. Pericardium/Pleural There is no evidence of pericardial effusion. Measurements 2D Linear Measurements IVSd: 0.96 0.6-0.9/0.6-1.0 cm LVIDd: 4.20 3.9-5.3/4.2-5.9 cm LVIDd Index: 2.41 2.4-3.2/2.2-3.1 cm/m2 LVIDs: 2.70 2.0-3.6 cm LVPWd: 0.94 0.7-1.1 cm LA Diam: 3.10 2.7-3.8/3.0-4.0 cm LAIDs Index: 1.78 1.5-2.3 cm/m2 LV Mass: 159.47 67-162/88-224 g LV Mass Index: 91.65 43-95/49-115 g/m2 LVOT Diam: 2.10 3.0+(-)1.3 cm 2D Systolic Function EF 4C: 54.50 >55% EF 2C: 52.20 >55% EF BiP: 53.30 >55% Mitral Valve MV Pk E: 0.60 MV PK A: 1.00 MV Decel Time: 124.00 E/A: 0.60 E'Lateral: 10.40 E'Medial: 6.64 E/E' Med: 9.00 E/E' Lat: 5.70 PHT: 36.00 MVA PHT: 6.11 Decel [place]: 4.82 Aortic Valve AoV Pk Stanley: 1.03 AoV Mn Stanley: 0.75 AoV VTI: 0.19 AoV Pk Grad: 4.00 Aov Mn Grad: 2.00 TREV Cont.VTI: 2.54 LVOT LVOT Pk Stanley: 0.77 LVOT Mn Stanley: 0.53 LVOT VTI: 0.14 LVOT Pk Grad: 2.00 LVOT Mn Grad: 1.00 LVOT Diam: 2.10 LVOT Area: 3.46 Diastolic Function MV Pk E: 0.60 MV Pk A: 1.00 E/A: 0.60 E'Medial: 6.64 E/E' Med: 9.00 E' Laterial: 10.40 E/E' Lat: 5.70 Right Ventricle TAPSE (mm): 17.70 TVS' Stanley: 10.70 Tricuspid Valve TR Pk Stanley: 2.33 TR Pk Grad: 22.00 RA Press: 3.00 RVSP: 25.00 Great Vessels Aorta Sinus of Valsalva: 3.15 2.0-3.[address] [place]: 2.71 1.7-3.4 cm Ao Asc: 3.00 2.1-3.4 cm Updated in Other Vendor System with Status of Final Oscar Clark MD electronically signed on 09/23/2024 4:53:19 PM with status of Final
--- OUTSIDE RECORDS SUMMARY | 2024-09-23 14:46 | XMS_ITS | Encounter Summary ---
Author Organization [facility] Address [address] [place] [address] Phone Care Team Providers Care Instructor Pilot Name Role Phone Ashkan Jacobson MD Primary Care Provider [phone] Encounter Details Date Type Department Care Team (Late st Contact Info) Description 04/04/2022 Documentation Only [facility] [place], [address] [place] [address] Macy Giraldo PA Social History [...] on filedocumented in this encounter Care Teams Instructor Pilot Relationship Specialty Start Date End Date Ashkan Jacobson MD [address] [place] [address] 201 [place], [place] PCP - General 03/09/19 documented as of this encounter
== END ==
LOC: HO.CARD 14:43
DX: R00.2 Palpitations (principal)
CPT/HCPCS: 93306

== ENCOUNTER → 2024-09-23 14:46 | Outpatient (BNV) | payer OTHER, SELFPAY | PROVIDERS: Visit Provider Internal Medicine Cardiovascular Disease | DX: I51.89 Other ill-defined heart diseases (principal) | CPT/HCPCS: 93306 ==

== ENCOUNTER → 2024-09-28 08:19 | Outpatient (REF) | payer OTHER, SELFPAY ==
--- NOTE | ~2024-09-28 | NM_ITS ---
EXAMINATION: NM KIDNEY FLOW FUNCTION WITH RX HISTORY: R10.9 - Unspecified abdominal pain. TECHNIQUE: A renogram and renal scan were performed following the intravenous administration of 10 mCi technetium 99m-DTPA. The patient received 37 mg IV Lasix approximately 30 minutes after injection of the radiopharmaceutical. COMPARISON: Correlation is made with a CT of the abdomen without contrast dated 06/01/2024. FINDINGS: There is symmetric blood flow to both kidneys. The split cortical function is 61.7% on the left and 38.3% on the right. Excretion is seen bilaterally. There is dilatation of the right intrarenal collecting system and collimation in the ureter. After the administration of intravenous Lasix, there is washout from the bilateral renal collecting systems and ureters. The half-time of clearance after administration of IV Lasix is 24.9 minutes on the left and 19.7 minutes on the right. 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 Electronically signed by: Jose Enrique Shannon MD 09/28/2024 11:57 AM EDT
--- OUTSIDE RECORDS SUMMARY | 2024-09-28 08:25 | XMS_ITS | Encounter Summary ---
Author Organization [facility] Address [address] [address] Care Team Providers Care Pony Roll Finisher Name Role Phone Ginette Fortune MD Primary Care Provide r Reason for Referral * Consultation (Routine) - Authorized Specialty Diagnoses / Procedures Referred By Eula winston Referred To Contact Orthopaedic Surgery Diagnoses Acute pain of left knee Drea Monroy MD [address] [place] [id number] Phone: tel: fax: [facility] [address] [place] [address] [place] [address] Phone: tel: fax: Referral ID Status Reason Start Date Expiration Date Visits Requested Visits Authorized [id number] Authorized Specialty Services Required 11/14/2023 11/13/2024 1 1 Encounter Details Date Type Department Care Team (Late st Contact Info) Description 11/14/2023 Orders Only [facility] MED [facility] PEDS [address], [place] [phone] Drea Monroy MD [address], [place] [phone] Acute pain of left knee (Primary Dx) [...] 12/16/2024 9:15 AM EDT Office Visit [facility] MEDICINE [address] [place] [address] Ginette Fortune MD [address] [place] [address] Scheduled Referrals Name Type Priority Associated Diagnoses [...] documented as of this encounter Care Teams Pony Roll Finisher Relationship Specialty Start Date End Date Ginette Fortune MD [address] [place] [address] PCP - General Internal Medicine 10/27/23 documented as of this encounter
== END ==
LOC: HO.NUCMED 08:19
PROVIDERS: PCP Internal Medicine; Visit Provider Nurse Practitioner Family
DX: R10.9 Unspecified abdominal pain (principal); N13.30 Unspecified hydronephrosis
CPT/HCPCS: 78708; A9539; J1938

== ENCOUNTER → 2024-09-28 08:20 | Outpatient (BNV) | payer OTHER, SELFPAY | PROVIDERS: PCP Internal Medicine; Visit Provider Radiology Diagnostic Radiology | DX: N13.4 Hydroureter (principal) | CPT/HCPCS: 78708 ==

== ENCOUNTER 2024-11-16 10:06 | Outpatient (AMB) | payer OTHER, SELFPAY ==
--- NOTE | 2024-11-16 10:21 | A.OFFVIS_ITS ---
Intake Visit Reasons: (OV) PO LSG 08/22/21 Allergies latex (LATEX) Allergy (Mild, Verified 09/22/24 10:56) RASH metformin Adverse Reaction (Verified 09/22/24 10:56) Unknown HPI Comments Details: This is a 64 yo female who is s/p LSG 08/22/2021. Weight gain of 5lbs since last OV 3mo ago. No complaints of nausea, emesis, abdominal pain or reflux. Uses senna for constipation. Pt continues on Mounjaro 2.5mg prescribed by a weight management provider (Griffin Cuellar, [place]). Also sees this office for thyroid issues, having US to examine possible MNG. Had been having lower blood sugars at night. Now blood sugars are well controlled, pt has continuous glucose monitor. Checks BP at home, continues on lisinopril and amlodipine. Present meal plan includes: 2 Celebrate shakes- one in morning, one at night, each with 2 scoop in 8oz unsweetened almond milk 1 Celebrate protein bar 1 small meal of 2 forkfuls protein (cannot tolerate more, makes her sick), plus veg sometimes difficulty with meats (gets a stuck feeling) but tolerates eggs, yogurt without difficulty Exercise routine includes: walking on treadmill, upper body strength training 3 days a week for 60-90 minutes Pt had panniculectomy 07/15 at [facility] with Dr. Cooley. Cleared for all activity. She also reports Dr Bloom is considering a procedure for her to help with her hydronephrosis. [facility] Medical History Anxiety Depression GERD (gastroesophageal reflux disease) COVID-19 vaccine series completed Tachycardia Toxic multinodul goiter Chronic renal insufficiency Nephrolithiasis Cyst, kidney, acquired Diabetic neuropathy BMI 34.0-34.9,adult BMI 35.0-35.9,adult BMI 36.0-36.9,adult Pre-op evaluation B12 deficiency Obesity (BMI 30-39.9) Non-toxic multinodular goiter Dyslipidemia Diabetic 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 with type 2 diabetes mellitus FCI (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 insulin Distal radius fracture, right HTN (hypertension) Chronic kidney disease Diabetes type 2, uncontrolled Surgical History History of abdominoplasty History of surgery S/P fine needle aspiration S/P laparoscopic sleeve gastrectomy History of esophagogastroduodenoscopy (EGD) H/O colonoscopy Hx of biopsy History of partial hysterectomy History of total right knee replacement History of total left knee replacement (~2010) Hx of cholecystectomy History of section History of carpal tunnel release (~2017) Family History Father Hypertension Diabetes History of kidney cancer Mother Diabetes Hypertension Heart disease Brother Hypertension Diabetes Brother No problems noted. Son Hypertension Prediabetes Heart disease Daughter Prediabetes Social History Household Members: Spouse Housing: Apartment Are you a primary urgent care physician assistant to a significant other at home: No Do you presently have visiting nurse or other home services: No Alcohol intake: never Patient Tobacco Use Status: Never used Tobacco service: No Coding
[2024-11-16 10:26] VITALS: BP 181/84; PULSE 71; TEMP 39.3; O2SAT 98; BMI 31.3
--- NOTE | 2024-11-16 10:26 | MHC.OFFVISWM ---
VS Expanded 11/16/24 10:26 BP 181/84 H Blood Pressure Location Lt brachial Blood Pressure Position Sitting Pulse 71 Pulse Source Pulse Oximeter Temp 102.7 F H Temperature Source Temporal Artery Scan Pulse Oximetry 98 Oxygen Delivery Method Room Air Height 5 ft 1 in Weight 165 lb 8 oz BMI 31.3 Body Fat % 32.2 Body Fat Mass 53.4 Fat Free Mass 112.4 Visceral Fat Rating 9.0 Body Water % 48.0 Body Water Mass 79.6 Muscle Mass/Score 106.8 Basal Metabolic Rate/Score 1,502 Intake Visit Reasons: (OV) PO LSG 08/22/21 Graduate Research Assistant Required: Yes Graduate Research Assistant Name: [id number] Amezquita Information Interpreted: clinical only Allergies latex (LATEX) Allergy (Mild, Verified 09/22/24 10:56) RASH metformin Adverse Reaction (Verified 09/22/24 10:56) Unknown Medication List - Last Reconciled 11/16/24 by MADAN Nelson amlodipine 10 mg PO DAILY atorvastatin 40 mg PO BEDTIME blood sugar diagnostic (OneTouch Ultra Test strips) As directed 3 times a day blood sugar diagnostic As directed blood-glucose meter (OneTouch Ultra2 Meter) As directed docusate sodium 100 mg PO BID flash glucose sensor (FreeStyle Jame 2 Sensor kit) USE DIRECTED TO TEST BLOOD SUGAR. CHANGE EVERY 10 DAYS fluoxetine 40 mg PO DAILY fluticasone propionate 50 mcg/actuation 1 spray intranasal DAILY PRN FreeStyle Jame 2 [place] (flash glucose scanning reader) As directed NS FreeStyle Jame 3 Plus Sensor (blood-glucose sensor) every 15 days NS FreeStyle Jame 3 [place] (blood-glucose,enforcement manager,cont) As directed NS hydrochlorothiazide 12.5 mg PO DAILY lancets As directed lisinopril 40 mg PO DAILY Mounjaro (tirzepatide) 2.5 mg (0.5 mL) subcut QWEEK NS oxycodone 5 mg PO Q6H PRN pen needle, diabetic (Comfort EZ Pen [place]) As directed injects once a day sennosides (senna) 8.6 mg PO DAILY trazodone 50 - 150 mg PO BEDTIME PRN HPI Comments Details: This is a 64 yo female who is s/p LSG 08/22/2021. Weight gain of 5lbs since last OV 3mo ago. No complaints of nausea, emesis, abdominal pain or reflux. Uses senna for constipation. Pt continues on Mounjaro 2.5mg prescribed by a weight management provider (Griffin Cuellar, [place]). Had increased to 5mg but was getting lower blood sugars. Also sees this office for thyroid issues, had US to examine possible MNG and reports she will follow up with them in March. Thinks Mounjaro is helping blood sugars but just a little bit - less frequent low blood sugars, has continuous glucose monitor. Checks BP at home, continues on lisinopril and amlodipine. Following up with cardiology later today. Had purchased some products to help with hair loss so did not end up having to see derm. Pt had panniculectomy 07/15 at [facility] with Dr. Cooley. Present meal plan includes: 2 Celebrate shakes- one in morning, one at night, each with 2 scoop in 8oz unsweetened almond milk 1 Celebrate protein bar 1 small meal of 2 forkfuls protein (cannot tolerate more, makes her sick), plus veg sometimes difficulty with meats (gets a stuck feeling) but tolerates eggs, yogurt without difficulty Exercise routine includes: walking on treadmill, upper body strength training 3 days a week for 60-90 minutes Pt had panniculectomy 07/15 at [facility] with Dr. Cooley. 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 insulin Distal radius fracture, right HTN (hypertension) Chronic kidney disease Diabetes type 2, uncontrolled Surgical History History of abdominoplasty History of surgery S/P fine needle aspiration S/P laparoscopic sleeve gastrectomy History of esophagogastroduodenoscopy (EGD) H/O colonoscopy Hx of biopsy History of partial hysterectomy History of total right knee replacement History of total left knee replacement (~2010) Hx of cholecystectomy History of section History of carpal tunnel release (~2017) Family History Father Hypertension Diabetes History of kidney cancer Mother Diabetes Hypertension Heart disease Brother Hypertension Diabetes Brother No problems noted. Son Hypertension Prediabetes Heart disease Daughter Prediabetes Social History Household Members: Spouse Housing: Apartment Are you a primary healthcare associate to a significant other at home: No Do you presently have visiting nurse or other home services: No Alcohol intake: never Patient Tobacco Use Status: Never used Tobacco service: No Assessment & Plan Assessment & Plan (1) S/P laparoscopic sleeve gastrectomy: Comment: 08/22/21 Code(s): Z98.84 - Bariatric surgery status Category: Surgical (2) Obesity (BMI 30-39.9): Code(s): E66.9 - Obesity, unspecified Category: Medical Plan Pt had recent bloodwork with low TSH, has to follow up regarding correction of this. She is also experiencing episodes of hyperglycemia but has no insulin to correct this with. She is due to follow up with endocrinology tomorrow and I advised her to discuss this with them. Likely her thyroid issues and blood sugar issues are making weight loss more difficult for her. RTC 3mo.
--- OUTSIDE RECORDS SUMMARY | 2024-11-16 11:09 | XMS_ITS | Data Portability ---
Author Organization [place] [facility], [facility] Address [address] [place] [address] Assessment Encounter Date Assessment Date Assessment LastModified [...] may follow up with me as needed [email or web address] Not available 08/31/2024 12:24:31 Plan of Treatment Reminders Order Date Submit Date Provider Last Modified By Organization Details Last Modified Time Details Appointments None recorded. Lab None recorded. Referral None recorded. Procedures None recorded. Surgeries None recorded. Imaging XR, knee, 3 view - 2nd opinion post LTKR. 3v room 202 2024 025 [email or web address], [address], [address], [place], [address], 5 10:24:56 XR, knee, 3 view - 209, 3 views of right knee. 2024 [email or web address] [facility], [address], [address], [place], [address], 5 08:05:15 XR, knee, 3 view - rm 308 3 LTKR done in 2009 pain , no trauma 2023 024 [email or web address], [address], [address], [place], [address], 4 10:26:53 Medication Orders lidocaine 4 % topical patch [id number] [facility], [address] [place] [address], [id number], 5 15:55:51 Voltaren Arthritis Pain 1 % topical gel [address] [facility], [address] [place] [address], [id number], 5 08:05:15 meloxicam 15 mg tablet [address] [facility] [address] [facility], [address] [place] [address], [id number], 5 08:05:15 meloxicam 15 mg tablet 2023 024 [facility], [address] [place] [address], [id number], 4 10:00:54 Patient TargetsNo targets recorded. Patient InstructionsNo instructions recorded. Reason for Referral None Reported. Results Created Date Observation Date Name Description Value Unit Range Abnormal Flag Note LastModifiedBy Organization Detail LastModifiedTime 07/02/1929 0607/02/2024 CBC WITH DIFFE RENTI AL/PL ATELE T WBC 8.4 K/mm3 4.0-11 .0 normal Not Available [address], [address], 07/02/2024 15:57:53 07/02/19 25 07/02/2024 CBC WITH DIFFE RENTI AL/PL ATELE T RBC 4.84 M/mm3 4.20-5 .40 normal Not Available [address], [address], 07/02/2024 15:57:53 07/02/19 25 07/02/2024 CBC WITH DIFFE RENTI AL/PL ATELE T hemoglobin 13.5 gm/dL 11.7-1 5.5 normal Not Available [address], [address], 07/02/2024 15:57:53 07/02/19 25 07/02/2024 CBC WITH DIFFE RENTI AL/PL ATELE T hematocrit 42.2 % 35.7-4 5.8 normal Not Available [address], [address], 07/02/2024 15:57:53 07/02/19 25 07/02/2024 CBC WITH DIFFE RENTI AL/PL ATELE T MCV 87.2 fL 80.0-1 00.0 normal Not Available [address], [address], 07/02/2024 15:57:53 07/02/19 25 07/02/2024 CBC WITH DIFFE RENTI AL/PL ATELE T MCH 27.9 pg 27.0-3 4.0 normal Not Available [address], [address], 07/02/2024 15:57:53 07/02/19 25 07/02/2024 CBC WITH DIFFE RENTI AL/PL ATELE T MCHC 32.0 g/dL 33.0-3 7.0 below low normal Not Available [address], [address], 07/02/2024 15:57:53 07/02/19 25 07/02/2024 CBC WITH DIFFE RENTI AL/PL ATELE T RDW 43.8 fL <47.0 Not Available [address], [address], 07/02/2024 15:57:53 07/02/19 25 07/02/2024 CBC WITH DIFFE RENTI AL/PL ATELE T platelets 245 K/mm3 150-46 0 normal Not Available [address], [address], 07/02/2024 15:57:53 07/02/19 25 07/02/2024 CBC WITH DIFFE RENTI AL/PL ATELE T neutrophils 56.9 % 44-76 normal Not Available [address], [address], 07/02/2024 15:57:53 07/02/19 25 07/02/2024 CBC WITH DIFFE RENTI AL/PL ATELE T lymphs 28.9 % 15-43 normal Not Available [address], [address], 07/02/2024 15:57:53 07/02/19 25 07/02/2024 CBC WITH DIFFE RENTI AL/PL ATELE T monocytes 10.5 % 4.5-10 .5 normal Not Available [address], [address], 07/02/2024 15:57:53 07/02/19 25 07/02/2024 CBC WITH DIFFE RENTI AL/PL ATELE T eos 2.8 % 0-6 normal Not Available [address], [address], 07/02/2024 15:57:53 07/02/19 25 07/02/2024 CBC WITH DIFFE RENTI AL/PL ATELE T basos 0.7 % 0-2 normal Not Available [address], [address], 07/02/2024 15:57:53 07/02/19 25 07/02/2024 CBC WITH DIFFE RENTI AL/PL ATELE T neutrophils (absolute) 4.8 K/mm3 1.3-7. 0 normal Not Available [address], [address], 07/02/2024 15:57:53 07/02/19 25 07/02/2024 CBC WITH DIFFE RENTI AL/PL ATELE T lymphs (absolute) 2.4 K/mm3 0.8-3. 1 normal Not Available [address], [address], 07/02/2024 15:57:53 07/02/19 25 07/02/2024 CBC WITH DIFFE RENTI AL/PL ATELE T monocytes(ab solute) 0.9 K/mm3 0.4-0. 9 normal Not Available [address], [address], 07/02/2024 15:57:53 07/02/19 25 07/02/2024 CBC WITH DIFFE RENTI AL/PL ATELE T eos (absolute) 0.2 K/mm3 0.0-0. 4 normal Not Available [address], [address], 07/02/2024 15:57:53 07/02/19 25 07/02/2024 CBC WITH DIFFE RENTI AL/PL ATELE T baso (absolute) 0.1 K/mm3 0.0-0. 1 normal Not Available [address], [address], 07/02/2024 15:57:53 07/02/19 25 07/02/2024 CBC WITH DIFFE RENTI AL/PL ATELE T immature granulocytes 0.2 % Not Available [address], [address], 07/02/2024 15:57:53 07/02/19 25 07/02/2024 CBC WITH DIFFE RENTI AL/PL ATELE T immature grans (abs) 0.0 K/mm3 Not Available [address], [address], 07/02/2024 15:57:53 07/02/19 25 07/02/2024 CBC WITH DIFFE RENTI AL/PL ATELE T NRBC 0.0 #/100 _WBC' s Not Available [address], [address], 07/02/2024 15:57:53 07/02/19 25 07/02/2024 CBC WITH DIFFE RENTI AL/PL ATELE T hematology comments: Commen t AUTOM ATED DIFFE RENTI AL MPV 12.4 FL 9.4-1 2.4 N ABS. NRBC 0.0 K/MM3 N Not Available [address], [address], 07/02/2024 15:57:53 07/02/19 25 07/02/2024 SEDIM ENTAT ION RATE- WESTE RGREN sedimentatio n rate-westerg eulalia 4 mm/HR 0-20 normal Not Available [address], [address], 07/02/2024 15:57:55 07/02/19 25 07/02/2024 C-GIOVANNI CTIVE PROTE IN, QUANT C-reactive protein, quant <0.3 mg/dL 0-0.5 Not Available [address], [address], 07/02/2024 15:57:56 12/09/19 24 12/09/2023 XR, knee, 3 view [email or web address] ?Encry pted=s hAaTro YD8dLq bEUv6g %2BXZw aYqtaq 0bqfl% 2Fg9IQ a4ajBk vP9nXo QUaueC m3YtLR FvZlg [facility] 7u7469 AC0Kob 3qHVar eUC8mr 84%3D INTERFACE [facility] [address], [place], [address], 12/09/2023 14:08:56 12/09/19 24 12/09/2023 XR, knee, 3 view [email or web address] ?Encry pted=s hAaTro YD8dLq bEUv6g %2BXZw aYqtaq 0bqfl% 2Fg9IQ a4ajBk vP9nXo QUaueC m3YtLR FvZlg JJ8[place] HZtai3 4a2765 AC0Kob 3qHVar eUC8mr 84%3D INTERFACE [facility] [address], [place], [address], 12/09/2023 14:08:57 07/24/19 25 07/23/2024 XR, knee, 3 view [email or web address] ?Encry pted=s hAaTro YD8dLq bEUv6g %2BXZw aYqtaq 0bqfl% 2Fg9IQ a4ajBk vP9nXo QUaueC m3YtLR FvZl [address] 4f[address] AC0KqY niHU6q vKiQtr MwF INTERFACE [facility] [address], [place], [address], 07/23/2024 15:34:18 07/24/19 25 07/23/2024 XR, knee, 3 view [email or web address] ?Encry pted=s hAaTro YD8dLq bEUv6g %2BXZw aYqtaq 0bqfl% 2Fg9IQ a4ajBk vP9nXo QUaueC m3YtLR FvZlgJ JJ8mAn HZtai3 6b4185 AC0KqY niHU6q vKiQtr MwF INTERFACE [facility] [address] [address], [place], [address], 07/23/2024 15:34:20 09/01/19 25 08/31/2024 XR, knee, 3 view [email or web address] ?Encry pted=s hAaTro YD8dLq bEUv6g %2BXZw aYqtaq 0bqfl% 2Fg9IQ a4ajBk vP9nXo QUaueC m3YtLR FvZlgJ JJ8mAn HZtai3 7j1720 AC0Kla n6EUKa uKiQtr MwF INTERFACE [facility] [address] [address], [place], [address], 08/31/2024 11:17:33 09/01/19 25 08/31/2024 XR, knee, 3 view [email or web address] ?Encry pted=s hAaTro YD8dLq bEUv6g %2BXZw aYqtaq 0bqfl% 2Fg9IQ a4ajBk vP9nXo QUaueC m3YtLR FvZlgJ JJ8mAn HZtai3 0f2326 AC0Kla n6EUKa uKiQtr MwF INTERFACE [facility] [address], [address], 08/31/2024 11:17:35 Result Notes Documentation Provider Name and Address Organization Details Recorded Time Xr, Knee, 3 View : [email or web address] Encrypted=lxCbGjuTO4sGonM Uv6g%0SZHvhTlbkg0esfg%2Fg 2SIc0bmCfqW4jTkCRpcwNu8Hf OKTqGaqARO6uEdKZzjw64y189 8HS6Gat9eMZpqjQB7te35%3D Not Available [facility] 12/09/2023 14:0 8:56 Xr, Knee, 3 View : [email or web address] Encrypted=efGqApjBX3tCbeK Uv6g%4JKNzeRyuop7ufjg%2Fg 5MZt5spRbvX9hBjUTfgpWw3Oa AXXwUajTGC3uYqITmus73c367 6CG9Ibq4sMNipsBL1ym68%3D Not Available [facility] 12/09/2023 14:0 8:58 Xr, Knee, 3 View : [email or web address] Encrypted=ueIzTnpBH8zIgxL Uv6g%3XNGehLfdfj9tezu%2Fg 4QYk7gnQckN7vZvJFkqpNm4Px TLHfMcwLJD1ePaDGqwo28s457 3SH7OsIaeYU2usIvReeEbA Not Available [facility] 07/23/2024 15:34: 19 Xr, Knee, 3 View : [email or web address] Encrypted=bsNtNqoKC1vFyqD Uv6g%8FIFunRstbs4wtyz%2Fg 0WIq3yhVqbN6cVzFRhyhHr5So LQAwAdsMXQ5yCeUTked72r211 0FM9DmGosQZ0qwAgIpvPrL Not Available [facility] 07/23/2024 15:34: 21 Xr, Knee, 3 View : [email or web address] Encrypted=vcZxUpnMC0wFvsN Uv6g%0RHYqwOvaao2ealg%2Fg 2PXd1ceFydS5oVgJZhzsZu4In URTeJrhSUS3oRvECocq54l601 1NS0Hpjp1KVRlqWgSrhExI Not Available [facility] 08/31/2024 11:17: 34 Xr, Knee, 3 View : [email or web address] Encrypted=sjQpNtrYZ7qKqzG Uv6g%2KUJjjZtsve1xdoa%2Fg 9WWj9neNgyU9oByHVwslCr8Lz DUDzLrbNEI1sKuVNljc06y946 5FO4Fgeb7WMGleToYkrGcG Not Available [facility] 08/31/2024 11:17: 35 Problems Name Problem SNOMED Code Status Onset Date Resolution Date Notes Provider Name and Address Organization Details Recorded Time No complaints 745454298 Active Status : 'I'; Not Available [facility] 4 09:20:27 History of left total knee replacemen t 1538665343608 105 Active 2024 Renato Horner MD [address] [place], [place] [address]sy[address], [facility] [place], [address] , [facility] 5 12:24:30 Diabetes mellitus 19806405 Active 2018 Status : 'A'; Not Available [facility] 4 11:27:59 Osteoarthr itis 290153882 Active 2018 Status : 'A'; Not [facility] 4 11:27:59 Osteopenia 896707277 Active 2018 Status : 'A'; Not Available [facility] 4 11:27:59 Non-toxic multinodul ar goiter 03709642 Active 2018 Status : 'A'; Not Available [facility] 4 11:27:59 Kidney disease 85579553 Active 2018 Status : 'A'; Not Available [facility] 4 11:27:59 Hyperlipid emia 19990519 Active 2018 Status : 'A'; Not Available [facility] 4 11:27:59 Depressive disorder 59313744 Active 2018 Status : 'A'; Not Available [facility] 4 11:27:59 Neuropathy due to diabetes mellitus 199918924 Active 2018 Status : 'A'; Not Available [facility] 4 11:27:59 Problem Notes None recorded. Medical Equipment None Reported. Allergies Allergen ID Allergen Name Allergen Category Reaction Reaction Severity Criticality Documentation Date Start Date Code Code System Note Provider Name and Address Organization Details Recorded Time 74233 latex environme nt,medica tion Not available Not available Not available 07/07/20232016 03248 91 RxNorm Aller gyRea ction : 'Skin React ion'; Not Available [facility] 12:45:00 Medications Name Sig Start Date Stop Date Status Note LastModified by Organization Details LastModified Time fluoxetine 40 mg capsule TAKE 1 CAPSULE BY MOUTH EVERY MORNING active Not Available Not Available No t Available amoxicillin 500 mg capsule TAKE 4 CAPSULES BY MOUTH 1 HOUR BEFORE PROCEDURE active Not Available Not Available No t Available atorvastati n 40 mg tablet TAKE 1 TABLET BY MOUTH EVERY DAY AT BEDTIME active Not Available Not Available No t [...] Not Available Not Available No t Available diclofenac 1 % topical gel APPLY 1 GRAM TOPICALLY TO AFFECTED AREA(S) THREE OR FOUR TIMES DAILY DIRECTED active Not Available Not Available No t Available blood pressure test kit-large cuff USE TO CHECK BLOOD PRESSURE ONCE DAILY 08/31 completed Not Available Not Available Not Available Artificial Tears (xt762-ndza omell-glyce rin) 1 %-0.2 %-0.2 % eye [...] Available No t Available FreeStyle Jame 2 [place] USE DIRECTED active Not Available Not Available [...] Available Not Available Not Available FreeStyle Jame 3 [place] USE DIRECTED active Not Available Not Available No t Available FreeStyle Jame 3 Plus Sensor device APPLY 1 SENSOR AND CHANGE EVERY 15 DAYS USE DIRECTED TO TEST BLOOD SUGAR active Not Available Not Available No t Available Vitals Date Recorded Body weight Body mass index (BMI) Body height Provider Name and Address Organization Details Last Updated DateTime 07/23/2024 32020.63 g 34 kg/m2 154.94 cm Jordana Elise [facility] 07/23/2024 15:24:04 Date Recorded Body height Body mass index (BMI) Body weight Provider Name and Address Organization Details Last Updated DateTime 08/31/2024 155.58 cm 30.7 kg/m2 16900.71 g Emy Pitts [facility] 08/31/2024 11:02:16 Social History Question Answer Notes LastModified by OrganizIntraStage ion Details LastModified Time Tobacco Smoking Status Never Smoker Emy serrano [facility] 08/31/2024 11:05:25 What Is Your Relationship Status? Information not available 08/31/2024 Sex: Unknown Functional [...] SNOMED-CT Code Diagnosis ICD10 Code Diagnosis Note [id number] RAMÍREZ Michaud [address] [place] [address] 12/09/2023 13:52:34 12/31/2023 10:26:53 Knee joint prosthesis present 0893001301 02 Z96.651 History of total knee arthroplasty 8023997268 105 Z96.277 [id number] RAMÍREZ [facility] [address] [place] [address] 07/23/2024 13:48:59 08/12/2024 12:55:47 History of right total knee replacement 1812011988 758561 Z96.651 Pes anseri nus bursitis of right knee 6760579787 203436 M70.51 [id number] MD SYLWIA Braga [facility] [address] [place] [address] 08/31/2024 10:51:40 09/06/2024 10:24:56 History of left total knee replacement 9363271556 170935 Z96.652 Health Concerns Section Related Observation LastModified by Organization Detai ls LastModified Time None Recorded Concern Status LastModified by Organization Details LastModified Time None Recorded Advance Directives Directive None Recorded Payers Insurance Date Sequence Insurance Name Policy Number Policy Grant Covered Member ID Grant Member ID Guarantor Name 09/06/2024 1 [facility] - DOS ON OR AFTER 2022 - ONE CARE (MEDICARE REPLACEMENT/ADV ANTAGE - HMO) Rosie bhakta [id number] Rosie Parisi Notes Date Note Type Note Provider Name and Address Organization Details Recorded Time 12/09/2023 text/html I am seeing the patient today under the supervision of Dr. Mckinnon who was available but who did not see the patient. HPI: Rosie presents to the office for an evaluation of her left knee. She is status post left total knee arthroplasty performed in [place] in 2009. She subsequently developed an infection [...] and lucid. Normal insight, affect and grooming. 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 No spasticity or clonus noted. EXAMINATION: The patient is well appearing and in no apparent distress. Alert and oriented x3. Gait is antalgic. Left knee reveals a surgical scar over the [...] compartments soft and compressible. Labs performed at [facility] recently reveal a sed rate of 6, CRP 0.3, WBC 8.6. X-rays ordered, obtained and reviewed at [facility] today include 3 views of the [...] office. All questions answered. Oxana Rodriguez PA-C [address] [facility] [address], [place], [address], [facility] 12/09/2023 17:08:14 07/23/2024 text/html I am seeing [...] reviewed, updated and is located in the patient s chart. Examination: Well-appearing 64-year-old female in [...] back as needed. Hernan Banuelos PA-C [address], [place], [address], [facility] 07/23/2024 15:52:38 08/31/2024 text/html History of prese nt illness:Rosie presents today for evaluation for her left knee. To review in brief, I proceed replaced her right knee, her left knee was replaced years ago in [place] and had to be revised one year [...] and updated, and is located in the patient s chart. Renato Horner MD [address], [place], [address], [facility] 08/31/2024 12:24:51 OBGyn Episode No OBEpisode recorded.
--- OUTSIDE RECORDS SUMMARY | 2024-11-16 11:09 | XMS_ITS | Encounter Summary ---
Author Organization [facility] Address [address] [place] [address] Phone Care Team Providers Care National Flatbed Truck Driver Name Role Phone Ashkan Jacobson MD Primary Care Provider [phone] Encounter Details Date Type Department Care Team (Late st Contact Info) Description 04/04/2022 Documentation Only [facility], [address] [place] [address] Macy Giraldo PA Social History [...] on filedocumented in this encounter Care Teams National Flatbed Truck Driver Relationship Specialty Start Date End Date Ashkan Jacobson MD [address] [place] [address] [address] [place], [place] PCP - General 03/09/19 documented as of this encounter
--- OUTSIDE RECORDS SUMMARY | 2024-11-16 11:09 | XMS_ITS | Encounter Summary ---
Author Organization [facility] [facility] Address [address] [address] Care Team Providers Care Hand Binder Stripper Name Role Phone Ginette Fortune MD Primary Care Provide r Reason for Referral * Consultation (Routine) - Closed Specialty Diagnoses / Procedures Referred By Eula winston Referred To Contact Orthopaedic Surgery Diagnoses Acute pain of left knee Drea Monroy MD [address] [place] [address] Phone: tel: fax: [facility] [address] [place] [address] [place] [address] Phone: tel: fax: Referral ID Status Reason Start Date Expiration Date V isits Requested Visits Authorized [id number] Closed Specialty Services Required 11/14/2023 11/13/2024 1 1 Encounter Details Date Type Department Care Team (Late st Contact Info) Description 11/14/2023 Orders Only [facility] [address], [place] [phone] Drea Monroy MD [address], [place] [phone] Acute pain of left knee (Primary Dx) [...] Description 12/16/2024 9:15 AM EDT Office Visit [facility] [address] [place] [address] Ginette Fortune MD [address] [place] [address] Scheduled Referrals Name Type Priority Associated Diagnoses [...] documented as of this encounter Care Teams Hand Binder Stripper Relationship Specialty Start Date End Date Ginette Fortune MD [address] [place] [address] PCP - General Internal Medicine 10/27/23 documented as of this encounter
== END 2024-11-16 10:51 | disposition home or self-care (01) ==
LOC: HO.HBS 10:07
PROVIDERS: PCP Internal Medicine; Visit Provider Physician Assistant Surgical
DX: E66.9 Obesity, unspecified (principal); Z68.31 Body mass index [BMI] 31.0-31.9, adult; Z90.3 Acquired absence of stomach [part of]; Z98.84 Bariatric surgery status
CPT/HCPCS: 99213; G2211

== ENCOUNTER → 2024-11-16 10:06 | Outpatient (BNVA) | payer OTHER, SELFPAY | PROVIDERS: PCP Internal Medicine; Visit Provider Physician Assistant Surgical | DX: E11.65 Type 2 diabetes mellitus with hyperglycemia (principal); I48.91 Unspecified atrial fibrillation; E78.5 Hyperlipidemia, unspecified; I10 Essential (primary) hypertension; Z98.84 Bariatric surgery status; E66.9 Obesity, unspecified | CPT/HCPCS: 99212 ==

== ENCOUNTER 2024-11-16 14:47 | Outpatient (AMB) | payer OTHER, SELFPAY ==
[2024-11-16 15:03] VITALS: BP 130/82; PULSE 78; BMI 31.7
--- NOTE | 2024-11-16 15:03 | A.OFFVIS_ITS ---
Vital Signs 11/16/24 15:03 Height 5 ft 1 in Weight 167 lb 8.821 oz BMI 31.7 BP 130/82 Blood Pressure Location Lt brachial Position Sitting Pulse 78 Pulse Source Pulse Oximeter Intake Visit Reasons: 2 mth f/up holter/ echo Intake Note: 2 mth f/up-holter/echo Specialty Finishing Utility Person Required: Yes Specialty Finishing Utility Person Language: Water Hauler Name: [id number] Accompanied by: Significant Other Allergies latex (LATEX) Allergy (Mild, Verified 09/22/24 10:56) RASH metformin Adverse Reaction (Verified 09/22/24 10:56) Unknown Medication List - Last Reconciled 11/16/24 by Steven Franz NP amlodipine 10 mg PO DAILY atorvastatin 40 mg PO BEDTIME blood sugar diagnostic (Tinypay.meTouch Ultra Test strips) As directed 3 times a day blood sugar diagnostic As directed blood-glucose meter (Tinypay.meTouch Ultra2 Meter) As directed docusate sodium 100 mg PO BID flash glucose sensor (FreeStyle Jame 2 Sensor kit) USE DIRECTED TO TEST BLOOD SUGAR. CHANGE EVERY 10 DAYS fluoxetine 40 mg PO DAILY fluticasone propionate 50 mcg/actuation 1 spray intranasal DAILY PRN FreeStyle Jame 2 [place] (flash glucose scanning reader) As directed NS FreeStyle Jame 3 Plus Sensor (blood-glucose sensor) every 15 days NS FreeStyle Jame 3 [place] (blood-glucose,disease case manager rn,cont) As directed NS hydrochlorothiazide 12.5 mg PO DAILY lancets As directed lisinopril 40 mg PO DAILY Mounjaro (tirzepatide) 2.5 mg (0.5 mL) subcut QWEEK NS oxycodone 5 mg PO Q6H PRN pen needle, diabetic (Comfort EZ Pen [place]) As directed injects once a day sennosides (senna) 8.6 mg PO DAILY trazodone 50 - 150 mg PO BEDTIME PRN HPI Comments Details: This is a 64-year-old female patient coming in for a follow-up visit, accompanied by her . A interpreter for the deaf was used throughout the visit. Patient with history of hypertension, hyperlipidemia, diabetes, and reported history of AFib status post ablation in 2013 in [place] for which we still have no records of and patient isn't able to get her records from [place] either. Patient was previously seen in the office for chest discomfort and blood pressure management and underwent a coronary CTA. At the following appointment, patient reported symptoms of heart palpitations and with a history of AFib , patient underwent a Holter study which was normal. Today, patient reports ongoing dizziness that is intermittent and can be random in nature. Patient reports that she had these similar symptoms when she had AFib back in the past. Patient is otherwise denying any exertional chest pain, diana rtness of breath, orthopnea, PND, leg edema, presyncope or syncope. Patient is reporting compliance with the medications however patient is stating that she has been having hard time controlling her blood sugars at home ranging from 170- 240. 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 Distal radius fracture, right HTN (hypertension) Chronic kidney disease Diabetes type 2, uncontrolled Surgical History History of abdominoplasty History of surgery S/P fine needle aspiration S/P laparoscopic sleeve gastrectomy History of esophagogastroduodenoscopy (EGD) H/O colonoscopy Hx of biopsy History of partial hysterectomy History of total right knee replacement History of total left knee replacement (~2010) Hx of cholecystectomy History of section History of carpal tunnel release (~2017) Family History Father Hypertension Diabetes History of kidney cancer Mother Diabetes Hypertension Heart disease Brother Hypertension Diabetes Brother No problems noted. Son Hypertension Prediabetes Heart disease Daughter Prediabetes Social History Household Members: Spouse Housing: Apartment Are you a primary home care music therapist to a significant other at home: No Do you presently have visiting nurse or other home services: No Alcohol intake: never Patient Tobacco Use Status: Never used Tobacco service: No Physical Exam Vital Signs: Last Vital Signs Pulse 78 11/16/24 15:03 BP 130/82 11/16/24 15:03 BMI result Body Mass Index 31.7 Const General: cooperative, healthy appearing, comfortable and no acute distress Orientation/consciousness: patient oriented x3 HEENT Head: Yes normal to inspection Neck Neck: Yes normal visual inspection, Yes trachea midline and Yes supple Chest Chest palpation & inspection: normal inspection of the chest Resp Effort & Inspection: normal respiratory effort Auscultation: clear to auscultation bilaterally, no crackles, no rales, no rhonchi and no wheezes Cardio Jugular venous distension: no JVD Palpation: normal PMI Rate: regular rate Rhythm: regular rhythm Heart sounds: S1 normal heart sound present, S2 normal heart sound present, no click, no gallops, no murmurs and no rubs Peripheral pulses: Peripheral pulses 2+ throughout GI Inspection: Yes normal to inspection Palpation (GI): Soft to palpation Auscultation: normal bowel sounds Skin General skin exam: no rashes or lesions noted Neuro General: patient oriented x3 Extrem General: Yes normal to inspection, No no pedal edema and No calf tenderness Psych Appearance: grossly normal Mental Status: mental status grossly normal Speech and movement: Normal speech and movement present Assessment & Plan Assessment & Plan (1) Afib: Code(s): I48.91 - Unspecified atrial fibrillation Category: Medical Plan: 08/12/2024- patient underwent a coronary CTA for complaints of chest discomfort that showed mild stenosis in the proximal and mid LAD, scattered and mixed noncalcified disease throughout the descending thoracic aorta, and less than 6 mm pulmonary nodules. History of AFib with ablation in 2013 per patient in [place], however, we EF still no official records of this and patient has not been able to obtain her old records. Patient was on Eliquis and metoprolol therapy status post ablation however due to relocation in [place], patient was not able to continue these medications due to lack of PCP. Given her ongoing symptoms even though normal Holter study recently which was wore for 7 days, we will proceed with anticoagulation therapy with Eliquis 5 mg b.i.d.. Kevin Vasc risk score of 3. We will obtain a 30 day cardiac event monitor. Patient also states that she is already on metoprolol for rate control, unsure of the dosage- we will check this with pharmacy. We will also obtain labs in 1 month following restarting anticoagulation. (2) HTN (hypertension): Code(s): I10 - Essential (primary) hypertension Category: Medical Plan: Blood pressure today is within normal limits. Continue current regimen. Advised monitoring blood pressures at home with a goal less than 130/80. (3) Dyslipidemia: Code(s): E78.5 - Hyperlipidemia, unspecified Category: Medical Plan: Continue statin therapy with the LDL goal less than 70. Patient already has a order for lipid profile which she will complete in a month. (4) Diabetes type 2, uncontrolled: Comment: glucose usually ~ 138-180 Code(s): E11.65 - Type 2 diabetes mellitus with hyperglycemia Category: Medical Plan: Continue aggressive diabetes management with an A1c goal less than 7%. Followed by endocrinology. Advised heart healthy diet, regular exercise, adequate hydration, avoiding caffeinated beverages and alcohol, med compliance, and aggressive management of vascular risk factors. Follow-up after completion of the cardiac event monitor. In the interim, patient will call the office with any concerns or change in symptoms. This note was generated using voice recognition software. While every effort has been made to ensure accuracy and proper hog driver, there may be occasional errors that could affect the content or meaning of the described symptoms. Orders: Orders ECG 30 day event monitor Today I48.91 - Unspecified atrial fibrillation Complete Blood Count no Diff 1 Month I48.91 - Unspecified atrial fibrillation Basic Metabolic Panel 1 Month I48.91 - Unspecified atrial fibrillation Medications: New apixaban 5 mg PO BID 90 tabs 3RF Coding Level of Care Code Est Pt Level 4 (93255) Complex EM visit Add On G2211 Diagnoses Afib I48.91 HTN (hypertension) I10 Dyslipidemia E78.5 Diabetes type 2, uncontrolled E11.65 Time Spent (min) 32 Comment Time spent in reviewing the chart, test results, assessment, counseling and documentation.
== END 2024-11-16 15:40 | disposition home or self-care (01) ==
LOC: HO.HCS 14:47
PROVIDERS: PCP Internal Medicine
DX: I48.91 Unspecified atrial fibrillation (principal); I10 Essential (primary) hypertension; E78.5 Hyperlipidemia, unspecified; E11.65 Type 2 diabetes mellitus with hyperglycemia
CPT/HCPCS: 99214; G2211

== ENCOUNTER 2024-11-17 13:14 | Outpatient (AMB) | payer OTHER, SELFPAY ==
--- NOTE | 2024-11-17 13:19 | A.OFFVIS_ITS ---
Vital Signs 11/17/24 13:25 Height 5 ft 1 in Weight 167 lb 8.821 oz BMI 31.7 Blood Pressure Location Rt brachial Position Sitting Pulse 78 Pulse Source Pulse Oximeter Pulse Oximetry (%) 98 Oxygen Delivery Method Room Air Intake Visit Reasons: T2DM Intake Note: Patient presents today for a follow-up for Type 2 Diabetes Mellitus: Last Diabetic eye exam was on: 02/03/2024 Last Podiatry exam was on: Does not see a Urology Nurse Most recent HbA1c: DUE%, 11/18/2023 Random Glucose- 96 mg/dL, Today Hose Tender Required: Yes Hose Tender Language: Collar Packer Services: Hose Tender Present Hose Tender Name: JAN Encarnacion Accompanied by: Significant Other Allergies latex (LATEX) Allergy (Mild, Verified 11/17/24 13:35) RASH metformin Adverse Reaction (Verified 11/17/24 13:35) Unknown HPI Comments Details: 64 yo female presenting for diabetes follow up Medical history of depression, osteoporosis, right renal hydronephrosis, hypertension, hyperlipidemia, non toxic multinodular goiter She has DM type 2 diagnosed 20 years ago. Current prescription: Mounjaro 2.5 weekly Previously on Lantus 15 units, Trulicity 1.5 mg weekly Jame 2 downloaded TGT 83%, 17% high, 0% low, GMI 6.8% POC A1C is 7.2% from 6.6 from 6.9%. she would like to try to go back up on her mounjaro to 5mg She has neuropathy, retinopathy, has CKD with creatinine worsening and sees nephrology. She has also been following with urology for hypdronephrosis and UTI Eye exam UTD. stable retinopathy. M[facility]-following with Dr Zina MANDUJANO CONSTITUTIONAL: Denies weight loss, fever and chills. HEENT: Denies changes in vision and hearing. RESPIRATORY: Denies SOB and cough. CV: Denies palpitations and CP GI: Denies abdominal pain, nausea, vomiting and diarrhea. : Denies dysuria and urinary frequency. MSK: Denies new myalgia and joint pain. SKIN: Denies rash and pruritus. NEUROLOGICAL: Denies headache PSYCHIATRIC: Denies recent changes in mood. PHYSICAL EXAM: GENERAL: Alert and oriented x 3. NAD EYES: EOMI. Anicteric. HENT: Moist mucous membranes. No scleral icterus. Heterogenous thyroid LUNGS: Clear to auscultation bilaterally. CARDIOVASCULAR: Regular rate and rhythm. No murmur. No JVD. ABDOMEN: Soft, non-tender +bs EXTREMITIES: No edema. Non-tender. SKIN: No rashes or lesions. Warm. NEUROLOGIC: No focal neurological deficits. CN II-XII grossly intact PSYCHIATRIC: Cooperative. 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 Distal radius fracture, right HTN (hypertension) Chronic kidney disease Diabetes type 2, uncontrolled Surgical History History of abdominoplasty History of surgery S/P fine needle aspiration S/P laparoscopic sleeve gastrectomy History of esophagogastroduodenoscopy (EGD) H/O colonoscopy Hx of biopsy History of partial hysterectomy History of total right knee replacement History of total left knee replacement (~2010) Hx of cholecystectomy History of section History of carpal tunnel release (~2017) Family History Father Hypertension Diabetes History of kidney cancer Mother Diabetes Hypertension Heart disease Brother Hypertension Diabetes Brother No problems noted. Son Hypertension Prediabetes Heart disease Daughter Prediabetes Social History Household Members: Spouse Housing: Apartment Are you a primary rehab care assistant to a significant other at home: No Do you presently have visiting nurse or other home services: No Alcohol intake: never Patient Tobacco Use Status: Never used Tobacco service: No Physical Exam Vital Signs: Last Vital Signs Pulse 78 11/17/24 13:25 Pulse Ox 98 11/17/24 13:25 Oxygen Delivery Method Room Air 11/17/24 13:25 BMI result Body Mass Index 31.7 Assessment & Plan Assessment & Plan (1) Diabetes type 2, uncontrolled: Code(s): E11.65 - Type 2 diabetes mellitus with hyperglycemia Category: Medical Qualifiers: Glycemic state: with hyperglycemia Qualified Code(s): E11.65 - Type 2 diabetes mellitus with hyperglycemia Plan DM type 2. slightly suboptimal. Increase mounjaro to 5mg. We discussed that she was previously on this dose and preferred the 2.5mg but in light of increased numbers she would like to retry Discussed we could have her try oral medications, go back on insulin etc but for now she would like to increase the mounjaro dose Treat hypoglycemia with rules of 15s. Medications: New Mounjaro (tirzepatide) 5 mg (0.5 mL) subcut QWEEK 6 mL 3RF NS Discontinued Mounjaro (tirzepatide) Discontinued Reason: Doctor's Order 2.5 mg (0.5 mL) subcut QWEEK 2 mL 3RF NS Coding Level of Care Code Est Pt Level 4 (25518) Diagnoses Uncontrolled type 2 diabetes mellitus with hyperglycemia E11.65 Glycemic state: with hyperglycemia
[2024-11-17 13:25] VITALS: PULSE 78; O2SAT 98; BMI 31.7
[2024-11-17 13:38] LABS: Glucose, Whole Blood 96 mg/dL (60-115)
--- OUTSIDE RECORDS SUMMARY | 2024-11-17 14:04 | XMS_ITS | Encounter Summary ---
Author Organization [facility] Address [address] [place] [address] Phone Care Team Providers Care Truck Body Builder Name Role Phone Ashkan Jacobson MD Primary Care Provider [phone] Encounter Details Date Type Department Care Team (Late st Contact Info) Description 04/04/2022 Documentation Only [facility], [address] [place] [address] Mayc Giraldo PA Social History Tobacco Use Types [...] on filedocumented in this encounter Care Teams Truck Body Builder Relationship Specialty Start Date End Date Ashkan Jacobson MD [address] [place] [address] [address] [place], [place] PCP - General 03/09/19 documented as of this encounter
--- OUTSIDE RECORDS SUMMARY | 2024-11-17 14:04 | XMS_ITS | Data Portability ---
Author Organization [place] [facility], [facility] Address [address] [place] [address] Assessment Encounter Date Assessment Date Assessment LastModified [...] may follow up with me as needed [email or web address] Not available 08/31/2024 12:24:31 Plan of Treatment Reminders Order Date Submit Date Provider Last Modified By Organization Details Last Modified Time Details Appointments None recorded. Lab None recorded. Referral None recorded. Procedures None recorded. Surgeries None recorded. Imaging XR, knee, 3 view - 2nd opinion post LTKR. 3v room 202 2024 025 [email or web address], [address], [place], [address], 5 10:24:56 XR, knee, 3 view - 209, 3 views of right knee. 2024 [email or web address] [facility], [address], [place], [address], 5 08:05:15 XR, knee, 3 view - rm 308 3 LTKR done in 2009 pain , no trauma 2023 024 [email or web address], [address], [place], [address], 4 10:26:53 Medication Orders lidocaine 4 % topical patch [email or web address] [facility], [address] [place] [address], [id number], 5 15:55:51 Voltaren Arthritis Pain 1 % topical gel [address] [facility] [address] [facility], [address] [place] [address], [id number], 5 08:05:15 meloxicam 15 mg tablet [address] [facility] [address] [facility], [address] [place] [address], [id number], 5 08:05:15 meloxicam 15 mg tablet 2023 024 [facility], [address] [place] [address], [id number], 4 10:00:54 Patient TargetsNo targets recorded. Patient InstructionsNo instructions recorded. Reason for Referral None Reported. Results Created Date Observation Date Name Description Value Unit Range Abnormal Flag Note LastModifiedBy Organization Detail LastModifiedTime 07/02/1929 0607/02/2024 CBC WITH DIFFE RENTI AL/PL ATELE T WBC 8.4 K/mm3 4.0-11 .0 normal Not Available [address], [address], 07/02/2024 15:57:53 07/02/19 25 07/02/2024 CBC WITH DIFFE RENTI AL/PL ATELE T RBC 4.84 M/mm3 4.20-5 .40 normal Not Available [address], [address], 07/02/2024 15:57:53 07/02/19 25 07/02/2024 CBC WITH DIFFE RENTI AL/PL ATELE T hemoglobin 13.5 gm/dL 11.7-1 5.5 normal Not Available [address], [address], 07/02/2024 15:57:53 07/02/19 25 07/02/2024 CBC WITH DIFFE RENTI AL/PL ATELE T hematocrit 42.2 % 35.7-4 5.8 normal Not Available [address], [address], 07/02/2024 15:57:53 07/02/19 25 07/02/2024 CBC WITH DIFFE RENTI AL/PL ATELE T MCV 87.2 fL 80.0-1 00.0 normal Not Available [address], [address], 07/02/2024 15:57:53 07/02/19 25 07/02/2024 CBC WITH DIFFE RENTI AL/PL ATELE T MCH 27.9 pg 27.0-3 4.0 normal Not Available [address], [address], 07/02/2024 15:57:53 07/02/19 25 07/02/2024 CBC WITH DIFFE RENTI AL/PL ATELE T MCHC 32.0 g/dL 33.0-3 7.0 below low normal Not Available [address], [address], 07/02/2024 15:57:53 07/02/19 25 07/02/2024 CBC WITH DIFFE RENTI AL/PL ATELE T RDW 43.8 fL <47.0 Not Available [address], [address], 07/02/2024 15:57:53 07/02/19 25 07/02/2024 CBC WITH DIFFE RENTI AL/PL ATELE T platelets 245 K/mm3 150-46 0 normal Not Available [address], [address], 07/02/2024 15:57:53 07/02/19 25 07/02/2024 CBC WITH DIFFE RENTI AL/PL ATELE T neutrophils 56.9 % 44-76 normal Not Available [address], [address], 07/02/2024 15:57:53 07/02/19 25 07/02/2024 CBC WITH DIFFE RENTI AL/PL ATELE T lymphs 28.9 % 15-43 normal Not Available [address], [address], 07/02/2024 15:57:53 07/02/19 25 07/02/2024 CBC WITH DIFFE RENTI AL/PL ATELE T monocytes 10.5 % 4.5-10 .5 normal Not Available [address], [address], 07/02/2024 15:57:53 07/02/19 25 07/02/2024 CBC WITH DIFFE RENTI AL/PL ATELE T eos 2.8 % 0-6 normal Not Available [address], [address], 07/02/2024 15:57:53 07/02/19 25 07/02/2024 CBC WITH DIFFE RENTI AL/PL ATELE T basos 0.7 % 0-2 normal Not Available [address], [address], 07/02/2024 15:57:53 07/02/19 25 07/02/2024 CBC WITH DIFFE RENTI AL/PL ATELE T neutrophils (absolute) 4.8 K/mm3 1.3-7. 0 normal Not Available [address], [address], 07/02/2024 15:57:53 07/02/19 25 07/02/2024 CBC WITH DIFFE RENTI AL/PL ATELE T lymphs (absolute) 2.4 K/mm3 0.8-3. 1 normal Not Available [address], [address], 07/02/2024 15:57:53 07/02/19 25 07/02/2024 CBC WITH DIFFE RENTI AL/PL ATELE T monocytes(ab solute) 0.9 K/mm3 0.4-0. 9 normal Not Available [address], [address], 07/02/2024 15:57:53 07/02/19 25 07/02/2024 CBC WITH DIFFE RENTI AL/PL ATELE T eos (absolute) 0.2 K/mm3 0.0-0. 4 normal Not Available [address], [address], 07/02/2024 15:57:53 07/02/19 25 07/02/2024 CBC WITH DIFFE RENTI AL/PL ATELE T baso (absolute) 0.1 K/mm3 0.0-0. 1 normal Not Available [address], [address], 07/02/2024 15:57:53 07/02/19 25 07/02/2024 CBC WITH DIFFE RENTI AL/PL ATELE T immature granulocytes 0.2 % Not Available [address], [address], 07/02/2024 15:57:53 07/02/19 25 07/02/2024 CBC WITH DIFFE RENTI AL/PL ATELE T immature grans (abs) 0.0 K/mm3 Not Available [address], [address], 07/02/2024 15:57:53 07/02/19 25 07/02/2024 CBC WITH DIFFE RENTI AL/PL ATELE T NRBC 0.0 #/100 _WBC' s Not Available [address], [address], 07/02/2024 15:57:53 07/02/19 25 07/02/2024 CBC WITH DIFFE RENTI AL/PL ATELE T hematology comments: Commen t AUTOM ATED DIFFE RENTI AL MPV 12.4 FL 9.4-1 2.4 N ABS. NRBC 0.0 K/MM3 N Not Available [address], [address], 07/02/2024 15:57:53 07/02/19 25 07/02/2024 SEDIM ENTAT ION RATE- WESTE RGREN sedimentatio n rate-westerg eulalia 4 mm/HR 0-20 normal Not Available [address], [address], 07/02/2024 15:57:55 07/02/19 25 07/02/2024 C-GIOVANNI CTIVE PROTE IN, QUANT C-reactive protein, quant <0.3 mg/dL 0-0.5 Not Available [address], [address], 07/02/2024 15:57:56 12/09/19 24 12/09/2023 XR, knee, 3 view [email or web address] ?Encry pted=s hAaTro YD8dLq bEUv6g %2BXZw aYqtaq 0bqfl% 2Fg9IQ a4ajBk vP9nXo QUaueC m3YtLR FvZlg JJ8[facility] 6u1864 AC0Kob 3qHVar eUC8mr 84%3D INTERFACE [facility] [address], [place], [address], 12/09/2023 14:08:56 12/09/19 24 12/09/2023 XR, knee, 3 view [email or web address] ?Encry pted=s hAaTro YD8dLq bEUv6g %2BXZw aYqtaq 0bqfl% 2Fg9IQ a4ajBk vP9nXo QUaueC m3YtLR FvZlg JJ8[facility] HZtai3 7x2781 AC0Kob 3qHVar eUC8mr 84%3D INTERFACE [facility] [address], [place], [address], 12/09/2023 14:08:57 07/24/19 25 07/23/2024 XR, knee, 3 view [email or web address] ?Encry pted=s hAaTro YD8dLq bEUv6g %2BXZw aYqtaq 0bqfl% 2Fg9IQ a4ajBk vP9nXo QUaueC m3YtLR FvZl [address] 1w[address] AC0KqY niHU6q vKiQtr MwF INTERFACE [facility] [address], [place], [address], 07/23/2024 15:34:18 07/24/19 25 07/23/2024 XR, knee, 3 view [email or web address] ?Encry pted=s hAaTro YD8dLq bEUv6g %2BXZw aYqtaq 0bqfl% 2Fg9IQ a4ajBk vP9nXo QUaueC m3YtLR FvZlgJ JJ8mAn HZtai3 3m5963 AC0KqY niHU6q vKiQtr MwF INTERFACE [facility] [address] [address], [place], [address], 07/23/2024 15:34:20 09/01/19 25 08/31/2024 XR, knee, 3 view [email or web address] ?Encry pted=s hAaTro YD8dLq bEUv6g %2BXZw aYqtaq 0bqfl% 2Fg9IQ a4ajBk vP9nXo QUaueC m3YtLR FvZlgJ JJ8mAn HZtai3 9j5131 AC0Kla n6EUKa uKiQtr MwF INTERFACE [facility] [address] [address], [place], [address], 08/31/2024 11:17:33 09/01/19 25 08/31/2024 XR, knee, 3 view [email or web address] ?Encry pted=s hAaTro YD8dLq bEUv6g %2BXZw aYqtaq 0bqfl% 2Fg9IQ a4ajBk vP9nXo QUaueC m3YtLR FvZlgJ JJ8mAn HZtai3 0n2516 AC0Kla n6EUKa uKiQtr MwF INTERFACE [facility] [address], [address], 08/31/2024 11:17:35 Result Notes Documentation Provider Name and Address Organization Details Recorded Time Xr, Knee, 3 View : [email or web address] Encrypted=pwJdOilZT6yCwhT Uv6g%1JAFvgQugri1geaz%2Fg 2IJn9rfMadS2dQoWZtqmYo5Yw QCAoXzaPKX8bAoHVneo34m899 3DQ2Kyp2kKPfytLE1mf66%3D Not Available [facility] 12/09/2023 14:0 8:56 Xr, Knee, 3 View : [email or web address] Encrypted=stZjUmsCI1tPmgS Uv6g%6JHRzoXqxcp8qdml%2Fg 1NCr3qsGuoF0lIgKGfelIw9Ob ZDVaQzxQVC3wFvLJuvm25x898 7YA5Pkz2rMEjpfIJ0cp53%3D Not Available [facility] 12/09/2023 14:0 8:58 Xr, Knee, 3 View : [email or web address] Encrypted=dpHwDjpZQ4wNvhX Uv6g%8WERriZvjaf6zwqb%2Fg 4QNs9qxVwkP9dPiHUyrhPu0Lj HDXxBzuBSQ7mLzDQkiu89p793 7CM3DdLrpNE5qxKbFpiTjB Not Available [facility] 07/23/2024 15:34: 19 Xr, Knee, 3 View : [email or web address] Encrypted=hfGvXirIH7kKtpA Uv6g%1RWBcgZecns9setm%2Fg 5OOx6uzBqeS1oEvIKkdlEv1Cx SJCzYfcNXF2xReNSmrm22h297 5MQ4IkTiaZN4kiEkEdgTaP Not Available [facility] 07/23/2024 15:34: 21 Xr, Knee, 3 View : [email or web address] Encrypted=ngUhAcrUT7yBriM Uv6g%3IQXpjEzqfw8dffc%2Fg 5QPl7rjXqfR2vPxXElkmVf1Rb SHXvWqkXNH3aHkFJxxa32w891 2FZ1Gbzw9CTRimZzLawHjJ Not Available [facility] 08/31/2024 11:17: 34 Xr, Knee, 3 View : [email or web address] Encrypted=bpJiKbuNQ6bAzvI Uv6g%6QHXkiMbsqs0ojzl%2Fg 0OFh6uoWdoC7oRwFJctiDf0Uy LXGkRepYBK4bOjRBjey81g705 7FY3Qknt0FYBxyXuOkuBpX Not Available [facility] 08/31/2024 11:17: 35 Problems Name Problem SNOMED Code Status Onset Date Resolution Date Notes Provider Name and Address Organization Details Recorded Time No complaints 464954392 Active Status : 'I'; Not Available [facility] 4 09:20:27 History of left total knee replacemen t 4462649017740 105 Active 2024 Renato Horner MD [address] [place], [place] [address]sy[address], [place], [address] , [facility] [place] [facility] 5 12:24:30 Diabetes mellitus 22627601 Active 2018 Status : 'A'; Not Available [facility] 4 11:27:59 Osteoarthr itis 788019104 Active 2018 Status : 'A'; Not Available [facility] 4 11:27:59 Osteopenia 276563876 Active 2018 Status : 'A'; Not Available [facility] 4 11:27:59 Non-toxic multinodul ar goiter 30101214 Active 2018 Status : 'A'; Not Available [facility] 4 11:27:59 Kidney disease 57624802 Active 2018 Status : 'A'; Not Available [facility] 4 11:27:59 Hyperlipid emia 44321043 Active 2018 Status : 'A'; Not Available [facility] 4 11:27:59 Depressive disorder 25534472 Active 2018 Status : 'A'; Not Available [facility] 4 11:27:59 Neuropathy due to diabetes mellitus 832354985 Active 2018 Status : 'A'; Not Available [facility] 4 11:27:59 Problem Notes None recorded. Medical Equipment None Reported. Allergies Allergen ID Allergen Name Allergen Category Reaction Reaction Severity Criticality Documentation Date Start Date Code Code System Note Provider Name and Address Organization Details Recorded Time 98189 latex environme nt,medica tion Not available Not available Not available 07/07/20232016 51605 91 RxNorm Aller gyRea ction : 'Skin React ion'; Not Available [facility] 12:45:00 Medications Name Sig Start Date [...] Available Not Available Not Available Artificial Tears (cu088-legy omell-glyce rin) 1 %-0.2 %-0.2 % eye [...] Available No t Available FreeStyle Jame 2 [facility] USE DIRECTED active Not Available Not Available [...] Not Available Not Available FreeStyle Jame 3 [facility] USE DIRECTED active Not Available Not Available No t Available FreeStyle Jame 3 Plus Sensor device APPLY 1 SENSOR AND CHANGE EVERY 15 DAYS USE DIRECTED TO TEST BLOOD SUGAR active Not Available Not Available No t Available Vitals Date Recorded Body weight Body mass index (BMI) Body height Provider Name and Address Organization Details Last Updated DateTime 07/23/2024 91496.63 g 34 kg/m2 154.94 cm Jordana Elise [facility] 07/23/2024 15:24:04 Date Recorded Body height Body mass index (BMI) Body weight Provider Name and Address Organization Details Last Updated DateTime 08/31/2024 155.58 cm 30.7 kg/m2 58549.71 g Emy Pitts [facility] 08/31/2024 11:02:16 Social History Question Answer Notes LastModified by OrganizRhapso ion Details LastModified Time Tobacco Smoking Status Never Smoker Emy serrano [facility] 08/31/2024 11:05:25 What Is Your Relationship Status? [...] SNOMED-CT Code Diagnosis ICD10 Code Diagnosis Note [id number] RAMÍREZ Michaud [address] [place] [address] 12/09/2023 13:52:34 12/31/2023 10:26:53 Knee joint prosthesis present 9722599631 02 Z96.651 History of total knee arthroplasty 2599007828 105 Z96.579 [id number] RAMÍREZ Ryan [facility] [address] [place] [address] 07/23/2024 13:48:59 08/12/2024 12:55:47 History of right total knee replacement 9985071616 539893 Z96.651 Pes anseri nus bursitis of right knee 7387617331 030309 M70.51 [id number] MD SYLWIA Braga [facility] [address] [place] [address] 08/31/2024 10:51:40 09/06/2024 10:24:56 History of left total knee replacement 5516375121 496651 Z96.652 Health Concerns Section Related Observation LastModified by Organization Detai ls LastModified Time None Recorded Concern Status LastModified by Organization Details LastModified Time None Recorded Advance Directives Directive None Recorded Payers Insurance Date Sequence Insurance Name Policy Number Policy Grant Covered Member ID Grant Member ID Guarantor Name 09/06/2024 1 [facility] - DOS ON OR AFTER 2022 - ONE CARE (MEDICARE REPLACEMENT/ADV ANTAGE - HMO) Rosie bhakta [id number] Rosie Parisi Notes Date Note Type Note Provider Name and Address Organization Details Recorded Time 12/09/2023 text/html I am seeing the patient today under the supervision of Dr. Mckinnon who was available but who did not see the patient. HPI: Rosie presents to the office for an evaluation of her left knee. She is status post left total knee arthroplasty performed in [place] in 2009. She subsequently developed an infection [...] and lucid. Normal insight, affect and grooming. 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 No spasticity [...] compartments soft and compressible. Labs performed at [facility] recently reveal a sed rate of 6, CRP 0.3, WBC 8.6. X-rays ordered, obtained and reviewed at [facility] today include 3 views of the [...] All questions answered. Oxana Rodriguez PA-C [address] [facility] [address], [place], [address], [facility] [place] [facility] 12/09/2023 17:08:14 07/23/2024 text/html I am seeing [...] back as needed. Hernan Banuelos PA-C [address], [place], [address], [facility] 07/23/2024 15:52:38 08/31/2024 text/html History of prese nt illness:Rosie presents today for evaluation for her left knee. To review in brief, I proceed replaced her right knee, her left knee was replaced years ago in [place] and had to be revised one year [...] patient s chart. Renato Horner MD [address], [place], [address], [facility] 08/31/2024 12:24:51 OBGyn Episode No OBEpisode recorded.
--- OUTSIDE RECORDS SUMMARY | 2024-11-17 14:04 | XMS_ITS | Encounter Summary ---
Author Organization [employer] [facility] Address [address] [address] Care Team Providers Care Operation Manager Name Role Phone Ginette Fortune MD Primary Care Provide r Reason for Referral * Consultation (Routine) - Closed Specialty Diagnoses / Procedures Referred By Eula winston Referred To Contact Orthopaedic Surgery Diagnoses Acute pain of left knee Drea Monroy MD [address] [place] [address] Phone: tel: fax: [facility] [address] [place] [address] [place] [address] Phone: tel: fax: Referral ID Status Reason Start Date Expiration Date V isits Requested Visits Authorized [id number] Closed Specialty Services Required 11/14/2023 11/13/2024 1 1 Encounter Details Date Type Department Care Team (Late st Contact Info) Description 11/14/2023 Orders Only [facility] [address] [place], [place] [phone] Drea Monroy MD [address], [place] [phone] Acute pain of left knee (Primary Dx) [...] Description 12/16/2024 9:15 AM EDT Office Visit [facility] [address] [place] [address] Ginette Fortune MD [address] [place] [address] Scheduled Referrals Name Type Priority Associated Diagnoses [...] documented as of this encounter Care Teams Operation Manager Relationship Specialty Start Date End Date Ginette Fortune MD [address] [place] [address] PCP - General Internal Medicine 10/27/23 documented as of this encounter
--- OUTSIDE RECORDS SUMMARY | 2024-11-17 14:04 | XMS_ITS | Clinical Summary ---
Author Organization [employer] [facility] Address [address] [place] [address] Care Team Providers Care Carriage Dogger Name Role Phone Kaley Jacobson MD Primary Care Provider Unavailab le Surgical History Surgery Date Site/Laterality Comments TOTAL KNEE ARTHROPLASTY 2009 PROCEDURE: SD ARTHRP KNE CONDYLE&PLATU MEDIAL&LAT COMPARTMENTS CHOLECYSTECTOMY PROCEDURE: SD LAPAROSCOPY SURG CHOLECYSTECTOMY SECTION PROCEDURE: HISTORICAL OTHER [...] Continued pain 03/2017, seeking 2nd opinion at [facility] History of CVA (cerebrovascu lar accident) 06/06/2017 [...] (2023-2 5 season) 2024 Influenza Vaccine (#1) 2025 HIB Vaccines Aged Out No longer [...] age to complete this topic Care Teams Carriage Dogger Relationship Specialty Start Date End Date Kaley Jacobson MD PCP - General Internal Medicine 03/11/17
== END 2024-11-17 13:56 | disposition home or self-care (01) ==
LOC: HO.ENCR 13:15
PROVIDERS: PCP Internal Medicine; Visit Provider Internal Medicine
DX: E11.65 Type 2 diabetes mellitus with hyperglycemia (principal); E11.649 Type 2 diabetes mellitus with hypoglycemia without coma

== ENCOUNTER → 2024-11-17 13:14 | Outpatient (BNVA) | payer OTHER, SELFPAY | PROVIDERS: PCP Internal Medicine; Visit Provider Internal Medicine | DX: E11.65 Type 2 diabetes mellitus with hyperglycemia (principal); Z79.85 Long-term (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 injectable non-insulin antidiabetic drugs | CPT/HCPCS: 82947; 83036; 99212 ==

== ENCOUNTER 2024-11-22 10:07 | Outpatient (AMB) | payer OTHER, SELFPAY ==
--- NOTE | 2024-11-22 10:26 | MHC.OFFVIS ---
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 Patient reports ongoing pain for a couple months. She informed me that she had carpel tunnel release surgery about 3 years ago back in [place]. Patient notices her pain is worse when she is lifting something heavy and opening her arms. Patient has tried lidocane patches and Tylenol mild relief. 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 Iverson is a 64-year-old right-hand dominant female who presents to the office today for evaluation of right elbow pain. She reports that around 3 months ago she fell and landed onto the right elbow. She was seen by her primary care provider who referred her to Orthopedics for further evaluation and treatment. She had an x-ray that was performed on 09/22/2024 and was negative for any acute fracture or dislocation. She points to the area over the lateral epicondyle for the origination of her pain. [facility] Medical History Anxiety Depression GERD (gastroesophageal reflux disease) COVID-19 vaccine series completed Tachycardia Toxic multinodul goiter Chronic renal insufficiency Nephrolithiasis Cyst, kidney, acquired Diabetic neuropathy BMI 34.0-34.9,adult BMI 35.0-35.9,adult BMI 36.0-36.9,adult Pre-op evaluation B12 deficiency Obesity (BMI 30-39.9) Non-toxic multinodular goiter Dyslipidemia Diabetic 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 with type 2 diabetes mellitus FDC (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 insulin Distal radius fracture, right HTN (hypertension) Chronic kidney disease Diabetes type 2, uncontrolled Surgical History History of abdominoplasty History of surgery S/P fine needle aspiration S/P laparoscopic sleeve gastrectomy History of esophagogastroduodenoscopy (EGD) H/O colonoscopy Hx of biopsy History of partial hysterectomy History of total right knee replacement History of total left knee replacement (~2010) Hx of cholecystectomy History of section History of carpal tunnel release (~2018) Family History Father Hypertension Diabetes History of kidney cancer Mother Diabetes Hypertension Heart disease Brother Hypertension Diabetes Brother No problems noted. Son Hypertension Prediabetes Heart disease Daughter Prediabetes Social History (Updated 11/22/24 @ 10:31 by Sumi Crawford) Household Members: Spouse Housing: Apartment Are you a primary patient care director to a significant other at home: No Do you presently have visiting nurse or other home services: No Alcohol intake: never Patient Tobacco Use Status: Never used Tobacco service: No Current occupational status: retired Current occupation: right hand dominant Review of Systems Const All systems reviewed & are unremarkable except as noted in HPI and below Physical Exam Vital Signs: BMI result Body Mass Index 31.6 Const General: cooperative, healthy appearing and no acute distress Resp Effort & Inspection: normal respiratory effort and able to speak in complete sentences Extrem Other: Right elbow lacking 30 degrees of full extension. Full flexion is obtainable. Pain over the lateral epicondyle with pronation and supination but able to reach end range. Tenderness to palpation over the lateral epicondyle. Pain with resisted wrist extension over the lateral epicondyle. NVI. Assessment & Plan Assessment & Plan (1) Lateral epicondylitis of right elbow: Code(s): M77.11 - Lateral epicondylitis, right elbow Category: Medical Plan Ms. Iverson is a 64-year-old right-hand dominant female who presents to the office today for evaluation of right elbow pain. She reports that around 3 months ago she fell and landed onto the right elbow. She was seen by her primary care provider who referred her to Orthopedics for further evaluation and treatment. She had an x-ray that was performed on 09/22/2024 and was negative for any acute fracture or dislocation. She points to the area over the lateral epicondyle for the origination of her pain. While in the office today, we discussed the role of lateral epicondylitis bracing. I wrote the type of brace that I would recommend for this patient and she will obtain this outside of our office. I also recommended physical therapy in which she is amenable to attend. I have recommended anti-inflammatories as needed, rest and ice. Physical therapy order was placed while in the office today. She will follow up in 6 weeks, sooner if needed. X-rays of the right elbow which were obtained on 09/22/2024 were negative for any acute fracture or dislocation. Coding Level of Care Code New Pt Level 3 (38274) Diagnoses Lateral epicondylitis of right elbow M77.11
[2024-11-22 10:31] VITALS: BMI 31.6
--- OUTSIDE RECORDS SUMMARY | 2024-11-22 10:58 | XMS_ITS | Encounter Summary ---
Author Organization [facility] Address [address] [place] [address] Phone Care Team Providers Care Customer Services Manager Name Role Phone Ashkan Jacobson MD Primary Care Provider [phone] Encounter Details Date Type Department Care Team (Late st Contact Info) Description 04/04/2022 Documentation Only [facility], [address] [place] [address] Macy Giraldo PA Social History [...] on filedocumented in this encounter Care Teams Customer Services Manager Relationship Specialty Start Date End Date Ashkan Jacobson MD [address] [place] [address] [address] [place], [place] PCP - General 03/09/19 documented as of this encounter
--- OUTSIDE RECORDS SUMMARY | 2024-11-22 10:59 | XMS_ITS | Clinical Summary ---
Author Organization [facility] [employer] Address [address] [place] [address] Care Team Providers Care Patient Safety Manager Name Role Phone Kaley Jacobson MD Primary Care Provider Unavailab le Surgical History Surgery Date Site/Laterality Comments TOTAL KNEE ARTHROPLASTY 2009 PROCEDURE: FL ARTHRP KNE CONDYLE&PLATU MEDIAL&LAT COMPARTMENTS CHOLECYSTECTOMY PROCEDURE: FL LAPAROSCOPY SURG CHOLECYSTECTOMY SECTION PROCEDURE: HISTORICAL OTHER [...] Continued pain 03/2017, seeking 2nd opinion at [facility] History of CVA (cerebrovascu lar accident) [...] Panel) 04/07/2022 Colorectal Cancer Screening: Colonoscopy 04/07/2022 HIV Screening 04/07/2022 Hepatitis C Screening 04/07/2022 Social Influencers of Health Screening 04/07/2022 Diabetes: Annual Urine Albumin-Creatinine Ratio (uACR) 04/19/2022 Diabetes: Blood Sugar Contro l Test (HGBA1C) 04/19/2022 Hypertension/CHF/CAD Annual BMP Blood Test 04/19/2022 COVID-19 Vaccine (1 - 2023-2 5 season) 2024 Depression Screening 05/05/2024 Influenza Vaccine (#1) 2025 HIB Vaccines Aged [...] age to complete this topic Care Teams Patient Safety Manager Relationship Specialty Start Date End Date Kaley Jacobson MD PCP - General Internal Medicine 03/11/17
--- OUTSIDE RECORDS SUMMARY | 2024-11-22 10:59 | XMS_ITS | Data Portability ---
Author Organization [place] [facility] [place] [facility], [facility] Address [address] [place] [address] Assessment Encounter Date Assessment Date Assessment LastModified [...] may follow up with me as needed [email or web address] Not available 08/31/2024 12:24:31 Plan of Treatment Reminders Order Date Submit Date Provider Last Modified By Organization Details Last Modified Time Details Appointments None recorded. Lab None recorded. Referral None recorded. Procedures None recorded. Surgeries None recorded. Imaging XR, knee, 3 view - 2nd opinion post LTKR. 3v room 202 2024 025 [email or web address] [facility], [address], [address], [place], [address], 5 10:24:56 XR, knee, 3 view - 209, 3 views of right knee. 2024 025 [email or web address] [facility], [address], [address], [place], [address], 5 08:05:15 XR, knee, 3 view - rm 308 3 LTKR done in 2009 pain , no trauma 2023 024 [email or web address] [facility], [address], [address], [place], [address], 4 10:26:53 Medication Orders lidocaine 4 % topical patch [email or web address] [facility], [address] [place] [address], [id number], 5 15:55:51 Voltaren Arthritis Pain 1 % topical gel [address] [facility], [address] [place] [address], [id number], 5 08:05:15 meloxicam 15 mg tablet [address] [facility], [address] [place] [address], [id number], 5 08:05:15 meloxicam 15 mg tablet 2023 024 [facility], [address] [place] [address], [id number], 4 10:00:54 Patient TargetsNo targets recorded. Patient InstructionsNo instructions recorded. Reason for Referral None Reported. Results Created Date Observation Date Name Description Value Unit Range Abnormal Flag Note LastModifiedBy Organization Detail LastModifiedTime 07/02/1929 0607/02/2024 CBC WITH DIFFE RENTI AL/PL ATELE T WBC 8.4 K/mm3 4.0-11 .0 normal Not Available [address], [address], 07/02/2024 15:57:53 07/02/19 25 07/02/2024 CBC WITH DIFFE RENTI AL/PL ATELE T RBC 4.84 M/mm3 4.20-5 .40 normal Not Available [address], [address], 07/02/2024 15:57:53 07/02/19 25 07/02/2024 CBC WITH DIFFE RENTI AL/PL ATELE T hemoglobin 13.5 gm/dL 11.7-1 5.5 normal Not Available [address], [address], 07/02/2024 15:57:53 07/02/19 25 07/02/2024 CBC WITH DIFFE RENTI AL/PL ATELE T hematocrit 42.2 % 35.7-4 5.8 normal Not Available [address], [address], 07/02/2024 15:57:53 07/02/19 25 07/02/2024 CBC WITH DIFFE RENTI AL/PL ATELE T MCV 87.2 fL 80.0-1 00.0 normal Not Available [address], [address], 07/02/2024 15:57:53 07/02/19 25 07/02/2024 CBC WITH DIFFE RENTI AL/PL ATELE T MCH 27.9 pg 27.0-3 4.0 normal Not Available [address], [address], 07/02/2024 15:57:53 07/02/19 25 07/02/2024 CBC WITH DIFFE RENTI AL/PL ATELE T MCHC 32.0 g/dL 33.0-3 7.0 below low normal Not Available [address], [address], 07/02/2024 15:57:53 07/02/19 25 07/02/2024 CBC WITH DIFFE RENTI AL/PL ATELE T RDW 43.8 fL <47.0 Not Available [address], [address], 07/02/2024 15:57:53 07/02/19 25 07/02/2024 CBC WITH DIFFE RENTI AL/PL ATELE T platelets 245 K/mm3 150-46 0 normal Not Available [address], [address], 07/02/2024 15:57:53 07/02/19 25 07/02/2024 CBC WITH DIFFE RENTI AL/PL ATELE T neutrophils 56.9 % 44-76 normal Not Available [address], [address], 07/02/2024 15:57:53 07/02/19 25 07/02/2024 CBC WITH DIFFE RENTI AL/PL ATELE T lymphs 28.9 % 15-43 normal Not Available [address], [address], 07/02/2024 15:57:53 07/02/19 25 07/02/2024 CBC WITH DIFFE RENTI AL/PL ATELE T monocytes 10.5 % 4.5-10 .5 normal Not Available [address], [address], 07/02/2024 15:57:53 07/02/19 25 07/02/2024 CBC WITH DIFFE RENTI AL/PL ATELE T eos 2.8 % 0-6 normal Not Available [address], [address], 07/02/2024 15:57:53 07/02/19 25 07/02/2024 CBC WITH DIFFE RENTI AL/PL ATELE T basos 0.7 % 0-2 normal Not Available [address], [address], 07/02/2024 15:57:53 07/02/19 25 07/02/2024 CBC WITH DIFFE RENTI AL/PL ATELE T neutrophils (absolute) 4.8 K/mm3 1.3-7. 0 normal Not Available [address], [address], 07/02/2024 15:57:53 07/02/19 25 07/02/2024 CBC WITH DIFFE RENTI AL/PL ATELE T lymphs (absolute) 2.4 K/mm3 0.8-3. 1 normal Not Available [address], [address], 07/02/2024 15:57:53 07/02/19 25 07/02/2024 CBC WITH DIFFE RENTI AL/PL ATELE T monocytes(ab solute) 0.9 K/mm3 0.4-0. 9 normal Not Available [address], [address], 07/02/2024 15:57:53 07/02/19 25 07/02/2024 CBC WITH DIFFE RENTI AL/PL ATELE T eos (absolute) 0.2 K/mm3 0.0-0. 4 normal Not Available [address], [address], 07/02/2024 15:57:53 07/02/19 25 07/02/2024 CBC WITH DIFFE RENTI AL/PL ATELE T baso (absolute) 0.1 K/mm3 0.0-0. 1 normal Not Available [address], [address], 07/02/2024 15:57:53 07/02/19 25 07/02/2024 CBC WITH DIFFE RENTI AL/PL ATELE T immature granulocytes 0.2 % Not Available [address], [address], 07/02/2024 15:57:53 07/02/19 25 07/02/2024 CBC WITH DIFFE RENTI AL/PL ATELE T immature grans (abs) 0.0 K/mm3 Not Available [address], [address], 07/02/2024 15:57:53 07/02/19 25 07/02/2024 CBC WITH DIFFE RENTI AL/PL ATELE T NRBC 0.0 #/100 _WBC' s Not Available [address], [address], 07/02/2024 15:57:53 07/02/19 25 07/02/2024 CBC WITH DIFFE RENTI AL/PL ATELE T hematology comments: Commen t AUTOM ATED DIFFE RENTI AL MPV 12.4 FL 9.4-1 2.4 N ABS. NRBC 0.0 K/MM3 N Not Available [address], [address], 07/02/2024 15:57:53 07/02/19 25 07/02/2024 SEDIM ENTAT ION RATE- WESTE RGREN sedimentatio n rate-westerg eulalia 4 mm/HR 0-20 normal Not Available [address], [address], 07/02/2024 15:57:55 07/02/19 25 07/02/2024 C-GIOVANNI CTIVE PROTE IN, QUANT C-reactive protein, quant <0.3 mg/dL 0-0.5 Not Available [address], [address], 07/02/2024 15:57:56 12/09/19 24 12/09/2023 XR, knee, 3 view [email or web address]:/ [email or web address] ?Encry pted=s hAaTro YD8dLq bEUv6g %2BXZw aYqtaq 0bqfl% 2Fg9IQ a4ajBk vP9nXo QUaueC m3YtLR FvZlg [facility] 5j8799 AC0Kob 3qHVar eUC8mr 84%3D INTERFACE [facility] [address], [place], [address], 12/09/2023 14:08:56 12/09/19 24 12/09/2023 XR, knee, 3 view [email or web address] ?Encry pted=s hAaTro YD8dLq bEUv6g %2BXZw aYqtaq 0bqfl% 2Fg9IQ a4ajBk vP9nXo QUaueC m3YtLR FvZlg JJ8[place] HZtai3 3w4898 AC0Kob 3qHVar eUC8mr 84%3D INTERFACE [facility] [address], [place], [address], 12/09/2023 14:08:57 07/24/19 25 07/23/2024 XR, knee, 3 view [email or web address] ?Encry pted=s hAaTro YD8dLq bEUv6g %2BXZw aYqtaq 0bqfl% 2Fg9IQ a4ajBk vP9nXo QUaueC m3YtLR FvZl [address] 5p[address]85 AC0KqY niHU6q vKiQtr MwF INTERFACE [facility] [address], [place], [address], 07/23/2024 15:34:18 07/24/19 25 07/23/2024 XR, knee, 3 view [email or web address] ?Encry pted=s hAaTro YD8dLq bEUv6g %2BXZw aYqtaq 0bqfl% 2Fg9IQ a4ajBk vP9nXo QUaueC m3YtLR FvZlgJ JJ8mAn HZtai3 5r4290 AC0KqY niHU6q vKiQtr MwF INTERFACE [facility] [address] [address], [place], [address], 07/23/2024 15:34:20 09/01/19 25 08/31/2024 XR, knee, 3 view [email or web address] ?Encry pted=s hAaTro YD8dLq bEUv6g %2BXZw aYqtaq 0bqfl% 2Fg9IQ a4ajBk vP9nXo QUaueC m3YtLR FvZlgJ JJ8mAn HZtai3 3c0998 AC0Kla n6EUKa uKiQtr MwF INTERFACE [facility] [address] [address], [place], [address], 08/31/2024 11:17:33 09/01/19 25 08/31/2024 XR, knee, 3 view [email or web address]:/ [email or web address] ?Encry pted=s hAaTro YD8dLq bEUv6g %2BXZw aYqtaq 0bqfl% 2Fg9IQ a4ajBk vP9nXo QUaueC m3YtLR FvZlgJ JJ8mAn HZtai3 1c6404 AC0Kla n6EUKa uKiQtr MwF INTERFACE [facility] [address], [address], 08/31/2024 11:17:35 Result Notes Documentation Provider Name and Address Organization Details Recorded Time Xr, Knee, 3 View : [email or web address] Encrypted=lwAwIznUM9xErxG Uv6g%8WZTenKebqs3hfrb%2Fg 2KZm2agOuhZ6nHjQQvpfIo8Af DMJeByoWYE1dPkPZrzy95w186 9WF8Fjg8eWVueeIK2nn57%3D Not Available [facility] 12/09/2023 14:0 8:56 Xr, Knee, 3 View : [email or web address] Encrypted=ytKzLvgDZ2lEesN Uv6g%5GHLypKxgjm9slrf%2Fg 5ONf9xdEkjD2yTaSNekdBy3Dt ZLAbJmrJTD8eNyKRmjv99m233 4HX0Usy9gFHfjrTD1mn97%3D Not Available [facility] 12/09/2023 14:0 8:58 Xr, Knee, 3 View : [email or web address] Encrypted=tjCgTasLG1dLjaM Uv6g%2CPSsfPjobw3wwbh%2Fg 3RQl0iwXbdR6kWnOUnwpOs9Tk UODrTecKSM2lKyJHeff79e194 4EN3KvYlbPH6dtVgJfgZlD Not Available [facility] 07/23/2024 15:34: 19 Xr, Knee, 3 View : [email or web address] Encrypted=arNhJlqCI7zRuhP Uv6g%0DKJrzJenoc0xjlk%2Fg 0BZe1frGcuW2kRoJZuujOv2Qr PEWmNeqOXV3tOxPOreu04a766 2QO8JoGwgNN1reKhIfwSvT Not Available [facility] 07/23/2024 15:34: 21 Xr, Knee, 3 View : [email or web address] Encrypted=whCtUorAA8aFxeD Uv6g%2VDThfXffjc5gwza%2Fg 0QIv9pkQzzA2gZpKEaysBo9St TZAtOisRJV7dVlXYuuk08u243 2MW0Gsty6HHFhlReNuyQcX Not Available [facility] 08/31/2024 11:17: 34 Xr, Knee, 3 View : [email or web address] Encrypted=nzDvIanMZ4oOsfU Uv6g%5DTHwoUvvue8fmet%2Fg 3VGr1rmQmaB8zHjCXfznFv8Mf GGCpEfjGIV7tHxBCqas81k573 8QP9Ejvx0SREhyTbNlyDsU Not Available [facility] 08/31/2024 11:17: 35 Problems Name Problem SNOMED Code Status Onset Date Resolution Date Notes Provider Name and Address Organization Details Recorded Time No complaints 877243373 Active Status : 'I'; Not Available [facility] 4 09:20:27 Diabetes mellitus 20202310 Active 2018 Status : 'A'; Not Available [facility] 4 11:27:59 Osteoarthr itis 441588155 Active 2018 Status : 'A'; Not Available [facility] 4 11:27:59 Osteopenia 697856074 Active 2018 Status : 'A'; Not Available [facility] 4 11:27:59 Non-toxic multinodul ar goiter 97764800 Active 2018 Status : 'A'; Not Available [facility] 4 11:27:59 Kidney disease 94912641 Active 2018 Status : 'A'; Not Available [facility] 4 11:27:59 Hyperlipid emia 72756187 Active 2018 Status : 'A'; Not Available [facility] 4 11:27:59 Depressive disorder 02490154 Active 2018 Status : 'A'; Not Available [facility] 4 11:27:59 Neuropathy due to diabetes mellitus 524910790 Active 2018 Status : 'A'; Not Available [facility] 4 11:27:59 History of left total knee replacemen t 5535114083816 105 Active 2024 Renato Horner MD [address] [place] [address] [address], [place], [address] , [facility] [place] [facility] 5 12:24:30 Problem Notes None recorded. Medical Equipment None Reported. Allergies Allergen ID Allergen Name Allergen Category Reaction Reaction Severity Criticality Documentation Date Start Date Code Code System Note Provider Name and Address Organization Details Recorded Time 78524 latex environme nt,medica tion Not available Not available Not available 07/07/20232016 88982 91 RxNorm Aller gyRea ction : 'Skin React ion'; Not Available [facility] 12:45:00 Medications Name Sig Start [...] Available Not Available Not Available Artificial Tears (hu056-sach omell-glyce rin) 1 %-0.2 %-0.2 % eye [...] Available No t Available FreeStyle Jame 2 [place] USE DIRECTED active Not Available Not Available [...] Not Available Not Available FreeStyle Jame 3 [place] USE DIRECTED active Not Available Not Available No t Available FreeStyle Jame 3 Plus Sensor device APPLY 1 SENSOR AND CHANGE EVERY 15 DAYS USE DIRECTED TO TEST BLOOD SUGAR active Not Available Not Available No t Available Vitals Date Recorded Body weight Body mass index (BMI) Body height Provider Name and Address Organization Details Last Updated DateTime 07/23/2024 62968.63 g 34 kg/m2 154.94 cm Jordana Elise [facility] 07/23/2024 15:24:04 Date Recorded Body height Body mass index (BMI) Body weight Provider Name and Address Organization Details Last Updated DateTime 08/31/2024 155.58 cm 30.7 kg/m2 80067.71 g Emy Pitts [facility] 08/31/2024 11:02:16 Social History Question Answer Notes LastModified by [employer] ion Details LastModified Time Tobacco Smoking Status Never Smoker Emy serrano [facility] 08/31/2024 11:05:25 What Is Your [...] SNOMED-CT Code Diagnosis ICD10 Code Diagnosis Note [id number] RAMÍREZ Michaud [address] [place] [address] 12/09/2023 13:52:34 12/31/2023 10:26:53 Knee joint prosthesis present 1938758718 02 Z96.651 History of total knee arthroplasty 6376661016 105 Z96.450 [id number] RAMÍREZ Ryan [facility] [address] [place] [address] 07/23/2024 13:48:59 08/12/2024 12:55:47 History of right total knee replacement 8413000485 566153 Z96.651 Pes anseri nus bursitis of right knee 3371090895 960154 M70.51 [id number] MD SYLWIA Braga [facility] [address] [place] [address] 08/31/2024 10:51:40 09/06/2024 10:24:56 History of left total knee replacement 0992760821 563171 Z96.652 Health Concerns Section Related Observation LastModified by Organization Detai ls LastModified Time None Recorded Concern Status LastModified by Organization Details LastModified Time None Recorded Advance Directives Directive None Recorded Payers Insurance Date Sequence Insurance Name Policy Number Policy Grant Covered Member ID Grant Member ID Guarantor Name 09/06/2024 1 [facility] - DOS ON OR AFTER 2022 - ONE CARE (MEDICARE REPLACEMENT/ADV ANTAGE - HMO) Rosie bhakta [id number] Rosie Parisi Notes Date Note Type Note Provider Name and Address Organization Details Recorded Time 12/09/2023 text/html I am seeing the patient today under the supervision of Dr. Mckinnon who was available but who did not see the patient. HPI: Rosie presents to the office for an evaluation of her left knee. She is status post left total knee arthroplasty performed in [place] in 2009. She subsequently developed an infection [...] and lucid. Normal insight, affect and grooming. RN CHEMICAL DEPENDENCY: Gross motor coordination is intact. No spasticity [...] compartments soft and compressible. Labs performed at [place] recently reveal a sed rate of 6, CRP 0.3, WBC 8.6. X-rays ordered, obtained and reviewed at [facility] today include 3 views of the [...] All questions answered. Oxana Rodriguez PA-C [address] [facility] [address], [place], [address], [facility] [place] [facility] 12/09/2023 17:08:14 07/23/2024 text/html I [...] back as needed. Hernan Banuelos PA-C [address], [place], [address], [facility] 07/23/2024 15:52:38 08/31/2024 text/html History of prese nt illness:Rosie presents today for evaluation for her left knee. To review in brief, I proceed replaced her right knee, her left knee was replaced years ago in [place] and had to be revised one year [...] patient s chart. Renato Horner MD [address], [place], [address], [facility] 08/31/2024 12:24:51 OBGyn Episode No OBEpisode recorded.
--- OUTSIDE RECORDS SUMMARY | 2024-11-22 10:59 | XMS_ITS | Encounter Summary ---
Author Organization [employer] [facility] Address [address] [address] Care Team Providers Care Hide Cooking Operator Name Role Phone Ginette Fortune MD Primary Care Provide r Reason for Referral * Consultation (Routine) - Closed Specialty Diagnoses / Procedures Referred By Eula winston Referred To Contact Orthopaedic Surgery Diagnoses Acute pain of left knee Drea Monroy MD [address] [place] [address] Phone: tel: fax: [facility] [address] [place] [address] [place] [address] Phone: tel: fax: Referral ID Status Reason Start Date Expiration Date V isits Requested Visits Authorized [id number] Closed Specialty Services Required 11/14/2023 11/13/2024 1 1 Encounter Details Date Type Department Care Team (Late st Contact Info) Description 11/14/2023 Orders Only [facility] MED & PEDS [address] [place], [place] [phone] Drea Monroy MD [address] [place], [place] [phone] Acute pain of left knee (Primary Dx) [...] Description 12/16/2024 9:15 AM EDT Office Visit [facility] MEDICINE [address] [place] [address] Ginette Fortune MD [address] [place] [address] Scheduled Referrals Name Type Priority Associated Diagnoses [...] documented as of this encounter Care Teams Hide Cooking Operator Relationship Specialty Start Date End Date Ginette Fortune MD [address] [place] [address] PCP - General Internal Medicine 10/27/23 documented as of this encounter
== END 2024-11-22 11:05 | disposition home or self-care (01) ==
LOC: HO.HOS 10:08
PROVIDERS: PCP Internal Medicine; Visit Provider Physician Assistant
DX: M77.11 Lateral epicondylitis, right elbow (principal)
CPT/HCPCS: 99203

== ENCOUNTER → 2024-11-22 10:07 | Outpatient (BNVA) | payer OTHER, SELFPAY | PROVIDERS: PCP Internal Medicine; Visit Provider Physician Assistant | DX: M25.521 Pain in right elbow (principal); M77.11 Lateral epicondylitis, right elbow | CPT/HCPCS: 99202 ==

== ENCOUNTER 2024-11-30 10:07 | Outpatient (AMB) | payer OTHER, SELFPAY ==
--- NOTE | 2024-11-30 10:12 | MHC.OFFVIS ---
Intake Visit Reasons: 3m/labs/nuclear scan(set) Intake Note: Patient is present for 3M/LABS/NUCLEAR SCAN Urology Medication:NONE Antibiotic Allergy:MERFORMIN Blood Thinner:APIXABAN Director Of Dietary Required: No Allergies latex (LATEX) Allergy (Mild, Verified 11/30/24 17:02) RASH metformin Adverse Reaction (Verified 11/30/24 17:02) Unknown Medication List - Last Reconciled 11/30/24 by BECKI David-ISAC amlodipine 10 mg PO DAILY apixaban 5 mg PO BID atorvastatin 40 mg PO BEDTIME blood-glucose meter (Branch Metricsuch Ultra2 Meter) As directed docusate sodium 100 mg PO BID flash glucose sensor (FreeStyle Jame 2 Sensor kit) USE DIRECTED TO TEST BLOOD SUGAR. CHANGE EVERY 10 DAYS fluoxetine 40 mg PO DAILY fluticasone propionate 50 mcg/actuation 1 spray intranasal DAILY PRN FreeStyle Jame 2 [place] (flash glucose scanning reader) As directed NS FreeStyle Jame 3 Plus Sensor (blood-glucose sensor) every 15 days NS FreeStyle Jame 3 [place] (blood-glucose,option trader,cont) As directed NS hydrochlorothiazide 12.5 mg PO DAILY lisinopril 40 mg PO DAILY metoprolol succinate ER 50 mg PO DAILY Mounjaro (tirzepatide) 5 mg (0.5 mL) subcut QWEEK NS oxycodone 5 mg PO Q6H PRN pen needle, diabetic (Comfort EZ Pen [place]) As directed injects once a day sennosides (senna) 8.6 mg PO DAILY trazodone 50 - 150 mg PO BEDTIME PRN HPI Comments Details: Rosie is a pleasant urology 64-year-old [place]-speaking female patient of Dr. Freeman who was accompanied by her significant other at today's office visit. She has a past medical history of anxiety, depression, GERD, non toxic multinodular goiter, chronic renal insufficiency, nephrolithiasis, renal cyst, diabetic neuropathy, B12 deficiency, obesity, dyslipidemia, and type 2 diabetes. She presents to the office today for follow-up. Recent renal nuclear renal results were reviewed with the patient today. 09/26 there are symmetrical blood flow to both kidneys. There is split cortical function 61.7% on the left and 38.3% on the right. Excretion is seen bilaterally. There is dilatation of the right intrarenal collecting system and collimation in the ureter. After the administration of intravenous Lasix, there is washout from the bilateral renal collecting systems and ureters. The half-time of clearance after administration of IV Lasix is 24.9 minutes on the left and 19.7 minutes on the right. 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 She discusses her longstanding history of hydronephrosis even as a child. She reports when she lived in [place] she did undergo further workup however does not recall exactly what was done. She does report intermittent episodes of right-sided flank pain with increased activity however she states upon rest she feels flank pain dissipates. She currently denies any bothersome urinary issues. She denies urinary urgency, urinary frequency, incontinence, nocturia, hematuria, dysuria, foul smelling urine, changes to urinary stream, fever, and or chills. She is happy with her current voiding parameters. All questions were answered. We discussed potential causes of hydronephrosis will continue with surveillance monitoring at this time. She otherwise offers no other issues or concerns. 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 with type 2 diabetes 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 Distal radius fracture, right HTN (hypertension) Chronic kidney disease Diabetes type 2, uncontrolled Surgical History History of abdominoplasty History of surgery S/P fine needle aspiration S/P laparoscopic sleeve gastrectomy History of esophagogastroduodenoscopy (EGD) H/O colonoscopy Hx of biopsy History of partial hysterectomy History of total right knee replacement History of total left knee replacement (~2010) Hx of cholecystectomy History of section History of carpal tunnel release (~2017) Family History Father Hypertension Diabetes History of kidney cancer Mother Diabetes Hypertension Heart disease Brother Hypertension Diabetes Brother No problems noted. Son Hypertension Prediabetes Heart disease Daughter Prediabetes Social History (Updated 11/22/24 @ 10:31 by Sumi Crawford) Household Members: Spouse Housing: Apartment Are you a primary palliative care specialist to a significant other at home: No Do you presently have visiting nurse or other home services: No Alcohol intake: never Patient Tobacco Use Status: Never used Tobacco service: No Current occupational status: retired Current occupation: right hand dominant Review of Systems Const All systems reviewed & are unremarkable except as noted in HPI and below Physical Exam Const General: cooperative, healthy appearing, comfortable, no acute distress, well developed, alert and awake Nutritional Appearance: overweight Orientation/consciousness: patient oriented x3 Limitations: no limitations HEENT Head: Yes normal to inspection, Yes normocephalic and Yes atraumatic Ears: hearing grossly normal bilaterally Eyes General: appearance normal, both eyes and all related structures Neck Neck: Yes normal visual inspection and Yes trachea midline Chest Chest palpation & inspection: normal inspection of the chest Resp Effort & Inspection: normal respiratory effort and able to speak in complete sentences Cardio Rate: regular rate GI Inspection: Yes normal to inspection General: Yes no CVA tenderness Back/Spine/Pelvis Back: no CVA tenderness Skin General skin exam: no rashes or lesions noted Neuro General: patient oriented x3 Extrem General: Yes normal to inspection Psych Appearance: grossly normal and well kempt Mental Status: mental status grossly normal Speech and movement: Normal speech and movement present and Clear speech present Affect: normal affect Attitude: cooperative Thought process: Normal thought process present Thought content: Normal thought content present Insight: Fair insight present (Psych) Judgement: Fair judgement present (Psych) Results AMB Urinalysis, Automated UA Leukoctes 0 Lori/uL Last Edit by BRITTON Rodas on 11/30/24 10:32 UA Nitrite Negative Last Edit by BRITTON Rodas on 11/30/24 10:32 UA Urobilinogen 0.2 mg/dL Last Edit by Fred Friedman [facility] on 11/30/24 10:32 UA Protein 0 mg/dL Last Edit by Fred Friedman [facility] on 11/30/24 10:32 UA pH 6.0 Last Edit by Fred Friedman [facility] on 11/30/24 10:32 UA Blood 0 Miguel/uL Last Edit by Fred Friedman [facility] on 11/30/24 10:32 UA Specific [place] 1.025 Last Edit by Fred Friedman [facility] on 11/30/24 10:32 UA Ketone Negative Last Edit by Fred Friedman [facility] on 11/30/24 10:32 UA Bilirubin 0 mg/dL Last Edit by Fred Friedman [facility] on 11/30/24 10:32 UA Glucose 0 mg/dL Last Edit by Fred Friedman [facility] on 11/30/24 10:32 Results Reviewed Results Reviewed: Laboratory Last Values Urine pH (Auto) 6.0 11/30/24 10:31 Specific [place] (Auto) 1.025 11/30/24 10:31 Urine Protein (Auto) 0 mg/dL 11/30/24 10:31 Glucose (UA)(Auto) 0 mg/dL 11/30/24 10:31 Urine Ketones (Auto) Negative 11/30/24 10:31 Urine Blood (Auto) 0 Miguel/uL 11/30/24 10:31 Urine Nitrite (Auto) Negative 11/30/24 10:31 Urine Bilirubin (Auto) 0 mg/dL 11/30/24 10:31 Urine Urobilinogen (Auto) 0.2 mg/dL 11/30/24 10:31 Leukocyte Esterase (Auto) 0 Lori/uL 11/30/24 10:31 Date of Service: 09/28/24 Procedure(s): NM renal flow w pharm int FINDINGS: There is symmetric blood flow to both kidneys. The split cortical function is 61.7% on the left and 38.3% on the right. Excretion is seen bilaterally. There is dilatation of the right intrarenal collecting system and collimation in the ureter. After the administration of intravenous Lasix, there is washout from the bilateral renal collecting systems and ureters. The half-time of clearance after administration of IV Lasix is 24.9 minutes on the left and 19.7 minutes on the right. 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 Assessment & Plan Assessment & Plan (1) Hydronephrosis of right kidney: Code(s): N13.30 - Unspecified hydronephrosis Category: Medical (2) Hydronephrosis: Code(s): N13.30 - Unspecified hydronephrosis Category: Medical (3) Flank pain: Code(s): R10.9 - Unspecified abdominal pain Category: Medical Plan In office urinalysis results reviewed with the patient today; as noted above. Recent nuclear renal scan results were reviewed with the patient today; as noted above. Recent BUN and creatinine results reviewed with the patient and her significant other today; as noted above. Will continue with surveillance monitoring. She currently denies any bothersome urinary issues. She reports be happy with current voiding parameters. Will obtain renal ultrasound in 6 months. Will obtain BUN and creatinine in 6 months. Follow-up in 6 months with imaging and labs; or sooner with any issues, concerns, and or questions. Orders: Orders AMB Urinalysis Automated Today Z13.9 - Encounter for screening, unspecified US renal BI 6 Months N20.0 - Calculus of kidney Blood Urea Nitrogen 6 Months R39.15 - Urgency of urination Creatinine 6 Months R39.15 - Urgency of urination Patient Instructions: The patient had an opportunity to ask questions regarding the treatment plan. All questions were answered. Physical exam, labs, and imaging were discussed and reviewed in detail. As well as risks, benefits, and discussion of treatment choices. No major barriers to understanding were identified. The patient expressed understanding and agreement with the above treatment plan. The patient was made aware they should contact our office by phone for worsening of their current condition, the appearance of new symptoms, or with any questions or concerns. Compliance is encouraged with any medications and follow up testing that is ordered. It is a privilege to be allowed the opportunity to participate in? your urological care.? Again, if you have any questions or concerns If you have any questions or concerns please do not hesitate to contact me. The office is [phone]. This note is constructed using voice recognition software. While every effort has been made to ensure accuracy clipper machine errors may have been included. Yours sincerely, BECKI David-ISAC Coding Level of Care Code Est Pt Level 3 (01610) Complex EM visit Add On G2211 Diagnoses Hydronephrosis of right kidney N13.30 Hydronephrosis N13.30 Flank pain R10.9
--- OUTSIDE RECORDS SUMMARY | 2024-11-30 10:53 | XMS_ITS | Encounter Summary ---
Author Organization [facility] Address [address] [address] Care Team Providers Care News Commentator Name Role Phone Ginette Fortune MD Primary Care Provide r Reason for Referral * Consultation (Routine) - Closed Specialty Diagnoses / Procedures Referred By Eula winston Referred To Contact Orthopaedic Surgery Diagnoses Acute pain of left knee Drea Monroy MD [address] [place] [address] Phone: tel: fax: [facility] [address] [place] [address] [place] [address] Phone: tel: fax: Referral ID Status Reason Start Date Expiration Date V isits Requested Visits Authorized [id number] Closed Specialty Services Required 11/14/2023 11/13/2024 1 1 Encounter Details Date Type Department Care Team (Late st Contact Info) Description 11/14/2023 Orders Only [facility] [address] [place], [place] [phone] Drea Monroy MD [address] [place], [place] [phone] Acute pain of left knee (Primary Dx) [...] Description 12/16/2024 9:15 AM EDT Office Visit [facility]IC[facility] [address] [place] [address] Ginette Fortune MD [address] [place] [address] Scheduled Referrals Name Type Priority Associated Diagnoses [...] documented as of this encounter Care Teams News Commentator Relationship Specialty Start Date End Date Ginette Fortune MD [address] [place] [address] PCP - General Internal Medicine 10/27/23 documented as of this encounter
--- OUTSIDE RECORDS SUMMARY | 2024-11-30 10:53 | XMS_ITS | Data Portability ---
Author Organization [place] [facility] [place] [facility], [facility] Address [address] [place] [address] Assessment Encounter Date Assessment Date Assessment LastModified [...] may follow up with me as needed [email or web address] Not available 08/31/2024 12:24:31 Plan of Treatment Reminders Order Date Submit Date Provider Last Modified By Organization Details Last Modified Time Details Appointments None recorded. Lab None recorded. Referral None recorded. Procedures None recorded. Surgeries None recorded. Imaging XR, knee, 3 view - 2nd opinion post LTKR. 3v room 202 2024 025 [email or web address], [address], [place], [address], 5 10:24:56 XR, knee, 3 view - 209, 3 views of right knee. 2024 [email or web address] [facility], [address], [address], [place], [address], 5 08:05:15 XR, knee, 3 view - rm 308 3 LTKR done in 2009 pain , no trauma [email or web address] [facility], [address], [address], [place], [address], 4 10:26:53 Medication Orders lidocaine 4 % topical patch [email or web address] [facility], [address] [place] [address], [id number], 5 15:55:51 Voltaren Arthritis Pain 1 % topical gel [address] [facility] [address] [facility], [address] [place] [address], [id number], 5 08:05:15 meloxicam 15 mg tablet [address] [facility] [address] [facility], [address] [place] [address], [id number], 5 08:05:15 meloxicam 15 mg tablet 2023 024 [facility], [address] [place] [address], [id number], 4 10:00:54 Patient TargetsNo targets recorded. Patient InstructionsNo instructions recorded. Reason for Referral None Reported. Results Created Date Observation Date Name Description Value Unit Range Abnormal Flag Note LastModifiedBy Organization Detail LastModifiedTime 07/02/1929 0607/02/2024 CBC WITH DIFFE RENTI AL/PL ATELE T WBC 8.4 K/mm3 4.0-11 .0 normal Not Available [address], [address], 07/02/2024 15:57:53 07/02/19 25 07/02/2024 CBC WITH DIFFE RENTI AL/PL ATELE T RBC 4.84 M/mm3 4.20-5 .40 normal Not Available [address], [address], 07/02/2024 15:57:53 07/02/19 25 07/02/2024 CBC WITH DIFFE RENTI AL/PL ATELE T hemoglobin 13.5 gm/dL 11.7-1 5.5 normal Not Available [address], [address], 07/02/2024 15:57:53 07/02/19 25 07/02/2024 CBC WITH DIFFE RENTI AL/PL ATELE T hematocrit 42.2 % 35.7-4 5.8 normal Not Available [address], [address], 07/02/2024 15:57:53 07/02/19 25 07/02/2024 CBC WITH DIFFE RENTI AL/PL ATELE T MCV 87.2 fL 80.0-1 00.0 normal Not Available [address], [address], 07/02/2024 15:57:53 07/02/19 25 07/02/2024 CBC WITH DIFFE RENTI AL/PL ATELE T MCH 27.9 pg 27.0-3 4.0 normal Not Available [address], [address], 07/02/2024 15:57:53 07/02/19 25 07/02/2024 CBC WITH DIFFE RENTI AL/PL ATELE T MCHC 32.0 g/dL 33.0-3 7.0 below low normal Not Available [address], [address], 07/02/2024 15:57:53 07/02/19 25 07/02/2024 CBC WITH DIFFE RENTI AL/PL ATELE T RDW 43.8 fL <47.0 Not Available [address], [address], 07/02/2024 15:57:53 07/02/19 25 07/02/2024 CBC WITH DIFFE RENTI AL/PL ATELE T platelets 245 K/mm3 150-46 0 normal Not Available [address], [address], 07/02/2024 15:57:53 07/02/19 25 07/02/2024 CBC WITH DIFFE RENTI AL/PL ATELE T neutrophils 56.9 % 44-76 normal Not Available [address], [address], 07/02/2024 15:57:53 07/02/19 25 07/02/2024 CBC WITH DIFFE RENTI AL/PL ATELE T lymphs 28.9 % 15-43 normal Not Available [address], [address], 07/02/2024 15:57:53 07/02/19 25 07/02/2024 CBC WITH DIFFE RENTI AL/PL ATELE T monocytes 10.5 % 4.5-10 .5 normal Not Available [address], [address], 07/02/2024 15:57:53 07/02/19 25 07/02/2024 CBC WITH DIFFE RENTI AL/PL ATELE T eos 2.8 % 0-6 normal Not Available [address], [address], 07/02/2024 15:57:53 07/02/19 25 07/02/2024 CBC WITH DIFFE RENTI AL/PL ATELE T basos 0.7 % 0-2 normal Not Available [address], [address], 07/02/2024 15:57:53 07/02/19 25 07/02/2024 CBC WITH DIFFE RENTI AL/PL ATELE T neutrophils (absolute) 4.8 K/mm3 1.3-7. 0 normal Not Available [address], [address], 07/02/2024 15:57:53 07/02/19 25 07/02/2024 CBC WITH DIFFE RENTI AL/PL ATELE T lymphs (absolute) 2.4 K/mm3 0.8-3. 1 normal Not Available [address], [address], 07/02/2024 15:57:53 07/02/19 25 07/02/2024 CBC WITH DIFFE RENTI AL/PL ATELE T monocytes(ab solute) 0.9 K/mm3 0.4-0. 9 normal Not Available [address], [address], 07/02/2024 15:57:53 07/02/19 25 07/02/2024 CBC WITH DIFFE RENTI AL/PL ATELE T eos (absolute) 0.2 K/mm3 0.0-0. 4 normal Not Available [address], [address], 07/02/2024 15:57:53 07/02/19 25 07/02/2024 CBC WITH DIFFE RENTI AL/PL ATELE T baso (absolute) 0.1 K/mm3 0.0-0. 1 normal Not Available [address], [address], 07/02/2024 15:57:53 07/02/19 25 07/02/2024 CBC WITH DIFFE RENTI AL/PL ATELE T immature granulocytes 0.2 % Not Available [address], [address], 07/02/2024 15:57:53 07/02/19 25 07/02/2024 CBC WITH DIFFE RENTI AL/PL ATELE T immature grans (abs) 0.0 K/mm3 Not Available [address], [address], 07/02/2024 15:57:53 07/02/19 25 07/02/2024 CBC WITH DIFFE RENTI AL/PL ATELE T NRBC 0.0 #/100 _WBC' s Not Available [address], [address], 07/02/2024 15:57:53 07/02/19 25 07/02/2024 CBC WITH DIFFE RENTI AL/PL ATELE T hematology comments: Commen t AUTOM ATED DIFFE RENTI AL MPV 12.4 FL 9.4-1 2.4 N ABS. NRBC 0.0 K/MM3 N Not Available [address], [address], 07/02/2024 15:57:53 07/02/19 25 07/02/2024 SEDIM ENTAT ION RATE- WESTE RGREN sedimentatio n rate-westerg eulalia 4 mm/HR 0-20 normal Not Available [address], [address], 07/02/2024 15:57:55 07/02/19 25 07/02/2024 C-GIOVANNI CTIVE PROTE IN, QUANT C-reactive protein, quant <0.3 mg/dL 0-0.5 Not Available [address], [address], 07/02/2024 15:57:56 12/09/19 24 12/09/2023 XR, knee, 3 view [email or web address] ?Encry pted=s hAaTro YD8dLq bEUv6g %2BXZw aYqtaq 0bqfl% 2Fg9IQ a4ajBk vP9nXo QUaueC m3YtLR FvZlg [facility] 0q5937 AC0Kob 3qHVar eUC8mr 84%3D INTERFACE [facility] [address], [place], [address], 12/09/2023 14:08:56 12/09/19 24 12/09/2023 XR, knee, 3 view [email or web address] ?Encry pted=s hAaTro YD8dLq bEUv6g %2BXZw aYqtaq 0bqfl% 2Fg9IQ a4ajBk vP9nXo QUaueC m3YtLR FvZlg JJ8[place] HZtai3 4j8738 AC0Kob 3qHVar eUC8mr 84%3D INTERFACE [facility] [address], [place], [address], 12/09/2023 14:08:57 07/24/19 25 07/23/2024 XR, knee, 3 view [email or web address] ?Encry pted=s hAaTro YD8dLq bEUv6g %2BXZw aYqtaq 0bqfl% 2Fg9IQ a4ajBk vP9nXo QUaueC m3YtLR FvZl [address] [address] AC0KqY niHU6q vKiQtr MwF INTERFACE [facility] [address], [place], [address], 07/23/2024 15:34:18 07/24/19 25 07/23/2024 XR, knee, 3 view [email or web address] ?Encry pted=s hAaTro YD8dLq bEUv6g %2BXZw aYqtaq 0bqfl% 2Fg9IQ a4ajBk vP9nXo QUaueC m3YtLR FvZlgJ JJ8mAn HZtai3 5o9650 AC0KqY niHU6q vKiQtr MwF INTERFACE [facility] [address] [address], [place], [address], 07/23/2024 15:34:20 09/01/19 25 08/31/2024 XR, knee, 3 view [email or web address] ?Encry pted=s hAaTro YD8dLq bEUv6g %2BXZw aYqtaq 0bqfl% 2Fg9IQ a4ajBk vP9nXo QUaueC m3YtLR FvZlgJ JJ8mAn HZtai3 4u1229 AC0Kla n6EUKa uKiQtr MwF INTERFACE [facility] [place] [facility] [address] [address], [place], [address], 08/31/2024 11:17:33 09/01/19 25 08/31/2024 XR, knee, 3 view [email or web address] ?Encry pted=s hAaTro YD8dLq bEUv6g %2BXZw aYqtaq 0bqfl% 2Fg9IQ a4ajBk vP9nXo QUaueC m3YtLR FvZlgJ JJ8mAn HZtai3 1m1620 AC0Kla n6EUKa uKiQtr MwF INTERFACE [facility] [address], [address], 08/31/2024 11:17:35 Result Notes Documentation Provider Name and Address Organization Details Recorded Time Xr, Knee, 3 View : [email or web address] Encrypted=bzXrYdyVJ0zKzvV Uv6g%8UENtpWxisy7scjw%2Fg 9YCe3bqPbbR1uFmWUelmTh0Ca DKIgMkeHNL3sXfRWdlk70f580 9YJ3Yuq0eRDblpPL9hd28%3D Not Available [facility] 12/09/2023 14:0 8:56 Xr, Knee, 3 View : [email or web address] Encrypted=uvXjSjlGR3eKsbI Uv6g%2DCAjxBgnru6vyoi%2Fg 1TEj3nsVhoY1lDeKFwaoCp9Nb CJOnCfgLJW2lOlHCaod38l271 2RG9Yna4hMMwxyNJ0uu19%3D Not Available [facility] 12/09/2023 14:0 8:58 Xr, Knee, 3 View : [email or web address] Encrypted=irOtQcpWW9hHjvS Uv6g%6AFJujAlurw7fyad%2Fg 4QCe6jcNimC8lXyXEdldSx8Bu DZQrXdfZXO0uDdEWgku93i190 6QB9JcTmsVD9lzYpFhsUiD Not Available [facility] 07/23/2024 15:34: 19 Xr, Knee, 3 View : [email or web address] Encrypted=biDaPxpEZ1oGfuI Uv6g%0MCSccRaviv4gkig%2Fg 5QBe5xiMlwH8dNfJHhxyWv5Ig FNHgWmwHGK9aXyDFwmc82n185 1HH9TzCrnVP9ewMiXqiMkI Not Available [facility] 07/23/2024 15:34: 21 Xr, Knee, 3 View : [email or web address] Encrypted=fjFjKceGQ1tXpwB Uv6g%7HXZxiZetrz4umxe%2Fg 4BVd0lhQndX0sUgMAcewQs8Wt OSOqPoaFAP7kOrRVdck46h064 8KM2Orny9AQQkxFiPtiLjE Not Available [facility] 08/31/2024 11:17: 34 Xr, Knee, 3 View : [email or web address] Encrypted=pdUqKmpCM0uBtsQ Uv6g%4AWMibIxoaz1bqbv%2Fg 4PZm1ggRffR2aLvJSnwcRw5Ax OYFxWncZJP8aGvSVgbb13i130 1OQ5Qopb0ENGfuUfVkhQlC Not Available [facility] 08/31/2024 11:17: 35 Problems Name Problem SNOMED Code Status Onset Date Resolution Date Notes Provider Name and Address Organization Details Recorded Time No complaints 154146407 Active Status : 'I'; Not Available [facility] 4 09:20:27 Diabetes mellitus 97429607 Active 2018 Status : 'A'; Not Available [facility] 4 11:27:59 Osteoarthr itis 119403202 Active 2018 Status : 'A'; Not Available [facility] 4 11:27:59 Osteopenia 725856006 Active 2018 Status : 'A'; Not Available [facility] 4 11:27:59 Non-toxic multinodul ar goiter 46901221 Active 2018 Status : 'A'; Not Available [facility] 4 11:27:59 Kidney disease 77767515 Active 2018 Status : 'A'; Not Available [facility] 4 11:27:59 Hyperlipid emia 91039595 Active 2018 Status : 'A'; Not Available [facility] 4 11:27:59 Depressive disorder 61667744 Active 2018 Status : 'A'; Not Available [facility] 4 11:27:59 Neuropathy due to diabetes mellitus 132873979 Active 2018 Status : 'A'; Not Available [facility] 4 11:27:59 History of left total knee replacemen t 4221531103274 105 Active 2024 Renato Horner MD [address] [place] [address] [address], [place], [address] , [facility] [place] [facility] 5 12:24:30 Problem Notes None recorded. Medical Equipment None Reported. Allergies Allergen ID Allergen Name Allergen Category Reaction Reaction Severity Criticality Documentation Date Start Date Code Code System Note Provider Name and Address Organization Details Recorded Time 35750 latex environme nt,medica tion Not available Not available Not available 07/07/20232016 03314 91 RxNorm Aller gyRea ction : 'Skin React ion'; Not Available [facility] 12:45:00 Medications Name Sig Start Date [...] Available Not Available Not Available Artificial Tears (vp433-yygf omell-glyce rin) 1 %-0.2 %-0.2 % eye [...] Available No t Available FreeStyle Jame 2 [place] USE DIRECTED active Not Available Not Available [...] Not Available Not Available FreeStyle Jame 3 [place] USE DIRECTED active Not Available Not Available No t Available FreeStyle Jame 3 Plus Sensor device APPLY 1 SENSOR AND CHANGE EVERY 15 DAYS USE DIRECTED TO TEST BLOOD SUGAR active Not Available Not Available No t Available Vitals Date Recorded Body weight Body mass index (BMI) Body height Provider Name and Address Organization Details Last Updated DateTime 07/23/2024 87601.63 g 34 kg/m2 154.94 cm Jordana Elise [facility] 07/23/2024 15:24:04 Date Recorded Body height Body mass index (BMI) Body weight Provider Name and Address Organization Details Last Updated DateTime 08/31/2024 155.58 cm 30.7 kg/m2 86733.71 g Emy Pitts [facility] 08/31/2024 11:02:16 Social History Question Answer Notes LastModified by OrganizSame Day Serves ion Details LastModified Time Tobacco Smoking Status Never Smoker Emy serrano [facility] 08/31/2024 11:05:25 What Is Your [...] SNOMED-CT Code Diagnosis ICD10 Code Diagnosis Note [id number] Oxana Rodriguez PA-C [facility] [address] [place] [address] 12/09/2023 13:52:34 12/31/2023 10:26:53 Knee joint prosthesis present 3423071583 02 Z96.651 History of total knee arthroplasty 5732267008 105 Z96.866 [id number] RAMÍREZ [facility] [address] [place] [address] 07/23/2024 13:48:59 08/12/2024 12:55:47 History of right total knee replacement 3793039211 872415 Z96.651 Pes anseri nus bursitis of right knee 5863666947 573236 M70.51 [id number] MD SYLWIA [facility] [address] [place] [address] 08/31/2024 10:51:40 09/06/2024 10:24:56 History of left total knee replacement 2253919883 840165 Z96.652 Health Concerns Section Related Observation LastModified by Organization Detai ls LastModified Time None Recorded Concern Status LastModified by Organization Details LastModified Time None Recorded Advance Directives Directive None Recorded Payers Insurance Date Sequence Insurance Name Policy Number Policy Grant Covered Member ID Grant Member ID Guarantor Name 09/06/2024 1 [facility] [place] - DOS ON OR AFTER 2022 - ONE CARE (MEDICARE REPLACEMENT/ADV ANTAGE - HMO) Rosie . Iverson-Suyapa ro [id number] Rosie Iverson-Pelaez OBGyn Episode No OBEpisode recorded.
--- OUTSIDE RECORDS SUMMARY | 2024-11-30 10:53 | XMS_ITS | Encounter Summary ---
Author Organization [facility] Address [facility] [place] [address] Care Team Providers Care Bleacher Sulfite Pulp Name Role Phone Kaley Jacobson MD Primary Care Provider Unavailab le Encounter Details Date Type Department Care Team Description 03/14/2017 Release of Information Medical Records [address] [place] [id number] Abstract, Provider Social History Tobacco Use Types [...] on filedocumented in this encounter Care Teams Bleacher Sulfite Pulp Relationship Specialty Start Date End Date Kaley Jacobson MD PCP - General Internal Medicine 03/11/17 documented as of this encounter
--- OUTSIDE RECORDS SUMMARY | 2024-11-30 10:53 | XMS_ITS | Clinical Summary ---
Author Organization [facility] Address [address] [place] [address] Care Team Providers Care Reducing Machine Operator Name Role Phone Kaley Jacobson MD Primary Care Provider Unavailab le Surgical History Surgery Date Site/Laterality Comments TOTAL KNEE ARTHROPLASTY 2009 PROCEDURE: WA ARTHRP KNE CONDYLE&PLATU MEDIAL&LAT COMPARTMENTS CHOLECYSTECTOMY PROCEDURE: [place] LAPAROSCOPY SURG CHOLECYSTECTOMY SECTION PROCEDURE: HISTORICAL OTHER [...] Continued pain 03/2017, seeking 2nd opinion at [facility] History of CVA (cerebrovascu lar accident) [...] age to complete this topic Care Teams Reducing Machine Operator Relationship Specialty Start Date End Date Kaley Jacobson MD PCP - General Internal Medicine 03/11/17
--- OUTSIDE RECORDS SUMMARY | 2024-11-30 10:53 | XMS_ITS | Encounter Summary ---
Author Organization [facility] Address [address] [place] [address] Phone Care Team Providers Care Senior Mechanical Development Engineer Name Role Phone Ashkan Jacobson MD Primary Care Provider [phone] Encounter Details Date Type Department Care Team (Late st Contact Info) Description 04/04/2022 Documentation Only [facility], [address] [place] [address] Macy Giraldo PA Social History [...] filedocumented in this encounter Care Teams Senior Mechanical Development Engineer Relationship Specialty Start Date End Date Ashkan Jacobson MD [address] [place] [address] [address] [place], [place] PCP - General 03/09/19 documented as of this encounter
== END 2024-11-30 10:57 | disposition home or self-care (01) ==
LOC: HO.HUSH 10:08
PROVIDERS: PCP Internal Medicine; Visit Provider Nurse Practitioner Family
DX: N13.30 Unspecified hydronephrosis (principal); R10.9 Unspecified abdominal pain; Z13.9 Encounter for screening, unspecified
CPT/HCPCS: 99213; G2211

== ENCOUNTER → 2024-11-30 10:07 | Outpatient (BNVA) | payer OTHER, SELFPAY | PROVIDERS: PCP Internal Medicine; Visit Provider Nurse Practitioner Family | DX: R39.15 Urgency of urination (principal); N13.30 Unspecified hydronephrosis; R10.9 Unspecified abdominal pain; N20.0 Calculus of kidney | CPT/HCPCS: 81003; 99212 ==

== ENCOUNTER → 2024-12-14 13:37 | Outpatient (REF) | payer OTHER, SELFPAY ==
--- NOTE | 2024-12-14 13:40 | HM_ITS ---
* Total procedure length 30 days. * Wear time 24 days. * Underlying rhythm is sinus with an average rate of 77/Min. * No significant ectopy, tachyarrhythmias or bradyarrhythmias. * Dizziness in patient diary correlates with sinus rhythm. MTDD
== END ==
LOC: HO.CARD 13:37
PROVIDERS: PCP Internal Medicine
DX: I48.91 Unspecified atrial fibrillation (principal)
CPT/HCPCS: 93270

== ENCOUNTER → 2024-12-14 13:40 | Outpatient (BNV) | payer OTHER, SELFPAY | PROVIDERS: PCP Internal Medicine; Visit Provider Internal Medicine | DX: I48.91 Unspecified atrial fibrillation (principal) | CPT/HCPCS: 93272 ==

== ENCOUNTER 2024-12-29 09:07 | Outpatient (AMB) | payer OTHER, SELFPAY ==
--- NOTE | 2024-12-29 09:17 | A.OFFVIS_ITS ---
Vital Signs 12/29/24 09:19 Height 5 ft 1 in Weight 169 lb 12.095 oz BMI 32.1 BP 122/72 Blood Pressure Location Rt brachial Position Sitting Pulse 65 Pulse Source Pulse Oximeter Pulse Oximetry (%) 96 Oxygen Delivery Method Room Air Intake Visit Reasons: DMT2 Follow-Up, Hypeglycemia Intake Note: Patient presents today for a follow-up for Type 2 Diabetes Mellitus: Patient r eports Hyperglycemia Last Diabetic eye exam was on: 02/03/2024 Last Podiatry exam was on: Does not see a Telephone Directory Distributor Driver Most recent HbA1c: 7.2%, 11/18/2023 Random Glucose- 193 mg/dL, Today Studio Producer Required: Yes Studio Producer Language: Professor Of Mechanical Engineering Services: Studio Producer Present Studio Producer Name: JAN Encarnacion Accompanied by: Significant Other Allergies latex (LATEX) Allergy (Mild, Verified 12/29/24 09:30) RASH metformin Adverse Reaction (Verified 12/29/24 09:30) Unknown HPI Comments Details: 64 yo female presenting for diabetes follow up Medical history of depression, osteoporosis, right renal hydronephrosis, hypertension, hyperlipidemia, non toxic multinodular goiter She has DM type 2 diagnosed 20 years ago. Current prescription: Mounjaro 5 weekly, lantus 10 units daily Previously on Lantus 15 units, Trulicity 1.5 mg weekly Jame 2 downloaded TGT 60%%, 40% high, 0% low, GMI 7.5% She has neuropathy, retinopathy, has CKD with creatinine worsening and sees nephrology. She has also been following with urology for hypdronephrosis and UTI Eye exam UTD. stable retinopathy. MNG-following with Dr Izaguirre. Due for thyroid u/s Oct. Increased cold intolerance. TSH low in September ordered recheck ROS see HPI PHYSICAL EXAM: GENERAL: Alert and oriented x 3. NAD EYES: EOMI. Anicteric. HENT: Moist mucous membranes. No scleral icterus. Heterogenous thyroid LUNGS: Clear to auscultation bilaterally. CARDIOVASCULAR: Regular rate and rhythm. No murmur. No JVD. ABDOMEN: Soft, non-tender +bs EXTREMITIES: No edema. Non-tender. SKIN: No rashes or lesions. Warm. NEUROLOGIC: No focal neurological deficits. CN II-XII grossly intact PSYCHIATRIC: Cooperative. Appropriate mood and affect [facility] Medical History Anxiety Depression GERD (gastroesophageal reflux disease) COVID-19 vaccine series completed Tachycardia Toxic multinodul goiter Chronic renal insufficiency Nephrolithiasis Cyst, kidney, acquired Diabetic neuropathy BMI 34.0-34.9,adult BMI 35.0-35.9,adult BMI 36.0-36.9,adult Pre-op evaluation B12 deficiency Obesity (BMI 30-39.9) Non-toxic multinodular goiter Dyslipidemia Diabetic 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 with type 2 diabetes mellitus care home (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 insulin Distal radius fracture, right HTN (hypertension) Chronic kidney disease Diabetes type 2, uncontrolled Surgical History History of abdominoplasty History of surgery S/P fine needle aspiration S/P laparoscopic sleeve gastrectomy History of esophagogastroduodenoscopy (EGD) H/O colonoscopy Hx of biopsy History of partial hysterectomy History of total right knee replacement History of total left knee replacement (~2010) Hx of cholecystectomy History of section History of carpal tunnel release (~2017) Family History Father Hypertension Diabetes History of kidney cancer Mother Diabetes Hypertension Heart disease Brother Hypertension Diabetes Brother No problems noted. Son Hypertension Prediabetes Heart disease Daughter Prediabetes Social History Household Members: Spouse Housing: Apartment Are you a primary housekeeper child care to a significant other at home: No Do you presently have visiting nurse or other home services: No Alcohol intake: never Patient Tobacco Use Status: Never used Tobacco service: No Current occupational status: retired Current occupation: right hand dominant Physical Exam Vital Signs: Oxygen Delivery Method Room Air 12/29/24 09:19 Assessment & Plan Assessment & Plan (1) Diabetes type 2, uncontrolled: Code(s): E11.65 - Type 2 diabetes mellitus with hyperglycemia Category: Medical Qualifiers: Glycemic state: with hyperglycemia Qualified Code(s): E11.65 - Type 2 diabetes mellitus with hyperglycemia Plan 64 year old female for diabetic follow up Patient with hyperglycemia, no hypoglycemia-increase mounjaro to 7.5%. Will increase lantus to 14 units if remains high MNG-us ordered. follows with Dr Izaguirre Orders: Orders TSH reflex Free T4 Today E05.20 - Thyrotoxicosis with toxic multinodular goiter without thyrotoxic crisis or storm, R94.6 - Abnormal results of thyroid function studies Thyroid Peroxidase Antibodies Today E05.20 - Thyrotoxicosis with toxic multinodular goiter without thyrotoxic crisis or storm, R94.6 - Abnormal results of thyroid function studies IRON PROFILE Today E05.20 - Thyrotoxicosis with toxic multinodular goiter without thyrotoxic crisis or storm, R94.6 - Abnormal results of thyroid function studies US thyroid 2 Months E05.20 - Thyrotoxicosis with toxic multinodular goiter without thyrotoxic crisis or storm Medications: New Mounjaro (tirzepatide) 7.5 mg (0.5 mL) subcut QWEEK 6 mL 3RF NS E11.65 - Type 2 diabetes mellitus with hyperglycemia Discontinued Mounjaro (tirzepatide) Discontinued Reason: Doctor's Order 5 mg (0.5 mL) subcut QWEEK 6 mL 3RF NS Coding Level of Care Code Est Pt Level 4 (94074) Diagnoses Uncontrolled type 2 diabetes mellitus with hyperglycemia E11.65 Glycemic state: with hyperglycemia
[2024-12-29 09:19] VITALS: BP 122/72; PULSE 65; O2SAT 96; BMI 32.1
[2024-12-29 09:34] LABS: Glucose, Whole Blood 193 mg/dL (60-115)
--- OUTSIDE RECORDS SUMMARY | 2024-12-29 09:35 | XMS_ITS | Encounter Summary ---
Author Organization [facility] Address [address] [place] [address] Phone Care Team Providers Care Plant Changer Name Role Phone Ashkan Jacobson MD Primary Care Provider [phone] Encounter Details Date Type Department Care Team (Late st Contact Info) Description 12/18/2021 Documentation Only [facility] [place], [address] [place] [address] Macy Giraldo PA Social History [...] on filedocumented in this encounter Care Teams Plant Changer Relationship Specialty Start Date End Date Ashkan Jacobson MD [address] [place] [address] [address] [place], [place] PCP - General 03/09/19 documented as of this encounter
--- OUTSIDE RECORDS SUMMARY | 2024-12-29 09:35 | XMS_ITS | Encounter Summary ---
Author Organization [facility] Address [address] [place] [address] Phone Care Team Providers Care Regional Account Manager Name Role Phone Ashkan Jacobson MD Primary Care Provider [phone] Encounter Details Date Type Department Care Team (Late st Contact Info) Description 07/23/2023 Documentation Only [facility] [place], [address] [place] [address] X[place]ilt [place] [address] [place] [address] Social History Tobacco Use Types [...] filedocumented in this encounter Care Teams Regional Account Manager Relationship Specialty Start Date End Date Ashkan Jacobson MD [address] [place] [address] [address] [place], [place] PCP - General 03/09/19 documented as of this encounter
--- OUTSIDE RECORDS SUMMARY | 2024-12-29 09:35 | XMS_ITS | Clinical Summary ---
Author Organization [facility] [place], Address [address] [place] [address] [place] [address] Phone Care Team Providers Care New Home Sales Consultant Name Role Phone Ashkan Jacobson MD Primary Care Provider [phone] Allergies Active Allergy Reactions Criticality Noted Date [...] 02/05/2023, 05/27/2022, Additional history exists Influenza Vaccine (#1) 2025 01/24/2020 Hepatitis B Vaccine Aged Out [...] AM EDT) Hemoglobin A1C 6.7(H) (4.0-5.6) % [facility] Comment: MONITORING: In known diabetic patients, hemoglobin A1c targets should be discussed with health care provider. DIAGNOSTIC USE: The [place] [employer] (ADA) and the World Health [...] 1 Testing performed or reported by [facility], a Service of [facility], [address] [place] [address] Familia Britton MD, Surveillance Operator [facility]# [id number] Blood specimen (specimen) Venous blood / Unknown 02/05/2023 10:48 AM EDT 02/05/2023 10:49 AM EDT Godfrey Marcum MD LAB BLOOD ORDERABLES Final Re sult [facility] from Last 3 Months or Most Recently Relevant to Health Maintenance Insurance [facility] Care Dual SNP ([id number]) [place]AD[place] [id number] [place] FAJ[place] [id number] Care Teams New Home Sales Consultant Relationship Specialty Start Date End Date Ashkan Jacobson MD [address] [place] [address] PCP - General 03/09/19
--- OUTSIDE RECORDS SUMMARY | 2024-12-29 09:35 | XMS_ITS | Encounter Summary ---
Author Organization [facility] Address [address] [place] [address] Phone Care Team Providers Care Drilling And Production Superintendent Name Role Phone Ashkan Jacobson MD Primary Care Provider [phone] Encounter Details Date Type Department Care Team (Late st Contact Info) Description 09/24/2022 Documentation Only [facility] [place], [address] [place] [address] Godfrey Marcum MD [address] [facility] [place] [address] Social History Tobacco Use Types [...] on filedocumented in this encounter Care Teams Drilling And Production Superintendent Relationship Specialty Start Date End Date Ashkan Jacobson MD [address] [place] [address] [address] [place], [place] PCP - General 03/09/19 documented as of this encounter
--- OUTSIDE RECORDS SUMMARY | 2024-12-29 09:35 | XMS_ITS | Encounter Summary ---
Author Organization [facility] Address [address] [place] [address] Phone Care Team Providers Care Chief Medical Director Name Role Phone Ashkan Jacobson MD Primary Care Provider [phone] Encounter Details Date Type Department Care Team (Late st Contact Info) Description 02/17/2024 Documentation Only [facility] [place], [address] [place] [address] Xochilt Crawford [place] [address] [place] [address] Social History Tobacco Use Types [...] on filedocumented in this encounter Care Teams Chief Medical Director Relationship Specialty Start Date End Date Ashkan Jacobson MD [address] [place] [address] [address] [place], [place] PCP - General 03/09/19 documented as of this encounter
--- OUTSIDE RECORDS SUMMARY | 2024-12-29 09:35 | XMS_ITS | Encounter Summary ---
Author Organization [facility] Address [address] [place] [address] Phone Care Team Providers Care Linux Admin Engineer Name Role Phone Ashkan Jacobson MD Primary Care Provider [phone] Encounter Details Date Type Department Care Team (Late st Contact Info) Description 09/18/2021 Documentation Only [facility] [place], [address] [place] [address] Macy Giraldo PA Social History [...] on filedocumented in this encounter Care Teams Linux Admin Engineer Relationship Specialty Start Date End Date Ashkan Jacobson MD [address] [place] [address] 201 [place], [place] PCP - General 03/09/19 documented as of this encounter
--- OUTSIDE RECORDS SUMMARY | 2024-12-29 09:35 | XMS_ITS | Encounter Summary ---
Author Organization [facility] Address [address] [place] [address] Phone Care Team Providers Care Composition Worker Name Role Phone Ashkan Jacobson MD Primary Care Provider [phone] Encounter Details Date Type Department Care Team (Late st Contact Info) Description 06/19/2021 Documentation Only [facility] [place], [address] [place] [address] Macy Giraldo PA Social History [...] on filedocumented in this encounter Care Teams Composition Worker Relationship Specialty Start Date End Date Ashkan Jacobson MD [address] [place] [address] 201 [place], [place] PCP - General 03/09/19 documented as of this encounter
--- OUTSIDE RECORDS SUMMARY | 2024-12-29 09:35 | XMS_ITS | Encounter Summary ---
Author Organization [facility] Address [address] [place] [address] Phone Care Team Providers Care Steam Cleaning Machine Operator Name Role Phone Ashkan Jacobson MD Primary Care Provider [phone] Encounter Details Date Type Department Care Team (Late st Contact Info) Description 04/04/2022 Documentation Only [facility] [place], [address] [place] [address] Macy Giraldo PA Social [...] on filedocumented in this encounter Care Teams Steam Cleaning Machine Operator Relationship Specialty Start Date End Date Ashkan Jacobson MD [address] [place] [address] 201 [place], [place] PCP - General 03/09/19 documented as of this encounter
--- OUTSIDE RECORDS SUMMARY | 2024-12-29 09:35 | XMS_ITS | Encounter Summary ---
Author Organization [facility] Address [address] [place] [address] Phone Care Team Providers Care Building Rigger Name Role Phone Ashkan Jacobson MD Primary Care Provider [phone] Encounter Details Date Type Department Care Team (Late st Contact Info) Description 09/28/2021 Documentation Only [facility] [place], [address] [place] [address] Macy Giraldo PA Social History [...] on filedocumented in this encounter Care Teams Building Rigger Relationship Specialty Start Date End Date Ashkan Jacobson MD [address] [place] [address] 201 [place], [place] PCP - General 03/09/19 documented as of this encounter
--- OUTSIDE RECORDS SUMMARY | 2024-12-29 09:35 | XMS_ITS | Encounter Summary ---
Author Organization [facility] Address [address] [place] [address] Phone Care Team Providers Care Quality Assurance Engineer Name Role Phone Ashkan Jacobson MD Primary Care Provider [phone] Encounter Details Date Type Department Care Team (Late st Contact Info) Description 03/22/2021 Documentation Only [facility] [place], [address] [place] [address] Macy Giraldo PA Social History [...] filedocumented in this encounter Care Teams Quality Assurance Engineer Relationship Specialty Start Date End Date Ashkan Jacobson MD [address] [place] [address] [address] [place], [place] PCP - General 03/09/19 documented as of this encounter
--- OUTSIDE RECORDS SUMMARY | 2024-12-29 09:36 | XMS_ITS | Encounter Summary ---
Author Organization [facility] Address [address] [place] [address] Phone Care Team Providers Care Repairer Art Objects Name Role Phone Ashkan Jacobson MD Primary Care Provider [phone] Encounter Details Date Type Department Care Team (Late st Contact Info) Description 01/06/2024 Documentation Only [facility] [place], [address] [place] [address] Charlotte Mehta [address] [place] [address] Social History Tobacco Use Types [...] on filedocumented in this encounter Care Teams Repairer Art Objects Relationship Specialty Start Date End Date Ashkan Jacobson MD [address] [place] [address] [address] [place], [place] PCP - General 03/09/19 documented as of this encounter
--- OUTSIDE RECORDS SUMMARY | 2024-12-29 09:36 | XMS_ITS | Encounter Summary ---
Author Organization [facility] Address [address] [place] [address] Phone Care Team Providers Care Clamshell Operator Name Role Phone Ashkan Jacobson MD Primary Care Provider [phone] Encounter Details Date Type Department Care Team (Late st Contact Info) Description 08/21/2023 Documentation Only [facility] [place], [address] [place] [address] Xochilt [place] [address] [place] [address] Social History Tobacco Use Types [...] filedocumented in this encounter Care Teams Clamshell Operator Relationship Specialty Start Date End Date Ashkan Jacobson MD [address] [place] [address] [address] [place], [place] PCP - General 03/09/19 documented as of this encounter
--- OUTSIDE RECORDS SUMMARY | 2024-12-29 09:36 | XMS_ITS | Encounter Summary ---
Author Organization [facility] Address [address] [place] [address] Phone Care Team Providers Care Oysterman Name Role Phone Ashkan Jacobson MD Primary Care Provider Encounter Details Date Type Department Care Team (Late st Contact Info) Description 08/28/2023 Documentation Only [facility] [place], [address] [place] [address] Xochilt Crawford [place] [address] [place] [address] Social History Tobacco Use Types [...] on filedocumented in this encounter Care Teams Oysterman Relationship Specialty Start Date End Date Ashkan Jacobson MD [address] [place] [address] [address] [place], [place] PCP - General 03/09/19 documented as of this encounter
--- OUTSIDE RECORDS SUMMARY | 2024-12-29 09:36 | XMS_ITS | Encounter Summary ---
Author Organization [facility] Address [address] [place] [address] Phone Care Team Providers Care Unishear Operator Name Role Phone Ashkan Jacobson MD Primary Care Provider [phone] Encounter Details Date Type Department Care Team (Late st Contact Info) Description 02/04/2024 Documentation Only [facility] [place], [address] [place] [address] Xochilt Crawford [place] [address] [place] [address] Social History Tobacco Use Types [...] on filedocumented in this encounter Care Teams Unishear Operator Relationship Specialty Start Date End Date Ashkan Jacobson MD [address] [place] [address] [address] [place], [place] PCP - General 03/09/19 documented as of this encounter
--- OUTSIDE RECORDS SUMMARY | 2024-12-29 09:36 | XMS_ITS | Clinical Summary ---
Author Organization [facility] Address [address] [place] [address] Care Team Providers Care Platen Press Feeder Name Role Phone Kaley Jacobson MD Primary Care Provider Unavailab le Surgical History Surgery Date Site/Laterality Comments TOTAL KNEE ARTHROPLASTY 2009 PROCEDURE: [place] ARTHRP KNE CONDYLE&PLATU MEDIAL&LAT COMPARTMENTS CHOLECYSTECTOMY PROCEDURE: [place] LAPAROSCOPY SURG CHOLECYSTECTOMY SECTION PROCEDURE: HISTORICAL OTHER [...] Continued pain 03/2017, seeking 2nd opinion at [facility] History of CVA (cerebrovascu lar accident) [...] age to complete this topic Care Teams Platen Press Feeder Relationship Specialty Start Date End Date Kaley Jacobson MD PCP - General Internal Medicine 03/11/17
--- OUTSIDE RECORDS SUMMARY | 2024-12-29 09:36 | XMS_ITS | Encounter Summary ---
Author Organization [facility] Address [address] [place] [address] Phone Care Team Providers Care Litharge Supervisor Name Role Phone Ashkan Jacobson MD Primary Care Provider [phone] Encounter Details Date Type Department Care Team (Late st Contact Info) Description 07/30/2023 Documentation Only [facility] [place], [address] [place] [address] Xcohilt Crawford [place] [address] [place] [address] Social History Tobacco Use Types [...] on filedocumented in this encounter Care Teams Litharge Supervisor Relationship Specialty Start Date End Date Ashkan Jacobson MD [address] [place] [address] [address] [place], [place] PCP - General 03/09/19 documented as of this encounter
--- OUTSIDE RECORDS SUMMARY | 2024-12-29 09:36 | XMS_ITS | Encounter Summary ---
Author Organization [facility] Address [address] [place] [address] Phone Care Team Providers Care Service Or Work Dispatcher Name Role Phone Ashkan Jacobson MD Primary Care Provider [phone] Encounter Details Date Type Department Care Team (Late st Contact Info) Description 12/19/2023 Documentation Only [facility] [place], [address] [place] [address] Xochilt Crawford [place] [address] [place] [address] Social History Tobacco Use Types [...] on filedocumented in this encounter Care Teams Service Or Work Dispatcher Relationship Specialty Start Date End Date Ashkan Jacobson MD [address] [place] [address] [address] [place], [place] PCP - General 03/09/19 documented as of this encounter
--- OUTSIDE RECORDS SUMMARY | 2024-12-29 09:36 | XMS_ITS | Encounter Summary ---
Author Organization [facility] Address [address] [place] [address] Phone Care Team Providers Care Court Messenger Name Role Phone Ashkan Jacobson MD Primary Care Provider [phone] Encounter Details Date Type Department Care Team (Late st Contact Info) Description 07/21/2023 Documentation Only [facility] [place], [address] [place] [address] [address] [place] [address] [place] [address] Social History Tobacco Use Types [...] on filedocumented in this encounter Care Teams Court Messenger Relationship Specialty Start Date End Date Ashkan Jacobson MD [address] [place] [address] [address] [place], [place] PCP - General 03/09/19 documented as of this encounter
--- OUTSIDE RECORDS SUMMARY | 2024-12-29 09:36 | XMS_ITS | Encounter Summary ---
Author Organization [facility] Address [address] [place] [address] Phone Care Team Providers Care Wood Grainer Name Role Phone Ashkan Jacobson MD Primary Care Provider [phone] Encounter Details Date Type Department Care Team (Late st Contact Info) Description 08/04/2023 Documentation Only [facility] [place], [address] [place] [address] Xochilt Crawford [place] [address] [place] [address] Social History Tobacco Use Types [...] filedocumented in this encounter Care Teams Wood Grainer Relationship Specialty Start Date End Date Ashkan Jacobson MD [address] [place] [address] [address] [place], [place] PCP - General 03/09/19 documented as of this encounter
== END 2024-12-29 09:52 | disposition home or self-care (01) ==
LOC: HO.ENCR 09:07
PROVIDERS: PCP Internal Medicine; Visit Provider Internal Medicine
DX: E11.65 Type 2 diabetes mellitus with hyperglycemia (principal)

== ENCOUNTER → 2024-12-29 09:07 | Outpatient (BNVA) | payer OTHER, SELFPAY | PROVIDERS: PCP Internal Medicine; Visit Provider Internal Medicine | DX: E11.65 Type 2 diabetes mellitus with hyperglycemia (principal); E05.20 Thyrotoxicosis with toxic multinodular goiter without thyrotoxic crisis or storm; R94.6 Abnormal results of thyroid function studies | CPT/HCPCS: 82947; 99212 ==

== ENCOUNTER 2025-02-22 13:55 | Outpatient (AMB) | payer OTHER, SELFPAY ==
[2025-02-22 14:27] VITALS: BP 118/64; PULSE 73; BMI 30.1
--- NOTE | 2025-02-22 14:27 | MHC.OFFVIS ---
Vital Signs 02/22/25 14:27 Height 5 ft 1 in Weight 159 lb 2.78 oz BMI 30.1 BP 118/64 Blood Pressure Location Lt brachial Position Sitting Pulse 73 Pulse Source Monitor Intake Visit Reasons: f/up-lab, monitor Coffee Roaster Helper Required: Yes Coffee Roaster Helper Name: hernandez- Accompanied by: Spouse Allergies latex (LATEX) Allergy (Mild, Verified 02/22/25 14:30) RASH metformin Adverse Reaction (Verified 02/22/25 14:30) Unknown Medication List - Last Reconciled 02/22/25 by Steven Franz NP amlodipine 10 mg PO DAILY apixaban 5 mg PO BID atorvastatin 40 mg PO BEDTIME blood-glucose meter (OneTouch Ultra2 Meter) As directed docusate sodium 100 mg PO BID flash glucose sensor (FreeStyle Jame 2 Sensor kit) USE DIRECTED TO TEST BLOOD SUGAR. CHANGE EVERY 10 DAYS fluoxetine 40 mg PO DAILY fluticasone propionate 50 mcg/actuation 1 spray intranasal DAILY PRN FreeStyle Jame 2 [place] (flash glucose scanning reader) As directed NS FreeStyle Jame 3 Plus Sensor (blood-glucose sensor) every 15 days NS FreeStyle Jame 3 [place] (blood-glucose,resource protection specialist,cont) As directed NS hydrochlorothiazide 12.5 mg PO DAILY Lantus Solostar U-100 Insulin (insulin glargine) 10 units (0.1 mL) subcut QPM NS lisinopril 40 mg PO DAILY metoprolol succinate ER 50 mg PO DAILY Mounjaro (tirzepatide) 7.5 mg (0.5 mL) subcut QWEEK NS OneTouch Delica Plus Lancet (lancets) four times daily NS OneTouch Ultra Test (blood sugar diagnostic) four times dialy NS oxycodone 5 mg PO Q6H PRN pen needle, diabetic (Comfort EZ Pen [place]) As directed injects once a day sennosides (senna) 8.6 mg PO DAILY trazodone 50 - 150 mg PO BEDTIME PRN HPI Comments Details: This is a 64-year-old female patient coming in for a follow-up visit accompanied by her . Patient with a history of hypertension, hyperlipidemia, diabetes and reported history of AFib status post ablation in 2019 in [place] for which we have not been able to obtain any records and patient states she is also unable to do so. Previously patient has been reporting some palpitations which she also reports were similar to what she had back in the past when she was diagnosed with AFib. Patient has moved here from [place] and all her medications were stopped. Patient states that she was on Eliquis previously and given her elevated Kevin Vasc score of 3, we restarted her back on Eliquis. Today, patient is reporting feeling well overall without any exertional symptoms of chest pain, shortness of breath, palpitations, dizziness, orthopnea, PND, leg edema, presyncope or syncope. Patient is reporting compliance with all medications. [facility] Medical History Anxiety Depression GERD (gastroesophageal reflux disease) COVID-19 vaccine series completed Tachycardia Toxic multinodul goiter Chronic renal insufficiency Nephrolithiasis Cyst, kidney, acquired Diabetic neuropathy BMI 34.0-34.9,adult BMI 35.0-35.9,adult BMI 36.0-36.9,adult Pre-op evaluation B12 deficiency Obesity (BMI 30-39.9) Non-toxic multinodular goiter Dyslipidemia Diabetic 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 with type 2 diabetes mellitus 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 Distal radius fracture, right HTN (hypertension) Chronic kidney disease Diabetes type 2, uncontrolled Surgical History History of abdominoplasty History of surgery S/P fine needle aspiration S/P laparoscopic sleeve gastrectomy History of esophagogastroduodenoscopy (EGD) H/O colonoscopy Hx of biopsy History of partial hysterectomy History of total right knee replacement History of total left knee replacement (~2010) Hx of cholecystectomy History of section History of carpal tunnel release (~2017) Family History Father Hypertension Diabetes History of kidney cancer Mother Diabetes Hypertension Heart disease Brother Hypertension Diabetes Brother No problems noted. Son Hypertension Prediabetes Heart disease Daughter Prediabetes Social History Household Members: Spouse Housing: Apartment Are you a primary care professional to a significant other at home: No Do you presently have visiting nurse or other home services: No Alcohol intake: never Patient Tobacco Use Status: Never used Tobacco service: No Current occupational status: retired Current occupation: right hand dominant Review of Systems Const Denies daytime sleepiness, Denies difficulty sleeping, Denies snoring, Denies stops breathing during sleep and Denies weakness Card Denies chest pain, Denies rapid heart rate, Denies irregular heart rhythm, Denies claudication, Denies leg edema, Denies lightheadedness, Reports palpitations, Reports dyspnea, Denies dyspnea on exertion, Denies orthopnea, Denies paroxysmal nocturnal dyspnea and Denies slow heart rate Resp Denies cough, Reports dyspnea, Denies dyspnea on exertion and Denies snoring GI Reports no additional complaints, Denies hematochezia, Denies change in stool character and Denies dyspepsia Musc Denies abnormal gait, Denies muscle weakness and Denies numbness Neuro Denies abnormal gait, Denies numbness and Denies weakness Endo Reports palpitations Physical Exam Vital Signs: Last Vital Signs Pulse 73 02/22/25 14:27 BP 118/64 02/22/25 14:27 BMI result Body Mass Index 30.1 Assessment & Plan Assessment & Plan (1) Afib: Code(s): I48.91 - Unspecified atrial fibrillation Category: Medical Plan: 08/12/2024- patient underwent a coronary CTA for complaints of chest discomfort that showed mild stenosis in the proximal and mid LAD, scattered and mixed noncalcified disease throughout the descending thoracic aorta, and less than 6 mm pulmonary nodules. 09/23/2024-echo study showed a low-normal LV systolic function with an ejection fraction between a 50-55% with grade 1 diastolic dysfunction. 12/14/2024-cardiac event monitor showed a underlying baseline sinus rhythm with an average heart rate of 77 beats per minute. No AFib. Reported history of AFib with ablation in 2014 per patient in [place], however, we still do not have any official records of this. Patient unable to obtain it from [place] either. Patient was on Eliquis and metoprolol therapy status post ablation however due to relocation in [place], patient was not able to continue these medications due to lack of PCP. We restarted her Eliquis. Recent cardiac event monitor did not show any AFib however, given her elevated Kevin Vasc risk score of 3 and her reported history of AFib, we came to a mutual decision to continue her Eliquis therapy for full anticoagulation. No reported signs of bleeding. Continue metoprolol for rate control approach. Advised to complete her labs to check her kidney function. Patient verbalizes understanding. (2) HTN (hypertension): Code(s): I10 - Essential (primary) hypertension Category: Medical Plan: Blood pressure is well-controlled. Continue current regimen. Advised monitoring blood pressures and maintaining a log of it. Ideally, blood pressure goal less than 130/80. (3) Dyslipidemia: Code(s): E78.5 - Hyperlipidemia, unspecified Category: Medical Plan: Last LDL at 136. Continue statin therapy. Ideally LDL goal less than 70. Advised to complete her labs. (4) Diabetes type 2, uncontrolled: Code(s): E11.65 - Type 2 diabetes mellitus with hyperglycemia Category: Medical Qualifiers: Glycemic state: with hyperglycemia Qualified Code(s): E11.65 - Type 2 diabetes mellitus with hyperglycemia Plan: Continue aggressive diabetes management with an A1c goal less than 7%. Follows with endocrinology. Advised heart healthy diet, regular exercise, adequate hydration, avoiding caffeinated beverages and alcohol, med compliance, and aggressive management of vascular risk factors. Follow up in 1 year, sooner if needed. In the interim, patient will call the office with any concerns or change in symptoms. This note was generated using voice recognition software. While every effort has been made to ensure accuracy and proper paper coating machine operator, there may be occasional errors that could affect the content or meaning of the described symptoms. Orders: Orders Lipid Panel Today E78.5 - Hyperlipidemia, unspecified Coding Level of Care Code Est Pt Level 4 (67746) Complex EM visit Add On G2211 Diagnoses Afib I48.91 HTN (hypertension) I10 Dyslipidemia E78.5 Uncontrolled type 2 diabetes mellitus with hyperglycemia E11.65 Glycemic state: with hyperglycemia Time Spent (min) 31 Comment Time spent in reviewing the chart, test results, assessment, counseling and documentation.
--- OUTSIDE RECORDS SUMMARY | 2025-02-22 18:40 | XMS_ITS | Encounter Summary ---
Author Organization [facility] Address [address] [place] [address] Phone Care Team Providers Care Contract Project Manager Name Role Phone Ashkan Jacobson MD Primary Care Provider [phone] Encounter Details Date Type Department Care Team (Late st Contact Info) Description 09/18/2021 Documentation Only [facility] [place], [address] [place] [address] Macy Giraldo PA Social History [...] on filedocumented in this encounter Care Teams Contract Project Manager Relationship Specialty Start Date End Date Ashkan Jacobson MD [address] [place] [address] 201 [place], [place] PCP - General 03/09/19 documented as of this encounter
--- OUTSIDE RECORDS SUMMARY | 2025-02-22 18:40 | XMS_ITS | Encounter Summary ---
Author Organization [facility] Address [address] [place] [address] Phone Care Team Providers Care Medical Laboratory Manager Name Role Phone Ashkan Jacobson MD Primary Care Provider [phone] Encounter Details Date Type Department Care Team (Late st Contact Info) Description 09/28/2021 Documentation Only [facility] [place], [address] [place] [address] Macy Giraldo PA Social History [...] on filedocumented in this encounter Care Teams Medical Laboratory Manager Relationship Specialty Start Date End Date Ashkan Jacobson MD [address] [place] [address] 201 [place], [place] PCP - General 03/09/19 documented as of this encounter
--- OUTSIDE RECORDS SUMMARY | 2025-02-22 18:40 | XMS_ITS | Encounter Summary ---
Author Organization [facility] Address [address] [place] [address] Phone Care Team Providers Care Operator Prefinish Name Role Phone Ashkan Jacobson MD Primary Care Provider [phone] Encounter Details Date Type Department Care Team (Late st Contact Info) Description 04/04/2022 Documentation Only [facility] [place], [address] [place] [address] Macy Giraldo PA Social History [...] on filedocumented in this encounter Care Teams Operator Prefinish Relationship Specialty Start Date End Date Ashkan Jacobson MD [address] [place] [address] 201 [place], [place] PCP - General 03/09/19 documented as of this encounter
--- OUTSIDE RECORDS SUMMARY | 2025-02-22 18:40 | XMS_ITS | Encounter Summary ---
Author Organization [facility] Address [facility] [place] [address] Care Team Providers Care Men'S Designer Name Role Phone Kaley Jacobson MD Primary Care Provider Unavailab le Encounter Details Date Type Department Care Team Description 03/14/2017 Release of Information Medical Records [address] [place] [id number] Abstract, Provider Social History Tobacco Use Types [...] on filedocumented in this encounter Care Teams Men'S Designer Relationship Specialty Start Date End Date Kaley Jacobson MD PCP - General Internal Medicine 03/11/17 documented as of this encounter
--- OUTSIDE RECORDS SUMMARY | 2025-02-22 18:40 | XMS_ITS | Encounter Summary ---
Author Organization [facility] Address [address] [place] [address] Phone Care Team Providers Care Diesel Fleet Mechanic Name Role Phone Ashkan Jacobson MD Primary Care Provider [phone] Encounter Details Date Type Department Care Team (Late st Contact Info) Description 06/19/2021 Documentation Only [facility] [place], [address] [place] [address] Macy Giraldo PA Social History [...] on filedocumented in this encounter Care Teams Diesel Fleet Mechanic Relationship Specialty Start Date End Date Ashkan Jacobson MD [address] [place] [address] 201 [place], [place] PCP - General 03/09/19 documented as of this encounter
--- OUTSIDE RECORDS SUMMARY | 2025-02-22 18:40 | XMS_ITS | Encounter Summary ---
Author Organization [facility] Address [address] [place] [address] Phone Care Team Providers Care Purification Supervisor Name Role Phone Ashkan Jacobson MD Primary Care Provider [phone] Encounter Details Date Type Department Care Team (Late st Contact Info) Description 03/22/2021 Documentation Only [facility] [place], [address] [place] [address] Macy Giraldo PA Social History [...] on filedocumented in this encounter Care Teams Purification Supervisor Relationship Specialty Start Date End Date Ashkan Jacobson MD [address] [place] [address] 201 [place], [place] PCP - General 03/09/19 documented as of this encounter
--- OUTSIDE RECORDS SUMMARY | 2025-02-22 18:41 | XMS_ITS | Clinical Summary ---
Author Organization [facility] Address [address] [place] [address] Care Team Providers Care Community Mental Health Social Worker Name Role Phone Kaley Jacobson MD [...] 03/2017, seeking 2nd opinion at [facility] History of CVA (cerebrovascular accident ) 06/06/2017 Overview: 06/27/2016 Duplex bilat carotid US, no evidence of significant stenosis. Lipoma of left thigh 06/06/2017 Overview: 03/21/2016 bx Multiple renal cysts 06/06/2017 Overview: Bilateral, 06/04/2016 Multiple thyroid nodules 06/06/2017 Overview: US 12/2015 Multiple pulmonary nodules 06/06/2017 Overview: Bilaterally, chest CT 12/2015 Depression HTN (hypertension) Immunizations Name Administration Dates Next Due Sabkh-Fgqlv-Vdpyefft + 10/04/2014 Varicella Titre-Positive + 10/04/2014 Social [...] 77 03/12/2017 8:37 AM EST Temperature 36.6 C (97.9 F) 03/14/2022 10:49 AM EST Respiratory Rate 17 03/14/2022 10:49 AM EST [...] EXAM 03/14/2023 03/14/2022 BMI CHECK/ADVISE 05/05/2024 INFLUENZA (#1) 2025 02/05/2022, 10/2015, 02/04/2015 Care Teams Community Mental Health Social Worker Relationship Specialty Start Date End Date Kaley Jacobson MD PCP - General Internal Medicine 03/11/17
--- OUTSIDE RECORDS SUMMARY | 2025-02-22 18:41 | XMS_ITS | Encounter Summary ---
Author Organization [facility] Address [address] [place] [address] Phone Care Team Providers Care Sales Operations Manager Name Role Phone Ashkan Jacobson MD Primary Care Provider [phone] Encounter Details Date Type Department Care Team (Late st Contact Info) Description 07/23/2023 Documentation Only [facility] [place], [address] [place] [address] Xochilt Crawford [place] [address] [place] [address] Social History Tobacco Use Types [...] filedocumented in this encounter Care Teams Sales Operations Manager Relationship Specialty Start Date End Date Ashkan Jacobson MD [address] [place] [address] 201 [place], [place] PCP - General 03/09/19 documented as of this encounter
--- OUTSIDE RECORDS SUMMARY | 2025-02-22 18:41 | XMS_ITS | Encounter Summary ---
Author Organization [facility] Address [address] [place] [address] Phone Care Team Providers Care Drapery Head Former Name Role Phone Ashkan Jacobson MD Primary Care Provider [phone] Encounter Details Date Type Department Care Team (Late st Contact Info) Description 08/21/2023 Documentation Only [facility] [place], [address] [place] [address] Xochilt Crawford [place] [address] [place] [address] Social History Tobacco Use Types [...] on filedocumented in this encounter Care Teams Drapery Head Former Relationship Specialty Start Date End Date Ashkan Jacobson MD [address] [place] [address] 201 [place], [place] PCP - General 03/09/19 documented as of this encounter
--- OUTSIDE RECORDS SUMMARY | 2025-02-22 18:41 | XMS_ITS | Clinical Summary ---
Author Organization [facility] [place], Address [address] [place] [address] [place] [address] Phone Care Team Providers Care Clinical Trial Data Manager Name Role Phone Ashkan Jacobson MD Primary Care Provider [phone] Allergies Active Allergy Reactions Criticality Noted Date [...] with health care provider. DIAGNOSTIC USE: The [place] [employer] (ADA) and the World Health [...] Supplement 1 Testing performed or reported by [facility], a Service of [facility], [address] [place] [address] Familia Britton MD, Manager Marketing Sales [facility]# [id number] Blood specimen (specimen) Venous blood / Unknown 02/05/2023 10:48 AM EDT 02/05/2023 10:49 AM EDT Godfrey Marcum MD LAB BLOOD ORDERABLES Final Re sult [facility] from Last 3 Months or Most Recently Relevant to Health Maintenance Insurance [facility] Care Dual SNP ([id number]) [place] [id number] [place] [id number] Care Teams Clinical Trial Data Manager Relationship Specialty Start Date End Date Ashkan Jacobson MD [address] [place] [address] PCP - General 03/09/19
--- OUTSIDE RECORDS SUMMARY | 2025-02-22 18:41 | XMS_ITS | Clinical Summary ---
Author Organization [facility] Address [address] [place] [address] Care Team Providers Care Administrative Library Assistant Name Role Phone Kaley Jacobson MD Primary Care Provider Unavailab le Surgical History Surgery Date Site/Laterality Comments TOTAL KNEE ARTHROPLASTY 2009 PROCEDURE: VT ARTHRP KNE CONDYLE&PLATU MEDIAL&LAT COMPARTMENTS CHOLECYSTECTOMY PROCEDURE: [place] LAPAROSCOPY SURG CHOLECYSTECTOMY SECTION PROCEDURE: HISTORICAL OTHER [...] pain 03/2017, seeking 2nd opinion at [facility] History of CVA (cerebrovascu lar accident) [...] Last Done Comments Breast Cancer Screening 1961 Colorectal Cancer Screening: Colonoscopy 1961 Diabetes: Annual GFR (Glomer ular Filtration Rate) 1961 Diabetes: Annual Foot Exam 1971 Diabetes: Annual Retina Eye Exam 1971 DTaP,Tdap,and Td Vaccines (1 - Tdap) 1980 Cervical Cancer Screening: P ap Smear 1982 Pneumococcal Vaccine: 50+ Ye ars (1 of 1 - PCV) 2011 RSV Immunization Adult Patie nts (1 - Risk 50-74 years 1-dose series) 2011 Zoster Vaccines (1 of 2) 2011 Cholesterol Screening (Lipid Panel) 04/07/2022 HIV Screening 04/07/2022 Hepatitis C Screening 04/07/2022 Social Influencers of Health Screening 04/07/2022 Diabetes: Annual Urine Albumin-Creatinine Ratio (uACR) 04/19/2022 Diabetes: Blood Sugar Contro l Test (HGBA1C) 04/19/2022 Hypertension/CHF/CAD Annual BMP Blood Test 04/19/2022 Depression Screening 05/05/2024 COVID-19 Vaccine (1 - 2023-2 5 season) 2025 Influenza Vaccine (#1) 2025 HIB Vaccines Aged [...] age to complete this topic Care Teams Administrative Library Assistant Relationship Specialty Start Date End Date Kaley Jacobson MD PCP - General Internal Medicine 03/11/17
--- OUTSIDE RECORDS SUMMARY | 2025-02-22 18:41 | XMS_ITS | Encounter Summary ---
Author Organization [facility] Address [address] [place] [address] Phone Care Team Providers Care Mathematics Technician Name Role Phone Ashkan Jacobson MD Primary Care Provider [phone] Encounter Details Date Type Department Care Team (Late st Contact Info) Description 02/17/2024 Documentation Only [facility] [place], [address] [place] [address] Xochilt Crawford [place] [address] [place] [address] Social History Tobacco Use Types [...] on filedocumented in this encounter Care Teams Mathematics Technician Relationship Specialty Start Date End Date Ashkan Jacobson MD [address] [place] [address] [address] [place], [place] PCP - General 03/09/19 documented as of this encounter
--- OUTSIDE RECORDS SUMMARY | 2025-02-22 18:41 | XMS_ITS | Encounter Summary ---
Author Organization [facility] Address [address] [place] [address] Phone Care Team Providers Care Aemt Name Role Phone Ashkan Jacobson MD Primary Care Provider [phone] Encounter Details Date Type Department Care Team (Late st Contact Info) Description 02/04/2024 Documentation Only [facility] [place], [address] [place] [address] Xochilt Crawford [place] [address] [place] [address] Social History Tobacco Use Types [...] on filedocumented in this encounter Care Teams Aemt Relationship Specialty Start Date End Date Ashkan Jacobson MD [address] [place] [address] 201 [place], [place] PCP - General 03/09/19 documented as of this encounter
--- OUTSIDE RECORDS SUMMARY | 2025-02-22 18:41 | XMS_ITS | Encounter Summary ---
Author Organization [facility] Address [address] [place] [address] Phone Care Team Providers Care Hot Roller Name Role Phone Ashkan Jacobson MD Primary Care Provider [phone] Encounter Details Date Type Department Care Team (Late st Contact Info) Description 08/28/2023 Documentation Only [facility] [place], [address] [place] [address] Xochilt Crawford [place] [address] [place] [address] Social History Tobacco Use Types [...] on filedocumented in this encounter Care Teams Hot Roller Relationship Specialty Start Date End Date Ashkan Jacobson MD [address] [place] [address] [address] [place], [place] PCP - General 03/09/19 documented as of this encounter
--- OUTSIDE RECORDS SUMMARY | 2025-02-22 18:41 | XMS_ITS | Encounter Summary ---
Author Organization [facility] Address [facility] [place] [address] Care Team Providers Care Bomb Technician Name Role Phone Kaley Jacobson MD Primary Care Provider Unavailab le Encounter Details Date Type Department Care Team Description 11/18/2017 Release of Information Medical Records [address] [place] [id number] Abstract, Provider Social History Tobacco Use Types [...] on filedocumented in this encounter Care Teams Bomb Technician Relationship Specialty Start Date End Date Kaley Jacobson MD PCP - General Internal Medicine 03/11/17 documented as of this encounter
--- OUTSIDE RECORDS SUMMARY | 2025-02-22 18:41 | XMS_ITS | Encounter Summary ---
Author Organization [facility] Address [address] [place] [address] Phone Care Team Providers Care Director Corporate Sales Name Role Phone Ashkan Jacobson MD Primary Care Provider [phone] Encounter Details Date Type Department Care Team (Late st Contact Info) Description 07/30/2023 Documentation Only [facility] [place], [address] [place] [address] Xochilt Crawford [place] [address] [place] [address] Social History Tobacco Use Types [...] filedocumented in this encounter Care Teams Director Corporate Sales Relationship Specialty Start Date End Date Ashkan Jacobson MD [address] [place] [address] 201 [place], [place] PCP - General 03/09/19 documented as of this encounter
--- OUTSIDE RECORDS SUMMARY | 2025-02-22 18:41 | XMS_ITS | Encounter Summary ---
Author Organization [facility] Address [address] [place] [address] Phone Care Team Providers Care Heart Surgeon Name Role Phone Ashkan Jacobson MD Primary Care Provider [phone] Encounter Details Date Type Department Care Team (Late st Contact Info) Description 01/06/2024 Documentation Only [facility] [place], [address] [place] [address] Charlotte Mehta [address] [place] [address] Social History Tobacco Use Types [...] on filedocumented in this encounter Care Teams Heart Surgeon Relationship Specialty Start Date End Date Ashkan Jacobson MD [address] [place] [address] 201 [place], [place] PCP - General 03/09/19 documented as of this encounter
--- OUTSIDE RECORDS SUMMARY | 2025-02-22 18:41 | XMS_ITS | Encounter Summary ---
Author Organization [facility] Address [address] [place] [address] Phone Care Team Providers Care Fraud Prevention Analyst Name Role Phone Ashkan Jacobson MD Primary Care Provider [phone] Encounter Details Date Type Department Care Team (Late st Contact Info) Description 12/19/2023 Documentation Only [facility] [place], [address] [place] [address] Xochilt Crawford [place] [address] [place] [address] Social History Tobacco Use Types [...] on filedocumented in this encounter Care Teams Fraud Prevention Analyst Relationship Specialty Start Date End Date Ashkan Jacobson MD [address] [place] [address] [address] [place], [place] PCP - General 03/09/19 documented as of this encounter
--- OUTSIDE RECORDS SUMMARY | 2025-02-22 18:41 | XMS_ITS | Encounter Summary ---
Author Organization [facility] Address [address] [place] [address] Phone Care Team Providers Care Ross Lift Operator Name Role Phone Ashkan Jacobson MD Primary Care Provider [phone] Encounter Details Date Type Department Care Team (Late st Contact Info) Description 09/24/2022 Documentation Only [facility] [place], [address] [place] [address] Godfrey Marcum MD [address] [facility] [place] [address] Social History Tobacco Use Types [...] on filedocumented in this encounter Care Teams Ross Lift Operator Relationship Specialty Start Date End Date Ashkan Jacobson MD [address] [place] [address] [address] [place], [place] PCP - General 03/09/19 documented as of this encounter
--- OUTSIDE RECORDS SUMMARY | 2025-02-22 18:41 | XMS_ITS | Encounter Summary ---
Author Organization [facility] Address [address] [place] [address] Phone Care Team Providers Care Silverware Buffer Name Role Phone Ashkan Jacobson MD Primary Care Provider [phone] Encounter Details Date Type Department Care Team (Late st Contact Info) Description 08/04/2023 Documentation Only [facility] [place], [address] [place] [address] Xochilt Crawford [place] [address] [place] [address] Social History Tobacco Use Types [...] on filedocumented in this encounter Care Teams Silverware Buffer Relationship Specialty Start Date End Date Ashkan Jacobson MD [address] [place] [address] 201 [place], [place] PCP - General 03/09/19 documented as of this encounter
--- OUTSIDE RECORDS SUMMARY | 2025-02-22 18:41 | XMS_ITS | Encounter Summary ---
Author Organization [facility] Address [address] [place] [address] Phone Care Team Providers Care Political Science Chair Name Role Phone Ashkan Jacobson MD Primary Care Provider [phone] Encounter Details Date Type Department Care Team (Late st Contact Info) Description 07/21/2023 Documentation Only [facility] [place], [address] [place] [address] Xochilt Crawford [place] [address] [place] [address] Social History Tobacco Use Types [...] on filedocumented in this encounter Care Teams Political Science Chair Relationship Specialty Start Date End Date Ashkan Jacobson MD [address] [place] [address] 201 [place], [place] PCP - General 03/09/19 documented as of this encounter
--- OUTSIDE RECORDS SUMMARY | 2025-02-22 18:41 | XMS_ITS | Encounter Summary ---
Author Organization [facility] Address [address] [place] [address] Phone Care Team Providers Care Supervisor Lamp Shades Name Role Phone Ashkan Jacobson MD Primary Care Provider [phone] Encounter Details Date Type Department Care Team (Late st Contact Info) Description 12/18/2021 Documentation Only [facility] [place], [address] [place] [address] Macy Giraldo PA Social History [...] filedocumented in this encounter Care Teams Supervisor Lamp Shades Relationship Specialty Start Date End Date Ashkan Jacobson MD [address] [place] [address] 201 [place], [place] PCP - General 03/09/19 documented as of this encounter
--- OUTSIDE RECORDS SUMMARY | 2025-02-22 18:41 | XMS_ITS | Encounter Summary ---
Author Organization [facility] Address [facility] [place] [address] Care Team Providers Care Director Translation Name Role Phone Kaley Jacobson MD Primary Care Provider Unavailab le Encounter Details Date Type Department Care Team Description 05/02/2017 Transfer Records Medical Records [address] [place] [id number] Abstract, Provider Social History Tobacco Use Types [...] Kaley Jacobson sent to Carlotta Suarez R.N. Ribbon Hanking Machine Operator. documented in this encounter Plan of Treatment Not on file documented as of this encounter Visit Diagnoses Not on filedocumented in this encounter Care Teams Director Translation Relationship Specialty Start Date End Date Kaley Jacobson MD PCP - General Internal Medicine 03/11/17 documented as of this encounter
== END 2025-02-22 15:03 | disposition home or self-care (01) ==
LOC: HO.HCS 13:56
PROVIDERS: PCP Internal Medicine
DX: I48.91 Unspecified atrial fibrillation (principal); I10 Essential (primary) hypertension; E78.5 Hyperlipidemia, unspecified; E11.65 Type 2 diabetes mellitus with hyperglycemia
CPT/HCPCS: 93010; 99214; G2211

== ENCOUNTER → 2025-02-22 13:55 | Outpatient (BNVA) | payer OTHER, SELFPAY | PROVIDERS: PCP Internal Medicine | DX: I10 Essential (primary) hypertension (principal); E78.5 Hyperlipidemia, unspecified; E11.65 Type 2 diabetes mellitus with hyperglycemia | CPT/HCPCS: 93005; 99212 ==

== ENCOUNTER 2025-02-23 08:38 | Outpatient (AMB) | payer OTHER, SELFPAY ==
--- NOTE | 2025-02-23 08:44 | MHC.OFFVIS ---
Vital Signs 02/23/25 09:14 Height 5 ft 1 in Weight 160 lb 14.999 oz BMI 30.4 BP 116/76 Blood Pressure Location Rt brachial Position Sitting Pulse 69 Pulse Source Pulse Oximeter Pulse Oximetry (%) 98 Oxygen Delivery Method Room Air Intake Visit Reasons: A1C DM Intake Note: Patient presents today for a follow-up for Type 2 Diabetes Mellitus: Last Diabetic eye exam was on: Appt scheduled on 02/24/2025, [facility] Last Podiatry exam was on: Does not see a Railroad Track Mechanic Most recent HbA1c: 6.5%, 02/23/2025 Random Glucose- 197 mg/dL, Today Learning Disabilities Resource Teacher Required: Yes Learning Disabilities Resource Teacher Language: Energy Project Manager Services: Learning Disabilities Resource Teacher Offered & Declined Learning Disabilities Resource Teacher Name: JAN Encarnacion Accompanied by: Significant Other Allergies latex (LATEX) Allergy (Mild, Verified 02/23/25 08:45) RASH metformin Adverse Reaction (Verified 02/23/25 08:45) Unknown HPI Comments Details: 64 yo female presenting for diabetes follow up Medical history of depression, osteoporosis, right renal hydronephrosis, hypertension, hyperlipidemia, non toxic multinodular goiter She has DM type 2 diagnosed 20 years ago. Current prescription: Mounjaro 7.5 weekly Lantus 10 units daily Previously on Lantus 15 units, Trulicity 1.5 mg weekly Jame 2 downloaded TGT 95%%, 5% high, 0% low, GMI 6.5% POC A1C today is 6.5% She has neuropathy, retinopathy, has CKD with creatinine worsening and sees nephrology. She has also been following with urology for hypdronephrosis and UTI. Does not require podiatry Eye exam UTD. stable retinopathy. She has an appointment tomorrow [facility]-following with Dr Izaguirre. She has thyroid ultrasound scheduled for March and follow up thereafter. ROS see HPI PHYSICAL EXAM: GENERAL: Alert and oriented x 3. NAD EYES: EOMI. Anicteric. HENT: Moist mucous membranes. No scleral icterus. Heterogenous thyroid LUNGS: Clear to auscultation bilaterally. CARDIOVASCULAR: Regular rate and rhythm. No murmur. No JVD. ABDOMEN: Soft, non-tender +bs EXTREMITIES: No edema. Non-tender. SKIN: No rashes or lesions. Warm. NEUROLOGIC: No focal neurological deficits. CN II-XII grossly intact PSYCHIATRIC: Cooperative. 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 Distal radius fracture, right HTN (hypertension) Chronic kidney disease Diabetes type 2, uncontrolled Surgical History History of abdominoplasty History of surgery S/P fine needle aspiration S/P laparoscopic sleeve gastrectomy History of esophagogastroduodenoscopy (EGD) H/O colonoscopy Hx of biopsy History of partial hysterectomy History of total right knee replacement History of total left knee replacement (~2010) Hx of cholecystectomy History of section History of carpal tunnel release (~2017) Family History Father Hypertension Diabetes History of kidney cancer Mother Diabetes Hypertension Heart disease Brother Hypertension Diabetes Brother No problems noted. Son Hypertension Prediabetes Heart disease Daughter Prediabetes Social History Household Members: Spouse Housing: Apartment Are you a primary child care associate teacher to a significant other at home: No Do you presently have visiting nurse or other home services: No Alcohol intake: never Patient Tobacco Use Status: Never used Tobacco service: No Current occupational status: retired Current occupation: right hand dominant Physical Exam Vital Signs: Last Vital Signs Pulse 69 02/23/25 09:14 BP 116/76 02/23/25 09:14 Pulse Ox 98 02/23/25 09:14 Oxygen Delivery Method Room Air 02/23/25 09:14 BMI result Body Mass Index 30.4 Results AMB Hemoglobin A1c AMB Hemoglobin A1c 6.5 % Last Edit by JAN Encarnacion on 02/23/25 09:30 Results Reviewed Results Reviewed: Laboratory Last Values Glucose (Clinic) 197 mg/dL (60-115) H 02/23/25 09:21 Hgb A1c (Clinic) 6.5 % (4.0-6.0) H 02/23/25 09:28 Assessment & Plan Assessment & Plan (1) Diabetes type 2, uncontrolled: Code(s): E11.65 - Type 2 diabetes mellitus with hyperglycemia Category: Medical Qualifiers: Glycemic state: with hyperglycemia Qualified Code(s): E11.65 - Type 2 diabetes mellitus with hyperglycemia (2) termite control service representative (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 insulin: Code(s): Z79.4 - [facility] (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 insulin Category: Medical Plan 64 year old female for diabetes follow up Congratulated on interval diabetic control Continued efforts toward weight loss Continue current dosing of mounjaro, lantus Treat any hypoglycemia by rules of 15s Eye exam tomorrow Orders: Orders AMB Hemoglobin A1c Today E11.65 - Type 2 diabetes mellitus with hyperglycemia Medications: Refilled FreeStyle Jame 3 Plus Sensor (blood-glucose sensor) every 15 days 6 ea 3RF NS E11.42 - Type 2 diabetes mellitus with diabetic polyneuropathy, E16.2 - Hypoglycemia, unspecified Coding Level of Care Code Est Pt Level 4 (87518) Complex EM visit Add On G2211 Diagnoses Uncontrolled type 2 diabetes mellitus with hyperglycemia E11.65 Glycemic state: with hyperglycemia termite control service representative (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 insulin Z79.4
--- OUTSIDE RECORDS SUMMARY | 2025-02-23 09:06 | XMS_ITS | Encounter Summary ---
Author Organization [facility] Address [facility] [place] [address] Care Team Providers Care Shop Worker Name Role Phone Kaley Jacobson MD Primary Care Provider Unavailab le Encounter Details Date Type Department Care Team Description 05/02/2017 Transfer Records Medical Records [address] [place] [id number] Abstract, Provider Social History Tobacco Use Types [...] Kaley Jacobson sent to Carlotta Suarez R.N. Railroad Detective. documented in this encounter Plan of Treatment Not on file documented as of this encounter Visit Diagnoses Not on filedocumented in this encounter Care Teams Shop Worker Relationship Specialty Start Date End Date Kaley Jacobson MD PCP - General Internal Medicine 03/11/17 documented as of this encounter
--- OUTSIDE RECORDS SUMMARY | 2025-02-23 09:06 | XMS_ITS | Encounter Summary ---
Author Organization [facility] Address [facility] [place] [address] Care Team Providers Care Psychiatric Aides Teacher Name Role Phone Kaley Jacobson MD Primary Care Provider Unavailab le Encounter Details Date Type Department Care Team Description 03/14/2017 Release of Information Medical Records [address] [place] [id number] Abstract, Provider Social History Tobacco Use Types [...] on filedocumented in this encounter Care Teams Psychiatric Aides Teacher Relationship Specialty Start Date End Date Kaley Jacobson MD PCP - General Internal Medicine 03/11/17 documented as of this encounter
--- OUTSIDE RECORDS SUMMARY | 2025-02-23 09:06 | XMS_ITS | Clinical Summary ---
Author Organization [facility] Address [address] [place] [address] Care Team Providers Care Supervisor Audit Clerks Name Role Phone Kaley Jacobson MD Primary Care Provider Unavailab le Surgical History Surgery Date Site/Laterality Comments TOTAL KNEE ARTHROPLASTY 2009 PROCEDURE: [place] ARTHRP KNE CONDYLE&PLATU MEDIAL&LAT COMPARTMENTS CHOLECYSTECTOMY PROCEDURE: [place] LAPAROSCOPY SURG CHOLECYSTECTOMY SECTION PROCEDURE: HISTORICAL OTHER [...] Continued pain 03/2017, seeking 2nd opinion at [facility] History of CVA (cerebrovascu lar accident) [...] age to complete this topic Care Teams Supervisor Audit Clerks Relationship Specialty Start Date End Date Kaley Jacobson MD PCP - General Internal Medicine 03/11/17
[2025-02-23 09:14] VITALS: BP 116/76; PULSE 69; O2SAT 98; BMI 30.4
[2025-02-23 09:25] LABS: Glucose, Whole Blood 197 mg/dL (60-115)
== END 2025-02-23 09:48 | disposition home or self-care (01) ==
LOC: HO.ENCR 08:39
PROVIDERS: PCP Internal Medicine; Visit Provider Internal Medicine
DX: E11.65 Type 2 diabetes mellitus with hyperglycemia (principal); Z79.4 Long term (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 insulin

== ENCOUNTER → 2025-02-23 08:38 | Outpatient (BNVA) | payer OTHER, SELFPAY | PROVIDERS: PCP Internal Medicine; Visit Provider Internal Medicine | DX: E11.65 Type 2 diabetes mellitus with hyperglycemia (principal); Z79.4 Long term (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 insulin | CPT/HCPCS: 82947; 83036; 99212 ==

== ENCOUNTER 2025-03-22 11:47 | Outpatient (REF) | payer OTHER, SELFPAY ==
--- NOTE | ~2025-03-22 | US_ITS ---
EXAMINATION: US THYROID CLINICAL INFORMATION: Multinodular goiter, nontoxic. COMPARISON: 02/16/2024. 08/10/2020 left mid thyroid nodule biopsy, benign. TECHNIQUE: Linear transducer grayscale and color Doppler examination with attention to the region of the thyroid. FINDINGS: SIZE: Measurements of the thyroid lobes and nodules are given in sagittal, anteroposterior and transverse dimensions respectively. Right Thyroid Lobe: 6.3 x 2.0 x 2.3 cm, volume 14.9 mL. (Previously 13.4 mL). Parenchyma: The gland echotexture is mildly heterogeneous. Thyroid vascularity is normal. Left Thyroid Lobe: 5.8 x 1.8 x 2.3 cm, volume 12.7 mL. (Previously 12.5 mL). Parenchyma: The gland echotexture is mildly heterogeneous. Thyroid vascularity is normal. Isthmus: 0.3 cm in maximum AP dimension. Estimated total number of nodules greater than or equal to 1 cm: 2. 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 Location: Right mid pole. Size: 1.1 x 0.6 x 1.2 cm, volume 0.44 mL. (Previous volume 0.4 mL). Unchanged in size. Nodule characteristics: Composition: Mixed cystic and solid (1). Echogenicity: Hypoechoic (2). Shape: Not taller than wide (0). Margins: Irregular (2). Echogenic Foci: None (0). ACR TI-RADS total points: 5 ACR TI-RADS category: 4 (previously 4) 2. Location: Right mid pole. Size: 0.5 x 0.4 x 0.4 cm, volume 0.04 mL. (Previously 0.04 mL). Unchanged in size. Nodule characteristics: Composition: Solid (2). Echogenicity: Hypoechoic (2). Shape: Not taller than wide (0). Margins: Smooth (0). Echogenic Foci: Peripheral calcifications (2). ACR TI-RADS total points: 6 ACR TI-RADS category: 4 (previously 4) 3. Location: Right mid to lower pole. Size: 0.8 x 0.5 x 0.7 cm, volume 0.14 mL. (Previously 0.08, minimally enlarged) Nodule characteristics: Composition: Mixed cystic and solid (1). Echogenicity: Hypoechoic (2). Shape: Not taller than wide (0). Margins: Smooth (0). Echogenic Foci: None (0). ACR TI-RADS total points: 3 ACR TI-RADS category: 3 (previously characterized as a TR 4) 4. Location: Right lower pole. Size: 0.5 x 0.5 x 0.9 cm, volume 0.12 mL. (Not previously seen.) Nodule characteristics: Composition: Mixed cystic and solid (1). Echogenicity: Very hypoechoic (3). Shape: Not taller than wide (0). Margins: Smooth (0). Echogenic Foci: Punctate echogenic foci (3). ACR TI-RADS total points: 7 ACR TI-RADS category: 5 5. Location: Left Mid pole. Size: 1.5 x 0.5 x 1.1 cm, volume 0.46 mL. (Previously measuring 0.4 mL, minimally enlarged.) Nodule characteristics: Composition: Mixed cystic and solid (1). Echogenicity: Hypoechoic (2). Shape: Not taller than wide (0). Margins: Irregular (2). Echogenic Foci: None (0). ACR TI-RADS total points: 5 ACR TI-RADS category: 4 (previously catheterize as TR category 1) NODES: No lymphadenopathy is seen in the tissue surrounding the thyroid gland. US/US thyroid IMPRESSION: 1. Multinodular goiter as described above. 2. A right mid pole 1.1 cm TR category 4 nodule is essentially unchanged. Follow-up recommended. 3. A left mid pole 1.5 cm TR category 4 nodule has minimally enlarged, and was previously characterized as a TR category 1. This was presumably the previously biopsied benign nodule. 4. There is a new subcentimeter right lower pole TR category 5 nodule, which was not previously described. Follow-up recommended. 5. The remainder of the nodules are all subcentimeter and all stable as described above. No follow-up recommended of these nodules. 6. The intervening thyroid parenchyma is minimally heterogeneous. ACR TI-RADS RECOMMENDATION REFERENCE: Ultrasound-guided fine-needle aspiration, followup ultrasound, no further follow up. * TR1 (0 point) and TR2 (2 points): No FNA or follow up. * TR3 (3 points): FNA if more than or equal to 2.5 cm in maximum dimension, followup ultrasound in 1, 3 and 5 years if 1.5 to 2.4 cm in maximum dimension. * TR4 (4-6 points): FNA if more than or equal to 1.5 cm in maximum dimension, followup ultrasound in 1, 2, 3 and 5 years if 1 to 1.4 cm in maximum dimension. * TR5 (more than or equal to 7 points): FNA if more than or equal to 1 cm in maximum dimension, followup ultrasound every year for 5 years if 0.5 to 0.9 cm in maximum dimension. * TR3, TR4 or TR5 nodules that are below the size threshold for followup receive no follow up. Electronically signed by: Jae Isidro MD 03/22/2025 01:33 PM LINDA LAMAR
== END 2025-03-22 11:48 | disposition home or self-care (01) ==
LOC: HO.US 11:47
PROVIDERS: PCP Internal Medicine; Visit Provider Student in an Organized Health Care Education/Training Program
DX: E04.2 Nontoxic multinodular goiter (principal)
CPT/HCPCS: 76536

== ENCOUNTER → 2025-03-22 12:01 | Outpatient (BNV) | payer OTHER, SELFPAY | PROVIDERS: PCP Internal Medicine; Visit Provider Radiology Diagnostic Radiology | DX: E04.2 Nontoxic multinodular goiter (principal) | CPT/HCPCS: 76536 ==

== ENCOUNTER 2025-04-21 10:33 | Outpatient (AMB) | payer OTHER, SELFPAY ==
--- NOTE | 2025-04-21 10:48 | A.OFFVIS_ITS ---
Vital Signs 3 04/21/25 10:49 Height 5 ft 1 in Weight 158 lb 11.725 oz BMI 30.0 BP 132/82 Blood Pressure Location Rt brachial Position Sitting Pulse 88 Pulse Source Pulse Oximeter Pulse Oximetry (%) 98 Oxygen Delivery Method Room Air Intake Visit Reasons: Multinodular goiter Intake Note: Patient presents here today for Multinodular Goiter follow-up visit: ? Thyroid Ultrasound: Completed on 03/22/2025 L Transplant Coordinator Required: No Transplant Coordinator Services: Transplant Coordinator Offered & Declined (DR Lewis Speak Fluent Sinhala) Transplant Coordinator Name: Donnell Soto, JAN/GAIL SPANJordy Information Interpreted: non-clinical & clinical Accompanied by: Significant Other Allergies latex (LATEX) Allergy (Mild, Verified 02/23/25 08:45) RASH metformin Adverse Reaction (Verified 02/23/25 08:45) Unknown HPI Comments Details: 63-year-old female here today for follow up of multinodular goiter. Last seen by Dr. Izaguirre on 05/17/2024, this is my 1st time seeing this patient. She also follows in our clinic for type [address] John Chavez. This was not addressed today. Last Visit for DM 04/21/2024. Patient has a history of thyroid nodules at least dating back to 2019. She had fine-needle aspiration on 05/06/2019. Right mid pole nodule was a simple cyst, no follicular cells. Left mid pole nodule was consistent with a benign follicular nodule Jackson category 2. Ultrasound from 05/09/2020 showed multiple bilateral thyroid nodules, with a dominant 1.3 cm right mid lobe nodule that was mixed cystic solid with mostly a cystic component. Left superior 2.2 cm hypoechoic nodule along with the other smaller nodules on the left side. FNA 08/10/2020, of the left superior 2.2 cm hypoechoic nodule with benign cytology Jackson category 2. Looks like patient had intermittent difficulty swallowing, underwent GI series upper in March 2021 which did not really show any defect. In 2020 and 2021, patient was noted to have low TSH levels around 0.14 and 0.16 with normal free T4 consistent with subclinical hyperthyroidism. TSI 09/18/2021 were undetectable. Thyroid uptake and scan from 07/26/2021, showed normal radioiodine uptake at 4 and 24 hours. It did show some degree of increased activity in the right lower lateral pole, however this was not correlating with any of the nodules visualized. Subsequently patient has TSH normalized. Most recent thyroid labs 04/14/2024 showed normal TSH of 0.47. Most recent thyroid ultrasound 02/16/2024, I reviewed the images myself showed a dominant right midpole 1.3 cm nodule which is mixed cystic solid, isoechoic, irregular, TR 4 category. This meets criteria for follow up. I am not sure if this was the nodule that was biopsied in 2019 which came back as nondiagnostic. There was also a 1 cm right superior cyst. This is not reported in the ultrasound report. Other subcentimeter right lobe nodules noted. Left mid lobe dominant 1 cm nodule which is reported as new, is a spongiform nodule. Another 0.8 cm solid, isoechoic left superior pole nodule. This does not need follow up, TR 3 category. This might have been the nodule that was biopsied when it was measuring 2.2 cm on the ultrasound in 2020 with benign cytology. However this is hard to compare on previous images. she currently complains of intermittent difficulty swallowing. Does report pressure sensation in neck. But able to finish all meals. No voice changes. Complains of cold intolerance . Reports constipation no diarrhea . Dry skin and hair loss. Weight is stable. No palpitations. No tremors. Patient denies any history of childhood neck radiation. Denies having ever used lithium, amiodarone. She does use hair skin supplements, likley have biotin. Patient denies any family history of thyroid cancer or thyroid disease. History of bariatric surgery 2021 Hystrectomy and B/L salpigooophorectomy at age 36 for suspicion of ovarian cancer?? she is unclear about this history , we dont have records this was in [place]. Used to be on premarin for sometime but then stopped at age 39 Interval history: She reports feeling cold all the time, specially hands and feet She report that she was previously taking Synthroid but it was stopped in 2013 She reports intermittent dyspahgia, no specific relation to food consistency Denies constipation. Not taking any supplement containing biotin Physical exam: General: Well appearing. NAD. Not Cushingoid or Acromegalic Neck/Thyroid: Thyroid not palpable, no nodules. Eyes: No conjunctival injection, not lid lag or proptosis CV: RRR, no murmur. No edema. Resp:Lungs clear to auscultation bilaterally Abdomen: Soft, nontender. nondistended Extremities/Neuro: No weakness or tremor of outstretched hands Laboratory Tests 09/14/24 13:48 TSH 0.19 L Free T4 0.87 Laboratory Tests 03/05/19 01/28/20 08/23/20 13:45 10:16 08:20 Free T4 0.92 0.95 TSH 0.30 L 06/19/21 08/10/21 09/18/21 16:18 08:43 10:50 Free T4 0.87 0.88 0.88 TSH 0.10 L 0.16 L 0.14 L 03/18/22 03/18/22 03/12/23 09:29 09:29 07:22 Free T4 TSH 0.41 0.44 0.47 10/21/23 01/27/24 04/14/24 11:17 10:22 10:59 Free T4 TSH 0.41 0.35 0.47 Thyroid ultrasound 03/22/2025 COMPARISON: 02/16/2024. 08/10/2020 left mid thyroid nodule biopsy, benign. TECHNIQUE: Linear transducer grayscale and color Doppler examination with attention to the region of the thyroid. FINDINGS: SIZE: Measurements of the thyroid lobes and nodules are given in sagittal, anteroposterior and transverse dimensions respectively. Right Thyroid Lobe: 6.3 x 2.0 x 2.3 cm, volume 14.9 mL. (Previously 13.4 mL). Parenchyma: The gland echotexture is mildly heterogeneous. Thyroid vascularity is normal. Left Thyroid Lobe: 5.8 x 1.8 x 2.3 cm, volume 12.7 mL. (Previously 12.5 mL). Parenchyma: The gland echotexture is mildly heterogeneous. Thyroid vascularity is normal. Isthmus: 0.3 cm in maximum AP dimension. Estimated total number of nodules greater than or equal to 1 cm: 2. Transcript Clerk nodules are described as follows: 1. Location: Right mid pole. Size: 1.1 x 0.6 x 1.2 cm, volume 0.44 mL. (Previous volume 0.4 mL). Unchanged in size. Nodule characteristics: Composition: Mixed cystic and solid (1). Echogenicity: Hypoechoic (2). Shape: Not taller than wide (0). Margins: Irregular (2). Echogenic Foci: None (0). ACR TI-RADS total points: 5 ACR TI-RADS category: 4 (previously 4) 2. Location: Right mid pole. Size: 0.5 x 0.4 x 0.4 cm, volume 0.04 mL. (Previously 0.04 mL). Unchanged in size. Nodule characteristics: Composition: Solid (2). Echogenicity: Hypoechoic (2). Shape: Not taller than wide (0). Margins: Smooth (0). Echogenic Foci: Peripheral calcifications (2). ACR TI-RADS total points: 6 ACR TI-RADS category: 4 (previously 4) 3. Location: Right mid to lower pole. Size: 0.8 x 0.5 x 0.7 cm, volume 0.14 mL. (Previously 0.08, minimally enlarged) Nodule characteristics: Composition: Mixed cystic and solid (1). Echogenicity: Hypoechoic (2). Shape: Not taller than wide (0). Margins: Smooth (0). Echogenic Foci: None (0). ACR TI-RADS total points: 3 ACR TI-RADS category: 3 (previously characterized as a TR 4) 4. Location: Right lower pole. Size: 0.5 x 0.5 x 0.9 cm, volume 0.12 mL. (Not previously seen.) Nodule characteristics: Composition: Mixed cystic and solid (1). Echogenicity: Very hypoechoic (3). Shape: Not taller than wide (0). Margins: Smooth (0). Echogenic Foci: Punctate echogenic foci (3). ACR TI-RADS total points: 7 ACR TI-RADS category: 5 5. Location: Left Mid pole. Size: 1.5 x 0.5 x 1.1 cm, volume 0.46 mL. (Previously measuring 0.4 mL, minimally enlarged.) Nodule characteristics: Composition: Mixed cystic and solid (1). Echogenicity: Hypoechoic (2). Shape: Not taller than wide (0). Margins: Irregular (2). Echogenic Foci: None (0). ACR TI-RADS total points: 5 ACR TI-RADS category: 4 (previously catheterize as TR category 1) NODES: No lymphadenopathy is seen in the tissue surrounding the thyroid gland. IMPRESSION: 1. Multinodular goiter as described above. 2. A right mid pole 1.1 cm TR category 4 nodule is essentially unchanged. Follow-up recommended. 3. A left mid pole 1.5 cm TR category 4 nodule has minimally enlarged, and was previously characterized as a TR category 1. This was presumably the previously biopsied benign nodule. 4. There is a new subcentimeter right lower pole TR category 5 nodule, which was not previously described. Follow-up recommended. 5. The remainder of the nodules are all subcentimeter and all stable as described above. No follow-up recommended of these nodules. 6. The intervening thyroid parenchyma is minimally heterogeneous. US THYROID 02/16/24 CLINICAL INFORMATION: History of thyroid nodules. COMPARISON: Ultrasound-guided thyroid biopsy 08/10/2020. Thyroid ultrasound 05/09/2020 and 03/16/2019. TECHNIQUE: Linear transducer grayscale and color Doppler examination with attention to the region of the thyroid. FINDINGS: SIZE: Measurements of the thyroid lobes and nodules are given in sagittal, anteroposterior and transverse dimensions respectively. Right Thyroid Lobe: 6.1 x 1.8 x 2.3 cm, volume 13.4 mL. Previously 6.1 x 2.1 x 2.3 cm, volume 15.4 mL. Parenchyma: The gland echotexture is heterogeneous. Thyroid vascularity is normal. Left Thyroid Lobe: 5.9 x 1.7 x 2.4 cm, volume 12.5 mL. Previously 6.0 x 2.1 x 2.8 cm, volume 17.9 mL. Parenchyma: The gland echotexture is heterogeneous. Thyroid vascularity is normal. Isthmus: 0.4 cm in maximum AP dimension. Previously 0.4 cm. Estimated total number of nodules greater than or equal to 1 cm: 2. Transcript Clerk nodules are described as follows: 1. Location: Right mid pole. Size: 1.1 x 0.6 x 1.3 cm, volume 0.4 mL. Previously: 1.3 x 0.7 x 1.3 cm, volume 0.6 mL. Nodule characteristics: Composition: Solid/almost completely solid (2). Echogenicity: Isoechoic (1). Shape: Not taller than wide (0). Margins: Irregular (2). Echogenic Foci: None (0). ACR TI-RADS total points: 5 Previous: Not documented ACR TI-RADS category: 4 Previous: Not documented Significant change in size (>/= 20% in 2 dimensions and minimal increase of 2 mm or 50% or greater increase in volume): No Change in features: No Change in ACR TI-RADS risk category: Not applicable 2. Location: Right mid pole. Size: 0.5 x 0.4 x 0.4 cm, volume 0.04 mL. Previously: Not documented, new. Nodule characteristics: Composition: Solid (2). Echogenicity: Isoechoic (1). Shape: Not taller than wide (0). Margins: Smooth (0). Echogenic Foci: Peripheral calcifications (2). ACR TI-RADS total points: 5 ACR TI-RADS category: 4 3. Location: Right mid pole. Size: 0.5 x 0.5 x 0.6 cm, volume 0.08 mL. Previously: 0.7 x 0.6 x 0.6 cm, volume 0.1 mL. Nodule characteristics: Composition: Solid/almost completely solid (2). Echogenicity: Isoechoic (1). Shape: Not taller than wide (0). Margins: Irregular (2). Echogenic Foci: None (0). ACR TI-RADS total points: 5 Previous: Not documented ACR TI-RADS category: 4 Previous: Not documented Significant change in size (>/= 20% in 2 dimensions and minimal increase of 2 mm or 50% or greater increase in volume): No Change in features: No Change in ACR TI-RADS risk category: Not applicable 4. Location: Left mid pole. Size: 1.1 x 0.5 x 1.3 cm, volume 0.4 mL. Previously: Not documented, new. Nodule characteristics: Composition: Spongiform (0). ACR TI-RADS total points: 0 ACR TI-RADS category: 1 5. Location: Left mid pole. Size: 0.2 x 0.2 x 0.3 cm, volume 0.005 mL. Previously: Not documented, new. Nodule characteristics: Composition: Solid (2). Echogenicity: Hyperechoic (1). Shape: Not taller than wide (0). Margins: Smooth (0). Echogenic Foci: Punctate echogenic foci (3). ACR TI-RADS total points: 6 ACR TI-RADS category: 4 NODES: No lymphadenopathy is seen in the tissue surrounding the thyroid gland. US/US thyroid IMPRESSION: Multinodular goiter. Only the 1.3 cm right mid nodule warrants follow-up in one year. None of the nodules meet criteria for biopsy. THYROID UPTAKE AND SCAN 07/26/21 CLINICAL INFORMATION: Nontoxic multinodular goiter. COMPARISON: No previous radionuclide thyroid scan is available for comparison. Thyroid ultrasound dated 05/09/2020 is available for comparison. TECHNIQUE: Following the oral administration of 271 microcuries of I-123 sodium iodide, thyroid uptake was performed and expressed as a percentage of the administrated dose. Gamma scintillation camera images of the thyroid in the anterior and right and left anterior oblique views were obtained using a pinhole collimator following the administration of 10 mCi Tc-99m pertechnetate. FINDINGS: The uptake is 2.8% at 4 hours and 8.8% at 24 hours (Normal radioiodine uptake at 24 hours is 10% to 30%). The radioiodine uptake is low. The radiopertechnetate thyroid scintigram shows the thyroid gland to be mildly enlarged, approximately 1 1/2 times normal in size. There is heterogeneous distribution of activity within the gland. There is a focus of moderately increased activity present laterally in the lower pole of the right lobe. There is some additional heterogeneity bilaterally but no additional discrete focal abnormalities are present. A single anterior radioiodine image obtained at the time of the 24-hour uptake measurement is similar to the radio pertechnetate image, but does not delineate detail within the gland as well. The thyroid ultrasound study dated 05/09/2020 showed multiple nodules bilaterally most of which are subcentimeter in size and are not visualized on this radionuclide scan. A focus of increased activity in the lower pole of the right lobe does not appear to definitely correspond to any of the nodules visualized on the ultrasound study. It is in the region of the lower pole nodule visualized on the ultrasound, but that nodule measured only 0.7 x 0.6 x 0.6 cm, and in less that nodule enlarged since the 2020 study, it was too small to likely be resolved on these radionuclide images. NM/NM thyroid w uptake IMPRESSION: Mildly enlarged thyroid gland with a single functioning (hot) nodule visualized laterally in the lower pole of the right lobe. Double additional subcentimeter nodules visualized on the prior 2020 thyroid ultrasound study are not visualized on this radionuclide scan, but are likely below the resolution of this radionuclide technique. The radioiodine uptake is mildly depressed. EXAMINATION: XR GI SERIES 03/09/21 CLINICAL INFORMATION: Obesity COMPARISON: None TECHNIQUE: Fluoroscopic assessment of the upper GI tract was performed in various upright and supine/prone obliquities utilizing thin and thick high density barium contrast material and effervescent granules. FINDINGS: Normal oral bolus control and transfer. Normal posterior tilt of the epiglottis. The esophagus was normal in course, caliber, and contour. There was normal distensibility with no fixed segment of narrowing. No focal mucosal abnormality was identified. No significant esophageal dysmotility was observed. Contrast passed freely across the gastroesophageal junction into the stomach. No significant hiatal hernia. There was normal distensibility of the stomach with no focal abnormality identified. There was prompt gastric emptying into the duodenum which demonstrated a normal appearance. Mild gastroesophageal reflux was observed. FLUOROSCOPY TIME: 1.5 minutes DOSE AREA PRODUCT: 22.325 Gy-cm2 (porter-centimeter squared) FL/FL upper GI series IMPRESSION: Mild gastroesophageal reflux noted. Otherwise normal upper GI examination. Date of Service: 05/09/20 US THYROID Right Thyroid Lobe: 6.1 x 2.1 x 2.3 cm, volume 15.4 mL. Previously 6.2 x 2.4 x 2.4 cm, volume 18.7 mL. Parenchyma: The gland echotexture is homogeneous. Thyroid vascularity is normal. Left Thyroid Lobe: 6.0 x 2.1 x 2.8 cm, volume 17.9 mL. Previously 6.2 x 1.8 x 2.6 cm, volume 15.2 mL. Parenchyma: The gland echotexture is homogeneous. Thyroid vascularity is normal. Isthmus: 0.4 cm in maximum AP dimension. Previously 0.3 cm. RIGHT THYROID LOBE: There are 4 nodules seen. 1. Location: Upper Size: 0.6 x 0.3 x 0.5 cm. Previous: 0.6 x 0.3 x 0.5 cm. Nodule characteristics: Hypoechoic, smoothly marginated with no intranodular flow, likely simple cyst. 2. Location: Mid Size: 1.3 x 0.7 x 1.3 cm. Previous: 1.4 x 1.0 x 1.6 cm. Nodule characteristics: Hypoechoic, smoothly marginated with intranodular flow, likely complex cyst. 3. Location: Mid Size: 1.0 x 0.9 x 0.9 cm. Previous: 1.5 x 1.2 x 1.7 cm. Nodule characteristics: Hypoechoic, irregular margins with no intranodular flow. 4. Location: Lower Size: 0.7 x 0.6 x 0.6 cm. Previous: 0.6 x 0.5 x 0.6 cm. Nodule characteristics: Heterogenous, irregular margins and no intranodular flow. ISTHMUS: No nodules. LEFT THYROID LOBE: There are 4 nodules seen. 1. Location: Upper Size: 0.8 x 0.5 x 0.5 cm. Previous: 1.0 x 0.5 x 0.7 cm. Nodule characteristics: Heterogeneous, irregular margins with no calcification and no intranodular flow. 2. Location: Upper Size: 2.2 x 1.0 x 1.8 cm. Previous: 1.4 x 0.8 x 1.2 cm. Nodule characteristics: Hypoechoic irregular margins with intranodular flow. 3. Location: Upper Size: 1.0 x 0.5 x 0.8 cm. Previous: None Nodule characteristics: Hypoechoic, irregular shaped with macrocalcifications and intranodular flow. 4. Location: Mid Size: 0.4 x 0.3 x 0.4 cm. Previous: None Nodule characteristics: Hypoechoic, irregular shaped with no intranodular flow. NODES: No lymphadenopathy is seen in the tissue surrounding the thyroid gland. [facility], [facility] Medical History Anxiety Depression GERD (gastroesophageal reflux disease) COVID-19 vaccine series completed Tachycardia Toxic multinodul goiter Chronic renal insufficiency Nephrolithiasis Cyst, kidney, acquired Diabetic neuropathy BMI 34.0-34.9,adult BMI 35.0-35.9,adult BMI 36.0-36.9,adult Pre-op evaluation B12 deficiency Obesity (BMI 30-39.9) Non-toxic multinodular goiter Dyslipidemia Diabetic 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 with type 2 diabetes mellitus USP (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 insulin Distal radius fracture, right HTN (hypertension) Chronic kidney disease Diabetes type 2, uncontrolled Surgical History History of abdominoplasty History of surgery S/P fine needle aspiration S/P laparoscopic sleeve gastrectomy History of esophagogastroduodenoscopy (EGD) H/O colonoscopy Hx of biopsy History of partial hysterectomy History of total right knee replacement History of total left knee replacement (~2010) Hx of cholecystectomy History of section History of carpal tunnel release (~2017) Family History Father Hypertension Diabetes History of kidney cancer Mother Diabetes Hypertension Heart disease Brother Hypertension Diabetes Brother No problems noted. Son Hypertension Prediabetes Heart disease Daughter Prediabetes Social History Household Members: Spouse Housing: Apartment Are you a primary women's health care nurse practitioner to a significant other at home: No Do you presently have visiting nurse or other home services: No Alcohol intake: never Patient Tobacco Use Status: Never used Tobacco service: No Current occupational status: retired Current occupation: right hand dominant Physical Exam Vital Signs: Last Vital Signs Pulse 88 04/21/25 10:49 BP 132/82 04/21/25 10:49 Pulse Ox 98 04/21/25 10:49 Oxygen Delivery Method Room Air 04/21/25 10:49 BMI result Body Mass Index 30.0 Assessment & Plan Assessment & Plan (1) Non-toxic multinodular goiter: Code(s): E04.2 - Nontoxic multinodular goiter Category: Medical Plan: 63-year-old female with no personal history of head or neck radiation, with no family history of thyroid cancer coming in today for follow up of nontoxic multinodular goiter. Patient has a history of thyroid nodules at least dating back to 2019. She had fine-needle aspiration on 05/06/2019. Right mid pole nodule was a simple cyst, no follicular cells. Left mid pole nodule was consistent with a benign follicular nodule Jackson category 2. Ultrasound from 05/09/2020 showed multiple bilateral thyroid nodules, with a dominant 1.3 cm right mid lobe nodule that was mixed cystic solid with mostly a cystic component. Left superior 2.2 cm hypoechoic nodule along with the other smaller nodules on the left side. FNA 08/10/2020, of the left superior 2.2 cm hypoechoic nodule with benign cytology Jackson category 2. Looks like patient had intermittent difficulty swallowing, underwent GI series upper in March 2021 which did not really show any defect. Most recent thyroid ultrasound 02/16/2024, showed a dominant right midpole 1.3 cm nodule which is mixed cystic solid, isoechoic, irregular, TR 4 category. This meets criteria for follow up. I am not sure if this was the nodule that was biopsied in 2019 which came back as nondiagnostic. There was also a 1 cm right superior cyst. This is not reported in the ultrasound report. Other subcentimeter right lobe nodules noted. Left mid lobe dominant 1 cm nodule which is reported as new, is a spongiform nodule. Another 0.8 cm solid, isoechoic left superior pole nodule. This does not need follow up, TR 3 category. This might have been the nodule that was biopsied when it was measuring 2.2 cm on the ultrasound in 2020 with benign cytology. However this is hard to compare on previous images. Left mid pole nodule has not significantly increase, but has it has worrisome characteristics (irregular and hypoechoic). After discussing with the patient, she agreed to undergo a new biopsy. The rest of the nodules have not significantly changed in size or volume or do not meet criteria for FNA due to size. We will schedule the patient for FNA Repeat US in 6 months. Follow up in 6 months (2) Subclinical hyperthyroidism: Code(s): E05.90 - Thyrotoxicosis, unspecified without thyrotoxic crisis or storm Category: Medical Plan: Patient reports that she was previously taking Synth[place] in [place] due to hypothyroidism, but in 2013, [place] and after a blood work is was deemed that she did not need it, so it was stopped. In 2020 and 2021, patient was noted to have low TSH levels around 0.14 and 0.16 with normal free T4 consistent with subclinical hyperthyroidism. TSI 09/18/2021 were undetectable. Thyroid uptake and scan from 07/26/2021, showed normal radioiodine uptake at 4 and 24 hours. It did show some degree of increased activity in the right lower lateral pole, however this was not correlating with any of the nodules visualized. Subsequently patient has TSH normalized. 04/14/2024 showed normal TSH of 0.47. Most recent labs 09/14/24 showed TSH 0.19, FT4 0.87. She does not have symptoms concerning for hyperthyoidism. I would measure T3 to help clarify her status. She does not take biotin. Plan Repeat TSH, FT4 and T3 Plan I spent 30 minutes in reviewing the record, seeing the patient and documenting in the medical record. Orders: Orders 2 T4 Thyroxine Today E05.90 - Thyrotoxicosis, unspecified without thyrotoxic crisis or storm US biopsy thyroid Today E05.20 - Thyrotoxicosis with toxic multinodular goiter without thyrotoxic crisis or storm TSH reflex Free T4 Today E05.90 - Thyrotoxicosis, unspecified without thyrotoxic crisis or storm Triiodothyronine T3 Total Today E05.90 - Thyrotoxicosis, unspecified without thyrotoxic crisis or storm US thyroid 5 Months E04.2 - Nontoxic multinodular goiter Coding Level of Care Code Est Pt Level 4 (23517) Add On Problem Visit Only Diagnoses Non-toxic multinodular goiter E04.2 Subclinical hyperthyroidism E05.90
[2025-04-21 10:49] VITALS: BP 132/82; PULSE 88; O2SAT 98
--- OUTSIDE RECORDS SUMMARY | 2025-04-21 13:17 | XMS_ITS | Encounter Summary ---
Author Organization [facility] Address [address] [place] [address] Phone Care Team Providers Care Social Welfare Administrator Name Role Phone Ashkan Jacobson MD Primary Care Provider Encounter Details Date Type Department Care Team (Late st Contact Info) Description 12/19/2023 Documentation Only [facility] [place], [address] [place] [address] Xochilt Crawford [place] [address] [place] [address] Social History Tobacco Use [...] on filedocumented in this encounter Care Teams Social Welfare Administrator Relationship Specialty Start Date End Date Ashkan Jacobson MD [address] [place] [address] 201 [place], [place] PCP - General 03/09/19 documented as of this encounter
--- OUTSIDE RECORDS SUMMARY | 2025-04-21 13:17 | XMS_ITS | Encounter Summary ---
Author Organization [facility] Address [address] [place] [address] Phone Care Team Providers Care Gis Software Engineer Name Role Phone Ashkan Jacobson MD Primary Care Provider [phone] Encounter Details Date Type Department Care Team (Late st Contact Info) Description 04/04/2022 Documentation Only [facility] [place], [address] [place] [address] Macy Giraldo PA Social History [...] on filedocumented in this encounter Care Teams Gis Software Engineer Relationship Specialty Start Date End Date Ashkan Jacobson MD [address] [place] [address] 201 [place], [place] PCP - General 03/09/19 documented as of this encounter
--- OUTSIDE RECORDS SUMMARY | 2025-04-21 13:17 | XMS_ITS | Encounter Summary ---
Author Organization [facility] Address [address] [place] [address] Phone Care Team Providers Care Council On Aging Director Name Role Phone Ashkan Jacobson MD Primary Care Provider [phone] Encounter Details Date Type Department Care Team (Late st Contact Info) Description 01/06/2024 Documentation Only [facility] [place], [address] [place] [address] Charlotte Mehta [address] [place] [address] Social History Tobacco Use Types [...] on filedocumented in this encounter Care Teams Council On Aging Director Relationship Specialty Start Date End Date Ashkan Jacobson MD [address] [place] [address] 201 [place], [place] PCP - General 03/09/19 documented as of this encounter
--- OUTSIDE RECORDS SUMMARY | 2025-04-21 13:17 | XMS_ITS | Encounter Summary ---
Author Organization [facility] Address [address] [place] [address] Phone Care Team Providers Care Citrix Architect Name Role Phone Ashkan Jacobson MD Primary Care Provider [phone] Encounter Details Date Type Department Care Team (Late st Contact Info) Description 09/24/2022 Documentation Only [facility] [place], [address] [place] [address] Godfrey Marcum MD [address] [facility] [place] [address] Social History Tobacco Use [...] on filedocumented in this encounter Care Teams Citrix Architect Relationship Specialty Start Date End Date Ashkan Jacobson MD [address] [place] [address] 201 [place], [place] PCP - General 03/09/19 documented as of this encounter
--- OUTSIDE RECORDS SUMMARY | 2025-04-21 13:17 | XMS_ITS | Clinical Summary ---
Author Organization [facility] Address [address] [place] [address] Care Team Providers Care Client Strategist Name Role Phone Kaley Jacobson MD Primary Care Provider Unavailab le Surgical History Surgery Date Site/Laterality Comments TOTAL KNEE ARTHROPLASTY 2009 PROCEDURE: TX ARTHRP KNE CONDYLE&PLATU MEDIAL&LAT COMPARTMENTS CHOLECYSTECTOMY PROCEDURE: [place] LAPAROSCOPY SURG CHOLECYSTECTOMY SECTION PROCEDURE: HISTORICAL OTHER [...] Continued pain 03/2017, seeking 2nd opinion at [facility] History of CVA (cerebrovascu lar accident) 06/06/2017 [...] Last Done Comments Breast Cancer Screening 1961 DTaP,Tdap,and Td Vaccines (1 - Tdap) 1980 Cervical Cancer Screening: P ap Smear 1982 Pneumococcal Vaccine: 50+ Ye ars (1 of 1 - PCV) 2011 Zoster Vaccines (1 of 2) 2011 Depression Screening 05/05/2024 COVID-19 Vaccine ( - 2024-2 6 season) 2025 Influenza Vaccine (#1) 2025 RSV Immunization Adult Patie nts (1 - 1-dose 75+ series) 2036 HIB Vaccines Aged Out No longer eligi [...] age to complete this topic Care Teams Client Strategist Relationship Specialty Start Date End Date Kaley Jacobson MD PCP - General Internal Medicine 03/11/17
--- OUTSIDE RECORDS SUMMARY | 2025-04-21 13:17 | XMS_ITS | Encounter Summary ---
Author Organization [facility] Address [address] [place] [address] Phone Care Team Providers Care Game Designer/Creative Director Name Role Phone Ashkan Jacobson MD Primary Care Provider [phone] Encounter Details Date Type Department Care Team (Late st Contact Info) Description 06/19/2021 Documentation Only [facility] [place], [address] [place] [address] Macy Giraldo PA Social History [...] on filedocumented in this encounter Care Teams Game Designer/Creative Director Relationship Specialty Start Date End Date Ashkan Jacobson MD [address] [place] [address] 201 [place], [place] PCP - General 03/09/19 documented as of this encounter
--- OUTSIDE RECORDS SUMMARY | 2025-04-21 13:17 | XMS_ITS | Clinical Summary ---
Author Organization [facility] [place], Address [address] [place] [address] [place] [address] Phone Care Team Providers Care Amphibious Operations Officer Name Role Phone Ashkan Jacobson MD Primary Care Provider Allergies Active Allergy Reactions Criticality Noted Date [...] AM EDT) Hemoglobin A1C 6.7(H) (4.0-5.6) % [facility] Comment: MONITORING: In known diabetic patients, hemoglobin A1c targets should be discussed with health care provider. DIAGNOSTIC USE: The [place] Diabetes Association (ADA) and the World Health [...] Supplement 1 Testing performed or reported by [facility], a Service of [facility], [address] [place] [address] Familia Britton MD, Altitude Chamber Technician [facility]# [id number] Blood specimen (specimen) Venous blood / Unknown 02/05/2023 10:48 AM EDT 02/05/2023 10:49 AM EDT Godfrey Marcum MD LAB BLOOD ORDERABLES Final Re sult [facility] from Last 3 Months or Most Recently Relevant to Health Maintenance Insurance [facility] Care Dual SNP ([id number]) [place] [id number] [place] [id number] Care Teams Amphibious Operations Officer Relationship Specialty Start Date End Date Ashkan Jacobson MD [address] [place] [address] PCP - General 03/09/19
--- OUTSIDE RECORDS SUMMARY | 2025-04-21 13:17 | XMS_ITS | Encounter Summary ---
Author Organization [facility] Address [address] [place] [address] Phone Care Team Providers Care Technical Engineer Name Role Phone Ashkan Jacobson MD Primary Care Provider [phone] Encounter Details Date Type Department Care Team (Late st Contact Info) Description 02/04/2024 Documentation Only [facility] [place], [address] [place] [address] [address] [place] [address] [place] [address] Social History Tobacco Use Types [...] filedocumented in this encounter Care Teams Technical Engineer Relationship Specialty Start Date End Date Ashkan Jacobson MD [address] [place] [address] 201 [place], [place] PCP - General 03/09/19 documented as of this encounter
--- OUTSIDE RECORDS SUMMARY | 2025-04-21 13:17 | XMS_ITS | Encounter Summary ---
Author Organization [facility] Address [address] [place] [address] Phone Care Team Providers Care Event Specialist Product Demonstrator Name Role Phone Ashkan Jacobson MD Primary Care Provider [phone] Encounter Details Date Type Department Care Team (Late st Contact Info) Description 07/30/2023 Documentation Only [facility] [place], [address] [place] [address] Xochilt Crawford [place] [address] [place] [address] Social History Tobacco Use Types [...] on filedocumented in this encounter Care Teams Event Specialist Product Demonstrator Relationship Specialty Start Date End Date Ashkan Jacobson MD [address] [place] [address] 201 [place], [place] PCP - General 03/09/19 documented as of this encounter
--- OUTSIDE RECORDS SUMMARY | 2025-04-21 13:17 | XMS_ITS | Encounter Summary ---
Author Organization [facility] Address [address] [place] [address] Phone Care Team Providers Care Key Account Director Name Role Phone Ashkan Jacobson MD Primary Care Provider [phone] Encounter Details Date Type Department Care Team (Late st Contact Info) Description 08/21/2023 Documentation Only [facility] [place], [address] [place] [address] Xochilt Crawford [place] [address] [place] [address] Social History Tobacco Use Types [...] on filedocumented in this encounter Care Teams Key Account Director Relationship Specialty Start Date End Date Ashkan Jacobson MD [address] [place] [address] [address] [place], [place] PCP - General 03/09/19 documented as of this encounter
--- OUTSIDE RECORDS SUMMARY | 2025-04-21 13:17 | XMS_ITS | Encounter Summary ---
Author Organization [facility] Address [address] [place] [address] Phone Care Team Providers Care Agricultural Research Technician Name Role Phone Ashkan Jacobson MD Primary Care Provider [phone] Encounter Details Date Type Department Care Team (Late st Contact Info) Description 07/21/2023 Documentation Only [facility] [place], [address] [place] [address] Xochilt Crawford [place] [address] [place] [address] Social History Tobacco Use Types [...] on filedocumented in this encounter Care Teams Agricultural Research Technician Relationship Specialty Start Date End Date Ashkan Jacobson MD [address] [place] [address] [address] [place], [place] PCP - General 03/09/19 documented as of this encounter
--- OUTSIDE RECORDS SUMMARY | 2025-04-21 13:17 | XMS_ITS | Encounter Summary ---
Author Organization [facility] Address [address] [place] [address] Phone Care Team Providers Care Tool Inspector Name Role Phone Ashkan Jacobson MD Primary Care Provider [phone] Encounter Details Date Type Department Care Team (Late st Contact Info) Description 09/18/2021 Documentation Only [facility] [place], [address] [place] [address] Macy Giraldo PA Social [...] on filedocumented in this encounter Care Teams Tool Inspector Relationship Specialty Start Date End Date Ashkan Jacobson MD [address] [place] [address] [address] [place], [place] PCP - General 03/09/19 documented as of this encounter
--- OUTSIDE RECORDS SUMMARY | 2025-04-21 13:17 | XMS_ITS | Encounter Summary ---
Author Organization [facility] Address [address] [place] [address] Phone Care Team Providers Care Rug Receiving Clerk Name Role Phone Ashkan Jacobson MD Primary Care Provider [phone] Encounter Details Date Type Department Care Team (Late st Contact Info) Description 03/22/2021 Documentation Only [facility] [place], [address] [place] [address] Macy Giraldo PA Social History [...] on filedocumented in this encounter Care Teams Rug Receiving Clerk Relationship Specialty Start Date End Date Ashkan Jacobson MD [address] [place] [address] 201 [place], [place] PCP - General 03/09/19 documented as of this encounter
--- OUTSIDE RECORDS SUMMARY | 2025-04-21 13:17 | XMS_ITS | Encounter Summary ---
Author Organization [facility] Address [address] [address] Care Team Providers Care Windows Admin Name Role Phone Ginette Fortune MD Primary Care Provide r Reason for Referral * Consultation (Routine) - Closed Specialty Diagnoses / Procedures Referred By Eula winston Referred To Contact Orthopaedic Surgery Diagnoses Acute pain of left knee Drea Monroy MD [address] [place] [address] Phone: tel: fax: [facility] [address] [place] [address] [place] [address] Phone: tel: fax: Referral ID Status Reason Start Date Expiration Date V isits Requested Visits Authorized [id number] Closed Specialty Services Required 11/14/2023 11/13/2024 1 1 Encounter Details Date Type Department Care Team (Late st Contact Info) Description 11/14/2023 Orders Only [facility] PEDS [address] [place], [place] [phone] Drea Monroy MD [address] [place], [place] [phone] Acute pain of left knee (Primary Dx) [...] Care Team (Late st Contact Info) Description 06/28/2025 10:45 AM EST Office Visit [facility] MEDICINE [address] [place] [address] Ginette Fortune MD [address] [place] [address] Scheduled Referrals Name Type Priority Associated Diagnoses Order Schedule Referral to Orthopaedic Surgery Outpatient Referral Routine Acute pain of left knee Expected: 11/14/2023 (Approximate), Expires: 11/13/2024 documented as of this encounter Visit Diagnoses Diagnosis Acute pain of left knee- Primary documented in this encounter Additional Health Concerns Assessment Noted Time PHQ-9 Depression Total Score: 0 06/18/20 24 10:02 AM EDT documented as of this encounter Care Teams Windows Admin Relationship Specialty Start Date End Date Ginette Fortune MD [address] [place] [address] PCP - General Internal Medicine 10/27/23 documented as of this encounter
--- OUTSIDE RECORDS SUMMARY | 2025-04-21 13:17 | XMS_ITS | Encounter Summary ---
Author Organization [facility] Address [address] [place] [address] Phone Care Team Providers Care Cleaning And Washing Equipment Operator Name Role Phone Ashkan Jacobson MD Primary Care Provider [phone] Encounter Details Date Type Department Care Team (Late st Contact Info) Description 09/28/2021 Documentation Only [facility] [place], [address] [place] [address] Macy Giraldo PA Social History [...] on filedocumented in this encounter Care Teams Cleaning And Washing Equipment Operator Relationship Specialty Start Date End Date Ashkan Jacobson MD [address] [place] [address] [address] [place], [place] PCP - General 03/09/19 documented as of this encounter
--- OUTSIDE RECORDS SUMMARY | 2025-04-21 13:17 | XMS_ITS | Encounter Summary ---
Author Organization [facility] Address [address] [place] [address] Phone Care Team Providers Care Promotions Team Leader Name Role Phone Ashkan Jacobson MD Primary Care Provider [phone] Encounter Details Date Type Department Care Team (Late st Contact Info) Description 12/18/2021 Documentation Only [facility] [place], [address] [place] [address] Macy Giraldo PA Social History [...] on filedocumented in this encounter Care Teams Promotions Team Leader Relationship Specialty Start Date End Date Ashkan Jacobson MD [address] [place] [address] 201 [place], [place] PCP - General 03/09/19 documented as of this encounter
--- OUTSIDE RECORDS SUMMARY | 2025-04-21 13:17 | XMS_ITS | Encounter Summary ---
Author Organization [facility] Address [address] [place] [address] Phone Care Team Providers Care Lang Path Therapist Name Role Phone Ashakn Jacobson MD Primary Care Provider [phone] Encounter Details Date Type Department Care Team (Late st Contact Info) Description 08/28/2023 Documentation Only [facility] [place], [address] [place] [address] Xochilt Crawford [place] [address] [place] [address] Social History Tobacco Use Types [...] on filedocumented in this encounter Care Teams Lang Path Therapist Relationship Specialty Start Date End Date Ashkan Jacobson MD [address] [place] [address] 201 [place], [place] PCP - General 03/09/19 documented as of this encounter
--- OUTSIDE RECORDS SUMMARY | 2025-04-21 13:17 | XMS_ITS | Encounter Summary ---
Author Organization [facility] Address [address] [place] [address] Phone Care Team Providers Care Magneto Specialist Name Role Phone Ashkan Jacobson MD Primary Care Provider [phone] Encounter Details Date Type Department Care Team (Late st Contact Info) Description 07/23/2023 Documentation Only [facility] [place], [address] [place] [address] Xochilt Crawford [place] [address] [place] [address] Social History Tobacco Use Types [...] on filedocumented in this encounter Care Teams Magneto Specialist Relationship Specialty Start Date End Date Ashkan Jacobson MD [address] [place] [address] 201 [place], [place] PCP - General 03/09/19 documented as of this encounter
--- OUTSIDE RECORDS SUMMARY | 2025-04-21 13:17 | XMS_ITS | Encounter Summary ---
Author Organization [facility] Address [address] [facility] 7[address] [place] [address] Care Team Providers Care Cook Night Name Role Phone Ginette Fortune MD Primary Care Provide r Reason for Visit * Reason Onset Date Comments Hospital Follow-up 05/14/2024 Encounter Details Date Type Department Care Team ([facility] Contact Info) Description 05/14/2024 Telephone [facility] MEDICINE [address] [place] [address] Ginette Fortune MD [address] [place] [address] Hospital Follow-up Social History Tobacco Use Types [...] from pt requesting a HDF appt. Hospital: [facility] Date of admission: 05/09/2024 Discharge date: 05/13/2024 Diagnosed: Kidney problems *Send message to [place] Clinical Care Coordinators documented in this encounter Plan of Treatment Upcoming Encounters Date Type Department Care Team (Late st Contact Info) Description 06/28/2025 10:45 AM EST Office Visit [facility] MEDICINE [address] [place] [address] Ginette Fortune MD [address] [place] [address] documented as of this encounter Visit Diagnoses Not on filedocumented in this encounter Additional Health Concerns Assessment Noted Time PHQ-9 Depression Total Score: 0 10/21/19 10:02 AM EDT documented as of this encounter Care Teams Cook Night Relationship Specialty Start Date End Date Ginette Fortune MD [address] [place] [address] PCP - General Internal Medicine 10/27/23 documented as of this encounter
--- OUTSIDE RECORDS SUMMARY | 2025-04-21 13:17 | XMS_ITS | Encounter Summary ---
Author Organization [facility] Address [address] [place] [address] Phone Care Team Providers Care Farmworker Chicken Farm Name Role Phone Ashkan Jacobson MD Primary Care Provider [phone] Encounter Details Date Type Department Care Team (Late st Contact Info) Description 08/04/2023 Documentation Only [facility] [place], [address] [place] [address] Xochilt Crawford [place] [address] [place] [address] Social History Tobacco Use Types [...] on filedocumented in this encounter Care Teams Farmworker Chicken Farm Relationship Specialty Start Date End Date Ashkan Jacobson MD [address] [place] [address] 201 [place], [place] PCP - General 03/09/19 documented as of this encounter
--- OUTSIDE RECORDS SUMMARY | 2025-04-21 13:17 | XMS_ITS | Clinical Summary ---
Author Organization [employer] Address [address] [place] [address] Care Team Providers Care Die Repairer Forging Name Role Phone Ginette Fortune MD Primary Care Provide r Allergies Active Allergy Reactions Criticality Noted Date Comments Latex Rash,Unknown Low 05/26/2019 Medications amLODIPine (Norvasc) 10 MG tabletIndications :Primary hypertension Take 1 tablet (10 mg) by mouth Once per day. 90 tablet 3 4 Active lisinopril 40 MG tabletIndications :Primary hypertension Take 1 tablet (40 mg) by mouth Once per day. 90 tablet 3 4 Active Diclofenac Sodium 1 % gelIndications:Ac telida pain of left knee To apply to the affected area 3 times a day 100 g 4 Active Continuous Glucose Sensor (FreeStyle Jame 2 Sensor) misc Apply 1 sensor every 14 days 2 each 11 4 Active Blood Pressure Monitoring (Blood Pressure Cuff) miscIndications:P rimary hypertension 1 each Once daily. 1 each 4 Active clonazePAM (KlonoPIN) 0.5 MG tablet Take 1-2 tablets by mouth if needed each day for anxiety. 4 Active Continuous Glucose Bituminous Paving Machine Operator (FreeStyle Jame 2 Atalissa) device 4 Active docusate sodium (Colace) 100 [...] if needed at bedtime for sleep. Active hydroCHLOROthiazi de 12.5 MG tabletIndications :Resistant hypertension TAKE 1 TABLET BY MOUTH EVERY DAY 30 tablet 2 5 Active Active Problems Problem Noted Date Diagnosed Date Dry skin dermatitis 03/22/2025 Irritable bowel syndrome wit h both constipation and diarrhea 12/16/2024 Chronic elbow pain, right 09/13/2024 Assessment & [...] Type 2 diabetes mellitus, [facility] long-term current use of insulin 10/21/2023 Assessment & Plan (12/16/2024 3:24 PM EDT): Diabetes is: not controlled - Lab Results Component Value Date HGBA1C 7.5 (A) 12/16/2024 HGBA1C 6.6 (A) 08/18/2024 HGBA1C 6.5 (A) 04/14/2024 - Lab Results Component Value Date CREATININE 1.23 09/14/2024 -Changes: none - Diabetic eye exam:up to date - Diabetic foot exam:pending - Continue lifestyle modifications - Continue current medications F/u with endocrinology Assessment & Plan (09/13/2024 1:11 PM EDT): [...] weight management Griffin Cuellar NP (located on [address] [place] [address] phone [phone]) Diabetes is: controlled - Lab Results Component [...] months Primary hypertension 10/21/2023 Assessment & Plan (12/16/2024 3:23 PM EDT): I advise not to miss any dose of her blood pressure medication - Aerobic exercise to reduce BP. Initial [...] consulting health care provider Assessment & Plan (10/21/2023 12:08 PM EDT): [...] psychiatrist Keiko Philippe located on [address] [place] [address] phone [phone] it is being prescribed for her trazodone, [...] Encounters Date Type Department Care Team Description 03/22/2025 9:15 AM EST Office Visit [facility] [address] [place] [phone] Ginette Fortune MD Type 2 diabetes mellitus with stage 3 chronic kidney disease, without long-term current use of insulin, unspecified whether stage 3a or 3b CKD (HCC); Dry skin dermatitis; Encounter for immunization; Dietary counseling; Exercise counseling 03/22/2025 Travel 03/21/2025 Telephone [facility] [address] [place] [phone] Ginette Fortune MD Chart Prep 03/15/2025 Patient Outreach [address] [address] Ginette Fortune MD Pre-visit Planning ((PVP screening completed, no concerns)) 02/23/2025 Orders Only GENERIC EXTERNAL DATA DEPARTMENT Provider, Generic External Data 02/04/[address] [facility] [address] [place] [address] Ginette Fortune MD Resistant hypertension from Last 3 Months Immunizations Immunization Administration Dates Next Due Influenza Injectable Quadriv alant Preservative Free IIV4 MDCK 02/05/2022 Influenza injectable quadriv alent preservative free 01/30/2023,01/24/2020 Influenza, IIV3, injectable 01/30/2023,1 ,01/24/2020,2015,02/04/2015 Influenza, seasonal, injecta ble, preservative free 03/22/2025,01/27/2024,04/21/2019,2015,02/04/2015 Pneumococcal Conjugate PCV 20 01/27/2024 RSV Bivalent [...] housing situation today? I have abby pina 12/07/[address] you li ve. Do you have problems with any of the following? None of the above 12/07/2024 Food Insecurity Answer Date Recorded Within the past 12 months, y ou worried that your food would run out before you got money to buy more: Never True 12/07/2024 Within the past 12 months,th e food you bought just didn't last and you didn't have enough money to get more: Never True 09/2024 Transportation Answer Date Recorded In the past 12 months, has l ack of transportation kept you from medical appts, meetings, work or from getting things needed for daily living? No 12/07/2024 Utilities Answer Date Recorded In the past 12 months, has t he electric, gas, oil or water company threatened to shut off services in your home? No 12/07/2024 Depression Answer Date Recorded Patient Health Questionnaire-2 Score 0 10/21/2023 Internet Access Answer Date Recorded Internet Access Q1 Yes 12/07/2024 Internet Access Q2 Not on file 12/07/2024 Comments Unknown Sex and Gender Information Value Date Recorded Sex Assigned at Female 07/16/2023 3:21 PM EDT Legal Sex Female 3:20 PM EDT Gender Identity Female 07/16/2023 3:21 PM EDT Sexual Orientation Don't know 07/16/2023 3: 21 PM EDT Last Filed Vital Signs Vital Sign Reading Time Taken Comments Blood Pressure 140/90 03/22/2025 9:05 AM EST Pulse 80 03/22/2025 9:05 AM EST Temperature 36.6 C (97.9 F) 03/22/2025 9:05 AM EST Respiratory Rate 22 03/22/2025 9:05 AM EST Oxygen Saturation 97% 03/22/2025 9:05 AM EST Inhaled Oxygen Concentration - - Weight 74 kg (163 lb 3.2 oz) 03/22/2025 9:05 AM EST Height 154.9 cm (5' 1 ) 03/22/2025 9:05 AM EST Body Mass Index 30.84 03/22/2025 9:05 AM EST Plan of Treatment Upcoming Encounters Date Type Department Care Team (Late st Contact Info) Description 06/28/2025 10:45 AM EST Office Visit [facility] [address] [place] [address] Ginette Fortune MD [address] [place] [address] Health Maintenance Due Date Last Done Comments CT Colonography 1960 Colonoscopy 1960 Colorectal Cancer Screening 1960 FIT DNA/Cologuard 1961 FIT 1961 FOBT 1960 HIV Screening 1960 Sigmoidoscopy 1960 Eye Exam 1971 Pap Smear 1982 HPV/Cotest 1991 Depression Screening 10/20/2024 10/21/2023, 10/21/19 Diabetes: Foot Exam 10/20/2024 10/21/2023, COVID-19 Vaccine ( season) 2025 04/19/2021, 07/26/2020 Mammogram 03/09/2025 03/09/2024 Lipid Panel 09/14/2025 09/14/2024, 01/27/2024 Diabetes: Hemoglobin A1C 09/19/2025 025, 12/16/2024, 08/18/2024, Additional history exists SDOH Screening 12/07/2025 12/07/2024 Alcohol/Substance Use Screening 12/16/2025 12/16/2024 Disability Screening 12/16/2025 12/16/2024 Tobacco Screening 03/22/2026 03/22/2025 DTaP/Tdap/Td Vaccines (2 - Td or Tdap) 04/14/2034 04/14/2024 Zoster Vaccines Completed 11/02/2021, 07/23/2021 RSV Patients and Patients Aged 60 years or older Completed 07/04/2023 Hepatitis C Screening Completed 01/27/2024 Pneumococcal Vaccine: 50+ Years Completed 01/27/2024 Influenza Vaccine Completed 03/22/2025, , 01/30/2023, Additional history exists Cervical Cancer Screening Discontinued HIB Vaccines Aged [...] on patient's age to complete this topic Goals Goal Patient Goal Type Associated Problems Recent Progress Patient-Stated? Author Help patients manage their type 2 diabetes Care Plan Help patients manage their type 2 diabetes Era Thomason MA Weekly blood pressure task Care Plan Weekly blood pressure task No Era Buchanan MA Help patients manage their type 2 diabetes Care Plan Help patients manage their type 2 diabetes No Era Buchanan MA Patient has chronic kidney disease Care Plan Patient has chronic kidney disease No Era Buchanan MA Weekly blood pressure task Care Plan Weekly blood pressure task No Era Buchanan MA Patient has chronic kidney disease Care Plan Patient has chronic kidney disease No Era Buchanan MA Weekly blood pressure task Care Plan Weekly blood pressure task No Asya Eli MA Weekly blood pressure task Care Plan Weekly blood pressure task No Asya Eli MA Patient has chronic kidney disease Care Plan Patient has chronic kidney disease No Asya Eli MA Patient has chronic kidney disease Care Plan Patient has chronic kidney disease No Asya Eli MA Procedures Procedure Name Priority Date/Time Associated Diagnosis Comments US THYROID Routine 03/22/2025 12:18 PM EST POCT GLYCATED HEMOGLOBIN, TOTAL Routine 03/22/2025 9:07 AM EST Type 2 diabetes mellitus with stage 3 chronic kidney disease, without long-term current use of insulin, unspecified whether stage 3a or 3b CKD (HCC) POCT GLUCOSE Routine 03/22/2025 9:07 AM EST Type 2 diabetes mellitus with stage 3 chronic kidney disease, without long-term current use of insulin, unspecified whether stage 3a or 3b CKD (HCC) GLUCOSE, WHOLE BLOOD Routine 02/23/2025 9:21 AM EDT AMB REFERRAL TO ORTHOPAEDIC SURGERY Routine 02/15/2025 Chronic elbow pain, right LIPID PANEL, STANDARD Routine 09/14/2024 1:48 PM EDT BI MAMMOGRAM SCREENING TOMOSYNTHESIS BILATERAL Routine 03/09/2024 1:20 PM EST Encounter for screening mammogram for malignant neoplasm of breast HEPATITIS C AB W/REFL TO HCV RNA, QN, PCR Routine 01/27/2024 10:22 AM EDT Healthcare maintenance from Last 3 Months or Most Recently Relevant to Health Maintenance Results * US Thyroid (03/22/2025 12:18 PM EST) Anatomical Region Laterality Modality Head, Neck Ultrasound 03/22/2025 12:1 8 PM EST Narrative 03/22/2025 1:35 PM EST [place] [address] Ultrasound Report Signed Patient: Rosie Iverson MR#: [id number] : 1960 Acct:[id number] Age/Sex: 64 / F ADM Date: 03/22/25 Loc: HO.US Attending Dr: Chetna Izaguirre MD Ordering Physician: Chetna Izaguirre MD Date of Service: 03/22/25 Procedure(s): US thyroid Accession Number(s): [id number] cc: Ginette Fortune MD; Chetna Izaguirre MD Reason for Exam: E04.2 - Nontoxic multinodular goiter EXAMINATION: US THYROID CLINICAL INFORMATION: Multinodular goiter, nontoxic. COMPARISON: 02/16/2024. 08/10/2020 left mid thyroid nodule biopsy, benign. TECHNIQUE: Linear transducer grayscale and color Doppler examination with attention to the region of the thyroid. FINDINGS: SIZE: Measurements of the thyroid lobes and nodules are given in sagittal, anteroposterior and transverse dimensions respectively. Right Thyroid Lobe: 6.3 x 2.0 x 2.3 cm, volume 14.9 mL. (Previously 13.4 mL). Parenchyma: The gland echotexture is mildly heterogeneous. Thyroid vascularity is normal. Left Thyroid Lobe: 5.8 x 1.8 x 2.3 cm, volume 12.7 mL. (Previously 12.5 mL). Parenchyma: The gland echotexture is mildly heterogeneous. Thyroid vascularity is normal. Isthmus: 0.3 cm in maximum AP dimension. Estimated total number of nodules greater than or equal to 1 cm: 2. Genetic Supervisor nodules are described as follows: 1. Location: Right mid pole. Size: 1.1 x 0.6 x 1.2 cm, volume 0.44 mL. (Previous volume 0.4 mL). Unchanged in size. Nodule characteristics: Composition: Mixed cystic and solid (1). Echogenicity: Hypoechoic (2). Shape: Not taller than wide (0). Margins: Irregular (2). Echogenic Foci: None (0). ACR TI-RADS total points: 5 ACR TI-RADS category: 4 (previously 4) 2. Location: Right mid pole. Size: 0.5 x 0.4 x 0.4 cm, volume 0.04 mL. (Previously 0.04 mL). Unchanged in size. Nodule characteristics: Composition: Solid (2). Echogenicity: Hypoechoic (2). Shape: Not taller than wide (0). Margins: Smooth (0). Echogenic Foci: Peripheral calcifications (2). ACR TI-RADS total points: 6 ACR TI-RADS category: 4 (previously 4) 3. Location: Right mid to lower pole. Size: 0.8 x 0.5 x 0.7 cm, volume 0.14 mL. (Previously 0.08, minimally enlarged) Nodule characteristics: Composition: Mixed cystic and solid (1). Echogenicity: Hypoechoic (2). Shape: Not taller than wide (0). Margins: Smooth (0). Echogenic Foci: None (0). ACR TI-RADS total points: 3 ACR TI-RADS category: 3 (previously characterized as a TR 4) 4. Location: Right lower pole. Size: 0.5 x 0.5 x 0.9 cm, volume 0.12 mL. (Not previously seen.) Nodule characteristics: Composition: Mixed cystic and solid (1). Echogenicity: Very hypoechoic (3). Shape: Not taller than wide (0). Margins: Smooth (0). Echogenic Foci: Punctate echogenic foci (3). ACR TI-RADS total points: 7 ACR TI-RADS category: 5 5. Location: Left Mid pole. Size: 1.5 x 0.5 x 1.1 cm, volume 0.46 mL. (Previously measuring 0.4 mL, minimally enlarged.) Nodule characteristics: Composition: Mixed cystic and solid (1). Echogenicity: Hypoechoic (2). Shape: Not taller than wide (0). Margins: Irregular (2). Echogenic Foci: None (0). ACR TI-RADS total points: 5 ACR TI-RADS category: 4 (previously catheterize as TR category 1) NODES: No lymphadenopathy is seen in the tissue surrounding the thyroid gland. US/US thyroid IMPRESSION: 1. Multinodular goiter as described above. 2. A right mid pole 1.1 cm TR category 4 nodule is essentially unchanged. Follow-up recommended. 3. A left mid pole 1.5 cm TR category 4 nodule has minimally enlarged, and was previously characterized as a TR category 1. This was presumably the previously biopsied benign nodule. 4. There is a new subcentimeter right lower pole TR category 5 nodule, which was not previously described. Follow-up recommended. 5. The remainder of the nodules are all subcentimeter and all stable as described above. No follow-up recommended of these nodules. 6. The intervening thyroid parenchyma is minimally heterogeneous. ACR TI-RADS RECOMMENDATION REFERENCE: Ultrasound-guided fine-needle aspiration, followup ultrasound, no further follow up. * TR1 (0 point) and TR2 (2 points): No FNA or follow up. * TR3 (3 points): FNA if more than or equal to 2.5 cm in maximum dimension, followup ultrasound in 1, 3 and 5 years if 1.5 to 2.4 cm in maximum dimension. * TR4 (4-6 points): FNA if more than or equal to 1.5 cm in maximum dimension, followup ultrasound in 1, 2, 3 and 5 years if 1 to 1.4 cm in maximum dimension. * TR5 (more than or equal to 7 points): FNA if more than or equal to 1 cm in maximum dimension, followup ultrasound every year for 5 years if 0.5 to 0.9 cm in maximum dimension. * TR3, TR4 or TR5 nodules that are below the size threshold for followup receive no follow up. Electronically signed by: Jae Isidro MD 03/22/2025 01:33 PM [facility] Dictated By: Jae Isidro MD Signed By: <Electronically signed by Jae Isidro MD in OV> 03/22/25 1333 DD/ 1218 TD/TT: 03/22/25 1238 Automotive Glass Installer: Procedure Note Donotuseinterpreter, Image - 03/22/2025 [place] [address] Ultrasound Report Signed Patient: Jovani Iverson#: [id number] : 1960cct:[id number] Age/Sex: 64 / FADM Date: 03/22/25 Loc: HO.US Attending Dr: Chetna Izaguirre MD Ordering Physician: Chetna Izaguirre MD Date of Service: 03/22/25 Procedure(s): US thyroid Accession Number(s): [id number] cc: Ginette Fortune MD; Chetna Izaguirre MD Reason for Exam: E04.2 - Nontoxic multinodular goiter EXAMINATION: US THYROID CLINICAL INFORMATION: Multinodular goiter, nontoxic. COMPARISON: 02/16/2024. 08/10/2020 left mid thyroid nodule biopsy, benign. TECHNIQUE: Linear transducer grayscale and color Doppler examination with attention to the region of the thyroid. FINDINGS: SIZE: Measurements of the thyroid lobes and nodules are given in sagittal, anteroposterior and transverse dimensions respectively. Right Thyroid Lobe: 6.3 x 2.0 x 2.3 cm, volume 14.9 mL. (Previously 13.4 mL). Parenchyma: The gland echotexture is mildly heterogeneous. Thyroid vascularity is normal. Left Thyroid Lobe: 5.8 x 1.8 x 2.3 cm, volume 12.7 mL. (Previously 12.5 mL). Parenchyma: The gland echotexture is mildly heterogeneous. Thyroid vascularity is normal. Isthmus: 0.3 cm in maximum AP dimension. Estimated total number of nodules greater than or equal to 1 cm: 2. Genetic Supervisor nodules are described as follows: 1. Location: Right mid pole. Size: 1.1 x 0.6 x 1.2 cm, volume 0.44 mL. (Previous volume 0.4 mL). Unchanged in size. Nodule characteristics: Composition: Mixed cystic and solid (1). Echogenicity: Hypoechoic (2). Shape: Not taller than wide (0). Margins: Irregular (2). Echogenic Foci: None (0). ACR TI-RADS total points: 5 ACR TI-RADS category: 4 (previously 4) 2. Location: Right mid pole. Size: 0.5 x 0.4 x 0.4 cm, volume 0.04 mL. (Previously 0.04 mL). Unchanged in size. Nodule characteristics: Composition: Solid (2). Echogenicity: Hypoechoic (2). Shape: Not taller than wide (0). Margins: Smooth (0). Echogenic Foci: Peripheral calcifications (2). ACR TI-RADS total points: 6 ACR TI-RADS category: 4 (previously 4) 3. Location: Right mid to lower pole. Size: 0.8 x 0.5 x 0.7 cm, volume 0.14 mL. (Previously 0.08, minimally enlarged) Nodule characteristics: Composition: Mixed cystic and solid (1). Echogenicity: Hypoechoic (2). Shape: Not taller than wide (0). Margins: Smooth (0). Echogenic Foci: None (0). ACR TI-RADS total points: 3 ACR TI-RADS category: 3 (previously characterized as a TR 4) 4. Location: Right lower pole. Size: 0.5 x 0.5 x 0.9 cm, volume 0.12 mL. (Not previously seen.) Nodule characteristics: Composition: Mixed cystic and solid (1). Echogenicity: Very hypoechoic (3). Shape: Not taller than wide (0). Margins: Smooth (0). Echogenic Foci: Punctate echogenic foci (3). ACR TI-RADS total points: 7 ACR TI-RADS category: 5 5. Location: Left Mid pole. Size: 1.5 x 0.5 x 1.1 cm, volume 0.46 mL. (Previously measuring 0.4 mL, minimally enlarged.) Nodule characteristics: Composition: Mixed cystic and solid (1). Echogenicity: Hypoechoic (2). Shape: Not taller than wide (0). Margins: Irregular (2). Echogenic Foci: None (0). ACR TI-RADS total points: 5 ACR TI-RADS category: 4 (previously catheterize as TR category 1) NODES: No lymphadenopathy is seen in the tissue surrounding the thyroid gland. US/US thyroid IMPRESSION: 1. Multinodular goiter as described above. 2. A right mid pole 1.1 cm TR category 4 nodule is essentially unchanged. Follow-up recommended. 3. A left mid pole 1.5 cm TR category 4 nodule has minimally enlarged, and was previously characterized as a TR category 1. This was presumably the previously biopsied benign nodule. 4. There is a new subcentimeter right lower pole TR category 5 nodule, which was not previously described. Follow-up recommended. 5. The remainder of the nodules are all subcentimeter and all stable as described above. No follow-up recommended of these nodules. 6. The intervening thyroid parenchyma is minimally heterogeneous. ACR TI-RADS RECOMMENDATION REFERENCE: Ultrasound-guided fine-needle aspiration, followup ultrasound, no further follow up. * TR1 (0 point) and TR2 (2 points): No FNA or follow up. * TR3 (3 points): FNA if more than or equal to 2.5 cm in maximum dimension, followup ultrasound in 1, 3 and 5 years if 1.5 to 2.4 cm in maximum dimension. * TR4 (4-6 points): FNA if more than or equal to 1.5 cm in maximum dimension, followup ultrasound in 1, 2, 3 and 5 years if 1 to 1.4 cm in maximum dimension. * TR5 (more than or equal to 7 points): FNA if more than or equal to 1 cm in maximum dimension, followup ultrasound every year for 5 years if 0.5 to 0.9 cm in maximum dimension. * TR3, TR4 or TR5 nodules that are below the size threshold for followup receive no follow up. Electronically signed by: Jae Isidro MD 03/22/2025 01:33 PM EST Dictated By: Jae Isidro MD Signed By: <Electronically signed by Jae Isidro MD in OV> 03/22/25 1333 DD/ 1218 TD/TT: 03/22/25 1238 Automotive Glass Installer: [facility] External Provider IMG US PROCEDURES Final Result * (ABNORMAL) POCT Hgb A1c (03/22/2025 9:07 AM EST) Hemoglobin A1C 6.5(A) 4.0 - 5.7 % QC Media Lot # [id number] Lot# Expiration Date 52,327 Blood 03/22/2025 9:07 AM EST Ginette Freeman MD POINT OF CARE TEST EN TER/EDIT ORDERABLES Final Result * POCT Glucose (03/22/2025 9:07 AM EST) Glucose Blood, POC 145 60 - 200 mg/dL QC Media Lot # [id number] Lot# Expiration Date 7,726 Blood Capillary blood specimen / Unknown 03/22/2025 9:07 AM EST Ginette Freeman MD POINT OF CARE TEST EN TER/EDIT ORDERABLES Final Result * (ABNORMAL) Glucose, Whole Blood (02/23/2025 9:21 AM EDT) Glucose, Whole Blood 197(H) 60 - 115 mg/dL [facility] Comment:METER #: [id number] 0Testing performed in the Endocrinology Department [address] , [address], [facility]. 02/23/2025 9:21 AM EDT 02/23/2025 9:25 AM EDT us Generic External Data Provider LAB BLOOD ORDERAB LES Final Result [facility] [address] [place] [address] [phone] * Referral to Orthopaedic Surgery (02/15/2025) us Ginette Freeman MD OUTPATIENT REFERRAL O RDERABLES Final Result * (ABNORMAL) Lipid Panel, Standard (09/14/2024 1:48 PM EDT) Triglycerides 172(H) <150 mg/dL [facility] Comment:Desirable Triglyceri de: less than 150 mg/dLBorderline High Triglyceride 150-199 mg/dLHigh Triglyceride: 200-499 mg/dLVery High Triglyceride: greater than or equal to 5OO mg/dL Cholesterol 227(H) <200 mg/dL [facility] Comment:Desirable Cholestero l: less than 200 mg/dLBorderline High Cholesterol: 200-239 mg/dLHigh Cholesterol: greater than 239 mg/dL LDL Cholesterol Calculated 136(H) <100 mg/dL [facility] Comment:Desirable LDL: less than 100 mg/dLNear Optimal/Above Optimal LDL: 110- 129 mg/dLBorderline High LDL: 130-159 mg/dLHigh LDL: 160-189 mg/dLVery High LDL: greater than or equal to 190 mg/dL HDL Cholesterol 57 >40 mg/dL [facility] Comment:Desirable HDL: great er than 40 mg/dL Note: This HDL assay may give artificially low results in patients with liver disease. 09/14/2024 1:48 PM EDT 09/14/2024 1:48 PM EDT us Generic External Data Provider LAB BLOOD ORDERAB LES Final Result [facility] [address] [place] [address] [phone] * BI Mammogram Screening Tomosynthesis Bilateral (03/09/2024 1:20 PM EST) Anatomical Region Laterality Modality Breast Bilateral Mammography 03/09/2024 1:20 PM EST Narrative 03/17/2024 1:55 PM EST [address] [place] [address] Mammography Report Signed Patient: oRsie Iverson MR#: [id number] : 1960 Acct:[id number] Age/Sex: 63 / F ADM Date: 03/09/24 Loc: HO.MAMMO Attending Dr: Ginette Freeman MD Ordering Physician: Ginette Fortune MD Results: 1Negative Date of Service: 03/09/24 Follow Up: 1 Year From [facility] Mammogram Procedure(s): MM tomosynthesis screening BI Accession Number(s): [id number] cc: Ginette Fortune MD EXAMINATION: MM SCREENING [...] 03/17/24 1352 DD/ 1320 TD/TT: 03/09/24 1335 Automotive Glass Installer: Procedure Note Donotuseinterpreter, Image - 03/17/2024 [facility] [address] [place], [place] [address] Mammography Report Signed Patient: Michaela IversonR#: [id number] : 1960cct:[id number] Age/Sex: 63 / FADM Date: 03/09/24 Loc: HO.MAMMO Attending Dr: Ginette Freeman MD Ordering Physician: Ginette Fortune MDResults: 1Negative Date of Service: 03/09/24Follow Up: 1 Year From Orig inal Mammogram Procedure(s): MM tomosynthesis screening BI Accession Number(s): [id number] cc: Ginette Fortune MD EXAMINATION: MM SCREENING [...] 03/17/24 1352 DD/ 1320 TD/TT: 03/09/24 1335 Automotive Glass Installer: us Ginette Freeman MD IMG BI PROCEDURES Fin al Result * Hepatitis C Antibody with Reflex to HCV, RNA, Quantitative, Real-Time PCR (01/27/2024 10:22 AM EDT) Hepatitis C Antibody Nonreactive Nonreactive [facility] Comment:Antibodies to HCV no t detected; does not exclude early acuteHCV infection. Blood Venous blood specimen / Unknown 01/27/2024 10:22 AM EDT 01/27/2024 11:20 AM EDT us Ginette Freeman MD LAB BLOOD ORDERABLES Final Result [facility] [address] [place] [phone] from Last 3 Months or Most Recently Relevant to Health Maintenance Additional Health Concerns Active Problems Noted Date Diagnosed Date Help patients manage their type 2 diabetes 03/21 Weekly blood pressure task 03/21/2025 Help patients manage their type 2 diabetes 03/21 Patient has chronic kidney disease 03/21/2025 Weekly blood pressure task 03/21/2025 Patient has chronic kidney disease 03/21/2025 Weekly blood pressure task 03/22/2025 Weekly blood pressure task 03/22/2025 Patient has chronic kidney disease 03/22/2025 Patient has chronic kidney disease 03/22/2025 Insurance [employer] < 65 Care Teams Die Repairer Forging Relationship Specialty Start Date End Date Ginette Fortune MD [address] [place] [address] PCP - General Internal Medicine 10/27/23
--- OUTSIDE RECORDS SUMMARY | 2025-04-21 13:17 | XMS_ITS | Encounter Summary ---
Author Organization [facility] Address [address] [place] [address] Phone Care Team Providers Care Junior Account Executive Name Role Phone Ashkan Jacobson MD Primary Care Provider [phone] Encounter Details Date Type Department Care Team (Late st Contact Info) Description 02/17/2024 Documentation Only [facility], [address] [place] [address] Xochilt Crawford [place] [address] [place] [address] Social History Tobacco Use Types [...] on filedocumented in this encounter Care Teams Junior Account Executive Relationship Specialty Start Date End Date Ashkan Jacobson MD [address] [place] [address] [address] [place], [place] PCP - General 03/09/19 documented as of this encounter
== END 2025-04-21 12:14 | disposition home or self-care (01) ==
LOC: HO.ENCR 10:34
PROVIDERS: Visit Provider Student in an Organized Health Care Education/Training Program
DX: E04.2 Nontoxic multinodular goiter (principal); E05.90 Thyrotoxicosis, unspecified without thyrotoxic crisis or storm
CPT/HCPCS: 99214; G2211

== ENCOUNTER 2025-04-21 10:33 | Outpatient (REF) | payer OTHER, SELFPAY ==
[2025-04-21 14:35] LABS: Cholesterol 266 mg/dL (<200); HDL Cholesterol 53 mg/dL (>40); Triglycerides 193 mg/dL (<150)
[2025-04-21 15:41] LABS: Free T4 (Free Thyroxine) 0.89 ng/dL (0.71-1.85)
== END 2025-04-21 10:34 | disposition home or self-care (01) ==
LOC: HO.LAB 10:33
PROVIDERS: PCP Internal Medicine; Visit Provider Student in an Organized Health Care Education/Training Program
DX: E05.20 Thyrotoxicosis with toxic multinodular goiter without thyrotoxic crisis or storm (principal); E78.5 Hyperlipidemia, unspecified
CPT/HCPCS: 36415; 80061; 84436; 84439; 84443; 84480; 99212

== ENCOUNTER 2025-05-04 09:14 | Outpatient (REF) | payer OTHER, SELFPAY ==
--- OUTSIDE RECORDS SUMMARY | 2025-05-04 09:26 | XMS_ITS | Clinical Summary ---
Author Organization [employer] Address [address] [facility] 7 [place] [address] Care Team Providers Care Plaque Maker Name Role Phone Ginette Fortune MD Primary [...] 4 Active Diclofenac Sodium 1 % gelIndications:Ac point lay ira pain of left knee To apply to [...] day for anxiety. 4 Active Continuous Glucose Tower Operator (FreeStyle Jame 2 [place]) device 4 Active docusate sodium (Colace) 100 [...] Thyroid nodule 01/27/2024 Type 2 diabetes mellitus, [facility] current use of insulin 10/21/2023 [...] management Griffin Cuellar NP (located on [address] [place] [address] phone [phone]) Diabetes is: controlled - Lab Results Component [...] psychiatrist Keiko Philippe located on [address] [place] [address] phone [phone] it is being prescribed for her trazodone, [...] Encounters Date Type Department Care Team Description 04/21/2025 Orders Only GENERIC EXTERNAL DATA DEPARTMENT Provider, Generic External Data 03/22/2025 9:15 AM EST Office Visit [facility] MEDICINE [address] [place] [address] [phone] Ginette Fortuen MD Type 2 diabetes mellitus with stage 3 chronic kidney disease, without long-term current use of insulin, unspecified whether stage 3a or 3b CKD (HCC); Dry skin dermatitis; Encounter for immunization; Dietary counseling; Exercise counseling 03/22/2025 Travel 03/21/[address] [phone] Ginette Fortune MD Chart Prep 03/15/2025 Patient Outreach [address] [phone] Ginette Fortune MD Pre-visit Planning ((PVP screening completed, no concerns)) 02/23/2025 Orders Only GENERIC EXTERNAL DATA DEPARTMENT Provider, Generic External Data 02/04/[address] [phone] Ginette Fortune MD Resistant hypertension from Last [...] Description 06/28/2025 10:45 AM EST Office Visit [facility] MEDICINE [address] [place] [address] Ginette Fortune MD [address] [place] [address] Health Maintenance Due Date Last Done Comments CT Colonography 1961 Colonoscopy 1961 Colorectal Cancer Screening 1961 FIT DNA/Cologuard 1961 FIT 1961 FOBT 1961 HIV Screening 1961 Sigmoidoscopy 1961 Eye Exam 1971 Pap Smear 1982 HPV/Cotest 1991 Depression Screening 10/20/2024 10/21/2023, 10/21/19 Diabetes: Foot Exam 10/20/2024 10/21/2023, COVID-19 Vaccine ( season) 2025 04/19/2021, 07/26/2020 Mammogram 03/09/2025 03/09/2024 Diabetes: Hemoglobin A1C 09/19/2025 025, 12/16/2024, 08/18/2024, Additional history exists SDOH Screening 12/07/2025 12/07/2024 Alcohol/Substance Use Screening 12/16/2025 12/16/2024 Disability Screening 12/16/2025 12/16/2024 Tobacco Screening 03/22/2026 03/22/2025 Lipid Panel 04/21/2026 04/21/2025, 0507/2024, 01/27/2024 DTaP/Tdap/Td Vaccines (2 - Td or [...] type 2 diabetes No Era Buchanan [place] Weekly blood pressure [...] Procedure Name Priority Date/Time Associated Diagnosis Comments T3, TOTAL Routine 04/21/2025 12:36 PM EST T4, FREE Routine 04/21/2025 12:36 PM EST TSH W/REFLEX TO FT4 Routine 04/21/2025 1 2:36 PM EST T4 (THYROXINE), TOTAL Routine 04/21/2025 12:36 PM EST LIPID PANEL, STANDARD Routine 04/21/2025 12:36 PM EST US THYROID Routine 03/22/2025 12:18 PM EST POCT GLYCATED HEMOGLOBIN, TOTAL Routine 03/22/2025 9:07 AM EST Type 2 diabetes mellitus with stage 3 chronic kidney disease, without long-term current use of insulin, unspecified whether stage 3a or 3b CKD (HCC) POCT GLUCOSE (CPT-20705) Routine 03/22/2025 9:07 AM EST Type 2 diabetes mellitus with stage 3 chronic kidney disease, without long-term current use of insulin, unspecified whether stage 3a or 3b CKD (HCC) GLUCOSE, WHOLE BLOOD Routine 02/23/2025 9:21 AM EDT AMB REFERRAL TO ORTHOPAEDIC SURGERY Routine 02/15/2025 Chronic elbow pain, right BI MAMMOGRAM SCREENING TOMOSYNTHESIS BILATERAL Routine 03/09/2024 1:20 PM EST Encounter for screening mammogram for malignant neoplasm of breast HEPATITIS C AB W/REFL TO HCV RNA, QN, PCR Routine 01/27/2024 10:22 AM EDT Healthcare maintenance from Last 3 Months or Most Recently Relevant to Health Maintenance Results * (ABNORMAL) TSH with Reflex to Free T4 (04/21/2025 12:36 PM EST) TSH reflex Free T4 0.31(L) 0.32 - 4.0 uIU/mL [facility] 04/21/2025 12:3 6 PM EST 04/21/2025 12:36 PM EST us Generic External Data Provider LAB BLOOD ORDERAB LES Final Result [facility] [address] [place] [phone] * T3, Total (04/21/2025 12:36 PM EST) T3, Total 85 76 - 181 ng/dL [facility] Comment:THIS TEST WAS PERFOR MED AT:[employer] [employer] [place] [phone] RAMIREZ MD 04/21/2025 12:3 6 PM EST 04/21/2025 12:36 PM EST us Generic External Data Provider LAB BLOOD ORDERAB LES Final Result Performing Organization Address [facility]/ZIP Co de Phone Number [facility] [address] [place] [phone] * T4, Free (04/21/2025 12:36 PM EST) Free T4 (Free Thyroxine) 0.89 0.71 - 1.85 ng/dL [facility] 04/21/2025 12:3 6 PM EST 04/21/2025 12:36 PM EST us Generic External Data Provider LAB BLOOD ORDERAB LES Final Result Performing Organization Address [facility] Co de Phone Number [facility] [address] [place] [phone] * T4 (Thyroxine), Total (04/21/2025 12:36 PM EST) T4 Thyroxine 6.5 4.5 - 12.0 ug/dL [facility] 04/21/2025 12:3 6 PM EST 04/21/2025 12:36 PM EST Generic External Data Provider LAB BLOOD ORDERAB LES Final Result Performing Organization Address [facility]/ZIP Co de Phone Number [facility] [address] [place] [phone] * (ABNORMAL) Lipid Panel, Standard (04/21/2025 12:36 PM EST) Triglycerides 193(H) <150 mg/dL [facility] Comment:Desirable Triglyceri de: less than 150 mg/dLBorderline High Triglyceride 150-199 mg/dLHigh Triglyceride: 200-499 mg/dLVery High Triglyceride: greater than or equal to 5OO mg/dL Cholesterol 266(H) <200 mg/dL [facility] Comment:Desirable Cholestero l: less than 200 mg/dLBorderline High Cholesterol: 200-239 mg/dLHigh Cholesterol: greater than 239 mg/dL LDL Cholesterol Calculated 175(H) <100 mg/dL [facility] Comment:Desirable LDL: less than 100 mg/dLNear Optimal/Above Optimal LDL: 110- 129 mg/dLBorderline High LDL: 130-159 mg/dLHigh LDL: 160-189 mg/dLVery High LDL: greater than or equal to 190 mg/dL HDL Cholesterol 53 >40 mg/dL [facility] Comment:Desirable HDL: great er than 40 mg/dL Note: This HDL assay may give artificially low results in patients with liver disease. 04/21/2025 12:3 6 PM EST 04/21/2025 12:36 PM EST us Generic External Data Provider LAB BLOOD ORDERAB LES Final Result [facility] [address] [place] [phone] * US Thyroid (03/22/2025 12:18 PM EST) Anatomical Region Laterality Modality Head, Neck Ultrasound 03/22/2025 12:1 8 PM EST Narrative 03/22/2025 1:35 PM EST [address] [address] Ultrasound Report Signed Patient: Rosie Iverson MR#: [id number] : 1960 Acct:[id number] Age/Sex: 64 / F ADM Date: 03/22/25 Loc: HO.US Attending Dr: Chetna Izaguirre MD Ordering Physician: Chetna Izaguirre MD Date of Service: 03/22/25 Procedure(s): US thyroid Accession Number(s): [id number] cc: Ginette Fortune MD; Chetna Izaguirre MD [...] than or equal to 1 cm: 2. Battery Recharger nodules are described as follows: 1. Location: [...] by: Jae Isidro MD 03/22/2025 01:33 PM [facility] Dictated By: Jae Isidro MD Signed By: <Electronically signed by Jae Isidro MD in OV> 03/22/25 1333 DD/ 1218 TD/TT: 03/22/25 1238 Dedicated Regional Driver: Procedure Note Donotuseinterpreter, Image - 03/22/[address] [address] Ultrasound Report Signed Patient: Jovani Iverson#: [id number] : 2Acct:[id number] Age/Sex: 64 / FADM Date: 03/22/25 Loc: HO.US Attending Dr: Chetna Izaguirre MD Ordering Physician: Chetna Izaguirre MD Date of Service: 03/22/25 Procedure(s): US thyroid Accession Number(s): [id number] cc: Ginette Fortune MD; Chetna Izaguirre MD [...] than or equal to 1 cm: 2. Battery Recharger nodules are described as follows: 1. Location: [...] 03/22/25 1333 DD/ 1218 TD/TT: 03/22/25 1238 Dedicated Regional Driver: [facility] External Provider IMG US PROCEDURES Final Result * (ABNORMAL) POCT Hgb A1c (03/22/2025 9:07 AM EST) Hemoglobin A1C 6.5(A) 4.0 - 5.7 % QC Media Lot # [id number] Lot# Expiration Date 52,327 Blood 03/22/2025 9:07 AM EST us Ginette Freeman MD POINT OF CARE TEST EN TER/EDIT ORDERABLES Final Result * POCT Glucose (03/22/2025 9:07 AM EST) Glucose Blood, POC 145 60 - 200 mg/dL QC Media Lot # [id number] Lot# Expiration Date 72 Blood Capillary blood specimen / Unknown 03/22/2025 9:07 AM EST Ginette Freeman MD POINT OF CARE TEST EN TER/EDIT ORDERABLES Final Result * (ABNORMAL) Glucose, Whole Blood (02/23/2025 9:21 AM EDT) Glucose, Whole Blood 197(H) 60 - 115 mg/dL [facility] Comment:METER #: [id number] 0Testing performed in the Endocrinology Department [address] , [address], [place]. 02/23/2025 9:21 AM EDT 02/23/2025 9:25 AM EDT Generic External Data Provider LAB BLOOD ORDERAB LES Final Result Performing Organization Address City/State/[facility] Co de Phone Number [facility] [address] [place] [phone] * Referral to Orthopaedic Surgery (02/15/2025) Ginette Freeman MD OUTPATIENT REFERRAL O RDERABLES Final Result * BI Mammogram Screening Tomosynthesis Bilateral (03/09/2024 1:20 PM EST) Anatomical Region Laterality Modality Breast Bilateral Mammography 03/09/2024 1:20 PM EST Narrative 03/17/2024 1:55 PM EST [address] [place] [address] Mammography Report Signed Patient: Rosie Iverson MR#: [id number] : 1960 Acct:[id number] Age/Sex: 63 / F ADM Date: 03/09/24 Loc: MAMMO Attending Dr: Ginette Freeman MD Ordering Physician: Ginette Fortune MD Results: 1Negative Date of Service: 03/09/24 Follow Up: 1 Year From Orig ina Mammogram Procedure(s): MM tomosynthesis screening BI Accession Number(s): [id number] cc: Ginette Fortune MD EXAMINATION: MM SCREENING [...] 03/17/24 1352 DD/ 1320 TD/TT: 03/09/24 1335 Dedicated Regional Driver: Procedure Note Donotuseinterpreter, Image - 03/17/2024 [facility] [address] [place] [address] [place] [address] Mammography Report Signed Patient: Jovani Iverson#: [id number] : 2Acct:[id number] Age/Sex: 63 / FADM Date: 03/09/24 Loc: MAMMO Attending Dr: Ginette Freeman MD Ordering Physician: Ginette Fortune MDResults: 1Negative Date of Service: 03/09/24Follow Up: 1 Year From Orig ina Mammogram Procedure(s): MM tomosynthesis screening BI Accession Number(s): [id number] cc: Ginette Fortune MD EXAMINATION: MM SCREENING [...] by: Amy Lu DO 03/17/2024 01:52 PM [facility] Dictated By: Amy Lu DO Signed By: <Electronically signed by Amy Lu DO in OV> 03/17/24 1352 DD/ 1320 TD/TT: 03/09/24 1335 Dedicated Regional Driver: us Ginette Freeman MD IMG BI PROCEDURES Fin al Result * Hepatitis C Antibody with Reflex to HCV, RNA, Quantitative, Real-Time PCR (01/27/2024 10:22 AM EDT) Hepatitis C Antibody Nonreactive Nonreactive [facility] Comment:Antibodies to HCV no t detected; does not exclude early acuteHCV infection. Blood Venous blood specimen / Unknown 01/27/2024 10:22 AM EDT 01/27/2024 11:20 AM EDT us Ginette Freeman MD LAB BLOOD ORDERABLES Final Result [facility] [address] [place] [phone] from Last 3 Months or Most [...] Patient has chronic kidney disease 03/22/2025 Insurance [facility] < 66 [place] [phone] Care Teams Plaque Maker Relationship Specialty Start Date End Date Ginette Fortune MD [address] [place] [address] PCP - General Internal Medicine 10/27/23
--- OUTSIDE RECORDS SUMMARY | 2025-05-04 09:26 | XMS_ITS | Encounter Summary ---
Author Organization [employer] Address [address] [facility] 7t [place] [address] Care Team Providers Care Sign Carpenter Name Role Phone Ginette Fortune MD Primary Care Provide r Reason for Visit * Reason Onset Date Comments Hospital Follow-up 05/14/2024 Encounter Details Date Type Department Care Team ([facility] Contact Info) Description 05/14/[address] [facility] MEDICINE [address] [place] [address] Ginette Fortune MD [address] [place] [address] Hospital Follow-up Social History Tobacco Use Types [...] 05/13/2024 Diagnosed: Kidney problems *Send message to [place] Clinical Care Coordinators documented in this encounter Plan of Treatment Upcoming Encounters Date Type Department Care Team (Late st Contact Info) Description 06/28/2025 10:45 AM EST Office Visit [facility] MEDICINE [address] [place] [address] Ginette Fortune MD [address] [place] [address] documented as of this encounter Visit Diagnoses Not on filedocumented in this encounter Additional Health Concerns Assessment Noted Time PHQ-9 Depression Total Score: 0 10/21/19 10:02 AM EDT documented as of this encounter Care Teams Sign Carpenter Relationship Specialty Start Date End Date Ginette Fortune MD [address] [place] [phone] PCP - General Internal Medicine 10/27/23 documented as of this encounter
--- OUTSIDE RECORDS SUMMARY | 2025-05-04 09:26 | XMS_ITS | Clinical Summary ---
Author Organization [employer] [facility] Address [address] [place] [address] Care Team Providers Care Water Attendant Name Role Phone Kaley Jacobson MD Primary Care Provider Unavailab le Surgical History Surgery Date Site/Laterality Comments TOTAL KNEE ARTHROPLASTY 2009 PROCEDURE: NC ARTHRP KNE CONDYLE&PLATU MEDIAL&LAT COMPARTMENTS CHOLECYSTECTOMY PROCEDURE: NC LAPAROSCOPY SURG CHOLECYSTECTOMY SECTION PROCEDURE: HISTORICAL OTHER [...] pain 03/2017, seeking 2nd opinion at [facility] History of CVA (cerebrovascu lar accident) [...] age to complete this topic Care Teams Water Attendant Relationship Specialty Start Date End Date Kaley Jacobson MD PCP - General Internal Medicine 03/11/17
--- OUTSIDE RECORDS SUMMARY | 2025-05-04 09:26 | XMS_ITS | Encounter Summary ---
Author Organization [employer] [facility] Address [address] [address] Care Team Providers Care Tube Making Machine Operator Name Role Phone Ginette Fortune MD Primary Care Provide r Reason for Referral * Consultation (Routine) - Closed Specialty Diagnoses / Procedures Referred By Eula winston Referred To Contact Orthopaedic Surgery Diagnoses Acute pain of left knee Drea Monroy MD [address] [place] [address] Phone: tel: fax: [facility] [address] [place] [address] [place] [address] Phone: tel: fax: Referral ID Status Reason Start Date Expiration Date V isits Requested Visits Authorized [id number] Closed Specialty Services Required 11/14/2023 11/13/2024 1 1 Encounter Details Date Type Department Care Team (Late st Contact Info) Description 11/14/2023 Orders Only [facility] [address] [place], [place] [phone] Drea Monroy MD [address] [place], [place] [phone] Acute pain of left knee (Primary Dx) [...] Description 06/28/2025 10:45 AM EST Office Visit [facility] MEDICINE [address] [place] [address] Ginette Fortune MD [address] [place] [address] Scheduled Referrals Name Type Priority Associated Diagnoses [...] documented as of this encounter Care Teams Tube Making Machine Operator Relationship Specialty Start Date End Date Ginette Fortune MD [address] [place] [address] PCP - General Internal Medicine 10/27/23 documented as of this encounter
[2025-05-04 10:45] LABS: Blood Urea Nitrogen 25 mg/dL (9-16); Estimated Glomerular Filt Rate 42
== END 2025-05-04 09:15 | disposition home or self-care (01) ==
LOC: HO.LAB 09:14
PROVIDERS: PCP Internal Medicine; Visit Provider Nurse Practitioner Family
DX: R39.15 Urgency of urination (principal)
CPT/HCPCS: 36415; 82565; 84520

== ENCOUNTER 2025-05-04 09:59 | Emergency (ER) | payer OTHER, SELFPAY ==
--- NOTE | ~2025-05-04 | XR_ITS ---
EXAMINATION: XR TIBIA FIBULA 2 VIEWS LEFT HISTORY: pain COMPARISON: There are no prior studies available for comparison. FINDINGS: AP and lateral views of the left tibia and fibula are submitted. Osseous mineralization is normal. There is no fracture or dislocation. The patient is status post total knee arthroplasty. The ankle joint is preserved. The soft tissues are unremarkable. XR/XR tibia fibula LT 2V IMPRESSION: No evidence of fracture of the left tibia or fibula. Electronically signed by: Jose Enrique Shannon MD 05/04/2025 11:00 AM LINDA
--- NOTE | ~2025-05-04 | US_ITS ---
EXAMINATION: US TRIPLEX LOWER EXTREMITY, LEFT CLINICAL INFORMATION: Left leg history of DVT, leg pain. COMPARISON: None available. TECHNIQUE: Color-flow triplex imaging with spectral analysis and compression Doppler were performed on the left lower extremity. FINDINGS: Respiratory variation, normal compression and augmented flow are noted throughout the left lower extremity. The visualized common femoral vein, superficial femoral vein, profunda femoral vein, popliteal vein and midcalf peroneal and posterior tibial venous segments show no evidence of deep venous thrombosis. There is no Oscar's cyst. US/US venous duplex LE LT IMPRESSION: No evidence of deep venous thrombosis involving the left lower extremity. Electronically signed by: Jae Isidro MD 05/04/2025 11:56 AM LINDA
[2025-05-04 10:15] VITALS: BP 158/87; PULSE 81; RESP 18; TEMP 36.9; O2SAT 96; BMI 28.5
--- NOTE | 2025-05-04 10:16 | ED.LOWEXIN ---
HPI - Extremity Injury (Lower) General Chief Complaint: Extremity Injury, Lower Stated Complaint: L knee repl ludmila 10 yrs ago, having pain now Time Seen by Provider: 05/04/25 11:00 Source: patient, RN notes reviewed, old records reviewed and park interpreter Mode of arrival: ambulatory Limitations: language barrier History of Present Illness ED Provider: Bette HPI Narrative: Patient Is a 64-year-old Zambian-speaking female status post left TKA 10 years prior presenting to the emergency department with complaint of left barrett pain since yesterday. States she noticed the pain while she was washing dishes. Denies pain at rest but reports pain increases with standing or ambulation as well as palpation. Denies any redness or swelling. Denies fever. Related Data Home Medications ?Medication ?Instructions ?Recorded ?Confirmed amlodipine 10 mg tablet 10 mg PO DAILY 02/05/20 02/22/25 fluticasone propionate 50 1 spray intranasal DAILY PRN nasal 07/19/20 02/22/25 mcg/actuation nasal congestion spray,suspension blood-glucose meter (OneTouch #1 ea 08/29/22 11/30/24 Ultra2 Meter) fluoxetine 40 mg capsule 40 mg PO DAILY 08/29/22 02/22/25 trazodone 50 mg tablet 50 - 150 mg PO BEDTIME PRN Sleep 08/29/22 02/22/25 lisinopril 40 mg tablet 40 mg PO DAILY 01/28/24 02/22/25 hydrochlorothiazide 12.5 mg tablet 12.5 mg PO DAILY 06/07/24 02/22/25 metoprolol succinate 50 mg 50 mg PO DAILY 11/17/24 02/22/25 tablet,extended release 24 hr Previous Rx's ?Medication ?Instructions ?Recorded sennosides 8.6 mg tablet (senna) 8.6 mg PO DAILY #90 tabs 12/03/22 flash glucose sensor (FreeStyle #2 ea 02/20/23 Jame 2 Sensor kit) docusate sodium 100 mg capsule 100 mg PO BID #90 caps 01/19/24 FreeStyle Jame 2 [place] (flash #1 ea 01/28/24 glucose scanning reader) oxycodone 5 mg tablet 5 mg PO Q6H PRN pain #20 tabs 06/01/24 FreeStyle Jame 3 [place] #1 ea 09/08/24 (blood-glucose,iridologist,cont) apixaban 5 mg tablet 5 mg PO BID #90 tabs 11/16/24 Lantus Solostar U-100 Insulin 100 10 unit (0.1 mL) subcut QPM #15 mL 12/10/24 unit/mL (3 mL) subcutaneous pen (insulin glargine) OneTouch Delica Plus Lancet 33 #400 ea 12/14/24 gauge (lancets) OneTouch Ultra Test (blood sugar #400 ea 12/14/24 diagnostic) pen needle, diabetic 32 gauge x #30 ea 12/15/24/16 (Comfort EZ Pen [place]) Mounjaro 7.5 mg/0.5 mL 7.5 mg (0.5 mL) subcut QWEEK #6 mL 12/29/24 subcutaneous pen injector (tirzepatide) atorvastatin 40 mg tablet 40 mg PO BEDTIME #90 tabs 02/07/25 FreeStyle Jame 3 Plus Sensor #6 ea 02/23/25 (blood-glucose sensor) ezetimibe 10 mg tablet 10 mg PO DAILY #30 tabs 04/21/25 rosuvastatin 40 mg tablet 40 mg PO DAILY #30 tabs 04/21/25 lidocaine 5 % topical patch 1 patch topical DAILY #15 ea 05/04/25 Allergies Allergy/AdvReac Type Severity Reaction Status Date / Time latex (LATEX) Allergy Mild RASH Verified 05/04/25 10:15 metformin AdvReac Unknown Verified 05/04/25 10:15 Review of Systems Review of Systems: As per hpi Yes all other systems are reviewed and are negative Constitutional: Constitutional: Reports as per HPI [facility] Past Medical History Medical History Anxiety Depression GERD (gastroesophageal reflux disease) COVID-19 vaccine series completed Tachycardia Toxic multinodul goiter Chronic renal insufficiency Nephrolithiasis Cyst, kidney, acquired Diabetic neuropathy BMI 34.0-34.9,adult BMI 35.0-35.9,adult BMI 36.0-36.9,adult Pre-op evaluation B12 deficiency Obesity (BMI 30-39.9) Non-toxic multinodular goiter Dyslipidemia Diabetic 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 with type 2 diabetes mellitus 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 Distal radius fracture, right HTN (hypertension) Chronic kidney disease Diabetes type 2, uncontrolled Surgical History History of abdominoplasty History of surgery S/P fine needle aspiration S/P laparoscopic sleeve gastrectomy History of esophagogastroduodenoscopy (EGD) H/O colonoscopy Hx of biopsy History of partial hysterectomy History of total right knee replacement History of total left knee replacement (~2010) Hx of cholecystectomy History of section History of carpal tunnel release (~2018) Family History Family History Father Hypertension Diabetes History of kidney cancer Mother Diabetes Hypertension Heart disease Brother Hypertension Diabetes Brother No problems noted. Son Hypertension Prediabetes Heart disease Daughter Prediabetes Social History Social History Household Members: Spouse Housing: Apartment Are you a primary respiratory care specialist to a significant other at home: No Do you presently have visiting nurse or other home services: No Alcohol intake: never Patient Tobacco Use Status: Never used Tobacco Smoked in Last 30 Days: No Use of substances other than those prescribed or required for medical reasons: No Advance Directives: No Advance Directives Information Provided: Yes Patient : No service: No Current occupational status: retired Current occupation: right hand dominant Physical Exam Vital Signs: Vital Signs: Last Vital Signs Temp 98.5 F 05/04/25 10:15 Pulse 81 05/04/25 10:15 Resp 18 05/04/25 10:15 BP 158/87 H 05/04/25 10:15 Pulse Ox 96 05/04/25 10:15 O2 Del Method Room Air 05/04/25 10:15 BMI result Body Mass Index 28.5 Vital signs have been reviewed and appear to be correct. Blood pressure elevated. Heart rate normal. Respiratory rate normal. Temperature normal. Oxygen saturation normal. Const: General: cooperative, healthy appearing and no acute distress Orientation/consciousness: oriented to person, oriented to place, oriented to time and patient oriented x3 Limitations: no limitations HEENT: Head: Yes normocephalic and Yes atraumatic Ears: external ears normal General nose exam: Normal external nose present Face and sinus: Yes face symmetric Mouth: oropharynx normal and moist mucous membranes Throat: Yes uvula midline Eyes: Pupils: Equal, round and reactive pupils present Neck: Neck: Yes normal visual inspection and Yes supple Resp: Effort & Inspection: normal respiratory effort and able to speak in complete sentences Auscultation: clear to auscultation bilaterally Cardio: Rate: regular rate Rhythm: regular rhythm Heart sounds: S1 normal heart sound present and S2 normal heart sound present GI: Palpation (GI): Soft to palpation and nontender Auscultation: normoactive bowel sounds : General: Yes no CVA tenderness Back/Spine/Pelvis: Back: no CVA tenderness Skin: General skin exam: elasticity normal and turgor normal Neuro: General: oriented to person, oriented to place, oriented to time, patient oriented x3, moves all extremities, no focal motor deficits and CN's II-XI intact bilaterally Cranial nerves: Yes Equal, round and reactive pupils present Cognition (Neuro): normal cognition Extrem: General: Yes full ROM, Yes no pedal edema and Yes no calf tenderness Left lower extremity: lower leg Details: normal to inspection, tenderness Location: of the midshaft tibia and no edema; no erythema, no localized swelling, no palpable cords, no ecchymosis and no unusual warmth and foot Details: normal capillary refill and vascular exam Details: dorsalis pedis pulse present, posterior tibial pulse present and normal capillary refill Psych: Mental Status: mental status grossly normal Affect: normal affect Thought process: Normal thought process present Course Course Course Narrative: This is a Rapid Medical Exam performed in triage by Abby Alejandro PA-C. Full HPI, ROS and PE to be performed by primary ED provider. 64 year old [place]ambian-speaking female with a past medical history anxiety, depression, GERD, HLD, diabetes, HTN, CKD, DVT on ELiquis presenting to the ED c/o increasing L barrett pain since yesterday. denies injury/fall/trauma PE: + reproducible left anterior barrett tenderness. No deformity. Mildly swollen. Neurovascularly intact distally Plan: X-ray, ultrasound Medical Decision Making Medical Decision Making MDM Narrative: Patient Is a 64-year-old [place]ambian-speaking female status post left TKA 10 years prior presenting to the emergency department with complaint of left barrett pain since yesterday. On exam patient is awake, A+Ox3, VS WNL, afebrile, normal neurological exam without focal deficits, physical exam findings as above. Given reported symptoms and physical exam findings, initial differential includes but is not limited to disruption of hardware, DVT, muscle strain. X-ray left tib/fib notable for no evidence of fracture or disruption of hardware. Ultrsound of Left lower leg is without evidence of DVT. My interpretation is in agreement with the radiologist's interpretation. Given that patient has increased pain with palpation and ambulation, feel this is likely musculoskeletal. Will send prescription for topical lidocaine patches. All results discussed with patient and all questions answered. Advised follow up with PCP. Return precautions discussed. Patient verbalized understanding of and agreement with plan. In-person park interpreter was utilized for all interactions, assessments, and discussions. Differential Diagnosis Differential Diagnoses: The differential diagnosis associated with the presentation includes as per [facility] Admission/Observation Consideration of admission/observation: Escalation of care including admission/observation considered Patient would have been admitted to the hospital and transferred to appropriate facility had their clinical presentation warranted hospital admission. Independent Interpretation I performed an independent interpretation of an: Plain X-Ray and Ultrasound Interpretation: X-ray left tib/fib notable for no evidence of fracture or disruption of hardware. Ultrsound of Left lower leg is without evidence of DVT. Radiology Impression Discussion of test interpretation with radiology: I have reviewed the radiologist's reading. Radiologist Impression: XR/XR tibia fibula LT 2V IMPRESSION: No evidence of fracture of the left tibia or fibula. US/US venous duplex LE LT IMPRESSION: No evidence of deep venous thrombosis involving the left lower extremity. External Record Review External record reviewed: Inpatient record, Office record and Outpatient record Prescription Management I considered prescription management with: Pain Medication Discharge Plan Discharge Clinical Impression: Pain in left lower leg Patient Disposition: Home, Self-Care Instructions: Muscle Strain (DC), Leg Pain (ED) Additional Instructions: You were evaluated in the emergency department today for left lower leg pain. This is likely due to a muscle strain. Your x-ray did not show evidence of any fracture or disruption of the hardware in your leg. The ultrasound did not show evidence of a blood clot in your leg. You have been prescribed topical lidocaine patches which you can wear on for 12 hours, then off for 12 hours. Do not apply heat directly over the patches. You can also take a warm bath with Epsom salt. Follow up with your primary care provider as needed. Return to the emergency department if you develop new redness, swelling, numbness or tingling in your leg or any other new or concerning symptoms. Prescriptions: New lidocaine 5 % adhesive patch,medicated 1 patch topical DAILY Qty: 15 0RF Rx Instructions: leave on most painful area for up to 12 hrs No Action (DME) FreeStyle Jame 2 Sensor Kit See Rx Instructions .ROUTE .COMPLEX Qty: 2 2RF Dose Instruction: USE DIRECTED TO TEST BLOOD SUGAR. CHANGE EVERY 10 DAYS Rx Instructions: USE DIRECTED TO TEST BLOOD SUGAR. CHANGE EVERY 10 DAYS docusate sodium 100 mg capsule 100 mg PO BID Qty: 90 3RF (DME) FreeStyle Jame 3 [place] Misc See Rx Instructions .Route Qty: 1 0RF Rx Instructions: As directed metoprolol succinate 50 mg tablet extended release 24 hr 50 mg PO DAILY (DME) pen needle, diabetic [Comfort EZ Pen [place]] 32 gauge x 5/16 needle See Rx Instructions .Route Qty: 30 5RF Rx Instructions: As directed injects once a day atorvastatin 40 mg tablet 40 mg PO BEDTIME Qty: 90 3RF rosuvastatin 40 mg tablet 40 mg PO DAILY Qty: 30 5RF ezetimibe 10 mg tablet 10 mg PO DAILY Qty: 30 5RF oxycodone 5 mg tablet 5 mg PO Q6H PRN (Reason: pain) Qty: 20 0RF Rx Instructions: Partial Fill upon patient request. amlodipine 10 mg tablet 10 mg PO DAILY fluticasone propionate 50 mcg/actuation spray,suspension 1 spray intranasal DAILY PRN (Reason: nasal congestion) sennosides [senna] 8.6 mg tablet 8.6 mg PO DAILY Qty: 90 1RF hydrochlorothiazide 12.5 mg tablet 12.5 mg PO DAILY insulin glargine [Lantus Solostar U-100 Insulin] 100 unit/mL (3 mL) insulin pen 10 unit subcut QPM Qty: 15 1RF (DME) OneTouch Ultra Test Strip See Rx Instructions .Route Qty: 400 1RF Rx Instructions: four times dialy (DME) lancets [OneTouch Delica Plus Lancet] 33 gauge misc See Rx Instructions .Route Qty: 400 1RF Rx Instructions: four times daily (DME) blood-glucose meter [OneTouch Ultra2 Meter] Misc See Rx Instructions .ROUTE DIRECTED Qty: 1 Rx Instructions: As directed trazodone 50 mg tablet 50 - 150 mg PO BEDTIME PRN (Reason: Sleep) fluoxetine 40 mg capsule 40 mg PO DAILY lisinopril 40 mg tablet 40 mg PO DAILY (DME) FreeStyle Jame 2 [place] Misc See Rx Instructions .Route Qty: 1 0RF Rx Instructions: As directed apixaban 5 mg tablet 5 mg PO BID Qty: 90 3RF Mounjaro 7.5 mg/0.5 mL pen injector 7.5 mg subcut QWEEK Qty: 6 3RF (DME) FreeStyle Jame 3 Plus Sensor Device See Rx Instructions .Route Qty: 6 3RF Rx Instructions: every 15 days Print Language: Zambian
--- NOTE | 2025-05-04 10:57 | PC.NURSE ---
patient a&ox3, vss, pt c/o 02/11 pain to lle- states she took tylenol and oxycodone without relief at home. xr has been performe,d pt waiting on US. family at bedside, they are aware of the plan, plan of care ongoing
--- OUTSIDE RECORDS SUMMARY | 2025-05-04 12:14 | XMS_ITS | Encounter Summary ---
Author Organization [facility] Address [address] [place] [address] Phone Care Team Providers Care Assembler Camper Name Role Phone Ashkan Jacobson MD Primary Care Provider [phone] Encounter Details Date Type Department Care Team (Late st Contact Info) Description 06/19/2021 Documentation Only [facility] [place], [address] [place] [address] Macy Giraldo PA Social History [...] on filedocumented in this encounter Care Teams Assembler Camper Relationship Specialty Start Date End Date Ashkan Jacobson MD [address] [place] [address] [address] [place], [place] PCP - General 03/09/19 documented as of this encounter
--- OUTSIDE RECORDS SUMMARY | 2025-05-04 12:14 | XMS_ITS | Encounter Summary ---
Author Organization [facility] Address [address] [place] [address] Phone Care Team Providers Care Jukebox Coin Collector Name Role Phone Ashkan Jacobson MD Primary Care Provider [phone] Encounter Details Date Type Department Care Team (Late st Contact Info) Description 12/18/2021 Documentation Only [facility] [place], [address] [place] [address] Macy Giradlo PA Social History [...] on filedocumented in this encounter Care Teams Jukebox Coin Collector Relationship Specialty Start Date End Date Ashkan Jacobson MD [address] [place] [address] [address] [place], [place] PCP - General 03/09/19 documented as of this encounter
--- OUTSIDE RECORDS SUMMARY | 2025-05-04 12:14 | XMS_ITS | Encounter Summary ---
Author Organization [facility] Address [address] [place] [address] Phone Care Team Providers Care Railroad Baggage Porter Name Role Phone Ashkan Jacobson MD Primary Care Provider [phone] Encounter Details Date Type Department Care Team (Late st Contact Info) Description 01/06/2024 Documentation Only [facility] [place], [address] [place] [place] [address] Charlotte Mehta [address] [place] [address] Social History Tobacco Use Types [...] on filedocumented in this encounter Care Teams Railroad Baggage Porter Relationship Specialty Start Date End Date Ashkan Jacobson MD [address] [place] [address] [address] [place], [place] PCP - General 03/09/19 documented as of this encounter
--- OUTSIDE RECORDS SUMMARY | 2025-05-04 12:14 | XMS_ITS | Encounter Summary ---
Author Organization [facility] Address [address] [place] [address] Phone Care Team Providers Care Brigadier Name Role Phone Ashkan Jacobson MD Primary Care Provider [phone] Encounter Details Date Type Department Care Team (Late st Contact Info) Description 03/22/2021 Documentation Only [facility] [place], [address] [place] [address] Macy Giraldo PA Social History [...] on filedocumented in this encounter Care Teams Brigadier Relationship Specialty Start Date End Date Ashkan Jacobson MD [address] [place] [address] [address] [place], [place] PCP - General 03/09/19 documented as of this encounter
--- OUTSIDE RECORDS SUMMARY | 2025-05-04 12:14 | XMS_ITS | Encounter Summary ---
Author Organization [facility] Address [address] [place] [address] Phone Care Team Providers Care Texture Artist Name Role Phone Ashkan Jacobson MD Primary Care Provider [phone] Encounter Details Date Type Department Care Team (Late st Contact Info) Description 07/30/2023 Documentation Only [facility] [place], [address] [place] [address] Xochilt Crawford [place] [address] [place] [address] Social History Tobacco Use Types [...] on filedocumented in this encounter Care Teams Texture Artist Relationship Specialty Start Date End Date Ashkan Jacobson MD [address] [place] [address] [address] [place], [place] PCP - General 03/09/19 documented as of this encounter
--- OUTSIDE RECORDS SUMMARY | 2025-05-04 12:14 | XMS_ITS | Encounter Summary ---
Author Organization [facility] Address [address] [place] [address] Phone Care Team Providers Care Patient Access Representative Name Role Phone Ashkan Jacobson MD Primary Care Provider [phone] Encounter Details Date Type Department Care Team (Late st Contact Info) Description 04/04/2022 Documentation Only [facility] [place], [address] [place] [address] Macy Giraldo PA Social History [...] filedocumented in this encounter Care Teams Patient Access Representative Relationship Specialty Start Date End Date Ashkan Jacobson MD [address] [place] [address] [address] [place], [place] PCP - General 03/09/19 documented as of this encounter
--- OUTSIDE RECORDS SUMMARY | 2025-05-04 12:14 | XMS_ITS | Encounter Summary ---
Author Organization [facility] Address [address] [place] [address] Phone Care Team Providers Care Tumbler Dyeing Machine Operator Name Role Phone Ashkan Jacobson MD Primary Care Provider [phone] Encounter Details Date Type Department Care Team (Late st Contact Info) Description 08/04/2023 Documentation Only [facility] [place], [address] [place] [address] Xochilt [place] [address] [place] [address] Social History Tobacco Use Types [...] on filedocumented in this encounter Care Teams Tumbler Dyeing Machine Operator Relationship Specialty Start Date End Date Ashkan Jacobson MD [address] [place] [address] [address] [place], [place] PCP - General 03/09/19 documented as of this encounter
--- OUTSIDE RECORDS SUMMARY | 2025-05-04 12:14 | XMS_ITS | Encounter Summary ---
Author Organization [facility] Address [address] [place] [address] Phone Care Team Providers Care Anthropologist Name Role Phone Ashkan Jacobson MD Primary Care Provider [phone] Encounter Details Date Type Department Care Team (Late st Contact Info) Description 09/18/2021 Documentation Only [facility] [place], [address] [address] Macy Giraldo PA Social History [...] on filedocumented in this encounter Care Teams Anthropologist Relationship Specialty Start Date End Date Ashkan Jacobson MD [address] [place] [address] [address] [place], [place] PCP - General 03/09/19 documented as of this encounter
--- OUTSIDE RECORDS SUMMARY | 2025-05-04 12:14 | XMS_ITS | Encounter Summary ---
Author Organization [facility] Address [address] [place] [address] Phone Care Team Providers Care Floor Care Specialist Name Role Phone Ashkan Jacobson MD Primary Care Provider [phone] Encounter Details Date Type Department Care Team (Late st Contact Info) Description 08/21/2023 Documentation Only [facility] [place], [address] [place] [address] Xochilt [place] [address] [place] [address] Social History Tobacco Use Types [...] on filedocumented in this encounter Care Teams Floor Care Specialist Relationship Specialty Start Date End Date Ashkan Jacobson MD [address] [place] [address] [address] [place], [place] PCP - General 03/09/19 documented as of this encounter
--- OUTSIDE RECORDS SUMMARY | 2025-05-04 12:14 | XMS_ITS | Clinical Summary ---
Author Organization [facility] [place], Address [address] [place] [address] [place] [address] Phone Care Team Providers Care Bread Baker Name Role Phone Ashkan Jacobson MD Primary Care Provider [phone] Allergies Active Allergy Reactions Criticality Noted Date [...] AM EDT) Hemoglobin A1C 6.7(H) (4.0-5.6) % [facility] Comment: MONITORING: In known diabetic patients, hemoglobin A1c targets should be discussed with health care provider. DIAGNOSTIC USE: The [place] Diabetes Association (ADA) and the World Health [...] Supplement 1 Testing performed or reported by [facility], a Service of [facility], [address] [place] [address] Familia Britton MD, Crowning Inspector [facility]# [id number] Blood specimen (specimen) Venous blood / Unknown 02/05/2023 10:48 AM EDT 02/05/2023 10:49 AM EDT Godfrey Marcum MD LAB BLOOD ORDERABLES Final Re sult [facility] from Last 3 Months or Most Recently Relevant to Health Maintenance Insurance [facility] Care Dual SNP ([id number]) [place] [id number] [place] [id number] Care Teams Bread Baker Relationship Specialty Start Date End Date Ashkan Jacobson MD [address] [place] [address] PCP - General 03/09/19
--- OUTSIDE RECORDS SUMMARY | 2025-05-04 12:14 | XMS_ITS | Encounter Summary ---
Author Organization [facility] Address [address] [place] [address] Phone Care Team Providers Care Catalyst Concentration Operator Name Role Phone Ashkan Jacobson MD Primary Care Provider [phone] Encounter Details Date Type Department Care Team (Late st Contact Info) Description 09/28/2021 Documentation Only [facility] [place], [address] [place] [address] Mayc Giraldo PA Social History [...] on filedocumented in this encounter Care Teams Catalyst Concentration Operator Relationship Specialty Start Date End Date Ashkan Jacobson MD [address] [place] [address] [address] [place], [place] PCP - General 03/09/19 documented as of this encounter
--- OUTSIDE RECORDS SUMMARY | 2025-05-04 12:14 | XMS_ITS | Encounter Summary ---
Author Organization [facility] Address [address] [place] [address] Phone Care Team Providers Care Records Section Supervisor Name Role Phone Ashkan Jacobson MD Primary Care Provider [phone] Encounter Details Date Type Department Care Team (Late st Contact Info) Description 07/23/2023 Documentation Only [facility] [place], [address] [place] [address] Xochilt Crawford [place] [address] [place] [address] Social History Tobacco Use Types [...] on filedocumented in this encounter Care Teams Records Section Supervisor Relationship Specialty Start Date End Date Ashkan Jacobson MD [address] [place] [address] [address] [place], [place] PCP - General 03/09/19 documented as of this encounter
--- OUTSIDE RECORDS SUMMARY | 2025-05-04 12:14 | XMS_ITS | Encounter Summary ---
Author Organization [facility] Address [address] [place] [address] Phone Care Team Providers Care Drill Foreman Name Role Phone Ashkan Jacobson MD Primary Care Provider [phone] Encounter Details Date Type Department Care Team (Late st Contact Info) Description 12/19/2023 Documentation Only [facility] [place], [address] [place] [address] Xochilt Crawford [place] [address] [place] [address] Social History Tobacco Use Types [...] on filedocumented in this encounter Care Teams Drill Foreman Relationship Specialty Start Date End Date Ashkan Jacobson MD [address] [place] [address] [address] [place], [place] PCP - General 03/09/19 documented as of this encounter
--- OUTSIDE RECORDS SUMMARY | 2025-05-04 12:14 | XMS_ITS | Encounter Summary ---
Author Organization [facility] Address [address] [place] [address] Phone Care Team Providers Care Piano Case And Bench Assembler Name Role Phone Ashkan Jacobson MD Primary Care Provider [phone] Encounter Details Date Type Department Care Team (Late st Contact Info) Description 07/21/2023 Documentation Only [facility] [place], [address] [place] [address] Xochilt Crawford [place] [address] [place] [address] Social History Tobacco Use Types [...] on filedocumented in this encounter Care Teams Piano Case And Bench Assembler Relationship Specialty Start Date End Date Ashkan Jacobson MD [address] [place] [address] [address] [place], [place] PCP - General 03/09/19 documented as of this encounter
--- OUTSIDE RECORDS SUMMARY | 2025-05-04 12:14 | XMS_ITS | Encounter Summary ---
Author Organization [facility] Address [address] [place] [address] Phone Care Team Providers Care Box Spring Frame Builder Name Role Phone Ashkan Jacobson MD Primary Care Provider Encounter Details Date Type Department Care Team (Late st Contact Info) Description 08/28/2023 Documentation Only [facility] [place], [address] [place] [address] [address] [place] [address] [place] [address] Social History Tobacco Use Types [...] filedocumented in this encounter Care Teams Box Spring Frame Builder Relationship Specialty Start Date End Date Ashkan Jacobson MD [address] [place] [address] [address] [place], [place] PCP - General 03/09/19 documented as of this encounter
--- OUTSIDE RECORDS SUMMARY | 2025-05-04 12:14 | XMS_ITS | Encounter Summary ---
Author Organization [facility] Address [address] [place] [address] Phone Care Team Providers Care Associate Name Role Phone Ashkan Jacobson MD Primary Care Provider [phone] Encounter Details Date Type Department Care Team (Late st Contact Info) Description 02/17/2024 Documentation Only [facility] [place], [address] [place] [address] Xochilt Crawford [place] [address] [place] [address] Social History Tobacco Use Types [...] on filedocumented in this encounter Care Teams Associate Relationship Specialty Start Date End Date Ashkan Jacobson MD [address] [place] [address] [address] [place], [place] PCP - General 03/09/19 documented as of this encounter
--- OUTSIDE RECORDS SUMMARY | 2025-05-04 12:14 | XMS_ITS | Encounter Summary ---
Author Organization [facility] Address [address] [place] [address] Phone Care Team Providers Care Station Engineer Chief Name Role Phone Ashkan Jacobson MD Primary Care Provider [phone] Encounter Details Date Type Department Care Team (Late st Contact Info) Description 02/04/2024 Documentation Only [facility] [place], [address] [place] [address] Xochilt Crawford [place] [address] [place] [address] Social History Tobacco Use Types [...] on filedocumented in this encounter Care Teams Station Engineer Chief Relationship Specialty Start Date End Date Ashkan Jacobson MD [address] [place] [address] [address] [place], [place] PCP - General 03/09/19 documented as of this encounter
--- OUTSIDE RECORDS SUMMARY | 2025-05-04 12:14 | XMS_ITS | Encounter Summary ---
Author Organization [facility] Address [address] [place] [address] Phone Care Team Providers Care Group Sales Manager Name Role Phone Ashkan Jacobson MD Primary Care Provider [phone] Encounter Details Date Type Department Care Team (Late st Contact Info) Description 09/24/2022 Documentation Only [facility] [place], [address] [place] [address] Godfrey Marcum MD [address] [facility] [place] [address] Social History Tobacco Use Types [...] on filedocumented in this encounter Care Teams Group Sales Manager Relationship Specialty Start Date End Date Ashkan Jacobson MD [address] [place] [address] [address] [place], [place] PCP - General 03/09/19 documented as of this encounter
[2025-05-04 13:01] VITALS: BP 152/82; PULSE 78; RESP 18; TEMP 36.8; O2SAT 95
== END 2025-05-04 13:03 | disposition home or self-care (01) ==
PROVIDERS: Emergency Provider Emergency Medicine Emergency Medical Services; PCP Internal Medicine
DX: M79.662 Pain in left lower leg (principal); S86.912A Strain of unspecified muscle(s) and tendon(s) at lower leg level, left leg, initial encounter; X58.XXXA Exposure to other specified factors, initial encounter; Y93.89 Activity, other specified; Y92.89 Other specified places as the place of occurrence of the external cause; Y99.8 Other external cause status; Z79.899 Other long term (current) drug therapy; Z96.652 Presence of left artificial knee joint
CPT/HCPCS: 36415; 73590; 82565; 84520; 93971; 99284

== ENCOUNTER → 2025-05-04 10:20 | Outpatient (BNV) | payer OTHER, SELFPAY | PROVIDERS: Emergency Provider Emergency Medicine Emergency Medical Services; PCP Internal Medicine; Visit Provider Radiology Diagnostic Radiology | DX: M79.662 Pain in left lower leg (principal) | CPT/HCPCS: 73590; 93971 ==